=== PATIENT | female | born 1945 | race Hispanic/Latino ===

== ENCOUNTER 2016-06-29 06:09 | Day surgery (SDC) | payer MEDICARE ==
[2016-06-14 13:34] VITALS: BMI 29.6
[2016-06-29 06:38] LABS: ADD MANUAL DIFF? NO
[2016-06-29] MEDS ORDERED: Phenylephrine 10 mg/ml Inj ONE (06:38)
[2016-06-29] MEDS ORDERED: Iodixanol 320 MG/ML 100 ML BOTTLE IV ONE (06:38)
[2016-06-29] MEDS ORDERED: Lidocaine 2% Inj (20ml) ONE (06:38)
[2016-06-29] MEDS ORDERED: Iohexol 350mgl/ml 50 ML ONE (06:38)
[2016-06-29] MEDS ORDERED: Nitroglycerin 50mg in D5W 0 ML IV ONE (06:39)
[2016-06-29] MEDS ORDERED: Iodixanol 320 MG/ML 200 ML BOTTLE IV ONE (06:39)
[2016-06-29 06:48] LABS: BASO # 0.03 K/mm3 (0.0-2.0); BASO % 0.5 % (0.0-3.0); EOS # 0.1 (0.0-0.7); EOS % 1.7 % (1.5-5.0); GRAN # 4.02 (1.4-6.5); GRAN % 67.2 % (50.0-68.0); HEMATOCRIT 42.9 % (36.0-48.0); LYMPH # 1.4 (1.2-3.4); LYMPH % 24.1 % (22.0-35.0); MEAN CELL VOLUME 90.5 fL (80.0-105.0); MEAN CORPUSCULAR HEMOGLOBIN 30.8 pg (25.0-35.0); MEAN PLATELET VOLUME 9.1 fl (7.0-11.0); MONO # 0.4 (0.1-0.6); MONO % 6.5 % (1.0-6.0); PLATELET COUNT 237 10^3/uL (120.0-450.0); RED CELL DISTRIBUTION WIDTH 14.6 % (11.5-14.5)
[2016-06-29 06:52] LABS: BLOOD UREA NITROGEN 4 mg/dL (7-21); CALCIUM 9.3 mg/dL (8.4-10.5); CARBON DIOXIDE 28 mmol/L (21-33); CHLORIDE 100 mmol/L (98-107); CHOLESTEROL 166 mg/dL (130-200); GFR AFRICAN-AMERICAN > 60; GLUCOSE,RANDOM 94 mg/dL (70-110); SODIUM 136 mmol/L (132-148)
[2016-06-29 06:58] LABS: INR 1.07 (0.93-1.08); PARTIAL THROMBOPLASTIN TIME 29.2 Seconds (23.7-30.8)
[2016-06-29] MEDS ORDERED: Midazolam 2 MG/2 ML VIAL ONE (07:27)
--- NOTE | 2016-06-29 07:31 | HP ---
REASON FOR ADMISSION: Left heart catheterization, possible angioplasty because of abnormal stress te st. BRIEF CLINICAL HISTORY: A 70-year-old female with past medical history significant for chronic atria l fibrillation on Coumadin, complaining of chest pain off and on, underwent a stress test that shows abnormal, so patient is scheduled for cardiac catheterization after holding Coumadin for 5 days. PAST MEDICAL HISTORY: Significant for hypertension, chronic atrial fibrillation, COPD. Recent cardiac workup as follows: The patient underwent a stress test dated 06/14/2016 that showed ab normal SPECT myocardial perfusion study, partially reversible apical defect suspicious of residual is chemia, ejection fraction 37%. When comparison was made from earlier stress test 04/26/2015, previousl y noted apical defect appears smaller in the current study. The patient underwent echocardiography o n 06/01/2016 that shows no prolapse, no IHSS, ejection fraction 35%, mild to moderate aortic stenosis, aortic valve area 1.2 cm2, mild mitral regurgitation, mild tricuspid regurgitation. ALLERGIES: AZITHROMYCIN. CURRENT MEDICATIONS: Famotidine, Pepcid, albuterol, alprazolam, Xanax 0.5 mg, potassium chloride 10 mEq, metoprolol tartrate 25 mg b.i.d., lisinopril 2.5 mg daily, Lasix 40 mg daily, Cardizem 120 mg da adam, warfarin 5 mg daily, Pravachol 40 mg daily, albuterol inhaler one dose, Pulmicort Flexhaler. REVIEW OF SYSTEMS: As per HPI. PHYSICAL EXAMINATION: VITAL SIGNS: Temperature afebrile, heart rate 60, blood pressure 130/80, height of the patient 5 fee t 2 inches. Weight of the patient 162 pounds, body mass index 29.6 kg/m2. HEENT: PERRLA. Extraocular muscles intact. NECK: Supple. No carotid bruits. No thyromegaly. CHEST: Clear to auscultation. HEART: S1, S2 regular. ABDOMEN: Soft. EXTREMITIES: Clubbing and cyanosis negative. BLOOD WORKUP: Pending. IMPRESSION: Abnormal stress test, ejection fraction 37%. Echo shows ejection fraction 35%, mild to moderate aortic stenosis, cardiomyopathy not clear, possibly ischemic, chronic atrial fibrillat ion, mitral regurgitation, tricuspid regurgitation, aortic stenosis, hypertension, hyperlipidemia. RECOMMENDATION: We will give 300 mg of Plavix, 325 of aspirin, will discuss with the patient. If patient agrees, we will proceed for cardiac catheterization. Further recommendation after the ca rdiac catheterization. We will follow with you. Will discuss the benefits and alternatives. If patient agrees, will proceed for cardiac catheterizat ion. We will follow with you. Thank you, Dr. Casas, for providing us the opportunity in taking care of the patient. Mak Mendez MD cc: [id number] TT: 06/28/2016 20:19:48 filipe
[2016-06-29 07:36] VITALS: RESP 18
[2016-06-29] MEDS ORDERED: Sodium Chloride 0.9% 1,000 ML IV SCH (09:00)
[2016-06-29 09:16] VITALS: TEMP 97.4
[2016-06-29 14:03] VITALS: BP 121/91; PULSE 92; O2SAT 96
[2016-06-29] MEDS ORDERED: Albuterol-Ipratrop 3 mg / 0.5 (3 ml) UD IH STA (15:03)
[2016-06-29] MEDS ORDERED: Albuterol-Ipratrop 3 mg / 0.5 (3 ml) UD ONE (15:07)
--- NOTE | 2016-06-29 19:00 | CARD ---
APPROVED REPORT Procedure(s) performed: Left Heart Catheterization HISTORY The patient is a 70 year-old female with a history of : previous CHF, hypertension , dyslipidemia , A Fib , CMP, andabnormal stress test and Mild to moderate by Echo.. INDICATION The indication(s) include : atrial fibrillation, dyspnea. CASE TECHNIQUE The patient was brought electively to the Cardiac Catheterization Laboratory in a fasting state and was prepped and draped in a sterile manner. The left femoral groin was infiltrated with 2% Lidocaine subcutaneous anesthesia. A 6 Fr x 11 cm Cuca sheath was inserted into the left femoral artery without difficulty. Coronary angiography was performed using coronary diagnostic catheters. The left coronary system was accessed and visualized with a Diagnostic ,JL3.5,5Fr catheter. The right coronary system was accessed and visualized with a Diagnostic ,Jr 3.5,5Fr catheter. The left ventricle was accessed and visualized with a Pigtail catheter. Left ventricular/Aortic Valve gradient assessed on pullback. Left ventriculogram was performed in GEORGE projection. Closure device was deployed with a 6 Fr / 7 Fr MynxGrip without any complications. The patient tolerated the procedure well and there were no complications associated with the procedure. Vessel Analysis The patient's coronary anatomy is right dominant. The left main coronary artery is a medium size vessel without significant stenosis. The left main bifurcates to the left anterior descending and circumflex. The left anterior descending artery is a medium size vessel with diffuse calcification noted throughout this vessel and with significant stenosis. Distally diffuse disease There is a 60% stenosis in the distal segment. No focal stenosis, non flow limiting The first diagonal branch is a medium size vessel with diffuse calcification noted throughout this vessel and without significant stenosis. The second diagonal branch is a medium size vessel with diffuse calcification noted throughout this vessel and without significant stenosis. The circumflex artery is a medium size vessel with diffuse calcification noted throughout this vessel and without significant stenosis. The first obtuse marginal branch is a medium size vessel with diffuse calcification noted throughout this vessel and without significant stenosis. The right coronary artery is a medium size vessel with diffuse calcification noted throughout this vessel and without significant stenosis. The right posterior descending artery is a medium size vessel with diffuse calcification noted throughout this vessel and without significant stenosis. Left Ventricle The left ventricle is Borderline enlarged in size with moderately decreased contractility. Non-Ischemic cardiomyopathy. The left ventricular ejection fraction is estimated to be 35-40%. The left ventricular end diastolic pressure is 20 mmHg. There was no gradient across the aortic valve upon pullback. Conclusion Non obstructive CAD, Limited to very distal LAD, diffusely diseased like a thred, but no focal flow limiting stenosis noted. Moderately decreased LV Fx. EF-35-40%, EDp-20 mmof Hg Non ischemic CMP Chronic A Fib Recommendations Aggressive Medical Therapy Dig diuretic, LADARIUS, Coreg and coumadin F/U EF% in 3-6 months, if remains <35%. may consider AICD. F/u PT/INR on sunday with you. Cc; Dr. Casas
== END 2016-06-29 16:00 | disposition home or self-care (01) ==
LOC: CATH 06:09
PROVIDERS: ATTEND Internal Medicine Cardiovascular Disease
DX: I25.10 Atherosclerotic heart disease of native coronary artery without angina pectoris (principal); I42.9 Cardiomyopathy, unspecified; I48.2 Chronic atrial fibrillation; I11.0 Hypertensive heart disease with heart failure; I50.9 Heart failure, unspecified; J44.9 Chronic obstructive pulmonary disease, unspecified; I08.3 Combined rheumatic disorders of mitral, aortic and tricuspid valves; E78.5 Hyperlipidemia, unspecified; Z79.01 Long term (current) use of anticoagulants
CPT/HCPCS: 36415; 80048; 80061; 85025; 85610; 85730; 86850; 86900; 93458; 94640; 99152; C1760; C1769 ×2; C2629; J1644; J1940; J2250; J3010; J7040

== ENCOUNTER 2016-07-11 05:33 | Inpatient (IN) | payer MEDICARE, OTHER ==
[2016-07-11 05:38] VITALS: BMI 30.9
[2016-07-11] MEDS ORDERED: Albuterol-Ipratrop 3 mg / 0.5 (3 ml) UD IH STA (05:41)
--- NOTE | 2016-07-11 05:46 | ED PDOC ---
Arrival/HPI - General Time Seen by Provider: 07/11/16 05:41 Historian: Patient - History of Present Illness Narrative History of Present Illness (Text): 07/11/16 05:43 Alecia Arciniega is a 70 year old female, with a history of COPD, presents to the emergency department complaining of shortness of breath and chest pressure which began few hours prior. Patient states she used nebs at home for minimal relief. Reports symptoms are similar to previous COPD exacerbation episodes. Denies fever, chills, headache, dizziness, nausea,vomiting, diarrhea, or any other complaints at this time. Time/Duration: 1-3 hours Symptom Onset: Sudden Symptom Course: Unchanged Severity Level: Mild Activities at Onset: Light Context: Home Past Medical History - Provider Review Nursing Documentation Reviewed: Yes - Infectious Disease Hx of Infectious Diseases: None - Cardiac Hx Pacemaker: No - Pulmonary Hx Chronic Obstructive Pulmonary Disease (COPD): Yes - Neurological Hx Paralysis: No - Hematological/Oncological Hx Blood Transfusions: No - Musculoskeletal/Rheumatological Hx Musculoskeletal Disorders: No - Gastrointestinal Hx Gastrointestinal Disorders: Yes Hx Gastroesophageal Reflux: Yes - Psychiatric Hx Emotional Abuse: No Hx Physical Abuse: No Hx Substance Use: No - Surgical History Hx Angiogram: Yes Hx Cardiac Catheterization: Yes - Anesthesia Hx Anesthesia Reactions: No Hx Malignant Hyperthermia: No - Suicidal Assessment Feels Threatened In Home Enviroment: No Family/Social History - Physician Review Nursing Documentation Reviewed: Yes Family/Social History: No Known Family HX Smoking Status: Current Some Days Smoker Hx Alcohol Use: No Hx Substance Use: No Allergies/Home Meds Allergies/Adverse Reactions: Allergies azithromycin [From Zithromax] Adverse Reaction (Intermediate, Verified 06/27/16 11:22) RASH "JUST DOES NOT WORK" Home Medications: Home Meds Medication Instructions Recorded Confirmed Pravastatin Sodium [Pravachol] 40 mg PO DAILY 04/22/15 07/11/16 ALPRAZolam [Xanax] 0.5 mg PO TID PRN 04/28/15 07/11/16 Famotidine [Pepcid] 20 mg PO BID 04/28/15 07/11/16 Furosemide [Lasix] 40 mg PO DAILY PRN 04/28/15 07/11/16 Lisinopril [Zestril] 2.5 mg PO DAILY 04/28/15 07/11/16 Metoprolol Tartrate [Lopressor] 25 mg PO BID 04/28/15 07/11/16 Potassium Chloride [Klor-Con 10] 10 meq PO DAILY PRN 04/28/15 07/11/16 [id number] CD [Cardizem CD] 120 mg PO DAILY 04/28/15 07/11/16 Albuterol HFA [Ventolin HFA 90 1 puff IH Q6 PRN 06/23/15 07/11/16 mcg/actuation (8 g)] Warfarin Sodium [Jantoven] 5 mg PO Q6XW 05/14/16 07/11/16 Albuterol/Ipratropium [Duoneb 3 1 dose NEB TID 06/27/16 07/11/16 mg/0.5 mg (3 ml) UD] Budesonide [Pulmicort Flexhaler] 90 mcg IH TID 06/27/16 07/11/16 Review of Systems - Physician Review All systems were reviewed & negative as marked: Yes - Review of Systems Constitutional: Normal. absent: Fatigue, Fevers Respiratory: SOB. absent: Cough, Sputum Cardiovascular: Chest Pain (chest pressure ) Gastrointestinal: Normal. absent: Abdominal Pain, Diarrhea, Nausea, Vomiting Musculoskeletal: Normal Neurological: Normal. absent: Headache, Dizziness Psychiatric: Normal Physical Exam Vital Signs Reviewed: Yes Vital Signs Temp Pulse Resp BP Pulse Ox 07/11/16 15:00 91 H 18 127/64 95 07/11/16 13:13 97.6 F 106 H 18 119/42 L 07/11/16 13:00 116 H 18 128/70 94 L 07/11/16 12:26 117 H 148/84 07/11/16 10:48 106 H 18 119/42 L 97 07/11/16 09:34 128/83 07/11/16 07:37 97.6 F 98 H 18 123/80 94 L 07/11/16 07:15 98 H 18 130/87 93 L 07/11/16 06:15 18 07/11/16 05:50 97.5 F L 103 H 18 122/84 98 Temperature: Afebrile Blood Pressure: Normal Pulse: Regular Respiratory Rate: Normal Appearance: Positive for: Well-Appearing, Non-Toxic, Comfortable Pain Distress: None Mental Status: Positive for: Alert and Oriented X 3 - Systems Exam Head: Present: Atraumatic, Normocephalic Pupils: Present: PERRL Conjunctiva: Present: Normal Respiratory/Chest: Present: Clear to Auscultation, Good Air Exchange. No: Respiratory Distress, Accessory Muscle Use Cardiovascular: Present: Regular Rate and Rhythm, Normal S1, S2. No: Murmurs Abdomen: Present: Normal Bowel Sounds. No: Tenderness, Distention, Peritoneal Signs Upper Extremity: Present: Normal Inspection. No: Cyanosis, Edema Lower Extremity: Present: Normal Inspection. No: Edema Neurological: Present: GCS=15, CN II-XII Intact, Speech Normal, Motor Func Grossly Intact, Normal Sensory Function Skin: Present: Warm, Dry, Normal Color. No: Rashes Psychiatric: Present: Alert, Oriented x 3, Normal Insight, Normal Concentration Medical Decision Making ED Course and Treatment: 07/11/16 05:48 Impression: A 70 year old female who presents to the emergency department complaining of shortness of breath. Plan: -- EKG -- Labs, cardiac enzymes -- CXR -- Duoneb -- Solumedrol Progress Notes: 07/11/16 05:49 A-fib @ 91 bpm. case dw/ dr geiger accepts case for tel eobs 07/13/16 23:20 - Lab Interpretations Lab Results: 07/12/16 07:00 07/12/16 07:00 Lab Results 07/12/16 07:00: WBC 10.4 D, RBC 4.60, Hgb 13.8, Hct 40.7, MCV 88.5, MCH 30.0, MCHC 33.9, RDW 14.3, Plt Count 297, MPV 9.2, Gran % 86.7 H, Lymph % (Auto) 9.1 L , [place] % (Auto) 4.2, Eos % (Auto) 0.0 L, Baso % (Auto) 0.0, Gran # 9.00 H, Lymph # 0.9 L, [place] # 0.4, Eos # 0.0, Baso # 0.00, PT 19.3 H, INR 1.79 H, Sodium 135, Potassium 3.8, Chloride 96, Carbon Dioxide 30, Anion Gap 13, BUN 12 , Creatinine 0.6, Est GFR ( Amer) > 60, Est GFR (Non-Af Amer) > 60, Random Glucose 114 H, Hemoglobin A1c 6.0, Calcium 9.5, Phosphorus 4.3, Magnesium 1.6 L, Total Bilirubin 0.4, AST 31, ALT 39, Alkaline Phosphatase 58, Total Protein 6.7, Albumin 4.1, Globulin 2.6, Albumin/Globulin Ratio 1.6, Triglycerides 60, Cholesterol 168, LDL Cholesterol Direct 66, HDL Cholesterol 91 H, TSH 3rd Generation 1.5, Digoxin < 0.4 L 07/11/16 22:00: Urine Color Yellow, Urine Appearance Clear, Urine pH 6.0, Ur Specific [place] 1.010, Urine Protein Negative, Urine Glucose (UA) Negative, Urine Ketones Negative, Urine Blood Negative, Urine Nitrate Negative, Urine Bilirubin Negative, Urine Urobilinogen 1.0 H, Ur Leukocyte Esterase Negative 07/11/16 14:00: Lactate Dehydrogenase 573, Total Creatine Kinase 100, Troponin I < 0.01 07/11/16 07:00: pO2 43, VBG pH 7.34, VBG pCO2 55.0, VBG HCO3 29.7 H, VBG Total CO2 31.4 H, VBG O2 Sat (Calc) 83.8 H, VBG Base Excess 2.6 H, VBG Potassium 4.0, Glucose 108 H, Lactate 1.0, FiO2 21.0, Sodium 134.0, Chloride 102.0, Venous Blood Potassium 4.0 07/11/16 06:00: PT 15.2 H, INR 1.41 H 07/11/16 05:30: WBC 6.2, RBC 4.49, Hgb 13.9, Hct 40.7, MCV 90.6, MCH 31.0, MCHC 34.2, RDW 14.6 H, Plt Count 281, MPV 9.0, Gran % 62.3, Lymph % (Auto) 28.2, [place] % (Auto) 6.3 H, Eos % (Auto) 2.6, Baso % (Auto) 0.6, Gran # 3.87, Lymph # 1.8, [place] # 0.4, Eos # 0.2, Baso # 0.04, Sodium 136, Potassium 4.0, Chloride 98 , Carbon Dioxide 31, Anion Gap 11, BUN 9, Creatinine 0.6, Est GFR ( Amer ) > 60, Est GFR (Non-Af Amer) > 60, Random Glucose 95, Calcium 9.1, Total Bilirubin 0.7, AST 40 H, ALT 46, Alkaline Phosphatase 53, Lactate Dehydrogenase 634, Total Creatine Kinase 141, Troponin I < 0.01, NT-Pro-B Natriuret Pep 1710 H , Total Protein 6.5, Albumin 3.8, Globulin 2.7, Albumin/Globulin Ratio 1.4 - RAD Interpretation Radiology Orders: 07/11/16 05:43 CHEST PORTABLE [RAD] Stat - Medication Orders Current Medication Orders: Discontinued Medications Albuterol/Ipratropium (Duoneb 3 Mg/0.5 Mg (3 Ml) Ud) 3 ml IH STAT STA Stop: 07/11/16 05:42 Last Admin: 07/11/16 06:07 Dose: 3 ML Albuterol/Ipratropium (Duoneb 3 Mg/0.5 Mg (3 Ml) Ud) 3 ml IH [id number] PRN PRN Reason: Shortness of Breath Stop: 07/11/16 19:31 Last Admin: 07/11/16 11:30 Dose: 3 ML Alprazolam (Xanax) 0.5 mg PO STAT STA PRN Reason: Protocol Stop: 07/11/16 11:35 Last Admin: 07/11/16 11:38 Dose: 0.5 MG Behavioural Document 07/11/16 11:38 SRE (Rec: 07/11/16 11:38 SRE [facility] [id number] Maintenance Maintenance Dose No Nonmedicinal Nonmedicinal Interventions See nurse's notes Behavior Behavior for Medication: Anxiety Alprazolam (Xanax) 0.5 mg PO TID PRN; Protocol PRN Reason: Anxiety Stop: 07/18/16 12:02 Last Admin: 07/13/16 11:49 Dose: 0.5 MG Behavioural Document 07/13/16 11:49 RS (Rec: 07/13/16 11:50 RS [facility] [id number]) Maintenance Maintenance Dose Yes Atorvastatin Calcium (Lipitor) 20 mg PO DAILY [facility] Last Admin: 07/13/16 09:57 Dose: 20 MG Digoxin (Lanoxin) 0.25 mg IVP STAT STA Stop: 07/11/16 12:09 Last Admin: 07/11/16 12:24 Dose: 0.25 MG MAR Apical Pulse Rate Document 07/11/16 12:24 JOL (Rec: 07/11/16 12:25 JOL [id number]) Apical Pulse Rate Apical Pulse Rate (60-90 beats/min) 117 IVP Administration Document 07/11/16 12:24 JOL (Rec: 07/11/16 12:25 [id number] [id number]) Charges for Administration # of IVP Administrations 1 Digoxin (Lanoxin) 0.25 mg PO 1400 [facility] Last Admin: 07/12/16 14:32 Dose: 0.25 MG MAR Apical Pulse Rate Document 07/12/16 14:32 HD (Rec: 07/12/16 14:32 HD [facility] [id number]) Apical Pulse Rate Apical Pulse Rate (60-90 beats/min) 98 Diltiazem HCl (Cardizem Cd) 120 mg PO DAILY [facility] Last Admin: 07/13/16 09:57 Dose: 120 MG MAR Pulse and Blood Pressure Document 07/13/16 09:57 RS (Rec: 07/13/16 09:57 RS [facility] [id number]) Blood Pressure Blood Pressure (100/60-150/90) 149/100 Doxycycline Hyclate (Doryx) 100 mg PO Q12 [facility] PRN Reason: Protocol Last Admin: 07/13/16 09:57 Dose: 100 MG Enoxaparin Sodium (Lovenox) 70 mg SC Q12H [facility] PRN Reason: Protocol Stop: 07/12/16 02:00 Last Admin: 07/12/16 00:00 Dose: 70 MG Subcutaneous Administrations Document 07/12/16 00:00 LGA (Rec: 07/12/16 00:00 LGA [id number]) Injection Site MAR Injection Site Left Abdomen Charges for Administration # of Subcutaneous Administrations 1 Famotidine (Pepcid) 20 mg PO BID [facility] Last Admin: 07/13/16 09:57 Dose: 20 MG Furosemide (Lasix) 40 mg IVP Q12 [facility] Last Admin: 07/12/16 10:51 Dose: 40 MG MAR Blood Pressure Document 07/12/16 10:51 HD (Rec: 07/12/16 10:51 HD [facility] [id number]) Blood Pressure Blood Pressure (100/60-150/90) 143/5 IVP Administration Document 07/12/16 10:51 HD (Rec: 07/12/16 10:51 HD [facility] [id number]) Charges for Administration # of IVP Administrations 1 Furosemide (Lasix) 40 mg IVP 0600,1800 [facility] Last Admin: 07/13/16 06:17 Dose: 40 MG MAR Blood Pressure Document 07/13/16 06:17 KTB (Rec: 07/13/16 06:17 KTB [id number]) Blood Pressure Blood Pressure (100/60-150/90) 149/100 IVP Administration Document 07/13/16 06:17 KTB (Rec: 07/13/16 06:17 KTB [id number]) Charges for Administration # of IVP Administrations 1 Furosemide (Lasix) 40 mg PO DAILY [facility] Levalbuterol HCl (Xopenex) 0.63 mg IH [id number] PRN PRN Reason: Shortness of Breath Last Admin: 07/13/16 13:37 Dose: 0.63 MG Lisinopril (Zestril) 2.5 mg PO DAILY [facility] Last Admin: 07/13/16 09:57 Dose: 2.5 MG MAR Pulse and Blood Pressure Document 07/13/16 09:57 RS (Rec: 07/13/16 09:57 RS [facility] [id number]) Pulse Pulse Rate (60-90) 86 Blood Pressure Blood Pressure (100/60-150/90) 149/100 Magnesium Citrate (Citrate Of Mag) 300 ml PO ONCE ONE Stop: 07/12/16 09:04 Last Admin: 07/12/16 10:51 Dose: 300 ML Magnesium Oxide (Mag-Ox) 400 mg PO ONCE ONE Stop: 07/12/16 13:22 Last Admin: 07/12/16 14:31 Dose: 400 MG Magnesium Oxide (Mag-Ox) 400 mg PO ONCE ONE Stop: 07/13/16 10:41 Last Admin: 07/13/16 11:15 Dose: 400 MG Methylprednisolone (Solu-Medrol) 125 mg IVP STAT STA Stop: 07/11/16 05:42 Last Admin: 07/11/16 06:07 Dose: 125 MG IVP Administration Document 07/11/16 06:07 ANNIE (Rec: 07/11/16 06:07 ANNIE [facility] [id number]) Charges for Administration # of IVP Administrations 1 Methylprednisolone (Solu-Medrol) 40 mg IVP Q12 [facility] Last Admin: 07/13/16 09:58 Dose: 40 MG IVP Administration Document 07/13/16 09:58 RS (Rec: 07/13/16 09:58 RS [id number]) Charges for Administration # of IVP Administrations 1 Metoprolol Tartrate (Lopressor) 25 mg PO BID [facility] Last Admin: 07/13/16 09:56 Dose: 25 MG MAR Pulse and Blood Pressure Document 07/13/16 09:56 RS (Rec: 07/13/16 09:57 RS [id number]) Pulse Pulse Rate (60-90) 86 Blood Pressure Blood Pressure (100/60-150/90) 149/100 Pneumococcal Polyvalent Vaccine (Pneumovax 23 Vaccine) 0.5 ml IM .ONCE ONE Stop: 07/11/16 13:23 Last Admin: 07/12/16 07:43 Dose: Warfarin Sodium (Coumadin) 4 mg PO 1800 NORA PRN Reason: Protocol Warfarin Sodium (Coumadin) 5 mg PO 1800 NORA PRN Reason: Protocol Last Admin: 07/12/16 17:21 Dose: 5 MG - [place] Statement The provider has reviewed the documentation as recorded by the Niraj Goodwin Provider Attestation: All medical record entries made by the Niraj were at my direction and personally dictated by me. I have reviewed the chart and agree that the record accurately reflects my personal performance of the history, physical exam, medical decision making, and the department course for this patient. I have also personally directed, reviewed, and agree with the discharge instructions and disposition. Disposition/Present on Arrival - Present on Arrival Any Indicators Present on Arrival: No History of DVT/PE: No History of Uncontrolled Diabetes: No Urinary Catheter: No History Surgical Site Infection Following: None - Disposition Have Diagnosis and Disposition been Completed?: Yes Diagnosis: COPD (chronic obstructive pulmonary disease) Disposition: HOSPITALIZED Disposition Time: 07:30 Patient Problems: Current Active Problems Problem Status Diagnosed Anxiety Acute CHF (congestive heart failure) Chronic COPD (chronic obstructive pulmonary disease) Chronic Condition: GOOD
[2016-07-11 06:14] LABS: ADD MANUAL DIFF? NO
[2016-07-11 06:23] LABS: BASO # 0.04 K/mm3 (0.0-2.0); BASO % 0.6 % (0.0-3.0); EOS # 0.2 (0.0-0.7); EOS % 2.6 % (1.5-5.0); GRAN # 3.87 (1.4-6.5); GRAN % 62.3 % (50.0-68.0); HEMATOCRIT 40.7 % (36.0-48.0); LYMPH # 1.8 (1.2-3.4); LYMPH % 28.2 % (22.0-35.0); MEAN CELL VOLUME 90.6 fL (80.0-105.0); MEAN CORPUSCULAR HGB CONC 34.2 g/dl (31.0-37.0); MONO # 0.4 (0.1-0.6); MONO % 6.3 % (1.0-6.0); PLATELET COUNT 281 10^3/uL (120.0-450.0); RED CELL DISTRIBUTION WIDTH 14.6 % (11.5-14.5); WHITE BLOOD COUNT 6.2 10^3/ul (4.5-11.0)
[2016-07-11 06:28] LABS: ALB/GLOB RATIO 1.4 (1.1-1.8); ALKALINE PHOSPHATASE 53 U/L (38-133); ALT/SGPT 46 U/L (7-56); AST/SGOT 40 U/L (15-39); BILIRUBIN,TOTAL 0.7 mg/dL (0.2-1.3); BLOOD UREA NITROGEN 9 mg/dL (7-21); CALCIUM 9.1 mg/dL (8.4-10.5); CARBON DIOXIDE 31 mmol/L (21-33); CHLORIDE 98 mmol/L (98-107); GFR AFRICAN-AMERICAN > 60; GLUCOSE,RANDOM 95 mg/dL (70-110); SODIUM 136 mmol/L (132-148); TOTAL PROTEIN 6.5 g/dL (5.8-8.3)
[2016-07-11 07:07] LABS: TROPONIN I < 0.01 ng/mL
[2016-07-11 07:25] LABS: VENOUS BLOOD GAS BASE EXCESS 2.6 mmol/L (0.0-2.0); VENOUS BLOOD PH 7.34 (7.32-7.43)
--- NOTE | 2016-07-11 08:19 | CP.PCM.HP ---
<Amado Mayes - Last Filed: 07/11/16 08:42> History of Present Illness - History of Present Illness History of Present Illness: Alecia Arciniega is a 70 year old female, with a history of COPD, CHF, Afib presents to the emergency department complaining of shortness of breath and chest pressure which began few hours prior. It woke her up this morning. Patient states she used nebs and Ventolin at home for minimal relief. Reports symptoms are similar to previous COPD exacerbation episodes. She also reports pedal edema that started a few days ago and took Lasix yesterday. Denies fever, chills, headache, dizziness, nausea,vomiting, diarrhea, syncopy, LOC or any other complaints at this time. She recently had cardiac catherization shows , non occlusive CAD on LAD, EF 35-40%. PMH: Afib, COPD, CHF PSH: L lung resection for nodule SS: Lives at home by herself, Smoker, occasional drinker PMD: Mutterperl Cario: Andrea Pulm: Adriana Present on Admission - Present on Admission Any Indicators Present on Admission: No Review of Systems - Review of Systems Review of Systems: See HPI Past Patient History - Infectious Disease Hx of Infectious Diseases: None - Past Medical History & Family History Past Medical History?: Yes - Past Social History Smoking Status: Current Some Days Smoker - CARDIAC Hx Pacemaker: No - PULMONARY Hx Chronic Obstructive Pulmonary Disease (COPD): Yes - NEUROLOGICAL Hx Paralysis: No - HEMATOLOGICAL/ONCOLOGICAL Hx Blood Transfusions: No - MUSCULOSKELETAL/RHEUMATOLOGICAL Hx Musculoskeletal Disorders: No - GASTROINTESTINAL Hx Gastrointestinal Disorders: Yes Hx Gastroesophageal Reflux: Yes - PSYCHIATRIC Hx Emotional Abuse: No Hx Physical Abuse: No Hx Substance Use: No - SURGICAL HISTORY Hx Angiogram: Yes Hx Cardiac Catheterization: Yes - ANESTHESIA Hx Anesthesia Reactions: No Hx Malignant Hyperthermia: No Meds Allergies/Adverse Reactions: Allergies Allergy/AdvReac Type Severity Reaction Status Date / Time azithromycin [From Zithromax] AdvReac Intermediate RASH Verified 06/27/16 11:22 Physical Exam - Constitutional Appears: No Acute Distress - Head Exam Head Exam: ATRAUMATIC, NORMAL INSPECTION, NORMOCEPHALIC - Eye Exam Eye Exam: EOMI, Normal appearance, PERRL Pupil Exam: NORMAL ACCOMODATION, PERRL - ENT Exam ENT Exam: Mucous Membranes Moist, Normal Exam - Neck Exam Neck exam: Positive for: Normal Inspection - Respiratory Exam Respiratory Exam: Clear to Auscultation Bilateral, NORMAL BREATHING PATTERN - Cardiovascular Exam Cardiovascular Exam: REGULAR RHYTHM - GI/Abdominal Exam GI & Abdominal Exam: Normal Bowel Sounds, Soft. absent: Tenderness - Extremities Exam Extremities exam: Positive for: full ROM, normal capillary refill, pedal edema, pedal pulses present. Negative for: tenderness - Back Exam Back exam: NORMAL INSPECTION - Neurological Exam Neurological exam: Alert, CN II-XII Intact, Normal Gait, Oriented x3, Reflexes Normal - Psychiatric Exam Psychiatric exam: Normal Affect, Normal Mood - Skin Skin Exam: Dry, Intact, Normal Color, Warm Results - Vital Signs Recent Vital Signs: Last Vital Signs Temp 97.6 F 07/11/16 07:37 Pulse 98 H 07/11/16 07:37 Resp 18 07/11/16 07:37 BP 123/80 07/11/16 07:37 Pulse Ox 94 L 07/11/16 07:37 - Labs Result Diagrams: 07/11/16 05:30 07/11/16 05:30 Assessment & Plan - Assessment and Plan (Free Text) Assessment: SOB h/o COPD and CHF CXR: No acute disease EKG: Afib O2sat : 93-98% AB.34/55/43/29.7 -Duoneb PRN -O2 NC -Ventolin -Pulmocort -Hydrocortisone -Lasix -Labs -Cardio c/s: Dr. Mendez -Pulm c/s : Dr. Wright AFib -Coumadin -Cardizem CAD -Statin HTN -Lopressor -Lisinopril Anxiety -Xanax ppx: Pepcid, Coumadin, HHD <Shonda Rodriguez B - Last Filed: 07/12/16 17:49> Results - Vital Signs Recent Vital Signs: Last Vital Signs Temp 97.7 F 07/12/16 12:00 Pulse 102 H 07/12/16 12:00 Resp 21 07/12/16 12:00 BP 143/86 07/12/16 12:00 Pulse Ox 96 07/12/16 06:00 - Labs Result Diagrams: 07/12/16 07:00 07/12/16 07:00 Labs: Laboratory Results - last 24 hr 07/11/16 07/12/16 22:00 07:00 WBC 10.4 D RBC 4.60 Hgb 13.8 Hct 40.7 MCV 88.5 MCH 30.0 MCHC 33.9 RDW 14.3 Plt Count 297 MPV 9.2 Gran % 86.7 H Lymph % (Auto) 9.1 L Al[place] % (Auto) 4.2 Eos % (Auto) 0.0 L Baso % (Auto) 0.0 Gran # 9.00 H Lymph # 0.9 L Alpine # 0.4 Eos # 0.0 Baso # 0.00 PT 19.3 H INR 1.79 H Sodium 135 Potassium 3.8 Chloride 96 Carbon Dioxide 30 Anion Gap 13 BUN 12 Creatinine 0.6 Est GFR ( Amer) > 60 Est GFR (Non-Af Amer) > 60 Random Glucose 114 H Hemoglobin A1c 6.0 Calcium 9.5 Phosphorus 4.3 Magnesium 1.6 L Total Bilirubin 0.4 AST 31 ALT 39 Alkaline Phosphatase 58 Total Protein 6.7 Albumin 4.1 Globulin 2.6 Albumin/Globulin Ratio 1.6 Triglycerides 60 Cholesterol 168 LDL Cholesterol Direct 66 HDL Cholesterol 91 H TSH 3rd Generation 1.5 Urine Color Yellow Urine Appearance Clear Urine pH 6.0 Ur Specific [place] 1.010 Urine Protein Negative Urine Glucose (UA) Negative Urine Ketones Negative Urine Blood Negative Urine Nitrate Negative Urine Bilirubin Negative Urine Urobilinogen 1.0 H Ur Leukocyte Esterase Negative Digoxin < 0.4 L Attending/Attestation - Attestation I have personally seen and examined this patient.: Yes I have fully participated in the care of the patient.: Yes I have reviewed all pertinent clinical information: Yes Notes (Text): I have seen and examined the patient with the resident. This is 70 year old female with history of copd, chf, chronic atrial fibrillation, non obstructive cad who got admitted for shortness of breath and found to have copd exacerbation vs anxiety. Continue xopenex, solumedrol and doxycycline. Her INR is subtherapeutic. Cardiology consult appreciated. Patient will be started on lovenox and coumadin. Continue cardizem, digoxin, lisinopril and lopressor. Upon discharge patient will follow up with Dr Parker and Dr Mendez. Dr Shonda Rodriguez
[2016-07-11] MEDS ORDERED: Albuterol-Ipratrop 3 mg / 0.5 (3 ml) UD IH PRN (08:31)
--- NOTE | 2016-07-11 08:58 | RAD ---
HISTORY: Shortness of breath COMPARISON: No prior. FINDINGS: LUNGS: The lungs are hyperinflated and there is peribronchial thickening with chronic changes in both lungs. There is no focal consolidation. PLEURA: No significant pleural effusion identified, no pneumothorax apparent. CARDIOVASCULAR: Normal. OSSEOUS STRUCTURES: No significant abnormalities. VISUALIZED UPPER ABDOMEN: Normal. OTHER FINDINGS: None. IMPRESSION: No active pulmonary disease. COPD.
--- NOTE | 2016-07-11 12:01 | CARD ---
APPROVED REPORT EKG Measurement Heart [id number] <Conclusion> Atrial fibrillation Abnormal ECG
[2016-07-11] MEDS ORDERED: Digoxin 500 mcg/2ml (0.5 mg/2ml) Inj IVP STA (12:08)
[2016-07-11 12:20] LABS: INR 1.41 (0.93-1.08)
[2016-07-11] MEDS: diltiaZEM 120 mg/24 Hours CD Cap PO SCH (12:26)
[2016-07-11] MEDS: Enoxaparin 80 mg Syringe SC SCH ×2 (12:52→14:42)
--- NOTE | 2016-07-11 12:56 | CON ---
DATE: 07/11/2016 SERVICE: Cardiology. REASON FOR CONSULTATION: Shortness of breath, chest pain. BRIEF CLINICAL HISTORY: A 70-year-old female with past medical history significant for COPD, CHF, ch ronic atrial fibrillation, recently had a cardiac catheterization done, nonobstructive coronary arter y disease, cardiomyopathy. The patient said that this morning she woke up with shortness of breath, used a Ventolin inhaler and nebulizer with minimal relief, got nervous so came to the Emergency Room because since she had a cardiac catheterization done, and was told heart muscle was weak, she is very nervous and thinks she is going to . That is why she came to the Emergency Room. Denies any richard st pain, but she claims that with shortness of breath, she feels some chest discomfort, no definite c hest pain. Complained of mild leg swelling as well. PAST MEDICAL HISTORY: Significant for chronic atrial fibrillation on Coumadin, hypertension, COPD. Recent cardiac workup as follows: The patient had a stress test first dated 06/14/2016 that shows abn ormal SPECT myocardial perfusion study, suspicious for ischemia, ejection fraction 37%. The patient had echocardiography 06/01/2016 that shows no prolapse, no IHSS, ejection fraction 35%, mild to moderat e aortic stenosis, valve area 1.2 cm2, mild mitral regurgitation, mild tricuspid regurgitation. That stress test led to the cardiac catheterization dated 06/29/2016 that showed nonobstructive coronary ar kyung disease, limited only to distal LAD, diffusely diseased like a thread, but no focal flow-limitin g stenosis noted. Moderately decreased LV ejection fraction 35%-40%, EDP, end diastolic pressure 20 m mHg, nonischemic CMP, chronic atrial fibrillation, also left ventriculogram ejection fraction of 35%- 40%, left ventricular end diastolic pressure was 20. There was no gradient across the aortic valve o n pullback noted, though with the echo showing mild to moderate aortic stenosis, but on cardiac joshua terization, no gradient across aortic valve noted. At that time, recommendation was made to put aggr essive medical therapy, digoxin, diuretic, LADARIUS inhibitors, Coreg, and Coumadin for atrial fibrillatio n and follow up echo in 3-6 months recommended. If the echo remains still 35%, may consider AICD. T his was recommendation dated 06/29/2016. ALLERGIES: AZITHROMYCIN. CURRENT MEDICATIONS: Famotidine, Pepcid, albuterol, Xanax 0.25 mg 3 times a day, potassium chloride 10 mEq daily, metoprolol tartrate 25 mg twice a day, lisinopril 2.5 mg daily, Lasix 40 mg daily, Card izem 120 mg daily, Coumadin 5 mg daily, Pravachol 40 mg daily, albuterol inhaler 1 dose and Pulmicort inhaler p.r.n. REVIEW OF SYSTEMS: As per HPI. PHYSICAL EXAMINATION: VITAL SIGNS: Temperature afebrile, heart rate 106, blood pressure 119/42. HEENT: PERRLA. Extraocular muscles intact. NECK: Supple. No carotid bruits. No thyromegaly. CHEST: Clear to auscultation. HEART: S1, S2 irregular. ABDOMEN: Soft. EXTREMITIES: Clubbing, cyanosis negative. EKG shows atrial fibrillation, rate of 91. BLOOD WORKUP: WBC 6.2, hemoglobin 13.9, hematocrit 40.7, platelet count 281. Chemistry shows sodium 136, potassium 4, chloride 98, carbon dioxide 31, anion gap of 11, BUN 9, creatinine 0.6, INR not do ne. IMPRESSION: Atrial fibrillation, chronic, rate well controlled, exacerbation of chronic obstructive pulmonary disease, leg edema, cardiomyopathy, nonischemic, status post cardiac catheterization 06/30/19 17, nonobstructive coronary artery disease only limited to very distal left anterior descending, diff usely diseased, but no focal flow-limiting stenosis noted, mild aortic stenosis by echo, but on cath, no gradient across aortic valve noted, mitral regurgitation, tricuspid regurgitation, cardiomyopathy , ejection fraction 35%, chronic obstructive pulmonary disease, nervous patient on Xanax. RECOMMENDATION: We will do a stat PT/INR to adjust the dose of Coumadin. We will discontinue albute rol inhaler to prevent from going into tachycardia. The patient's heart rate is 120 now. Change to Xopenex. Change Primacor to atorvastatin. Continue Lasix as ordered by resident. Start lisinopril, Cardizem 120 mg, metoprolol, give a dose of digoxin IV and start digoxin 0.25 from this afternoon to control the heart rate. We will get echo to assess LV function again and follow up with you. Aggre ssively treat COPD. Will follow with you. Thank you, Dr. Casas/Dr. Shonda Rodriguez, for providing the opportunity in taking care of this patie nt. We will follow. Mak Mendez MD cc: [id number] TT: 07/11/2016 12:55:44 Confirmation # [id number] Dictation # [id number] rn
[2016-07-11] MEDS ORDERED: Pneumococcal 23-Valent Vaccine IM ONE (13:22)
[2016-07-11] MEDS: Digoxin 250 mcg (0.25 mg) Tab PO SCH (14:21)
[2016-07-11 15:46] LABS: TROPONIN I < 0.01 ng/mL
[2016-07-11] MEDS: Levalbuterol 0.63 MG/3 ML Inhal Soln UD IH PRN (18:00)
[2016-07-11] MEDS: MethylPREDNISolone 40 mg Vial IVP SCH (22:01)
[2016-07-11 22:22] LABS: URINE BILIRUBIN NEGATIVE (NEGATIVE); URINE BLOOD NEGATIVE (NEGATIVE); URINE GLUCOSE (UA) NEGATIVE (NEGATIVE); URINE KETONE NEGATIVE (NEGATIVE); URINE LEUKOCYTE ESTERASE NEGATIVE Leu/uL (NEGATIVE); URINE PROTEIN NEGATIVE mg/dL (<30 mg/dL)
[2016-07-11 22:27] LABS: URINE APPEARANCE CLEAR (CLEAR); URINE COLOR YELLOW (YELLOW)
[2016-07-12] MEDS: Enoxaparin 80 mg Syringe SC SCH
[2016-07-12] MEDS: Levalbuterol 0.63 MG/3 ML Inhal Soln UD IH PRN ×4 (00:02→18:45)
[2016-07-12] MEDS ORDERED: Pantoprazole 40 mg EC Tab PO SCH (06:30)
[2016-07-12 08:19] LABS: ADD MANUAL DIFF? NO
[2016-07-12 08:23] LABS: GRAN % 86.7 % (50.0-68.0); HEMATOCRIT 40.7 % (36.0-48.0); LYMPH # 0.9 (1.2-3.4); LYMPH % 9.1 % (22.0-35.0); MEAN CELL VOLUME 88.5 fL (80.0-105.0); MEAN CORPUSCULAR HGB CONC 33.9 g/dl (31.0-37.0); MEAN PLATELET VOLUME 9.2 fl (7.0-11.0); MONO # 0.4 (0.1-0.6); MONO % 4.2 % (1.0-6.0); PLATELET COUNT 297 10^3/uL (120.0-450.0); RED CELL DISTRIBUTION WIDTH 14.3 % (11.5-14.5); WHITE BLOOD COUNT 10.4 10^3/ul (4.5-11.0)
[2016-07-12 08:32] LABS: INR 1.79 (0.93-1.08)
[2016-07-12 08:42] LABS: ALB/GLOB RATIO 1.6 (1.1-1.8); ALKALINE PHOSPHATASE 58 U/L (38-133); ALT/SGPT 39 U/L (7-56); AST/SGOT 31 U/L (15-39); BILIRUBIN,TOTAL 0.4 mg/dL (0.2-1.3); BLOOD UREA NITROGEN 12 mg/dL (7-21); CALCIUM 9.5 mg/dL (8.4-10.5); CARBON DIOXIDE 30 mmol/L (21-33); CHLORIDE 96 mmol/L (95-110); CHOLESTEROL 168 mg/dL (130-200); GFR AFRICAN-AMERICAN > 60; GLUCOSE,RANDOM 114 mg/dL (70-110); MAGNESIUM 1.6 mg/dL (1.7-2.2); PHOSPHOROUS 4.3 mg/dL (2.5-4.5); POTASSIUM 3.8 mmol/L (3.6-5.0); SODIUM 135 mmol/L (132-148); TOTAL PROTEIN 6.7 g/dL (5.8-8.3)
[2016-07-12] MEDS ORDERED: Magnesium Citrate Oral SOL (300 ml) PO ONE (09:03)
--- NOTE | 2016-07-12 10:38 | PN ---
DATE: 07/12/2016 REASON FOR CONSULTATION AND FOLLOWUP: Shortness of breath, acute exacerbation of COPD, atypical richard st pain. BRIEF CLINICAL HISTORY: This is a 70-year-old female with past medical history significant for COPD, CHF, chronic atrial fibrillation, nonischemic cardiomyopathy, status post recently cardiac catheteri zation, nonobstructive coronary artery disease, admitted with COPD exacerbation. The patient feels b [place]. Also, complained of swelling of the leg. PHYSICAL EXAMINATION: VITAL SIGNS: Temperature afebrile, heart rate 98, blood pressure 143/95. HEENT: PERRLA. Extraocular muscles intact. NECK: Supple. No carotid bruits. No thyromegaly. CHEST: Clear to auscultation. HEART: S1, S2 regular. ABDOMEN: Soft. EXTREMITIES: Clubbing and cyanosis negative. BLOOD WORKUP: WBC 10.4, hemoglobin 13.8, hematocrit 40.7, platelet count 297. Chemistry: Sodium 13 5, potassium 3.____, chloride 96, carbon dioxide 30, anion gap of 13, BUN 12, creatinine 0.6. TSH 1. 5. Troponin negative. IMPRESSION: Atypical chest pain, status post cardiac catheterization recently, nonobstructive gonzalez ry artery disease, nonischemic cardiomyopathy; chronic atrial fibrillation, acute exacerbation of chr onic obstructive pulmonary disease; cardiomyopathy, nonischemic. RECOMMENDATION: Continue digoxin, diuretic, LADARIUS inhibitors. Discontinue telemetry. Continue aggres sive treatment for COPD. Will follow with you. INR 1.79; two doses of Lovenox was given as a bridge and resume back Coumadin. Will follow with you. Thank you, Dr. Shonda Rodriguez, for providing the opportunity in taking care of this patient. Will brown w with you. Mak Mendez MD cc: [id number] TT: 07/12/2016 10:37:33 Confirmation # [id number] Dictation # [id number] johanne
[2016-07-12] MEDS: diltiaZEM 120 mg/24 Hours CD Cap PO SCH (10:50)
[2016-07-12] MEDS: MethylPREDNISolone 40 mg Vial IVP SCH ×2 (10:50→21:18)
[2016-07-12] MEDS ORDERED: Magnesium Oxide 400 mg Tab UD PO ONE (13:21)
[2016-07-12] MEDS: Digoxin 250 mcg (0.25 mg) Tab PO SCH (14:32)
[2016-07-12 14:33] VITALS: PULSE 98
--- NOTE | 2016-07-12 17:43 | CARD ---
APPROVED REPORT EXAM: Two-dimensional and M-mode echocardiogram with Doppler and color Doppler. INDICATION LVFX 2D DIMENSIONS Left Atrium (2D)5.0 (1.6-4.0cm)IVSd1.2 (0.7-1.1cm) LVDd4.9 (3.9-5.9cm)PWd1.1 (0.7-1.1cm) LVDs3.6 (2.5-4.0cm)FS (%) 25.8 % LVEF (%)45.0 (>50%) M-Mode DIMENSIONS Aortic Root2.90 (2.2-3.7cm)Aortic Cusp Exc.1.40 (1.5-2.0cm) Aortic Valve AoV Peak Jacxbnww592.0cm/sAoV VTI31.2cmAO Peak GR.16mmHg LVOT Peak Stsjqshf60.5cm/sLVOT VTI13.80cmAO Mean GR.8mmHg Mitral Valve E/A ratio0.0 TDI E/Lateral E'0.0E/Medial E'0.0 Pulmonary Valve PV Peak Oqxkecrf48.1cm/sPV Peak Grad.1mmHg Tricuspid Valve TR Peak Fiaeybor533np/sRAP [id number] Peak Gr.36mmHg [id number] LEFT VENTRICLE The left ventricle is normal size. There is borderline concentric left ventricular hypertrophy. The systolic function is mildly impaired. No left ventricle thrombus noted on this study. RIGHT VENTRICLE The right ventricle is normal size. There is normal right ventricular wall thickness. The right ventricular systolic function is normal. ATRIA The left atrium is moderately dilated. The right atrium is mildly dilated. AORTIC VALVE The aortic valve is not well visualized. MITRAL VALVE Mitral regurgitation is mild. TRICUSPID VALVE There is mild tricuspid regurgitation. There is mild pulmonary hypertension. GREAT VESSELS The aortic root is normal in size. The IVC is normal in size and collapses >50% with inspiration. PERICARDIAL EFFUSION There is a trace loculated anterior pericardial effusion. <Conclusion> The left ventricle is normal size. There is borderline concentric left ventricular hypertrophy. The systolic function is mildly impaired. Mitral regurgitation is mild. There is mild tricuspid regurgitation. There is mild pulmonary hypertension.
--- NOTE | 2016-07-12 18:53 | CP.PCM.PN ---
<Franci Whittington - Last Filed: 07/12/16 18:42> Subjective - Date & Time of Evaluation Date of Evaluation: 07/12/16 Time of Evaluation: 18:43 - Subjective Subjective: HOSPITALIST PROGRESS NOTE Pt is seen and examined at bedside. Pt is getting a breathing treatment during the exam. She denies having any SOB, CP, abd pain, N/V/D/C. Pt is tolerating diet. Objective - Vital Signs/Intake and Output Vital Signs (last 24 hours): Temp Pulse Resp BP Pulse Ox 97.7 F 102 H 21 143/86 96 07/12/16 12:00 07/12/16 12:00 07/12/16 12:00 07/12/16 12:00 07/12/16 06:00 Intake and Output: 07/12/16 07/12/16 06:59 18:59 Intake Total 660 Output Total 300 Balance 360 - Medications Medications: Current Medications Alprazolam (Xanax) 0.5 mg PO TID PRN; Protocol PRN Reason: Anxiety Stop: 07/18/16 12:02 Last Admin: 07/12/16 18:03 Dose: 0.5 mg Atorvastatin Calcium (Lipitor) 20 mg PO DAILY [facility] Last Admin: 07/12/16 10:50 Dose: 20 mg Digoxin (Lanoxin) 0.25 mg PO 1400 [facility] Last Admin: 07/12/16 14:32 Dose: 0.25 mg Diltiazem HCl (Cardizem Cd) 120 mg PO DAILY [facility] Last Admin: 07/12/16 10:50 Dose: 120 mg Doxycycline Hyclate (Doryx) 100 mg PO Q12 [facility] PRN Reason: Protocol Last Admin: 07/12/16 10:51 Dose: 100 mg Famotidine (Pepcid) 20 mg PO BID [facility] Last Admin: 07/12/16 17:20 Dose: 20 mg Furosemide (Lasix) 40 mg IVP Q12 [facility] Last Admin: 07/12/16 10:51 Dose: 40 mg Levalbuterol HCl (Xopenex) 0.63 mg IH [id number] PRN PRN Reason: Shortness of Breath Last Admin: 07/12/16 11:39 Dose: 0.63 mg Lisinopril (Zestril) 2.5 mg PO DAILY [facility] Last Admin: 07/12/16 10:50 Dose: 2.5 mg Methylprednisolone (Solu-Medrol) 40 mg IVP Q12 [facility] Last Admin: 07/12/16 10:50 Dose: 40 mg Metoprolol Tartrate (Lopressor) 25 mg PO BID [facility] Last Admin: 07/12/16 17:21 Dose: 25 mg Warfarin Sodium (Coumadin) 5 mg PO 1800 [facility] PRN Reason: Protocol Last Admin: 07/12/16 17:21 Dose: 5 mg - Labs Labs: 07/12/16 07:00 07/12/16 07:00 PT 19.3 Seconds (9.9-11.8) H 07/12/16 07:00 INR 1.79 (0.93-1.08) H 07/12/16 07:00 - Constitutional Appears: Non-toxic, No Acute Distress - Head Exam Head Exam: ATRAUMATIC - ENT Exam ENT Exam: Mucous Membranes Moist - Respiratory Exam Respiratory Exam: Wheezes (diffusely ). absent: Accessory Muscle Use, Respiratory Distress - Cardiovascular Exam Cardiovascular Exam: REGULAR RHYTHM, +S1, +S2. absent: Gallop, Rubs, Murmur - GI/Abdominal Exam GI & Abdominal Exam: Soft, Normal Bowel Sounds. absent: Distended, Firm, Guarding, Rigid, Tenderness - Extremities Exam Extremities Exam: absent: Pedal Edema, Tenderness - Neurological Exam Neurological Exam: Alert, Awake, Oriented x3 - Psychiatric Exam Psychiatric exam: Normal Affect, Normal Mood - Skin Skin Exam: Dry, Intact, Normal Color, Warm Assessment and Plan - Assessment and Plan (Free Text) Assessment: 70 y/o F with past medical history of COPD, CHF and afib presents for SOB and chest pressure. Pt recently had cardiac cath on 06/29/16. 1. SOB h/o COPD and CHF CXR on admission showed COPD but no active dz EKG: Afib O2sat : 93-98% ABG on presentation: 7.34/55/43/29.7 Echo showed EF of 45%, LVH and mild MR TR and MO -Xopenex prn -O2 NC -Solumedrol 40 IV q12 -Lasix 40 IV q12 -Cardio c/s: Dr. Mendez -Pulm c/s : Dr. Wright 2. AFib -Coumadin. INR today was 1.79 -Cardizem, Lopressor 3. CAD -Statin 4. HTN -Lopressor -Lisinopril 25 mg PO BID 5. Anxiety -Xanax ppx: Pepcid, Coumadin, HHD Discussed case with attending , Dr. Rodriguez <Shonda Rodriguez - Last Filed: 07/17/16 14:24> Objective - Vital Signs/Intake and Output Vital Signs (last 24 hours): Temp Pulse Resp BP Pulse Ox 97.6 F 86 20 149/100 H 93 L 07/13/16 06:00 07/13/16 09:57 07/13/16 06:00 07/13/16 09:57 07/13/16 06:00 - Labs Labs: PT 21.9 Seconds (9.9-11.8) H 07/13/16 07:00 INR 2.03 (0.93-1.08) H 07/13/16 07:00 Attending/Attestation - Attestation I have personally seen and examined this patient.: Yes I have fully participated in the care of the patient.: Yes I have reviewed all pertinent clinical information, including history, physical exam and plan: Yes Notes (Text): I have seen and examined patient at bedside. This is 70 year old female with a history of COPD, Atrial fibrillation, HTN, anxiety who got admitted with COPD exacerbation. Continue duonebs, oxygen and solumedrol taper. Will continue coumadin, cardizem, digoxin, lisinopril and lopressor. Upon discharge patient will follow up with PMD and cardiology . Dr Shonda Rodriguez
[2016-07-12 19:16] VITALS: RESP 20
[2016-07-13] MEDS: Levalbuterol 0.63 MG/3 ML Inhal Soln UD IH PRN ×3 (04:00→13:37)
[2016-07-13 06:23] VITALS: BP 149/100
[2016-07-13 08:02] LABS: INR 2.03 (0.93-1.08)
[2016-07-13 09:54] VITALS: PULSE 86; TEMP 97.6; O2SAT 93
[2016-07-13] MEDS: diltiaZEM 120 mg/24 Hours CD Cap PO SCH (09:57)
[2016-07-13] MEDS: MethylPREDNISolone 40 mg Vial IVP SCH (09:58)
[2016-07-13] MEDS ORDERED: Magnesium Oxide 400 mg Tab UD PO ONE (10:40)
--- NOTE | 2016-07-13 13:54 | PN ---
DATE: 07/13/2016 REASON FOR CONSULTATION AND FOLLOWUP: Shortness of breath, acute exacerbation of COPD, atypical ches t pain. HISTORY OF PRESENT ILLNESS: The patient is a 70-year-old female with past medical history significan t for COPD, CHF, chronic atrial fibrillation, nonischemic cardiomyopathy, status post recent cardiac catheterization, nonobstructive coronary artery disease. Was admitted with COPD exacerbation. The p atient lying flat in bed now. She says her shortness of breath has improved. Denies chest pain or p alpitation. PHYSICAL EXAMINATION: VITAL SIGNS: Blood pressure 149/100, pulse 86, respiration 20, patient's temperature 97.6. HEAD: Normocephalic. EYES: Pupils normal, conjunctivae normal. NECK: Carotid equal. THORAX: AP diameter normal. LUNGS: Clear. CARDIOVASCULAR: S1, S2. ABDOMEN: Soft, no tenderness, no organomegaly. Bowel sounds normal. EXTREMITIES: No clubbing, no cyanosis. LABORATORY DATA: WBC 10.4, hemoglobin 13.8, hematocrit 40.7, platelet 297. Sodium 135, potassium 3. 8, BUN 12, creatinine 0.6, calcium 9.5, phosphorus 4.3, magnesium 1.6. AST, ALT normal. Total prote in and albumin normal. Troponin negative. The patient had echocardiogram on 07/12/2016, showed left ventricle is normal size. There is borderli ne concentric left ventricular hypertrophy, systolic function of LV is mildly impaired with ejection fraction 45%, mild mitral regurg, mild tricuspid regurg, mild pulmonary hypertension with RVSP 46 mmH g. DIAGNOSES: Atypical chest pain, status post cardiac catheterization, nonobstructive coronary artery disease, nonischemic cardiomyopathy, chronic atrial fibrillation, acute exacerbation of chronic obstr uctive pulmonary disease, mild pulmonary hypertension, mild left ventricular dysfunction with ejectio n fraction of 45%. PLAN: Continue Cardizem-CD 120 daily, warfarin 5 mg p.o. daily, Doryx 100 mg p.o. q.12 hours, digoxi n 0.25 daily, atorvastatin 20 mg daily, metoprolol 25 b.i.d. The patient received mag oxide 400 mg p .o. yesterday and also, she is receiving 400 mg p.o. today. Pepcid 20 mg b.i.d., Solu-Medrol 40 mg I V q.12 hours, lisinopril 2.5 mg p.o. daily. We will discontinue Lasix 40 IV b.i.d. and we will put L asix 40 mg p.o. daily. Today's prothrombin time is 21.9, INR 2.03, which is therapeutic. We will fo llow with you. Mak Blake MD cc: [id number] TT: 07/13/2016 13:53:39 Confirmation # [id number] Dictation # [id number] sn
--- NOTE | 2016-07-13 14:59 | CP.PCM.DIS ---
<Franci Whittington - Last Filed: 07/13/16 14:53> Provider - Provider Date of Admission: 07/12/16 16:03 Attending physician: Ngoc Bruno MD Primary care physician: Andrea Casas MD Consults: Cardio: Dr. Mendez Time Spent in preparation of Discharge (in minutes): 45 Diagnosis - Discharge Diagnosis (1) Atrial fibrillation Status: Chronic (2) COPD exacerbation Status: Chronic (3) COPD (chronic obstructive pulmonary disease) Status: Chronic (4) CHF (congestive heart failure) Status: Chronic (5) Anxiety Status: Acute Hospital Course - Lab Results Lab Results: Most Recent Lab Values WBC 10.4 10^3/ul (4.5-11.0) D 07/12/16 07:00 RBC 4.60 10^6/uL (3.5-6.1) 07/12/16 07:00 Hgb 13.8 gm/dL (12.0-16.0) 07/12/16 07:00 Hct 40.7 % (36.0-48.0) 07/12/16 07:00 MCV 88.5 fL (80.0-105.0) 07/12/16 07:00 MCH 30.0 pg (25.0-35.0) 07/12/16 07:00 MCHC 33.9 g/dl (31.0-37.0) 07/12/16 07:00 RDW 14.3 % (11.5-14.5) 07/12/16 07:00 Plt Count 297 10^3/uL (120.0-450.0) 07/12/16 07:00 MPV 9.2 fl (7.0-11.0) 07/12/16 07:00 Gran % 86.7 % (50.0-68.0) H 07/12/16 07:00 Lymph % (Auto) 9.1 % (22.0-35.0) L 07/12/16 07:00 Arthur % (Auto) 4.2 % (1.0-6.0) 07/12/16 07:00 Eos % (Auto) 0.0 % (1.5-5.0) L 07/12/16 07:00 Baso % (Auto) 0.0 % (0.0-3.0) 07/12/16 07:00 Gran # 9.00 (1.4-6.5) H 07/12/16 07:00 Lymph # 0.9 (1.2-3.4) L 07/12/16 07:00 Arthur # 0.4 (0.1-0.6) 07/12/16 07:00 Eos # 0.0 (0.0-0.7) 07/12/16 07:00 Baso # 0.00 K/mm3 (0.0-2.0) 07/12/16 07:00 PT 21.9 Seconds (9.9-11.8) H 07/13/16 07:00 INR 2.03 (0.93-1.08) H 07/13/16 07:00 pO2 43 mm/Hg (30-55) 07/11/16 07:00 VBG pH 7.34 (7.32-7.43) 07/11/16 07:00 VBG pCO2 55.0 (40-60) 07/11/16 07:00 VBG HCO3 29.7 mmol/l (21-28) H 07/11/16 07:00 VBG Total CO2 31.4 mmol.L (22-28) H 07/11/16 07:00 VBG O2 Sat (Calc) 83.8 % (40-65) H 07/11/16 07:00 VBG Base Excess 2.6 mmol/L (0.0-2.0) H 07/11/16 07:00 VBG Potassium 4.0 mmol/L (3.6-5.2) 07/11/16 07:00 Sodium 134.0 mmol/L (132-148) 07/11/16 07:00 Chloride 102.0 mmol/L (98-107) 07/11/16 07:00 Glucose 108 mg/dl (65-105) H 07/11/16 07:00 Lactate 1.0 mmol/L (0.7-2.1) 07/11/16 07:00 FiO2 21.0 % 07/11/16 07:00 Sodium 135 mmol/L (132-148) 07/12/16 07:00 Potassium 3.8 mmol/L (3.6-5.0) 07/12/16 07:00 Chloride 96 mmol/L (95-110) 07/12/16 07:00 Carbon Dioxide 30 mmol/L (21-33) 07/12/16 07:00 Anion Gap 13 (10-20) 07/12/16 07:00 BUN 12 mg/dL (7-21) 07/12/16 07:00 Creatinine 0.6 mg/dL (0.5-1.4) 07/12/16 07:00 Est GFR ( Amer) > 60 07/12/16 07:00 Est GFR (Non-Af Amer) > 60 07/12/16 07:00 Random Glucose 114 mg/dL (70-110) H 07/12/16 07:00 Hemoglobin A1c 6.0 % (4.2-6.5) 07/12/16 07:00 Calcium 9.5 mg/dL (8.4-10.5) 07/12/16 07:00 Phosphorus 4.3 mg/dL (2.5-4.5) 07/12/16 07:00 Magnesium 1.6 mg/dL (1.7-2.2) L 07/12/16 07:00 Total Bilirubin 0.4 mg/dL (0.2-1.3) 07/12/16 07:00 AST 31 U/L (15-39) 07/12/16 07:00 ALT 39 U/L (7-56) 07/12/16 07:00 Alkaline Phosphatase 58 U/L (38-133) 07/12/16 07:00 Lactate Dehydrogenase 573 U/L (333-699) 07/11/16 14:00 Total Creatine Kinase 100 U/L (35-230) 07/11/16 14:00 Troponin I < 0.01 ng/mL 07/11/16 14:00 NT-Pro-B Natriuret Pep 1710 pg/mL (0-450) H 07/11/16 05:30 Total Protein 6.7 g/dL (5.8-8.3) 07/12/16 07:00 Albumin 4.1 g/dL (3.0-4.8) 07/12/16 07:00 Globulin 2.6 gm/dL 07/12/16 07:00 Albumin/Globulin Ratio 1.6 (1.1-1.8) 07/12/16 07:00 Triglycerides 60 mg/dL (35-160) 07/12/16 07:00 Cholesterol 168 mg/dL (130-200) 07/12/16 07:00 LDL Cholesterol Direct 66 mg/dL (0-129) 07/12/16 07:00 HDL Cholesterol 91 mg/dL (29-60) H 07/12/16 07:00 TSH 3rd Generation 1.5 MIU/ml (0.46-4.68) 07/12/16 07:00 Venous Blood Potassium 4.0 mmol/L (3.6-5.2) 07/11/16 07:00 Urine Color Yellow (YELLOW) 07/11/16 22:00 Urine Appearance Clear (CLEAR) 07/11/16 22:00 Urine pH 6.0 (4.7-8.0) 07/11/16 22:00 Ur Specific [place] 1.010 (1.005-1.035) 07/11/16 22:00 Urine Protein Negative mg/dL (<30 mg/dL) 07/11/16 22:00 Urine Glucose (UA) Negative mg/dL (NEGATIVE) 07/11/16 22:00 Urine Ketones Negative mg/dL (NEGATIVE) 07/11/16 22:00 Urine Blood Negative (NEGATIVE) 07/11/16 22:00 Urine Nitrate Negative (NEGATIVE) 07/11/16 22:00 Urine Bilirubin Negative (NEGATIVE) 07/11/16 22:00 Urine Urobilinogen 1.0 E.U./dL (<1 E.U./dL) H 07/11/16 22:00 Ur Leukocyte Esterase Negative Moo/uL (NEGATIVE) 07/11/16 22:00 Digoxin < 0.4 ng/mL (0.8-2.0) L 07/12/16 07:00 - Hospital Course Hospital Course: Alecia Arciniega is a 70 year old female, with a history of COPD, CHF, Afib presents to the emergency department complaining of shortness of breath and chest pressure which began few hours prior. It woke her up this morning. Patient states she used nebs and Ventolin at home for minimal relief. Reports symptoms are similar to previous COPD exacerbation episodes. She also reports pedal edema that started a few days ago and took Lasix yesterday. Denies fever, chills, headache, dizziness, nausea,vomiting, diarrhea, syncopy, LOC or any other complaints at this time. She recently had cardiac catherization shows , non occlusive CAD on LAD, EF 35-40%. Initial CXR showed no acute disease. EKG on admission showed atrial fibrillation. Troponins x 2 were negative. Lipid panel and TSh were normal. Cardiology, Dr. Mendez was consulted. Patient's cardiac medications and coumadin were adjusted based upon cardiology recommendations. patient also had echocardiogram which showed EF of of 45% and borderline LVH. Patient's COPD exacerbation was managed aggressively with IV steroids and breathing treatments. Patient's symptoms improved and she was not short of breath while walking about her room. Patient is to follow up with PMD, Dr. Casas after discharge. Patient is discharged with the following medications: Medrol dose pack and guaifenesin. Scripts are sent to [facility] in [facility]. She is asked to continue taking all her home medications. Please see MAR for full details. - Date & Time of H&P Date of H&P: 07/13/16 Time of H&P: 14:54 Discharge Exam - Head Exam Head Exam: ATRAUMATIC - Eye Exam Eye Exam: Normal appearance - ENT Exam ENT Exam: Mucous Membranes Moist - Respiratory Exam Respiratory Exam: Clear to PA & Lateral. absent: Rales, Rhonchi, Wheezes - Cardiovascular Exam Cardiovascular Exam: REGULAR RHYTHM, +S1, +S2. absent: Diastolic murmur, Gallop , Rubs, Systolic Murmur - GI/Abdominal Exam GI & Abdominal Exam: Normal Bowel Sounds, Soft. absent: Distended, Firm, Guarding, Rigid, Tenderness - Extremities Exam Additional comments: no edema or tenderness - Neurological Exam Neurological exam: Alert, Oriented x3 - Psychiatric Exam Psychiatric exam: Normal Affect, Normal Mood - Skin Skin Exam: Dry, Intact, Normal Color, Warm Discharge Plan - Discharge Medications Prescriptions: Methylprednisolone [Medrol Dose Pack (21 tabs)] 4 mg PO DAILY #21 mg guaiFENesin [guaifENESIN] 200 mg PO Q6H #1 udc - Follow Up Plan Condition: GOOD Disposition: HOME/ ROUTINE Instructions: COPD (Chronic Obstructive Pulmonary Disease) (DC), Chronic Lung Disease and Infection Prevention (DC) Additional Instructions: Patient is to follow up with PMD, Dr. Casas after discharge. Patient is discharged with the following medications: Medrol dose pack and guaifenesin. Scripts are sent to [facility] in [facility]. She is asked to continue taking all her home medications. Referrals: Andrea Casas MD [Primary Care Provider] - <Ngoc Bruno - Last Filed: 07/13/16 18:34> Provider - Provider Date of Admission: 07/12/16 16:03 Attending physician: Ngoc Bruno MD Primary care physician: Andrea Casas MD Time Spent in preparation of Discharge (in minutes): 35 Hospital Course - Lab Results Lab Results: Most Recent Lab Values WBC 10.4 10^3/ul (4.5-11.0) D 07/12/16 07:00 RBC 4.60 10^6/uL (3.5-6.1) 07/12/16 07:00 Hgb 13.8 gm/dL (12.0-16.0) 07/12/16 07:00 Hct 40.7 % (36.0-48.0) 07/12/16 07:00 MCV 88.5 fL (80.0-105.0) 07/12/16 07:00 MCH 30.0 pg (25.0-35.0) 07/12/16 07:00 MCHC 33.9 g/dl (31.0-37.0) 07/12/16 07:00 RDW 14.3 % (11.5-14.5) 07/12/16 07:00 Plt Count 297 10^3/uL (120.0-450.0) 07/12/16 07:00 MPV 9.2 fl (7.0-11.0) 07/12/16 07:00 Gran % 86.7 % (50.0-68.0) H 07/12/16 07:00 Lymph % (Auto) 9.1 % (22.0-35.0) L 07/12/16 07:00 Arthur % (Auto) 4.2 % (1.0-6.0) 07/12/16 07:00 Eos % (Auto) 0.0 % (1.5-5.0) L 07/12/16 07:00 Baso % (Auto) 0.0 % (0.0-3.0) 07/12/16 07:00 Gran # 9.00 (1.4-6.5) H 07/12/16 07:00 Lymph # 0.9 (1.2-3.4) L 07/12/16 07:00 Arthur # 0.4 (0.1-0.6) 07/12/16 07:00 Eos # 0.0 (0.0-0.7) 07/12/16 07:00 Baso # 0.00 K/mm3 (0.0-2.0) 07/12/16 07:00 PT 21.9 Seconds (9.9-11.8) H 07/13/16 07:00 INR 2.03 (0.93-1.08) H 07/13/16 07:00 pO2 43 mm/Hg (30-55) 07/11/16 07:00 VBG pH 7.34 (7.32-7.43) 07/11/16 07:00 VBG pCO2 55.0 (40-60) 07/11/16 07:00 VBG HCO3 29.7 mmol/l (21-28) H 07/11/16 07:00 VBG Total CO2 31.4 mmol.L (22-28) H 07/11/16 07:00 VBG O2 Sat (Calc) 83.8 % (40-65) H 07/11/16 07:00 VBG Base Excess 2.6 mmol/L (0.0-2.0) H 07/11/16 07:00 VBG Potassium 4.0 mmol/L (3.6-5.2) 07/11/16 07:00 Sodium 134.0 mmol/L (132-148) 07/11/16 07:00 Chloride 102.0 mmol/L (98-107) 07/11/16 07:00 Glucose 108 mg/dl (65-105) H 07/11/16 07:00 Lactate 1.0 mmol/L (0.7-2.1) 07/11/16 07:00 FiO2 21.0 % 07/11/16 07:00 Sodium 135 mmol/L (132-148) 07/12/16 07:00 Potassium 3.8 mmol/L (3.6-5.0) 07/12/16 07:00 Chloride 96 mmol/L (95-110) 07/12/16 07:00 Carbon Dioxide 30 mmol/L (21-33) 07/12/16 07:00 Anion Gap 13 (10-20) 07/12/16 07:00 BUN 12 mg/dL (7-21) 07/12/16 07:00 Creatinine 0.6 mg/dL (0.5-1.4) 07/12/16 07:00 Est GFR ( Amer) > 60 07/12/16 07:00 Est GFR (Non-Af Amer) > 60 07/12/16 07:00 Random Glucose 114 mg/dL (70-110) H 07/12/16 07:00 Hemoglobin A1c 6.0 % (4.2-6.5) 07/12/16 07:00 Calcium 9.5 mg/dL (8.4-10.5) 07/12/16 07:00 Phosphorus 4.3 mg/dL (2.5-4.5) 07/12/16 07:00 Magnesium 1.6 mg/dL (1.7-2.2) L 07/12/16 07:00 Total Bilirubin 0.4 mg/dL (0.2-1.3) 07/12/16 07:00 AST 31 U/L (15-39) 07/12/16 07:00 ALT 39 U/L (7-56) 07/12/16 07:00 Alkaline Phosphatase 58 U/L (38-133) 07/12/16 07:00 Lactate Dehydrogenase 573 U/L (333-699) 07/11/16 14:00 Total Creatine Kinase 100 U/L (35-230) 07/11/16 14:00 Troponin I < 0.01 ng/mL 07/11/16 14:00 NT-Pro-B Natriuret Pep 1710 pg/mL (0-450) H 07/11/16 05:30 Total Protein 6.7 g/dL (5.8-8.3) 07/12/16 07:00 Albumin 4.1 g/dL (3.0-4.8) 07/12/16 07:00 Globulin 2.6 gm/dL 07/12/16 07:00 Albumin/Globulin Ratio 1.6 (1.1-1.8) 07/12/16 07:00 Triglycerides 60 mg/dL (35-160) 07/12/16 07:00 Cholesterol 168 mg/dL (130-200) 07/12/16 07:00 LDL Cholesterol Direct 66 mg/dL (0-129) 07/12/16 07:00 HDL Cholesterol 91 mg/dL (29-60) H 07/12/16 07:00 TSH 3rd Generation 1.5 MIU/ml (0.46-4.68) 07/12/16 07:00 Venous Blood Potassium 4.0 mmol/L (3.6-5.2) 07/11/16 07:00 Urine Color Yellow (YELLOW) 07/11/16 22:00 Urine Appearance Clear (CLEAR) 07/11/16 22:00 Urine pH 6.0 (4.7-8.0) 07/11/16 22:00 Ur Specific [place] 1.010 (1.005-1.035) 07/11/16 22:00 Urine Protein Negative mg/dL (<30 mg/dL) 07/11/16 22:00 Urine Glucose (UA) Negative mg/dL (NEGATIVE) 07/11/16 22:00 Urine Ketones Negative mg/dL (NEGATIVE) 07/11/16 22:00 Urine Blood Negative (NEGATIVE) 07/11/16 22:00 Urine Nitrate Negative (NEGATIVE) 07/11/16 22:00 Urine Bilirubin Negative (NEGATIVE) 07/11/16 22:00 Urine Urobilinogen 1.0 E.U./dL (<1 E.U./dL) H 07/11/16 22:00 Ur Leukocyte Esterase Negative Moo/uL (NEGATIVE) 07/11/16 22:00 Digoxin < 0.4 ng/mL (0.8-2.0) L 07/12/16 07:00 - Hospital Course Hospital Course: attending note; Patient is a 70-year-old female with a history of COPD, A. fib is admitted with COPD exacerbation. Treated with oxygen, DuoNeb, IV Solu-Medrol. Clinically improved significantly. Patient is not on oxygen. Ambulating without any difficulty. Patient will be discharged home today. A. fib; INR is therapeutic. Cardiology consult appreciated. Continue cardizem, digoxin, lisinopril and lopressor. Upon discharge patient will follow up with PMD and cardiology . diagnosis; COPD exacerbation Anxiety A. fib Hypertension
== END 2016-07-13 14:47 | disposition home or self-care (01) | DRG 191 ==
LOC: ED 05:33 → ERH 07:23 → 2RSO 15:20 → OBSVTOIN 07-12 16:03 → 3RNO 07-12 21:51
PROVIDERS: ADMIT Hospitalist; ATTEND Internal Medicine
DX: J44.1 Chronic obstructive pulmonary disease with (acute) exacerbation (principal); I42.9 Cardiomyopathy, unspecified; I11.0 Hypertensive heart disease with heart failure; I50.9 Heart failure, unspecified; I48.2 Chronic atrial fibrillation; I27.2 Other secondary pulmonary hypertension; F41.9 Anxiety disorder, unspecified; I25.10 Atherosclerotic heart disease of native coronary artery without angina pectoris; I35.0 Nonrheumatic aortic (valve) stenosis; Z87.891 Personal history of nicotine dependence; Z79.01 Long term (current) use of anticoagulants

== ENCOUNTER 2016-08-16 09:36 | Emergency (ER) | payer MEDICARE ==
[2016-08-16 09:36] VITALS: PULSE 98
[2016-08-16 09:42] VITALS: BMI 29.2
[2016-08-16 09:53] VITALS: RESP 18
[2016-08-16] MEDS ORDERED: Magnesium Sulfate 2 GM in Sodium Chloride 0.9% 100 ML IVPB ONE (10:08)
[2016-08-16] MEDS ORDERED: Albuterol-Ipratrop 3 mg / 0.5 (3 ml) UD IH STA ×3 (10:08→10:09)
--- NOTE | 2016-08-16 10:12 | ED PDOC ---
Arrival/HPI - General Chief Complaint: Shortness Of Breath Time Seen by Provider: 08/16/16 09:51 Historian: Patient - History of Present Illness Narrative History of Present Illness (Text): 08/16/16 10:09 70 year old female whose past medical history includes COPD, CHF, atrial fibrillation presents to the emergency department with shortness of breath for the past 2-3 days. She states she used her Albuetrol nebulizer at home. She also reports cough with clear phlegm. Patient admits to smoking. Denies chest pain, leg swelling, or other complaints. PMD: Dr. Casas Time/Duration: < week Symptom Onset: Gradual Symptom Course: Unchanged Past Medical History - Provider Review Nursing Documentation Reviewed: Yes - Infectious Disease Hx of Infectious Diseases: None - Cardiac Hx Cardiac Disorders: Yes Hx Atrial Fibrillation: Yes Hx Hypertension: Yes Hx Pacemaker: No - Pulmonary Hx Respiratory Disorders: Yes Hx Asthma: Yes Hx Chronic Obstructive Pulmonary Disease (COPD): Yes - Neurological Hx Paralysis: No - HEENT Hx HEENT Disorder: No - Renal Hx Renal Disorder: No - Hematological/Oncological Hx Blood Transfusions: No - Musculoskeletal/Rheumatological Hx Musculoskeletal Disorders: No - Gastrointestinal Hx Gastrointestinal Disorders: Yes Hx Gastroesophageal Reflux: Yes - Psychiatric Hx Emotional Abuse: No Hx Physical Abuse: No Hx Substance Use: No - Surgical History Hx Angiogram: Yes Hx Cardiac Catheterization: Yes - Anesthesia Hx Anesthesia: Yes Hx Anesthesia Reactions: No Hx Malignant Hyperthermia: No - Suicidal Assessment Feels Threatened In Home Enviroment: No Family/Social History - Physician Review Nursing Documentation Reviewed: Yes Family/Social History: Unknown Family HX Smoking Status: Current Some Days Smoker Hx Alcohol Use: No Hx Substance Use: No Allergies/Home Meds Allergies/Adverse Reactions: Allergies azithromycin [From Zithromax] Adverse Reaction (Intermediate, Verified 08/16/16 09:42) RASH "JUST DOES NOT WORK" Home Medications: Home Meds Medication Instructions Recorded Confirmed Pravastatin Sodium [Pravachol] 40 mg PO DAILY 04/22/15 08/16/16 ALPRAZolam [Xanax] 0.5 mg PO TID PRN 04/28/15 08/16/16 Famotidine [Pepcid] 20 mg PO BID 04/28/15 08/16/16 Furosemide [Lasix] 40 mg PO DAILY PRN 04/28/15 08/16/16 Lisinopril [Zestril] 2.5 mg PO DAILY 04/28/15 08/16/16 Metoprolol Tartrate [Lopressor] 25 mg PO BID 04/28/15 08/16/16 Potassium Chloride [Klor-Con 10] 10 meq PO DAILY PRN 04/28/15 08/16/16 diltiaZEM CD [Cardizem CD] 120 mg PO DAILY 04/28/15 08/16/16 Albuterol HFA [Ventolin HFA 90 1 puff IH Q6 PRN 06/23/15 08/16/16 mcg/actuation (8 g)] Warfarin Sodium [Jantoven] 5 mg PO Q6XW 05/14/16 08/16/16 Albuterol/Ipratropium [Duoneb 3 1 dose NEB TID 06/27/16 08/16/16 mg/0.5 mg (3 ml) UD] Budesonide [Pulmicort Flexhaler] 90 mcg IH TID 06/27/16 08/16/16 Review of Systems - Physician Review All systems were reviewed & negative as marked: Yes - Review of Systems Respiratory: SOB, Cough, Sputum Cardiovascular: absent: Chest Pain Gastrointestinal: absent: Vomiting Neurological: absent: Headache, Dizziness Physical Exam Vital Signs Reviewed: Yes Vital Signs Temp Pulse Resp BP Pulse Ox 08/16/16 14:26 106 H 18 116/71 95 08/16/16 13:48 116 H 18 118/75 95 08/16/16 12:34 109 H 18 121/79 95 08/16/16 11:27 105 H 18 123/89 95 08/16/16 09:48 18 96 08/16/16 09:36 98.6 F 98 H 19 125/96 H 95 Temperature: Afebrile Blood Pressure: Normal Pulse: Regular Respiratory Rate: Normal Appearance: Positive for: Well-Appearing, Non-Toxic, Comfortable Pain Distress: None Mental Status: Positive for: Alert and Oriented X 3 - Systems Exam Head: Present: Atraumatic, Normocephalic Pupils: Present: PERRL Extroacular Muscles: Present: EOMI Conjunctiva: Present: Normal Mouth: Present: Moist Mucous Membranes Neck: Present: Normal Range of Motion Respiratory/Chest: Present: Good Air Exchange, Wheezes (Bilateral expiratory wheeze in all air kim). No: Respiratory Distress, Accessory Muscle Use Cardiovascular: Present: Normal S1, S2, Irregular Rhythm (Irregularly irregular) . No: Murmurs Abdomen: Present: Normal Bowel Sounds. No: Tenderness, Distention, Peritoneal Signs Back: Present: Normal Inspection Upper Extremity: Present: Normal Inspection. No: Cyanosis, Edema Lower Extremity: Present: Normal Inspection. No: Edema Neurological: Present: GCS=15, CN II-XII Intact, Speech Normal Skin: Present: Warm, Dry, Normal Color. No: Rashes Psychiatric: Present: Alert, Oriented x 3, Normal Insight, Normal Concentration Medical Decision Making ED Course and Treatment: Impression: 70 year old female whose past medical history includes COPD, CHF, atrial fibrillation presents to the emergency department with shortness of breath for the past 2-3 days. Differential Diagnosis include but are not limited to: COPD exacerbation Plan: -- Duoneb, Mag Sulfate, Solumedrol -- Labs -- Reassess and disposition Prior Visits: Notes and results from previous visits were reviewed. Patient last seen in ED on 07/11/16 for shortness of breath and admitted for COPD. Progress Notes: 08/16/16 13:30 Patient feeling better. labs reviewed. Lungs clear. patient to be discharged with Rx and followup instructions. - Critical Care Critical Care Minutes: 30 minutes - Lab Interpretations Lab Results: 08/16/16 10:21 08/16/16 10:21 Lab Results 08/16/16 10:21: Sodium 135, Potassium 4.4, Chloride 101, Carbon Dioxide 30, Anion Gap 8 L, BUN 6 L, Creatinine 0.6, Est GFR ( Amer) > 60, Est GFR ( Non-Af Amer) > 60, Random Glucose 103, Calcium 9.3, Total Bilirubin 0.5, AST 37 , ALT 42, Alkaline Phosphatase 54, Lactate Dehydrogenase 590, Total Creatine Kinase 98, Troponin I < 0.01, NT-Pro-B Natriuret Pep 1180 H, Total Protein 6.7, Albumin 4.2, Globulin 2.5, Albumin/Globulin Ratio 1.7 08/16/16 10:21: WBC 6.9 D, RBC 4.57, Hgb 14.0, Hct 41.4, MCV 90.6, MCH 30.6, MCHC 33.8, RDW 14.3, Plt Count 248, MPV 9.2, Gran % 76.0 H, Lymph % (Auto) 17.8 L, [place] % (Auto) 4.6, Eos % (Auto) 1.2 L, Baso % (Auto) 0.4, Gran # 5.25, Lymph # 1.2, [place] # 0.3, Eos # 0.1, Baso # 0.03 - RAD Interpretation Radiology Orders: 08/16/16 09:53 CHEST PORTABLE [RAD] Stat - EKG Interpretation EKG Interpretation (Text): EKG shows atrial fibrillation at 109 BPM, otherwise normal, interpreted by me. Interpreted by ED Physician: Yes Type: 12 lead EKG - Medication Orders Current Medication Orders: Discontinued Medications Albuterol Sulfate (Albuterol 0.083% Inhal Dede (2.5 Mg/3 Ml) Ud) 2.5 mg IH STAT STA Stop: 08/16/16 12:25 Last Admin: 08/16/16 13:05 Dose: 2.5 mg Albuterol/Ipratropium (Duoneb 3 Mg/0.5 Mg (3 Ml) Ud) 3 ml IH STAT STA Stop: 08/16/16 10:09 Last Admin: 08/16/16 10:23 Dose: 3 ml Albuterol/Ipratropium (Duoneb 3 Mg/0.5 Mg (3 Ml) Ud) 3 ml IH STAT STA Stop: 08/16/16 10:10 Last Admin: 08/16/16 10:43 Dose: 3 ml Albuterol/Ipratropium (Duoneb 3 Mg/0.5 Mg (3 Ml) Ud) 3 ml IH STAT STA Stop: 08/16/16 10:10 Last Admin: 08/16/16 10:59 Dose: 3 ml Magnesium Sulfate 2 gm/ Sodium (Chloride) 104 mls @ 102 mls/hr IVPB ONCE ONE Stop: 08/16/16 11:09 Last Admin: 08/16/16 10:43 Dose: 102 mls/hr Methylprednisolone (Solu-Medrol) 125 mg IVP STAT STA Stop: 08/16/16 10:09 Last Admin: 08/16/16 10:23 Dose: 125 mg - Scribe Statement The provider has reviewed the documentation as recorded by the Niraj Aj Provider Scribe Attestation: All medical record entries made by the Niraj were at my direction and personally dictated by me. I have reviewed the chart and agree that the record accurately reflects my personal performance of the history, physical exam, medical decision making, and the department course for this patient. I have also personally directed, reviewed, and agree with the discharge instructions and disposition. Disposition/Present on Arrival - Present on Arrival Any Indicators Present on Arrival: No History of DVT/PE: No History of Uncontrolled Diabetes: No Urinary Catheter: No History of Decub. Ulcer: No History Surgical Site Infection Following: None - Disposition Have Diagnosis and Disposition been Completed?: Yes Diagnosis: Bronchitis, Asthma exacerbation Disposition: HOME/ ROUTINE Disposition Time: 13:30 Condition: IMPROVED Discharge Instructions (ExitCare): Asthma (ED), How to Stop Smoking (ED), Acute Bronchitis (ED) Additional Instructions: Thank you for letting us take care of you today. Your provider was Dr. Hanley. You were treated for asthma/bronchitis. The emergency medical care you received today was directed at your acute symptoms. If you were prescribed any medication, please fill it and take as directed. It may take several days for your symptoms to resolve. Return to the Emergency Department if your symptoms worsen, do not improve, or if you have any other problems. Please contact your doctor or call one of the physicians/clinics you have been referred to that are listed on the Patient Visit Information form that is included in your discharge packet. Bring any paperwork you were given at discharge with you along with any medications you are taking to your follow up visit. Our treatment cannot replace ongoing medical care by a primary care provider (PCP) outside of the emergency department. Thank you for allowing the [facility] team to be part of your care today. Follow up with your doctor in 2-3 days for re-evaluation. Prescriptions: Azithromycin [Zithromax] 250 mg PO DAILY #6 tab predniSONE [Prednisone] 40 mg PO DAILY #10 tab Referrals: Andrea Casas MD [Primary Care Provider] - Follow up with primary
[2016-08-16 10:22] LABS: ADD MANUAL DIFF? NO
[2016-08-16 10:25] LABS: BASO # 0.03 K/mm3 (0.0-2.0); BASO % 0.4 % (0.0-3.0); EOS # 0.1 (0.0-0.7); EOS % 1.2 % (1.5-5.0); GRAN # 5.25 (1.4-6.5); HEMATOCRIT 41.4 % (36.0-48.0); LYMPH # 1.2 (1.2-3.4); LYMPH % 17.8 % (22.0-35.0); MEAN CELL VOLUME 90.6 fL (80.0-105.0); MEAN CORPUSCULAR HEMOGLOBIN 30.6 pg (25.0-35.0); MEAN CORPUSCULAR HGB CONC 33.8 g/dl (31.0-37.0); MEAN PLATELET VOLUME 9.2 fl (7.0-11.0); MONO # 0.3 (0.1-0.6); MONO % 4.6 % (1.0-6.0); PLATELET COUNT 248 10^3/uL (120.0-450.0); RED CELL DISTRIBUTION WIDTH 14.3 % (11.5-14.5); WHITE BLOOD COUNT 6.9 10^3/ul (4.5-11.0)
--- NOTE | 2016-08-16 10:25 | RAD ---
HISTORY: SOB COMPARISON: 07/11/2016 FINDINGS: LUNGS: No active pulmonary disease. PLEURA: No significant pleural effusion identified, no pneumothorax apparent. CARDIOVASCULAR: Normal. OSSEOUS STRUCTURES: No significant abnormalities. VISUALIZED UPPER ABDOMEN: Normal. OTHER FINDINGS: None. IMPRESSION: No active disease.
[2016-08-16 10:37] LABS: ALB/GLOB RATIO 1.7 (1.1-1.8); ALKALINE PHOSPHATASE 54 U/L (38-133); ALT/SGPT 42 U/L (7-56); AST/SGOT 37 U/L (15-39); BILIRUBIN,TOTAL 0.5 mg/dL (0.2-1.3); BLOOD UREA NITROGEN 6 mg/dL (7-21); CALCIUM 9.3 mg/dL (8.4-10.5); CARBON DIOXIDE 30 mmol/L (21-33); CHLORIDE 101 mmol/L (98-107); GFR AFRICAN-AMERICAN > 60; GLUCOSE,RANDOM 103 mg/dL (70-110); POTASSIUM 4.4 mmol/L (3.6-5.0); SODIUM 135 mmol/L (132-148); TOTAL PROTEIN 6.7 g/dL (5.8-8.3)
[2016-08-16 10:40] VITALS: TEMP 98.6
[2016-08-16 10:52] LABS: TROPONIN I < 0.01 ng/mL
[2016-08-16 11:28] VITALS: O2SAT 95
[2016-08-16] MEDS ORDERED: Albuterol 0.083% Inhal Sol (2.5 mg/3 mL) UD IH STA (12:24)
[2016-08-16 14:26] VITALS: BP 116/71; PULSE 106
--- NOTE | 2016-08-16 18:38 | CARD ---
APPROVED REPORT EKG Measurement Heart [id number] <Conclusion> Atrial fibrillation with rapid ventricular response Abnormal ECG
== END 2016-08-16 15:26 | disposition home or self-care (01) ==
LOC: ED 09:36
DX: J45.901 Unspecified asthma with (acute) exacerbation (principal); I48.91 Unspecified atrial fibrillation; I10 Essential (primary) hypertension; Z72.0 Tobacco use
CPT/HCPCS: 71010; 80053; 82550; 83615; 83880; 84484; 85025; 93005; 96374; 99285; J2930; J3475

== ENCOUNTER 2016-08-20 10:40 | Inpatient (IN) | payer MEDICARE, OTHER ==
[2016-08-20 10:41] VITALS: BMI 29.2
[2016-08-20] MEDS: Albuterol-Ipratrop 3 mg / 0.5 (3 ml) UD IH SCH ×3 (11:00→11:35)
--- NOTE | 2016-08-20 11:09 | ED PDOC ---
Arrival/HPI - General Chief Complaint: Shortness Of Breath Time Seen by Provider: 08/20/16 10:42 Historian: Patient - History of Present Illness Narrative History of Present Illness (Text): 08/20/16 10:45 Alecia Arciniega is a 70 year old female whose past medical history includes A-fib , COPD, Asthma, and Anxiety, who presents to the emergency department complaining of chest pain that radiates down the left arm, shortness of breath, and bilateral leg swelling. Symptoms are accompanied with nasal congestion and a dry cough. Patient states she feels as though she is wheezing and nebulizer pump and machine does not help alleviate symptoms. Patient last took a Lasix pill yesterday when the initial swelling of her LE began. Patient was recently admitted and was on a course of Zithromycin and Steroids. Patient otherwise denies any fever, chills, nausea, vomiting, diarrhea, urinary symptoms, back pain, neck pain, headache, dizziness, or any other complaints. PMD: Andrea Casas MD Time/Duration: < week (4 days) Symptom Onset: Gradual Symptom Course: Unchanged Activities at Onset: Light Context: Home Past Medical History - Provider Review Nursing Documentation Reviewed: Yes - Infectious Disease Hx of Infectious Diseases: None - Reproductive Menopause: Yes - Cardiac Hx Cardiac Disorders: Yes Hx Atrial Fibrillation: Yes Hx Hypertension: Yes Hx Pacemaker: No - Pulmonary Hx Respiratory Disorders: Yes Hx Asthma: Yes Hx Chronic Obstructive Pulmonary Disease (COPD): Yes - Neurological Hx Paralysis: No - HEENT Hx HEENT Disorder: No - Renal Hx Renal Disorder: No - Hematological/Oncological Hx Blood Transfusions: No - Musculoskeletal/Rheumatological Hx Musculoskeletal Disorders: No - Gastrointestinal Hx Gastrointestinal Disorders: Yes Hx Gastroesophageal Reflux: Yes - Psychiatric Hx Emotional Abuse: No Hx Physical Abuse: No Hx Substance Use: No - Surgical History Hx Angiogram: Yes Hx Cardiac Catheterization: Yes - Anesthesia Hx Anesthesia: Yes Hx Anesthesia Reactions: No Hx Malignant Hyperthermia: No - Suicidal Assessment Feels Threatened In Home Enviroment: No Family/Social History - Physician Review Nursing Documentation Reviewed: Yes Family/Social History: No Known Family HX Smoking Status: Current Some Days Smoker Hx Alcohol Use: No Hx Substance Use: No Allergies/Home Meds Allergies/Adverse Reactions: Allergies azithromycin [From Zithromax] Adverse Reaction (Intermediate, Verified 08/16/16 09:42) RASH "JUST DOES NOT WORK" Home Medications: Home Meds Medication Instructions Recorded Confirmed Pravastatin Sodium [Pravachol] 40 mg PO DAILY 04/22/15 08/20/16 ALPRAZolam [Xanax] 0.5 mg PO TID PRN 04/28/15 08/20/16 Famotidine [Pepcid] 20 mg PO BID 04/28/15 08/20/16 Furosemide [Lasix] 40 mg PO DAILY PRN 04/28/15 08/20/16 Lisinopril [Zestril] 2.5 mg PO DAILY 04/28/15 08/20/16 Metoprolol Tartrate [Lopressor] 25 mg PO BID 04/28/15 08/20/16 Potassium Chloride [Klor-Con 10] 10 meq PO DAILY PRN 04/28/15 08/20/16 [id number] CD [Cardizem CD] 120 mg PO DAILY 04/28/15 08/20/16 Albuterol HFA [Ventolin HFA 90 1 puff IH Q6 PRN 06/23/15 08/20/16 mcg/actuation (8 g)] Warfarin Sodium [Jantoven] 5 mg PO Q6XW 05/14/16 08/20/16 Albuterol/Ipratropium [Duoneb 3 1 dose NEB TID 06/27/16 08/20/16 mg/0.5 mg (3 ml) UD] Budesonide [Pulmicort Flexhaler] 90 mcg IH TID 06/27/16 08/20/16 Review of Systems - Physician Review All systems were reviewed & negative as marked: Yes - Review of Systems Constitutional: Normal. absent: Fevers Eyes: Normal ENT: Sinus Congestion Respiratory: SOB, Cough Cardiovascular: Chest Pain Gastrointestinal: Normal. absent: Abdominal Pain, Diarrhea, Nausea, Vomiting Genitourinary Female: Normal. absent: Dysuria, Frequency, Hematuria, Urine Output Changes Musculoskeletal: Normal. absent: Back Pain, Neck Pain Skin: Normal Neurological: Normal. absent: Headache, Dizziness Endocrine: Normal Hemo/Lymphatic: Normal Psychiatric: Anxiety Physical Exam Vital Signs Temp Pulse Resp BP Pulse Ox 08/20/16 13:20 122 H 22 142/96 H 96 08/20/16 11:35 161/96 H 08/20/16 10:42 116 H 96 08/20/16 10:41 97.4 F L 127 H 24 141/96 H 96 Temperature: Afebrile Blood Pressure: Hypertensive Pulse: Tachycardic Respiratory Rate: Normal Appearance: Positive for: Well-Appearing, Non-Toxic, Comfortable Pain Distress: None Mental Status: Positive for: Alert and Oriented X 3 - Systems Exam Head: Present: Atraumatic, Normocephalic Pupils: Present: PERRL Extroacular Muscles: Present: EOMI Conjunctiva: Present: Normal Mouth: Present: Moist Mucous Membranes Neck: Present: Normal Range of Motion Respiratory/Chest: Present: Good Air Exchange, Wheezes (Expiratory Wheezing ), Tachypneic. No: Respiratory Distress, Accessory Muscle Use Cardiovascular: Present: Regular Rate and Rhythm, Normal S1, S2. No: Murmurs Abdomen: Present: Normal Bowel Sounds. No: Tenderness, Distention, Peritoneal Signs Back: Present: Normal Inspection Upper Extremity: Present: Normal Inspection. No: Cyanosis, Edema Lower Extremity: Present: Edema (Trace B/L LE Edema) Neurological: Present: GCS=15, CN II-XII Intact, Speech Normal Skin: Present: Warm, Dry, Normal Color. No: Rashes Psychiatric: Present: Alert, Oriented x 3, Normal Insight, Normal Concentration Medical Decision Making ED Course and Treatment: 08/20/16 10:45 Impression: 70 year old female with intermittent shortness of breath, radiating chest pain, and bilateral LE swelling. Differential Diagnosis include but are not limited to: COPD Exacerbation vs. CHF Exacerbation r/o PNA Plan: -- Chest X-ray -- EKG -- VBG -- Blood Culture -- Labs, cardiac enzymes -- Duoneb -- Lasix -- Solumedrol -- Reassess and disposition Prior Visits: Notes and results from previous visits were reviewed. Patient was last seen in the emergency department on 08/16/16 for shortness of breath. Progress Notes: 08/20/16 11:05 EKG: Ordered, reviewed, and independently interpreted the EKG. Rate : 119 BPM Rhythm : Atrial Fibrillation Interpretation : PVCs 08/20/16 11:30 Procedure: Chest X-Ray Dictator: Hayes Qureshi MD Impression: No active disease. 08/20/16 13:43 Patient desaturates to 93% on room air and becomes tachypneic when walking in the ED. She also states she feels anxious. Case discussed with Dr. Rachell Rodriguez for observation, Remote telemetry. Will give Xanax for anxiety. - Lab Interpretations Lab Results: 08/20/16 11:25 08/20/16 11:25 Lab Results 08/20/16 11:25: Sodium 132, Chloride 96 L, Potassium 4.3, Carbon Dioxide 30, Anion Gap 10, BUN 11, Creatinine 0.6, Est GFR ( Amer) > 60, Est GFR (Non- Af Amer) > 60, Random Glucose 92, Calcium 9.6, Magnesium 1.6 L, Lactate Dehydrogenase 518, Total Creatine Kinase 70, Troponin I < 0.01, NT-Pro-B Natriuret Pep 1630 H 08/20/16 11:25: pO2 43, VBG pH 7.38, VBG pCO2 54.0, VBG HCO3 31.9 H, VBG Total CO2 33.6 H, VBG O2 Sat (Calc) 83.5 H, VBG Base Excess 5.3 H, VBG Potassium 4.5, Sodium 133.0, Chloride 99.0, Glucose 88, Lactate 1.5, FiO2 21.0, Venous Blood Potassium 4.5 08/20/16 11:25: PT 23.9 H, INR 2.21 H, APTT 35.7 H 08/20/16 11:25: WBC 9.7 D, RBC 4.62, Hgb 14.1, Hct 41.1, MCV 89.0, MCH 30.5, MCHC 34.3, RDW 14.3, Plt Count 252, MPV 9.1, Gran % 83.7 H, Lymph % (Auto) 12.5 L, [place] % (Auto) 3.6, Eos % (Auto) 0.1 L, Baso % (Auto) 0.1, Gran # 8.09 H, Lymph # 1.2, [place] # 0.4, Eos # 0.0, Baso # 0.01 I have reviewed the lab results: Yes - RAD Interpretation Narrative RAD Interpretations (Text): 08/20/16 11:30 Procedure: Chest X-Ray Dictator: Hayes Qureshi MD FINDINGS: LUNGS: No active pulmonary disease. PLEURA: No significant pleural effusion identified, no pneumothorax apparent. CARDIOVASCULAR: Normal. OSSEOUS STRUCTURES: No significant abnormalities. VISUALIZED UPPER ABDOMEN: Normal. OTHER FINDINGS: None. Impression: No active disease. Radiology Orders: 08/20/16 10:54 CHEST PORTABLE [RAD] Stat Group Work Program Director: Radiologist - EKG Interpretation Interpreted by ED Physician: Yes Type: 12 lead EKG - Medication Orders Current Medication Orders: Discontinued Medications Albuterol/Ipratropium (Duoneb 3 Mg/0.5 Mg (3 Ml) Ud) 3 ml IH Q15M NORA Stop: 08/20/16 11:31 Last Admin: 08/20/16 11:35 Dose: 3 ml Furosemide (Lasix) 40 mg IVP STAT STA Stop: 08/20/16 10:54 Last Admin: 08/20/16 11:35 Dose: 40 mg Methylprednisolone (Solu-Medrol) 125 mg IVP STAT STA Stop: 08/20/16 10:54 Last Admin: 08/20/16 11:35 Dose: 125 mg - Niraj Statement The provider has reviewed the documentation as recorded by the Niraj Chaudhary Provider Attestation: All medical record entries made by the Niraj were at my direction and personally dictated by me. I have reviewed the chart and agree that the record accurately reflects my personal performance of the history, physical exam, medical decision making, and the department course for this patient. I have also personally directed, reviewed, and agree with the discharge instructions and disposition. Disposition/Present on Arrival - Present on Arrival Any Indicators Present on Arrival: No History of DVT/PE: No History of Uncontrolled Diabetes: No Urinary Catheter: No History of Decub. Ulcer: No History Surgical Site Infection Following: None - Disposition Have Diagnosis and Disposition been Completed?: Yes Diagnosis: Atrial fibrillation, CHF (congestive heart failure), COPD (chronic obstructive pulmonary disease), Anxiety Disposition: HOSPITALIZED Disposition Time: 13:45 Patient Plan: Observation Condition: FAIR Discharge Instructions (ExitCare): Heart Failure (ED)
--- NOTE | 2016-08-20 11:31 | RAD ---
HISTORY: cough r/o pna; r/o chf COMPARISON: 08/16/2016 FINDINGS: LUNGS: No active pulmonary disease. PLEURA: No significant pleural effusion identified, no pneumothorax apparent. CARDIOVASCULAR: Normal. OSSEOUS STRUCTURES: No significant abnormalities. VISUALIZED UPPER ABDOMEN: Normal. OTHER FINDINGS: None. IMPRESSION: No active disease.
[2016-08-20 11:41] LABS: ADD MANUAL DIFF? NO
[2016-08-20 11:46] LABS: BASO # 0.01 K/mm3 (0.0-2.0); BASO % 0.1 % (0.0-3.0); EOS % 0.1 % (1.5-5.0); GRAN # 8.09 (1.4-6.5); GRAN % 83.7 % (50.0-68.0); HEMATOCRIT 41.1 % (36.0-48.0); LYMPH # 1.2 (1.2-3.4); LYMPH % 12.5 % (22.0-35.0); MEAN CORPUSCULAR HEMOGLOBIN 30.5 pg (25.0-35.0); MEAN CORPUSCULAR HGB CONC 34.3 g/dl (31.0-37.0); MEAN PLATELET VOLUME 9.1 fl (7.0-11.0); MONO # 0.4 (0.1-0.6); MONO % 3.6 % (1.0-6.0); PLATELET COUNT 252 10^3/uL (120.0-450.0); RED CELL DISTRIBUTION WIDTH 14.3 % (11.5-14.5); WHITE BLOOD COUNT 9.7 10^3/ul (4.5-11.0)
[2016-08-20 11:48] LABS: VENOUS BLOOD GAS BASE EXCESS 5.3 mmol/L (0.0-2.0); VENOUS BLOOD PH 7.38 (7.32-7.43)
[2016-08-20 11:55] LABS: BLOOD UREA NITROGEN 11 mg/dL (7-21); CALCIUM 9.6 mg/dL (8.4-10.5); CARBON DIOXIDE 30 mmol/L (21-33); CHLORIDE 96 mmol/L (98-107); GFR AFRICAN-AMERICAN > 60; GLUCOSE,RANDOM 92 mg/dL (70-110); MAGNESIUM 1.6 mg/dL (1.7-2.2); POTASSIUM 4.3 mmol/L (3.6-5.0); SODIUM 132 mmol/L (132-148)
[2016-08-20 12:03] LABS: INR 2.21 (0.93-1.08); PARTIAL THROMBOPLASTIN TIME 35.7 Seconds (23.7-30.8)
--- NOTE | 2016-08-20 12:04 | CARD ---
APPROVED REPORT EKG Measurement Heart [id number] <Conclusion> Atrial fibrillation with rapid ventricular response with premature ventricular or aberrantly conducted complexes Abnormal ECG
[2016-08-20 12:08] LABS: TROPONIN I < 0.01 ng/mL
[2016-08-20] MEDS ORDERED: Levalbuterol 0.63 MG/3 ML Inhal Soln UD IH PRN ×3 (14:55→14:59)
--- NOTE | 2016-08-20 15:10 | CP.PCM.HP ---
<Cindi Mayes - Last Filed: 08/20/16 15:38> History of Present Illness - History of Present Illness History of Present Illness: Medicine Note for Dr. Shonda Rodriguez: HPI: 70 yo F w/PMHx of a.fibrillation on coumadin, COPD, asthma, CAD, anxiety, presents with one day exacerbation of SOB w/ one day of L chest pain. Said pain radiated down L arm. Pt tried home inhalers without alleviation of SOB. Also c/o cough with clear sputum and b/l leg swelling. Pt denies fever, abdominal pain, vomiting, urinary changes, stool changes, headache. Pt admits to non-compliance to home lasix due to avoiding heavy urination from said medication. PMHx: a.fibrillation on coumadin, COPD, asthma, CAD, anxiety Psxhx: L lung mass resection in 2016 allergies: azithromycin rash medications: Pravachol 40, xanax 0.5 BID prn, pepcid 20mg PO BID, Lasix 40 PO QD, linispril 2.5, metoprolol tartrate 25 mg PO BID, potassium chloride 10 meq PO qd prn, diltiazem 120 mg PO QD, albuterol hfa q6 prn, warfarin 5 mg po q6xw, duoneb 3mg/0.5 (3ml) UD, budesonide 90 mcg IH TID. Social: denies ETOH and illicit drugs, 50+ PPD history, stopped smoking past week family: brother has unknown abdominal CA, and mother had cervical CA Present on Admission - Present on Admission Any Indicators Present on Admission: No Review of Systems - Review of Systems All systems: reviewed and no additional remarkable complaints except - Constitutional Constitutional: absent: Fever, Headache - Cardiovascular Cardiovascular: Chest Pain, Dyspnea - Respiratory Respiratory: Cough, Dyspnea - Gastrointestinal Gastrointestinal: absent: Abdominal Pain, Diarrhea - Genitourinary Genitourinary: absent: Hematuria, Pyuria Past Patient History - Infectious Disease Hx of Infectious Diseases: None - Past Medical History & Family History Past Medical History?: Yes - Past Social History Smoking Status: Current Some Days Smoker - CARDIAC Hx Cardiac Disorders: Yes Hx Atrial Fibrillation: Yes Hx Hypertension: Yes Hx Pacemaker: No - PULMONARY Hx Respiratory Disorders: Yes Hx Asthma: Yes Hx Chronic Obstructive Pulmonary Disease (COPD): Yes - NEUROLOGICAL Hx Paralysis: No - HEENT Hx HEENT Problems: No - RENAL Hx Chronic Kidney Disease: No - HEMATOLOGICAL/ONCOLOGICAL Hx Blood Transfusions: No - MUSCULOSKELETAL/RHEUMATOLOGICAL Hx Musculoskeletal Disorders: No - GASTROINTESTINAL Hx Gastrointestinal Disorders: Yes Hx Gastroesophageal Reflux: Yes - PSYCHIATRIC Hx Emotional Abuse: No Hx Physical Abuse: No Hx Substance Use: No - SURGICAL HISTORY Hx Angiogram: Yes Hx Cardiac Catheterization: Yes - ANESTHESIA Hx Anesthesia: Yes Hx Anesthesia Reactions: No Hx Malignant Hyperthermia: No Meds Allergies/Adverse Reactions: Allergies Allergy/AdvReac Type Severity Reaction Status Date / Time azithromycin [From Zithromax] AdvReac Intermediate RASH Verified 08/16/16 09:42 Physical Exam - Constitutional Appears: Non-toxic, Agitated - Head Exam Head Exam: ATRAUMATIC, NORMOCEPHALIC - Eye Exam Eye Exam: EOMI, Normal appearance - Respiratory Exam Respiratory Exam: Wheezes, NORMAL BREATHING PATTERN Additional comments: mild diffuse wheezing - Cardiovascular Exam Cardiovascular Exam: Tachycardia, +S1, +S2 - GI/Abdominal Exam GI & Abdominal Exam: Soft. absent: Tenderness - Exam External exam: absent: Ecchymosis, Erythema - Extremities Exam Extremities exam: Positive for: normal capillary refill, pedal edema Additional comments: L worse then R - Back Exam Back exam: absent: CVA tenderness (L), CVA tenderness (R) - Neurological Exam Neurological exam: Alert, Oriented x3 - Skin Skin Exam: Intact, Warm Results - Vital Signs Recent Vital Signs: Last Vital Signs Temp 97.4 F L 08/20/16 10:41 Pulse 115 H 08/20/16 15:00 Resp 20 08/20/16 15:00 BP 116/92 H 08/20/16 15:00 Pulse Ox 97 08/20/16 15:00 - Labs Result Diagrams: 08/20/16 11:25 08/20/16 11:25 Assessment & Plan - Assessment and Plan (Free Text) Plan: 70 yo F w/PMHx of a.fibrillation on coumadin, COPD, CAD, anxiety, presents with one day exacerbation of SOB w/ one day of L chest pain. Also c/o cough with clear sputum and b/l leg swelling. Under observation in telemetry for COPD exacerbation: COPD exacerbation: BNP 1630, CXR: no acute disease, wheezing on physical exam doxycycline ordered Xopenex wli and prn ordered solumedrol 30 q12 IV procal and Bcx pending A. fibrillation: continue home coumadin INR at 2.21 upon admission CAD: continued home medications of metoprolol, lisinopril and diltiazem anxiety: continued home xanax PO PPx measures: home medications of famotidine, coumadin <Shonda Rodriguez - Last Filed: 08/20/16 16:47> Results - Vital Signs Recent Vital Signs: Last Vital Signs Temp 97.8 F 08/20/16 16:19 Pulse 123 H 08/20/16 16:19 Resp 20 08/20/16 16:19 BP 145/93 H 08/20/16 16:19 Pulse Ox 96 08/20/16 16:19 - Labs Result Diagrams: 08/20/16 11:25 08/20/16 11:25 Attending/Attestation - Attestation I have personally seen and examined this patient.: Yes I have fully participated in the care of the patient.: Yes I have reviewed all pertinent clinical information: Yes Notes (Text): I have seen and examined the patient with the resident. This is 70 year old female with history of copd, chf due to systolic dysfunction (ef~35-40%), chronic atrial fibrillation, non obstructive cad who got admitted for shortness of breath and found to have copd exacerbation vs anxiety. Start xopenex, solumedrol, tessalon perles and doxycycline. Her INR is therapeutic. Continue cardizem, digoxin, lisinopril and lopressor. Upon discharge patient will follow up with Dr Parker and Dr Mendez. Dr Shonda Rodriguez
[2016-08-20] MEDS ORDERED: Levalbuterol 0.63 MG/3 ML Inhal Soln UD IH SCH (15:30)
[2016-08-20] MEDS: diltiaZEM 120 mg/24 Hours CD Cap PO SCH (16:17)
[2016-08-20] MEDS: Levalbuterol 0.63 MG/3 ML Inhal Soln UD IH SCH ×2 (16:30→22:10)
[2016-08-20] MEDS: MethylPREDNISolone 40 mg Vial IVP SCH (21:42)
[2016-08-21] MEDS: Levalbuterol 0.63 MG/3 ML Inhal Soln UD IH SCH ×5 (01:55→20:08)
[2016-08-21 08:15] LABS: ADD MANUAL DIFF? NO
[2016-08-21] MEDS: diltiaZEM 120 mg/24 Hours CD Cap PO SCH ×2 (08:19→10:07)
[2016-08-21 08:24] LABS: GRAN # 8.03 (1.4-6.5); LYMPH # 0.9 (1.2-3.4); LYMPH % 9.6 % (22.0-35.0); MEAN CELL VOLUME 88.8 fL (80.0-105.0); MEAN CORPUSCULAR HEMOGLOBIN 30.2 pg (25.0-35.0); MEAN PLATELET VOLUME 9.4 fl (7.0-11.0); MONO # 0.6 (0.1-0.6); MONO % 6.4 % (1.0-6.0); PLATELET COUNT 272 10^3/uL (120.0-450.0); RED CELL DISTRIBUTION WIDTH 14.1 % (11.5-14.5); WHITE BLOOD COUNT 9.6 10^3/ul (4.5-11.0)
[2016-08-21] MEDS ORDERED: Magnesium Oxide 400 mg Tab UD PO ONE (08:30)
[2016-08-21 08:39] LABS: ALB/GLOB RATIO 1.6 (1.1-1.8); ALKALINE PHOSPHATASE 47 U/L (38-133); ALT/SGPT 58 U/L (7-56); AST/SGOT 30 U/L (15-39); BILIRUBIN,TOTAL 0.4 mg/dL (0.2-1.3); BLOOD UREA NITROGEN 18 mg/dL (7-21); CALCIUM 9.5 mg/dL (8.4-10.5); CARBON DIOXIDE 30 mmol/L (21-33); CHLORIDE 99 mmol/L (98-107); GFR AFRICAN-AMERICAN > 60; GLUCOSE,RANDOM 113 mg/dL (70-110); POTASSIUM 4.2 mmol/L (3.6-5.0); SODIUM 134 mmol/L (132-148); TOTAL PROTEIN 6.2 g/dL (5.8-8.3)
[2016-08-21] MEDS: Pantoprazole 40 mg EC Tab PO SCH (10:17)
[2016-08-21] MEDS: MethylPREDNISolone 40 mg Vial IVP SCH ×2 (10:20→21:34)
--- NOTE | 2016-08-21 11:15 | CP.PCM.PN ---
<Franci Whittington - Last Filed: 08/21/16 11:11> Subjective - Date & Time of Evaluation Date of Evaluation: 08/21/16 Time of Evaluation: 11:12 - Subjective Subjective: HOSPITALISTS PROGRESS NOTE Pt is seen and examined at bedside. No acute events overnight. Pt is complaining of shortness of breath. She is currently getting breathing treatment. Pt states that overnight she had one episode of CP pain in center of chest while laying in bed. CP is non-reproducible. Pain did not radiate anywhere else and eventually went away on its own. Patient denies having any CP right now, no N/V/D/C, f/c. Patient does complain of feeling depressed. Denies having any SI or HI. Objective - Vital Signs/Intake and Output Vital Signs (last 24 hours): Temp Pulse Resp BP Pulse Ox 97.6 F 89 18 172/103 H 99 08/21/16 06:00 08/21/16 06:13 08/21/16 06:00 08/21/16 08:26 08/21/16 06:00 Intake and Output: 08/21/16 08/21/16 06:59 18:59 Intake Total 200 Balance 200 - Medications Medications: Current Medications Alprazolam (Xanax) 0.5 mg PO TID PRN; Protocol PRN Reason: Anxiety Stop: 08/27/16 15:02 Last Admin: 08/21/16 10:17 Dose: 0.5 mg Atorvastatin Calcium (Lipitor) 10 mg PO DIN [facility] Last Admin: 08/20/16 16:13 Dose: 10 mg Benzonatate (Tessalon Perles) 100 mg PO TID PRN PRN Reason: Cough Diltiazem HCl (Cardizem Cd) 120 mg PO DAILY [facility] Last Admin: 08/21/16 10:07 Dose: Not Given Doxycycline Hyclate (Doryx) 100 mg PO Q12 [facility] PRN Reason: Protocol Last Admin: 08/21/16 10:17 Dose: 100 mg Furosemide (Lasix) 40 mg IVP DAILY [facility] Last Admin: 08/21/16 10:07 Dose: Not Given Levalbuterol HCl (Xopenex) 0.63 mg IH [id number] [facility] Last Admin: 08/21/16 11:07 Dose: 0.63 mg Levalbuterol HCl (Xopenex) 0.63 mg IH Q2H PRN PRN Reason: Shortness of Breath Lisinopril (Zestril) 2.5 mg PO DAILY [facility] Last Admin: 08/21/16 10:08 Dose: Not Given Methylprednisolone (Solu-Medrol) 30 mg IVP Q12 [facility] Last Admin: 08/21/16 10:20 Dose: 30 mg Metoprolol Tartrate (Lopressor) 25 mg PO BID [facility] Last Admin: 08/21/16 10:07 Dose: Not Given Ondansetron HCl (Zofran Inj) 4 mg IVP Q6H PRN PRN Reason: Nausea/Vomiting Pantoprazole Sodium (Protonix Ec Tab) 40 mg PO ACB [facility] Last Admin: 08/21/16 10:17 Dose: 40 mg Pantoprazole Sodium (Protonix Ec Tab) 40 mg PO ONCE ONE Stop: 08/22/16 08:33 Warfarin Sodium (Coumadin) 5 mg PO MWF@1800 [facility] PRN Reason: Protocol Warfarin Sodium (Coumadin) 5 mg PO SUN@1800 [facility] PRN Reason: Protocol Last Admin: 08/20/16 17:36 Dose: 5 mg Warfarin Sodium (Coumadin) 5 mg PO TUE@1800 [facility] PRN Reason: Protocol Warfarin Sodium (Coumadin) 5 mg PO SAT@1800 [facility] PRN Reason: Protocol - Labs Labs: 08/21/16 06:00 08/21/16 06:00 PT 23.9 Seconds (9.9-11.8) H 08/20/16 11:25 INR 2.21 (0.93-1.08) H 08/20/16 11:25 APTT 35.7 Seconds (23.7-30.8) H 08/20/16 11:25 - Constitutional Appears: Non-toxic, No Acute Distress - Head Exam Head Exam: ATRAUMATIC - Eye Exam Eye Exam: EOMI - ENT Exam ENT Exam: Mucous Membranes Moist - Respiratory Exam Respiratory Exam: Wheezes (diffusely ). absent: Rales, Rhonchi, NORMAL BREATHING PATTERN - Cardiovascular Exam Cardiovascular Exam: REGULAR RHYTHM, +S1, +S2. absent: Gallop, Rubs, Murmur - GI/Abdominal Exam GI & Abdominal Exam: Soft, Normal Bowel Sounds. absent: Distended, Firm, Guarding, Rigid, Tenderness - Extremities Exam Extremities Exam: absent: Pedal Edema, Tenderness - Neurological Exam Neurological Exam: Alert, Awake, Oriented x3 - Psychiatric Exam Psychiatric exam: Normal Affect, Normal Mood - Skin Skin Exam: Dry, Intact, Normal Color, Warm Assessment and Plan - Assessment and Plan (Free Text) Assessment: 70 yo F w/PMHx of a.fibrillation on coumadin, COPD, CAD, anxiety, presents with one day exacerbation of SOB w/ one day of L chest pain and COPD exacerbation. CXR on admission showed no active disease. Trop on admission was negative. ProBNP was elevated at 1630. COPD exacerbation: doxycycline Xopenex wil and prn ordered solumedrol 30 q12 IV tesslan perls procal and Bcx pending Echo from 06/2016 showed Ef of 45% with normal LV size. See full report A. fibrillation: continue home coumadin (per schedule), cardizem 120 mg po qd and lopessor 25 mg po BID INR at 2.21 upon admission CAD: continued home medications of lisinopril and lipitor anxiety: continued home xanax PO PPx measures: Coumadin and protonix Case discussed with attending, Dr. Bruno <Ngoc Bruno - Last Filed: 08/21/16 14:00> Objective - Vital Signs/Intake and Output Vital Signs (last 24 hours): Temp Pulse Resp BP Pulse Ox 97.6 F 89 18 160/88 H 99 08/21/16 06:00 08/21/16 06:13 08/21/16 06:00 08/21/16 10:05 08/21/16 06:00 Intake and Output: 08/21/16 08/21/16 06:59 18:59 Intake Total 200 Balance 200 - Medications Medications: Current Medications Alprazolam (Xanax) 0.5 mg PO TID PRN; Protocol PRN Reason: Anxiety Stop: 08/27/16 15:02 Last Admin: 08/21/16 10:17 Dose: 0.5 mg Atorvastatin Calcium (Lipitor) 10 mg PO DIN [facility] Last Admin: 08/20/16 16:13 Dose: 10 mg Benzonatate (Tessalon Perles) 100 mg PO TID PRN PRN Reason: Cough Diltiazem HCl (Cardizem Cd) 120 mg PO DAILY [facility] Last Admin: 08/21/16 10:07 Dose: Not Given Doxycycline Hyclate (Doryx) 100 mg PO Q12 [facility] PRN Reason: Protocol Last Admin: 08/21/16 10:17 Dose: 100 mg Furosemide (Lasix) 40 mg IVP DAILY [facility] Last Admin: 08/21/16 10:07 Dose: Not Given Levalbuterol HCl (Xopenex) 0.63 mg IH [id number] [facility] Last Admin: 08/21/16 11:07 Dose: 0.63 mg Levalbuterol HCl (Xopenex) 0.63 mg IH Q2H PRN PRN Reason: Shortness of Breath Lisinopril (Zestril) 2.5 mg PO DAILY [facility] Last Admin: 08/21/16 10:08 Dose: Not Given Methylprednisolone (Solu-Medrol) 30 mg IVP Q12 [facility] Last Admin: 08/21/16 10:20 Dose: 30 mg Metoprolol Tartrate (Lopressor) 25 mg PO BID [facility] Last Admin: 08/21/16 10:07 Dose: Not Given Ondansetron HCl (Zofran Inj) 4 mg IVP Q6H PRN PRN Reason: Nausea/Vomiting Pantoprazole Sodium (Protonix Ec Tab) 40 mg PO ACB [facility] Last Admin: 08/21/16 10:17 Dose: 40 mg Pantoprazole Sodium (Protonix Ec Tab) 40 mg PO ONCE ONE Stop: 08/22/16 08:33 Warfarin Sodium (Coumadin) 5 mg PO MWF@1800 [facility] PRN Reason: Protocol Warfarin Sodium (Coumadin) 5 mg PO SUN@1800 [facility] PRN Reason: Protocol Last Admin: 08/20/16 17:36 Dose: 5 mg Warfarin Sodium (Coumadin) 5 mg PO TUE@1800 [facility] PRN Reason: Protocol Warfarin Sodium (Coumadin) 5 mg PO SAT@1800 [facility] PRN Reason: Protocol - Labs Labs: 08/21/16 06:00 08/21/16 06:00 PT 23.9 Seconds (9.9-11.8) H 08/20/16 11:25 INR 2.21 (0.93-1.08) H 08/20/16 11:25 APTT 35.7 Seconds (23.7-30.8) H 08/20/16 11:25 Attending/Attestation - Attestation I have personally seen and examined this patient.: Yes I have fully participated in the care of the patient.: Yes I have reviewed all pertinent clinical information, including history, physical exam and plan: Yes Notes (Text): 08/21/16 13:54 Attending note; Patient seen and examined with resident. Patient is a 70 year old female with history of copd, chf due to systolic dysfunction (ef~35-40%), chronic atrial fibrillation, non obstructive cad who got admitted for shortness of breath and found to have copd exacerbation. Continue xopenex, IV solumedrol, tessalon perles and doxycycline. Her INR is therapeutic. Continue cardizem, lisinopril and lopressor. Continues to have tachycardia upon exertion. Continues to have significant wheezing . Continue oxygen .monitor closely . Physical therapy evaluation requested . Patient is complaining of increasing anxiety . Psychiatric evaluation requested . Upon discharge patient will follow up with and cardiology .
[2016-08-22] MEDS: Levalbuterol 0.63 MG/3 ML Inhal Soln UD IH SCH ×5 (04:03→20:13)
[2016-08-22 07:14] LABS: ADD MANUAL DIFF? NO
[2016-08-22 07:26] LABS: GRAN # 13.73 (1.4-6.5); GRAN % 88.5 % (50.0-68.0); HEMATOCRIT 43.2 % (36.0-48.0); LYMPH % 6.4 % (22.0-35.0); MEAN CELL VOLUME 89.1 fL (80.0-105.0); MEAN CORPUSCULAR HEMOGLOBIN 30.5 pg (25.0-35.0); MEAN CORPUSCULAR HGB CONC 34.3 g/dl (31.0-37.0); MEAN PLATELET VOLUME 9.3 fl (7.0-11.0); MONO # 0.8 (0.1-0.6); MONO % 5.1 % (1.0-6.0); PLATELET COUNT 256 10^3/uL (120.0-450.0); RED CELL DISTRIBUTION WIDTH 13.9 % (11.5-14.5); WHITE BLOOD COUNT 15.5 10^3/ul (4.5-11.0)
[2016-08-22 07:30] LABS: ALB/GLOB RATIO 1.7 (1.1-1.8); ALKALINE PHOSPHATASE 47 U/L (38-133); ALT/SGPT 68 U/L (7-56); AST/SGOT 32 U/L (15-39); BILIRUBIN,TOTAL 0.4 mg/dL (0.2-1.3); BLOOD UREA NITROGEN 17 mg/dL (7-21); CALCIUM 9.3 mg/dL (8.4-10.5); CARBON DIOXIDE 33 mmol/L (21-33); CHLORIDE 96 mmol/L (98-107); GFR AFRICAN-AMERICAN > 60; GLUCOSE,RANDOM 114 mg/dL (70-110); POTASSIUM 4.5 mmol/L (3.6-5.0); SODIUM 134 mmol/L (132-148); TOTAL PROTEIN 6.1 g/dL (5.8-8.3)
[2016-08-22] MEDS ORDERED: Pantoprazole 40 mg EC Tab PO SCH (07:30)
[2016-08-22 07:31] LABS: INR 2.58 (0.93-1.08)
[2016-08-22] MEDS ORDERED: Pantoprazole 40 mg EC Tab PO ONE (08:32)
[2016-08-22] MEDS: Pantoprazole 40 mg EC Tab PO SCH (08:34)
[2016-08-22 08:45] VITALS: RESP 20; O2SAT 99
[2016-08-22] MEDS: MethylPREDNISolone 40 mg Vial IVP SCH ×2 (09:52→21:26)
[2016-08-22] MEDS: diltiaZEM 120 mg/24 Hours CD Cap PO SCH (09:53)
--- NOTE | 2016-08-22 12:49 | CP.PCM.PN ---
Addendum entered and electronically signed by Franci Whittington DO 08/22/16 12:55: Addition to Assessment & Plan: chest pain. Checked troponin which was negative. EKG showed A fib but no ST changes. Cardiology, Dr. Mendez is consulted. Original Note: <Franci Whittington - Last Filed: 08/22/16 12:46> Subjective - Date & Time of Evaluation Date of Evaluation: 08/22/16 Time of Evaluation: 12:46 - Subjective Subjective: HOSPITALISTS PROGRESS NOTE Pt is seen and examined at bedside. No acute events overnight. Patient states that she had one episode of CP last night in center of chest while laying in bed. CP went away spontaneously. Patient denies having any abd pain, N/V/D/C, fevers, chills, SOB. Objective - Vital Signs/Intake and Output Vital Signs (last 24 hours): Temp Pulse Resp BP Pulse Ox 97.7 F 98 H 20 143/100 H 99 08/22/16 08:43 08/22/16 09:53 08/22/16 08:43 08/22/16 09:53 08/22/16 08:43 Intake and Output: 08/22/16 08/22/16 06:59 18:59 Intake Total 500 0 Balance 500 0 - Medications Medications: Current Medications Acetaminophen (Tylenol 325mg Tab) 650 mg PO Q6H PRN PRN Reason: Pain, Mild (1-3) Last Admin: 08/21/16 14:17 Dose: 650 mg Alprazolam (Xanax) 0.5 mg PO TID PRN; Protocol PRN Reason: Anxiety Stop: 08/27/16 15:02 Last Admin: 08/22/16 09:53 Dose: 0.5 mg Atorvastatin Calcium (Lipitor) 10 mg PO DIN [facility] Last Admin: 08/21/16 18:09 Dose: 10 mg Benzonatate (Tessalon Perles) 100 mg PO TID PRN PRN Reason: Cough Digoxin (Lanoxin) 0.25 mg PO 1400 WIL Diltiazem HCl (Cardizem Cd) 120 mg PO DAILY [facility] Last Admin: 08/22/16 09:53 Dose: 120 mg Doxycycline Hyclate (Doryx) 100 mg PO Q12 WIL PRN Reason: Protocol Last Admin: 08/22/16 09:53 Dose: 100 mg Furosemide (Lasix) 40 mg PO DAILY [facility] Levalbuterol HCl (Xopenex) 0.63 mg IH [id number] [facility] Last Admin: 08/22/16 11:07 Dose: 0.63 mg Levalbuterol HCl (Xopenex) 0.63 mg IH Q2H PRN PRN Reason: Shortness of Breath Lisinopril (Zestril) 5 mg PO DAILY [facility] Methylprednisolone (Solu-Medrol) 30 mg IVP Q12 [facility] Last Admin: 08/22/16 09:52 Dose: 30 mg Metoprolol Tartrate (Lopressor) 25 mg PO BID [facility] Last Admin: 08/22/16 09:52 Dose: 25 mg Nicotine (Nicoderm Cq) 1 patch TD DAILY [facility] Last Admin: 08/22/16 11:41 Dose: 1 patch Ondansetron HCl (Zofran Inj) 4 mg IVP Q6H PRN PRN Reason: Nausea/Vomiting Pantoprazole Sodium (Protonix Ec Tab) 40 mg PO ACB [facility] Last Admin: 08/22/16 08:34 Dose: 40 mg Warfarin Sodium (Coumadin) 5 mg PO MWF@1800 WIL PRN Reason: Protocol Last Admin: 08/21/16 18:10 Dose: 5 mg Warfarin Sodium (Coumadin) 5 mg PO SUN@1800 [facility] PRN Reason: Protocol Last Admin: 08/20/16 17:36 Dose: 5 mg Warfarin Sodium (Coumadin) 5 mg PO TUE@1800 WIL PRN Reason: Protocol Warfarin Sodium (Coumadin) 5 mg PO SAT@1800 WIL PRN Reason: Protocol - Labs Labs: 08/22/16 06:45 08/22/16 06:45 PT 27.9 Seconds (9.9-11.8) H 08/22/16 06:45 INR 2.58 (0.93-1.08) H 08/22/16 06:45 APTT 35.7 Seconds (23.7-30.8) H 08/20/16 11:25 - Constitutional Appears: Non-toxic, No Acute Distress - Head Exam Head Exam: ATRAUMATIC - Eye Exam Eye Exam: EOMI - ENT Exam ENT Exam: Mucous Membranes Moist - Respiratory Exam Respiratory Exam: Wheezes (diffusely, improved from yesterday ). absent: Accessory Muscle Use, Clear to Ausculation Bilateral, Rales, Rhonchi, Respiratory Distress - Cardiovascular Exam Cardiovascular Exam: Irregular Rhythm, +S1, +S2. absent: Gallop, Rubs, Murmur - GI/Abdominal Exam GI & Abdominal Exam: Soft, Normal Bowel Sounds. absent: Distended, Firm, Guarding, Rigid, Tenderness - Extremities Exam Extremities Exam: absent: Pedal Edema, Tenderness - Neurological Exam Neurological Exam: Alert, Awake, Oriented x3 - Psychiatric Exam Psychiatric exam: Normal Affect, Normal Mood - Skin Skin Exam: Dry, Intact, Normal Color, Warm Assessment and Plan - Assessment and Plan (Free Text) Assessment: 70 yo F w/PMHx of a.fibrillation on coumadin, COPD, CAD, anxiety, presents with one day exacerbation of SOB w/ one day of L chest pain and COPD exacerbation. CXR on admission showed no active disease. Trop on admission was negative. ProBNP was elevated at 1630. COPD exacerbation: Xopenex wil and prn ordered solumedrol 30 q12 IV tesslan perls blood cultures and procal are negative. Will stop Abx Echo from 06/2016 showed Ef of 45% with normal LV size. See full report A. fibrillation: continue home coumadin (per schedule), cardizem 120 mg po qd and lopessor 25 mg po BID INR at 2.58 Will start pt in digoxin 0.25 mg po qd Consulted cardiology, Dr. Mendez for further recs CAD: continued home medications of lisinopril and lipitor anxiety: continued home xanax PO Consulted psych, Dr. Linton. If patient agreeable, pt will go to in patient psych once medically cleared. If not, outpatient follow up with patient's own psychiatrist (she already has an appointment) PPx measures: Coumadin and protonix Case discussed with attending, Dr. Bruno <Ngoc Bruno - Last Filed: 08/22/16 15:05> Objective - Vital Signs/Intake and Output Vital Signs (last 24 hours): Temp Pulse Resp BP Pulse Ox 97.7 F 98 H 20 143/100 H 99 08/22/16 08:43 08/22/16 14:00 08/22/16 08:43 08/22/16 09:53 08/22/16 08:43 Intake and Output: 08/22/16 08/22/16 06:59 18:59 Intake Total 500 0 Balance 500 0 - Medications Medications: Current Medications Acetaminophen (Tylenol 325mg Tab) 650 mg PO Q6H PRN PRN Reason: Pain, Mild (1-3) Last Admin: 08/21/16 14:17 Dose: 650 mg Alprazolam (Xanax) 0.5 mg PO TID PRN; Protocol PRN Reason: Anxiety Stop: 08/27/16 15:02 Last Admin: 08/22/16 09:53 Dose: 0.5 mg Atorvastatin Calcium (Lipitor) 10 mg PO DIN [facility] Last Admin: 08/21/16 18:09 Dose: 10 mg Benzonatate (Tessalon Perles) 100 mg PO TID PRN PRN Reason: Cough Digoxin (Lanoxin) 0.25 mg PO 1400 [facility] Diltiazem HCl (Cardizem Cd) 120 mg PO DAILY [facility] Last Admin: 08/22/16 09:53 Dose: 120 mg Doxycycline Hyclate (Doryx) 100 mg PO Q12 WIL PRN Reason: Protocol Last Admin: 08/22/16 09:53 Dose: 100 mg Furosemide (Lasix) 40 mg PO DAILY [facility] Levalbuterol HCl (Xopenex) 0.63 mg IH [id number] [facility] Last Admin: 08/22/16 11:07 Dose: 0.63 mg Levalbuterol HCl (Xopenex) 0.63 mg IH Q2H PRN PRN Reason: Shortness of Breath Lisinopril (Zestril) 5 mg PO DAILY [facility] Methylprednisolone (Solu-Medrol) 30 mg IVP Q12 [facility] Last Admin: 08/22/16 09:52 Dose: 30 mg Metoprolol Tartrate (Lopressor) 25 mg PO BID [facility] Last Admin: 08/22/16 09:52 Dose: 25 mg Nicotine (Nicoderm Cq) 1 patch TD DAILY [facility] Last Admin: 08/22/16 11:41 Dose: 1 patch Ondansetron HCl (Zofran Inj) 4 mg IVP Q6H PRN PRN Reason: Nausea/Vomiting Pantoprazole Sodium (Protonix Ec Tab) 40 mg PO ACB [facility] Last Admin: 08/22/16 08:34 Dose: 40 mg Warfarin Sodium (Coumadin) 5 mg PO MWF@1800 [facility] PRN Reason: Protocol Last Admin: 08/21/16 18:10 Dose: 5 mg Warfarin Sodium (Coumadin) 5 mg PO SUN@1800 WIL PRN Reason: Protocol Last Admin: 08/20/16 17:36 Dose: 5 mg Warfarin Sodium (Coumadin) 5 mg PO TUE@1800 WIL PRN Reason: Protocol Warfarin Sodium (Coumadin) 5 mg PO SAT@1800 WIL PRN Reason: Protocol - Labs Labs: 08/22/16 06:45 08/22/16 06:45 PT 27.9 Seconds (9.9-11.8) H 08/22/16 06:45 INR 2.58 (0.93-1.08) H 08/22/16 06:45 APTT 35.7 Seconds (23.7-30.8) H 08/20/16 11:25 Attending/Attestation - Attestation I have personally seen and examined this patient.: Yes I have fully participated in the care of the patient.: Yes I have reviewed all pertinent clinical information, including history, physical exam and plan: Yes Notes (Text): 08/22/16 15:03 Attending note; Patient seen and examined with resident. Patient is a 70 year old female with history of copd, chf due to systolic dysfunction (ef~35-40%), chronic atrial fibrillation, non obstructive CAD who got admitted for shortness of breath and found to have copd exacerbation. Continue xopenex, IV solumedrol, tessalon perles and doxycycline. Respiratory status improved. Physical therapy evaluation requested. A. fib; started on by mouth digoxin. Cardiac enzymes negative. EKG showed rapid A. fib. Cardiology evaluation requested. Her INR is therapeutic. Continue cardizem, digoxin, lisinopril and lopressor. Continue oxygen .monitor closely . Physical therapy evaluation requested . Patient is complaining of increasing anxiety . Psychiatric evaluation appreciated. Continue Xanax. Upon discharge patient will follow up with and cardiology .
--- NOTE | 2016-08-22 12:55 | CON ---
DATE: 08/22/2016 SERVICE: Cardiology. CONSULTING PHYSICIAN: Dr. Mak Mendez. REASON FOR CONSULTATION: Atrial fibrillation, cardiac evaluation, COPD, admitted with exacerbation o f COPD. BRIEF CLINICAL HISTORY: This is a 70-year-old female with a past medical history significant for atr ial fibrillation on Coumadin, COPD, asthma, CAD, anxiety disorder, came in with shortness of breath, found secondary to acute exacerbation of COPD. Denies any chest pain, shortness of breath, any palpi tation, fever or chills. The patient says that does not take regularly Lasix because it causes incre ased urinary frequency. PAST MEDICAL HISTORY: Significant for atrial fibrillation on Coumadin, asthma, COPD, CAD, and anxiet y disorder. PAST SURGICAL HISTORY: Significant for lung resection in 2014. ALLERGIES: AZITHROMYCIN, GETS RASH. CURRENT MEDICATIONS: Pravachol 40 mg, Xanax 0.5 mg, Pepcid 20 mg, Lasix 40 mg, lisinopril 2.5, 25 mg b.i.d. metoprolol tartrate, potassium 10 mEq, Cardizem 120 mg daily, albuterol 2 puffs q. 6 hours, w arfarin 5 mg daily, DuoNeb nebulizer treatment. SOCIAL HISTORY: Denies any history of alcohol abuse. Denies history of smoking now, quit,, but hist ory of 50-pack history of smoking. FAMILY HISTORY: Significant for abdominal cancer. Mother has cervical cancer Recent cardiac workup as follows: The patient had a stress test dated 06/14/[address] myocardial perfusion study, suspicious for ischemia, ejection fraction 37%. The patient had echoc ardiography 06/01/2016 that shows no prolapse, ejection fraction 35%, mild to moderate aortic stenosis, valve area of 1.2 cm2, mild mitral regurgitation, mild tricuspid regurgitation. That leads to the c ardiac catheterization dated 06/29/2016 that showed nonobstructive coronary artery disease, limited onl y to distal LAD diffusely diseased ____, but no focal flow-limiting stenosis noted. Moderately decre ased LV function, ejection fraction 35-40%, EDP was in the range of 20, nonischemic cardiomyopathy, h istory of chronic atrial fibrillation. No gradient across aortic valve noted on pullback. The echo showed mild to moderate aortic stenosis. On cardiac catheterization, no gradient across the aortic v alve noted. At that time, recommendation was made to put aggressive medical therapy, start with digo socorro, diuretic, LADARIUS inhibitor, Coreg and Coumadin for atrial fibrillation and followup echo 3-6 months . Recommended if echo remains stable, ejection fraction by echo 35%, consider AICD. Recommendation dated 06/29/2016. REVIEW OF SYSTEMS: A 14-point review of systems negative except HPI. PHYSICAL EXAMINATION: VITAL SIGNS: Temperature afebrile, heart rate 98, blood pressure 143/100. HEENT: PERRLA. Extraocular muscles intact. NECK: Supple. No carotid bruits. No thyromegaly. CHEST: Clear to auscultation. HEART: S1, S2 regular. ABDOMEN: Soft. EXTREMITIES: Clubbing and cyanosis negative. LABORATORY DATA: Blood workup as follows: WBC 15.5, hemoglobin 14.8, hematocrit 43, platelet count 256. Chemistry shows sodium 134, potassium 4.5, chloride 96, carbon dioxide 33, anion gap of 10, BUN 17, creatinine 0.5. Troponin 0.01. IMPRESSION: Chronic atrial fibrillation on anticoagulation, status post cardiac catheterization, non obstructive coronary artery disease, limited only to distal left anterior descending, no focal flow-l imiting stenosis, ejection fraction 35%, end-diastolic pressure was in the range of 20. No gradient across the aortic valve noted. INR 2.58, therapeutic. RECOMMENDATION; Continue Coreg, digoxin, LADARIUS inhibitor. Followup echo in 3-6 months. If EF remain below 30, we will consider AICD. Continue Coumadin, continue digoxin. We will put low dose of LADARIUS i nhibitors, lisinopril. The patient is on Cardizem as well as metoprolol because to control the heart rate, A-fib with rapid rate, not on Coreg. We will put LADARIUS inhibitor 2.5 and increase as blood pres sure is tolerated. We will follow with you. We will increase to 5 mg from tomorrow and give 2.5 ext ra now Thank you, Dr. Bruno, for providing us the opportunity in taking care of the patient. Treat aggr essively for COPD. Mak Mendez MD cc: [id number] TT: 08/22/2016 12:55:06 Confirmation # [id number] Dictation # [id number] tn
[2016-08-22] MEDS ORDERED: Digoxin 125 mcg (0.125 mg) Tab PO SCH (14:00)
[2016-08-22] MEDS ORDERED: Digoxin 250 mcg (0.25 mg) Tab PO ONE (16:45)
--- NOTE | 2016-08-22 18:34 | CON ---
DATE: 08/22/2016 HISTORY OF PRESENT ILLNESS: Shortly, the patient is a 70-year-old female with multiple med ical issues including AFib, COPD, asthma and anxiety. The patient was admitted to the medical floor for evaluation of chest pain and shortness of breath and bilateral leg swelling. Psych consult was charlene hansen for evaluation of depressive symptoms and anxiety symptoms. The patient was seen and examined today. The patient presented to be alert and oriented, pleasant and cooperative. This play writer is fam iliar with the patient, because the patient is a grandmother of one of this play writer's patient who was discharged from the psychiatric inpatient unit more than 1 year ago. The patient was seen and examin ed. The patient presented to have shortness of breath. The patient reported that her granddaughter currently is in rehabilitation and she is doing much better. The patient reported that her p assed away more than a year ago and she is feeling depressed about that. The patient denied thoughts of killing herself or others. The patient reported that she has followup appointment with local psy chiatrist, Dr. Teixeira, and she has appointment on 08/25 and she is willing to participate in outpatien t program. The patient reported that at times she feels depressed and hopeless, but denied thoughts of killing herself or others. The patient reported to feel anxious and reported to have panic attack s. The patient denied hearing voices, denied seeing things. The patient does not present to be psyc hotic. The patient denied history of being admitted to the psychiatric inpatient unit. Denied suici jett attempts in the past, a strong family history of schizophrenia, as well as disorder. VITAL SIGNS: This play writer reviewed vital signs. Vital signs seem to be stable. Pulse is 98, blood p ressure 143/100. MEDICATIONS: Reviewed. The patient is on Tylenol, Xanax 0.5 mg 3 times a day, Lipitor, digoxin, Car dizem, doxycycline, Lasix, Zestril, Solu-Medrol, Lopressor, Nicoderm, as well as Zofran, Protonix, an d Coumadin. LABORATORY DATA: Reviewed. WBC is 15.5 today. Coagulation reviewed. Chemistry reviewed. Chloride is 96. Toxicology: Digoxin less than 0.4. MENTAL STATUS EXAMINATION: The patient presented to be anxious, intermittent eye contact. Speech wa s normal rate, tone, quality, and quantity. The patient was short of breath. Mood described as, "I feel depressed." Affect was constricted, mood congruent. Thought process was coherent and goal dire cted. Thought content: The patient denied visual, auditory, or tactile hallucinations. Denied para noid ideations. The patient denied thoughts of harming herself or others, denied intent or plan. In sight and judgment are fair. Impulses are well controlled. IMPRESSION: Rule out adjustment disorder, rule out mood and anxiety disorder due to general medical condition. The patient has a AFib, as well as COPD exacerbation. PLAN: This play writer offered admission to the psychiatric inpatient unit for further evaluation and sta bilization and medication initiation and titration. The patient declined that offer. The patient de nied thoughts of killing herself or others, denied intent or plan. The patient is willing to have fo llow up with outpatient psychiatrist, Dr. Teixeira, and has appointment at [facility] on 08/25. While t he patient will be admitted to psychiatric inpatient unit, we will follow up on this patient and advi se accordingly. Thank you very much for letting me participate in the care of your patient. We will follow up and advise accordingly. Shaila Mattson MD cc: [id number] TT: 08/22/2016 18:34:08 Confirmation # [id number] Dictation # [id number] johanne
[2016-08-23] MEDS: Levalbuterol 0.63 MG/3 ML Inhal Soln UD IH SCH ×5 (00:10→15:41)
--- NOTE | 2016-08-23 01:39 | CARD ---
APPROVED REPORT EKG Measurement Heart [id number] <Conclusion> Atrial fibrillation with rapid ventricular response with premature ventricular or aberrantly conducted complexes Nonspecific ST and T wave abnormality, probably digitalis effect Abnormal ECG
[2016-08-23 07:09] LABS: HEMATOCRIT 45.6 % (36.0-48.0); MEAN CELL VOLUME 89.2 fL (80.0-105.0); MEAN CORPUSCULAR HEMOGLOBIN 30.7 pg (25.0-35.0); MEAN CORPUSCULAR HGB CONC 34.4 g/dl (31.0-37.0); MEAN PLATELET VOLUME 9.3 fl (7.0-11.0); RED CELL DISTRIBUTION WIDTH 13.9 % (11.5-14.5)
[2016-08-23 07:24] LABS: BLOOD UREA NITROGEN 21 mg/dL (7-21); CALCIUM 9.3 mg/dL (8.4-10.5); CARBON DIOXIDE 32 mmol/L (21-33); CHLORIDE 94 mmol/L (98-107); GFR AFRICAN-AMERICAN > 60; GLUCOSE,RANDOM 116 mg/dL (70-110); POTASSIUM 4.7 mmol/L (3.6-5.0); SODIUM 132 mmol/L (132-148)
[2016-08-23 08:24] VITALS: BP 150/91; TEMP 99
[2016-08-23] MEDS: Pantoprazole 40 mg EC Tab PO SCH (08:42)
--- NOTE | 2016-08-23 09:59 | CP.PCM.DIS ---
<Franci Whittington - Last Filed: 08/23/16 14:38> Provider - Provider Date of Admission: 08/21/16 13:52 Attending physician: Ngoc Bruno MD Consults: Cardio: Dr. Mendez Psych: Dr. Mattson Time Spent in preparation of Discharge (in minutes): 45 Diagnosis - Discharge Diagnosis (1) Anxiety Status: Chronic (2) Atrial fibrillation Status: Chronic (3) CHF (congestive heart failure) Status: Chronic (4) COPD (chronic obstructive pulmonary disease) Status: Chronic Hospital Course - Lab Results Lab Results: Most Recent Lab Values WBC 13.0 10^3/ul (4.5-11.0) H 08/23/16 06:40 RBC 5.11 10^6/uL (3.5-6.1) 08/23/16 06:40 Hgb 15.7 gm/dL (12.0-16.0) 08/23/16 06:40 Hct 45.6 % (36.0-48.0) 08/23/16 06:40 MCV 89.2 fL (80.0-105.0) 08/23/16 06:40 MCH 30.7 pg (25.0-35.0) 08/23/16 06:40 MCHC 34.4 g/dl (31.0-37.0) 08/23/16 06:40 RDW 13.9 % (11.5-14.5) 08/23/16 06:40 Plt Count 255 10^3/uL (120.0-450.0) 08/23/16 06:40 MPV 9.3 fl (7.0-11.0) 08/23/16 06:40 Gran % 88.5 % (50.0-68.0) H 08/22/16 06:45 Lymph % (Auto) 6.4 % (22.0-35.0) L 08/22/16 06:45 Mitchell % (Auto) 5.1 % (1.0-6.0) 08/22/16 06:45 Eos % (Auto) 0.0 % (1.5-5.0) L 08/22/16 06:45 Baso % (Auto) 0.0 % (0.0-3.0) 08/22/16 06:45 Gran # 13.73 (1.4-6.5) H 08/22/16 06:45 Lymph # 1.0 (1.2-3.4) L 08/22/16 06:45 Mitchell # 0.8 (0.1-0.6) H 08/22/16 06:45 Eos # 0.0 (0.0-0.7) 08/22/16 06:45 Baso # 0.00 K/mm3 (0.0-2.0) 08/22/16 06:45 PT 27.9 Seconds (9.9-11.8) H 08/22/16 06:45 INR 2.58 (0.93-1.08) H 08/22/16 06:45 APTT 35.7 Seconds (23.7-30.8) H 08/20/16 11:25 pO2 43 mm/Hg (30-55) 08/20/16 11:25 VBG pH 7.38 (7.32-7.43) 08/20/16 11:25 VBG pCO2 54.0 (40-60) 08/20/16 11:25 VBG HCO3 31.9 mmol/l (21-28) H 08/20/16 11:25 VBG Total CO2 33.6 mmol.L (22-28) H 08/20/16 11:25 VBG O2 Sat (Calc) 83.5 % (40-65) H 08/20/16 11:25 VBG Base Excess 5.3 mmol/L (0.0-2.0) H 08/20/16 11:25 VBG Potassium 4.5 mmol/L (3.6-5.2) 08/20/16 11:25 Sodium 133.0 mmol/L (132-148) 08/20/16 11:25 Chloride 99.0 mmol/L (98-107) 08/20/16 11:25 Glucose 88 mg/dl (65-105) 08/20/16 11:25 Lactate 1.5 mmol/L (0.7-2.1) 08/20/16 11:25 FiO2 21.0 % 08/20/16 11:25 Sodium 132 mmol/L (132-148) 08/23/16 06:40 Potassium 4.7 mmol/L (3.6-5.0) 08/23/16 06:40 Chloride 94 mmol/L (98-107) L 08/23/16 06:40 Carbon Dioxide 32 mmol/L (21-33) 08/23/16 06:40 Anion Gap 11 (10-20) 08/23/16 06:40 BUN 21 mg/dL (7-21) 08/23/16 06:40 Creatinine 0.6 mg/dL (0.5-1.4) 08/23/16 06:40 Est GFR ( Amer) > 60 08/23/16 06:40 Est GFR (Non-Af Amer) > 60 08/23/16 06:40 POC Glucose (mg/dL) 122 mg/dL (65-110) H 08/21/16 02:55 Random Glucose 116 mg/dL (70-110) H 08/23/16 06:40 Calcium 9.3 mg/dL (8.4-10.5) 08/23/16 06:40 Magnesium 1.6 mg/dL (1.7-2.2) L 08/20/16 11:25 Total Bilirubin 0.4 mg/dL (0.2-1.3) 08/22/16 06:45 AST 32 U/L (15-39) 08/22/16 06:45 ALT 68 U/L (7-56) H 08/22/16 06:45 Alkaline Phosphatase 47 U/L (38-133) 08/22/16 06:45 Lactate Dehydrogenase 518 U/L (333-699) 08/20/16 11:25 Total Creatine Kinase 70 U/L (35-230) 08/20/16 11:25 Troponin I < 0.01 ng/mL 08/22/16 07:00 NT-Pro-B Natriuret Pep 1630 pg/mL (0-450) H 08/20/16 11:25 Total Protein 6.1 g/dL (5.8-8.3) 08/22/16 06:45 Albumin 3.8 g/dL (3.0-4.8) 08/22/16 06:45 Globulin 2.3 gm/dL 08/22/16 06:45 Albumin/Globulin Ratio 1.7 (1.1-1.8) 08/22/16 06:45 Procalcitonin < 0.05 NG/ML (0.19-0.49) L 08/21/16 06:00 Venous Blood Potassium 4.5 mmol/L (3.6-5.2) 08/20/16 11:25 Digoxin < 0.4 ng/mL (0.8-2.0) L 08/22/16 07:00 - Hospital Course Hospital Course: 70 year old female with past medical history of a fib on coumadin, COPD, asthma , CAD anxiety is admitted to hospital for COPD exacerbation, CP r/o ACS and B/L LE swelling. ACS was ruled out with negative trops. On EKG, no ST changes were noted. CXR showed no active disease. ProBNP was elevated on admission. Patient received breathing treatments, Lasixs and steroids. Patient continued to have episodes of tachycardia. Cardiology was consulted and patient was started on digoxin. Patient continued to be anxious during hospital stay. Psych was consulted and recommended in patient psych treatment. However, patient refused. Patient has an appointment with her psychiatrist, Dr. Verma on August 25, 2016. Patient is told to follow up with local company tanker driver, Dr. Huang upon discharge. - Date & Time of H&P Date of H&P: 08/23/16 Time of H&P: 14:39 Discharge Exam - Head Exam Head Exam: ATRAUMATIC - Eye Exam Eye Exam: EOMI Pupil Exam: PERRL - ENT Exam ENT Exam: Mucous Membranes Moist - Respiratory Exam Respiratory Exam: Wheezes, NORMAL BREATHING PATTERN. absent: Accessory Muscle Use, Rales, Rhonchi, Respiratory Distress - Cardiovascular Exam Cardiovascular Exam: REGULAR RHYTHM, +S1, +S2. absent: Diastolic murmur, Gallop , Rubs, Systolic Murmur - GI/Abdominal Exam GI & Abdominal Exam: Normal Bowel Sounds, Soft, Unremarkable. absent: Distended , Firm, Guarding, Rigid, Tenderness - Extremities Exam Additional comments: no edema or tenderness - Neurological Exam Neurological exam: Alert, Oriented x3 - Psychiatric Exam Psychiatric exam: Normal Affect, Normal Mood - Skin Skin Exam: Dry, Intact, Normal Color, Warm Discharge Plan - Discharge Medications Prescriptions: Albuterol HFA [Ventolin HFA 90 mcg/actuation (8 g)] 1 puff IH Q6 PRN #1 PRN Reason: Shortness Of Breath ALPRAZolam [Xanax] 0.5 mg PO TID PRN #6 PRN Reason: Anxiety Atorvastatin [Lipitor] 10 mg PO DIN #30 tab Digoxin [Lanoxin] 0.25 mg PO 1400 #30 tab diltiaZEM CD [Cardizem CD] 120 mg PO DAILY #30 Fluticasone/Salmeterol [Advair 250-50 Diskus] 1 each IH BID #1 blst.w.dev Furosemide [Lasix] 40 mg PO DAILY PRN #30 PRN Reason: Swelling Lisinopril [Zestril] 2.5 mg PO DAILY #30 Methylprednisolone [Medrol Dose Pack (21 tabs)] See Taper PO DAILY #21 mg Metoprolol Tartrate [Lopressor] 25 mg PO BID #60 Pantoprazole [Protonix EC Tab] 40 mg PO ACB #30 ect Warfarin Sodium [Jantoven] 5 mg PO Q6XW #30 - Follow Up Plan Condition: FAIR Disposition: HOME/ ROUTINE Instructions: Atrial Fibrillation (DC), How to Stop Smoking (DC), Cigarette Smoking and Your Health (GEN), COPD (Chronic Obstructive Pulmonary Disease) (DC) Additional Instructions: Patient is to follow up with PMD upon discharge. Patient is to follow up with local company tanker driver, Dr. Wright within a week of discharge. Patient is to follow up with psychiatrist, Dr. Verma upon discharge. She has an appointment on 08/[address] Verma in his office. Patient is discharged with the following medications: Ventolin, Advair, Medrol dose pack, xanax 6 tabs, lipitor, digoxin, cardizem, lasixs, zestril, lopressor , warfarin. Some of the medications are e-prescribed to [facility]. The rest of the medication scripts will be given to patient before discharge, Referrals: Seamus Wright MD [Staff Provider] - <Ngoc Bruno - Last Filed: 08/23/16 16:33> Provider - Provider Date of Admission: 08/21/16 13:52 Attending physician: Ngoc Bruno MD Hospital Course - Lab Results Lab Results: Most Recent Lab Values WBC 13.0 10^3/ul (4.5-11.0) H 08/23/16 06:40 RBC 5.11 10^6/uL (3.5-6.1) 08/23/16 06:40 Hgb 15.7 gm/dL (12.0-16.0) 08/23/16 06:40 Hct 45.6 % (36.0-48.0) 08/23/16 06:40 MCV 89.2 fL (80.0-105.0) 08/23/16 06:40 MCH 30.7 pg (25.0-35.0) 08/23/16 06:40 MCHC 34.4 g/dl (31.0-37.0) 08/23/16 06:40 RDW 13.9 % (11.5-14.5) 08/23/16 06:40 Plt Count 255 10^3/uL (120.0-450.0) 08/23/16 06:40 MPV 9.3 fl (7.0-11.0) 08/23/16 06:40 Gran % 88.5 % (50.0-68.0) H 08/22/16 06:45 Lymph % (Auto) 6.4 % (22.0-35.0) L 08/22/16 06:45 Mitchell % (Auto) 5.1 % (1.0-6.0) 08/22/16 06:45 Eos % (Auto) 0.0 % (1.5-5.0) L 08/22/16 06:45 Baso % (Auto) 0.0 % (0.0-3.0) 08/22/16 06:45 Gran # 13.73 (1.4-6.5) H 08/22/16 06:45 Lymph # 1.0 (1.2-3.4) L 08/22/16 06:45 Mitchell # 0.8 (0.1-0.6) H 08/22/16 06:45 Eos # 0.0 (0.0-0.7) 08/22/16 06:45 Baso # 0.00 K/mm3 (0.0-2.0) 08/22/16 06:45 PT 27.9 Seconds (9.9-11.8) H 08/22/16 06:45 INR 2.58 (0.93-1.08) H 08/22/16 06:45 APTT 35.7 Seconds (23.7-30.8) H 08/20/16 11:25 pO2 43 mm/Hg (30-55) 08/20/16 11:25 VBG pH 7.38 (7.32-7.43) 08/20/16 11:25 VBG pCO2 54.0 (40-60) 08/20/16 11:25 VBG HCO3 31.9 mmol/l (21-28) H 08/20/16 11:25 VBG Total CO2 33.6 mmol.L (22-28) H 08/20/16 11:25 VBG O2 Sat (Calc) 83.5 % (40-65) H 08/20/16 11:25 VBG Base Excess 5.3 mmol/L (0.0-2.0) H 08/20/16 11:25 VBG Potassium 4.5 mmol/L (3.6-5.2) 08/20/16 11:25 Sodium 133.0 mmol/L (132-148) 08/20/16 11:25 Chloride 99.0 mmol/L (98-107) 08/20/16 11:25 Glucose 88 mg/dl (65-105) 08/20/16 11:25 Lactate 1.5 mmol/L (0.7-2.1) 08/20/16 11:25 FiO2 21.0 % 08/20/16 11:25 Sodium 132 mmol/L (132-148) 08/23/16 06:40 Potassium 4.7 mmol/L (3.6-5.0) 08/23/16 06:40 Chloride 94 mmol/L (98-107) L 08/23/16 06:40 Carbon Dioxide 32 mmol/L (21-33) 08/23/16 06:40 Anion Gap 11 (10-20) 08/23/16 06:40 BUN 21 mg/dL (7-21) 08/23/16 06:40 Creatinine 0.6 mg/dL (0.5-1.4) 08/23/16 06:40 Est GFR ( Amer) > 60 08/23/16 06:40 Est GFR (Non-Af Amer) > 60 08/23/16 06:40 POC Glucose (mg/dL) 122 mg/dL (65-110) H 08/21/16 02:55 Random Glucose 116 mg/dL (70-110) H 08/23/16 06:40 Calcium 9.3 mg/dL (8.4-10.5) 08/23/16 06:40 Magnesium 1.6 mg/dL (1.7-2.2) L 08/20/16 11:25 Total Bilirubin 0.4 mg/dL (0.2-1.3) 08/22/16 06:45 AST 32 U/L (15-39) 08/22/16 06:45 ALT 68 U/L (7-56) H 08/22/16 06:45 Alkaline Phosphatase 47 U/L (38-133) 08/22/16 06:45 Lactate Dehydrogenase 518 U/L (333-699) 08/20/16 11:25 Total Creatine Kinase 70 U/L (35-230) 08/20/16 11:25 Troponin I < 0.01 ng/mL 08/22/16 07:00 NT-Pro-B Natriuret Pep 1630 pg/mL (0-450) H 08/20/16 11:25 Total Protein 6.1 g/dL (5.8-8.3) 08/22/16 06:45 Albumin 3.8 g/dL (3.0-4.8) 08/22/16 06:45 Globulin 2.3 gm/dL 08/22/16 06:45 Albumin/Globulin Ratio 1.7 (1.1-1.8) 08/22/16 06:45 Procalcitonin < 0.05 NG/ML (0.19-0.49) L 08/21/16 06:00 Venous Blood Potassium 4.5 mmol/L (3.6-5.2) 08/20/16 11:25 Digoxin < 0.4 ng/mL (0.8-2.0) L 08/22/16 07:00 Attending/Attestation - Attestation I have personally seen and examined this patient.: Yes I have fully participated in the care of the patient.: Yes I have reviewed all pertinent clinical information, including history, physical exam and plan: Yes Notes (Text): 08/23/16 16:25 Attending note; Patient seen and examined with resident. Patient is a 70 year old female with history of copd, chf due to systolic dysfunction (ef~35-40%), chronic atrial fibrillation, non obstructive CAD who got admitted for shortness of breath and found to have copd exacerbation. Continue xopenex, IV solumedrol, tessalon perles and doxycycline. Respiratory status improved. Physical therapy evaluation requested. A. fib; started on by mouth digoxin. Cardiac enzymes negative. EKG showed rapid A. fib. Cardiology evaluation requested. Her INR is therapeutic. Continue cardizem, digoxin, lisinopril and lopressor. Continue oxygen .monitor closely. Physical therapy evaluation Appreciated. Patient is complaining of increasing anxiety . Psychiatric evaluation appreciated. Continue Xanax. patient will follow up with on sunday. Patient did not want to go to psychiatric floor for anxiety treatment. Upon discharge patient will follow up with and cardiology . patient will follow-up pulmonary Dr. Wright next week. diagnosis; COPD exacerbation A. fib Anxiety
[2016-08-23] MEDS ORDERED: Digoxin 125 mcg (0.125 mg) Tab PO SCH (10:00)
[2016-08-23] MEDS: diltiaZEM 120 mg/24 Hours CD Cap PO SCH (10:53)
[2016-08-23] MEDS: MethylPREDNISolone 40 mg Vial IVP SCH (11:35)
--- NOTE | 2016-08-23 13:19 | PN ---
DATE: 08/23/2016 The patient is in room 374, bed 1. REASON FOR CONSULTATION: Atrial fibrillation, COPD. HISTORY OF PRESENT ILLNESS: The patient is a 70-year-old female, known to have atrial fibrillation, COPD, asthma, CAD, anxiety disorder, admitted with exacerbation of COPD with shortness of breath. De nies chest pain, palpitation. The patient is feeling better now. Her breathing is improved. The pa tieramiro is poorly compliant with Lasix because of increasing frequency of urination. The patient's det barby cardiac history has been mentioned in our consult of 08/22/2016. PHYSICAL EXAMINATION: VITAL SIGNS: Blood pressure 150/91, respirations 20, pulse 98, temperature 99. HEAD: Normocephalic. EYES: Pupils normal. Conjunctivae are normal. NOSE AND THROAT: Normal. NECK: JVP low. Carotids equal. THORAX: AP diameter normal. LUNGS: No significant rales. CARDIOVASCULAR: S1, S2. Irregular rhythm due to atrial fibrillation. ABDOMEN: Soft, nontender, no organomegaly. EXTREMITIES: No clubbing, no cyanosis. LABORATORY DATA: WBC 13.0, hemoglobin 15.7, hematocrit 45.6, platelets 255. Sodium 132, potassium 4 .7, BUN 21, creatinine 0.6, random glucose 116, calcium 9.3. Troponin less than 0.01. DIAGNOSES: Chronic atrial fibrillation, on anticoagulation, status post cardiac catheterization, non obstructive coronary artery disease, limited only to distal left anterior descending, no focal flow-l imiting stenosis. Ejection fraction 35%, end diastolic pressure was in the range of 20. No gradient across the aortic valve noted. PLAN: The patient's prothrombin time is 27.9, INR 2.58, which is therapeutic. The patient is on war farin 5 mg Sunday, Sunday, Sunday, Cardizem-CD 120 daily, warfarin 5 mg Sunday, Sunday and ay, 5 mg Sunday, 5 mg Sunday, Doryx 100 mg q. 12 hours, digoxin 0.25 p.o. daily, furosemide 40 mg p. o. daily, Lipitor 10 mg p.o. daily, metoprolol 25 b.i.d., Protonix 40 p.o. daily, methylprednisone 30 mg IV q. 12 hours, lisinopril 5 mg daily. The patient's blood pressure is 150/91. We will change L opressor to 50 mg b.i.d. Will follow with you. Mak Blake MD cc: [id number] TT: 08/23/2016 13:19:25 Confirmation # [id number] Dictation # [id number] rn
[2016-08-23] MEDS ORDERED: Digoxin 250 mcg (0.25 mg) Tab PO SCH (14:00)
[2016-08-23 15:16] VITALS: PULSE 86
[2016-08-23 15:29] VITALS: PULSE 104
--- NOTE | 2016-08-23 17:27 | PN ---
DATE: 08/23/2016 This patient was followed up today. The patient was offered admission to the psychiatric inpatient [facility] for further medication management and supportive therapy as well as observation and stabilization . The patient declined that offer. The patient still presents to be anxious and depressed, but jacqui ed thoughts of harming herself or others, denied intent or plan. VITAL SIGNS: Are checked. The patient is still tachycardic, pulse is 104, blood pressure 150/91. MEDICATIONS: Reviewed. The patient is on Xanax 0.5 mg 3 times a day p.r.n. Also, digoxin, Cardizem , doxycycline, Lasix, Xopenex, Solu-Medrol, Coumadin, Protonix, Nicoderm, Lopressor as well as lisino pril. LABORATORY DATA: Reviewed. WBC cells going down, 13.0 today. MENTAL STATUS EXAMINATION: The patient appears to be alert and oriented, appears to be anxious, shor t of breath. Intermittent eye contact. Speech was normal rate, tone, quality, and quantity. Mood d escribed as "I feel anxious." Affect was constricted, but reactive, mood congruent. Thought process was coherent and goal directed. Thought content: The patient denied visual, auditory, or tactile h allucinations, denied paranoid ideations. The patient denied thoughts of harming herself or others, denied intent or plan. Insight and judgment are improving. Impulses are well controlled. IMPRESSION: Rule out major depressive disorder, rule out anxiety and mood disorder due to general me dical condition. PLAN: The patient has followup appointment with Dr. Teixeira, local psychiatrist. The patient has an a ppointment on Sunday. The patient was advised to take medication as it was prescribed. From this w ambika's perspective, the patient might benefit from staying in the hospital, in the psychiatric inpat ient unit, but does not meet the criteria for involuntary commitment. The patient does not present t o be psychotic, suicidal or disorganized. The patient needs to be followed up with psychiatrist as a n outpatient. Thank you very much for letting him participate in the care of your patient. I will sign off. Shaila Mattson MD cc: [id number] TT: 08/23/2016 17:26:42 Confirmation # [id number] Dictation # [id number] dn
== END 2016-08-23 16:38 | disposition home or self-care (01) | DRG 191 ==
LOC: ED 10:40 → ERH 13:42 → 3RSO 15:28 → OBSVTOIN 08-21 13:52 → INTOOBSV 08-22 10:34
PROVIDERS: ADMIT Internal Medicine; ATTEND Internal Medicine
PROC: 3E0F7GC Introduction of Other Therapeutic Substance into Respiratory Tract, Via Natural or Artificial Opening (ICD-10-PCS; principal; 2016-08-20)
DX: J44.1 Chronic obstructive pulmonary disease with (acute) exacerbation (principal); I50.22 Chronic systolic (congestive) heart failure; I42.9 Cardiomyopathy, unspecified; I11.0 Hypertensive heart disease with heart failure; I48.2 Chronic atrial fibrillation; I25.10 Atherosclerotic heart disease of native coronary artery without angina pectoris; F41.0 Panic disorder [episodic paroxysmal anxiety]; Z79.01 Long term (current) use of anticoagulants; Z91.19 Patient's noncompliance with other medical treatment and regimen; Z87.891 Personal history of nicotine dependence; Z80.8 Family history of malignant neoplasm of other organs or systems; Z80.49 Family history of malignant neoplasm of other genital organs

== ENCOUNTER 2016-09-24 10:06 | Emergency (ER) | payer OTHER, MEDICARE ==
[2016-09-24 10:06] VITALS: PULSE 86; BMI 29.2
[2016-09-24 10:21] VITALS: O2SAT 96
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
[2016-09-24 10:49] LABS: BASO # 0.01 K/mm3 (0.0-2.0); BASO % 0.2 % (0.0-3.0); EOS # 0.1 (0.0-0.7); EOS % 0.8 % (1.5-5.0); GRAN # 4.46 (1.4-6.5); GRAN % 68.9 % (50.0-68.0); HEMOGLOBIN 13.8 gm/dL (12.0-16.0); LYMPH # 1.4 (1.2-3.4); LYMPH % 21.4 % (22.0-35.0); MEAN CELL VOLUME 89.7 fL (80.0-105.0); MEAN CORPUSCULAR HEMOGLOBIN 30.8 pg (25.0-35.0); MEAN CORPUSCULAR HGB CONC 34.3 g/dl (31.0-37.0); MEAN PLATELET VOLUME 8.5 fl (7.0-11.0); MONO # 0.6 (0.1-0.6); MONO % 8.7 % (1.0-6.0); PLATELET COUNT 236 10^3/uL (120.0-450.0); RBC 4.48 10^6/uL (3.5-6.1); RED CELL DISTRIBUTION WIDTH 13.9 % (11.5-14.5); WHITE BLOOD COUNT 6.5 10^3/ul (4.5-11.0)
[2016-09-24 11:50] LABS: INR 2.55 (0.93-1.08); PARTIAL THROMBOPLASTIN TIME 40.5 Seconds (23.7-30.8); PROTHROMBIN TIME 27.5 Seconds (9.9-11.8)
[2016-09-24 12:28] VITALS: BP 118/76; PULSE 90; RESP 18; TEMP 98
--- NOTE | 2016-09-24 12:56 | RAD ---
HISTORY: Trauma. Relevant surgical history: Left lung resection. COMPARISON: 08/20/2016. Chest radiograph. 05/21/2015 CT thorax, lung cancer screening. TECHNIQUE: Chest PA and lateral FINDINGS: LUNGS: No active pulmonary disease. PLEURA: No significant pleural effusion identified. No pneumothorax apparent. CARDIOVASCULAR: Normal. OSSEOUS STRUCTURES: No significant abnormalities. VISUALIZED UPPER ABDOMEN: Normal. OTHER FINDINGS: None. IMPRESSION: No active disease. No significant interval change compared to the prior examination(s).
--- NOTE | 2016-09-24 20:18 | CARD ---
APPROVED REPORT EKG Measurement Heart [id number] <Conclusion> Atrial fibrillation ST & T wave abnormality, consider inferolateral ischemia or digitalis effect Abnormal ECG
== END 2016-09-24 12:30 | disposition home or self-care (01) ==
LOC: ED 10:06
DX: S20.219A Contusion of unspecified front wall of thorax, initial encounter (principal); V49.49XA Driver injured in collision with other motor vehicles in traffic accident, initial encounter; Y92.410 Unspecified street and highway as the place of occurrence of the external cause

== ENCOUNTER 2017-04-03 09:50 | Emergency (ER) | payer MEDICARE ==
[2017-04-03 09:50] VITALS: PULSE 86; BMI 29.2
[2017-04-03 10:06] VITALS: RESP 18; TEMP 97.6
--- NOTE | 2017-04-03 10:24 | ED PDOC ---
Arrival/HPI - General Chief Complaint: Shortness Of Breath Time Seen by Provider: 04/03/17 10:01 Historian: Patient - History of Present Illness Narrative History of Present Illness (Text): 04/03/17 10:20 A 71 year old female, whose past medical history includes COPD, CHF, A -Fib, on Warfarin, presents to the emergency department complaining of shortness of breath for approximately 7 days. Patient reports she was here 2 days ago for similar complaint and was prescribed Predisone but has only taken one days worth of it. States she was up all night "gagging up phlegm" and had taken Ventolin but had moderate relief. Patient notes also experiencing neck aches, upper back pain, and cough with phlegm associated with occasional posttussive chest pain. Denies any fever or any other complaints at this time. PMD: Dr. Casas Patient Relations Director: Dr. Mendez Past Medical History - Infectious Disease Hx of Infectious Diseases: None - Cardiac Hx Cardiac Disorders: Yes Hx Atrial Fibrillation: Yes Hx Congestive Heart Failure: Yes Hx Hypertension: Yes - Pulmonary Hx Respiratory Disorders: Yes Hx Chronic Obstructive Pulmonary Disease (COPD): Yes - Neurological Hx Neurological Disorder: Yes Hx Dizziness: Yes (and lightheaded since june 2015) Other/Comment: headaches that radiate to back of neck on and off x 15 yrs, "charley horses" to feet ankles legs and c/o hands "lock up" since june 2015 - HEENT Hx HEENT Disorder: No - Renal Hx Renal Disorder: No - Endocrine/Metabolic Hx Endocrine Disorders: No - Hematological/Oncological Hx Blood Disorders: No - Integumentary Hx Dermatological Disorder: No - Musculoskeletal/Rheumatological Hx Musculoskeletal Disorders: No Hx Falls: No - Gastrointestinal Hx Gastrointestinal Disorders: Yes Hx Gastroesophageal Reflux: Yes - Genitourinary/Gynecological Hx Genitourinary Disorders: No - Psychiatric Hx Psychophysiologic Disorder: Yes Hx Anxiety: Yes Hx Depression: Yes Hx Emotional Abuse: No Hx Physical Abuse: No Hx Substance Use: No - Surgical History Hx Cardiac Catheterization: Yes Other/Comment: robotic left lower wedge resection and lymphaderectomy 06/2015, polypectomy - Anesthesia Hx Anesthesia: Yes Hx Anesthesia Reactions: No Hx Malignant Hyperthermia: No - Suicidal Assessment Feels Threatened In Home Enviroment: No Family/Social History - Physician Review Nursing Documentation Reviewed: Yes Family/Social History: No Known Family HX Smoking Status: Light Smoker < 10 Cigarettes Daily Hx Alcohol Use: No Hx Substance Use: No Allergies/Home Meds Allergies/Adverse Reactions: Allergies azithromycin [From Zithromax] Adverse Reaction (Intermediate, Verified 04/03/17 10:00) RASH "JUST DOES NOT WORK" Home Medications: Home Meds Medication Instructions Recorded Confirmed Sertraline [Zoloft] 50 mg PO DAILY 04/01/17 04/03/17 Review of Systems - Physician Review All systems were reviewed & negative as marked: Yes - Review of Systems Constitutional: absent: Fevers Respiratory: SOB, Cough (with phlegm) Cardiovascular: Chest Pain (occasional chest pain associated with cough) Gastrointestinal: absent: Abdominal Pain Musculoskeletal: Back Pain (upper back pain), Other (neck ache) Physical Exam Vital Signs Reviewed: Yes Vital Signs Temp Pulse Resp BP Pulse Ox 04/03/17 14:44 68 18 132/70 97 04/03/17 13:00 65 18 135/69 98 04/03/17 10:57 138/72 04/03/17 10:56 67 18 138/72 97 04/03/17 10:19 18 98 04/03/17 09:50 97.6 F 77 18 133/74 97 Temperature: Afebrile Blood Pressure: Normal Pulse: Regular Respiratory Rate: Normal Appearance: Positive for: Well-Appearing Pain Distress: None Mental Status: Positive for: Alert and Oriented X 3 - Systems Exam Head: Present: Atraumatic, Normocephalic Pupils: Present: PERRL Extroacular Muscles: Present: EOMI Conjunctiva: Present: Normal Ears: Present: Normal Mouth: Present: Moist Mucous Membranes Pharnyx: Present: Normal. No: ERYTHEMA Nose (Internal): Present: Normal Inspection, Rhinorrhea Neck: Present: Normal Range of Motion. No: Meningeal Signs, MIDLINE TENDERNESS , Paraspinal Tenderness, Bruit Respiratory/Chest: Present: Wheezes (bilaterally), Other (decreased air entry). No: Retracting Cardiovascular: Present: Regular Rate and Rhythm, Normal S1, S2. No: Murmurs Abdomen: Present: Normal Bowel Sounds. No: Tenderness, Distention, Peritoneal Signs Back: Present: Normal Inspection Upper Extremity: Present: Normal Inspection. No: Cyanosis, Edema Lower Extremity: Present: Edema (trace edema) Neurological: Present: GCS=15, CN II-XII Intact, Speech Normal Skin: Present: Warm, Dry, Normal Color. No: Rashes Psychiatric: Present: Alert, Oriented x 3, Normal Insight, Normal Concentration Medical Decision Making ED Course and Treatment: 04/03/17 10:25 Impression: 71 year old with shortness of breath and cough with phlegm. Physical exam shows bilateral wheezing with decreased air entry, no retractions ; trace edema in of lower extremity. Differential Diagnosis included but are not limited to: Viral Syndrome/URI vs COPD Exacerbation vs CHF Exacerbation Plan: -- EKG -- Chest X-ray -- Labs -- Duoneb -- Lasix -- Medrol -- Venous Blood Gas -- Serology -- Urinalysis -- Blood Culture -- Reassess and disposition Prior Visits: Notes and results from previous visits were reviewed. Patient was last seen in the emergency department on 04/01/2017 for shortness of breath. Patient was discharged home. Progress Notes: EKG: Ordered, reviewed, and independently interpreted the EKG. Rate : 73 BPM Rhythm : Atrial Fibrillation Interpretation : No ST-segment elevations or depressions, no T-wave inversions, normal intervals. Comparison : No previous EKG for comparison. 04/03/2017 11:54 Chest X-ray IMPRESSION: No active disease. No acute/significant interval changes. Dictator: Bryan Butler MD 04/03/2017 12:04 On reevaluation, patient no longer has any wheezing. Continues with no retractions. No rales or rhonchi. She states she feels much better. She is able to walk around the ED without any shortness of breathe. CXR reviewed with no pneumonia. She continue to be afebrile. BNP stable from last visit. 04/03/2017 14:40 On reevaluation, patient continues to be improving. Lungs clear. No wheezing, rhonchi or rales. No retractions. She denies any chest pain or sob. She is able to walk without shortness of breathe. Clinically COPD exacerbation. Patient had only one day of steroids since last visits and has remained stable and not worsened. She will take the next dose She would rather go home then be admitted. She states she feels better and is not having any trouble with sob at this time or while walking. She is also noted to have an elevated INR. She is on coumadin and currently prednisone. She denies any active bleeding. She was advised to stop taking her coumadin for 2 days and then have it repeated by her PMD. She was also advised to return to the ED if symptoms worsen or any other concern. She was advised to make sure she follows up with her PMD in 1-2 days. - Lab Interpretations Microbiology Results: Microbiology Results 04/03/17 11:00 Blood-Venous Blood Culture - Preliminary NO GROWTH AFTER 24 HOURS 04/03/17 10:50 Blood-Venous Blood Culture - Preliminary NO GROWTH AFTER 24 HOURS Lab Results: 04/03/17 10:50 04/03/17 10:50 Lab Results 04/03/17 11:00: Influenza Typ A,B (EIA) Negative for flu a/b 04/03/17 10:52: Urine Color Straw, Urine Appearance Clear, Urine pH 6.5, Ur Specific [place] <= 1.005, Urine Protein Negative, Urine Glucose (UA) Negative, Urine Ketones Negative, Urine Blood Trace-intact H, Urine Nitrate Negative, Urine Bilirubin Negative, Urine Urobilinogen 0.2, Ur Leukocyte Esterase Negative , Urine RBC Negative, Urine WBC Negative 04/03/17 10:50: Sodium 133, Chloride 93 L, Potassium 3.8, Carbon Dioxide 30, Anion Gap 14, BUN 6 L, Creatinine 0.5 L, Est GFR ( Amer) > 60, Est GFR ( Non-Af Amer) > 60, Random Glucose 89, Calcium 9.4, Lactate Dehydrogenase 547, Total Creatine Kinase 160, Troponin I < 0.01, NT-Pro-B Natriuret Pep 2720 H 04/03/17 10:50: pO2 88 H, VBG pH 7.41, VBG pCO2 55.0, VBG HCO3 34.9 H, VBG Total CO2 36.6 H, VBG O2 Sat (Calc) 99.0 H, VBG Base Excess 8.4 H, VBG Potassium 3.7, Sodium 132.0, Chloride 96.0 L, Glucose 87, Lactate 1.2, FiO2 21.0 , Venous Blood Potassium 3.7 04/03/17 10:50: PT 70.3 H, INR 5.90 H*, APTT 53.3 H 04/03/17 10:50: WBC 10.7 D, RBC 4.48, Hgb 13.3, Hct 39.2, MCV 87.5, MCH 29.7, MCHC 33.9, RDW 14.3, Plt Count 282, MPV 9.0, Gran % 74.1 H, Lymph % (Auto) 16.2 L, [place] % (Auto) 9.4 H, Eos % (Auto) 0.1 L, Baso % (Auto) 0.2, Gran # 7.95 H, Lymph # 1.7, [place] # 1.0 H, Eos # 0.0, Baso # 0.02 I have reviewed the lab results: Yes - RAD Interpretation Radiology Orders: 04/03/17 10:20 CHEST PORTABLE [RAD] Stat - Medication Orders Current Medication Orders: Discontinued Medications Acetaminophen (Tylenol 325mg Tab) 975 mg PO STAT STA Stop: 04/03/17 12:05 Last Admin: 04/03/17 12:20 Dose: 975 mg MAR Pain/Vitals Document 04/03/17 12:20 EQ (Rec: 04/03/17 12:20 EQ [id number]) Pain Reassessment Is This A Pain ReAssessment? No Sleep Is patient sleeping during reassessment? No Presence of Pain Presence of Pain Yes Pain Scale Used Pain Scale Used Numeric Albuterol/Ipratropium (Duoneb 3 Mg/0.5 Mg (3 Ml) Ud) 3 ml IH Q15M NORA Stop: 04/03/17 11:01 Last Admin: 04/03/17 11:28 Dose: 3 ml Alprazolam (Xanax) 0.5 mg PO STAT STA PRN Reason: Protocol Stop: 04/03/17 12:05 Last Admin: 04/03/17 12:20 Dose: 0.5 mg Furosemide (Lasix) 40 mg IVP STAT STA Stop: 04/03/17 10:20 Last Admin: 04/03/17 10:57 Dose: 40 mg MAR Blood Pressure Document 04/03/17 10:57 EQ (Rec: 04/03/17 10:57 EQ [id number]) Blood Pressure Blood Pressure (100/60-150/90) 138/72 IVP Administration Document 04/03/17 10:57 EQ (Rec: 04/03/17 10:57 EQ [id number]) Charges for Administration # of IVP Administrations 1 Methylprednisolone (Solu-Medrol) 125 mg IVP STAT STA Stop: 04/03/17 10:20 Last Admin: 04/03/17 10:57 Dose: 125 mg IVP Administration Document 04/03/17 10:57 EQ (Rec: 04/03/17 10:57 EQ [id number]) Charges for Administration # of IVP Administrations 1 - Scribe Statement The provider has reviewed the documentation as recorded by the Niraj Baker Provider Scribe Attestation: All medical record entries made by the Scribe were at my direction and personally dictated by me. I have reviewed the chart and agree that the record accurately reflects my personal performance of the history, physical exam, medical decision making, and the department course for this patient. I have also personally directed, reviewed, and agree with the discharge instructions and disposition. Disposition/Present on Arrival - Present on Arrival Any Indicators Present on Arrival: No History of DVT/PE: No History of Uncontrolled Diabetes: No Urinary Catheter: No History of Decub. Ulcer: No History Surgical Site Infection Following: None - Disposition Have Diagnosis and Disposition been Completed?: Yes Diagnosis: COPD (chronic obstructive pulmonary disease) Disposition: HOME/ ROUTINE Disposition Time: 14:30 Patient Plan: Discharge Condition: IMPROVED Discharge Instructions (ExitCare): COPD (Chronic Obstructive Pulmonary Disease ) (ED) Additional Instructions: Mr Arciniega, thank you for letting us take care of you today. Your provider was Dr. Moore. You were treated for COPD Exacerbation. The emergency medical care you received today was directed at your acute symptoms. If you were prescribed any medication, please fill it and take as directed. It may take several days for your symptoms to resolve. Return to the Emergency Department if your symptoms worsen, do not improve, or if you have any other problems. MAKE SURE TO HOLD COUMADIN FOR 2 DAYS AND REPEAT YOUR BLOOD WORK WITH YOUR PRIMARY DOCTOR. Please contact your doctor or call one of the physicians/clinics you have been referred to that are listed on the Patient Visit Information form that is included in your discharge packet. Bring any paperwork you were given at discharge with you along with any medications you are taking to your follow up visit. Our treatment cannot replace ongoing medical care by a primary care provider (PCP) outside of the emergency department. Thank you for allowing the [facility] team to be part of your care today. If you had an X-Ray or CT scan: A Radiologist will review the ED reading if any change in treatment is needed we will contact you. If you had a blood, urine, or wound culture: It will take several days for the results, if any change in treatment is needed we will contact you. If you had an STI test: It will take 48 hours for the results. Please call after 1 week if you have not heard back. Prescriptions: Albuterol HFA [Ventolin HFA 90 mcg/actuation (8 g)] 2 puff IH Q4 #1 puff guaiFENesin/Dextromethorphan [guaiFENesin-DM] 10 ml PO TID #1 udc predniSONE [predniSONE Tab] 40 mg PO DAILY #6 tab Referrals: Andrea Casas MD [Primary Care Provider] - Follow up with primary Forms: [email or web address] ([place])
[2017-04-03] MEDS: Albuterol-Ipratrop 3 mg / 0.5 (3 ml) UD IH SCH ×3 (10:38→11:28)
[2017-04-03 11:03] LABS: BASO # 0.02 K/mm3 (0.0-2.0); BASO % 0.2 % (0.0-3.0); EOS % 0.1 % (1.5-5.0); GRAN # 7.95 (1.4-6.5); GRAN % 74.1 % (50.0-68.0); HEMOGLOBIN 13.3 g/dL (12.0-16.0); LYMPH # 1.7 (1.2-3.4); LYMPH % 16.2 % (22.0-35.0); MEAN CELL VOLUME 87.5 fl (80.0-105.0); MEAN CORPUSCULAR HEMOGLOBIN 29.7 pg (25.0-35.0); MEAN CORPUSCULAR HGB CONC 33.9 g/dl (31.0-37.0); MONO % 9.4 % (1.0-6.0); RBC 4.48 10^6/uL (3.5-6.1); RED CELL DISTRIBUTION WIDTH 14.3 % (11.5-14.5); WHITE BLOOD COUNT 10.7 10^3/ul (4.5-11.0)
[2017-04-03 11:04] LABS: PH,URINE 6.5 (4.7-8.0); URINE BILIRUBIN NEGATIVE (NEGATIVE); URINE BLOOD TRACE-INTACT (NEGATIVE); URINE GLUCOSE (UA) NEGATIVE (NEGATIVE); URINE LEUKOCYTE ESTERASE NEGATIVE Leu/uL (NEGATIVE); URINE NITRATE NEGATIVE (NEGATIVE); URINE PROTEIN NEGATIVE mg/dL (<30 mg/dL); URINE UROBILINOGEN 0.2 E.U./dL (<1 E.U./dL)
[2017-04-03 11:05] LABS: URINE APPEARANCE CLEAR (CLEAR); URINE COLOR STRAW (YELLOW)
[2017-04-03 11:09] LABS: URINE RBC NEGATIVE /hpf (0-2); URINE WBC NEGATIVE /hpf (0-6)
[2017-04-03 11:09] LABS: VENOUS BLOOD GAS BASE EXCESS 8.4 mmol/L (0.0-2.0); VENOUS BLOOD GAS PO2 88 mm/Hg (30-55); VENOUS BLOOD PH 7.41 (7.32-7.43)
[2017-04-03 11:16] LABS: PARTIAL THROMBOPLASTIN TIME 53.3 Seconds (25.1-36.5); PROTHROMBIN TIME 70.3 SECONDS (9.4-12.5)
[2017-04-03 11:26] LABS: INR 5.9 (0.93-1.08)
--- NOTE | 2017-04-03 11:56 | RAD ---
HISTORY: Cough, pneumonia suspected. Portable study 10:28. COMPARISON: 04/01/2017. FINDINGS: LUNGS: No active pulmonary disease. PLEURA: No significant pleural effusion identified, no pneumothorax apparent. CARDIOVASCULAR: Normal. OSSEOUS STRUCTURES: No significant abnormalities. VISUALIZED UPPER ABDOMEN: Normal. OTHER FINDINGS: None. IMPRESSION: No active disease. No active disease. No acute/significant interval changes. Concordant results with the preliminary interpretation rendered by the emergency department physician procedure.
[2017-04-03 13:22] LABS: BLOOD UREA NITROGEN 6 mg/dL (7-21); CALCIUM 9.4 mg/dL (8.4-10.5); GFR AFRICAN-AMERICAN > 60; GFR NON-AFRICAN AMERICAN > 60
[2017-04-03 13:35] LABS: TROPONIN I < 0.01 ng/mL
[2017-04-03 13:43] LABS: B-TYPE NATRIURETIC PEPTIDE 2720 pg/mL (0-450)
[2017-04-03 14:46] VITALS: BP 132/70; PULSE 68; O2SAT 97
--- NOTE | 2017-04-03 22:25 | CARD ---
APPROVED REPORT EKG Measurement Heart [id number] <Conclusion> Atrial fibrillation Nonspecific T wave abnormality Abnormal ECG
== END 2017-04-03 14:45 | disposition home or self-care (01) ==
LOC: ED 09:50
DX: J44.1 Chronic obstructive pulmonary disease with (acute) exacerbation (principal); I48.91 Unspecified atrial fibrillation; I10 Essential (primary) hypertension; I50.9 Heart failure, unspecified; Z79.01 Long term (current) use of anticoagulants; F17.210 Nicotine dependence, cigarettes, uncomplicated
CPT/HCPCS: 71045; 80048; 81001; 82550; 82803; 83615; 83880; 84484; 85025; 85610; 85730; 87040; 87804; 93005; 96374; 96375; 99285; J1940; J2930

== ENCOUNTER 2017-05-30 02:30 | Observation (INO) | payer MEDICARE, OTHER ==
--- NOTE | 2017-05-30 03:16 | ED PDOC ---
Arrival/HPI - General Chief Complaint: Chest Pain Time Seen by Provider: 05/30/17 03:05 Historian: Patient - History of Present Illness Narrative History of Present Illness (Text): 05/30/17 03:11 Alecia Arciniega is a 71 year old female, whose past medical history includes COPD, CHF, and atrial fibrillation, who presents to the Emergency department brought in by EMS complaining of chest pain. Patient states she has been experiencing right-sided chest pain radiating to her right shoulder/back since 22:00 yesterday. Patient reports associated shortness of breath and diffuse body aches. Patient denies any fever, chills, nausea, vomiting, diarrhea, urinary symptoms, back pain, neck pain, headache, dizziness, or any other complaints. Symptom Onset: Gradual Symptom Course: Unchanged Activities at Onset: Light Context: Home Past Medical History - Provider Review Nursing Documentation Reviewed: Yes - Infectious Disease Hx of Infectious Diseases: None - Cardiac Hx Cardiac Disorders: Yes Hx Atrial Fibrillation: Yes Hx Congestive Heart Failure: Yes Hx Hypertension: Yes - Pulmonary Hx Respiratory Disorders: Yes Hx Chronic Obstructive Pulmonary Disease (COPD): Yes - Neurological Hx Neurological Disorder: Yes Hx Dizziness: Yes (and lightheaded since june 2015) Other/Comment: headaches that radiate to back of neck on and off x 15 yrs, "charley horses" to feet ankles legs and c/o hands "lock up" since june 2015 - HEENT Hx HEENT Disorder: No - Renal Hx Renal Disorder: No - Endocrine/Metabolic Hx Endocrine Disorders: No - Hematological/Oncological Hx Blood Disorders: No - Integumentary Hx Dermatological Disorder: No - Musculoskeletal/Rheumatological Hx Musculoskeletal Disorders: No Hx Falls: No - Gastrointestinal Hx Gastrointestinal Disorders: Yes Hx Gastroesophageal Reflux: Yes - Genitourinary/Gynecological Hx Genitourinary Disorders: No - Psychiatric Hx Psychophysiologic Disorder: Yes Hx Anxiety: Yes Hx Depression: Yes Hx Emotional Abuse: No Hx Physical Abuse: No Hx Substance Use: No - Surgical History Hx Cardiac Catheterization: Yes Other/Comment: robotic left lower wedge resection and lymphaderectomy 06/2015, polypectomy - Anesthesia Hx Anesthesia: Yes Hx Anesthesia Reactions: No Hx Malignant Hyperthermia: No - Suicidal Assessment Feels Threatened In Home Enviroment: No Family/Social History - Physician Review Nursing Documentation Reviewed: Yes Family/Social History: Unknown Family HX Smoking Status: Light Smoker < 10 Cigarettes Daily Hx Alcohol Use: No Hx Substance Use: No Allergies/Home Meds Allergies/Adverse Reactions: Allergies azithromycin [From Zithromax] Adverse Reaction (Intermediate, Verified 05/30/17 03:07) RASH "JUST DOES NOT WORK" Home Medications: Home Meds Medication Instructions Recorded Confirmed Sertraline [Zoloft] 50 mg PO DAILY 04/01/17 04/03/17 Review of Systems - Physician Review All systems were reviewed & negative as marked: Yes - Review of Systems Constitutional: Normal. absent: Fevers Eyes: Normal ENT: Normal Respiratory: SOB. absent: Cough Cardiovascular: Chest Pain Gastrointestinal: Normal. absent: Abdominal Pain, Diarrhea, Nausea, Vomiting Genitourinary Female: Normal. absent: Dysuria, Frequency, Hematuria, Urine Output Changes Musculoskeletal: Myalgias. absent: Back Pain, Neck Pain Skin: Normal. absent: Rash Neurological: Normal. absent: Headache, Dizziness Endocrine: Normal Hemo/Lymphatic: Normal Psychiatric: Normal Physical Exam Vital Signs Reviewed: Yes Vital Signs Temp Pulse Resp BP Pulse Ox 05/30/17 02:59 97.6 F 89 34 H 165/92 H 100 Temperature: Afebrile Blood Pressure: Hypertensive Pulse: Regular Respiratory Rate: Normal Appearance: Positive for: Well-Appearing, Non-Toxic, Comfortable Pain Distress: None Mental Status: Positive for: Alert and Oriented X 3 - Systems Exam Head: Present: Atraumatic, Normocephalic Pupils: Present: PERRL Extroacular Muscles: Present: EOMI Conjunctiva: Present: Normal Mouth: Present: Moist Mucous Membranes Neck: Present: Normal Range of Motion Respiratory/Chest: Present: Decreased Breath Sounds (Decreased breath sounds bilaterally). No: Respiratory Distress, Accessory Muscle Use Cardiovascular: Present: Regular Rate and Rhythm, Normal S1, S2. No: Murmurs Abdomen: Present: Normal Bowel Sounds. No: Tenderness, Distention, Peritoneal Signs Back: Present: Normal Inspection Upper Extremity: Present: Normal Inspection. No: Cyanosis, Edema Lower Extremity: Present: Normal Inspection. No: Edema Neurological: Present: GCS=15, CN II-XII Intact, Speech Normal Skin: Present: Warm, Dry, Normal Color. No: Rashes Psychiatric: Present: Alert, Oriented x 3, Normal Insight, Normal Concentration Medical Decision Making ED Course and Treatment: 05/30/17 03:11 Impression: 71 year old female complaining of right-sided chest pain, shortness of breath, and body aches. Plan: -- EKG -- CXR -- Labs, cardiac enzymes, BNP -- Reassess and disposition Prior Visits: Notes and results from previous visits were reviewed. On 04/03/2017, pt was seen in the Emergency department for shortness of breath, back pain, and cough. Pt was d/c home. Progress Notes: Reviewed EKG, a fib at 90 bpm[address] Non-specific ST/T wave changes. 05/30/17 04:11 Chest X-ray reviewed, slightly increased interstitial markings. 05/30/17 04:29 Case discussed with medical driver loans consultant, who is aware and agrees with plan. 05/30/17 04:[address] John, who is aware and agrees with plan. Accepts pt in to hospitalist service. Pt will go to Telemetry for chest pain and COPD. - Lab Interpretations Lab Results: 05/30/17 03:19 05/30/17 03:19 Lab Results 05/30/17 03:19: WBC 17.9 H D, RBC 4.73, Hgb 14.2, Hct 42.4, MCV 89.6, MCH 30.0, MCHC 33.5, RDW 14.7 H, Plt Count 247, MPV 9.5 05/30/17 03:19: Sodium 131 L, Potassium 3.9, Chloride 90 L, Carbon Dioxide 32, Anion Gap 13, BUN 8, Creatinine 0.6 L, Est GFR ( Amer) > 60, Est GFR (Non -Af Amer) > 60, Random Glucose 127 H, Calcium 9.6, Total Bilirubin 0.6, AST 35, ALT 33, Alkaline Phosphatase 60, Lactate Dehydrogenase 537, Total Creatine Kinase 122, Troponin I < 0.01, NT-Pro-B Natriuret Pep 1160 H, Total Protein 6.6 , Albumin 4.1, Globulin 2.6, Albumin/Globulin Ratio 1.6 05/30/17 03:19: PT 23.8 H, INR 2.06 H, APTT 50.0 H I have reviewed the lab results: Yes - RAD Interpretation Radiology Orders: 05/30/17 03:22 CHEST PORTABLE [RAD] Stat Wordpress Developer: ED Physician - EKG Interpretation Interpreted by ED Physician: Yes Type: 12 lead EKG - Medication Orders Current Medication Orders: Levofloxacin/Dextrose (Levaquin 750mg) 750 mg in 150 mls @ 100 mls/hr IV STAT STA PRN Reason: Protocol Stop: 05/30/17 06:06 Discontinued Medications Morphine Sulfate (Morphine) 2 mg IVP STAT STA Stop: 05/30/17 04:19 - Scribe Statement The provider has reviewed the documentation as recorded by the Rickiblukas Lion Provider Scribe Attestation: All medical record entries made by the Scribe were at my direction and personally dictated by me. I have reviewed the chart and agree that the record accurately reflects my personal performance of the history, physical exam, medical decision making, and the department course for this patient. I have also personally directed, reviewed, and agree with the discharge instructions and disposition. Disposition/Present on Arrival - Present on Arrival Any Indicators Present on Arrival: No History of DVT/PE: No History of Uncontrolled Diabetes: No Urinary Catheter: No History of Decub. Ulcer: No History Surgical Site Infection Following: None - Disposition Have Diagnosis and Disposition been Completed?: Yes Diagnosis: Chest pain, COPD exacerbation Disposition: HOSPITALIZED Disposition Time: 04:56 Patient Plan: Observation Condition: STABLE Discharge Instructions (ExitCare): Chest Pain (ED) Forms: [facility] ([place]anian)
[2017-05-30 03:59] LABS: HEMOGLOBIN 14.2 g/dL (12.0-16.0); MEAN CELL VOLUME 89.6 fl (80.0-105.0); MEAN CORPUSCULAR HGB CONC 33.5 g/dl (31.0-37.0); MEAN PLATELET VOLUME 9.5 fl (7.0-11.0); RBC 4.73 10^6/uL (3.5-6.1); RED CELL DISTRIBUTION WIDTH 14.7 % (11.5-14.5); WHITE BLOOD COUNT 17.9 10^3/ul (4.5-11.0)
[2017-05-30 04:15] LABS: INR 2.06 (0.93-1.08); PROTHROMBIN TIME 23.8 SECONDS (9.4-12.5)
[2017-05-30] MEDS ORDERED: Morphine 2 mg/ml ISec IVP STA (04:18)
[2017-05-30 04:28] LABS: ALB/GLOB RATIO 1.6 (1.1-1.8); ALBUMIN 4.1 g/dL (3.0-4.8); CALCIUM 9.6 mg/dL (8.4-10.5); GFR AFRICAN-AMERICAN > 60; GFR NON-AFRICAN AMERICAN > 60
[2017-05-30 04:34] LABS: ALT/SGPT 33 U/L (7-56); AST/SGOT 35 U/L (14-36); BLOOD UREA NITROGEN 8 mg/dL (7-21)
[2017-05-30] MEDS ORDERED: levoFLOXacin 750 mg in D5W 750 MG/150 ML BAG IV STA (04:37)
[2017-05-30 04:39] LABS: B-TYPE NATRIURETIC PEPTIDE 1160 pg/mL (0-450); TROPONIN I < 0.01 ng/mL
[2017-05-30] MEDS ORDERED: Albuterol-Ipratrop 3 mg / 0.5 (3 ml) UD IH STA (04:57)
--- NOTE | 2017-05-30 05:23 | CP.PCM.HP ---
History of Present Illness - History of Present Illness History of Present Illness: Krista Finley, PGY1, H&P for Dr John: CC: right sided rib/shoulder pain 71 year old female, PMHx of a.fibrillation on coumadin, CHF with EF 45% (05/2016 ), COPD, nonocclusive CAD, anxiety, presents to ED for right sided lower rib pain that started tonight. Pt states that she was sleeping in bed, and the pain woke her up. She describes it achy, radiating to right shoulder and left shoulder. She states that she often has this kind of pain with damp/snowy weather. Pt states that she might have "slept wrong." Denies trauma to the area , fever, chills, nausea, vomiting, abdominal pain, diarrhea, constipation, orthopnea, leg swelling, urinary symptoms. Reports chronic productive (yellow sputum) cough secondary to smoking, mildly increased for past few days. In ED, pt afebrile, vitals stable. leukocytosis 17.9, Na 131, trop neg x1. BNP 1160 (prev [id number]), CXR shows increased interstitial markings, EKG, a fib at 90 bpm. Non-specific ST/T wave changes. 12 point ROS obtained and negative, except as per HPI. PMD [place] PMHx: a.fibrillation on coumadin, COPD, asthma, CAD, anxiety Psxhx: L lung mass resection in 2016 allergies: azithromycin rash - does not work family hx: brother has unknown abdominal CA, and mother had cervical CA Social hx: denies ETOH and illicit drugs, 50+ PPD history. Lives with granddaughter/daughter Home Medications: See MAR Present on Admission - Present on Admission Any Indicators Present on Admission: No History of DVT/PE: No History of Uncontrolled Diabetes: No Urinary Catheter: No Decubitus Ulcer Present: No Review of Systems - Review of Systems All systems: reviewed and no additional remarkable complaints except Review of Systems: as per HPI Past Patient History - Infectious Disease Hx of Infectious Diseases: None - Past Medical History & Family History Past Medical History?: Yes - Past Social History Smoking Status: Light Smoker < 10 Cigarettes Daily - CARDIAC Hx Cardiac Disorders: Yes Hx Atrial Fibrillation: Yes Hx Congestive Heart Failure: Yes Hx Hypertension: Yes - PULMONARY Hx Respiratory Disorders: Yes Hx Chronic Obstructive Pulmonary Disease (COPD): Yes - NEUROLOGICAL Hx Neurological Disorder: Yes Hx Dizziness: Yes (and lightheaded since june 2015) Other/Comment: headaches that radiate to back of neck on and off x 15 yrs, "charley horses" to feet ankles legs and c/o hands "lock up" since june 2015 - HEENT Hx HEENT Problems: No - RENAL Hx Chronic Kidney Disease: No - ENDOCRINE/METABOLIC Hx Endocrine Disorders: No - HEMATOLOGICAL/ONCOLOGICAL Hx Blood Disorders: No - INTEGUMENTARY Hx Dermatological Problems: No - MUSCULOSKELETAL/RHEUMATOLOGICAL Hx Musculoskeletal Disorders: No Hx Falls: No - GASTROINTESTINAL Hx Gastrointestinal Disorders: Yes Hx Gastroesophageal Reflux: Yes - GENITOURINARY/GYNECOLOGICAL Hx Genitourinary Disorders: No - PSYCHIATRIC Hx Psychophysiologic Disorder: Yes Hx Anxiety: Yes Hx Depression: Yes Hx Emotional Abuse: No Hx Physical Abuse: No Hx Substance Use: No - SURGICAL HISTORY Hx Cardiac Catheterization: Yes Other/Comment: robotic left lower wedge resection and lymphaderectomy 06/2015, polypectomy - ANESTHESIA Hx Anesthesia: Yes Hx Anesthesia Reactions: No Hx Malignant Hyperthermia: No Meds Allergies/Adverse Reactions: Allergies Allergy/AdvReac Type Severity Reaction Status Date / Time azithromycin [From Zithromax] AdvReac Intermediate RASH Verified 05/30/17 03:07 Physical Exam - Constitutional Appears: Non-toxic, No Acute Distress, Older Than Stated Age - Head Exam Head Exam: ATRAUMATIC, NORMOCEPHALIC - Eye Exam Eye Exam: EOMI, PERRL. absent: Conjunctival injection, Nystagmus, Scleral icterus Pupil Exam: NORMAL ACCOMODATION, PERRL. absent: Fixed, Irregular, Unequal - ENT Exam ENT Exam: Mucous Membranes Moist - Neck Exam Neck exam: Positive for: Full Rom - Respiratory Exam Respiratory Exam: Wheezes (mild expiratory wheezing in upper lobes), NORMAL BREATHING PATTERN. absent: Accessory Muscle Use, Chest Wall Tenderness, Decreased Breath Sounds, Rales, Rhonchi, Stridor - Cardiovascular Exam Cardiovascular Exam: RRR, +S1, +S2. absent: Systolic Murmur - GI/Abdominal Exam GI & Abdominal Exam: Normal Bowel Sounds, Soft. absent: Distended, Firm, Guarding, Mass, Rebound, Rigid, Tenderness - Extremities Exam Extremities exam: Positive for: normal inspection. Negative for: calf tenderness, pedal edema - Back Exam Back exam: NORMAL INSPECTION - Neurological Exam Neurological exam: Alert, Oriented x3 - Psychiatric Exam Psychiatric exam: Anxious - Skin Skin Exam: Dry, Normal Color, Warm Results - Vital Signs Recent Vital Signs: Last Vital Signs Temp 97.6 F 05/30/17 02:59 Pulse 89 05/30/17 02:59 Resp 34 H 05/30/17 02:59 BP 165/92 H 05/30/17 02:59 Pulse Ox 100 05/30/17 02:59 - Labs Result Diagrams: 05/30/17 03:19 05/30/17 03:19 Assessment & Plan - Assessment and Plan (Free Text) Assessment: 70 yo F w/ PMHx of a.fibrillation on coumadin, CHF with EF 45% (05/2016), COPD, nonocclusive CAD, anxiety, presents with right sided rib/shoulder pain with radiation to left side, mild COPD exacerbation: Chest pain/shoulder pain: r/o ACS - Trop neg x1, EKG, a fib at 90 bpm. Non-specific ST/T wave changes. - serial trops with EKG in AM - Cardio consult. F/u recs - lipid panel, Hgb A1c - Naproxen. C/w home Tramadol COPD exacerbation: - BNP 1160. CXR: mildly increased interstitial markings. Mild expiratory wheezing on physical exam - sOLUMEDROL 20 mg IV BID, duoneb wil - C/w home advair - procal and Bcx pending - C/w home Lasix. Given Lasix 20 mg IVx1 Hx of A. fibrillation: - continue home coumadin, metoprolol, digoxin - INR at 2.06 upon admission - Maintain therapeutic levels. Hx of CAD/CHF: - Echo 06/2016 shows EF 45%. LVH. - continued home medications of metoprolol, digoxin, lasix, lisinopril and diltiazem Hx of anxiety: - continued home xanax PO PPx measures: famotidine, coumadin Discussed with Dr John. - Date & Time Date: 05/30/17 Time: 06:06
[2017-05-30] MEDS ORDERED: Albuterol 0.083% Inhal Sol (2.5 mg/3 mL) UD IH PRN (05:46)
[2017-05-30 06:19] LABS: URINE BILIRUBIN NEGATIVE (NEGATIVE); URINE BLOOD NEGATIVE (NEGATIVE); URINE GLUCOSE (UA) NEGATIVE (NEGATIVE); URINE LEUKOCYTE ESTERASE SMALL Leu/uL (NEGATIVE); URINE PROTEIN NEGATIVE mg/dL (<30 mg/dL)
[2017-05-30 06:23] LABS: URINE APPEARANCE CLEAR (CLEAR); URINE COLOR YELLOW (YELLOW)
[2017-05-30 06:37] LABS: URINE BACTERIA SMALL (NEG); URINE RBC 0 - 2 /hpf (0-2)
--- NOTE | 2017-05-30 07:42 | CT ---
EXAM: CT Head Without Intravenous Contrast CLINICAL HISTORY: 71 years old, female; Injury or trauma; Fall; Additional info: Fall, on coumadin TECHNIQUE: Axial computed tomography images of the head/brain without intravenous contrast. All CT scans at this facility use one or more dose reduction techniques, viz.: automated exposure control; ma/kV adjustment per patient size (including targeted exams where dose is matched to indication; i.e. head); or iterative reconstruction technique. Coronal and sagittal reformatted images were created and reviewed. COMPARISON: No relevant prior studies available. FINDINGS: Brain: There is mild ill-defined patchy hypodensity within the bilateral cerebral periventricular white matter, consistent with chronic microvascular ischemic changes. There is mild diffuse cerebral atrophy present, consistent with this patient's age. The cortical humphries / white matter interfaces are preserved throughout the brain. Examination of the posterior fossa demonstrates no significant abnormality. No hemorrhage. Ventricles: The ventricular system demonstrates mild diffuse compensatory enlargement. Bones/joints: Unremarkable. No acute fracture. Soft tissues: Unremarkable. Vasculature: There is no hyperdense MCA sign. Sinuses: Left maxillary sinusitis with air-fluid level. Mastoid air cells: Unremarkable as visualized. No mastoid effusion. IMPRESSION: No acute infarction, masses or hemorrhage is seen. No acute intracranial abnormality is identified. Diffuse age-related cerebral atrophy and mild chronic microvascular white matter ischemic changes, without evidence of an acute intracranial abnormality.
[2017-05-30] MEDS ORDERED: Albuterol-Ipratrop 3 mg / 0.5 (3 ml) UD IH SCH (08:00)
[2017-05-30 08:32] LABS: BASO # 0.01 K/mm3 (0.0-2.0); BASO % 0.1 % (0.0-3.0); GRAN # 18.23 (1.4-6.5); GRAN % 93.2 % (50.0-68.0); HEMOGLOBIN 14.9 g/dL (12.0-16.0); LYMPH # 0.6 (1.2-3.4); LYMPH % 3.2 % (22.0-35.0); MEAN CELL VOLUME 89.5 fl (80.0-105.0); MEAN CORPUSCULAR HGB CONC 33.5 g/dl (31.0-37.0); MEAN PLATELET VOLUME 9.1 fl (7.0-11.0); MONO # 0.7 (0.1-0.6); MONO % 3.5 % (1.0-6.0); PLATELET COUNT 197 10^3/uL (120.0-450.0); RBC 4.97 10^6/uL (3.5-6.1); RED CELL DISTRIBUTION WIDTH 14.7 % (11.5-14.5); WHITE BLOOD COUNT 19.6 10^3/ul (4.5-11.0)
[2017-05-30 08:47] LABS: ALB/GLOB RATIO 1.7 (1.1-1.8); ALBUMIN 4.2 g/dL (3.0-4.8); ALT/SGPT 36 U/L (7-56); AST/SGOT 31 U/L (14-36); BLOOD UREA NITROGEN 8 mg/dL (7-21); CALCIUM 9.9 mg/dL (8.4-10.5); GFR AFRICAN-AMERICAN > 60; GFR NON-AFRICAN AMERICAN > 60; HDL CHOLESTEROL 91 mg/dL (29-60)
--- NOTE | 2017-05-30 08:53 | RAD ---
HISTORY: SOB COMPARISON: 04/03/2017 FINDINGS: LUNGS: No active pulmonary disease. PLEURA: No significant pleural effusion identified, no pneumothorax apparent. CARDIOVASCULAR: No radiographic findings to suggest acute or significant cardiovascular disease. OSSEOUS STRUCTURES: No significant abnormalities. VISUALIZED UPPER ABDOMEN: Normal. OTHER FINDINGS: None. IMPRESSION: No active disease. No significant interval change compared to the prior examination(s).
[2017-05-30 08:58] LABS: LDL CHOLESTEROL 40 mg/dL (0-129)
--- NOTE | 2017-05-30 09:07 | RAD ---
PROCEDURE: Pelvis bilateral hips HISTORY: fall COMPARISON: None TECHNIQUE: Standard protocol for this study/examination. FINDINGS: There are no osseous abnormalities to suggest fracture. The pelvic ring is intact. Preserved femoral-acetabular relationship. Negative study for protrusio, subluxation or dislocation. Degenerative changes: Moderate and symmetrical. IMPRESSION: No acute findings related to/accounting for the clinical presentation.
[2017-05-30 09:28] LABS: BAND 2 % (0-2); LYMPHOCYTE 5 % (22.0-35.0); MONOCYTE 3 % (1.0-6.0); NEUTROPHIL 90 % (50.0-70.0)
[2017-05-30] MEDS ORDERED: Fluticasone-Salmeterol 250-50mcg Diskus IH SCH (10:00)
[2017-05-30] MEDS: Budesonide 0.5 mg/2 ml Inhal Susp UD IH SCH ×2 (10:17→20:58)
[2017-05-30] MEDS: Arformoterol 15 mcg/2 ml Inh Sol IH SCH ×2 (10:17→20:58)
[2017-05-30] MEDS: MethylPREDNISolone 40 mg Vial IVP SCH ×2 (10:35→22:07)
[2017-05-30] MEDS: guaiFENesin DM 200 mg-20 mg/10 ml UD PO SCH ×3 (10:36→18:06)
[2017-05-30] MEDS: diltiaZEM 120 mg/24 Hours CD Cap PO SCH (10:36)
[2017-05-30] MEDS: Pantoprazole 40 mg EC Tab PO SCH (10:37)
[2017-05-30] MEDS: Naproxen 550 mg Tab PO SCH ×2 (10:37→18:06)
[2017-05-30 10:38] LABS: ARTERIAL BLOOD GAS HCO3 29.2 mmol/L (21-28); ARTERIAL BLOOD GAS O2 SAT 94.4 % (95-98); ARTERIAL BLOOD GAS PCO2 41 mm/Hg (35-45); ARTERIAL BLOOD GAS PH 7.46 (7.35-7.45); ARTERIAL BLOOD GAS TCO2 30.5 mmol.L (22-28)
[2017-05-30] MEDS: Albuterol-Ipratrop 3 mg / 0.5 (3 ml) UD IH SCH ×3 (10:43→20:58)
[2017-05-30] MEDS ORDERED: Magnesium Sulfate 2 GM in Sodium Chloride 0.9% 100 ML IVPB ONE (11:08)
--- NOTE | 2017-05-30 12:06 | RAD ---
PROCEDURE: Bilateral Knee Radiographs. HISTORY: fall COMPARISON: None. FINDINGS: BONES: Right Knee: Normal. No fracture. Left Knee: Normal. No fracture. JOINTS: Right Knee: Normal. No osteoarthritis. Left knee: Normal. No osteoarthritis. SOFT TISSUES: Right Knee: Normal. Left Knee: Normal. JOINT EFFUSION: Right Knee: None. Left Knee: None. OTHER FINDINGS: None. IMPRESSION: Normal radiographs of the knees.
[2017-05-30 13:52] VITALS: BMI 27.4
[2017-05-30] MEDS: Digoxin 250 mcg (0.25 mg) Tab PO SCH (15:23)
--- NOTE | 2017-05-30 17:09 | CARD ---
APPROVED REPORT EKG Measurement Heart [id number] <Conclusion> Atrial fibrillation with rapid ventricular response with premature ventricular or aberrantly conducted complexes ST & T wave abnormality, consider inferior ischemia or digitalis effect ST & T wave abnormality, consider anterolateral ischemia or digitalis effect Abnormal ECG
--- NOTE | 2017-05-30 17:13 | CARD ---
APPROVED REPORT EKG Measurement Heart [id number] <Conclusion> Atrial fibrillation with rapid ventricular response ST & T wave abnormality, consider inferior ischemia or digitalis effect ST & T wave abnormality, consider anterior ischemia or digitalis effect Abnormal ECG
--- NOTE | 2017-05-30 17:13 | CARD ---
APPROVED REPORT EKG Measurement Heart [id number] <Conclusion> Atrial fibrillation Nonspecific ST and T wave abnormality, probably digitalis effect Abnormal ECG
--- NOTE | 2017-05-30 17:29 | CARD ---
APPROVED REPORT EXAM: Two-dimensional and M-mode echocardiogram with Doppler and color Doppler. INDICATION Atrial Fibrillation Chest Pain 2D DIMENSIONS Left Atrium (2D)3.9 (1.6-4.0cm)IVSd1.4 (0.7-1.1cm) LVDd3.5 (3.9-5.9cm)PWd1.5 (0.7-1.1cm) LVDs2.4 (2.5-4.0cm)FS (%) 30.7 % LVEF (%)59.3 (>50%) M-Mode DIMENSIONS Aortic Root2.70 (2.2-3.7cm)Aortic Cusp Exc.1.40 (1.5-2.0cm) Aortic Valve AoV Peak Jzmyoyhu117.0cm/Nikolas Peak GR.17mmHg Mitral Valve E/A ratio0.0 TDI E/Lateral E'0.0E/Medial E'0.0 Tricuspid Valve TR Peak [id number] [id number] Peak Gr.27mmHg [id number] LEFT VENTRICLE The left ventricle is normal size. There is mild to moderate concentric left ventricular hypertrophy. The left ventricular function is normal.EF-55-60% There is normal LV segmental wall motion. AFib No left ventricle thrombus noted on this study. There is no ventricular septal defect visualized. There is no left ventricular aneurysm. There is no mass noted in the left ventricle. RIGHT VENTRICLE The right ventricle is mildly dilated. There is normal right ventricular wall thickness. The right ventricular systolic function is normal. ATRIA The left atrium is mildly dilated. The right atrium is mildly dilated. The interatrial septum is intact with no evidence for an atrial septal defect. AORTIC VALVE The aortic valve is calcified and displays decreased opening. No aortic regurgitation is present. There is mild to moderate valvular aortic stenosis. There is no aortic valvular vegetation. MITRAL VALVE The mitral valve is thickened but opens well. Mitral annular calcification is mild to moderate. Mitral regurgitation is trace to mild. There is no mitral valve stenosis. There is no evidence of mitral valve prolapse. TRICUSPID VALVE The tricuspid valve leaflets are thickened , but open well. There is mild to moderate tricuspid regurgitation.RVSP-37 mmof Hg There is no tricuspid valve stenosis. There is no tricuspid valve prolapse or vegetation. PULMONIC VALVE The pulmonary valve is normal in structure. There is no pulmonic valvular regurgitation. There is no pulmonic valvular stenosis. GREAT VESSELS The aortic root is normal in size. The ascending aorta is normal in size. The pulmonary artery is normal. The IVC is normal in size and collapses >50% with inspiration. PERICARDIAL EFFUSION There is no pleural effusion. There is no pericardial effusion. <Conclusion> The left ventricle is normal size. There is mild to moderate concentric left ventricular hypertrophy. The left ventricular function is normal.EF-55-60% There is mild to moderate valvular aortic stenosis. Mitral regurgitation is trace to mild. There is mild to moderate tricuspid regurgitation.RVSP-37 mmof Hg The IVC is normal in size and collapses >50% with inspiration. There is no pericardial effusion. No vegetation or thrombus noted.
--- NOTE | 2017-05-30 19:20 | CON ---
DATE: SERVICE: Cardiology. REASON FOR CONSULTATION: Cardiac evaluation; atrial fibrillation; COPD, admitted with exacerbation of COPD; feels very sick; back pain and chest pain. BRIEF CLINICAL HISTORY: This is a 71-year-old female with past medical history significant for atrial fibrillation, on Coumadin; history of nonobstructive coronary artery disease; came in with complaint of feels very sick; on further interrogation, patient has right-sided chest pain and back pain and shortness of breath; history of smoking, active, but states that he quit 50 years of smoking. PAST HISTORY: Significant for atrial fibrillation, on Coumadin; asthma; COPD; CAD; and anxiety disorder. PAST SURGICAL HISTORY: Significant for lung resection in 2014. ALLERGIES: ALLERGY TO AZITHROMYCIN, GETS RASH. CURRENT MEDICATIONS: Unobtainable now, but in the previous chart, looks patient was taking Pravachol 40 mg daily, Xanax 0.5 mg daily, Pepcid 20 mg daily, Lasix 40 mg daily, lisinopril 2.5 mg daily, metoprolol tartrate 25 mg daily, potassium 10 mEq daily, Cardizem 120 mg daily, albuterol two puff daily, warfarin 5 mg daily, dual nebulizer treatment. PREVIOUS CARDIAC WORKUP: As follows: Patient had a stress test dated 06/14/2016 that shows abnormal myocardial perfusion suspicious for ischemia, ejection fraction of 37%. Patient had an echocardiography on 06/01/2016 that showed no prolapse, ejection fraction of 35%, fhdk-ms-eluecsle aortic stenosis, valve area of 1.2 cm2, mild mitral regurgitation, mild tricuspid regurgitation that leads to the cardiac catheterization dated 06/29/2016 that shows nonobstructive coronary artery disease, limited only to very distal LAD, diffusely diseased, but no focal, flow-limiting stenosis noted. Moderately decreased ejection fraction, LV ejection fraction of 35 to 40%; EDP was a range of 20; nonischemic cardiomyopathy; history of chronic atrial fibrillation. No gradient across aortic valve noted on pullback. Though echo shows [id number]-[id number] aortic stenosis, but on cardiac catheterization, no gradient across aortic valve noted. At that time, recommendation was made to treat it very aggressively including digoxin, diuretics, LADARIUS inhibitors, Coreg, and Coumadin for atrial fibrillation and follow up assessment of LV function in 3 to 6 months. If remains below 35, consider AICD, recommend dated 06/29/2016. REVIEW OF THE SYSTEMS: As per HPI. PHYSICAL EXAMINATION: VITAL SIGNS: As follows: Temperature afebrile, heart rate 89, and blood pressure 132/86. HEENT: PERRLA. Extraocular muscles intact. NECK: Supple. No carotid bruit. No thyromegaly. CHEST: Clear to auscultation. HEART: S1 and S2 regular. ABDOMEN: Soft. EXTREMITIES: Clubbing and cyanosis negative. LABORATORY DATA: WBC 19.6, hemoglobin 14.9, hematocrit 44.5, and platelet count 197. Chemistry shows sodium 131, potassium 3.7, chloride 90, carbon dioxide 31, anion gap of 14, BUN 8, and creatinine 0.6. Troponin 0.01, negative. INR 2.06. IMPRESSION: Chronic atrial fibrillation; hypertension; hyperlipidemia; chronic obstructive pulmonary disease; non-ischemic cardiomyopathy, status post cardiac catheterization dated 06/29/2016, ejection fraction 35 to 40%; end-diastolic pressure was in the range of 20; nonobstructive coronary artery disease, limited only to distal left anterior descending coronary artery by single-photon emission computed tomography study; ejection fraction by stress 37%, by echo 35%, dated 06/01/2016; history of chronic obstructive pulmonary disease; history of atrial fibrillation. RECOMMENDATION: We will start digoxin, diuretic, LADARIUS inhibitor, Coreg; and continue Coumadin. We will follow repeat echo to assess LV function. We will follow with you. Thank you, Dr. Bruno, for providing us the opportunity in taking care of the patient, Alecia Arciniega. We will follow with you. Mak Mendez MD
[2017-05-31] MEDS: Albuterol-Ipratrop 3 mg / 0.5 (3 ml) UD IH SCH ×5 (01:19→15:23)
[2017-05-31 06:26] LABS: BASO # 0.01 K/mm3 (0.0-2.0); GRAN # 24.14 (1.4-6.5); HEMOGLOBIN 13.5 g/dL (12.0-16.0); LYMPH % 3.7 % (22.0-35.0); MEAN CELL VOLUME 88.1 fl (80.0-105.0); MEAN CORPUSCULAR HEMOGLOBIN 29.7 pg (25.0-35.0); MEAN CORPUSCULAR HGB CONC 33.8 g/dl (31.0-37.0); MEAN PLATELET VOLUME 9.2 fl (7.0-11.0); MONO # 0.6 (0.1-0.6); MONO % 2.3 % (1.0-6.0); RBC 4.54 10^6/uL (3.5-6.1); RED CELL DISTRIBUTION WIDTH 14.6 % (11.5-14.5)
[2017-05-31 06:35] LABS: WHITE BLOOD COUNT 25.7 10^3/ul (4.5-11.0)
[2017-05-31 07:06] LABS: ALB/GLOB RATIO 1.4 (1.1-1.8); ALBUMIN 3.4 g/dL (3.0-4.8); ALT/SGPT 22 U/L (7-56); AST/SGOT 23 U/L (14-36); BLOOD UREA NITROGEN 20 mg/dL (7-21); CALCIUM 9.8 mg/dL (8.4-10.5); GFR AFRICAN-AMERICAN > 60; GFR NON-AFRICAN AMERICAN > 60
[2017-05-31 07:07] LABS: HDL CHOLESTEROL 76 mg/dL (29-60); LDL CHOLESTEROL < 30 mg/dL (0-129)
[2017-05-31] MEDS: Arformoterol 15 mcg/2 ml Inh Sol IH SCH (07:21)
[2017-05-31] MEDS: Budesonide 0.5 mg/2 ml Inhal Susp UD IH SCH (07:21)
[2017-05-31 07:29] LABS: PROTHROMBIN TIME 35.3 SECONDS (9.4-12.5)
[2017-05-31] MEDS: MethylPREDNISolone 40 mg Vial IVP SCH (09:49)
[2017-05-31] MEDS: diltiaZEM 120 mg/24 Hours CD Cap PO SCH (09:49)
[2017-05-31] MEDS: Pantoprazole 40 mg EC Tab PO SCH (09:50)
[2017-05-31] MEDS: guaiFENesin DM 200 mg-20 mg/10 ml UD PO SCH ×3 (09:50→18:14)
[2017-05-31] MEDS ORDERED: levoFLOXacin 750 mg in D5W 750 MG/150 ML BAG IVPB SCH (10:00)
[2017-05-31] MEDS: Naproxen 550 mg Tab PO SCH (10:02)
--- NOTE | 2017-05-31 14:09 | PN ---
DATE: 05/31/2017 LOCATION: Patient in room 372, bed 2. REASON FOR CONSULTATION AND FOLLOWUP: Atrial fibrillation, COPD, admitted with exacerbation of COPD, back pain. SUBJECTIVE: Patient denies any chest pain. She said her breathing is better. Denies any palpitations. She still complains of some pain in the lower back and also some pain in the scapular region, both side off and on. Patient on atrial fibrillation, COPD, coronary artery disease, and anxiety disorder. PHYSICAL EXAMINATION: VITAL SIGNS: Blood pressure 135/68, respirations 20, pulse 77, temperature 97.6. HEENT: Head is normocephalic. Eyes: Pupils are normal. Conjunctivae normal. Nose and throat normal. NECK: JVP low. Carotids equal. THORAX: AP diameter normal. LUNGS: No significant rales. CARDIOVASCULAR: S1 and S2. ABDOMEN: Soft, nontender. No organomegaly. Bowel sounds normal. EXTREMITIES: No clubbing. No cyanosis. LABORATORY DATA: WBC 25.7, hemoglobin 13.5, hematocrit 40, and platelets 203. Sodium 130, potassium 4.3. BUN 20, creatinine 0.7. Phosphorus 4.1, magnesium 2.1, total protein 5.9, albumin is 3.4. Triglyceride 37, cholesterol 125, HDL 76, LDL below 30. TSH 0.41, free T4 of 0.97 which is normal. Patient had echo on 05/30/2017, which showed normal size LV, lmgm-yz-zuqordsw concentric left ventricular hypertrophy, left ventricular ejection fraction normal, 55% to 60%, cmws-zw-bkttozsn valvular aortic stenosis, mitral regurgitation trace to mild, risb-rr-nlaxvimn tricuspid regurgitation, RVSP 37 mmHg. Previous cardiac workup, patient had a stress test on 06/14/2016, that showed abnormal perfusion defect suspicious for ischemia with ejection fraction of 37%. Patient had an echocardiography on 06/01/2016, that showed ejection fraction 35%, qvqk-hq-fbztdegs aortic stenosis, valve area 1.2 cm2, mild mitral regurgitation, mild tricuspid regurgitation. So cardiac catheterization was done on 06/29/2016, that showed nonobstructive coronary artery disease limited only to very distal LAD which was diffusely diseased, but no focal flow-limiting stenosis as noted. Moderately decreased LV ejection fraction of 35% to 40%. EDP was in the range of 20. On cardiac catheterization, no gradient across the aortic valve was noted. Patient was advised medical treatment at that time including digoxin, diuretics, LADARIUS inhibitors, Coreg, and Coumadin for atrial fibrillation and suggested followup assessment of LV function in 3 to 6 months. If it was going to stay at 35 or below, patient will need AICD insertion. IMPRESSION: Chronic atrial fibrillation, hypertension, hyperlipidemia, chronic obstructive pulmonary disease, nonischemic cardiomyopathy status post cardiac catheterization as mentioned above. His coronary artery disease is limited only to distal left anterior descending coronary artery without any focal significant stenosis. On echo, left ventricular ejection fraction found to be 37%. Patient's repeat echocardiogram as mentioned above. Patient on spironolactone 25 daily, Cardizem CD 120 daily, carvedilol 3.125 b.i.d., morphine 5 mg daily, furosemide 40 p.o. daily, digoxin 0.25 daily, atorvastatin 10 daily, Protonix 40 daily, lisinopril 2.5 daily. We will follow. Mak Blake MD
[2017-05-31 15:25] LABS: CREATININE,RANDOM URINE 25 mg/dL
[2017-05-31] MEDS: Digoxin 250 mcg (0.25 mg) Tab PO SCH (15:34)
[2017-05-31 15:35] VITALS: PULSE 78
[2017-05-31 17:47] VITALS: BP 140/89; PULSE 82; RESP 18; TEMP 97.8; O2SAT 96
--- NOTE | 2017-05-31 19:09 | CP.PCM.DIS ---
<Nteo Allison - Last Filed: 05/31/17 19:06> Provider - Provider Date of Admission: 05/30/17 04:54 Attending physician: Mak Sparrow MD Primary care physician: Andrea Casas MD Consults: Cardio: Andrea Time Spent in preparation of Discharge (in minutes): 41 Hospital Course - Lab Results Lab Results: Micro Results 05/30/17 05:10 Blood Blood Culture - Preliminary NO GROWTH AFTER 24 HOURS Most Recent Lab Values WBC 25.7 10^3/ul (4.5-11.0) H* D 05/31/17 05:30 RBC 4.54 10^6/uL (3.5-6.1) 05/31/17 05:30 Hgb 13.5 g/dL (12.0-16.0) 05/31/17 05:30 Hct 40.0 % (36.0-48.0) 05/31/17 05:30 MCV 88.1 fl (80.0-105.0) 05/31/17 05:30 MCH 29.7 pg (25.0-35.0) 05/31/17 05:30 MCHC 33.8 g/dl (31.0-37.0) 05/31/17 05:30 RDW 14.6 % (11.5-14.5) H 05/31/17 05:30 Plt Count 203 10^3/uL (120.0-450.0) 05/31/17 05:30 MPV 9.2 fl (7.0-11.0) 05/31/17 05:30 Gran % 94.0 % (50.0-68.0) H 05/31/17 05:30 Lymph % (Auto) 3.7 % (22.0-35.0) L 05/31/17 05:30 [place] % (Auto) 2.3 % (1.0-6.0) 05/31/17 05:30 Eos % (Auto) 0.0 % (1.5-5.0) L 05/31/17 05:30 Baso % (Auto) 0.0 % (0.0-3.0) 05/31/17 05:30 Gran # 24.14 (1.4-6.5) H 05/31/17 05:30 Lymph # (Auto) 1.0 (1.2-3.4) L 05/31/17 05:30 [place] # (Auto) 0.6 (0.1-0.6) 05/31/17 05:30 Eos # (Auto) 0.0 (0.0-0.7) 05/31/17 05:30 Baso # (Auto) 0.01 K/mm3 (0.0-2.0) 05/31/17 05:30 Neutrophils % (Manual) 90 % (50.0-70.0) H 05/30/17 08:20 Band Neutrophils % 2 % (0-2) 05/30/17 08:20 Lymphocytes % (Manual) 5 % (22.0-35.0) L 05/30/17 08:20 Monocytes % (Manual) 3 % (1.0-6.0) 05/30/17 08:20 PT 35.3 SECONDS (9.4-12.5) H 05/31/17 06:30 INR 3.00 (0.93-1.08) H 05/31/17 06:30 APTT 50.0 Seconds (25.1-36.5) H 05/30/17 03:19 pCO2 41 mm/Hg (35-45) 05/30/17 10:30 pO2 54.0 mm/Hg (80-100) L 05/30/17 10:30 HCO3 29.2 mmol/L (21-28) H 05/30/17 10:30 ABG pH 7.46 (7.35-7.45) H 05/30/17 10:30 ABG Total CO2 30.5 mmol.L (22-28) H 05/30/17 10:30 ABG O2 Saturation 94.4 % (95-98) L 05/30/17 10:30 ABG Base Excess 4.9 mmol/L (-2.0-3.0) H 05/30/17 10:30 ABG Potassium 3.1 mmol/L (3.6-5.2) L 05/30/17 10:30 Sodium 129.0 mmol/L (132-148) L 05/30/17 10:30 Chloride 95.0 mmol/L (98-107) L 05/30/17 10:30 Glucose 112 mg/dl (65-105) H 05/30/17 10:30 Lactate 1.2 mmol/L (0.7-2.1) 05/30/17 10:30 FiO2 21.0 % 05/30/17 10:30 Sodium 130 mmol/L (132-148) L 05/31/17 05:30 Potassium 4.3 mmol/L (3.6-5.0) 05/31/17 05:30 Chloride 93 mmol/L (98-107) L 05/31/17 05:30 Carbon Dioxide 29 mmol/L (21-33) 05/31/17 05:30 Anion Gap 12 (10-20) 05/31/17 05:30 BUN 20 mg/dL (7-21) 05/31/17 05:30 Creatinine 0.7 mg/dl (0.7-1.2) 05/31/17 05:30 Est GFR ( Amer) > 60 05/31/17 05:30 Est GFR (Non-Af Amer) > 60 05/31/17 05:30 Random Glucose 122 mg/dL (70-110) H 05/31/17 05:30 Hemoglobin A1c 5.6 % (4.2-6.5) 05/31/17 05:30 Calcium 9.8 mg/dL (8.4-10.5) 05/31/17 05:30 Phosphorus 4.1 mg/dL (2.5-4.5) 05/31/17 05:30 Magnesium 2.1 mg/dL (1.7-2.2) 05/31/17 05:30 Total Bilirubin 0.6 mg/dL (0.2-1.3) 05/31/17 05:30 AST 23 U/L (14-36) 05/31/17 05:30 ALT 22 U/L (7-56) 05/31/17 05:30 Alkaline Phosphatase 72 U/L (38-126) 05/31/17 05:30 Lactate Dehydrogenase 537 U/L (333-699) 05/30/17 03:19 Total Creatine Kinase 122 U/L (35-230) 05/30/17 03:19 Troponin I < 0.01 ng/mL 05/30/17 14:25 NT-Pro-B Natriuret Pep 1160 pg/mL (0-450) H 05/30/17 03:19 Total Protein 5.9 g/dL (5.8-8.3) 05/31/17 05:30 Albumin 3.4 g/dL (3.0-4.8) 05/31/17 05:30 Globulin 2.5 gm/dL 05/31/17 05:30 Albumin/Globulin Ratio 1.4 (1.1-1.8) 05/31/17 05:30 Triglycerides 37 mg/dL (35-160) 05/31/17 05:30 Cholesterol 125 mg/dL (130-200) L 05/31/17 05:30 LDL Cholesterol Direct < 30 mg/dL (0-129) 05/31/17 05:30 HDL Cholesterol 76 mg/dL (29-60) H 05/31/17 05:30 Procalcitonin 0.19 NG/ML (0.19-0.49) 05/30/17 08:20 Free T4 0.97 ng/dL (0.78-2.19) 05/31/17 06:30 TSH 3rd Generation 0.41 mIU/mL (0.46-4.68) L 05/31/17 05:30 Arterial Blood Potassium 3.1 mmol/L (3.6-5.2) L 05/30/17 10:30 Urine Color Yellow (YELLOW) 05/30/17 05:59 Urine Appearance Clear (CLEAR) 05/30/17 05:59 Urine pH 6.0 (4.7-8.0) 05/30/17 05:59 Ur Specific [place] 1.020 (1.005-1.035) 05/30/17 05:59 Urine Protein Negative mg/dL (<30 mg/dL) 05/30/17 05:59 Urine Glucose (UA) Negative mg/dL (NEGATIVE) 05/30/17 05:59 Urine Ketones Negative mg/dL (NEGATIVE) 05/30/17 05:59 Urine Blood Negative (NEGATIVE) 05/30/17 05:59 Urine Nitrate Negative (NEGATIVE) 05/30/17 05:59 Urine Bilirubin Negative (NEGATIVE) 05/30/17 05:59 Urine Urobilinogen 1.0 E.U./dL (<1 E.U./dL) H 05/30/17 05:59 Ur Leukocyte Esterase Small Moo/uL (NEGATIVE) H 05/30/17 05:59 Urine RBC 0 - 2 /hpf (0-2) 05/30/17 05:59 Urine WBC 5 - 10 /hpf (0-6) 05/30/17 05:59 Ur Epithelial Cells 3 - 4 /hpf (0-5) 05/30/17 05:59 Urine Bacteria Small (NEG) 05/30/17 05:59 Ur Random Creatinine 25 mg/dL 05/31/17 14:30 Ur Random Sodium < 5 meq/L 05/31/17 14:30 Ur Random Potassium 12.2 meq/L 05/31/17 14:30 Ur Random Uric Acid 20.7 mg/dL 05/31/17 14:30 - Hospital Course Hospital Course: 71 year old female with a past medical history significant for atrial fibrillation on coumadin, CHF with EF 45% (05/2016), COPD, non-occlusive CAD, and anxiety who presented with right sided rib/shoulder pain with radiation to left side and COPD exacerbation. She had three serial troponins that were negative and rate controlled atrial fibrillation on EKG. A lipid panel and A1c were within normal limits. Cardiology was consulted and patient was started on Cardizem, Digoxin, Lasix, Lisinopril, Metoprolol and Coumadin. Daily INR's were taken and were in therapeutic range. An echo showed an EF of 59.3% and normal LV function. She was started on IV Solu-Medrol and weaned off of this to a PO prednisone taper. She was started on IV Levaquin and taken off of this when a procal was negative. Her home advair was started along with duonebs scheduled and PRN. She was transferred to the TCU for further rehabilitation. - Date & Time of H&P Date of H&P: 05/30/17 Time of H&P: 05:15 Discharge Exam - Head Exam Head Exam: ATRAUMATIC, NORMOCEPHALIC - Eye Exam Eye Exam: EOMI, PERRL Pupil Exam: NORMAL ACCOMODATION, PERRL - ENT Exam ENT Exam: Mucous Membranes Moist, Normal Exam - Neck Exam Neck exam: Full Rom - Respiratory Exam Respiratory Exam: Clear to PA & Lateral, NORMAL BREATHING PATTERN, UNREMARKABLE. absent: Rales, Rhonchi, Wheezes - Cardiovascular Exam Cardiovascular Exam: Irregular Rhythm - GI/Abdominal Exam GI & Abdominal Exam: Normal Bowel Sounds, Unremarkable - Extremities Exam Extremities exam: normal capillary refill, pedal pulses present - Back Exam Back exam: NORMAL INSPECTION - Neurological Exam Neurological exam: Alert, Oriented x3 - Psychiatric Exam Psychiatric exam: Normal Affect, Normal Mood - Skin Skin Exam: Dry, Intact, Normal Color, Warm Discharge Plan - Follow Up Plan Condition: STABLE Disposition: TRANSF TO SNF Instructions: COPD Including Emphysema (DC), Chest Pain (DC) Referrals: Andrea Casas MD [Primary Care Provider] - <Mak Sparrow - Last Filed: 06/01/17 11:46> Provider - Provider Date of Admission: 05/30/17 04:54 Attending physician: Mak Sparrow MD Primary care physician: Andrea Casas MD Hospital Course - Lab Results Lab Results: Micro Results 05/30/17 05:10 Blood Blood Culture - Preliminary NO GROWTH AFTER 48 HOURS Most Recent Lab Values WBC 25.7 10^3/ul (4.5-11.0) H* D 05/31/17 05:30 RBC 4.54 10^6/uL (3.5-6.1) 05/31/17 05:30 Hgb 13.5 g/dL (12.0-16.0) 05/31/17 05:30 Hct 40.0 % (36.0-48.0) 05/31/17 05:30 MCV 88.1 fl (80.0-105.0) 05/31/17 05:30 MCH 29.7 pg (25.0-35.0) 05/31/17 05:30 MCHC 33.8 g/dl (31.0-37.0) 05/31/17 05:30 RDW 14.6 % (11.5-14.5) H 05/31/17 05:30 Plt Count 203 10^3/uL (120.0-450.0) 05/31/17 05:30 MPV 9.2 fl (7.0-11.0) 05/31/17 05:30 Gran % 94.0 % (50.0-68.0) H 05/31/17 05:30 Lymph % (Auto) 3.7 % (22.0-35.0) L 05/31/17 05:30 [place] % (Auto) 2.3 % (1.0-6.0) 05/31/17 05:30 Eos % (Auto) 0.0 % (1.5-5.0) L 05/31/17 05:30 Baso % (Auto) 0.0 % (0.0-3.0) 05/31/17 05:30 Gran # 24.14 (1.4-6.5) H 05/31/17 05:30 Lymph # (Auto) 1.0 (1.2-3.4) L 05/31/17 05:30 [place] # (Auto) 0.6 (0.1-0.6) 05/31/17 05:30 Eos # (Auto) 0.0 (0.0-0.7) 05/31/17 05:30 Baso # (Auto) 0.01 K/mm3 (0.0-2.0) 05/31/17 05:30 Neutrophils % (Manual) 90 % (50.0-70.0) H 05/30/17 08:20 Band Neutrophils % 2 % (0-2) 05/30/17 08:20 Lymphocytes % (Manual) 5 % (22.0-35.0) L 05/30/17 08:20 Monocytes % (Manual) 3 % (1.0-6.0) 05/30/17 08:20 PT 35.3 SECONDS (9.4-12.5) H 05/31/17 06:30 INR 3.00 (0.93-1.08) H 05/31/17 06:30 APTT 50.0 Seconds (25.1-36.5) H 05/30/17 03:19 pCO2 41 mm/Hg (35-45) 05/30/17 10:30 pO2 54.0 mm/Hg (80-100) L 05/30/17 10:30 HCO3 29.2 mmol/L (21-28) H 05/30/17 10:30 ABG pH 7.46 (7.35-7.45) H 05/30/17 10:30 ABG Total CO2 30.5 mmol.L (22-28) H 05/30/17 10:30 ABG O2 Saturation 94.4 % (95-98) L 05/30/17 10:30 ABG Base Excess 4.9 mmol/L (-2.0-3.0) H 05/30/17 10:30 ABG Potassium 3.1 mmol/L (3.6-5.2) L 05/30/17 10:30 Sodium 129.0 mmol/L (132-148) L 05/30/17 10:30 Chloride 95.0 mmol/L (98-107) L 05/30/17 10:30 Glucose 112 mg/dl (65-105) H 05/30/17 10:30 Lactate 1.2 mmol/L (0.7-2.1) 05/30/17 10:30 FiO2 21.0 % 05/30/17 10:30 Sodium 130 mmol/L (132-148) L 05/31/17 05:30 Potassium 4.3 mmol/L (3.6-5.0) 05/31/17 05:30 Chloride 93 mmol/L (98-107) L 05/31/17 05:30 Carbon Dioxide 29 mmol/L (21-33) 05/31/17 05:30 Anion Gap 12 (10-20) 05/31/17 05:30 BUN 20 mg/dL (7-21) 05/31/17 05:30 Creatinine 0.7 mg/dl (0.7-1.2) 05/31/17 05:30 Est GFR ( Amer) > 60 05/31/17 05:30 Est GFR (Non-Af Amer) > 60 05/31/17 05:30 Random Glucose 122 mg/dL (70-110) H 05/31/17 05:30 Hemoglobin A1c 5.6 % (4.2-6.5) 05/31/17 05:30 Calcium 9.8 mg/dL (8.4-10.5) 05/31/17 05:30 Phosphorus 4.1 mg/dL (2.5-4.5) 05/31/17 05:30 Magnesium 2.1 mg/dL (1.7-2.2) 05/31/17 05:30 Total Bilirubin 0.6 mg/dL (0.2-1.3) 05/31/17 05:30 AST 23 U/L (14-36) 05/31/17 05:30 ALT 22 U/L (7-56) 05/31/17 05:30 Alkaline Phosphatase 72 U/L (38-126) 05/31/17 05:30 Lactate Dehydrogenase 537 U/L (333-699) 05/30/17 03:19 Total Creatine Kinase 122 U/L (35-230) 05/30/17 03:19 Troponin I < 0.01 ng/mL 05/30/17 14:25 NT-Pro-B Natriuret Pep 1160 pg/mL (0-450) H 05/30/17 03:19 Total Protein 5.9 g/dL (5.8-8.3) 05/31/17 05:30 Albumin 3.4 g/dL (3.0-4.8) 05/31/17 05:30 Globulin 2.5 gm/dL 05/31/17 05:30 Albumin/Globulin Ratio 1.4 (1.1-1.8) 05/31/17 05:30 Triglycerides 37 mg/dL (35-160) 05/31/17 05:30 Cholesterol 125 mg/dL (130-200) L 05/31/17 05:30 LDL Cholesterol Direct < 30 mg/dL (0-129) 05/31/17 05:30 HDL Cholesterol 76 mg/dL (29-60) H 05/31/17 05:30 Procalcitonin 0.19 NG/ML (0.19-0.49) 05/30/17 08:20 Free T4 0.97 ng/dL (0.78-2.19) 05/31/17 06:30 TSH 3rd Generation 0.41 mIU/mL (0.46-4.68) L 05/31/17 05:30 Arterial Blood Potassium 3.1 mmol/L (3.6-5.2) L 05/30/17 10:30 Urine Color Yellow (YELLOW) 05/30/17 05:59 Urine Appearance Clear (CLEAR) 05/30/17 05:59 Urine pH 6.0 (4.7-8.0) 05/30/17 05:59 Ur Specific [place] 1.020 (1.005-1.035) 05/30/17 05:59 Urine Protein Negative mg/dL (<30 mg/dL) 05/30/17 05:59 Urine Glucose (UA) Negative mg/dL (NEGATIVE) 05/30/17 05:59 Urine Ketones Negative mg/dL (NEGATIVE) 05/30/17 05:59 Urine Blood Negative (NEGATIVE) 05/30/17 05:59 Urine Nitrate Negative (NEGATIVE) 05/30/17 05:59 Urine Bilirubin Negative (NEGATIVE) 05/30/17 05:59 Urine Urobilinogen 1.0 E.U./dL (<1 E.U./dL) H 05/30/17 05:59 Ur Leukocyte Esterase Small Moo/uL (NEGATIVE) H 05/30/17 05:59 Urine RBC 0 - 2 /hpf (0-2) 05/30/17 05:59 Urine WBC 5 - 10 /hpf (0-6) 05/30/17 05:59 Ur Epithelial Cells 3 - 4 /hpf (0-5) 05/30/17 05:59 Urine Bacteria Small (NEG) 05/30/17 05:59 Ur Random Creatinine 25 mg/dL 05/31/17 14:30 Ur Random Sodium < 5 meq/L 05/31/17 14:30 Ur Random Potassium 12.2 meq/L 05/31/17 14:30 Ur Random Uric Acid 20.7 mg/dL 05/31/17 14:30 Attending/Attestation - Attestation I have personally seen and examined this patient.: Yes I have fully participated in the care of the patient.: Yes I have reviewed all pertinent clinical information, including history, physical exam and plan: Yes Notes (Text): 06/01/17 11:41 Medical record note made by the resident after discussion with my direction and input after the patient was personally seen and examined by me. I have reviewed the chart and agree that the record accurately reflects by personal performance of the history, physical exam, data review, and medical decision-making, in the course for the patient. I have also personally directed the plan of care. 71 year old female with a past medical history significant for atrial fibrillation on coumadin, CHF with diastolic dysfunction, , COPD, non- occlusive CAD, and anxiety was admitted with cough and dyspnea found to have COPD exacerbation.Patient was treated with NEB/IV steroid and antibiotics.She has responded well.Her Hypoxia is improved.She is on room air.Patient Echo on showed EF 55%.She is on oral lasix and is euvolemic. She was evaluated by Physical therapy and TCU has been recommended.She will be discharged to TCU for rehabilitation. 06/01/17 11:45
== END 2017-05-31 19:15 ==
LOC: ED 02:30 → ERH 04:54 → 3RSO 08:35
PROVIDERS: ADMIT Internal Medicine; ATTEND Internal Medicine
DX: J44.1 Chronic obstructive pulmonary disease with (acute) exacerbation (principal); I11.0 Hypertensive heart disease with heart failure; I50.9 Heart failure, unspecified; I48.2 Chronic atrial fibrillation; I42.9 Cardiomyopathy, unspecified; I25.10 Atherosclerotic heart disease of native coronary artery without angina pectoris; I08.3 Combined rheumatic disorders of mitral, aortic and tricuspid valves; F41.9 Anxiety disorder, unspecified; K21.9 Gastro-esophageal reflux disease without esophagitis; M25.511 Pain in right shoulder; E78.5 Hyperlipidemia, unspecified; Z79.01 Long term (current) use of anticoagulants; Z87.891 Personal history of nicotine dependence; Z88.1 Allergy status to other antibiotic agents
CPT/HCPCS: 36415; 70450; 71045; 73523; 73560; 80053; 80061; 81001; 82550; 82570; 82803; 83036; 83615; 83735; 83880; 84100; 84133; 84145; 84300; 84439; 84443; 84484; 84560; 85025; 85027; 85610; 85730; 87040; 87086; 93005; 93306; 94640; 96365; 96375; 96376; 97116; 97162; 99285; G0378; G8978; G8979; J1940; J2270; J2920; J3475

== ENCOUNTER 2017-05-31 19:15 | Inpatient (IN) | payer MEDICARE, OTHER ==
[2017-05-31] MEDS ORDERED: Albuterol 0.083% Inhal Sol (2.5 mg/3 mL) UD INH PRN (20:27)
[2017-05-31] MEDS: Albuterol-Ipratrop 3 mg / 0.5 (3 ml) UD IH SCH ×2 (20:58→23:30)
[2017-06-01 00:47] VITALS: BMI 23.9
[2017-06-01] MEDS: Albuterol-Ipratrop 3 mg / 0.5 (3 ml) UD IH SCH ×6 (03:30→20:14)
[2017-06-01] MEDS: Pantoprazole 40 mg EC Tab PO SCH (05:37)
[2017-06-01 06:19] LABS: BASO # 0.01 K/mm3 (0.0-2.0); BASO % 0.1 % (0.0-3.0); EOS % 0.1 % (1.5-5.0); GRAN # 16.1 (1.4-6.5); GRAN % 87.5 % (50.0-68.0); HEMOGLOBIN 12.9 g/dL (12.0-16.0); LYMPH # 1.4 (1.2-3.4); LYMPH % 7.5 % (22.0-35.0); MEAN CELL VOLUME 87.4 fl (80.0-105.0); MEAN CORPUSCULAR HEMOGLOBIN 29.6 pg (25.0-35.0); MEAN CORPUSCULAR HGB CONC 33.9 g/dl (31.0-37.0); MEAN PLATELET VOLUME 9.3 fl (7.0-11.0); MONO # 0.9 (0.1-0.6); MONO % 4.8 % (1.0-6.0); RBC 4.36 10^6/uL (3.5-6.1); RED CELL DISTRIBUTION WIDTH 14.5 % (11.5-14.5); WHITE BLOOD COUNT 18.4 10^3/ul (4.5-11.0)
[2017-06-01 06:29] LABS: INR 3.23 (0.93-1.08)
[2017-06-01 06:45] LABS: ALB/GLOB RATIO 1.3 (1.1-1.8); ALBUMIN 3.3 g/dL (3.0-4.8); ALT/SGPT 34 U/L (7-56); AST/SGOT 32 U/L (14-36); BLOOD UREA NITROGEN 15 mg/dL (7-21); CALCIUM 9.5 mg/dL (8.4-10.5); GFR AFRICAN-AMERICAN > 60; GFR NON-AFRICAN AMERICAN > 60
[2017-06-01] MEDS: Arformoterol 15 mcg/2 ml Inh Sol IH SCH ×3 (07:31→20:17)
[2017-06-01] MEDS: Budesonide 0.5 mg/2 ml Inhal Susp UD IH SCH ×3 (07:31→20:17)
[2017-06-01] MEDS ORDERED: Arformoterol 15 mcg/2 ml Inh Sol IH SCH (08:00)
[2017-06-01] MEDS: guaiFENesin DM 200 mg-20 mg/10 ml UD PO SCH ×3 (10:07→17:59)
[2017-06-01] MEDS: diltiaZEM 120 mg/24 Hours CD Cap PO SCH (10:08)
[2017-06-01] MEDS: Digoxin 250 mcg (0.25 mg) Tab PO SCH (14:10)
--- NOTE | 2017-06-01 17:34 | CP.PCM.HP ---
<Neto Allison - Last Filed: 06/01/17 17:03> History of Present Illness - History of Present Illness History of Present Illness: Ms. Arciniega is a 71 year old female with a past medical history significant for Atrial Fibrillation on Coumadin, COPD, CHF, asthma, CAD, and anxiety who initially presented for right sided angina and SOB who was then discharged to the TCU for further rehabilitation. Patient reports that did not sleep well initially as she is worried about her granddaughter who is having social issues at home. She endorses that she still feels "under the weather" and has refused physical therapy for this reason. She endorses that her presenting chest pain has resolved and her SOB has improved. She denies any other complaints at this time including fever, chills, headache, chest pain, palpitations, SOB, cough, wheezing, abdominal pain, N/V/D/C, urinary symptoms, skin changes or any numbness/tingling/weakness of any extremity. PMH: Atrial Fibrillation on Coumadin, COPD, CHF, asthma, CAD, and anxiety PSH: Lung Harmatoma Removal Family History: Mother-Cervical Cancer; Brother-Abdominal Cancer (Unknown primary) Social History: 50+ pack year smoking history with current vaporizer use; Denies alcohol or illicit drug use; Lives with daughter and granddaughter Allergies: Zithromax Home Medications: As per MAR Present on Admission - Present on Admission Any Indicators Present on Admission: No Review of Systems - Review of Systems Review of Systems: As per HPI, otherwise negative Past Patient History - Infectious Disease Hx of Infectious Diseases: None - Past Medical History & Family History Past Medical History?: Yes - Past Social History Smoking Status: Current Some Days Smoker - CARDIAC Hx Cardiac Disorders: Yes Hx Congestive Heart Failure: Yes Hx Hypertension: Yes - PULMONARY Hx Chronic Obstructive Pulmonary Disease (COPD): Yes - NEUROLOGICAL Hx Neurological Disorder: Yes Hx Dizziness: Yes (and lightheaded since june 2015) Other/Comment: headaches that radiate to back of neck on and off x 15 yrs, "charley horses" to feet ankles legs and c/o hands "lock up" since june 2015 - HEENT Hx HEENT Problems: No - RENAL Hx Chronic Kidney Disease: No - ENDOCRINE/METABOLIC Hx Endocrine Disorders: No - HEMATOLOGICAL/ONCOLOGICAL Hx Blood Disorders: No - INTEGUMENTARY Hx Dermatological Problems: No - MUSCULOSKELETAL/RHEUMATOLOGICAL Hx Falls: Yes - GASTROINTESTINAL Hx Gastrointestinal Disorders: No - GENITOURINARY/GYNECOLOGICAL Hx Reproductive Disorders: No - PSYCHIATRIC Hx Psychophysiologic Disorder: Yes Hx Anxiety: Yes Hx Bipolar Disorder: No Hx Depression: Yes Hx Emotional Abuse: No Hx Hallucinations: No Hx Panic Symptoms: No Hx Paranoia: No Hx Post Traumatic Stress Disorder: No Hx Psychosis: No Hx Physical Abuse: No Hx Schizophrenia: No Hx Sexual Abuse: No Hx Substance Use: No - SURGICAL HISTORY Hx Surgeries: Yes Hx Cardiac Catheterization: Yes (X1) Other/Comment: robotic left lower wedge resection and lymphaderectomy 06/2015, polypectomy - ANESTHESIA Hx Anesthesia: Yes Hx Anesthesia Reactions: No Hx Malignant Hyperthermia: No Meds Allergies/Adverse Reactions: Allergies Allergy/AdvReac Type Severity Reaction Status Date / Time azithromycin [From Zithromax] AdvReac Intermediate RASH Verified 06/01/17 03:55 Physical Exam - Constitutional Appears: Non-toxic, No Acute Distress - Head Exam Head Exam: ATRAUMATIC, NORMOCEPHALIC - Eye Exam Eye Exam: EOMI, PERRL Pupil Exam: NORMAL ACCOMODATION, PERRL - ENT Exam ENT Exam: Mucous Membranes Moist, Normal Exam - Neck Exam Neck exam: Positive for: Full Rom, Normal Inspection. Negative for: Lymphadenopathy - Respiratory Exam Respiratory Exam: Clear to Auscultation Bilateral, NORMAL BREATHING PATTERN. absent: Rales, Rhonchi, Wheezes, Respiratory Distress - Cardiovascular Exam Cardiovascular Exam: Irregular Rhythm, +S1, +S2. absent: Bradycardia, Tachycardia, REGULAR RHYTHM, RRR - GI/Abdominal Exam GI & Abdominal Exam: Normal Bowel Sounds, Soft. absent: Tenderness - Extremities Exam Extremities exam: Positive for: full ROM, normal capillary refill, normal inspection, pedal pulses present. Negative for: calf tenderness, joint swelling , pedal edema, tenderness - Back Exam Back exam: NORMAL INSPECTION - Neurological Exam Neurological exam: Alert, CN II-XII Intact, Oriented x3 - Psychiatric Exam Psychiatric exam: Normal Affect, Normal Mood - Skin Skin Exam: Dry, Intact, Normal Color, Warm Results - Vital Signs Recent Vital Signs: Last Vital Signs Temp 97.9 F 06/01/17 16:35 Pulse 83 06/01/17 16:35 Resp 18 06/01/17 16:35 BP 126/84 06/01/17 16:35 Pulse Ox 97 06/01/17 16:35 - Labs Result Diagrams: 06/01/17 06:10 06/01/17 06:10 Labs: Laboratory Results - last 24 hr 06/01/17 06/01/17 06/01/17 06:10 06:10 06:10 WBC 18.4 H D RBC 4.36 Hgb 12.9 Hct 38.1 MCV 87.4 MCH 29.6 MCHC 33.9 RDW 14.5 Plt Count 218 MPV 9.3 Gran % 87.5 H Lymph % (Auto) 7.5 L [place] % (Auto) 4.8 Eos % (Auto) 0.1 L Baso % (Auto) 0.1 Gran # 16.10 H Lymph # (Auto) 1.4 [place] # (Auto) 0.9 H Eos # (Auto) 0.0 Baso # (Auto) 0.01 PT 38.0 H INR 3.23 H Sodium 130 L Potassium 3.9 Chloride 93 L Carbon Dioxide 31 Anion Gap 10 BUN 15 Creatinine 0.5 L Est GFR ( Amer) > 60 Est GFR (Non-Af Amer) > 60 Random Glucose 101 Calcium 9.5 Total Bilirubin 0.3 AST 32 ALT 34 Alkaline Phosphatase 61 Total Protein 5.8 Albumin 3.3 Globulin 2.5 Albumin/Globulin Ratio 1.3 Assessment & Plan - Assessment and Plan (Free Text) Assessment: 71 year old female with a past medical history significant for Atrial Fibrillation on Coumadin, COPD, CHF, asthma, CAD, and anxiety who initially presented for right sided angina and SOB who was then discharged to the TCU for further rehabilitation. Plan: 1. Chest Pain -Initial EKG showed atrial fibrillation at 90 beats/min with non-specific ST wave changes -Three negative serial troponins -Cardiology consulted, all recommendations appreciated 2. COPD Exacerbation -Chest X-Ray showed increased interstitial markings -Continue Duonebs Q4 scheduled and nebulized Albuterol Q6 PRN -Continue Brovana and Pulmicort -Continue Prednisone 40mg PO for 4 days -Continue supplemental oxygen via NC PRN -Continue Robitussin PRN for cough and Tylenol PRN for fever 3. CHF -Echo showed LVEF of 59.3% and normal LV function -Continue Lasix 40mg PO daily -Continue Spironolactone and Lisinopril -Continue PT/OT 4. Atrial Fibrillation -Continue Digoxin and Cardizem -Holding Coumadin as INR supratherapeutic at 3.23 -Continue monitoring with daily INR 5. History of HLD -Lipid panel within normal limits -Continue Lipitor 6. History of Anxiety -Continue Zoloft and Xanax GI Prophylaxis: Protonix DVT Prophylaxis: Coumadin and SCD's Patient seen and case discussed with attending, Dr. Sparrow. - Date & Time Date: 06/01/17 Time: 17:36 <Mak Sparrow - Last Filed: 06/02/17 14:37> Results - Vital Signs Recent Vital Signs: Last Vital Signs Temp 98.5 F 06/02/17 06:00 Pulse 84 06/02/17 07:46 Resp 16 06/02/17 06:00 BP 171/92 H 06/02/17 08:03 Pulse Ox 96 06/02/17 06:00 - Labs Result Diagrams: 06/02/17 07:00 06/02/17 07:00 Labs: Laboratory Results - last 24 hr 06/02/17 06/02/17 06/02/17 07:00 07:00 07:00 WBC 9.1 D RBC 4.79 Hgb 14.1 Hct 42.4 MCV 88.5 MCH 29.4 MCHC 33.3 RDW 14.8 H Plt Count 252 MPV 9.2 Gran % 75.8 H Lymph % (Auto) 15.9 L [place] % (Auto) 7.4 H Eos % (Auto) 0.7 L Baso % (Auto) 0.2 Gran # 6.91 H Lymph # (Auto) 1.5 [place] # (Auto) 0.7 H Eos # (Auto) 0.1 Baso # (Auto) 0.02 PT 24.9 H INR 2.13 H Sodium 132 Potassium 4.1 Chloride 96 L Carbon Dioxide 31 Anion Gap 9 L BUN 15 Creatinine 0.6 L Est GFR ( Amer) > 60 Est GFR (Non-Af Amer) > 60 Random Glucose 88 Calcium 9.6 Total Bilirubin 0.4 AST 44 H D ALT 53 Alkaline Phosphatase 58 Total Protein 6.1 Albumin 3.5 Globulin 2.6 Albumin/Globulin Ratio 1.4 Attending/Attestation - Attestation I have personally seen and examined this patient.: Yes I have fully participated in the care of the patient.: Yes I have reviewed all pertinent clinical information: Yes Notes (Text): 06/02/17 14:36 Medical record note made by the resident after discussion with my direction and input after the patient was personally seen and examined by me. I have reviewed the chart and agree that the record accurately reflects by personal performance of the history, physical exam, data review, and medical decision-making, in the course for the patient. I have also personally directed the plan of care. 71 year old female with a past medical history significant for atrial fibrillation on coumadin, CHF with diastolic dysfunction, , COPD, non- occlusive CAD, and anxiety was admitted with cough and dyspnea found to have COPD exacerbation.Patient was treated with NEB/IV steroid and antibiotics.She has responded well.Her Hypoxia is improved.She is on room air.Patient Echo on showed EF 55%.She is on oral lasix and is euvolemic. She was evaluated by Physical therapy and TCU has been recommended.She is admitted to TCU for rehabilitation.
--- NOTE | 2017-06-01 19:23 | CON ---
DATE: SERVICE: Cardiology. REASON FOR CONSULTATION: Atrial fibrillation, cardiomyopathy, nonobstructive coronary artery disease, atypical chest pain, COPD, continuity of care in Transitional Care Unit. BRIEF CLINICAL HISTORY: A 71-year-old female with a past medical history significant for atrial fibrillation, on Coumadin; history of nonobstructive coronary artery disease, who initially came to the floor with complaining of feeling very sick and complaining of right-sided atypical chest pain. No evidence of [place]. PAST HISTORY: Significant for atrial fibrillation, on Coumadin; asthma; COPD; CAD; and anxiety disorder. PAST SURGICAL HISTORY: Significant for lung resection in 2014. ALLERGIES: ALLERGIC TO ZITHROMAX AND GETS RASH. PREVIOUS CARDIAC WORKUP: As follows: Patient had a stress test dated 06/14/2016 that showed an abnormal myocardial perfusion suspicious for ischemia, ejection 37%. Following that patient had a cardiac catheterization done on 06/29/2016 that shows nonobstructive coronary artery disease, limited only to very distal LAD, diffusely diseased, but no focal flow-limiting stenosis noted, moderately decreased LV function, ejection fraction of 35% to 40%; EDP was in the range of 20. No gradient across aortic valve noted on pullback. The echo shows keku-iy-yezownci aortic stenosis, but in cardiac catheterization, no gradient across the aortic valve noted. At that time, recommendation was made to treat it very aggressively including digoxin, diuretics, LADARIUS inhibitors, Coreg, and Coumadin for atrial fibrillation and follow up LV function in 3 to 6 months and if remains below 35, consider AICD, cath dated 06/29/2016. Patient also had an echocardiography on 06/01/2016, that shows no prolapse, ejection fraction of 35%, kgva-eu-rainrwdz aortic stenosis as mentioned above, aortic valve area of 1.2 cm2, mitral valve mild regurgitation, mild tricuspid regurgitation. Patient's repeat echo done during this admission in acute floor dated 05/30/2016, that shows an ejection fraction significant for 55% to 60%, bsau-vy-rwmcdztg valvular aortic stenosis as before, biutj-hi-nxuq mitral regurgitation, and crmj-os-fhdezbqu tricuspid regurgitation, RV systolic pressure of 37. CURRENT MEDICATIONS: Patient is taking albuterol, spironolactone, diltiazem, Coumadin, digoxin, furosemide, atorvastatin, Xanax, lisinopril, and Lasix. REVIEW OF SYSTEMS: As per HPI. PHYSICAL EXAMINATION: VITAL SIGNS: Temperature afebrile, heart rate 87, and blood pressure 130/87. HEENT: PERRLA. Extraocular muscles intact. NECK: Supple. No carotid bruit or thyromegaly. CHEST: Clear to auscultation. HEART: S1 and S2, regular. ABDOMEN: Soft. EXTREMITIES: Clubbing and cyanosis negative. LABORATORY DATA: Blood workup as follows: WBC 18.5, hemoglobin 12.9, hematocrit 38.1, platelet count 218. Chemistry shows sodium 130, potassium 3.9, chloride 96, carbon dioxide 31, anion gap of 10. BUN 15, creatinine 0.5. IMPRESSION: Chronic obstructive pulmonary disease exacerbation; history of chronic atrial fibrillation, on anticoagulation, last INR is 3.23 today; hypertension; hyperlipidemia; cardiomyopathy, significantly improved; ex-tobacco abuse. A recent echo this admission; significantly improved left ventricular function, mild mitral regurgitation, mild tricuspid regurgitation, right ventricular systolic pressure of 37, qibx-pb-hlhqkysg aortic stenosis by echo, but last catheterization recently a year ago, no significant gradient across aortic valve noted, right ventricular systolic pressure of 37, hseu-hj-cigwmlrb tricuspid regurgitation. RECOMMENDATION: Hold Coumadin because the INR is more than 3.27, supratherapeutic INR. Continue Cardizem. Continue LADARIUS inhibitors. Continue spironolactone. Continue diuretics. Continue digoxin. Continue atorvastatin. Repeat the lab in the morning and hold Coumadin today. Thank you, Dr. Rodriguez, for providing us the opportunity in taking care of the patient, Alecia Arciniega. We will follow with you. Mak Mendez MD
[2017-06-02] MEDS: Albuterol-Ipratrop 3 mg / 0.5 (3 ml) UD IH SCH ×6 (00:05→19:45)
[2017-06-02] MEDS: Pantoprazole 40 mg EC Tab PO SCH (05:14)
[2017-06-02] MEDS: Budesonide 0.5 mg/2 ml Inhal Susp UD IH SCH ×2 (07:25→19:45)
[2017-06-02] MEDS: Arformoterol 15 mcg/2 ml Inh Sol IH SCH ×2 (07:25→19:45)
[2017-06-02 07:30] LABS: BASO # 0.02 K/mm3 (0.0-2.0); BASO % 0.2 % (0.0-3.0); EOS # 0.1 (0.0-0.7); EOS % 0.7 % (1.5-5.0); GRAN # 6.91 (1.4-6.5); GRAN % 75.8 % (50.0-68.0); HEMOGLOBIN 14.1 g/dL (12.0-16.0); LYMPH # 1.5 (1.2-3.4); LYMPH % 15.9 % (22.0-35.0); MEAN CELL VOLUME 88.5 fl (80.0-105.0); MEAN CORPUSCULAR HEMOGLOBIN 29.4 pg (25.0-35.0); MEAN CORPUSCULAR HGB CONC 33.3 g/dl (31.0-37.0); MEAN PLATELET VOLUME 9.2 fl (7.0-11.0); MONO # 0.7 (0.1-0.6); MONO % 7.4 % (1.0-6.0); RBC 4.79 10^6/uL (3.5-6.1); RED CELL DISTRIBUTION WIDTH 14.8 % (11.5-14.5); WHITE BLOOD COUNT 9.1 10^3/ul (4.5-11.0)
[2017-06-02 07:37] LABS: INR 2.13 (0.93-1.08); PROTHROMBIN TIME 24.9 SECONDS (9.4-12.5)
[2017-06-02] MEDS: diltiaZEM 120 mg/24 Hours CD Cap PO SCH ×2 (07:46→10:45)
[2017-06-02 08:03] LABS: ALB/GLOB RATIO 1.4 (1.1-1.8); ALBUMIN 3.5 g/dL (3.0-4.8); ALT/SGPT 53 U/L (7-56); AST/SGOT 44 U/L (14-36); BLOOD UREA NITROGEN 15 mg/dL (7-21); CALCIUM 9.6 mg/dL (8.4-10.5); GFR AFRICAN-AMERICAN > 60; GFR NON-AFRICAN AMERICAN > 60
[2017-06-02] MEDS: guaiFENesin DM 200 mg-20 mg/10 ml UD PO SCH ×3 (10:45→17:03)
--- NOTE | 2017-06-02 11:08 | CP.PCM.PN ---
Subjective - Date & Time of Evaluation Date of Evaluation: 06/02/17 Time of Evaluation: 09:00 - Subjective Subjective: Seen and examined by me and Dr. Blake Reason for consultation and follow up:Atrial fibrillation, cardiomyopathy,non obstructive coronary artery disease,atypical chestpain, COPD continuity of care in TCU Denies chest pain, slight shortness of breath on nasal cannula Objective - Vital Signs/Intake and Output Vital Signs (last 24 hours): Temp Pulse Resp BP Pulse Ox 98.5 F 84 16 171/92 H 96 06/02/17 06:00 06/02/17 07:46 06/02/17 06:00 06/02/17 08:03 06/02/17 06:00 - Medications Medications: Current Medications Acetaminophen (Tylenol 325mg Tab) 650 mg PO Q6H PRN PRN Reason: Pain, Mild (1-3) Last Admin: 06/02/17 07:50 Dose: 650 mg Albuterol Sulfate (Albuterol 0.083% Inhal Dede (2.5 Mg/3 Ml) Ud) 2.5 mg INH [id number] PRN PRN Reason: Shortness of Breath Albuterol/Ipratropium (Duoneb 3 Mg/0.5 Mg (3 Ml) Ud) [id number] [facility] Last Admin: 06/02/17 07:25 Dose: 3 ml Alprazolam (Xanax) 0.5 mg PO TID PRN; Protocol PRN Reason: Anxiety Last Admin: 06/01/17 01:04 Dose: 0.5 mg Arformoterol Tartrate (Brovana) [id number] [facility] Last Admin: 06/02/17 07:25 Dose: 15 mcg Atorvastatin Calcium (Lipitor) [address] [facility] Last Admin: 06/01/17 17:59 Dose: 10 mg Budesonide (Pulmicort Respules) 0.[id number] [facility] Last Admin: 06/02/17 07:25 Dose: 0.5 mg Digoxin (Lanoxin) 0.[address] [facility] Last Admin: 06/01/17 14:10 Dose: 0.25 mg Diltiazem HCl (Cardizem Cd) [address] [facility] Last Admin: 06/02/17 10:45 Dose: Not Given Furosemide (Lasix) [address] [facility] Last Admin: 06/02/17 10:45 Dose: Not Given Guaifenesin/Dextromethorphan (Robitussin Dm) [address] [facility] Last Admin: 06/02/17 10:45 Dose: 10 ml Lisinopril (Zestril) 2.[address] [facility] Last Admin: 06/02/17 10:45 Dose: Not Given Pantoprazole Sodium (Protonix Ec Tab) [address] [facility] Last Admin: 06/02/17 05:14 Dose: 40 mg Prednisone (Prednisone Tab) [address] [facility] PRN Reason: Protocol Stop: 06/06/17 08:01 Last Admin: 06/02/17 08:03 Dose: 40 mg Sertraline HCl (Zoloft) [address] [facility] Last Admin: 06/02/17 10:44 Dose: 50 mg Spironolactone (Aldactone) [address] [facility] Last Admin: 06/02/17 10:45 Dose: 25 mg Warfarin Sodium (Coumadin) [address] [facility] PRN Reason: Protocol - Labs Labs: 06/02/17 07:00 06/02/17 07:00 PT 24.9 SECONDS (9.4-12.5) H 06/02/17 07:00 INR 2.13 (0.93-1.08) H 06/02/17 07:00 - Constitutional Appears: No Acute Distress - Head Exam Head Exam: NORMAL INSPECTION - Eye Exam Eye Exam: Normal appearance Pupil Exam: NORMAL ACCOMODATION - Respiratory Exam Additional comments: Slight shortness of breath on nasal cannula - Extremities Exam Extremities Exam: Normal Capillary Refill, Normal Inspection - Neurological Exam Neurological Exam: Alert, Awake - Psychiatric Exam Psychiatric exam: Normal Affect, Normal Mood - Skin Skin Exam: Dry, Intact, Normal Color, Warm Assessment and Plan - Assessment and Plan (Free Text) Assessment: Impression: Chronic obstructive pulmonary disease exacerbation, chronic atrial fibrillation, on coumadin, hypertension, hyperlipidemia, cardiomyopathy, ex tobacco abuse. Plan: Continue Cardizem, digoxin, Lisinopril,Aldactone and Lasix as ordered Potassium level 4.1 today Coumadin was held yesterday due to elevated INR INR today 2.1 Give Coumadin 5 mg today and repeat INR in am Stable, Will follow up Plan and treatment reviewed with Dr. Blake
[2017-06-02] MEDS: Digoxin 250 mcg (0.25 mg) Tab PO SCH (13:20)
[2017-06-03] MEDS: Albuterol-Ipratrop 3 mg / 0.5 (3 ml) UD IH SCH ×7 (00:20→23:50)
[2017-06-03] MEDS: Pantoprazole 40 mg EC Tab PO SCH (05:42)
[2017-06-03] MEDS: Budesonide 0.5 mg/2 ml Inhal Susp UD IH SCH ×2 (07:02→20:29)
[2017-06-03] MEDS: Arformoterol 15 mcg/2 ml Inh Sol IH SCH ×2 (07:02→20:29)
[2017-06-03 07:58] LABS: BASO # 0.01 K/mm3 (0.0-2.0); BASO % 0.1 % (0.0-3.0); EOS % 0.3 % (1.5-5.0); GRAN # 6.55 (1.4-6.5); GRAN % 66.2 % (50.0-68.0); HEMOGLOBIN 14.6 g/dL (12.0-16.0); LYMPH # 2.6 (1.2-3.4); LYMPH % 26.2 % (22.0-35.0); MEAN CELL VOLUME 88.4 fl (80.0-105.0); MEAN CORPUSCULAR HEMOGLOBIN 29.3 pg (25.0-35.0); MEAN CORPUSCULAR HGB CONC 33.2 g/dl (31.0-37.0); MONO # 0.7 (0.1-0.6); MONO % 7.2 % (1.0-6.0); RBC 4.98 10^6/uL (3.5-6.1); RED CELL DISTRIBUTION WIDTH 14.7 % (11.5-14.5); WHITE BLOOD COUNT 9.9 10^3/ul (4.5-11.0)
[2017-06-03 08:11] LABS: INR 2.06 (0.93-1.08)
[2017-06-03 08:24] LABS: ALB/GLOB RATIO 1.5 (1.1-1.8); ALBUMIN 3.8 g/dL (3.0-4.8); ALT/SGPT 67 U/L (7-56); AST/SGOT 46 U/L (14-36); BLOOD UREA NITROGEN 13 mg/dL (7-21); CALCIUM 9.9 mg/dL (8.4-10.5); GFR AFRICAN-AMERICAN > 60; GFR NON-AFRICAN AMERICAN > 60
--- NOTE | 2017-06-03 08:56 | CP.PCM.PN ---
Subjective - Date & Time of Evaluation Date of Evaluation: 06/03/17 Time of Evaluation: 08:00 - Subjective Subjective: Seen and examined by me and Dr. Blake Reason for consultation and follow up:Atrial fibrillation, cardiomyopathy,non obstructive coronary artery disease,atypical chestpain, COPD continuity of care in TCU verbalized Feeling okay, denies chest pain, denies shortness of breath Objective - Vital Signs/Intake and Output Vital Signs (last 24 hours): Temp Pulse Resp BP Pulse Ox 97.7 F 80 14 165/95 H 100 06/02/17 17:36 06/03/17 08:35 06/02/17 17:36 06/03/17 08:35 06/02/17 17:36 - Medications Medications: Current Medications Acetaminophen (Tylenol 325mg Tab) 650 mg PO Q6H PRN PRN Reason: Pain, Mild (1-3) Last Admin: 06/02/17 07:50 Dose: 650 mg Albuterol Sulfate (Albuterol 0.083% Inhal Dede (2.5 Mg/3 Ml) Ud) 2.5 mg INH [id number] PRN PRN Reason: Shortness of Breath Albuterol/Ipratropium (Duoneb 3 Mg/0.5 Mg (3 Ml) Ud) 3 ml IH [id number] [facility] Last Admin: 06/03/17 07:09 Dose: 3 ml Alprazolam (Xanax) 0.5 mg PO TID PRN; Protocol PRN Reason: Anxiety Last Admin: 06/02/17 21:13 Dose: 0.5 mg Arformoterol Tartrate (Brovana) 15 mcg IH [id number] [facility] Last Admin: 06/03/17 07:02 Dose: 15 mcg Atorvastatin Calcium (Lipitor) 10 mg PO DIN [facility] Last Admin: 06/02/17 17:03 Dose: 10 mg Budesonide (Pulmicort Respules) 0.5 mg IH [id number] [facility] Last Admin: 06/03/17 07:02 Dose: 0.5 mg Digoxin (Lanoxin) 0.25 mg PO 1400 [facility] Last Admin: 06/02/17 13:20 Dose: 0.25 mg Diltiazem HCl (Cardizem Cd) 120 mg PO DAILY [facility] Last Admin: 06/02/17 10:45 Dose: Not Given Furosemide (Lasix) 40 mg PO DAILY [facility] Last Admin: 06/02/17 10:45 Dose: Not Given Guaifenesin/Dextromethorphan (Robitussin Dm) 10 ml PO TID [facility] Last Admin: 06/02/17 17:03 Dose: 10 ml Hydralazine HCl (Apresoline) 10 mg PO Q6 PRN PRN Reason: hypertension Stop: 06/10/17 08:48 Lisinopril (Zestril) 10 mg PO DAILY [facility] Pantoprazole Sodium (Protonix Ec Tab) 40 mg PO 0600 [facility] Last Admin: 06/03/17 05:42 Dose: 40 mg Prednisone (Prednisone Tab) 40 mg PO 0800 [facility] PRN Reason: Protocol Stop: 06/06/17 08:01 Last Admin: 06/03/17 08:28 Dose: 40 mg Sertraline HCl (Zoloft) 50 mg PO DAILY [facility] Last Admin: 06/02/17 10:44 Dose: 50 mg Spironolactone (Aldactone) 25 mg PO DAILY [facility] Last Admin: 06/02/17 10:45 Dose: 25 mg Warfarin Sodium (Coumadin) 5 mg PO 1800 [facility] PRN Reason: Protocol Last Admin: 06/02/17 17:03 Dose: 5 mg - Labs Labs: 06/03/17 07:30 06/03/17 07:30 PT 24.0 SECONDS (9.4-12.5) H 06/03/17 07:30 INR 2.06 (0.93-1.08) H 06/03/17 07:30 - Constitutional Appears: Well, No Acute Distress - Head Exam Head Exam: NORMAL INSPECTION - Eye Exam Eye Exam: Normal appearance Pupil Exam: NORMAL ACCOMODATION - ENT Exam ENT Exam: Mucous Membranes Moist - Neck Exam Neck Exam: Normal Inspection - Respiratory Exam Respiratory Exam: Clear to Ausculation Bilateral, NORMAL BREATHING PATTERN - Cardiovascular Exam Cardiovascular Exam: REGULAR RHYTHM, +S1, +S2 - GI/Abdominal Exam GI & Abdominal Exam: Soft, Normal Bowel Sounds - Extremities Exam Extremities Exam: Full ROM, Normal Capillary Refill - Neurological Exam Neurological Exam: Alert, Awake, Oriented x3 - Psychiatric Exam Psychiatric exam: Normal Affect, Normal Mood - Skin Skin Exam: Dry, Intact, Normal Color, Warm Assessment and Plan - Assessment and Plan (Free Text) Assessment: Impression :Atrial fibrillation, cardiomyopathy,non obstructive coronary artery disease,atypical chestpain, COPD continuity of care in TCU Plan: Elevated blood pressure today She is on Lisinopril 2.5 mg daily. Increased to 10 mg daily Continue Digoxin and Diltiazem Potassium 3.9 within normal limits INR 2.06 on coumadin Will follow up Stable Treatment and plan reviewed with Dr. Blake
[2017-06-03] MEDS: diltiaZEM 120 mg/24 Hours CD Cap PO SCH (10:13)
[2017-06-03] MEDS: guaiFENesin DM 200 mg-20 mg/10 ml UD PO SCH ×3 (10:14→17:18)
--- NOTE | 2017-06-03 10:54 | CP.PCM.PN ---
<Neto Allison - Last Filed: 06/03/17 10:51> Subjective - Date & Time of Evaluation Date of Evaluation: 06/03/17 Time of Evaluation: 10:51 - Subjective Subjective: Medicine Progress Note: Patient seen and assessed at bedside in TCU. She endorses that she is "feeling better" and is wondering when she will be able to go home. She denies any complaints at this time including fever, chills, headache, chest pain, palpitations, SOB, wheezing, abdominal pain, N/V/D/C, urinary symptoms, skin changes or any numbness/tingling/weakness of any extremity. Objective - Vital Signs/Intake and Output Vital Signs (last 24 hours): Temp Pulse Resp BP Pulse Ox 97.7 F 80 14 145/70 100 06/02/17 17:36 06/03/17 08:35 06/02/17 17:36 06/03/17 10:14 06/02/17 17:36 - Medications Medications: Current Medications Acetaminophen (Tylenol 325mg Tab) 650 mg PO Q6H PRN PRN Reason: Pain, Mild (1-3) Last Admin: 06/02/17 07:50 Dose: 650 mg Albuterol Sulfate (Albuterol 0.083% Inhal Dede (2.5 Mg/3 Ml) Ud) 2.5 mg INH [id number] PRN PRN Reason: Shortness of Breath Albuterol/Ipratropium (Duoneb 3 Mg/0.5 Mg (3 Ml) Ud) 3 ml IH [id number] [facility] Last Admin: 06/03/17 07:09 Dose: 3 ml Alprazolam (Xanax) 0.5 mg PO TID PRN; Protocol PRN Reason: Anxiety Last Admin: 06/02/17 21:13 Dose: 0.5 mg Arformoterol Tartrate (Brovana) 15 mcg IH [id number] [facility] Last Admin: 06/03/17 07:02 Dose: 15 mcg Atorvastatin Calcium (Lipitor) 10 mg PO DIN [facility] Last Admin: 06/02/17 17:03 Dose: 10 mg Budesonide (Pulmicort Respules) 0.5 mg IH [id number] [facility] Last Admin: 06/03/17 07:02 Dose: 0.5 mg Digoxin (Lanoxin) 0.25 mg PO 1400 [facility] Last Admin: 03/10/18 13:20 Dose: 0.25 mg Diltiazem HCl (Cardizem Cd) 120 mg PO DAILY [facility] Last Admin: 06/03/17 10:13 Dose: 120 mg Furosemide (Lasix) 40 mg PO DAILY [facility] Last Admin: 06/03/17 10:14 Dose: 40 mg Guaifenesin/Dextromethorphan (Robitussin Dm) 10 ml PO TID [facility] Last Admin: 06/03/17 10:14 Dose: 10 ml Hydralazine HCl (Apresoline) 10 mg PO Q6 PRN PRN Reason: hypertension Stop: 06/10/17 08:48 Lisinopril (Zestril) 10 mg PO DAILY [facility] PRN Reason: Protocol Pantoprazole Sodium (Protonix Ec Tab) 40 mg PO 0600 [facility] Last Admin: 06/03/17 05:42 Dose: 40 mg Prednisone (Prednisone Tab) 40 mg PO 0800 [facility] PRN Reason: Protocol Stop: 06/06/17 08:01 Last Admin: 06/03/17 08:28 Dose: 40 mg Sertraline HCl (Zoloft) 50 mg PO DAILY [facility] Last Admin: 06/03/17 10:14 Dose: 50 mg Spironolactone (Aldactone) 25 mg PO DAILY [facility] Last Admin: 06/03/17 10:13 Dose: 25 mg Warfarin Sodium (Coumadin) 5 mg PO 1800 [facility] PRN Reason: Protocol Last Admin: 06/02/17 17:03 Dose: 5 mg - Labs Labs: 06/03/17 07:30 06/03/17 07:30 PT 24.0 SECONDS (9.4-12.5) H 06/03/17 07:30 INR 2.06 (0.93-1.08) H 06/03/17 07:30 - Constitutional Appears: Non-toxic, No Acute Distress - Head Exam Head Exam: ATRAUMATIC, NORMOCEPHALIC - Eye Exam Eye Exam: EOMI, Normal appearance Pupil Exam: NORMAL ACCOMODATION, PERRL - ENT Exam ENT Exam: Mucous Membranes Moist, Normal Exam - Neck Exam Neck Exam: Full ROM, Normal Inspection. absent: Lymphadenopathy, Tenderness - Respiratory Exam Respiratory Exam: Clear to Ausculation Bilateral, NORMAL BREATHING PATTERN. absent: Accessory Muscle Use, Chest Wall Tenderness, Decreased Breath Sounds, Prolonged Expiratory Phase, Rales, Rhonchi, Wheezes, Respiratory Distress, Stridor - Cardiovascular Exam Cardiovascular Exam: Irregular Rhythm, +S1, +S2. absent: Bradycardia, Tachycardia, Clicks, Diastolic murmur, Gallop, REGULAR RHYTHM, JVD, RRR, Rubs, + S4, Murmur - GI/Abdominal Exam GI & Abdominal Exam: Soft, Normal Bowel Sounds. absent: Distended, Firm, Guarding, Tenderness, Rebound - Extremities Exam Extremities Exam: Normal Capillary Refill, Normal Inspection. absent: Calf Tenderness, Joint Swelling, Pedal Edema, Tenderness - Back Exam Back Exam: NORMAL INSPECTION - Neurological Exam Neurological Exam: Alert, Awake, CN II-XII Intact, Oriented x3 - Psychiatric Exam Psychiatric exam: Normal Affect, Normal Mood - Skin Skin Exam: Dry, Intact, Normal Color, Warm Assessment and Plan - Assessment and Plan (Free Text) Assessment: 71 year old female with a past medical history significant for Atrial Fibrillation on Coumadin, COPD, CHF, asthma, CAD, and anxiety who initially presented for right sided angina and SOB who was then discharged to the TCU for further rehabilitation. Plan: 1. Chest Pain -Initial EKG showed atrial fibrillation at 90 beats/min with non-specific ST wave changes -Three negative serial troponins -Cardiology consulted, all recommendations appreciated 2. COPD Exacerbation -Chest X-Ray showed increased interstitial markings -Continue Duonebs Q4 scheduled and nebulized Albuterol Q6 PRN -Continue Brovana and Pulmicort -Continue Prednisone 40mg PO for 4 days -Continue supplemental oxygen via NC PRN -Continue Robitussin PRN for cough and Tylenol PRN for fever 3. CHF -Echo showed LVEF of 59.3% and normal LV function -Continue Lasix 40mg PO daily -Continue Spironolactone -Increased Lisinopril from 2.5mg to 10mg -Continue PT/OT 4. Atrial Fibrillation -Continue Digoxin and Cardizem -Continue Coumadin as INR therapeitic at 2.06 -Continue monitoring with daily INR 5. History of HLD -Lipid panel within normal limits -Lipitor held today as LFT's elevated -Will monitor with daily CMP's 6. History of Anxiety -Continue Zoloft and Xanax GI Prophylaxis: Protonix DVT Prophylaxis: Coumadin and SCD's Patient seen and case discussed with attending, Dr. Shonda Rodriguez. <Shonda Rodriguez - Last Filed: 06/03/17 14:43> Objective - Vital Signs/Intake and Output Vital Signs (last 24 hours): Temp Pulse Resp BP Pulse Ox 97.7 F 80 14 145/70 100 06/02/17 17:36 06/03/17 08:35 06/02/17 17:36 06/03/17 10:14 06/02/17 17:36 - Medications Medications: Current Medications Acetaminophen (Tylenol 325mg Tab) 650 mg PO Q6H PRN PRN Reason: Pain, Mild (1-3) Last Admin: 06/02/17 07:50 Dose: 650 mg Albuterol Sulfate (Albuterol 0.083% Inhal Dede (2.5 Mg/3 Ml) Ud) 2.5 mg INH [id number] PRN PRN Reason: Shortness of Breath Albuterol/Ipratropium (Duoneb 3 Mg/0.5 Mg (3 Ml) Ud) 3 ml IH [id number] [facility] Last Admin: 06/03/17 11:29 Dose: 3 ml Alprazolam (Xanax) 0.5 mg PO TID PRN; Protocol PRN Reason: Anxiety Last Admin: 06/02/17 21:13 Dose: 0.5 mg Arformoterol Tartrate (Brovana) 15 mcg IH [id number] [facility] Last Admin: 06/03/17 07:02 Dose: 15 mcg Atorvastatin Calcium (Lipitor) 10 mg PO DIN [facility] Last Admin: 06/02/17 17:03 Dose: 10 mg Budesonide (Pulmicort Respules) 0.5 mg IH [id number] [facility] Last Admin: 06/03/17 07:02 Dose: 0.5 mg Digoxin (Lanoxin) 0.25 mg PO 1400 [facility] Last Admin: 06/03/17 14:12 Dose: 0.25 mg Diltiazem HCl (Cardizem Cd) 120 mg PO DAILY [facility] Last Admin: 06/03/17 10:13 Dose: 120 mg Furosemide (Lasix) 40 mg PO DAILY [facility] Last Admin: 06/03/17 10:14 Dose: 40 mg Guaifenesin/Dextromethorphan (Robitussin Dm) 10 ml PO TID [facility] Last Admin: 06/03/17 14:12 Dose: 10 ml Hydralazine HCl (Apresoline) 10 mg PO Q6 PRN PRN Reason: hypertension Stop: 06/10/17 08:48 Lisinopril (Zestril) 10 mg PO DAILY [facility] PRN Reason: Protocol Pantoprazole Sodium (Protonix Ec Tab) 40 mg PO 0600 [facility] Last Admin: 06/03/17 05:42 Dose: 40 mg Prednisone (Prednisone Tab) 40 mg PO 0800 [facility] PRN Reason: Protocol Stop: 06/06/17 08:01 Last Admin: 06/03/17 08:28 Dose: 40 mg Sertraline HCl (Zoloft) 50 mg PO DAILY [facility] Last Admin: 06/03/17 10:14 Dose: 50 mg Spironolactone (Aldactone) 25 mg PO DAILY [facility] Last Admin: 06/03/17 10:13 Dose: 25 mg Warfarin Sodium (Coumadin) 5 mg PO 1800 [facility] PRN Reason: Protocol Last Admin: 06/02/17 17:03 Dose: 5 mg - Labs Labs: 06/03/17 07:30 06/03/17 07:30 PT 24.0 SECONDS (9.4-12.5) H 06/03/17 07:30 INR 2.06 (0.93-1.08) H 06/03/17 07:30 Attending/Attestation - Attestation I have personally seen and examined this patient.: Yes I have fully participated in the care of the patient.: Yes I have reviewed all pertinent clinical information, including history, physical exam and plan: Yes Notes (Text): I have seen and examined the patient at bedside. Agree with the above note with the following additions/ exceptions: Briefly this is 71 year old female with history of atrial fibrillation on coumadin, CHF with diastolic dysfunction, COPD , non-occlusive CAD, and anxiety who was admitted with cough and dyspnea. She was found to have COPD exacerbation. Patient was treated with NEB/IV steroid and antibiotics. She has responded well. Her Hypoxia is improved. She is sating fine on room air. Patient Echo on 05/30/17 showed EF 55%. Continue oral lasix. Continue coumadin. Her INR is therapeutic. She has been participating in physical therapy. Upon discharge patient will follow up with Dr Parker. Dr Shonda Rodriguez
[2017-06-03] MEDS: Digoxin 250 mcg (0.25 mg) Tab PO SCH (14:12)
[2017-06-03] MEDS ORDERED: POLYETHYLENE GLYCOL 3350 17 GM/Dose PACKET PO PRN (15:16)
[2017-06-04] MEDS: Albuterol-Ipratrop 3 mg / 0.5 (3 ml) UD IH SCH ×5 (05:00→20:25)
[2017-06-04] MEDS: Pantoprazole 40 mg EC Tab PO SCH (05:50)
[2017-06-04 05:52] LABS: BASO # 0.01 K/mm3 (0.0-2.0); BASO % 0.1 % (0.0-3.0); EOS # 0.1 (0.0-0.7); EOS % 0.8 % (1.5-5.0); GRAN # 6.01 (1.4-6.5); GRAN % 63.5 % (50.0-68.0); HEMOGLOBIN 14.2 g/dL (12.0-16.0); LYMPH # 2.6 (1.2-3.4); LYMPH % 27.9 % (22.0-35.0); MEAN CORPUSCULAR HEMOGLOBIN 29.3 pg (25.0-35.0); MEAN CORPUSCULAR HGB CONC 33.3 g/dl (31.0-37.0); MEAN PLATELET VOLUME 8.9 fl (7.0-11.0); MONO # 0.7 (0.1-0.6); MONO % 7.7 % (1.0-6.0); RBC 4.85 10^6/uL (3.5-6.1); RED CELL DISTRIBUTION WIDTH 14.7 % (11.5-14.5); WHITE BLOOD COUNT 9.5 10^3/ul (4.5-11.0)
[2017-06-04 06:37] LABS: ALB/GLOB RATIO 1.3 (1.1-1.8); ALBUMIN 3.4 g/dL (3.0-4.8); ALT/SGPT 66 U/L (7-56); AST/SGOT 43 U/L (14-36); BLOOD UREA NITROGEN 13 mg/dL (7-21); CALCIUM 9.6 mg/dL (8.4-10.5); GFR AFRICAN-AMERICAN > 60; GFR NON-AFRICAN AMERICAN > 60
[2017-06-04] MEDS: Arformoterol 15 mcg/2 ml Inh Sol IH SCH ×2 (07:25→20:25)
[2017-06-04] MEDS: Budesonide 0.5 mg/2 ml Inhal Susp UD IH SCH ×2 (07:25→20:25)
--- NOTE | 2017-06-04 07:55 | CP.PCM.PN ---
Subjective - Date & Time of Evaluation Date of Evaluation: 06/04/17 Time of Evaluation: 06:45 - Subjective Subjective: Seen and examined by me and Dr. Mendez Reason for consultation and follow up:Atrial fibrillation, cardiomyopathy,non obstructive coronary artery disease,atypical chestpain, COPD Denies chest pain, denies shortness of breath, feeling okay Objective - Vital Signs/Intake and Output Vital Signs (last 24 hours): Temp Pulse Resp BP Pulse Ox 98.2 F 65 14 143/82 100 06/03/17 17:34 06/03/17 17:34 06/03/17 17:34 06/03/17 17:34 06/03/17 17:34 - Medications Medications: Current Medications Acetaminophen (Tylenol 325mg Tab) 650 mg PO Q6H PRN PRN Reason: Pain, Mild (1-3) Last Admin: 06/03/17 21:03 Dose: 650 mg Albuterol Sulfate (Albuterol 0.083% Inhal Dede (2.5 Mg/3 Ml) Ud) 2.5 mg INH [id number] PRN PRN Reason: Shortness of Breath Albuterol/Ipratropium (Duoneb 3 Mg/0.5 Mg (3 Ml) Ud) 3 ml IH [id number] [facility] Last Admin: 06/04/17 07:25 Dose: 3 ml Alprazolam (Xanax) 0.5 mg PO TID PRN; Protocol PRN Reason: Anxiety Last Admin: 06/03/17 21:04 Dose: 0.5 mg Arformoterol Tartrate (Brovana) 15 mcg IH [id number] [facility] Last Admin: 06/04/17 07:25 Dose: 15 mcg Atorvastatin Calcium (Lipitor) 10 mg PO DIN [facility] Last Admin: 06/02/17 17:03 Dose: 10 mg Budesonide (Pulmicort Respules) 0.5 mg IH [id number] [facility] Last Admin: 06/04/17 07:25 Dose: 0.5 mg Digoxin (Lanoxin) 0.25 mg PO 1400 [facility] Last Admin: 06/03/17 14:12 Dose: 0.25 mg Diltiazem HCl (Cardizem Cd) 120 mg PO DAILY [facility] Last Admin: 06/03/17 10:13 Dose: 120 mg Furosemide (Lasix) 40 mg PO DAILY [facility] Last Admin: 06/03/17 10:14 Dose: 40 mg Guaifenesin/Dextromethorphan (Robitussin Dm) 10 ml PO TID [facility] Last Admin: 06/03/17 17:18 Dose: 10 ml Hydralazine HCl (Apresoline) 10 mg PO Q6 PRN PRN Reason: hypertension Stop: 06/10/17 08:48 Lisinopril (Zestril) 10 mg PO DAILY [facility] PRN Reason: Protocol Pantoprazole Sodium (Protonix Ec Tab) 40 mg PO 0600 [facility] Last Admin: 06/04/17 05:50 Dose: 40 mg Polyethylene Glycol (Miralax) 17 gm PO BID PRN PRN Reason: Constipation Last Admin: 06/03/17 17:19 Dose: 17 gm Prednisone (Prednisone Tab) 40 mg PO 0800 [facility] PRN Reason: Protocol Stop: 06/06/17 08:01 Last Admin: 06/03/17 08:28 Dose: 40 mg Sertraline HCl (Zoloft) 50 mg PO DAILY [facility] Last Admin: 06/03/17 10:14 Dose: 50 mg Spironolactone (Aldactone) 25 mg PO DAILY [facility] Last Admin: 06/03/17 10:13 Dose: 25 mg Warfarin Sodium (Coumadin) 5 mg PO 1800 [facility] PRN Reason: Protocol Last Admin: 06/03/17 17:17 Dose: 5 mg - Labs Labs: 06/04/17 05:20 06/04/17 05:20 PT 24.0 SECONDS (9.4-12.5) H 06/03/17 07:30 INR 2.06 (0.93-1.08) H 06/03/17 07:30 - Constitutional Appears: Well, No Acute Distress - Head Exam Head Exam: NORMAL INSPECTION, NORMOCEPHALIC - Eye Exam Eye Exam: Normal appearance Pupil Exam: NORMAL ACCOMODATION - ENT Exam ENT Exam: Mucous Membranes Moist, Normal Exam - Neck Exam Neck Exam: Normal Inspection - Respiratory Exam Respiratory Exam: Clear to Ausculation Bilateral - Cardiovascular Exam Cardiovascular Exam: REGULAR RHYTHM, +S1, +S2 - GI/Abdominal Exam GI & Abdominal Exam: Soft, Normal Bowel Sounds - Extremities Exam Extremities Exam: Full ROM, Normal Capillary Refill - Neurological Exam Neurological Exam: Alert, Awake, Oriented x3 - Psychiatric Exam Psychiatric exam: Normal Affect, Normal Mood - Skin Skin Exam: Dry, Normal Color, Warm Assessment and Plan - Assessment and Plan (Free Text) Assessment: Impression: Chronic obstructive pulmonary disease exacerbation, chronic atrial fibrillation, on coumadin, hypertension, hyperlipidemia, cardiomyopathy, ex tobacco abuse. Plan: Plan: Elevated Blood Pressure yesterday, Increased Lisinopril 10 mg daily Today BP improved SBP 140's Continue Cardizem, digoxin, Aldactone and Lasix as ordered K+ 4.2 Continue current plan of care Stable, Will follow up Plan and treatment reviewed with Dr. Mendez
[2017-06-04] MEDS: diltiaZEM 120 mg/24 Hours CD Cap PO SCH ×2 (10:10→20:48)
[2017-06-04] MEDS: guaiFENesin DM 200 mg-20 mg/10 ml UD PO SCH ×3 (10:12→18:00)
[2017-06-04] MEDS: Digoxin 250 mcg (0.25 mg) Tab PO SCH (13:22)
[2017-06-05] MEDS: Albuterol-Ipratrop 3 mg / 0.5 (3 ml) UD IH SCH ×6 (04:30→21:15)
[2017-06-05] MEDS: Pantoprazole 40 mg EC Tab PO SCH (05:18)
--- NOTE | 2017-06-05 07:08 | CP.PCM.PN ---
Subjective - Date & Time of Evaluation Date of Evaluation: 06/05/17 Time of Evaluation: 06:40 - Subjective Subjective: Seen and examined by me and Dr. Blake Reason for consultation and follow up:Atrial fibrillation, cardiomyopathy,non obstructive coronary artery disease,atypical chestpain, COPD Lying in bed, sleeping but easily awaken,Denies chest pain, denies shortness of breath, feeling okay Objective - Vital Signs/Intake and Output Vital Signs (last 24 hours): Temp Pulse Resp BP Pulse Ox 98.7 F 75 18 148/81 94 L 06/04/17 17:37 06/04/17 20:48 06/04/17 17:37 06/04/17 20:48 06/04/17 17:37 - Medications Medications: Current Medications Acetaminophen (Tylenol 325mg Tab) 650 mg PO Q6H PRN PRN Reason: Pain, Mild (1-3) Last Admin: 06/04/17 19:38 Dose: 650 mg Albuterol Sulfate (Albuterol 0.083% Inhal Dede (2.5 Mg/3 Ml) Ud) 2.5 mg INH [id number] PRN PRN Reason: Shortness of Breath Albuterol/Ipratropium (Duoneb 3 Mg/0.5 Mg (3 Ml) Ud) 3 ml IH [id number] [facility] Last Admin: 06/05/17 04:30 Dose: Not Given Alprazolam (Xanax) 0.5 mg PO TID PRN; Protocol PRN Reason: Anxiety Last Admin: 06/04/17 21:49 Dose: 0.5 mg Arformoterol Tartrate (Brovana) 15 mcg IH [id number] [facility] Last Admin: 06/04/17 20:25 Dose: 15 mcg Atorvastatin Calcium (Lipitor) 10 mg PO DIN [facility] Last Admin: 06/02/17 17:03 Dose: 10 mg Budesonide (Pulmicort Respules) 0.5 mg IH [id number] [facility] Last Admin: 06/04/17 20:25 Dose: 0.5 mg Digoxin (Lanoxin) 0.25 mg PO 1400 [facility] Last Admin: 06/04/17 13:22 Dose: 0.25 mg Diltiazem HCl (Cardizem Cd) 120 mg PO 2000 [facility] Last Admin: 06/04/17 20:48 Dose: 120 mg Furosemide (Lasix) 40 mg PO DAILY [facility] Last Admin: 06/04/17 10:11 Dose: 40 mg Guaifenesin/Dextromethorphan (Robitussin Dm) 10 ml PO TID [facility] Last Admin: 06/04/17 18:00 Dose: 10 ml Hydralazine HCl (Apresoline) 10 mg PO Q6 PRN PRN Reason: hypertension Stop: 06/10/17 08:48 Last Admin: 06/04/17 07:55 Dose: 10 mg Lisinopril (Zestril) 10 mg PO DAILY [facility] PRN Reason: Protocol Last Admin: 06/04/17 10:11 Dose: 10 mg Pantoprazole Sodium (Protonix Ec Tab) 40 mg PO 0600 [facility] Last Admin: 06/05/17 05:18 Dose: 40 mg Polyethylene Glycol (Miralax) 17 gm PO BID PRN PRN Reason: Constipation Last Admin: 06/03/17 17:19 Dose: 17 gm Prednisone (Prednisone Tab) 40 mg PO 0800 [facility] PRN Reason: Protocol Stop: 06/06/17 08:01 Last Admin: 06/04/17 07:54 Dose: 40 mg Sertraline HCl (Zoloft) 50 mg PO DAILY [facility] Last Admin: 06/04/17 10:11 Dose: 50 mg Spironolactone (Aldactone) 25 mg PO DAILY [facility] Last Admin: 06/04/17 10:10 Dose: 25 mg Warfarin Sodium (Coumadin) 5 mg PO 1800 [facility] PRN Reason: Protocol Last Admin: 06/04/17 17:59 Dose: 5 mg - Labs Labs: 06/04/17 05:20 06/04/17 05:20 PT 24.0 SECONDS (9.4-12.5) H 06/03/17 07:30 INR 2.06 (0.93-1.08) H 06/03/17 07:30 - Constitutional Appears: No Acute Distress - Head Exam Head Exam: NORMAL INSPECTION - Eye Exam Eye Exam: Normal appearance Pupil Exam: NORMAL ACCOMODATION - ENT Exam ENT Exam: Mucous Membranes Moist - Neck Exam Neck Exam: Normal Inspection - Respiratory Exam Respiratory Exam: Decreased Breath Sounds, Clear to Ausculation Bilateral, NORMAL BREATHING PATTERN - Cardiovascular Exam Cardiovascular Exam: REGULAR RHYTHM, +S1, +S2 - GI/Abdominal Exam GI & Abdominal Exam: Soft, Normal Bowel Sounds - Extremities Exam Extremities Exam: Normal Capillary Refill, Normal Inspection - Neurological Exam Neurological Exam: Alert, Awake, Oriented x3 - Psychiatric Exam Psychiatric exam: Normal Affect, Normal Mood - Skin Skin Exam: Dry, Intact, Normal Color, Warm Assessment and Plan - Assessment and Plan (Free Text) Assessment: Impression: Hypertension, Atrial fibrillation on coumadin cardiomyopathy,non obstructive coronary artery disease,atypical chestpain, COPD Plan: Stable cardiac standpoint INR therapeutic, continue Coumadin 5mg OD Continue current medications-Cardizem CD 120 mg OD,Lisinopril 10 mg OD,Lasix 40 mg OD, Digoxin 0.25 mg OD Potassium level Within normal limits continue present plan of care Will follow up Plan and treatment reviewed with Dr. Blake
[2017-06-05 07:26] LABS: BASO # 0.01 K/mm3 (0.0-2.0); BASO % 0.1 % (0.0-3.0); EOS # 0.1 (0.0-0.7); EOS % 0.8 % (1.5-5.0); GRAN # 6.75 (1.4-6.5); GRAN % 62.5 % (50.0-68.0); HEMOGLOBIN 14.3 g/dL (12.0-16.0); LYMPH # 2.9 (1.2-3.4); LYMPH % 27.1 % (22.0-35.0); MEAN CORPUSCULAR HEMOGLOBIN 29.1 pg (25.0-35.0); MEAN CORPUSCULAR HGB CONC 33.1 g/dl (31.0-37.0); MONO % 9.5 % (1.0-6.0); RBC 4.91 10^6/uL (3.5-6.1); RED CELL DISTRIBUTION WIDTH 14.6 % (11.5-14.5); WHITE BLOOD COUNT 10.8 10^3/ul (4.5-11.0)
[2017-06-05] MEDS: Arformoterol 15 mcg/2 ml Inh Sol IH SCH ×2 (07:27→21:15)
[2017-06-05] MEDS: Budesonide 0.5 mg/2 ml Inhal Susp UD IH SCH ×2 (07:27→21:15)
[2017-06-05 08:00] LABS: ALB/GLOB RATIO 1.5 (1.1-1.8); ALBUMIN 3.5 g/dL (3.0-4.8); ALT/SGPT 60 U/L (7-56); AST/SGOT 34 U/L (14-36); BLOOD UREA NITROGEN 15 mg/dL (7-21); CALCIUM 9.6 mg/dL (8.4-10.5); GFR AFRICAN-AMERICAN > 60; GFR NON-AFRICAN AMERICAN > 60
[2017-06-05] MEDS: guaiFENesin DM 200 mg-20 mg/10 ml UD PO SCH ×3 (11:26→17:43)
[2017-06-05] MEDS: Digoxin 250 mcg (0.25 mg) Tab PO SCH (14:16)
[2017-06-05 14:23] VITALS: PULSE 84
--- NOTE | 2017-06-05 15:07 | CP.PCM.PN ---
Subjective - Date & Time of Evaluation Date of Evaluation: 06/05/17 Time of Evaluation: 10:00 - Subjective Subjective: Elizabeth Giang DO PGY1 - IM Progress Note Patient seen and examined at bedside. No acute events overnight. Patient reports shakiness and anxiety, and some weakness, which is improving with the physical therapy. Requesting her usual Xanax for her anxiety. She denies any chest pain, shortness of breath, fever, chills, nausea, vomiting, diarrhea, constipation, abdominal pain, headache, dizziness. Patient is worried about going home, as she cares for her grand daughter, and is worried about still being too weak. Objective - Vital Signs/Intake and Output Vital Signs (last 24 hours): Temp Pulse Resp BP Pulse Ox 98 F 83 16 138/76 95 06/05/17 10:14 06/05/17 13:41 06/05/17 10:14 06/05/17 11:27 06/05/17 10:14 - Medications Medications: Current Medications Acetaminophen (Tylenol 325mg Tab) 650 mg PO Q6H PRN PRN Reason: Pain, Mild (1-3) Last Admin: 06/05/17 11:33 Dose: 650 mg Albuterol Sulfate (Albuterol 0.083% Inhal Dede (2.5 Mg/3 Ml) Ud) 2.5 mg INH [id number] PRN PRN Reason: Shortness of Breath Albuterol/Ipratropium (Duoneb 3 Mg/0.5 Mg (3 Ml) Ud) 3 ml IH [id number] [facility] Last Admin: 06/05/17 11:36 Dose: 3 ml Alprazolam (Xanax) 0.5 mg PO TID PRN; Protocol PRN Reason: Anxiety Last Admin: 06/05/17 14:20 Dose: 0.5 mg Arformoterol Tartrate (Brovana) 15 mcg IH [id number] [facility] Last Admin: 06/05/17 07:27 Dose: 15 mcg Atorvastatin Calcium (Lipitor) 10 mg PO DIN [facility] Last Admin: 06/02/17 17:03 Dose: 10 mg Budesonide (Pulmicort Respules) 0.5 mg IH [id number] [facility] Last Admin: 06/05/17 07:27 Dose: 0.5 mg Digoxin (Lanoxin) 0.25 mg PO 1400 [facility] Last Admin: 06/05/17 14:16 Dose: 0.25 mg Diltiazem HCl (Cardizem Cd) 120 mg PO 2000 [facility] Last Admin: 06/04/17 20:48 Dose: 120 mg Furosemide (Lasix) 40 mg PO DAILY [facility] Last Admin: 06/05/17 11:24 Dose: 40 mg Guaifenesin/Dextromethorphan (Robitussin Dm) 10 ml PO TID [facility] Last Admin: 06/05/17 14:18 Dose: 10 ml Hydralazine HCl (Apresoline) 10 mg PO Q6 PRN PRN Reason: hypertension Stop: 06/10/17 08:48 Last Admin: 06/04/17 07:55 Dose: 10 mg Lisinopril (Zestril) 10 mg PO DAILY [facility] PRN Reason: Protocol Last Admin: 06/05/17 11:27 Dose: 10 mg Pantoprazole Sodium (Protonix Ec Tab) 40 mg PO 0600 [facility] Last Admin: 06/05/17 05:18 Dose: 40 mg Polyethylene Glycol (Miralax) 17 gm PO BID PRN PRN Reason: Constipation Last Admin: 06/03/17 17:19 Dose: 17 gm Prednisone (Prednisone Tab) 40 mg PO 0800 [facility] PRN Reason: Protocol Stop: 06/06/17 08:01 Last Admin: 06/05/17 11:25 Dose: 40 mg Sertraline HCl (Zoloft) 50 mg PO DAILY [facility] Last Admin: 06/05/17 11:28 Dose: 50 mg Spironolactone (Aldactone) 25 mg PO DAILY [facility] Last Admin: 06/05/17 11:23 Dose: 25 mg Warfarin Sodium (Coumadin) 5 mg PO 1800 [facility] PRN Reason: Protocol Last Admin: 06/04/17 17:59 Dose: 5 mg - Labs Labs: 06/05/17 06:45 06/05/17 06:45 PT 24.0 SECONDS (9.4-12.5) H 06/03/17 07:30 INR 2.06 (0.93-1.08) H 06/03/17 07:30 - Additional Findings Additional findings: - Constitutional Appears: Non-toxic, No Acute Distress - Head Exam Head Exam: ATRAUMATIC, NORMOCEPHALIC - Eye Exam Eye Exam: EOMI, Normal appearance Pupil Exam: NORMAL ACCOMODATION, PERRL - ENT Exam ENT Exam: Mucous Membranes Moist, Normal Exam - Neck Exam Neck Exam: Full ROM, Normal Inspection. absent: Lymphadenopathy, Tenderness - Respiratory Exam Respiratory Exam: Clear to Ausculation Bilateral, NORMAL BREATHING PATTERN. - Cardiovascular Exam Cardiovascular Exam: Irregular Rhythm, +S1, +S2. - GI/Abdominal Exam GI & Abdominal Exam: Soft, Normal Bowel Sounds. absent: Distended, Firm, Guarding, Tenderness, Rebound - Extremities Exam Extremities Exam: Normal Capillary Refill, Normal Inspection. absent: Calf Tenderness, Joint Swelling, Pedal Edema, Tenderness - Back Exam Back Exam: NORMAL INSPECTION - Neurological Exam Neurological Exam: Alert, Awake, CN II-XII Intact, Oriented x3 - Psychiatric Exam Psychiatric exam: Anxious, normal affect - Skin Skin Exam: Dry, Intact, Normal Color, Warm Assessment and Plan - Assessment and Plan (Free Text) Assessment: 71 year old female with a past medical history significant for Atrial Fibrillation on Coumadin, COPD, CHF, asthma, CAD, and anxiety who initially presented for right sided angina, now admitted to the TCU for further rehabilitation. Plan: 1. Chest Pain -Resolved, no longer experiencing chest pain; ACS ruled out -Cardiology consulted, all recommendations appreciated 2. COPD Exacerbation -Chest X-Ray showed increased interstitial markings -Continue Duonebs Q4 scheduled and nebulized Albuterol Q6 PRN -Continue Brovana and Pulmicort -Continue Prednisone 40mg PO for 4 days -Continue supplemental oxygen via [place] PRN -Continue Robitussin PRN for cough and Tylenol PRN for fever 3. CHF -Echo showed LVEF of 59.3% and normal LV function -Continue Lasix 40mg PO daily -Continue Spironolactone -Continue Lisinopril 10mg -BP has been elevated in the mornings, before medication adminstration; switched Cardizem to be administered in the evening -Continue PT/OT 4. Atrial Fibrillation -Continue Digoxin and Cardizem -Continue Coumadin 5. History of HLD -Lipid panel within normal limits -Lipitor held today as LFT's elevated -Will monitor with daily CMP's 6. History of Anxiety -Continue Zoloft and Xanax GI Prophylaxis: Protonix DVT Prophylaxis: Coumadin and SCD's Patient seen and case discussed with attending, Dr. Warner
[2017-06-05] MEDS: diltiaZEM 120 mg/24 Hours CD Cap PO SCH (20:48)
[2017-06-06] MEDS: Albuterol-Ipratrop 3 mg / 0.5 (3 ml) UD IH SCH ×4 (01:00→11:30)
[2017-06-06] MEDS: Pantoprazole 40 mg EC Tab PO SCH (05:39)
[2017-06-06 06:44] VITALS: BP 139/80; PULSE 82; RESP 18; TEMP 98.3; O2SAT 98
[2017-06-06 06:49] LABS: BASO # 0.01 K/mm3 (0.0-2.0); BASO % 0.1 % (0.0-3.0); EOS % 0.2 % (1.5-5.0); GRAN # 9.58 (1.4-6.5); GRAN % 71.8 % (50.0-68.0); HEMOGLOBIN 14.3 g/dL (12.0-16.0); LYMPH # 2.5 (1.2-3.4); LYMPH % 18.7 % (22.0-35.0); MEAN CELL VOLUME 87.7 fl (80.0-105.0); MEAN CORPUSCULAR HEMOGLOBIN 29.7 pg (25.0-35.0); MEAN CORPUSCULAR HGB CONC 33.9 g/dl (31.0-37.0); MEAN PLATELET VOLUME 8.7 fl (7.0-11.0); MONO # 1.2 (0.1-0.6); MONO % 9.2 % (1.0-6.0); RBC 4.81 10^6/uL (3.5-6.1); RED CELL DISTRIBUTION WIDTH 14.5 % (11.5-14.5); WHITE BLOOD COUNT 13.3 10^3/ul (4.5-11.0)
[2017-06-06 06:58] LABS: ALB/GLOB RATIO 1.4 (1.1-1.8); ALBUMIN 3.5 g/dL (3.0-4.8); ALT/SGPT 66 U/L (7-56); AST/SGOT 35 U/L (14-36); BLOOD UREA NITROGEN 16 mg/dL (7-21); CALCIUM 9.8 mg/dL (8.4-10.5); GFR AFRICAN-AMERICAN > 60; GFR NON-AFRICAN AMERICAN > 60
[2017-06-06] MEDS: Budesonide 0.5 mg/2 ml Inhal Susp UD IH SCH (07:11)
[2017-06-06] MEDS: Arformoterol 15 mcg/2 ml Inh Sol IH SCH (07:11)
--- NOTE | 2017-06-06 10:05 | CP.PCM.DIS ---
<Elizabeth Giang - Last Filed: 06/06/17 17:51> Provider - Provider Date of Admission: 05/31/17 19:15 Attending physician: Fabio Walters MD Primary care physician: Andrea Casas MD Time Spent in preparation of Discharge (in minutes): 45 Diagnosis - Discharge Diagnosis (1) Chest pain Status: Acute (2) Anxiety Status: Chronic (3) COPD (chronic obstructive pulmonary disease) Status: Chronic Hospital Course - Lab Results Lab Results: Most Recent Lab Values WBC 13.3 10^3/ul (4.5-11.0) H D 06/06/17 06:30 RBC 4.81 10^6/uL (3.5-6.1) 06/06/17 06:30 Hgb 14.3 g/dL (12.0-16.0) 06/06/17 06:30 Hct 42.2 % (36.0-48.0) 06/06/17 06:30 MCV 87.7 fl (80.0-105.0) 06/06/17 06:30 MCH 29.7 pg (25.0-35.0) 06/06/17 06:30 MCHC 33.9 g/dl (31.0-37.0) 06/06/17 06:30 RDW 14.5 % (11.5-14.5) 06/06/17 06:30 Plt Count 298 10^3/uL (120.0-450.0) 06/06/17 06:30 MPV 8.7 fl (7.0-11.0) 06/06/17 06:30 Gran % 71.8 % (50.0-68.0) H 06/06/17 06:30 Lymph % (Auto) 18.7 % (22.0-35.0) L 06/06/17 06:30 Rhea % (Auto) 9.2 % (1.0-6.0) H 06/06/17 06:30 Eos % (Auto) 0.2 % (1.5-5.0) L 06/06/17 06:30 Baso % (Auto) 0.1 % (0.0-3.0) 06/06/17 06:30 Gran # 9.58 (1.4-6.5) H 06/06/17 06:30 Lymph # (Auto) 2.5 (1.2-3.4) 06/06/17 06:30 Rhea # (Auto) 1.2 (0.1-0.6) H 06/06/17 06:30 Eos # (Auto) 0.0 (0.0-0.7) 06/06/17 06:30 Baso # (Auto) 0.01 K/mm3 (0.0-2.0) 06/06/17 06:30 PT 24.0 SECONDS (9.4-12.5) H 06/03/17 07:30 INR 2.06 (0.93-1.08) H 06/03/17 07:30 Sodium 132 mmol/L (132-148) 06/06/17 06:30 Potassium 4.3 mmol/L (3.6-5.0) 06/06/17 06:30 Chloride 93 mmol/L (98-107) L 06/06/17 06:30 Carbon Dioxide 32 mmol/L (21-33) 06/06/17 06:30 Anion Gap 12 (10-20) 06/06/17 06:30 BUN 16 mg/dL (7-21) 06/06/17 06:30 Creatinine 0.6 mg/dl (0.7-1.2) L 06/06/17 06:30 Est GFR ( Amer) > 60 06/06/17 06:30 Est GFR (Non-Af Amer) > 60 06/06/17 06:30 Random Glucose 83 mg/dL (70-110) 06/06/17 06:30 Calcium 9.8 mg/dL (8.4-10.5) 06/06/17 06:30 Total Bilirubin 0.3 mg/dL (0.2-1.3) 06/06/17 06:30 AST 35 U/L (14-36) 06/06/17 06:30 ALT 66 U/L (7-56) H 06/06/17 06:30 Alkaline Phosphatase 50 U/L (38-126) 06/06/17 06:30 Total Protein 5.9 g/dL (5.8-8.3) 06/06/17 06:30 Albumin 3.5 g/dL (3.0-4.8) 06/06/17 06:30 Globulin 2.5 gm/dL 06/06/17 06:30 Albumin/Globulin Ratio 1.4 (1.1-1.8) 06/06/17 06:30 - Hospital Course Hospital Course: 71 year old female with a past medical history significant for atrial fibrillation on Coumadin, COPD, CHF, asthma, CAD, and anxiety who initially presented for right sided chest pain, concerning for angina. Patient was found to have COPD exacerbation and was treated with breathing treatments, IV steroids , and cough suppressants. She was also treated for her baseline CHF, atrial fibrillation, HTN, and anxiety. Patient was eventually switched to PO steroids, which she completed in the TCU. Patient was transferred to the TCU for further physical rehabilitation. Today, patient feels well overall, and requesting to go home. She denies any chest pain, shortness of breath, cough, fever, chills, nausea, vomiting, diarrhea, constipation, abdominal pain. Patient was instructed to continue all her previous medications as prescribed. She was also given instructions for follow up. All questions were answered to her satisfaction, and she was discharged to home. Discharge Exam - Head Exam Head Exam: NORMAL INSPECTION - Eye Exam Eye Exam: EOMI, Normal appearance, PERRL - ENT Exam ENT Exam: Mucous Membranes Moist - Respiratory Exam Respiratory Exam: Clear to PA & Lateral, NORMAL BREATHING PATTERN - Cardiovascular Exam Cardiovascular Exam: REGULAR RHYTHM, RRR, +S1, +S2 - GI/Abdominal Exam GI & Abdominal Exam: Normal Bowel Sounds, Soft. absent: Tenderness - Extremities Exam Extremities exam: full ROM, normal inspection - Neurological Exam Neurological exam: Alert, CN II-XII Intact, Oriented x3 - Psychiatric Exam Psychiatric exam: Normal Affect, Normal Mood - Skin Skin Exam: Dry, Intact, Normal Color Discharge Plan - Discharge Medications Prescriptions: Albuterol HFA [Ventolin HFA 90 mcg/actuation (8 g)] 2 puff IH [id number] PRN #1 inhaler PRN Reason: Shortness Of Breath Arformoterol [Brovana] 15 mcg IH [id number] #1 inhaler Atorvastatin [Lipitor] 10 mg PO DIN #30 tab Digoxin [Lanoxin] 0.25 mg PO 1400 #30 tab [id number] CD [Cardizem CD] 120 mg PO 2000 #30 cap Furosemide [Lasix] 40 mg PO DAILY #30 tab Lisinopril [Zestril] 10 mg PO DAILY #30 tab Sertraline [Zoloft] 50 mg PO DAILY #30 tab Spironolactone [Aldactone] 25 mg PO DAILY #30 tab Warfarin [Coumadin] 5 mg PO 1800 #7 tab - Follow Up Plan Condition: GOOD Disposition: HOME/ ROUTINE Instructions: Preventing Falls in the Older Adult, Anxiety, Adult (DC), Chest Pain (DC), Exacerbation of COPD (DC) Additional Instructions: Follow up with primary care provider, Dr. Casas, within 3-5 days Continue to take Cardizem at night, instead of in the mornings Continue all other medications as previously prescribed For any new or worsening concerns, contact your PCP immediately or return to the ER Referrals: Andrea Casas MD [Primary Care Provider] - <Fabio Walters - Last Filed: 06/07/17 08:35> Provider - Provider Date of Admission: 05/31/17 19:15 Attending physician: Fabio Walters MD Primary care physician: Andrea Casas MD Hospital Course - Lab Results Lab Results: Most Recent Lab Values WBC 13.3 10^3/ul (4.5-11.0) H D 06/06/17 06:30 RBC 4.81 10^6/uL (3.5-6.1) 06/06/17 06:30 Hgb 14.3 g/dL (12.0-16.0) 06/06/17 06:30 Hct 42.2 % (36.0-48.0) 06/06/17 06:30 MCV 87.7 fl (80.0-105.0) 06/06/17 06:30 MCH 29.7 pg (25.0-35.0) 06/06/17 06:30 MCHC 33.9 g/dl (31.0-37.0) 06/06/17 06:30 RDW 14.5 % (11.5-14.5) 06/06/17 06:30 Plt Count 298 10^3/uL (120.0-450.0) 06/06/17 06:30 MPV 8.7 fl (7.0-11.0) 06/06/17 06:30 Gran % 71.8 % (50.0-68.0) H 06/06/17 06:30 Lymph % (Auto) 18.7 % (22.0-35.0) L 06/06/17 06:30 Rhea % (Auto) 9.2 % (1.0-6.0) H 06/06/17 06:30 Eos % (Auto) 0.2 % (1.5-5.0) L 06/06/17 06:30 Baso % (Auto) 0.1 % (0.0-3.0) 06/06/17 06:30 Gran # 9.58 (1.4-6.5) H 06/06/17 06:30 Lymph # (Auto) 2.5 (1.2-3.4) 06/06/17 06:30 Rhea # (Auto) 1.2 (0.1-0.6) H 06/06/17 06:30 Eos # (Auto) 0.0 (0.0-0.7) 06/06/17 06:30 Baso # (Auto) 0.01 K/mm3 (0.0-2.0) 06/06/17 06:30 PT 24.0 SECONDS (9.4-12.5) H 06/03/17 07:30 INR 2.06 (0.93-1.08) H 06/03/17 07:30 Sodium 132 mmol/L (132-148) 06/06/17 06:30 Potassium 4.3 mmol/L (3.6-5.0) 06/06/17 06:30 Chloride 93 mmol/L (98-107) L 06/06/17 06:30 Carbon Dioxide 32 mmol/L (21-33) 06/06/17 06:30 Anion Gap 12 (10-20) 06/06/17 06:30 BUN 16 mg/dL (7-21) 06/06/17 06:30 Creatinine 0.6 mg/dl (0.7-1.2) L 06/06/17 06:30 Est GFR ( Amer) > 60 06/06/17 06:30 Est GFR (Non-Af Amer) > 60 06/06/17 06:30 Random Glucose 83 mg/dL (70-110) 06/06/17 06:30 Calcium 9.8 mg/dL (8.4-10.5) 06/06/17 06:30 Total Bilirubin 0.3 mg/dL (0.2-1.3) 06/06/17 06:30 AST 35 U/L (14-36) 06/06/17 06:30 ALT 66 U/L (7-56) H 06/06/17 06:30 Alkaline Phosphatase 50 U/L (38-126) 06/06/17 06:30 Total Protein 5.9 g/dL (5.8-8.3) 06/06/17 06:30 Albumin 3.5 g/dL (3.0-4.8) 06/06/17 06:30 Globulin 2.5 gm/dL 06/06/17 06:30 Albumin/Globulin Ratio 1.4 (1.1-1.8) 06/06/17 06:30 Attending/Attestation - Attestation I have personally seen and examined this patient.: Yes I have fully participated in the care of the patient.: Yes I have reviewed all pertinent clinical information, including history, physical exam and plan: Yes Notes (Text): 06/06/17 71 year old female with past medical history of afib on coumadin, COPD, and CAD who presented with COPD exacerbation. Symptoms improved with steroids which were tapered. Slight leukocytosis noted today likely secondary to recent steroids. Patient was in TCU for rehab therapy. Overall patient's symptoms have improved. Patient is discharged home to follow up with his pmd. Fabio Walters MD Hospitalist.
[2017-06-06] MEDS: guaiFENesin DM 200 mg-20 mg/10 ml UD PO SCH (10:07)
--- NOTE | 2017-06-06 17:45 | PN ---
DATE: 06/06/2017 LOCATION: The patient in room 321, bed 1. REASON FOR CONSULTATION AND FOLLOWUP: Atrial fibrillation, cardiomyopathy, nonobstructive coronary artery disease, atypical chest pain, COPD, deconditioning. SUBJECTIVE: The patient is lying flat in bed without any chest pain, shortness of breath or palpitation. PHYSICAL EXAMINATION: VITAL SIGNS: Blood pressure 139/80, respirations 18, pulse 82, temperature 98.3. HEENT: Head is normocephalic. Eyes: Pupils normal. Conjunctivae normal. Nose and throat are normal. NECK: JVP low. Carotids equal. THORAX: AP diameter normal. LUNGS: No rales. CARDIOVASCULAR: S1 and S2. Systolic murmur. No rub. ABDOMEN: Soft. No tenderness. No organomegaly. EXTREMITIES: No clubbing, no cyanosis. LABORATORY DATA: WBC is 13.3, hemoglobin 14.3, hematocrit 42.2. Sodium 133, potassium 4.3, BUN 16, creatinine 0.6, calcium 9.8, bilirubin 0.3. AST 35, ALT 66, total protein 5.9, albumin 3.5. The patient's previous cardiac workup has been mentioned in our consult of 06/01/2017. DIAGNOSES: Hypertension, atrial fibrillation, cardiomyopathy, nonobstructive coronary artery disease, atypical chest pain, chronic obstructive pulmonary disease. PLAN: The patient's blood pressure is stable now with medication and prothrombin time was 24 and INR 2.06 on 06/03/2017. The patient is on spironolactone 25 daily, diltiazem CD 120 p.o. daily, warfarin 5 mg daily, digoxin 0.25 p.o. daily, Verapamil 40 p.o. daily, atorvastatin 10 mg daily, Protonix 40 daily, lisinopril 10 daily, Zoloft 50 daily, Xanax 0.5 mg p.o. t.i.d. p.r.n. If the patient's blood pressure is stable, we will continue physical therapy. We will follow with you. Mak Blake MD
== END 2017-06-06 13:39 | disposition home health service (06) | DRG 191 ==
LOC: TRCU 19:15
PROVIDERS: ADMIT Internal Medicine; ATTEND Internal Medicine
PROC: F07Z9ZZ Gait Training/Functional Ambulation Treatment (ICD-10-PCS; principal; 2017-06-02)
PROC: F07L6YZ Therapeutic Exercise Treatment of Musculoskeletal System - Lower Back / Lower Extremity using Other Equipment (ICD-10-PCS; 2017-06-02)
PROC: F08Z2ZZ Grooming/Personal Hygiene Treatment (ICD-10-PCS; 2017-06-03)
PROC: F08Z0FZ Bathing/Showering Techniques Treatment using Assistive, Adaptive, Supportive or Protective Equipment (ICD-10-PCS; 2017-06-04)
DX: J44.1 Chronic obstructive pulmonary disease with (acute) exacerbation (principal); I50.30 Unspecified diastolic (congestive) heart failure; I42.9 Cardiomyopathy, unspecified; I48.2 Chronic atrial fibrillation; I08.3 Combined rheumatic disorders of mitral, aortic and tricuspid valves; I11.0 Hypertensive heart disease with heart failure; I25.119 Atherosclerotic heart disease of native coronary artery with unspecified angina pectoris; F17.200 Nicotine dependence, unspecified, uncomplicated; E78.5 Hyperlipidemia, unspecified; F41.9 Anxiety disorder, unspecified; Z79.01 Long term (current) use of anticoagulants

== ENCOUNTER 2017-08-07 15:50 | Emergency (ER) | payer MEDICARE, OTHER ==
[2017-08-07 15:50] VITALS: PULSE 84
[2017-08-07 16:41] VITALS: BMI 26.3
[2017-08-07 16:45] VITALS: RESP 16
[2017-08-07 17:53] LABS: HEMOGLOBIN 15.3 g/dL (12.0-16.0); MEAN CELL VOLUME 84.6 fl (80.0-105.0); MEAN CORPUSCULAR HEMOGLOBIN 30.5 pg (25.0-35.0); MEAN CORPUSCULAR HGB CONC 36.1 g/dl (31.0-37.0); MEAN PLATELET VOLUME 8.3 fl (7.0-11.0); RBC 5.01 10^6/uL (3.5-6.1); RED CELL DISTRIBUTION WIDTH 13.7 % (11.5-14.5); WHITE BLOOD COUNT 8.9 10^3/ul (4.5-11.0)
[2017-08-07] MEDS ORDERED: Albuterol-Ipratrop 3 mg / 0.5 (3 ml) UD IH STA (17:56)
[2017-08-07 18:04] LABS: ALB/GLOB RATIO 1.7 (1.1-1.8); ALBUMIN 4.2 g/dL (3.0-4.8); ALT/SGPT 33 U/L (7-56); AST/SGOT 34 U/L (14-36); BLOOD UREA NITROGEN 7 mg/dL (7-21); CALCIUM 9.7 mg/dL (8.4-10.5); GFR NON-AFRICAN AMERICAN > 60
--- NOTE | 2017-08-07 18:06 | ED PDOC ---
Arrival/HPI - General Chief Complaint: GI Problem Time Seen by Provider: 08/07/17 16:41 Historian: Patient - History of Present Illness Narrative History of Present Illness (Text): 08/07/17 18:03 Pt is a 71 year old female, whose past medical history includes COPD, CHF, and atrial fibrillation, who presents to the Emergency department brought in by EMS complaining of a cough and vomiting for the past 3 days. Patient states she has felt nauseous and vomited last night. she sates that she doesn't feel well and wants to know why. Patient reports associated cough and diffuse body aches. Patient denies any fever, chills, nausea, vomiting, diarrhea, urinary symptoms, back pain, neck pain, headache, dizziness, or any other complaints. Time/Duration: 24 hours Symptom Onset: Gradual Symptom Course: Improving (cough), Resolved (nausea and vomiting) Quality: Unable to Describe Severity Level: 1 Activities at Onset: Rest Context: Home Past Medical History - Provider Review Nursing Documentation Reviewed: Yes - Travel History Have you recently traveled outside [place] w/in the past 3 mons?: No - Infectious Disease Hx of Infectious Diseases: None - Cardiac Hx Cardiac Disorders: Yes Hx Atrial Fibrillation: Yes Hx Congestive Heart Failure: Yes Hx Hypertension: Yes - Pulmonary Hx Chronic Obstructive Pulmonary Disease (COPD): Yes - Neurological Hx Neurological Disorder: Yes Hx Dizziness: Yes (and lightheaded since june 2015) Other/Comment: headaches that radiate to back of neck on and off x 15 yrs, "charley horses" to feet ankles legs and c/o hands "lock up" since june 2015 - HEENT Hx HEENT Disorder: No - Renal Hx Renal Disorder: No - Endocrine/Metabolic Hx Endocrine Disorders: No - Hematological/Oncological Hx Blood Disorders: No - Integumentary Hx Dermatological Disorder: No - Musculoskeletal/Rheumatological Hx Falls: Yes - Gastrointestinal Hx Gastrointestinal Disorders: Yes - Genitourinary/Gynecological Hx Genitourinary Disorders: No - Psychiatric Hx Psychophysiologic Disorder: Yes Hx Anxiety: Yes Hx Bipolar Disorder: No Hx Depression: Yes Hx Emotional Abuse: No Hx Hallucinations: No Hx Panic Disorder: No Hx Post Traumatic Stress Disorder: No Hx Psychosis: No Hx Physical Abuse: No Hx Schizophrenia: No Hx Sexual Abuse: No Hx Substance Use: No - Surgical History Hx Cardiac Catheterization: Yes (X1) Other/Comment: robotic left lower wedge resection and lymphaderectomy 06/2015, polypectomy - Anesthesia Hx Anesthesia: Yes Hx Anesthesia Reactions: No Hx Malignant Hyperthermia: No - Suicidal Assessment Feels Threatened In Home Enviroment: No Family/Social History - Physician Review Nursing Documentation Reviewed: Yes Family/Social History: Unknown Family HX Smoking Status: Current Some Days Smoker Hx Alcohol Use: No Hx Substance Use: No Allergies/Home Meds Allergies/Adverse Reactions: Allergies azithromycin [From Zithromax] Adverse Reaction (Intermediate, Verified 06/03/17 05:05) RASH "JUST DOES NOT WORK" Review of Systems - Review of Systems Constitutional: Normal Eyes: Normal ENT: Normal Respiratory: Normal Cardiovascular: Normal Gastrointestinal: Normal Genitourinary Female: Normal Musculoskeletal: Normal Skin: Normal Neurological: Normal Endocrine: Normal Hemo/Lymphatic: Normal Psychiatric: Normal Physical Exam Vital Signs Reviewed: Yes Vital Signs Temp Pulse Resp BP Pulse Ox 08/07/17 20:05 97 F L 82 16 112/72 99 08/07/17 18:58 84 16 118/62 99 08/07/17 16:41 97.8 F 89 16 95 08/07/17 16:33 97.8 F 80 24 121/64 95 Temperature: Afebrile Blood Pressure: Normal Pulse: Regular Respiratory Rate: Normal Appearance: Positive for: Well-Appearing, Non-Toxic, Comfortable Pain Distress: None Mental Status: Positive for: Alert and Oriented X 3 - Systems Exam Head: Present: Atraumatic, Normocephalic Pupils: Present: PERRL Extroacular Muscles: Present: EOMI Conjunctiva: Present: Normal Mouth: Present: Moist Mucous Membranes Pharnyx: Present: Normal Neck: Present: Normal Range of Motion Respiratory/Chest: Present: Clear to Auscultation, Good Air Exchange, Rales. No : Respiratory Distress, Accessory Muscle Use Cardiovascular: Present: Regular Rate and Rhythm, Normal S1, S2. No: Murmurs Abdomen: Present: Normal Bowel Sounds. No: Tenderness, Distention, Peritoneal Signs Back: Present: Normal Inspection Upper Extremity: Present: Normal Inspection. No: Cyanosis, Edema Lower Extremity: Present: Normal Inspection, NORMAL PULSES, Normal ROM, Tenderness (anterior tib b/l with pittting edema 1+), Neurovascularly Intact. No: Edema, Christina's Sign, Swelling, Erythema, Temperature Abnormalties Neurological: Present: GCS=15, CN II-XII Intact, Speech Normal Skin: Present: Warm, Dry, Normal Color. No: Rashes Psychiatric: Present: Alert, Oriented x 3, Normal Insight, Normal Concentration Medical Decision Making ED Course and Treatment: 08/07/17 18:04 Impression Pt is a 71 year old female, whose past medical history includes COPD, CHF, and atrial fibrillation, who presents to the Emergency department brought in by EMS complaining of a cough and vomiting for the past 3 days. Says she had water and oatmeal 2 x today and is keeping it down. Pt has hypersensitivity b/l LE on palpation which she states is baseline, otherwise the rest of the exam benign Plan Labs, Chest X-ray DuoNeb Tx assess and dispo 08/07/17 20:08 Pt ventilating well after tx Chest X-ray unremarkable discussed following up with PMD in next few days VSS and d/c home - Lab Interpretations Lab Results: 08/07/17 17:43 08/07/17 17:43 Lab Results 08/07/17 18:54: Urine Color Yellow, Urine Appearance Clear, Urine pH 6.0, Ur Specific [place] 1.015, Urine Protein Trace H, Urine Glucose (UA) Negative, Urine Ketones Negative, Urine Blood Trace-intact H, Urine Nitrate Negative, Urine Bilirubin Negative, Urine Urobilinogen 1.0 H, Ur Leukocyte Esterase Large H, Urine RBC 2 - 5, Urine WBC 25 - 30, Ur Epithelial Cells 6 - 8, Amorphous Sediment Few, Urine Bacteria Many, Coarse Granular Casts Trace H, Urine Other Uyeast 08/07/17 17:43: Sodium 130 L, Potassium 4.0, Chloride 92 L, Carbon Dioxide 28, Anion Gap 14, BUN 7, Creatinine 0.5 L, Est GFR ( Amer) > 60, Est GFR (Non -Af Amer) > 60, Random Glucose 115 H, Calcium 9.7, Total Bilirubin 0.6, AST 34, ALT 33, Alkaline Phosphatase 57, Total Protein 6.7, Albumin 4.2, Globulin 2.5, Albumin/Globulin Ratio 1.7 08/07/17 17:43: WBC 8.9 D, RBC 5.01, Hgb 15.3, Hct 42.4, MCV 84.6 D, MCH 30.5 , MCHC 36.1, RDW 13.7, Plt Count 325, MPV 8.3 - RAD Interpretation Radiology Orders: 08/07/17 17:29 CXR [CHEST TWO VIEWS (PA/LAT)] [RAD] Stat - EKG Interpretation Interpreted by ED Physician: Yes (Atrial fibrillation; Rate 76; this is not a new finding ) - Medication Orders Current Medication Orders: Discontinued Medications Albuterol/Ipratropium (Duoneb 3 Mg/0.5 Mg (3 Ml) Ud) 3 ml IH STAT STA Stop: 08/07/17 17:57 Last Admin: 08/07/17 18:47 Dose: 3 ml Disposition/Present on Arrival - Present on Arrival Any Indicators Present on Arrival: Yes History of DVT/PE: No History of Uncontrolled Diabetes: No Urinary Catheter: No History of Decub. Ulcer: No History Surgical Site Infection Following: None - Disposition Have Diagnosis and Disposition been Completed?: Yes Diagnosis: Seasonal allergic reaction Disposition: HOME/ ROUTINE Disposition Time: 20:01 Patient Plan: Discharge Condition: GOOD Discharge Instructions (ExitCare): Seasonal Allergies in Adults Additional Instructions: Alecia, thank you for letting us take care of you today. Your provider was ANGELA Zulugaa. You were treated for seasonal allergies and cough. The emergency medical care you received today was directed at your acute symptoms. If you were prescribed any medication, please fill it and take as directed. It may take several days for your symptoms to resolve. Return to the Emergency Department if your symptoms worsen, do not improve, or if you have any other problems. Please contact your doctor or call one of the physicians/clinics you have been referred to that are listed on the Patient Visit Information form that is included in your discharge packet. Bring any paperwork you were given at discharge with you along with any medications you are taking to your follow up visit. Our treatment cannot replace ongoing medical care by a primary care provider (PCP) outside of the emergency department. Thank you for allowing the [facility] team to be part of your care today. If you had an X-Ray or CT scan: A Radiologist will review the ED reading if any change in treatment is needed we will contact you. If you had a blood, urine, or wound culture: It will take several days for the results, if any change in treatment is needed we will contact you. Referrals: Andrea Casas MD [Primary Care Provider] - Follow up with primary Forms: [employer] (Chinese)
[2017-08-07 19:32] LABS: URINE BILIRUBIN NEGATIVE (NEGATIVE); URINE BLOOD TRACE-INTACT (NEGATIVE); URINE GLUCOSE (UA) NEGATIVE (NEGATIVE); URINE LEUKOCYTE ESTERASE LARGE Leu/uL (NEGATIVE); URINE PROTEIN TRACE mg/dL (<30 mg/dL)
[2017-08-07 20:07] LABS: URINE APPEARANCE CLEAR (CLEAR); URINE COLOR YELLOW (YELLOW)
[2017-08-07 20:11] LABS: URINE BACTERIA MANY (NEG); URINE WBC 25 - 30 /hpf (0-6)
[2017-08-07 20:12] LABS: URINE AMORPHOUS SEDIMENT FEW; URINE COARSE GRANULAR CAST TRACE /hpf (0-2)
[2017-08-07 20:59] VITALS: O2SAT 99
[2017-08-07 21:00] VITALS: BP 112/72; PULSE 82; TEMP 97
--- NOTE | 2017-08-08 08:18 | RAD ---
HISTORY: wheezing COMPARISON: Comparison chest 05/30/2017 TECHNIQUE: Chest PA and lateral FINDINGS: LUNGS: No active pulmonary disease. PLEURA: No significant pleural effusion identified. No pneumothorax apparent. CARDIOVASCULAR: Normal. OSSEOUS STRUCTURES: Mild multilevel degenerative spondylosis . Minor dextroscoliosis mid thoracic spine region. VISUALIZED UPPER ABDOMEN: Normal. OTHER FINDINGS: None. IMPRESSION: No active disease.
--- NOTE | 2017-08-08 22:01 | CARD ---
APPROVED REPORT EKG Measurement Heart [id number] <Conclusion> Atrial fibrillation Low voltage QRS ST & T wave abnormality, consider lateral ischemia or digitalis effect Abnormal ECG
== END 2017-08-07 20:05 | disposition home or self-care (01) ==
LOC: ED 15:50
DX: J30.2 Other seasonal allergic rhinitis (principal); I48.91 Unspecified atrial fibrillation; I50.9 Heart failure, unspecified; F17.200 Nicotine dependence, unspecified, uncomplicated; I10 Essential (primary) hypertension

== ENCOUNTER 2017-09-15 18:54 | Inpatient (IN) | payer MEDICARE, OTHER ==
[2017-09-15] MEDS ORDERED: Albuterol-Ipratrop 3 mg / 0.5 (3 ml) UD IH STA ×2 (19:58→20:34)
[2017-09-15 20:04] LABS: BASO # 0.02 K/mm3 (0.0-2.0); BASO % 0.2 % (0.0-3.0); EOS # 0.1 (0.0-0.7); EOS % 0.9 % (1.5-5.0); GRAN # 7.34 (1.4-6.5); GRAN % 79.6 % (50.0-68.0); LYMPH % 10.5 % (22.0-35.0); MEAN CELL VOLUME 85.8 fl (80.0-105.0); MEAN CORPUSCULAR HEMOGLOBIN 30.2 pg (25.0-35.0); MEAN CORPUSCULAR HGB CONC 35.2 g/dl (31.0-37.0); MEAN PLATELET VOLUME 8.8 fl (7.0-11.0); MONO # 0.8 (0.1-0.6); MONO % 8.8 % (1.0-6.0); RBC 4.64 10^6/uL (3.5-6.1); RED CELL DISTRIBUTION WIDTH 14.4 % (11.5-14.5); WHITE BLOOD COUNT 9.2 10^3/ul (4.5-11.0)
[2017-09-15 20:15] LABS: ALB/GLOB RATIO 1.6 (1.1-1.8); ALBUMIN 4.3 g/dL (3.0-4.8); ALT/SGPT 31 U/L (7-56); AST/SGOT 27 U/L (14-36); BLOOD UREA NITROGEN 9 mg/dL (7-21); CALCIUM 9.5 mg/dL (8.4-10.5); GFR NON-AFRICAN AMERICAN > 60
[2017-09-15 20:26] LABS: B-TYPE NATRIURETIC PEPTIDE 1380 pg/mL (0-450); TROPONIN I < 0.01 ng/mL
--- NOTE | 2017-09-15 20:56 | CP.PCM.HP ---
<Yeimy Nova - Last Filed: 09/16/17 03:48> History of Present Illness - History of Present Illness History of Present Illness: History and Physical - Hospitalist Service CC: "I feel short of breath" HPI: Patient is a 72 year old female with past medical history of atrial fibrillation on coumadin, COPD, diastolic CHF, anxiety, HTN presents to [facility] for worsening shortness of breath. Patient states that for the past week her breathing has been getting worse. She decided to come to the hospital today because she couldn't take it anymore. She was using her breathing nebulizer at home, but reports that it is not working. Denies any recent changes to her medications. Patient also admits to having a cough that is occasionally productive. Sputum is yellowish/green. She denies dizziness, changes in vision, nausea/vomiting, fevers/chills, chest pain, palpitations, abdominal pain, changes in bowel habits, urinary symptoms. Per ED documentation, patient was complaining of left sided chest pain that radiated to the shoulder. During interview, patient denied having any chest pain. ED Course: Duonebs, Lasix 20mg x 1, Solumedrol 125mg x 1 PMD: Dr Casas Pharmacy: [facility] Allergies: Azithromycin Medical History: Atrial fibrillation on coumadin, COPD, Diastolic Congestive Heart Failure, Anxiety, HTN Medications: Diltiazem 120mg, Coumadin 5mg, Aldactone 25mg, Zoloft 50mg, Lisinopril 10mg, Lasix 40mg,, Digoxin 0.25mg, Lipitor 10mg, Brovana 15mcg Q12H Surgical History: Robotic assisted Left VATS with wedge resection and lymph node biopsy 06/2015, polypectomy Social History: Smokes 3-4 cigs a day, denies alcohol or drug use; recieved her flu shot this year Family History: Non-contributory Present on Admission - Present on Admission Any Indicators Present on Admission: No Past Patient History - Infectious Disease Hx of Infectious Diseases: None - Past Medical History & Family History Past Medical History?: Yes - Past Social History Smoking Status: Current Some Days Smoker - CARDIAC Hx Cardiac Disorders: Yes Hx Atrial Fibrillation: Yes Hx Congestive Heart Failure: Yes Hx Hypertension: Yes - PULMONARY Hx Chronic Obstructive Pulmonary Disease (COPD): Yes - NEUROLOGICAL Hx Neurological Disorder: Yes Hx Dizziness: Yes (and lightheaded since june 2015) Other/Comment: headaches that radiate to back of neck on and off x 15 yrs, "charley horses" to feet ankles legs and c/o hands "lock up" since june 2015 - HEENT Hx HEENT Problems: No - RENAL Hx Chronic Kidney Disease: No - ENDOCRINE/METABOLIC Hx Endocrine Disorders: No - HEMATOLOGICAL/ONCOLOGICAL Hx Blood Disorders: No - INTEGUMENTARY Hx Dermatological Problems: No - MUSCULOSKELETAL/RHEUMATOLOGICAL Hx Falls: Yes - GASTROINTESTINAL Hx Gastrointestinal Disorders: Yes - GENITOURINARY/GYNECOLOGICAL Hx Genitourinary Disorders: No - PSYCHIATRIC Hx Psychophysiologic Disorder: Yes Hx Anxiety: Yes Hx Bipolar Disorder: No Hx Depression: Yes Hx Emotional Abuse: No Hx Hallucinations: No Hx Panic Symptoms: No Hx Post Traumatic Stress Disorder: No Hx Psychosis: No Hx Physical Abuse: No Hx Schizophrenia: No Hx Sexual Abuse: No Hx Substance Use: No - SURGICAL HISTORY Hx Cardiac Catheterization: Yes (X1) Other/Comment: robotic left lower wedge resection and lymphaderectomy 06/2015, polypectomy - ANESTHESIA Hx Anesthesia: Yes Hx Anesthesia Reactions: No Hx Malignant Hyperthermia: No Meds Allergies/Adverse Reactions: Allergies Allergy/AdvReac Type Severity Reaction Status Date / Time azithromycin [From Zithromax] AdvReac Intermediate RASH Verified 09/15/17 19:03 Physical Exam - Constitutional Appears: Non-toxic, No Acute Distress, Chronically Ill Additional comments: Patient is speaking in complete sentences - Head Exam Head Exam: ATRAUMATIC, NORMAL INSPECTION, NORMOCEPHALIC - Eye Exam Eye Exam: EOMI, Normal appearance Pupil Exam: NORMAL ACCOMODATION - ENT Exam ENT Exam: Mucous Membranes Moist - Neck Exam Neck exam: Positive for: Full Rom - Respiratory Exam Respiratory Exam: Decreased Breath Sounds, Rales, Wheezes (Expiratory wheezing) , NORMAL BREATHING PATTERN. absent: Rhonchi - Cardiovascular Exam Cardiovascular Exam: Irregular Rhythm, +S1, +S2 - GI/Abdominal Exam GI & Abdominal Exam: Normal Bowel Sounds, Soft. absent: Guarding, Rebound, Rigid, Tenderness - Rectal Exam Rectal Exam: Deferred - Extremities Exam Extremities exam: Positive for: normal capillary refill, pedal pulses present. Negative for: calf tenderness Additional comments: +1 pitting edema bilaterally - Back Exam Back exam: NORMAL INSPECTION - Neurological Exam Neurological exam: Alert, Oriented x3 - Psychiatric Exam Psychiatric exam: Normal Affect, Normal Mood - Skin Skin Exam: Dry, Normal Color, Warm Results - Vital Signs Recent Vital Signs: Last Vital Signs Temp 98.2 F 09/15/17 18:55 Pulse 102 H 09/15/17 18:55 Resp 18 09/15/17 19:23 BP 154/86 H 09/15/17 20:43 Pulse Ox 97 09/15/17 18:55 - Labs Result Diagrams: 09/15/17 19:50 09/15/17 19:50 Labs: Laboratory Results - last 24 hr 09/15/17 09/15/17 19:50 19:50 WBC 9.2 RBC 4.64 Hgb 14.0 Hct 39.8 MCV 85.8 MCH 30.2 MCHC 35.2 RDW 14.4 Plt Count 247 MPV 8.8 Gran % 79.6 H Lymph % (Auto) 10.5 L [place] % (Auto) 8.8 H Eos % (Auto) 0.9 L Baso % (Auto) 0.2 Gran # 7.34 H Lymph # (Auto) 1.0 L [place] # (Auto) 0.8 H Eos # (Auto) 0.1 Baso # (Auto) 0.02 Sodium 133 Potassium 4.0 Chloride 94 L Carbon Dioxide 27 Anion Gap 16 BUN 9 Creatinine 0.6 L Est GFR ( Amer) > 60 Est GFR (Non-Af Amer) > 60 Random Glucose 120 H Calcium 9.5 Magnesium 1.4 L Total Bilirubin 0.6 AST 27 ALT 31 Alkaline Phosphatase 58 Lactate Dehydrogenase 487 Total Creatine Kinase 152 Troponin I < 0.01 NT-Pro-B Natriuret Pep 1380 H Total Protein 7.1 Albumin 4.3 Globulin 2.7 Albumin/Globulin Ratio 1.6 Assessment & Plan - Assessment and Plan (Free Text) Assessment: A/P: Patient is a 72 year old female with past medical history of COPD, diastolic CHF, Chronic Afib on coumadin, HTN, Anxiety who presented to [facility] for worsening shortness of breath. Shortness of breath 2/2 Acute COPD exacerbation and Congestive Heart Failure -Stable, afebrile -Will monitor on telemetry -CXR : appears to have hilar congestion, awaiting official read -BNP 1380 on admission -Xopenex Q6H NORA, Xopenex Q2H prn shortness of breath -Solumedrol 40mg Q8H IVP -Continue Brovana Q12H -Continue Lasix 20mg IVP daily -Robitussin 4ml Q4H prn cough -Antibiotics: Levaquin 500mg daily -Last Echo 05/2017 showed mild to moderate concentric ventricular hypertrophy, LVEF 55-60%, mild to moderate (see full report) -Supplemental O2 as needed -Strict I/Os, daily weights Chest pain r/o acute coronary syndrome -Initial troponin negative -Trend troponin q8H x 2 -EKG showed afib HR 95, possible anterior infarct, age undeterminant, no ST-T changes appreciated -Normal stress test in 2017 -Cardiology on consult, help appreciated Supratherapeutic INR -INR on admission was 8.0 -Will hold coumadin at this time -Per uptodate, if INR is between 5 and 9 and patient does not have clinically significant bleeding, warfarin is held temporarily with or without administration of a small dose of oral vitamin K (1 to 2.5mg) -Vitamin K 2.5mg PO x 1 dose ordered -Monitor Daily INR level Chronic Atrial Fibrillation -Currently rate controlled -Patient on digoxin and coumadin at home -Monitor Daily INR level -Continue Digoxin 0.25mg PO daily, Cardizem 120mg PO daily -Cardiology on consult, help appreciated Hypomagnesemia -Magnesium 1.4 on admission -Repleted with Mag sulfate 2gm x 1 dose -Continue to monitor History of Hypertension -Continue Lisinopril 10mg PO daily History of Hyperlipidemia -Continue Lipitor 10mg PO daily History of Anxiety/Depression -Continue Zoloft 50mg PO daily GI/DVT ppx: -Protonix 40mg IVP daily -SCDs Plan discussed with Dr Raimundo Nova DO PGY-1 <Abigail Eubanks - Last Filed: 09/16/17 06:49> Results - Vital Signs Recent Vital Signs: Last Vital Signs Temp 97.8 F 09/16/17 00:01 Pulse 100 H 09/16/17 02:00 Resp 18 09/16/17 00:01 BP 118/78 09/16/17 00:01 Pulse Ox 96 09/16/17 00:01 - Labs Result Diagrams: 09/15/17 19:50 09/15/17 19:50 Labs: Laboratory Results - last 24 hr 09/15/17 09/15/17 22:10 22:10 PT 95.9 H INR 8.00 H* APTT 79.1 H Digoxin 0.7 L Attending/Attestation - Attestation I have personally seen and examined this patient.: Yes I have fully participated in the care of the patient.: Yes I have reviewed all pertinent clinical information: Yes Notes (Text): 09/16/17 06:39 Patient seen,discussed with the Resident. IMP:CHF COPD PLAN:as ordered.
[2017-09-15] MEDS ORDERED: Magnesium Sulfate 2 gm/50 ml 2 GM/50 ML BAG IVPB ONE (21:20)
[2017-09-15] MEDS ORDERED: Ipratropium 0.02% Inhal Soln (0.5 mg/2.5 ml) UD IH PRN (21:57)
[2017-09-15] MEDS ORDERED: Ipratropium 0.02% Inhal Soln (0.5 mg/2.5 ml) UD IH SCH (22:00)
[2017-09-15] MEDS: MethylPREDNISolone 40 mg Vial IVP SCH (22:05)
--- NOTE | 2017-09-15 22:10 | ED PDOC ---
Arrival/HPI - General Chief Complaint: Shortness Of Breath Time Seen by Provider: 09/15/17 19:28 Historian: Patient - History of Present Illness Narrative History of Present Illness (Text): 09/15/17 22:07 72 year old female, whose past medical history includes COPD, CHF, and Atrial Fibrillation, presents to the emergency department complaining of shortness of breath and left chest pain radiating to the shoulder since this morning. Patient denies any fevers, chills, abdominal pain, nausea, vomiting, diarrhea, back pain, neck pain, headache, dizziness, or any other complaint. Time/Duration: Other (this morning) Symptom Onset: Gradual Symptom Course: Unchanged Activities at Onset: Light Context: Home Past Medical History - Provider Review Nursing Documentation Reviewed: Yes - Infectious Disease Hx of Infectious Diseases: None - Reproductive Menopause: Yes - Cardiac Hx Cardiac Disorders: Yes Hx Atrial Fibrillation: Yes Hx Congestive Heart Failure: Yes Hx Hypertension: Yes - Pulmonary Hx Chronic Obstructive Pulmonary Disease (COPD): Yes - Neurological Hx Neurological Disorder: Yes Hx Dizziness: Yes (and lightheaded since june 2015) Other/Comment: headaches that radiate to back of neck on and off x 15 yrs, "charley horses" to feet ankles legs and c/o hands "lock up" since june 2015 - HEENT Hx HEENT Disorder: No - Renal Hx Renal Disorder: No - Endocrine/Metabolic Hx Endocrine Disorders: No - Hematological/Oncological Hx Blood Disorders: No - Integumentary Hx Dermatological Disorder: No - Musculoskeletal/Rheumatological Hx Falls: Yes - Gastrointestinal Hx Gastrointestinal Disorders: Yes - Genitourinary/Gynecological Hx Genitourinary Disorders: No - Psychiatric Hx Psychophysiologic Disorder: Yes Hx Anxiety: Yes Hx Bipolar Disorder: No Hx Depression: Yes Hx Emotional Abuse: No Hx Hallucinations: No Hx Panic Disorder: No Hx Post Traumatic Stress Disorder: No Hx Psychosis: No Hx Physical Abuse: No Hx Schizophrenia: No Hx Sexual Abuse: No Hx Substance Use: No - Surgical History Hx Cardiac Catheterization: Yes (X1) Other/Comment: robotic left lower wedge resection and lymphaderectomy 06/2015, polypectomy - Anesthesia Hx Anesthesia: Yes Hx Anesthesia Reactions: No Hx Malignant Hyperthermia: No - Suicidal Assessment Feels Threatened In Home Enviroment: No Family/Social History - Physician Review Nursing Documentation Reviewed: Yes Family/Social History: Unknown Family HX Smoking Status: Current Some Days Smoker Hx Alcohol Use: No Hx Substance Use: No Allergies/Home Meds Allergies/Adverse Reactions: Allergies azithromycin [From Zithromax] Adverse Reaction (Intermediate, Verified 09/15/17 19:03) RASH "JUST DOES NOT WORK" Review of Systems - Physician Review All systems were reviewed & negative as marked: Yes - Review of Systems Constitutional: Normal Eyes: Normal ENT: Normal Respiratory: SOB. absent: Cough Cardiovascular: Chest Pain (left chest pain radiating to the shoulder) Gastrointestinal: Normal. absent: Abdominal Pain, Diarrhea, Nausea, Vomiting Genitourinary Female: Normal. absent: Dysuria, Frequency Musculoskeletal: Normal Skin: Normal. absent: Rash Neurological: Normal. absent: Headache, Dizziness Endocrine: Normal Hemo/Lymphatic: Normal Psychiatric: Normal Physical Exam Vital Signs Reviewed: Yes Vital Signs Temp Pulse Resp BP Pulse Ox 09/15/17 22:37 91 H 18 142/64 100 09/15/17 20:55 86 18 146/74 99 09/15/17 20:43 154/86 H 09/15/17 19:23 18 09/15/17 18:55 98.2 F 102 H 22 153/60 H 97 Temperature: Afebrile Blood Pressure: Normal Pulse: Tachycardic Respiratory Rate: Normal Appearance: Positive for: Well-Appearing, Non-Toxic, Comfortable Pain Distress: None Mental Status: Positive for: Alert and Oriented X 3 - Systems Exam Head: Present: Atraumatic, Normocephalic Pupils: Present: PERRL Extroacular Muscles: Present: EOMI Conjunctiva: Present: Normal Mouth: Present: Moist Mucous Membranes Neck: Present: Normal Range of Motion. No: Meningeal Signs, MIDLINE TENDERNESS , Paraspinal Tenderness Respiratory/Chest: Present: Rales (rales at the bases). No: Respiratory Distress, Accessory Muscle Use Cardiovascular: Present: Normal S1, S2, Irregular Rhythm, Other (Chronic A-fib) . No: Murmurs Abdomen: No: Tenderness, Distention, Peritoneal Signs Back: Present: Normal Inspection. No: CVA Tenderness, Midline Tenderness, Paraspinal Tenderness Upper Extremity: Present: Normal Inspection. No: Cyanosis, Edema Lower Extremity: Present: Normal Inspection. No: Edema, CALF TENDERNESS Neurological: Present: GCS=15, CN II-XII Intact, Speech Normal Skin: Present: Warm, Dry, Normal Color. No: Rashes Psychiatric: Present: Alert, Oriented x 3, Normal Insight, Normal Concentration Medical Decision Making ED Course and Treatment: 09/15/17 22:12 Impression: 72 year old female presents to the emergency department complaining of sob and chest pain radiating to the shoulder. 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 - Lab Interpretations Microbiology Results: Microbiology Results 09/15/17 19:50 Blood-Venous Blood Culture - Preliminary NO GROWTH AFTER 4 DAYS 09/15/17 19:36 Blood-Venous Blood Culture - Preliminary NO GROWTH AFTER 4 DAYS Lab Results: 09/17/17 06:44 09/17/17 06:44 Lab Results 09/17/17 09:30: NT-Pro-B Natriuret Pep 1230 H 09/17/17 07:16: POC Glucose (mg/dL) 104 09/17/17 06:44: TSH 3rd Generation 0.49 09/17/17 06:44: Hemoglobin A1c 5.7 09/17/17 06:44: PT 15.5 H, INR 1.34 H, APTT 34.7 09/17/17 06:44: Sodium 129 L, Potassium 4.8, Chloride 90 L, Carbon Dioxide 30, Anion Gap 13, BUN 12, Creatinine 0.5 L, Est GFR ( Amer) > 60, Est GFR ( Non-Af Amer) > 60, Random Glucose 113 H, Calcium 9.5, Phosphorus 3.9, Magnesium 1.8, Total Bilirubin 0.5, AST 29, ALT 31, Alkaline Phosphatase 57, Total Protein 6.5, Albumin 4.0, Globulin 2.5, Albumin/Globulin Ratio 1.6, Triglycerides 57, Cholesterol 139, LDL Cholesterol Direct 35, HDL Cholesterol 85 H 09/17/17 06:44: WBC 11.2 H D, RBC 4.59, Hgb 13.4, Hct 39.6, MCV 86.3, MCH 29.2, MCHC 33.8, RDW 14.4, Plt Count 286, MPV 9.0, Gran % 85.8 H, Lymph % (Auto) 8.8 L , Dod[place]idge % (Auto) 5.4, Eos % (Auto) 0.0 L, Baso % (Auto) 0.0, Gran # 9.62 H, Lymph # (Auto) 1.0 L, [place]idge # (Auto) 0.6, Eos # (Auto) 0.0, Baso # (Auto) 0.00 09/16/17 12:21: Troponin I < 0.01 09/16/17 06:30: Hemoglobin A1c 5.7 09/16/17 06:30: PT 84.1 H, INR 7.03 H*, APTT 79.4 H 09/16/17 06:30: Sodium 134, Potassium 4.4, Chloride 95 L, Carbon Dioxide 28, Anion Gap 15, BUN 11, Creatinine 0.5 L, Est GFR ( Amer) > 60, Est GFR ( Non-Af Amer) > 60, Random Glucose 143 H, Calcium 9.8, Phosphorus 3.3, Magnesium 2.0, Total Bilirubin 0.4, AST 28, ALT 29, Alkaline Phosphatase 74, Troponin I < 0.01, Total Protein 7.1, Albumin 4.3, Globulin 2.9, Albumin/Globulin Ratio 1.5 09/16/17 06:30: WBC 8.4, RBC 4.59, Hgb 13.6, Hct 39.5, MCV 86.1, MCH 29.6, MCHC 34.4, RDW 14.7 H, Plt Count 264, MPV 9.0, Gran % 93.8 H, Lymph % (Auto) 5.4 L, Dod[place]idge % (Auto) 0.8 L, Eos % (Auto) 0.0 L, Baso % (Auto) 0.0, Gran # 7.85 H, Lymph # (Auto) 0.5 L, [place] # (Auto) 0.1, Eos # (Auto) 0.0, Baso # (Auto) 0.00, Neutrophils % (Manual) 88 H, Band Neutrophils % 6 H, Lymphocytes % (Manual) 4 L , Monocytes % (Manual) 1, Eosinophils % (Manual) 1, Platelet Evaluation Normal 09/15/17 22:10: Digoxin 0.7 L 09/15/17 22:10: PT 95.9 H, INR 8.00 H*, APTT 79.1 H 09/15/17 19:50: Sodium 133, Potassium 4.0, Chloride 94 L, Carbon Dioxide 27, Anion Gap 16, BUN 9, Creatinine 0.6 L, Est GFR ( Amer) > 60, Est GFR (Non -Af Amer) > 60, Random Glucose 120 H, Calcium 9.5, Magnesium 1.4 L, Total Bilirubin 0.6, AST 27, ALT 31, Alkaline Phosphatase 58, Lactate Dehydrogenase 487, Total Creatine Kinase 152, Troponin I < 0.01, NT-Pro-B Natriuret Pep 1380 H , Total Protein 7.1, Albumin 4.3, Globulin 2.7, Albumin/Globulin Ratio 1.6 09/15/17 19:50: WBC 9.2, RBC 4.64, Hgb 14.0, Hct 39.8, MCV 85.8, MCH 30.2, MCHC 35.2, RDW 14.4, Plt Count 247, MPV 8.8, Gran % 79.6 H, Lymph % (Auto) 10.5 L, Dod[place]idge % (Auto) 8.8 H, Eos % (Auto) 0.9 L, Baso % (Auto) 0.2, Gran # 7.34 H, Lymph # (Auto) 1.0 L, Dod[place]idge # (Auto) 0.8 H, Eos # (Auto) 0.1, Baso # (Auto) 0.02 - RAD Interpretation Radiology Orders: 09/15/17 19:28 CHEST PORTABLE [RAD] Stat - EKG Interpretation EKG Interpretation (Text): 09/16/17 04:37 a fib rate [address] s changes - Medication Orders Current Medication Orders: Discontinued Medications Acetaminophen (Tylenol 325mg Tab) 650 mg PO Q6H PRN PRN Reason: Headache Last Admin: 09/18/17 20:55 Dose: 650 mg MAR Pain/Vitals Document 09/18/17 20:55 ROCIO (Rec: 09/18/17 20:54 ROCIO [id number]) Pain Reassessment Is This A Pain ReAssessment? No Sleep Is patient sleeping during reassessment? 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 Albuterol/Ipratropium (Duoneb 3 Mg/0.5 Mg (3 Ml) Ud) 3 ml IH STAT STA Stop: 09/15/17 19:59 Last Admin: 09/15/17 20:15 Dose: 3 ml Albuterol/Ipratropium (Duoneb 3 Mg/0.5 Mg (3 Ml) Ud) 3 ml IH STAT STA Stop: 09/15/17 20:35 Last Admin: 09/15/17 20:41 Dose: 3 ml Alprazolam (Xanax) 0.5 mg PO TID PRN; Protocol PRN Reason: Anxiety Last Admin: 09/19/17 14:45 Dose: 0.5 mg Behavioural Document 09/19/17 14:45 Y (Rec: 09/19/17 14:46 [id number] Maintenance Maintenance Dose Yes Re-Assess: Reassess Psych Meds Document 09/19/17 15:45 Y (Rec: 09/19/17 16:14 [id number] Reassess Psych Med Effective Atorvastatin Calcium (Lipitor) 10 mg PO DIN [facility] Last Admin: 09/18/17 17:17 Dose: 10 mg Benzocaine/Menthol (Cepacol Sore Throat) 1 david MT Q2H PRN PRN Reason: Sore Throat Last Admin: 09/17/17 21:20 Dose: 1 david Cyclobenzaprine HCl (Flexeril) 5 mg PO STAT STA Stop: 09/17/17 00:43 Last Admin: 09/17/17 00:52 Dose: 5 mg Digoxin (Lanoxin) 0.25 mg PO 1400 [facility] Last Admin: 09/19/17 14:46 Dose: 0.25 mg MAR Apical Pulse Rate Document 09/19/17 14:46 Y (Rec: 09/19/17 14:[id number]) Apical Pulse Rate Apical Pulse Rate (60-90 beats/min) 72 Diltiazem HCl (Cardizem Cd) 120 mg PO 2000 [facility] Last Admin: 09/18/17 20:55 Dose: 120 mg MAR Pulse and Blood Pressure Document 09/18/17 20:55 ROCIO (Rec: 09/18/17 20:55 ZARAL [id number]) Pulse Pulse Rate (60-90) 82 Blood Pressure Blood Pressure (100/60-150/90) 128/82 Furosemide (Lasix) 20 mg IVP ONCE ONE Stop: 09/15/17 20:35 Last Admin: 09/15/17 20:43 Dose: 20 mg MAR Blood Pressure Document 09/15/17 20:43 ANNIE (Rec: 09/15/17 20:43 ANNIE [id number]) Blood Pressure Blood Pressure (100/60-150/90) 154/86 IVP Administration Document 09/15/17 20:43 ANNIE (Rec: 09/15/17 20:43 ANNIE [id number]) Charges for Administration # of IVP Administrations 1 Furosemide (Lasix) 20 mg IVP DAILY [facility] Last Admin: 09/16/17 09:35 Dose: 20 mg MAR Blood Pressure Document 09/16/17 09:35 CD (Rec: 09/16/17 09:35 CD [id number]) Blood Pressure Blood Pressure (100/60-150/90) 136/92 IVP Administration Document 09/16/17 09:35 CD (Rec: 09/16/17 09:35 CD [id number]) Charges for Administration # of IVP Administrations 1 Furosemide (Lasix) 40 mg IV ONCE ONE Stop: 09/16/17 15:33 Last Admin: 09/16/17 16:11 Dose: 40 mg eMAR Start Stop Document 09/16/17 16:11 KL (Rec: 09/16/17 16:11 KL [id number]) Intravenous Solution Start Date 09/16/17 Start Time 16:11 MAR Blood Pressure Document 09/16/17 16:11 KL (Rec: 09/16/17 16:11 KL [id number]) Blood Pressure Blood Pressure (100/60-150/90) 135/82 Furosemide (Lasix) 40 mg IV DAILY [facility] Last Admin: 09/19/17 10:01 Dose: 40 mg eMAR Start Stop Document 09/19/17 10:01 Y (Rec: 09/19/17 10:01 [id number] Intravenous Solution Start Date 09/19/17 Start Time 10:01 MAR Blood Pressure Document 09/19/17 10:01 Y (Rec: 09/19/17 10:01 [id number]) Blood Pressure Blood Pressure (100/60-150/90) 162/97 Guaifenesin/Dextromethorphan (Robitussin Dm) 5 ml PO Q4H PRN PRN Reason: Cough Last Admin: 09/19/17 14:45 Dose: 5 ml Magnesium Sulfate (Magnesium Sulfate 2 Gm/50 Ml Water) 2 gm in 50 mls @ 50 mls/ hr IVPB ONCE ONE Stop: 09/15/17 22:19 Last Admin: 09/15/17 22:11 Dose: 50 mls/hr eMAR Start Stop Document 09/15/17 22:11 ANNIE (Rec: 09/15/17 22:11 ANNIE [id number]) Intravenous Solution Start Date 09/15/17 Start Time 22:11 End Date 09/15/17 End time 23:11 Total Infusion Time 60 Levofloxacin/Dextrose (Levaquin 500mg) 500 mg in 100 mls @ 100 mls/hr IVPB DAILY NORA PRN Reason: Protocol Last Admin: 09/16/17 09:33 Dose: 100 mls/hr eMAR Start Stop Document 09/16/17 09:33 CD (Rec: 09/16/17 09:33 CD [id number]) Intravenous Solution Start Date 09/16/17 Start Time 09:33 Levalbuterol HCl (Xopenex) 0.63 mg IH [id number] [facility] Last Admin: 09/17/17 07:30 Dose: 0.63 mg Levalbuterol HCl (Xopenex) 0.63 mg IH Q2H PRN PRN Reason: Shortness of Breath Last Admin: 09/19/17 06:14 Dose: 0.63 mg Levalbuterol HCl (Xopenex) 0.63 mg IH [id number] [facility] Last Admin: 09/19/17 15:18 Dose: 0.63 mg Lidocaine HCl (Xylocaine 2% (Uro-Jet)) 1 ea TOP DAILY [facility] Last Admin: 09/17/17 11:03 Dose: Not Given Non-Admin Reason: Patient Refused Lisinopril (Zestril) 10 mg PO DAILY [facility] Last Admin: 09/19/17 10:02 Dose: 10 mg MAR Pulse and Blood Pressure Document 09/19/17 10:02 YJ (Rec: 09/19/17 10:02 YJ [id number]) Pulse Pulse Rate (60-90) 85 Blood Pressure Blood Pressure (100/60-150/90) 162/97 Lorazepam (Ativan) 1 mg IVP Q6H PRN; Protocol PRN Reason: Anxiety Stop: 09/21/17 23:59 Methylprednisolone (Solu-Medrol) 125 mg IVP ONCE ONE Stop: 09/15/17 20:35 Last Admin: 09/15/17 20:41 Dose: 125 mg IVP Administration Document 09/15/17 20:41 ANNIE (Rec: 09/15/17 20:41 ANNIE [id number]) Charges for Administration # of IVP Administrations 1 Methylprednisolone (Solu-Medrol) 40 mg IVP Q8 [facility] Last Admin: 09/16/17 06:21 Dose: 40 mg IVP Administration Document 09/16/17 06:21 FG (Rec: 09/16/17 06:21 FG [id number]) Charges for Administration # of IVP Administrations 1 Methylprednisolone (Solu-Medrol) 30 mg IVP Q8 [facility] Last Admin: 09/16/17 13:59 Dose: 30 mg IVP Administration Document 09/16/17 13:59 KL (Rec: 09/16/17 13:59 KL [id number] [id number]) Charges for Administration # of IVP Administrations 1 Methylprednisolone (Solu-Medrol) 20 mg IVP Q8 [facility] Last Admin: 09/17/17 06:03 Dose: 20 mg IVP Administration Document 09/17/17 06:03 GC (Rec: 09/17/17 06:03 GC [id number]) Charges for Administration # of IVP Administrations 1 Nicotine (Nicoderm Cq) 1 patch TD STAT STA Stop: 09/16/17 19:41 Last Admin: 09/16/17 20:11 Dose: 1 patch MAR Transdermal Patch Site Document 09/16/17 20:11 GC (Rec: 09/16/17 20:11 GC [id number]) Transdermal Patch Site Transdermal Patch Site Right Shoulder Re-Assess: MAR Transdermal Patch Removal Document 09/17/17 08:11 CD (Rec: 09/17/17 11:03 CD [id number]) Transdermal Patch Removal Removal of Transdermal Patch done? Yes Pantoprazole Sodium (Protonix Inj) 40 mg IVP DAILY [facility] Last Admin: 09/16/17 09:33 Dose: 40 mg IVP Administration Document 09/16/17 09:33 CD (Rec: 09/16/17 09:33 CD [id number]) Charges for Administration # of IVP Administrations 1 Pantoprazole Sodium (Protonix Ec Tab) 40 mg PO 0600 [facility] Last Admin: 09/19/17 06:04 Dose: 40 mg Phytonadione (Vitamin K Tab) 2.5 mg PO ONCE ONE Stop: 09/16/17 23:52 Phytonadione (Vitamin K Tab) 2.5 mg PO ONCE ONE Stop: 09/16/17 05:50 Last Admin: 09/16/17 06:19 Dose: 2.5 mg Phytonadione (Vitamin K Tab) 5 mg PO STAT STA Stop: 09/16/17 15:30 Last Admin: 09/16/17 16:11 Dose: 5 mg Polyethylene Glycol (Miralax) 17 gm PO DAILY [facility] Last Admin: 09/19/17 10:01 Dose: 17 gm Prednisone (Prednisone Tab) 40 mg PO Q12H [facility] Last Admin: 09/17/17 23:38 Dose: 40 mg Prednisone (Prednisone Tab) 40 mg PO DAILY [facility] Last Admin: 09/19/17 10:02 Dose: 40 mg Sertraline HCl (Zoloft) 50 mg PO DAILY [facility] Last Admin: 09/19/17 10:02 Dose: 50 mg Warfarin Sodium (Coumadin) 5 mg PO 1800 NORA PRN Reason: Protocol Stop: 09/17/17 23:59 Last Admin: 09/17/17 17:15 Dose: 5 mg MAR INR Result Document 09/17/17 17:15 MCV (Rec: 09/17/17 17:15 MCV [id number]) INR INR 1.3 Warfarin Sodium (Coumadin) 3 mg PO 1800 NORA PRN Reason: Protocol Warfarin Sodium (Coumadin) 3 mg PO 1800 NORA PRN Reason: Protocol Warfarin Sodium (Coumadin) 5 mg PO 1800 NORA PRN Reason: Protocol Stop: 09/19/17 23:59 Last Admin: 09/18/17 17:18 Dose: 5 mg - Rickiblukas Statement The provider has reviewed the documentation as recorded by the Niraj Antonio All medical record entries made by the Niraj were at my direction and personally dictated by me. I have reviewed the chart and agree that the record accurately reflects my personal performance of the history, physical exam, medical decision making, and the department course for this patient. I have also personally directed, reviewed, and agree with the discharge instructions and disposition. Disposition/Present on Arrival - Present on Arrival Any Indicators Present on Arrival: No History of DVT/PE: No History of Uncontrolled Diabetes: No Urinary Catheter: No History of Decub. Ulcer: No History Surgical Site Infection Following: None - Disposition Have Diagnosis and Disposition been Completed?: Yes Diagnosis: Atrial fibrillation, COPD exacerbation Disposition: HOSPITALIZED Disposition Time: 22:00 Condition: GOOD
[2017-09-15 22:59] LABS: PARTIAL THROMBOPLASTIN TIME 79.1 Seconds (25.1-36.5); PROTHROMBIN TIME 95.9 SECONDS (9.4-12.5)
[2017-09-16 00:27] VITALS: BMI 25.4
[2017-09-16] MEDS: Levalbuterol 0.63 MG/3 ML Inhal Soln UD IH SCH ×4 (02:00→19:35)
[2017-09-16] MEDS: guaiFENesin DM 100 mg-10 mg/5 ml UD PO PRN ×4 (06:19→21:06)
[2017-09-16] MEDS: MethylPREDNISolone 40 mg Vial IVP SCH ×3 (06:21→21:07)
[2017-09-16 07:25] LABS: GRAN # 7.85 (1.4-6.5); GRAN % 93.8 % (50.0-68.0); HEMOGLOBIN 13.6 g/dL (12.0-16.0); LYMPH # 0.5 (1.2-3.4); LYMPH % 5.4 % (22.0-35.0); MEAN CELL VOLUME 86.1 fl (80.0-105.0); MEAN CORPUSCULAR HEMOGLOBIN 29.6 pg (25.0-35.0); MEAN CORPUSCULAR HGB CONC 34.4 g/dl (31.0-37.0); MONO # 0.1 (0.1-0.6); MONO % 0.8 % (1.0-6.0); PLATELET COUNT 264 10^3/uL (120.0-450.0); RBC 4.59 10^6/uL (3.5-6.1); RED CELL DISTRIBUTION WIDTH 14.7 % (11.5-14.5); WHITE BLOOD COUNT 8.4 10^3/ul (4.5-11.0)
[2017-09-16 07:43] LABS: ALB/GLOB RATIO 1.5 (1.1-1.8); ALBUMIN 4.3 g/dL (3.0-4.8); ALT/SGPT 29 U/L (7-56); AST/SGOT 28 U/L (14-36); BLOOD UREA NITROGEN 11 mg/dL (7-21); CALCIUM 9.8 mg/dL (8.4-10.5); GFR NON-AFRICAN AMERICAN > 60
[2017-09-16 07:49] LABS: TROPONIN I < 0.01 ng/mL
[2017-09-16 07:53] LABS: PROTHROMBIN TIME 84.1 SECONDS (9.4-12.5)
[2017-09-16 07:57] LABS: INR 7.03 (0.93-1.08); PARTIAL THROMBOPLASTIN TIME 79.4 Seconds (25.1-36.5)
[2017-09-16] MEDS ORDERED: Arformoterol 15 mcg/2 ml Inh Sol IH SCH (08:00)
--- NOTE | 2017-09-16 08:13 | CP.PCM.PN ---
<Pema Colvin - Last Filed: 09/16/17 13:45> Subjective - Date & Time of Evaluation Date of Evaluation: 09/16/17 Time of Evaluation: 08:15 - Subjective Subjective: Hospitalist progress note for Dr Navarro. Patient with no acute events overnight. States the shortness of breath has improved and the chest pain has resolved. Patient had a good night. No fever or chills. No nausea, vomiting or diarrhea. ate all her breakfast. Patient is c/o constipation. Cough has also improved. Objective - Vital Signs/Intake and Output Vital Signs (last 24 hours): Temp Pulse Resp BP Pulse Ox 98.2 F 88 18 111/80 96 09/16/17 06:00 09/16/17 06:00 09/16/17 06:00 09/16/17 06:00 09/16/17 06:00 Intake and Output: 09/16/17 09/16/17 06:59 18:59 Intake Total 480 Output Total 2 Balance 478 - Medications Medications: Current Medications Atorvastatin Calcium (Lipitor) 10 mg PO DIN [facility] Digoxin (Lanoxin) 0.25 mg PO 1400 [facility] Diltiazem HCl (Cardizem Cd) 120 mg PO 2000 [facility] Furosemide (Lasix) 20 mg IVP DAILY [facility] Guaifenesin/Dextromethorphan (Robitussin Dm) 5 ml PO Q4H PRN PRN Reason: Cough Last Admin: 09/16/17 06:19 Dose: 5 ml Levofloxacin/Dextrose (Levaquin 500mg) 500 mg in 100 mls @ 100 mls/hr IVPB DAILY [facility] PRN Reason: Protocol Levalbuterol HCl (Xopenex) 0.63 mg IH [id number] [facility] Last Admin: 09/16/17 07:05 Dose: 0.63 mg Levalbuterol HCl (Xopenex) 0.63 mg IH Q2H PRN PRN Reason: Shortness of Breath Lisinopril (Zestril) 10 mg PO DAILY [facility] Methylprednisolone (Solu-Medrol) 40 mg IVP Q8 [facility] Last Admin: 09/16/17 06:21 Dose: 40 mg Pantoprazole Sodium (Protonix Inj) 40 mg IVP DAILY [facility] Sertraline HCl (Zoloft) 50 mg PO DAILY [facility] - Labs Labs: 09/16/17 06:30 09/16/17 06:30 PT 84.1 SECONDS (9.4-12.5) H 09/16/17 06:30 INR 7.03 (0.93-1.08) H* 09/16/17 06:30 APTT 79.4 Seconds (25.1-36.5) H 09/16/17 06:30 - Constitutional Appears: No Acute Distress, Cachectic, Chronically Ill - Head Exam Head Exam: ATRAUMATIC, NORMAL INSPECTION, NORMOCEPHALIC - Eye Exam Eye Exam: EOMI, Normal appearance, PERRL. absent: Scleral icterus Pupil Exam: NORMAL ACCOMODATION - ENT Exam ENT Exam: Mucous Membranes Dry - Neck Exam Neck Exam: Normal Inspection - Respiratory Exam Respiratory Exam: Rales (bi-basilar), NORMAL BREATHING PATTERN. absent: Rhonchi , Wheezes, Respiratory Distress, Stridor - Cardiovascular Exam Cardiovascular Exam: Irregular Rhythm, +S1, +S2, Murmur. absent: Bradycardia, Tachycardia, Diastolic murmur, Gallop, JVD, RRR, Rubs - GI/Abdominal Exam GI & Abdominal Exam: Soft, Normal Bowel Sounds. absent: Distended, Firm, Guarding, Rigid, Tenderness, Hernia, Hyperactive Bowel Sounds - Extremities Exam Extremities Exam: Normal Inspection. absent: Pedal Edema - Back Exam Back Exam: NORMAL INSPECTION - Neurological Exam Neurological Exam: Alert, Awake, Oriented x3 - Psychiatric Exam Psychiatric exam: Normal Affect, Normal Mood - Skin Skin Exam: Dry, Intact, Normal Color, Warm Assessment and Plan - Assessment and Plan (Free Text) Assessment: Patient is a 72 y/o with pmhx of Afib on coumadin, COPD, diastolic CHF, anxiety , HTN who initially presented with shortness of breath and chest pain radiating to the left arm was found to have supratherapeutic INR. Patient was also noted to have possibly with copd exacerbation. Plan: 1) Shortness of breath likely due to copd exacerbation - respiratory status improved this am - will taper solumedrol to 30 q8 - continue with Levaquin - continue with robittusin for cough, xoponex standing and prn dose - pro bnp was elevated, however less likely chf exacerbation due to normal echo 05/2017, with mild to moderate . - will check o2 sat off of o2 sat. - will continue with Lasix 40 mg daily. 2) atypical chest pain - troponin x3 neg - afib with normal hr on ekg, no st/t wave changes - No events on tele, other than afib. 3) Hypomagnesemia- resolved 4) Hyperglycemia- no h/o dm, will add hgba1c 5) Supratherapeutic INR- will continue to hold Coumadin - INR 7.03 this morning, no active signs of bleeding, thus will monitor for now. 6) h/o afib - will continue with dig ( dig level this admission 0.7) - Continue with Cardizem, Coumadin on hold 7) h/o htn- continue with lisinopril, 8) h/o hld- continue with Lipitor 9) h/o constipation- continue with miralax 10) h/p anxiety /depression- continue with zoloft and Xanax. 11) Gi prophylaxis: protonix 12) Dispo- pending PT eval Patient seen, examined and case discussed with Dr Navarro. <Marj Navarro - Last Filed: 09/16/17 15:03> Objective - Vital Signs/Intake and Output Vital Signs (last 24 hours): Temp Pulse Resp BP Pulse Ox 98.6 F 92 H 20 127/70 96 09/16/17 12:00 09/16/17 12:00 09/16/17 12:00 09/16/17 12:00 09/16/17 06:00 Intake and Output: 09/16/17 09/16/17 06:59 18:59 Intake Total 480 352 Output Total 2 Balance 478 352 - Medications Medications: Current Medications Acetaminophen (Tylenol 325mg Tab) 650 mg PO Q6H PRN PRN Reason: Headache Alprazolam (Xanax) 0.5 mg PO TID PRN; Protocol PRN Reason: Anxiety Last Admin: 09/16/17 10:32 Dose: 0.5 mg Atorvastatin Calcium (Lipitor) 10 mg PO DIN [facility] Digoxin (Lanoxin) 0.25 mg PO 1400 [facility] Last Admin: 09/16/17 13:59 Dose: 0.25 mg Diltiazem HCl (Cardizem Cd) 120 mg PO 2000 [facility] Furosemide (Lasix) 20 mg IVP DAILY [facility] Last Admin: 09/16/17 09:35 Dose: 20 mg Guaifenesin/Dextromethorphan (Robitussin Dm) 5 ml PO Q4H PRN PRN Reason: Cough Last Admin: 09/16/17 10:32 Dose: 5 ml Levalbuterol HCl (Xopenex) 0.63 mg IH [id number] [facility] Last Admin: 09/16/17 13:26 Dose: 0.63 mg Levalbuterol HCl (Xopenex) 0.63 mg IH Q2H PRN PRN Reason: Shortness of Breath Last Admin: 09/16/17 11:26 Dose: 0.63 mg Lidocaine HCl (Xylocaine 2% (Uro-Jet)) 1 ea TOP DAILY [facility] Last Admin: 09/16/17 10:31 Dose: 1 applic Lisinopril (Zestril) 10 mg PO DAILY [facility] Last Admin: 09/16/17 09:34 Dose: 10 mg Methylprednisolone (Solu-Medrol) 20 mg IVP Q8 [facility] Pantoprazole Sodium (Protonix Ec Tab) 40 mg PO 0600 [facility] Polyethylene Glycol (Miralax) 17 gm PO DAILY [facility] Last Admin: 09/16/17 10:32 Dose: 17 gm Sertraline HCl (Zoloft) 50 mg PO DAILY [facility] Last Admin: 09/16/17 09:33 Dose: 50 mg - Labs Labs: 09/16/17 06:30 09/16/17 06:30 PT 84.1 SECONDS (9.4-12.5) H 09/16/17 06:30 INR 7.03 (0.93-1.08) H* 09/16/17 06:30 APTT 79.4 Seconds (25.1-36.5) H 09/16/17 06:30 Attending/Attestation - Attestation I have personally seen and examined this patient.: Yes I have fully participated in the care of the patient.: Yes I have reviewed all pertinent clinical information, including history, physical exam and plan: Yes Notes (Text): 09/16/17 15:02 Patient seen and examined independently at bedside. Labs, vitals and admission notes reviewed. INR supratherapeutic and warfarin held. Cardiology input appreciated. Agree with the plan as discussed and outlined by the resident.
[2017-09-16] MEDS ORDERED: levoFLOXacin 500 mg in D5W 500 MG/100 ML BAG IVPB SCH (10:00)
[2017-09-16] MEDS: Lidocaine 2% Jelly (Uro-Jet) TOP SCH (10:31)
[2017-09-16] MEDS: POLYETHYLENE GLYCOL 3350 17 GM/Dose PACKET PO SCH (10:32)
[2017-09-16 10:46] LABS: BAND 6 % (0-2); EOSINOPHIL 1 % (0.0-3.0); LYMPHOCYTE 4 % (22.0-35.0); MONOCYTE 1 % (1.0-6.0); NEUTROPHIL 88 % (50.0-70.0); PLATELET ESTIMATE NORMAL (NORMAL)
[2017-09-16] MEDS: Levalbuterol 0.63 MG/3 ML Inhal Soln UD IH PRN (11:26)
[2017-09-16] MEDS ORDERED: MethylPREDNISolone 40 mg Vial IVP SCH (12:02)
--- NOTE | 2017-09-16 13:46 | CARD ---
APPROVED REPORT EKG Measurement Heart [id number] <Conclusion> Atrial fibrillation Possible Anterior infarct, age undetermined Abnormal ECG
[2017-09-16] MEDS: Digoxin 250 mcg (0.25 mg) Tab PO SCH (13:59)
--- NOTE | 2017-09-16 16:09 | RAD ---
HISTORY: sob COMPARISON: Comparison chest 08/07/2017 theNo prior. FINDINGS: LUNGS: Coarsened increased interstitial markings ; rule out sequela of reactive/inflammatory airway disease or viral illness. Possibility of underlying interstitial fibrosis should be excluded as well. Note that both medial lung apices are partially obscured by overlying mandible and facial soft tissue artifact PLEURA: No significant pleural effusion identified, no pneumothorax apparent. CARDIOVASCULAR: Normal. OSSEOUS STRUCTURES: No significant abnormalities. VISUALIZED UPPER ABDOMEN: Normal. OTHER FINDINGS: None. IMPRESSION: Coarsened increased interstitial markings ; rule out sequela of reactive/inflammatory airway disease or viral illness. Possibility of underlying interstitial fibrosis should be excluded as well. Note that both medial lung apices are partially obscured by overlying mandible and facial soft tissue artifact
[2017-09-16] MEDS: Benzocaine/Menthol (Cepacol) Lozenge MT PRN ×2 (17:18→21:06)
[2017-09-16] MEDS: diltiaZEM 120 mg/24 Hours CD Cap PO SCH (20:10)
[2017-09-17] MEDS: Levalbuterol 0.63 MG/3 ML Inhal Soln UD IH PRN (00:20)
[2017-09-17] MEDS: Levalbuterol 0.63 MG/3 ML Inhal Soln UD IH SCH ×4 (02:20→21:27)
[2017-09-17] MEDS: guaiFENesin DM 100 mg-10 mg/5 ml UD PO PRN ×3 (03:59→21:20)
[2017-09-17] MEDS: Benzocaine/Menthol (Cepacol) Lozenge MT PRN ×3 (04:00→21:20)
[2017-09-17] MEDS: Pantoprazole 40 mg EC Tab PO SCH (06:02)
[2017-09-17] MEDS: MethylPREDNISolone 40 mg Vial IVP SCH (06:03)
[2017-09-17 07:14] LABS: LDL CHOLESTEROL 35 mg/dL (0-129)
[2017-09-17 07:19] LABS: ALB/GLOB RATIO 1.6 (1.1-1.8); ALT/SGPT 31 U/L (7-56); AST/SGOT 29 U/L (14-36); BLOOD UREA NITROGEN 12 mg/dL (7-21); CALCIUM 9.5 mg/dL (8.4-10.5); GFR NON-AFRICAN AMERICAN > 60; HDL CHOLESTEROL 85 mg/dL (29-60)
[2017-09-17 07:24] LABS: INR 1.34 (0.93-1.08); PARTIAL THROMBOPLASTIN TIME 34.7 Seconds (25.1-36.5); PROTHROMBIN TIME 15.5 SECONDS (9.4-12.5)
[2017-09-17 07:29] LABS: GRAN # 9.62 (1.4-6.5); GRAN % 85.8 % (50.0-68.0); HEMOGLOBIN 13.4 g/dL (12.0-16.0); LYMPH % 8.8 % (22.0-35.0); MEAN CELL VOLUME 86.3 fl (80.0-105.0); MEAN CORPUSCULAR HEMOGLOBIN 29.2 pg (25.0-35.0); MEAN CORPUSCULAR HGB CONC 33.8 g/dl (31.0-37.0); MONO # 0.6 (0.1-0.6); MONO % 5.4 % (1.0-6.0); RBC 4.59 10^6/uL (3.5-6.1); RED CELL DISTRIBUTION WIDTH 14.4 % (11.5-14.5); WHITE BLOOD COUNT 11.2 10^3/ul (4.5-11.0)
--- NOTE | 2017-09-17 07:43 | CON ---
DATE: 09/16/2017 REASON FOR CONSULTATION: Shortness of breath, history of atrial fibrillation, non-obstructive coronary artery disease, cardiac evaluation. BRIEF CLINICAL HISTORY: This is a 72-year-old female with past medical history significant for atrial fibrillation, history of non-obstructive coronary artery disease, came in with complaint of shortness of breath. Daughter is in the emergency room. Complaining of neck pain, complaining of shoulder pain, complaining of back pain. PAST MEDICAL HISTORY: Significant for atrial fibrillation, on Coumadin, asthma, COPD, coronary artery disease, anxiety disorder. PAST SURGICAL HISTORY: Significant for lung resection in 2014. ALLERGIES: TO ZITHROMAX AND GETS RASH. PREVIOUS CARDIAC WORKUP: As follows: The patient had a stress test dated 06/12/2016 that showed abnormal myocardial perfusion suspicious for ischemia, ejection fraction of 37%. Following that, the patient had cardiac catheterization done on 06/29/2016 that shows non-obstructive coronary artery disease, limited only to very distal LAD, diffusely diseased, but no focal flow-limiting stenosis noted. Moderately decreased LV function. Ejection fraction 35% to 40%, EDP was in the range of 20. No gradient across the aortic valve noted on pullback. The echo showed at that time [id number] aortic stenosis, but in cardiac catheterization, no gradient across aortic valve noted. At that time, recommendation was made to treat it very aggressively including digoxin, diuretics, LADARIUS inhibitor, Coreg and Coumadin for atrial fibrillation and follow up of LV function in 3 to 6 months, and if it remains below 35, consider AICD. Cath dated 06/29/2016. The patient had an echo on 06/01/2016 that shows no prolapse, ejection fraction of 35%, dyyc-jg-kzwbbcxp aortic stenosis as mentioned, but no gradient across the aortic valve noted. The patient's repeat echo during this admission dated 05/30/2017 shows ejection fraction 55% to 60%, wtjz-jh-[id number] valvular aortic stenosis, mild regurgitation, xjer-du-pgipcocr tricuspid regurgitation, RV systolic pressure 37. CURRENT MEDICATIONS: Patient is taking at home Cardizem 120, Coumadin 5, spironolactone 25, Zoloft 10 mg, Lasix 40 mg, digoxin 0.25, Lipitor 10, Brovana, albuterol. REVIEW OF SYSTEMS: As per HPI. PHYSICAL EXAMINATION: VITAL SIGNS: As follows: Height of the patient 5 feet 8 inches, weight of the patient is 139 pounds, body mass index 25 kg/m2. Heart rate 92, blood pressure 127/70. HEENT: PERRLA. Extraocular muscles intact. NECK: Supple. No carotid bruit or thyromegaly. CHEST: Clear to auscultation. HEART: S1 and S2 regular. ABDOMEN: Soft. EXTREMITIES: Clubbing and cyanosis negative. LABORATORY DATA: Blood workup as follows: WBC hematocrit 39.5, platelet count 264. Chemistry shows sodium 134, potassium chloride 95, carbon dioxide 28, anion gap of 15. BUN 11, creatinine 0.5. Troponin 0.01, negative. EKG showed AFib rate of 95. Chest x-ray with mild pulmonary congestion, minimal. BNP 1380. IMPRESSION: A 72-year-old female with past medical history significant for chronic atrial fibrillation, anticoagulation, supratherapeutic INR of 7.03, hypertension, chronic obstructive pulmonary disease, nonobstructive coronary artery disease, distally limited left anterior descending disease, ejection 35% to 40%. Most recent echo dated 05/30/2017 showed ejection fraction 55% to 60%, slkd-jl-qjkeczpi mitral regurgitation, vynu-pv-yxolsbmu aortic stenosis, sidb-rd-gibpijzc tricuspid regurgitation, right ventricular systolic pressure of 37, but no gradient across the aortic valve noted on cath. RECOMMENDATION: We will continue Lasix, continue digoxin. Continue 1 dose of vitamin K, repeat INR tomorrow. We will follow with you. We will get the MUGA scan. Thank you Dr. Walters for providing us the opportunity in taking care of the patient, Alecia Arciniega. We will follow with you. Mak Mendez MD
[2017-09-17] MEDS: POLYETHYLENE GLYCOL 3350 17 GM/Dose PACKET PO SCH (09:28)
[2017-09-17] MEDS: Lidocaine 2% Jelly (Uro-Jet) TOP SCH (11:03)
--- NOTE | 2017-09-17 13:07 | PN ---
DATE: 09/17/2017 REASON FOR THE CONSULTATION AND FOLLOWUP: Shortness of breath, atrial fibrillation, nonobstructive coronary artery disease, cardiac evaluation. SUBJECTIVE: The patient denies any chest pain, SOB or any palpitations, still feels cough. OBJECTIVE: GENERAL: Not in apparent distress, lying flat, mild wheezing. VITAL SIGNS: Temperature afebrile, heart rate 61, blood pressure 134/76. HEENT: PERRLA. Extraocular muscles intact. NECK: Supple. No carotid bruit or thyromegaly. CHEST: Clear to auscultation. HEART: S1, S2 regular. ABDOMEN: Soft. EXTREMITIES: Clubbing and cyanosis negative. LABORATORY DATA: Blood workup as follows: WBC 11.2, hemoglobin 13.4, hematocrit 39.6, platelet count 286. Chemistry shows sodium 129, potassium 4.8, chloride 90, carbon dioxide 30, anion gap of 13, BUN 12, creatinine 0.5, troponin remains 0.01 and negative. IMPRESSION: Mild congestive heart failure; cardiomyopathy; nonobstructive coronary artery disease; atrial fibrillation, chronic; supratherapeutic INR, Coumadin was on hold, started on vitamin K 1 dose yesterday. RECOMMENDATIONS: Continue IV Lasix, start Cardizem, continue baseline medication, rate is well controlled. We will resume back Coumadin. We will give 5 mg of Coumadin today and 3 from tomorrow. Further recommendations depending on hospital course. We will discontinue Telemetry. Thank you, Dr. Bruno, for providing us the opportunity in taking care of the patient, Alecia Arciniega. Mak Mendez MD MTDPancho
[2017-09-17] MEDS: Digoxin 250 mcg (0.25 mg) Tab PO SCH (13:42)
--- NOTE | 2017-09-17 13:56 | CP.PCM.PN ---
<Valentino Singh - Last Filed: 09/17/17 13:52> Subjective - Date & Time of Evaluation Date of Evaluation: 09/17/17 Time of Evaluation: 13:52 - Subjective Subjective: Patient seen and examined this AM. Overnight patient complains of cough and difficulty sleeping. Patient denies chest pain, fever, nausea, vomiting, diarrhea. Objective - Vital Signs/Intake and Output Vital Signs (last 24 hours): Temp Pulse Resp BP Pulse Ox 98.1 F 97 H 19 129/77 97 09/17/17 11:57 09/17/17 11:57 09/17/17 11:57 09/17/17 11:57 09/17/17 05:39 Intake and Output: 09/17/17 09/17/17 06:59 18:59 Intake Total 240 144 Balance 240 144 - Medications Medications: Current Medications Acetaminophen (Tylenol 325mg Tab) 650 mg PO Q6H PRN PRN Reason: Headache Last Admin: 09/17/17 12:09 Dose: 650 mg Alprazolam (Xanax) 0.5 mg PO TID PRN; Protocol PRN Reason: Anxiety Last Admin: 09/17/17 12:10 Dose: 0.5 mg Atorvastatin Calcium (Lipitor) 10 mg PO DIN [facility] Last Admin: 09/16/17 17:18 Dose: 10 mg Benzocaine/Menthol (Cepacol Sore Throat) 1 david MT Q2H PRN PRN Reason: Sore Throat Last Admin: 09/17/17 12:10 Dose: 1 david Digoxin (Lanoxin) 0.25 mg PO 1400 [facility] Last Admin: 09/17/17 13:42 Dose: 0.25 mg Diltiazem HCl (Cardizem Cd) 120 mg PO 2000 [facility] Last Admin: 09/16/17 20:10 Dose: 120 mg Furosemide (Lasix) 40 mg IV DAILY [facility] Last Admin: 09/17/17 09:29 Dose: 40 mg Guaifenesin/Dextromethorphan (Robitussin Dm) 5 ml PO Q4H PRN PRN Reason: Cough Last Admin: 09/17/17 12:10 Dose: 5 ml Levalbuterol HCl (Xopenex) 0.63 mg IH Q2H PRN PRN Reason: Shortness of Breath Last Admin: 09/17/17 00:20 Dose: 0.63 mg Levalbuterol HCl (Xopenex) 0.63 mg IH [id number] [facility] Last Admin: 09/17/17 13:34 Dose: 0.63 mg Lidocaine HCl (Xylocaine 2% (Uro-Jet)) 1 ea TOP DAILY [facility] Last Admin: 09/17/17 11:03 Dose: Not Given Lisinopril (Zestril) 10 mg PO DAILY [facility] Last Admin: 09/17/17 09:28 Dose: 10 mg Lorazepam (Ativan) 1 mg IVP Q6H PRN; Protocol PRN Reason: Anxiety Stop: 09/21/17 23:59 Pantoprazole Sodium (Protonix Ec Tab) 40 mg PO 0600 [facility] Last Admin: 09/17/17 06:02 Dose: 40 mg Polyethylene Glycol (Miralax) 17 gm PO DAILY [facility] Last Admin: 09/17/17 09:28 Dose: 17 gm Prednisone (Prednisone Tab) 40 mg PO Q12H [facility] Last Admin: 09/17/17 13:06 Dose: Not Given Sertraline HCl (Zoloft) 50 mg PO DAILY [facility] Last Admin: 09/17/17 09:28 Dose: 50 mg Warfarin Sodium (Coumadin) 5 mg PO 1800 [facility] PRN Reason: Protocol Stop: 09/17/17 23:59 Warfarin Sodium (Coumadin) 3 mg PO 1800 [facility] PRN Reason: Protocol - Labs Labs: 09/17/17 06:44 09/17/17 06:44 PT 15.5 SECONDS (9.4-12.5) H 09/17/17 06:44 INR 1.34 (0.93-1.08) H 09/17/17 06:44 APTT 34.7 Seconds (25.1-36.5) 09/17/17 06:44 - Constitutional Appears: No Acute Distress - Head Exam Head Exam: ATRAUMATIC, NORMAL INSPECTION, NORMOCEPHALIC - Eye Exam Eye Exam: EOMI, PERRL - ENT Exam ENT Exam: Mucous Membranes Moist - Neck Exam Neck Exam: Full ROM - Respiratory Exam Respiratory Exam: Decreased Breath Sounds, Wheezes - Cardiovascular Exam Cardiovascular Exam: REGULAR RHYTHM, +S1, +S2 - GI/Abdominal Exam GI & Abdominal Exam: Soft, Normal Bowel Sounds. absent: Rigid, Tenderness - Extremities Exam Extremities Exam: Full ROM, Normal Capillary Refill. absent: Pedal Edema, Tenderness - Neurological Exam Neurological Exam: Alert, Awake, Oriented x3 Neuro motor strength exam: Left Upper Extremity: 5, Right Upper Extremity: 5, Left Lower Extremity: 5, Right Lower Extremity: 5 - Psychiatric Exam Psychiatric exam: Normal Affect, Normal Mood - Skin Skin Exam: Dry, Warm Assessment and Plan - Assessment and Plan (Free Text) Assessment: 72 y/o with pmhx of Afib on coumadin, COPD, diastolic CHF, anxiety, HTN who initially presented with shortness of breath and chest pain radiating to the left arm was found to have supratherapeutic INR. Patient being treated for copd exacerbation. Plan: 1. COPD exacerbation - Solumedrol 30 Q8H switch to PO prednisone 40mg - Levaquin - Xopenex, robittusin - Normal echo 05/2017 - Lasix 40mg IV 2. Atrial Fibrillation with supratherapeutic INR - Was treated with coumadin, supratheraputic on admission - s/p vitamin K and holding coumadin - Will restart coumadin regular dose 8mg tonight - Cardiology consulted, f/u recs - continue IV lasix, cardizem - resume ccoumadin, 5mg today and 3 tomorrow - discontinue telemetry - Treated with cardizem and digoxin 3. HTN - Cardizem, Lisinopril - BP stable, continue to monitor 4. HLD - Continue HLD 5. Anxiety and depression - Continue with Zoloft, Xanax GI/DVT ppx - Protonix - SCD Dispo: Pending PT eval Case and plan discussed with attending <Mak Sparrow - Last Filed: 09/21/17 14:50> Objective - Vital Signs/Intake and Output Vital Signs (last 24 hours): Temp Pulse Resp BP Pulse Ox 97.6 F 85 20 162/97 H 95 09/19/17 06:00 09/19/17 10:02 09/19/17 06:00 09/19/17 10:02 09/19/17 06:00 - Labs Labs: 09/18/17 17:14 09/18/17 17:14 PT 12.2 SECONDS (9.4-12.5) 09/19/17 06:30 INR 1.06 (0.93-1.08) 09/19/17 06:30 APTT 29.6 Seconds (25.1-36.5) 09/18/17 06:47 Attending/Attestation - Attestation I have personally seen and examined this patient.: Yes I have fully participated in the care of the patient.: Yes I have reviewed all pertinent clinical information, including history, physical exam and plan: Yes Notes (Text): 09/21/17 14:49 Medical record note made by the resident after discussion with my direction and input after the patient was personally seen and examined by me. I have reviewed the chart and agree that the record accurately reflects by personal performance of the history, physical exam, data review, and medical decision-making, in the course for the patient. I have also personally directed the plan of care. Patient cough and wheezing is improved.We will switch to oral Prednisone 40 mg po daily. Lasix is changed to oral, We will get Physical therapy evaluation.
[2017-09-17] MEDS: diltiaZEM 120 mg/24 Hours CD Cap PO SCH (20:08)
--- NOTE | 2017-09-17 21:20 | CARD ---
APPROVED REPORT INDICATION Congestive Heart Failure Evaluate LV and RV Ejection Fraction PROCEDURE The above named patient recieved 24.6 millicuries of Tc99m tagged red blood cells intravenously. After achieving equilibrium, gated imaging of 16/frame/cycle was performed utillizing Gamma camera interfaced with a digital computer and gated device. Gated imaging was then performed in the left anterior oblique, anterior, and the left lateral projections. Findings Left Ventricle: The quality of the study is good. The left ventricle is within normal limits in size. The right ventricle is normal in size. Wall motion study shows good contractility of the left ventricle. RV wall motion is normal. The right atrium is dilated and akinetic. The remainder of the study is unremarkable. Impressions Normal gated wall motion of left ventricle wall. LVEF = 56%. Normal RV wall motion. Akinetic, dilated, right atrium is suggesive of atrial fibrillation.
[2017-09-17 22:48] VITALS: RESP 20
[2017-09-18] MEDS: Levalbuterol 0.63 MG/3 ML Inhal Soln UD IH SCH ×7 (00:29→23:42)
[2017-09-18] MEDS: Pantoprazole 40 mg EC Tab PO SCH (05:58)
[2017-09-18 07:00] LABS: GRAN # 9.33 (1.4-6.5); GRAN % 88.6 % (50.0-68.0); HEMOGLOBIN 14.1 g/dL (12.0-16.0); LYMPH # 0.9 (1.2-3.4); LYMPH % 8.4 % (22.0-35.0); MEAN CELL VOLUME 85.3 fl (80.0-105.0); MEAN CORPUSCULAR HEMOGLOBIN 29.6 pg (25.0-35.0); MEAN CORPUSCULAR HGB CONC 34.6 g/dl (31.0-37.0); MEAN PLATELET VOLUME 8.5 fl (7.0-11.0); MONO # 0.3 (0.1-0.6); RBC 4.77 10^6/uL (3.5-6.1); RED CELL DISTRIBUTION WIDTH 14.2 % (11.5-14.5); WHITE BLOOD COUNT 10.5 10^3/ul (4.5-11.0)
[2017-09-18 07:06] LABS: ALB/GLOB RATIO 1.6 (1.1-1.8); ALT/SGPT 37 U/L (7-56); AST/SGOT 29 U/L (14-36); BLOOD UREA NITROGEN 13 mg/dL (7-21); CALCIUM 9.5 mg/dL (8.4-10.5); GFR NON-AFRICAN AMERICAN > 60
[2017-09-18 07:15] LABS: INR 0.98 (0.93-1.08); PROTHROMBIN TIME 11.3 SECONDS (9.4-12.5)
[2017-09-18 07:16] LABS: PARTIAL THROMBOPLASTIN TIME 29.6 Seconds (25.1-36.5)
--- NOTE | 2017-09-18 07:21 | CP.PCM.PN ---
Subjective - Date & Time of Evaluation Date of Evaluation: 09/18/17 Time of Evaluation: 06:35 - Subjective Subjective: Lying in bed, easily awaken, denies shortness of breath Reason for consultation and follow up: Cardiac evaluation for shortness of breath,history of atrial fibrillation on coumadin, COPD, diastolic CHF, anxiety, hypertension Seen and examined by me and Dr. Mendez Objective - Vital Signs/Intake and Output Vital Signs (last 24 hours): Temp Pulse Resp BP Pulse Ox 97.7 F 84 20 139/95 H 99 09/17/17 22:48 09/17/17 22:48 09/17/17 22:48 09/17/17 22:48 09/17/17 22:48 Intake and Output: 09/18/17 09/18/17 06:59 18:59 Intake Total 720 Balance 720 - Medications Medications: Current Medications Acetaminophen (Tylenol 325mg Tab) 650 mg PO Q6H PRN PRN Reason: Headache Last Admin: 09/17/17 20:09 Dose: 650 mg Alprazolam (Xanax) 0.5 mg PO TID PRN; Protocol PRN Reason: Anxiety Last Admin: 09/17/17 20:09 Dose: 0.5 mg Atorvastatin Calcium (Lipitor) 10 mg PO DIN [facility] Last Admin: 09/17/17 17:15 Dose: 10 mg Benzocaine/Menthol (Cepacol Sore Throat) 1 david MT Q2H PRN PRN Reason: Sore Throat Last Admin: 09/17/17 21:20 Dose: 1 david Digoxin (Lanoxin) 0.25 mg PO 1400 [facility] Last Admin: 09/17/17 13:42 Dose: 0.25 mg Diltiazem HCl (Cardizem Cd) 120 mg PO 2000 [facility] Last Admin: 09/17/17 20:08 Dose: 120 mg Furosemide (Lasix) 40 mg IV DAILY [facility] Last Admin: 09/17/17 09:29 Dose: 40 mg Guaifenesin/Dextromethorphan (Robitussin Dm) 5 ml PO Q4H PRN PRN Reason: Cough Last Admin: 09/17/17 21:20 Dose: 5 ml Levalbuterol HCl (Xopenex) 0.63 mg IH Q2H PRN PRN Reason: Shortness of Breath Last Admin: 09/17/17 00:20 Dose: 0.63 mg Levalbuterol HCl (Xopenex) 0.63 mg IH [id number] [facility] Last Admin: 09/18/17 07:14 Dose: 0.63 mg Lidocaine HCl (Xylocaine 2% (Uro-Jet)) 1 ea TOP DAILY [facility] Last Admin: 09/17/17 11:03 Dose: Not Given Lisinopril (Zestril) 10 mg PO DAILY [facility] Last Admin: 09/17/17 09:28 Dose: 10 mg Lorazepam (Ativan) 1 mg IVP Q6H PRN; Protocol PRN Reason: Anxiety Stop: 09/21/17 23:59 Pantoprazole Sodium (Protonix Ec Tab) 40 mg PO 0600 [facility] Last Admin: 09/18/17 05:58 Dose: 40 mg Polyethylene Glycol (Miralax) 17 gm PO DAILY [facility] Last Admin: 09/17/17 09:28 Dose: 17 gm Prednisone (Prednisone Tab) 40 mg PO Q12H [facility] Last Admin: 09/17/17 23:38 Dose: 40 mg Sertraline HCl (Zoloft) 50 mg PO DAILY [facility] Last Admin: 09/17/17 09:28 Dose: 50 mg Warfarin Sodium (Coumadin) 3 mg PO 1800 [facility] PRN Reason: Protocol - Labs Labs: 09/18/17 06:47 09/18/17 06:47 PT 11.3 SECONDS (9.4-12.5) 09/18/17 06:47 INR 0.98 (0.93-1.08) 09/18/17 06:47 APTT 29.6 Seconds (25.1-36.5) 09/18/17 06:47 - Constitutional Appears: No Acute Distress - Eye Exam Eye Exam: Normal appearance - ENT Exam ENT Exam: Mucous Membranes Moist - Respiratory Exam Respiratory Exam: Decreased Breath Sounds, NORMAL BREATHING PATTERN - Cardiovascular Exam Cardiovascular Exam: +S1, +S2 - GI/Abdominal Exam GI & Abdominal Exam: Soft, Normal Bowel Sounds - Extremities Exam Extremities Exam: Normal Capillary Refill - Neurological Exam Neurological Exam: Alert, Awake, Oriented x3 - Psychiatric Exam Psychiatric exam: Normal Affect, Normal Mood - Skin Skin Exam: Normal Color, Warm Assessment and Plan - Assessment and Plan (Free Text) Assessment: A 72 year old female who came in to the ER due to shortness of breath.History of atrial fibrillation on coumadin, COPD, diastolic CHF, anxiety, hypertension, Robotic assisted Left VATS with wedge resection and lymph node biopsy 06/2015, polypectomy,Smokes 3-4 cigs a day. Mild exacerbation of congestive heart failure for this admission,severe anxiety, subtherapeutic INR. Plan: MUGA scan done yesterday-LVEF 50%,Normal RV,Akinetic dilated right atrium suggestive of atrial fibrillation Complaints of cough and unable to sleep last night Seen by house physician and nebulizer treatment and PRN cough medicine given with relief Continue Lasix to diurese Continue Coumadin, Digoxin and Cardizem for Afib Resolving CHF Denies shortness of breath now Continue current treatment Continue cuttent medications Will follow up Plan and treatment discussed with Dr. Mendez
[2017-09-18] MEDS: guaiFENesin DM 100 mg-10 mg/5 ml UD PO PRN (10:10)
[2017-09-18] MEDS: POLYETHYLENE GLYCOL 3350 17 GM/Dose PACKET PO SCH (10:10)
--- NOTE | 2017-09-18 12:39 | CP.PCM.PN ---
<Valentino Singh - Last Filed: 09/18/17 15:43> Subjective - Date & Time of Evaluation Date of Evaluation: 09/18/17 Time of Evaluation: 12:35 - Subjective Subjective: Patient seen and evaluated this AM. Patient with some improvement in breathing but overall still poor. Patient continues to receive duonebs and steroids. Patient indicates she does not want to got to TCU and would rather go home. Denies chest pain, nausea, vomiting, focal deficits, urinary complaints Objective - Vital Signs/Intake and Output Vital Signs (last 24 hours): Temp Pulse Resp BP Pulse Ox 98 F 84 20 148/76 98 09/18/17 06:00 09/17/17 22:48 09/18/17 06:00 09/18/17 10:08 09/18/17 06:00 Intake and Output: 09/18/17 09/18/17 06:59 18:59 Intake Total 720 Balance 720 - Medications Medications: Current Medications Acetaminophen (Tylenol 325mg Tab) 650 mg PO Q6H PRN PRN Reason: Headache Last Admin: 09/17/17 20:09 Dose: 650 mg Alprazolam (Xanax) 0.5 mg PO TID PRN; Protocol PRN Reason: Anxiety Last Admin: 09/18/17 12:13 Dose: 0.5 mg Atorvastatin Calcium (Lipitor) 10 mg PO DIN [facility] Last Admin: 09/17/17 17:15 Dose: 10 mg Benzocaine/Menthol (Cepacol Sore Throat) 1 david MT Q2H PRN PRN Reason: Sore Throat Last Admin: 09/17/17 21:20 Dose: 1 david Digoxin (Lanoxin) 0.25 mg PO 1400 [facility] Last Admin: 09/17/17 13:42 Dose: 0.25 mg Diltiazem HCl (Cardizem Cd) 120 mg PO 2000 [facility] Last Admin: 09/17/17 20:08 Dose: 120 mg Furosemide (Lasix) 40 mg IV DAILY [facility] Last Admin: 09/18/17 10:08 Dose: 40 mg Guaifenesin/Dextromethorphan (Robitussin Dm) 5 ml PO Q4H PRN PRN Reason: Cough Last Admin: 09/18/17 10:10 Dose: 5 ml Levalbuterol HCl (Xopenex) 0.63 mg IH Q2H PRN PRN Reason: Shortness of Breath Last Admin: 09/17/17 00:20 Dose: 0.63 mg Levalbuterol HCl (Xopenex) 0.63 mg IH [id number] [facility] Last Admin: 09/18/17 11:02 Dose: 0.63 mg Lidocaine HCl (Xylocaine 2% (Uro-Jet)) 1 ea TOP DAILY [facility] Last Admin: 09/17/17 11:03 Dose: Not Given Lisinopril (Zestril) 10 mg PO DAILY [facility] Last Admin: 09/18/17 10:09 Dose: 10 mg Lorazepam (Ativan) 1 mg IVP Q6H PRN; Protocol PRN Reason: Anxiety Stop: 09/21/17 23:59 Pantoprazole Sodium (Protonix Ec Tab) 40 mg PO 0600 [facility] Last Admin: 09/18/17 05:58 Dose: 40 mg Polyethylene Glycol (Miralax) 17 gm PO DAILY [facility] Last Admin: 09/18/17 10:10 Dose: 17 gm Prednisone (Prednisone Tab) 40 mg PO DAILY [facility] Last Admin: 09/18/17 10:08 Dose: 40 mg Sertraline HCl (Zoloft) 50 mg PO DAILY [facility] Last Admin: 09/18/17 10:10 Dose: 50 mg Warfarin Sodium (Coumadin) 3 mg PO 1800 [facility] PRN Reason: Protocol Warfarin Sodium (Coumadin) 5 mg PO 1800 [facility] PRN Reason: Protocol Stop: 09/19/17 23:59 - Labs Labs: 09/18/17 06:47 09/18/17 06:47 PT 11.3 SECONDS (9.4-12.5) 09/18/17 06:47 INR 0.98 (0.93-1.08) 09/18/17 06:47 APTT 29.6 Seconds (25.1-36.5) 09/18/17 06:47 - Constitutional Appears: No Acute Distress - Head Exam Head Exam: ATRAUMATIC, NORMAL INSPECTION, NORMOCEPHALIC - Eye Exam Eye Exam: EOMI, PERRL - Neck Exam Neck Exam: Full ROM - Respiratory Exam Respiratory Exam: Rhonchi, Wheezes (mild expiratory ), NORMAL BREATHING PATTERN - Cardiovascular Exam Cardiovascular Exam: REGULAR RHYTHM, +S1, +S2 - GI/Abdominal Exam GI & Abdominal Exam: Soft, Normal Bowel Sounds - Extremities Exam Extremities Exam: Normal Capillary Refill. absent: Calf Tenderness, Tenderness - Neurological Exam Neurological Exam: Alert, Awake, Oriented x3 - Psychiatric Exam Psychiatric exam: Normal Mood - Skin Skin Exam: Dry, Intact Assessment and Plan - Assessment and Plan (Free Text) Assessment: 72 y/o with pmhx of Afib on coumadin, COPD, diastolic CHF, anxiety, HTN who initially presented with shortness of breath and chest pain radiating to the left arm was found to have supratherapeutic INR. Patient being treated for copd exacerbation. Plan: 1. COPD exacerbation - Solumedrol 30 Q8H switch to PO prednisone 40mg - Levaquin - Xopenex, robittusin - Normal echo 05/2017 - Lasix 40mg IV 2. Atrial Fibrillation with supratherapeutic INR - Was treated with coumadin, supratheraputic on admission - s/p vitamin K and holding coumadin - Will restart coumadin regular dose 8mg tonight - Cardiology consulted, f/u recs - continue IV lasix, cardizem - resume ccoumadin - discontinue telemetry - Treated with cardizem and digoxin 3. HTN - Cardizem, Lisinopril - BP stable, continue to monitor 4. HLD - Continue HLD 5. Anxiety and depression - Continue with Zoloft, Xanax GI/DVT ppx - Protonix - SCD Dispo: Pending PT eval Case and plan discussed with attending <Mak Sparrow - Last Filed: 09/22/17 13:54> Objective - Vital Signs/Intake and Output Vital Signs (last 24 hours): Temp Pulse Resp BP Pulse Ox 97.6 F 85 20 162/97 H 95 09/19/17 06:00 09/19/17 10:02 09/19/17 06:00 09/19/17 10:02 09/19/17 06:00 - Labs Labs: 09/18/17 17:14 09/18/17 17:14 PT 12.2 SECONDS (9.4-12.5) 09/19/17 06:30 INR 1.06 (0.93-1.08) 09/19/17 06:30 APTT 29.6 Seconds (25.1-36.5) 09/18/17 06:47 Attending/Attestation - Attestation I have personally seen and examined this patient.: Yes I have fully participated in the care of the patient.: Yes I have reviewed all pertinent clinical information, including history, physical exam and plan: Yes Notes (Text): 09/22/17 13:49 Medical record note made by the resident after discussion with my direction and input after the patient was personally seen and examined by me. I have reviewed the chart and agree that the record accurately reflects by personal performance of the history, physical exam, data review, and medical decision-making, in the course for the patient. I have also personally directed the plan of care. 72 yrs old female was admitted with mCOPD/ CHF exacerbation and supra therapeutic INR. COPD is improving, still has mild wheezing, on prednisone will ambulate patient. Diastolic CHF, lasix has been changed to oral, . EF is 50% on Muga Scan..Patient is euvolemic. AF, rate is controlled, warfarin is restarted., will monitor INR. Management plan was discussed in detail with patient. Education was provided.
[2017-09-18] MEDS: Digoxin 250 mcg (0.25 mg) Tab PO SCH (17:17)
[2017-09-18 17:29] LABS: GRAN # 9.16 (1.4-6.5); GRAN % 88.3 % (50.0-68.0); HEMOGLOBIN 14.6 g/dL (12.0-16.0); LYMPH # 0.9 (1.2-3.4); LYMPH % 8.2 % (22.0-35.0); MEAN CELL VOLUME 85.5 fl (80.0-105.0); MEAN CORPUSCULAR HEMOGLOBIN 29.9 pg (25.0-35.0); MEAN PLATELET VOLUME 8.8 fl (7.0-11.0); MONO # 0.4 (0.1-0.6); MONO % 3.5 % (1.0-6.0); RBC 4.88 10^6/uL (3.5-6.1); RED CELL DISTRIBUTION WIDTH 14.1 % (11.5-14.5); WHITE BLOOD COUNT 10.4 10^3/ul (4.5-11.0)
[2017-09-18 17:39] LABS: ALB/GLOB RATIO 1.5 (1.1-1.8); ALBUMIN 4.2 g/dL (3.0-4.8); ALT/SGPT 38 U/L (7-56); AST/SGOT 30 U/L (14-36); BLOOD UREA NITROGEN 16 mg/dL (7-21); CALCIUM 9.7 mg/dL (8.4-10.5); GFR NON-AFRICAN AMERICAN > 60
[2017-09-18] MEDS: diltiaZEM 120 mg/24 Hours CD Cap PO SCH (20:55)
[2017-09-19] MEDS: guaiFENesin DM 100 mg-10 mg/5 ml UD PO PRN ×3 (00:43→14:45)
[2017-09-19] MEDS: Levalbuterol 0.63 MG/3 ML Inhal Soln UD IH SCH ×4 (05:05→15:18)
[2017-09-19] MEDS: Pantoprazole 40 mg EC Tab PO SCH (06:04)
[2017-09-19] MEDS: Levalbuterol 0.63 MG/3 ML Inhal Soln UD IH PRN (06:14)
[2017-09-19 07:15] LABS: INR 1.06 (0.93-1.08); PROTHROMBIN TIME 12.2 SECONDS (9.4-12.5)
--- NOTE | 2017-09-19 07:24 | CP.PCM.PN ---
Subjective - Date & Time of Evaluation Date of Evaluation: 09/19/17 Time of Evaluation: 06:10 - Subjective Subjective: Awake,lying in bed, complaints of mild shortness of breath upon waking up Reason for consultation and follow up: Cardiac evaluation for shortness of breath,history of atrial fibrillation on coumadin, COPD, diastolic CHF, anxiety, hypertension Seen and examined by me and Dr. Mendez Objective - Vital Signs/Intake and Output Vital Signs (last 24 hours): Temp Pulse Resp BP Pulse Ox 98 F 82 20 128/82 97 09/18/17 14:00 09/18/17 20:55 09/18/17 14:00 09/18/17 20:55 09/18/17 14:00 Intake and Output: 09/19/17 09/19/17 06:59 18:59 Intake Total 960 Balance 960 - Medications Medications: Current Medications Acetaminophen (Tylenol 325mg Tab) 650 mg PO Q6H PRN PRN Reason: Headache Last Admin: 09/18/17 20:55 Dose: 650 mg Alprazolam (Xanax) 0.5 mg PO TID PRN; Protocol PRN Reason: Anxiety Last Admin: 09/18/17 12:13 Dose: 0.5 mg Atorvastatin Calcium (Lipitor) 10 mg PO DIN [facility] Last Admin: 09/18/17 17:17 Dose: 10 mg Benzocaine/Menthol (Cepacol Sore Throat) 1 david MT Q2H PRN PRN Reason: Sore Throat Last Admin: 09/17/17 21:20 Dose: 1 david Digoxin (Lanoxin) 0.25 mg PO 1400 [facility] Last Admin: 09/18/17 17:17 Dose: 0.25 mg Diltiazem HCl (Cardizem Cd) 120 mg PO 2000 [facility] Last Admin: 09/18/17 20:55 Dose: 120 mg Furosemide (Lasix) 40 mg IV DAILY [facility] Last Admin: 09/18/17 10:08 Dose: 40 mg Guaifenesin/Dextromethorphan (Robitussin Dm) 5 ml PO Q4H PRN PRN Reason: Cough Last Admin: 09/19/17 06:03 Dose: 5 ml Levalbuterol HCl (Xopenex) 0.63 mg IH Q2H PRN PRN Reason: Shortness of Breath Last Admin: 09/19/17 06:14 Dose: 0.63 mg Levalbuterol HCl (Xopenex) 0.63 mg IH [id number] [facility] Last Admin: 09/19/17 07:12 Dose: 0.63 mg Lidocaine HCl (Xylocaine 2% (Uro-Jet)) 1 ea TOP DAILY [facility] Last Admin: 09/17/17 11:03 Dose: Not Given Lisinopril (Zestril) 10 mg PO DAILY [facility] Last Admin: 09/18/17 10:09 Dose: 10 mg Lorazepam (Ativan) 1 mg IVP Q6H PRN; Protocol PRN Reason: Anxiety Stop: 09/21/17 23:59 Pantoprazole Sodium (Protonix Ec Tab) 40 mg PO 0600 [facility] Last Admin: 09/19/17 06:04 Dose: 40 mg Polyethylene Glycol (Miralax) 17 gm PO DAILY [facility] Last Admin: 09/18/17 10:10 Dose: 17 gm Prednisone (Prednisone Tab) 40 mg PO DAILY [facility] Last Admin: 09/18/17 10:08 Dose: 40 mg Sertraline HCl (Zoloft) 50 mg PO DAILY [facility] Last Admin: 09/18/17 10:10 Dose: 50 mg Warfarin Sodium (Coumadin) 3 mg PO 1800 [facility] PRN Reason: Protocol Warfarin Sodium (Coumadin) 5 mg PO 1800 [facility] PRN Reason: Protocol Stop: 09/19/17 23:59 Last Admin: 09/18/17 17:18 Dose: 5 mg - Labs Labs: 09/18/17 17:14 09/18/17 17:14 PT 12.2 SECONDS (9.4-12.5) 09/19/17 06:30 INR 1.06 (0.93-1.08) 09/19/17 06:30 APTT 29.6 Seconds (25.1-36.5) 09/18/17 06:47 - Constitutional Appears: No Acute Distress - Eye Exam Eye Exam: Normal appearance - ENT Exam ENT Exam: Mucous Membranes Moist - Respiratory Exam Respiratory Exam: Decreased Breath Sounds, Wheezes, NORMAL BREATHING PATTERN - Cardiovascular Exam Cardiovascular Exam: +S1, +S2 - GI/Abdominal Exam GI & Abdominal Exam: Soft, Normal Bowel Sounds - Extremities Exam Extremities Exam: Normal Capillary Refill - Neurological Exam Neurological Exam: Alert, Awake, Oriented x3 - Psychiatric Exam Psychiatric exam: Anxious - Skin Skin Exam: Normal Color, Warm Assessment and Plan - Assessment and Plan (Free Text) Assessment: A 72 year old female who came in to the ER due to shortness of breath.History of atrial fibrillation on coumadin, COPD, diastolic CHF, anxiety, hypertension, Robotic assisted Left VATS with wedge resection and lymph node biopsy 06/2015, polypectomy,Smokes 3-4 cigs a day. Mild exacerbation of congestive heart failure for this admission,severe anxiety, subtherapeutic INR. MUGA scan done yesterday-LVEF 50%,Normal RV,Akinetic dilated right atrium suggestive of atrial fibrillation Plan: Mild anxiety today, PRN Xanax Mild shortness of breath with wheezing-nebulizer treatment given Continue Coumadin, Digoxin and Cardizem for Afib Cardiac status stable Controlled heart rate and blood pressure Continue current treatment Continue current medications Will follow up Plan and treatment discussed with Dr. Mendez
[2017-09-19 08:27] VITALS: BP 162/97; PULSE 85; TEMP 97.6; O2SAT 95
[2017-09-19] MEDS: POLYETHYLENE GLYCOL 3350 17 GM/Dose PACKET PO SCH (10:01)
--- NOTE | 2017-09-19 14:36 | CP.PCM.DIS ---
Addendum entered and electronically signed by Valentino Singh DO 09/19/17 15:58: Instructed patient to take Coumadin 3mg by mouth at night upon discharge. Patient instructed to follow up with her PMD Dr. Andrea Casas on Sunday. Patient to call and make appointment. Patient understood instructions and was able to recite them back to physician. Original Note: <Valentino Sinhg - Last Filed: 09/19/17 14:33> Provider - Provider Date of Admission: 09/17/17 12:40 Attending physician: Mak Sparrow MD Primary care physician: Andrea Casas MD Consults: Cardiology: Dr. Mendez Time Spent in preparation of Discharge (in minutes): 45 Diagnosis - Discharge Diagnosis (1) Chest pain Status: Resolved (2) Anxiety Status: Chronic (3) Atrial fibrillation Status: Chronic (4) CHF (congestive heart failure) Status: Chronic (5) COPD (chronic obstructive pulmonary disease) Status: Chronic (6) COPD exacerbation Status: Chronic Hospital Course - Lab Results Lab Results: Most Recent Lab Values WBC 10.4 10^3/ul (4.5-11.0) 09/18/17 17:14 RBC 4.88 10^6/uL (3.5-6.1) 09/18/17 17:14 Hgb 14.6 g/dL (12.0-16.0) 09/18/17 17:14 Hct 41.7 % (36.0-48.0) 09/18/17 17:14 MCV 85.5 fl (80.0-105.0) 09/18/17 17:14 MCH 29.9 pg (25.0-35.0) 09/18/17 17:14 MCHC 35.0 g/dl (31.0-37.0) 09/18/17 17:14 RDW 14.1 % (11.5-14.5) 09/18/17 17:14 Plt Count 308 10^3/uL (120.0-450.0) 09/18/17 17:14 MPV 8.8 fl (7.0-11.0) 09/18/17 17:14 Gran % 88.3 % (50.0-68.0) H 09/18/17 17:14 Lymph % (Auto) 8.2 % (22.0-35.0) L 09/18/17 17:14 [place] % (Auto) 3.5 % (1.0-6.0) 09/18/17 17:14 Eos % (Auto) 0.0 % (1.5-5.0) L 09/18/17 17:14 Baso % (Auto) 0.0 % (0.0-3.0) 09/18/17 17:14 Gran # 9.16 (1.4-6.5) H 09/18/17 17:14 Lymph # (Auto) 0.9 (1.2-3.4) L 09/18/17 17:14 [place] # (Auto) 0.4 (0.1-0.6) 09/18/17 17:14 Eos # (Auto) 0.0 (0.0-0.7) 09/18/17 17:14 Baso # (Auto) 0.00 K/mm3 (0.0-2.0) 09/18/17 17:14 Neutrophils % (Manual) 88 % (50.0-70.0) H 09/16/17 06:30 Band Neutrophils % 6 % (0-2) H 09/16/17 06:30 Lymphocytes % (Manual) 4 % (22.0-35.0) L 09/16/17 06:30 Monocytes % (Manual) 1 % (1.0-6.0) 09/16/17 06:30 Eosinophils % (Manual) 1 % (0.0-3.0) 09/16/17 06:30 Platelet Evaluation Normal (NORMAL) 09/16/17 06:30 PT 12.2 SECONDS (9.4-12.5) 09/19/17 06:30 INR 1.06 (0.93-1.08) 09/19/17 06:30 APTT 29.6 Seconds (25.1-36.5) 09/18/17 06:47 Sodium 131 mmol/L (132-148) L 09/18/17 17:14 Potassium 5.0 mmol/L (3.6-5.0) 09/18/17 17:14 Chloride 88 mmol/L (98-107) L 09/18/17 17:14 Carbon Dioxide 31 mmol/L (21-33) 09/18/17 17:14 Anion Gap 16 (10-20) 09/18/17 17:14 BUN 16 mg/dL (7-21) 09/18/17 17:14 Creatinine 0.5 mg/dl (0.7-1.2) L 09/18/17 17:14 Est GFR ( Amer) > 60 09/18/17 17:14 Est GFR (Non-Af Amer) > 60 09/18/17 17:14 POC Glucose (mg/dL) 104 mg/dL (65-110) 09/17/17 07:16 Random Glucose 127 mg/dL (70-110) H 09/18/17 17:14 Hemoglobin A1c 5.7 % (4.2-6.5) 09/17/17 06:44 Calcium 9.7 mg/dL (8.4-10.5) 09/18/17 17:14 Phosphorus 3.3 mg/dL (2.5-4.5) 09/19/17 06:30 Magnesium 1.8 mg/dL (1.7-2.2) 09/18/17 17:14 Total Bilirubin 0.5 mg/dL (0.2-1.3) 09/18/17 17:14 AST 30 U/L (14-36) 09/18/17 17:14 ALT 38 U/L (7-56) 09/18/17 17:14 Alkaline Phosphatase 56 U/L (38-126) 09/18/17 17:14 Lactate Dehydrogenase 487 U/L (333-699) 09/15/17 19:50 Total Creatine Kinase 152 U/L (35-230) 09/15/17 19:50 Troponin I < 0.01 ng/mL 09/16/17 12:21 NT-Pro-B Natriuret Pep 1230 pg/mL (0-450) H 09/17/17 09:30 Total Protein 6.9 g/dL (5.8-8.3) 09/18/17 17:14 Albumin 4.2 g/dL (3.0-4.8) 09/18/17 17:14 Globulin 2.7 gm/dL 09/18/17 17:14 Albumin/Globulin Ratio 1.5 (1.1-1.8) 09/18/17 17:14 Triglycerides 57 mg/dL (35-160) 09/17/17 06:44 Cholesterol 139 mg/dL (130-200) 09/17/17 06:44 LDL Cholesterol Direct 35 mg/dL (0-129) 09/17/17 06:44 HDL Cholesterol 85 mg/dL (29-60) H 09/17/17 06:44 TSH 3rd Generation 0.49 mIU/mL (0.46-4.68) 09/17/17 06:44 Digoxin 0.7 ng/mL (0.8-2.0) L 09/15/17 22:10 - Hospital Course Hospital Course: 72 year old female with past medical history of atrial fibrillation on coumadin , COPD, diastolic CHF, anxiety, HTN presented to [facility] for worsening shortness of breath and chest pain. Patient was evaluated in ED and found to have chest xray showing coarsened increased interstitial marking with possible underlying interstitial fibrosis, both medial lung apices are partially obscured by overlying mandible and facial soft tissue artifact. Patient also had EKG done showing atrial fibrillation, possible anterior infarct. Patient was also found to be supratheraputic INR on admission. Patient Coumadin was held and daily INR' s. Cardiology was consulted and evaluated the patient with recommendations to continue lasix, digoxin, 1 dose of vitamin K and MUGA scan. MUGA scan showing LVEF 56%, normal RV wall motion, akinetic dilated right atrium is suggestive of atrial fibrillation. Patient INR was monitored which became sub-therapeutic during stay. Patient was restarted on Coumadin 3mg by Dr. Mendez with cardiology with plan to follo w up with PMD for recheck in INR. Patient was given scheduled breathing treatments and IV steroids with improvement in her breathing status. Patient was seen and evaluated by physical therapy with recommendations for TCU upon discharge. Patient requested to be discharged home without physical therapy. Discharge planning including medication reconciliation , outpatient follow up and smoking cessation were discussed. Patent was in understanding and in agreement. - Date & Time of H&P Date of H&P: 09/15/17 Time of H&P: 20:53 Discharge Exam - Head Exam Head Exam: ATRAUMATIC, NORMAL INSPECTION, NORMOCEPHALIC - Eye Exam Eye Exam: EOMI, PERRL - Neck Exam Neck exam: Full Rom - Respiratory Exam Respiratory Exam: Decreased Breath Sounds, Wheezes, NORMAL BREATHING PATTERN - Cardiovascular Exam Cardiovascular Exam: REGULAR RHYTHM, +S1, +S2 - GI/Abdominal Exam GI & Abdominal Exam: Normal Bowel Sounds, Soft. absent: Tenderness - Extremities Exam Extremities exam: normal capillary refill, pedal edema (trace bilateral ) - Neurological Exam Neurological exam: Alert, CN II-XII Intact, Normal Gait, Oriented x3, Reflexes Normal - Psychiatric Exam Psychiatric exam: Anxious - Skin Skin Exam: Dry, Intact Discharge Plan - Discharge Medications Prescriptions: Levalbuterol HCl [Levalbuterol] 1.25 mg IH Q6H 5 Days #20 ml predniSONE [predniSONE Tab] See Taper PO DAILY #9 tab Warfarin [Coumadin] 3 mg PO 1800 30 Days #30 tab - Follow Up Plan Condition: GOOD Disposition: HOME/ ROUTINE Instructions: COPD Including Emphysema (DC), Heart Failure, Adult (DC) Additional Instructions: Follow up with PMD Dr. Casas on Sunday for INR check and hospital discharge follow up Follow up with Dr. Lee upon discharge for medication refill Take medications as prescribed to you - Coumadin 3mg PO Daily Return to ED if you experience shortness of breath, chest pain, persistent fever , nausea, vomiting Smoking cessation advised and counseling offered Referrals: Andrea Casas MD [Primary Care Provider] - <Fabio Walters - Last Filed: 09/19/17 16:09> Provider - Provider Date of Admission: 09/17/17 12:40 Attending physician: Mak Sparrow MD Primary care physician: Andrea Casas MD Hospital Course - Lab Results Lab Results: Most Recent Lab Values WBC 10.4 10^3/ul (4.5-11.0) 09/18/17 17:14 RBC 4.88 10^6/uL (3.5-6.1) 09/18/17 17:14 Hgb 14.6 g/dL (12.0-16.0) 09/18/17 17:14 Hct 41.7 % (36.0-48.0) 09/18/17 17:14 MCV 85.5 fl (80.0-105.0) 09/18/17 17:14 MCH 29.9 pg (25.0-35.0) 09/18/17 17:14 MCHC 35.0 g/dl (31.0-37.0) 09/18/17 17:14 RDW 14.1 % (11.5-14.5) 09/18/17 17:14 Plt Count 308 10^3/uL (120.0-450.0) 09/18/17 17:14 MPV 8.8 fl (7.0-11.0) 09/18/17 17:14 Gran % 88.3 % (50.0-68.0) H 09/18/17 17:14 Lymph % (Auto) 8.2 % (22.0-35.0) L 09/18/17 17:14 [place] % (Auto) 3.5 % (1.0-6.0) 09/18/17 17:14 Eos % (Auto) 0.0 % (1.5-5.0) L 09/18/17 17:14 Baso % (Auto) 0.0 % (0.0-3.0) 09/18/17 17:14 Gran # 9.16 (1.4-6.5) H 09/18/17 17:14 Lymph # (Auto) 0.9 (1.2-3.4) L 09/18/17 17:14 [place] # (Auto) 0.4 (0.1-0.6) 09/18/17 17:14 Eos # (Auto) 0.0 (0.0-0.7) 09/18/17 17:14 Baso # (Auto) 0.00 K/mm3 (0.0-2.0) 09/18/17 17:14 Neutrophils % (Manual) 88 % (50.0-70.0) H 09/16/17 06:30 Band Neutrophils % 6 % (0-2) H 09/16/17 06:30 Lymphocytes % (Manual) 4 % (22.0-35.0) L 09/16/17 06:30 Monocytes % (Manual) 1 % (1.0-6.0) 09/16/17 06:30 Eosinophils % (Manual) 1 % (0.0-3.0) 09/16/17 06:30 Platelet Evaluation Normal (NORMAL) 09/16/17 06:30 PT 12.2 SECONDS (9.4-12.5) 09/19/17 06:30 INR 1.06 (0.93-1.08) 09/19/17 06:30 APTT 29.6 Seconds (25.1-36.5) 09/18/17 06:47 Sodium 131 mmol/L (132-148) L 09/18/17 17:14 Potassium 5.0 mmol/L (3.6-5.0) 09/18/17 17:14 Chloride 88 mmol/L (98-107) L 09/18/17 17:14 Carbon Dioxide 31 mmol/L (21-33) 09/18/17 17:14 Anion Gap 16 (10-20) 09/18/17 17:14 BUN 16 mg/dL (7-21) 09/18/17 17:14 Creatinine 0.5 mg/dl (0.7-1.2) L 09/18/17 17:14 Est GFR ( Amer) > 60 09/18/17 17:14 Est GFR (Non-Af Amer) > 60 09/18/17 17:14 POC Glucose (mg/dL) 104 mg/dL (65-110) 09/17/17 07:16 Random Glucose 127 mg/dL (70-110) H 09/18/17 17:14 Hemoglobin A1c 5.7 % (4.2-6.5) 09/17/17 06:44 Calcium 9.7 mg/dL (8.4-10.5) 09/18/17 17:14 Phosphorus 3.3 mg/dL (2.5-4.5) 09/19/17 06:30 Magnesium 1.8 mg/dL (1.7-2.2) 09/18/17 17:14 Total Bilirubin 0.5 mg/dL (0.2-1.3) 09/18/17 17:14 AST 30 U/L (14-36) 09/18/17 17:14 ALT 38 U/L (7-56) 09/18/17 17:14 Alkaline Phosphatase 56 U/L (38-126) 09/18/17 17:14 Lactate Dehydrogenase 487 U/L (333-699) 09/15/17 19:50 Total Creatine Kinase 152 U/L (35-230) 09/15/17 19:50 Troponin I < 0.01 ng/mL 09/16/17 12:21 NT-Pro-B Natriuret Pep 1230 pg/mL (0-450) H 09/17/17 09:30 Total Protein 6.9 g/dL (5.8-8.3) 09/18/17 17:14 Albumin 4.2 g/dL (3.0-4.8) 09/18/17 17:14 Globulin 2.7 gm/dL 09/18/17 17:14 Albumin/Globulin Ratio 1.5 (1.1-1.8) 09/18/17 17:14 Triglycerides 57 mg/dL (35-160) 09/17/17 06:44 Cholesterol 139 mg/dL (130-200) 09/17/17 06:44 LDL Cholesterol Direct 35 mg/dL (0-129) 09/17/17 06:44 HDL Cholesterol 85 mg/dL (29-60) H 09/17/17 06:44 TSH 3rd Generation 0.49 mIU/mL (0.46-4.68) 09/17/17 06:44 Digoxin 0.7 ng/mL (0.8-2.0) L 09/15/17 22:10 Attending/Attestation - Attestation I have personally seen and examined this patient.: Yes I have fully participated in the care of the patient.: Yes I have reviewed all pertinent clinical information, including history, physical exam and plan: Yes Notes (Text): 09/19/17 16:05 72 year old female with past medical history of afib on coumadin, COPD, diastolic CHF and hypertension who presented with complaint of shortness of breath. She was started on steroids for COPD exacerbation and lasix for CHF. Her symptoms improved and her steroids were tapered. Her INR was initially supratherapeutic and her coumadin was initially held and resumed yesterday. Patient was seen by PT and ambulating. Patient is discharged home to follow up with her pmd and cardiology. Monitor INR closely with pmd/cardiology to adjust coumadin accordingly. Fabio Walters MD Hospitalist.
[2017-09-19] MEDS: Digoxin 250 mcg (0.25 mg) Tab PO SCH (14:46)
[2017-09-19 14:51] VITALS: PULSE 72
== END 2017-09-19 16:00 | disposition home health service (06) | DRG 191 ==
LOC: ED 18:54 → ERH 21:05 → 2RNO 23:36 → OBSVTOIN 09-17 12:40 → 5RNO 09-17 15:59
PROVIDERS: ADMIT Internal Medicine; ATTEND Internal Medicine
DX: J44.1 Chronic obstructive pulmonary disease with (acute) exacerbation (principal); I50.32 Chronic diastolic (congestive) heart failure; I42.9 Cardiomyopathy, unspecified; I11.0 Hypertensive heart disease with heart failure; I48.2 Chronic atrial fibrillation; I25.10 Atherosclerotic heart disease of native coronary artery without angina pectoris; I08.3 Combined rheumatic disorders of mitral, aortic and tricuspid valves; F17.200 Nicotine dependence, unspecified, uncomplicated; R07.9 Chest pain, unspecified; E83.42 Hypomagnesemia; E78.5 Hyperlipidemia, unspecified; F41.9 Anxiety disorder, unspecified; K59.00 Constipation, unspecified; R79.1 Abnormal coagulation profile; Z79.01 Long term (current) use of anticoagulants; Z79.899 Other long term (current) drug therapy

== ENCOUNTER 2017-10-22 10:15 | Emergency (ER) | payer MEDICARE, OTHER ==
[2017-10-22 10:16] VITALS: PULSE 72
[2017-10-22 10:23] VITALS: RESP 18; BMI 25.0
[2017-10-22] MEDS ORDERED: Levalbuterol 1.25 MG/3 ML Inhal Soln UD IH STA ×3 (10:23→11:04)
--- NOTE | 2017-10-22 10:40 | ED PDOC ---
Arrival/HPI - General Time Seen by Provider: 10/22/17 10:16 Historian: Patient - History of Present Illness Narrative History of Present Illness (Text): 10/22/17 10:31 72yo female with pmhx of CHF, COPD, Afib, who present with complaint of SOB, nonproductive cough, wheezing x weeks. States she called her PMD today for antibiotics and was referred to ED for chest xray. She denies chest pain, LE edema, calf pain, dizziness, nausea, sick contact, travel, fever, chills, any other complaint. She report history of hospital admissions secondary to COPD. Never intubated. Past Medical History - Provider Review Nursing Documentation Reviewed: Yes - Infectious Disease Hx of Infectious Diseases: None - Cardiac Hx Cardiac Disorders: Yes Hx Atrial Fibrillation: Yes Hx Congestive Heart Failure: Yes Hx Hypertension: Yes - Pulmonary Hx Respiratory Disorders: Yes Hx Chronic Obstructive Pulmonary Disease (COPD): Yes - Neurological Hx Dizziness: Yes - HEENT Hx HEENT Disorder: No - Renal Hx Renal Disorder: No - Endocrine/Metabolic Hx Endocrine Disorders: No - Hematological/Oncological Hx Blood Disorders: No - Integumentary Hx Dermatological Disorder: No - Musculoskeletal/Rheumatological Hx Falls: Yes - Gastrointestinal Hx Gastrointestinal Disorders: Yes - Genitourinary/Gynecological Hx Genitourinary Disorders: No - Psychiatric Hx Psychophysiologic Disorder: Yes Hx Anxiety: Yes Hx Depression: Yes Hx Substance Use: No - Surgical History Hx Cardiac Catheterization: Yes (X1) Other/Comment: robotic left lower wedge resection and lymphaderectomy 06/2015, polypectomy - Anesthesia Hx Anesthesia: Yes Hx Anesthesia Reactions: No Hx Malignant Hyperthermia: No - Suicidal Assessment Feels Threatened In Home Enviroment: No Family/Social History - Physician Review Nursing Documentation Reviewed: Yes Family/Social History: Unknown Family HX Smoking Status: Current Some Days Smoker Hx Alcohol Use: No Hx Substance Use: No Allergies/Home Meds Allergies/Adverse Reactions: Allergies azithromycin [From Zithromax] Adverse Reaction (Intermediate, Verified 10/22/17 10:22) RASH "JUST DOES NOT WORK" Review of Systems - Physician Review All systems were reviewed & negative as marked: Yes - Review of Systems Constitutional: Normal Eyes: Normal ENT: Normal Respiratory: SOB, Cough, Wheezing. absent: Sputum Cardiovascular: Normal Gastrointestinal: Normal Genitourinary Female: Normal Musculoskeletal: Normal Skin: Normal Neurological: Normal Endocrine: Normal Hemo/Lymphatic: Normal Psychiatric: Normal Physical Exam Vital Signs Reviewed: Yes Vital Signs Temp Pulse Resp BP Pulse Ox 10/22/17 13:11 98.1 F 92 H 18 128/56 L 96 10/22/17 13:10 98.1 F 92 H 18 128/56 L 96 10/22/17 12:21 123/49 L 10/22/17 12:19 92 H 18 123/51 L 95 10/22/17 10:25 18 98 10/22/17 10:22 98.3 F 93 H 18 156/75 H 98 10/22/17 10:18 98.3 F 97 H 20 129/89 97 Temperature: Afebrile Blood Pressure: Normal Pulse: Regular Respiratory Rate: Normal Appearance: Positive for: Well-Appearing, Non-Toxic, Comfortable Pain Distress: None Mental Status: Positive for: Alert and Oriented X 3 - Systems Exam Head: Present: Atraumatic, Normocephalic Pupils: Present: PERRL Extroacular Muscles: Present: EOMI Conjunctiva: Present: Normal Mouth: Present: Moist Mucous Membranes Neck: Present: Normal Range of Motion Respiratory/Chest: Present: Good Air Exchange, Wheezes (Diffuse expiratory wheeze), Decreased Breath Sounds (Diffusely). No: Respiratory Distress, Accessory Muscle Use, Rales, Retracting, Rhonchi, Tachypneic Cardiovascular: Present: Regular Rate and Rhythm, Normal S1, S2. No: Murmurs Abdomen: No: Tenderness, Distention, Peritoneal Signs Back: Present: Normal Inspection Upper Extremity: Present: Normal Inspection. No: Cyanosis, Edema Lower Extremity: Present: Normal Inspection. No: Edema Neurological: Present: GCS=15, CN II-XII Intact, Speech Normal Skin: Present: Warm, Dry, Normal Color. No: Rashes Psychiatric: Present: Alert, Oriented x 3, Normal Insight, Normal Concentration Medical Decision Making ED Course and Treatment: 10/22/17 20:31 PT presented for stated history. She was in mild respiratory distress on arrival. She was treated with Xopenex and Solu medrol. On re evaluation she still had mild wheezing, but states she have wheeze chronically. She ambulated and spoke in full sentence without distress. she was DC home with Prednisone. she have inhaler at home. CXR NAD EKG Afib @90bpm. - Lab Interpretations Lab Results: 10/22/17 10:30 10/22/17 10:30 Lab Results 10/22/17 12:20: pCO2 41, pO2 57.0 L, HCO3 27.2, ABG pH 7.43, ABG Total CO2 28.5 H, ABG O2 Saturation 94.1 L, ABG O2 Content 16.8, ABG Base Excess 2.6, ABG Hemoglobin 13.3, ABG Carboxyhemoglobin 3.4 H, POC ABG HHb (Measured) 5.6 H, ABG Methemoglobin 1.1, ABG O2 Capacity 17.9, Hgb O2 Saturation 90.0 L, FiO2 21.0 10/22/17 10:30: Sodium 136, Chloride 92 L, Potassium 4.4, Carbon Dioxide 32, Anion Gap 16, BUN 7, Creatinine 0.5 L, Est GFR ( Amer) > 60, Est GFR (Non -Af Amer) > 60, Random Glucose 90, Calcium 9.7, Magnesium 1.4 L, Total Bilirubin 0.7, AST 34, ALT 33, Alkaline Phosphatase 64, Lactate Dehydrogenase 576, Total Creatine Kinase 151, Troponin I < 0.01, NT-Pro-B Natriuret Pep 1700 H , Total Protein 7.8, Albumin 4.8, Globulin 3.0, Albumin/Globulin Ratio 1.6 10/22/17 10:30: pO2 27 L, VBG pH 7.29 L, VBG pCO2 71.0 H*, VBG HCO3 34.1 H, VBG Total CO2 36.3 H, VBG O2 Sat (Calc) 53.4, VBG Base Excess 5.1 H, VBG Potassium 4.2, Sodium 133.0, Chloride 95.0 L, Glucose 88, Lactate 1.6, FiO2 21.0, Venous Blood Potassium 4.2 10/22/17 10:30: PT 38.0, INR 3.23 H, APTT 53.3 10/22/17 10:30: WBC 7.9 D, RBC 4.61, Hgb 14.0, Hct 40.8, MCV 88.5 D, MCH 30.4 , MCHC 34.3, RDW 14.5, Plt Count 306, MPV 8.6, Gran % 76.2 H, Lymph % (Auto) 15.5 L, [place] % (Auto) 6.8 H, Eos % (Auto) 1.0 L, Baso % (Auto) 0.5, Gran # 6.04 , Lymph # (Auto) 1.2, [place] # (Auto) 0.5, Eos # (Auto) 0.1, Baso # (Auto) 0.04 - RAD Interpretation Radiology Orders: 10/22/17 10:24 CHEST PORTABLE [RAD] Stat - Medication Orders Current Medication Orders: Discontinued Medications Furosemide (Lasix) 20 mg IVP STAT STA Stop: 10/22/17 11:57 Last Admin: 10/22/17 12:21 Dose: 20 mg MAR Blood Pressure Document 10/22/17 12:21 [facility] (Rec: 10/22/17 12:22 [facility] [id number]) Blood Pressure Blood Pressure (100/60-150/90) 123/49 IVP Administration Document 10/22/17 12:21 [facility] (Rec: 10/22/17 12:22 [facility] [id number]) Charges for Administration # of IVP Administrations 1 Levalbuterol HCl (Xopenex) 1.25 mg IH STAT STA Stop: 10/22/17 10:24 Last Admin: 10/22/17 10:51 Dose: 1.25 mg Levalbuterol HCl (Xopenex) 1.25 mg IH STAT STA Stop: 10/22/17 11:04 Last Admin: 10/22/17 11:11 Dose: 1.25 mg Levalbuterol HCl (Xopenex) 1.25 mg IH STAT STA Stop: 10/22/17 11:05 Last Admin: 10/22/17 11:27 Dose: 1.25 mg Methylprednisolone (Solu-Medrol) 125 mg IVP STAT STA Stop: 10/22/17 10:24 Last Admin: 10/22/17 10:51 Dose: 125 mg IVP Administration Document 10/22/17 10:51 [facility] (Rec: 10/22/17 10:51 [facility] [id number]) Charges for Administration # of IVP Administrations 1 Disposition/Present on Arrival - Present on Arrival Any Indicators Present on Arrival: No History of DVT/PE: No History of Uncontrolled Diabetes: No Urinary Catheter: No History of Decub. Ulcer: No History Surgical Site Infection Following: None - Disposition Have Diagnosis and Disposition been Completed?: Yes Diagnosis: COPD (chronic obstructive pulmonary disease) Disposition: HOME/ ROUTINE Disposition Time: 13:00 Patient Plan: Discharge Condition: STABLE Discharge Instructions (ExitCare): Chronic Obstructive Pulmonary Disease (COPD) , Including Emphysema Additional Instructions: Continue with your inhaler Follow up with your doctor Return to ED for any new or worsening symptoms Prescriptions: Prednisone 50 mg PO DAILY #6 tab Referrals: Andrea Casas MD [Primary Care Provider] - Follow up with primary
--- NOTE | 2017-10-22 10:44 | RAD ---
Date of service: 10/22/2017 HISTORY: SOB COMPARISON: 09/15/2017 FINDINGS: LUNGS: No active pulmonary disease. PLEURA: No significant pleural effusion identified, no pneumothorax apparent. CARDIOVASCULAR: Normal. OSSEOUS STRUCTURES: No significant abnormalities. VISUALIZED UPPER ABDOMEN: Normal. OTHER FINDINGS: None. IMPRESSION: No active disease.
[2017-10-22 11:20] LABS: VENOUS BLOOD GAS BASE EXCESS 5.1 mmol/L (0.0-2.0); VENOUS BLOOD GAS PO2 27 mm/Hg (30-55); VENOUS BLOOD PH 7.29 (7.32-7.43)
[2017-10-22 11:22] LABS: BASO # 0.04 K/mm3 (0.0-2.0); BASO % 0.5 % (0.0-3.0); EOS # 0.1 (0.0-0.7); GRAN # 6.04 (1.4-6.5); GRAN % 76.2 % (50.0-68.0); LYMPH # 1.2 (1.2-3.4); LYMPH % 15.5 % (22.0-35.0); MEAN CELL VOLUME 88.5 fl (80.0-105.0); MEAN CORPUSCULAR HEMOGLOBIN 30.4 pg (25.0-35.0); MEAN CORPUSCULAR HGB CONC 34.3 g/dl (31.0-37.0); MEAN PLATELET VOLUME 8.6 fl (7.0-11.0); MONO # 0.5 (0.1-0.6); MONO % 6.8 % (1.0-6.0); RBC 4.61 10^6/uL (3.5-6.1); RED CELL DISTRIBUTION WIDTH 14.5 % (11.5-14.5); WHITE BLOOD COUNT 7.9 10^3/ul (4.5-11.0)
[2017-10-22 11:27] LABS: INR 3.23 (0.93-1.08)
[2017-10-22 11:37] LABS: ALB/GLOB RATIO 1.6 (1.1-1.8); ALBUMIN 4.8 g/dL (3.0-4.8); ALT/SGPT 33 U/L (7-56); AST/SGOT 34 U/L (14-36); BLOOD UREA NITROGEN 7 mg/dL (7-21); CALCIUM 9.7 mg/dL (8.4-10.5); GFR AFRICAN-AMERICAN > 60; GFR NON-AFRICAN AMERICAN > 60
[2017-10-22 11:45] LABS: B-TYPE NATRIURETIC PEPTIDE 1700 pg/mL (0-450); TROPONIN I < 0.01 ng/mL
[2017-10-22 12:21] VITALS: PULSE 92
[2017-10-22 12:29] LABS: ARTERIAL BLOOD GAS HCO3 27.2 mmol/L (21-28); ARTERIAL BLOOD GAS HEMOGLOBIN 13.3 g/dL (11.7-17.4); ARTERIAL BLOOD GAS O2 CAPACITY 17.9 mL/dl (16-24); ARTERIAL BLOOD GAS O2 CONTENT 16.8 ML/dl (15-23); ARTERIAL BLOOD GAS O2 SAT 94.1 % (95-98); ARTERIAL BLOOD GAS PCO2 41 mm/Hg (35-45); ARTERIAL BLOOD GAS PH 7.43 (7.35-7.45); ARTERIAL BLOOD GAS TCO2 28.5 mmol.L (22-28)
[2017-10-22 13:10] VITALS: BP 128/56; TEMP 98.1; O2SAT 96
--- NOTE | 2017-10-22 14:44 | CARD ---
APPROVED REPORT Date of service: 10/22/2017 EKG Measurement Heart [id number] <Conclusion> Atrial fibrillation Abnormal ECG
[2017-10-24 13:29] LABS: PARTIAL THROMBOPLASTIN TIME 53.3 Seconds (25.1-36.5)
== END 2017-10-22 13:11 | disposition home or self-care (01) ==
LOC: ED 10:15
DX: J44.9 Chronic obstructive pulmonary disease, unspecified (principal); I11.0 Hypertensive heart disease with heart failure; I50.9 Heart failure, unspecified; I48.91 Unspecified atrial fibrillation; F17.210 Nicotine dependence, cigarettes, uncomplicated
CPT/HCPCS: 71045; 80053; 82550; 82803; 83615; 83735; 83880; 84484; 85025; 85610; 85730; 87040; 93005; 94640; 96374; 96375; 99283; J1940; J2930

== ENCOUNTER 2017-10-24 05:16 | Inpatient (IN) | payer MEDICARE, OTHER ==
[2017-10-24] MEDS: Albuterol-Ipratrop 3 mg / 0.5 (3 ml) UD IH SCH ×3 (05:30→05:57)
[2017-10-24] MEDS ORDERED: MethylPREDNISolone 40 mg Vial IVP STA (05:30)
[2017-10-24] MEDS ORDERED: levoFLOXacin 750 mg in D5W 150 ML BAG IVPB STA (05:31)
--- NOTE | 2017-10-24 05:33 | ED PDOC ---
Arrival/HPI - General Chief Complaint: Shortness Of Breath Time Seen by Provider: 10/24/17 05:29 Historian: Patient, EMS - History of Present Illness Narrative History of Present Illness (Text): 10/24/17 05:31 A 72 year old female, whose past medical history includes, CHF, COPD, A-Fib, is brought into the emergency department via EMS for complaint of 2-3 day duration , worsening shortness of breath and productive cough. As per EMS, patient reported productive sputum. EMS gave patient 1 Albuterol and 1 Atrovent treatment in route to emergency department. Patient denies fevers, chills, headache, dizziness, chest pain, abdominal pain, nausea, vomiting, diarrhea, back pain, neck pain, urinary/bowel changes, or any other complaint. PMD: Dr. Casas Time/Duration: Other (2-3 days) Symptom Onset: Gradual Symptom Course: Worsening Activities at Onset: Rest, Light Context: Home Past Medical History - Provider Review Nursing Documentation Reviewed: Yes - Infectious Disease Hx of Infectious Diseases: None - Cardiac Hx Cardiac Disorders: Yes Hx Atrial Fibrillation: Yes Hx Congestive Heart Failure: Yes Hx Hypertension: Yes - Pulmonary Hx Respiratory Disorders: Yes Hx Chronic Obstructive Pulmonary Disease (COPD): Yes - Neurological Hx Dizziness: Yes - HEENT Hx HEENT Disorder: No - Renal Hx Renal Disorder: No - Endocrine/Metabolic Hx Endocrine Disorders: No - Hematological/Oncological Hx Blood Disorders: No - Integumentary Hx Dermatological Disorder: No - Musculoskeletal/Rheumatological Hx Falls: Yes - Gastrointestinal Hx Gastrointestinal Disorders: Yes - Genitourinary/Gynecological Hx Genitourinary Disorders: No - Psychiatric Hx Psychophysiologic Disorder: Yes Hx Anxiety: Yes Hx Depression: Yes Hx Substance Use: No - Surgical History Hx Cardiac Catheterization: Yes (X1) Other/Comment: robotic left lower wedge resection and lymphaderectomy 06/2015, polypectomy - Anesthesia Hx Anesthesia: Yes Hx Anesthesia Reactions: No Hx Malignant Hyperthermia: No - Suicidal Assessment Feels Threatened In Home Enviroment: No Family/Social History - Physician Review Nursing Documentation Reviewed: Yes Family/Social History: No Known Family HX Smoking Status: Current Some Days Smoker Hx Alcohol Use: No Hx Substance Use: No Allergies/Home Meds Allergies/Adverse Reactions: Allergies azithromycin [From Zithromax] Adverse Reaction (Intermediate, Verified 10/22/17 10:22) RASH "JUST DOES NOT WORK" Review of Systems - Physician Review All systems were reviewed & negative as marked: Yes - Review of Systems Constitutional: absent: Fevers Respiratory: SOB, Cough, Sputum Cardiovascular: absent: Chest Pain Gastrointestinal: absent: Abdominal Pain, Stool Changes, Diarrhea, Nausea, Vomiting Genitourinary Female: absent: Urine Output Changes Musculoskeletal: absent: Back Pain, Neck Pain Neurological: absent: Headache, Dizziness Physical Exam - Physical Exam Narrative Physical Exam (Text): 10/24/17 05:33 Gen: VS reviewed, alert, well developed, well nourished, non-toxic, mild distress. ENT: Normal pharynx. Eye: EOMI, PERRL. Neck: No JVD, supple, no adenopathy. CV: Rapid rate. Irregularly irregular rhythm. Pulm: Tachypnic. Accessory muscle use. Bilateral expiratory wheezing with coarse breath sounds. Fair air exchange. Abd: Soft, non-tender, no guarding, no rebound, no rigidity, normal bowel sounds. Ext: No edema. Skin: Good color, no rash, no cyanosis. Psych: Responds appropriately to questions, normal affect. Neuro: Oriented x 3, CN2-12 intact grossly, motor intact, sensation intact. Vital Signs Reviewed: Yes Vital Signs Temp Pulse Resp BP Pulse Ox 10/24/17 06:17 100 H 26 H 144/75 100 10/24/17 05:18 98.0 F 98 H 24 152/74 H 98 Temperature: Afebrile Blood Pressure: Hypertensive Pulse: Tachycardic Respiratory Rate: Normal Appearance: Positive for: Well-Appearing, Non-Toxic, Comfortable Pain Distress: None Mental Status: Positive for: Alert and Oriented X 3 Medical Decision Making ED Course and Treatment: 10/24/17 05:35 Impression: A 72 year old female presents to the emergency department with a complaint of worsening shortness of breath today. Plan: -- EKG -- Chest X-ray -- Labs -- Blood Culture -- SOLU- Medrol, Levaquin,and Duoneb -- Reassess and disposition Prior Visits: Notes and results from previous visits were reviewed. Patient was last seen in the emergency department on 10/22/17 for a complaint of shortness of breath. Patient was discharged home. Progress Notes: 10/24/17 07:14 patient feel better at this time, respiratory status has improved, repeat lung exam there is mild bilateral exp wheeze with good air exchange bilaterally. patient is able to talk in full sentences and appears less tachypneic. 10/24/17 07:17 patient was seen for progressively worsening sob with cough, clinically consistent with copd exacerbation, patient to be admitted for neb tx and iv abx 10/24/17 07:21 admit accepted by hospitalist, agrees to empirically diurese. - Lab Interpretations Lab Results: 10/24/17 05:20 10/24/17 05:20 Lab Results 10/24/17 05:20: Sodium 125 L, Potassium 4.2, Chloride 84 L, Carbon Dioxide 29, Anion Gap 16, BUN 14, Creatinine 0.7, Est GFR ( Amer) > 60, Est GFR (Non- Af Amer) > 60, Random Glucose 109, Calcium 8.9, Total Bilirubin 0.5, AST 49 H D , ALT 45, Alkaline Phosphatase 52, Troponin I < 0.01, NT-Pro-B Natriuret Pep 3310 H, Total Protein 7.0, Albumin 4.3, Globulin 2.7, Albumin/Globulin Ratio 1.6 10/24/17 05:20: PT 34.2 H, INR 2.91, APTT 46.0 H 10/24/17 05:20: WBC 11.1 H D, RBC 4.37, Hgb 13.1, Hct 37.9, MCV 86.7, MCH 30.0, MCHC 34.6, RDW 14.3, Plt Count 380, MPV 8.4, Gran % 73.7 H, Lymph % (Auto) 17.2 L, Whiteside % (Auto) 8.8 H, Eos % (Auto) 0.2 L, Baso % (Auto) 0.1, Gran # 8.17 H, Lymph # (Auto) 1.9, Whiteside # (Auto) 1.0 H, Eos # (Auto) 0.0, Baso # (Auto) 0.01 I have reviewed the lab results: Yes - RAD Interpretation Radiology Orders: 10/24/17 05:30 CHEST PORTABLE [RAD] Stat - EKG Interpretation EKG Interpretation (Text): 10/24/17 07:01 0518: atrial fib at 100 bpm, nml qrs, nml axis, nonspecific t wave abn Interpreted by ED Physician: Yes Type: 12 lead EKG - Medication Orders Current Medication Orders: Discontinued Medications Albuterol/Ipratropium (Duoneb 3 Mg/0.5 Mg (3 Ml) Ud) 3 ml IH Q15M NORA Stop: 10/24/17 06:01 Last Admin: 10/24/17 05:57 Dose: 3 ml Levofloxacin/Dextrose (Levaquin 750mg) 750 mg IVPB STAT STA PRN Reason: Protocol Stop: 10/24/17 05:32 Last Admin: 10/24/17 05:45 Dose: 750 mg eMAR Start Stop Document 10/24/17 05:45 CNR (Rec: 10/24/17 05:45 CNR [id number]) Intravenous Solution Start Date 10/24/17 Start Time 05:45 Methylprednisolone (Solu-Medrol) 60 mg IVP STAT STA Stop: 10/24/17 05:31 Last Admin: 10/24/17 05:43 Dose: 60 mg IVP Administration Document 10/24/17 05:43 CNR (Rec: 10/24/17 05:45 CNR [id number]) Charges for Administration # of IVP Administrations 1 - Scribe Statement The provider has reviewed the documentation as recorded by the Scribe Anne Velasquez Provider Scribe Attestation: All medical record entries made by the Scribe were at my direction and personally dictated by me. I have reviewed the chart and agree that the record accurately reflects my personal performance of the history, physical exam, medical decision making, and the department course for this patient. I have also personally directed, reviewed, and agree with the discharge instructions and disposition. Disposition/Present on Arrival - Present on Arrival Any Indicators Present on Arrival: No History of DVT/PE: No History of Uncontrolled Diabetes: No Urinary Catheter: No History of Decub. Ulcer: No History Surgical Site Infection Following: None - Disposition Have Diagnosis and Disposition been Completed?: Yes Diagnosis: COPD exacerbation, CHF (congestive heart failure) Disposition: HOSPITALIZED Disposition Time: 07:22 Patient Plan: Admission Condition: FAIR Discharge Instructions (ExitCare): Heart Failure (ED) Referrals: Andrea Casas MD [Primary Care Provider] - Follow up with primary Forms: [employer] (Pashto)
[2017-10-24 05:47] LABS: BASO # 0.01 K/mm3 (0.0-2.0); BASO % 0.1 % (0.0-3.0); EOS % 0.2 % (1.5-5.0); GRAN # 8.17 (1.4-6.5); GRAN % 73.7 % (50.0-68.0); HEMOGLOBIN 13.1 g/dL (12.0-16.0); LYMPH # 1.9 (1.2-3.4); LYMPH % 17.2 % (22.0-35.0); MEAN CELL VOLUME 86.7 fl (80.0-105.0); MEAN CORPUSCULAR HGB CONC 34.6 g/dl (31.0-37.0); MEAN PLATELET VOLUME 8.4 fl (7.0-11.0); MONO % 8.8 % (1.0-6.0); RBC 4.37 10^6/uL (3.5-6.1); RED CELL DISTRIBUTION WIDTH 14.3 % (11.5-14.5); WHITE BLOOD COUNT 11.1 10^3/ul (4.5-11.0)
[2017-10-24 05:55] LABS: INR 2.91; PROTHROMBIN TIME 34.2 SECONDS (9.4-12.5)
[2017-10-24 06:10] LABS: B-TYPE NATRIURETIC PEPTIDE 3310 pg/mL (0-450); TROPONIN I < 0.01 ng/mL
[2017-10-24 06:30] LABS: ALB/GLOB RATIO 1.6 (1.1-1.8); ALBUMIN 4.3 g/dL (3.0-4.8); ALT/SGPT 45 U/L (7-56); AST/SGOT 49 U/L (14-36); BLOOD UREA NITROGEN 14 mg/dL (7-21); CALCIUM 8.9 mg/dL (8.4-10.5); GFR AFRICAN-AMERICAN > 60; GFR NON-AFRICAN AMERICAN > 60
--- NOTE | 2017-10-24 08:34 | CP.PCM.HP ---
<Valentino Singh - Last Filed: 10/24/17 17:06> History of Present Illness - History of Present Illness History of Present Illness: Sean Jarvisjeaneth PGY2 - H&P for Hospitalist service CC: Shortness of breath HPI: 72 year old female with past medical history of Atrial fibrillation on coumadin, COPD, Diastolic Congestive Heart Failure, Anxiety and HTN who presents complaining of progressive shortness of breath and productive cough. Patient was previously hospitalized at [facility] for a supratheraputic INR and COPD one month prior to presentation. Patient was discharged and instructed to follow up with PMD and C Architect. Since her discharge patient slowly began to experience worsening of her shortness of breath and some production of a yellow to brown sputum over the past 2-3 weeks prior to presentation. Patient indicates she has been compliant with her medication and has had one sick contact in her grandchild who was diagnosed with an upper respiratory infection within the past month. Patient denies fever, chills, night sweats, chest pain, abdominal discomfort, diarrhea, constipation. She indicates the distance for which she is able to walk without shortness of breath has diminished over past few weeks. She indicates now that if she gets up to go to the bathroom she become short of breath. 12 point ROS benign other than mentioned in HPI PMH: Atrial fibrillation on coumadin, COPD, Diastolic Congestive Heart Failure, Anxiety, HTN PSH: Robotic assisted Left VATS with wedge resection and lymph node biopsy 2015, polypectomy Social History: Smokes 3-4 cigs a day, denies alcohol or drug use; received her flu shot this year - Lives with granddaughter and daughter FMH: Non-contributory ALL: Azithromycin Meds:Coumadin 3mg, Diltiazem 120mg, Coumadin 5mg, Aldactone 25mg, Zoloft 50mg, Lisinopril 10mg, Lasix 40mg,, Digoxin 0.25mg, Lipitor 10mg, Brovana 15mcg Q12H PMD: Dr. Casas Cardiology: Dr. Mendez Present on Admission - Present on Admission Any Indicators Present on Admission: No Review of Systems - Review of Systems All systems: reviewed and no additional remarkable complaints except (as mentioned in HPI) Past Patient History - Infectious Disease Hx of Infectious Diseases: None - Past Medical History & Family History Past Medical History?: Yes - Past Social History Smoking Status: Current Some Days Smoker - CARDIAC Hx Cardiac Disorders: Yes Hx Atrial Fibrillation: Yes Hx Congestive Heart Failure: Yes Hx Hypertension: Yes - PULMONARY Hx Respiratory Disorders: Yes Hx Chronic Obstructive Pulmonary Disease (COPD): Yes - NEUROLOGICAL Hx Dizziness: Yes - HEENT Hx HEENT Problems: No - RENAL Hx Chronic Kidney Disease: No - ENDOCRINE/METABOLIC Hx Endocrine Disorders: No - HEMATOLOGICAL/ONCOLOGICAL Hx Blood Disorders: No - INTEGUMENTARY Hx Dermatological Problems: No - MUSCULOSKELETAL/RHEUMATOLOGICAL Hx Falls: Yes - GASTROINTESTINAL Hx Gastrointestinal Disorders: Yes - GENITOURINARY/GYNECOLOGICAL Hx Genitourinary Disorders: No - PSYCHIATRIC Hx Psychophysiologic Disorder: Yes Hx Anxiety: Yes Hx Depression: Yes Hx Substance Use: No - SURGICAL HISTORY Hx Cardiac Catheterization: Yes (X1) Other/Comment: robotic left lower wedge resection and lymphaderectomy 06/2015, polypectomy - ANESTHESIA Hx Anesthesia: Yes Hx Anesthesia Reactions: No Hx Malignant Hyperthermia: No Meds Allergies/Adverse Reactions: Allergies Allergy/AdvReac Type Severity Reaction Status Date / Time azithromycin [From Zithromax] AdvReac Intermediate RASH Verified 10/22/17 10:22 Physical Exam - Constitutional Appears: Non-toxic Additional comments: conversational dyspnea - Head Exam Head Exam: ATRAUMATIC, NORMAL INSPECTION, NORMOCEPHALIC - Eye Exam Eye Exam: EOMI, PERRL - ENT Exam ENT Exam: Mucous Membranes Dry - Neck Exam Neck exam: Positive for: Full Rom - Respiratory Exam Respiratory Exam: Decreased Breath Sounds, Rhonchi, Wheezes (expiratory in all lung kim ) - Cardiovascular Exam Cardiovascular Exam: Tachycardia, Irregular Rhythm - GI/Abdominal Exam GI & Abdominal Exam: Normal Bowel Sounds, Soft. absent: Tenderness - Extremities Exam Extremities exam: Positive for: full ROM, normal capillary refill, pedal edema ( +1 bilaterally ) Additional comments: bruising noted on right forearm - Neurological Exam Neurological exam: Alert, CN II-XII Intact, Oriented x3, Reflexes Normal Additional comments: Motor and sensory grossly intact able to move all four extremities past midline No dysmetria appreciated coordination intact - Psychiatric Exam Psychiatric exam: Normal Affect - Skin Skin Exam: Abrasion (right foreram ), Dry, Intact, Warm Results - Vital Signs Recent Vital Signs: Last Vital Signs Temp 98.1 F 10/24/17 08:21 Pulse 101 H 10/24/17 08:21 Resp 18 10/24/17 08:21 BP 129/73 10/24/17 08:21 Pulse Ox 95 10/24/17 08:21 - Labs Result Diagrams: 10/24/17 05:20 10/24/17 05:20 Assessment & Plan - Assessment and Plan (Free Text) Assessment: 72 year old female with past medical history of Atrial fibrillation on coumadin , COPD, Diastolic Congestive Heart Failure, Anxiety and HTN who presented complaining of progressive shortness of breath and productive cough. Patient receiving breathing treatments, IV steroids, and antibiotics for suspected acute exacerbation of COPD. Plan: Acute exacerbation of COPD - Etiology: bacterial vs.viral vs. allergens vs. smoking exposure - Chronic COPD, unknown PFT, CXR showing hyperinflation and suspected pulmonary congestion - Levaquin Daily - Xopenex Q6H wil, Q2H PRN - IV solumedrol 40mg 8H Acute exacerbation of CHF - Diastolic CHF with last known EF of 55-60% (05/2017) - Continue Lasix, Lisinopril, holding aldactone until cardio secondary to last known EF >35% - Cardiology Consulted, f/u recs Atrial Fibrillation - Chronic, rate controlled on coumadin for anticoagulation - Continue coumadin, digoxin for rate controlled - INR theraputic at this time continue to monitor - Replete lytes as necessary - Cardiology consulted Hx of HLD - Continue with statin Hx of Anxiety - Continue with zoloft Tobacco abuse - smoking cessation conducted GI/DVT ppx - Protonix - Coumadin INR theraputic Dispo: upon discharge patient will be scheduled to follow up with her PMD Dr. Victoria Case and plan discussed with attending, Dr. Bogdan Singh PGY2 - Date & Time Date: 10/24/17 Time: 09:00 <Alia Mcfadden R - Last Filed: 10/25/17 16:45> Results - Vital Signs Recent Vital Signs: Last Vital Signs Temp 97.8 F 10/25/17 12:00 Pulse 59 L 10/25/17 12:00 Resp 18 10/25/17 12:00 BP 118/59 L 10/25/17 14:55 Pulse Ox 97 10/25/17 06:00 - Labs Result Diagrams: 10/25/17 05:45 10/25/17 05:45 Labs: Laboratory Results - last 24 hr 0810/25/17 10/25/17 08:30 05:45 05:45 WBC 9.6 RBC 4.36 Hgb 12.9 Hct 37.7 MCV 86.5 MCH 29.6 MCHC 34.2 RDW 14.3 Plt Count 355 MPV 8.4 Gran % 84.9 H Lymph % (Auto) 8.2 L Izard % (Auto) 6.9 H Eos % (Auto) 0.0 L Baso % (Auto) 0.0 Gran # 8.17 H Lymph # (Auto) 0.8 L [place]ard # (Auto) 0.7 H Eos # (Auto) 0.0 Baso # (Auto) 0.00 PT INR Sodium 130 L Potassium 4.3 Chloride 90 L Carbon Dioxide 33 Anion Gap 11 BUN 13 Creatinine 0.5 L Est GFR ( Amer) > 60 Est GFR (Non-Af Amer) > 60 Random Glucose 121 H Hemoglobin A1c Calcium 9.1 Phosphorus 3.5 Magnesium 1.9 Total Bilirubin 0.3 AST 33 ALT 44 Alkaline Phosphatase 51 NT-Pro-B Natriuret Pep Total Protein 6.3 Albumin 3.9 Globulin 2.5 Albumin/Globulin Ratio 1.6 Triglycerides 53 Cholesterol 150 LDL Cholesterol Direct 40 HDL Cholesterol 88 H Procalcitonin < 0.05 L TSH 3rd Generation 10/25/17 10/25/17 10/25/17 05:45 05:45 05:45 WBC RBC Hgb Hct MCV MCH MCHC RDW Plt Count MPV Gran % Lymph % (Auto) Izard % (Auto) Eos % (Auto) Baso % (Auto) Gran # Lymph # (Auto) Izard # (Auto) Eos # (Auto) Baso # (Auto) PT 40.9 H INR 3.47 Sodium Potassium Chloride Carbon Dioxide Anion Gap BUN Creatinine Est GFR ( Amer) Est GFR (Non-Af Amer) Random Glucose Hemoglobin A1c 5.9 Calcium Phosphorus Magnesium Total Bilirubin AST ALT Alkaline Phosphatase NT-Pro-B Natriuret Pep 1890 H Total Protein Albumin Globulin Albumin/Globulin Ratio Triglycerides Cholesterol LDL Cholesterol Direct HDL Cholesterol Procalcitonin TSH 3rd Generation 10/25/17 05:45 WBC RBC Hgb Hct MCV MCH MCHC RDW Plt Count MPV Gran % Lymph % (Auto) Izard % (Auto) Eos % (Auto) Baso % (Auto) Gran # Lymph # (Auto) Izard # (Auto) Eos # (Auto) Baso # (Auto) PT INR Sodium Potassium Chloride Carbon Dioxide Anion Gap BUN Creatinine Est GFR ( Amer) Est GFR (Non-Af Amer) Random Glucose Hemoglobin A1c Calcium Phosphorus Magnesium Total Bilirubin AST ALT Alkaline Phosphatase NT-Pro-B Natriuret Pep Total Protein Albumin Globulin Albumin/Globulin Ratio Triglycerides Cholesterol LDL Cholesterol Direct HDL Cholesterol Procalcitonin TSH 3rd Generation 0.70 Attending/Attestation - Attestation I have personally seen and examined this patient.: Yes I have fully participated in the care of the patient.: Yes I have reviewed all pertinent clinical information: Yes Notes (Text): Patient seen and examined by me at 09:15AM with resident 10/24/17. Case including HPI, physical exam, and assessment and plan discussed with resident. Agree with above with following additions/corrections. Patient is a 72-year-old female with past medical history significant for nonobstructive coronary artery disease, cardiomyopathy, atrial fibrillation maintained on Coumadin, COPD, diastolic congestive heart failure, hypertension, and anxiety that presented to the emergency room with progressive shortness of breath and productive cough. Patient states that she always feels short of breath secondary to her COPD. However over the past 2-3 weeks, she has noticed worsening of her shortness of breath. She states that she also has a cough which she has had for a very long time. However she states that she has noticed recently that her phlegm is "brown and yellow." She states that her grandchild was recently sick. Patient states that her COPD is worsened when it is humid outside. She does not use home oxygen. She states that she tried nebulizer treatments at home without much relief. She does still currently smoke. Patient states that she does see the hospitality host Dr. Mendez. She states that she also takes her medications daily. She denies any chest pain or palpitations. No fevers or chills. No nausea, vomiting, or abdominal pain. No dysuria. No diarrhea or constipation. Patient denies any headaches. Patient does bleed and bruise easily secondary to being on Coumadin. 12 point review systems reviewed by me. Please see HPI. All other systems are negative. Family history: Mom and had a history of cervical cancer. Patient states she did not know her father or his history. Physical exam: Gen: Awake and alert sitting up in bed in no acute distress HEENT: Normocephalic atraumatic. Extraocular muscles intact, pupils equal reactive. Oropharynx is pink and moist, no pharyngeal erythema or exudate appreciated. Neck is supple. Hearing grossly intact. Ears and nose externally unremarkable Cardiovascular: Irregularly irregular rhythm. Tachycardic S1, S2. No murmurs, rubs, or gallops appreciated Pulmonary: Mildly tachypnea when talking. Speaking in full sentences. Positive for wheezing and coarse breath sounds throughout. No rales appreciated. Gastrointestinal: Soft, nontender, nondistended, positive bowel sounds all 4 quadrants, no guarding. Musculoskeletal: Normal range of motion all extremities, no calf tenderness, no edema appreciated Central nervous system: AAO x 3. 5/5 muscle strength all extremities. CN 2-12 grossly intact Dermatologic: Skin warm and dry, ecchymosis right forearm, left lower extremity Assessment and plan:Patient is a 72-year-old female with past medical history significant for nonobstructive coronary artery disease, cardiomyopathy, atrial fibrillation maintained on Coumadin, COPD, diastolic congestive heart failure, hypertension, and anxiety that presented to the emergency room with progressive shortness of breath and productive cough. 1. Acute COPD exacerbation. Placed on nebulizer treatments in budesonide. Solu- Medrol 40 mg IV every 8 hours. Ordered on Levaquin. O2 via nasal cannula as needed. Patient counseled on smoking cessation. 2. Acute on chronic diastolic CHF exacerbation. BNP elevated from baseline. MUGA scan 09/17/2017 showed a preserved EF of 56%. Cardiology consulted, follow- up recommendations. Placed on Lasix 20 mg IV every 12 hours. Continue home lisinopril. Home spironolactone held as patient has a preserved EF, will follow- up with cardiology prior to restarting. 3. Atrial fibrillation. Continue home digoxin and Cardizem. Continue home Coumadin. INR is therapeutic. Monitor INR and adjust Coumadin dose as needed. 4. Nonobstructive coronary artery disease. Cardiomyopathy. No acute issues. Continue home lisinopril, Coumadin, and Lipitor. 5. Hypertension. Continue home Cardizem and lisinopril. Continue Lasix 6. Anxiety. Continue home Zoloft. 7. GI/DVT prophylaxis. Protonix and Coumadin. 8. Patient is a full code Case was discussed in detail with the patient regarding current diagnosis and treatment plan.
--- NOTE | 2017-10-24 09:03 | RAD ---
Date of service: 10/24/2017 HISTORY: chest pain COMPARISON: 10/22/2017 FINDINGS: LUNGS: No active pulmonary disease. PLEURA: No significant pleural effusion identified, no pneumothorax apparent. CARDIOVASCULAR: Normal. OSSEOUS STRUCTURES: No significant abnormalities. VISUALIZED UPPER ABDOMEN: Normal. OTHER FINDINGS: None. IMPRESSION: No active disease.
--- NOTE | 2017-10-24 09:34 | CARD ---
APPROVED REPORT Date of service: 10/24/2017 EKG Measurement Heart [id number] <Conclusion> Atrial fibrillation Possible Anterior infarct, age undetermined Abnormal ECG
[2017-10-24] MEDS: MethylPREDNISolone 40 mg Vial IVP SCH ×2 (14:27→21:22)
[2017-10-24] MEDS: Digoxin 250 mcg (0.25 mg) Tab PO SCH (14:27)
[2017-10-24] MEDS: Levalbuterol 1.25 MG/3 ML Inhal Soln UD IH SCH ×2 (14:36→20:20)
[2017-10-24] MEDS ORDERED: Magnesium 2 gm/50 ml NS 2 GM/50 ML BAG IVPB ONE (17:15)
[2017-10-24] MEDS: Levalbuterol 1.25 MG/3 ML Inhal Soln UD IH PRN (18:40)
[2017-10-24] MEDS: Budesonide 0.25 mg/2 ml Inhal Susp UD IH SCH (20:20)
[2017-10-24] MEDS: diltiaZEM 120 mg/24 Hours CD Cap PO SCH (21:21)
[2017-10-24 23:18] VITALS: BMI 25.4
[2017-10-24] MEDS ORDERED: Pneumococcal 23-Valent Vaccine IM ONE (23:18)
[2017-10-25] MEDS: Levalbuterol 1.25 MG/3 ML Inhal Soln UD IH PRN (00:25)
[2017-10-25] MEDS: Levalbuterol 1.25 MG/3 ML Inhal Soln UD IH SCH ×4 (02:25→19:26)
[2017-10-25] MEDS: MethylPREDNISolone 40 mg Vial IVP SCH ×3 (05:56→23:07)
[2017-10-25 06:56] LABS: GRAN # 8.17 (1.4-6.5); GRAN % 84.9 % (50.0-68.0); HEMOGLOBIN 12.9 g/dL (12.0-16.0); LYMPH # 0.8 (1.2-3.4); LYMPH % 8.2 % (22.0-35.0); MEAN CELL VOLUME 86.5 fl (80.0-105.0); MEAN CORPUSCULAR HEMOGLOBIN 29.6 pg (25.0-35.0); MEAN CORPUSCULAR HGB CONC 34.2 g/dl (31.0-37.0); MEAN PLATELET VOLUME 8.4 fl (7.0-11.0); MONO # 0.7 (0.1-0.6); MONO % 6.9 % (1.0-6.0); RBC 4.36 10^6/uL (3.5-6.1); RED CELL DISTRIBUTION WIDTH 14.3 % (11.5-14.5); WHITE BLOOD COUNT 9.6 10^3/ul (4.5-11.0)
[2017-10-25 07:06] LABS: INR 3.47; PROTHROMBIN TIME 40.9 SECONDS (9.4-12.5)
[2017-10-25 07:14] LABS: LDL CHOLESTEROL 40 mg/dL (0-129)
[2017-10-25 07:27] LABS: ALB/GLOB RATIO 1.6 (1.1-1.8); ALBUMIN 3.9 g/dL (3.0-4.8); ALT/SGPT 44 U/L (7-56); AST/SGOT 33 U/L (14-36); BLOOD UREA NITROGEN 13 mg/dL (7-21); CALCIUM 9.1 mg/dL (8.4-10.5); GFR AFRICAN-AMERICAN > 60; GFR NON-AFRICAN AMERICAN > 60; HDL CHOLESTEROL 88 mg/dL (29-60)
[2017-10-25] MEDS ORDERED: Pantoprazole 40 mg EC Tab PO SCH (07:30)
[2017-10-25] MEDS: Budesonide 0.25 mg/2 ml Inhal Susp UD IH SCH ×2 (07:45→19:26)
--- NOTE | 2017-10-25 07:45 | CP.PCM.PN ---
<Malcolm Ramirez - Last Filed: 10/25/17 14:12> Subjective - Date & Time of Evaluation Date of Evaluation: 10/25/17 Time of Evaluation: 06:45 - Subjective Subjective: Malcolm Ramirez PGY1 Progress Note for Dr. Mcfadden 72F seen and evaluated at bedside this morning. Patient resting comfortably in bed. Per nurse, no acute events overnight. She received 2 breathing treatments that improved her symptoms. She still complaints of shortness of breath with a wet cough productive of clear sputum, no hemoptysis or green phlegm. Denies any fever, chills, chest pain, palpitations, nausea, vomiting, headache, or dizziness. Objective - Vital Signs/Intake and Output Vital Signs (last 24 hours): Temp Pulse Resp BP Pulse Ox 98.2 F 94 H 19 137/72 97 10/25/17 06:00 10/25/17 06:00 10/25/17 06:00 10/25/17 06:00 10/25/17 06:00 Intake and Output: 10/25/17 10/25/17 06:59 18:59 Intake Total 1080 Balance 1080 - Medications Medications: Current Medications Acetaminophen (Tylenol 325mg Tab) 650 mg PO Q6H PRN PRN Reason: Fever >100.4 F Last Admin: 10/25/17 05:56 Dose: 650 mg Atorvastatin Calcium (Lipitor) 10 mg PO DIN [facility] Last Admin: 10/24/17 17:04 Dose: 10 mg Budesonide (Pulmicort Respules) 0.25 mg IH [id number] [facility] Last Admin: 10/24/17 20:20 Dose: 0.25 mg Digoxin (Lanoxin) 0.25 mg PO 1400 [facility] Last Admin: 10/24/17 14:27 Dose: 0.25 mg Diltiazem HCl (Cardizem Cd) 120 mg PO 2000 [facility] Last Admin: 10/24/17 21:21 Dose: 120 mg Furosemide (Lasix) 40 mg IVP 0800,1400 [facility] Levofloxacin/Dextrose (Levaquin 750mg) 750 mg in 150 mls @ 100 mls/hr IVPB DAILY [facility] PRN Reason: Protocol Stop: 10/29/17 10:01 Levalbuterol HCl (Xopenex) 1.25 mg IH [id number] [facility] Last Admin: 10/25/17 02:25 Dose: 1.25 mg Levalbuterol HCl (Xopenex) 1.25 mg IH Q2H PRN PRN Reason: Shortness of Breath Last Admin: 10/25/17 00:25 Dose: 1.25 mg Lisinopril (Zestril) 10 mg PO DAILY [facility] Last Admin: 10/24/17 10:44 Dose: 10 mg Methylprednisolone (Solu-Medrol) 40 mg IVP Q8H [facility] Last Admin: 10/25/17 05:56 Dose: 40 mg Pantoprazole Sodium (Protonix Ec Tab) 40 mg PO ACB [facility] Sertraline HCl (Zoloft) 50 mg PO DAILY [facility] Last Admin: 10/24/17 12:07 Dose: 50 mg Spironolactone (Aldactone) 25 mg PO DAILY [facility] Last Admin: 10/24/17 10:44 Dose: 25 mg Warfarin Sodium (Coumadin) 3 mg PO 1800 [facility] PRN Reason: Protocol Last Admin: 10/24/17 17:04 Dose: 3 mg - Labs Labs: 10/25/17 05:45 10/25/17 05:45 PT 40.9 SECONDS (9.4-12.5) H 10/25/17 05:45 INR 3.47 10/25/17 05:45 APTT 46.0 Seconds (25.1-36.5) H 10/24/17 05:20 - Constitutional Appears: Well, Non-toxic, No Acute Distress - Head Exam Head Exam: ATRAUMATIC, NORMAL INSPECTION, NORMOCEPHALIC - Eye Exam Eye Exam: EOMI, Normal appearance - Respiratory Exam Respiratory Exam: Wheezes. absent: Decreased Breath Sounds, Respiratory Distress Additional comments: expiratory - Cardiovascular Exam Cardiovascular Exam: +S1, +S2. absent: Murmur - GI/Abdominal Exam GI & Abdominal Exam: Soft, Normal Bowel Sounds. absent: Tenderness - Rectal Exam Rectal Exam: Deferred - Neurological Exam Neurological Exam: Alert, Awake, Oriented x3 - Psychiatric Exam Psychiatric exam: Normal Affect, Normal Mood Assessment and Plan - Assessment and Plan (Free Text) Assessment: 72 y/o F, PMH of Afib on coumadin, COPD, Diastolic CHF, Anxiety, HTN, w/ SOB and productive cough admitted for suspected acute COPD exacerbation Plan: 1. Acute COPD Exacerbation - Leukocytosis improved from 11.1 to 9.6 today - CXR: No active disease process - Solumedrol 40mg IV Q8, Xopenex 1.25mg Q2 PRN and Q6 [facility], Pulmicort 0.25 Q12 [facility] - Levaquin 750mg - Mucinex 600mg BID for cough - Blood cultures negative at 24 hours - Pending sputum cultures, RSV 2. Acute Exacerbation of CHF - Diastolic CHF w/ last known EF of 55-60% (05/2017) - Lasix, Lisinopril - Spironolactone currently on hold - BNP 1889 today - Will replete electrolytes as needed - Cardiology consulted - Dr. Mendez 3. Atrial Fibrillation Chronic - Coumadin on hold - Digoxin and Diltiazem for rate control - Monitoring INR at therapeutic level - Cardiology consulted - Dr. Mendez 4. Hyperlipidemia - Statin medication 5. Anxiety - Continue home Ativan 1mg - Zoloft 6. Tobacco Abuse - Advised cessation DVT PPX: Sequential Compression Devices GI PPX: Protonix Diet: Heart Healthy Dispo: upon discharge patient will be scheduled to follow up with her PMD Dr. Victoria Case and plan discussed with attending, Dr. Bogdan Ramirez PGY1 <Alia Mcfadden R - Last Filed: 10/27/17 07:27> Objective - Vital Signs/Intake and Output Vital Signs (last 24 hours): Temp Pulse Resp BP Pulse Ox 98.7 F 52 L 20 139/84 98 10/26/17 22:56 10/26/17 22:56 10/26/17 22:56 10/26/17 22:56 10/26/17 22:56 Intake and Output: 10/27/17 10/27/17 06:59 18:59 Intake Total 120 Balance 120 - Medications Medications: Current Medications Acetaminophen (Tylenol 325mg Tab) 650 mg PO Q6H PRN PRN Reason: Headache Last Admin: 10/26/17 21:20 Dose: 650 mg Alprazolam (Xanax) 1 mg PO TID PRN; Protocol PRN Reason: Anxiety Last Admin: 10/26/17 20:08 Dose: 1 mg Atorvastatin Calcium (Lipitor) 10 mg PO DIN [facility] Last Admin: 10/26/17 17:05 Dose: 10 mg Budesonide (Pulmicort Respules) 0.25 mg IH [id number] Last Admin: 10/26/17 19:42 Dose: 0.25 mg Digoxin (Lanoxin) 0.25 mg PO 1400 [facility] Last Admin: 10/26/17 14:36 Dose: 0.25 mg Diltiazem HCl (Cardizem Cd) 120 mg PO 2000 [facility] Last Admin: 10/26/17 20:09 Dose: 120 mg Furosemide (Lasix) 40 mg IVP 0800,1400 [facility] Last Admin: 10/26/17 14:37 Dose: 40 mg Guaifenesin (Mucinex La) 600 mg PO BID [facility] Last Admin: 10/26/17 17:05 Dose: 600 mg Levofloxacin/Dextrose (Levaquin 750mg) 750 mg in 150 mls @ 100 mls/hr IVPB DAILY [facility] PRN Reason: Protocol Stop: 10/29/17 10:01 Last Admin: 10/26/17 10:04 Dose: 100 mls/hr Levalbuterol HCl (Xopenex) 1.25 mg IH [id number] [facility] Last Admin: 10/27/17 02:53 Dose: 1.25 mg Levalbuterol HCl (Xopenex) 1.25 mg IH Q2H PRN PRN Reason: Shortness of Breath Last Admin: 10/26/17 11:54 Dose: 1.25 mg Lisinopril (Zestril) 10 mg PO DAILY [facility] Last Admin: 10/26/17 10:05 Dose: 10 mg Methylprednisolone (Solu-Medrol) 40 mg IVP Q8H [facility] Last Admin: 10/27/17 05:56 Dose: 40 mg Pantoprazole Sodium (Protonix Ec Tab) 40 mg PO 0600 [facility] Last Admin: 10/27/17 05:56 Dose: 40 mg Sertraline HCl (Zoloft) 50 mg PO DAILY [facility] Last Admin: 10/26/17 10:04 Dose: 50 mg Spironolactone (Aldactone) 25 mg PO DAILY [facility] Last Admin: 10/26/17 14:38 Dose: 25 mg Warfarin Sodium (Coumadin) 2 mg PO 1800 [facility] PRN Reason: Protocol Last Admin: 10/26/17 17:05 Dose: 2 mg - Labs Labs: 10/26/17 07:15 10/26/17 07:15 PT 27.9 SECONDS (9.4-12.5) H 10/26/17 07:15 INR 2.38 10/26/17 07:15 APTT 46.0 Seconds (25.1-36.5) H 10/24/17 05:20 Attending/Attestation - Attestation I have personally seen and examined this patient.: Yes I have fully participated in the care of the patient.: Yes I have reviewed all pertinent clinical information, including history, physical exam and plan: Yes Notes (Text): Patient seen and examined by me at 11:50AM with resident 10/25/17. Case including HPI, physical exam, and assessment and plan discussed with resident. Agree with above with following additions/corrections. Patient states she is feeling ok. States she is still feeling short of breath but has improved a little since yesterday. Also still coughing. Complains of body aches. No chest pain or palpitations. No nausea, vomiting, or abdominal pain. No headaches or dizziness. No fevers or chills. No dysuria. Physical exam: Gen: Awake and alert sitting up in bed in no acute distress HEENT: Normocephalic atraumatic. Extraocular muscles intact, pupils equal reactive. Oropharynx is pink and moist, no pharyngeal erythema or exudate appreciated. Neck is supple. Cardiovascular: Irregularly irregular rhythm. S1, S2. No murmurs, rubs, or gallops appreciated Pulmonary: Normal respiratory effort. Speaking in full sentences. Positive for wheezing throughout. No rales or rhonchi appreciated. Gastrointestinal: Soft, nontender, nondistended, positive bowel sounds all 4 quadrants, no guarding. Musculoskeletal: Normal range of motion all extremities, no calf tenderness, no edema appreciated Central nervous system: AAO x 3. 5/5 muscle strength all extremities. CN 2-12 grossly intact Dermatologic: Skin warm and dry, ecchymosis right forearm, left lower extremity Assessment and plan:Patient is a 72-year-old female with past medical history significant for nonobstructive coronary artery disease, cardiomyopathy, atrial fibrillation maintained on Coumadin, COPD, diastolic congestive heart failure, hypertension, and anxiety that presented to the emergency room with progressive shortness of breath and productive cough. 1. Acute COPD exacerbation. Continue nebulizer treatments. Continue budesonide. Continue Solu-Medrol 40 mg IV every 8 hours. Continue Levaquin. Continue with O2 via nasal cannula as needed. Patient again counseled on smoking cessation. Will start Mucinex 2. Acute on chronic diastolic CHF exacerbation. BNP elevated from baseline. MUGA scan 09/17/2017 showed a preserved EF of 56%. Cardiology following, recommendations appreciated. Continue with Lasix 20 mg IV every 12 hours. Continue lisinopril. Continue Spironolactone. 3. Atrial fibrillation. Continue digoxin and Cardizem. Coumadin held as INR supratherapeutic. Monitor INR and adjust Coumadin dose as needed. 4. Nonobstructive coronary artery disease. Cardiomyopathy. No acute issues. Continue home lisinopril, Coumadin, and Lipitor. 5. Hypertension. Continue home Cardizem and lisinopril. Continue Lasix 6. Hyponatremia. Improved. Continue to monitor. 7. Anxiety. Continue home Zoloft. Started on patient's home Xanax 8. Tobacco abuse. Patient counseled at length on cessation. 9. GI/DVT prophylaxis. Protonix and Coumadin. 10. Patient is a full code Case was discussed in detail with the patient regarding current diagnosis and treatment plan
--- NOTE | 2017-10-25 08:51 | RAD ---
Date of service: 10/25/2017 HISTORY: chf COMPARISON: 10/24/2017 FINDINGS: LUNGS: No active pulmonary disease. PLEURA: No significant pleural effusion identified, no pneumothorax apparent. CARDIOVASCULAR: Normal. OSSEOUS STRUCTURES: No significant abnormalities. VISUALIZED UPPER ABDOMEN: Normal. OTHER FINDINGS: None. IMPRESSION: No active disease.
--- NOTE | 2017-10-25 09:29 | CP.PCM.PN ---
Subjective - Date & Time of Evaluation Date of Evaluation: 10/25/17 Time of Evaluation: 06:20 - Subjective Subjective: Awake, denies chest pain, unable to sleep, tired Reason for consultation and follow up:Cardiac evaluation for shortness of breath , history of diastolic Congestive Heart Failure, hypertension, atrial fibrillation on coumadin Seen and examined by me and Dr. Mendez Objective - Vital Signs/Intake and Output Vital Signs (last 24 hours): Temp Pulse Resp BP Pulse Ox 98.2 F 94 H 19 120/68 97 10/25/17 06:00 10/25/17 06:00 10/25/17 06:00 10/25/17 08:41 10/25/17 06:00 Intake and Output: 10/25/17 10/25/17 06:59 18:59 Intake Total 1080 Balance 1080 - Medications Medications: Current Medications Acetaminophen (Tylenol 325mg Tab) 650 mg PO Q6H PRN PRN Reason: Fever >100.4 F Last Admin: 10/25/17 05:56 Dose: 650 mg Atorvastatin Calcium (Lipitor) 10 mg PO DIN [facility] Last Admin: 10/24/17 17:04 Dose: 10 mg Budesonide (Pulmicort Respules) 0.25 mg IH [id number] [facility] Last Admin: 10/24/17 20:20 Dose: 0.25 mg Digoxin (Lanoxin) 0.25 mg PO 1400 [facility] Last Admin: 10/24/17 14:27 Dose: 0.25 mg Diltiazem HCl (Cardizem Cd) 120 mg PO 2000 [facility] Last Admin: 10/24/17 21:21 Dose: 120 mg Furosemide (Lasix) 40 mg IVP 0800,1400 [facility] Last Admin: 10/25/17 08:41 Dose: 40 mg Levofloxacin/Dextrose (Levaquin 750mg) 750 mg in 150 mls @ 100 mls/hr IVPB DAILY [facility] PRN Reason: Protocol Stop: 10/29/17 10:01 Levalbuterol HCl (Xopenex) 1.25 mg IH [id number] [facility] Last Admin: 10/25/17 02:25 Dose: 1.25 mg Levalbuterol HCl (Xopenex) 1.25 mg IH Q2H PRN PRN Reason: Shortness of Breath Last Admin: 10/25/17 00:25 Dose: 1.25 mg Lisinopril (Zestril) 10 mg PO DAILY [facility] Last Admin: 10/24/17 10:44 Dose: 10 mg Methylprednisolone (Solu-Medrol) 40 mg IVP Q8H [facility] Last Admin: 10/25/17 05:56 Dose: 40 mg Pantoprazole Sodium (Protonix Ec Tab) 40 mg PO ACB [facility] Last Admin: 10/25/17 08:41 Dose: 40 mg Sertraline HCl (Zoloft) 50 mg PO DAILY [facility] Last Admin: 10/24/17 12:07 Dose: 50 mg Spironolactone (Aldactone) 25 mg PO DAILY [facility] Last Admin: 10/24/17 10:44 Dose: 25 mg Warfarin Sodium (Coumadin) 3 mg PO 1800 [facility] PRN Reason: Protocol Last Admin: 10/24/17 17:04 Dose: 3 mg - Labs Labs: 10/25/17 05:45 10/25/17 05:45 PT 40.9 SECONDS (9.4-12.5) H 10/25/17 05:45 INR 3.47 10/25/17 05:45 APTT 46.0 Seconds (25.1-36.5) H 10/24/17 05:20 - Constitutional Appears: No Acute Distress - Eye Exam Eye Exam: Normal appearance - ENT Exam ENT Exam: Mucous Membranes Moist - Respiratory Exam Respiratory Exam: Decreased Breath Sounds, Rhonchi, Wheezes, NORMAL BREATHING PATTERN - Cardiovascular Exam Cardiovascular Exam: Irregular Rhythm, +S1, +S2 Additional comments: Atrial fibrillation-90's - GI/Abdominal Exam GI & Abdominal Exam: Soft, Normal Bowel Sounds - Extremities Exam Additional comments: 1-2+ edema - Neurological Exam Neurological Exam: Alert, Awake, Oriented x3 - Psychiatric Exam Psychiatric exam: Normal Affect - Skin Skin Exam: Dry, Intact, Warm Assessment and Plan - Assessment and Plan (Free Text) Assessment: A 72 year old female who came in to the ER due to shortness of breath and productive cough. She was just recently discharged 09/20/17 from [facility] with similar symptoms.History of diastolic Congestive Heart Failure, hypertension, atrial fibrillation on coumadin.robotic assisted Left VATS with wedge resection and lymph node biopsy 06/2015, polypectomy,Smokes 3-4 cigs a day, Recent echo 05/30 LVEF 55%, moderate valvular aortic stenosis,moderate TR,mild MR. Acute on chronic exacerbation of COPD.acute on chronic exacerbation of congestive heart failure. Plan: Mild wheezing now,nebulizer treatment Continue nebulizer treatments On nasal cannula Diuresing with Lasix Troponin normal Heart rate and blood pressure controlled On Lipitor 10 mg daily,Digoxin 0.25 mg daily, Cardizem CD 120 mg daily Lisinopril 10 mg daily,Solu medrol 40 mg every 8 hours,Lasix 40 mg BID coumadin 3 mg daily Aldactone 25 mg daily Continue current treatment Continue current medications Will follow up Plan and treatment discussed with Dr. Mendez
--- NOTE | 2017-10-25 09:43 | CON ---
Copied To: Mak Mendez MD Attending MD: Mak Mendez MD DATE: 10/24/2017 REASON FOR THE CONSULTATION AND FOLLOWUP: Cardiac evaluation, chronic atrial fibrillation, admitted with shortness of breath, congestive heart failure, nonobstructive coronary artery disease. BRIEF CLINICAL HISTORY: This is a 72-year-old female with past medical history significant for chronic atrial fibrillation on Coumadin, history of CHF, hypertension, history of cardiomyopathy improved, admitted with shortness of breath and productive cough couple of days. to the point that patient get very short of breath and also feel palpitation. Came to the emergency room. Denies any chest pain. PAST MEDICAL HISTORY: Significant for atrial fibrillation, on Coumadin; asthma; COPD; coronary artery disease and anxiety disorder. PAST SURGICAL HISTORY: Significant for lung resection in 2014. ALLERGIES: ALLERGIC TO ZITHROMAX AND GETS RASH. PREVIOUS CARDIAC WORKUP: As follows, patient had a stress test dated 06/12/2016 that showed abnormal myocardial perfusion study, ischemia, ejection fraction 37%. Following that patient had a cardiac catheterization on 06/29/2016 that shows nonobstructive coronary artery disease, limited only to very distal diffusely LAD diseased, no focal flow-limiting stenosis, moderate decreased LV function, ejection fraction of 35% to 40%; EDP was in the range of 20. No gradient across aortic valve noted on pullback. The echo at that time shows [id number] aortic stenosis, but in cardiac catheterization, no gradient across the aortic valve noted. At that time, recommendation was made to treat aggressively including digoxin, diuretics, LADARIUS inhibitors, Coreg, and Coumadin for atrial fibrillation and follow up LV function in 3 to 6 months and if remains 30 below, at that time consider AICD, cath dated 06/29/2016. Patient has echo repeat on 06/02/2015, that shows no prolapse, ejection fraction of 35%, [id number] aortic stenosis as mentioned above, but no gradient across the aortic valve on cath. The patient had repeat echo during this admission, that is 05/30/2017, that shows an ejection fraction of 55% to 60%, myio-wi-jjenlxfo aortic stenosis, mild mitral regurgitation, [id number] tricuspid regurgitation, RV systolic pressure of 37. Patient had a MUGA scan on 09/17/2017 because of discrepancy to stress test, cath and echo finding. MUGA shows the ejection fraction of 56%, normal RV, dated, 09/17/2017. CURRENT MEDICATIONS: Patient is taking prednisone, Cardizem CD 120 mg daily, Coumadin 3 mg daily, spironolactone 25 mg daily, Zoloft, prednisone, lisinopril, levalbuterol, furosemide, digoxin, atorvastatin. REVIEW OF SYSTEMS: As per HPI. PHYSICAL EXAMINATION: VITAL SIGNS: As follows, height of the patient is 5 feet, 1 inch, weight of the patient 135 pounds, body mass index 5.5 kg/m2. Rest of the vitals, temperature afebrile, heart rate 92 and blood pressure 130/80. HEENT: PERRLA. Extraocular muscles intact. NECK: Supple. No carotid bruit or thyromegaly. CHEST: Clear to auscultation. HEART: S1 and S2, regular. ABDOMEN: Soft. EXTREMITIES: Clubbing and cyanosis negative. LABORATORY DATA: WBC 11.1, hemoglobin , hematocrit 37.9, platelet count 380. Chemistry shows sodium 125, potassium 4, chloride 84, carbon dioxide is , anion gap of 16, BUN 14, creatinine 0.7. BNP 3010. Troponin 0.01 negative. Phosphorous 5.2, magnesium 1.5. DIAGNOSTIC DATA: EKG shows atrial fibrillation. Chest x-ray reviewed, questionable mild congestion, cannot rule out right lower lobe pneumonia. IMPRESSION: A 72-year-old female with past medical history significant for nonobstructive coronary artery disease, status post cardiac catheterization a year ago, history of chronic atrial fibrillation, history of chronic obstructive pulmonary disease, history of cardiomyopathy on cardiac catheterization, dated 06/29/2016, no gradient across aortic valve noted, but repeat MUGA scan on the last admission shows a preserved left ventricular function, ejection fraction 55%, normal right ventricular function. RECOMMENDATION: We will give gentle diuretics. Monitor electrolytes closely. Continue anticoagulation INR between 2 to 2.5. We will follow with you. I will hold the Coumadin today because INR is elevated. We will follow with the lipid profile, TSH, hemoglobin A1c. We will continue spironolactone. Continue Cardizem. Continue Coumadin. Continue digoxin. Continue lisinopril. Repeat the PT/INR tomorrow. Thank you, Dr. Mcfadden for providing us the opportunity in taking care of Alecia Arciniega. Mak Mendez MD
[2017-10-25] MEDS: levoFLOXacin 750 mg in D5W 750 MG/150 ML BAG IVPB SCH (09:56)
--- NOTE | 2017-10-25 10:17 | CP.PCM.CON ---
<Pema Colvin - Last Filed: 10/25/17 14:31> History of Present Illness - History of Present Illness History of Present Illness: Palliative care consult note for Arlene Ricks Reason for consult: advance directives Mrs cazares is a 72 y/o Female with PMHx of afib on Coumadin, diastolic chf, COPD , CAD, anxiety, left lung mass s/p resection in 2016 (pulmonary hamartoma), 50 pack year history who presented with worsening shortness of breath and is being treated for CHF/COPD exacerbation. The shortness of breath is been going on for months, patient was last admitted for similar condition back in August. Patient also states she has been falling, fell multiple times in the past few months, denied LOC. Palliative care is being consulted for advance directives. Patient states she's familiar with living will and advance directives, had discussions with multiple medical personnel in the past, however states she's not interested in establishing one. States she would like her or her family to decide toward the end, and would like to be intubated and resuscitated. Patient states she still smokes, but has been trying to quit. Patient complaining of shortness of breath, denies cp, denies n/v/d, no fevers or chills. Chest x-ray with normal findings. No growth on the blood cultures. PMHx: afib on Coumadin, diastolic chf, COPD, CAD, anxiety, pulmonary hamartoma. PSHx: VATS with wedge resection and lymph node biopsy in 2016- hamartoma on path , Cardiac cath in 2017 FMHx: Mother from cervical cancer, brother with abdominal cancer. Social history: lives with daughter and grand daughter, smokes 3-4 cigarettes per day, 50 pack year history, denies alcohol and illicit drug use. Allergy: Zithromax Home meds: please see medical records for full list. Review of Systems - Constitutional Constitutional: absent: Chills, Fever, Headache, Weight Loss - EENT Eyes: absent: Change in Vision - Cardiovascular Cardiovascular: Dyspnea. absent: Chest Pain, Chest Pain at Rest, Claudication, Edema - Respiratory Respiratory: Dyspnea, Wheezing. absent: Cough, Hemoptysis, Chest Congestion - Gastrointestinal Gastrointestinal: absent: Abdominal Pain, Bloating, Nausea, Vomiting - Genitourinary Genitourinary: absent: Dysuria - Neurological Neurological: absent: Dizziness, Headaches - Psychiatric Psychiatric: Anxiety Past Patient History - Infectious Disease Hx of Infectious Diseases: None - Past Medical History & Family History Past Medical History?: Yes - Past Social History Smoking Status: Light Smoker < 10 Cigarettes Daily Alcohol: None Drugs: Denies Home Situation {Lives}: With Family - CARDIAC Hx Cardiac Disorders: Yes (cp) Hx Angina: Yes Hx Cardia Arrhythmia: Yes Hx Congestive Heart Failure: Yes Hx Hypercholesterolemia: Yes Hx Hypertension: Yes Hx Peripheral Edema: Yes (ble +2 pitting edema) - PULMONARY Hx Respiratory Disorders: Yes Hx Asthma: Yes Hx Bronchitis: Yes Hx Chronic Obstructive Pulmonary Disease (COPD): Yes - NEUROLOGICAL Hx Neurological Disorder: Yes (headaches) Hx Dizziness: Yes - HEENT Hx HEENT Problems: No - RENAL Hx Chronic Kidney Disease: No - ENDOCRINE/METABOLIC Hx Endocrine Disorders: No - HEMATOLOGICAL/ONCOLOGICAL Hx Blood Disorders: No - INTEGUMENTARY Hx Dermatological Problems: No - MUSCULOSKELETAL/RHEUMATOLOGICAL Hx Musculoskeletal Disorders: Yes Hx Arthritis: Yes Hx Falls: Yes (fell couple days ago) Hx Unsteady Gait: Yes Other/Comment: hands "lock up", chronic pain to feet and lower legs 9/10 wakes pt up cramping pain, cramping to hands feet ankles legs - GASTROINTESTINAL Hx Gastrointestinal Disorders: Yes Hx Gastroesophageal Reflux: Yes - GENITOURINARY/GYNECOLOGICAL Hx Genitourinary Disorders: No - PSYCHIATRIC Hx Psychophysiologic Disorder: Yes Hx Anxiety: Yes Hx Depression: Yes Hx Substance Use: No - SURGICAL HISTORY Hx Surgeries: Yes (cardiac cath x1) Hx Cardiac Catheterization: Yes (X1) Hx Coronary Stent: Yes (unknown) Other/Comment: robotic left lower wedge resection and lymphaderectomy 06/2015, polypectomy, left lung nodule removed 2 yrs ago at [facility] benign - ANESTHESIA Hx Anesthesia: Yes Hx Anesthesia Reactions: No Hx Malignant Hyperthermia: No Meds Allergies/Adverse Reactions: Allergies Allergy/AdvReac Type Severity Reaction Status Date / Time azithromycin [From Zithromax] AdvReac Intermediate RASH Verified 10/22/17 10:22 - Medications Medications: Current Medications Acetaminophen (Tylenol 325mg Tab) 650 mg PO Q6H PRN PRN Reason: Fever >100.4 F Last Admin: 10/25/17 05:56 Dose: 650 mg Atorvastatin Calcium (Lipitor) 10 mg PO DIN NORA Last Admin: 10/24/17 17:04 Dose: 10 mg Budesonide (Pulmicort Respules) 0.25 mg IH [id number] [facility] Last Admin: 10/25/17 07:45 Dose: 0.25 mg Digoxin (Lanoxin) 0.25 mg PO 1400 [facility] Last Admin: 10/24/17 14:27 Dose: 0.25 mg Diltiazem HCl (Cardizem Cd) 120 mg PO 2000 [facility] Last Admin: 10/24/17 21:21 Dose: 120 mg Furosemide (Lasix) 40 mg IVP 0800,1400 [facility] Last Admin: 10/25/17 08:41 Dose: 40 mg Levofloxacin/Dextrose (Levaquin 750mg) 750 mg in 150 mls @ 100 mls/hr IVPB DAILY [facility] PRN Reason: Protocol Stop: 10/29/17 10:01 Last Admin: 10/25/17 09:56 Dose: 100 mls/hr Levalbuterol HCl (Xopenex) 1.25 mg IH [id number] [facility] Last Admin: 10/25/17 07:45 Dose: 1.25 mg Levalbuterol HCl (Xopenex) 1.25 mg IH Q2H PRN PRN Reason: Shortness of Breath Last Admin: 10/25/17 00:25 Dose: 1.25 mg Lisinopril (Zestril) 10 mg PO DAILY [facility] Last Admin: 10/25/17 09:53 Dose: 10 mg Methylprednisolone (Solu-Medrol) 40 mg IVP Q8H [facility] Last Admin: 10/25/17 05:56 Dose: 40 mg Pantoprazole Sodium (Protonix Ec Tab) 40 mg PO 0600 [facility] Sertraline HCl (Zoloft) 50 mg PO DAILY [facility] Last Admin: 10/25/17 09:54 Dose: 50 mg Spironolactone (Aldactone) 25 mg PO DAILY [facility] Last Admin: 10/24/17 10:44 Dose: 25 mg Warfarin Sodium (Coumadin) 3 mg PO 1800 [facility] PRN Reason: Protocol Last Admin: 10/24/17 17:04 Dose: 3 mg Physical Exam - Constitutional Appears: No Acute Distress, Chronically Ill - Head Exam Head Exam: ATRAUMATIC, NORMAL INSPECTION, NORMOCEPHALIC - Eye Exam Eye Exam: Normal appearance - ENT Exam ENT Exam: Mucous Membranes Dry - Neck Exam Neck exam: Positive for: Normal Inspection - Respiratory Exam Respiratory Exam: Prolonged Expiratory Phase. absent: Rales, Rhonchi, Wheezes, Respiratory Distress, Stridor - Cardiovascular Exam Cardiovascular Exam: Irregular Rhythm, +S1, +S2 - GI/Abdominal Exam GI & Abdominal Exam: Normal Bowel Sounds, Soft. absent: Distended, Tenderness - Extremities Exam Extremities exam: Positive for: pedal edema - Neurological Exam Neurological exam: Alert, Oriented x3 - Psychiatric Exam Psychiatric exam: Normal Affect, Normal Mood - Skin Skin Exam: Abrasion Additional comments: Multiple bruising and ecchymosis in the lower extremities. Results - Vital Signs Recent Vital Signs: Last Vital Signs Temp 98.2 F 10/25/17 06:00 Pulse 111 H 10/25/17 09:53 Resp 19 10/25/17 06:00 BP 136/81 10/25/17 09:53 Pulse Ox 97 10/25/17 06:00 - Labs Result Diagrams: 10/25/17 05:45 10/25/17 05:45 Labs: Laboratory Results - last 24 hr 10/24/17 10/24/17 10/25/17 08:30 08:30 05:45 WBC 9.6 RBC 4.36 Hgb 12.9 Hct 37.7 MCV 86.5 MCH 29.6 MCHC 34.2 RDW 14.3 Plt Count 355 MPV 8.4 Gran % 84.9 H Lymph % (Auto) 8.2 L [place] % (Auto) 6.9 H Eos % (Auto) 0.0 L Baso % (Auto) 0.0 Gran # 8.17 H Lymph # (Auto) 0.8 L [place] # (Auto) 0.7 H Eos # (Auto) 0.0 Baso # (Auto) 0.00 PT INR Sodium Potassium Chloride Carbon Dioxide Anion Gap BUN Creatinine Est GFR ( Amer) Est GFR (Non-Af Amer) Random Glucose Calcium Phosphorus Magnesium Total Bilirubin AST ALT Alkaline Phosphatase NT-Pro-B Natriuret Pep Total Protein Albumin Globulin Albumin/Globulin Ratio Triglycerides Cholesterol LDL Cholesterol Direct HDL Cholesterol Procalcitonin < 0.05 L TSH 3rd Generation Digoxin 0.8 10/25/17 10/25/17 10/25/17 05:45 05:45 05:45 WBC RBC Hgb Hct MCV MCH MCHC RDW Plt Count MPV Gran % Lymph % (Auto) [place] % (Auto) Eos % (Auto) Baso % (Auto) Gran # Lymph # (Auto) [place] # (Auto) Eos # (Auto) Baso # (Auto) PT 40.9 H INR 3.47 Sodium 130 L Potassium 4.3 Chloride 90 L Carbon Dioxide 33 Anion Gap 11 BUN 13 Creatinine 0.5 L Est GFR ( Amer) > 60 Est GFR (Non-Af Amer) > 60 Random Glucose 121 H Calcium 9.1 Phosphorus 3.5 Magnesium 1.9 Total Bilirubin 0.3 AST 33 ALT 44 Alkaline Phosphatase 51 NT-Pro-B Natriuret Pep 1890 H Total Protein 6.3 Albumin 3.9 Globulin 2.5 Albumin/Globulin Ratio 1.6 Triglycerides 53 Cholesterol 150 LDL Cholesterol Direct 40 HDL Cholesterol 88 H Procalcitonin TSH 3rd Generation Digoxin 10/25/17 05:45 WBC RBC Hgb Hct MCV MCH MCHC RDW Plt Count MPV Gran % Lymph % (Auto) [place] % (Auto) Eos % (Auto) Baso % (Auto) Gran # Lymph # (Auto) [place] # (Auto) Eos # (Auto) Baso # (Auto) PT INR Sodium Potassium Chloride Carbon Dioxide Anion Gap BUN Creatinine Est GFR ( Amer) Est GFR (Non-Af Amer) Random Glucose Calcium Phosphorus Magnesium Total Bilirubin AST ALT Alkaline Phosphatase NT-Pro-B Natriuret Pep Total Protein Albumin Globulin Albumin/Globulin Ratio Triglycerides Cholesterol LDL Cholesterol Direct HDL Cholesterol Procalcitonin TSH 3rd Generation 0.70 Digoxin Assessment & Plan - Assessment and Plan (Free Text) Assessment: 1- Advance directive and goal of care planning 2- COPD/chf exacerbation 3- h/o afib on Coumadin 4- h/o anxiety 5- Tobacco abuse Plan: Had discussions with the patient, with grand daughter at the bedside. Patient doesn't want to appoint a health care proxy, wants her daughters and grand daughter to make decisions when the time comes. Patient wants all the necessary medical treatments, wants to be intubated and resuscitated, doesn't want to have an advance directive/doesn't want to be DNI/ DNR. Continue medical management as per primary on pulmocort, xoponex, levaquin and solumedrol for copd exacerbation on xanax for anxiety on Lipitor for hld on digoxin and cardizem for afib, coumadin on hold due to supra-therapeutic INR on lasix for chf exacerbation on lisinopril for htn Protonix for gi prophylaxis. PT/OT Patient seen, examined and case discussed with Arlene Ricks. - Date & Time Date: 10/25/17 Time: 10:45 <Arlene Ricks F - Last Filed: 10/30/17 09:15> History of Present Illness - History of Present Illness History of Present Illness: I have reviewed consult note, reports, lab studies and imaging. I am in agreement with this plan Meds - Medications Medications: Current Medications Acetaminophen (Tylenol 325mg Tab) 650 mg PO Q6H PRN PRN Reason: Headache Last Admin: 10/25/17 19:49 Dose: 650 mg Alprazolam (Xanax) 1 mg PO TID PRN; Protocol PRN Reason: Anxiety Last Admin: 10/25/17 21:12 Dose: 1 mg Atorvastatin Calcium (Lipitor) 10 mg PO DIN [facility] Last Admin: 10/25/17 17:15 Dose: 10 mg Budesonide (Pulmicort Respules) 0.25 mg IH [id number] [facility] Last Admin: 10/26/17 07:27 Dose: 0.25 mg Digoxin (Lanoxin) 0.25 mg PO 1400 [facility] Last Admin: 10/25/17 14:56 Dose: 0.25 mg Diltiazem HCl (Cardizem Cd) 120 mg PO 2000 [facility] Last Admin: 10/25/17 21:11 Dose: 120 mg Furosemide (Lasix) 40 mg IVP 0800,1400 [facility] Last Admin: 10/26/17 08:19 Dose: 40 mg Guaifenesin (Mucinex La) 600 mg PO BID [facility] Last Admin: 10/26/17 10:05 Dose: 600 mg Levofloxacin/Dextrose (Levaquin 750mg) 750 mg in 150 mls @ 100 mls/hr IVPB DAILY [facility] PRN Reason: Protocol Stop: 10/29/17 10:01 Last Admin: 10/26/17 10:04 Dose: 100 mls/hr Levalbuterol HCl (Xopenex) 1.25 mg IH [id number] [facility] Last Admin: 10/26/17 07:27 Dose: 1.25 mg Levalbuterol HCl (Xopenex) 1.25 mg IH Q2H PRN PRN Reason: Shortness of Breath Last Admin: 10/25/17 00:25 Dose: 1.25 mg Lisinopril (Zestril) 10 mg PO DAILY [facility] Last Admin: 10/26/17 10:05 Dose: 10 mg Methylprednisolone (Solu-Medrol) 40 mg IVP Q8H [facility] Last Admin: 10/26/17 05:50 Dose: 40 mg Pantoprazole Sodium (Protonix Ec Tab) 40 mg PO 0600 [facility] Last Admin: 10/26/17 05:32 Dose: 40 mg Sertraline HCl (Zoloft) 50 mg PO DAILY [facility] Last Admin: 10/26/17 10:04 Dose: 50 mg Spironolactone (Aldactone) 25 mg PO DAILY [facility] Last Admin: 10/24/17 10:44 Dose: 25 mg Warfarin Sodium (Coumadin) 2 mg PO 1800 [facility] PRN Reason: Protocol Results - Vital Signs Recent Vital Signs: Last Vital Signs Temp 98 F 10/26/17 06:00 Pulse 100 H 10/26/17 06:00 Resp 20 10/26/17 06:00 BP 150/80 10/26/17 08:19 Pulse Ox 97 10/26/17 06:00 - Labs Result Diagrams: 10/30/17 08:03 10/30/17 08:03 Labs: Laboratory Results - last 24 hr 10/25/17 10/26/17 10/26/17 05:45 07:15 07:15 WBC 12.5 H D RBC 4.73 Hgb 13.9 Hct 41.3 MCV 87.3 MCH 29.4 MCHC 33.7 RDW 14.2 Plt Count 375 MPV 8.3 Gran % 89.4 H Lymph % (Auto) 7.3 L [place] % (Auto) 3.3 Eos % (Auto) 0.0 L Baso % (Auto) 0.0 Gran # 11.20 H Lymph # (Auto) 0.9 L [place] # (Auto) 0.4 Eos # (Auto) 0.0 Baso # (Auto) 0.00 PT INR Sodium 130 L Potassium 4.5 Chloride 87 L Carbon Dioxide 34 H Anion Gap 13 BUN 18 Creatinine 0.6 L Est GFR ( Amer) > 60 Est GFR (Non-Af Amer) > 60 Random Glucose 116 H Hemoglobin A1c 5.9 Calcium 9.4 Phosphorus 3.7 Magnesium 1.9 Total Bilirubin 0.4 AST 27 ALT 40 Alkaline Phosphatase 50 Total Protein 6.6 Albumin 4.1 Globulin 2.5 Albumin/Globulin Ratio 1.6 10/26/17 07:15 WBC RBC Hgb Hct MCV MCH MCHC RDW Plt Count MPV Gran % Lymph % (Auto) [place] % (Auto) Eos % (Auto) Baso % (Auto) Gran # Lymph # (Auto) [place] # (Auto) Eos # (Auto) Baso # (Auto) PT 27.9 H INR 2.38 Sodium Potassium Chloride Carbon Dioxide Anion Gap BUN Creatinine Est GFR ( Amer) Est GFR (Non-Af Amer) Random Glucose Hemoglobin A1c Calcium Phosphorus Magnesium Total Bilirubin AST ALT Alkaline Phosphatase Total Protein Albumin Globulin Albumin/Globulin Ratio
[2017-10-25] MEDS: Digoxin 250 mcg (0.25 mg) Tab PO SCH (14:56)
[2017-10-25] MEDS: guaiFENesin 600 mg ER Tab PO SCH (17:15)
[2017-10-25] MEDS ORDERED: guaiFENesin-DM 600-30 mg ER Tab PO SCH (18:00)
[2017-10-25] MEDS: diltiaZEM 120 mg/24 Hours CD Cap PO SCH (21:11)
[2017-10-25] MEDS ORDERED: guaiFENesin-DM 600-30 mg ER Tab PO ONE (23:45)
[2017-10-26] MEDS: Levalbuterol 1.25 MG/3 ML Inhal Soln UD IH SCH ×4 (02:57→19:39)
[2017-10-26] MEDS: Pantoprazole 40 mg EC Tab PO SCH (05:32)
[2017-10-26] MEDS: MethylPREDNISolone 40 mg Vial IVP SCH ×3 (05:50→21:16)
--- NOTE | 2017-10-26 07:06 | CP.PCM.PN ---
<Malcolm Ramirez - Last Filed: 10/26/17 13:34> Subjective - Date & Time of Evaluation Date of Evaluation: 10/26/17 Time of Evaluation: 07:06 - Subjective Subjective: Malcolm Ramirez PGY1 Progress Note for Dr. Alia Mcfadden 72F seen and evaluated at bedside this morning. No acute events overnight. Patient was resting comfortably in bed. She states improvement of shortness of breath however the wet cough productive of clear sputum persists and is bothersome. She received breathing treatments that helped relieve her symptoms. Patient also complains of pain in her lower extremities bilaterally when palpated. Admits to back and shoulder pain and headache. Denies fever, chills, palpitations, chest pain, dizziness, nausea, vomiting, diarrhea, or urinary symptoms. Objective - Vital Signs/Intake and Output Vital Signs (last 24 hours): Temp Pulse Resp BP Pulse Ox 97.8 F 87 20 137/80 97 10/25/17 22:54 10/25/17 22:54 10/25/17 22:54 10/25/17 22:54 10/25/17 22:54 Intake and Output: 10/26/17 10/26/17 06:59 18:59 Intake Total 720 Balance 720 - Medications Medications: Current Medications Acetaminophen (Tylenol 325mg Tab) 650 mg PO Q6H PRN PRN Reason: Headache Last Admin: 10/25/17 19:49 Dose: 650 mg Alprazolam (Xanax) 1 mg PO TID PRN; Protocol PRN Reason: Anxiety Last Admin: 10/25/17 21:12 Dose: 1 mg Atorvastatin Calcium (Lipitor) 10 mg PO DIN [facility] Last Admin: 10/25/17 17:15 Dose: 10 mg Budesonide (Pulmicort Respules) 0.25 mg IH [id number] [facility] Last Admin: 10/25/17 19:26 Dose: 0.25 mg Digoxin (Lanoxin) 0.25 mg PO 1400 [facility] Last Admin: 10/25/17 14:56 Dose: 0.25 mg Diltiazem HCl (Cardizem Cd) 120 mg PO 2000 [facility] Last Admin: 10/25/17 21:11 Dose: 120 mg Furosemide (Lasix) 40 mg IVP 0800,1400 [facility] Last Admin: 10/25/17 14:55 Dose: 40 mg Guaifenesin (Mucinex La) 600 mg PO BID [facility] Last Admin: 10/25/17 17:15 Dose: 600 mg Levofloxacin/Dextrose (Levaquin 750mg) 750 mg in 150 mls @ 100 mls/hr IVPB DAILY [facility] PRN Reason: Protocol Stop: 10/29/17 10:01 Last Admin: 10/25/17 09:56 Dose: 100 mls/hr Levalbuterol HCl (Xopenex) 1.25 mg IH [id number] [facility] Last Admin: 10/26/17 02:57 Dose: Not Given Levalbuterol HCl (Xopenex) 1.25 mg IH Q2H PRN PRN Reason: Shortness of Breath Last Admin: 10/25/17 00:25 Dose: 1.25 mg Lisinopril (Zestril) 10 mg PO DAILY [facility] Last Admin: 10/25/17 09:53 Dose: 10 mg Methylprednisolone (Solu-Medrol) 40 mg IVP Q8H [facility] Last Admin: 10/26/17 05:50 Dose: 40 mg Pantoprazole Sodium (Protonix Ec Tab) 40 mg PO 0600 [facility] Last Admin: 10/26/17 05:32 Dose: 40 mg Sertraline HCl (Zoloft) 50 mg PO DAILY [facility] Last Admin: 10/25/17 09:54 Dose: 50 mg Spironolactone (Aldactone) 25 mg PO DAILY [facility] Last Admin: 10/24/17 10:44 Dose: 25 mg Warfarin Sodium (Coumadin) 3 mg PO 1800 [facility] PRN Reason: Protocol Last Admin: 10/24/17 17:04 Dose: 3 mg - Labs Labs: 10/25/17 05:45 10/25/17 05:45 PT 40.9 SECONDS (9.4-12.5) H 10/25/17 05:45 INR 3.47 10/25/17 05:45 APTT 46.0 Seconds (25.1-36.5) H 10/24/17 05:20 - Constitutional Appears: Well, Non-toxic, No Acute Distress - Head Exam Head Exam: ATRAUMATIC, NORMAL INSPECTION, NORMOCEPHALIC - Eye Exam Eye Exam: EOMI, Normal appearance, PERRL - ENT Exam ENT Exam: Mucous Membranes Moist - Respiratory Exam Respiratory Exam: Wheezes. absent: Accessory Muscle Use, Respiratory Distress - Cardiovascular Exam Cardiovascular Exam: REGULAR RHYTHM, +S1, +S2. absent: Murmur - GI/Abdominal Exam GI & Abdominal Exam: Soft, Normal Bowel Sounds. absent: Tenderness - Rectal Exam Rectal Exam: Deferred - Extremities Exam Extremities Exam: Tenderness. absent: Pedal Edema - Neurological Exam Neurological Exam: Alert, Awake, Oriented x3 - Psychiatric Exam Psychiatric exam: Normal Affect, Normal Mood Assessment and Plan - Assessment and Plan (Free Text) Assessment: 72 y/o F, PMH of Afib on coumadin, COPD, Diastolic CHF, Anxiety, HTN, w/ SOB and productive cough admitted for acute COPD exacerbation Plan: 1. Acute COPD Exacerbation - Leukocytosis from 9.6 to 12.5 today likely secondary to steroid administration - CXR: No active disease process - Solumedrol 40mg IV Q8, Xopenex 1.25mg Q2 PRN and Q6 NORA, Pulmicort 0.25 Q12 NORA - Levaquin 750mg - Mucinex 600mg BID for cough - Blood cultures negative at 48 hours - Pending sputum cultures, RSV 2. Acute Exacerbation of CHF - Diastolic CHF w/ last known EF of 55-60% (05/2017) - Lasix, Lisinopril, Spironolactone - Will replete electrolytes as needed - Cardiology consulted - Dr. Mendez 3. Atrial Fibrillation Chronic - INR 2.38 today and can give Coumadin - Digoxin and Diltiazem for rate control - Monitoring INR at therapeutic level of 2-2.5 per cardio - Cardiology consulted - Dr. Mendez 4. Lower Extremity Tenderness - Pending duplex ultrasound of the lower extremities to rule out a DVT 4. Hyperlipidemia - Statin 5. Anxiety - Continue home Xanax 1mg - Zoloft 6. Tobacco Abuse - Advised cessation DVT PPX: Sequential Compression Devices GI PPX: Protonix Diet: Heart Healthy Physical Therapy recommends Subacute Rehab, however patient prefers Transitional Care Unit. Patient will follow up with her daughter and make a decision soon. Dispo: upon discharge patient will be scheduled to follow up with her PMD Dr. Victoria Case and plan discussed with attending, Dr. Bogdan Ramirez PGY1 <Alia Mcfadden - Last Filed: 10/27/17 08:08> Objective - Vital Signs/Intake and Output Vital Signs (last 24 hours): Temp Pulse Resp BP Pulse Ox 98.7 F 52 L 20 139/84 98 10/26/17 22:56 10/26/17 22:56 10/26/17 22:56 10/26/17 22:56 10/26/17 22:56 Intake and Output: 10/27/17 10/27/17 06:59 18:59 Intake Total 120 Balance 120 - Medications Medications: Current Medications Acetaminophen (Tylenol 325mg Tab) 650 mg PO Q6H PRN PRN Reason: Headache Last Admin: 10/26/17 21:20 Dose: 650 mg Alprazolam (Xanax) 1 mg PO TID PRN; Protocol PRN Reason: Anxiety Last Admin: 10/26/17 20:08 Dose: 1 mg Atorvastatin Calcium (Lipitor) 10 mg PO DIN [facility] Last Admin: 10/26/17 17:05 Dose: 10 mg Budesonide (Pulmicort Respules) 0.25 mg IH [id number] [facility] Last Admin: 10/26/17 19:42 Dose: 0.25 mg Digoxin (Lanoxin) 0.25 mg PO 1400 [facility] Last Admin: 10/26/17 14:36 Dose: 0.25 mg Diltiazem HCl (Cardizem Cd) 120 mg PO 2000 [facility] Last Admin: 10/26/17 20:09 Dose: 120 mg Furosemide (Lasix) 40 mg IVP 0800,1400 [facility] Last Admin: 10/26/17 14:37 Dose: 40 mg Guaifenesin (Mucinex La) 600 mg PO BID [facility] Last Admin: 10/26/17 17:05 Dose: 600 mg Levofloxacin/Dextrose (Levaquin 750mg) 750 mg in 150 mls @ 100 mls/hr IVPB DAILY [facility] PRN Reason: Protocol Stop: 10/29/17 10:01 Last Admin: 10/26/17 10:04 Dose: 100 mls/hr Levalbuterol HCl (Xopenex) 1.25 mg IH [id number] [facility] Last Admin: 10/27/17 02:53 Dose: 1.25 mg Levalbuterol HCl (Xopenex) 1.25 mg IH Q2H PRN PRN Reason: Shortness of Breath Last Admin: 10/26/17 11:54 Dose: 1.25 mg Lisinopril (Zestril) 10 mg PO DAILY [facility] Last Admin: 10/26/17 10:05 Dose: 10 mg Methylprednisolone (Solu-Medrol) 40 mg IVP Q8H [facility] Last Admin: 10/27/17 05:56 Dose: 40 mg Pantoprazole Sodium (Protonix Ec Tab) 40 mg PO 0600 [facility] Last Admin: 10/27/17 05:56 Dose: 40 mg Sertraline HCl (Zoloft) 50 mg PO DAILY [facility] Last Admin: 10/26/17 10:04 Dose: 50 mg Spironolactone (Aldactone) 25 mg PO DAILY [facility] Last Admin: 10/26/17 14:38 Dose: 25 mg Warfarin Sodium (Coumadin) 2 mg PO 1800 [facility] PRN Reason: Protocol Last Admin: 10/26/17 17:05 Dose: 2 mg - Labs Labs: 10/26/17 07:15 10/26/17 07:15 PT 27.9 SECONDS (9.4-12.5) H 10/26/17 07:15 INR 2.38 10/26/17 07:15 APTT 46.0 Seconds (25.1-36.5) H 10/24/17 05:20 Attending/Attestation - Attestation I have personally seen and examined this patient.: Yes I have fully participated in the care of the patient.: Yes I have reviewed all pertinent clinical information, including history, physical exam and plan: Yes Notes (Text): Patient seen and examined by me at 11:35AM with resident 10/26/17. Case including HPI, physical exam, and assessment and plan discussed with resident. Agree with above with following additions/corrections. Patient states she is not feeling well. Complains of a headache. No dizziness or change in vision. States she takes Tylenol at home for headaches which usually helps. States her body is hurting. Complains of bilateral leg pain. Cough has improved. Shortness of breath has improved. No chest pain or palpitations. No nausea, vomiting, or abdominal pain. No fevers or chills. No dysuria. Physical exam: Gen: Awake and alert sitting up in bed in no acute distress HEENT: Normocephalic atraumatic. Extraocular muscles intact, pupils equal reactive. Oropharynx is pink and moist, no pharyngeal erythema or exudate appreciated. Neck is supple. Cardiovascular: Irregularly irregular S1, S2. No murmurs, rubs, or gallops appreciated Pulmonary: Normal respiratory effort. Speaking in full sentences. Decreased breath sounds. Improved wheezing throughout. No rales or rhonchi appreciated. Gastrointestinal: Soft, nontender, nondistended, positive bowel sounds all 4 quadrants, no guarding. Musculoskeletal: Normal range of motion all extremities, mild lower extremity edema. Positive bilateral lower extremity tenderness Central nervous system: AAO x 3. 5/5 muscle strength all extremities. CN 2-12 grossly intact Dermatologic: Skin warm and dry, ecchymosis right forearm, left lower extremity Assessment and plan:Patient is a 72-year-old female with past medical history significant for nonobstructive coronary artery disease, cardiomyopathy, atrial fibrillation maintained on Coumadin, COPD, diastolic congestive heart failure, hypertension, and anxiety that presented to the emergency room with progressive shortness of breath and productive cough. 1. Acute COPD exacerbation. Improving. Continue nebulizer treatments and budesonide. Continue Solu-Medrol 40 mg IV every 8 hours, will need to taper. Continue Levaquin. Continue with O2 via nasal cannula as needed. Continue Mucinex 2. Acute on chronic diastolic CHF exacerbation. BNP elevated from baseline. MUGA scan 09/17/2017 showed a preserved EF of 56%. Cardiology following, recommendations appreciated. Continue with Lasix 20 mg IV every 12 hours. Continue lisinopril. Continue Spironolactone. 3. Atrial fibrillation. Continue digoxin and Cardizem. Continue Coumadin Monitor INR and adjust Coumadin dose as needed. INR goal of 2-2.5 per cardiology. 4. Nonobstructive coronary artery disease. Cardiomyopathy. No acute issues. Continue home lisinopril, Coumadin, and Lipitor. 5. Hypertension. Continue home Cardizem and lisinopril. Continue Lasix 6. Hyponatremia. Stable. Continue to monitor. 7. Anxiety. Continue home Zoloft. Started on patient's home Xanax 8. Tobacco abuse. Patient counseled at length on cessation. 9. Bilateral leg pain. NEW PROBLEM. Will get dopplers to rule out DVT. 10. GI/DVT prophylaxis. Protonix and Coumadin. 11. Patient is a full code Case was discussed in detail with the patient regarding current diagnosis and treatment plan
--- NOTE | 2017-10-26 07:10 | CP.PCM.PN ---
Subjective - Date & Time of Evaluation Date of Evaluation: 10/26/17 Time of Evaluation: 06:15 - Subjective Subjective: Awake, denies chest pain, feels tired Reason for consultation and follow up:Cardiac evaluation for shortness of breath , history of diastolic Congestive Heart Failure, hypertension, atrial fibrillation on coumadin Seen and examined by me and Dr. Mendez Objective - Vital Signs/Intake and Output Vital Signs (last 24 hours): Temp Pulse Resp BP Pulse Ox 97.8 F 87 20 137/80 97 10/25/17 22:54 10/25/17 22:54 10/25/17 22:54 10/25/17 22:54 10/25/17 22:54 Intake and Output: 10/26/17 10/26/17 06:59 18:59 Intake Total 720 Balance 720 - Medications Medications: Current Medications Acetaminophen (Tylenol 325mg Tab) 650 mg PO Q6H PRN PRN Reason: Headache Last Admin: 10/25/17 19:49 Dose: 650 mg Alprazolam (Xanax) 1 mg PO TID PRN; Protocol PRN Reason: Anxiety Last Admin: 10/25/17 21:12 Dose: 1 mg Atorvastatin Calcium (Lipitor) 10 mg PO DIN [facility] Last Admin: 10/25/17 17:15 Dose: 10 mg Budesonide (Pulmicort Respules) 0.25 mg IH [id number] [facility] Last Admin: 10/25/17 19:26 Dose: 0.25 mg Digoxin (Lanoxin) 0.25 mg PO 1400 [facility] Last Admin: 10/25/17 14:56 Dose: 0.25 mg Diltiazem HCl (Cardizem Cd) 120 mg PO 2000 [facility] Last Admin: 10/25/17 21:11 Dose: 120 mg Furosemide (Lasix) 40 mg IVP 0800,1400 [facility] Last Admin: 10/25/17 14:55 Dose: 40 mg Guaifenesin (Mucinex La) 600 mg PO BID [facility] Last Admin: 10/25/17 17:15 Dose: 600 mg Levofloxacin/Dextrose (Levaquin 750mg) 750 mg in 150 mls @ 100 mls/hr IVPB DAILY [facility] PRN Reason: Protocol Stop: 10/29/17 10:01 Last Admin: 10/25/17 09:56 Dose: 100 mls/hr Levalbuterol HCl (Xopenex) 1.25 mg IH [id number] [facility] Last Admin: 10/26/17 02:57 Dose: Not Given Levalbuterol HCl (Xopenex) 1.25 mg IH Q2H PRN PRN Reason: Shortness of Breath Last Admin: 10/25/17 00:25 Dose: 1.25 mg Lisinopril (Zestril) 10 mg PO DAILY [facility] Last Admin: 10/25/17 09:53 Dose: 10 mg Methylprednisolone (Solu-Medrol) 40 mg IVP Q8H [facility] Last Admin: 10/26/17 05:50 Dose: 40 mg Pantoprazole Sodium (Protonix Ec Tab) 40 mg PO 0600 [facility] Last Admin: 10/26/17 05:32 Dose: 40 mg Sertraline HCl (Zoloft) 50 mg PO DAILY [facility] Last Admin: 10/25/17 09:54 Dose: 50 mg Spironolactone (Aldactone) 25 mg PO DAILY [facility] Last Admin: 10/24/17 10:44 Dose: 25 mg Warfarin Sodium (Coumadin) 3 mg PO 1800 [facility] PRN Reason: Protocol Last Admin: 10/24/17 17:04 Dose: 3 mg - Labs Labs: 10/25/17 05:45 10/25/17 05:45 PT 40.9 SECONDS (9.4-12.5) H 10/25/17 05:45 INR 3.47 10/25/17 05:45 APTT 46.0 Seconds (25.1-36.5) H 10/24/17 05:20 - Constitutional Appears: No Acute Distress - Eye Exam Eye Exam: Normal appearance - ENT Exam ENT Exam: Mucous Membranes Moist - Respiratory Exam Respiratory Exam: Decreased Breath Sounds, NORMAL BREATHING PATTERN - Cardiovascular Exam Cardiovascular Exam: +S1, +S2 - GI/Abdominal Exam GI & Abdominal Exam: Soft, Normal Bowel Sounds - Extremities Exam Extremities Exam: Normal Capillary Refill - Neurological Exam Neurological Exam: Alert, Awake, Oriented x3 - Psychiatric Exam Psychiatric exam: Normal Affect - Skin Skin Exam: Dry, Warm Assessment and Plan - Assessment and Plan (Free Text) Assessment: A 72 year old female who came in to the ER due to shortness of breath and productive cough. She was just recently discharged 09/20/17 from [facility] with similar symptoms.History of diastolic Congestive Heart Failure, hypertension, atrial fibrillation on coumadin.robotic assisted Left VATS with wedge resection and lymph node biopsy 06/2015, polypectomy,Smokes 3-4 cigs a day, Recent echo 05/30 LVEF 55%, moderate valvular aortic stenosis,moderate TR,mild MR. Acute on chronic exacerbation of COPD.acute on chronic exacerbation of congestive heart failure. Plan: Feels better, breathing better Continue nebulizer treatments Stable cardiac status Heart rate and blood pressure controlled On Lipitor 10 mg daily,Digoxin 0.25 mg daily, Cardizem CD 120 mg daily Lisinopril 10 mg daily,Solu medrol 40 mg every 8 hours,Lasix 40 mg BID Hold Coumadin,INR elevated Continue current treatment Continue current medications Discharge planning Will follow up Plan and treatment discussed with Dr. Mendez
[2017-10-26] MEDS: Budesonide 0.25 mg/2 ml Inhal Susp UD IH SCH ×2 (07:27→19:42)
[2017-10-26 07:58] LABS: GRAN # 11.2 (1.4-6.5); GRAN % 89.4 % (50.0-68.0); HEMOGLOBIN 13.9 g/dL (12.0-16.0); LYMPH # 0.9 (1.2-3.4); LYMPH % 7.3 % (22.0-35.0); MEAN CELL VOLUME 87.3 fl (80.0-105.0); MEAN CORPUSCULAR HEMOGLOBIN 29.4 pg (25.0-35.0); MEAN CORPUSCULAR HGB CONC 33.7 g/dl (31.0-37.0); MEAN PLATELET VOLUME 8.3 fl (7.0-11.0); MONO # 0.4 (0.1-0.6); MONO % 3.3 % (1.0-6.0); RBC 4.73 10^6/uL (3.5-6.1); RED CELL DISTRIBUTION WIDTH 14.2 % (11.5-14.5); WHITE BLOOD COUNT 12.5 10^3/ul (4.5-11.0)
[2017-10-26 08:01] LABS: INR 2.38; PROTHROMBIN TIME 27.9 SECONDS (9.4-12.5)
[2017-10-26 08:12] LABS: ALB/GLOB RATIO 1.6 (1.1-1.8); ALBUMIN 4.1 g/dL (3.0-4.8); ALT/SGPT 40 U/L (7-56); AST/SGOT 27 U/L (14-36); BLOOD UREA NITROGEN 18 mg/dL (7-21); CALCIUM 9.4 mg/dL (8.4-10.5); GFR AFRICAN-AMERICAN > 60; GFR NON-AFRICAN AMERICAN > 60
[2017-10-26] MEDS: levoFLOXacin 750 mg in D5W 750 MG/150 ML BAG IVPB SCH (10:04)
[2017-10-26] MEDS: guaiFENesin 600 mg ER Tab PO SCH ×2 (10:05→17:05)
[2017-10-26] MEDS: Levalbuterol 1.25 MG/3 ML Inhal Soln UD IH PRN (11:54)
[2017-10-26] MEDS: Digoxin 250 mcg (0.25 mg) Tab PO SCH (14:36)
--- NOTE | 2017-10-26 19:26 | US ---
HISTORY: Leg pain and swelling. Evaluate for DVT PHYSICIAN(S): Enrique Soto MD. TECHNIQUE: Duplex sonography and color-flow Doppler with graded compression were used to evaluate the deep venous systems of both lower extremities. FINDINGS: The visualized deep venous systems of both lower extremities are sonographically normal and compressible. Normal wave forms and augmentation are seen. There is no sonographic evidence for deep venous thrombosis in the visualized segments of both lower extremities. IMPRESSION: No sonographic evidence for deep venous thrombosis in the visualized segments of both lower extremities.
[2017-10-26] MEDS: diltiaZEM 120 mg/24 Hours CD Cap PO SCH (20:09)
[2017-10-27] MEDS: Levalbuterol 1.25 MG/3 ML Inhal Soln UD IH SCH ×4 (02:53→19:55)
[2017-10-27] MEDS: MethylPREDNISolone 40 mg Vial IVP SCH ×3 (05:56→22:56)
[2017-10-27] MEDS: Pantoprazole 40 mg EC Tab PO SCH (05:56)
[2017-10-27] MEDS: Budesonide 0.25 mg/2 ml Inhal Susp UD IH SCH ×2 (07:45→19:55)
[2017-10-27 07:52] LABS: GRAN # 10.66 (1.4-6.5); GRAN % 86.9 % (50.0-68.0); LYMPH # 0.8 (1.2-3.4); LYMPH % 6.6 % (22.0-35.0); MEAN CELL VOLUME 86.3 fl (80.0-105.0); MEAN CORPUSCULAR HEMOGLOBIN 29.6 pg (25.0-35.0); MEAN CORPUSCULAR HGB CONC 34.3 g/dl (31.0-37.0); MEAN PLATELET VOLUME 8.4 fl (7.0-11.0); MONO # 0.8 (0.1-0.6); MONO % 6.5 % (1.0-6.0); RBC 4.73 10^6/uL (3.5-6.1); RED CELL DISTRIBUTION WIDTH 13.9 % (11.5-14.5); WHITE BLOOD COUNT 12.3 10^3/ul (4.5-11.0)
[2017-10-27 07:55] LABS: INR 1.89
[2017-10-27 08:15] LABS: ALB/GLOB RATIO 1.6 (1.1-1.8); ALBUMIN 3.9 g/dL (3.0-4.8); ALT/SGPT 37 U/L (7-56); AST/SGOT 22 U/L (14-36); BLOOD UREA NITROGEN 28 mg/dL (7-21); CALCIUM 9.3 mg/dL (8.4-10.5); GFR AFRICAN-AMERICAN > 60; GFR NON-AFRICAN AMERICAN > 60
[2017-10-27] MEDS: levoFLOXacin 750 mg in D5W 750 MG/150 ML BAG IVPB SCH (10:09)
[2017-10-27] MEDS: guaiFENesin 600 mg ER Tab PO SCH ×2 (10:11→17:37)
--- NOTE | 2017-10-27 12:46 | CP.PCM.PN ---
<Froylan Lucero - Last Filed: 10/27/17 13:19> Subjective - Date & Time of Evaluation Date of Evaluation: 10/27/17 Time of Evaluation: 12:44 - Subjective Subjective: Froylan Lucero PGY1 Progress Note for Dr. Alia Mcfadden Ms. Arciniega was examined at bedside this morning. She complained of shortness of breath overnight. She also complained of nausea and anal pain which she described as burning. She has been using over the counter topical hydrocortisone to the area. She denies any chest pain, dizziness, abdominal pain , vomiting. Patient expressed that she does not want to go to rehab facility upon discharge and prefers to go home. Objective - Vital Signs/Intake and Output Vital Signs (last 24 hours): Temp Pulse Resp BP Pulse Ox 97.9 F 91 H 20 140/82 98 10/27/17 07:49 10/27/17 10:10 10/27/17 07:49 10/27/17 10:10 10/27/17 07:49 Intake and Output: 10/27/17 10/27/17 06:59 18:59 Intake Total 120 Balance 120 - Medications Medications: Current Medications Acetaminophen (Tylenol 325mg Tab) 650 mg PO Q6H PRN PRN Reason: Headache Last Admin: 10/26/17 21:20 Dose: 650 mg Alprazolam (Xanax) 1 mg PO TID PRN; Protocol PRN Reason: Anxiety Last Admin: 10/27/17 10:11 Dose: 1 mg Atorvastatin Calcium (Lipitor) 10 mg PO DIN [facility] Last Admin: 10/26/17 17:05 Dose: 10 mg Budesonide (Pulmicort Respules) 0.25 mg IH [id number] [facility] Last Admin: 10/27/17 07:45 Dose: 0.25 mg Digoxin (Lanoxin) 0.25 mg PO 1400 [facility] Last Admin: 10/26/17 14:36 Dose: 0.25 mg Diltiazem HCl (Cardizem Cd) 120 mg PO 2000 [facility] Last Admin: 10/26/17 20:09 Dose: 120 mg Furosemide (Lasix) 40 mg IVP 0800,1400 [facility] Last Admin: 10/27/17 10:10 Dose: 40 mg Guaifenesin (Mucinex La) 600 mg PO BID [facility] Last Admin: 10/27/17 10:11 Dose: 600 mg Levofloxacin/Dextrose (Levaquin 750mg) 750 mg in 150 mls @ 100 mls/hr IVPB DAILY [facility] PRN Reason: Protocol Stop: 10/29/17 10:01 Last Admin: 10/27/17 10:09 Dose: 100 mls/hr Levalbuterol HCl (Xopenex) 1.25 mg IH [id number] [facility] Last Admin: 10/27/17 07:45 Dose: 1.25 mg Levalbuterol HCl (Xopenex) 1.25 mg IH Q2H PRN PRN Reason: Shortness of Breath Last Admin: 10/26/17 11:54 Dose: 1.25 mg Lisinopril (Zestril) 10 mg PO DAILY [facility] Last Admin: 10/27/17 10:10 Dose: 10 mg Methylprednisolone (Solu-Medrol) 40 mg IVP Q8H [facility] Last Admin: 10/27/17 05:56 Dose: 40 mg Pantoprazole Sodium (Protonix Ec Tab) 40 mg PO 0600 [facility] Last Admin: 10/27/17 05:56 Dose: 40 mg Sertraline HCl (Zoloft) 50 mg PO DAILY [facility] Last Admin: 10/27/17 10:11 Dose: 50 mg Warfarin Sodium (Coumadin) 2 mg PO 1800 [facility] PRN Reason: Protocol Last Admin: 10/26/17 17:05 Dose: 2 mg - Labs Labs: 10/27/17 07:00 10/27/17 07:00 PT 22.0 SECONDS (9.4-12.5) H 10/27/17 07:00 INR 1.89 10/27/17 07:00 APTT 46.0 Seconds (25.1-36.5) H 10/24/17 05:20 - Constitutional Appears: Well, No Acute Distress - Head Exam Head Exam: ATRAUMATIC, NORMOCEPHALIC - Eye Exam Eye Exam: EOMI, Normal appearance - ENT Exam ENT Exam: Mucous Membranes Moist - Respiratory Exam Respiratory Exam: Clear to Ausculation Bilateral, NORMAL BREATHING PATTERN. absent: Decreased Breath Sounds, Rales, Rhonchi, Wheezes - Cardiovascular Exam Cardiovascular Exam: REGULAR RHYTHM, +S1, +S2. absent: Gallop, Rubs, Murmur - GI/Abdominal Exam GI & Abdominal Exam: Soft, Normal Bowel Sounds. absent: Distended, Guarding, Tenderness - Rectal Exam Rectal Exam: NORMAL INSPECTION. absent: Hemorrhoids Additional comments: minimal erythema surrounding anus. no hemorrhoids or fissures appreciated. no obvious blood. no masses felt. - Extremities Exam Extremities Exam: Pedal Edema. absent: Tenderness - Back Exam Back Exam: NORMAL INSPECTION - Neurological Exam Neurological Exam: Alert, Awake, Oriented x3 - Skin Skin Exam: Normal Color Assessment and Plan - Assessment and Plan (Free Text) Assessment: 72 y/o F, PMH of Afib on coumadin, COPD, Diastolic CHF, Anxiety, HTN, w/ SOB and productive cough admitted for acute COPD exacerbation Plan: Acute COPD Exacerbation - patient complained of shortness of breath last night - Leukocytosis from 9.6 to 12.3 today likely secondary to steroid administration - CXR: No active disease process - continue Solumedrol 40mg IV Q8, Xopenex 1.25mg Q2 PRN and Q6 [facility], Pulmicort 0.25 Q12 [facility] - Levaquin 750mg - Mucinex 600mg BID for cough - Blood cultures negative at 48 hours - Pending sputum cultures, RSV Acute Exacerbation of CHF - Diastolic CHF w/ last known EF of 55-60% (05/2017) - continue Lasix, Lisinopril - d/c Spironolactone, as per Dr. Mendez. Na+ 137 today. - Will replete electrolytes as needed - Cardiology consulted - Dr. Mendez, recs appreciated Atrial Fibrillation, Chronic - INR 1.89 today - Continue Coumadin 2mg - Continue digoxin and Diltiazem for rate control - Monitoring INR at therapeutic level of 2-2.5 per cardio - Cardiology consulted - gian Alva appreciated Lower Extremity Tenderness - LE duplex ultrasound: unremarkable - etiology: chronic edematous changes due to CHF, DVT less likely Hyperlipidemia - continue statin Anxiety - Continue home Xanax 1mg - Zoloft Tobacco Abuse - Advised cessation DVT PPX: Sequential Compression Devices GI PPX: Protonix Diet: Heart Healthy Physical Therapy recommends Subacute Rehab, however patient prefers home. Patient will follow up with her daughter and make a decision soon. Dispo: upon discharge patient will be scheduled to follow up with her PMD Dr. Victoria Patient discussed with Dr. Mcfadden <Alia Mcfadden R - Last Filed: 10/28/17 15:50> Objective - Vital Signs/Intake and Output Vital Signs (last 24 hours): Temp Pulse Resp BP Pulse Ox 98 F 92 H 18 147/90 93 L 10/28/17 15:08 10/28/17 15:08 10/28/17 15:08 10/28/17 15:08 10/28/17 15:08 Intake and Output: 10/28/17 10/28/17 06:59 18:59 Intake Total 1020 Balance 1020 - Medications Medications: Current Medications Acetaminophen (Tylenol 325mg Tab) 650 mg PO Q6H PRN PRN Reason: Headache Last Admin: 10/28/17 13:11 Dose: 650 mg Alprazolam (Xanax) 1 mg PO TID PRN; Protocol PRN Reason: Anxiety Last Admin: 10/28/17 14:51 Dose: 1 mg Atorvastatin Calcium (Lipitor) 10 mg PO DIN [facility] Last Admin: 10/27/17 17:37 Dose: 10 mg Budesonide (Pulmicort Respules) 0.25 mg IH [id number] [facility] Last Admin: 10/28/17 07:33 Dose: 0.25 mg Digoxin (Lanoxin) 0.25 mg PO 1400 [facility] Last Admin: 10/28/17 14:51 Dose: 0.25 mg Diltiazem HCl (Cardizem Cd) 120 mg PO 2000 [facility] Last Admin: 10/27/17 20:47 Dose: 120 mg Furosemide (Lasix) 20 mg PO DAILY [facility] Guaifenesin (Mucinex La) 600 mg PO BID [facility] Last Admin: 10/28/17 10:23 Dose: 600 mg Levalbuterol HCl (Xopenex) 1.25 mg IH [id number] [facility] Last Admin: 10/28/17 14:12 Dose: 1.25 mg Levalbuterol HCl (Xopenex) 1.25 mg IH Q2H PRN PRN Reason: Shortness of Breath Last Admin: 10/26/17 11:54 Dose: 1.25 mg Lisinopril (Zestril) 10 mg PO DAILY [facility] Last Admin: 10/28/17 10:23 Dose: 10 mg Methylprednisolone (Solu-Medrol) 40 mg IVP Q12 [facility] Last Admin: 10/28/17 10:27 Dose: 40 mg Pantoprazole Sodium (Protonix Ec Tab) 40 mg PO 0600 [facility] Last Admin: 10/28/17 06:53 Dose: 40 mg Sertraline HCl (Zoloft) 50 mg PO DAILY [facility] Last Admin: 10/28/17 10:23 Dose: 50 mg Warfarin Sodium (Coumadin) 2 mg PO 1800 [facility] PRN Reason: Protocol Last Admin: 10/27/17 17:38 Dose: 2 mg - Labs Labs: 10/28/17 06:40 10/28/17 06:40 PT 23.9 SECONDS (9.4-12.5) H 10/28/17 10:00 INR 2.05 10/28/17 10:00 APTT 33.9 Seconds (25.1-36.5) 10/28/17 10:00 Attending/Attestation - Attestation I have personally seen and examined this patient.: Yes I have fully participated in the care of the patient.: Yes I have reviewed all pertinent clinical information, including history, physical exam and plan: Yes Notes (Text): Patient seen and examined by me at 8:40AM with resident 10/27/17. Case including HPI, physical exam, and assessment and plan discussed with resident. Agree with above with following additions/corrections. Patient states she is still not feeling good. Complains of rectal "burning and pain." States that this happens at home and she uses over the counter cortisone cream with relief. She denies any blood in the stool or on toilet paper. She denies any history of hemorrhoids. Headache improved today Still with shortness of breath and cough. No dizziness or change in vision. No chest pain or palpitations. No nausea, vomiting, or abdominal pain. No fevers or chills. No dysuria. Physical exam: Gen: Awake and alert sitting up in bed in no acute distress HEENT: Normocephalic atraumatic. Extraocular muscles intact, pupils equal reactive. Oropharynx is pink and moist, no pharyngeal erythema or exudate appreciated. Neck is supple. Cardiovascular: Irregularly irregular S1, S2. No murmurs, rubs, or gallops appreciated Pulmonary: Normal respiratory effort. Speaking in full sentences. Decreased breath sounds. Coarse breath sounds with coughing. No rales appreciated. Gastrointestinal: Soft, nontender, nondistended, positive bowel sounds all 4 quadrants, no guarding. Musculoskeletal: Normal range of motion all extremities, mild lower extremity edema. Positive bilateral lower extremity tenderness Central nervous system: AAO x 3. 5/5 muscle strength all extremities. CN 2-12 grossly intact Dermatologic: Skin warm and dry, ecchymosis right forearm, left lower extremity Assessment and plan:Patient is a 72-year-old female with past medical history significant for nonobstructive coronary artery disease, cardiomyopathy, atrial fibrillation maintained on Coumadin, COPD, diastolic congestive heart failure, hypertension, and anxiety that presented to the emergency room with progressive shortness of breath and productive cough. 1. Acute COPD exacerbation. Improving. Continue with O2 via nasal cannula as needed. Continue nebulizer treatments. Continue budesonide. Continue Solu- Medrol 40 mg IV every 8 hours, will need to taper. Continue Levaquin. Continue Mucinex 2. Acute on chronic diastolic CHF exacerbation. BNP elevated from baseline. MUGA scan 09/17/2017 showed a preserved EF of 56%. Cardiology following, recommendations appreciated. Continue with Lasix 20 mg IV every 12 hours. Continue lisinopril. Will hold spironolactone for now as discussed with cardiology. 3. Atrial fibrillation. Continue digoxin and Cardizem. Continue Coumadin Monitor INR and adjust Coumadin dose as needed. INR goal of 2-2.5 per cardiology. 4. Nonobstructive coronary artery disease. Cardiomyopathy. No acute issues. Continue home lisinopril, Coumadin, and Lipitor. 5. Hypertension. Continue home Cardizem and lisinopril. Continue Lasix 6. Hyponatremia. Stable. Maybe secondary to diuretics. Spironolactone held for now. Continue to monitor. 7. Anxiety. Continue home Zoloft and Xanax 8. Tobacco abuse. Patient counseled at length on cessation. 9. Bilateral leg pain. Bilateral lower extremity venous Dopplers negative for DVT 10. Rectal burning. Rectal exam did not show any signs of infection or hemorrhoids, no irritation seen. Continue to monitor for now. 11. GI/DVT prophylaxis. Protonix and Coumadin. 12. Patient is a full code Case was discussed in detail with the patient regarding current diagnosis and treatment plan
[2017-10-27] MEDS: Digoxin 250 mcg (0.25 mg) Tab PO SCH (14:35)
[2017-10-27] MEDS: diltiaZEM 120 mg/24 Hours CD Cap PO SCH (20:47)
[2017-10-28] MEDS: Levalbuterol 1.25 MG/3 ML Inhal Soln UD IH SCH ×4 (01:28→21:50)
[2017-10-28] MEDS: Pantoprazole 40 mg EC Tab PO SCH (06:53)
[2017-10-28] MEDS: MethylPREDNISolone 40 mg Vial IVP SCH ×3 (06:53→23:12)
[2017-10-28 07:13] LABS: GRAN # 11.11 (1.4-6.5); GRAN % 87.2 % (50.0-68.0); HEMOGLOBIN 14.5 g/dL (12.0-16.0); LYMPH # 0.8 (1.2-3.4); LYMPH % 6.6 % (22.0-35.0); MEAN CELL VOLUME 85.9 fl (80.0-105.0); MEAN CORPUSCULAR HEMOGLOBIN 29.2 pg (25.0-35.0); MEAN PLATELET VOLUME 8.2 fl (7.0-11.0); MONO # 0.8 (0.1-0.6); MONO % 6.2 % (1.0-6.0); RBC 4.96 10^6/uL (3.5-6.1); RED CELL DISTRIBUTION WIDTH 13.9 % (11.5-14.5); WHITE BLOOD COUNT 12.7 10^3/ul (4.5-11.0)
[2017-10-28 07:25] LABS: ALB/GLOB RATIO 1.6 (1.1-1.8); ALBUMIN 3.8 g/dL (3.0-4.8); ALT/SGPT 42 U/L (7-56); AST/SGOT 22 U/L (14-36); BLOOD UREA NITROGEN 29 mg/dL (7-21); CALCIUM 9.1 mg/dL (8.4-10.5); GFR AFRICAN-AMERICAN > 60; GFR NON-AFRICAN AMERICAN > 60
[2017-10-28] MEDS: Budesonide 0.25 mg/2 ml Inhal Susp UD IH SCH ×2 (07:33→21:50)
[2017-10-28] MEDS: levoFLOXacin 750 mg in D5W 750 MG/150 ML BAG IVPB SCH (10:22)
[2017-10-28] MEDS: guaiFENesin 600 mg ER Tab PO SCH ×2 (10:23→17:52)
[2017-10-28 11:03] LABS: INR 2.05; PROTHROMBIN TIME 23.9 SECONDS (9.4-12.5)
[2017-10-28 11:05] LABS: PARTIAL THROMBOPLASTIN TIME 33.9 Seconds (25.1-36.5)
[2017-10-28] MEDS: Digoxin 250 mcg (0.25 mg) Tab PO SCH (14:51)
--- NOTE | 2017-10-28 16:01 | CP.PCM.PN ---
<Froylan Lucero - Last Filed: 10/28/17 16:10> Subjective - Date & Time of Evaluation Date of Evaluation: 10/28/17 Time of Evaluation: 15:58 - Subjective Subjective: Froylan Lucero PGY1 Progress Note for Dr. Alia Mcfdaden Ms. Arciniega was examined at bedside this morning. She complains of continuation of shortness of breath overnight and this morning. She denies any dizziness, chest pain, nausea, vomiting, dysuria. She was agreeable to TCU for placement. Objective - Vital Signs/Intake and Output Vital Signs (last 24 hours): Temp Pulse Resp BP Pulse Ox 98 F 92 H 18 147/90 93 L 10/28/17 15:08 10/28/17 15:08 10/28/17 15:08 10/28/17 15:08 10/28/17 15:08 Intake and Output: 10/28/17 10/28/17 06:59 18:59 Intake Total 1020 Balance 1020 - Medications Medications: Current Medications Acetaminophen (Tylenol 325mg Tab) 650 mg PO Q6H PRN PRN Reason: Headache Last Admin: 10/28/17 13:11 Dose: 650 mg Alprazolam (Xanax) 1 mg PO TID PRN; Protocol PRN Reason: Anxiety Last Admin: 10/28/17 14:51 Dose: 1 mg Atorvastatin Calcium (Lipitor) 10 mg PO DIN [facility] Last Admin: 10/27/17 17:37 Dose: 10 mg Budesonide (Pulmicort Respules) 0.25 mg IH [id number] [facility] Last Admin: 10/28/17 07:33 Dose: 0.25 mg Digoxin (Lanoxin) 0.25 mg PO 1400 [facility] Last Admin: 10/28/17 14:51 Dose: 0.25 mg Diltiazem HCl (Cardizem Cd) 120 mg PO 2000 [facility] Last Admin: 10/27/17 20:47 Dose: 120 mg Furosemide (Lasix) 20 mg PO DAILY [facility] Guaifenesin (Mucinex La) 600 mg PO BID [facility] Last Admin: 10/28/17 10:23 Dose: 600 mg Levalbuterol HCl (Xopenex) 1.25 mg IH [id number] [facility] Last Admin: 10/28/17 14:12 Dose: 1.25 mg Levalbuterol HCl (Xopenex) 1.25 mg IH Q2H PRN PRN Reason: Shortness of Breath Last Admin: 10/26/17 11:54 Dose: 1.25 mg Lisinopril (Zestril) 10 mg PO DAILY [facility] Last Admin: 10/28/17 10:23 Dose: 10 mg Methylprednisolone (Solu-Medrol) 40 mg IVP Q12 [facility] Last Admin: 10/28/17 10:27 Dose: 40 mg Pantoprazole Sodium (Protonix Ec Tab) 40 mg PO 0600 [facility] Last Admin: 10/28/17 06:53 Dose: 40 mg Sertraline HCl (Zoloft) 50 mg PO DAILY [facility] Last Admin: 10/28/17 10:23 Dose: 50 mg Warfarin Sodium (Coumadin) 2 mg PO 1800 [facility] PRN Reason: Protocol Last Admin: 10/27/17 17:38 Dose: 2 mg - Labs Labs: 10/28/17 06:40 10/28/17 06:40 PT 23.9 SECONDS (9.4-12.5) H 10/28/17 10:00 INR 2.05 10/28/17 10:00 APTT 33.9 Seconds (25.1-36.5) 10/28/17 10:00 - Constitutional Appears: Well, No Acute Distress - Head Exam Head Exam: ATRAUMATIC, NORMOCEPHALIC - Eye Exam Eye Exam: Normal appearance, PERRL Pupil Exam: NORMAL ACCOMODATION - ENT Exam ENT Exam: Mucous Membranes Moist - Respiratory Exam Additional comments: decreased breath sounds, coarse breath sounds appreciated. - Cardiovascular Exam Cardiovascular Exam: REGULAR RHYTHM, +S1, +S2 - GI/Abdominal Exam GI & Abdominal Exam: Soft, Normal Bowel Sounds. absent: Distended, Guarding, Tenderness - Extremities Exam Extremities Exam: Pedal Edema - Neurological Exam Neurological Exam: Alert, Awake, Oriented x3 - Skin Skin Exam: Normal Color Assessment and Plan - Assessment and Plan (Free Text) Assessment: 72 y/o F, PMH of Afib on coumadin, COPD, Diastolic CHF, Anxiety, HTN, w/ SOB and productive cough admitted for acute COPD exacerbation Plan: Acute COPD Exacerbation - patient continued to complain of shortness of breath last night - Leukocytosis from 9.6 to 12.3 today likely secondary to steroid administration - CXR: No active disease process - decrease Solumedrol 40mg IV Q12 - continue Xopenex 1.25mg Q2 PRN and Q6 [facility], Pulmicort 0.25 Q12 [facility] - Levaquin 750mg Day 4 - continue Mucinex 600mg BID for cough - Blood cultures negative x 4 - Pending sputum cultures, RSV - dispo: transfer to TCU - follow up with her PMD Dr. Victoria upon d/c Acute Exacerbation of CHF - Diastolic CHF w/ last known EF of 55-60% (05/2017) - continue Lisinopril - decrease lasix to 20mg PO daily as per Dr. Mendez - Will replete electrolytes as needed - Cardiology consulted - Dr. Mendez, gian appreciated Atrial Fibrillation, Chronic - INR 2.05 today - Continue Coumadin 2mg - Continue digoxin and Diltiazem for rate control - Monitoring INR at therapeutic level of 2-2.5 per cardio - Cardiology consulted - gian Alva appreciated Lower Extremity Tenderness - LE duplex ultrasound: unremarkable - etiology: chronic edematous changes due to CHF, DVT less likely Hyperlipidemia - continue statin Anxiety - Continue home Xanax 1mg - Zoloft Tobacco Abuse - Advised cessation DVT PPX: Sequential Compression Devices GI PPX: Protonix Diet: Heart Healthy Physical Therapy recommends Subacute Rehab. Patient prefers home, but will agree to transfer to TCU. Patient discussed with Dr. Mcfadden <Alia Mcfadden - Last Filed: 10/28/17 21:22> Objective - Vital Signs/Intake and Output Vital Signs (last 24 hours): Temp Pulse Resp BP Pulse Ox 98 F 101 H 18 112/82 93 L 10/28/17 15:08 10/28/17 20:51 10/28/17 15:08 10/28/17 20:51 10/28/17 15:08 - Medications Medications: Current Medications Acetaminophen (Tylenol 325mg Tab) 650 mg PO Q6H PRN PRN Reason: Headache Last Admin: 10/28/17 20:50 Dose: 650 mg Alprazolam (Xanax) 1 mg PO TID PRN; Protocol PRN Reason: Anxiety Last Admin: 10/28/17 20:49 Dose: 1 mg Atorvastatin Calcium (Lipitor) 10 mg PO DIN [facility] Last Admin: 10/28/17 17:52 Dose: 10 mg Budesonide (Pulmicort Respules) 0.25 mg IH [id number] [facility] Last Admin: 10/28/17 07:33 Dose: 0.25 mg Digoxin (Lanoxin) 0.25 mg PO 1400 [facility] Last Admin: 10/28/17 14:51 Dose: 0.25 mg Diltiazem HCl (Cardizem Cd) 120 mg PO 2000 [facility] Last Admin: 10/28/17 20:51 Dose: 120 mg Furosemide (Lasix) 20 mg PO DAILY [facility] Guaifenesin (Mucinex La) 600 mg PO BID [facility] Last Admin: 10/28/17 17:52 Dose: 600 mg Levalbuterol HCl (Xopenex) 1.25 mg IH [id number] [facility] Last Admin: 10/28/17 14:12 Dose: 1.25 mg Levalbuterol HCl (Xopenex) 1.25 mg IH Q2H PRN PRN Reason: Shortness of Breath Last Admin: 10/26/17 11:54 Dose: 1.25 mg Lisinopril (Zestril) 10 mg PO DAILY [facility] Last Admin: 10/28/17 10:23 Dose: 10 mg Methylprednisolone (Solu-Medrol) 40 mg IVP Q12 [facility] Last Admin: 10/28/17 10:27 Dose: 40 mg Pantoprazole Sodium (Protonix Ec Tab) 40 mg PO 0600 [facility] Last Admin: 10/28/17 06:53 Dose: 40 mg Sertraline HCl (Zoloft) 50 mg PO DAILY [facility] Last Admin: 10/28/17 10:23 Dose: 50 mg Warfarin Sodium (Coumadin) 2 mg PO 1800 [facility] PRN Reason: Protocol Last Admin: 10/28/17 17:52 Dose: 2 mg - Labs Labs: 10/28/17 06:40 10/28/17 06:40 PT 23.9 SECONDS (9.4-12.5) H 10/28/17 10:00 INR 2.05 10/28/17 10:00 APTT 33.9 Seconds (25.1-36.5) 10/28/17 10:00 Attending/Attestation - Attestation I have personally seen and examined this patient.: Yes I have fully participated in the care of the patient.: Yes I have reviewed all pertinent clinical information, including history, physical exam and plan: Yes Notes (Text): Patient seen and examined by me at 8:30AM with resident. Case including HPI, physical exam, and assessment and plan discussed with resident. Agree with above with following additions/corrections. Patient states she is still not feeling well. States that she is feeling short of breath and very exhausted when walking from bathroom to bed. Patient is reconsidering going to rehab. Rectal burning has improved. Headache resolved. No dizziness or change in vision. No chest pain or palpitations. No nausea, vomiting, or abdominal pain. No fevers or chills. No dysuria. Physical exam: Gen: Awake and alert sitting up in bed in no acute distress HEENT: Normocephalic atraumatic. Extraocular muscles intact, pupils equal reactive. Oropharynx is pink and moist, no pharyngeal erythema or exudate appreciated. Neck is supple. Cardiovascular: Irregularly irregular S1, S2. No murmurs, rubs, or gallops appreciated Pulmonary: Normal respiratory effort. Speaking in full sentences. Decreased breath sounds. Coarse breath sounds with coughing. No rales appreciated. Gastrointestinal: Soft, nontender, nondistended, positive bowel sounds all 4 quadrants, no guarding. Musculoskeletal: Normal range of motion all extremities, mild lower extremity edema. Positive bilateral lower extremity tenderness Central nervous system: AAO x 3. 5/5 muscle strength all extremities. CN 2-12 grossly intact Dermatologic: Skin warm and dry, ecchymosis right forearm, left lower extremity Assessment and plan:Patient is a 72-year-old female with past medical history significant for nonobstructive coronary artery disease, cardiomyopathy, atrial fibrillation maintained on Coumadin, COPD, diastolic congestive heart failure, hypertension, and anxiety that presented to the emergency room with progressive shortness of breath and productive cough. 1. Acute COPD exacerbation. Improving. Continue with O2 via nasal cannula as needed. Continue nebulizer treatments. Continue budesonide. Solu-Medrol decreased 40 mg IV every 12 hours, continue to taper. Continue Levaquin. Continue Mucinex 2. Acute on chronic diastolic CHF exacerbation. MUGA scan 09/17/2017 showed a preserved EF of 56%. Cardiology following, recommendations appreciated. Will change lasix to 20mg PO daily secondary to hyponatremia/hypochloremia/elevated BUN. Continue lisinopril. Continue to hold spironolactone for now as discussed with cardiology. 3. Atrial fibrillation. Continue digoxin and Cardizem. Continue Coumadin Monitor INR and adjust Coumadin dose as needed. INR goal of 2-2.5 per cardiology. 4. Nonobstructive coronary artery disease. Cardiomyopathy. No acute issues. Continue home lisinopril, Coumadin, and Lipitor. 5. Hypertension. Continue home Cardizem and lisinopril. Continue Lasix 6. Hyponatremia. Stable. Maybe secondary to diuretics. Spironolactone held for now. Change lasix to 20mg PO daily. Continue to monitor. 7. Anxiety. Continue home Zoloft and Xanax 8. Tobacco abuse. Patient counseled at length on cessation. 9. Bilateral leg pain. Bilateral lower extremity venous Dopplers negative for DVT 10. Rectal burning. Improved. Rectal exam did not show any signs of infection or hemorrhoids, no irritation seen. Continue to monitor for now. 11. GI/DVT prophylaxis. Protonix and Coumadin. 12. Patient is a full code Case was discussed in detail with the patient regarding current diagnosis and treatment erlin
[2017-10-28] MEDS: diltiaZEM 120 mg/24 Hours CD Cap PO SCH (20:51)
[2017-10-29] MEDS: Levalbuterol 1.25 MG/3 ML Inhal Soln UD IH SCH ×4 (04:37→18:59)
[2017-10-29] MEDS: Pantoprazole 40 mg EC Tab PO SCH (06:28)
--- NOTE | 2017-10-29 07:32 | CP.PCM.PN ---
Subjective - Date & Time of Evaluation Date of Evaluation: 10/29/17 Time of Evaluation: 07:31 - Subjective Subjective: Malcolm Ramirez PGY1 Internal Medicine Progress Note for Dr. Damion PollockF seen and evaluated this morning at bedside. Patient states her productive cough has improved, however the shortness of breath still persists. Breathing treatments are helpful for a short period of time. She continues to feel weak and complains of back pain. She is able to ambulate with a walker. Denies fever , chills, headache, dizziness, nausea, vomiting, diarrhea, chest pain, palpitations, abdominal pain, or urinary symptoms. Objective - Vital Signs/Intake and Output Vital Signs (last 24 hours): Temp Pulse Resp BP Pulse Ox 98 F 101 H 18 112/82 93 L 10/28/17 15:08 10/28/17 20:51 10/28/17 15:08 10/28/17 20:51 10/28/17 15:08 Intake and Output: 10/29/17 10/29/17 06:59 18:59 Intake Total 540 Balance 540 - Medications Medications: Current Medications Acetaminophen (Tylenol 325mg Tab) 650 mg PO Q6H PRN PRN Reason: Headache Last Admin: 10/29/17 06:40 Dose: 650 mg Alprazolam (Xanax) 1 mg PO TID PRN; Protocol PRN Reason: Anxiety Last Admin: 10/28/17 20:49 Dose: 1 mg Atorvastatin Calcium (Lipitor) 10 mg PO DIN [facility] Last Admin: 10/28/17 17:52 Dose: 10 mg Budesonide (Pulmicort Respules) 0.25 mg IH [id number] [facility] Last Admin: 10/28/17 21:50 Dose: 0.25 mg Digoxin (Lanoxin) 0.25 mg PO 1400 [facility] Last Admin: 10/28/17 14:51 Dose: 0.25 mg Diltiazem HCl (Cardizem Cd) 120 mg PO 2000 [facility] Last Admin: 10/28/17 20:51 Dose: 120 mg Furosemide (Lasix) 20 mg PO DAILY [facility] Guaifenesin (Mucinex La) 600 mg PO BID [facility] Last Admin: 10/28/17 17:52 Dose: 600 mg Levalbuterol HCl (Xopenex) 1.25 mg IH [id number] [facility] Last Admin: 10/29/17 04:37 Dose: Not Given Levalbuterol HCl (Xopenex) 1.25 mg IH Q2H PRN PRN Reason: Shortness of Breath Last Admin: 10/26/17 11:54 Dose: 1.25 mg Lisinopril (Zestril) 10 mg PO DAILY [facility] Last Admin: 10/28/17 10:23 Dose: 10 mg Methylprednisolone (Solu-Medrol) 40 mg IVP Q12 [facility] Last Admin: 10/28/17 23:12 Dose: 40 mg Pantoprazole Sodium (Protonix Ec Tab) 40 mg PO 0600 [facility] Last Admin: 10/29/17 06:28 Dose: 40 mg Sertraline HCl (Zoloft) 50 mg PO DAILY [facility] Last Admin: 10/28/17 10:23 Dose: 50 mg Warfarin Sodium (Coumadin) 2 mg PO 1800 [facility] PRN Reason: Protocol Last Admin: 10/28/17 17:52 Dose: 2 mg - Labs Labs: 10/28/17 06:40 10/28/17 06:40 PT 23.9 SECONDS (9.4-12.5) H 10/28/17 10:00 INR 2.05 10/28/17 10:00 APTT 33.9 Seconds (25.1-36.5) 10/28/17 10:00 - Constitutional Appears: Well, Non-toxic, No Acute Distress - Head Exam Head Exam: ATRAUMATIC, NORMAL INSPECTION, NORMOCEPHALIC - Eye Exam Eye Exam: EOMI - Respiratory Exam Respiratory Exam: Wheezes. absent: Accessory Muscle Use, Chest Wall Tenderness , Respiratory Distress - Cardiovascular Exam Cardiovascular Exam: +S1, +S2. absent: Murmur - GI/Abdominal Exam GI & Abdominal Exam: Soft, Normal Bowel Sounds. absent: Tenderness - Rectal Exam Rectal Exam: Deferred - Neurological Exam Neurological Exam: Alert, Awake, Oriented x3 - Psychiatric Exam Psychiatric exam: Normal Affect, Normal Mood Assessment and Plan - Assessment and Plan (Free Text) Assessment: 72 y/o F, PMH of Afib on coumadin, COPD, Diastolic CHF, Anxiety, HTN, w/ SOB and productive cough admitted for acute COPD exacerbation Plan: Acute COPD Exacerbation - patient continued to complain of shortness of breath last night - Leukocytosis from 12.7 to 13.7 today likely secondary to steroid administration - CXR: No active disease process - decrease Solumedrol 40mg IV Q12 - continue Xopenex 1.25mg Q2 PRN and Q6 NORA, Pulmicort 0.25 Q12 [facility] - Levaquin 750mg Day 5 - continue Mucinex 600mg BID for cough - Blood cultures negative x 4 - Pending sputum cultures, RSV - dispo: transfer to TCU vs HWS pending PT evaluation - follow up with her PMD Dr. Victoria upon d/c Acute Exacerbation of CHF - Diastolic CHF w/ last known EF of 55-60% (05/2017) - continue Lisinopril - decrease lasix to 20mg PO daily as per Dr. Mendez - Will replete electrolytes as needed - Cardiology consulted - Dr. Mendez, recs appreciated Atrial Fibrillation, Chronic - INR 2.05 yesterday - Continue Coumadin 2mg - Continue digoxin and Diltiazem for rate control - Monitoring INR at therapeutic level of 2-2.5 per cardio - Cardiology consulted - Dr. Mendez, gian appreciated Lower Extremity Tenderness - LE duplex ultrasound: unremarkable - etiology: chronic edematous changes due to CHF, DVT less likely Hyperlipidemia - continue statin Anxiety - Continue home Xanax 1mg - Zoloft Tobacco Abuse - Advised cessation DVT PPX: Sequential Compression Devices GI PPX: Protonix Diet: Heart Healthy Physical Therapy to re-evaluate for TCU vs HWS. Patient discussed with Dr. Bogdan Ramirez PGY1
[2017-10-29] MEDS: Budesonide 0.25 mg/2 ml Inhal Susp UD IH SCH ×2 (07:41→18:59)
[2017-10-29 07:45] LABS: GRAN # 12.17 (1.4-6.5); GRAN % 88.7 % (50.0-68.0); HEMOGLOBIN 15.4 g/dL (12.0-16.0); LYMPH # 0.8 (1.2-3.4); LYMPH % 6.1 % (22.0-35.0); MEAN CELL VOLUME 85.7 fl (80.0-105.0); MEAN CORPUSCULAR HEMOGLOBIN 30.3 pg (25.0-35.0); MEAN CORPUSCULAR HGB CONC 35.3 g/dl (31.0-37.0); MEAN PLATELET VOLUME 8.2 fl (7.0-11.0); MONO # 0.7 (0.1-0.6); MONO % 5.2 % (1.0-6.0); RBC 5.09 10^6/uL (3.5-6.1); RED CELL DISTRIBUTION WIDTH 13.8 % (11.5-14.5); WHITE BLOOD COUNT 13.7 10^3/ul (4.5-11.0)
--- NOTE | 2017-10-29 07:54 | CP.PCM.PN ---
Subjective - Date & Time of Evaluation Date of Evaluation: 10/29/17 Time of Evaluation: 06:20 - Subjective Subjective: Awake, denies chest pain, feels tired Reason for consultation and follow up:Cardiac evaluation for shortness of breath , history of diastolic Congestive Heart Failure, hypertension, atrial fibrillation on coumadin Seen and examined by me and Dr. Mendez Objective - Vital Signs/Intake and Output Vital Signs (last 24 hours): Temp Pulse Resp BP Pulse Ox 98 F 101 H 18 112/82 93 L 10/28/17 15:08 10/28/17 20:51 10/28/17 15:08 10/28/17 20:51 10/28/17 15:08 Intake and Output: 10/29/17 10/29/17 06:59 18:59 Intake Total 540 Balance 540 - Medications Medications: Current Medications Acetaminophen (Tylenol 325mg Tab) 650 mg PO Q6H PRN PRN Reason: Headache Last Admin: 10/29/17 06:40 Dose: 650 mg Alprazolam (Xanax) 1 mg PO TID PRN; Protocol PRN Reason: Anxiety Last Admin: 10/28/17 20:49 Dose: 1 mg Atorvastatin Calcium (Lipitor) 10 mg PO DIN [facility] Last Admin: 10/28/17 17:52 Dose: 10 mg Budesonide (Pulmicort Respules) 0.25 mg IH [id number] [facility] Last Admin: 10/29/17 07:41 Dose: 0.25 mg Digoxin (Lanoxin) 0.25 mg PO 1400 [facility] Last Admin: 10/28/17 14:51 Dose: 0.25 mg Diltiazem HCl (Cardizem Cd) 120 mg PO 2000 [facility] Last Admin: 10/28/17 20:51 Dose: 120 mg Furosemide (Lasix) 20 mg PO DAILY [facility] Guaifenesin (Mucinex La) 600 mg PO BID [facility] Last Admin: 10/28/17 17:52 Dose: 600 mg Levalbuterol HCl (Xopenex) 1.25 mg IH [id number] [facility] Last Admin: 10/29/17 07:41 Dose: 1.25 mg Levalbuterol HCl (Xopenex) 1.25 mg IH Q2H PRN PRN Reason: Shortness of Breath Last Admin: 10/26/17 11:54 Dose: 1.25 mg Lisinopril (Zestril) 10 mg PO DAILY [facility] Last Admin: 10/28/17 10:23 Dose: 10 mg Methylprednisolone (Solu-Medrol) 40 mg IVP Q12 [facility] Last Admin: 10/28/17 23:12 Dose: 40 mg Pantoprazole Sodium (Protonix Ec Tab) 40 mg PO 0600 [facility] Last Admin: 10/29/17 06:28 Dose: 40 mg Sertraline HCl (Zoloft) 50 mg PO DAILY [facility] Last Admin: 10/28/17 10:23 Dose: 50 mg Warfarin Sodium (Coumadin) 2 mg PO 1800 [facility] PRN Reason: Protocol Last Admin: 10/28/17 17:52 Dose: 2 mg - Labs Labs: 10/29/17 06:45 10/28/17 06:40 PT 23.9 SECONDS (9.4-12.5) H 10/28/17 10:00 INR 2.05 10/28/17 10:00 APTT 33.9 Seconds (25.1-36.5) 10/28/17 10:00 - Constitutional Appears: No Acute Distress - Eye Exam Eye Exam: Normal appearance - ENT Exam ENT Exam: Mucous Membranes Moist - Respiratory Exam Respiratory Exam: Decreased Breath Sounds, Clear to Ausculation Bilateral, NORMAL BREATHING PATTERN - Cardiovascular Exam Cardiovascular Exam: +S1, +S2 - GI/Abdominal Exam GI & Abdominal Exam: Soft, Normal Bowel Sounds - Extremities Exam Extremities Exam: Normal Capillary Refill - Neurological Exam Neurological Exam: Alert, Awake, Oriented x3 - Psychiatric Exam Psychiatric exam: Normal Affect - Skin Skin Exam: Dry, Warm Assessment and Plan - Assessment and Plan (Free Text) Assessment: A 72 year old female who came in to the ER due to shortness of breath and productive cough. She was just recently discharged 09/20/17 from [facility] with similar symptoms.History of diastolic Congestive Heart Failure, hypertension, atrial fibrillation on coumadin.robotic assisted Left VATS with wedge resection and lymph node biopsy 06/2015, polypectomy,Smokes 3-4 cigs a day, Recent echo 05/30 LVEF 55%, moderate valvular aortic stenosis,moderate TR,mild MR. Acute on chronic exacerbation of COPD.acute on chronic exacerbation of congestive heart failure. Plan: Negative for DVT Breathing better though episodes of shortness of breath at night Continue nebulizer treatments Stable cardiac status On Lipitor 10 mg daily,Digoxin 0.25 mg daily, Cardizem CD 120 mg daily Lisinopril 10 mg daily,Solu medrol 40 mg every 8 hours,Lasix 40 mg BID Coumadin at 2 mg daily, INR therapeutic Continue current treatment Continue current medications Discharge planning Will follow up Plan and treatment discussed with Dr. Mendez
[2017-10-29 08:02] LABS: ALB/GLOB RATIO 1.7 (1.1-1.8); ALBUMIN 3.8 g/dL (3.0-4.8); ALT/SGPT 33 U/L (7-56); AST/SGOT 23 U/L (14-36); BLOOD UREA NITROGEN 37 mg/dL (7-21); CALCIUM 9.1 mg/dL (8.4-10.5); GFR AFRICAN-AMERICAN > 60; GFR NON-AFRICAN AMERICAN > 60
--- NOTE | 2017-10-29 08:24 | CP.PCM.CON ---
History of Present Illness - History of Present Illness History of Present Illness: Luis E Mcfadden- Internal Medicine Resident- Nephrology Consult Note on Behalf of Dr. Miller Subjective: CC: Shortness of Breath HPI: Patient is a 72 year old female with a past medical history of atrial fibrillation on coumadin, COPD, diastolic congestive heart failure, anxiety and HTN who was admitted for evaluation and treatment of acute exacerbation of her chronic COPD. States her shortness of breath has improved relative to baseline however still experiences significant shortness of breath on exertion. Nephrology is being consulted for management of her hyponatermia. Patient states that her sodium intake at home is limited as advised by her pocket setter in regards to her congestive heart failure. Also admits to drinking approximately 3 8fl oz glasses of water in additional to a 32fl oz bottle of water daily. Admits to urinary frequency after taking home diuretics. Denies urinary urgency, dysuria, blood in urine, and froth build up in urine. Further denies fever, chills, chest pain, SOB at rest, abdominal pain, nausea, vomiting , diarrhea, and constipation. 12 Point ROS negative except as indicated in HPI Past Medical History: Atrial fibrillation on coumadin, COPD, Diastolic Congestive Heart Failure, Anxiety, HTN Past Surgical History: Robotic assisted Left VATS with wedge resection and lymph node biopsy 06/2015, polypectomy Social History: Smokes 3-4 cigs a day, denies alcohol or drug use Family History: Mother-Cervical Cancer; Brother-Abdominal Cancer (Unknown primary) Allergies: Azithromycin Medications: please see MAR PMD: Dr. Casas Cardiology: Dr. Mendez Physical Examination: - Constitutional Appears: Non-toxic - Head Exam Head Exam: ATRAUMATIC, NORMAL INSPECTION, NORMOCEPHALIC - Eye Exam Eye Exam: EOMI - ENT Exam ENT Exam: Mucous Membranes Moist - Neck Exam Neck exam: Positive for: Full Rom - Respiratory Exam Respiratory Exam: Decreased Breath Sounds bilateral lower lobes - Cardiovascular Exam Cardiovascular Exam: normal s1, normal s2 - GI/Abdominal Exam GI & Abdominal Exam: Normal Bowel Sounds, Soft. absent: Tenderness - Extremities Exam Extremities exam: Positive for: full ROM, normal capillary refill, pedal edema ( +1 bilaterally), bruising noted on right forearm - Neurological Exam Neurological exam: Awake, alert, responds to verbal stimuli, follows commands, and moves extremities midline - Psychiatric Exam Psychiatric exam: Normal Affect - Skin Skin Exam: Ecchymosis (right foreram and bilateral lower extremities), Dry, Intact, Warm Assessment and Plan: Patient is a 72 year old female with a past medical history of atrial fibrillation on coumadin, COPD, diastolic congestive heart failure, anxiety and HTN who the nephrology team was being consulted for in order to manage of her hyponatermia. Hyponatremia - serum sodium levels reviewed, trended, and appreciated- sodium levels in the mid to high 120s sustained (baseline is ~130 meq/L) - no clinical signs/symptoms of hyponatremia noted- no confusion, lethargy, nausea/vomiting, headache, and/or significant weakness compared to baseline - potential etiologies: low solue intake/increased free water intake vs loop diuretic use vs ACEi induced syndrome of inappropriate secretion of antidiuretic hormone - serum osmolaity, urine osmolality, and urine sodium ordered and pending- will be difficult to attain accurate value as patient is receiving lasix - the acuteness of hyponatremia guides the speed the of correction--acute (< 48hours) requires rapid correction, in our patient this is a chronic issue (>48 hours) - goal correction of sodium is 0.25meq/hr-0.5meq/hr to avoid drastic osmotic changes to prevent development of osmotic demyelination syndrome - cannot start patient on IVF at this time due to elevated BNP in setting of acute exacerbation on chronic diastolic congestive heart failure (LVEF 59.3% on 05/30/2017) - recommend free water restriction to 1500cc over 24 hour period - further recs upon receiving ordered lab work Thank you for the opportunity in participating in the care of this patient. We will continue to follow with you. Patient seen, case discussed with, and plan approved by attending physician, Dr. Miller. Past Patient History - Infectious Disease Hx of Infectious Diseases: None - Past Medical History & Family History Past Medical History?: Yes - Past Social History Smoking Status: Light Smoker < 10 Cigarettes Daily Alcohol: None Drugs: Denies Home Situation {Lives}: With Family - CARDIAC Hx Cardiac Disorders: Yes Hx Congestive Heart Failure: Yes Hx Hypertension: Yes - PULMONARY Hx Chronic Obstructive Pulmonary Disease (COPD): Yes - NEUROLOGICAL Hx Neurological Disorder: Yes (headaches) Hx Dizziness: Yes - HEENT Hx HEENT Problems: No - RENAL Hx Chronic Kidney Disease: No - ENDOCRINE/METABOLIC Hx Endocrine Disorders: No - HEMATOLOGICAL/ONCOLOGICAL Hx Blood Disorders: No - INTEGUMENTARY Hx Dermatological Problems: No - MUSCULOSKELETAL/RHEUMATOLOGICAL Hx Musculoskeletal Disorders: Yes Hx Arthritis: Yes Hx Falls: Yes (fell couple days ago) Hx Unsteady Gait: Yes Other/Comment: hands "lock up", chronic pain to feet and lower legs 9/10 wakes pt up cramping pain, cramping to hands feet ankles legs - GASTROINTESTINAL Hx Gastrointestinal Disorders: Yes Hx Gastroesophageal Reflux: Yes - GENITOURINARY/GYNECOLOGICAL Hx Genitourinary Disorders: No - PSYCHIATRIC Hx Psychophysiologic Disorder: Yes Hx Anxiety: Yes Hx Depression: Yes Hx Substance Use: No - SURGICAL HISTORY Hx Surgeries: Yes (cardiac cath x1) Hx Cardiac Catheterization: Yes (X1) Hx Coronary Stent: Yes (unknown) Other/Comment: robotic left lower wedge resection and lymphaderectomy 06/2015, polypectomy, left lung nodule removed 2 yrs ago at [facility] benign - ANESTHESIA Hx Anesthesia: Yes Hx Anesthesia Reactions: No Hx Malignant Hyperthermia: No Meds Allergies/Adverse Reactions: Allergies Allergy/AdvReac Type Severity Reaction Status Date / Time azithromycin [From Zithromax] AdvReac Intermediate RASH Verified 10/22/17 10:22 - Medications Medications: Current Medications Acetaminophen (Tylenol 325mg Tab) 650 mg PO Q6H PRN PRN Reason: Headache Last Admin: 10/29/17 06:40 Dose: 650 mg Alprazolam (Xanax) 1 mg PO TID PRN; Protocol PRN Reason: Anxiety Last Admin: 10/28/17 20:49 Dose: 1 mg Atorvastatin Calcium (Lipitor) 10 mg PO DIN [facility] Last Admin: 10/28/17 17:52 Dose: 10 mg Budesonide (Pulmicort Respules) 0.25 mg IH [id number] [facility] Last Admin: 10/29/17 07:41 Dose: 0.25 mg Digoxin (Lanoxin) 0.25 mg PO 1400 [facility] Last Admin: 10/28/17 14:51 Dose: 0.25 mg Diltiazem HCl (Cardizem Cd) 120 mg PO 2000 [facility] Last Admin: 10/28/17 20:51 Dose: 120 mg Furosemide (Lasix) 20 mg PO DAILY [facility] Guaifenesin (Mucinex La) 600 mg PO BID [facility] Last Admin: 10/28/17 17:52 Dose: 600 mg Levalbuterol HCl (Xopenex) 1.25 mg IH [id number] [facility] Last Admin: 10/29/17 07:41 Dose: 1.25 mg Levalbuterol HCl (Xopenex) 1.25 mg IH Q2H PRN PRN Reason: Shortness of Breath Last Admin: 10/26/17 11:54 Dose: 1.25 mg Lisinopril (Zestril) 10 mg PO DAILY [facility] Last Admin: 10/28/17 10:23 Dose: 10 mg Methylprednisolone (Solu-Medrol) 40 mg IVP Q12 [facility] Last Admin: 10/28/17 23:12 Dose: 40 mg Pantoprazole Sodium (Protonix Ec Tab) 40 mg PO 0600 [facility] Last Admin: 10/29/17 06:28 Dose: 40 mg Sertraline HCl (Zoloft) 50 mg PO DAILY [facility] Last Admin: 10/28/17 10:23 Dose: 50 mg Warfarin Sodium (Coumadin) 2 mg PO 1800 [facility] PRN Reason: Protocol Last Admin: 10/28/17 17:52 Dose: 2 mg Results - Vital Signs Recent Vital Signs: Last Vital Signs Temp 98 F 10/28/17 15:08 Pulse 101 H 10/28/17 20:51 Resp 18 10/28/17 15:08 BP 112/82 10/28/17 20:51 Pulse Ox 93 L 10/28/17 15:08 - Labs Result Diagrams: 10/29/17 06:45 10/29/17 06:45 Labs: Laboratory Results - last 24 hr 10/28/17 10:00 PT 23.9 H INR 2.05 APTT 33.9
[2017-10-29] MEDS: guaiFENesin 600 mg ER Tab PO SCH ×2 (10:39→18:12)
[2017-10-29] MEDS: MethylPREDNISolone 40 mg Vial IVP SCH ×2 (10:40→22:00)
[2017-10-29 15:01] LABS: ARTERIAL BLOOD GAS HCO3 33.5 mmol/L (21-28); ARTERIAL BLOOD GAS HEMOGLOBIN 15.2 g/dL (11.7-17.4); ARTERIAL BLOOD GAS O2 CAPACITY 20.6 mL/dl (16-24); ARTERIAL BLOOD GAS O2 CONTENT 19.7 ML/dl (15-23); ARTERIAL BLOOD GAS O2 SAT 95.4 % (95-98); ARTERIAL BLOOD GAS PCO2 46 mm/Hg (35-45); ARTERIAL BLOOD GAS PH 7.47 (7.35-7.45); ARTERIAL BLOOD GAS TCO2 34.9 mmol.L (22-28)
--- NOTE | 2017-10-29 15:52 | CP.PCM.DIS ---
Addendum entered and electronically signed by Malcolm Ramirez DO 10/30/17 09:13: Patient not discharged to TCU due to authorization. Will follow up today. No acute events. Attending aware. Original Note: <Malcolm Ramirez - Last Filed: 10/29/17 16:06> Provider - Provider Date of Admission: 10/24/17 07:23 Attending physician: Ngoc Bruno MD Primary care physician: Andrea Casas MD Consults: Dr. Ricks - Palliative Dr. Mendez - Cardiology Dr. Miller - Nephrology Dr. Reynaga - Pulmonology Time Spent in preparation of Discharge (in minutes): 70 Hospital Course - Lab Results Lab Results: Most Recent Lab Values WBC 13.7 10^3/ul (4.5-11.0) H 10/29/17 06:45 RBC 5.09 10^6/uL (3.5-6.1) 10/29/17 06:45 Hgb 15.4 g/dL (12.0-16.0) 10/29/17 06:45 Hct 43.6 % (36.0-48.0) 10/29/17 06:45 MCV 85.7 fl (80.0-105.0) 10/29/17 06:45 MCH 30.3 pg (25.0-35.0) 10/29/17 06:45 MCHC 35.3 g/dl (31.0-37.0) 10/29/17 06:45 RDW 13.8 % (11.5-14.5) 10/29/17 06:45 Plt Count 406 10^3/uL (120.0-450.0) 10/29/17 06:45 MPV 8.2 fl (7.0-11.0) 10/29/17 06:45 Gran % 88.7 % (50.0-68.0) H 10/29/17 06:45 Lymph % (Auto) 6.1 % (22.0-35.0) L 10/29/17 06:45 [place] % (Auto) 5.2 % (1.0-6.0) 10/29/17 06:45 Eos % (Auto) 0.0 % (1.5-5.0) L 10/29/17 06:45 Baso % (Auto) 0.0 % (0.0-3.0) 10/29/17 06:45 Gran # 12.17 (1.4-6.5) H 10/29/17 06:45 Lymph # (Auto) 0.8 (1.2-3.4) L 10/29/17 06:45 [place] # (Auto) 0.7 (0.1-0.6) H 10/29/17 06:45 Eos # (Auto) 0.0 (0.0-0.7) 10/29/17 06:45 Baso # (Auto) 0.00 K/mm3 (0.0-2.0) 10/29/17 06:45 PT 23.9 SECONDS (9.4-12.5) H 10/28/17 10:00 INR 2.05 10/28/17 10:00 APTT 33.9 Seconds (25.1-36.5) 10/28/17 10:00 pCO2 46 mm/Hg (35-45) H 10/29/17 14:50 pO2 61.0 mm/Hg (80-100) L 10/29/17 14:50 HCO3 33.5 mmol/L (21-28) H 10/29/17 14:50 ABG pH 7.47 (7.35-7.45) H 10/29/17 14:50 ABG Total CO2 34.9 mmol.L (22-28) H 10/29/17 14:50 ABG O2 Saturation 95.4 % (95-98) 10/29/17 14:50 ABG O2 Content 19.7 ML/dl (15-23) 10/29/17 14:50 ABG Base Excess 8.5 mmol/L (-2.0-3.0) H 10/29/17 14:50 ABG Hemoglobin 15.2 g/dL (11.7-17.4) 10/29/17 14:50 ABG Carboxyhemoglobin 2.1 % (0.5-1.5) H 10/29/17 14:50 POC ABG HHb (Measured) 4.5 % (0-5) 10/29/17 14:50 ABG Methemoglobin 1.1 % (0.0-3.0) 10/29/17 14:50 ABG O2 Capacity 20.6 mL/dl (16-24) 10/29/17 14:50 Hgb O2 Saturation 92.3 % (95.0-98.0) L 10/29/17 14:50 FiO2 21.0 % 10/29/17 14:50 Sodium 128 mmol/L (132-148) L 10/29/17 06:45 Potassium 4.6 mmol/L (3.6-5.0) 10/29/17 06:45 Chloride 84 mmol/L (98-107) L 10/29/17 06:45 Carbon Dioxide 34 mmol/L (21-33) H 10/29/17 06:45 Anion Gap 14 (10-20) 10/29/17 06:45 BUN 37 mg/dL (7-21) H 10/29/17 06:45 Creatinine 0.7 mg/dl (0.7-1.2) 10/29/17 06:45 Est GFR ( Amer) > 60 10/29/17 06:45 Est GFR (Non-Af Amer) > 60 10/29/17 06:45 Random Glucose 122 mg/dL (70-110) H 10/29/17 06:45 Hemoglobin A1c 5.9 % (4.2-6.5) 10/25/17 05:45 Serum Osmolality 279 mosm/kg (272-300) 10/29/17 09:16 Calcium 9.1 mg/dL (8.4-10.5) 10/29/17 06:45 Phosphorus 3.7 mg/dL (2.5-4.5) 10/26/17 07:15 Magnesium 1.9 mg/dL (1.7-2.2) 10/26/17 07:15 Total Bilirubin 0.5 mg/dL (0.2-1.3) 10/29/17 06:45 AST 23 U/L (14-36) 10/29/17 06:45 ALT 33 U/L (7-56) 10/29/17 06:45 Alkaline Phosphatase 43 U/L (38-126) 10/29/17 06:45 Troponin I < 0.01 ng/mL 10/24/17 05:20 NT-Pro-B Natriuret Pep 1890 pg/mL (0-450) H 10/25/17 05:45 Total Protein 6.1 g/dL (5.8-8.3) 10/29/17 06:45 Albumin 3.8 g/dL (3.0-4.8) 10/29/17 06:45 Globulin 2.3 gm/dL 10/29/17 06:45 Albumin/Globulin Ratio 1.7 (1.1-1.8) 10/29/17 06:45 Triglycerides 53 mg/dL (35-160) 10/25/17 05:45 Cholesterol 150 mg/dL (130-200) 10/25/17 05:45 LDL Cholesterol Direct 40 mg/dL (0-129) 10/25/17 05:45 HDL Cholesterol 88 mg/dL (29-60) H 10/25/17 05:45 Procalcitonin < 0.05 NG/ML (0.19-0.49) L 10/24/17 08:30 TSH 3rd Generation 0.70 mIU/mL (0.46-4.68) 10/25/17 05:45 Digoxin 0.8 ng/mL (0.8-2.0) 10/24/17 08:30 - Hospital Course Hospital Course: 72 year old female, with a past medical history of atrial fibrillation on coumadin, COPD, diastolic congestive heart failure, pulmonary hamartoma, anxiety , and hypertension, who presented to [facility] [place] Emergency Department on 10/24/17 with progressive shortness of breath and wet cough productive of clear sputum for the past 2-3 weeks. She was admitted for suspected COPD exacerbation. In the Emergency Department, she was given breathing treatments, IV steroids, and Antibiotics, which were continued on the floors. Chest radiograph showed hyperinflation with suspected pulmonary congestion. Cardiology was consulted regarding her congestive heart failure and atrial fibrillation. Their recommendations included digoxin 0.25mg daily and cardizem CD 120mg daily for rate control as well as Coumadin 2mg daily with therapeutic INR 2-2.5. The palliative team saw and evaluated her on 10/25/17 and determined she is full code. On 10/26/17, patient complained of lower extremity tenderness especially to palpation. A doppler study of the lower extremities was performed and ruled out any deep venous thrombosis. During her hospital course, patient consistently had hyponatremia. Her lasix was decreased to 20mg BID and Aldactone was held. Nephrology was consulted and recommended free water restriction to 1500cc over a 24 hour period. On 10/28/17, she complained of rectal burning. Rectal exam did not show any signs of infection or hemorrhage and was monitored during her hospital course. We continued her home medications for hyperlipidemia, hypertension, and anxiety. Patient counseled on smoking cessation. She received GI and DVT prophylaxis. Physical Therapy evaluated her and she will be sent to TCU. Patient is to follow up with her primary medical doctor Dr. Victoria upon discharge. The above is a brief summary. Please refer to medical records for detailed encounter. Discharge Exam - Head Exam Head Exam: ATRAUMATIC, NORMAL INSPECTION, NORMOCEPHALIC - Eye Exam Eye Exam: EOMI Pupil Exam: PERRL - Respiratory Exam Respiratory Exam: Wheezes. absent: Accessory Muscle Use, Respiratory Distress - Cardiovascular Exam Cardiovascular Exam: +S1, +S2. absent: Systolic Murmur - GI/Abdominal Exam GI & Abdominal Exam: Normal Bowel Sounds, Soft. absent: Tenderness - Rectal Exam Rectal Exam: Deferred - Neurological Exam Neurological exam: Alert, Oriented x3 - Psychiatric Exam Psychiatric exam: Normal Affect, Normal Mood Discharge Plan - Follow Up Plan Condition: GOOD Disposition: TRANSF TO SNF Instructions: Chronic Obstructive Pulmonary Disease (COPD), Including Emphysema , Heart Failure, Adult, Heart Healthy Diet, Why Vaccines Are Important for Everyone Additional Instructions: Please follow up with Dr. Victoria upon discharge within 3-5 days. Please follow up with Pulmonology upon discharge within 3-5 days. Take medications as prescribed. Smoking cessation advised and encouraged. For worsening or concerning symptoms please return to the ED. Referrals: Andrea Casas MD [Primary Care Provider] - <Ngoc Bruno - Last Filed: 10/31/17 07:31> Provider - Provider Date of Admission: 10/24/17 07:23 Attending physician: Ngoc Bruno MD Primary care physician: Andrea Casas MD Hospital Course - Lab Results Lab Results: Micro Results 10/30/17 09:37 Sputum Gram Stain - Preliminary Most Recent Lab Values WBC 14.1 10^3/ul (4.5-11.0) H 10/30/17 08:03 RBC 5.20 10^6/uL (3.5-6.1) 10/30/17 08:03 Hgb 15.8 g/dL (12.0-16.0) 10/30/17 08:03 Hct 44.9 % (36.0-48.0) 10/30/17 08:03 MCV 86.3 fl (80.0-105.0) 10/30/17 08:03 MCH 30.4 pg (25.0-35.0) 10/30/17 08:03 MCHC 35.2 g/dl (31.0-37.0) 10/30/17 08:03 RDW 13.9 % (11.5-14.5) 10/30/17 08:03 Plt Count 403 10^3/uL (120.0-450.0) 10/30/17 08:03 MPV 8.5 fl (7.0-11.0) 10/30/17 08:03 Gran % 85.8 % (50.0-68.0) H 10/30/17 08:03 Lymph % (Auto) 7.5 % (22.0-35.0) L 10/30/17 08:03 [place] % (Auto) 6.7 % (1.0-6.0) H 10/30/17 08:03 Eos % (Auto) 0.0 % (1.5-5.0) L 10/30/17 08:03 Baso % (Auto) 0.0 % (0.0-3.0) 10/30/17 08:03 Gran # 12.10 (1.4-6.5) H 10/30/17 08:03 Lymph # (Auto) 1.1 (1.2-3.4) L 10/30/17 08:03 [place] # (Auto) 0.9 (0.1-0.6) H 10/30/17 08:03 Eos # (Auto) 0.0 (0.0-0.7) 10/30/17 08:03 Baso # (Auto) 0.00 K/mm3 (0.0-2.0) 10/30/17 08:03 PT 25.0 SECONDS (9.4-12.5) H 10/30/17 06:45 INR 2.14 10/30/17 06:45 APTT 34.0 Seconds (25.1-36.5) 10/30/17 06:45 pCO2 46 mm/Hg (35-45) H 10/29/17 14:50 pO2 61.0 mm/Hg (80-100) L 10/29/17 14:50 HCO3 33.5 mmol/L (21-28) H 10/29/17 14:50 ABG pH 7.47 (7.35-7.45) H 10/29/17 14:50 ABG Total CO2 34.9 mmol.L (22-28) H 10/29/17 14:50 ABG O2 Saturation 95.4 % (95-98) 10/29/17 14:50 ABG O2 Content 19.7 ML/dl (15-23) 10/29/17 14:50 ABG Base Excess 8.5 mmol/L (-2.0-3.0) H 10/29/17 14:50 ABG Hemoglobin 15.2 g/dL (11.7-17.4) 10/29/17 14:50 ABG Carboxyhemoglobin 2.1 % (0.5-1.5) H 10/29/17 14:50 POC ABG HHb (Measured) 4.5 % (0-5) 10/29/17 14:50 ABG Methemoglobin 1.1 % (0.0-3.0) 10/29/17 14:50 ABG O2 Capacity 20.6 mL/dl (16-24) 10/29/17 14:50 Hgb O2 Saturation 92.3 % (95.0-98.0) L 10/29/17 14:50 FiO2 21.0 % 10/29/17 14:50 Sodium 129 mmol/L (132-148) L 10/30/17 08:03 Potassium 4.7 mmol/L (3.6-5.0) 10/30/17 08:03 Chloride 85 mmol/L (98-107) L 10/30/17 08:03 Carbon Dioxide 34 mmol/L (21-33) H 10/30/17 08:03 Anion Gap 15 (10-20) 10/30/17 08:03 BUN 35 mg/dL (7-21) H 10/30/17 08:03 Creatinine 0.7 mg/dl (0.7-1.2) 10/30/17 08:03 Est GFR ( Amer) > 60 10/30/17 08:03 Est GFR (Non-Af Amer) > 60 10/30/17 08:03 Random Glucose 115 mg/dL (70-110) H 10/30/17 08:03 Hemoglobin A1c 5.9 % (4.2-6.5) 10/25/17 05:45 Serum Osmolality 279 mosm/kg (272-300) 10/29/17 09:16 Calcium 9.2 mg/dL (8.4-10.5) 10/30/17 08:03 Phosphorus 4.5 mg/dL (2.5-4.5) 10/30/17 08:03 Magnesium 2.3 mg/dL (1.7-2.2) H 10/30/17 08:03 Total Bilirubin 0.6 mg/dL (0.2-1.3) 10/30/17 08:03 AST 41 U/L (14-36) H D 10/30/17 08:03 ALT 45 U/L (7-56) 10/30/17 08:03 Alkaline Phosphatase 43 U/L (38-126) 10/30/17 08:03 Troponin I < 0.01 ng/mL 10/24/17 05:20 NT-Pro-B Natriuret Pep 1890 pg/mL (0-450) H 10/25/17 05:45 Total Protein 6.2 g/dL (5.8-8.3) 10/30/17 08:03 Albumin 3.9 g/dL (3.0-4.8) 10/30/17 08:03 Globulin 2.3 gm/dL 10/30/17 08:03 Albumin/Globulin Ratio 1.7 (1.1-1.8) 10/30/17 08:03 Triglycerides 53 mg/dL (35-160) 10/25/17 05:45 Cholesterol 150 mg/dL (130-200) 10/25/17 05:45 LDL Cholesterol Direct 40 mg/dL (0-129) 10/25/17 05:45 HDL Cholesterol 88 mg/dL (29-60) H 10/25/17 05:45 Procalcitonin < 0.05 NG/ML (0.19-0.49) L 10/24/17 08:30 TSH 3rd Generation 0.70 mIU/mL (0.46-4.68) 10/25/17 05:45 Urine Osmolality 668 mosm/kg (300-1000) 10/29/17 19:10 Ur Random Sodium 23 meq/L 10/29/17 19:10 Digoxin 0.8 ng/mL (0.8-2.0) 10/24/17 08:30 Attending/Attestation - Attestation I have personally seen and examined this patient.: Yes I have fully participated in the care of the patient.: Yes I have reviewed all pertinent clinical information, including history, physical exam and plan: Yes Notes (Text): 10/30/17 16:56 Attending note; Patient seen and examined with resident. Patient is a 72-year-old female with past medical history significant for nonobstructive coronary artery disease, cardiomyopathy, atrial fibrillation maintained on Coumadin, COPD, diastolic congestive heart failure, hypertension, and anxiety that presented to the emergency room with progressive shortness of breath and productive cough. 1. Acute COPD exacerbation. Improving. Currently off oxygen . Shortness of breath is improving . Continue nebulizer treatments. Continue budesonide. Taper IV Solu-Medrol. Continue Levaquin. 2. Acute on chronic diastolic CHF exacerbation. MUGA scan 09/17/2017 showed a preserved EF of 56%. Cardiology evaluation appreciated. Continue lisinopril. 3. Atrial fibrillation. Continue digoxin and Cardizem. Continue Coumadin. INR is therapeutic. 4. Nonobstructive coronary artery disease. Cardiomyopathy. No acute issues. Continue home lisinopril, Coumadin, and Lipitor. 5. Hypertension. Continue home Cardizem and lisinopril. Continue Lasix 6. Hyponatremia. Stable. Maybe secondary to diuretics. Spironolactone held for now. Change lasix to 20mg PO daily. Continue to monitor. 7. Anxiety. Continue home Zoloft and Xanax. Patient has multiple generalized complaints. Might need psychiatric evaluation. 8. Tobacco abuse. Patient counseled at length on cessation. 9. Bilateral leg pain. Bilateral lower extremity venous Dopplers negative for DVT. Physical therapy evaluation appreciated. Possible transfer to TCU once insurance approval is obtained. DVT GI prophylaxis. Upon discharge the patient will follow-up with PMD .
[2017-10-29] MEDS: Digoxin 250 mcg (0.25 mg) Tab PO SCH (16:03)
--- NOTE | 2017-10-29 18:02 | RAD ---
Date of service: 10/29/2017 HISTORY: F/U pneumonia VS CHF and compare COMPARISON: Comparison chest 10/25/2017 TECHNIQUE: Chest PA and lateral FINDINGS: LUNGS: No active pulmonary disease. PLEURA: No significant pleural effusion identified. No pneumothorax apparent. CARDIOVASCULAR: Normal. OSSEOUS STRUCTURES: Mild multilevel degenerative spondylosis of the thoracic spine. VISUALIZED UPPER ABDOMEN: Normal. OTHER FINDINGS: None. IMPRESSION: No active disease.
[2017-10-29 19:54] LABS: OSMOLALITY,URINE 668 mosm/kg (300-1000)
[2017-10-29] MEDS: diltiaZEM 120 mg/24 Hours CD Cap PO SCH (21:15)
[2017-10-29 22:11] VITALS: RESP 20
[2017-10-30] MEDS: Levalbuterol 1.25 MG/3 ML Inhal Soln UD IH SCH ×3 (02:45→14:34)
[2017-10-30] MEDS: Pantoprazole 40 mg EC Tab PO SCH (06:56)
--- NOTE | 2017-10-30 07:09 | CP.PCM.PN ---
Subjective - Date & Time of Evaluation Date of Evaluation: 10/30/17 Time of Evaluation: 06:20 - Subjective Subjective: Sleeping but easily awaken,no distress Reason for consultation and follow up:Cardiac evaluation for shortness of breath , history of diastolic Congestive Heart Failure, hypertension, atrial fibrillation on coumadin Seen and examined by me and Dr. Mendez Objective - Vital Signs/Intake and Output Vital Signs (last 24 hours): Temp Pulse Resp BP Pulse Ox 98.7 F 89 20 134/92 H 99 10/29/17 22:11 10/29/17 22:11 10/29/17 22:11 10/29/17 22:11 10/29/17 22:11 - Medications Medications: Current Medications Acetaminophen (Tylenol 325mg Tab) 650 mg PO Q6H PRN PRN Reason: Headache Last Admin: 10/30/17 00:19 Dose: 650 mg Alprazolam (Xanax) 1 mg PO TID PRN; Protocol PRN Reason: Anxiety Last Admin: 10/29/17 19:41 Dose: 1 mg Atorvastatin Calcium (Lipitor) 10 mg PO DIN [facility] Last Admin: 10/29/17 18:11 Dose: 10 mg Budesonide (Pulmicort Respules) 0.25 mg IH [id number] [facility] Last Admin: 10/29/17 18:59 Dose: 0.25 mg Digoxin (Lanoxin) 0.25 mg PO 1400 [facility] Last Admin: 10/29/17 16:03 Dose: 0.25 mg Diltiazem HCl (Cardizem Cd) 120 mg PO 2000 [facility] Last Admin: 10/29/17 21:15 Dose: 120 mg Fluticasone Propionate (Flonase) 1 actuation NS DAILY [facility] Furosemide (Lasix) 20 mg PO DAILY [facility] Last Admin: 10/29/17 10:41 Dose: 20 mg Guaifenesin (Mucinex La) 600 mg PO BID [facility] Last Admin: 10/29/17 18:12 Dose: 600 mg Levalbuterol HCl (Xopenex) 1.25 mg IH [id number] [facility] Last Admin: 10/30/17 02:45 Dose: Not Given Levalbuterol HCl (Xopenex) 1.25 mg IH Q2H PRN PRN Reason: Shortness of Breath Last Admin: 10/26/17 11:54 Dose: 1.25 mg Lisinopril (Zestril) 10 mg PO DAILY [facility] Last Admin: 10/29/17 10:40 Dose: 10 mg Methylprednisolone (Solu-Medrol) 40 mg IVP DAILY [facility] Pantoprazole Sodium (Protonix Ec Tab) 40 mg PO 0600 [facility] Last Admin: 10/30/17 06:56 Dose: 40 mg Sertraline HCl (Zoloft) 50 mg PO DAILY [facility] Last Admin: 10/29/17 10:40 Dose: 50 mg Sodium Chloride ([place] Nasal [place]) 1 ml NS BID PRN PRN Reason: Sinus symptoms Warfarin Sodium (Coumadin) 2 mg PO 1800 [facility] PRN Reason: Protocol Last Admin: 10/29/17 18:13 Dose: 2 mg - Labs Labs: 10/29/17 06:45 10/29/17 06:45 PT 23.9 SECONDS (9.4-12.5) H 10/28/17 10:00 INR 2.05 10/28/17 10:00 APTT 33.9 Seconds (25.1-36.5) 10/28/17 10:00 - Constitutional Appears: No Acute Distress - Eye Exam Eye Exam: Normal appearance - ENT Exam ENT Exam: Mucous Membranes Moist - Respiratory Exam Respiratory Exam: Decreased Breath Sounds, NORMAL BREATHING PATTERN - Cardiovascular Exam Cardiovascular Exam: +S1, +S2 - GI/Abdominal Exam GI & Abdominal Exam: Soft, Normal Bowel Sounds - Neurological Exam Neurological Exam: Alert, Awake, Oriented x3 - Psychiatric Exam Psychiatric exam: Normal Affect - Skin Skin Exam: Dry, Warm Assessment and Plan - Assessment and Plan (Free Text) Assessment: A 72 year old female who came in to the ER due to shortness of breath and productive cough. She was just recently discharged 09/20/17 from [facility] [place] with similar symptoms.History of diastolic Congestive Heart Failure, hypertension, atrial fibrillation on coumadin.robotic assisted Left VATS with wedge resection and lymph node biopsy 06/2015, polypectomy,Smokes 3-4 cigs a day, Recent echo 05/30 LVEF 55%, moderate valvular aortic stenosis,moderate TR,mild MR. Acute on chronic exacerbation of COPD.acute on chronic exacerbation of congestive heart failure. Negative for DVT Plan: Episode of shortness of breath yesterday Chest X ray normal Continue nebulizer treatments Stable cardiac status On Lipitor 10 mg daily,Digoxin 0.25 mg daily, Cardizem CD 120 mg daily Lisinopril 10 mg daily,Solu medrol 40 mg every 8 hours,Lasix 40 mg BID Coumadin at 2 mg daily, INR therapeutic Continue current treatment Continue current medications Discharge planning Will follow up Plan and treatment discussed with Dr. Mendez
[2017-10-30 07:39] LABS: INR 2.14
[2017-10-30 08:20] LABS: GRAN # 12.1 (1.4-6.5); GRAN % 85.8 % (50.0-68.0); HEMOGLOBIN 15.8 g/dL (12.0-16.0); LYMPH # 1.1 (1.2-3.4); LYMPH % 7.5 % (22.0-35.0); MEAN CELL VOLUME 86.3 fl (80.0-105.0); MEAN CORPUSCULAR HEMOGLOBIN 30.4 pg (25.0-35.0); MEAN CORPUSCULAR HGB CONC 35.2 g/dl (31.0-37.0); MEAN PLATELET VOLUME 8.5 fl (7.0-11.0); MONO # 0.9 (0.1-0.6); MONO % 6.7 % (1.0-6.0); RBC 5.2 10^6/uL (3.5-6.1); RED CELL DISTRIBUTION WIDTH 13.9 % (11.5-14.5); WHITE BLOOD COUNT 14.1 10^3/ul (4.5-11.0)
[2017-10-30] MEDS: Budesonide 0.25 mg/2 ml Inhal Susp UD IH SCH (08:44)
[2017-10-30 09:01] LABS: ALB/GLOB RATIO 1.7 (1.1-1.8); ALBUMIN 3.9 g/dL (3.0-4.8); ALT/SGPT 45 U/L (7-56); AST/SGOT 41 U/L (14-36); BLOOD UREA NITROGEN 35 mg/dL (7-21); CALCIUM 9.2 mg/dL (8.4-10.5); GFR AFRICAN-AMERICAN > 60; GFR NON-AFRICAN AMERICAN > 60
[2017-10-30] MEDS: guaiFENesin 600 mg ER Tab PO SCH (09:19)
[2017-10-30 09:20] VITALS: BP 145/84; PULSE 88; TEMP 97.9; O2SAT 96
[2017-10-30] MEDS ORDERED: Fluticasone Nasal 50 mcg/Spray NS SCH (10:00)
[2017-10-30] MEDS ORDERED: MethylPREDNISolone 40 mg Vial IVP SCH (10:00)
--- NOTE | 2017-10-30 10:24 | CP.PCM.CON ---
History of Present Illness - History of Present Illness History of Present Illness: PULMONARY CONSULT NOTE HPI Patient is 72yo female with PMHx of Afib on Coumadin, COPD, on home o2 (non compliant), CHF, Anxiety, HTN, presented to the hospital on 10/24, for progressively worse SOB and productive cough which has improved. Pt was started on IV steroids, Abx, and Lasix, and reports some improvement in SOB. Pt is an active smoker smokes 1.5pks per day, for 58years. Denies fever, chills, chest pain, N/V/D, abd pain, palpitations, weight loss. No other constitutional symptoms. Pt has history of poor compliance, non compliant with home O2, does not follow up with pulmonary, cardiology. Pt reports she is on Advair at home, and Nebulizer q6hr. Labs, imaging, chart reviewed. PMH: Atrial fibrillation on coumadin, COPD, Diastolic Congestive Heart Failure, Anxiety, HTN PSH: Left VATS with wedge resection and lymph node biopsy 06/2015, polypectomy Social History: Smokes 1.5pk per day, denies etoh, drug use - Lives with granddaughter and daughter FMH: Non-contributory ALL: Azithromycin Meds:Coumadin 3mg, Diltiazem 120mg, Coumadin 5mg, Aldactone 25mg, Zoloft 50mg, Lisinopril 10mg, Lasix 40mg,, Digoxin 0.25mg, Lipitor 10mg, Brovana 15mcg Q12H Review of Systems - Review of Systems Review of Systems: as per HPI Past Patient History - Infectious Disease Hx of Infectious Diseases: None - Past Medical History & Family History Past Medical History?: Yes - Past Social History Smoking Status: Light Smoker < 10 Cigarettes Daily Alcohol: None Drugs: Denies Home Situation {Lives}: With Family - CARDIAC Hx Cardiac Disorders: Yes Hx Congestive Heart Failure: Yes Hx Hypertension: Yes - PULMONARY Hx Chronic Obstructive Pulmonary Disease (COPD): Yes - NEUROLOGICAL Hx Neurological Disorder: Yes (headaches) Hx Dizziness: Yes - HEENT Hx HEENT Problems: No - RENAL Hx Chronic Kidney Disease: No - ENDOCRINE/METABOLIC Hx Endocrine Disorders: No - HEMATOLOGICAL/ONCOLOGICAL Hx Blood Disorders: No - INTEGUMENTARY Hx Dermatological Problems: No - MUSCULOSKELETAL/RHEUMATOLOGICAL Hx Musculoskeletal Disorders: Yes Hx Arthritis: Yes Hx Falls: Yes (fell couple days ago) Hx Unsteady Gait: Yes Other/Comment: hands "lock up", chronic pain to feet and lower legs 9/10 wakes pt up cramping pain, cramping to hands feet ankles legs - GASTROINTESTINAL Hx Gastrointestinal Disorders: Yes Hx Gastroesophageal Reflux: Yes - GENITOURINARY/GYNECOLOGICAL Hx Genitourinary Disorders: No - PSYCHIATRIC Hx Psychophysiologic Disorder: Yes Hx Anxiety: Yes Hx Depression: Yes Hx Substance Use: No - SURGICAL HISTORY Hx Surgeries: Yes (cardiac cath x1) Hx Cardiac Catheterization: Yes (X1) Hx Coronary Stent: Yes (unknown) Other/Comment: robotic left lower wedge resection and lymphaderectomy 06/2015, polypectomy, left lung nodule removed 2 yrs ago at [facility] ([facility]3] benign - ANESTHESIA Hx Anesthesia: Yes Hx Anesthesia Reactions: No Hx Malignant Hyperthermia: No Meds Allergies/Adverse Reactions: Allergies Allergy/AdvReac Type Severity Reaction Status Date / Time azithromycin [From Zithromax] AdvReac Intermediate RASH Verified 10/22/17 10:22 - Medications Medications: Current Medications Acetaminophen (Tylenol 325mg Tab) 650 mg PO Q6H PRN PRN Reason: Headache Last Admin: 10/30/17 00:19 Dose: 650 mg Alprazolam (Xanax) 1 mg PO TID PRN; Protocol PRN Reason: Anxiety Last Admin: 10/30/17 09:34 Dose: 1 mg Atorvastatin Calcium (Lipitor) 10 mg PO DIN [facility] Last Admin: 10/29/17 18:11 Dose: 10 mg Budesonide (Pulmicort Respules) 0.25 mg IH [id number] [facility] Last Admin: 10/30/17 08:44 Dose: 0.25 mg Digoxin (Lanoxin) 0.25 mg PO 1400 [facility] Last Admin: 10/29/17 16:03 Dose: 0.25 mg Diltiazem HCl (Cardizem Cd) 120 mg PO 2000 [facility] Last Admin: 10/29/17 21:15 Dose: 120 mg Fluticasone Propionate (Flonase) 1 actuation NS DAILY [facility] Last Admin: 10/30/17 09:18 Dose: 1 spr Furosemide (Lasix) 20 mg PO DAILY [facility] Last Admin: 10/30/17 09:18 Dose: Not Given Guaifenesin (Mucinex La) 600 mg PO BID [facility] Last Admin: 10/30/17 09:19 Dose: 600 mg Levalbuterol HCl (Xopenex) 1.25 mg IH [id number] [facility] Last Admin: 10/30/17 08:44 Dose: 1.25 mg Levalbuterol HCl (Xopenex) 1.25 mg IH Q2H PRN PRN Reason: Shortness of Breath Last Admin: 10/26/17 11:54 Dose: 1.25 mg Lisinopril (Zestril) 10 mg PO DAILY [facility] Last Admin: 10/30/17 09:17 Dose: 10 mg Methylprednisolone (Solu-Medrol) 40 mg IVP DAILY [facility] Last Admin: 10/30/17 09:17 Dose: 40 mg Pantoprazole Sodium (Protonix Ec Tab) 40 mg PO 0600 [facility] Last Admin: 10/30/17 06:56 Dose: 40 mg Sertraline HCl (Zoloft) 50 mg PO DAILY [facility] Last Admin: 10/30/17 09:17 Dose: 50 mg Sodium Chloride ([place]al [place]) 1 ml NS BID PRN PRN Reason: Sinus symptoms Warfarin Sodium (Coumadin) 2 mg PO 1800 [facility]A PRN Reason: Protocol Last Admin: 10/29/17 18:13 Dose: 2 mg Physical Exam - Constitutional Appears: Non-toxic, No Acute Distress, Chronically Ill - Head Exam Head Exam: NORMAL INSPECTION - Eye Exam Eye Exam: Normal appearance - ENT Exam ENT Exam: Mucous Membranes Moist - Respiratory Exam Respiratory Exam: Clear to Auscultation Bilateral, NORMAL BREATHING PATTERN - Cardiovascular Exam Cardiovascular Exam: REGULAR RHYTHM, +S1, +S2 - GI/Abdominal Exam GI & Abdominal Exam: Normal Bowel Sounds, Soft - Extremities Exam Extremities exam: Positive for: normal inspection - Neurological Exam Neurological exam: Alert, Oriented x3 Results - Vital Signs Recent Vital Signs: Last Vital Signs Temp 97.9 F 10/30/17 06:00 Pulse 88 10/30/17 09:17 Resp 20 10/30/17 06:00 BP 145/84 10/30/17 09:17 Pulse Ox 96 10/30/17 06:00 - Labs Result Diagrams: 10/30/17 08:03 10/30/17 08:03 Labs: Laboratory Results - last 24 hr 10/29/17 10/29/17 10/30/17 14:50 19:10 06:45 WBC RBC Hgb Hct MCV MCH MCHC RDW Plt Count MPV Gran % Lymph % (Auto) [place] % (Auto) Eos % (Auto) Baso % (Auto) Gran # Lymph # (Auto) [place] # (Auto) Eos # (Auto) Baso # (Auto) PT 25.0 H INR 2.14 APTT 34.0 pCO2 46 H pO2 61.0 L HCO3 33.5 H ABG pH 7.47 H ABG Total CO2 34.9 H ABG O2 Saturation 95.4 ABG O2 Content 19.7 ABG Base Excess 8.5 H ABG Hemoglobin 15.2 ABG Carboxyhemoglobin 2.1 H POC ABG HHb (Measured) 4.5 ABG Methemoglobin 1.1 ABG O2 Capacity 20.6 Hgb O2 Saturation 92.3 L FiO2 21.0 Sodium Potassium Chloride Carbon Dioxide Anion Gap BUN Creatinine Est GFR ( Amer) Est GFR (Non-Af Amer) Random Glucose Calcium Phosphorus Magnesium Total Bilirubin AST ALT Alkaline Phosphatase Total Protein Albumin Globulin Albumin/Globulin Ratio Urine Osmolality 668 Ur Random Sodium 23 10/30/17 10/30/17 08:03 08:03 WBC 14.1 H RBC 5.20 Hgb 15.8 Hct 44.9 MCV 86.3 MCH 30.4 MCHC 35.2 RDW 13.9 Plt Count 403 MPV 8.5 Gran % 85.8 H Lymph % (Auto) 7.5 L [place] % (Auto) 6.7 H Eos % (Auto) 0.0 L Baso % (Auto) 0.0 Gran # 12.10 H Lymph # (Auto) 1.1 L [place] # (Auto) 0.9 H Eos # (Auto) 0.0 Baso # (Auto) 0.00 PT INR APTT pCO2 pO2 HCO3 ABG pH ABG Total CO2 ABG O2 Saturation ABG O2 Content ABG Base Excess ABG Hemoglobin ABG Carboxyhemoglobin POC ABG HHb (Measured) ABG Methemoglobin ABG O2 Capacity Hgb O2 Saturation FiO2 Sodium 129 L Potassium 4.7 Chloride 85 L Carbon Dioxide 34 H Anion Gap 15 BUN 35 H Creatinine 0.7 Est GFR ( Amer) > 60 Est GFR (Non-Af Amer) > 60 Random Glucose 115 H Calcium 9.2 Phosphorus 4.5 Magnesium 2.3 H Total Bilirubin 0.6 AST 41 H D ALT 45 Alkaline Phosphatase 43 Total Protein 6.2 Albumin 3.9 Globulin 2.3 Albumin/Globulin Ratio 1.7 Urine Osmolality Ur Random Sodium - Imaging and Cardiology Chest x-ray Status: Image reviewed by me, Report reviewed by me Assessment & Plan - Assessment and Plan (Free Text) Assessment: 72yo female a/w SOB, COPD exacerbation SOB COPD exacerbation - currently afebrile, HD stable, comfortable on room air, in NAD, was sleeping prior to exam - CXR clear, lungs CTABL on exam, no wheezing, or rales - reports SOB is somewhat improved - patient is non compliant with meds and follow up, actively smoking, although plans to quit - would switch Solumedrol to prednisone 40mg daily x 5 days - Needs LABA/ICS, would start Advair 500/50 BID, add Spiriva daily, and continue Nebulizers Q6hr at home - counseled on smoking cessation - Needs pulmonary follow up upon discharge - CT chest reviewed from 2017
--- NOTE | 2017-10-30 13:03 | CP.PCM.DIS ---
<Malcolm Ramirez - Last Filed: 10/30/17 13:48> Provider - Provider Date of Admission: 10/24/17 07:23 Attending physician: Ngoc Bruno MD Primary care physician: Andrea Casas MD Consults: Palliative - Dr. Ricks Pulmonology - Dr. Reynaga Cardiology - Dr. Mendez Nephrology - Dr. Miller Time Spent in preparation of Discharge (in minutes): 100 Hospital Course - Lab Results Lab Results: Most Recent Lab Values WBC 14.1 10^3/ul (4.5-11.0) H 10/30/17 08:03 RBC 5.20 10^6/uL (3.5-6.1) 10/30/17 08:03 Hgb 15.8 g/dL (12.0-16.0) 10/30/17 08:03 Hct 44.9 % (36.0-48.0) 10/30/17 08:03 MCV 86.3 fl (80.0-105.0) 10/30/17 08:03 MCH 30.4 pg (25.0-35.0) 10/30/17 08:03 MCHC 35.2 g/dl (31.0-37.0) 10/30/17 08:03 RDW 13.9 % (11.5-14.5) 10/30/17 08:03 Plt Count 403 10^3/uL (120.0-450.0) 10/30/17 08:03 MPV 8.5 fl (7.0-11.0) 10/30/17 08:03 Gran % 85.8 % (50.0-68.0) H 10/30/17 08:03 Lymph % (Auto) 7.5 % (22.0-35.0) L 10/30/17 08:03 [place] % (Auto) 6.7 % (1.0-6.0) H 10/30/17 08:03 Eos % (Auto) 0.0 % (1.5-5.0) L 10/30/17 08:03 Baso % (Auto) 0.0 % (0.0-3.0) 10/30/17 08:03 Gran # 12.10 (1.4-6.5) H 10/30/17 08:03 Lymph # (Auto) 1.1 (1.2-3.4) L 10/30/17 08:03 [place] # (Auto) 0.9 (0.1-0.6) H 10/30/17 08:03 Eos # (Auto) 0.0 (0.0-0.7) 10/30/17 08:03 Baso # (Auto) 0.00 K/mm3 (0.0-2.0) 10/30/17 08:03 PT 25.0 SECONDS (9.4-12.5) H 10/30/17 06:45 INR 2.14 10/30/17 06:45 APTT 34.0 Seconds (25.1-36.5) 10/30/17 06:45 pCO2 46 mm/Hg (35-45) H 10/29/17 14:50 pO2 61.0 mm/Hg (80-100) L 10/29/17 14:50 HCO3 33.5 mmol/L (21-28) H 10/29/17 14:50 ABG pH 7.47 (7.35-7.45) H 10/29/17 14:50 ABG Total CO2 34.9 mmol.L (22-28) H 10/29/17 14:50 ABG O2 Saturation 95.4 % (95-98) 10/29/17 14:50 ABG O2 Content 19.7 ML/dl (15-23) 10/29/17 14:50 ABG Base Excess 8.5 mmol/L (-2.0-3.0) H 10/29/17 14:50 ABG Hemoglobin 15.2 g/dL (11.7-17.4) 10/29/17 14:50 ABG Carboxyhemoglobin 2.1 % (0.5-1.5) H 10/29/17 14:50 POC ABG HHb (Measured) 4.5 % (0-5) 10/29/17 14:50 ABG Methemoglobin 1.1 % (0.0-3.0) 10/29/17 14:50 ABG O2 Capacity 20.6 mL/dl (16-24) 10/29/17 14:50 Hgb O2 Saturation 92.3 % (95.0-98.0) L 10/29/17 14:50 FiO2 21.0 % 10/29/17 14:50 Sodium 129 mmol/L (132-148) L 10/30/17 08:03 Potassium 4.7 mmol/L (3.6-5.0) 10/30/17 08:03 Chloride 85 mmol/L (98-107) L 10/30/17 08:03 Carbon Dioxide 34 mmol/L (21-33) H 10/30/17 08:03 Anion Gap 15 (10-20) 10/30/17 08:03 BUN 35 mg/dL (7-21) H 10/30/17 08:03 Creatinine 0.7 mg/dl (0.7-1.2) 10/30/17 08:03 Est GFR ( Amer) > 60 10/30/17 08:03 Est GFR (Non-Af Amer) > 60 10/30/17 08:03 Random Glucose 115 mg/dL (70-110) H 10/30/17 08:03 Hemoglobin A1c 5.9 % (4.2-6.5) 10/25/17 05:45 Serum Osmolality 279 mosm/kg (272-300) 10/29/17 09:16 Calcium 9.2 mg/dL (8.4-10.5) 10/30/17 08:03 Phosphorus 4.5 mg/dL (2.5-4.5) 10/30/17 08:03 Magnesium 2.3 mg/dL (1.7-2.2) H 10/30/17 08:03 Total Bilirubin 0.6 mg/dL (0.2-1.3) 10/30/17 08:03 AST 41 U/L (14-36) H D 10/30/17 08:03 ALT 45 U/L (7-56) 10/30/17 08:03 Alkaline Phosphatase 43 U/L (38-126) 10/30/17 08:03 Troponin I < 0.01 ng/mL 10/24/17 05:20 NT-Pro-B Natriuret Pep 1890 pg/mL (0-450) H 10/25/17 05:45 Total Protein 6.2 g/dL (5.8-8.3) 10/30/17 08:03 Albumin 3.9 g/dL (3.0-4.8) 10/30/17 08:03 Globulin 2.3 gm/dL 10/30/17 08:03 Albumin/Globulin Ratio 1.7 (1.1-1.8) 10/30/17 08:03 Triglycerides 53 mg/dL (35-160) 10/25/17 05:45 Cholesterol 150 mg/dL (130-200) 10/25/17 05:45 LDL Cholesterol Direct 40 mg/dL (0-129) 10/25/17 05:45 HDL Cholesterol 88 mg/dL (29-60) H 10/25/17 05:45 Procalcitonin < 0.05 NG/ML (0.19-0.49) L 10/24/17 08:30 TSH 3rd Generation 0.70 mIU/mL (0.46-4.68) 10/25/17 05:45 Urine Osmolality 668 mosm/kg (300-1000) 10/29/17 19:10 Ur Random Sodium 23 meq/L 10/29/17 19:10 Digoxin 0.8 ng/mL (0.8-2.0) 10/24/17 08:30 - Hospital Course Hospital Course: 72 year old female, with a past medical history of atrial fibrillation on coumadin, COPD, diastolic congestive heart failure, pulmonary hamartoma, anxiety , and hypertension, who presented to [facility] Emergency Department on 10/24/17 with progressive shortness of breath and wet cough productive of clear sputum for the past 2-3 weeks. She was admitted for suspected COPD exacerbation. In the Emergency Department, she was given breathing treatments, IV steroids, and Antibiotics, which were continued on the floors. Chest radiograph showed hyperinflation with suspected pulmonary congestion. Cardiology was consulted regarding her congestive heart failure and atrial fibrillation. Their recommendations included digoxin 0.25mg daily and cardizem CD 120mg daily for rate control as well as Coumadin 2mg daily with therapeutic INR 2-2.5. The palliative team saw and evaluated her on 10/25/17 and determined she is full code. On 10/26/17, patient complained of lower extremity tenderness especially to palpation. A doppler study of the lower extremities was performed and ruled out any deep venous thrombosis. During her hospital course, patient consistently had hyponatremia. Her lasix was decreased to 20mg BID and Aldactone was held. Nephrology was consulted and recommended free water restriction to 1500cc over a 24 hour period. On 10/28/17, she complained of rectal burning. Rectal exam did not show any signs of infection or hemorrhage and was monitored during her hospital course. Pulmonlogy was consulted for uncontrolled COPD. Their recommendations included the addition of Prednisone, Advair, Spiriva, as well as follow up upon discharge. We continued her home medications for hyperlipidemia, hypertension, and anxiety. Patient counseled on smoking cessation. She received GI and DVT prophylaxis. Physical Therapy evaluated her and she will be sent to TCU. Patient is to follow up with Pulmonology upon discharge. Patient is to follow up with her primary medical doctor Dr. Victoria upon discharge. The above is a brief summary. Please refer to medical records for detailed encounter. - Date & Time of H&P Date of H&P: 10/24/17 Time of H&P: 08:30 Discharge Exam - Head Exam Head Exam: NORMAL INSPECTION - Eye Exam Eye Exam: EOMI, Normal appearance, PERRL - ENT Exam ENT Exam: Mucous Membranes Moist - Respiratory Exam Respiratory Exam: Clear to PA & Lateral, NORMAL BREATHING PATTERN, UNREMARKABLE. absent: Wheezes - Cardiovascular Exam Cardiovascular Exam: +S1, +S2. absent: Systolic Murmur - GI/Abdominal Exam GI & Abdominal Exam: Normal Bowel Sounds, Soft. absent: Tenderness - Rectal Exam Rectal Exam: Deferred - Extremities Exam Extremities exam: normal inspection, tenderness - Neurological Exam Neurological exam: Alert, Oriented x3 - Psychiatric Exam Psychiatric exam: Normal Affect, Normal Mood Discharge Plan - Follow Up Plan Condition: GOOD Disposition: TRANSF TO SNF Instructions: Chronic Obstructive Pulmonary Disease (COPD), Including Emphysema , Heart Failure, Adult, Heart Healthy Diet, Why Vaccines Are Important for Everyone Additional Instructions: Please follow up with Dr. Victoria upon discharge within 3-5 days. Please follow up with Pulmonology upon discharge within 3-5 days. Take medications as prescribed. Smoking cessation advised and encouraged. For worsening or concerning symptoms please return to the ED. Referrals: Andrea Casas MD [Primary Care Provider] - <Ngoc Bruno - Last Filed: 10/31/17 07:36> Provider - Provider Date of Admission: 10/24/17 07:23 Attending physician: Ngoc Bruno MD Primary care physician: Andrea Casas MD Hospital Course - Lab Results Lab Results: Micro Results 10/30/17 09:37 Sputum Gram Stain - Preliminary Most Recent Lab Values WBC 14.1 10^3/ul (4.5-11.0) H 10/30/17 08:03 RBC 5.20 10^6/uL (3.5-6.1) 10/30/17 08:03 Hgb 15.8 g/dL (12.0-16.0) 10/30/17 08:03 Hct 44.9 % (36.0-48.0) 10/30/17 08:03 MCV 86.3 fl (80.0-105.0) 10/30/17 08:03 MCH 30.4 pg (25.0-35.0) 10/30/17 08:03 MCHC 35.2 g/dl (31.0-37.0) 10/30/17 08:03 RDW 13.9 % (11.5-14.5) 10/30/17 08:03 Plt Count 403 10^3/uL (120.0-450.0) 10/30/17 08:03 MPV 8.5 fl (7.0-11.0) 10/30/17 08:03 Gran % 85.8 % (50.0-68.0) H 10/30/17 08:03 Lymph % (Auto) 7.5 % (22.0-35.0) L 10/30/17 08:03 [place] % (Auto) 6.7 % (1.0-6.0) H 10/30/17 08:03 Eos % (Auto) 0.0 % (1.5-5.0) L 10/30/17 08:03 Baso % (Auto) 0.0 % (0.0-3.0) 10/30/17 08:03 Gran # 12.10 (1.4-6.5) H 10/30/17 08:03 Lymph # (Auto) 1.1 (1.2-3.4) L 10/30/17 08:03 [place] # (Auto) 0.9 (0.1-0.6) H 10/30/17 08:03 Eos # (Auto) 0.0 (0.0-0.7) 10/30/17 08:03 Baso # (Auto) 0.00 K/mm3 (0.0-2.0) 10/30/17 08:03 PT 25.0 SECONDS (9.4-12.5) H 10/30/17 06:45 INR 2.14 10/30/17 06:45 APTT 34.0 Seconds (25.1-36.5) 10/30/17 06:45 pCO2 46 mm/Hg (35-45) H 10/29/17 14:50 pO2 61.0 mm/Hg (80-100) L 10/29/17 14:50 HCO3 33.5 mmol/L (21-28) H 10/29/17 14:50 ABG pH 7.47 (7.35-7.45) H 10/29/17 14:50 ABG Total CO2 34.9 mmol.L (22-28) H 10/29/17 14:50 ABG O2 Saturation 95.4 % (95-98) 10/29/17 14:50 ABG O2 Content 19.7 ML/dl (15-23) 10/29/17 14:50 ABG Base Excess 8.5 mmol/L (-2.0-3.0) H 10/29/17 14:50 ABG Hemoglobin 15.2 g/dL (11.7-17.4) 10/29/17 14:50 ABG Carboxyhemoglobin 2.1 % (0.5-1.5) H 10/29/17 14:50 POC ABG HHb (Measured) 4.5 % (0-5) 10/29/17 14:50 ABG Methemoglobin 1.1 % (0.0-3.0) 10/29/17 14:50 ABG O2 Capacity 20.6 mL/dl (16-24) 10/29/17 14:50 Hgb O2 Saturation 92.3 % (95.0-98.0) L 10/29/17 14:50 FiO2 21.0 % 10/29/17 14:50 Sodium 129 mmol/L (132-148) L 10/30/17 08:03 Potassium 4.7 mmol/L (3.6-5.0) 10/30/17 08:03 Chloride 85 mmol/L (98-107) L 10/30/17 08:03 Carbon Dioxide 34 mmol/L (21-33) H 10/30/17 08:03 Anion Gap 15 (10-20) 10/30/17 08:03 BUN 35 mg/dL (7-21) H 10/30/17 08:03 Creatinine 0.7 mg/dl (0.7-1.2) 10/30/17 08:03 Est GFR ( Amer) > 60 10/30/17 08:03 Est GFR (Non-Af Amer) > 60 10/30/17 08:03 Random Glucose 115 mg/dL (70-110) H 10/30/17 08:03 Hemoglobin A1c 5.9 % (4.2-6.5) 10/25/17 05:45 Serum Osmolality 279 mosm/kg (272-300) 10/29/17 09:16 Calcium 9.2 mg/dL (8.4-10.5) 10/30/17 08:03 Phosphorus 4.5 mg/dL (2.5-4.5) 10/30/17 08:03 Magnesium 2.3 mg/dL (1.7-2.2) H 10/30/17 08:03 Total Bilirubin 0.6 mg/dL (0.2-1.3) 10/30/17 08:03 AST 41 U/L (14-36) H D 10/30/17 08:03 ALT 45 U/L (7-56) 10/30/17 08:03 Alkaline Phosphatase 43 U/L (38-126) 10/30/17 08:03 Troponin I < 0.01 ng/mL 10/24/17 05:20 NT-Pro-B Natriuret Pep 1890 pg/mL (0-450) H 10/25/17 05:45 Total Protein 6.2 g/dL (5.8-8.3) 10/30/17 08:03 Albumin 3.9 g/dL (3.0-4.8) 10/30/17 08:03 Globulin 2.3 gm/dL 10/30/17 08:03 Albumin/Globulin Ratio 1.7 (1.1-1.8) 10/30/17 08:03 Triglycerides 53 mg/dL (35-160) 10/25/17 05:45 Cholesterol 150 mg/dL (130-200) 10/25/17 05:45 LDL Cholesterol Direct 40 mg/dL (0-129) 10/25/17 05:45 HDL Cholesterol 88 mg/dL (29-60) H 10/25/17 05:45 Procalcitonin < 0.05 NG/ML (0.19-0.49) L 10/24/17 08:30 TSH 3rd Generation 0.70 mIU/mL (0.46-4.68) 10/25/17 05:45 Urine Osmolality 668 mosm/kg (300-1000) 10/29/17 19:10 Ur Random Sodium 23 meq/L 10/29/17 19:10 Digoxin 0.8 ng/mL (0.8-2.0) 10/24/17 08:30 Attending/Attestation - Attestation I have personally seen and examined this patient.: Yes I have fully participated in the care of the patient.: Yes I have reviewed all pertinent clinical information, including history, physical exam and plan: Yes Notes (Text): 10/31/17 07:33 Attending note; Patient seen and examined with resident. Patient denies any chest pain, shortness of breath. Off oxygen. Patient is a 72-year-old female with past medical history significant for nonobstructive coronary artery disease, cardiomyopathy, atrial fibrillation maintained on Coumadin, COPD, diastolic congestive heart failure, hypertension, and anxiety that presented to the emergency room with progressive shortness of breath and productive cough. 1. Acute COPD exacerbation. Improving. Currently off oxygen . Shortness of breath is improving . Continue nebulizer treatments. Pulmonary evaluation appreciated. Taper IV Solu-Medrol. Continue Levaquin. Can change to by mouth prednisone, Advair and Spiriva . Needs outpatient pulmonary follow-up. 2. Acute on chronic diastolic CHF exacerbation. MUGA scan 09/17/2017 showed a preserved EF of 56%. Cardiology evaluation appreciated. Continue lisinopril. 3. Atrial fibrillation. Continue digoxin and Cardizem. Continue Coumadin. INR is therapeutic. 4. Nonobstructive coronary artery disease. Cardiomyopathy. No acute issues. Continue home lisinopril, Coumadin, and Lipitor. 5. Hypertension. Continue home Cardizem and lisinopril. Continue Lasix 6. Hyponatremia. Stable. Maybe secondary to diuretics. Spironolactone held for now. Change lasix to 20mg PO daily. Continue to monitor. 7. Anxiety. Continue home Zoloft and Xanax. Patient has multiple generalized complaints. We will get psychiatric evaluation. Patient has poor motivation. 8. Tobacco abuse. Patient counseled at length on cessation. 9. Bilateral leg pain. Bilateral lower extremity venous Dopplers negative for DVT. Palliative care evaluation appreciated. Patient is full code. Physical therapy evaluation appreciated. TCU recommended. Transfer to TCU. Upon discharge the patient will follow-up with PMD .
[2017-10-30] MEDS: Digoxin 250 mcg (0.25 mg) Tab PO SCH (13:53)
[2017-10-30 13:54] VITALS: PULSE 76
[2017-10-30] MEDS ORDERED: Fluticasone-Salmeterol 500-50mcg Diskus INH SCH (22:00)
[2017-10-31] MEDS ORDERED: Tiotropium 18 mcg Cap For Inhalation IH SCH (10:00)
== END 2017-10-30 16:22 | DRG 190 ==
LOC: ED 05:16 → ERH 07:23 → 2RNO 11:32 → 2RSO 21:57 → 5RSO 10-25 18:05
PROVIDERS: ADMIT Hospitalist; ATTEND Internal Medicine
DX: J44.1 Chronic obstructive pulmonary disease with (acute) exacerbation (principal); I50.33 Acute on chronic diastolic (congestive) heart failure; E87.1 Hypo-osmolality and hyponatremia; I42.9 Cardiomyopathy, unspecified; I11.0 Hypertensive heart disease with heart failure; I48.2 Chronic atrial fibrillation; I25.10 Atherosclerotic heart disease of native coronary artery without angina pectoris; I08.3 Combined rheumatic disorders of mitral, aortic and tricuspid valves; F17.210 Nicotine dependence, cigarettes, uncomplicated; E78.5 Hyperlipidemia, unspecified; F41.9 Anxiety disorder, unspecified; M79.604 Pain in right leg; M79.605 Pain in left leg; E78.00 Pure hypercholesterolemia, unspecified; K21.9 Gastro-esophageal reflux disease without esophagitis; D72.829 Elevated white blood cell count, unspecified; T38.0X5A Adverse effect of glucocorticoids and synthetic analogues, initial encounter; Z99.81 Dependence on supplemental oxygen; Z91.14 Patient's other noncompliance with medication regimen; Z91.19 Patient's noncompliance with other medical treatment and regimen; Z79.01 Long term (current) use of anticoagulants; Z80.49 Family history of malignant neoplasm of other genital organs; Z80.8 Family history of malignant neoplasm of other organs or systems

== ENCOUNTER 2017-10-30 16:30 | Inpatient (IN) | payer MEDICARE, OTHER ==
[2017-10-30 13:54] VITALS: PULSE 76
[2017-10-30 16:45] VITALS: BMI 24.7
[2017-10-30] MEDS ORDERED: Levalbuterol 1.25 MG/3 ML Inhal Soln UD INH PRN (16:45)
[2017-10-30] MEDS ORDERED: Levalbuterol 1.25 MG/3 ML Inhal Soln UD IH PRN (17:02)
[2017-10-30] MEDS: guaiFENesin 600 mg ER Tab PO SCH (17:56)
[2017-10-30] MEDS ORDERED: diltiaZEM 120 mg/24 Hours CD Cap PO SCH (20:00)
[2017-10-30] MEDS ORDERED: Pneumococcal 23-Valent Vaccine IM ONE (21:49)
[2017-10-31 05:53] VITALS: BP 133/80
[2017-10-31] MEDS ORDERED: Pantoprazole 40 mg EC Tab PO SCH (06:30)
[2017-10-31] MEDS ORDERED: Fluticasone Nasal 50 mcg/Spray NS SCH (10:00)
[2017-10-31] MEDS ORDERED: Tiotropium 18 mcg Cap For Inhalation IH SCH (10:00)
[2017-10-31] MEDS: guaiFENesin 600 mg ER Tab PO SCH (10:22)
[2017-10-31 10:26] VITALS: PULSE 60
[2017-10-31 14:00] VITALS: RESP 16; TEMP 97.4; O2SAT 98
[2017-10-31] MEDS ORDERED: Digoxin 250 mcg (0.25 mg) Tab PO SCH (14:00)
--- NOTE | 2017-10-31 14:15 | CP.PCM.HP ---
<Malcolm Ramirez - Last Filed: 10/31/17 15:48> History of Present Illness - History of Present Illness History of Present Illness: 72 year old female, with a past medical history of atrial fibrillation on coumadin, COPD, diastolic congestive heart failure, anxiety, and hypertension, who presented to [facility]'s Emergency Department on 10/24/17 with progressive shortness of breath and wet cough productive of clear sputum for the past 2-3 weeks. She was admitted for suspected COPD exacerbation. In the Emergency Department, she was given breathing treatments, IV steroids, and Antibiotics, which were continued on the floors. Chest radiograph showed hyperinflation with suspected pulmonary congestion. Cardiology was consulted regarding her congestive heart failure and atrial fibrillation. Their recommendations included digoxin 0.25mg daily and cardizem CD 120mg daily for rate control as well as Coumadin 2mg daily with therapeutic INR 2-2.5. The palliative team saw and evaluated her on 10/25/17 and determined she is full code. On 10/26/17, patient complained of lower extremity tenderness especially to palpation. A doppler study of the lower extremities was performed and ruled out any deep venous thrombosis. During her hospital course, patient consistently had hyponatremia. Her lasix was decreased to 20mg BID and Aldactone was held. Nephrology was consulted and recommended free water restriction to 1500cc over a 24 hour period. On 10/28/17, she complained of rectal burning. Rectal exam did not show any signs of infection or hemorrhage and was monitored during her hospital course. Pulmonology was consulted for uncontrolled COPD. Their recommendations included the addition of Prednisone, Advair, Spiriva to her outpatient treatment as well as follow up upon discharge. We continued her home medications for hyperlipidemia, hypertension, and anxiety. Patient counseled extensively on smoking cessation. She received GI and DVT prophylaxis. Physical Therapy evaluated her and she was to be admitted to TCU for physical rehabilitation secondary to her deconditioning. Patient was seen and evaluated at bedside this morning in the TCU. No acute events overnight. She was working with physical therapy earlier in the day and reports she feels her shortness of breath has improved. Her productive cough persists but it is not as frequent. She is able to sleep through the night. She has not received breathing treatments while in the TCU. Her concern is the length of time it is taking for her body to recuperate and she attributes this to the lack of probiotic usage in the past few months because she was unable to afford it. She requested probiotics this afternoon to help with her recovery. She expressed her desire to go home as soon as possible. She denies any fever, chills, SOB, CP, palpitations, nausea, vomiting, diarrhea, constipation, or urinary symptoms. PMH: Atrial fibrillation on coumadin, COPD, Diastolic Congestive Heart Failure, Anxiety, HTN PSH: Robotic assisted Left VATS with wedge resection and lymph node biopsy 2015, polypectomy Social History: Smokes 3-4 cigs a day, denies alcohol or drug use; received her flu shot this year - Lives with granddaughter and daughter FMH: Non-contributory ALL: Azithromycin Meds:Coumadin 3mg, Diltiazem 120mg, Coumadin 5mg, Aldactone 25mg, Zoloft 50mg, Lisinopril 10mg, Lasix 40mg,, Digoxin 0.25mg, Lipitor 10mg, Brovana 15mcg Q12H PMD: Dr. Casas Cardiology: Dr. Mendez Present on Admission - Present on Admission Any Indicators Present on Admission: No Review of Systems - Constitutional Constitutional: Weakness. absent: Chills, Fever - EENT Eyes: absent: Blurred Vision, Change in Vision Ears: absent: Ear Discharge, Ear Pain, Dizziness Nose/Mouth/Throat: absent: Nasal Congestion, Nasal Discharge - Cardiovascular Cardiovascular: absent: Chest Pain, Dyspnea - Respiratory Respiratory: Cough. absent: Dyspnea - Gastrointestinal Gastrointestinal: absent: Abdominal Pain, Diarrhea, Nausea, Vomiting - Genitourinary Genitourinary: absent: Difficulty Urinating, Dysuria - Musculoskeletal Musculoskeletal: Back Pain. absent: Neck Pain - Integumentary Integumentary: absent: Bleeding Lesions, Changing Lesions - Neurological Neurological: absent: Confusion, Dizziness - Psychiatric Psychiatric: absent: Anxiety, Change in Appetite Past Patient History - Infectious Disease Hx of Infectious Diseases: None - Past Medical History & Family History Past Medical History?: Yes - Past Social History Smoking Status: Light Smoker < 10 Cigarettes Daily - CARDIAC Hx Cardiac Disorders: Yes (A Fib on coumadin) Hx Congestive Heart Failure: Yes Hx Hypertension: Yes - PULMONARY Hx Chronic Obstructive Pulmonary Disease (COPD): Yes - NEUROLOGICAL Hx Neurological Disorder: Yes (headaches) Hx Dizziness: Yes - HEENT Hx HEENT Problems: No - RENAL Hx Chronic Kidney Disease: No - ENDOCRINE/METABOLIC Hx Endocrine Disorders: No - HEMATOLOGICAL/ONCOLOGICAL Hx Blood Disorders: No - INTEGUMENTARY Hx Dermatological Problems: No - MUSCULOSKELETAL/RHEUMATOLOGICAL Hx Falls: Yes (recently) - GASTROINTESTINAL Hx Gastrointestinal Disorders: Yes (reflux) - GENITOURINARY/GYNECOLOGICAL Hx Genitourinary Disorders: No Hx Reproductive Disorders: No - PSYCHIATRIC Hx Psychophysiologic Disorder: Yes Hx Anxiety: Yes Hx Depression: Yes Hx Substance Use: No - SURGICAL HISTORY Hx Surgeries: Yes (cardiac cath x1) Hx Cardiac Catheterization: Yes (X1) Hx Coronary Stent: Yes (unknown) Other/Comment: robotic left lower wedge resection and lymphaderectomy 06/2015, polypectomy, left lung nodule removed 2 yrs ago at [facility] benign - ANESTHESIA Hx Anesthesia: Yes Hx Anesthesia Reactions: No Hx Malignant Hyperthermia: No Meds Home Medications: Home Medication List Medication Instructions Recorded Confirmed Type Fluticasone Nasal [Flonase] 1 actuation NS DAILY #1 spr 10/31/17 Rx Lactobacillus Acidophilus [Bacid 1 cap PO BID 15 Days #30 cap 10/31/17 Rx Acidophilus] Tiotropium [Spiriva] 18 mcg IH DAILY #1 cap 10/31/17 Rx predniSONE [predniSONE Tab] 40 mg PO 0800 4 Days #4 tab 10/31/17 Rx Allergies/Adverse Reactions: Allergies Allergy/AdvReac Type Severity Reaction Status Date / Time azithromycin [From Zithromax] AdvReac Intermediate RASH Verified 10/22/17 10:22 Physical Exam - Constitutional Appears: Well, Non-toxic, No Acute Distress - Head Exam Head Exam: ATRAUMATIC, NORMAL INSPECTION, NORMOCEPHALIC - Eye Exam Eye Exam: EOMI, Normal appearance - ENT Exam ENT Exam: Mucous Membranes Moist, Normal Exam - Neck Exam Neck exam: Negative for: Tenderness, Thyromegaly - Respiratory Exam Respiratory Exam: Wheezes, NORMAL BREATHING PATTERN. absent: Chest Wall Tenderness - Cardiovascular Exam Cardiovascular Exam: +S1, +S2. absent: Systolic Murmur - GI/Abdominal Exam GI & Abdominal Exam: Normal Bowel Sounds, Soft. absent: Tenderness - Rectal Exam Rectal Exam: Deferred - Extremities Exam Extremities exam: Positive for: calf tenderness. Negative for: joint swelling, pedal edema - Neurological Exam Neurological exam: Alert, CN II-XII Intact, Oriented x3 - Psychiatric Exam Psychiatric exam: Normal Affect, Normal Mood - Skin Skin Exam: Dry, Intact, Normal Color, Warm Results - Vital Signs Recent Vital Signs: Last Vital Signs Temp 97.4 F L 10/31/17 10:00 Pulse 60 10/31/17 10:23 Resp 16 10/31/17 10:00 BP 133/80 10/31/17 10:23 Pulse Ox 98 10/31/17 10:00 Assessment & Plan - Assessment and Plan (Free Text) Assessment: 72 y/o F, PMH of Afib on coumadin, COPD, Diastolic CHF, Anxiety, HTN, w/ SOB and productive cough admitted to TCU for weakness and deconditioning. Plan: COPD Exacerbation - CXR: No active disease process - decrease prednisone 40mg PO - continue Spiriva, Xopenex 1.25mg Q2 PRN and Q6 NORA, Flonase - continue Mucinex 600mg BID for cough - follow up with her PMD Dr. Victoria upon discharge Exacerbation of CHF - Diastolic CHF w/ last known EF of 55-60% (05/2017) - continue Lisinopril - decrease lasix to 20mg PO daily as per Dr. Mendez - Cardiology - Dr. Mendez Atrial Fibrillation, Chronic - Continue Coumadin 2mg - Continue digoxin and Diltiazem for rate control - Monitoring INR at therapeutic level of 2-2.5 per cardio - Cardiology - Dr. Mendez Deconditioning - Transferred to TCU - Physical therapy daily - Continue to monitor for improvement Hyperlipidemia - continue statin Anxiety - Continue home Xanax 1mg - Zoloft - Psychiatry consulted Tobacco Abuse - Advised cessation - Nicotine patch offered DVT PPX: Sequential Compression Devices GI PPX: Protonix/Probiotics Diet: Heart Healthy Patient discussed with Dr. Bogdan Ramirez PGY1 <Ngoc Bruno - Last Filed: 11/01/17 14:17> Results - Vital Signs Recent Vital Signs: Last Vital Signs Temp 97.4 F L 10/31/17 10:00 Pulse 60 10/31/17 10:23 Resp 16 10/31/17 10:00 BP 133/80 10/31/17 10:23 Pulse Ox 98 10/31/17 10:00 Attending/Attestation - Attestation I have personally seen and examined this patient.: Yes I have fully participated in the care of the patient.: Yes I have reviewed all pertinent clinical information: Yes Notes (Text): Attending note; Patient seen and examined with resident in TCU. Patient denies any chest pain, shortness of breath. Off oxygen. Patient is a 72-year-old female with past medical history significant for non obstructive coronary artery disease, cardiomyopathy, atrial fibrillation maintained on Coumadin, COPD, diastolic congestive heart failure, hypertension, and anxiety that presented to the emergency room with progressive shortness of breath and productive cough. 1. Acute COPD exacerbation. Improved. Currently off oxygen . Shortness of breath is improving . Continue nebulizer treatments. Pulmonary evaluation appreciated. Treated with IV Solu-Medrol. Continue Levaquin ans prednisone, Advair and Spiriva . Needs outpatient pulmonary follow-up. 2. Acute on chronic diastolic CHF exacerbation. MUGA scan 09/17/2017 showed a preserved EF of 56%. Cardiology evaluation appreciated. Continue lisinopril. 3. Atrial fibrillation. Continue digoxin and Cardizem. Continue Coumadin. INR is therapeutic. 4. Nonobstructive coronary artery disease. Cardiomyopathy. No acute issues. Continue home lisinopril, Coumadin, and Lipitor. 5. Hypertension. Continue home Cardizem and lisinopril. Continue Lasix 6. Anxiety. Continue home Zoloft and Xanax. Patient has multiple generalized complaints. Case discussed with psychiatrist in detail. Patient is clinically stable. 7. Tobacco abuse. Smoking cessation is strongly recommended. 8. Bilateral leg pain. Bilateral lower extremity venous Dopplers negative for DVT. Palliative care evaluation appreciated. Patient is full code. Upon discharge the patient will follow-up with PMD . 11/01/17 14:15
[2017-10-31] MEDS ORDERED: Lactobacillus Acidophilus 500 MU Cap PO SCH (18:00)
--- NOTE | 2017-11-01 04:01 | CON ---
DATE: 10/31/2017 HISTORY OF PRESENT ILLNESS: The patient is 72-year-old female with multiple medical issues. The patient was admitted on the medical site for evaluation of CHF, COPD. The patient is active smoker. Psych consult was called for evaluation of depressive symptoms and low energy. The patient was seen and examined today. The patient presented to be alert and oriented, pleasant. The patient said that after her 2 years ago, she was feeling lost. Patient reported that first year, it was okay; second year, it got bad. The patient reports that even though that she knows that she cannot smoke, she continues smoking. Patient reported that at times she feels depressed, but adamantly denied thoughts of harming herself or others. The patient reports that she is not hearing voices, denies seeing things. The patient denies feeling anxious, but obviously presenting that way. The patient denied previous history of mental illness. The patient denied history of being admitted to the psychiatric inpatient unit. The patient denied suicidal attempts in the past. Strong family history of mental illness, patient's granddaughter suffers from bipolar disorder. VITAL SIGNS: Reviewed, seems to be stable. Temperature 97.4, pulse is 60, blood pressure 133/80, respirations 16, oxygen saturation is 98%. MEDICATIONS: Reviewed. Tylenol 325 mg daily, Xanax 1 mg three times a day p.r.n., Lipitor, Lanoxin, Cardizem, Flonase, Lasix, Mucinex, lisinopril, Protonix, prednisone, Zoloft 50 mg daily prescribed by medical team, nasal spray, Spiriva and Coumadin. LABORATORY DATA: Reviewed. WBC of 14.1 from yesterday. Coagulation reviewed. Blood gas reviewed. Chemistry reviewed. MENTAL STATUS EXAMINATION: The patient presented with good personal hygiene. Good eye contact. Speech was normal rate, tone, quality and quantity. At times, the patient presented with short of breath because of COPD. Mood described as "I have low energy." Affect was constricted. Thought process was coherent and goal directed. Thought content, the patient denied visual, auditory or tactile hallucinations. Denied paranoid ideation. The patient denied thoughts of harming herself or others. The patient does not present to be psychotic, but depressed. The patient has good impulse control. IMPRESSION: Rule out anxiety due to general medical condition, rule out mood disorder due to general medical condition. PLAN: This quality analyst/technical writer offered Wellbutrin in order help to with depression as well as smoking cessation, the patient is willing to start that medication. Later on, Dr. Bruno contacted this quality analyst/technical writer. The patient did not want to stay in the hospital and complete the treatment. As per medical staff, the patient would be discharged against medical advice. The patient never verbalized any thoughts of killing herself or others. The patient might benefit from staying in the hospital, but this is patient's choice. As per Dr. Bruno, the patient has capacity to sign against medical advice because this quality analyst/technical writer did not evaluate capacity to leave against medical advice. The patient knows contact information for [facility] and this quality analyst/technical writer educated the patient about neighborhood clinic here in [place]. This quality analyst/technical writer will sign off. Should you have any questions, give me a call back. Shaila Mattson MD ERMA
--- NOTE | 2017-11-01 05:55 | CP.PCM.DIS ---
Provider - Provider Date of Admission: 10/30/17 16:30 Attending physician: Ngoc Bruno MD Primary care physician: Andrea Casas MD Consults: Psychiatry - Dr. Wharton Time Spent in preparation of Discharge (in minutes): 100 Hospital Course - Hospital Course Hospital Course: 72 year old female, with a past medical history of atrial fibrillation on coumadin, COPD, diastolic congestive heart failure, anxiety, and hypertension, was admitted to the transitional care unit secondary to deconditioning and weakness. She worked with physical therapy to improve her gait, balance, and physical activity endurance. She felt the lack of probiotics in her daily regimen was part of the reason she was not improving, so we provided her with probiotics. Later that day, patient left against medical advice. She was explained that the risk of leaving include and permanent disability. Patient verbalized understanding and risks involved with leaving against medical advice. This is a brief summary of her stay. For a detailed encounter please refer to medical records. - Date & Time of H&P Date of H&P: 10/31/17 Time of H&P: 14:05 Discharge Exam - Head Exam Head Exam: ATRAUMATIC, NORMAL INSPECTION, NORMOCEPHALIC - Eye Exam Eye Exam: EOMI, Normal appearance - Respiratory Exam Respiratory Exam: Clear to PA & Lateral, Wheezes, NORMAL BREATHING PATTERN. absent: Respiratory Distress - Cardiovascular Exam Cardiovascular Exam: +S1, +S2 - GI/Abdominal Exam GI & Abdominal Exam: Normal Bowel Sounds, Soft. absent: Tenderness - Neurological Exam Neurological exam: Alert, Oriented x3 - Psychiatric Exam Psychiatric exam: Normal Affect, Normal Mood Discharge Plan - Discharge Medications Prescriptions: Fluticasone Nasal [Flonase] 1 actuation NS DAILY #1 spr Lactobacillus Acidophilus [Bacid Acidophilus] 1 cap PO BID 15 Days #30 cap predniSONE [predniSONE Tab] 40 mg PO 0800 4 Days #4 tab Tiotropium [Spiriva] 18 mcg IH DAILY #1 cap - Follow Up Plan Condition: GOOD Disposition: AGAINST MEDICAL ADVICE Instructions: Anxiety, Adult (DC), Exacerbation of COPD, Preventing Falls Additional Instructions: Please follow up with your primary care doctor within 3-5 days. Take medications as prescribed and resume your home medications as directed. For any concerning or worsening symptoms please return to the ED. Referrals: Andrea Casas MD [Primary Care Provider] -
== END 2017-10-31 17:00 | disposition left against medical advice (07) | DRG 945 ==
LOC: TRCU 16:30
PROVIDERS: ADMIT Internal Medicine; ATTEND Internal Medicine
PROC: F07Z9ZZ Gait Training/Functional Ambulation Treatment (ICD-10-PCS; principal; 2017-10-31)
PROC: F08Z4ZZ Home Management Treatment (ICD-10-PCS; 2017-10-31)
DX: R53.1 Weakness (principal); I50.30 Unspecified diastolic (congestive) heart failure; I11.0 Hypertensive heart disease with heart failure; J44.9 Chronic obstructive pulmonary disease, unspecified; I48.91 Unspecified atrial fibrillation; K21.9 Gastro-esophageal reflux disease without esophagitis; F41.9 Anxiety disorder, unspecified; E78.5 Hyperlipidemia, unspecified; F17.200 Nicotine dependence, unspecified, uncomplicated; Z79.01 Long term (current) use of anticoagulants

== ENCOUNTER 2017-12-24 13:45 | Emergency (ER) | payer MEDICARE, OTHER ==
[2017-12-24 13:45] VITALS: PULSE 76
[2017-12-24 13:58] VITALS: O2SAT 95; BMI 23.8
--- NOTE | 2017-12-24 14:19 | ED PDOC ---
Arrival/HPI - General Historian: Patient - History of Present Illness Narrative History of Present Illness (Text): 12/24/17 14:20 72 yo F with PMHx of atrial fibrillation on coumadin, COPD, diastolic congestive heart failure, anxiety, and hypertension, presenting to ED for worsening SOB, productive cough since this AM. Patient took advair and nebulizer treatment at home prior to arrival which helped alleviate symptoms, has not been on ventolin for ~ 1 week. Of note, patient states she fell down stairs at her home this past Sunday, denies LOC or head trauma but endorses some R calf tenderness. Patient denies fevers, chills, headache, dizziness, chest pain, abd ominal pain, nausea, vomiting, diarrhea, back pain, neck pain, urinary/bowel changes, or any other complaint. PMHx: Atrial fibrillation on coumadin, COPD, Diastolic Congestive Heart Failure, Anxiety, HTN PSHx: Robotic assisted Left VATS with wedge resection and lymph node biopsy 06/2015, polypectomy Allergies: Azithromycin Home Medications: as per chart FMHx: unknown Social Hx: Smokes 3-4 cigs a day, denies alcohol or drug use; Lives with granddaughter and daughter PMD: Dr. Casas Cardiology: Dr. Mendez <Jose Marshall - Last Filed: 12/24/17 16:13> <Paulino Purdy - Last Filed: 12/24/17 18:22> - General Time Seen by Provider: 12/24/17 13:48 Past Medical History - Provider Review Nursing Documentation Reviewed: Yes - Infectious Disease Hx of Infectious Diseases: None - Cardiac Hx Cardiac Disorders: Yes (A Fib on coumadin) Hx Congestive Heart Failure: Yes Hx Hypertension: Yes - Pulmonary Hx Chronic Obstructive Pulmonary Disease (COPD): Yes - Neurological Hx Neurological Disorder: Yes (headaches) Hx Dizziness: Yes - HEENT Hx HEENT Disorder: No - Renal Hx Renal Disorder: No - Endocrine/Metabolic Hx Endocrine Disorders: No - Hematological/Oncological Hx Blood Disorders: No - Integumentary Hx Dermatological Disorder: No - Musculoskeletal/Rheumatological Hx Falls: Yes (recently) - Gastrointestinal Hx Gastrointestinal Disorders: Yes (reflux) - Genitourinary/Gynecological Hx Genitourinary Disorders: No Hx Reproductive Disorders: No - Psychiatric Hx Psychophysiologic Disorder: Yes Hx Anxiety: Yes Hx Depression: Yes Hx Substance Use: No - Surgical History Hx Cardiac Catheterization: Yes (X1) Hx Coronary Stent: Yes (unknown) Other/Comment: robotic left lower wedge resection and lymphaderectomy 06/2015, polypectomy, left lung nodule removed 2 yrs ago at [facility] benign - Anesthesia Hx Anesthesia: Yes Hx Anesthesia Reactions: No Hx Malignant Hyperthermia: No - Suicidal Assessment Feels Threatened In Home Enviroment: No <Jose Marshall - Last Filed: 12/24/17 16:13> Family/Social History - Physician Review Nursing Documentation Reviewed: Yes Family/Social History: Unknown Family HX Smoking Status: Light Smoker < 10 Cigarettes Daily Hx Alcohol Use: No Hx Substance Use: No <Jose Marshall - Last Filed: 12/24/17 16:13> Allergies/Home Meds <Jose Marshall - Last Filed: 12/24/17 16:13> <Paulino Purdy - Last Filed: 12/24/17 18:22> Allergies/Adverse Reactions: Allergies azithromycin [From Zithromax] Adverse Reaction (Intermediate, Verified 10/22/17 10:22) RASH "JUST DOES NOT WORK" Home Medications: Home Meds Medication Instructions Recorded Confirmed RX: ALPRAZolam [Xanax] 1 mg PO TID 10/24/17 10/30/17 RX: Fluticasone/Salmeterol [Advair 1 puff IH Q12 10/24/17 10/30/17 250-50 Diskus] RX: Gabapentin [Neurontin] 400 mg PO BID 10/24/17 10/30/17 RX: Levalbuterol HCl [Xopenex] 0 inh INH Q6H PRN 10/24/17 10/30/17 RX: Lisinopril [Zestril] 2.5 mg PO DAILY 10/24/17 10/30/17 RX: Metoprolol Tartrate [Lopressor] 25 mg PO BID 10/24/17 10/30/17 RX: Pantoprazole Sodium [Protonix] 40 mg PO ACB 10/24/17 10/30/17 RX: Sertraline [Zoloft] 100 mg PO BID 10/24/17 10/30/17 Review of Systems - Review of Systems Constitutional: Normal Eyes: Normal ENT: Normal Respiratory: SOB, Cough Cardiovascular: Edema, Calf Pain. absent: Chest Pain, Palpitations Gastrointestinal: Normal. absent: Abdominal Pain, Constipation, Diarrhea, Nausea, Vomiting Genitourinary Female: Normal Musculoskeletal: Neck Pain (chronic). absent: Joint Swelling Skin: Skin Lesions Neurological: Normal Endocrine: Normal Hemo/Lymphatic: Easy Bruising Psychiatric: Normal <Jose Marshall - Last Filed: 12/24/17 16:13> Physical Exam Vital Signs Reviewed: Yes Vital Signs Temp Pulse Resp BP Pulse Ox 12/24/17 13:55 98.6 F 106 H 18 120/55 L 95 Temperature: Afebrile Blood Pressure: Hypotensive Pulse: Tachycardic Respiratory Rate: Normal Appearance: Positive for: Non-Toxic Pain Distress: Mild Mental Status: Positive for: Alert and Oriented X 3 - Systems Exam Head: Present: Atraumatic, Normocephalic Pupils: Present: PERRL Extroacular Muscles: Present: EOMI Conjunctiva: Present: Normal Ears: Present: Normal Mouth: Present: Moist Mucous Membranes Pharnyx: Present: Normal Neck: Present: Normal Range of Motion Respiratory/Chest: Present: Wheezes. No: Good Air Exchange, Respiratory Distress, Accessory Muscle Use Cardiovascular: Present: Normal S1, S2, Tachycardic Abdomen: Present: Normal Bowel Sounds. No: Tenderness, Distention, Rebound, Guarding, Mass/Organomegaly Upper Extremity: Present: Normal Inspection, Normal ROM, NORMAL PULSES, Capillary Refill < 2s Lower Extremity: Present: NORMAL PULSES, Normal ROM, Tenderness (mild TTP R calf ), Swelling, Capillary Refill < 2 s. No: Normal Inspection (ecchymosis b/l LE) Neurological: Present: CN II-XII Intact, Speech Normal Skin: Present: Warm, Dry, Normal Color Psychiatric: Present: Alert, Oriented x 3, Normal Insight, Normal Concentration <Jose Marshall - Last Filed: 12/24/17 16:13> Vital Signs Temp Pulse Resp BP Pulse Ox 12/24/17 16:16 98 F 86 20 145/78 95 12/24/17 15:38 89 18 118/59 L 95 12/24/17 13:55 98.6 F 106 H 18 120/55 L 95 <Paulino Purdy - Last Filed: 12/24/17 18:22> Medical Decision Making ED Course and Treatment: 12/24/17 14:37 Impression: 72 yo F with PMHx of COPD, a fib on coumadin, diastolic congestive heart failure, anxiety, and hypertension, presenting to ED for worsening SOB since this AM. Plan: --CBC, CMP --BNP --Digoxin level --cardiac ISO --PT/PTT --VBG shock panel --duoneb x1 --methylprednisolone 124 mg IVP x1 --CXR --EKG --UA --monitor and disposition - RAD Interpretation Radiology Orders: 12/24/17 14:11 CHEST PORTABLE [RAD] Stat - EKG Interpretation EKG Interpretation (Text): 12/24/17 14:36 A fib with RVR with premature ventricular or aberrantly conducted complexes HR [address] and T wave abnormality, consider inferior ischemia or digitalis effect Interpreted by ED Physician: Yes Type: 12 lead EKG - Medication Orders Current Medication Orders: Albuterol/Ipratropium (Duoneb 3 Mg/0.5 Mg (3 Ml) Ud) 3 ml IH Q15M NORA Stop: 12/24/17 14:46 Methylprednisolone (Solu-Medrol) 125 mg IVP STAT STA Stop: 12/24/17 14:12 <Jose Marshall - Last Filed: 12/24/17 16:13> ED Course and Treatment: 12/24/17 18:21 pt seen with karla. codp chf exaceratbiotn. after nebs steriods and lasix, pt persistenly wheezing. pt was admitted but shortly after signed out AMA. explained HIGH risk of at extensive time bedside. long standing h/o of non complaince and AMA. understands risks. - Lab Interpretations Lab Results: 12/24/17 14:45 12/24/17 14:45 Lab Results 12/24/17 14:45: Digoxin 1.3 12/24/17 14:45: Sodium 133, Chloride 92 L, Potassium 3.9, Carbon Dioxide 31, Anion Gap 14, BUN 8, Creatinine 0.6 L, Est GFR ( Amer) > 60, Est GFR (Non-Af Amer) > 60, Random Glucose 125 H, Calcium 9.6, Magnesium 1.4 L, Total Bilirubin 0.5, AST 29, ALT 27, Alkaline Phosphatase 59, Lactate Dehydrogenase 533, Total Creatine Kinase 100, Troponin I < 0.01, NT-Pro-B Natriuret Pep 2580 H , Total Protein 7.0, Albumin 4.4, Globulin 2.5, Albumin/Globulin Ratio 1.8 12/24/17 14:45: Urine Color Yellow, Urine Appearance Clear, Urine pH 6.0, Ur Specific [place] 1.010, Urine Protein Negative, Urine Glucose (UA) Negative, Urine Ketones Negative, Urine Blood Negative, Urine Nitrate Negative, Urine Bilirubin Negative, Urine Urobilinogen 0.2, Ur Leukocyte Esterase Trace H, Urine RBC 0 - 2, Urine WBC 2 - 5, Ur Epithelial Cells 3 - 4, Urine Bacteria Few 12/24/17 14:45: PT 29.9 H, INR 2.57, APTT 47.6 H 12/24/17 14:45: WBC 10.5 D, RBC 4.56, Hgb 13.6 D, Hct 40.3, MCV 88.4, MCH 29.8, MCHC 33.7, RDW 13.7, Plt Count 261, MPV 8.4, Gran % 87.0 H, Lymph % (Auto) 6.7 L, [place] % (Auto) 5.6, Eos % (Auto) 0.4 L, Baso % (Auto) 0.3, Gran # 9.10 H, Lymph # (Auto) 0.7 L, [place] # (Auto) 0.6, Eos # (Auto) 0.0, Baso # (Auto) 0.03 12/24/17 14:45: pO2 50, VBG pH 7.40, VBG pCO2 55.0, VBG HCO3 34.1 H, VBG Total CO2 35.8 H, VBG O2 Sat (Calc) 88.2 H, VBG Base Excess 7.5 H, VBG Potassium 3.8, Sodium 131.0 L, Chloride 94.0 L, Glucose 129 H, Lactate 1.1, FiO2 21.0, Venous Blood Potassium 3.8 - RAD Interpretation Radiology Orders: 12/24/17 14:11 CHEST PORTABLE [RAD] Stat - Medication Orders Current Medication Orders: Discontinued Medications Albuterol/Ipratropium (Duoneb 3 Mg/0.5 Mg (3 Ml) Ud) 3 ml IH Q15M NORA Stop: 12/24/17 14:46 Last Admin: 12/24/17 14:56 Dose: 3 ml Furosemide (Lasix) 40 mg IVP STAT STA Stop: 12/24/17 15:31 Methylprednisolone (Solu-Medrol) 125 mg IVP STAT STA Stop: 12/24/17 14:12 Last Admin: 12/24/17 14:51 Dose: 125 mg IVP Administration Document 12/24/17 14:51 [facility] (Rec: 12/24/17 14:51 [facility]-[id number]) Charges for Administration # of IVP Administrations 1 <Paulino Purdy - Last Filed: 12/24/17 18:22> Disposition/Present on Arrival - Present on Arrival Any Indicators Present on Arrival: No History of DVT/PE: No History of Uncontrolled Diabetes: No Urinary Catheter: No History Surgical Site Infection Following: None - Disposition Have Diagnosis and Disposition been Completed?: Yes Disposition Time: 16:13 <Jose Marshall - Last Filed: 12/24/17 16:13> <Paulino Purdy - Last Filed: 12/24/17 18:22> - Disposition Diagnosis: COPD exacerbation, CHF (congestive heart failure), Left against medical advice Disposition: AGAINST MEDICAL ADVICE Condition: UNKNOWN Discharge Instructions (ExitCare): Chronic Obstructive Pulmonary Disease (COPD), Including Emphysema, Leaving Against Medical Advice, Heart Failure (ED) Additional Instructions: return to er with worsneing symptoms or concerns. you are leaving against medical advice Prescriptions: Albuterol 0.083% [Albuterol 0.083% Inhal Dede (2.5 mg/3 ml) UD] 2.5 mg IH Q4 PRN #20 neb PRN Reason: Wheezing RX: Prednisone 50 mg PO DAILY #5 tablet Referrals: Andrea Casas MD [Primary Care Provider] - Follow up with primary Forms: [employer] ([place])
--- NOTE | 2017-12-24 14:43 | RAD ---
Date of service: 12/24/2017 HISTORY: sob COMPARISON: 10/29/2017 FINDINGS: LUNGS: No active pulmonary disease. PLEURA: No significant pleural effusion identified, no pneumothorax apparent. CARDIOVASCULAR: Normal. OSSEOUS STRUCTURES: No significant abnormalities. VISUALIZED UPPER ABDOMEN: Normal. OTHER FINDINGS: None. IMPRESSION: No active disease.
[2017-12-24] MEDS: Albuterol-Ipratrop 3 mg / 0.5 (3 ml) UD IH SCH ×3 (14:51→14:56)
[2017-12-24 14:54] LABS: BASO # 0.03 K/mm3 (0.0-2.0); BASO % 0.3 % (0.0-3.0); EOS % 0.4 % (1.5-5.0); GRAN # 9.1 (1.4-6.5); HEMOGLOBIN 13.6 g/dL (12.0-16.0); LYMPH # 0.7 (1.2-3.4); LYMPH % 6.7 % (22.0-35.0); MEAN CELL VOLUME 88.4 fl (80.0-105.0); MEAN CORPUSCULAR HEMOGLOBIN 29.8 pg (25.0-35.0); MEAN CORPUSCULAR HGB CONC 33.7 g/dl (31.0-37.0); MEAN PLATELET VOLUME 8.4 fl (7.0-11.0); MONO # 0.6 (0.1-0.6); MONO % 5.6 % (1.0-6.0); RBC 4.56 10^6/uL (3.5-6.1); RED CELL DISTRIBUTION WIDTH 13.7 % (11.5-14.5); URINE BILIRUBIN NEGATIVE (NEGATIVE); URINE BLOOD NEGATIVE (NEGATIVE); URINE GLUCOSE (UA) NEGATIVE (NEGATIVE); URINE LEUKOCYTE ESTERASE TRACE Leu/uL (NEGATIVE); URINE PROTEIN NEGATIVE mg/dL (<30 mg/dL); URINE UROBILINOGEN 0.2 E.U./dL (<1 E.U./dL); VENOUS BLOOD GAS BASE EXCESS 7.5 mmol/L (0.0-2.0); VENOUS BLOOD GAS PO2 50 mm/Hg (30-55); WHITE BLOOD COUNT 10.5 10^3/ul (4.5-11.0)
[2017-12-24 14:56] LABS: URINE APPEARANCE CLEAR (CLEAR); URINE COLOR YELLOW (YELLOW)
[2017-12-24 14:58] LABS: URINE BACTERIA FEW (NEG); URINE RBC 0 - 2 /hpf (0-2)
[2017-12-24 15:04] LABS: ALB/GLOB RATIO 1.8 (1.1-1.8); ALBUMIN 4.4 g/dL (3.0-4.8); ALT/SGPT 27 U/L (7-56); AST/SGOT 29 U/L (14-36); BLOOD UREA NITROGEN 8 mg/dL (7-21); CALCIUM 9.6 mg/dL (8.4-10.5); GFR NON-AFRICAN AMERICAN > 60
[2017-12-24 15:06] LABS: INR 2.57; PARTIAL THROMBOPLASTIN TIME 47.6 Seconds (25.1-36.5); PROTHROMBIN TIME 29.9 SECONDS (9.4-12.5)
[2017-12-24 15:15] LABS: B-TYPE NATRIURETIC PEPTIDE 2580 pg/mL (0-450); TROPONIN I < 0.01 ng/mL
[2017-12-24 16:18] VITALS: BP 145/78; PULSE 86; RESP 20; TEMP 98
--- NOTE | 2017-12-24 20:43 | CARD ---
APPROVED REPORT Date of service: 12/24/2017 EKG Measurement Heart [id number] <Conclusion> Atrial fibrillation with rapid ventricular response ST & T wave abnormality, consider inferior ischemia or digitalis effect Abnormal ECG
== END 2017-12-24 16:17 | disposition left against medical advice (07) ==
LOC: ED 13:45
DX: J44.1 Chronic obstructive pulmonary disease with (acute) exacerbation (principal); I11.0 Hypertensive heart disease with heart failure; I50.9 Heart failure, unspecified; I48.91 Unspecified atrial fibrillation; Z79.01 Long term (current) use of anticoagulants; F17.210 Nicotine dependence, cigarettes, uncomplicated
CPT/HCPCS: 71045; 80053; 80162; 81001; 82550; 82803; 83615; 83735; 83880; 84484; 85025; 85610; 85730; 87086; 93005; 96374; 99281; J2930

== ENCOUNTER 2017-12-25 10:24 | Inpatient (IN) | payer MEDICARE, OTHER ==
[2017-12-25 10:31] VITALS: BMI 27.6
[2017-12-25] MEDS ORDERED: Albuterol-Ipratrop 3 mg / 0.5 (3 ml) UD IH STA (10:36)
--- NOTE | 2017-12-25 10:47 | ED PDOC ---
Arrival/HPI - General Chief Complaint: Shortness Of Breath Time Seen by Provider: 12/25/17 10:26 Historian: Patient - History of Present Illness Narrative History of Present Illness (Text): 12/25/17 10:30 72 year old female, whose past medical history includes atrial fibrillation on coumadin, COPD, diastolic congestive heart failure, anxiety, and hypertension, who presents to the emergency department complaining of shortness of breath, cough, and congestion. Patient was here yesterday and signed out AMA. Patient states she did fill her Prednisone prescription, but notes symptoms are getting worse again. Patient still smokes, not a drinker. Patient denies any other complaints. Time/Duration: Other (patient presents for worsening SOB, cough and congestion) Symptom Onset: Sudden Symptom Course: Unchanged Activities at Onset: Light Associated Symptoms (Text): 12/25/17 10:53 Signed out AMA yesterday after admission for an exacerbation of COPD. Patient reports she did take her prednisone overnight. Her coughing and shortness of breath became worse overnight so she came back to the emergency department. She continues to smoke. Past Medical History - Provider Review Nursing Documentation Reviewed: Yes - Infectious Disease Hx of Infectious Diseases: None - Reproductive Menopause: Yes - Cardiac Hx Cardiac Disorders: Yes (A Fib on coumadin) Hx Congestive Heart Failure: Yes Hx Hypertension: Yes - Pulmonary Hx Chronic Obstructive Pulmonary Disease (COPD): Yes - Neurological Hx Neurological Disorder: Yes (headaches) Hx Dizziness: Yes - HEENT Hx HEENT Disorder: No - Renal Hx Renal Disorder: No - Endocrine/Metabolic Hx Endocrine Disorders: No - Hematological/Oncological Hx Blood Disorders: No - Integumentary Hx Dermatological Disorder: No - Musculoskeletal/Rheumatological Hx Falls: Yes (recently) - Gastrointestinal Hx Gastrointestinal Disorders: Yes (reflux) - Genitourinary/Gynecological Hx Genitourinary Disorders: No Hx Reproductive Disorders: No - Psychiatric Hx Psychophysiologic Disorder: Yes Hx Anxiety: Yes Hx Depression: Yes Hx Substance Use: No - Surgical History Hx Cardiac Catheterization: Yes (X1) Hx Coronary Stent: Yes (unknown) Other/Comment: robotic left lower wedge resection and lymphaderectomy 06/2015, polypectomy, left lung nodule removed 2 yrs ago at [facility] benign - Anesthesia Hx Anesthesia: Yes Hx Anesthesia Reactions: No Hx Malignant Hyperthermia: No - Suicidal Assessment Feels Threatened In Home Enviroment: No Family/Social History - Physician Review Nursing Documentation Reviewed: Yes Family/Social History: Unknown Family HX Smoking Status: Light Smoker < 10 Cigarettes Daily Hx Alcohol Use: No Hx Substance Use: No Allergies/Home Meds Allergies/Adverse Reactions: Allergies azithromycin [From Zithromax] Adverse Reaction (Intermediate, Verified 10/22/17 10:22) RASH "JUST DOES NOT WORK" Home Medications: Home Meds Medication Instructions Recorded Confirmed ALPRAZolam [Xanax] 1 mg PO TID 10/24/17 10/30/17 Fluticasone/Salmeterol [Advair 1 puff IH Q12 10/24/17 10/30/17 250-50 Diskus] Gabapentin [Neurontin] 400 mg PO BID 10/24/17 10/30/17 Levalbuterol HCl [Xopenex] 0 inh INH Q6H PRN 10/24/17 10/30/17 Lisinopril [Zestril] 2.5 mg PO DAILY 10/24/17 10/30/17 Metoprolol Tartrate [Lopressor] 25 mg PO BID 10/24/17 10/30/17 Pantoprazole Sodium [Protonix] 40 mg PO ACB 10/24/17 10/30/17 Sertraline [Zoloft] 100 mg PO BID 10/24/17 10/30/17 Review of Systems - Physician Review All systems were reviewed & negative as marked: Yes - Review of Systems Constitutional: Fatigue Eyes: Normal ENT: absent: Normal Respiratory: SOB (patient notes worsening SOB), Cough (patient notes unproductive cough), Wheezing. absent: Normal Cardiovascular: absent: Chest Pain, Orthopnea, Syncope Gastrointestinal: absent: Abdominal Pain, Nausea, Vomiting Musculoskeletal: Normal Skin: Normal Neurological: Normal Physical Exam Vital Signs Reviewed: Yes Vital Signs Temp Pulse BP Pulse Ox 12/25/17 10:37 97.7 F 84 142/78 97 Temperature: Afebrile Blood Pressure: Normal Pulse: Regular Respiratory Rate: Tachypneic Appearance: Positive for: Well-Appearing, Non-Toxic Mental Status: Positive for: Alert and Oriented X 3 - Systems Exam Head: Present: Atraumatic, Normocephalic Pupils: Present: PERRL Extroacular Muscles: Present: EOMI Conjunctiva: Present: Normal Ears: Present: NORMAL TM, Normal Canal. No: Erythema Mouth: Present: Moist Mucous Membranes Pharnyx: No: ERYTHEMA, EXUDATE, TONSILS ENLARGED Neck: Present: Normal Range of Motion Respiratory/Chest: Present: Respiratory Distress (Moderate respiratory distress), Accessory Muscle Use, Wheezes (wheezing throughout bilaterally), Decreased Breath Sounds, Retracting, Rhonchi, Tachypneic. No: Rales Cardiovascular: Present: Normal S1, S2, Irregular Rhythm (Normal rate). No: Murmurs Abdomen: No: Tenderness, Distention, Peritoneal Signs Back: Present: Normal Inspection Upper Extremity: Present: Normal Inspection. No: Cyanosis, Edema Lower Extremity: Present: Normal Inspection. No: Edema Neurological: Present: GCS=15, CN II-XII Intact, Speech Normal, Motor Func Grossly Intact Skin: Present: Warm, Dry, Normal Color. No: Rashes Psychiatric: Present: Alert, Oriented x 3, Normal Insight, Normal Concentration Medical Decision Making ED Course and Treatment: 12/25/17 10:30 Impression: 72 year old female presents to the emergency department for worsening SOB, cough and congestion. Differential Diagnosis included but are not limited to: Plan: -- EKG -- Labs -- X-Ray of chest -- Duoneb 3mg/0.5 mg (3 ml) -- SOLU-Medrol -- Blood culture -- Reassess and disposition Prior Visits: Notes and results from previous visits were reviewed. Patient was last seen in the emergency department yesterday on 12/24/17 for worsening SOB and productive cough since that morning. Patient signed out AMA and was directed to return to the emergency department if symptoms worsen/any concerns. Progress Notes: 12/25/17 10:55 EKG shows atrial fibrillation rate approximately [address] and T- wave changes - RAD Interpretation Radiology Orders: 12/25/17 10:36 CHEST PORTABLE [RAD] Stat Chest one view shows no infiltrate effusion or cardiomegaly. Associate Professor Of Psychology: ED Physician - EKG Interpretation Interpreted by ED Physician: Yes Type: 12 lead EKG - Medication Orders Current Medication Orders: Discontinued Medications Albuterol/Ipratropium (Duoneb 3 Mg/0.5 Mg (3 Ml) Ud) 3 ml IH STAT STA Stop: 12/25/17 10:37 Methylprednisolone (Solu-Medrol) 125 mg IVP STAT STA Stop: 12/25/17 10:37 - Scribe Statement The provider has reviewed the documentation as recorded by the Scribe Lizett Vu All medical record entries made by the Scribe were at my direction and personally dictated by me. I have reviewed the chart and agree that the record accurately reflects my personal performance of the history, physical exam, medical decision making, and the department course for this patient. I have also personally directed, reviewed, and agree with the discharge instructions and disposition. Disposition/Present on Arrival - Present on Arrival Any Indicators Present on Arrival: No History of DVT/PE: No History of Uncontrolled Diabetes: No Urinary Catheter: No History of Decub. Ulcer: No History Surgical Site Infection Following: None - Disposition Have Diagnosis and Disposition been Completed?: Yes Diagnosis: Hyponatremia, COPD exacerbation, Atrial fibrillation, Dyspnea, Asthmatic bronchitis Disposition: HOSPITALIZED Disposition Time: 11:50 Patient Plan: Observation Patient Problems: Current Active Problems Problem Status Onset COPD exacerbation Acute Hyponatremia Acute Atrial fibrillation Chronic Condition: FAIR Forms: [employer] ([place])
--- NOTE | 2017-12-25 11:20 | CARD ---
APPROVED REPORT Date of service: 12/25/2017 EKG Measurement Heart [id number] <Conclusion> Atrial fibrillation ST & T wave abnormality, consider lateral ischemia or digitalis effect Abnormal ECG
[2017-12-25 11:24] LABS: GRAN # 9.64 (1.4-6.5); GRAN % 92.4 % (50.0-68.0); LYMPH # 0.5 (1.2-3.4); LYMPH % 4.9 % (22.0-35.0); MEAN CORPUSCULAR HEMOGLOBIN 29.9 pg (25.0-35.0); MEAN CORPUSCULAR HGB CONC 33.9 g/dl (31.0-37.0); MEAN PLATELET VOLUME 8.7 fl (7.0-11.0); MONO # 0.3 (0.1-0.6); MONO % 2.7 % (1.0-6.0); PLATELET COUNT 265 10^3/uL (120.0-450.0); RBC 4.35 10^6/uL (3.5-6.1); RED CELL DISTRIBUTION WIDTH 13.6 % (11.5-14.5); WHITE BLOOD COUNT 10.4 10^3/ul (4.5-11.0)
[2017-12-25 11:40] LABS: ALB/GLOB RATIO 1.7 (1.1-1.8); ALBUMIN 4.3 g/dL (3.0-4.8); ALT/SGPT 20 U/L (7-56); AST/SGOT 29 U/L (14-36); BLOOD UREA NITROGEN 14 mg/dL (7-21); CALCIUM 9.8 mg/dL (8.4-10.5); GFR NON-AFRICAN AMERICAN > 60
--- NOTE | 2017-12-25 11:41 | RAD ---
Date of service: 12/25/2017 HISTORY: Shortness of breath COMPARISON: 12/24/2017. FINDINGS: LUNGS: The lungs are well inflated and clear. No significant pleural effusion identified, no pneumothorax apparent. CARDIOVASCULAR: Normal. OSSEOUS STRUCTURES: No significant abnormalities. VISUALIZED UPPER ABDOMEN: Normal. OTHER FINDINGS: None. IMPRESSION: No active pulmonary disease.
[2017-12-25] MEDS ORDERED: Albuterol 0.083% Inhal Sol (2.5 mg/3 mL) UD INH STA (11:42)
[2017-12-25 11:45] LABS: TROPONIN I < 0.01 ng/mL
[2017-12-25 12:16] LABS: ATYPICAL LYMPHOCYTE 1 % (0.0-0.0); LYMPHOCYTE 2 % (22.0-35.0); MONOCYTE 2 % (1.0-6.0); NEUTROPHIL 95 % (50.0-70.0)
--- NOTE | 2017-12-25 13:08 | CP.PCM.HP ---
History of Present Illness - History of Present Illness History of Present Illness: Subjective: Physical Examination: Assessment and Plan: Past Patient History - Infectious Disease Hx of Infectious Diseases: None - Past Medical History & Family History Past Medical History?: Yes - Past Social History Smoking Status: Light Smoker < 10 Cigarettes Daily - CARDIAC Hx Cardiac Disorders: Yes (A Fib on coumadin) Hx Congestive Heart Failure: Yes Hx Hypertension: Yes - PULMONARY Hx Chronic Obstructive Pulmonary Disease (COPD): Yes - NEUROLOGICAL Hx Neurological Disorder: Yes (headaches) Hx Dizziness: Yes - HEENT Hx HEENT Problems: No - RENAL Hx Chronic Kidney Disease: No - ENDOCRINE/METABOLIC Hx Endocrine Disorders: No - HEMATOLOGICAL/ONCOLOGICAL Hx Blood Disorders: No - INTEGUMENTARY Hx Dermatological Problems: No - MUSCULOSKELETAL/RHEUMATOLOGICAL Hx Falls: Yes (recently) - GASTROINTESTINAL Hx Gastrointestinal Disorders: Yes (reflux) - GENITOURINARY/GYNECOLOGICAL Hx Genitourinary Disorders: No Hx Reproductive Disorders: No - PSYCHIATRIC Hx Psychophysiologic Disorder: Yes Hx Anxiety: Yes Hx Depression: Yes Hx Substance Use: No - SURGICAL HISTORY Hx Cardiac Catheterization: Yes (X1) Hx Coronary Stent: Yes (unknown) Other/Comment: robotic left lower wedge resection and lymphaderectomy 06/2015, polypectomy, left lung nodule removed 2 yrs ago at [facility] benign - ANESTHESIA Hx Anesthesia: Yes Hx Anesthesia Reactions: No Hx Malignant Hyperthermia: No Meds Allergies/Adverse Reactions: Allergies Allergy/AdvReac Type Severity Reaction Status Date / Time azithromycin [From Zithromax] AdvReac Intermediate RASH Verified 10/22/17 10:22 Results - Vital Signs Recent Vital Signs: Last Vital Signs Temp 97.6 F 12/25/17 12:35 Pulse 86 12/25/17 12:35 Resp 20 12/25/17 10:45 BP 124/88 12/25/17 12:35 Pulse Ox 93 L 12/25/17 12:35 - Labs Result Diagrams: 12/25/17 11:20 12/25/17 11:20 Labs: Laboratory Results - last 24 hr 12/25/17 12/25/17 11:20 11:20 WBC 10.4 RBC 4.35 Hgb 13.0 Hct 38.3 MCV 88.0 MCH 29.9 MCHC 33.9 RDW 13.6 Plt Count 265 MPV 8.7 Gran % 92.4 H Lymph % (Auto) 4.9 L [place] % (Auto) 2.7 Eos % (Auto) 0.0 L Baso % (Auto) 0.0 Gran # 9.64 H Lymph # (Auto) 0.5 L [place] # (Auto) 0.3 Eos # (Auto) 0.0 Baso # (Auto) 0.00 Neutrophils % (Manual) 95 H Lymphocytes % (Manual) 2 L Atypical Lymphs % 1 H Monocytes % (Manual) 2 Sodium 130 L Potassium 4.4 Chloride 89 L Carbon Dioxide 30 Anion Gap 15 BUN 14 Creatinine 0.5 L Est GFR ( Amer) > 60 Est GFR (Non-Af Amer) > 60 Random Glucose 141 H Calcium 9.8 Magnesium 1.6 L Total Bilirubin 0.5 AST 29 ALT 20 Alkaline Phosphatase 44 Lactate Dehydrogenase 533 Total Creatine Kinase 75 Troponin I < 0.01 Total Protein 6.8 Albumin 4.3 Globulin 2.5 Albumin/Globulin Ratio 1.7
[2017-12-25] MEDS ORDERED: Magnesium Sulfate 2 gm/50 ml 2 GM/50 ML BAG IVPB ONE (14:11)
[2017-12-25] MEDS ORDERED: cefTRIAXone 1 gm 1 GM/100 ML BAG IVPB SCH (14:30)
--- NOTE | 2017-12-25 15:44 | CP.PCM.HP ---
<Froylan Lucero - Last Filed: 12/25/17 15:52> History of Present Illness - History of Present Illness History of Present Illness: CC: SOB, cough HPI: Patient is a 72yo female with a PMH of Atrial fibrillation on warfarin, COPD, diastolic congestive heart failure, HTN, and Anxiety. Pt presents today with SOB for two days and a feeling of an elephant sitting on my chest. Pt states she has COPD diagnosed in 2016 and since then has had episodes of SOB and a chronic cough, and that this feels similar to those episodes in the past. She has multiple admission to this hosptial in the past year for similar complaints. Now she is usually able to do housework without getting short of breath, but states this morning she was having more trouble. She went to the ED last night for similar complaints but left AMA with a script for 5 tabs of prednisone which she filled and took one of at 2am this morning. She also used her nebulizer with Advair this morning with minimal relief. Pt has a productive cough with clear mucus. Cough comes and goes for the last two years. Pt also has hx of anxiety for which she sees Dr. Morrow in [place] and is taking Xanax and Zoloft. Pt has a hx of recent falls, last fall was ten days ago. She has visible bruising on lower extremities from fall. ROS: + sob, productive cough, anxiety, occasionally feels unsteady. Denies chest pain, palpitations, sweating, headache, n/v, diarrhea/constipation PMH: as per HPI Allergies: azithromycin-rash PSH: lipoma resection SH: Retired. lives with daughter and granddaughter. Has smoked cigarettes 2PPD for 58years. Now smokes <10 cigarettes a day. Denies etoh and illicit drug use. Reports misusing her Xanax, was taking six 1mg tabs every day but is now taking them as prescribed. PCP: Dr. Casas Psychiatrist: Dr. Morrow Home Meds Ventolin 1 puff Q6 Advair 250/50 1 puff BID Albuterol .83, 1 vile in nebulizer q6 PRN Warfarin 1 mg, 3mg, 5mg Digoxin .25 1 tab at 1400h Hydrocortisone cream 1% Lisinopril 2.5mg 1 tab QD Atenolol 50mg QD Xanax 1mg TID PRN Zoloft 200mg 1 tab QD, 50mg 1 tab HS Gabapentin 400mg QD Present on Admission - Present on Admission Any Indicators Present on Admission: No Review of Systems - Review of Systems Review of Systems: as per HPI Past Patient History - Infectious Disease Hx of Infectious Diseases: None - Past Medical History & Family History Past Medical History?: Yes - Past Social History Smoking Status: Light Smoker < 10 Cigarettes Daily - CARDIAC Hx Cardiac Disorders: Yes (A Fib on coumadin) Hx Congestive Heart Failure: Yes Hx Hypertension: Yes - PULMONARY Hx Chronic Obstructive Pulmonary Disease (COPD): Yes - NEUROLOGICAL Hx Neurological Disorder: Yes (headaches) Hx Dizziness: Yes - HEENT Hx HEENT Problems: No - RENAL Hx Chronic Kidney Disease: No - ENDOCRINE/METABOLIC Hx Endocrine Disorders: No - HEMATOLOGICAL/ONCOLOGICAL Hx Blood Disorders: No - INTEGUMENTARY Hx Dermatological Problems: No - MUSCULOSKELETAL/RHEUMATOLOGICAL Hx Falls: Yes (recently) - GASTROINTESTINAL Hx Gastrointestinal Disorders: Yes (reflux) - GENITOURINARY/GYNECOLOGICAL Hx Genitourinary Disorders: No Hx Reproductive Disorders: No - PSYCHIATRIC Hx Psychophysiologic Disorder: Yes Hx Anxiety: Yes Hx Depression: Yes Hx Substance Use: No - SURGICAL HISTORY Hx Cardiac Catheterization: Yes (X1) Hx Coronary Stent: Yes (unknown) Other/Comment: robotic left lower wedge resection and lymphaderectomy 06/2015, polypectomy, left lung nodule removed 2 yrs ago at [facility] benign - ANESTHESIA Hx Anesthesia: Yes Hx Anesthesia Reactions: No Hx Malignant Hyperthermia: No Meds Allergies/Adverse Reactions: Allergies Allergy/AdvReac Type Severity Reaction Status Date / Time azithromycin [From Zithromax] AdvReac Intermediate RASH Verified 10/22/17 10:22 Physical Exam - Constitutional Appears: Well, No Acute Distress - Head Exam Head Exam: ATRAUMATIC, NORMOCEPHALIC - Eye Exam Eye Exam: EOMI, Normal appearance, PERRL Pupil Exam: NORMAL ACCOMODATION - ENT Exam ENT Exam: Mucous Membranes Moist - Respiratory Exam Respiratory Exam: Wheezes. absent: Accessory Muscle Use, Rales, Stridor Additional comments: expiratory wheezes b/l - Cardiovascular Exam Cardiovascular Exam: REGULAR RHYTHM, +S1, +S2. absent: Gallop, Rubs, Systolic Murmur - GI/Abdominal Exam GI & Abdominal Exam: Normal Bowel Sounds, Soft. absent: Tenderness - Extremities Exam Extremities exam: Positive for: normal inspection. Negative for: pedal edema Results - Vital Signs Recent Vital Signs: Last Vital Signs Temp 97.6 F 12/25/17 12:35 Pulse 77 12/25/17 15:14 Resp 30 H 12/25/17 15:14 BP 113/80 12/25/17 15:14 Pulse Ox 97 12/25/17 15:14 - Labs Result Diagrams: 12/25/17 11:20 12/25/17 11:20 Labs: Laboratory Results - last 24 hr 12/25/17 12/25/17 11:20 11:20 WBC 10.4 RBC 4.35 Hgb 13.0 Hct 38.3 MCV 88.0 MCH 29.9 MCHC 33.9 RDW 13.6 Plt Count 265 MPV 8.7 Gran % 92.4 H Lymph % (Auto) 4.9 L [place] % (Auto) 2.7 Eos % (Auto) 0.0 L Baso % (Auto) 0.0 Gran # 9.64 H Lymph # (Auto) 0.5 L [place] # (Auto) 0.3 Eos # (Auto) 0.0 Baso # (Auto) 0.00 Neutrophils % (Manual) 95 H Lymphocytes % (Manual) 2 L Atypical Lymphs % 1 H Monocytes % (Manual) 2 Sodium 130 L Potassium 4.4 Chloride 89 L Carbon Dioxide 30 Anion Gap 15 BUN 14 Creatinine 0.5 L Est GFR ( Amer) > 60 Est GFR (Non-Af Amer) > 60 Random Glucose 141 H Calcium 9.8 Magnesium 1.6 L Total Bilirubin 0.5 AST 29 ALT 20 Alkaline Phosphatase 44 Lactate Dehydrogenase 533 Total Creatine Kinase 75 Troponin I < 0.01 Total Protein 6.8 Albumin 4.3 Globulin 2.5 Albumin/Globulin Ratio 1.7 Assessment & Plan - Assessment and Plan (Free Text) Assessment: Pt is a 72 year old female with PMH of A fib, COPD, CHF, Anxiety, presenting with SOB and productive cough. Pt willl carlos treated for probable COPD exacerbation and maintenance of A fib. Plan: COPD exacerbation - Hx of COPD since 2016, reports 2PPD tobacco x 58 years with current tobacco use. - Diffuse wheezes on exhalation - CXR in ED 12/25 was negative for acute disease. - Start on duonebs 3ml q4 - Start Arformoterol 15mcg IH q12 - Start budesonide 0.5mg IH Q12 - Start on Doxycycline - Supplemental O2 as needed - Monitor breathing - f/u with blood culture Atrial Fibrillation - Hx of A fib. Denies chest pain. - EKG 12/25: shows atrial fibrillation rate approximately [address] and T-wave changes - Labs: f/u digoxin level, if therapeutic range continue pts home digoxin .25 QD. - Continue Atenolol 50mg QD - Continue Warfarin 3mg - Continue monitoring INR at therapeutic level 2-2.5. - Continue to trend EKG CHF - diastolic CHF w last known EF 55-60% (05/2017) - continue home lisinopril - hold Lasix for now, recheck AM electrolytes Hyponatremia - Na 130 on admission, likely due to Lasix use - Will hold home Lasix. - Check electrolyte levels in the morning. Hypomagnesemia - Mg 1.6 on admission 12/25. likely due to Lasix use - Will hold lasix - Replete Mg, 2gm IV now then Magnesium oxalate 400 PO BID. Anxiety - Continue sertraline - Continue Xanax Tobacco Use Disorder - advised cessation Pt seen, plan reviewed and discussed with Dr. Sparrow <Mak Sparrow - Last Filed: 12/25/17 16:14> Results - Vital Signs Recent Vital Signs: Last Vital Signs Temp 97.6 F 12/25/17 12:35 Pulse 77 12/25/17 15:14 Resp 30 H 12/25/17 15:14 BP 113/80 12/25/17 15:14 Pulse Ox 97 12/25/17 15:14 - Labs Result Diagrams: 12/25/17 11:20 12/25/17 11:20 Labs: Laboratory Results - last 24 hr 12/25/17 12/25/17 11:20 11:20 WBC 10.4 RBC 4.35 Hgb 13.0 Hct 38.3 MCV 88.0 MCH 29.9 MCHC 33.9 RDW 13.6 Plt Count 265 MPV 8.7 Gran % 92.4 H Lymph % (Auto) 4.9 L [place] % (Auto) 2.7 Eos % (Auto) 0.0 L Baso % (Auto) 0.0 Gran # 9.64 H Lymph # (Auto) 0.5 L [place] # (Auto) 0.3 Eos # (Auto) 0.0 Baso # (Auto) 0.00 Neutrophils % (Manual) 95 H Lymphocytes % (Manual) 2 L Atypical Lymphs % 1 H Monocytes % (Manual) 2 Sodium 130 L Potassium 4.4 Chloride 89 L Carbon Dioxide 30 Anion Gap 15 BUN 14 Creatinine 0.5 L Est GFR ( Amer) > 60 Est GFR (Non-Af Amer) > 60 Random Glucose 141 H Calcium 9.8 Magnesium 1.6 L Total Bilirubin 0.5 AST 29 ALT 20 Alkaline Phosphatase 44 Lactate Dehydrogenase 533 Total Creatine Kinase 75 Troponin I < 0.01 Total Protein 6.8 Albumin 4.3 Globulin 2.5 Albumin/Globulin Ratio 1.7 Attending/Attestation - Attestation I have personally seen and examined this patient.: Yes I have fully participated in the care of the patient.: Yes I have reviewed all pertinent clinical information: Yes Notes (Text): 12/25/17 16:10 Medical record note made by the resident after discussion with my direction and input after the patient was personally seen and examined by me. I have reviewed the chart and agree that the record accurately reflects by personal performance of the history, physical exam, data review, and medical decision-making, in the course for the patient. I have also personally directed the plan of care. 72 year old female with PMH of COPD, chronic Atrial fib on oral anticoagulation with warfarin, , CH F with diastolic dysfunction , Anxiety, with COPD exacerbation. Agreed with Neb/Steroid and antibiotics. AF , rate is controlled with cardizem and Metoprolol.INR is therapeutic. Mild Hyponatremia likely due to lasix.Patient is euvolemic, we will hold lasix and will monitor.Patient is asymptomatic at this time. Management plan was discussed in detail with patient. Education was provided.
[2017-12-25] MEDS: Albuterol-Ipratrop 3 mg / 0.5 (3 ml) UD IH SCH ×3 (15:59→23:18)
[2017-12-25 19:20] LABS: INR 2.21; PROTHROMBIN TIME 25.6 SECONDS (9.4-12.5)
[2017-12-25] MEDS: Arformoterol 15 mcg/2 ml Inh Sol IH SCH (19:52)
[2017-12-25] MEDS: Budesonide 0.5 mg/2 ml Inhal Susp UD IH SCH (19:52)
[2017-12-25] MEDS ORDERED: Fluticasone-Salmeterol 250-50mcg Diskus IH SCH (22:00)
[2017-12-26] MEDS: Albuterol-Ipratrop 3 mg / 0.5 (3 ml) UD IH PRN ×2 (01:49→06:36)
[2017-12-26] MEDS ORDERED: Pneumococcal 23-Valent Vaccine IM ONE (03:08)
[2017-12-26] MEDS ORDERED: Influenza Vaccine 60 mcg/0.5 mL SYR (4YR UP) IM ONE (03:09)
[2017-12-26] MEDS: Albuterol-Ipratrop 3 mg / 0.5 (3 ml) UD IH SCH ×6 (04:06→23:33)
[2017-12-26] MEDS ORDERED: MethylPREDNISolone 40 mg Vial IVP ONE (04:45)
[2017-12-26] MEDS: Arformoterol 15 mcg/2 ml Inh Sol IH SCH ×2 (07:24→19:10)
[2017-12-26] MEDS: Budesonide 0.5 mg/2 ml Inhal Susp UD IH SCH ×2 (07:25→19:10)
[2017-12-26 07:35] LABS: GRAN # 17.66 (1.4-6.5); GRAN % 93.2 % (50.0-68.0); HEMOGLOBIN 13.6 g/dL (12.0-16.0); LYMPH # 0.6 (1.2-3.4); LYMPH % 3.4 % (22.0-35.0); MEAN CELL VOLUME 89.7 fl (80.0-105.0); MEAN CORPUSCULAR HEMOGLOBIN 29.8 pg (25.0-35.0); MEAN CORPUSCULAR HGB CONC 33.3 g/dl (31.0-37.0); MEAN PLATELET VOLUME 8.6 fl (7.0-11.0); MONO # 0.7 (0.1-0.6); MONO % 3.4 % (1.0-6.0); RBC 4.56 10^6/uL (3.5-6.1)
[2017-12-26 07:39] LABS: INR 2.23; PROTHROMBIN TIME 26.1 SECONDS (9.4-12.5)
[2017-12-26 07:46] LABS: ALB/GLOB RATIO 1.6 (1.1-1.8); ALBUMIN 4.2 g/dL (3.0-4.8); ALT/SGPT 23 U/L (7-56); AST/SGOT 27 U/L (14-36); BLOOD UREA NITROGEN 17 mg/dL (7-21); CALCIUM 9.7 mg/dL (8.4-10.5); GFR NON-AFRICAN AMERICAN > 60
[2017-12-26] MEDS: Magnesium Oxide 400 mg Tab UD PO SCH ×2 (09:48→17:09)
[2017-12-26] MEDS ORDERED: Fluticasone Nasal 50 mcg/Spray NS SCH (10:00)
[2017-12-26] MEDS ORDERED: MethylPREDNISolone 40 mg Vial IVP SCH (10:00)
[2017-12-26] MEDS: MethylPREDNISolone 40 mg Vial IVP SCH ×2 (12:54→21:26)
[2017-12-26] MEDS: Digoxin 250 mcg (0.25 mg) Tab PO SCH (13:01)
--- NOTE | 2017-12-26 14:01 | CP.PCM.PN ---
<Froylan Lucero - Last Filed: 12/26/17 14:29> Subjective - Date & Time of Evaluation Date of Evaluation: 12/26/17 Time of Evaluation: 11:00 - Subjective Subjective: Froylan Lucero PGY1 Progress Note for Dr. Sparrow Pt was examined at bedside this morning. She reports worsening of her shortness of breath. She denies any dizziness, chest pain, nausea, vomiting, diarrhea. Objective - Vital Signs/Intake and Output Vital Signs (last 24 hours): Temp Pulse Resp BP Pulse Ox 97.4 F L 83 22 137/63 98 12/26/17 06:00 12/26/17 09:48 12/26/17 06:00 12/26/17 12:55 12/26/17 06:00 Intake and Output: 12/26/17 12/26/17 06:59 18:59 Intake Total 120 120 Output Total 1 Balance 120 119 - Medications Medications: Current Medications Albuterol/Ipratropium (Duoneb 3 Mg/0.5 Mg (3 Ml) Ud) 3 ml IH [id number] [facility] Last Admin: 12/26/17 11:16 Dose: 3 ml Albuterol/Ipratropium (Duoneb 3 Mg/0.5 Mg (3 Ml) Ud) 3 ml IH Q2H PRN PRN Reason: Shortness of Breath Last Admin: 12/26/17 06:36 Dose: 3 ml Alprazolam (Xanax) 1 mg PO TID [facility]; Protocol Last Admin: 12/26/17 13:01 Dose: 1 mg Arformoterol Tartrate (Brovana) 15 mcg IH [id number] [facility] Last Admin: 12/26/17 07:24 Dose: 15 mcg Atenolol (Tenormin) 50 mg PO DAILY [facility] Last Admin: 12/26/17 09:48 Dose: 50 mg Budesonide (Pulmicort Respules) 0.5 mg IH [id number] [facility] Last Admin: 12/26/17 07:25 Dose: 0.5 mg Digoxin (Lanoxin) 0.25 mg PO 1400 [facility] Last Admin: 12/26/17 13:01 Dose: 0.25 mg Gabapentin (Neurontin) 400 mg PO DAILY [facility]; Protocol Last Admin: 12/26/17 09:47 Dose: 400 mg Doxycycline Hyclate 100 mg/ (Sodium Chloride) 100 mls @ 100 mls/hr IVPB Q12 [facility]; Protocol Last Admin: 12/26/17 10:55 Dose: 100 mls/hr Lisinopril (Zestril) 2.5 mg PO DAILY [facility] Last Admin: 12/26/17 09:48 Dose: 2.5 mg Magnesium Oxide (Mag-Ox) 400 mg PO BID [facility] Last Admin: 12/26/17 09:48 Dose: 400 mg Methylprednisolone (Solu-Medrol) 40 mg IVP DAILY [facility] Last Admin: 12/26/17 04:50 Dose: 40 mg Methylprednisolone (Solu-Medrol) 40 mg IVP Q12 [facility] Last Admin: 12/26/17 12:54 Dose: 40 mg Sertraline HCl (Zoloft) 250 mg PO DAILY [facility] Last Admin: 12/26/17 09:47 Dose: 250 mg Warfarin Sodium (Coumadin) 3 mg PO 1800 [facility]; Protocol Last Admin: 12/25/17 22:14 Dose: 3 mg - Labs Labs: 12/26/17 07:00 12/26/17 07:00 PT 26.1 SECONDS (9.4-12.5) H 12/26/17 07:00 INR 2.23 12/26/17 07:00 - Constitutional Appears: Well, No Acute Distress - Head Exam Head Exam: ATRAUMATIC, NORMOCEPHALIC - Eye Exam Eye Exam: EOMI, Normal appearance, PERRL Pupil Exam: NORMAL ACCOMODATION - ENT Exam ENT Exam: Mucous Membranes Moist, Normal Exam - Respiratory Exam Respiratory Exam: Accessory Muscle Use, Clear to Ausculation Bilateral, Rhonchi, Wheezes. absent: Rales - Cardiovascular Exam Cardiovascular Exam: REGULAR RHYTHM, +S1, +S2. absent: Gallop, Rubs, Murmur - GI/Abdominal Exam GI & Abdominal Exam: Firm, Rigid, Soft, Normal Bowel Sounds. absent: Distended, Tenderness - Extremities Exam Extremities Exam: Normal Inspection. absent: Pedal Edema - Neurological Exam Neurological Exam: Alert, Awake, Oriented x3 - Psychiatric Exam Psychiatric exam: Anxious - Skin Skin Exam: absent: Cyanosis Assessment and Plan - Assessment and Plan (Free Text) Assessment: Pt is a 72 year old female with PMH of A fib, COPD, CHF, Anxiety, presenting with SOB and productive cough. Pt willl carlos treated for probable COPD exacerbation and maintenance of A fib. Plan: COPD exacerbation - Hx of COPD since 2016, reports 2PPD tobacco x 58 years with current tobacco use. - Diffuse wheezes on exhalation - f/u repeat CXR - CXR in ED 12/25 was negative for acute disease. - continue on duonebs 3ml q4 - continue Arformoterol 15mcg IH q12 - continue budesonide 0.5mg IH Q12 - continue on Doxycycline - start solumedrol 40 IV BID - Supplemental O2 as needed - Monitor breathing - f/u with blood culture Atrial Fibrillation - Hx of A fib. Denies chest pain. - EKG 12/25: shows atrial fibrillation rate approximately [address] and T-wave changes - Labs: f/u digoxin level, if therapeutic range continue pts home digoxin .25 QD. - Continue Atenolol 50mg QD - Continue Warfarin 3mg - Continue monitoring INR at therapeutic level 2-2.5. CHF - diastolic CHF w last known EF 55-60% (05/2017) - BNP 2990 - continue home lisinopril - one dose lasix 20 IV - hold Lasix for now, recheck AM electrolytes Hyponatremia - Na 131 today, likely due to Lasix use - f/u CMP tmrw AM Hypomagnesemia - Mg 2.0, resolved - Magnesium oxalate 400 PO BID. Anxiety - Continue sertraline - Continue Xanax Tobacco Use Disorder - advised cessation Pt seen, plan reviewed and discussed with Dr. Sparrow <Mak Sparrow - Last Filed: 12/30/17 17:04> Objective - Vital Signs/Intake and Output Vital Signs (last 24 hours): Temp Pulse Resp BP Pulse Ox 97.9 F 79 22 139/85 96 12/30/17 14:46 12/30/17 14:46 12/30/17 14:46 12/30/17 14:46 12/30/17 14:46 Intake and Output: 12/30/17 12/30/17 06:59 18:59 Intake Total 660 Balance 660 - Medications Medications: Current Medications Albuterol/Ipratropium (Duoneb 3 Mg/0.5 Mg (3 Ml) Ud) 3 ml IH [id number] [facility] Last Admin: 12/30/17 15:36 Dose: 3 ml Albuterol/Ipratropium (Duoneb 3 Mg/0.5 Mg (3 Ml) Ud) 3 ml IH Q2H PRN PRN Reason: Shortness of Breath Last Admin: 12/27/17 17:57 Dose: 3 ml Arformoterol Tartrate (Brovana) 15 mcg IH [id number] [facility] Last Admin: 12/30/17 07:34 Dose: 15 mcg Atenolol (Tenormin) 50 mg PO DAILY [facility] Last Admin: 12/30/17 10:46 Dose: 50 mg Budesonide (Pulmicort Respules) 0.5 mg IH [id number] [facility] Last Admin: 12/30/17 07:34 Dose: 0.5 mg Digoxin (Lanoxin) 0.25 mg PO 1400 [facility] Last Admin: 12/30/17 13:43 Dose: 0.25 mg Diltiazem HCl (Cardizem Cd) 120 mg PO 2000 [facility] Last Admin: 12/29/17 20:44 Dose: 120 mg Furosemide (Lasix) 20 mg IVP BID [facility] Last Admin: 12/30/17 10:43 Dose: 20 mg Gabapentin (Neurontin) 400 mg PO DAILY [facility]; Protocol Last Admin: 12/30/17 10:45 Dose: 400 mg Lisinopril (Zestril) 10 mg PO DAILY [facility] Last Admin: 12/30/17 10:50 Dose: 10 mg Lorazepam (Ativan) 1 mg PO Q4H PRN; Protocol PRN Reason: Anxiety Last Admin: 12/30/17 00:19 Dose: 1 mg Lorazepam (Ativan) 0.5 mg PO TID [facility]; Protocol Last Admin: 12/30/17 14:02 Dose: 0.5 mg Magnesium Oxide (Mag-Ox) 400 mg PO BID [facility] Last Admin: 12/29/17 10:40 Dose: 400 mg Metoprolol Tartrate (Lopressor) 25 mg PO BID [facility] Last Admin: 12/30/17 10:45 Dose: 25 mg Prednisone (Prednisone Tab) 30 mg PO DAILY [facility] Last Admin: 12/30/17 10:46 Dose: 30 mg Quetiapine Fumarate (Seroquel) 12.5 mg PO HS [facility]; Protocol Sertraline HCl (Zoloft) 250 mg PO DAILY [facility] Last Admin: 12/30/17 10:50 Dose: 250 mg Warfarin Sodium (Coumadin) 3 mg PO 1800 [facility]; Protocol Last Admin: 12/29/17 17:41 Dose: 3 mg - Labs Labs: 12/30/17 06:00 12/30/17 06:00 PT 26.1 SECONDS (9.4-12.5) H 12/26/17 07:00 INR 2.23 12/26/17 07:00 Attending/Attestation - Attestation I have personally seen and examined this patient.: Yes I have fully participated in the care of the patient.: Yes I have reviewed all pertinent clinical information, including history, physical exam and plan: Yes Notes (Text): 12/30/17 17:04 Medical record note made by the resident after discussion with my direction and input after the patient was personally seen and examined by me. I have reviewed the chart and agree that the record accurately reflects by personal performance of the history, physical exam, data review, and medical decision-making, in the course for the patient. I have also personally directed the plan of care.
--- NOTE | 2017-12-26 14:54 | RAD ---
Date of service: 12/26/2017 HISTORY: COPD, shortness of breath COMPARISON: 12/25/2017 FINDINGS: LUNGS: No active pulmonary disease. PLEURA: No significant pleural effusion identified, no pneumothorax apparent. CARDIOVASCULAR: Normal. OSSEOUS STRUCTURES: No significant abnormalities. VISUALIZED UPPER ABDOMEN: Normal. OTHER FINDINGS: None. IMPRESSION: No active disease.
[2017-12-27] MEDS: Albuterol-Ipratrop 3 mg / 0.5 (3 ml) UD IH SCH ×6 (03:24→23:41)
[2017-12-27 07:18] LABS: ALB/GLOB RATIO 1.6 (1.1-1.8); ALBUMIN 4.1 g/dL (3.0-4.8); ALT/SGPT 28 U/L (7-56); AST/SGOT 31 U/L (14-36); BLOOD UREA NITROGEN 22 mg/dL (7-21); CALCIUM 9.5 mg/dL (8.4-10.5); GFR NON-AFRICAN AMERICAN > 60
[2017-12-27 07:19] LABS: GRAN # 10.38 (1.4-6.5); GRAN % 89.3 % (50.0-68.0); HEMOGLOBIN 13.8 g/dL (12.0-16.0); LYMPH # 0.7 (1.2-3.4); MEAN CELL VOLUME 90.6 fl (80.0-105.0); MEAN CORPUSCULAR HEMOGLOBIN 29.4 pg (25.0-35.0); MEAN CORPUSCULAR HGB CONC 32.4 g/dl (31.0-37.0); MEAN PLATELET VOLUME 8.8 fl (7.0-11.0); MONO # 0.6 (0.1-0.6); MONO % 4.7 % (1.0-6.0); RBC 4.7 10^6/uL (3.5-6.1); WHITE BLOOD COUNT 11.6 10^3/ul (4.5-11.0)
[2017-12-27] MEDS: Arformoterol 15 mcg/2 ml Inh Sol IH SCH ×2 (08:41→19:58)
[2017-12-27] MEDS: Budesonide 0.5 mg/2 ml Inhal Susp UD IH SCH ×2 (08:41→19:58)
[2017-12-27] MEDS: MethylPREDNISolone 40 mg Vial IVP SCH ×2 (10:12→21:58)
[2017-12-27] MEDS: Magnesium Oxide 400 mg Tab UD PO SCH ×2 (10:14→17:29)
[2017-12-27] MEDS: Digoxin 250 mcg (0.25 mg) Tab PO SCH (13:35)
--- NOTE | 2017-12-27 14:16 | CP.PCM.PN ---
<Froylan Lucero - Last Filed: 12/27/17 14:53> Subjective - Date & Time of Evaluation Date of Evaluation: 12/27/17 Time of Evaluation: 11:00 - Subjective Subjective: Froylan Lucero PGY1 Progress Note for Dr. Sparrow Pt seen this morning resting in bed. She was diaphoretic and actively short of breath and wheezing. She is saying that she does not feel well. She seems slightly disoriented and when asked where she is she responded "I feel like I'm in an apartment building, this feels like an apartment". She understands that she is in the hospital. Per nursing report she was disoriented overnight and getting out of bed but was redirectable. Pt still has cough. Endorses feeling hot, fatigue, generalized weakness. Denies chills, headache, chest pain, nausea, vomiting, diarrhea, constipation. Objective - Vital Signs/Intake and Output Vital Signs (last 24 hours): Temp Pulse Resp BP Pulse Ox 98.5 F 69 22 167/91 H 100 12/27/17 06:00 12/27/17 10:13 12/27/17 06:00 12/27/17 13:35 12/27/17 06:00 - Medications Medications: Current Medications Albuterol/Ipratropium (Duoneb 3 Mg/0.5 Mg (3 Ml) Ud) 3 ml IH [id number] [facility] Last Admin: 12/27/17 11:36 Dose: 3 ml Albuterol/Ipratropium (Duoneb 3 Mg/0.5 Mg (3 Ml) Ud) 3 ml IH Q2H PRN PRN Reason: Shortness of Breath Last Admin: 12/26/17 06:36 Dose: 3 ml Arformoterol Tartrate (Brovana) 15 mcg IH [id number] [facility] Last Admin: 12/27/17 08:41 Dose: 15 mcg Atenolol (Tenormin) 50 mg PO DAILY [facility] Last Admin: 12/27/17 10:13 Dose: 50 mg Budesonide (Pulmicort Respules) 0.5 mg IH [id number] [facility] Last Admin: 12/27/17 08:41 Dose: 0.5 mg Digoxin (Lanoxin) 0.25 mg PO 1400 [facility] Last Admin: 12/27/17 13:35 Dose: 0.25 mg Furosemide (Lasix) 20 mg IVP BID [facility] Last Admin: 12/27/17 10:12 Dose: 20 mg Gabapentin (Neurontin) 400 mg PO DAILY [facility]; Protocol Last Admin: 12/27/17 10:14 Dose: 400 mg Doxycycline Hyclate 100 mg/ (Sodium Chloride) 100 mls @ 100 mls/hr IVPB Q12 [facility]; Protocol Last Admin: 12/27/17 10:14 Dose: 100 mls/hr Lisinopril (Zestril) 2.5 mg PO DAILY [facility] Last Admin: 12/27/17 10:13 Dose: 2.5 mg Lorazepam (Ativan) 1 mg PO Q4H PRN; Protocol PRN Reason: Anxiety Magnesium Oxide (Mag-Ox) 400 mg PO BID [facility] Last Admin: 12/27/17 10:14 Dose: 400 mg Methylprednisolone (Solu-Medrol) 40 mg IVP Q12 [facility] Last Admin: 12/27/17 10:12 Dose: 40 mg Sertraline HCl (Zoloft) 250 mg PO DAILY [facility] Last Admin: 12/27/17 10:12 Dose: 250 mg Warfarin Sodium (Coumadin) 3 mg PO 1800 [facility]; Protocol Last Admin: 12/26/17 17:09 Dose: 3 mg - Labs Labs: 12/27/17 06:15 12/27/17 06:15 PT 26.1 SECONDS (9.4-12.5) H 12/26/17 07:00 INR 2.23 12/26/17 07:00 - Constitutional Appears: No Acute Distress, Confused - Head Exam Head Exam: ATRAUMATIC, NORMOCEPHALIC - Eye Exam Eye Exam: EOMI, Normal appearance, PERRL Pupil Exam: NORMAL ACCOMODATION - ENT Exam ENT Exam: Mucous Membranes Moist, Normal Exam - Neck Exam Neck Exam: Full ROM, Normal Inspection - Respiratory Exam Respiratory Exam: Accessory Muscle Use, Wheezes. absent: Rales, Rhonchi, Stridor Additional comments: b/l expiratory wheezes, improved - Cardiovascular Exam Cardiovascular Exam: REGULAR RHYTHM, +S1, +S2. absent: Gallop, Rubs, Murmur - GI/Abdominal Exam GI & Abdominal Exam: Soft, Normal Bowel Sounds. absent: Distended, Rigid, Tenderness - Extremities Exam Extremities Exam: Tenderness. absent: Pedal Edema Additional comments: purpura on RLE - Neurological Exam Neurological Exam: Awake. absent: Alert Neuro motor strength exam: Left Lower Extremity: 5, Right Lower Extremity: 5 Additional comments: AAO x1 to person, then later AAOx2 to person and place - Skin Skin Exam: Diaphoretic. absent: Cyanosis, Pallor Assessment and Plan - Assessment and Plan (Free Text) Assessment: Pt is a 72 year old female with PMH of A fib, COPD, CHF, Anxiety, presenting with SOB and productive cough. Pt will be treated for probable COPD exacerbation and maintenance of A fib. Plan: COPD exacerbation - Hx of COPD since 2016, reports 2PPD tobacco x 58 years with current tobacco use. - Diffuse wheezes on exhalation, improved from yesterday - CXR in ED 12/25 was negative for acute disease. - CXR on 12/26 was negative for acute disease - continue on duonebs 3ml q4 - continue duonebs q2h PRN - continue Arformoterol 15mcg IH q12 - continue budesonide 0.5mg IH Q12 - continue on Doxycycline - continue solumedrol 40 IV BID - Supplemental O2 as needed - Monitor breathing - blood culture preliminary results show no growth, f/u with final read. Confusion - likely secondary to xanax - pt had confusion last night, was attempting to bathe in the middle of the night. - Today was AAO x3 but confused about location. When asked where she was she responded "In an apartment". - CN2-12 tested and grossly in tact, UE muscle strength 5/5, DTR +2 in upper extremities bilaterally. - f/u CT head: r/o stroke, TIA Atrial Fibrillation - Hx of A fib. Denies chest pain. - EKG 12/25: shows atrial fibrillation rate approximately [address] and T-wave changes - pt currently rate controled, HR is 69 - Labs: digoxin level on 12/24 was 1.3 (theraputic range 0.8-2.0), continue digoxin 0.25 - Continue Atenolol 50mg QD - Continue Warfarin 3mg - Continue monitoring INR at therapeutic level 2-2.5. CHF - diastolic CHF w last known EF 55-60% (05/2017) - BNP 2990 - continue home lisinopril - continue lasix 20mg BID - lasix 20 IV once - recheck AM electrolytes Hyponatremia - Resolved - Na 135 today - f/u CMP tmrw AM Hypomagnesemia - Resolved, - Mg on 12/26 was 2.0 - Continue Magnesium oxalate 400 PO BID. Anxiety - Continue sertraline - d/c Xanax due to confusion. - will start Ativan PRN for anxiety Tobacco Use Disorder - advised cessation Pt seen with and case reviewed with Dr. Sparrow <Mak Sparrow - Last Filed: 12/30/17 17:03> Objective - Vital Signs/Intake and Output Vital Signs (last 24 hours): Temp Pulse Resp BP Pulse Ox 97.9 F 79 22 139/85 96 12/30/17 14:46 12/30/17 14:46 12/30/17 14:46 12/30/17 14:46 12/30/17 14:46 Intake and Output: 12/30/17 12/30/17 06:59 18:59 Intake Total 660 Balance 660 - Medications Medications: Current Medications Albuterol/Ipratropium (Duoneb 3 Mg/0.5 Mg (3 Ml) Ud) 3 ml IH [id number] [facility] Last Admin: 12/30/17 15:36 Dose: 3 ml Albuterol/Ipratropium (Duoneb 3 Mg/0.5 Mg (3 Ml) Ud) 3 ml IH Q2H PRN PRN Reason: Shortness of Breath Last Admin: 12/27/17 17:57 Dose: 3 ml Arformoterol Tartrate (Brovana) 15 mcg IH [id number] [facility] Last Admin: 12/30/17 07:34 Dose: 15 mcg Atenolol (Tenormin) 50 mg PO DAILY [facility] Last Admin: 12/30/17 10:46 Dose: 50 mg Budesonide (Pulmicort Respules) 0.5 mg IH [id number] [facility] Last Admin: 12/30/17 07:34 Dose: 0.5 mg Digoxin (Lanoxin) 0.25 mg PO 1400 [facility] Last Admin: 12/30/17 13:43 Dose: 0.25 mg Diltiazem HCl (Cardizem Cd) 120 mg PO 2000 [facility] Last Admin: 12/29/17 20:44 Dose: 120 mg Furosemide (Lasix) 20 mg IVP BID [facility] Last Admin: 12/30/17 10:43 Dose: 20 mg Gabapentin (Neurontin) 400 mg PO DAILY [facility]; Protocol Last Admin: 12/30/17 10:45 Dose: 400 mg Lisinopril (Zestril) 10 mg PO DAILY [facility] Last Admin: 12/30/17 10:50 Dose: 10 mg Lorazepam (Ativan) 1 mg PO Q4H PRN; Protocol PRN Reason: Anxiety Last Admin: 12/30/17 00:19 Dose: 1 mg Lorazepam (Ativan) 0.5 mg PO TID [facility]; Protocol Last Admin: 12/30/17 14:02 Dose: 0.5 mg Magnesium Oxide (Mag-Ox) 400 mg PO BID [facility] Last Admin: 12/29/17 10:40 Dose: 400 mg Metoprolol Tartrate (Lopressor) 25 mg PO BID [facility] Last Admin: 12/30/17 10:45 Dose: 25 mg Prednisone (Prednisone Tab) 30 mg PO DAILY [facility] Last Admin: 12/30/17 10:46 Dose: 30 mg Quetiapine Fumarate (Seroquel) 12.5 mg PO HS [facility]; Protocol Sertraline HCl (Zoloft) 250 mg PO DAILY [facility] Last Admin: 12/30/17 10:50 Dose: 250 mg Warfarin Sodium (Coumadin) 3 mg PO 1800 [facility]; Protocol Last Admin: 12/29/17 17:41 Dose: 3 mg - Labs Labs: 12/30/17 06:00 12/30/17 06:00 PT 26.1 SECONDS (9.4-12.5) H 12/26/17 07:00 INR 2.23 12/26/17 07:00 Attending/Attestation - Attestation I have personally seen and examined this patient.: Yes I have fully participated in the care of the patient.: Yes I have reviewed all pertinent clinical information, including history, physical exam and plan: Yes Notes (Text): 12/30/17 17:02 Medical record note made by the resident after discussion with my direction and input after the patient was personally seen and examined by me. I have reviewed the chart and agree that the record accurately reflects by personal performance of the history, physical exam, data review, and medical decision-making, in the course for the patient. I have also personally directed the plan of care.
[2017-12-27] MEDS: Albuterol-Ipratrop 3 mg / 0.5 (3 ml) UD IH PRN (17:57)
[2017-12-28] MEDS: Albuterol-Ipratrop 3 mg / 0.5 (3 ml) UD IH SCH ×6 (04:18→21:32)
[2017-12-28 06:23] LABS: GRAN # 10.05 (1.4-6.5); GRAN % 85.9 % (50.0-68.0); HEMOGLOBIN 14.3 g/dL (12.0-16.0); LYMPH # 0.9 (1.2-3.4); LYMPH % 7.4 % (22.0-35.0); MEAN CELL VOLUME 90.4 fl (80.0-105.0); MEAN CORPUSCULAR HEMOGLOBIN 29.7 pg (25.0-35.0); MEAN CORPUSCULAR HGB CONC 32.9 g/dl (31.0-37.0); MEAN PLATELET VOLUME 8.8 fl (7.0-11.0); MONO # 0.8 (0.1-0.6); MONO % 6.7 % (1.0-6.0); RBC 4.81 10^6/uL (3.5-6.1); RED CELL DISTRIBUTION WIDTH 13.7 % (11.5-14.5); WHITE BLOOD COUNT 11.7 10^3/ul (4.5-11.0)
[2017-12-28] MEDS: Arformoterol 15 mcg/2 ml Inh Sol IH SCH ×2 (07:05→21:32)
[2017-12-28] MEDS: Budesonide 0.5 mg/2 ml Inhal Susp UD IH SCH ×2 (07:06→21:32)
[2017-12-28 07:15] LABS: ALB/GLOB RATIO 1.4 (1.1-1.8); ALBUMIN 3.9 g/dL (3.0-4.8); ALT/SGPT 38 U/L (7-56); AST/SGOT 34 U/L (14-36); BLOOD UREA NITROGEN 28 mg/dL (7-21); CALCIUM 9.4 mg/dL (8.4-10.5); GFR NON-AFRICAN AMERICAN > 60
--- NOTE | 2017-12-28 09:09 | CT ---
Date of service: 12/28/2017 PROCEDURE: CT HEAD WITHOUT CONTRAST. HISTORY: pt with confusion COMPARISON: None available. TECHNIQUE: Axial computed tomography images were obtained through the head/brain without intravenous contrast. Radiation dose: Total exam DLP = 953 mGy-cm. This CT exam was performed using one or more of the following dose reduction techniques: Automated exposure control, adjustment of the mA and/or kV according to patient size, and/or use of iterative reconstruction technique. FINDINGS: HEMORRHAGE: No intracranial hemorrhage. BRAIN: No mass effect or edema. Mild atrophy. Mild chronic microvascular changes. No acute findings VENTRICLES: Unremarkable. No hydrocephalus. CALVARIUM: Unremarkable. PARANASAL SINUSES: Unremarkable as visualized. No significant inflammatory changes. MASTOID AIR CELLS: Unremarkable as visualized. No inflammatory changes. OTHER FINDINGS: None. IMPRESSION: No acute findings
[2017-12-28] MEDS: Magnesium Oxide 400 mg Tab UD PO SCH ×2 (10:06→16:50)
[2017-12-28] MEDS: MethylPREDNISolone 40 mg Vial IVP SCH ×2 (10:07→22:00)
[2017-12-28] MEDS: Digoxin 250 mcg (0.25 mg) Tab PO SCH (15:41)
--- NOTE | 2017-12-28 15:57 | CP.PCM.PN ---
<Jefferson Bender - Last Filed: 12/28/17 15:54> Subjective - Date & Time of Evaluation Date of Evaluation: 12/28/17 Time of Evaluation: 10:00 - Subjective Subjective: Jefferson Bender, PGY-1 Progress Note for Hospitalist Service Pt was evaluated today laying in bed complaining of shortness of breath and anxiety. She is oriented x3 today but is very restless and agitated. Says she feels dirty and wants to take a shower and that she still does not feel well. Spoke with night nurse and they reported that pt was out of bed and did not sleep most of the night, was combative with staff and had to be changed rooms becuase she was disturbing other pt. ROS positive for SOB, productive cough, generalized weakness, sweating. Pt denies fever, chills, headache, chest pain, nausea/vomitting, constipation, diarrhea, chest pain and abdominal pain. Objective - Vital Signs/Intake and Output Vital Signs (last 24 hours): Temp Pulse Resp BP Pulse Ox 97.4 F L 78 20 160/109 H 95 12/28/17 14:00 12/28/17 14:00 12/28/17 14:00 12/28/17 14:00 12/28/17 14:00 Intake and Output: 12/28/17 12/28/17 06:59 18:59 Intake Total 680 Balance 680 - Medications Medications: Current Medications Albuterol/Ipratropium (Duoneb 3 Mg/0.5 Mg (3 Ml) Ud) 3 ml IH [id number] [facility] Last Admin: 12/28/17 11:42 Dose: 3 ml Albuterol/Ipratropium (Duoneb 3 Mg/0.5 Mg (3 Ml) Ud) 3 ml IH Q2H PRN PRN Reason: Shortness of Breath Last Admin: 12/27/17 17:57 Dose: 3 ml Arformoterol Tartrate (Brovana) 15 mcg IH [id number] [facility] Last Admin: 12/28/17 07:05 Dose: 15 mcg Atenolol (Tenormin) 50 mg PO DAILY [facility] Last Admin: 12/28/17 10:06 Dose: 50 mg Budesonide (Pulmicort Respules) 0.5 mg IH [id number] [facility] Last Admin: 12/28/17 07:06 Dose: 0.5 mg Digoxin (Lanoxin) 0.25 mg PO 1400 [facility] Last Admin: 12/28/17 15:41 Dose: 0.25 mg Furosemide (Lasix) 20 mg IVP BID [facility] Last Admin: 12/28/17 10:07 Dose: 20 mg Gabapentin (Neurontin) 400 mg PO DAILY [facility]; Protocol Last Admin: 12/28/17 10:05 Dose: 400 mg Doxycycline Hyclate 100 mg/ (Sodium Chloride) 100 mls @ 100 mls/hr IVPB Q12 [facility]; Protocol Last Admin: 12/28/17 10:05 Dose: 100 mls/hr Lisinopril (Zestril) 2.5 mg PO DAILY [facility] Last Admin: 12/28/17 10:05 Dose: 2.5 mg Lorazepam (Ativan) 1 mg PO Q4H PRN; Protocol PRN Reason: Anxiety Last Admin: 12/28/17 08:11 Dose: 1 mg Magnesium Oxide (Mag-Ox) 400 mg PO BID [facility] Last Admin: 12/28/17 10:06 Dose: 400 mg Methylprednisolone (Solu-Medrol) 20 mg IVP Q12 [facility] Sertraline HCl (Zoloft) 250 mg PO DAILY [facility] Last Admin: 12/28/17 10:06 Dose: 250 mg Warfarin Sodium (Coumadin) 3 mg PO 1800 [facility]; Protocol Last Admin: 12/27/17 17:29 Dose: 3 mg - Labs Labs: 12/28/17 06:00 12/28/17 06:00 PT 26.1 SECONDS (9.4-12.5) H 12/26/17 07:00 INR 2.23 12/26/17 07:00 - Constitutional Appears: No Acute Distress, Confused - Head Exam Head Exam: ATRAUMATIC, NORMOCEPHALIC - Eye Exam Eye Exam: EOMI, Normal appearance, PERRL Pupil Exam: NORMAL ACCOMODATION - ENT Exam ENT Exam: Mucous Membranes Moist, Normal Exam - Neck Exam Neck Exam: Full ROM, Normal Inspection - Respiratory Exam Respiratory Exam: Accessory Muscle Use, Wheezes. absent: Rales, Rhonchi, Stridor Additional comments: b/l expiratory wheezes, improved - Cardiovascular Exam Cardiovascular Exam: IRREGULAR RHYTHM, +S1, +S2. absent: Gallop, Rubs, Murmur - GI/Abdominal Exam GI & Abdominal Exam: Soft, Normal Bowel Sounds. absent: Distended, Rigid, Tenderness - Extremities Exam Extremities Exam: Tenderness. absent: Pedal Edema Additional comments: purpura on RLE - Neurological Exam Neurological Exam: Awake. absent: Alert Neuro motor strength exam: Left Lower Extremity: 5, Right Lower Extremity: 5 Additional comments: AAO x1 to person, then later AAOx2 to person and place - Skin Skin Exam: Diaphoretic. absent: Cyanosis, Pallor Assessment and Plan - Assessment and Plan (Free Text) Assessment: Assessment: Pt is a 72 year old female with PMH of A fib, COPD, CHF, Anxiety, presenting with SOB and productive cough. Pt will be treated for probable COPD exacerbation and maintenance of A fib. Plan: COPD exacerbation - Hx of COPD since 2016, reports 2PPD tobacco x 58 years with current tobacco use. - Wheezes much improved since yesterday. Wheezing heard in bibasilar posterior lung kim. - CXR in ED 12/25 was negative for acute disease. - CXR on 12/26 was negative for acute disease - decreased solumedrol to 20 mg IV q12 - continue on duonebs 3ml q4 scheduled - continue duonebs q2h PRN - continue Arformoterol 15mcg IH q12 - continue budesonide 0.5mg IH Q12 - continue on Doxycycline - continue lasix 20 IVP BID - Supplemental O2 as needed - Monitor breathing - blood culture preliminary results show no growth, f/u with final read. - f/u with PT eval to see if pt is able to tolerate ambulation without supplemental O2. Try to wean off. Confusion - resolved - was likley due to xanax, d/c the xanax and started Ativan 1mg q4 PRN - CT head 12/27 negative - Pt AAO x3 this morning - CN2-12 tested and grossly in tact, UE muscle strength 5/5, DTR +2 in upper extremities bilaterally. - continue to monitor pts mental status Atrial Fibrillation - Hx of A fib. Denies chest pain. - EKG 12/25: shows atrial fibrillation rate approximately [address] and T-wave changes - pt currently rate controled, HR is 89 - Labs: digoxin level on 12/24 was 1.3 (theraputic range 0.8-2.0), continue digoxin 0.25 - Continue Atenolol 50mg QD - Continue Warfarin 3mg - Continue monitoring INR at therapeutic level 2-2.5. CHF - diastolic CHF w last known EF 55-60% (05/2017) - BNP on 12/26 was 2990 - continue home lisinopril - continue lasix 20 IVP BID - recheck AM electrolytes Hyponatremia - Resolved - Na 134 today - continue to monitor AM CMP Hypomagnesemia - Resolved, - Mg on 12/28 was 2.2 - Continue Magnesium oxalate 400 PO BID. Anxiety - Pt very agitated over night per nursing staff - Continue sertraline - continue start Ativan PRN for anxiety - psychiatry consulted, Dr. Shaila springer appreciated Tobacco Use Disorder - advised cessation Patient seen , case reviewed, and plan discussed with Dr. Sparrow. Jefferson Bender, PGY-1 <Mak Sparrow - Last Filed: 12/30/17 17:02> Objective - Vital Signs/Intake and Output Vital Signs (last 24 hours): Temp Pulse Resp BP Pulse Ox 97.9 F 79 22 139/85 96 12/30/17 14:46 12/30/17 14:46 12/30/17 14:46 12/30/17 14:46 12/30/17 14:46 Intake and Output: 12/30/17 12/30/17 06:59 18:59 Intake Total 660 Balance 660 - Medications Medications: Current Medications Albuterol/Ipratropium (Duoneb 3 Mg/0.5 Mg (3 Ml) Ud) 3 ml IH [id number] [facility] Last Admin: 12/30/17 15:36 Dose: 3 ml Albuterol/Ipratropium (Duoneb 3 Mg/0.5 Mg (3 Ml) Ud) 3 ml IH Q2H PRN PRN Reason: Shortness of Breath Last Admin: 12/27/17 17:57 Dose: 3 ml Arformoterol Tartrate (Brovana) 15 mcg IH [id number] [facility] Last Admin: 12/30/17 07:34 Dose: 15 mcg Atenolol (Tenormin) 50 mg PO DAILY [facility] Last Admin: 12/30/17 10:46 Dose: 50 mg Budesonide (Pulmicort Respules) 0.5 mg IH [id number] [facility] Last Admin: 12/30/17 07:34 Dose: 0.5 mg Digoxin (Lanoxin) 0.25 mg PO 1400 [facility] Last Admin: 12/30/17 13:43 Dose: 0.25 mg Diltiazem HCl (Cardizem Cd) 120 mg PO 2000 [facility] Last Admin: 12/29/17 20:44 Dose: 120 mg Furosemide (Lasix) 20 mg IVP BID [facility] Last Admin: 12/30/17 10:43 Dose: 20 mg Gabapentin (Neurontin) 400 mg PO DAILY [facility]; Protocol Last Admin: 12/30/17 10:45 Dose: 400 mg Lisinopril (Zestril) 10 mg PO DAILY [facility] Last Admin: 12/30/17 10:50 Dose: 10 mg Lorazepam (Ativan) 1 mg PO Q4H PRN; Protocol PRN Reason: Anxiety Last Admin: 12/30/17 00:19 Dose: 1 mg Lorazepam (Ativan) 0.5 mg PO TID [facility]; Protocol Last Admin: 12/30/17 14:02 Dose: 0.5 mg Magnesium Oxide (Mag-Ox) 400 mg PO BID [facility] Last Admin: 12/29/17 10:40 Dose: 400 mg Metoprolol Tartrate (Lopressor) 25 mg PO BID [facility] Last Admin: 12/30/17 10:45 Dose: 25 mg Prednisone (Prednisone Tab) 30 mg PO DAILY [facility] Last Admin: 12/30/17 10:46 Dose: 30 mg Quetiapine Fumarate (Seroquel) 12.5 mg PO HS [facility]; Protocol Sertraline HCl (Zoloft) 250 mg PO DAILY [facility] Last Admin: 12/30/17 10:50 Dose: 250 mg Warfarin Sodium (Coumadin) 3 mg PO 1800 [facility]; Protocol Last Admin: 12/29/17 17:41 Dose: 3 mg - Labs Labs: 12/30/17 06:00 12/30/17 06:00 PT 26.1 SECONDS (9.4-12.5) H 12/26/17 07:00 INR 2.23 12/26/17 07:00 Attending/Attestation - Attestation I have personally seen and examined this patient.: Yes I have fully participated in the care of the patient.: Yes I have reviewed all pertinent clinical information, including history, physical exam and plan: Yes Notes (Text): 12/30/17 17:02 Medical record note made by the resident after discussion with my direction and input after the patient was personally seen and examined by me. I have reviewed the chart and agree that the record accurately reflects by personal performance of the history, physical exam, data review, and medical decision-making, in the course for the patient. I have also personally directed the plan of care.
[2017-12-29] MEDS: Albuterol-Ipratrop 3 mg / 0.5 (3 ml) UD IH SCH ×6 (01:38→20:01)
[2017-12-29 06:27] LABS: EOS % 0.1 % (1.5-5.0); GRAN # 9.3 (1.4-6.5); GRAN % 76.8 % (50.0-68.0); HEMOGLOBIN 14.6 g/dL (12.0-16.0); LYMPH # 1.3 (1.2-3.4); LYMPH % 10.9 % (22.0-35.0); MEAN CELL VOLUME 90.9 fl (80.0-105.0); MEAN CORPUSCULAR HEMOGLOBIN 29.6 pg (25.0-35.0); MEAN CORPUSCULAR HGB CONC 32.6 g/dl (31.0-37.0); MEAN PLATELET VOLUME 8.8 fl (7.0-11.0); MONO # 1.5 (0.1-0.6); MONO % 12.2 % (1.0-6.0); RBC 4.93 10^6/uL (3.5-6.1); RED CELL DISTRIBUTION WIDTH 13.7 % (11.5-14.5); WHITE BLOOD COUNT 12.1 10^3/ul (4.5-11.0)
[2017-12-29 06:43] LABS: ALB/GLOB RATIO 1.4 (1.1-1.8); ALBUMIN 3.9 g/dL (3.0-4.8); ALT/SGPT 39 U/L (7-56); AST/SGOT 34 U/L (14-36); BLOOD UREA NITROGEN 26 mg/dL (7-21); CALCIUM 9.3 mg/dL (8.4-10.5); GFR NON-AFRICAN AMERICAN > 60
[2017-12-29] MEDS: Budesonide 0.5 mg/2 ml Inhal Susp UD IH SCH ×2 (07:51→20:01)
[2017-12-29] MEDS: Arformoterol 15 mcg/2 ml Inh Sol IH SCH ×2 (07:52→20:01)
[2017-12-29] MEDS: Magnesium Oxide 400 mg Tab UD PO SCH (10:40)
[2017-12-29] MEDS: MethylPREDNISolone 40 mg Vial IVP SCH (10:41)
[2017-12-29] MEDS: Digoxin 250 mcg (0.25 mg) Tab PO SCH (13:53)
--- NOTE | 2017-12-29 14:06 | CP.PCM.PN ---
<Josue Hall - Last Filed: 12/29/17 14:02> Subjective - Date & Time of Evaluation Date of Evaluation: 12/29/17 Time of Evaluation: 09:15 - Subjective Subjective: PGY-1 Medicine Progress Note for Dr. Sparrow's service Patient seen and examined at bedside. Patient's oxygen was discontinued to assess oxygen saturation at rest. Patient requires 3L of [place] to maintain 89%. Overnight patient was contacting 911 stating hospital was keeping her against her will. Patient denies chest pain, fevers, chills, n/v, constipation or diarrhea, dysuria. Objective - Vital Signs/Intake and Output Vital Signs (last 24 hours): Temp Pulse Resp BP Pulse Ox 98.6 F 92 H 16 163/116 H 96 12/29/17 08:02 12/29/17 10:42 12/29/17 08:02 12/29/17 13:49 12/29/17 08:02 Intake and Output: 12/29/17 12/29/17 06:59 18:59 Intake Total 120 Balance 120 - Medications Medications: Current Medications Albuterol/Ipratropium (Duoneb 3 Mg/0.5 Mg (3 Ml) Ud) 3 ml IH [id number] [facility] Last Admin: 12/29/17 12:01 Dose: 3 ml Albuterol/Ipratropium (Duoneb 3 Mg/0.5 Mg (3 Ml) Ud) 3 ml IH Q2H PRN PRN Reason: Shortness of Breath Last Admin: 12/27/17 17:57 Dose: 3 ml Arformoterol Tartrate (Brovana) 15 mcg IH [id number] [facility] Last Admin: 12/29/17 07:52 Dose: 15 mcg Atenolol (Tenormin) 50 mg PO DAILY [facility] Last Admin: 12/29/17 10:41 Dose: 50 mg Budesonide (Pulmicort Respules) 0.5 mg IH [id number] [facility] Last Admin: 12/29/17 07:51 Dose: 0.5 mg Digoxin (Lanoxin) 0.25 mg PO 1400 [facility] Last Admin: 12/29/17 13:53 Dose: 0.25 mg Diltiazem HCl (Cardizem Cd) 120 mg PO 2000 [facility] Furosemide (Lasix) 20 mg IVP BID [facility] Last Admin: 12/29/17 13:49 Dose: 20 mg Gabapentin (Neurontin) 400 mg PO DAILY [facility]; Protocol Last Admin: 12/29/17 10:40 Dose: 400 mg Lisinopril (Zestril) 10 mg PO DAILY [facility] Lorazepam (Ativan) 1 mg PO Q4H PRN; Protocol PRN Reason: Anxiety Last Admin: 12/28/17 21:58 Dose: 1 mg Magnesium Oxide (Mag-Ox) 400 mg PO BID [facility] Last Admin: 12/29/17 10:40 Dose: 400 mg Metoprolol Tartrate (Lopressor) 25 mg PO BID [facility] Prednisone (Prednisone Tab) 30 mg PO DAILY [facility] Sertraline HCl (Zoloft) 250 mg PO DAILY [facility] Last Admin: 12/29/17 10:43 Dose: 250 mg Warfarin Sodium (Coumadin) 3 mg PO 1800 [facility]; Protocol Last Admin: 12/28/17 16:52 Dose: 3 mg - Labs Labs: 12/29/17 05:00 12/29/17 05:00 PT 26.1 SECONDS (9.4-12.5) H 12/26/17 07:00 INR 2.23 12/26/17 07:00 - Additional Findings Additional findings: - Constitutional Appears: No Acute Distress, Confused - Head Exam Head Exam: ATRAUMATIC, NORMOCEPHALIC - Eye Exam Eye Exam: EOMI, Normal appearance, PERRL Pupil Exam: NORMAL ACCOMODATION - ENT Exam ENT Exam: Mucous Membranes Moist, Normal Exam - Neck Exam Neck Exam: Full ROM, Normal Inspection - Respiratory Exam Respiratory Exam: Accessory Muscle Use, Wheezes. absent: Rales, Rhonchi, Stridor Additional comments: b/l expiratory wheezes, improved - Cardiovascular Exam Cardiovascular Exam: IRREGULAR RHYTHM, +S1, +S2. absent: Gallop, Rubs, Murmur - GI/Abdominal Exam GI & Abdominal Exam: Soft, Normal Bowel Sounds. absent: Distended, Rigid, Tenderness - Extremities Exam Extremities Exam: Normal Inspection. absent: Pedal Edema - Neurological Exam Neurological Exam: Awake, Alert Neuro motor strength exam: Left Lower Extremity: 5, Right Lower Extremity: 5 Additional comments: AAOx3 - Skin Skin Exam: Warm, Intact Assessment and Plan - Assessment and Plan (Free Text) Assessment: Pt is a 72 year old female with PMH of A fib, COPD, CHF, Anxiety, presenting with SOB and productive cough. Pt will be treated for probable COPD exacerbation and maintenance of A fib. Plan: CHF Diastolic CHF w last known EF 55-60% (05/2017) BNP on 12/26 was 2990 Lisinopril 10mg po daily; Lasix 20 po BID One time dose lasix 40 IV for increased fluid in lungs. COPD exacerbation CXR in ED 12/25 was negative for acute disease. CXR on 12/26 was negative for acute disease procalcitonin <0.05 blood cx show no growth O2 on 3L nasal cannula to maintain O2 sat >88%; May need home O2 s/p ambulatory pulse ox with PT Solumedrol po 30mg daily continue on duonebs 3ml q4 scheduled continue duonebs q2h PRN continue Arformoterol 15mcg IH q12 continue budesonide 0.5mg IH Q12 Confusion likely due to decreased oxygen saturation Psych consulted- Dr Sidhu- recommendations appreciated Patient AAO x [address] [place] [address] head 12/27 negative Atrial Fibrillation Hx of A fib. Denies chest pain. EKG 12/25: shows atrial fibrillation rate approximately [address] and T-wave changes pt currently rate controlled, HR is 92 Labs: digoxin level on 12/24 was 1.3 (therapeutic range 0.8-2.0), continue digoxin 0.25 Continue Atenolol 50mg QD Continue Warfarin 3mg INR therapeutic Hypomagnesemia Resolved Hold magnesium oxide today Mag level in AM Anxiety Psych consulted- recommendations appreciated Sertaline 250mg po daily Ativan 1gm PRN for anxiety Tobacco Use Disorder Educations patient on cessation Medical Management discussed with Dr. Andrews Hall PGY-1 <Mak Sparrow - Last Filed: 12/30/17 17:01> Objective - Vital Signs/Intake and Output Vital Signs (last 24 hours): Temp Pulse Resp BP Pulse Ox 97.9 F 79 22 139/85 96 12/30/17 14:46 12/30/17 14:46 12/30/17 14:46 12/30/17 14:46 12/30/17 14:46 Intake and Output: 12/30/17 12/30/17 06:59 18:59 Intake Total 660 Balance 660 - Medications Medications: Current Medications Albuterol/Ipratropium (Duoneb 3 Mg/0.5 Mg (3 Ml) Ud) 3 ml IH [id number] [facility] Last Admin: 12/30/17 15:36 Dose: 3 ml Albuterol/Ipratropium (Duoneb 3 Mg/0.5 Mg (3 Ml) Ud) 3 ml IH Q2H PRN PRN Reason: Shortness of Breath Last Admin: 12/27/17 17:57 Dose: 3 ml Arformoterol Tartrate (Brovana) 15 mcg IH [id number] [facility] Last Admin: 12/30/17 07:34 Dose: 15 mcg Atenolol (Tenormin) 50 mg PO DAILY [facility] Last Admin: 12/30/17 10:46 Dose: 50 mg Budesonide (Pulmicort Respules) 0.5 mg IH [id number] [facility] Last Admin: 12/30/17 07:34 Dose: 0.5 mg Digoxin (Lanoxin) 0.25 mg PO 1400 [facility] Last Admin: 12/30/17 13:43 Dose: 0.25 mg Diltiazem HCl (Cardizem Cd) 120 mg PO 2000 [facility] Last Admin: 12/29/17 20:44 Dose: 120 mg Furosemide (Lasix) 20 mg IVP BID [facility] Last Admin: 12/30/17 10:43 Dose: 20 mg Gabapentin (Neurontin) 400 mg PO DAILY [facility]; Protocol Last Admin: 12/30/17 10:45 Dose: 400 mg Lisinopril (Zestril) 10 mg PO DAILY [facility] Last Admin: 12/30/17 10:50 Dose: 10 mg Lorazepam (Ativan) 1 mg PO Q4H PRN; Protocol PRN Reason: Anxiety Last Admin: 12/30/17 00:19 Dose: 1 mg Lorazepam (Ativan) 0.5 mg PO TID [facility]; Protocol Last Admin: 12/30/17 14:02 Dose: 0.5 mg Magnesium Oxide (Mag-Ox) 400 mg PO BID [facility] Last Admin: 12/29/17 10:40 Dose: 400 mg Metoprolol Tartrate (Lopressor) 25 mg PO BID [facility] Last Admin: 12/30/17 10:45 Dose: 25 mg Prednisone (Prednisone Tab) 30 mg PO DAILY [facility] Last Admin: 12/30/17 10:46 Dose: 30 mg Quetiapine Fumarate (Seroquel) 12.5 mg PO HS [facility]; Protocol Sertraline HCl (Zoloft) 250 mg PO DAILY [facility] Last Admin: 12/30/17 10:50 Dose: 250 mg Warfarin Sodium (Coumadin) 3 mg PO 1800 [facility]; Protocol Last Admin: 12/29/17 17:41 Dose: 3 mg - Labs Labs: 12/30/17 06:00 12/30/17 06:00 PT 26.1 SECONDS (9.4-12.5) H 12/26/17 07:00 INR 2.23 12/26/17 07:00 Attending/Attestation - Attestation I have personally seen and examined this patient.: Yes I have fully participated in the care of the patient.: Yes I have reviewed all pertinent clinical information, including history, physical exam and plan: Yes Notes (Text): 12/30/17 16:54 Medical record note made by the resident after discussion with my direction and input after the patient was personally seen and examined by me. I have reviewed the chart and agree that the record accurately reflects by personal performance of the history, physical exam, data review, and medical decision-making, in the course for the patient. I have also personally directed the plan of care. 72 year old female with PMH of A fib on anticoagulation with Wrafarin,COPD, diastolic CHF, Anxiety, presenting with SOB and productive cough due to COPD exacerbation, also has mild acute on chronic diastolic CHF.Patient wheezing is improving, we will decrease of Prednisone to 30 mg PO daily.Patient has basal crackle, we will give extra lasix this morning.Patient is hypoxic on room air , requiring 2 -3 L of nasal canula, We will monitor, may need home oxygen prior to discharge. Blood pressure is running high as she was not getting home Metoprolol and Cardizem, has been restarted, Lisinopril dose is increased to 10 mg po daily.We will monitor and adjust medications. AF, Rate is controlled, on anticoagulation with warfarin, INR 12/26/17 was therapeutic, we will check INR in the morning. Hyponatremia is improved. Patient is very anxious, has intermittent confusion, CT head is negative. Psy chiatry is consulted.Steroid could be contributing. Prognosis is guarded.
[2017-12-29] MEDS ORDERED: Bupivacaine 0.5% 50 ML IJ ONE (19:21)
[2017-12-29] MEDS ORDERED: Lidocaine 2% PF (10 ml) Amp ONE (19:21)
[2017-12-29] MEDS: diltiaZEM 120 mg/24 Hours CD Cap PO SCH (20:44)
--- NOTE | 2017-12-29 23:46 | CON ---
DATE: 12/29/2017 HISTORY OF PRESENT ILLNESS: In short, the patient is 72-year-old female, reported history of COPD. The patient is active smoker. The patient was admitted on the medical site for COPD exacerbation. Before this admission, the patient signed herself against medical advice from the emergency room. The patient came back with worsening of her symptoms. This underwriter is very familiar with this patient from the consultation services last admission. The patient signed herself out of the hospital. The patient was seen and examined today. The patient presented to be alert, anxious, difficulty to breathe. Patient reported her mood as not good. Affect was constricted. The patient denied thoughts of harming herself or others. Denied hearing voices, denied seeing things. The patient lost her about couple of years ago. Since that time, the patient was feeling more depressed than usual. Vital signs: Reviewed. Temperature is 98.6, pulse is 92, blood pressure 163/116. Medications reviewed. The patient is on DuoNeb, Brovana, atenolol, Pulmicort, digoxin, Cardizem, Lasix, Neurontin, Zestril, Ativan will be started 0.5 mg three times a day. The patient also is on Zoloft 250 mg daily. This underwriter is not sure who was prescribing that medication to her. The patient also is on prednisone, magnesium oxide, Lopressor and Coumadin. Labs reviewed. WBC cells 12.1. Coagulation reviewed. Chemistry reviewed. MENTAL STATUS EXAM: The patient appears to be alert and anxious. Intermittent eye contact. The patient was not able to complete the sentences. Mood described as depressed and anxious. Affect was constricted. Thought process goal directed. Thought content, the patient denied visual, auditory, tactile hallucinations. Denied paranoid ideation. The patient denied thoughts of harming herself or others. Denied intent or plan. The patient denied psychotic symptoms. Does not present to be psychotic. Insight and judgment seems to be limited. Impulses are well controlled. IMPRESSION: Rule out anxiety disorder due to general medical condition. The patient has chronic obstructive pulmonary disease. Rule out adjustment disorder. Rule out major depressive disorder. Rule out mood disorder due to general medical condition. PLAN: Continue current management. Continue current medications. Ativan will be started at 0.5 mg three times a day, p.r.n. orders also in the computer. Continue Zoloft. We will follow up and advise accordingly. Thank you very much for letting me participate in the care of your patient. Shaila Mattson MD
[2017-12-30] MEDS: Albuterol-Ipratrop 3 mg / 0.5 (3 ml) UD IH SCH ×7 (00:27→20:56)
[2017-12-30 07:20] LABS: BASO # 0.01 K/mm3 (0.0-2.0); BASO % 0.1 % (0.0-3.0); EOS % 0.1 % (1.5-5.0); GRAN # 10.74 (1.4-6.5); GRAN % 76.3 % (50.0-68.0); HEMOGLOBIN 15.5 g/dL (12.0-16.0); LYMPH # 1.7 (1.2-3.4); LYMPH % 11.9 % (22.0-35.0); MEAN CELL VOLUME 89.3 fl (80.0-105.0); MEAN CORPUSCULAR HEMOGLOBIN 29.7 pg (25.0-35.0); MEAN CORPUSCULAR HGB CONC 33.3 g/dl (31.0-37.0); MEAN PLATELET VOLUME 9.1 fl (7.0-11.0); MONO # 1.6 (0.1-0.6); MONO % 11.6 % (1.0-6.0); RBC 5.22 10^6/uL (3.5-6.1); RED CELL DISTRIBUTION WIDTH 13.4 % (11.5-14.5); WHITE BLOOD COUNT 14.1 10^3/ul (4.5-11.0)
[2017-12-30] MEDS: Arformoterol 15 mcg/2 ml Inh Sol IH SCH ×2 (07:34→20:56)
[2017-12-30] MEDS: Budesonide 0.5 mg/2 ml Inhal Susp UD IH SCH ×2 (07:34→20:56)
[2017-12-30 10:55] LABS: BLOOD UREA NITROGEN 33 mg/dL (7-21); GFR NON-AFRICAN AMERICAN > 60
[2017-12-30 10:56] LABS: ALB/GLOB RATIO 1.5 (1.1-1.8); ALBUMIN 4.2 g/dL (3.0-4.8); ALT/SGPT 35 U/L (7-56); AST/SGOT 32 U/L (14-36); CALCIUM 9.7 mg/dL (8.4-10.5)
[2017-12-30] MEDS: Digoxin 250 mcg (0.25 mg) Tab PO SCH (13:43)
[2017-12-30 17:41] LABS: INR 3.35; PARTIAL THROMBOPLASTIN TIME 52.1 Seconds (25.1-36.5); PROTHROMBIN TIME 39.2 SECONDS (9.4-12.5)
--- NOTE | 2017-12-30 19:24 | CP.PCM.PN ---
<Josue Hall - Last Filed: 12/30/17 19:19> Subjective - Date & Time of Evaluation Date of Evaluation: 12/30/17 Time of Evaluation: 11:45 - Subjective Subjective: PGY-1 Medicine Progress Note for Dr. Sparrow's service Patient seen and examined at bedside. Patient AAOx2 at times. Patient has moments of confusion and lucidity. Oxygen saturation at goal of >89%. Patient offers no acute complaints. Patient denies chest pain, sob, n/v, constipation or diarrhea, fevers and chills. Objective - Vital Signs/Intake and Output Vital Signs (last 24 hours): Temp Pulse Resp BP Pulse Ox 97.9 F 79 22 139/85 96 12/30/17 14:46 12/30/17 18:10 12/30/17 14:46 12/30/17 18:10 12/30/17 14:46 Intake and Output: 12/30/17 12/31/17 18:59 06:59 Intake Total 360 Balance 360 - Medications Medications: Current Medications Albuterol/Ipratropium (Duoneb 3 Mg/0.5 Mg (3 Ml) Ud) 3 ml IH [id number] [facility] Last Admin: 12/30/17 15:36 Dose: 3 ml Albuterol/Ipratropium (Duoneb 3 Mg/0.5 Mg (3 Ml) Ud) 3 ml IH Q2H PRN PRN Reason: Shortness of Breath Last Admin: 12/27/17 17:57 Dose: 3 ml Arformoterol Tartrate (Brovana) 15 mcg IH [id number] [facility] Last Admin: 12/30/17 07:34 Dose: 15 mcg Atenolol (Tenormin) 50 mg PO DAILY [facility] Last Admin: 12/30/17 10:46 Dose: 50 mg Budesonide (Pulmicort Respules) 0.5 mg IH [id number] [facility] Last Admin: 12/30/17 07:34 Dose: 0.5 mg Digoxin (Lanoxin) 0.25 mg PO 1400 [facility] Last Admin: 12/30/17 13:43 Dose: 0.25 mg Diltiazem HCl (Cardizem Cd) 120 mg PO 2000 [facility] Last Admin: 12/29/17 20:44 Dose: 120 mg Furosemide (Lasix) 20 mg IVP BID [facility] Last Admin: 12/30/17 18:03 Dose: 20 mg Gabapentin (Neurontin) 400 mg PO DAILY [facility]; Protocol Last Admin: 12/30/17 10:45 Dose: 400 mg Lisinopril (Zestril) 10 mg PO DAILY [facility] Last Admin: 12/30/17 10:50 Dose: 10 mg Lorazepam (Ativan) 1 mg PO Q4H PRN; Protocol PRN Reason: Anxiety Last Admin: 12/30/17 00:19 Dose: 1 mg Lorazepam (Ativan) 0.5 mg PO TID [facility]; Protocol Last Admin: 12/30/17 18:07 Dose: 0.5 mg Magnesium Oxide (Mag-Ox) 400 mg PO BID [facility] Last Admin: 12/29/17 10:40 Dose: 400 mg Metoprolol Tartrate (Lopressor) 25 mg PO BID [facility] Last Admin: 12/30/17 18:10 Dose: 25 mg Prednisone (Prednisone Tab) 30 mg PO DAILY [facility] Last Admin: 12/30/17 10:46 Dose: 30 mg Quetiapine Fumarate (Seroquel) 12.5 mg PO HS [facility]; Protocol Sertraline HCl (Zoloft) 250 mg PO DAILY [facility] Last Admin: 12/30/17 10:50 Dose: 250 mg Warfarin Sodium (Coumadin) 3 mg PO 1800 [facility]; Protocol Last Admin: 12/30/17 18:00 Dose: Not Given - Labs Labs: 12/30/17 06:00 12/30/17 06:00 PT 39.2 SECONDS (9.4-12.5) H 12/30/17 17:23 INR 3.35 12/30/17 17:23 APTT 52.1 Seconds (25.1-36.5) H 12/30/17 17:23 - Additional Findings Additional findings: - Constitutional Appears: No Acute Distress, Confused - Head Exam Head Exam: ATRAUMATIC, NORMOCEPHALIC - Eye Exam Eye Exam: EOMI, Normal appearance, PERRL Pupil Exam: NORMAL ACCOMODATION - ENT Exam ENT Exam: Mucous Membranes Moist, Normal Exam - Neck Exam Neck Exam: Full ROM, Normal Inspection - Respiratory Exam Respiratory Exam: Accessory Muscle Use, Wheezes. absent: Rales, Rhonchi, Stridor Additional comments: b/l expiratory wheezes, improved - Cardiovascular Exam Cardiovascular Exam: IRREGULAR RHYTHM, +S1, +S2. absent: Gallop, Rubs, Murmur - GI/Abdominal Exam GI & Abdominal Exam: Soft, Normal Bowel Sounds. absent: Distended, Rigid, Tenderness - Extremities Exam Extremities Exam: Normal Inspection. absent: Pedal Edema - Neurological Exam Neurological Exam: Awake, Alert Neuro motor strength exam: Left Lower Extremity: 5, Right Lower Extremity: 5 Additional comments: AAOx2 - Skin Skin Exam: Warm, Intact Assessment and Plan - Assessment and Plan (Free Text) Assessment: Pt is a 72 year old female with PMH of A fib, COPD, CHF, Anxiety, presenting with SOB and productive cough. Pt will be treated for probable COPD exacerbation and maintenance of A fib. Patient has moments of confusion. Plan: CHF Diastolic CHF w last known EF 55-60% (05/2017) BNP on 12/26 was 2990 Lisinopril 10mg po daily; Lasix 20 po BID COPD exacerbation CXR in ED 12/25 was negative for acute disease. CXR on 12/26 was negative for acute disease procalcitonin <0.05 blood cx show no growth O2 on 3L nasal cannula to maintain O2 sat >88%; May need home O2 s/p ambulatory pulse ox with PT Solumedrol po 20mg daily duonebs 3ml q4 scheduled duonebs q2h PRN Arformoterol 15mcg IH q12 Budesonide 0.5mg IH Q12 Confusion likely due to decreased oxygen saturation Psych consulted- Dr Sidhu- recommendations appreciated Patient AAO x [address] head 12/27 negative Atrial Fibrillation Hx of A fib. Denies chest pain. EKG 12/25: shows atrial fibrillation rate approximately [address] and T-wave changes Digoxin 0.25 Continue Atenolol 50mg daily; Cardizem 120mg po wil Held warfarin in setting of elevated INR Anxiety Psych consulted- recommendations as below Sertaline 250mg po daily Ativan 1mg po q4h prn Seroquel 12.5mg po HS Tobacco Use Disorder Educations patient on cessation Medical Management discussed with Dr. Andrews Hall PGY-1 <Mak Sparrow - Last Filed: 01/07/18 08:15> Objective - Vital Signs/Intake and Output Vital Signs (last 24 hours): Temp Pulse Resp BP Pulse Ox 98.4 F 81 20 121/86 93 L 01/04/18 14:00 01/04/18 21:39 01/04/18 14:00 01/04/18 21:39 01/04/18 14:00 - Labs Labs: 01/04/18 09:30 01/04/18 09:30 PT 39.2 SECONDS (9.4-12.5) H 01/04/18 09:30 INR 3.33 01/04/18 09:30 APTT 43.6 Seconds (25.1-36.5) H 01/04/18 09:30 Attending/Attestation - Attestation I have personally seen and examined this patient.: Yes I have fully participated in the care of the patient.: Yes I have reviewed all pertinent clinical information, including history, physical exam and plan: Yes Notes (Text): 01/07/18 08:14 Medical record note made by the resident after discussion with my direction and input after the patient was personally seen and examined by me. I have reviewed the chart and agree that the record accurately reflects by personal performance of the history, physical exam, data review, and medical decision-making, in the course for the patient. I have also personally directed the plan of care. 72 year old female with PMH of A fib on anticoagulation with Warfarin,COPD, diastolic CHF, Anxiety, presenting with SOB and productive cough due to COPD exacerbation, also has mild acute on chronic diastolic CHF.Patient is very anxious, has intermittent confusion, CT head is negative. Psychiatry is flowing.COPD is improved, steroid dose is decreased to Prednisone 20 mg daily, could be contributing to confusion. Patientis still hypoxic with ambulation, may need home oxygen prior to discharge.
--- NOTE | 2017-12-30 20:00 | PN ---
DATE: 12/30/2017 SUBJECTIVE: In short, the patient is a 72-year-old female. Psych consult was initiated for anxiety and the patient has history of depression. This keno writer is very familiar with this patient from the previous consultation services. Ativan was started yesterday for anxiety. The patient was seen and examined. As per report, the patient was very confused over nighttime. 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 The patient was absolutely confused but no aggression or agitation. The patient does not remember that she was confused yesterday. The patient reported that her breathing is not better. The patient reported that she feels sick. The patient reports that her Zoloft prescribed by Dr. Mendez in the past. VITAL SIGNS: Reviewed. Blood pressure is very elevated 162/116, pulse is 87, temperature 98.2, oxygen saturation is 97. MEDICATIONS: Reviewed. This keno writer will add on Seroquel 12.5 mg at the nighttime for confusion. LABORATORY DATA: Reviewed. WBC cells 14.1. MENTAL STATUS EXAMINATION: The patient appears to be weak, depressed, flat affect, breathing heavily. The patient does not look good from the physical standpoint. Mood described as depressed. Affect was constricted. Thought process, goal directed. Thought content: As per nursing report, the patient has episodes of confusion. Insight and judgment seem to be limited. Impulses are unpredictable. IMPRESSION: The patient is in delirium stage. The patient has history of major depressive disorder, adjustment disorder. The patient also has anxiety and depression due to general medical condition. PLAN: Ativan was started, scheduled 0.5 mg three times a day, Seroquel 12.5 mg at the nighttime. Zoloft will be continued. This keno writer will follow up on this patient on Sunday. Should you have any questions, give me a call back. Thank you very much for letting me to participate in the care of your patient. Shaila Mattson MD
[2017-12-30] MEDS: diltiaZEM 120 mg/24 Hours CD Cap PO SCH (20:31)
[2017-12-31] MEDS: Albuterol-Ipratrop 3 mg / 0.5 (3 ml) UD IH SCH ×5 (03:05→20:55)
[2017-12-31] MEDS: Arformoterol 15 mcg/2 ml Inh Sol IH SCH ×2 (07:11→20:54)
[2017-12-31] MEDS: Budesonide 0.5 mg/2 ml Inhal Susp UD IH SCH ×2 (07:12→20:55)
[2017-12-31 08:54] LABS: BASO # 0.01 K/mm3 (0.0-2.0); BASO % 0.1 % (0.0-3.0); GRAN # 13.46 (1.4-6.5); GRAN % 79.1 % (50.0-68.0); HEMOGLOBIN 15.2 g/dL (12.0-16.0); LYMPH # 1.6 (1.2-3.4); LYMPH % 9.5 % (22.0-35.0); MEAN CELL VOLUME 90.2 fl (80.0-105.0); MEAN CORPUSCULAR HEMOGLOBIN 29.7 pg (25.0-35.0); MEAN PLATELET VOLUME 9.2 fl (7.0-11.0); MONO # 1.9 (0.1-0.6); MONO % 11.3 % (1.0-6.0); RBC 5.11 10^6/uL (3.5-6.1); RED CELL DISTRIBUTION WIDTH 13.5 % (11.5-14.5)
[2017-12-31 09:02] LABS: INR 2.69; PARTIAL THROMBOPLASTIN TIME 43.5 Seconds (25.1-36.5); PROTHROMBIN TIME 31.6 SECONDS (9.4-12.5)
[2017-12-31 09:15] LABS: ALB/GLOB RATIO 1.6 (1.1-1.8); ALBUMIN 4.2 g/dL (3.0-4.8); ALT/SGPT 43 U/L (7-56); AST/SGOT 34 U/L (14-36); BLOOD UREA NITROGEN 42 mg/dL (7-21); CALCIUM 9.9 mg/dL (8.4-10.5); GFR NON-AFRICAN AMERICAN > 60
[2017-12-31 10:55] LABS: ARTERIAL BLOOD GAS HCO3 35.9 mmol/L (21-28); ARTERIAL BLOOD GAS O2 SAT 94.9 % (95-98); ARTERIAL BLOOD GAS PCO2 46 mm/Hg (35-45); ARTERIAL BLOOD GAS TCO2 37.3 mmol.L (22-28)
[2017-12-31] MEDS: Digoxin 250 mcg (0.25 mg) Tab PO SCH (13:55)
--- NOTE | 2017-12-31 15:08 | CP.PCM.PN ---
Subjective - Date & Time of Evaluation Date of Evaluation: 12/31/17 Time of Evaluation: 11:30 - Subjective Subjective: PGY-1 Medicine Progress Note for Dr. Dow's service Patient seen and examined at bedside. Patient is AAOX3 at times. She does have some confusion, AAO x2 at times. Oxygen saturation goal of 89%. Patient states she is still short of breath and has some cough with no sputum production. She otherwise denies any fever, chills, chest pain, palpitations, n/v/c/d. Objective - Vital Signs/Intake and Output Vital Signs (last 24 hours): Temp Pulse Resp BP Pulse Ox 98.3 F 86 20 133/84 96 12/31/17 08:33 12/31/17 11:35 12/31/17 08:33 12/31/17 11:35 12/31/17 08:33 - Medications Medications: Current Medications Albuterol/Ipratropium (Duoneb 3 Mg/0.5 Mg (3 Ml) Ud) 3 ml IH [id number] [facility] Last Admin: 12/31/17 14:37 Dose: 3 ml Albuterol/Ipratropium (Duoneb 3 Mg/0.5 Mg (3 Ml) Ud) 3 ml IH Q2H PRN PRN Reason: Shortness of Breath Last Admin: 12/27/17 17:57 Dose: 3 ml Arformoterol Tartrate (Brovana) 15 mcg IH [id number] [facility] Last Admin: 12/31/17 07:11 Dose: 15 mcg Atenolol (Tenormin) 50 mg PO DAILY [facility] Last Admin: 12/31/17 11:34 Dose: 50 mg Budesonide (Pulmicort Respules) 0.5 mg IH [id number] [facility] Last Admin: 12/31/17 07:12 Dose: 0.5 mg Digoxin (Lanoxin) 0.25 mg PO 1400 [facility] Last Admin: 12/31/17 13:55 Dose: 0.25 mg Diltiazem HCl (Cardizem Cd) 120 mg PO 2000 [facility] Last Admin: 12/30/17 20:31 Dose: 120 mg Furosemide (Lasix) 20 mg IVP BID [facility] Last Admin: 12/31/17 11:25 Dose: 20 mg Gabapentin (Neurontin) 400 mg PO DAILY [facility]; Protocol Last Admin: 12/31/17 11:37 Dose: 400 mg Haloperidol (Haldol) 2 mg PO ONCE PRN; Protocol PRN Reason: Agitation Lisinopril (Zestril) 10 mg PO DAILY [facility] Last Admin: 12/31/17 11:35 Dose: 10 mg Lorazepam (Ativan) 1 mg PO Q4H PRN; Protocol PRN Reason: Anxiety Last Admin: 12/30/17 21:52 Dose: 1 mg Lorazepam (Ativan) 0.5 mg PO TID [facility]; Protocol Last Admin: 12/31/17 13:55 Dose: 0.5 mg Magnesium Oxide (Mag-Ox) 400 mg PO BID [facility] Last Admin: 12/29/17 10:40 Dose: 400 mg Metoprolol Tartrate (Lopressor) 25 mg PO BID [facility] Last Admin: 12/31/17 11:35 Dose: 25 mg Prednisone (Prednisone Tab) 20 mg PO DAILY [facility] Last Admin: 12/31/17 11:35 Dose: 20 mg Quetiapine Fumarate (Seroquel) 12.5 mg PO HS [facility]; Protocol Last Admin: 12/30/17 21:51 Dose: 12.5 mg Sertraline HCl (Zoloft) 250 mg PO DAILY [facility] Last Admin: 12/31/17 11:34 Dose: 250 mg Warfarin Sodium (Coumadin) 3 mg PO 1800 [facility]; Protocol Last Admin: 12/30/17 18:00 Dose: Not Given - Labs Labs: 12/31/17 08:30 12/31/17 08:30 PT 31.6 SECONDS (9.4-12.5) H 12/31/17 08:30 INR 2.69 12/31/17 08:30 APTT 43.5 Seconds (25.1-36.5) H 12/31/17 08:30 - Additional Findings Additional findings: - Constitutional Appears: No Acute Distress, Confused - Head Exam Head Exam: ATRAUMATIC, NORMOCEPHALIC - Eye Exam Eye Exam: EOMI, Normal appearance, PERRL Pupil Exam: NORMAL ACCOMODATION - ENT Exam ENT Exam: Mucous Membranes Moist, Normal Exam - Neck Exam Neck Exam: Full ROM, Normal Inspection - Respiratory Exam Respiratory Exam: Accessory Muscle Use, Wheezes. absent: Rales, Rhonchi, Stridor Additional comments: b/l expiratory wheezes, improved - Cardiovascular Exam Cardiovascular Exam: IRREGULAR RHYTHM, +S1, +S2. absent: Gallop, Rubs, Murmur - GI/Abdominal Exam GI & Abdominal Exam: Soft, Normal Bowel Sounds. absent: Distended, Rigid, Tenderness - Extremities Exam Extremities Exam: Normal Inspection. absent: Pedal Edema - Neurological Exam Neurological Exam: Awake, Alert Neuro motor strength exam: Left Lower Extremity: 5, Right Lower Extremity: 5 Additional comments: AAOx2 - Skin Skin Exam: Warm, Intact Assessment and Plan - Assessment and Plan (Free Text) Assessment: Pt is a 72 year old female with PMH of A fib, COPD, CHF, Anxiety, presenting with SOB and productive cough. Pt is treated for COPD exacerbation and maintenance of A fib. Patient has moments of confusion. Will likely require home O2 as patient ambulatory pulse ox <89 upon ambulation without nasal cannula. Nasal cannula at 3L makes oxygen saturation goal of >89%. Plan: CHF Diastolic CHF w last known EF 55-60% (05/2017) BNP on 12/26 was 2990 Lisinopril 10mg po daily; Lasix 20 iv bid, atenolol 50 mg qd, digoxin 0.25 qd, metoprolol tart 25 mg bid COPD exacerbation CXR in ED 12/25 was negative for acute disease. CXR on 12/26 was negative for acute disease procalcitonin <0.05 blood cx show no growth after day 5 O2 on 3L nasal cannula to maintain O2 sat >88%; May need home O2 s/p ambulatory pulse ox with PT Solumedrol po 20mg daily duonebs 3ml q4 scheduled duonebs 3 ml q2h PRN Arformoterol 15mcg IH q12 Budesonide 0.5mg IH Q12 Confusion/delirium likely due to decreased oxygen saturation CT head 12/27 negative ABG 12/28- pH:7.50, pCO2: 46, pO2: 63, HCO3: 35.9, O2 sat: 94.9% Psych consulted- Dr Sidhu- recommendations appreciated Patient usually AAO x 2 on NC 3L Atrial Fibrillation Hx of A fib. Denies chest pain or palpitations EKG 12/25: shows atrial fibrillation rate approximately [address] and T-wave changes Digoxin 0.25 Continue Atenolol 50mg daily; Cardizem 120mg po wil INR today of 2.69. Give warfarin 1.5 mg; Repeat INR in AM Anxiety Haldol 2 mg po prn Psych consulted- recommendations as below Sertaline 250mg po daily Ativan 1mg po q4h prn Seroquel 12.5mg po HS Tobacco Use Disorder Educations patient on cessation Medical Management discussed with Dr. Paloma Hall PGY-1
[2017-12-31] MEDS: diltiaZEM 120 mg/24 Hours CD Cap PO SCH (21:21)
[2018-01-01] MEDS: Albuterol-Ipratrop 3 mg / 0.5 (3 ml) UD IH SCH ×6 (00:17→19:56)
[2018-01-01 07:01] LABS: EOS % 0.1 % (1.5-5.0); GRAN # 14.05 (1.4-6.5); GRAN % 79.1 % (50.0-68.0); HEMOGLOBIN 14.7 g/dL (12.0-16.0); LYMPH # 1.6 (1.2-3.4); LYMPH % 8.8 % (22.0-35.0); MEAN CELL VOLUME 90.2 fl (80.0-105.0); MEAN CORPUSCULAR HEMOGLOBIN 29.5 pg (25.0-35.0); MEAN CORPUSCULAR HGB CONC 32.7 g/dl (31.0-37.0); MEAN PLATELET VOLUME 8.9 fl (7.0-11.0); MONO # 2.1 (0.1-0.6); RBC 4.99 10^6/uL (3.5-6.1); RED CELL DISTRIBUTION WIDTH 13.5 % (11.5-14.5); WHITE BLOOD COUNT 17.7 10^3/ul (4.5-11.0)
[2018-01-01 07:09] LABS: INR 2.7; PARTIAL THROMBOPLASTIN TIME 38.5 Seconds (25.1-36.5); PROTHROMBIN TIME 31.7 SECONDS (9.4-12.5)
[2018-01-01] MEDS: Arformoterol 15 mcg/2 ml Inh Sol IH SCH ×2 (07:16→19:56)
[2018-01-01] MEDS: Budesonide 0.5 mg/2 ml Inhal Susp UD IH SCH ×2 (07:16→19:56)
[2018-01-01 07:24] LABS: ALB/GLOB RATIO 1.3 (1.1-1.8); ALBUMIN 3.8 g/dL (3.0-4.8); ALT/SGPT 48 U/L (7-56); AST/SGOT 39 U/L (14-36); BLOOD UREA NITROGEN 43 mg/dL (7-21); CALCIUM 9.4 mg/dL (8.4-10.5); GFR NON-AFRICAN AMERICAN > 60
[2018-01-01] MEDS: Digoxin 250 mcg (0.25 mg) Tab PO SCH (14:34)
--- NOTE | 2018-01-01 17:00 | CP.PCM.PN ---
Subjective - Date & Time of Evaluation Date of Evaluation: 01/01/18 Time of Evaluation: 11:50 - Subjective Subjective: PGY-1 Medicine Progress note for Dr. Dow's service Patient seen and examined at bedside. Patient AAO x3. Patient in the AM was very lethargic without oxygen. Patient denies fevers, sob, n/v, constipation or diarrhea, chest pain, dysuria. Objective - Vital Signs/Intake and Output Vital Signs (last 24 hours): Temp Pulse Resp BP Pulse Ox 97.6 F 70 20 128/71 96 01/01/18 14:00 01/01/18 14:00 01/01/18 14:00 01/01/18 14:00 01/01/18 14:00 Intake and Output: 01/01/18 01/01/18 06:59 18:59 Intake Total 480 360 Balance 480 360 - Medications Medications: Current Medications Albuterol/Ipratropium (Duoneb 3 Mg/0.5 Mg (3 Ml) Ud) 3 ml IH [id number] [facility] Last Admin: 01/01/18 16:02 Dose: 3 ml Albuterol/Ipratropium (Duoneb 3 Mg/0.5 Mg (3 Ml) Ud) 3 ml IH Q2H PRN PRN Reason: Shortness of Breath Last Admin: 12/27/17 17:57 Dose: 3 ml Arformoterol Tartrate (Brovana) 15 mcg IH [id number] [facility] Last Admin: 01/01/18 07:16 Dose: 15 mcg Atenolol (Tenormin) 50 mg PO DAILY [facility] Last Admin: 01/01/18 11:36 Dose: 50 mg Budesonide (Pulmicort Respules) 0.5 mg IH [id number] [facility] Last Admin: 01/01/18 07:16 Dose: 0.5 mg Digoxin (Lanoxin) 0.25 mg PO 1400 [facility] Last Admin: 01/01/18 14:34 Dose: 0.25 mg Diltiazem HCl (Cardizem Cd) 120 mg PO 2000 [facility] Last Admin: 12/31/17 21:21 Dose: 120 mg Furosemide (Lasix) 20 mg IVP BID [facility] Last Admin: 12/31/17 18:46 Dose: 20 mg Gabapentin (Neurontin) 400 mg PO DAILY [facility]; Protocol Last Admin: 01/01/18 11:37 Dose: 400 mg Lisinopril (Zestril) 10 mg PO DAILY [facility] Last Admin: 01/01/18 11:37 Dose: 10 mg Lorazepam (Ativan) 1 mg PO Q4H PRN; Protocol PRN Reason: Anxiety Last Admin: 12/31/17 21:20 Dose: 1 mg Lorazepam (Ativan) 0.5 mg PO TID [facility]; Protocol Last Admin: 01/01/18 14:34 Dose: 0.5 mg Magnesium Oxide (Mag-Ox) 400 mg PO BID [facility] Last Admin: 12/29/17 10:40 Dose: 400 mg Metoprolol Tartrate (Lopressor) 25 mg PO BID [facility] Last Admin: 01/01/18 11:38 Dose: 25 mg Prednisone (Prednisone Tab) 20 mg PO DAILY [facility] Last Admin: 01/01/18 11:36 Dose: 20 mg Quetiapine Fumarate (Seroquel) 12.5 mg PO HS [facility]; Protocol Last Admin: 12/31/17 21:20 Dose: 12.5 mg Sertraline HCl (Zoloft) 250 mg PO DAILY [facility] Last Admin: 01/01/18 11:36 Dose: 250 mg Warfarin Sodium (Coumadin) 3 mg PO 1800 [facility]; Protocol Last Admin: 12/31/17 17:52 Dose: Not Given - Labs Labs: 01/01/18 06:15 01/01/18 06:15 PT 31.7 SECONDS (9.4-12.5) H 01/01/18 06:15 INR 2.70 01/01/18 06:15 APTT 38.5 Seconds (25.1-36.5) H 01/01/18 06:15 - Additional Findings Additional findings: - Constitutional Appears: No Acute Distress, Confused - Head Exam Head Exam: ATRAUMATIC, NORMOCEPHALIC - Eye Exam Eye Exam: EOMI, Normal appearance, PERRL Pupil Exam: NORMAL ACCOMODATION - ENT Exam ENT Exam: Mucous Membranes Moist, Normal Exam - Neck Exam Neck Exam: Full ROM, Normal Inspection - Respiratory Exam Respiratory Exam: Accessory Muscle Use, Wheezes. absent: Rales, Rhonchi, Stridor Additional comments: b/l expiratory wheezes, improved - Cardiovascular Exam Cardiovascular Exam: IRREGULAR RHYTHM, +S1, +S2. absent: Gallop, Rubs, Murmur - GI/Abdominal Exam GI & Abdominal Exam: Soft, Normal Bowel Sounds. absent: Distended, Rigid, Tenderness - Extremities Exam Extremities Exam: Normal Inspection. absent: Pedal Edema - Neurological Exam Neurological Exam: Awake, Alert Neuro motor strength exam: Left Lower Extremity: 5, Right Lower Extremity: 5 Additional comments: AAOx3 - Skin Skin Exam: Warm, Intact Assessment and Plan - Assessment and Plan (Free Text) Assessment: Pt is a 72 year old female with PMH of A fib, COPD, CHF, Anxiety, presenting with SOB and productive cough. Pt is treated for COPD exacerbation and maintenance of A fib. Patient has moments of confusion. Will likely require home O2 as patient ambulatory pulse ox <89 upon ambulation without nasal cannula. Nasal cannula at 3L makes oxygen saturation goal of >89%. Pending home oxygen for discharge Plan: CHF Diastolic CHF w last known EF 55-60% (05/2017) BNP on 12/26 was 2990 Lisinopril 10mg po daily; atenolol 50 mg qd, digoxin 0.25 qd, metoprolol tart 25 mg bid Lasix 20mg IVP bid to switch to po tomorrow in AM COPD exacerbation CXR in ED 12/25 was negative for acute disease. CXR on 12/26 was negative for acute disease procalcitonin <0.05 blood cx show no growth after day 5 O2 on 3L nasal cannula to maintain O2 sat >88%; May need home O2 s/p ambulatory pulse ox with PT Solumedrol po 20mg daily duonebs 3ml q4 scheduled duonebs 3 ml q2h PRN Arformoterol 15mcg IH q12 Budesonide 0.5mg IH Q12 Confusion/delirium likely due to decreased oxygen saturation CT head 12/27 negative ABG 12/28- pH:7.50, pCO2: 46, pO2: 63, HCO3: 35.9, O2 sat: 94.9% Psych consulted- Dr Sidhu- recommendations appreciated Patient usually AAO x 2 on NC 3L Atrial Fibrillation Hx of A fib. Denies chest pain or palpitations EKG 12/25: shows atrial fibrillation rate approximately [address] and T-wave changes Digoxin 0.25 Continue Atenolol 50mg daily; Cardizem 120mg po wil INR today of 2.69. Give warfarin 1.5 mg; Repeat INR in AM Anxiety Haldol 2 mg po prn Psych consulted- recommendations as below Sertaline 250mg po daily Ativan 1mg po q4h prn Seroquel 12.5mg po HS Tobacco Use Disorder Educations patient on cessation Medical Management discussed with Dr. Paloma Hall PGY-1
--- NOTE | 2018-01-01 21:14 | PN ---
DATE: 01/01/2018 SUBJECTIVE: The patient is still in delirium stage. The patient has episodes of confusion and disorientation majority of the time this evening time and . Her vital signs are stable. Temperature 97.6, pulse is 70, blood pressure 128/71, respiration 20 and oxygen saturation is 96. Medications reviewed. DuoNeb, Brovana, atenolol, Pulmicort, digoxin, Cardizem, Lasix, Neurontin, Ativan, magnesium oxide, Protonix, Seroquel was increased to 25 mg at the nighttime. The patient is on Zoloft 250 [address] was prescribed [address] Mendez. WBC is still elevated at 17.7. Microbiology reviewed. Reports reviewed. MENTAL STATUS EXAM: The patient appears to be weak, breathing heavily. The patient was not able to hold conversation. Mood described as confused. Affect was flat. Thought process concrete. Thought content, the patient has episodes of confusion, but it is related to delirium stage. Insight and judgment seems to be limited, but improving. Impulses are better controlled. IMPRESSION: The patient is in delirium stage. The patient has history of depression, anxiety, rule out mood disorder due to general medical condition and anxiety disorder due to general medical condition. PLAN: Seroquel was increased. The patient still appears to be confused, majority of the time this evening time. Zoloft was continued. We will follow up and advise accordingly. Thank you very much for letting me participate in the care of your patient. Shaila Mattson MD
[2018-01-01] MEDS: diltiaZEM 120 mg/24 Hours CD Cap PO SCH (21:35)
[2018-01-02] MEDS: Albuterol-Ipratrop 3 mg / 0.5 (3 ml) UD IH SCH ×5 (01:00→19:45)
[2018-01-02] MEDS: Budesonide 0.5 mg/2 ml Inhal Susp UD IH SCH ×2 (07:03→19:45)
[2018-01-02] MEDS: Arformoterol 15 mcg/2 ml Inh Sol IH SCH ×2 (07:03→19:45)
[2018-01-02 07:24] LABS: INR 2.63; PARTIAL THROMBOPLASTIN TIME 38.4 Seconds (25.1-36.5); PROTHROMBIN TIME 30.8 SECONDS (9.4-12.5)
--- NOTE | 2018-01-02 13:27 | CP.PCM.PN ---
<Rafael,Madanna - Last Filed: 01/02/18 13:19> Subjective - Date & Time of Evaluation Date of Evaluation: 01/02/18 Time of Evaluation: 10:55 - Subjective Subjective: PGY-1 Medicine Progress note for Dr. Dow's service Patient seen and examined at bedside. Patient AAO x3. Patient was in the chair. Patient's daughter arranging for payment to receive oxygen at home. As per daughter she will not have money until tomorrow for payment. Patient denies fevers, sob, n/v, constipation or diarrhea, chest pain, dysuria. Objective - Vital Signs/Intake and Output Vital Signs (last 24 hours): Temp Pulse Resp BP Pulse Ox 98.3 F 67 18 139/72 95 01/02/18 06:00 01/02/18 10:29 01/02/18 06:00 01/02/18 10:29 01/02/18 06:00 Intake and Output: 01/02/18 01/02/18 06:59 18:59 Intake Total 100 Balance 100 - Medications Medications: Current Medications Albuterol/Ipratropium (Duoneb 3 Mg/0.5 Mg (3 Ml) Ud) 3 ml IH [id number] [facility] Last Admin: 01/02/18 11:51 Dose: 3 ml Albuterol/Ipratropium (Duoneb 3 Mg/0.5 Mg (3 Ml) Ud) 3 ml IH Q2H PRN PRN Reason: Shortness of Breath Last Admin: 12/27/17 17:57 Dose: 3 ml Arformoterol Tartrate (Brovana) 15 mcg IH [id number] [facility] Last Admin: 01/02/18 07:03 Dose: 15 mcg Atenolol (Tenormin) 50 mg PO DAILY [facility] Last Admin: 01/02/18 10:29 Dose: 50 mg Budesonide (Pulmicort Respules) 0.5 mg IH [id number] [facility] Last Admin: 01/02/18 07:03 Dose: 0.5 mg Digoxin (Lanoxin) 0.25 mg PO 1400 [facility] Last Admin: 01/01/18 14:34 Dose: 0.25 mg Diltiazem HCl (Cardizem Cd) 120 mg PO 2000 [facility] Last Admin: 01/01/18 21:35 Dose: 120 mg Furosemide (Lasix) 20 mg PO BID [facility] Last Admin: 01/02/18 10:28 Dose: 20 mg Gabapentin (Neurontin) 400 mg PO DAILY [facility]; Protocol Last Admin: 01/02/18 10:29 Dose: 400 mg Lisinopril (Zestril) 10 mg PO DAILY [facility] Last Admin: 01/02/18 10:26 Dose: 10 mg Lorazepam (Ativan) 1 mg PO Q4H PRN; Protocol PRN Reason: Anxiety Last Admin: 01/02/18 05:15 Dose: 1 mg Lorazepam (Ativan) 0.5 mg PO TID [facility]; Protocol Last Admin: 01/02/18 10:26 Dose: 0.5 mg Magnesium Oxide (Mag-Ox) 400 mg PO BID [facility] Last Admin: 12/29/17 10:40 Dose: 400 mg Metoprolol Tartrate (Lopressor) 25 mg PO BID [facility] Last Admin: 01/02/18 10:29 Dose: 25 mg Prednisone (Prednisone Tab) 20 mg PO DAILY [facility] Last Admin: 01/02/18 10:29 Dose: 20 mg Quetiapine Fumarate (Seroquel) 25 mg PO HS [facility]; Protocol Last Admin: 01/01/18 21:34 Dose: 25 mg Sertraline HCl (Zoloft) 250 mg PO DAILY [facility] Last Admin: 01/02/18 10:27 Dose: 250 mg Warfarin Sodium (Coumadin) 3 mg PO 1800 [facility]; Protocol Last Admin: 12/31/17 17:52 Dose: Not Given - Labs Labs: 01/01/18 06:15 01/01/18 06:15 PT 30.8 SECONDS (9.4-12.5) H 01/02/18 06:40 INR 2.63 01/02/18 06:40 APTT 38.4 Seconds (25.1-36.5) H 01/02/18 06:40 - Constitutional Appears: Non-toxic, No Acute Distress - Head Exam Head Exam: NORMAL INSPECTION, NORMOCEPHALIC - Eye Exam Eye Exam: EOMI, Normal appearance. absent: Nystagmus, Scleral icterus - Respiratory Exam Respiratory Exam: Wheezes, NORMAL BREATHING PATTERN. absent: Accessory Muscle Use, Rales, Rhonchi - Cardiovascular Exam Cardiovascular Exam: REGULAR RHYTHM, +S1, +S2. absent: Tachycardia - GI/Abdominal Exam GI & Abdominal Exam: Soft, Normal Bowel Sounds. absent: Firm, Guarding, Rigid, Tenderness - Extremities Exam Extremities Exam: Normal Inspection. absent: Calf Tenderness, Pedal Edema - Neurological Exam Neurological Exam: Alert, Awake, Oriented x3 - Psychiatric Exam Psychiatric exam: Normal Affect, Normal Mood - Skin Skin Exam: Intact, Normal Color Assessment and Plan - Assessment and Plan (Free Text) Assessment: Pt is a 72 year old female with PMH of A fib, COPD, CHF, Anxiety, presenting with SOB and productive cough. Pt is treated for COPD exacerbation and maintenance of A fib. Patient has moments of confusion. Will likely require home O2 as patient ambulatory pulse ox <89 upon ambulation without nasal cannula. Nasal cannula at 3L makes oxygen saturation goal of >89%. Pending home oxygen for discharge. Plan: CHF Diastolic CHF w last known EF 55-60% (05/2017) BNP on 12/26 was 2990 Lisinopril 10mg po daily; atenolol 50 mg qd, digoxin 0.25 qd, metoprolol tart 25 mg bid Lasix 20mg IVP bid to switch to po tomorrow in AM COPD exacerbation CXR in ED 12/25 was negative for acute disease. CXR on 12/26 was negative for acute disease procalcitonin <0.05 blood cx show no growth after day 5 O2 on 3L nasal cannula to maintain O2 sat >88%; May need home O2 s/p ambulatory pulse ox with PT prednisone po 20mg daily duonebs 3ml q4 scheduled duonebs 3 ml q2h PRN Arformoterol 15mcg IH q12 Budesonide 0.5mg IH Q12 Confusion/delirium likely due to decreased oxygen saturation CT head 12/27 negative ABG 12/28- pH:7.50, pCO2: 46, pO2: 63, HCO3: 35.9, O2 sat: 94.9% Psych consulted- Dr Sidhu- recommendations appreciated Patient usually AAO x 2 on NC 3L Atrial Fibrillation Hx of A fib. Denies chest pain or palpitations EKG 12/25: shows atrial fibrillation rate approximately [address] and T-wave changes Digoxin 0.25 Continue Cardizem 120mg po wil; metoprolol 50mg po bid Coumadin 2.5mg po daily, will repeat INRs Anxiety Haldol 2 mg po prn Psych consulted- recommendations as below Sertaline 250mg po daily Ativan 1mg po q4h prn Seroquel 12.5mg po HS Tobacco Use Disorder Educations patient on cessation Medical Management discussed with Dr. Paloma Hall PGY-1 <Fabio Walters - Last Filed: 01/02/18 17:13> Objective - Vital Signs/Intake and Output Vital Signs (last 24 hours): Temp Pulse Resp BP Pulse Ox 97 F L 67 20 124/71 93 L 01/02/18 14:00 01/02/18 14:00 01/02/18 14:00 01/02/18 14:00 01/02/18 14:00 Intake and Output: 01/02/18 01/02/18 06:59 18:59 Intake Total 100 Balance 100 - Medications Medications: Current Medications Albuterol/Ipratropium (Duoneb 3 Mg/0.5 Mg (3 Ml) Ud) 3 ml IH [id number] [facility] Last Admin: 01/02/18 11:51 Dose: 3 ml Albuterol/Ipratropium (Duoneb 3 Mg/0.5 Mg (3 Ml) Ud) 3 ml IH Q2H PRN PRN Reason: Shortness of Breath Last Admin: 12/27/17 17:57 Dose: 3 ml Arformoterol Tartrate (Brovana) 15 mcg IH [id number] [facility] Last Admin: 01/02/18 07:03 Dose: 15 mcg Budesonide (Pulmicort Respules) 0.5 mg IH [id number] [facility] Last Admin: 01/02/18 07:03 Dose: 0.5 mg Digoxin (Lanoxin) 0.25 mg PO 1400 [facility] Last Admin: 01/02/18 13:47 Dose: 0.25 mg Diltiazem HCl (Cardizem Cd) 120 mg PO 2000 [facility] Last Admin: 01/01/18 21:35 Dose: 120 mg Furosemide (Lasix) 20 mg PO BID [facility] Last Admin: 01/02/18 10:28 Dose: 20 mg Gabapentin (Neurontin) 400 mg PO DAILY [facility]; Protocol Last Admin: 01/02/18 10:29 Dose: 400 mg Lisinopril (Zestril) 10 mg PO DAILY [facility] Last Admin: 01/02/18 10:26 Dose: 10 mg Lorazepam (Ativan) 1 mg PO Q4H PRN; Protocol PRN Reason: Anxiety Last Admin: 01/02/18 05:15 Dose: 1 mg Lorazepam (Ativan) 0.5 mg PO TID [facility]; Protocol Last Admin: 01/02/18 13:46 Dose: 0.5 mg Magnesium Oxide (Mag-Ox) 400 mg PO BID [facility] Last Admin: 12/29/17 10:40 Dose: 400 mg Metoprolol Tartrate (Lopressor) 50 mg PO BID [facility] Prednisone (Prednisone Tab) 20 mg PO DAILY [facility] Last Admin: 01/02/18 10:29 Dose: 20 mg Quetiapine Fumarate (Seroquel) 25 mg PO HS [facility]; Protocol Last Admin: 01/01/18 21:34 Dose: 25 mg Sertraline HCl (Zoloft) 250 mg PO DAILY [facility] Last Admin: 01/02/18 10:27 Dose: 250 mg Warfarin Sodium (Coumadin) 2.5 mg PO DAILY [facility]; Protocol - Labs Labs: 01/01/18 06:15 01/01/18 06:15 PT 30.8 SECONDS (9.4-12.5) H 01/02/18 06:40 INR 2.63 01/02/18 06:40 APTT 38.4 Seconds (25.1-36.5) H 01/02/18 06:40 Attending/Attestation - Attestation I have personally seen and examined this patient.: Yes I have fully participated in the care of the patient.: Yes I have reviewed all pertinent clinical information, including history, physical exam and plan: Yes Notes (Text): 01/02/18 17:06 72 year old female with past medical history of afib, COPD, CHF and anxiety who presented with shortness of breath. She was started on steroids for COPD exacerbation which improved. She was also found to be hypoxic and started on oxygen. Her mental status has improved today. Psychiatry is following. Family currently working on arrangements for home oxygen for d/c planning. Patient was counselled on smoking abstinence. Fabio Walters MD Hospitalist.
[2018-01-02] MEDS: Digoxin 250 mcg (0.25 mg) Tab PO SCH (13:47)
--- NOTE | 2018-01-02 20:45 | PN ---
DATE: 01/02/2018 SUBJECTIVE: The patient was followed up today. The patient presented to be weak. The patient was not able to complete her sentences, oxygen saturation is 93 on nasal cannula. This advertising writer reviewed medications. The patient is on Seroquel 25 mg at the nighttime, Zoloft 250 mg daily. This advertising writer will decrease the dose of Zoloft to maximum recommended doses which is 200. As per staff, the patient is less confused, able to eat, but has poor appetite. No aggression, no agitation observed or reported. Vital signs are stable. Temperature 97, pulse is 67, blood pressure 124/71, respiration 20, oxygen saturation is 93. Medications reviewed. From the psychiatric standpoint, the patient is on Seroquel and Zoloft. The patient's labs reviewed. The patient still has leukocytosis 17.7, probably related to prednisone which she is taking. MENTAL STATUS EXAMINATION: The patient presented to be alert, appears to be weak, was not able to complete her sentences. Mood described as so-so. Affect was flat. Thought process concrete. Thought content, the patient appears to be less confused. Denied feeling of hopelessness or helplessness. Denied thoughts of harming herself or others. Insight and judgment seems to be improving. Impulses are well controlled. IMPRESSION: As per history, patient has depression and anxiety, rule out mood disorder and anxiety disorder due to general medical condition. The patient also was on delirium stage which seems to be improving. PLAN: Continue current management. Continue current medications. This advertising writer will follow up on this patient every other day because there is no acute issues. Should you have any questions, give me a call back. Thank you very much for letting me participate in the care of your patient. Shaila Mattson MD
[2018-01-02] MEDS: diltiaZEM 120 mg/24 Hours CD Cap PO SCH (22:10)
[2018-01-03] MEDS: Albuterol-Ipratrop 3 mg / 0.5 (3 ml) UD IH SCH ×7 (00:30→23:27)
[2018-01-03 07:04] LABS: INR 2.88; PARTIAL THROMBOPLASTIN TIME 38.1 Seconds (25.1-36.5); PROTHROMBIN TIME 33.9 SECONDS (9.4-12.5)
[2018-01-03] MEDS: Arformoterol 15 mcg/2 ml Inh Sol IH SCH ×2 (08:39→19:14)
[2018-01-03] MEDS: Budesonide 0.5 mg/2 ml Inhal Susp UD IH SCH ×2 (08:40→19:15)
[2018-01-03 12:58] LABS: ARTERIAL BLOOD GAS HCO3 37.8 mmol/L (21-28); ARTERIAL BLOOD GAS HEMOGLOBIN 14.6 g/dL (11.7-17.4); ARTERIAL BLOOD GAS O2 CONTENT 19.2 ML/dl (15-23); ARTERIAL BLOOD GAS O2 SAT 96.2 % (95-98); ARTERIAL BLOOD GAS PCO2 52 mm/Hg (35-45); ARTERIAL BLOOD GAS PH 7.47 (7.35-7.45); ARTERIAL BLOOD GAS TCO2 39.4 mmol.L (22-28)
--- NOTE | 2018-01-03 13:00 | RAD ---
Date of service: 01/03/2018 HISTORY: sob COMPARISON: 12/26/2017 FINDINGS: LUNGS: No active pulmonary disease. PLEURA: No significant pleural effusion identified, no pneumothorax apparent. CARDIOVASCULAR: Normal. OSSEOUS STRUCTURES: No significant abnormalities. VISUALIZED UPPER ABDOMEN: Normal. OTHER FINDINGS: None. IMPRESSION: No active disease.
[2018-01-03] MEDS: Digoxin 250 mcg (0.25 mg) Tab PO SCH (14:07)
[2018-01-03 15:06] VITALS: RESP 20
--- NOTE | 2018-01-03 17:52 | CP.PCM.PN ---
<Josue Hall - Last Filed: 01/03/18 17:49> Subjective - Date & Time of Evaluation Date of Evaluation: 01/03/18 Time of Evaluation: 17:49 - Subjective Subjective: PGY-1 Medicine Progress Note for Dr. Walters's Service Patient seen and examined at bedside. Patient very confused on prognosis and situation of her medical problems. Patient asking for a pack of cigarettes after it was explained that she requires home oxygen but cannot smoke with oxygen. Patient family was spoken with multiple times who have asked for nursing services and rehab at different times during the conversation. Patient family will be at bedside tomorrow for full discussion for further goals. Objective - Vital Signs/Intake and Output Vital Signs (last 24 hours): Temp Pulse Resp BP Pulse Ox 98 F 64 20 126/73 92 L 01/03/18 14:00 01/03/18 17:17 01/03/18 14:00 01/03/18 17:18 01/03/18 14:00 Intake and Output: 01/03/18 01/03/18 06:59 18:59 Intake Total 360 240 Balance 360 240 - Medications Medications: Current Medications Albuterol/Ipratropium (Duoneb 3 Mg/0.5 Mg (3 Ml) Ud) 3 ml IH [id number] [facility] Last Admin: 01/03/18 16:33 Dose: 3 ml Albuterol/Ipratropium (Duoneb 3 Mg/0.5 Mg (3 Ml) Ud) 3 ml IH Q2H PRN PRN Reason: Shortness of Breath Last Admin: 12/27/17 17:57 Dose: 3 ml Arformoterol Tartrate (Brovana) 15 mcg IH [id number] [facility] Last Admin: 01/03/18 08:39 Dose: 15 mcg Budesonide (Pulmicort Respules) 0.5 mg IH [id number] [facility] Last Admin: 01/03/18 08:40 Dose: 0.5 mg Digoxin (Lanoxin) 0.25 mg PO 1400 [facility] Last Admin: 01/03/18 14:07 Dose: 0.25 mg Diltiazem HCl (Cardizem Cd) 120 mg PO 2000 [facility] Last Admin: 01/02/18 22:10 Dose: 120 mg Furosemide (Lasix) 20 mg PO BID [facility] Last Admin: 01/03/18 17:18 Dose: 20 mg Gabapentin (Neurontin) 400 mg PO DAILY [facility]; Protocol Last Admin: 01/03/18 10:52 Dose: 400 mg Lisinopril (Zestril) 10 mg PO DAILY [facility] Last Admin: 01/03/18 10:51 Dose: 10 mg Lorazepam (Ativan) 1 mg PO Q4H PRN; Protocol PRN Reason: Anxiety Last Admin: 01/03/18 06:42 Dose: 1 mg Lorazepam (Ativan) 0.5 mg PO TID [facility]; Protocol Last Admin: 01/03/18 17:19 Dose: 0.5 mg Magnesium Oxide (Mag-Ox) 400 mg PO BID [facility] Last Admin: 12/29/17 10:40 Dose: 400 mg Metoprolol Tartrate (Lopressor) 50 mg PO BID [facility] Last Admin: 01/03/18 17:17 Dose: 50 mg Polyethylene Glycol (Miralax) 17 gm PO DAILY [facility] Prednisone (Prednisone Tab) 20 mg PO DAILY [facility] Last Admin: 01/03/18 10:50 Dose: 20 mg Quetiapine Fumarate (Seroquel) 25 mg PO QPM PRN; Protocol PRN Reason: Agitation Sertraline HCl (Zoloft) 200 mg PO DAILY [facility] Last Admin: 01/03/18 10:51 Dose: 200 mg Warfarin Sodium (Coumadin) 2.5 mg PO DAILY [facility]; Protocol Last Admin: 01/03/18 10:50 Dose: 2.5 mg - Labs Labs: 01/01/18 06:15 01/01/18 06:15 PT 33.9 SECONDS (9.4-12.5) H 01/03/18 06:20 INR 2.88 01/03/18 06:20 APTT 38.1 Seconds (25.1-36.5) H 01/03/18 06:20 - Constitutional Appears: Non-toxic, No Acute Distress - Head Exam Head Exam: NORMAL INSPECTION, NORMOCEPHALIC - Eye Exam Eye Exam: EOMI, Normal appearance. absent: Nystagmus, Scleral icterus - ENT Exam ENT Exam: Mucous Membranes Moist - Respiratory Exam Respiratory Exam: Clear to Ausculation Bilateral, Wheezes, NORMAL BREATHING PATTERN. absent: Rales, Rhonchi, Respiratory Distress - Cardiovascular Exam Cardiovascular Exam: REGULAR RHYTHM, +S1, +S2. absent: Tachycardia - GI/Abdominal Exam GI & Abdominal Exam: Soft, Normal Bowel Sounds. absent: Tenderness - Extremities Exam Extremities Exam: Full ROM, Normal Inspection. absent: Calf Tenderness, Pedal Edema - Neurological Exam Neurological Exam: Awake. absent: Alert - Psychiatric Exam Psychiatric exam: Anxious - Skin Skin Exam: Intact, Normal Color Assessment and Plan - Assessment and Plan (Free Text) Assessment: Pt is a 72 year old female with PMH of A fib, COPD, CHF, Anxiety, presenting with SOB and productive cough. Pt is treated for COPD exacerbation and maintenance of A fib. Patient has moments of confusion. Will likely require home O2 as patient ambulatory pulse ox <89 upon ambulation without nasal cannula. Nasal cannula at 3L makes oxygen saturation goal of >89%. Patient has been appr yris for home oxygen. Full detailed conversation will be held with family for further goals as family at times requests nursing services vs rehab. Plan: CHF Diastolic CHF w last known EF 55-60% (05/2017) BNP on 12/26 was 2990 Lisinopril 10mg po daily; atenolol 50 mg qd, digoxin 0.25 qd, metoprolol tart 25 mg bid Lasix 20mg IVP bid to switch to po tomorrow in AM COPD exacerbation CXR in ED 12/25 was negative for acute disease. CXR on 12/26 was negative for acute disease procalcitonin <0.05 blood cx show no growth after day 5 O2 on 3L nasal cannula to maintain O2 sat >88%; May need home O2 s/p ambulatory pulse ox with PT prednisone po 20mg daily duonebs 3ml q4 scheduled duonebs 3 ml q2h PRN Arformoterol 15mcg IH q12 Budesonide 0.5mg IH Q12 Confusion/delirium likely due to decreased oxygen saturation CT head 12/27 negative ABG 12/28- pH:7.50, pCO2: 46, pO2: 63, HCO3: 35.9, O2 sat: 94.9% Psych consulted- Dr Sidhu- recommendations appreciated Patient usually AAO x 2 on NC 3L Atrial Fibrillation Hx of A fib. Denies chest pain or palpitations EKG 12/25: shows atrial fibrillation rate approximately [address] and T-wave changes Digoxin 0.25 Continue Cardizem 120mg po wil; metoprolol 50mg po bid Coumadin 2.5mg po daily, will repeat INRs Anxiety Haldol 2 mg po prn Psych consulted- recommendations as below Sertaline 250mg po daily Ativan 1mg po q4h prn Seroquel 12.5mg po HS Tobacco Use Disorder Educations patient on cessation Nicotine patch 21 Dispostion: Rehab vs home with family (conversation will be had tomorrow with family) Medical Management discussed with Dr. Romeo Hall PGY-1 <Fabio Walters - Last Filed: 01/03/18 18:33> Objective - Vital Signs/Intake and Output Vital Signs (last 24 hours): Temp Pulse Resp BP Pulse Ox 98 F 64 20 126/73 92 L 01/03/18 14:00 01/03/18 17:17 01/03/18 14:00 01/03/18 17:18 01/03/18 14:00 Intake and Output: 01/03/18 01/03/18 06:59 18:59 Intake Total 360 240 Balance 360 240 - Medications Medications: Current Medications Albuterol/Ipratropium (Duoneb 3 Mg/0.5 Mg (3 Ml) Ud) 3 ml IH [id number] [facility] Last Admin: 01/03/18 16:33 Dose: 3 ml Albuterol/Ipratropium (Duoneb 3 Mg/0.5 Mg (3 Ml) Ud) 3 ml IH Q2H PRN PRN Reason: Shortness of Breath Last Admin: 12/27/17 17:57 Dose: 3 ml Arformoterol Tartrate (Brovana) 15 mcg IH [id number] [facility] Last Admin: 01/03/18 08:39 Dose: 15 mcg Budesonide (Pulmicort Respules) 0.5 mg IH [id number] [facility] Last Admin: 01/03/18 08:40 Dose: 0.5 mg Digoxin (Lanoxin) 0.25 mg PO 1400 [facility] Last Admin: 01/03/18 14:07 Dose: 0.25 mg Diltiazem HCl (Cardizem Cd) 120 mg PO 2000 [facility] Last Admin: 01/02/18 22:10 Dose: 120 mg Furosemide (Lasix) 20 mg PO BID [facility] Last Admin: 01/03/18 17:18 Dose: 20 mg Gabapentin (Neurontin) 400 mg PO DAILY [facility]; Protocol Last Admin: 01/03/18 10:52 Dose: 400 mg Lisinopril (Zestril) 10 mg PO DAILY [facility] Last Admin: 01/03/18 10:51 Dose: 10 mg Lorazepam (Ativan) 1 mg PO Q4H PRN; Protocol PRN Reason: Anxiety Last Admin: 01/03/18 06:42 Dose: 1 mg Lorazepam (Ativan) 0.5 mg PO TID [facility]; Protocol Last Admin: 01/03/18 17:19 Dose: 0.5 mg Magnesium Oxide (Mag-Ox) 400 mg PO BID [facility] Last Admin: 12/29/17 10:40 Dose: 400 mg Metoprolol Tartrate (Lopressor) 50 mg PO BID [facility] Last Admin: 01/03/18 17:17 Dose: 50 mg Nicotine (Nicoderm Cq) 1 patch TD DAILY [facility] Last Admin: 01/03/18 17:59 Dose: 1 patch Polyethylene Glycol (Miralax) 17 gm PO DAILY [facility] Prednisone (Prednisone Tab) 20 mg PO DAILY [facility] Last Admin: 01/03/18 10:50 Dose: 20 mg Quetiapine Fumarate (Seroquel) 25 mg PO QPM PRN; Protocol PRN Reason: Agitation Sertraline HCl (Zoloft) 200 mg PO DAILY [facility] Last Admin: 01/03/18 10:51 Dose: 200 mg Warfarin Sodium (Coumadin) 2.5 mg PO DAILY [facility]; Protocol Last Admin: 01/03/18 10:50 Dose: 2.5 mg - Labs Labs: 01/01/18 06:15 01/01/18 06:15 PT 33.9 SECONDS (9.4-12.5) H 01/03/18 06:20 INR 2.88 01/03/18 06:20 APTT 38.1 Seconds (25.1-36.5) H 01/03/18 06:20 Attending/Attestation - Attestation I have personally seen and examined this patient.: Yes I have fully participated in the care of the patient.: Yes I have reviewed all pertinent clinical information, including history, physical exam and plan: Yes Notes (Text): 01/03/18 18:31 72 year old female with past medical history of afib, COPD, CHF and anxiety who presented with shortness of breath. She was started on steroids for COPD exacerbation which improved. She was also found to be hypoxic and started on oxygen. Her mental status continues to fluctuate. Psychiatry is following and switched seroquel to prn. Will need to discuss with family tomorrow reguarding d/c planning home with services vs rehab. Smoking abstinence was emphasized again today to both patient and family. Fabio Walters MD Hospitalist.
[2018-01-03] MEDS: diltiaZEM 120 mg/24 Hours CD Cap PO SCH (20:46)
[2018-01-04] MEDS: Albuterol-Ipratrop 3 mg / 0.5 (3 ml) UD IH SCH ×5 (04:00→20:36)
[2018-01-04] MEDS: Budesonide 0.5 mg/2 ml Inhal Susp UD IH SCH ×2 (07:13→20:36)
[2018-01-04] MEDS: Arformoterol 15 mcg/2 ml Inh Sol IH SCH ×2 (07:13→20:36)
[2018-01-04 09:47] LABS: BASO # 0.01 K/mm3 (0.0-2.0); BASO % 0.1 % (0.0-3.0); EOS % 0.1 % (1.5-5.0); GRAN # 15.99 (1.4-6.5); GRAN % 83.7 % (50.0-68.0); HEMOGLOBIN 14.9 g/dL (12.0-16.0); LYMPH # 1.7 (1.2-3.4); LYMPH % 8.8 % (22.0-35.0); MEAN CELL VOLUME 88.5 fl (80.0-105.0); MEAN CORPUSCULAR HEMOGLOBIN 29.6 pg (25.0-35.0); MEAN CORPUSCULAR HGB CONC 33.5 g/dl (31.0-37.0); MEAN PLATELET VOLUME 9.1 fl (7.0-11.0); MONO # 1.4 (0.1-0.6); MONO % 7.3 % (1.0-6.0); RBC 5.03 10^6/uL (3.5-6.1); RED CELL DISTRIBUTION WIDTH 13.3 % (11.5-14.5); WHITE BLOOD COUNT 19.1 10^3/ul (4.5-11.0)
[2018-01-04 09:52] LABS: INR 3.33; PARTIAL THROMBOPLASTIN TIME 43.6 Seconds (25.1-36.5); PROTHROMBIN TIME 39.2 SECONDS (9.4-12.5)
[2018-01-04 09:58] LABS: ALB/GLOB RATIO 1.2 (1.1-1.8); ALBUMIN 3.7 g/dL (3.0-4.8); ALT/SGPT 73 U/L (7-56); AST/SGOT 46 U/L (14-36); BLOOD UREA NITROGEN 29 mg/dL (7-21); CALCIUM 9.3 mg/dL (8.4-10.5); GFR NON-AFRICAN AMERICAN > 60
[2018-01-04] MEDS ORDERED: POLYETHYLENE GLYCOL 3350 17 GM/Dose PACKET PO SCH (10:00)
--- NOTE | 2018-01-04 11:30 | PN ---
DATE: 01/04/2018 FOLLOWUP NOTE SUBJECTIVE: The patient is a 72-year-old female, reported history of COPD, chronic smoker. The patient was admitted on the medical site for COPD exacerbation. The patient also has atrial fibrillation, on Coumadin; congestive heart failure. This brief writer was involved into the patient's care because the patient had episodes of confusion. On top of that, the patient has history of depression and anxiety. Over the course of this hospitalization, the patient has episodes of confusion and delirium, which is related to a COPD exacerbation and medical condition. This brief writer decreased the dose of Zoloft to 200 mg from 250 because maximum recommended dose is 200 mg. The patient was started on Seroquel at the nighttime for confusion and delirium stage. Medical team raised concern about the patient's lethargy and they thought that it might be due to Seroquel, but this brief writer do not share that impression. The patient's delirium and lethargy are related to the medical condition. Vital signs reviewed. Temperature is 98, pulse 64, blood pressure 114/63, oxygen saturation is 92. Medications reviewed. The patient is on DuoNeb, Brovana, digoxin, Cardizem, Lasix, Neurontin, Zestril, Ativan 1 mg p.o. every 4 hours p.r.n., usually the patient takes that medication twice a day and Ativan 0.5 mg three times day scheduled. The patient is on magnesium oxide, Lopressor, Nicoderm, also MiraLax, prednisone, Seroquel 25 mg at the nighttime, Zoloft 200 mg and Coumadin. Labs reviewed. WBC cells 19.1. Coagulation reviewed. Blood gas reviewed. Chemistry reviewed. MENTAL STATUS EXAMINATION: The patient appears to be confused. The patient thought that she is in [employer]. The patient had difficulty to concentrate and stay focused. Mood described not good. Affect was flat. Thought process concrete. Thought content, the patient has episodes of confusion, delirium. Insight and judgment seems to be impaired. Impulses are well controlled. IMPRESSION: The patient has history of anxiety and depression due to general medical condition, rule out major depressive disorder. The patient at present moment is in delirium stage due to chronic obstructive pulmonary disease and poor oxygenation. Continue Seroquel at the nighttime. Continue Zoloft. Continue Ativan. This brief writer suggest psychiatric followup every other day because there are no acute issues going on. I wish the patient to start feeling better soon in regards of safety discharge. The patient is still smoking. The patient is on oxygen and primary team scheduling meeting with the patient's family. Thank you very much for letting me participate in the care of your patient. Should you have any questions, give me a call back. Shaila Mattson MD
[2018-01-04] MEDS: Digoxin 250 mcg (0.25 mg) Tab PO SCH (14:02)
[2018-01-04 14:05] VITALS: PULSE 90
[2018-01-04 14:53] VITALS: TEMP 98.4; O2SAT 93
--- NOTE | 2018-01-04 16:46 | CP.PCM.DIS ---
<Josue Hall - Last Filed: 01/04/18 16:43> Provider - Provider Date of Admission: 12/26/17 13:41 Attending physician: Fabio Walters MD Consults: Dr. Sidhu Time Spent in preparation of Discharge (in minutes): 45 Hospital Course - Lab Results Lab Results: Micro Results 12/25/17 11:45 Blood-Venous Blood Culture - Final NO GROWTH AFTER 5 DAYS 12/25/17 11:45 Blood-Venous Gram Stain - Final TEST NOT PERFORMED 12/25/17 11:45 Blood-Venous Blood Culture - Final NO GROWTH AFTER 5 DAYS 12/25/17 11:45 Blood-Venous Gram Stain - Final TEST NOT PERFORMED Most Recent Lab Values WBC 19.1 10^3/ul (4.5-11.0) H 01/04/18 09:30 RBC 5.03 10^6/uL (3.5-6.1) 01/04/18 09:30 Hgb 14.9 g/dL (12.0-16.0) 01/04/18 09:30 Hct 44.5 % (36.0-48.0) 01/04/18 09:30 MCV 88.5 fl (80.0-105.0) 01/04/18 09:30 MCH 29.6 pg (25.0-35.0) 01/04/18 09:30 MCHC 33.5 g/dl (31.0-37.0) 01/04/18 09:30 RDW 13.3 % (11.5-14.5) 01/04/18 09:30 Plt Count 418 10^3/uL (120.0-450.0) 01/04/18 09:30 MPV 9.1 fl (7.0-11.0) 01/04/18 09:30 Gran % 83.7 % (50.0-68.0) H 01/04/18 09:30 Lymph % (Auto) 8.8 % (22.0-35.0) L 01/04/18 09:30 Kleberg % (Auto) 7.3 % (1.0-6.0) H 01/04/18 09:30 Eos % (Auto) 0.1 % (1.5-5.0) L 01/04/18 09:30 Baso % (Auto) 0.1 % (0.0-3.0) 01/04/18 09:30 Gran # 15.99 (1.4-6.5) H 01/04/18 09:30 Lymph # (Auto) 1.7 (1.2-3.4) 01/04/18 09:30 Kleberg # (Auto) 1.4 (0.1-0.6) H 01/04/18 09:30 Eos # (Auto) 0.0 (0.0-0.7) 01/04/18 09:30 Baso # (Auto) 0.01 K/mm3 (0.0-2.0) 01/04/18 09:30 Neutrophils % (Manual) 95 % (50.0-70.0) H 12/25/17 11:20 Lymphocytes % (Manual) 2 % (22.0-35.0) L 12/25/17 11:20 Atypical Lymphs % 1 % (0.0-0.0) H 12/25/17 11:20 Monocytes % (Manual) 2 % (1.0-6.0) 12/25/17 11:20 PT 39.2 SECONDS (9.4-12.5) H 01/04/18 09:30 INR 3.33 01/04/18 09:30 APTT 43.6 Seconds (25.1-36.5) H 01/04/18 09:30 pCO2 52 mm/Hg (35-45) H 01/03/18 12:54 pO2 69.0 mm/Hg (80-100) L 01/03/18 12:54 HCO3 37.8 mmol/L (21-28) H 01/03/18 12:54 ABG pH 7.47 (7.35-7.45) H 01/03/18 12:54 ABG Total CO2 39.4 mmol.L (22-28) H 01/03/18 12:54 ABG O2 Saturation 96.2 % (95-98) 01/03/18 12:54 ABG O2 Content 19.2 ML/dl (15-23) 01/03/18 12:54 ABG Base Excess 11.9 mmol/L (-2.0-3.0) H 01/03/18 12:54 ABG Hemoglobin 14.6 g/dL (11.7-17.4) 01/03/18 12:54 ABG Carboxyhemoglobin 1.8 % (0.5-1.5) H 01/03/18 12:54 POC ABG HHb (Measured) 3.7 % (0-5) 01/03/18 12:54 ABG Methemoglobin 1.0 % (0.0-3.0) 01/03/18 12:54 ABG O2 Capacity 20.0 mL/dl (16-24) 01/03/18 12:54 ABG Potassium 3.9 mmol/L (3.6-5.2) 12/31/17 10:50 Hgb O2 Saturation 93.5 % (95.0-98.0) L 01/03/18 12:54 Sodium 140.0 mmol/L (132-148) 12/31/17 10:50 Chloride 105.0 mmol/L (98-107) 12/31/17 10:50 Glucose 95 mg/dl (65-105) 12/31/17 10:50 Lactate 1.1 mmol/L (0.7-2.1) 12/31/17 10:50 FiO2 32.0 % 01/03/18 12:54 Sodium 133 mmol/L (132-148) 01/04/18 09:30 Potassium 3.9 mmol/L (3.6-5.0) 01/04/18 09:30 Chloride 88 mmol/L (98-107) L 01/04/18 09:30 Carbon Dioxide 37 mmol/L (21-33) H 01/04/18 09:30 Anion Gap 12 (10-20) 01/04/18 09:30 BUN 29 mg/dL (7-21) H 01/04/18 09:30 Creatinine 0.7 mg/dl (0.7-1.2) 01/04/18 09:30 Est GFR ( Amer) > 60 01/04/18 09:30 Est GFR (Non-Af Amer) > 60 01/04/18 09:30 Random Glucose 121 mg/dL (70-110) H 01/04/18 09:30 Calcium 9.3 mg/dL (8.4-10.5) 01/04/18 09:30 Phosphorus 4.1 mg/dL (2.5-4.5) 12/26/17 07:00 Magnesium 2.1 mg/dL (1.7-2.2) 01/04/18 09:30 Total Bilirubin 0.7 mg/dL (0.2-1.3) 01/04/18 09:30 AST 46 U/L (14-36) H 01/04/18 09:30 ALT 73 U/L (7-56) H 01/04/18 09:30 Alkaline Phosphatase 64 U/L (38-126) 01/04/18 09:30 Lactate Dehydrogenase 533 U/L (333-699) 12/25/17 11:20 Total Creatine Kinase 75 U/L (35-230) 12/25/17 11:20 Troponin I < 0.01 ng/mL 12/25/17 11:20 NT-Pro-B Natriuret Pep 2990 pg/mL (0-450) H 12/26/17 08:30 Total Protein 6.8 g/dL (5.8-8.3) 01/04/18 09:30 Albumin 3.7 g/dL (3.0-4.8) 01/04/18 09:30 Globulin 3.1 gm/dL 01/04/18 09:30 Albumin/Globulin Ratio 1.2 (1.1-1.8) 01/04/18 09:30 Arterial Blood Potassium 3.9 mmol/L (3.6-5.2) 12/31/17 10:50 - Hospital Course Hospital Course: Upon admission Patient is a 72yo female with a PMH of Atrial fibrillation on warfarin, COPD, diastolic congestive heart failure, HTN, and Anxiety. Patient presents today with SOB for two days and a feeling of an elephant sitting on my chest. Patient states she has COPD diagnosed in 2016 and since then has had episodes of SOB and a chronic cough, and that this feels similar to those episodes in the past. She has multiple admission to this hosptial in the past year for similar complaints. Now she is usually able to do housework without getting short of breath, but states this morning she was having more trouble. She went to the ED last night for similar complaints but left AMA with a script for 5 tabs of prednisone which she filled and took one of at 2am this morning. She also used her nebulizer with Advair this morning with minimal relief. Patient has a productive cough with clear mucus. Cough comes and goes for the last two years. Patient also has hx of anxiety for which she sees Dr. Odom in [place] and is taking Xanax and Zoloft. Patient has a hx of recent falls, last fall was ten days ago. She has visible bruising on lower extremities from fall. Hospital Course Patient is a 72yo female with a PMH of Atrial fibrillation on warfarin, COPD, diastolic congestive heart failure (EF 55-60 in 06/10), HTN, and Anxiety. She was admitted for worsening SOB due to COPD exacerbation and continued management of her CHF and Atrial fibrillation. Patientt initially had diffuse audible expiatory wheezing bilaterally with labored breathing. CXR x 2 showed no acute findings. Pt's acute COPD exacerbation was managed with duonebs, Brovana, Pulmicort, and Solumedrol. Upon D/C pt has minimal wheezing. Patient was also placed on supplemental O2 at 3L via nasal cannula. Her O2 saturation was is >88% on 3L upon discharge. Counseled patient on smoking cessation and informed patientt of risks with continued smoking. Patient has diastolic CHF with an EF of 55-60%. BNP 2990. Upon admission diuretics were initially held due to hyponatremia and hypomagnesemia. Magnesium was repleted and electrolytes monitored throughout stay. CHF was managed with lisinopril, lasix, atenolol, and metoprolol and a five day course of Doxycycline. Upon D/C, patients electrolytes were stabilized, patient is afebrile and vitals are stable. Atrial Fibrillation: EKG done on admission showed atrial fibrillation with a rate of approximately [address] and T-wave changes. Patient denied chest pain, palpitations, or discomfort. Patient was maintained on digoxin, atenolol, warfarin, and cardizem. INR and therapeutic digoxin levels were monitored and subsequent drug management throughout admission. Anxiety: Patient has severe anxiety and was initially kept on her home meds- xanax and sertaline. On day two of hospital course pt became confused and agitated over night. Per nursing report, patient would take off her supplemental O2 and become increasingly disoriented. Psych was consulted. Patient was switched to Ativan .5 TID and Seroquel at night to help with sleeping and maintain sufficient oxygenation throughout the night. Head CT showed no acute findings. Upon D/C pt is AAO x 3, however without oxygen it can be at its worst AAO x1. Patient is amenable to going to [facility] as recommended by physical therapy. She will be provided with continued supplemental O2, 3L via NC. Discharge plan Patient is stable for d/c to [facility] as per Dr. Cabral. Patient is to f/u with PMD, Dr. Casas within 3-5 days of d/c from [facility]. Patient is to resume all medications as described in medication reconciliation and to take as prescribed and instructed. Medications below were discussed and understood by patient. Medications listed under discharge plan. Patient should return to the hospital if sxs worsen or recur. Pt understands plan as above and agrees. Conversation was had with family and social media editor that patient requires extensive physical therapy and monitoring as patient wants to smoke when she requires home oxygen. Family agrees that patient should go to [facility] before she comes home. Patient was amenable to this plan as family was at bedside and reinforced the [facility] suggestion. Coumadin will need further adjustment as per INR levels. Disclaimer:Written above is a synopsis of pt's current hospital stay. For full report refer to EMR. Discharge Exam - Head Exam Head Exam: NORMAL INSPECTION, NORMOCEPHALIC - Eye Exam Eye Exam: EOMI, Normal appearance. absent: Nystagmus, Scleral icterus - ENT Exam ENT Exam: Mucous Membranes Moist - Respiratory Exam Respiratory Exam: Clear to PA & Lateral, NORMAL BREATHING PATTERN. absent: Rales, Rhonchi, Wheezes - Cardiovascular Exam Cardiovascular Exam: REGULAR RHYTHM, +S1, +S2 - GI/Abdominal Exam GI & Abdominal Exam: Normal Bowel Sounds, Soft. absent: Distended, Firm, Guarding, Hernia, Tenderness - Neurological Exam Additional comments: baseline confusion intermittently because patient does not use oxygen - Psychiatric Exam Psychiatric exam: Normal Affect, Normal Mood - Skin Skin Exam: Intact, Normal Color Discharge Plan - Discharge Medications Prescriptions: Lisinopril [Zestril] 10 mg PO DAILY #30 tab - Follow Up Plan Condition: FAIR Disposition: REHAB FACILITY/REHAB UNIT Additional Instructions: 1. Patient is stable for discharge to home as per Dr. Walters. Patient is eligible for home oxygen as patient is still smoking at home. Patient has oxygen arran ged for home. 2. Patient is to followup with primary medical doctor, Dr. Casas, within 3- 7 days of discharge from hospital for repeat INR. Patient's warfarin was adjusted and will need continuous adjustment as per INR readings. Will hold today dose of coumadin pending repeat INR tomorrow. Will need [facility] to adjust coumadin dose for treament of patient's Afib. Patient should followup with psych iatrist at [facility] facility at [facility]. 3. Patient will continue all of the following medications: Duonebs 3ml IH q2h prn, Duoneb 3ml IH q12h resp, Brovana, Pulmicort, Lasix, Gabapentin, Ativan wil, Ativan PRN, Lopressor, Nicotine patch, Prednisone for 3-5 days only, Seroquel, Zoloft, Warfarin (adjusted as per INR by [facility] physicians) 4. Patient will return to hospital if symptoms worsen or recur. Patient is educated to stop smoking as this may lead exacerbation to her condition. 5. Patient understands the plan as above and agrees. Referrals: Butch Odom MD [Medical Doctor] - Andrea Casas MD [Family Provider] - <Fabio Walters - Last Filed: 01/04/18 17:10> Provider - Provider Date of Admission: 12/26/17 13:41 Attending physician: Fabio Walters MD Hospital Course - Lab Results Lab Results: Micro Results 12/25/17 11:45 Blood-Venous Blood Culture - Final NO GROWTH AFTER 5 DAYS 12/25/17 11:45 Blood-Venous Gram Stain - Final TEST NOT PERFORMED 12/25/17 11:45 Blood-Venous Blood Culture - Final NO GROWTH AFTER 5 DAYS 12/25/17 11:45 Blood-Venous Gram Stain - Final TEST NOT PERFORMED Most Recent Lab Values WBC 19.1 10^3/ul (4.5-11.0) H 01/04/18 09:30 RBC 5.03 10^6/uL (3.5-6.1) 01/04/18 09:30 Hgb 14.9 g/dL (12.0-16.0) 01/04/18 09:30 Hct 44.5 % (36.0-48.0) 01/04/18 09:30 MCV 88.5 fl (80.0-105.0) 01/04/18 09:30 MCH 29.6 pg (25.0-35.0) 01/04/18 09:30 MCHC 33.5 g/dl (31.0-37.0) 01/04/18 09:30 RDW 13.3 % (11.5-14.5) 01/04/18 09:30 Plt Count 418 10^3/uL (120.0-450.0) 01/04/18 09:30 MPV 9.1 fl (7.0-11.0) 01/04/18 09:30 Gran % 83.7 % (50.0-68.0) H 01/04/18 09:30 Lymph % (Auto) 8.8 % (22.0-35.0) L 01/04/18 09:30 Kleberg % (Auto) 7.3 % (1.0-6.0) H 01/04/18 09:30 Eos % (Auto) 0.1 % (1.5-5.0) L 01/04/18 09:30 Baso % (Auto) 0.1 % (0.0-3.0) 01/04/18 09:30 Gran # 15.99 (1.4-6.5) H 01/04/18 09:30 Lymph # (Auto) 1.7 (1.2-3.4) 01/04/18 09:30 Kleberg # (Auto) 1.4 (0.1-0.6) H 01/04/18 09:30 Eos # (Auto) 0.0 (0.0-0.7) 01/04/18 09:30 Baso # (Auto) 0.01 K/mm3 (0.0-2.0) 01/04/18 09:30 Neutrophils % (Manual) 95 % (50.0-70.0) H 12/25/17 11:20 Lymphocytes % (Manual) 2 % (22.0-35.0) L 12/25/17 11:20 Atypical Lymphs % 1 % (0.0-0.0) H 12/25/17 11:20 Monocytes % (Manual) 2 % (1.0-6.0) 12/25/17 11:20 PT 39.2 SECONDS (9.4-12.5) H 01/04/18 09:30 INR 3.33 01/04/18 09:30 APTT 43.6 Seconds (25.1-36.5) H 01/04/18 09:30 pCO2 52 mm/Hg (35-45) H 01/03/18 12:54 pO2 69.0 mm/Hg (80-100) L 01/03/18 12:54 HCO3 37.8 mmol/L (21-28) H 01/03/18 12:54 ABG pH 7.47 (7.35-7.45) H 01/03/18 12:54 ABG Total CO2 39.4 mmol.L (22-28) H 01/03/18 12:54 ABG O2 Saturation 96.2 % (95-98) 01/03/18 12:54 ABG O2 Content 19.2 ML/dl (15-23) 01/03/18 12:54 ABG Base Excess 11.9 mmol/L (-2.0-3.0) H 01/03/18 12:54 ABG Hemoglobin 14.6 g/dL (11.7-17.4) 01/03/18 12:54 ABG Carboxyhemoglobin 1.8 % (0.5-1.5) H 01/03/18 12:54 POC ABG HHb (Measured) 3.7 % (0-5) 01/03/18 12:54 ABG Methemoglobin 1.0 % (0.0-3.0) 01/03/18 12:54 ABG O2 Capacity 20.0 mL/dl (16-24) 01/03/18 12:54 ABG Potassium 3.9 mmol/L (3.6-5.2) 12/31/17 10:50 Hgb O2 Saturation 93.5 % (95.0-98.0) L 01/03/18 12:54 Sodium 140.0 mmol/L (132-148) 12/31/17 10:50 Chloride 105.0 mmol/L (98-107) 12/31/17 10:50 Glucose 95 mg/dl (65-105) 12/31/17 10:50 Lactate 1.1 mmol/L (0.7-2.1) 12/31/17 10:50 FiO2 32.0 % 01/03/18 12:54 Sodium 133 mmol/L (132-148) 01/04/18 09:30 Potassium 3.9 mmol/L (3.6-5.0) 01/04/18 09:30 Chloride 88 mmol/L (98-107) L 01/04/18 09:30 Carbon Dioxide 37 mmol/L (21-33) H 01/04/18 09:30 Anion Gap 12 (10-20) 01/04/18 09:30 BUN 29 mg/dL (7-21) H 01/04/18 09:30 Creatinine 0.7 mg/dl (0.7-1.2) 01/04/18 09:30 Est GFR ( Amer) > 60 01/04/18 09:30 Est GFR (Non-Af Amer) > 60 01/04/18 09:30 Random Glucose 121 mg/dL (70-110) H 01/04/18 09:30 Calcium 9.3 mg/dL (8.4-10.5) 01/04/18 09:30 Phosphorus 4.1 mg/dL (2.5-4.5) 12/26/17 07:00 Magnesium 2.1 mg/dL (1.7-2.2) 01/04/18 09:30 Total Bilirubin 0.7 mg/dL (0.2-1.3) 01/04/18 09:30 AST 46 U/L (14-36) H 01/04/18 09:30 ALT 73 U/L (7-56) H 01/04/18 09:30 Alkaline Phosphatase 64 U/L (38-126) 01/04/18 09:30 Lactate Dehydrogenase 533 U/L (333-699) 12/25/17 11:20 Total Creatine Kinase 75 U/L (35-230) 12/25/17 11:20 Troponin I < 0.01 ng/mL 12/25/17 11:20 NT-Pro-B Natriuret Pep 2990 pg/mL (0-450) H 12/26/17 08:30 Total Protein 6.8 g/dL (5.8-8.3) 01/04/18 09:30 Albumin 3.7 g/dL (3.0-4.8) 01/04/18 09:30 Globulin 3.1 gm/dL 01/04/18 09:30 Albumin/Globulin Ratio 1.2 (1.1-1.8) 01/04/18 09:30 Arterial Blood Potassium 3.9 mmol/L (3.6-5.2) 12/31/17 10:50 Attending/Attestation - Attestation I have personally seen and examined this patient.: Yes I have fully participated in the care of the patient.: Yes I have reviewed all pertinent clinical information, including history, physical exam and plan: Yes Notes (Text): 01/04/18 17:05 72 year old female with past medical history of afib, COPD, CHF and anxiety who presented with shortness of breath. She was started on steroids for COPD exacerbation which improved. Recommended 2-4 days of additional steroids. She was also found to be hypoxic and started on oxygen. Smoking abstinence was emphasized to patient and family. She had delirium with fluctuation of mental status while in hospital which improved. Psychiatry was following and switched seroquel to prn. Patient is discharged to [facility]. Continue with oxygen. Continue with steroids 2-4 days. Hold coumadin tonight and repeat INR in am; adjust dose accordingly. Follow up with pmd upon discharge. Emphasized to both patient and family in length regarding smoking abstinence. Fabio Walters MD Hospitalist.
[2018-01-04] MEDS: diltiaZEM 120 mg/24 Hours CD Cap PO SCH (21:39)
[2018-01-04 21:40] VITALS: BP 121/86; PULSE 81
--- NOTE | 2018-01-05 14:29 | CP.PCM.PCO ---
Physician Communication Note - Physician Communication Note Physician Communication Note: pt was d/c
== END 2018-01-04 22:30 | disposition home or self-care (01) | DRG 190 ==
LOC: ED 10:24 → ERH 11:52 → 5RSO 17:28 → 5RNO 12-26 05:30 → OBSVTOIN 12-26 13:41 → 5RNO 12-27 21:50 → UNDODISIN 01-04 21:59
PROVIDERS: ADMIT Internal Medicine; ATTEND Internal Medicine
DX: J44.1 Chronic obstructive pulmonary disease with (acute) exacerbation (principal); I50.33 Acute on chronic diastolic (congestive) heart failure; E87.1 Hypo-osmolality and hyponatremia; F05 Delirium due to known physiological condition; I11.0 Hypertensive heart disease with heart failure; E83.42 Hypomagnesemia; I48.2 Chronic atrial fibrillation; F06.4 Anxiety disorder due to known physiological condition; F06.31 Mood disorder due to known physiological condition with depressive features; R09.02 Hypoxemia; D72.829 Elevated white blood cell count, unspecified; T38.0X5A Adverse effect of glucocorticoids and synthetic analogues, initial encounter; K21.9 Gastro-esophageal reflux disease without esophagitis; F17.210 Nicotine dependence, cigarettes, uncomplicated; Z99.81 Dependence on supplemental oxygen; Z79.01 Long term (current) use of anticoagulants

== ENCOUNTER 2018-01-24 13:45 | Inpatient (IN) | payer MEDICARE, OTHER ==
[2018-01-24 13:45] VITALS: PULSE 90
[2018-01-24 13:52] VITALS: BMI 24.9
--- NOTE | 2018-01-24 14:16 | ED PDOC ---
Arrival/HPI - General Chief Complaint: Respiratory Distress Time Seen by Provider: 01/24/18 14:11 Historian: Patient - History of Present Illness Narrative History of Present Illness (Text): 01/24/18 14:11 72 year old female whose past medical history includes CHF, and atrial fibrillation, who presents to the Emergency department complaining of intermittent shortness of breath for the past few weeks. Patient reports that she has tried Advair and and nebulizer treatment with minimal relief. Per patient she has presented to several hospitals for her symptoms with no resolution of symptoms. She is also experiencing intermittent coughs. Patient takes Lasix but notes having bilateral lower extremity edema. Of note patient takes Xanax. She has normal bowel movements, and denies any paroxysmal nocturnal dyspnea or orthopnea. Patient denies fevers, chills, chest pain, abdominal pain, nausea, vomiting, diarrhea, back pain, neck pain, headache, dizziness, or any other complaint. PMD: Sizer Hand: Time/Duration: > week Symptom Onset: Sudden Symptom Course: Intermittent Context: Home Past Medical History - Provider Review Nursing Documentation Reviewed: Yes - Infectious Disease Hx of Infectious Diseases: None - Cardiac Hx Cardiac Disorders: Yes (A Fib on coumadin) Hx Congestive Heart Failure: Yes Hx Hypertension: Yes - Pulmonary Hx Chronic Obstructive Pulmonary Disease (COPD): Yes - Neurological Hx Neurological Disorder: Yes (headaches) Hx Dizziness: Yes - HEENT Hx HEENT Disorder: No - Renal Hx Renal Disorder: No - Endocrine/Metabolic Hx Endocrine Disorders: No - Hematological/Oncological Hx Blood Disorders: No - Integumentary Hx Dermatological Disorder: No - Musculoskeletal/Rheumatological Hx Falls: Yes - Gastrointestinal Hx Gastrointestinal Disorders: Yes (reflux) - Genitourinary/Gynecological Hx Genitourinary Disorders: No - Psychiatric Hx Psychophysiologic Disorder: Yes Hx Anxiety: Yes Hx Depression: Yes Hx Substance Use: No - Surgical History Hx Cardiac Catheterization: Yes (X1) Hx Coronary Stent: Yes (unknown) Other/Comment: robotic left lower wedge resection and lymphaderectomy 06/2015, polypectomy, left lung nodule removed 2 yrs ago at [facility] benign - Anesthesia Hx Anesthesia: Yes Hx Anesthesia Reactions: No Hx Malignant Hyperthermia: No - Suicidal Assessment Feels Threatened In Home Enviroment: No Family/Social History - Physician Review Nursing Documentation Reviewed: Yes Family/Social History: No Known Family HX Smoking Status: Light Smoker < 10 Cigarettes Daily Hx Alcohol Use: No Hx Substance Use: No Allergies/Home Meds Allergies/Adverse Reactions: Allergies azithromycin [From Zithromax] Adverse Reaction (Intermediate, Verified 01/24/18 19:19) RASH "JUST DOES NOT WORK" Home Medications: Home Meds Medication Instructions Recorded Confirmed Pantoprazole Sodium [Protonix] 40 mg PO ACB 10/24/17 01/24/18 Review of Systems - Physician Review All systems were reviewed & negative as marked: Yes - Review of Systems Constitutional: absent: Fevers Respiratory: SOB, Cough Cardiovascular: absent: Chest Pain, Orthopnea Gastrointestinal: absent: Abdominal Pain, Constipation, Diarrhea, Nausea, Vomiting Genitourinary Female: absent: Dysuria Musculoskeletal: absent: Back Pain, Neck Pain Neurological: absent: Headache, Dizziness Physical Exam Vital Signs Reviewed: Yes Vital Signs Temp Pulse Resp BP Pulse Ox 01/24/18 14:02 98.3 F 70 18 158/57 H 95 Temperature: Afebrile Blood Pressure: Hypertensive Pulse: Regular Respiratory Rate: Normal Appearance: Positive for: Uncomfortable Mental Status: Positive for: Alert and Oriented X 3 - Systems Exam Head: Present: Atraumatic, Normocephalic Pupils: Present: PERRL Extroacular Muscles: Present: EOMI Conjunctiva: Present: Normal Mouth: Present: Moist Mucous Membranes Neck: Present: Normal Range of Motion Respiratory/Chest: Present: Clear to Auscultation, Good Air Exchange, Decreased Breath Sounds (diminished breath sounds bilaterally), Tachypneic. No: Respiratory Distress, Accessory Muscle Use Cardiovascular: Present: Regular Rate and Rhythm, Normal S1, S2. No: Murmurs Abdomen: No: Tenderness, Distention, Peritoneal Signs Back: Present: Normal Inspection Upper Extremity: Present: Normal Inspection. No: Cyanosis, Edema Lower Extremity: Present: Normal Inspection, Edema (+2 bilateral pitting edema) Neurological: Present: GCS=15, CN II-XII Intact, Speech Normal Skin: Present: Warm, Dry, Normal Color. No: Rashes Psychiatric: Present: Alert, Oriented x 3, Normal Insight, Normal Concentration Medical Decision Making ED Course and Treatment: Impression: 72 year old female complaining of intermittent shortness of breath for the past few weeks. Differential Diagnosis included but are not limited to: COPD exacerbation CHF exacerbation Pneumonia Sepsis Plan: -- VBG -- EKG -- Duonebs -- Solu-Medrol -- Urinalysis -- Bipap -- Chest X-ray -- Labs -- Reassess and disposition Prior Visits: Notes and results from previous visits were reviewed. Progress Notes: 01/24/2018 Patient tolerating BiPap well. CXR reviewed with no acute pulmonary infiltrates visualized. Case endorsed to Dr. Sparrow(hospitalist) who agrees patient does not seem to be fluid overloaded. - Lab Interpretations I have reviewed the lab results: Yes - RAD Interpretation Narrative RAD Interpretations (Text): 01/24/18 Chest X-ray: Dictator : Hayes Qureshi MD IMPRESSION: No active disease. Radiology Orders: 01/24/18 14:13 CHEST PORTABLE [RAD] Stat Business Banking Manager: Radiologist - EKG Interpretation EKG Interpretation (Text): 01/24/18 13:57 EKG shows irregularly irregular rate consistent with atrial fibrillation at 82 BPM. Digitalis effect seen diffusely. Interpreted by me. Interpreted by ED Physician: Yes Type: 12 lead EKG - Scribe Statement The provider has reviewed the documentation as recorded by the Scribe Pranav Vilchis Provider Scribe Attestation: All medical record entries made by the Scribe were at my direction and personally dictated by me. I have reviewed the chart and agree that the record accurately reflects my personal performance of the history, physical exam, medical decision making, and the department course for this patient. I have also personally directed, reviewed, and agree with the discharge instructions and disposition. Disposition/Present on Arrival - Present on Arrival Any Indicators Present on Arrival: No History of DVT/PE: No History of Uncontrolled Diabetes: No Urinary Catheter: No History Surgical Site Infection Following: None - Disposition Have Diagnosis and Disposition been Completed?: Yes Diagnosis: COPD exacerbation Disposition: HOSPITALIZED Disposition Time: 13:45 Patient Plan: Admission Patient Problems: Current Active Problems Problem Status Onset COPD exacerbation Acute Condition: STABLE
[2018-01-24] MEDS ORDERED: Albuterol-Ipratrop 3 mg / 0.5 (3 ml) UD IH STA (15:04)
[2018-01-24 15:11] LABS: BASO # 0.01 K/mm3 (0.0-2.0); BASO % 0.1 % (0.0-3.0); EOS % 0.1 % (1.5-5.0); GRAN # 8.96 (1.4-6.5); GRAN % 86.1 % (50.0-68.0); LYMPH # 0.9 (1.2-3.4); LYMPH % 8.3 % (22.0-35.0); MEAN CELL VOLUME 89.5 fl (80.0-105.0); MEAN CORPUSCULAR HEMOGLOBIN 29.4 pg (25.0-35.0); MEAN CORPUSCULAR HGB CONC 32.9 g/dl (31.0-37.0); MEAN PLATELET VOLUME 8.9 fl (7.0-11.0); MONO # 0.6 (0.1-0.6); MONO % 5.4 % (1.0-6.0); RBC 4.08 10^6/uL (3.5-6.1); RED CELL DISTRIBUTION WIDTH 14.8 % (11.5-14.5); WHITE BLOOD COUNT 10.4 10^3/uL (4.5-11.0)
--- NOTE | 2018-01-24 15:14 | RAD ---
Date of service: 01/24/2018 HISTORY: sob COMPARISON: 01/03/2018 FINDINGS: LUNGS: No active pulmonary disease. PLEURA: No significant pleural effusion identified, no pneumothorax apparent. CARDIOVASCULAR: Aortic calcifications Normal cardiac size. No pulmonary vascular congestion. OSSEOUS STRUCTURES: No significant abnormalities. VISUALIZED UPPER ABDOMEN: Normal. OTHER FINDINGS: None. IMPRESSION: No active disease.
[2018-01-24 15:24] LABS: PARTIAL THROMBOPLASTIN TIME 51.6 Seconds (25.1-36.5)
[2018-01-24 15:27] LABS: ALB/GLOB RATIO 1.5 (1.1-1.8); ALBUMIN 3.9 g/dL (3.0-4.8); ALT/SGPT 43 U/L (7-56); AST/SGOT 27 U/L (14-36); BLOOD UREA NITROGEN 7 mg/dL (7-21); CALCIUM 9.6 mg/dL (8.4-10.5); GFR NON-AFRICAN AMERICAN > 60
[2018-01-24 15:30] LABS: B-TYPE NATRIURETIC PEPTIDE 7410 pg/mL (0-450)
[2018-01-24 15:35] LABS: VENOUS BLOOD GAS BASE EXCESS 2.2 mmol/L (0.0-2.0); VENOUS BLOOD GAS PO2 152 mm/Hg (30-55); VENOUS BLOOD PH 7.37 (7.32-7.43)
[2018-01-24 15:40] LABS: PROTHROMBIN TIME 44.7 SECONDS (9.4-12.5)
[2018-01-24 15:42] LABS: INR 3.82
[2018-01-24] MEDS ORDERED: Magnesium Sulfate 1 gm in D5W 1 GM/100 ML BAG IVPB ONE (17:25)
[2018-01-24 17:54] LABS: PH,URINE 6.5 (4.7-8.0); URINE BILIRUBIN NEGATIVE (NEGATIVE); URINE BLOOD NEGATIVE (NEGATIVE); URINE GLUCOSE (UA) NEGATIVE (NEGATIVE); URINE LEUKOCYTE ESTERASE TRACE Leu/uL (NEGATIVE); URINE PROTEIN NEGATIVE mg/dL (<30 mg/dL); URINE UROBILINOGEN 0.2 E.U./dL (<1 E.U./dL)
[2018-01-24 17:57] LABS: URINE APPEARANCE CLEAR (CLEAR)
--- NOTE | 2018-01-24 18:20 | CARD ---
APPROVED REPORT Date of service: 01/24/2018 EKG Measurement Heart [id number] <Conclusion> Atrial fibrillation ST & T wave abnormality, consider inferior ischemia or digitalis effect Abnormal ECG
[2018-01-24] MEDS ORDERED: Albuterol-Ipratrop 3 mg / 0.5 (3 ml) UD IH PRN (19:21)
[2018-01-24] MEDS: Budesonide 0.5 mg/2 ml Inhal Susp UD IH SCH (19:59)
[2018-01-24] MEDS: Arformoterol 15 mcg/2 ml Inh Sol IH SCH (19:59)
[2018-01-24] MEDS: Albuterol-Ipratrop 3 mg / 0.5 (3 ml) UD IH SCH ×2 (19:59→23:57)
[2018-01-24] MEDS ORDERED: Arformoterol 15 mcg/2 ml Inh Sol IH SCH (20:00)
--- NOTE | 2018-01-24 20:17 | CP.PCM.HP ---
<JohniMchael - Last Filed: 01/24/18 20:07> History of Present Illness - History of Present Illness History of Present Illness: Medicine H&P: John, PGY - 2 Chief Complaint: Shortness of breath HPI: 72 F with pertinent history of COPD, diastolic CHF, and A-Fib on Coumadin presents with "several years" duration of shortness of breath. Patient is very poor historian with anxiety. Patient did say that the shortness of breath has gotten worse in the past couple of days and that her nebulizer treatments have not helped. She further states that the last couple of days she has had more bilateral pedal edema than usual, despite taking her Rx'd lasix. Patient also reports taking a "low dose" of Coumadin after being advised to do so by Dr. Casas's nurse. When asked why she does not follow with a data analyst etl developer, she states that "Dr. Casas is a great doctor." Patient denies chest pain, dizziness, palpitations. She is requesting food and Xanax. Review of Systems: 12 point ROS obtained and negative except as per HPI Surgical Hx: Lipoma resection Medical Hx: COPD, Diastolic CHF (ECHO in May shows EF 55-60; RSVP 39), A- Fib on Coumadin, Anxiety, HTN Allergies: Azithromycin-rash Soc Hx: +Tobacco; Denies etoh and illicit drug use. Home Meds: Reviewed, as per MAR; will hold Coumadin Fam Hx: Non-contributory PCP: Dr. Casas Psychiatrist: Dr. Morrow Present on Admission - Present on Admission Any Indicators Present on Admission: No Past Patient History - Infectious Disease Hx of Infectious Diseases: None - Past Medical History & Family History Past Medical History?: Yes - Past Social History Smoking Status: Light Smoker < 10 Cigarettes Daily - CARDIAC Hx Cardiac Disorders: Yes (A Fib on coumadin) Hx Congestive Heart Failure: Yes Hx Hypertension: Yes - PULMONARY Hx Chronic Obstructive Pulmonary Disease (COPD): Yes - NEUROLOGICAL Hx Neurological Disorder: Yes (headaches) Hx Dizziness: Yes - HEENT Hx HEENT Problems: No - RENAL Hx Chronic Kidney Disease: No - ENDOCRINE/METABOLIC Hx Endocrine Disorders: No - HEMATOLOGICAL/ONCOLOGICAL Hx Blood Disorders: No - INTEGUMENTARY Hx Dermatological Problems: No - MUSCULOSKELETAL/RHEUMATOLOGICAL Hx Falls: Yes - GASTROINTESTINAL Hx Gastrointestinal Disorders: Yes (reflux) - GENITOURINARY/GYNECOLOGICAL Hx Genitourinary Disorders: No - PSYCHIATRIC Hx Psychophysiologic Disorder: Yes Hx Anxiety: Yes Hx Depression: Yes Hx Substance Use: No - SURGICAL HISTORY Hx Cardiac Catheterization: Yes (X1) Hx Coronary Stent: Yes (unknown) Other/Comment: robotic left lower wedge resection and lymphaderectomy 06/2015, polypectomy, left lung nodule removed 2 yrs ago at [facility] benign - ANESTHESIA Hx Anesthesia: Yes Hx Anesthesia Reactions: No Hx Malignant Hyperthermia: No Meds Allergies/Adverse Reactions: Allergies Allergy/AdvReac Type Severity Reaction Status Date / Time azithromycin [From Zithromax] AdvReac Intermediate RASH Verified 01/24/18 19:19 Physical Exam - Constitutional Appears: Non-toxic, Agitated - Head Exam Head Exam: ATRAUMATIC, NORMAL INSPECTION, NORMOCEPHALIC - Eye Exam Eye Exam: EOMI, Normal appearance, PERRL Pupil Exam: NORMAL ACCOMODATION, PERRL - ENT Exam ENT Exam: Mucous Membranes Moist, Normal Exam - Neck Exam Neck exam: Positive for: Normal Inspection - Respiratory Exam Respiratory Exam: Clear to Auscultation Bilateral, NORMAL BREATHING PATTERN - Cardiovascular Exam Cardiovascular Exam: Irregular Rhythm - GI/Abdominal Exam GI & Abdominal Exam: Normal Bowel Sounds, Soft. absent: Tenderness - Extremities Exam Extremities exam: Positive for: normal inspection, pedal edema (Mild 1+) - Back Exam Back exam: NORMAL INSPECTION - Neurological Exam Neurological exam: Alert, CN II-XII Intact, Normal Gait, Oriented x3, Reflexes Normal - Psychiatric Exam Psychiatric exam: Anxious, Normal Affect, Normal Mood - Skin Skin Exam: Dry, Intact, Normal Color, Warm Results - Vital Signs Recent Vital Signs: Last Vital Signs Temp 98.3 F 01/24/18 14:02 Pulse 77 01/24/18 20:05 Resp 17 01/24/18 15:17 BP 149/75 01/24/18 15:17 Pulse Ox 98 01/24/18 15:17 - Labs Result Diagrams: 01/24/18 15:00 01/24/18 15:00 Labs: Laboratory Results - last 24 hr 01/24/18 01/24/18 01/24/18 15:00 15:00 15:00 WBC 10.4 RBC 4.08 Hgb 12.0 D Hct 36.5 MCV 89.5 MCH 29.4 MCHC 32.9 RDW 14.8 H Plt Count 286 MPV 8.9 Gran % 86.1 H Lymph % (Auto) 8.3 L [place] % (Auto) 5.4 Eos % (Auto) 0.1 L Baso % (Auto) 0.1 Gran # 8.96 H Lymph # (Auto) 0.9 L [place] # (Auto) 0.6 Eos # (Auto) 0.0 Baso # (Auto) 0.01 PT 44.7 H INR 3.82 H* APTT 51.6 H pO2 152 H VBG pH 7.37 VBG pCO2 49.0 VBG HCO3 28.3 H VBG Total CO2 29.8 H VBG O2 Sat (Calc) 99.3 H VBG Base Excess 2.2 H VBG Potassium 4.1 Sodium 132.0 Chloride 98.0 Glucose 115 H Lactate 2.1 FiO2 21.0 Potassium Carbon Dioxide Anion Gap BUN Creatinine Est GFR ( Amer) Est GFR (Non-Af Amer) Random Glucose Calcium Magnesium Total Bilirubin AST ALT Alkaline Phosphatase NT-Pro-B Natriuret Pep Total Protein Albumin Globulin Albumin/Globulin Ratio Venous Blood Potassium 4.1 Urine Color Urine Appearance Urine pH Ur Specific [place] Urine Protein Urine Glucose (UA) Urine Ketones Urine Blood Urine Nitrate Urine Bilirubin Urine Urobilinogen Ur Leukocyte Esterase Urine RBC Urine WBC Ur Epithelial Cells 01/24/18 01/24/18 15:00 17:20 WBC RBC Hgb Hct MCV MCH MCHC RDW Plt Count MPV Gran % Lymph % (Auto) [place] % (Auto) Eos % (Auto) Baso % (Auto) Gran # Lymph # (Auto) [place] # (Auto) Eos # (Auto) Baso # (Auto) PT INR APTT pO2 VBG pH VBG pCO2 VBG HCO3 VBG Total CO2 VBG O2 Sat (Calc) VBG Base Excess VBG Potassium Sodium 134 Chloride 97 L Glucose Lactate FiO2 Potassium 3.9 Carbon Dioxide 28 Anion Gap 13 BUN 7 Creatinine 0.6 L Est GFR ( Amer) > 60 Est GFR (Non-Af Amer) > 60 Random Glucose 115 H Calcium 9.6 Magnesium 1.7 Total Bilirubin 0.3 AST 27 ALT 43 Alkaline Phosphatase 70 NT-Pro-B Natriuret Pep 7410 H Total Protein 6.5 Albumin 3.9 Globulin 2.6 Albumin/Globulin Ratio 1.5 Venous Blood Potassium Urine Color yellow Urine Appearance Clear Urine pH 6.5 Ur Specific [place] 1.010 Urine Protein Negative Urine Glucose (UA) Negative Urine Ketones Negative Urine Blood Negative Urine Nitrate Negative Urine Bilirubin Negative Urine Urobilinogen 0.2 Ur Leukocyte Esterase Trace H Urine RBC TEST NOT PERFORMED Urine WBC 1 - 3 Ur Epithelial Cells 3 - 4 Assessment & Plan - Assessment and Plan (Free Text) Assessment: 72 F with pertinent medical history of CHF, COPD, and A Fib on coumadin presenting with shortness of breath; labs also reveal supratherapeutic coumadin. Patient's BNP is elevated more than 2X previous visits, and CXR reveals bilateral pulmonary congestion. Furthermore, VBG reveals unremarkable CO2 levels. Utilizing this information, patient's sob seem to be 2/2 CHF. However, patient is satting well on RA, chest exam is CTAB, and pedal edema is insignificant. At this time, given this information, it appears that patient is having a mild CHF exacerbation complicated by her anxiety. Plan Shortness of Breath, likely 2/2 combination of CHF Exacerbation and Underlying COPD - Admit to tele; O2 NC PRN; get patient oob prn; vitals q6h - Duonebs PRN and NORA; Lasix 20 BID for now; continue home brovana, pulmicort, prednisone po - EKG Stat, tropes X 3, TSH, ECHO; CXR in AM - No IV steroids needed at this time. Keep Mg > 2.0, K+ > 4.0 Supratherapeutic INR - Hold home coumadin - INR Daily Pulmonary HTN, likely 2/2 COPD - ECHO Hx Atrial Fibrillation - Obtain dig level, if ok, continue with dig tomorrow; Continue cardizem; Hold Warfarin until INR 2.5-3 - Obtain daily INR Hx CHF - As above Hx COPD - As above Hx HTN - Continue lopressor, zestril Hx Anxiety - Continue sertraline, ativan, seroquel Hx Tobacco Abuse - Advised cessation - Continue nicotine patch GI/DVT PPX - Protonix/SCD (Hold chemical DVT PPX in light of supratherapeutic INR) <Mak Sparrow - Last Filed: 01/25/18 07:52> Results - Vital Signs Recent Vital Signs: Last Vital Signs Temp 97.4 F L 01/25/18 06:00 Pulse 82 01/25/18 06:00 Resp 20 01/25/18 06:00 BP 162/77 H 01/25/18 06:00 Pulse Ox 97 01/25/18 06:00 - Labs Result Diagrams: 01/25/18 05:15 01/25/18 05:15 Labs: Laboratory Results - last 24 hr 01/24/18 01/24/18 01/24/18 15:00 15:00 15:00 WBC 10.4 RBC 4.08 Hgb 12.0 D Hct 36.5 MCV 89.5 MCH 29.4 MCHC 32.9 RDW 14.8 H Plt Count 286 MPV 8.9 Gran % 86.1 H Lymph % (Auto) 8.3 L [place] % (Auto) 5.4 Eos % (Auto) 0.1 L Baso % (Auto) 0.1 Gran # 8.96 H Lymph # (Auto) 0.9 L [place] # (Auto) 0.6 Eos # (Auto) 0.0 Baso # (Auto) 0.01 PT 44.7 H INR 3.82 H* APTT 51.6 H pO2 152 H VBG pH 7.37 VBG pCO2 49.0 VBG HCO3 28.3 H VBG Total CO2 29.8 H VBG O2 Sat (Calc) 99.3 H VBG Base Excess 2.2 H VBG Potassium 4.1 Sodium 132.0 Chloride 98.0 Glucose 115 H Lactate 2.1 FiO2 21.0 Potassium Carbon Dioxide Anion Gap BUN Creatinine Est GFR ( Amer) Est GFR (Non-Af Amer) Random Glucose Calcium Phosphorus Magnesium Total Bilirubin AST ALT Alkaline Phosphatase Troponin I NT-Pro-B Natriuret Pep Total Protein Albumin Globulin Albumin/Globulin Ratio Venous Blood Potassium 4.1 Urine Color Urine Appearance Urine pH Ur Specific [place] Urine Protein Urine Glucose (UA) Urine Ketones Urine Blood Urine Nitrate Urine Bilirubin Urine Urobilinogen Ur Leukocyte Esterase Urine RBC Urine WBC Ur Epithelial Cells Digoxin 01/24/18 01/24/18 01/24/18 15:00 17:20 19:55 WBC RBC Hgb Hct MCV MCH MCHC RDW Plt Count MPV Gran % Lymph % (Auto) [place] % (Auto) Eos % (Auto) Baso % (Auto) Gran # Lymph # (Auto) [place] # (Auto) Eos # (Auto) Baso # (Auto) PT INR APTT pO2 VBG pH VBG pCO2 VBG HCO3 VBG Total CO2 VBG O2 Sat (Calc) VBG Base Excess VBG Potassium Sodium 134 Chloride 97 L Glucose Lactate FiO2 Potassium 3.9 Carbon Dioxide 28 Anion Gap 13 BUN 7 Creatinine 0.6 L Est GFR ( Amer) > 60 Est GFR (Non-Af Amer) > 60 Random Glucose 115 H Calcium 9.6 Phosphorus Magnesium 1.7 Total Bilirubin 0.3 AST 27 ALT 43 Alkaline Phosphatase 70 Troponin I < 0.01 NT-Pro-B Natriuret Pep 7410 H Total Protein 6.5 Albumin 3.9 Globulin 2.6 Albumin/Globulin Ratio 1.5 Venous Blood Potassium Urine Color yellow Urine Appearance Clear Urine pH 6.5 Ur Specific [place] 1.010 Urine Protein Negative Urine Glucose (UA) Negative Urine Ketones Negative Urine Blood Negative Urine Nitrate Negative Urine Bilirubin Negative Urine Urobilinogen 0.2 Ur Leukocyte Esterase Trace H Urine RBC TEST NOT PERFORMED Urine WBC 1 - 3 Ur Epithelial Cells 3 - 4 Digoxin 01/24/18 01/24/18 01/24/18 19:55 19:55 23:35 WBC RBC Hgb Hct MCV MCH MCHC RDW Plt Count MPV Gran % Lymph % (Auto) [place] % (Auto) Eos % (Auto) Baso % (Auto) Gran # Lymph # (Auto) [place] # (Auto) Eos # (Auto) Baso # (Auto) PT 41.6 H INR 3.56 H* APTT pO2 162 H VBG pH 7.32 VBG pCO2 53.0 VBG HCO3 27.3 VBG Total CO2 28.9 H VBG O2 Sat (Calc) 99.5 H VBG Base Excess 0.3 VBG Potassium 4.7 Sodium 132.0 Chloride 97.0 L Glucose 153 H Lactate 2.5 H FiO2 21.0 Potassium Carbon Dioxide Anion Gap BUN Creatinine Est GFR ( Amer) Est GFR (Non-Af Amer) Random Glucose Calcium Phosphorus Magnesium Total Bilirubin AST ALT Alkaline Phosphatase Troponin I < 0.01 NT-Pro-B Natriuret Pep Total Protein Albumin Globulin Albumin/Globulin Ratio Venous Blood Potassium 4.7 Urine Color Urine Appearance Urine pH Ur Specific [place] Urine Protein Urine Glucose (UA) Urine Ketones Urine Blood Urine Nitrate Urine Bilirubin Urine Urobilinogen Ur Leukocyte Esterase Urine RBC Urine WBC Ur Epithelial Cells Digoxin 01/24/18 01/25/18 01/25/18 23:35 05:15 05:15 WBC 8.2 D RBC 3.96 Hgb 11.4 L Hct 35.5 L MCV 89.6 MCH 28.8 MCHC 32.1 RDW 15.0 H Plt Count 269 MPV 8.8 Gran % 79.6 H Lymph % (Auto) 11.3 L [place] % (Auto) 9.1 H Eos % (Auto) 0.0 L Baso % (Auto) 0.0 Gran # 6.55 H Lymph # (Auto) 0.9 L [place] # (Auto) 0.8 H Eos # (Auto) 0.0 Baso # (Auto) 0.00 PT INR APTT pO2 60 H VBG pH 7.35 VBG pCO2 57.0 VBG HCO3 31.5 H VBG Total CO2 33.2 H VBG O2 Sat (Calc) 92.3 H VBG Base Excess 4.3 H VBG Potassium 4.3 Sodium 133.0 134 Chloride 97.0 L 97 L Glucose 183 H Lactate 2.0 FiO2 21.0 Potassium 4.3 Carbon Dioxide 31 Anion Gap 10 BUN 12 Creatinine 0.6 L Est GFR ( Amer) > 60 Est GFR (Non-Af Amer) > 60 Random Glucose 111 H Calcium 9.3 Phosphorus 4.4 Magnesium 1.9 Total Bilirubin 0.2 AST 25 ALT 41 Alkaline Phosphatase 61 Troponin I < 0.01 NT-Pro-B Natriuret Pep Total Protein 6.3 Albumin 3.6 Globulin 2.7 Albumin/Globulin Ratio 1.4 Venous Blood Potassium 4.3 Urine Color Urine Appearance Urine pH Ur Specific [place] Urine Protein Urine Glucose (UA) Urine Ketones Urine Blood Urine Nitrate Urine Bilirubin Urine Urobilinogen Ur Leukocyte Esterase Urine RBC Urine WBC Ur Epithelial Cells Digoxin 01/25/18 05:15 WBC RBC Hgb Hct MCV MCH MCHC RDW Plt Count MPV Gran % Lymph % (Auto) [place] % (Auto) Eos % (Auto) Baso % (Auto) Gran # Lymph # (Auto) [place] # (Auto) Eos # (Auto) Baso # (Auto) PT INR APTT pO2 VBG pH VBG pCO2 VBG HCO3 VBG Total CO2 VBG O2 Sat (Calc) VBG Base Excess VBG Potassium Sodium Chloride Glucose Lactate FiO2 Potassium Carbon Dioxide Anion Gap BUN Creatinine Est GFR ( Amer) Est GFR (Non-Af Amer) Random Glucose Calcium Phosphorus Magnesium Total Bilirubin AST ALT Alkaline Phosphatase Troponin I NT-Pro-B Natriuret Pep Total Protein Albumin Globulin Albumin/Globulin Ratio Venous Blood Potassium Urine Color Urine Appearance Urine pH Ur Specific [place] Urine Protein Urine Glucose (UA) Urine Ketones Urine Blood Urine Nitrate Urine Bilirubin Urine Urobilinogen Ur Leukocyte Esterase Urine RBC Urine WBC Ur Epithelial Cells Digoxin 2.8 H* Attending/Attestation - Attestation I have personally seen and examined this patient.: Yes I have fully participated in the care of the patient.: Yes I have reviewed all pertinent clinical information: Yes Notes (Text): 01/25/18 07:48 Patient was seen and examined with medical practice manager. 72 year old female with PMH of A fib on anticoagulation with Warfarin,COPD, diastolic CHF, Anxiety, presenting with SOB and productive cough due to COPD exacerbation, also has mild acute on chronic diastolic CHF.Patient is very anxious, She was transiently on BIPAP in ER , but wheezing and dyspnea has improved , BIPAP is discontinued. COPD Exacerbation, improving, continue Neb/steroid Acute on chronic diastolic CHF, on IV lasix, will monitor BUN and creatinin, ELevated INR, will hold warfarin and will repeat INR. Severe anxiety, continue home zoloft ativan , we will get Psychiatry evaluation. 01/25/18 07:52
[2018-01-24 20:18] LABS: VENOUS BLOOD GAS BASE EXCESS 0.3 mmol/L (0.0-2.0); VENOUS BLOOD GAS PO2 162 mm/Hg (30-55); VENOUS BLOOD PH 7.32 (7.32-7.43)
[2018-01-24 21:02] LABS: PROTHROMBIN TIME 41.6 SECONDS (9.4-12.5)
[2018-01-24 21:03] LABS: INR 3.56
[2018-01-24] MEDS: diltiaZEM 120 mg/24 Hours CD Cap PO SCH (21:21)
[2018-01-24] MEDS ORDERED: Pneumococcal 23-Valent Vaccine IM ONE (23:20)
[2018-01-24] MEDS ORDERED: Influenza Vaccine 60 mcg/0.5 mL SYR (4YR UP) IM ONE (23:20)
[2018-01-25 00:10] LABS: VENOUS BLOOD GAS BASE EXCESS 4.3 mmol/L (0.0-2.0); VENOUS BLOOD GAS PO2 60 mm/Hg (30-55); VENOUS BLOOD PH 7.35 (7.32-7.43)
[2018-01-25 06:33] LABS: GRAN # 6.55 (1.4-6.5); GRAN % 79.6 % (50.0-68.0); HEMOGLOBIN 11.4 g/dL (12.0-16.0); LYMPH # 0.9 (1.2-3.4); LYMPH % 11.3 % (22.0-35.0); MEAN CELL VOLUME 89.6 fl (80.0-105.0); MEAN CORPUSCULAR HEMOGLOBIN 28.8 pg (25.0-35.0); MEAN CORPUSCULAR HGB CONC 32.1 g/dl (31.0-37.0); MEAN PLATELET VOLUME 8.8 fl (7.0-11.0); MONO # 0.8 (0.1-0.6); MONO % 9.1 % (1.0-6.0); RBC 3.96 10^6/uL (3.5-6.1); WHITE BLOOD COUNT 8.2 10^3/uL (4.5-11.0)
[2018-01-25] MEDS: Pantoprazole 40 mg EC Tab PO SCH (07:08)
[2018-01-25 07:34] LABS: TROPONIN I < 0.01 ng/mL
[2018-01-25] MEDS: Budesonide 0.5 mg/2 ml Inhal Susp UD IH SCH ×2 (07:35→20:57)
[2018-01-25] MEDS: Albuterol-Ipratrop 3 mg / 0.5 (3 ml) UD IH SCH ×4 (07:35→20:53)
[2018-01-25] MEDS: Arformoterol 15 mcg/2 ml Inh Sol IH SCH (07:35)
[2018-01-25 07:39] LABS: ALB/GLOB RATIO 1.4 (1.1-1.8); ALBUMIN 3.6 g/dL (3.0-4.8); ALT/SGPT 41 U/L (7-56); AST/SGOT 25 U/L (14-36); BLOOD UREA NITROGEN 12 mg/dL (7-21); CALCIUM 9.3 mg/dL (8.4-10.5); GFR NON-AFRICAN AMERICAN > 60
--- NOTE | 2018-01-25 09:16 | RAD ---
Date of service: 01/25/2018 HISTORY: ? CHF exacerbation progression COMPARISON: 01/24/2018 FINDINGS: LUNGS: No active pulmonary disease. PLEURA: No significant pleural effusion identified, no pneumothorax apparent. CARDIOVASCULAR: Aortic calcification Normal cardiac size. No pulmonary vascular congestion. OSSEOUS STRUCTURES: No significant abnormalities. VISUALIZED UPPER ABDOMEN: Normal. OTHER FINDINGS: None. IMPRESSION: No active disease.
[2018-01-25] MEDS ORDERED: MethylPREDNISolone 40 mg Vial IVP SCH (11:00)
[2018-01-25 11:01] LABS: ARTERIAL BLOOD GAS HCO3 29.8 mmol/L (21-28); ARTERIAL BLOOD GAS O2 SAT 98.8 % (95-98); ARTERIAL BLOOD GAS PCO2 68 mm/Hg (35-45); ARTERIAL BLOOD GAS PH 7.25 (7.35-7.45); ARTERIAL BLOOD GAS TCO2 31.9 mmol.L (22-28)
[2018-01-25 11:25] LABS: ALB/GLOB RATIO 1.5 (1.1-1.8); ALBUMIN 4.3 g/dL (3.0-4.8); ALT/SGPT 44 U/L (7-56); AST/SGOT 29 U/L (14-36); BLOOD UREA NITROGEN 12 mg/dL (7-21); CALCIUM 9.7 mg/dL (8.4-10.5); GFR NON-AFRICAN AMERICAN > 60
--- NOTE | 2018-01-25 11:29 | PCM.RRT ---
<Nathanael Travis - Last Filed: 01/25/18 12:12> TEST KITCHEN HOME ECONOMIST Nurse Assessment - Situation Date: 01/25/18 Time TEST K[employer] ECONOMIST was called: 10:48 TEST K[employer] ECONOMIST Responder Arrival Time: 10:49 TEST [employer] ECONOMIST Location:: [address] [place] [address] Room Number: 267 bed2 [employer] ECONOMIST Reason for Call: Respiratory Distress TEST K[employer] HOME ECONOMIST Called By: RN - IV IV Inserted during TEST KITCHEN HOME ECONOMIST?: No - Respiratory Received Nebulizer Treatments:: Yes (in progress) Was the Patient Ventilated with Bag/Mask 100% O2?: No Secretions Suctioned?: No Was the Patient Intubated?: No (BIPAP initiated) Was the Patient Placed on a Ventilator?: No - Medication Medications Administered During [employer] ECONOMIST: Lasix 40mg IVP. BIPAP Implemented - Diagnostic Test Ordered EKG: Yes Chest X-Ray: Yes CT Scan: No - Stat Labs Ordered [employer] K[employer] ECONOMIST Stat Labs Ordered: CBC, BMP, TROPONIN, ABG CPR started during TEST KITCHEN HOME ECONOMIST?: No - Vital Signs Vital Sign: Rapid Response Vital Sign Blood Pressure 172/114 Pulse Rate 115 Respiratory Rate 35 Temperature 97.8 F Oxygen Saturation 99 - Finger Stick Blood Glucose Finger Stick Blood Glucose: 110 - Time TEST K[employer]EN HOME ECONOMIST Ended Time TEST K[employer]EN HOME ECONOMIST Ended: 11:07 - Vital Signs at end of TEST K[employer] HOME ECONOMIST Vital Signs at end of TEST K[employer] HOME ECONOMIST: Rapid Response End Vital Sign Blood Pressure 170/96 Pulse Rate 87 Respiratory Rate 33 Temperature 97.8 F O2 Sat by Pulse Oximetry 99 - Recommendations Notifications: Attending Physician, Consultations I.Reason for TEST KITCHEN HOME ECONOMIST - A) Acute Change in Patient: (Select all that apply): Staff member or family is worried about patient, Acute change in SpO2 less - Neurological Status (Select all that apply): Verbal, Follows Commands - Respiratory Oxygen Delivery Method: Non Rebreather @% - Constitutional Appears: In Acute Distress, Unkempt - Head Head Exam: ATRAUMATIC, NORMOCEPHALIC - Respiratory Exam Respiratory Exam: Accessory Muscle Use, Rhonchi (worsening coarse breath sounds b/l), Wheezes (worsening b/l end expiratory wheezes), Respiratory Distress - Cardiovascular Exam Cardiovascular Exam: Tachycardia. absent: Gallop, Rubs Plan - Assessment of Findings&Treatment Plan Rapid response called. Stat CBC, CMP, ABG shock panel, CXR, EKG, troponins obtained ICU consulted ABG c/w worsening hypercapnic respiratory failure Will admit to ICU and place on bipap with close monitoring Case discussed with Dr. Lombardo who agrees to ICU admission <[email or web address] - Last Filed: 01/26/18 14:23> TEST K[employer] ECONOMIST Nurse Assessment - Vital Signs Vital Sign: Rapid Response Vital Sign Blood Pressure 172/114 Pulse Rate 115 Respiratory Rate 35 Temperature 97.8 F Oxygen Saturation 99 - Vital Signs at end of TEST K[employer] ECONOMIST Vital Signs at end of TEST K[employer] ECONOMIST: Rapid Response End Vital Sign Blood Pressure 170/96 Pulse Rate 87 Respiratory Rate 33 Temperature 97.8 F O2 Sat by Pulse Oximetry 99 Attending/Attestation - Attestation I have personally seen and examined this patient.: Yes I have fully participated in the care of the patient.: Yes I have reviewed all pertinent clinical information, including history, physical exam and plan: Yes Notes (Text): 01/26/18 14:23 Please see progress note 01/25/18
[2018-01-25 11:36] LABS: TROPONIN I 0.02 ng/mL
[2018-01-25 12:10] LABS: GRAN # 9.29 (1.4-6.5); GRAN % 83.5 % (50.0-68.0); HEMOGLOBIN 12.2 g/dL (12.0-16.0); LYMPH # 0.8 (1.2-3.4); LYMPH % 6.8 % (22.0-35.0); MEAN CELL VOLUME 90.8 fl (80.0-105.0); MEAN CORPUSCULAR HEMOGLOBIN 29.5 pg (25.0-35.0); MEAN CORPUSCULAR HGB CONC 32.4 g/dl (31.0-37.0); MEAN PLATELET VOLUME 8.5 fl (7.0-11.0); MONO # 1.1 (0.1-0.6); MONO % 9.7 % (1.0-6.0); RBC 4.14 10^6/uL (3.5-6.1); RED CELL DISTRIBUTION WIDTH 15.1 % (11.5-14.5); WHITE BLOOD COUNT 11.1 10^3/uL (4.5-11.0)
[2018-01-25 12:12] LABS: INR 2.98; PROTHROMBIN TIME 35.1 SECONDS (9.4-12.5)
--- NOTE | 2018-01-25 12:21 | RAD ---
Date of service: 01/25/2018 HISTORY: rapid response COMPARISON: 01/25/2018 FINDINGS: LUNGS: No active pulmonary disease. PLEURA: No significant pleural effusion identified, no pneumothorax apparent. CARDIOVASCULAR: Aortic calcification Normal cardiac size. No pulmonary vascular congestion. OSSEOUS STRUCTURES: No significant abnormalities. VISUALIZED UPPER ABDOMEN: Normal. OTHER FINDINGS: None. IMPRESSION: No active disease.
[2018-01-25 13:09] LABS: ARTERIAL BLOOD GAS HCO3 32.1 mmol/L (21-28); ARTERIAL BLOOD GAS O2 SAT 99.4 % (95-98); ARTERIAL BLOOD GAS PCO2 53 mm/Hg (35-45); ARTERIAL BLOOD GAS PH 7.39 (7.35-7.45); ARTERIAL BLOOD GAS TCO2 33.7 mmol.L (22-28)
--- NOTE | 2018-01-25 13:09 | CARD ---
APPROVED REPORT Date of service: 01/25/2018 EKG Measurement Heart [id number] <Conclusion> Atrial fibrillation ST & T wave abnormality, consider inferolateral ischemia or digitalis effect Abnormal ECG
[2018-01-25] MEDS ORDERED: Digoxin 250 mcg (0.25 mg) Tab PO SCH (14:00)
[2018-01-25] MEDS: MethylPREDNISolone 40 mg Vial IVP SCH (14:49)
--- NOTE | 2018-01-25 14:51 | CP.PCM.PN ---
<Jr Silvestre - Last Filed: 01/25/18 15:36> Subjective - Date & Time of Evaluation Date of Evaluation: 01/25/18 Time of Evaluation: 07:00 - Subjective Subjective: Pt seen and examined this morning. Pt found to be in respiratory distress, and a rapid response was called. ABG showed that the pt was in respiratory acidosis. Pt was placed on BiPAP and transferred to the ICU Objective - Vital Signs/Intake and Output Vital Signs (last 24 hours): Temp Pulse Resp BP Pulse Ox 97.4 F L 77 48 H 145/89 86 L 01/25/18 06:00 01/25/18 13:47 01/25/18 12:30 01/25/18 12:00 01/25/18 12:30 Intake and Output: 01/25/18 01/25/18 06:59 18:59 Intake Total 240 Balance 240 - Medications Medications: Current Medications Albuterol/Ipratropium (Duoneb 3 Mg/0.5 Mg (3 Ml) Ud) 3 ml IH Q2H PRN PRN Reason: Shortness of Breath Albuterol/Ipratropium (Duoneb 3 Mg/0.5 Mg (3 Ml) Ud) 3 ml IH [id number] [facility] Last Admin: 01/25/18 11:11 Dose: 3 ml Budesonide (Pulmicort Respules) 0.5 mg IH [id number] [facility] Last Admin: 01/25/18 07:35 Dose: 0.5 mg Digoxin (Lanoxin) 0.25 mg PO 1400 [facility]A Diltiazem HCl (Cardizem Cd) 120 mg PO 2000 [facility] Last Admin: 01/24/18 21:21 Dose: 120 mg Furosemide (Lasix) 40 mg IVP Q12 [facility] Gabapentin (Neurontin) 400 mg PO DAILY [facility]; Protocol Last Admin: 01/25/18 10:00 Dose: Not Given Ceftriaxone Sodium (Rocephin 1 Gram Ivpb) 1 gm in 100 mls @ 100 mls/hr IVPB DAILY [facility]; Protocol Doxycycline Hyclate 100 mg/ (Sodium Chloride) 100 mls @ 100 mls/hr IVPB Q12 [facility]; Protocol Lisinopril (Zestril) 10 mg PO DAILY [facility] Last Admin: 01/25/18 09:28 Dose: 10 mg Lorazepam (Ativan) 0.5 mg PO TID [facility]; Protocol Last Admin: 01/25/18 10:00 Dose: Not Given Lorazepam (Ativan) 1 mg PO Q4H PRN; Protocol PRN Reason: Anxiety Last Admin: 01/24/18 21:26 Dose: 1 mg Methylprednisolone (Solu-Medrol) 40 mg IVP Q12H [facility] Metoprolol Tartrate (Lopressor) 25 mg PO BID [facility] Last Admin: 01/25/18 09:30 Dose: 25 mg Nicotine (Nicoderm Cq) 1 patch TD DAILY [facility] Last Admin: 01/25/18 09:52 Dose: 1 patch Pantoprazole Sodium (Protonix Ec Tab) 40 mg PO 0600 [facility] Last Admin: 01/25/18 07:08 Dose: 40 mg Quetiapine Fumarate (Seroquel) 25 mg PO QPM PRN; Protocol PRN Reason: Agitation Last Admin: 01/24/18 21:24 Dose: 25 mg Sertraline HCl (Zoloft) 100 mg PO BID [facility] Last Admin: 01/25/18 14:14 Dose: Not Given - Labs Labs: 01/25/18 12:00 01/25/18 11:12 PT 35.1 SECONDS (9.4-12.5) H 01/25/18 12:00 INR 2.98 01/25/18 12:00 APTT 51.6 Seconds (25.1-36.5) H 01/24/18 15:00 - Constitutional Appears: Non-toxic - Head Exam Head Exam: ATRAUMATIC, NORMAL INSPECTION, NORMOCEPHALIC - Eye Exam Eye Exam: EOMI - ENT Exam ENT Exam: Mucous Membranes Moist - Neck Exam Neck Exam: Full ROM - Respiratory Exam Respiratory Exam: Accessory Muscle Use, Respiratory Distress, NORMAL BREATHING PATTERN. absent: Wheezes - Cardiovascular Exam Cardiovascular Exam: JVD, RRR, +S1, +S2. absent: Diastolic murmur, Murmur - GI/Abdominal Exam GI & Abdominal Exam: Soft, Normal Bowel Sounds - Extremities Exam Extremities Exam: Full ROM. absent: Pedal Edema - Neurological Exam Neurological Exam: Alert, Awake, Oriented x3 - Psychiatric Exam Psychiatric exam: Normal Affect, Normal Mood - Skin Skin Exam: Dry, Intact, Normal Color, Warm Assessment and Plan - Assessment and Plan (Free Text) Assessment: 72 F with pertinent medical history of CHF, COPD, and A Fib on coumadin presenting with shortness of breath; labs also reveal supratherapeutic coumadin. Patient's BNP is elevated more than 2X previous visits, and CXR reveals bilateral pulmonary congestion. Furthermore, VBG reveals unremarkable CO2 levels. Utilizing this information, patient's sob seem to be 2/2 CHF. However, patient is satting well on RA, chest exam is CTAB, and pedal edema is insignificant. At this time, given this information, it appears that patient is having a mild CHF exacerbation complicated by her anxiety. Plan: Neuro - AOx3, continue to monitor Cardio Hx Atrial Fibrillation - Obtain dig level, if ok, continue with dig tomorrow; Continue cardizem; Hold Warfarin until INR 2.5-3 - Obtain daily INR Hx CHF - As above Hx HTN - Continue lopressor, zestril Digoxin Toxicity - Dig 3.56 - hold digoxin - repeat level tomorrow Respiratory Shortness of Breath, likely 2/2 combination of CHF Exacerbation and Underlying COPD - Admit to tele; O2 NC PRN; get patient oob prn; vitals q6h - Duonebs PRN and NORA; Lasix 20 BID for now; continue home brovana, pulmicort, prednisone po - EKG Stat, tropes X 3, TSH, ECHO; CXR in AM - No IV steroids needed at this time. Keep Mg > 2.0, K+ > 4.0 Pulmonary HTN, likely 2/2 COPD - ECHO Respiratory Acidosis - BiPAP Hx COPD - As above Hx Tobacco Abuse - Advised cessation - Continue nicotine patch GI - HHD Nephrology/ - strict I/Os - monitor electrolytes ID - WBC 11.1 - afebrile Heme/ Onc Supratherapeutic INR - Hold home coumadin - INR Daily Endocrine - maintain euglycemia Psyc Hx Anxiety - Continue sertraline, ativan, seroquel Ppx - Protonix - SCD Pt seen, examined, assessment and plan discussed with Dr Andrews Silvestre PGY1 Internal Medicine Resident <Mak Sparrow - Last Filed: 01/26/18 14:23> Objective - Vital Signs/Intake and Output Vital Signs (last 24 hours): Temp Pulse Resp BP Pulse Ox 98.6 F 84 32 H 150/74 99 01/26/18 04:00 01/26/18 11:41 01/26/18 11:40 01/26/18 11:41 01/26/18 11:40 Intake and Output: 01/26/18 01/26/18 06:59 18:59 Intake Total 200 Output Total 1050 Balance -850 - Medications Medications: Current Medications Acetaminophen (Tylenol 325mg Tab) 650 mg PO Q6H PRN PRN Reason: Headache Albuterol/Ipratropium (Duoneb 3 Mg/0.5 Mg (3 Ml) Ud) 3 ml IH Q2H PRN PRN Reason: Shortness of Breath Last Admin: 01/26/18 10:17 Dose: 3 ml Albuterol/Ipratropium (Duoneb 3 Mg/0.5 Mg (3 Ml) Ud) 3 ml IH [id number] [facility] Last Admin: 01/26/18 13:50 Dose: 3 ml Alprazolam (Xanax) 0.25 mg PO TID [facility]; Protocol Stop: 02/01/18 18:01 Last Admin: 01/26/18 11:00 Dose: 0.25 mg Budesonide (Pulmicort Respules) 0.5 mg IH [id number] [facility] Last Admin: 01/26/18 07:48 Dose: 0.5 mg Digoxin (Lanoxin) 0.25 mg PO 1400 [facility] Last Admin: 01/25/18 18:46 Dose: Not Given Diltiazem HCl (Cardizem Cd) 120 mg PO 2000 [facility] Last Admin: 01/25/18 20:41 Dose: 120 mg Furosemide (Lasix) 40 mg PO DAILY [facility] Last Admin: 01/26/18 11:00 Dose: 40 mg Gabapentin (Neurontin) 400 mg PO DAILY [facility]; Protocol Last Admin: 01/26/18 11:42 Dose: 400 mg Ceftriaxone Sodium (Rocephin 1 Gram Ivpb) 1 gm in 100 mls @ 100 mls/hr IVPB DAILY [facility]; Protocol Last Admin: 01/26/18 11:19 Dose: 100 mls/hr Doxycycline Hyclate 100 mg/ (Sodium Chloride) 100 mls @ 100 mls/hr IVPB Q12 [facility]; Protocol Last Admin: 01/26/18 11:09 Dose: 100 mls/hr Lidocaine HCl (Xylocaine 2%) 0 ea TOP BID [facility] Lisinopril (Zestril) 10 mg PO DAILY [facility] Last Admin: 01/26/18 11:00 Dose: 10 mg Lorazepam (Ativan) 1 mg PO Q4H PRN; Protocol PRN Reason: Anxiety Last Admin: 01/24/18 21:26 Dose: 1 mg Methylprednisolone (Solu-Medrol) 40 mg IVP Q12H [facility] Last Admin: 01/26/18 07:06 Dose: 40 mg Metoprolol Tartrate (Lopressor) 25 mg PO BID [facility] Last Admin: 01/26/18 11:41 Dose: 25 mg Nicotine (Nicoderm Cq) 1 patch TD DAILY [facility] Last Admin: 01/26/18 11:42 Dose: 1 patch Nystatin (Nystop Topical Powder) 0 gm TOP BID [facility] Pantoprazole Sodium (Protonix Ec Tab) 40 mg PO 0600 [facility] Last Admin: 01/26/18 07:07 Dose: 40 mg Quetiapine Fumarate (Seroquel) 25 mg PO QPM PRN; Protocol PRN Reason: Agitation Last Admin: 01/25/18 20:41 Dose: 25 mg Sertraline HCl (Zoloft) 100 mg PO BID [facility] Last Admin: 01/26/18 11:00 Dose: 100 mg Warfarin Sodium (Coumadin) 2.5 mg PO 1800 [facility]; Protocol - Labs Labs: 01/26/18 05:00 01/26/18 05:00 PT 35.1 SECONDS (9.4-12.5) H 01/25/18 12:00 INR 2.98 01/25/18 12:00 APTT 51.6 Seconds (25.1-36.5) H 01/24/18 15:00 Attending/Attestation - Attestation I have personally seen and examined this patient.: Yes I have fully participated in the care of the patient.: Yes I have reviewed all pertinent clinical information, including history, physical exam and plan: Yes Notes (Text): 01/26/18 14:19 Medical record note made by the resident after discussion with my direction and input after the patient was personally seen and examined by me. I have reviewed the chart and agree that the record accurately reflects by personal performance of the history, physical exam, data review, and medical decision-making, in the course for the patient. I have also personally directed the plan of care. 72 year old female with PMH of A fib on anticoagulation with Warfarin,COPD, diastolic CHF, Anxiety, presenting with SOB and productive cough due to COPD exacerbation, and acute on chronic diastolic CHF. Patient had rapid response today as she was found to be in Resp Distress.ABG showed hypercapnic Resp Acidosis. Patient was found to have elevated JVD, basal crackle and leg edema. Patient IV lasix dose is increased to 40 mg IV BID, Patient has been started on BIPAP and is transferred to ICU. Digoxin is on hold due to elevated digoxin level.
[2018-01-25] MEDS: cefTRIAXone 1 gm 1 GM/100 ML BAG IVPB SCH (14:53)
--- NOTE | 2018-01-25 17:10 | CARD ---
APPROVED REPORT Date of service: 01/25/2018 EXAM: Two-dimensional and M-mode echocardiogram with Doppler and color Doppler. INDICATION COPD 2D DIMENSIONS IVSd0.8 (0.7-1.1cm)LVDd3.9 (3.9-5.9cm) PWd0.9 (0.7-1.1cm)LVDs2.8 (2.5-4.0cm) FS (%) 27.6 %LVEF (%)54.2 (>50%) M-Mode DIMENSIONS Aortic Root3.20 (2.2-3.7cm)Aortic Cusp Exc.1.00 (1.5-2.0cm) Mitral Valve E/A ratio0.0 TDI E/Lateral E'0.0E/Medial E'0.0 LEFT VENTRICLE The left ventricle is normal size. There is normal left ventricular wall thickness. The left ventricular ejection fraction is within the normal range. RIGHT VENTRICLE The right ventricle is mildly dilated. There is normal right ventricular wall thickness. RV Systolic function is mildly reduced. ATRIA The left atrium size is normal. The right atrium size is normal. AORTIC VALVE The aortic valve is not well visualized. MITRAL VALVE Mitral regurgitation is mild. TRICUSPID VALVE There is mild to moderate tricuspid regurgitation. <Conclusion> A limited study The left ventricle is normal size. There is normal left ventricular wall thickness. The left ventricular ejection fraction is within the normal range. RV Systolic function is mildly reduced. There is mild to moderate tricuspid regurgitation. Mitral regurgitation is mild. The aortic valve is not well visualized and no doppler measures taken
[2018-01-25 20:02] LABS: ARTERIAL BLOOD GAS HCO3 32.8 mmol/L (21-28); ARTERIAL BLOOD GAS O2 SAT 100.3 % (95-98); ARTERIAL BLOOD GAS PCO2 53 mm/Hg (35-45); ARTERIAL BLOOD GAS TCO2 34.4 mmol.L (22-28)
[2018-01-25] MEDS: diltiaZEM 120 mg/24 Hours CD Cap PO SCH (20:41)
--- NOTE | 2018-01-25 20:45 | CP.PCM.CON ---
History of Present Illness - History of Present Illness History of Present Illness: CRITICAL CARE CONSULT NOTE FOR DR. LUIS F Amos PGY-1 72 y/o F with PMhx of COPD, diastolic HF, Afib on coumadin, history of extensive SOB, anxiety, admitted to floors for COPD exacerbation, acute on chronic chf exacerbation. Rapid response was called on the floor as patient was having severe dyspnea, wheezing and shortness of breath. Pt was using accessory muscles for respirations, and was in significant respiratory distress. She was admitted to the ICU for acute respiratory failure. She reported shortness of breath, and difficulty breathing, and was unable to answer questions during the episode. Denied other ROS besides as per HPI PMHx: COPD, HFpEF w/ mildly reduced RVEF, afib on coumadin, htn, anxiety All: azithromycin- rash PSH: lipoma resection SH: longtime smoker, denies alcohol/drug use Meds: per MAR Review of Systems - Review of Systems Review of Systems: per HPI Past Patient History - Infectious Disease Hx of Infectious Diseases: None - Past Medical History & Family History Past Medical History?: Yes - Past Social History Smoking Status: Current Some Days Smoker - CARDIAC Hx Cardiac Disorders: Yes (A Fib on coumadin) Hx Congestive Heart Failure: Yes Hx Hypertension: Yes - PULMONARY Hx Respiratory Disorders: Yes Hx Chronic Obstructive Pulmonary Disease (COPD): Yes - NEUROLOGICAL Hx Neurological Disorder: Yes (headaches) Hx Dizziness: Yes - HEENT Hx HEENT Problems: No - RENAL Hx Chronic Kidney Disease: No - ENDOCRINE/METABOLIC Hx Endocrine Disorders: No - HEMATOLOGICAL/ONCOLOGICAL Hx Blood Disorders: No - INTEGUMENTARY Hx Dermatological Problems: No - MUSCULOSKELETAL/RHEUMATOLOGICAL Hx Musculoskeletal Disorders: Yes Hx Falls: Yes - GASTROINTESTINAL Hx Gastrointestinal Disorders: Yes (reflux) - GENITOURINARY/GYNECOLOGICAL Hx Genitourinary Disorders: No - PSYCHIATRIC Hx Psychophysiologic Disorder: Yes Hx Anxiety: Yes Hx Depression: Yes Hx Substance Use: No - SURGICAL HISTORY Hx Surgeries: Yes Hx Cardiac Catheterization: Yes (X1) Hx Coronary Stent: Yes (unknown) Other/Comment: robotic left lower wedge resection and lymphaderectomy 06/2015, polypectomy, left lung nodule removed 2 yrs ago at [facility] benign - ANESTHESIA Hx Anesthesia: Yes Hx Anesthesia Reactions: No Hx Malignant Hyperthermia: No Meds Allergies/Adverse Reactions: Allergies Allergy/AdvReac Type Severity Reaction Status Date / Time azithromycin [From Zithromax] AdvReac Intermediate RASH Verified 01/24/18 19:19 - Medications Medications: Current Medications Acetaminophen (Tylenol 325mg Tab) 650 mg PO Q6H PRN PRN Reason: Headache Albuterol/Ipratropium (Duoneb 3 Mg/0.5 Mg (3 Ml) Ud) 3 ml IH Q2H PRN PRN Reason: Shortness of Breath Albuterol/Ipratropium (Duoneb 3 Mg/0.5 Mg (3 Ml) Ud) 3 ml IH [id number] [facility] Last Admin: 01/25/18 15:35 Dose: 3 ml Alprazolam (Xanax) 0.25 mg PO TID NORA; Protocol Stop: 02/01/18 18:01 Last Admin: 01/25/18 17:50 Dose: 0.25 mg Budesonide (Pulmicort Respules) 0.5 mg IH [id number] NORA Last Admin: 01/25/18 07:35 Dose: 0.5 mg Digoxin (Lanoxin) 0.25 mg PO 1400 [facility] Last Admin: 01/25/18 18:46 Dose: Not Given Diltiazem HCl (Cardizem Cd) 120 mg PO 2000 [facility] Last Admin: 01/24/18 21:21 Dose: 120 mg Furosemide (Lasix) 40 mg IVP Q12 NORA Gabapentin (Neurontin) 400 mg PO DAILY [facility]; Protocol Last Admin: 01/25/18 10:00 Dose: Not Given Ceftriaxone Sodium (Rocephin 1 Gram Ivpb) 1 gm in 100 mls @ 100 mls/hr IVPB DAILY [facility]; Protocol Last Admin: 01/25/18 14:53 Dose: 100 mls/hr Doxycycline Hyclate 100 mg/ (Sodium Chloride) 100 mls @ 100 mls/hr IVPB Q12 [facility]; Protocol Last Admin: 01/25/18 14:47 Dose: 100 mls/hr Lisinopril (Zestril) 10 mg PO DAILY [facility] Last Admin: 01/25/18 09:28 Dose: 10 mg Lorazepam (Ativan) 1 mg PO Q4H PRN; Protocol PRN Reason: Anxiety Last Admin: 01/24/18 21:26 Dose: 1 mg Methylprednisolone (Solu-Medrol) 40 mg IVP Q12H NORA Last Admin: 01/25/18 14:49 Dose: 40 mg Metoprolol Tartrate (Lopressor) 25 mg PO BID [facility] Last Admin: 01/25/18 17:50 Dose: 25 mg Nicotine (Nicoderm Cq) 1 patch TD DAILY [facility] Last Admin: 01/25/18 09:52 Dose: 1 patch Pantoprazole Sodium (Protonix Ec Tab) 40 mg PO 0600 [facility] Last Admin: 01/25/18 07:08 Dose: 40 mg Quetiapine Fumarate (Seroquel) 25 mg PO QPM PRN; Protocol PRN Reason: Agitation Last Admin: 01/24/18 21:24 Dose: 25 mg Sertraline HCl (Zoloft) 100 mg PO BID [facility] Last Admin: 01/25/18 17:50 Dose: 100 mg Physical Exam - Constitutional Appears: Well, Non-toxic, In Acute Distress - Head Exam Head Exam: NORMAL INSPECTION, NORMOCEPHALIC - Eye Exam Eye Exam: EOMI, Normal appearance - ENT Exam ENT Exam: Mucous Membranes Moist, Normal Exam - Neck Exam Neck exam: Positive for: Normal Inspection - Respiratory Exam Respiratory Exam: Wheezes - Cardiovascular Exam Cardiovascular Exam: REGULAR RHYTHM, +S1, +S2 - GI/Abdominal Exam GI & Abdominal Exam: Normal Bowel Sounds, Soft - Extremities Exam Extremities exam: Positive for: normal inspection. Negative for: calf tenderness - Back Exam Back exam: NORMAL INSPECTION - Neurological Exam Neurological exam: Alert, Oriented x3 - Psychiatric Exam Psychiatric exam: Anxious, Normal Affect - Skin Skin Exam: Dry, Intact, Warm Results - Vital Signs Recent Vital Signs: Last Vital Signs Temp 97.4 F L 01/25/18 16:00 Pulse 63 01/25/18 19:50 Resp 29 H 01/25/18 19:50 BP 159/93 H 01/25/18 19:20 Pulse Ox 100 01/25/18 19:50 - Labs Result Diagrams: 01/25/18 12:00 01/25/18 11:12 Labs: Laboratory Results - last 24 hr 01/24/18 01/24/18 01/24/18 19:55 23:35 23:35 WBC RBC Hgb Hct MCV MCH MCHC RDW Plt Count MPV Gran % Lymph % (Auto) [place] % (Auto) Eos % (Auto) Baso % (Auto) Gran # Lymph # (Auto) [place] # (Auto) Eos # (Auto) Baso # (Auto) PT 41.6 H INR 3.56 H* pCO2 pO2 60 H HCO3 ABG pH ABG Total CO2 ABG O2 Saturation ABG Base Excess ABG Potassium VBG pH 7.35 VBG pCO2 57.0 VBG HCO3 31.5 H VBG Total CO2 33.2 H VBG O2 Sat (Calc) 92.3 H VBG Base Excess 4.3 H VBG Potassium 4.3 Sodium 133.0 Chloride 97.0 L Glucose 183 H Lactate 2.0 FiO2 21.0 Inspiratory BiPAP Potassium Carbon Dioxide Anion Gap BUN Creatinine Est GFR ( Amer) Est GFR (Non-Af Amer) Random Glucose Calcium Phosphorus Magnesium Total Bilirubin AST ALT Alkaline Phosphatase Troponin I < 0.01 Total Protein Albumin Globulin Albumin/Globulin Ratio TSH 3rd Generation Arterial Blood Potassium Venous Blood Potassium 4.3 Digoxin 01/25/18 01/25/18 01/25/18 05:15 05:15 05:15 WBC 8.2 D RBC 3.96 Hgb 11.4 L Hct 35.5 L MCV 89.6 MCH 28.8 MCHC 32.1 RDW 15.0 H Plt Count 269 MPV 8.8 Gran % 79.6 H Lymph % (Auto) 11.3 L [place] % (Auto) 9.1 H Eos % (Auto) 0.0 L Baso % (Auto) 0.0 Gran # 6.55 H Lymph # (Auto) 0.9 L [place] # (Auto) 0.8 H Eos # (Auto) 0.0 Baso # (Auto) 0.00 PT INR pCO2 pO2 HCO3 ABG pH ABG Total CO2 ABG O2 Saturation ABG Base Excess ABG Potassium VBG pH VBG pCO2 VBG HCO3 VBG Total CO2 VBG O2 Sat (Calc) VBG Base Excess VBG Potassium Sodium 134 Chloride 97 L Glucose Lactate FiO2 Inspiratory BiPAP Potassium 4.3 Carbon Dioxide 31 Anion Gap 10 BUN 12 Creatinine 0.6 L Est GFR ( Amer) > 60 Est GFR (Non-Af Amer) > 60 Random Glucose 111 H Calcium 9.3 Phosphorus 4.4 Magnesium 1.9 Total Bilirubin 0.2 AST 25 ALT 41 Alkaline Phosphatase 61 Troponin I < 0.01 Total Protein 6.3 Albumin 3.6 Globulin 2.7 Albumin/Globulin Ratio 1.4 TSH 3rd Generation 0.50 Arterial Blood Potassium Venous Blood Potassium Digoxin 01/25/18 01/25/18 01/25/18 05:15 10:50 11:12 WBC RBC Hgb Hct MCV MCH MCHC RDW Plt Count MPV Gran % Lymph % (Auto) [place] % (Auto) Eos % (Auto) Baso % (Auto) Gran # Lymph # (Auto) [place] # (Auto) Eos # (Auto) Baso # (Auto) PT INR pCO2 68 H pO2 110.0 H HCO3 29.8 H ABG pH 7.25 L ABG Total CO2 31.9 H ABG O2 Saturation 98.8 H ABG Base Excess 0.8 ABG Potassium 4.2 VBG pH VBG pCO2 VBG HCO3 VBG Total CO2 VBG O2 Sat (Calc) VBG Base Excess VBG Potassium Sodium 136.0 136 Chloride 100.0 96 L Glucose 135 H Lactate 2.0 FiO2 32.0 Inspiratory BiPAP Potassium 4.5 Carbon Dioxide 31 Anion Gap 13 BUN 12 Creatinine 0.6 L Est GFR ( Amer) > 60 Est GFR (Non-Af Amer) > 60 Random Glucose 127 H Calcium 9.7 Phosphorus Magnesium Total Bilirubin 0.3 AST 29 ALT 44 Alkaline Phosphatase 70 Troponin I 0.02 D Total Protein 7.2 Albumin 4.3 Globulin 2.9 Albumin/Globulin Ratio 1.5 TSH 3rd Generation Arterial Blood Potassium 4.2 Venous Blood Potassium Digoxin 2.8 H* 01/25/18 01/25/18 01/25/18 12:00 12:00 13:00 WBC 11.1 H D RBC 4.14 Hgb 12.2 Hct 37.6 MCV 90.8 MCH 29.5 MCHC 32.4 RDW 15.1 H Plt Count 272 MPV 8.5 Gran % 83.5 H Lymph % (Auto) 6.8 L [place] % (Auto) 9.7 H Eos % (Auto) 0.0 L Baso % (Auto) 0.0 Gran # 9.29 H Lymph # (Auto) 0.8 L [place] # (Auto) 1.1 H Eos # (Auto) 0.0 Baso # (Auto) 0.00 PT 35.1 H INR 2.98 pCO2 53 H pO2 213.0 H HCO3 32.1 H ABG pH 7.39 ABG Total CO2 33.7 H ABG O2 Saturation 99.4 H ABG Base Excess 5.7 H ABG Potassium 3.3 L VBG pH VBG pCO2 VBG HCO3 VBG Total CO2 VBG O2 Sat (Calc) VBG Base Excess VBG Potassium Sodium 137.0 Chloride 101.0 Glucose 106 H Lactate 1.0 FiO2 50.0 Inspiratory BiPAP 14 Potassium Carbon Dioxide Anion Gap BUN Creatinine Est GFR ( Amer) Est GFR (Non-Af Amer) Random Glucose Calcium Phosphorus Magnesium Total Bilirubin AST ALT Alkaline Phosphatase Troponin I Total Protein Albumin Globulin Albumin/Globulin Ratio TSH 3rd Generation Arterial Blood Potassium 3.3 L Venous Blood Potassium Digoxin 01/25/18 19:55 WBC RBC Hgb Hct MCV MCH MCHC RDW Plt Count MPV Gran % Lymph % (Auto) [place] % (Auto) Eos % (Auto) Baso % (Auto) Gran # Lymph # (Auto) [place] # (Auto) Eos # (Auto) Baso # (Auto) PT INR pCO2 53 H pO2 160.0 H HCO3 32.8 H ABG pH 7.40 ABG Total CO2 34.4 H ABG O2 Saturation 100.3 H ABG Base Excess 6.5 H ABG Potassium 3.9 VBG pH VBG pCO2 VBG HCO3 VBG Total CO2 VBG O2 Sat (Calc) VBG Base Excess VBG Potassium Sodium 134.0 Chloride 98.0 Glucose 136 H Lactate 1.0 FiO2 35.0 Inspiratory BiPAP Potassium Carbon Dioxide Anion Gap BUN Creatinine Est GFR ( Amer) Est GFR (Non-Af Amer) Random Glucose Calcium Phosphorus Magnesium Total Bilirubin AST ALT Alkaline Phosphatase Troponin I Total Protein Albumin Globulin Albumin/Globulin Ratio TSH 3rd Generation Arterial Blood Potassium 3.9 Venous Blood Potassium Digoxin Assessment & Plan - Assessment and Plan (Free Text) Assessment: 72 y/o F admitted to ICU for hypercapnic respiratory failure. Pt intiated on BiPAP, with improvement in CO2 retention and pH Plan: Neuro/Psych: AxO x 3 No FND Reorient as necessary Optimize circadian rhythm Anxiety, likely contributing to SOB seroquel ativan xanax sertraline Cardiovascular: Normotensive Tachycardiac Maintain MAP >65 Maintain euvolemia Hypertension lisinopril metoprolol Atrial fibrillation diltiazem CHF exacerbation Lasix Cxray daily INR w/in normal limits Pulm Hypercapnic respiratory failure 2/2 anxiety vs COPD exacerbation On BiPAP rocephin/doxycycline Solumedrol [id number] Duoneb budesonide Repeat ABG after BiPAP trial GI: Soft/tender protonix for GI ppx /Renal Replete electrolytes prn I/Os ID Empiric coverage Rocephin Doxycycline GI/DVT: protonix/SCD Case seen, examined and discussed with attending physician, Dr. Lombardo.
--- NOTE | 2018-01-25 22:57 | CON ---
DATE: 01/25/2018 HISTORY OF PRESENT ILLNESS: Shortly, the patient is a 72-year-old female with reported history of CHF and atrial fibrillation. The patient was admitted on the medical site for evaluation of shortness of breath. Psych consult was called because the patient was on anxiolytics back home. This proposal writer attempted to evaluate the patient, but unfortunately the patient was in acute distress and rapid response was called. This proposal writer was not able to evaluate the patient, subsequently the patient was admitted to ICU unit. PHYSICAL EXAMINATION: VITAL SIGNS: Reviewed, respiration is 48, oxygen saturation is 86%. MEDICATIONS: Reviewed. The patient is on DuoNeb, Pulmicort, Rocephin, digoxin, Cardizem, Lasix, Neurontin, Zestril, Ativan, Solu-Medrol, Lopressor, Protonix, Seroquel as well as Zoloft. LABORATORY DATA: Reviewed. Leukocytosis 11.1. Coagulation reviewed. Blood gas reviewed. Chemistry reviewed. Urinalysis reviewed. Digoxin 2.8. ASSESSMENT AND PLAN: Considering the fact that this proposal writer was not able to evaluate the patient due to her condition, this proposal writer would recommend re-consult whenever the patient is doing better from the medical standpoint. Benzodiazepines should be very small dose in regard of other psychotropic medications such as Zoloft, it could be continued as of now. If it has no contraindication from the medical standpoint, agree with Seroquel 25 mg at nighttime as needed for agitation. In case of acute urgency or change in mental status or suicidality, call psychiatrist on-call. Meanwhile, if the patient will be improving, re-consult this proposal writer. Should you have any questions, give me a call back. Thank you very much for letting me participate in care of your patient. Shaila Mattson MD
[2018-01-26] MEDS: Albuterol-Ipratrop 3 mg / 0.5 (3 ml) UD IH SCH ×6 (00:22→21:30)
--- NOTE | 2018-01-26 00:41 | CON ---
DATE: 01/25/2018 HISTORY OF PRESENT ILLNESS: This is a 72-year-old lady with history of AFib, CHF, and COPD who initially presented to [facility] yesterday with some shortness of breath, which was getting progressively worse over the past couple of days and culminated with her respiratory distress and significant enough to seek medical attention. The patient was given nebulizer treatment; however, it did not help her. She denies chest pain. She denies nausea, vomiting, diarrhea, fever, or chills. She did, however, noticed that her bilateral pedal edema was more prominent than usual over the last couple of days. PAST MEDICAL HISTORY: COPD, diastolic CHF, and atrial fibrillation (the patient is on Coumadin). PAST SURGICAL HISTORY: The patient has lipoma resection. ALLERGIES: AZITHROMYCIN. SOCIAL HISTORY: No alcohol or illicit drug abuse. The patient is active smoker. FAMILY HISTORY: Noncontributory. HOME MEDICATIONS: Prednisone, Cardizem, warfarin, Zoloft, Seroquel, Protonix, metoprolol, lisinopril, digoxin, Lasix, Neurontin, Ativan, Pulmicort, and Brovana. CURRENT MEDICATIONS: Brovana, Pulmicort, digoxin, Cardizem, furosemide, Neurontin, lisinopril, Solu-Medrol 40 mg IV daily, nicotine patch, Protonix, and sertraline. REVIEW OF SYSTEMS: Review of 12-organ system other than mentioned in history of present illness is negative. PHYSICAL EXAMINATION: VITAL SIGNS: Heart rate 70, blood pressure 160/109, oxygen saturation 100% on FIO2 of . The patient is on BiPAP 14/6. She is pulling 400 tidal volume and her respiratory rate varies between 20 and 30. EARS, NOSE, AND THROAT: Head and neck atraumatic. LUNGS: Clear to auscultation bilaterally. No wheezes. No rales. No rhonchi. HEART: Regular rate and rhythm. S1 and S2 distant. ABDOMEN: Soft, nontender, and nondistended. MUSCULOSKELETAL: Trace bilateral pedal and ankle edema. NEUROLOGIC: The patient moves all extremities spontaneously. SKIN: moist. PSYCHIATRIC: The patient is alert, awake and oriented x3. LABORATORY DATA: ABG prior to BiPAP initiation pH of 7.25/68/110, lactic acid 2. WBC 11.1, hemoglobin 12.2, platelet count 272, and eosinophils 0. Chemistry: Sodium 136, potassium 4.5, chloride 96, carbon dioxide 31, BUN 12, creatinine 0.6, and glucose 127. AST 29, ALT 44, and total bilirubin 0.3. Troponin x3 negative with a left 0.02. Chest x-ray, no active pulmonary disease; however, some areas of emphysema and increased interstitial markings are seen. ASSESSMENT AND PLAN: This is a 72-year-old lady with history of chronic obstructive pulmonary disease, who was admitted to Intensive Care Unit with respiratory distress, most likely secondary to chronic obstructive pulmonary disease exacerbation with acute respiratory acidosis. The patient was put on bilevel positive airway pressure. We will continue with bronchodilators every 4 hours, steroid taper and antibiotics. We will repeat blood gas with an hour or two to ascertain improvement/resolution of acute respiratory acidosis. We have low threshold to intubation if her acute respiratory acidosis progresses. Blood culture, urine culture, and procalcitonin will be sent. Conservative fluid and oxygen management will be utilized. We will continue with GI prophylaxis. Her INR is within therapeutic limits. She is hemodynamically stable. Toñito Lombardo MD
--- NOTE | 2018-01-26 03:49 | CON ---
DATE: 01/25/2018 Patient in ICU 128, bed 1. REASON FOR CONSULTATION: Shortness of breath, atrial fibrillation, history of CHF, cardiomyopathy which had shown improvement, coronary artery disease. HISTORY OF PRESENT ILLNESS: A 72-year-old female who is a known case of chronic atrial fibrillation and COPD, history of CHF, cardiopathy which has improved, hypertension, admitted with the history that she is having shortness of breath for long time, but last one week shortness of breath has got worse. She also has some cough and expectoration. Denies chest pain or palpitations. The patient was admitted to our telemetry, and today she had rapid response because of respiratory distress with a hypercapnic respiratory distress, so she is transferred now in ICU and she is on BiPAP now. PAST MEDICAL HISTORY: Positive for atrial fibrillation on Coumadin, asthma, COPD, coronary artery disease, anxiety disorder, hypertension, was treated for CHF due to cardiomyopathy which has improved. PAST SURGICAL HISTORY: Significant for lung resection in 2014, polypectomy, she had left lung nodule resection. PERSONAL HISTORY: Denies drinking, but smokes less than 10 cigarettes a day. ALLERGIES: THE PATIENT IS ALLERGIC TO AZITHROMYCIN. MEDICATIONS AT HOME: The patient was on gabapentin 400 b.i.d., metoprolol tartrate 25 b.i.d., Protonix 40 daily, Zoloft 100 mg b.i.d. PREVIOUS CARDIAC WORKUP: The patient had stress test on 06/12/2016 that showed ischemia with ejection fraction of 37%. Following that, the patient had cardiac catheterization on 06/29/2016 that showed nonobstructive coronary artery disease, limited only to very distal diffuse LAD disease, no focal flow limiting stenosis, moderate degree of LV dysfunction, ejection fracture 35-40%, EDP was in the range of 20, no gradient across aortic valve was noted on pull back. Echo at that time had shown mild to moderate aortic stenosis, but on cardiac catheterization there was no gradient across the aortic valve. That time, the patient was recommended to treat medically including digoxin, diuretics, LADARIUS inhibitors, Coreg, Coumadin and follow up with a MUGA scan for ejection fraction. The patient had repeat echo on 06/02/2015 that showed ejection fraction 35%, mild to moderate aortic stenosis, and no gradient on the cath across the aortic valve. The repeat echo on 05/30/2017 showed ejection fraction of 55-60%, mild to moderate aortic stenosis, mild mitral regurgitation, mild to moderate tricuspid regurgitation, RV systolic pressure of 37. The patient had MUGA scan on 09/17/2017, MUGA showed ejection fraction of 56%. Normal RV. The patient had repeat echocardiogram today which showed normal LV function with ejection fraction of 55%. RV systolic function slightly reduced, mild mitral regurgitation, mild to moderate tricuspid regurgitation. REVIEW OF SYSTEMS: All the systems reviewed, positives mentioned in the history, others were negative. PHYSICAL EXAMINATION: VITAL SIGNS: Blood pressure 145/89, respirations 20, the patient is on BiPAP, patient is afebrile. HEENT: Head is normocephalic. Eyes: Pupils normal. Conjunctivae normal. Nose and throat normal. NECK: JVP is low. Carotids equal. THORAX: AP diameter increased consistent with COPD. LUNGS: Few expiratory wheezing sounds. Otherwise, no rales. CARDIOVASCULAR: S1 and S2. No rub. Irregular rhythm due to atrial fibrillation. ABDOMEN: Soft, no tenderness, no organomegaly. EXTREMITIES: No clubbing, no cyanosis. LABORATORY DATA: WBC 11.1, hemoglobin 12.2, hematocrit 37.6, platelets 272. Sodium 136, potassium 4.5, BUN 12, creatinine 0.6. AST and ALT normal. Troponin x2 negative. Total protein and albumin normal. on admission was 3.82, but today is 2.98 INR. Chest x-ray is clear, clear lungs. EKG showed atrial fibrillation, moderate rate, ST-T changes. DIAGNOSES: Include respiratory distress, exacerbation of chronic obstructive pulmonary disease, chronic atrial fibrillation, hypertension, coronary artery disease, nonobstructive type, limited only to left anterior descending distally. Echo today showed normal ejection fraction with LV, slightly reduced RV function, mild to moderate tricuspid regurgitation, hypertension, respiratory tract infection. No gradient across aortic valve is mentioned in the cardiac catheterization in the history, anxiety disorder. PLAN: The patient is on BiPAP, diltiazem CD 120 p.o. daily, doxycycline 100 mg IV every 12 hours, DuoNeb hand nebulizer therapy, furosemide 40 IV every 12 hour, metoprolol 25 b.i.d., gabapentin 400 mg daily, nicotine patch, Protonix 40 daily, Rocephin 1 g IV daily, Seroquel 25 mg p.o. p.r.n. p.m., methylprednisolone 40 mg IV every 12 hours, lisinopril 10 mg daily, Zoloft 100 b.i.d. We will follow with you closely. Mak Blake MD [facility] # [id number]
[2018-01-26 05:41] LABS: GRAN # 5.39 (1.4-6.5); GRAN % 74.8 % (50.0-68.0); HEMOGLOBIN 12.5 g/dL (12.0-16.0); LYMPH % 14.2 % (22.0-35.0); MEAN CELL VOLUME 90.1 fl (80.0-105.0); MEAN CORPUSCULAR HEMOGLOBIN 28.9 pg (25.0-35.0); MEAN CORPUSCULAR HGB CONC 32.1 g/dl (31.0-37.0); MONO # 0.8 (0.1-0.6); RBC 4.33 10^6/uL (3.5-6.1); WHITE BLOOD COUNT 7.2 10^3/uL (4.5-11.0)
[2018-01-26 05:49] LABS: ALB/GLOB RATIO 1.3 (1.1-1.8); ALBUMIN 3.6 g/dL (3.0-4.8); ALT/SGPT 46 U/L (7-56); AST/SGOT 25 U/L (14-36); BLOOD UREA NITROGEN 16 mg/dL (7-21); CALCIUM 9.3 mg/dL (8.4-10.5); GFR NON-AFRICAN AMERICAN > 60
[2018-01-26 06:43] LABS: ARTERIAL BLOOD GAS HCO3 34.2 mmol/L (21-28); ARTERIAL BLOOD GAS HEMOGLOBIN 10.7 g/dL (11.7-17.4); ARTERIAL BLOOD GAS O2 CAPACITY 14.9 mL/dl (16-24); ARTERIAL BLOOD GAS O2 CONTENT 14.6 ML/dl (15-23); ARTERIAL BLOOD GAS O2 SAT 98.3 % (95-98); ARTERIAL BLOOD GAS PCO2 54 mm/Hg (35-45); ARTERIAL BLOOD GAS PH 7.41 (7.35-7.45); ARTERIAL BLOOD GAS TCO2 35.9 mmol.L (22-28)
[2018-01-26] MEDS: MethylPREDNISolone 40 mg Vial IVP SCH ×2 (07:06→15:36)
[2018-01-26] MEDS: Pantoprazole 40 mg EC Tab PO SCH (07:07)
[2018-01-26] MEDS: Budesonide 0.5 mg/2 ml Inhal Susp UD IH SCH ×2 (07:48→21:30)
--- NOTE | 2018-01-26 08:35 | RAD ---
Date of service: 01/26/2018 HISTORY: ? CHF exacerbation progression COMPARISON: 01/25/2018 FINDINGS: LUNGS: No active pulmonary disease. PLEURA: No significant pleural effusion identified, no pneumothorax apparent. CARDIOVASCULAR: Minimal aortic calcification Normal cardiac size. No pulmonary vascular congestion. OSSEOUS STRUCTURES: No significant abnormalities. VISUALIZED UPPER ABDOMEN: Normal. OTHER FINDINGS: None. IMPRESSION: No active disease.
--- NOTE | 2018-01-26 09:04 | CP.PCM.PN ---
Subjective - Date & Time of Evaluation Date of Evaluation: 01/26/18 Time of Evaluation: 07:40 - Subjective Subjective: Patient seen and examined at bedside, resting comfortably OFF BIPAP, on 2LNC, no major complaints, having breakfast. Objective - Vital Signs/Intake and Output Vital Signs (last 24 hours): Temp Pulse Resp BP Pulse Ox 98.6 F 72 21 142/61 100 01/26/18 04:00 01/26/18 08:10 01/26/18 08:10 01/26/18 07:50 01/26/18 08:10 Intake and Output: 01/26/18 01/26/18 06:59 18:59 Intake Total 200 Output Total 1050 Balance -850 - Medications Medications: Current Medications Acetaminophen (Tylenol 325mg Tab) 650 mg PO Q6H PRN PRN Reason: Headache Albuterol/Ipratropium (Duoneb 3 Mg/0.5 Mg (3 Ml) Ud) 3 ml IH Q2H PRN PRN Reason: Shortness of Breath Albuterol/Ipratropium (Duoneb 3 Mg/0.5 Mg (3 Ml) Ud) 3 ml IH [id number] [facility] Last Admin: 01/26/18 07:48 Dose: 3 ml Alprazolam (Xanax) 0.25 mg PO TID [facility]; Protocol Stop: 02/01/18 18:01 Last Admin: 01/25/18 17:50 Dose: 0.25 mg Budesonide (Pulmicort Respules) 0.5 mg IH [id number] [facility] Last Admin: 01/26/18 07:48 Dose: 0.5 mg Digoxin (Lanoxin) 0.25 mg PO 1400 [facility] Last Admin: 01/25/18 18:46 Dose: Not Given Diltiazem HCl (Cardizem Cd) 120 mg PO 2000 [facility] Last Admin: 01/25/18 20:41 Dose: 120 mg Furosemide (Lasix) 40 mg PO DAILY [facility] Gabapentin (Neurontin) 400 mg PO DAILY [facility]; Protocol Last Admin: 01/25/18 10:00 Dose: Not Given Ceftriaxone Sodium (Rocephin 1 Gram Ivpb) 1 gm in 100 mls @ 100 mls/hr IVPB LEN LY [facility]; Protocol Last Admin: 01/25/18 14:53 Dose: 100 mls/hr Doxycycline Hyclate 100 mg/ (Sodium Chloride) 100 mls @ 100 mls/hr IVPB Q12 [facility]; Protocol Last Admin: 01/25/18 22:04 Dose: 100 mls/hr Lisinopril (Zestril) 10 mg PO DAILY [facility] Last Admin: 01/25/18 09:28 Dose: 10 mg Lorazepam (Ativan) 1 mg PO Q4H PRN; Protocol PRN Reason: Anxiety Last Admin: 01/24/18 21:26 Dose: 1 mg Methylprednisolone (Solu-Medrol) 40 mg IVP Q12H [facility] Last Admin: 01/26/18 07:06 Dose: 40 mg Metoprolol Tartrate (Lopressor) 25 mg PO BID [facility] Last Admin: 01/25/18 17:50 Dose: 25 mg Nicotine (Nicoderm Cq) 1 patch TD DAILY [facility] Last Admin: 01/25/18 09:52 Dose: 1 patch Pantoprazole Sodium (Protonix Ec Tab) 40 mg PO 0600 [facility] Last Admin: 01/26/18 07:07 Dose: 40 mg Quetiapine Fumarate (Seroquel) 25 mg PO QPM PRN; Protocol PRN Reason: Agitation Last Admin: 01/25/18 20:41 Dose: 25 mg Sertraline HCl (Zoloft) 100 mg PO BID [facility] Last Admin: 01/25/18 17:50 Dose: 100 mg Warfarin Sodium (Coumadin) 2.5 mg PO 1800 [facility]; Protocol - Labs Labs: 01/26/18 05:00 01/26/18 05:00 PT 35.1 SECONDS (9.4-12.5) H 01/25/18 12:00 INR 2.98 01/25/18 12:00 APTT 51.6 Seconds (25.1-36.5) H 01/24/18 15:00 - Constitutional Appears: Non-toxic, No Acute Distress - Head Exam Head Exam: NORMAL INSPECTION - Eye Exam Eye Exam: Normal appearance - ENT Exam ENT Exam: Mucous Membranes Moist - Respiratory Exam Respiratory Exam: Clear to Ausculation Bilateral, NORMAL BREATHING PATTERN - Cardiovascular Exam Cardiovascular Exam: REGULAR RHYTHM, +S1, +S2 - GI/Abdominal Exam GI & Abdominal Exam: Soft, Normal Bowel Sounds - Extremities Exam Extremities Exam: Normal Inspection - Neurological Exam Neurological Exam: Alert, Awake, Oriented x3 - Psychiatric Exam Psychiatric exam: Normal Affect - Skin Skin Exam: Normal Color, Warm Assessment and Plan - Assessment and Plan (Free Text) Assessment: Patient is 72yo female with PMHx COPD, diastolic HF, Afib on coumadin, smoking, anxiety, admitted for SOB and COPD exacerbation Currently afebrile BP stable, comfortable in NAD, AAOx3, doing well, OFF BIPAP, on 2LNC sat 95%, resting comfortably, having breakfast. Labs, imaging, chart reviewed CXR clear ABG with chronic resp acidosis, metabolic alkalosis COPD exacerbation Afib on Coumadin Hx smoking Diastolic CHF Recommend: - supp o2 as needed, BIPAP QHS, goal sat 90%, Duonebs PRN, IS - Solumedrol 40mg IV BID - Doxy, Rocephin - Switch Lasix to 40mg PO daily - OOB to chair - dose coumadin, goal INR 2-3 - Nicotine patch - Cardizem PO - GI ppx - DVT ppx, coumadin - Transfer to telemetry
--- NOTE | 2018-01-26 10:06 | CP.PCM.PN ---
<Jose Marshall - Last Filed: 01/26/18 16:14> Subjective - Date & Time of Evaluation Date of Evaluation: 01/26/18 Time of Evaluation: 10:06 - Subjective Subjective: PGY-1 Medicine Progress Note for Dr. Sparrow Patient seen and examined at bedside this AM on BIPAP. No acute overnight events reported. No acute complaints at this time. Objective - Vital Signs/Intake and Output Vital Signs (last 24 hours): Temp Pulse Resp BP Pulse Ox 98.6 F 72 21 142/61 100 01/26/18 04:00 01/26/18 08:10 01/26/18 08:10 01/26/18 07:50 01/26/18 08:10 Intake and Output: 01/26/18 01/26/18 06:59 18:59 Intake Total 200 Output Total 1050 Balance -850 - Medications Medications: Current Medications Acetaminophen (Tylenol 325mg Tab) 650 mg PO Q6H PRN PRN Reason: Headache Albuterol/Ipratropium (Duoneb 3 Mg/0.5 Mg (3 Ml) Ud) 3 ml IH Q2H PRN PRN Reason: Shortness of Breath Albuterol/Ipratropium (Duoneb 3 Mg/0.5 Mg (3 Ml) Ud) 3 ml IH [id number] [facility] Last Admin: 01/26/18 07:48 Dose: 3 ml Alprazolam (Xanax) 0.25 mg PO TID [facility]; Protocol Stop: 02/01/18 18:01 Last Admin: 01/25/18 17:50 Dose: 0.25 mg Budesonide (Pulmicort Respules) 0.5 mg IH [id number] [facility] Last Admin: 01/26/18 07:48 Dose: 0.5 mg Digoxin (Lanoxin) 0.25 mg PO 1400 [facility] Last Admin: 01/25/18 18:46 Dose: Not Given Diltiazem HCl (Cardizem Cd) 120 mg PO 2000 [facility] Last Admin: 01/25/18 20:41 Dose: 120 mg Furosemide (Lasix) 40 mg PO DAILY [facility] Gabapentin (Neurontin) 400 mg PO DAILY [facility]; Protocol Last Admin: 01/25/18 10:00 Dose: Not Given Ceftriaxone Sodium (Rocephin 1 Gram Ivpb) 1 gm in 100 mls @ 100 mls/hr IVPB DAILY [facility]; Protocol Last Admin: 01/25/18 14:53 Dose: 100 mls/hr Doxycycline Hyclate 100 mg/ (Sodium Chloride) 100 mls @ 100 mls/hr IVPB Q12 [facility]; Protocol Last Admin: 01/25/18 22:04 Dose: 100 mls/hr Lisinopril (Zestril) 10 mg PO DAILY [facility] Last Admin: 01/25/18 09:28 Dose: 10 mg Lorazepam (Ativan) 1 mg PO Q4H PRN; Protocol PRN Reason: Anxiety Last Admin: 01/24/18 21:26 Dose: 1 mg Methylprednisolone (Solu-Medrol) 40 mg IVP Q12H [facility] Last Admin: 01/26/18 07:06 Dose: 40 mg Metoprolol Tartrate (Lopressor) 25 mg PO BID [facility] Last Admin: 01/25/18 17:50 Dose: 25 mg Nicotine (Nicoderm Cq) 1 patch TD DAILY [facility] Last Admin: 01/25/18 09:52 Dose: 1 patch Pantoprazole Sodium (Protonix Ec Tab) 40 mg PO 0600 [facility] Last Admin: 01/26/18 07:07 Dose: 40 mg Quetiapine Fumarate (Seroquel) 25 mg PO QPM PRN; Protocol PRN Reason: Agitation Last Admin: 01/25/18 20:41 Dose: 25 mg Sertraline HCl (Zoloft) 100 mg PO BID [facility] Last Admin: 01/25/18 17:50 Dose: 100 mg Warfarin Sodium (Coumadin) 2.5 mg PO 1800 [facility]; Protocol - Labs Labs: 01/26/18 05:00 01/26/18 05:00 PT 35.1 SECONDS (9.4-12.5) H 01/25/18 12:00 INR 2.98 01/25/18 12:00 APTT 51.6 Seconds (25.1-36.5) H 01/24/18 15:00 - Constitutional Appears: Non-toxic, No Acute Distress - Head Exam Head Exam: ATRAUMATIC, NORMAL INSPECTION, NORMOCEPHALIC - Eye Exam Eye Exam: EOMI, Normal appearance - ENT Exam ENT Exam: Normal Exam - Neck Exam Neck Exam: Full ROM, Normal Inspection - Respiratory Exam Respiratory Exam: Clear to Ausculation Bilateral, NORMAL BREATHING PATTERN. absent: Accessory Muscle Use, Respiratory Distress - Cardiovascular Exam Cardiovascular Exam: REGULAR RHYTHM, +S1, +S2 - GI/Abdominal Exam GI & Abdominal Exam: Soft, Normal Bowel Sounds. absent: Distended, Firm, Guarding, Rigid, Tenderness, Organomegaly, Rebound - Extremities Exam Extremities Exam: Normal Capillary Refill, Normal Inspection. absent: Calf Tenderness, Joint Swelling - Back Exam Back Exam: NORMAL INSPECTION - Neurological Exam Neurological Exam: Alert, Awake, Oriented x3 - Psychiatric Exam Psychiatric exam: Normal Affect, Normal Mood - Skin Skin Exam: Dry, Intact, Normal Color, Warm Assessment and Plan - Assessment and Plan (Free Text) Assessment: 72 yo female with PMHx COPD, diastolic HF, Afib on coumadin, smoking, anxiety, admitted for SOB and COPD exacerbation. Plan: Neuro - AOx3, continue to monitor Cardio Hx Atrial Fibrillation --f/u Digoxin level, can continue today if wnl --c/w cardizem --hold warfarin until INR 2.5-3 Hx CHF -- As above Hx HTN -- Lopressor 25 mg PO BID -- Zestril 10 mg PO Daily Digoxin Toxicity -- Dig 1.7 (01/26) Respiratory Shortness of Breath, likely 2/2 combination of CHF Exacerbation and Underlying COPD - Admit to tele; O2 NC PRN; get patient oob prn; vitals q6h - Duonebs PRN and NORA; Lasix 20 BID for now; continue home brovana, pulmicort, prednisone po - EKG Stat, tropes X 3, TSH, ECHO; CXR in AM - No IV steroids needed at this time. Keep Mg > 2.0, K+ > 4.0 Pulmonary HTN, likely 2/2 COPD - ECHO Respiratory Acidosis - BiPAP Hx COPD - As above Hx Tobacco Abuse - Advised cessation - Continue nicotine patch --Pulm recs (Dr. Titus) appreciated - supp o2 as needed, BIPAP QHS, goal sat 90%, Duonebs PRN, IS - Solumedrol 40mg IV BID - Doxy, Rocephin - Switch Lasix to 40mg PO daily - OOB to chair - dose coumadin, goal INR 2-3 - Nicotine patch - Cardizem PO - GI ppx - DVT ppx, coumadin - Transfer to telemetry GI - [facility] Nephrology/ - strict I/Os - monitor electrolytes ID - WBC 7.2 (01/26) - afebrile Heme/ Onc Supratherapeutic INR - Hold home coumadin - INR 2.93 Endocrine - maintain euglycemia Psyc Hx Anxiety - Continue sertraline, ativan, seroquel Ppx - Protonix - SCD Case discussed with Dr. Andrews Marshall DO, PGY-1 <Mak Sparrow - Last Filed: 01/27/18 14:06> Objective - Vital Signs/Intake and Output Vital Signs (last 24 hours): Temp Pulse Resp BP Pulse Ox 97.3 F L 63 20 155/85 H 98 01/27/18 08:25 01/27/18 10:45 01/27/18 08:25 01/27/18 10:45 01/27/18 08:25 Intake and Output: 01/27/18 01/27/18 06:59 18:59 Intake Total Output Total Balance - Medications Medications: Current Medications Acetaminophen (Tylenol 325mg Tab) 650 mg PO Q6H PRN PRN Reason: Headache Albuterol/Ipratropium (Duoneb 3 Mg/0.5 Mg (3 Ml) Ud) 3 ml IH Q2H PRN PRN Reason: Shortness of Breath Last Admin: 01/26/18 10:17 Dose: 3 ml Albuterol/Ipratropium (Duoneb 3 Mg/0.5 Mg (3 Ml) Ud) 3 ml IH [id number] [facility] Last Admin: 01/27/18 11:10 Dose: 3 ml Alprazolam (Xanax) 0.25 mg PO TID [facility]; Protocol Stop: 02/01/18 18:01 Last Admin: 01/27/18 10:43 Dose: 0.25 mg Budesonide (Pulmicort Respules) 0.5 mg IH [id number] [facility] Last Admin: 01/27/18 08:02 Dose: 0.5 mg Digoxin (Lanoxin) 0.25 mg PO 1400 [facility] Last Admin: 01/25/18 18:46 Dose: Not Given Diltiazem HCl (Cardizem Cd) 120 mg PO 2000 [facility] Last Admin: 01/25/18 20:41 Dose: 120 mg Furosemide (Lasix) 40 mg PO DAILY [facility] Last Admin: 01/27/18 10:45 Dose: 40 mg Gabapentin (Neurontin) 400 mg PO DAILY [facility]; Protocol Last Admin: 01/27/18 10:45 Dose: 400 mg Ceftriaxone Sodium (Rocephin 1 Gram Ivpb) 1 gm in 100 mls @ 100 mls/hr IVPB DAILY [facility]; Protocol Last Admin: 01/27/18 10:43 Dose: 100 mls/hr Doxycycline Hyclate 100 mg/ (Sodium Chloride) 100 mls @ 100 mls/hr IVPB Q12 [facility]; Protocol Last Admin: 01/27/18 11:00 Dose: 100 mls/hr Lidocaine HCl (Xylocaine 2%) 0 ea TOP BID [facility] Last Admin: 01/26/18 17:32 Dose: 1 applic Lisinopril (Zestril) 10 mg PO DAILY [facility] Last Admin: 01/27/18 10:44 Dose: 10 mg Lorazepam (Ativan) 1 mg PO Q4H PRN; Protocol PRN Reason: Anxiety Last Admin: 01/24/18 21:26 Dose: 1 mg Methylprednisolone (Solu-Medrol) 20 mg IVP Q12H [facility] Metoprolol Tartrate (Lopressor) 25 mg PO BID [facility] Last Admin: 01/27/18 10:45 Dose: 25 mg Nicotine (Nicoderm Cq) 1 patch TD DAILY [facility] Last Admin: 01/27/18 10:45 Dose: 1 patch Nystatin (Nystop Topical Powder) 0 gm TOP BID [facility] Last Admin: 01/26/18 17:33 Dose: 1 applic Pantoprazole Sodium (Protonix Ec Tab) 40 mg PO 0600 [facility] Last Admin: 01/27/18 06:17 Dose: 40 mg Quetiapine Fumarate (Seroquel) 25 mg PO QPM PRN; Protocol PRN Reason: Agitation Last Admin: 01/26/18 21:47 Dose: 25 mg Sertraline HCl (Zoloft) 100 mg PO BID [facility] Last Admin: 01/27/18 10:44 Dose: 100 mg Warfarin Sodium (Coumadin) 3 mg PO 1800 [facility]; Protocol - Labs Labs: 01/27/18 07:24 01/27/18 07:24 PT 20.3 SECONDS (9.4-12.5) H 01/27/18 07:24 INR 1.75 01/27/18 07:24 APTT 38.4 Seconds (25.1-36.5) H 01/26/18 20:06 Attending/Attestation - Attestation I have personally seen and examined this patient.: Yes I have fully participated in the care of the patient.: Yes I have reviewed all pertinent clinical information, including history, physical exam and plan: Yes Notes (Text): 01/27/18 14:05 Medical record note made by the resident after discussion with my direction and input after the patient was personally seen and examined by me. I have reviewed the chart and agree that the record accurately reflects by personal performance of the history, physical exam, data review, and medical decision-making, in the course for the patient. I have also personally directed the plan of care. 72 year old female with PMH of A fib on anticoagulation with Warfarin,COPD, diastolic CHF, Anxiety, presenting with SOB and productive cough due to COPD exacerbation, and acute on chronic diastolic CHF.Patient had rapid response Sunday as she was found to be in Resp Distress.ABG showed hypercapnic Resp Acidosis. Patient was found to have elevated JVD, basal crackle and leg edema.Patient was started on BIPAP and was transferred to ICU.She has responded well, off BIPAP, CHF and COPD is improving. 01/27/18 14:06
[2018-01-26] MEDS: cefTRIAXone 1 gm 1 GM/100 ML BAG IVPB SCH (11:19)
[2018-01-26] MEDS: Lidocaine 2% Jelly (30 ml) TOP SCH (17:32)
[2018-01-26] MEDS: Nystatin 100,000 Units/gm Topical Pow(15 gm) TOP SCH (17:33)
[2018-01-26 18:14] LABS: INR 1.89; PROTHROMBIN TIME 21.8 SECONDS (9.4-12.5)
[2018-01-27] MEDS: Albuterol-Ipratrop 3 mg / 0.5 (3 ml) UD IH SCH ×7 (01:26→23:06)
[2018-01-27] MEDS ORDERED: MethylPREDNISolone 40 mg Vial IVP SCH (06:00)
[2018-01-27] MEDS: Pantoprazole 40 mg EC Tab PO SCH (06:17)
--- NOTE | 2018-01-27 07:21 | CP.PCM.PN ---
<Jose Marshall - Last Filed: 01/27/18 15:50> Subjective - Date & Time of Evaluation Date of Evaluation: 01/27/18 Time of Evaluation: 07:21 - Subjective Subjective: PGY-1 Medicine Progress Note for Dr. Sparrow Patient seen and examined at bedside this AM off BIPAP. No acute overnight events reported. Patient's shortness of breath continuing to improve. No fevers/chills, headaches, dizziness, chest pain, palpitations, cough, abdominal pain, n/v/d/c. Objective - Vital Signs/Intake and Output Vital Signs (last 24 hours): Temp Pulse Resp BP Pulse Ox 98.1 F 64 18 120/75 95 01/26/18 21:26 01/27/18 03:59 01/26/18 21:26 01/26/18 21:26 01/26/18 21:26 Intake and Output: 01/27/18 01/27/18 06:59 18:59 Intake Total Output Total Balance - Medications Medications: Current Medications Acetaminophen (Tylenol 325mg Tab) 650 mg PO Q6H PRN PRN Reason: Headache Albuterol/Ipratropium (Duoneb 3 Mg/0.5 Mg (3 Ml) Ud) 3 ml IH Q2H PRN PRN Reason: Shortness of Breath Last Admin: 01/26/18 10:17 Dose: 3 ml Albuterol/Ipratropium (Duoneb 3 Mg/0.5 Mg (3 Ml) Ud) 3 ml IH [id number] [facility] Last Admin: 01/27/18 03:58 Dose: 3 ml Alprazolam (Xanax) 0.25 mg PO TID [facility]; Protocol Stop: 02/01/18 18:01 Last Admin: 01/26/18 17:32 Dose: 0.25 mg Budesonide (Pulmicort Respules) 0.5 mg IH [id number] [facility] Last Admin: 01/26/18 21:30 Dose: 0.5 mg Digoxin (Lanoxin) 0.25 mg PO 1400 [facility] Last Admin: 01/25/18 18:46 Dose: Not Given Diltiazem HCl (Cardizem Cd) 120 mg PO 2000 [facility] Last Admin: 01/25/18 20:41 Dose: 120 mg Furosemide (Lasix) 40 mg PO DAILY [facility] Last Admin: 01/26/18 11:00 Dose: 40 mg Gabapentin (Neurontin) 400 mg PO DAILY [facility]; Protocol Last Admin: 01/26/18 11:42 Dose: 400 mg Ceftriaxone Sodium (Rocephin 1 Gram Ivpb) 1 gm in 100 mls @ 100 mls/hr IVPB DAILY [facility]; Protocol Last Admin: 01/26/18 11:19 Dose: 100 mls/hr Doxycycline Hyclate 100 mg/ (Sodium Chloride) 100 mls @ 100 mls/hr IVPB Q12 [facility]; Protocol Last Admin: 01/26/18 21:49 Dose: 100 mls/hr Lidocaine HCl (Xylocaine 2%) 0 ea TOP BID [facility] Last Admin: 01/26/18 17:32 Dose: 1 applic Lisinopril (Zestril) 10 mg PO DAILY [facility] Last Admin: 01/26/18 11:00 Dose: 10 mg Lorazepam (Ativan) 1 mg PO Q4H PRN; Protocol PRN Reason: Anxiety Last Admin: 01/24/18 21:26 Dose: 1 mg Methylprednisolone (Solu-Medrol) 40 mg IVP Q12H [facility] Last Admin: 01/27/18 06:16 Dose: 40 mg Metoprolol Tartrate (Lopressor) 25 mg PO BID [facility] Last Admin: 01/26/18 17:34 Dose: 25 mg Nicotine (Nicoderm Cq) 1 patch TD DAILY [facility] Last Admin: 01/26/18 11:42 Dose: 1 patch Nystatin (Nystop Topical Powder) 0 gm TOP BID [facility] Last Admin: 01/26/18 17:33 Dose: 1 applic Pantoprazole Sodium (Protonix Ec Tab) 40 mg PO 0600 [facility] Last Admin: 01/27/18 06:17 Dose: 40 mg Quetiapine Fumarate (Seroquel) 25 mg PO QPM PRN; Protocol PRN Reason: Agitation Last Admin: 01/26/18 21:47 Dose: 25 mg Sertraline HCl (Zoloft) 100 mg PO BID [facility] Last Admin: 01/26/18 17:31 Dose: 100 mg Warfarin Sodium (Coumadin) 2.5 mg PO 1800 [facility]; Protocol - Labs Labs: 01/26/18 05:00 01/26/18 05:00 PT 21.8 SECONDS (9.4-12.5) H 01/26/18 18:03 INR 1.89 01/26/18 18:03 APTT 38.4 Seconds (25.1-36.5) H 01/26/18 20:06 - Constitutional Appears: Non-toxic, No Acute Distress - Head Exam Head Exam: ATRAUMATIC, NORMAL INSPECTION, NORMOCEPHALIC - Eye Exam Eye Exam: EOMI, Normal appearance Pupil Exam: NORMAL ACCOMODATION - ENT Exam ENT Exam: Mucous Membranes Moist, Normal Exam - Neck Exam Neck Exam: Full ROM, Normal Inspection - Respiratory Exam Respiratory Exam: Clear to Ausculation Bilateral, NORMAL BREATHING PATTERN. absent: Accessory Muscle Use, Respiratory Distress - Cardiovascular Exam Cardiovascular Exam: REGULAR RHYTHM, +S1, +S2 - GI/Abdominal Exam GI & Abdominal Exam: Soft, Normal Bowel Sounds. absent: Distended, Firm, Guarding, Rigid, Tenderness, Organomegaly - Extremities Exam Extremities Exam: Normal Capillary Refill, Normal Inspection. absent: Calf Tenderness, Pedal Edema - Back Exam Back Exam: NORMAL INSPECTION - Neurological Exam Neurological Exam: Alert, Awake, Oriented x3 - Psychiatric Exam Psychiatric exam: Normal Affect, Normal Mood - Skin Skin Exam: Dry, Intact, Normal Color, Warm Assessment and Plan - Assessment and Plan (Free Text) Assessment: 72 yo female with PMHx COPD, diastolic HF, Afib on coumadin, smoking, anxiety, admitted for SOB and COPD exacerbation. Plan: Neuro - AOx3, continue to monitor Cardio Hx Atrial Fibrillation --Digoxin 1.7 --c/w cardizem --restarted warfarin 3 mg PO Hx CHF -- As above Hx HTN -- Lopressor 25 mg PO BID -- Zestril 10 mg PO Daily Digoxin Toxicity -- Dig 1.7 (01/26) Respiratory Shortness of Breath, likely 2/2 combination of CHF Exacerbation and Underlying COPD - Admit to tele; O2 NC PRN; get patient oob prn; vitals q6h - Duonebs PRN and NORA; Lasix 20 BID for now; continue home brovana, pulmicort, prednisone po - EKG Stat, tropes X 3, TSH, ECHO; CXR in AM - No IV steroids needed at this time. Keep Mg > 2.0, K+ > 4.0 Pulmonary HTN, likely 2/2 COPD - ECHO Respiratory Acidosis - BiPAP Hx COPD - As above Hx Tobacco Abuse - Advised cessation - Continue nicotine patch --Pulm recs (Dr. Titus) appreciated - supp o2 as needed, BIPAP QHS, goal sat 90%, Duonebs PRN, IS - solumedrol - Doxy, Rocephin - Switch Lasix to 40mg PO daily - OOB to chair - dose coumadin, goal INR 2-3 - Nicotine patch - Cardizem PO - GI ppx - DVT ppx, coumadin - Transfer to telemetry GI - [facility] Nephrology/ - strict I/Os - monitor electrolytes ID - WBC 8.2 (01/27) - afebrile Heme/ Onc Supratherapeutic INR - coumadin restarted - INR 1.7 Endocrine - maintain euglycemia Psyc Hx Anxiety - Continue sertraline, ativan, seroquel Ppx - Protonix - SCD Case discussed with Dr. Andrews Marshall DO, PGY-1 <Mak Sparrow - Last Filed: 01/27/18 17:56> Objective - Vital Signs/Intake and Output Vital Signs (last 24 hours): Temp Pulse Resp BP Pulse Ox 98.5 F 55 L 19 140/81 96 01/27/18 17:18 01/27/18 17:18 01/27/18 17:18 01/27/18 17:18 01/27/18 17:18 Intake and Output: 01/27/18 01/27/18 06:59 18:59 Intake Total Output Total Balance - Medications Medications: Current Medications Acetaminophen (Tylenol 325mg Tab) 650 mg PO Q6H PRN PRN Reason: Headache Albuterol/Ipratropium (Duoneb 3 Mg/0.5 Mg (3 Ml) Ud) 3 ml IH Q2H PRN PRN Reason: Shortness of Breath Last Admin: 01/26/18 10:17 Dose: 3 ml Albuterol/Ipratropium (Duoneb 3 Mg/0.5 Mg (3 Ml) Ud) 3 ml IH [id number] [facility] Last Admin: 01/27/18 15:22 Dose: 3 ml Alprazolam (Xanax) 0.25 mg PO TID [facility]; Protocol Stop: 02/01/18 18:01 Last Admin: 01/27/18 14:55 Dose: 0.25 mg Budesonide (Pulmicort Respules) 0.5 mg IH [id number] [facility] Last Admin: 01/27/18 08:02 Dose: 0.5 mg Digoxin (Lanoxin) 0.25 mg PO 1400 [facility] Last Admin: 01/25/18 18:46 Dose: Not Given Diltiazem HCl (Cardizem Cd) 120 mg PO 2000 [facility] Last Admin: 01/25/18 20:41 Dose: 120 mg Furosemide (Lasix) 40 mg PO DAILY [facility] Last Admin: 01/27/18 10:45 Dose: 40 mg Gabapentin (Neurontin) 400 mg PO DAILY [facility]; Protocol Last Admin: 01/27/18 10:45 Dose: 400 mg Ceftriaxone Sodium (Rocephin 1 Gram Ivpb) 1 gm in 100 mls @ 100 mls/hr IVPB DAILY [facility]; Protocol Last Admin: 01/27/18 10:43 Dose: 100 mls/hr Doxycycline Hyclate 100 mg/ (Sodium Chloride) 100 mls @ 100 mls/hr IVPB Q12 [facility]; Protocol Last Admin: 01/27/18 11:00 Dose: 100 mls/hr Lidocaine HCl (Xylocaine 2%) 0 ea TOP BID [facility] Last Admin: 01/26/18 17:32 Dose: 1 applic Lisinopril (Zestril) 10 mg PO DAILY [facility] Last Admin: 01/27/18 10:44 Dose: 10 mg Lorazepam (Ativan) 1 mg PO Q4H PRN; Protocol PRN Reason: Anxiety Last Admin: 01/24/18 21:26 Dose: 1 mg Methylprednisolone (Solu-Medrol) 20 mg IVP Q12H [facility] Metoprolol Tartrate (Lopressor) 25 mg PO BID [facility] Last Admin: 01/27/18 10:45 Dose: 25 mg Nicotine (Nicoderm Cq) 1 patch TD DAILY [facility] Last Admin: 01/27/18 10:45 Dose: 1 patch Nystatin (Nystop Topical Powder) 0 gm TOP BID [facility] Last Admin: 01/26/18 17:33 Dose: 1 applic Pantoprazole Sodium (Protonix Ec Tab) 40 mg PO 0600 [facility] Last Admin: 01/27/18 06:17 Dose: 40 mg Quetiapine Fumarate (Seroquel) 25 mg PO QPM PRN; Protocol PRN Reason: Agitation Last Admin: 01/26/18 21:47 Dose: 25 mg Sertraline HCl (Zoloft) 100 mg PO BID [facility] Last Admin: 01/27/18 10:44 Dose: 100 mg Warfarin Sodium (Coumadin) 3 mg PO 1800 [facility]; Protocol - Labs Labs: 01/27/18 07:24 01/27/18 07:24 PT 20.3 SECONDS (9.4-12.5) H 01/27/18 07:24 INR 1.75 01/27/18 07:24 APTT 38.4 Seconds (25.1-36.5) H 01/26/18 20:06 Attending/Attestation - Attestation I have personally seen and examined this patient.: Yes I have fully participated in the care of the patient.: Yes I have reviewed all pertinent clinical information, including history, physical exam and plan: Yes Notes (Text): 01/27/18 17:55 Medical record note made by the resident after discussion with my direction and input after the patient was personally seen and examined by me. I have reviewed the chart and agree that the record accurately reflects by personal performance of the history, physical exam, data review, and medical decision-making, in the course for the patient. I have also personally directed the plan of care. 72 year old female with PMH of A fib on anticoagulation with Warfarin,COPD, diastolic CHF, Anxiety, presenting with SOB and productive cough due to COPD exacerbation, and acute on chronic diastolic CHF.Patient had rapid response Sunday as she was found to be in Resp Distress.ABG showed hypercapnic Resp Acidosis. Patient was found to have elevated JVD, basal crackle and leg edema.Patient was started on BIPAP and is transferred to ICU.She has responded well to IV lasix, Neb,and steroid off BIPAP, CHF and COPD is improving. PT evaluation is requested,
[2018-01-27 07:33] LABS: GRAN # 5.72 (1.4-6.5); GRAN % 69.6 % (50.0-68.0); HEMOGLOBIN 11.4 g/dL (12.0-16.0); LYMPH # 1.6 (1.2-3.4); LYMPH % 19.1 % (22.0-35.0); MEAN CELL VOLUME 89.5 fl (80.0-105.0); MEAN CORPUSCULAR HEMOGLOBIN 28.5 pg (25.0-35.0); MEAN CORPUSCULAR HGB CONC 31.8 g/dl (31.0-37.0); MONO # 0.9 (0.1-0.6); MONO % 11.3 % (1.0-6.0); RED CELL DISTRIBUTION WIDTH 14.9 % (11.5-14.5); WHITE BLOOD COUNT 8.2 10^3/uL (4.5-11.0)
[2018-01-27 07:37] LABS: INR 1.75; PROTHROMBIN TIME 20.3 SECONDS (9.4-12.5)
[2018-01-27 07:55] LABS: ALB/GLOB RATIO 1.3 (1.1-1.8); ALBUMIN 3.3 g/dL (3.0-4.8); ALT/SGPT 44 U/L (7-56); AST/SGOT 30 U/L (14-36); BLOOD UREA NITROGEN 22 mg/dL (7-21); CALCIUM 9.2 mg/dL (8.4-10.5); GFR NON-AFRICAN AMERICAN > 60
[2018-01-27] MEDS: Budesonide 0.5 mg/2 ml Inhal Susp UD IH SCH ×2 (08:02→19:24)
--- NOTE | 2018-01-27 09:21 | RAD ---
Date of service: 01/27/2018 HISTORY: ? CHF exacerbation progression COMPARISON: 01/26/2018 FINDINGS: LUNGS: No active pulmonary disease. PLEURA: No significant pleural effusion identified, no pneumothorax apparent. CARDIOVASCULAR: No aortic atherosclerotic calcification present. Normal cardiac size. No pulmonary vascular congestion. OSSEOUS STRUCTURES: No significant abnormalities. VISUALIZED UPPER ABDOMEN: Normal. OTHER FINDINGS: None. IMPRESSION: No active disease.
[2018-01-27] MEDS ORDERED: Potassium Chloride 20 mEq ER Tab PO ONE (10:12)
[2018-01-27] MEDS: cefTRIAXone 1 gm 1 GM/100 ML BAG IVPB SCH (10:43)
--- NOTE | 2018-01-27 12:59 | PN ---
DATE: 01/27/2018 REASON FOR THE CONSULTATION AND FOLLOWUP: Shortness of breath, atrial fibrillation, history of CHF, and cardiomyopathy, improved. SUBJECTIVE: The patient denies any chest pain, shortness of breath, or any palpitation. PHYSICAL EXAMINATION: GENERAL: Not in any apparent distress. VITAL SIGNS: Temperature afebrile, heart rate 63, blood pressure 120/75. HEENT: PERRLA. Extraocular muscles intact. NECK: Supple. No carotid bruit. No thyromegaly. CHEST: Clear to auscultation. HEART: S1 and S2 regular. ABDOMEN: Soft. EXTREMITIES: Clubbing and cyanosis negative. LABORATORY DATA: Blood workup as follows: WBC 8.8, hemoglobin 11. , hematocrit 35.8, platelet count 290. Chemistry shows sodium 130, potassium 3. , chloride 94, carbon dioxide 38, anion gap of 8, BUN 15, creatinine 0.7. IMPRESSION: Acute exacerbation of chronic obstructive pulmonary disease. This is a 72-year-old female with past medical history significant for chronic nonobstructive coronary artery disease, status post cardiac catheterization, history of cardiomyopathy. Subsequent echocardiogram and MUGA scan show improved left ventricular function. History of chronic atrial fibrillation, on anticoagulation. Admitted with advanced chronic obstructive pulmonary disease, active tobacco abuse. RECOMMENDATION: Continue antibiotic. Continue Cardizem CD 120 mg daily. Continue Coumadin. Continue digoxin. Continue metoprolol. Heart rate is well controlled on digoxin. Monitor INR. INR today is 1.78. Started on 2.5 mg Coumadin. Initially, it was elevated. The patient was taking Coumadin 2.5 at home. Came in with elevated. We will follow the PT/INR tomorrow. We will follow up. CVS status is stable. We will supplement potassium. Thank you, Dr. Sparrow, for providing us the opportunity in taking care of the patient, Alecia Arciniega. Mak Mendez MD
[2018-01-27] MEDS: diltiaZEM 120 mg/24 Hours CD Cap PO SCH (21:52)
[2018-01-27] MEDS: MethylPREDNISolone 40 mg Vial IVP SCH (23:22)
[2018-01-28] MEDS: Albuterol-Ipratrop 3 mg / 0.5 (3 ml) UD IH SCH ×6 (04:24→23:48)
[2018-01-28 06:42] LABS: ALB/GLOB RATIO 1.4 (1.1-1.8); ALBUMIN 3.3 g/dL (3.0-4.8); ALT/SGPT 69 U/L (7-56); AST/SGOT 47 U/L (14-36); BLOOD UREA NITROGEN 22 mg/dL (7-21); CALCIUM 9.1 mg/dL (8.4-10.5); GFR NON-AFRICAN AMERICAN > 60
[2018-01-28 06:59] LABS: GRAN # 6.7 (1.4-6.5); GRAN % 80.8 % (50.0-68.0); HEMOGLOBIN 11.7 g/dL (12.0-16.0); LYMPH # 1.1 (1.2-3.4); LYMPH % 12.9 % (22.0-35.0); MEAN CELL VOLUME 89.6 fl (80.0-105.0); MEAN CORPUSCULAR HGB CONC 32.3 g/dl (31.0-37.0); MEAN PLATELET VOLUME 9.1 fl (7.0-11.0); MONO # 0.5 (0.1-0.6); MONO % 6.3 % (1.0-6.0); RBC 4.04 10^6/uL (3.5-6.1); RED CELL DISTRIBUTION WIDTH 14.9 % (11.5-14.5); WHITE BLOOD COUNT 8.3 10^3/uL (4.5-11.0)
[2018-01-28] MEDS: Budesonide 0.5 mg/2 ml Inhal Susp UD IH SCH ×2 (08:03→19:57)
--- NOTE | 2018-01-28 08:45 | PN ---
DATE: 01/26/2018 REASON FOR CONSULTATION AND FOLLOWUP: Shortness of breath, chronic atrial fibrillation, history of non-ischemic cardiomyopathy improving, history of non-ischemic coronary artery disease. SUBJECTIVE: The patient denies any chest pain, shortness of breath, or any palpitation. The patient . PHYSICAL EXAMINATION: As follows: VITAL SIGNS: Temperature afebrile, heart rate 32, blood pressure 142/61. HEENT: PERRLA. Extraocular muscles intact. NECK: Supple. No carotid bruits. No thyromegaly. CHEST: Clear to auscultation. HEART: S1 and S2, regular. ABDOMEN: Soft. EXTREMITIES: Clubbing, cyanosis negative. LABORATORY DATA: Blood workup as follows: WBC 7.8, hemoglobin 12.5, hematocrit 39, platelet count 283. Chemistry shows sodium 130, potassium 4, chloride , bicarbonate 38, anion gap 9.6, 0.5. Troponin remains negative. IMPRESSION: A 72-year-old female with past medical history significant for anxiety disorder, non-ischemic cardiomyopathy, status post cardiac catheterization. Repeat MUGA scan dated 09/17/2017 shows improvement in left ventricular function, ejection fraction 55%. Normal right ventricle. Yesterday, the patient had echocardiography done with ejection fraction 55%. Right ventricular systolic function mildly reduced. Mild mitral regurgitation, mild to moderate tricuspid regurgitation. History of cardiac catheterization showed nonobstructive coronary artery disease, dated 06/29/2016. Diffuse left anterior descending disease, no focal stenosis, and ejection fraction was 35% to 40%, dated 06/12/2016. Later on, it improved. The patient yesterday admitted with acute exacerbation of chronic obstructive pulmonary disorder the patient got more respiratory distress and moved to intensive care unit. Currently, the patient is stable and very anxious, moderate Xanax dose. RECOMMENDATIONS: Continue ventilator. Continue Cardizem. Continue metoprolol. Heart rate and blood pressure is stable. Will continue Coumadin, INR 2.98, we will hold it. Repeat INR tomorrow. Otherwise, below 2.5, we will hold Coumadin now and repeat INR tomorrow. If INR is less than 2.5, we will restart. Continue gentle diuretics. Continue Xanax. Continue lisinopril. We will follow with you. Thank you for providing us the opportunity in taking care of the patient, Demian Alston. Mak Mendez MD
--- NOTE | 2018-01-28 08:57 | CON ---
DATE: 01/27/2018 HISTORY OF PRESENT ILLNESS: The patient is a 72-year-old female with a history of depression and anxiety with multiple medical problems, who has been seen by psychiatrist for consultations on prior occasions, last month by Dr. Mattson. The patient presents with shortness of breath, likely COPD exacerbation. Psychiatrist was called because of the patient's anxiety . I reviewed prior records and current records, which indicate that the patient continues to be on Zoloft and Seroquel as well as on benzodiazepine for anxiety issues. I met with the patient at bedside, and the patient appears to be depressed, she was not aware, the psychiatrist called again for her. She reports that she has been taking the medications as prescribed and denies any current psychiatric issues. She is aware of the current month, year, location, circumstances. She really defers on any psychiatric management indicating that she is still stable on current psychiatric medications. Denies any current acute depression, suicidality, homicidal thoughts, or hallucinations. She feels the current medications are keeping her stable regarding her depression and anxiety. Fairly coherent and consistent with questioning, has been anxious on medical floor, but her nursing notes indicate that she has been alert and oriented x3. No repetitive Veronica Wharton MD
[2018-01-28] MEDS: Nystatin 100,000 Units/gm Topical Pow(15 gm) TOP SCH ×2 (09:48→17:15)
[2018-01-28] MEDS: Pantoprazole 40 mg EC Tab PO SCH (09:49)
[2018-01-28] MEDS: cefTRIAXone 1 gm 1 GM/100 ML BAG IVPB SCH (09:49)
[2018-01-28] MEDS: Lidocaine 2% Jelly (30 ml) TOP SCH ×2 (09:55→17:17)
[2018-01-28] MEDS: MethylPREDNISolone 40 mg Vial IVP SCH ×2 (10:03→22:43)
[2018-01-28 14:21] LABS: INR 1.74; PROTHROMBIN TIME 20.2 SECONDS (9.4-12.5)
--- NOTE | 2018-01-28 15:13 | IP.NPCORE ---
COPD Progress Note - COPD Progress Note FEV1/FVC<70: Yes (Fio2 35%) Plan to assess at outpatient follow up: Yes Symptoms:: Increase in Dyspnea, Cough Initial CXR:: no active disease Date:: 01/24/18 Oxygen Saturation/Pulse Oximetry:: 100 ABG Not Indicated (Symptoms Improved): Yes Nebulizers Q2-4 hrs:: Duonebs/Albuterol Therapy Antibiotics (Name/Dose/Frequency):: Doxy 100 mg iv q12 Antibiotics Not Indicated: No Systemic Steroids w/ methylprednisolone Name/Dose/Frequency:: Solumedrol 20 mg IV q12 Oxygen Delivery Method: Nasal Cannula Oxygen Flow Rate: 3 Smoking cessation counseling all stages copd exacerbation: Yes
--- NOTE | 2018-01-28 16:54 | CP.PCM.PN ---
<Vega Yi - Last Filed: 01/28/18 16:51> Subjective - Date & Time of Evaluation Date of Evaluation: 01/28/18 Time of Evaluation: 07:00 - Subjective Subjective: Vega Yi PGY1 Medicine Progress Note for Dr. Walters Patient was seen and examined at bedside this morning. No acute overnight events. Vital signs stable, no fevers overnight. Patient explained that she still continues to smoke occasionally. Even though she is on home oxygen, she does not want to use it. Otherwise, she denies cp, sob, abdominal pain, lightheadedness, dizziness, lower ext edema/pain. Patient has been using BiPAP at night and oxygen via nasal cannula during the day. A full 12 point ROS was conducted and unremarkable except as stated above. Objective - Vital Signs/Intake and Output Vital Signs (last 24 hours): Temp Pulse Resp BP Pulse Ox 99.6 F 67 21 148/81 97 01/28/18 16:10 01/28/18 16:10 01/28/18 16:10 01/28/18 16:10 01/28/18 16:10 Intake and Output: 01/28/18 01/28/18 06:59 18:59 Intake Total 60 Balance 60 - Medications Medications: Current Medications Acetaminophen (Tylenol 325mg Tab) 650 mg PO Q6H PRN PRN Reason: Headache Albuterol/Ipratropium (Duoneb 3 Mg/0.5 Mg (3 Ml) Ud) 3 ml IH Q2H PRN PRN Reason: Shortness of Breath Last Admin: 01/26/18 10:17 Dose: 3 ml Albuterol/Ipratropium (Duoneb 3 Mg/0.5 Mg (3 Ml) Ud) 3 ml IH [id number] [facility] Last Admin: 01/28/18 16:18 Dose: 3 ml Alprazolam (Xanax) 0.25 mg PO TID [facility]; Protocol Stop: 02/01/18 18:01 Last Admin: 01/28/18 14:39 Dose: 0.25 mg Budesonide (Pulmicort Respules) 0.5 mg IH [id number] [facility] Last Admin: 01/28/18 08:03 Dose: 0.5 mg Digoxin (Lanoxin) 0.25 mg PO 1400 [facility] Last Admin: 01/25/18 18:46 Dose: Not Given Diltiazem HCl (Cardizem Cd) 120 mg PO 2000 [facility] Last Admin: 01/27/18 21:52 Dose: 120 mg Doxycycline Hyclate (Doryx) 100 mg PO Q12 [facility] Furosemide (Lasix) 40 mg PO DAILY [facility] Last Admin: 01/28/18 09:46 Dose: 40 mg Gabapentin (Neurontin) 400 mg PO DAILY [facility]; Protocol Last Admin: 01/28/18 09:46 Dose: 400 mg Hydralazine HCl (Apresoline) 10 mg PO QID PRN PRN Reason: for sbp>160 Ceftriaxone Sodium (Rocephin 1 Gram Ivpb) 1 gm in 100 mls @ 100 mls/hr IVPB DAILY [facility]; Protocol Last Admin: 01/28/18 09:49 Dose: 100 mls/hr Lidocaine HCl (Xylocaine 2%) 0 ea TOP BID [facility] Last Admin: 01/28/18 09:55 Dose: 1 applic Lisinopril (Zestril) 10 mg PO DAILY [facility] Last Admin: 01/28/18 09:55 Dose: 10 mg Lorazepam (Ativan) 1 mg PO Q4H PRN; Protocol PRN Reason: Anxiety Last Admin: 01/27/18 21:57 Dose: 1 mg Methylprednisolone (Solu-Medrol) 20 mg IVP Q12H [facility] Last Admin: 01/28/18 10:03 Dose: 20 mg Metoprolol Tartrate (Lopressor) 25 mg PO BID [facility] Last Admin: 01/28/18 09:46 Dose: 25 mg Nicotine (Nicoderm Cq) 1 patch TD DAILY [facility] Last Admin: 01/28/18 09:47 Dose: 1 patch Nystatin (Nystop Topical Powder) 0 gm TOP BID [facility] Last Admin: 01/28/18 09:48 Dose: 1 applic Pantoprazole Sodium (Protonix Ec Tab) 40 mg PO 0600 [facility] Last Admin: 01/28/18 09:49 Dose: 40 mg Quetiapine Fumarate (Seroquel) 25 mg PO QPM PRN; Protocol PRN Reason: Agitation Last Admin: 01/27/18 21:55 Dose: 25 mg Sertraline HCl (Zoloft) 100 mg PO BID [facility] Last Admin: 01/28/18 09:55 Dose: 100 mg Warfarin Sodium (Coumadin) 3 mg PO 1800 [facility]; Protocol Last Admin: 01/27/18 18:20 Dose: 3 mg - Labs Labs: 01/28/18 05:30 01/28/18 05:30 PT 20.2 SECONDS (9.4-12.5) H 01/28/18 14:00 INR 1.74 01/28/18 14:00 APTT 38.4 Seconds (25.1-36.5) H 01/26/18 20:06 - Constitutional Appears: No Acute Distress - Head Exam Head Exam: ATRAUMATIC, NORMAL INSPECTION, NORMOCEPHALIC - Eye Exam Eye Exam: EOMI, Normal appearance, PERRL Pupil Exam: NORMAL ACCOMODATION, PERRL - ENT Exam ENT Exam: Mucous Membranes Moist, Normal Exam - Neck Exam Neck Exam: Full ROM, Normal Inspection. absent: Lymphadenopathy - Respiratory Exam Respiratory Exam: Clear to Ausculation Bilateral, NORMAL BREATHING PATTERN. absent: Rales, Rhonchi, Wheezes, Respiratory Distress, Stridor - Cardiovascular Exam Cardiovascular Exam: REGULAR RHYTHM, +S1, +S2. absent: Gallop, JVD, Murmur - GI/Abdominal Exam GI & Abdominal Exam: Soft, Normal Bowel Sounds. absent: Tenderness - Extremities Exam Extremities Exam: Full ROM, Normal Capillary Refill, Normal Inspection. absent: Joint Swelling, Pedal Edema - Neurological Exam Neurological Exam: Alert, Awake, CN II-XII Intact, Oriented x3 Neuro motor strength exam: Left Upper Extremity: 5, Right Upper Extremity: 5, Left Lower Extremity: 5, Right Lower Extremity: 5 - Skin Skin Exam: Dry, Intact, Normal Color, Warm Assessment and Plan - Assessment and Plan (Free Text) Assessment: Patient is a 72 y/o female with PMHx COPD, diastolic CHF, Afib on coumadin, smoking, anxiety, admitted for SOB 2/2 CHF vs COPD exacerbation. During admission, [facility] was called for respiratory distress, patient was transferred to ICU and stabilized. Patient has improved on the floor. Plan: SOB 2/2 CHF vs COPD exacerbation - Patient does not want to take her home oxygen - c/w duonebs prn - c/w doxy and rocephin - c/w solumedrol 20 mg q12H, taper as needed - c/w lasix PO 40 mg PO daily - c/w NC during the day; BiPAP at night - Pulmonology consulted, recs appreciated - CXR (01/27): no active disease - Echo (01/25): EF 54%. Mild-mod TR. Mild MR. Limited study. Hx Tobacco Abuse - patient continues to smoke - Advised cessation with counseling - Continue nicotine patch Hx Atrial Fibrillation - c/w cardizem - c/w warfarin 3 mg PO - therapeutic INR - Cardio consulted, recs appreciated. Hx HTN - c/w Lopressor 25 mg PO BID - c/w Zestril 10 mg PO Daily Hx Severe Anxiety - c/w sertraline, xanax, seroquel, and ativan - Psych consulted, recs appreciated - GI ppx: Protonix - DVT ppx: SCD Dispo: Patient is pending PT eval. Case was discussed and reviewed with Attending Physician, Dr. Walters. <Fabio Walters - Last Filed: 01/28/18 17:50> Objective - Vital Signs/Intake and Output Vital Signs (last 24 hours): Temp Pulse Resp BP Pulse Ox 99.6 F 67 21 148/81 97 01/28/18 16:10 01/28/18 17:14 01/28/18 16:10 01/28/18 17:14 01/28/18 16:10 Intake and Output: 01/28/18 01/28/18 06:59 18:59 Intake Total 60 Balance 60 - Medications Medications: Current Medications Acetaminophen (Tylenol 325mg Tab) 650 mg PO Q6H PRN PRN Reason: Headache Albuterol/Ipratropium (Duoneb 3 Mg/0.5 Mg (3 Ml) Ud) 3 ml IH Q2H PRN PRN Reason: Shortness of Breath Last Admin: 01/26/18 10:17 Dose: 3 ml Albuterol/Ipratropium (Duoneb 3 Mg/0.5 Mg (3 Ml) Ud) 3 ml IH [id number] [facility] Last Admin: 01/28/18 16:18 Dose: 3 ml Alprazolam (Xanax) 0.25 mg PO TID [facility]; Protocol Stop: 02/01/18 18:01 Last Admin: 01/28/18 14:39 Dose: 0.25 mg Budesonide (Pulmicort Respules) 0.5 mg IH [id number] [facility] Last Admin: 01/28/18 08:03 Dose: 0.5 mg Digoxin (Lanoxin) 0.25 mg PO 1400 [facility] Last Admin: 01/25/18 18:46 Dose: Not Given Diltiazem HCl (Cardizem Cd) 120 mg PO 2000 [facility] Last Admin: 01/27/18 21:52 Dose: 120 mg Doxycycline Hyclate (Doryx) 100 mg PO Q12 [facility] Furosemide (Lasix) 40 mg PO DAILY [facility] Last Admin: 01/28/18 09:46 Dose: 40 mg Gabapentin (Neurontin) 400 mg PO DAILY [facility]; Protocol Last Admin: 01/28/18 09:46 Dose: 400 mg Hydralazine HCl (Apresoline) 10 mg PO QID PRN PRN Reason: for sbp>160 Ceftriaxone Sodium (Rocephin 1 Gram Ivpb) 1 gm in 100 mls @ 100 mls/hr IVPB DAILY [facility]; Protocol Last Admin: 01/28/18 09:49 Dose: 100 mls/hr Lidocaine HCl (Xylocaine 2%) 0 ea TOP BID [facility] Last Admin: 01/28/18 17:17 Dose: 1 applic Lisinopril (Zestril) 10 mg PO DAILY [facility] Last Admin: 01/28/18 09:55 Dose: 10 mg Lorazepam (Ativan) 1 mg PO Q4H PRN; Protocol PRN Reason: Anxiety Last Admin: 01/27/18 21:57 Dose: 1 mg Methylprednisolone (Solu-Medrol) 20 mg IVP Q12H [facility] Last Admin: 01/28/18 10:03 Dose: 20 mg Metoprolol Tartrate (Lopressor) 25 mg PO BID [facility] Last Admin: 01/28/18 17:14 Dose: 25 mg Nicotine (Nicoderm Cq) 1 patch TD DAILY [facility] Last Admin: 01/28/18 09:47 Dose: 1 patch Nystatin (Nystop Topical Powder) 0 gm TOP BID [facility] Last Admin: 01/28/18 17:15 Dose: 1 applic Pantoprazole Sodium (Protonix Ec Tab) 40 mg PO 0600 [facility] Last Admin: 01/28/18 09:49 Dose: 40 mg Quetiapine Fumarate (Seroquel) 25 mg PO QPM PRN; Protocol PRN Reason: Agitation Last Admin: 01/27/18 21:55 Dose: 25 mg Sertraline HCl (Zoloft) 100 mg PO BID [facility] Last Admin: 01/28/18 17:17 Dose: 100 mg Warfarin Sodium (Coumadin) 3 mg PO 1800 [facility]; Protocol Last Admin: 01/28/18 17:14 Dose: 3 mg - Labs Labs: 01/28/18 05:30 01/28/18 05:30 PT 20.2 SECONDS (9.4-12.5) H 01/28/18 14:00 INR 1.74 01/28/18 14:00 APTT 38.4 Seconds (25.1-36.5) H 01/26/18 20:06 Attending/Attestation - Attestation I have personally seen and examined this patient.: Yes I have fully participated in the care of the patient.: Yes I have reviewed all pertinent clinical information, including history, physical exam and plan: Yes Notes (Text): 01/28/18 17:45 72 year old female with past medical history of COPD, afib, diastolic CHF and active tobacco use who presented with complaint of shortness of breath secondary to COPD exacerbation and acute on chronic diastolic CHF exacerbation. Hospital course was complicated few days prior with acute hypercapneic respiratory marguerite lure require bipap. She has responded well since with iv steroids and iv lasix. She is currently on nasal cannula. She is on iv steroids and duonebs. Pulmonary and cardiology are following. Patient was counselled on smoking cessation. PT evaluation is requested for d/c planning. Fabio Walters MD Hospitalist.
--- NOTE | 2018-01-28 20:35 | PN ---
DATE: 01/28/2018 REASON FOR CONSULTATION AND FOLLOWUP: Shortness of breath, atrial fibrillation, history of CHF, and cardiomyopathy, improved. SUBJECTIVE: The patient denies any chest pain, shortness of breath, or any palpitation. PHYSICAL EXAMINATION OBJECTIVE: Not in apparent distress. VITAL SIGNS: Temperature afebrile, heart rate 60, blood pressure 136/76. HEENT: PERRLA. Extraocular muscles intact. NECK: Supple. No carotid bruit. No thyromegaly. CHEST: Clear to auscultation. HEART: S1 and S2 regular. ABDOMEN: Soft. EXTREMITIES: Clubbing and cyanosis negative. LABORATORY DATA: Blood workup as follows: WBC 8.3, hemoglobin 11.3, hematocrit 36.2, and platelet count 307. Chemistry shows sodium 134, potassium 4.5, chloride 96, carbon dioxide 35, anion gap of 9, BUN 22, and creatinine 0.6. IMPRESSION: A 72-year-old female with past medical history significant for nonobstructive coronary artery disease, status post cardiac catheterization, history of nonischemic cardiomyopathy, significantly improved, most recent MUGA preserved left ventricular function, history of chronic atrial fibrillation, on anticoagulation, admitted with exacerbation of chronic obstructive pulmonary disease, active tobacco abuse. Repeat echo on this admission dated 01/25/2018 showed ejection fraction within normal limit, calculated ejection fraction 55%, mild to moderate tricuspid regurgitation, mild mitral regurgitation. RECOMMENDATION: Continue anticoagulation 3 mg of Coumadin, INR is 1.74. Continue digoxin. Continue Lasix. Continue metoprolol. Continue Cardizem. Continue antibiotic. Continue lisinopril. Discharge planning: We will increase hydralazine p.r.n. for pressure probably, the patient sometimes the readings are 136. We will give p.r.n. hydralazine rather than standing dose of medication. If remaining stable, we will sign off tomorrow. Further recommendation depending on hospital course. We will follow with you. Thank you, Dr. Sparrow, for providing us the opportunity in taking care of the patient, Alecia Arciniega. Mak Mendez MD
[2018-01-28] MEDS: diltiaZEM 120 mg/24 Hours CD Cap PO SCH ×2 (22:41→22:42)
[2018-01-29] MEDS: Albuterol-Ipratrop 3 mg / 0.5 (3 ml) UD IH SCH ×3 (04:53→11:10)
[2018-01-29] MEDS: Pantoprazole 40 mg EC Tab PO SCH (05:12)
[2018-01-29 06:34] LABS: ALB/GLOB RATIO 1.4 (1.1-1.8); ALBUMIN 3.4 g/dL (3.0-4.8); ALT/SGPT 75 U/L (7-56); AST/SGOT 37 U/L (14-36); BLOOD UREA NITROGEN 20 mg/dL (7-21); CALCIUM 9.1 mg/dL (8.4-10.5); GFR NON-AFRICAN AMERICAN > 60; GRAN # 6.57 (1.4-6.5); GRAN % 78.1 % (50.0-68.0); HEMOGLOBIN 11.7 g/dL (12.0-16.0); LYMPH # 1.3 (1.2-3.4); LYMPH % 15.4 % (22.0-35.0); MEAN CELL VOLUME 89.5 fl (80.0-105.0); MEAN CORPUSCULAR HEMOGLOBIN 28.7 pg (25.0-35.0); MEAN CORPUSCULAR HGB CONC 32.1 g/dl (31.0-37.0); MEAN PLATELET VOLUME 8.6 fl (7.0-11.0); MONO # 0.6 (0.1-0.6); MONO % 6.5 % (1.0-6.0); RBC 4.08 10^6/uL (3.5-6.1); RED CELL DISTRIBUTION WIDTH 14.8 % (11.5-14.5); WHITE BLOOD COUNT 8.4 10^3/uL (4.5-11.0)
[2018-01-29] MEDS: Budesonide 0.5 mg/2 ml Inhal Susp UD IH SCH (07:36)
[2018-01-29 08:39] VITALS: BP 145/88; PULSE 57; RESP 19; TEMP 97.5; O2SAT 100
[2018-01-29 09:48] LABS: INR 1.86; PROTHROMBIN TIME 21.7 SECONDS (9.4-12.5)
[2018-01-29] MEDS ORDERED: Cefpodoxime (Vantin) 200 mg Tab PO SCH (10:00)
--- NOTE | 2018-01-29 13:32 | PN ---
DATE: 01/29/2018 SUBJECTIVE: In short, the patient is 72-year-old female, reported history of COPD, history of depression. The patient is under the care of Dr. Mendez. The patient was admitted for COPD exacerbation. The patient required ICU admission for inability to breathe properly. The patient was downgraded on the medical side. The patient was seen by Dr. Wharton over the weekend, recommended followup by this designer writer. The patient was seen and examined. The patient presented much better to compare with last week where a rapid response was called during this designer writer's visit. The patient reported that she feels much better. The patient denied feeling anxious. Denied feeling depressed. The patient reported that right now she learned her lesson that she needs to quit smoking. The patient is chronic smoker, continued to smoke before coming to the hospital. The patient currently is on nicotine patch. Denied that she has any urge to smoke again. The patient reported that she overall feels much better. PHYSICAL EXAMINATION: VITAL SIGNS: Seems to be stable. Temperature 97.5, pulse is 57, blood pressure 145/88, respirations 19, oxygen saturation is 100. MEDICATIONS: Reviewed. The patient is on Tylenol, DuoNeb, Xanax 0.25 mg 3 times a day, Pulmicort, digoxin, Cardizem, doxycycline, Lasix, Neurontin, lidocaine, lisinopril, Ativan as needed, last dose was on 01/27/2018. The patient is on Solu-Medrol, Lopressor, Nicoderm, nystatin, Protonix, Seroquel 25 mg p.o. at the nighttime as needed for agitation, the patient got dose yesterday. The patient is on Zoloft 100 mg twice a day and warfarin. LABORATORY DATA: Labs reviewed. Most recent was from today. The patient does not have any leukocytosis. Chemistry reviewed. Urinalysis reviewed. Toxicology reviewed. MENTAL STATUS EXAMINATION: The patient presented to be alert and oriented, pleasant, cooperative, looks much younger than her chronological age. Mood described, "I feel much better." Affect was reactive mood congruent. Thought process coherent and goal directed. Thought content, the patient denied visual, auditory, tactile hallucinations. Denied paranoid ideation. The patient denied thoughts of harming herself or others. Denied intent or plan. Insight and judgment seemed to be improving. Impulses are well controlled. IMPRESSION: Most likely, the patient was in delirium stage, rule out mood disorder and anxiety disorder due to general medical condition, rule out major depressive disorder. PLAN: Continue current management. Continue current medications. The patient has followup appointment with Dr. Mendez. The patient poses no imminent danger to self or others. This designer writer will sign off. Should you have any questions, give me a call back. Thank you very much for letting me participate in care of your patient Shaila Mattson MD [facility]
--- NOTE | 2018-01-29 22:58 | CP.PCM.DIS ---
<Pal,Vega - Last Filed: 01/29/18 23:00> Provider - Provider Date of Admission: 01/24/18 17:11 Attending physician: Fabio Walters MD Time Spent in preparation of Discharge (in minutes): 35 Hospital Course - Lab Results Lab Results: Micro Results 01/25/18 11:30 Naris MRSA Culture (Admit) - Final MRSA NOT DETECTED 01/24/18 17:20 Urine Urine Culture - Final Gram Negative Percy Most Recent Lab Values WBC 8.4 10^3/uL (4.5-11.0) 01/29/18 06:00 RBC 4.08 10^6/uL (3.5-6.1) 01/29/18 06:00 Hgb 11.7 g/dL (12.0-16.0) L 01/29/18 06:00 Hct 36.5 % (36.0-48.0) 01/29/18 06:00 MCV 89.5 fl (80.0-105.0) 01/29/18 06:00 MCH 28.7 pg (25.0-35.0) 01/29/18 06:00 MCHC 32.1 g/dl (31.0-37.0) 01/29/18 06:00 RDW 14.8 % (11.5-14.5) H 01/29/18 06:00 Plt Count 304 10^3/uL (120.0-450.0) 01/29/18 06:00 MPV 8.6 fl (7.0-11.0) 01/29/18 06:00 Gran % 78.1 % (50.0-68.0) H 01/29/18 06:00 Lymph % (Auto) 15.4 % (22.0-35.0) L 01/29/18 06:00 [place] % (Auto) 6.5 % (1.0-6.0) H 01/29/18 06:00 Eos % (Auto) 0.0 % (1.5-5.0) L 01/29/18 06:00 Baso % (Auto) 0.0 % (0.0-3.0) 01/29/18 06:00 Gran # 6.57 (1.4-6.5) H 01/29/18 06:00 Lymph # (Auto) 1.3 (1.2-3.4) 01/29/18 06:00 [place] # (Auto) 0.6 (0.1-0.6) 01/29/18 06:00 Eos # (Auto) 0.0 (0.0-0.7) 01/29/18 06:00 Baso # (Auto) 0.00 K/mm3 (0.0-2.0) 01/29/18 06:00 PT 21.7 SECONDS (9.4-12.5) H 01/29/18 09:15 INR 1.86 01/29/18 09:15 APTT 38.4 Seconds (25.1-36.5) H 01/26/18 20:06 pCO2 54 mm/Hg (35-45) H 01/26/18 06:30 pO2 87.0 mm/Hg (80-100) 01/26/18 06:30 HCO3 34.2 mmol/L (21-28) H 01/26/18 06:30 ABG pH 7.41 (7.35-7.45) 01/26/18 06:30 ABG Total CO2 35.9 mmol.L (22-28) H 01/26/18 06:30 ABG O2 Saturation 98.3 % (95-98) H 01/26/18 06:30 ABG O2 Content 14.6 ML/dl (15-23) L 01/26/18 06:30 ABG Base Excess 8.2 mmol/L (-2.0-3.0) H 01/26/18 06:30 ABG Hemoglobin 10.7 g/dL (11.7-17.4) L 01/26/18 06:30 ABG Carboxyhemoglobin 1.5 % (0.5-1.5) 01/26/18 06:30 POC ABG HHb (Measured) 1.7 % (0-5) 01/26/18 06:30 ABG Methemoglobin 0.8 % (0.0-3.0) 01/26/18 06:30 ABG O2 Capacity 14.9 mL/dl (16-24) L 01/26/18 06:30 ABG Potassium 3.9 mmol/L (3.6-5.2) 01/25/18 19:55 VBG pH 7.35 (7.32-7.43) 01/24/18 23:35 VBG pCO2 57.0 (40-60) 01/24/18 23:35 VBG HCO3 31.5 mmol/l (21-28) H 01/24/18 23:35 VBG Total CO2 33.2 mmol.L (22-28) H 01/24/18 23:35 VBG O2 Sat (Calc) 92.3 % (40-65) H 01/24/18 23:35 VBG Base Excess 4.3 mmol/L (0.0-2.0) H 01/24/18 23:35 VBG Potassium 4.3 mmol/L (3.6-5.2) 01/24/18 23:35 Hgb O2 Saturation 96.0 % (95.0-98.0) 01/26/18 06:30 Sodium 134.0 mmol/L (132-148) 01/25/18 19:55 Chloride 98.0 mmol/L (98-107) 01/25/18 19:55 Glucose 136 mg/dl (65-105) H 01/25/18 19:55 Lactate 1.0 mmol/L (0.7-2.1) 01/25/18 19:55 FiO2 35.0 % 01/26/18 06:30 Inspiratory BiPAP 14 01/25/18 13:00 Sodium 135 mmol/L (132-148) 01/29/18 06:00 Potassium 4.5 mmol/L (3.6-5.0) 01/29/18 06:00 Chloride 94 mmol/L (98-107) L 01/29/18 06:00 Carbon Dioxide 35 mmol/L (21-33) H 01/29/18 06:00 Anion Gap 11 (10-20) 01/29/18 06:00 BUN 20 mg/dL (7-21) 01/29/18 06:00 Creatinine 0.6 mg/dl (0.7-1.2) L 01/29/18 06:00 Est GFR ( Amer) > 60 01/29/18 06:00 Est GFR (Non-Af Amer) > 60 01/29/18 06:00 Random Glucose 107 mg/dL (70-110) 01/29/18 06:00 Calcium 9.1 mg/dL (8.4-10.5) 01/29/18 06:00 Phosphorus 4.2 mg/dL (2.5-4.5) 01/29/18 06:00 Magnesium 1.7 mg/dL (1.7-2.2) 01/29/18 06:00 Total Bilirubin 0.3 mg/dL (0.2-1.3) 01/29/18 06:00 AST 37 U/L (14-36) H D 01/29/18 06:00 ALT 75 U/L (7-56) H 01/29/18 06:00 Alkaline Phosphatase 50 U/L (38-126) 01/29/18 06:00 Troponin I 0.02 ng/mL D 01/25/18 11:12 NT-Pro-B Natriuret Pep 7410 pg/mL (0-450) H 01/24/18 15:00 Total Protein 5.8 g/dL (5.8-8.3) 01/29/18 06:00 Albumin 3.4 g/dL (3.0-4.8) 01/29/18 06:00 Globulin 2.4 gm/dL 01/29/18 06:00 Albumin/Globulin Ratio 1.4 (1.1-1.8) 01/29/18 06:00 TSH 3rd Generation 0.50 mIU/mL (0.46-4.68) 01/25/18 05:15 Arterial Blood Potassium 3.9 mmol/L (3.6-5.2) 01/25/18 19:55 Venous Blood Potassium 4.3 mmol/L (3.6-5.2) 01/24/18 23:35 Urine Color yellow (YELLOW) 01/24/18 17:20 Urine Appearance Clear (CLEAR) 01/24/18 17:20 Urine pH 6.5 (4.7-8.0) 01/24/18 17:20 Ur Specific [place] 1.010 (1.005-1.035) 01/24/18 17:20 Urine Protein Negative mg/dL (<30 mg/dL) 01/24/18 17:20 Urine Glucose (UA) Negative mg/dL (NEGATIVE) 01/24/18 17:20 Urine Ketones Negative mg/dL (NEGATIVE) 01/24/18 17:20 Urine Blood Negative (NEGATIVE) 01/24/18 17:20 Urine Nitrate Negative (NEGATIVE) 01/24/18 17:20 Urine Bilirubin Negative (NEGATIVE) 01/24/18 17:20 Urine Urobilinogen 0.2 E.U./dL (<1 E.U./dL) 01/24/18 17:20 Ur Leukocyte Esterase Trace Moo/uL (NEGATIVE) H 01/24/18 17:20 Urine RBC TEST NOT PERFORMED 01/24/18 17:20 Urine WBC 1 - 3 /hpf (0-6) 01/24/18 17:20 Ur Epithelial Cells 3 - 4 /hpf (0-5) 01/24/18 17:20 Digoxin 1.7 ng/mL (0.8-2.0) 01/26/18 11:30 - Hospital Course Hospital Course: Vega Yi, PGY1 Discharge Summary for Dr. Walters 72 F with pertinent history of COPD, diastolic CHF, and A-Fib on Coumadin presents with "several years" duration of shortness of breath. Patient is very poor historian with anxiety. Patient did say that the shortness of breath has gotten worse in the past couple of days and that her nebulizer treatments have not helped. She further states that the last couple of days she has had more bilateral pedal edema than usual, despite taking her Rx'd lasix. Patient also reports taking a "low dose" of Coumadin after being advised to do so by Dr. Casas's nurse. Patient denies chest pain, dizziness, palpitations. Patient was admitted for SOB / CHF vs COPD exacerbation. On 01/25, [facility]MER was called for respiratory distress. ABG showed hypercapnic respiratory acidosiss. Patient placed on BiPAP and transferred to ICU. She was stabilized in ICU. Responded well to IV lasix, nebs, and steroids. Transferred to tele. Patient has been on [place] for oxygen supp during day and biPAP at night. Patient INR also has been therapeutic and she has been restarted on her warfarin for her a-fib. On the floor, patient has clinically improved in regards to her shortness of breath. Patient has been evaluated by PT. She has mild unsteady gait but has been able to ambulate. Patient is recommended home with services. Patient was also consulted on the importance of smoking cessation and to continue to use her home oxygen. She verbalized understanding. Patient will be discharged home and resume her home meds with tapering of steroids. Discharge Exam - Head Exam Head Exam: ATRAUMATIC, NORMAL INSPECTION, NORMOCEPHALIC - Eye Exam Eye Exam: EOMI, Normal appearance, PERRL Pupil Exam: NORMAL ACCOMODATION, PERRL - ENT Exam ENT Exam: Mucous Membranes Moist, Normal Exam - Respiratory Exam Respiratory Exam: NORMAL BREATHING PATTERN. absent: Rales, Rhonchi, Wheezes - Cardiovascular Exam Cardiovascular Exam: RRR, +S1, +S2 - GI/Abdominal Exam GI & Abdominal Exam: Normal Bowel Sounds - Extremities Exam Extremities exam: normal capillary refill, pedal pulses present - Neurological Exam Neurological exam: Alert, CN II-XII Intact, Normal Gait, Oriented x3, Reflexes Normal - Psychiatric Exam Psychiatric exam: Normal Affect, Normal Mood - Skin Skin Exam: Dry, Intact, Normal Color, Warm Discharge Plan - Discharge Medications Prescriptions: Methylprednisolone [Medrol Dose Pack (21 tabs)] 4 mg PO DAILY #21 mg Warfarin [Coumadin] 3 mg PO DAILY #14 tab - Follow Up Plan Condition: STABLE Disposition: HOME/ ROUTINE Instructions: Exacerbation of COPD (DC), Breathing Exercises Additional Instructions: Please continue your home medications as prescribed. Your warfarin dose has changed to 3 mg daily. You are also given a Medrol dose pack. Please take as prescribed. Please followup with a Primary Care Physician within 3-4 days of discharge. Please return to the Emergency Department if symptoms reoccur. <Fabio Walters - Last Filed: 01/30/18 08:53> Provider - Provider Date of Admission: 01/24/18 17:11 Attending physician: Fabio Walters MD Hospital Course - Lab Results Lab Results: Micro Results 01/25/18 11:30 Naris MRSA Culture (Admit) - Final MRSA NOT DETECTED 01/24/18 17:20 Urine Urine Culture - Final Gram Negative Percy Most Recent Lab Values WBC 8.4 10^3/uL (4.5-11.0) 01/29/18 06:00 RBC 4.08 10^6/uL (3.5-6.1) 01/29/18 06:00 Hgb 11.7 g/dL (12.0-16.0) L 01/29/18 06:00 Hct 36.5 % (36.0-48.0) 01/29/18 06:00 MCV 89.5 fl (80.0-105.0) 01/29/18 06:00 MCH 28.7 pg (25.0-35.0) 01/29/18 06:00 MCHC 32.1 g/dl (31.0-37.0) 01/29/18 06:00 RDW 14.8 % (11.5-14.5) H 01/29/18 06:00 Plt Count 304 10^3/uL (120.0-450.0) 01/29/18 06:00 MPV 8.6 fl (7.0-11.0) 01/29/18 06:00 Gran % 78.1 % (50.0-68.0) H 01/29/18 06:00 Lymph % (Auto) 15.4 % (22.0-35.0) L 01/29/18 06:00 [place] % (Auto) 6.5 % (1.0-6.0) H 01/29/18 06:00 Eos % (Auto) 0.0 % (1.5-5.0) L 01/29/18 06:00 Baso % (Auto) 0.0 % (0.0-3.0) 01/29/18 06:00 Gran # 6.57 (1.4-6.5) H 01/29/18 06:00 Lymph # (Auto) 1.3 (1.2-3.4) 01/29/18 06:00 [place] # (Auto) 0.6 (0.1-0.6) 01/29/18 06:00 Eos # (Auto) 0.0 (0.0-0.7) 01/29/18 06:00 Baso # (Auto) 0.00 K/mm3 (0.0-2.0) 01/29/18 06:00 PT 21.7 SECONDS (9.4-12.5) H 01/29/18 09:15 INR 1.86 01/29/18 09:15 APTT 38.4 Seconds (25.1-36.5) H 01/26/18 20:06 pCO2 54 mm/Hg (35-45) H 01/26/18 06:30 pO2 87.0 mm/Hg (80-100) 01/26/18 06:30 HCO3 34.2 mmol/L (21-28) H 01/26/18 06:30 ABG pH 7.41 (7.35-7.45) 01/26/18 06:30 ABG Total CO2 35.9 mmol.L (22-28) H 01/26/18 06:30 ABG O2 Saturation 98.3 % (95-98) H 01/26/18 06:30 ABG O2 Content 14.6 ML/dl (15-23) L 01/26/18 06:30 ABG Base Excess 8.2 mmol/L (-2.0-3.0) H 01/26/18 06:30 ABG Hemoglobin 10.7 g/dL (11.7-17.4) L 01/26/18 06:30 ABG Carboxyhemoglobin 1.5 % (0.5-1.5) 01/26/18 06:30 POC ABG HHb (Measured) 1.7 % (0-5) 01/26/18 06:30 ABG Methemoglobin 0.8 % (0.0-3.0) 01/26/18 06:30 ABG O2 Capacity 14.9 mL/dl (16-24) L 01/26/18 06:30 ABG Potassium 3.9 mmol/L (3.6-5.2) 01/25/18 19:55 VBG pH 7.35 (7.32-7.43) 01/24/18 23:35 VBG pCO2 57.0 (40-60) 01/24/18 23:35 VBG HCO3 31.5 mmol/l (21-28) H 01/24/18 23:35 VBG Total CO2 33.2 mmol.L (22-28) H 01/24/18 23:35 VBG O2 Sat (Calc) 92.3 % (40-65) H 01/24/18 23:35 VBG Base Excess 4.3 mmol/L (0.0-2.0) H 01/24/18 23:35 VBG Potassium 4.3 mmol/L (3.6-5.2) 01/24/18 23:35 Hgb O2 Saturation 96.0 % (95.0-98.0) 01/26/18 06:30 Sodium 134.0 mmol/L (132-148) 01/25/18 19:55 Chloride 98.0 mmol/L (98-107) 01/25/18 19:55 Glucose 136 mg/dl (65-105) H 01/25/18 19:55 Lactate 1.0 mmol/L (0.7-2.1) 01/25/18 19:55 FiO2 35.0 % 01/26/18 06:30 Inspiratory BiPAP 14 01/25/18 13:00 Sodium 135 mmol/L (132-148) 01/29/18 06:00 Potassium 4.5 mmol/L (3.6-5.0) 01/29/18 06:00 Chloride 94 mmol/L (98-107) L 01/29/18 06:00 Carbon Dioxide 35 mmol/L (21-33) H 01/29/18 06:00 Anion Gap 11 (10-20) 01/29/18 06:00 BUN 20 mg/dL (7-21) 01/29/18 06:00 Creatinine 0.6 mg/dl (0.7-1.2) L 01/29/18 06:00 Est GFR ( Amer) > 60 01/29/18 06:00 Est GFR (Non-Af Amer) > 60 01/29/18 06:00 Random Glucose 107 mg/dL (70-110) 01/29/18 06:00 Calcium 9.1 mg/dL (8.4-10.5) 01/29/18 06:00 Phosphorus 4.2 mg/dL (2.5-4.5) 01/29/18 06:00 Magnesium 1.7 mg/dL (1.7-2.2) 01/29/18 06:00 Total Bilirubin 0.3 mg/dL (0.2-1.3) 01/29/18 06:00 AST 37 U/L (14-36) H D 01/29/18 06:00 ALT 75 U/L (7-56) H 01/29/18 06:00 Alkaline Phosphatase 50 U/L (38-126) 01/29/18 06:00 Troponin I 0.02 ng/mL D 01/25/18 11:12 NT-Pro-B Natriuret Pep 7410 pg/mL (0-450) H 01/24/18 15:00 Total Protein 5.8 g/dL (5.8-8.3) 01/29/18 06:00 Albumin 3.4 g/dL (3.0-4.8) 01/29/18 06:00 Globulin 2.4 gm/dL 01/29/18 06:00 Albumin/Globulin Ratio 1.4 (1.1-1.8) 01/29/18 06:00 TSH 3rd Generation 0.50 mIU/mL (0.46-4.68) 01/25/18 05:15 Arterial Blood Potassium 3.9 mmol/L (3.6-5.2) 01/25/18 19:55 Venous Blood Potassium 4.3 mmol/L (3.6-5.2) 01/24/18 23:35 Urine Color yellow (YELLOW) 01/24/18 17:20 Urine Appearance Clear (CLEAR) 01/24/18 17:20 Urine pH 6.5 (4.7-8.0) 01/24/18 17:20 Ur Specific [place] 1.010 (1.005-1.035) 01/24/18 17:20 Urine Protein Negative mg/dL (<30 mg/dL) 01/24/18 17:20 Urine Glucose (UA) Negative mg/dL (NEGATIVE) 01/24/18 17:20 Urine Ketones Negative mg/dL (NEGATIVE) 01/24/18 17:20 Urine Blood Negative (NEGATIVE) 01/24/18 17:20 Urine Nitrate Negative (NEGATIVE) 01/24/18 17:20 Urine Bilirubin Negative (NEGATIVE) 01/24/18 17:20 Urine Urobilinogen 0.2 E.U./dL (<1 E.U./dL) 01/24/18 17:20 Ur Leukocyte Esterase Trace Moo/uL (NEGATIVE) H 01/24/18 17:20 Urine RBC TEST NOT PERFORMED 01/24/18 17:20 Urine WBC 1 - 3 /hpf (0-6) 01/24/18 17:20 Ur Epithelial Cells 3 - 4 /hpf (0-5) 01/24/18 17:20 Digoxin 1.7 ng/mL (0.8-2.0) 01/26/18 11:30 Attending/Attestation - Attestation I have personally seen and examined this patient.: Yes I have fully participated in the care of the patient.: Yes I have reviewed all pertinent clinical information, including history, physical exam and plan: Yes Notes (Text): 01/29/18 72 year old female with past medical history of COPD, afib, diastolic CHF and active tobacco use who presented with complaint of shortness of breath secondary to COPD exacerbation and acute on chronic diastolic CHF exacerbation. She was started on duonebs, iv steroids and lasix. Pulmonary and cardiology were following the patient. Hospital course was complicated few days prior with acute hypercapneic respiratory failure require bipap. She has responded well since with iv steroids and iv lasix. She was on home oxygen prior but states she stopped using it because she didn't need it. She has now been off oxygen nasal cannula today. She ambulating with physical therapy which she tolerated well. Patient is discharged home today with home services. Follow up with pmd. Counselled on smoking cessation. Fabio Walters MD Hospitalist.
== END 2018-01-29 14:40 | disposition home or self-care (01) | DRG 291 ==
LOC: ED 13:45 → ERH 17:11 → 2RNO 19:06 → ICU 01-25 11:21 → CCU 01-25 12:42 → 3RSO 01-26 19:59
PROVIDERS: ADMIT Internal Medicine; ATTEND Internal Medicine
PROC: 5A09357 Assistance with Respiratory Ventilation, Less than 24 Consecutive Hours, Continuous Positive Airway Pressure (ICD-10-PCS; principal; 2018-01-24)
DX: I11.0 Hypertensive heart disease with heart failure (principal); J96.02 Acute respiratory failure with hypercapnia; J44.1 Chronic obstructive pulmonary disease with (acute) exacerbation; I50.33 Acute on chronic diastolic (congestive) heart failure; I27.23 Pulmonary hypertension due to lung diseases and hypoxia; I42.9 Cardiomyopathy, unspecified; I48.2 Chronic atrial fibrillation; I08.3 Combined rheumatic disorders of mitral, aortic and tricuspid valves; I25.10 Atherosclerotic heart disease of native coronary artery without angina pectoris; F17.210 Nicotine dependence, cigarettes, uncomplicated; F32.9 Major depressive disorder, single episode, unspecified; F41.9 Anxiety disorder, unspecified; K21.9 Gastro-esophageal reflux disease without esophagitis; Z79.01 Long term (current) use of anticoagulants; Z99.81 Dependence on supplemental oxygen

== ENCOUNTER 2018-02-17 14:17 | Emergency (ER) | payer MEDICARE, OTHER ==
[2018-02-17 14:17] VITALS: PULSE 90; BMI 24.9
[2018-02-17] MEDS ORDERED: Sodium Chloride 0.9% 1,000 ML IV STA (14:47)
--- NOTE | 2018-02-17 14:48 | ED PDOC ---
Arrival/HPI - General Chief Complaint: Trauma Time Seen by Provider: 02/17/18 14:18 Historian: Patient - History of Present Illness Narrative History of Present Illness (Text): 02/17/18 14:50 A 72 year old female, whose past medical history includes hypertension, COPD, CHF and atrial fibrillation, brought in by EMS to the emergency department complaining of generalized weakness and multiple falls. Patient reports she fell 3 times. Notes when she fell, she was on the floor for approximately 20 minutes, and had no head trauma and no LOC. Prior to falling, patient states she experiences dizziness and has to hold onto things in her home to ambulate. Patient denies any fever, shortness of breath, or any other complaints at this time. Also, patient mentions she takes Xanax. PMD: Dr. Sifuentes Past Medical History - Provider Review Nursing Documentation Reviewed: Yes - Infectious Disease Hx of Infectious Diseases: None - Reproductive Menopause: Yes - Cardiac Hx Cardiac Disorders: Yes (A fib, cardiac cath x 1 with cardiac stent.) Hx Congestive Heart Failure: Yes (diastolic) Hx Hypertension: Yes - Pulmonary Hx Chronic Obstructive Pulmonary Disease (COPD): Yes - Neurological Hx Neurological Disorder: Yes (headaches) Hx Dizziness: Yes - HEENT Hx HEENT Disorder: No - Renal Hx Renal Disorder: No - Endocrine/Metabolic Hx Endocrine Disorders: No - Hematological/Oncological Hx Blood Disorders: No - Integumentary Hx Dermatological Disorder: No - Musculoskeletal/Rheumatological Hx Falls: Yes - Gastrointestinal Hx Gastrointestinal Disorders: Yes (reflux) - Genitourinary/Gynecological Hx Genitourinary Disorders: No - Psychiatric Hx Psychophysiologic Disorder: Yes Hx Anxiety: Yes Hx Depression: Yes Hx Substance Use: No - Surgical History Hx Cardiac Catheterization: Yes (X1) Hx Coronary Stent: Yes (unknown) Other/Comment: robotic left lower wedge resection and lymphaderectomy 06/2015, polypectomy, left lung nodule removed 2 yrs ago at [facility] benign - Anesthesia Hx Anesthesia: Yes Hx Anesthesia Reactions: No Hx Malignant Hyperthermia: No - Suicidal Assessment Feels Threatened In Home Enviroment: No Family/Social History - Physician Review Nursing Documentation Reviewed: Yes Family/Social History: No Known Family HX Smoking Status: Light Smoker < 10 Cigarettes Daily Hx Alcohol Use: No Hx Substance Use: No Allergies/Home Meds Allergies/Adverse Reactions: Allergies azithromycin [From Zithromax] Adverse Reaction (Intermediate, Verified 01/24/18 19:19) RASH "JUST DOES NOT WORK" Home Medications: Home Meds Medication Instructions Recorded Confirmed RX: Pantoprazole Sodium [Protonix] 40 mg PO ACB 10/24/17 01/24/18 Review of Systems - Physician Review All systems were reviewed & negative as marked: Yes - Review of Systems Constitutional: absent: Fevers Respiratory: absent: SOB Physical Exam - Physical Exam Narrative Physical Exam (Text): Constitutional: No acute distress. Appears drowsy, is speaking in full sentences, responds appropriately. Head: Normocephalic. Atraumatic. Eyes: PERRL. ENT: Moist mucous membranes. Neck: Supple. Cardiovascular: Regular rate. Chest: No tenderness. Respiratory: Clear to auscultation bilaterally. GI: Soft. Nontender. Nondistended. Back: No CVA tenderness. Musculoskeletal: No bony tenderness. Bilateral edema to lower extremities. Skin: No rash. Neurologic: Alert, no focal deficit. Vital Signs Reviewed: Yes Vital Signs Temp Pulse Resp BP Pulse Ox 02/17/18 14:36 98.2 F 62 18 101/59 L 95 Temperature: Afebrile Blood Pressure: Normal Pulse: Regular Respiratory Rate: Normal Appearance: Positive for: Well-Appearing, Non-Toxic, Comfortable Pain Distress: None Mental Status: Positive for: Alert and Oriented X 3, other (drowsy, speaking in full sentences, responds appropriately) Medical Decision Making ED Course and Treatment: 02/17/18 14:53 Impression: 72 year old female with generalized weakness and falls x 3. Plan: -- EKG -- Chest X-ray -- Labs -- Arterial Blood Gas -- Urine Culture -- Urinalysis -- IV Fluids -- Reassess and disposition Prior Visits: Notes and results from previous visits were reviewed. Patient was last seen in the emergency department on 01/24/2018 for intermittent shortness of breath. Patient was admitted for COPD exacerbation. Progress Notes: EKG: Ordered, reviewed, and independently interpreted the EKG. Rate : 60 BPM Rhythm : Atrial Fibrillation Interpretation : No ST-segment elevations or depressions, no T-wave inversions, normal intervals. Comparison : No previous EKG for comparison. Patient refuses to be admitted, wishes to go home. Informed of risk of or permanent disability. Patient understood and has capacity. - Scribe Statement The provider has reviewed the documentation as recorded by the Niraj Baker Provider Scribe Attestation: All medical record entries made by the Scribe were at my direction and personally dictated by me. I have reviewed the chart and agree that the record accurately reflects my personal performance of the history, physical exam, medical decision making, and the department course for this patient. I have also personally directed, reviewed, and agree with the discharge instructions and disposition. Disposition/Present on Arrival - Present on Arrival Any Indicators Present on Arrival: No History of DVT/PE: No History of Uncontrolled Diabetes: No Urinary Catheter: No History of Decub. Ulcer: No History Surgical Site Infection Following: None - Disposition Have Diagnosis and Disposition been Completed?: Yes Diagnosis: General weakness Disposition: AGAINST MEDICAL ADVICE Disposition Time: 15:48 Condition: UNKNOWN Discharge Instructions (ExitCare): Generalized Weakness (DC), Leaving Against Medical Advice Forms: [facility] (Jamaican)
[2018-02-17 14:57] VITALS: BP 101/59; PULSE 62; RESP 18; TEMP 98.2; O2SAT 95
[2018-02-17 15:13] LABS: URINE BILIRUBIN NEGATIVE (NEGATIVE); URINE BLOOD NEGATIVE (NEGATIVE); URINE GLUCOSE (UA) NEGATIVE (NEGATIVE); URINE LEUKOCYTE ESTERASE SMALL Leu/uL (NEGATIVE); URINE PROTEIN NEGATIVE mg/dL (<30 mg/dL); URINE UROBILINOGEN 0.2 E.U./dL (<1 E.U./dL)
[2018-02-17 15:15] LABS: BASO # 0.01 K/mm3 (0.0-2.0); BASO % 0.1 % (0.0-3.0); EOS % 0.2 % (1.5-5.0); GRAN # 11.4 (1.4-6.5); GRAN % 88.5 % (50.0-68.0); HEMOGLOBIN 11.4 g/dL (12.0-16.0); LYMPH # 0.8 (1.2-3.4); LYMPH % 6.1 % (22.0-35.0); MEAN CELL VOLUME 88.3 fl (80.0-105.0); MEAN CORPUSCULAR HEMOGLOBIN 29.1 pg (25.0-35.0); MEAN CORPUSCULAR HGB CONC 32.9 g/dl (31.0-37.0); MEAN PLATELET VOLUME 8.7 fl (7.0-11.0); MONO # 0.7 (0.1-0.6); MONO % 5.1 % (1.0-6.0); RBC 3.92 10^6/uL (3.5-6.1); RED CELL DISTRIBUTION WIDTH 15.8 % (11.5-14.5); WHITE BLOOD COUNT 12.9 10^3/uL (4.5-11.0)
[2018-02-17 15:29] LABS: ALB/GLOB RATIO 1.5 (1.1-1.8); ALBUMIN 3.7 g/dL (3.0-4.8); ALT/SGPT 44 U/L (7-56); AST/SGOT 33 U/L (14-36); BLOOD UREA NITROGEN 9 mg/dL (7-21); CALCIUM 9.2 mg/dL (8.4-10.5); GFR NON-AFRICAN AMERICAN > 60
[2018-02-17 15:33] LABS: URINE APPEARANCE CLEAR (CLEAR); URINE COLOR YELLOW (YELLOW)
[2018-02-17 15:35] LABS: TROPONIN I < 0.01 ng/mL
[2018-02-17 15:36] LABS: ARTERIAL BLOOD GAS HCO3 27.3 mmol/L (21-28); ARTERIAL BLOOD GAS HEMOGLOBIN 10.7 g/dL (11.7-17.4); ARTERIAL BLOOD GAS O2 CAPACITY 14.5 mL/dl (16-24); ARTERIAL BLOOD GAS O2 SAT 96.6 % (95-98); ARTERIAL BLOOD GAS PCO2 43 mm/Hg (35-45); ARTERIAL BLOOD GAS PH 7.41 (7.35-7.45); ARTERIAL BLOOD GAS TCO2 28.6 mmol.L (22-28)
[2018-02-17 15:40] LABS: URINE EPITHELIAL CELLS 0 - 2 /hpf (0-5); URINE RBC NEGATIVE /hpf (0-2); URINE WBC 0 - 2 /hpf (0-6)
[2018-02-17 15:55] LABS: INR 2.95; PROTHROMBIN TIME 34.4 SECONDS (9.4-12.5)
--- NOTE | 2018-02-17 16:29 | RAD ---
HISTORY: gen weakness COMPARISON: Chest x-ray performed 01/27/18 TECHNIQUE: Chest, one view. FINDINGS: LUNGS: No focal consolidation. Please note that chest x-ray has limited sensitivity for the detection of pulmonary masses. PLEURA: No significant pleural effusion identified. No definite pneumothorax . CARDIOVASCULAR: Heart size appears within normal limits. Atherosclerotic calcification present. OSSEOUS STRUCTURES: Degenerative changes. VISUALIZED UPPER ABDOMEN: Unremarkable. OTHER FINDINGS: None. IMPRESSION: No focal consolidation.
--- NOTE | 2018-02-18 09:27 | CARD ---
APPROVED REPORT Date of service: 02/17/2018 EKG Measurement Heart [id number] <Conclusion> Atrial fibrillation NSSTW changes No change
== END 2018-02-17 15:50 | disposition left against medical advice (07) ==
LOC: ED 14:17
DX: R53.1 Weakness (principal); I11.0 Hypertensive heart disease with heart failure; I50.30 Unspecified diastolic (congestive) heart failure; I48.91 Unspecified atrial fibrillation; J44.1 Chronic obstructive pulmonary disease with (acute) exacerbation; R29.6 Repeated falls; Z95.5 Presence of coronary angioplasty implant and graft; F17.210 Nicotine dependence, cigarettes, uncomplicated

== ENCOUNTER 2018-03-10 21:52 | Inpatient (IN) | payer MEDICARE, OTHER ==
--- NOTE | 2018-03-10 22:45 | ED PDOC ---
Arrival/HPI - General Chief Complaint: Chest Pain Time Seen by Provider: 03/10/18 22:03 Historian: Patient - History of Present Illness Narrative History of Present Illness (Text): 03/10/18 22:43 Alecia Arciniega is a 72 year old female, whose past medical history includes atrial fibrillation on Coumadin, COPD, diastolic CHF, hypertension, and anxiety, who presents to the Emergency department complaining of chest pain. Patient states she has been experiencing intermittent sharp chest pain radiating down her arm to her wrist throughout today. Patient also notes some nausea and an ulcer to her right mayes. Patient denies any fever, chills, shortness of breath, nausea, vomiting, diarrhea, urinary symptoms, back pain, neck pain, headache, dizziness, or any other complaints. PMD: Dr. Casas Ap Processor: Dr. Mendez Symptom Onset: Gradual Symptom Course: Unchanged Activities at Onset: Light Context: Home Past Medical History - Provider Review Nursing Documentation Reviewed: Yes - Infectious Disease Hx of Infectious Diseases: None - Reproductive Menopause: Yes - Cardiac Hx Cardiac Disorders: Yes (A fib, cardiac cath x 1 with cardiac stent.) Hx Congestive Heart Failure: Yes (diastolic) Hx Hypertension: Yes - Pulmonary Hx Chronic Obstructive Pulmonary Disease (COPD): Yes - Neurological Hx Neurological Disorder: Yes (headaches) Hx Dizziness: Yes - HEENT Hx HEENT Disorder: No - Renal Hx Renal Disorder: No - Endocrine/Metabolic Hx Endocrine Disorders: No - Hematological/Oncological Hx Blood Disorders: No - Integumentary Hx Dermatological Disorder: No - Musculoskeletal/Rheumatological Hx Falls: Yes - Gastrointestinal Hx Gastrointestinal Disorders: Yes (reflux) - Genitourinary/Gynecological Hx Genitourinary Disorders: No - Psychiatric Hx Psychophysiologic Disorder: Yes Hx Anxiety: Yes Hx Depression: Yes Hx Substance Use: No - Surgical History Hx Cardiac Catheterization: Yes (X1) Hx Coronary Stent: Yes (unknown) Other/Comment: robotic left lower wedge resection and lymphaderectomy 06/2015, polypectomy, left lung nodule removed 2 yrs ago at [facility] benign - Anesthesia Hx Anesthesia: Yes Hx Anesthesia Reactions: No Hx Malignant Hyperthermia: No - Suicidal Assessment Feels Threatened In Home Enviroment: No Family/Social History - Physician Review Nursing Documentation Reviewed: Yes Family/Social History: Unknown Family HX Smoking Status: Light Smoker < 10 Cigarettes Daily Hx Alcohol Use: No Hx Substance Use: No Allergies/Home Meds Allergies/Adverse Reactions: Allergies azithromycin [From Zithromax] Adverse Reaction (Intermediate, Verified 01/24/18 19:19) RASH "JUST DOES NOT WORK" Home Medications: Home Meds Medication Instructions Recorded Confirmed Pantoprazole Sodium [Protonix] 40 mg PO ACB 10/24/17 01/24/18 Review of Systems - Physician Review All systems were reviewed & negative as marked: Yes - Review of Systems Constitutional: Normal. absent: Fevers Eyes: Normal ENT: Normal Respiratory: Normal. absent: SOB, Cough Cardiovascular: Chest Pain Gastrointestinal: Normal. absent: Abdominal Pain, Diarrhea, Vomiting Genitourinary Female: Normal. absent: Dysuria, Frequency, Hematuria, Urine Output Changes Musculoskeletal: Normal. absent: Back Pain, Neck Pain Skin: Normal. absent: Rash Neurological: Normal. absent: Headache, Dizziness Endocrine: Normal Hemo/Lymphatic: Normal Psychiatric: Normal Physical Exam Vital Signs Reviewed: Yes Temperature: Afebrile Blood Pressure: Normal Pulse: Regular Respiratory Rate: Normal Appearance: Positive for: Well-Appearing, Non-Toxic, Comfortable Pain Distress: None Mental Status: Positive for: Alert and Oriented X 3 - Systems Exam Head: Present: Atraumatic, Normocephalic Pupils: Present: PERRL Extroacular Muscles: Present: EOMI Conjunctiva: Present: Normal Mouth: Present: Moist Mucous Membranes Neck: Present: Normal Range of Motion Respiratory/Chest: Present: Clear to Auscultation, Good Air Exchange. No: Respiratory Distress, Accessory Muscle Use Cardiovascular: Present: Regular Rate and Rhythm, Normal S1, S2. No: Murmurs Abdomen: No: Tenderness, Distention, Peritoneal Signs Back: Present: Normal Inspection Upper Extremity: Present: Normal Inspection. No: Cyanosis, Edema Lower Extremity: Present: Other (Cavitated 2.5cm ulcer with some purulent discharge at the base and surrounding erythema). No: Edema, Tenderness, Erythema Neurological: Present: GCS=15, CN II-XII Intact, Speech Normal Skin: Present: Warm, Dry, Normal Color. No: Rashes Psychiatric: Present: Alert, Oriented x 3, Normal Insight, Normal Concentration Medical Decision Making ED Course and Treatment: 03/10/18 22:43 Impression: 72 year old female complaining of chest pain. Plan: -- EKG -- Chest X-ray -- Labs, cardiac enzymes, blood cultures -- Wound cultures -- Reassess and disposition Prior Visits: Notes and results from previous visits were reviewed. Progress Notes: Reviewed EKG, a fib at 59 bpm. Non-specific ST/T wave changes. 03/11/18 00:53 Chest X-ray reviewed, shows no acute processes. 03/11/18 00:[address] Aaron, who is aware and agrees with plan. Accepts pt in to hospitalist service. Pt will go to Telemetry observation for chest pain and infected leg ulcer. 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 - Lab Interpretations I have reviewed the lab results: Yes - RAD Interpretation Criminal Investigative Agent: ED Physician - EKG Interpretation Interpreted by ED Physician: Yes Type: 12 lead EKG - Scribe Statement The provider has reviewed the documentation as recorded by the Scribe Silvia Lion Provider Scribe Attestation: All medical record entries made by the Scribe were at my direction and personally dictated by me. I have reviewed the chart and agree that the record accurately reflects my personal performance of the history, physical exam, medical decision making, and the department course for this patient. I have also personally directed, reviewed, and agree with the discharge instructions and disposition. Disposition/Present on Arrival - Present on Arrival Any Indicators Present on Arrival: No History of DVT/PE: No History of Uncontrolled Diabetes: No Urinary Catheter: No History of Decub. Ulcer: No History Surgical Site Infection Following: None - Disposition Have Diagnosis and Disposition been Completed?: Yes Diagnosis: Chest pain, Infected ulcer of skin Disposition: HOSPITALIZED Disposition Time: 01:01 Condition: STABLE Discharge Instructions (ExitCare): Chest Pain (ED) Referrals: Mak Mendez MD [Primary Care Provider] - Follow up with primary Forms: Tomveyi Bidamon (Albanian)
[2018-03-10 23:35] LABS: HEMOGLOBIN 11.4 g/dL (12.0-16.0); MEAN CELL VOLUME 85.6 fl (80.0-105.0); MEAN CORPUSCULAR HEMOGLOBIN 28.7 pg (25.0-35.0); MEAN CORPUSCULAR HGB CONC 33.5 g/dl (31.0-37.0); MEAN PLATELET VOLUME 8.5 fl (7.0-11.0); RBC 3.97 10^6/uL (3.5-6.1); RED CELL DISTRIBUTION WIDTH 15.2 % (11.5-14.5); WHITE BLOOD COUNT 6.8 10^3/uL (4.5-11.0)
[2018-03-10 23:44] LABS: INR 2.6; PARTIAL THROMBOPLASTIN TIME 46.2 Seconds (25.1-36.5); PROTHROMBIN TIME 30.2 SECONDS (9.4-12.5)
[2018-03-10 23:56] LABS: TROPONIN I < 0.01 ng/mL
[2018-03-11 00:40] LABS: ALB/GLOB RATIO 1.6 (1.1-1.8); ALBUMIN 3.8 g/dL (3.0-4.8); ALT/SGPT 29 U/L (7-56); AST/SGOT 27 U/L (14-36); BLOOD UREA NITROGEN 6 mg/dL (7-21); CALCIUM 9.4 mg/dL (8.4-10.5); GFR NON-AFRICAN AMERICAN > 60
[2018-03-11] MEDS ORDERED: Potassium Chloride 20 mEq ER Tab PO STA ×2 (00:51→04:13)
[2018-03-11] MEDS ORDERED: Vancomycin 1gm in NS 250ml 1 GM/250 ML BAG IVPB STA (00:55)
[2018-03-11] MEDS ORDERED: cefTRIAXone 1 gm 1 GM/100 ML BAG IV STA (00:57)
--- NOTE | 2018-03-11 02:34 | CP.PCM.HP ---
<MelyTed - Last Filed: 03/11/18 21:24> History of Present Illness - History of Present Illness History of Present Illness: Ted Boone DO PGY1. HPI for hospitalist service C.C: chest pain 72 y/o female with PMH of Afib on warfarin, COPD, diastolic CHF, HTN, and Anxiety presents to the ED for left sided chest pain. Patient is unable to give more info about the quality or severity of the pain. She states that it occurred twice and lasted for 5 seconds while sitting. It was not associated with SOB, palpitations, diaphoresis, nausea, vomiting. She also complaints of left shoulde r and wrist pain/numbness, that is not related to the chest pain mention earlier. It is associated with neck pain and headache. She denied any trauma or heavy lifting. Limb pain is sporadic and lasts for few minutes. She did not try OTC drugs. She was concerned about KS and wanted to come to ED given her cardiac history of CHF. Patient also has right lower leg ulcer, 2x2 cm, clean, with no blood of discharge. She uses topical steroid daily. She admits to LE edema of the same leg. Can ambulate with no difficulty. Patient denies IRWIN, orthopnea, exercise intolerance, dizziness, change in bowel movement. 12 point ROS obtained and negative except as per HPI Of note, Patient got admitted twice in December and January 2018 for COPD/CHF exacerbation but today she does not present with similar symptoms. ECHO (01/2018) : EF 54% PMH: Afib, COPD, diastolic CHF, HTN, and Anxiety PSH: lipoma resection Meds: as per MAY ALL: azithromycin (rash) SH: smoked 2PPD. Now smokes <10 cigarettes a day. Denies alcohol and illicit drug use. FH: Non contributory PCP: Dr. Casas Psychiatrist: Dr. Morrow Present on Admission - Present on Admission Any Indicators Present on Admission: No Past Patient History - Infectious Disease Hx of Infectious Diseases: None - Past Medical History & Family History Past Medical History?: Yes - Past Social History Smoking Status: Light Smoker < 10 Cigarettes Daily - CARDIAC Hx Cardiac Disorders: Yes (A fib, cardiac cath x 1 with cardiac stent.) Hx Congestive Heart Failure: Yes (diastolic) Hx Hypertension: Yes - PULMONARY Hx Chronic Obstructive Pulmonary Disease (COPD): Yes - NEUROLOGICAL Hx Neurological Disorder: Yes (headaches) Hx Dizziness: Yes - HEENT Hx HEENT Problems: No - RENAL Hx Chronic Kidney Disease: No - ENDOCRINE/METABOLIC Hx Endocrine Disorders: No - HEMATOLOGICAL/ONCOLOGICAL Hx Blood Disorders: No - INTEGUMENTARY Hx Dermatological Problems: No - MUSCULOSKELETAL/RHEUMATOLOGICAL Hx Falls: Yes - GASTROINTESTINAL Hx Gastrointestinal Disorders: Yes (reflux) - GENITOURINARY/GYNECOLOGICAL Hx Genitourinary Disorders: No - PSYCHIATRIC Hx Psychophysiologic Disorder: Yes Hx Anxiety: Yes Hx Depression: Yes Hx Substance Use: No - SURGICAL HISTORY Hx Cardiac Catheterization: Yes (X1) Hx Coronary Stent: Yes (unknown) Other/Comment: robotic left lower wedge resection and lymphaderectomy 06/2015, polypectomy, left lung nodule removed 2 yrs ago at [facility] benign - ANESTHESIA Hx Anesthesia: Yes Hx Anesthesia Reactions: No Hx Malignant Hyperthermia: No Meds Allergies/Adverse Reactions: Allergies Allergy/AdvReac Type Severity Reaction Status Date / Time azithromycin [From Zithromax] AdvReac Intermediate RASH Verified 01/24/18 19:19 Physical Exam - Constitutional Appears: Well, No Acute Distress - Head Exam Head Exam: ATRAUMATIC, NORMAL INSPECTION, NORMOCEPHALIC - Eye Exam Eye Exam: EOMI, Normal appearance, PERRL Pupil Exam: NORMAL ACCOMODATION, PERRL - Respiratory Exam Respiratory Exam: Decreased Breath Sounds, Wheezes (expiratory wheezes b/l lung bases). absent: Accessory Muscle Use, Rales - Cardiovascular Exam Cardiovascular Exam: Irregular Rhythm, +S1, +S2. absent: Gallop, JVD, Rubs - GI/Abdominal Exam GI & Abdominal Exam: Normal Bowel Sounds, Soft. absent: Tenderness - Extremities Exam Extremities exam: Positive for: full ROM, normal capillary refill Additional comments: mild right LE edema - Back Exam Back exam: NORMAL INSPECTION. absent: CVA tenderness (L), CVA tenderness (R) - Neurological Exam Neurological exam: Alert, CN II-XII Intact, Normal Gait, Oriented x3, Reflexes Normal - Psychiatric Exam Psychiatric exam: Normal Affect, Normal Mood - Skin Additional comments: right lower leg ulcer. 2x2 cm, necrotic base, no blood or discharge, no erythema, no signs of infection Results - Labs Result Diagrams: 03/10/18 23:13 03/11/18 05:20 Labs: Laboratory Results - last 24 hr 03/10/18 03/10/18 03/10/18 23:13 23:13 23:13 WBC 6.8 D RBC 3.97 Hgb 11.4 L Hct 34.0 L MCV 85.6 MCH 28.7 MCHC 33.5 RDW 15.2 H Plt Count 302 MPV 8.5 PT 30.2 H INR 2.60 APTT 46.2 H Sodium 126 L Potassium 3.3 L Chloride 90 L Carbon Dioxide 30 Anion Gap 10 BUN 6 L Creatinine 0.5 L Est GFR ( Amer) > 60 Est GFR (Non-Af Amer) > 60 Random Glucose 86 Calcium 9.4 Total Bilirubin 0.4 AST 27 ALT 29 Alkaline Phosphatase 83 Lactate Dehydrogenase 458 Total Creatine Kinase 61 Troponin I < 0.01 Total Protein 6.2 Albumin 3.8 Globulin 2.4 Albumin/Globulin Ratio 1.6 Assessment & Plan - Assessment and Plan (Free Text) Assessment: 72 year old female with PMH of A fib, COPD, CHF, Anxiety, presents with chest pain. Found to have right lower leg ulcer, hponatremia hypokalemia. Admitted to telemetry for observation Plan: Chest pain: -EKG: Afib @59 bpm with slow ventricular response, Non-specific ST/T wave changes. repeat EKG in AM -trop 0.01x1 serial trop q6h x2 CHF: -diastolic CHF. Echo (01/2018) EF 54% -continue home lisinopril, lopressor -MUGA scan 08/2017: preserved EF of 56% Atrial Fibrillation: -continue home digoxin and Cardizem -continue home coumadin. INR is therapeutic. Right lower leg ulcer: -necrotic base, clean margin, no discharge, no bleeding, no signs of infection -no leukocytosis -vancomycin given in ED -blood, wound culture ordered -ID consulted Hyponatremia/hypokalemia: -Na 126/ K 3.3 on admission, likely due to lasix use -hold home lasix -potassium repleted H/O COPD: -bibasilar expiratory wheezes. in NAD -CXR: no acute finding -continue home meds Arformoterol, budesonide -supp O2 prn -duoneb q4 wil, prn Anxiety -continue home zoloft, ativan Prophylaxis: -DVT ppx: SCD -GI ppx: protonix Case reviewed and plan discussed with attending Dr Aaron <Leonor Aaron - Last Filed: 03/15/18 02:01> Results - Vital Signs Recent Vital Signs: Last Vital Signs Temp 98 F 03/13/18 12:00 Pulse 62 03/13/18 12:00 Resp 19 03/13/18 12:00 BP 141/74 03/13/18 12:00 Pulse Ox 99 03/11/18 12:49 - Labs Result Diagrams: 03/13/18 06:30 03/13/18 06:30 Attending/Attestation - Attestation I have personally seen and examined this patient.: Yes I have fully participated in the care of the patient.: Yes I have reviewed all pertinent clinical information: Yes
[2018-03-11] MEDS ORDERED: Albuterol-Ipratrop 3 mg / 0.5 (3 ml) UD IH PRN (03:56)
[2018-03-11 06:02] LABS: INR 1.97
[2018-03-11 06:08] LABS: ALB/GLOB RATIO 1.6 (1.1-1.8); ALT/SGPT 26 U/L (7-56); AST/SGOT 29 U/L (14-36); BLOOD UREA NITROGEN 5 mg/dL (7-21); CALCIUM 9.3 mg/dL (8.4-10.5); GFR NON-AFRICAN AMERICAN > 60
[2018-03-11 06:19] LABS: TROPONIN I < 0.01 ng/mL
[2018-03-11] MEDS: Pantoprazole 40 mg EC Tab PO SCH (06:48)
[2018-03-11] MEDS ORDERED: Magnesium Sulfate 2 GM in Sodium Chloride 0.9% 100 ML IVPB ONE (07:42)
[2018-03-11] MEDS ORDERED: Magnesium Sulfate 2 gm/50 ml 2 GM/50 ML BAG IVPB ONE (07:47)
[2018-03-11] MEDS ORDERED: Arformoterol 15 mcg/2 ml Inh Sol IH SCH (08:00)
[2018-03-11] MEDS: Arformoterol 15 mcg/2 ml Inh Sol IH SCH ×2 (08:35→19:44)
[2018-03-11] MEDS: Budesonide 0.5 mg/2 ml Inhal Susp UD IH SCH ×2 (08:35→19:44)
[2018-03-11] MEDS: Albuterol-Ipratrop 3 mg / 0.5 (3 ml) UD IH SCH ×3 (08:35→19:44)
--- NOTE | 2018-03-11 08:43 | CP.PCM.CON ---
<Nicolasa Shafer - Last Filed: 03/11/18 11:12> History of Present Illness - History of Present Illness History of Present Illness: ID consult: LE skin ulcer Ms Demian, 72F, with PMH of Afib on warfarin, COPD, diastolic CHF, HTN, and Anxiety c/o left sided chest pain at rest. She has chronic left shoulder and wrist pain/numbness. trops negative x 2. EKG has no significant changes. Pt was recently admitted in Dec and Jan for COPD/CHF exacerbation. Pt has a right lower leg ulcer from chronic edema started 2 months ago when her LE was swollen b/l. The ulcer has become bigger, just numb/tingly, no exudate. She uses topical steroid daily. She can ambulate with no difficulty. No recent travels. She has 2 cats at home, no animal scratches. She has no leukocytosis. No F/C. No travel. She was given vancomycin x 1 in ED ROS - denies IRWIN, orthopnea, exercise intolerance, dizziness, change in bowel movement. 12 point ROS obtained and negative except as per HPI PMH: Afib, COPD, diastolic CHF (EF 54, jan 2018), HTN, and Anxiety PSH: lipoma resection FH: Non contributory ALL: azithromycin (rash) SH: smoked 2PPD. Now smokes <10 cigarettes a day. Denies alcohol and illicit drug use. Live with daughter and granddaughter Meds: as per MAR PCP: Dr. Casas Psychiatrist: Dr. Morrow Past Patient History - Infectious Disease Hx of Infectious Diseases: None - Past Medical History & Family History Past Medical History?: Yes - Past Social History Smoking Status: Light Smoker < 10 Cigarettes Daily - CARDIAC Hx Cardiac Disorders: Yes (A fib, cardiac cath x 1 with cardiac stent.) Hx Congestive Heart Failure: Yes (diastolic) Hx Hypertension: Yes - PULMONARY Hx Chronic Obstructive Pulmonary Disease (COPD): Yes - NEUROLOGICAL Hx Neurological Disorder: Yes (headaches) Hx Dizziness: Yes - HEENT Hx HEENT Problems: No - RENAL Hx Chronic Kidney Disease: No - ENDOCRINE/METABOLIC Hx Endocrine Disorders: No - HEMATOLOGICAL/ONCOLOGICAL Hx Blood Disorders: No - INTEGUMENTARY Hx Dermatological Problems: No - MUSCULOSKELETAL/RHEUMATOLOGICAL Hx Falls: Yes - GASTROINTESTINAL Hx Gastrointestinal Disorders: Yes (reflux) - GENITOURINARY/GYNECOLOGICAL Hx Genitourinary Disorders: No - PSYCHIATRIC Hx Psychophysiologic Disorder: Yes Hx Anxiety: Yes Hx Depression: Yes Hx Substance Use: No - SURGICAL HISTORY Hx Cardiac Catheterization: Yes (X1) Hx Coronary Stent: Yes (unknown) Other/Comment: robotic left lower wedge resection and lymphaderectomy 06/2015, polypectomy, left lung nodule removed 2 yrs ago at [facility] benign - ANESTHESIA Hx Anesthesia: Yes Hx Anesthesia Reactions: No Hx Malignant Hyperthermia: No Meds Allergies/Adverse Reactions: Allergies Allergy/AdvReac Type Severity Reaction Status Date / Time azithromycin [From Zithromax] AdvReac Intermediate RASH Verified 01/24/18 19:19 - Medications Medications: Current Medications Albuterol/Ipratropium (Duoneb 3 Mg/0.5 Mg (3 Ml) Ud) 3 ml IH [id number] [facility] Last Admin: 03/11/18 08:35 Dose: 3 ml Albuterol/Ipratropium (Duoneb 3 Mg/0.5 Mg (3 Ml) Ud) 3 ml IH Q2H PRN PRN Reason: Shortness of Breath Arformoterol Tartrate (Brovana) 15 mcg IH [id number] [facility] Last Admin: 03/11/18 08:35 Dose: 15 mcg Budesonide (Pulmicort Respules) 0.5 mg IH [id number] [facility] Last Admin: 03/11/18 08:35 Dose: 0.5 mg Digoxin (Lanoxin Elixir Soln) 0.25 mg PO 1400 [facility] Diltiazem HCl (Cardizem) 120 mg PO DAILY [facility] Gabapentin (Neurontin) 400 mg PO DAILY [facility]; Protocol Lactobacillus Acidophilus (Bacid Acidophilus) 1 cap PO BID [facility] Lisinopril (Zestril) 10 mg PO DAILY [facility] Metoprolol Tartrate (Lopressor) 50 mg PO BID [facility] Last Admin: 03/11/18 06:49 Dose: Not Given Pantoprazole Sodium (Protonix Ec Tab) 40 mg PO 0600 [facility] Last Admin: 03/11/18 06:48 Dose: 40 mg Sertraline HCl (Zoloft) 200 mg PO DAILY [facility] Warfarin Sodium (Coumadin) 3 mg PO 1800 [facility]; Protocol Physical Exam - Constitutional Appears: No Acute Distress - Head Exam Head Exam: ATRAUMATIC, NORMAL INSPECTION - Eye Exam Eye Exam: EOMI, Normal appearance, PERRL Pupil Exam: NORMAL ACCOMODATION - ENT Exam ENT Exam: Mucous Membranes Moist - Neck Exam Neck exam: Positive for: Full Rom - Respiratory Exam Respiratory Exam: Clear to Auscultation Bilateral, NORMAL BREATHING PATTERN. absent: Rales, Rhonchi, Wheezes - Cardiovascular Exam Cardiovascular Exam: Irregular Rhythm, +S1, +S2. absent: Bradycardia, Tachycardia - GI/Abdominal Exam GI & Abdominal Exam: Normal Bowel Sounds, Soft. absent: Distended, Firm, Guarding, Rigid, Tenderness - Extremities Exam Extremities exam: Positive for: pedal pulses present. Negative for: calf tenderness, pedal edema Additional comments: 2inch x 2inch round leg ulcer, with dry necrotic tissue. slight erythema around, no exudate - Back Exam Back exam: absent: CVA tenderness (L), CVA tenderness (R) - Neurological Exam Neurological exam: Alert, CN II-XII Intact, Oriented x3, Reflexes Normal - Psychiatric Exam Psychiatric exam: Normal Affect, Normal Mood - Skin Skin Exam: Dry, Warm Results - Vital Signs Recent Vital Signs: Last Vital Signs Temp Pulse 54 L 03/11/18 08:02 Resp 18 03/11/18 08:02 BP 135/86 03/11/18 08:02 Pulse Ox 100 03/11/18 08:02 - Labs Result Diagrams: 03/10/18 23:13 03/11/18 05:20 Labs: Laboratory Results - last 24 hr 03/10/18 03/10/18 03/10/18 23:13 23:13 23:13 WBC 6.8 D RBC 3.97 Hgb 11.4 L Hct 34.0 L MCV 85.6 MCH 28.7 MCHC 33.5 RDW 15.2 H Plt Count 302 MPV 8.5 PT 30.2 H INR 2.60 APTT 46.2 H Sodium 126 L Potassium 3.3 L Chloride 90 L Carbon Dioxide 30 Anion Gap 10 BUN 6 L Creatinine 0.5 L Est GFR ( Amer) > 60 Est GFR (Non-Af Amer) > 60 Random Glucose 86 Calcium 9.4 Phosphorus Magnesium Total Bilirubin 0.4 AST 27 ALT 29 Alkaline Phosphatase 83 Lactate Dehydrogenase 458 Total Creatine Kinase 61 Troponin I < 0.01 Total Protein 6.2 Albumin 3.8 Globulin 2.4 Albumin/Globulin Ratio 1.6 Digoxin 03/11/18 03/11/18 03/11/18 05:20 05:20 05:20 WBC RBC Hgb Hct MCV MCH MCHC RDW Plt Count MPV PT 23.0 H INR 1.97 APTT Sodium 128 L Potassium 3.8 Chloride 91 L Carbon Dioxide 29 Anion Gap 12 BUN 5 L Creatinine 0.5 L Est GFR ( Amer) > 60 Est GFR (Non-Af Amer) > 60 Random Glucose 84 Calcium 9.3 Phosphorus 3.6 Magnesium 1.5 L Total Bilirubin 0.5 AST 29 ALT 26 Alkaline Phosphatase 86 Lactate Dehydrogenase Total Creatine Kinase Troponin I < 0.01 Total Protein 6.6 Albumin 4.0 Globulin 2.6 Albumin/Globulin Ratio 1.6 Digoxin 1.9 Assessment & Plan - Assessment and Plan (Free Text) Plan: Ms Arciniega, 72F, with PMH of Afib on warfarin, COPD, diastolic CHF, HTN, and Anxiety c/o left sided chest pain at rest. trops negative x 2. EKG has no significant changes. Pt was recently admitted in Dec and Jan for COPD/CHF exacerbation. Pt has a right lower leg ulcer from chronic edema started 2 months ago when her LE was swollen b/l. She uses topical steroid daily. Open skin ulcer on RLE with slight erythema and necrotic base Local infection vs local inflammatory reaction to healing Allergy to azithromycin Cat exposure at home - Per podiatrym hydrocolloid dressing to soften the necrotic base - then debridement to obtain wound culture in 1-2 days - follow on blood culture - observe off antibiotics for now. trend cbc, monitor clinical course <Kishore Berg - Last Filed: 03/11/18 14:15> Meds - Medications Medications: Current Medications Acetaminophen (Tylenol 325mg Tab) 650 mg PO Q6H PRN PRN Reason: Fever >100.4 F Last Admin: 03/11/18 12:27 Dose: 650 mg Albuterol/Ipratropium (Duoneb 3 Mg/0.5 Mg (3 Ml) Ud) 3 ml IH [id number] [facility] Last Admin: 03/11/18 13:46 Dose: 3 ml Albuterol/Ipratropium (Duoneb 3 Mg/0.5 Mg (3 Ml) Ud) 3 ml IH Q2H PRN PRN Reason: Shortness of Breath Arformoterol Tartrate (Brovana) 15 mcg IH [id number] [facility] Last Admin: 03/11/18 08:35 Dose: 15 mcg Budesonide (Pulmicort Respules) 0.5 mg IH [id number] [facility] Last Admin: 03/11/18 08:35 Dose: 0.5 mg Digoxin (Lanoxin) 0.25 mg PO 1400 [facility] Diltiazem HCl (Cardizem) 120 mg PO DAILY [facility] Last Admin: 03/11/18 09:18 Dose: 120 mg Gabapentin (Neurontin) 400 mg PO DAILY [facility]; Protocol Last Admin: 03/11/18 09:18 Dose: 400 mg Lactobacillus Acidophilus (Bacid Acidophilus) 1 cap PO BID [facility] Last Admin: 03/11/18 09:18 Dose: 1 cap Lisinopril (Zestril) 10 mg PO DAILY [facility] Last Admin: 03/11/18 09:17 Dose: 10 mg Metoprolol Tartrate (Lopressor) 50 mg PO BID [facility] Last Admin: 03/11/18 09:17 Dose: 50 mg Pantoprazole Sodium (Protonix Ec Tab) 40 mg PO 0600 [facility] Last Admin: 03/11/18 06:48 Dose: 40 mg Sertraline HCl (Zoloft) 200 mg PO DAILY [facility] Last Admin: 03/11/18 09:17 Dose: 200 mg Warfarin Sodium (Coumadin) 3 mg PO 1800 [facility]; Protocol Results - Vital Signs Recent Vital Signs: Last Vital Signs Temp Pulse 47 L 03/11/18 13:24 Resp 18 03/11/18 13:24 BP 104/60 03/11/18 12:49 Pulse Ox 99 03/11/18 12:49 - Labs Result Diagrams: 03/10/18 23:13 03/11/18 05:20 Labs: Laboratory Results - last 24 hr 03/10/18 03/10/18 03/10/18 23:13 23:13 23:13 WBC 6.8 D RBC 3.97 Hgb 11.4 L Hct 34.0 L MCV 85.6 MCH 28.7 MCHC 33.5 RDW 15.2 H Plt Count 302 MPV 8.5 PT 30.2 H INR 2.60 APTT 46.2 H Sodium 126 L Potassium 3.3 L Chloride 90 L Carbon Dioxide 30 Anion Gap 10 BUN 6 L Creatinine 0.5 L Est GFR ( Amer) > 60 Est GFR (Non-Af Amer) > 60 Random Glucose 86 Calcium 9.4 Phosphorus Magnesium Total Bilirubin 0.4 AST 27 ALT 29 Alkaline Phosphatase 83 Lactate Dehydrogenase 458 Total Creatine Kinase 61 Troponin I < 0.01 Total Protein 6.2 Albumin 3.8 Globulin 2.4 Albumin/Globulin Ratio 1.6 Digoxin 03/11/18 03/11/18 03/11/18 05:20 05:20 05:20 WBC RBC Hgb Hct MCV MCH MCHC RDW Plt Count MPV PT 23.0 H INR 1.97 APTT Sodium 128 L Potassium 3.8 Chloride 91 L Carbon Dioxide 29 Anion Gap 12 BUN 5 L Creatinine 0.5 L Est GFR ( Amer) > 60 Est GFR (Non-Af Amer) > 60 Random Glucose 84 Calcium 9.3 Phosphorus 3.6 Magnesium 1.5 L Total Bilirubin 0.5 AST 29 ALT 26 Alkaline Phosphatase 86 Lactate Dehydrogenase Total Creatine Kinase Troponin I < 0.01 Total Protein 6.6 Albumin 4.0 Globulin 2.6 Albumin/Globulin Ratio 1.6 Digoxin 1.9 03/11/18 11:30 WBC RBC Hgb Hct MCV MCH MCHC RDW Plt Count MPV PT INR APTT Sodium Potassium Chloride Carbon Dioxide Anion Gap BUN Creatinine Est GFR ( Amer) Est GFR (Non-Af Amer) Random Glucose Calcium Phosphorus Magnesium Total Bilirubin AST ALT Alkaline Phosphatase Lactate Dehydrogenase Total Creatine Kinase Troponin I < 0.01 Total Protein Albumin Globulin Albumin/Globulin Ratio Digoxin Assessment & Plan - Assessment and Plan (Free Text) Plan: Infectious diseases Attending Physician Attestation Patient seen and examined, discussed with medical accounts receivable specialist. I have reviewed the patient's history of present illness, past medical, social, personal and family histories, pertinent physical exam findings, course so far in this hospital admission, pertinent laboratory and imaging results. I agree with the above findings, assessment and plan. In addition, will monitor off antibiotics, patient has no SIRS, no signs of sepsis. Patient with right leg ulcer with eschar - Podiatry to unroof eschar then get tissue cultures underneath, prior to starting antibiotics.
--- NOTE | 2018-03-11 09:05 | RAD ---
Date of service: 03/10/2018 HISTORY: chest pain COMPARISON: Portable chest 02/17/2018. FINDINGS: LUNGS: No active pulmonary disease. PLEURA: No significant pleural effusion identified, no pneumothorax apparent. CARDIOVASCULAR: Calcific atherosclerotic changes are seen related to the thoracic aorta. Normal cardiac size. No pulmonary vascular congestion. OSSEOUS STRUCTURES: No significant abnormalities. VISUALIZED UPPER ABDOMEN: Normal. OTHER FINDINGS: None. IMPRESSION: No interval acute cardiopulmonary disease appreciated.
[2018-03-11] MEDS: Lactobacillus Acidophilus 500 MU Cap PO SCH ×2 (09:18→17:17)
[2018-03-11 13:04] VITALS: O2SAT 99
--- NOTE | 2018-03-11 13:06 | CARD ---
APPROVED REPORT Date of service: 03/10/2018 EKG Measurement Heart [id number] <Conclusion> Atrial fibrillation with slow ventricular response Nonspecific ST and T wave abnormality, probably digitalis effect Abnormal ECG
[2018-03-11 13:44] VITALS: BMI 22.3
[2018-03-11] MEDS ORDERED: Influenza Vaccine 60 mcg/0.5 mL SYR (4YR UP) IM ONE (13:47)
[2018-03-11] MEDS ORDERED: Pneumococcal 23-Valent Vaccine IM ONE (13:47)
[2018-03-11] MEDS ORDERED: Digoxin 250 mcg (0.25 mg) Tab PO SCH (14:00)
[2018-03-11] MEDS ORDERED: Digoxin 0.05 mg/mL Elixir 5mL PO SCH (14:00)
[2018-03-11 14:34] VITALS: PULSE 38
[2018-03-11] MEDS ORDERED: Magnesium Oxide 400 mg Tab UD PO STA (16:03)
[2018-03-11] MEDS ORDERED: DOPamine 400mg/250ml D5W 400 MG/250 ML BAG IV PRN (17:19)
--- NOTE | 2018-03-11 21:38 | CON ---
DATE: 03/11/2018 REASON FOR CONSULTATION: Followup funny sensation of the chest, questionable history of chest pain, and cardiac evaluation. BRIEF CLINICAL HISTORY: A 72-year-old female with past medical history significant for nonobstructive coronary artery disease, status post cardiac catheterization, history of paroxysmal atrial fibrillation, history of COPD, history of nonischemic cardiomyopathy, came to the emergency room with complaint of pain all over the body, nonhealing ulcer on the right mayes of the tibia and very briefly funny sensation in the chest, questionable history of chest pain, so came to the emergency room. Denies any chest pain. Denies any shortness of breath. Denies any palpitations. The patient is in ER, bed 21, lying comfortably. PAST MEDICAL HISTORY: Significant for atrial fibrillation, on Coumadin; asthma; COPD; nonobstructive coronary artery disease; anxiety disorder; hypertension; CHF; and nonischemic cardiomyopathy is improved. PAST SURGICAL HISTORY: Significant for lung resection in 2014, polypectomy, and she had pulmonary nodules resected. PERSONAL HISTORY: Denies any smoking, but smoked still less than 10 cigarettes a day. PREVIOUS CARDIAC WORKUP: As follows; the patient had stress test on 06/12/2016 that showed ischemia with ejection fraction of 37%. Following that, the patient had a cardiac catheterization dated 06/29/2016 that shows nonobstructive coronary artery disease, very distal LAD, and no focal flow limiting stenosis noted. Ejection fraction 35%-40%, EDP was in the range of 20. No gradient across the aortic valve noted on pullback. Echo at that time revealed [id number] aortic stenosis, but no gradient across the aortic valve on cardiac catheterization noted. Medical treatment was recommended including digoxin, diuretics, LADARIUS inhibitors, Coreg, and Coumadin. Follow up MUGA scan was suggested. The patient had repeat echo on 06/02/2015 that showed ejection fraction 35%, [id number] aortic stenosis, and no gradient again on the cath. The patient had repeat echo on 05/30/2017 that showed ejection fraction 55% to 60%, [id number] aortic stenosis noted. The patient had MUGA scan 09/17/2017 that showed ejection fraction 56%. Normal RV. REVIEW OF SYSTEMS: As per HPI. CURRENT MEDICATIONS: The patient is taking Cardizem 120 mg daily, warfarin 3 mg daily, Zoloft, Seroquel, lisinopril, digoxin, and atenolol. PHYSICAL EXAMINATION: VITAL SIGNS: Height of the patient 5 feet 2 inches, weight of the patient 122 pounds, and body mass index 23 kg/m2. Rest of the vitals; temperature afebrile, heart rate 60, and blood pressure 123/64. HEENT: PERRLA. Extraocular muscles intact. NECK: Supple. No carotid bruit or thyromegaly. CHEST: Clear to auscultation. HEART: S1 and S2, regular. ABDOMEN: Soft. EXTREMITIES: Clubbing and cyanosis negative. LABORATORY DATA: Blood workup as follows. WBC 6.8, hemoglobin 11.5, hematocrit 34, and platelet count 302. Chemistry shows sodium 128, potassium 3.8, chloride 91, carbon dioxide 29, anion gap of 12, BUN 5, and creatinine 0.5. Troponin 0.01 x3 negative. EKG shows atrial fibrillation with flow rate, heart rate of 59. IMPRESSION: A 72-year-old female with past medical history significant for atrial fibrillation, on Coumadin and anticoagulation; history of chronic obstructive pulmonary disease, active tobacco abuse; history of cardiac catheterization; nonobstructive coronary artery disease, mitral and tricuspid regurgitation, [id number] aortic stenosis by echocardiogram, but no significant gradient across the aortic valve noted on catheterization, and history of nonhealing ulcer. So far, no evidence of acute mycoardial infarction. RECOMMENDATIONS: Continue anticoagulation. Continue digoxin. Continue atenolol. Continue lisinopril and Cardizem. No evidence of acute VA. Also, consider Podiatry consult for right mayes ulcer. We will get lipid profile, TSH, hemoglobin A1c in the morning, and supplement mag also. We will put mag ox was given. We will repeat level tomorrow mag phosphate, thyroid, lipid profile, and hemoglobin A1c and EKG. Also, get PT/INR. We will follow with you. Thank you Dr. Sparrow for providing us the opportunity in taking care of the patient, Alecia Arciniega. Mak Mendez MD
[2018-03-12] MEDS: Pantoprazole 40 mg EC Tab PO SCH (06:03)
[2018-03-12 06:29] LABS: BASO # 0.02 K/mm3 (0.0-2.0); BASO % 0.3 % (0.0-3.0); EOS # 0.1 (0.0-0.7); EOS % 1.6 % (1.5-5.0); GRAN # 5.34 (1.4-6.5); GRAN % 75.9 % (50.0-68.0); HEMOGLOBIN 11.6 g/dL (12.0-16.0); LYMPH # 1.1 (1.2-3.4); LYMPH % 14.9 % (22.0-35.0); MEAN CELL VOLUME 86.6 fl (80.0-105.0); MEAN CORPUSCULAR HEMOGLOBIN 28.9 pg (25.0-35.0); MEAN CORPUSCULAR HGB CONC 33.3 g/dl (31.0-37.0); MEAN PLATELET VOLUME 8.6 fl (7.0-11.0); MONO # 0.5 (0.1-0.6); MONO % 7.3 % (1.0-6.0); RBC 4.02 10^6/uL (3.5-6.1); RED CELL DISTRIBUTION WIDTH 15.7 % (11.5-14.5)
[2018-03-12 06:31] LABS: INR 1.58; PROTHROMBIN TIME 18.3 SECONDS (9.4-12.5)
[2018-03-12 06:48] LABS: ALB/GLOB RATIO 1.4 (1.1-1.8); ALBUMIN 3.5 g/dL (3.0-4.8); ALT/SGPT 30 U/L (7-56); AST/SGOT 23 U/L (14-36); BLOOD UREA NITROGEN 6 mg/dL (7-21); CALCIUM 9.1 mg/dL (8.4-10.5); GFR NON-AFRICAN AMERICAN > 60; HDL CHOLESTEROL 84 mg/dL (29-60)
[2018-03-12 06:49] LABS: LDL CHOLESTEROL 49 mg/dL (0-129)
--- NOTE | 2018-03-12 07:04 | CP.PCM.PN ---
<Nicolasa Shafer - Last Filed: 03/12/18 12:59> Subjective - Date & Time of Evaluation Date of Evaluation: 03/12/18 Time of Evaluation: 07:03 - Subjective Subjective: ID progress note PGY-[address] Berg No foot pain. denies fever/chill/sweat. Objective - Vital Signs/Intake and Output Vital Signs (last 24 hours): Temp Pulse Resp BP Pulse Ox 98 F 61 18 121/72 99 03/12/18 00:01 03/12/18 02:00 03/12/18 00:01 03/12/18 00:01 03/11/18 12:49 Intake and Output: 03/12/18 03/12/18 06:59 18:59 Intake Total 240 Balance 240 - Medications Medications: Current Medications Acetaminophen (Tylenol 325mg Tab) 650 mg PO Q6H PRN PRN Reason: Fever >100.4 F Last Admin: 03/12/18 01:11 Dose: 650 mg Albuterol/Ipratropium (Duoneb 3 Mg/0.5 Mg (3 Ml) Ud) 3 ml IH [id number] [facility] Last Admin: 03/11/18 19:44 Dose: 3 ml Albuterol/Ipratropium (Duoneb 3 Mg/0.5 Mg (3 Ml) Ud) 3 ml IH Q2H PRN PRN Reason: Shortness of Breath Arformoterol Tartrate (Brovana) 15 mcg IH [id number] [facility] Last Admin: 03/11/18 19:44 Dose: 15 mcg Budesonide (Pulmicort Respules) 0.5 mg IH [id number] [facility] Last Admin: 03/11/18 19:44 Dose: 0.5 mg Digoxin (Lanoxin) 0.25 mg PO 1400 [facility] Last Admin: 03/11/18 14:20 Dose: Not Given Diltiazem HCl (Cardizem) 120 mg PO DAILY [facility] Last Admin: 03/11/18 09:18 Dose: 120 mg Gabapentin (Neurontin) 400 mg PO DAILY [facility]; Protocol Last Admin: 03/11/18 09:18 Dose: 400 mg Dopamine HCl/Dextrose (Dopamine 400mg/250ml D5w) 400 mg in 250 mls @ 5.188 mls/hr IV .Q24H PRN PRN Reason: for heart rate 50 Last Admin: 03/11/18 17:56 Dose: 5.188 mls/hr Lactobacillus Acidophilus (Bacid Acidophilus) 1 cap PO BID [facility] Last Admin: 03/11/18 17:17 Dose: 1 cap Lisinopril (Zestril) 10 mg PO DAILY [facility] Last Admin: 03/11/18 09:17 Dose: 10 mg Metoprolol Tartrate (Lopressor) 50 mg PO BID [facility] Last Admin: 03/11/18 17:17 Dose: Not Given Pantoprazole Sodium (Protonix Ec Tab) 40 mg PO 0600 [facility] Last Admin: 03/12/18 06:03 Dose: 40 mg Sertraline HCl (Zoloft) 200 mg PO DAILY [facility] Last Admin: 03/11/18 09:17 Dose: 200 mg Warfarin Sodium (Coumadin) 3 mg PO 1800 [facility]; Protocol Last Admin: 03/11/18 17:16 Dose: 3 mg - Labs Labs: 03/12/18 05:20 03/12/18 05:20 PT 18.3 SECONDS (9.4-12.5) H 03/12/18 05:20 INR 1.58 03/12/18 05:20 APTT 46.2 Seconds (25.1-36.5) H 03/10/18 23:13 - Constitutional Appears: No Acute Distress - Head Exam Head Exam: ATRAUMATIC, NORMAL INSPECTION, NORMOCEPHALIC - Eye Exam Eye Exam: EOMI, Normal appearance, PERRL. absent: Scleral icterus Pupil Exam: NORMAL ACCOMODATION - ENT Exam ENT Exam: Mucous Membranes Moist - Neck Exam Additional comments: supple - Respiratory Exam Respiratory Exam: Clear to Ausculation Bilateral, NORMAL BREATHING PATTERN. absent: Rales, Rhonchi, Wheezes - Cardiovascular Exam Cardiovascular Exam: REGULAR RHYTHM, +S1, +S2. absent: Murmur - GI/Abdominal Exam GI & Abdominal Exam: Soft, Normal Bowel Sounds. absent: Guarding, Rigid, Tenderness, Rebound - Extremities Exam Extremities Exam: absent: Calf Tenderness, Pedal Edema Additional comments: ulcer RLE, no drainage, dressing intact - Back Exam Back Exam: absent: CVA tenderness (L), CVA tenderness (R) - Neurological Exam Neurological Exam: Alert, Awake, Oriented x3 - Psychiatric Exam Psychiatric exam: Normal Affect, Normal Mood - Skin Skin Exam: Dry, Warm Assessment and Plan - Assessment and Plan (Free Text) Plan: Ms Arciniega, 72F, with PMH of Afib on warfarin, COPD, diastolic CHF, HTN, and Anxiety c/o left sided chest pain at rest. trops negative x 2. EKG has no significant changes. Pt was recently admitted in Dec and Nov for COPD/CHF exacerbation. Pt has a right lower leg ulcer from chronic edema started 2 months ago when her LE was swollen b/l. She uses topical steroid daily. RLE skin ulcer with eschar no SIRS, no signs of sepsis Local infection vs local inflammatory reaction to healing Allergy to azithromycin Cat exposure at home Ischemic cardiomyopathy with HR 30s and dopamine gtt - avoid steroid topical - Per podiatrym hydrocolloid dressing (day 2) - per podiatry, will start bactroban topical today. No plan to debridement - blood culture neg x 1d - observe off antibiotics for now. trend cbc, monitor clinical course s/r/d/w Dr Berg <Kishore Berg S - Last Filed: 03/12/18 16:14> Objective - Vital Signs/Intake and Output Vital Signs (last 24 hours): Temp Pulse Resp BP Pulse Ox 98.6 F 55 L 19 131/71 99 03/12/18 12:00 03/12/18 12:31 03/12/18 12:00 03/12/18 12:11 03/11/18 12:49 Intake and Output: 03/12/18 03/12/18 06:59 18:59 Intake Total 240 Balance 240 - Medications Medications: Current Medications Acetaminophen (Tylenol 325mg Tab) 650 mg PO Q6H PRN PRN Reason: Fever >100.4 F Last Admin: 03/12/18 14:33 Dose: 650 mg Albuterol/Ipratropium (Duoneb 3 Mg/0.5 Mg (3 Ml) Ud) 3 ml IH [id number] [facility] Last Admin: 03/12/18 13:40 Dose: 3 ml Albuterol/Ipratropium (Duoneb 3 Mg/0.5 Mg (3 Ml) Ud) 3 ml IH Q2H PRN PRN Reason: Shortness of Breath Alprazolam (Xanax) 0.25 mg PO TID PRN; Protocol PRN Reason: Anxiety Stop: 03/19/18 14:01 Last Admin: 03/12/18 14:33 Dose: 0.25 mg Arformoterol Tartrate (Brovana) 15 mcg IH [id number] [facility] Last Admin: 03/12/18 07:42 Dose: 15 mcg Budesonide (Pulmicort Respules) 0.5 mg IH [id number] [facility] Last Admin: 03/12/18 07:42 Dose: 0.5 mg Digoxin (Lanoxin) 0.25 mg PO 1400 [facility] Last Admin: 03/11/18 14:20 Dose: Not Given Diltiazem HCl (Cardizem) 120 mg PO DAILY [facility] Last Admin: 03/12/18 10:02 Dose: 120 mg Furosemide (Lasix) 40 mg PO DAILY [facility] Last Admin: 03/12/18 12:11 Dose: 40 mg Gabapentin (Neurontin) 400 mg PO DAILY [facility]; Protocol Last Admin: 03/12/18 10:02 Dose: 400 mg Lactobacillus Acidophilus (Bacid Acidophilus) 1 cap PO BID [facility] Last Admin: 03/12/18 10:02 Dose: 1 cap Lisinopril (Zestril) 10 mg PO DAILY [facility] Last Admin: 03/12/18 09:56 Dose: Not Given Metoprolol Tartrate (Lopressor) 25 mg PO BID [facility] Last Admin: 03/12/18 12:31 Dose: Not Given Mupirocin (Bactroban Ointment) 0 gm TOP BID [facility] Pantoprazole Sodium (Protonix Ec Tab) 40 mg PO 0600 [facility] Last Admin: 03/12/18 06:03 Dose: 40 mg Sertraline HCl (Zoloft) 200 mg PO DAILY [facility] Last Admin: 03/12/18 10:03 Dose: 200 mg Warfarin Sodium (Coumadin) 4 mg PO 1800 [facility]; Protocol - Labs Labs: 03/12/18 05:20 03/12/18 05:20 PT 18.3 SECONDS (9.4-12.5) H 03/12/18 05:20 INR 1.58 03/12/18 05:20 APTT 46.2 Seconds (25.1-36.5) H 03/10/18 23:13 Assessment and Plan - Assessment and Plan (Free Text) Plan: Infectious diseases Attending Physician Attestation Patient seen and examined, discussed with medical records analyst. I have reviewed the patient's history of present illness, past medical, social, personal and family histories, pertinent physical exam findings, course so far in this hospital admission, pertinent laboratory and imaging results. I agree with the above findings, assessment and plan. In addition, awaiting plan for debridement of ulcer prior to starting antibiotics. Patient has no SIRS, no fevers.
[2018-03-12] MEDS: Arformoterol 15 mcg/2 ml Inh Sol IH SCH ×2 (07:42→20:14)
[2018-03-12] MEDS: Budesonide 0.5 mg/2 ml Inhal Susp UD IH SCH ×2 (07:42→20:15)
[2018-03-12] MEDS: Albuterol-Ipratrop 3 mg / 0.5 (3 ml) UD IH SCH ×3 (07:42→20:14)
[2018-03-12] MEDS: Lactobacillus Acidophilus 500 MU Cap PO SCH ×2 (10:02→19:21)
--- NOTE | 2018-03-12 12:58 | CP.PCM.PCO ---
Physician Communication Note - Physician Communication Note Physician Communication Note: medications are being adjusted, will continue to monitor
--- NOTE | 2018-03-12 13:06 | CP.PCM.CON ---
<TonyaEusebia - Last Filed: 03/12/18 13:28> History of Present Illness - History of Present Illness History of Present Illness: Podiatry Consult Note: Dr. Templeton 72F patient, with PMHx of Afib, COPD, HTN, CHF, seen and evaluated for R anterior leg ulceration. Patient states that she developed the ulceration a few months ago and attributes it to her lower extremity being swollen during that time. She notes that she was admitted a little over a month ago for COPD exacerbation. She states that she puts a steroid cream on her ulceration daily however it is not resolving. Patient denies N/V/F/CP. PMHx: Afib, COPD, HTN, CHF PSHx: Lipoma removal Social: Current tobacco use ALL: Azithromycin Review of Systems - Review of Systems Review of Systems: As per HPI Past Patient History - Infectious Disease Hx of Infectious Diseases: None - Past Medical History & Family History Past Medical History?: Yes - Past Social History Smoking Status: Light Smoker < 10 Cigarettes Daily - CARDIAC Hx Cardiac Disorders: Yes (A fib, cardiac cath x 1 with cardiac stent.) Hx Congestive Heart Failure: Yes (diastolic) Hx Hypertension: Yes - PULMONARY Hx Chronic Obstructive Pulmonary Disease (COPD): Yes - NEUROLOGICAL Hx Neurological Disorder: Yes (headaches) Hx Dizziness: Yes - HEENT Hx HEENT Problems: No - RENAL Hx Chronic Kidney Disease: No - ENDOCRINE/METABOLIC Hx Endocrine Disorders: No - HEMATOLOGICAL/ONCOLOGICAL Hx Blood Disorders: No - INTEGUMENTARY Hx Dermatological Problems: No - MUSCULOSKELETAL/RHEUMATOLOGICAL Hx Falls: Yes - GASTROINTESTINAL Hx Gastrointestinal Disorders: Yes (reflux) - GENITOURINARY/GYNECOLOGICAL Hx Genitourinary Disorders: No - PSYCHIATRIC Hx Psychophysiologic Disorder: Yes Hx Anxiety: Yes Hx Depression: Yes Hx Substance Use: No - SURGICAL HISTORY Hx Cardiac Catheterization: Yes (X1) Hx Coronary Stent: Yes (unknown) Other/Comment: robotic left lower wedge resection and lymphaderectomy 06/2015, polypectomy, left lung nodule removed 2 yrs ago at [facility] benign - ANESTHESIA Hx Anesthesia: Yes Hx Anesthesia Reactions: No Hx Malignant Hyperthermia: No Meds Allergies/Adverse Reactions: Allergies Allergy/AdvReac Type Severity Reaction Status Date / Time azithromycin [From Zithromax] AdvReac Intermediate RASH Verified 01/24/18 19:19 - Medications Medications: Current Medications Acetaminophen (Tylenol 325mg Tab) 650 mg PO Q6H PRN PRN Reason: Fever >100.4 F Last Admin: 03/12/18 01:11 Dose: 650 mg Albuterol/Ipratropium (Duoneb 3 Mg/0.5 Mg (3 Ml) Ud) 3 ml IH [id number] [facility] Last Admin: 03/12/18 07:42 Dose: 3 ml Albuterol/Ipratropium (Duoneb 3 Mg/0.5 Mg (3 Ml) Ud) 3 ml IH Q2H PRN PRN Reason: Shortness of Breath Alprazolam (Xanax) 0.25 mg PO TID PRN; Protocol PRN Reason: Anxiety Stop: 03/19/18 14:01 Arformoterol Tartrate (Brovana) 15 mcg IH [id number] [facility] Last Admin: 03/12/18 07:42 Dose: 15 mcg Budesonide (Pulmicort Respules) 0.5 mg IH [id number] [facility] Last Admin: 03/12/18 07:42 Dose: 0.5 mg Digoxin (Lanoxin) 0.25 mg PO 1400 [facility] Last Admin: 03/11/18 14:20 Dose: Not Given Diltiazem HCl (Cardizem) 120 mg PO DAILY [facility] Last Admin: 03/12/18 10:02 Dose: 120 mg Furosemide (Lasix) 40 mg PO DAILY [facility] Last Admin: 03/12/18 12:11 Dose: 40 mg Gabapentin (Neurontin) 400 mg PO DAILY [facility]; Protocol Last Admin: 03/12/18 10:02 Dose: 400 mg Lactobacillus Acidophilus (Bacid Acidophilus) 1 cap PO BID [facility] Last Admin: 03/12/18 10:02 Dose: 1 cap Lisinopril (Zestril) 10 mg PO DAILY [facility] Last Admin: 03/12/18 09:56 Dose: Not Given Metoprolol Tartrate (Lopressor) 25 mg PO BID [facility] Last Admin: 03/12/18 12:31 Dose: Not Given Pantoprazole Sodium (Protonix Ec Tab) 40 mg PO 0600 [facility] Last Admin: 03/12/18 06:03 Dose: 40 mg Sertraline HCl (Zoloft) 200 mg PO DAILY [facility] Last Admin: 03/12/18 10:03 Dose: 200 mg Warfarin Sodium (Coumadin) 4 mg PO 1800 [facility]; Protocol Physical Exam - Constitutional Appears: Non-toxic, No Acute Distress - Head Exam Head Exam: ATRAUMATIC, NORMOCEPHALIC - Extremities Exam Additional comments: RLE focused exam: Vascular: DP/PT faintly palpable, CFT < 3 seconds to all digits, TG warm to warm, mild edema appreciated ventura-ulceration Ortho: Pain upon palpation of R anterior leg ulceration, MMT 5/5 in all compartments Neuro: Gross and protective sensation intact Derm: Ulceration noted to anterior aspect of leg, measuring approximately 2x1.5x.2, with mixed fibrous/necrotic base, mild serous drainage appreciated, no purulence, mild erythema ventura-wound, no tunneling, no tracking, no undermining appreciated - Neurological Exam Neurological exam: Alert, Oriented x3 - Psychiatric Exam Psychiatric exam: Normal Affect, Normal Mood Results - Vital Signs Recent Vital Signs: Last Vital Signs Temp 98.6 F 03/12/18 12:00 Pulse 55 L 03/12/18 12:31 Resp 19 03/12/18 12:00 BP 131/71 03/12/18 12:11 Pulse Ox 99 03/11/18 12:49 - Labs Result Diagrams: 03/12/18 05:20 03/12/18 05:20 Labs: Laboratory Results - last 24 hr 03/11/18 03/12/18 03/12/18 21:10 05:20 05:20 WBC 7.0 RBC 4.02 Hgb 11.6 L Hct 34.8 L MCV 86.6 MCH 28.9 MCHC 33.3 RDW 15.7 H Plt Count 302 MPV 8.6 Gran % 75.9 H Lymph % (Auto) 14.9 L [place] % (Auto) 7.3 H Eos % (Auto) 1.6 Baso % (Auto) 0.3 Gran # 5.34 Lymph # (Auto) 1.1 L [place] # (Auto) 0.5 Eos # (Auto) 0.1 Baso # (Auto) 0.02 PT INR Sodium 132 Potassium 4.5 Chloride 96 L Carbon Dioxide 32 Anion Gap 8 L BUN 6 L Creatinine 0.5 L Est GFR ( Amer) > 60 Est GFR (Non-Af Amer) > 60 Random Glucose 91 Hemoglobin A1c Calcium 9.1 Phosphorus 4.0 Magnesium 1.9 Total Bilirubin 0.5 AST 23 ALT 30 Alkaline Phosphatase 77 Total Protein 6.1 Albumin 3.5 Globulin 2.5 Albumin/Globulin Ratio 1.4 Triglycerides 47 Cholesterol 141 LDL Cholesterol Direct 49 HDL Cholesterol 84 H TSH 3rd Generation Digoxin 1.9 03/12/18 03/12/18 03/12/18 05:20 05:20 05:20 WBC RBC Hgb Hct MCV MCH MCHC RDW Plt Count MPV Gran % Lymph % (Auto) [place] % (Auto) Eos % (Auto) Baso % (Auto) Gran # Lymph # (Auto) [place] # (Auto) Eos # (Auto) Baso # (Auto) PT 18.3 H INR 1.58 Sodium Potassium Chloride Carbon Dioxide Anion Gap BUN Creatinine Est GFR ( Amer) Est GFR (Non-Af Amer) Random Glucose Hemoglobin A1c 5.5 Calcium Phosphorus Magnesium Total Bilirubin AST ALT Alkaline Phosphatase Total Protein Albumin Globulin Albumin/Globulin Ratio Triglycerides Cholesterol LDL Cholesterol Direct HDL Cholesterol TSH 3rd Generation 0.47 Digoxin Assessment & Plan - Assessment and Plan (Free Text) Assessment: 72F patient, with PMHx of Afib, COPD, HTN, CHF, seen and evaluated for R anterior leg ulceration. Plan: Patient seen and evaluated with all questions and concerns addressed Afebrile, WBC 7.0 R leg wound culture taken, pending Blood culture taken; no growth after 24 hrs ID consulted; reccs appreciated Local wound care to R ulceration: Xeroform, DSD Bactroban ordered, to be applied to R leg ulceration with daily dressing changes Non-invasive vascular studies ordered; pending Thank you for the consult - Date & Time Date: 03/12/18 Time: 13:05 <Isaak Templeton - Last Filed: 03/12/18 15:11> Meds - Medications Medications: Current Medications Acetaminophen (Tylenol 325mg Tab) 650 mg PO Q6H PRN PRN Reason: Fever >100.4 F Last Admin: 03/12/18 14:33 Dose: 650 mg Albuterol/Ipratropium (Duoneb 3 Mg/0.5 Mg (3 Ml) Ud) 3 ml IH [id number] [facility] Last Admin: 03/12/18 13:40 Dose: 3 ml Albuterol/Ipratropium (Duoneb 3 Mg/0.5 Mg (3 Ml) Ud) 3 ml IH Q2H PRN PRN Reason: Shortness of Breath Alprazolam (Xanax) 0.25 mg PO TID PRN; Protocol PRN Reason: Anxiety Stop: 03/19/18 14:01 Last Admin: 03/12/18 14:33 Dose: 0.25 mg Arformoterol Tartrate (Brovana) 15 mcg IH [id number] [facility] Last Admin: 03/12/18 07:42 Dose: 15 mcg Budesonide (Pulmicort Respules) 0.5 mg IH [id number] [facility] Last Admin: 03/12/18 07:42 Dose: 0.5 mg Digoxin (Lanoxin) 0.25 mg PO 1400 [facility] Last Admin: 03/11/18 14:20 Dose: Not Given Diltiazem HCl (Cardizem) 120 mg PO DAILY [facility] Last Admin: 03/12/18 10:02 Dose: 120 mg Furosemide (Lasix) 40 mg PO DAILY [facility] Last Admin: 03/12/18 12:11 Dose: 40 mg Gabapentin (Neurontin) 400 mg PO DAILY [facility]; Protocol Last Admin: 03/12/18 10:02 Dose: 400 mg Lactobacillus Acidophilus (Bacid Acidophilus) 1 cap PO BID [facility] Last Admin: 03/12/18 10:02 Dose: 1 cap Lisinopril (Zestril) 10 mg PO DAILY [facility] Last Admin: 03/12/18 09:56 Dose: Not Given Metoprolol Tartrate (Lopressor) 25 mg PO BID [facility] Last Admin: 03/12/18 12:31 Dose: Not Given Mupirocin (Bactroban Ointment) 0 gm TOP BID [facility] Pantoprazole Sodium (Protonix Ec Tab) 40 mg PO 0600 [facility] Last Admin: 03/12/18 06:03 Dose: 40 mg Sertraline HCl (Zoloft) 200 mg PO DAILY [facility] Last Admin: 03/12/18 10:03 Dose: 200 mg Warfarin Sodium (Coumadin) 4 mg PO 1800 [facility]; Protocol Results - Vital Signs Recent Vital Signs: Last Vital Signs Temp 98.6 F 03/12/18 12:00 Pulse 55 L 03/12/18 12:31 Resp 19 03/12/18 12:00 BP 131/71 03/12/18 12:11 Pulse Ox 99 03/11/18 12:49 - Labs Result Diagrams: 03/12/18 05:20 03/12/18 05:20 Labs: Laboratory Results - last 24 hr 03/11/18 03/12/1818 21:10 05:20 05:20 WBC 7.0 RBC 4.02 Hgb 11.6 L Hct 34.8 L MCV 86.6 MCH 28.9 MCHC 33.3 RDW 15.7 H Plt Count 302 MPV 8.6 Gran % 75.9 H Lymph % (Auto) 14.9 L [place] % (Auto) 7.3 H Eos % (Auto) 1.6 Baso % (Auto) 0.3 Gran # 5.34 Lymph # (Auto) 1.1 L [place] # (Auto) 0.5 Eos # (Auto) 0.1 Baso # (Auto) 0.02 PT INR Sodium 132 Potassium 4.5 Chloride 96 L Carbon Dioxide 32 Anion Gap 8 L BUN 6 L Creatinine 0.5 L Est GFR ( Amer) > 60 Est GFR (Non-Af Amer) > 60 Random Glucose 91 Hemoglobin A1c Calcium 9.1 Phosphorus 4.0 Magnesium 1.9 Total Bilirubin 0.5 AST 23 ALT 30 Alkaline Phosphatase 77 Total Protein 6.1 Albumin 3.5 Globulin 2.5 Albumin/Globulin Ratio 1.4 Triglycerides 47 Cholesterol 141 LDL Cholesterol Direct 49 HDL Cholesterol 84 H TSH 3rd Generation Digoxin 1.9 03/12/18 03/12/18 03/12/18 05:20 05:20 05:20 WBC RBC Hgb Hct MCV MCH MCHC RDW Plt Count MPV Gran % Lymph % (Auto) [place] % (Auto) Eos % (Auto) Baso % (Auto) Gran # Lymph # (Auto) [place] # (Auto) Eos # (Auto) Baso # (Auto) PT 18.3 H INR 1.58 Sodium Potassium Chloride Carbon Dioxide Anion Gap BUN Creatinine Est GFR ( Amer) Est GFR (Non-Af Amer) Random Glucose Hemoglobin A1c 5.5 Calcium Phosphorus Magnesium Total Bilirubin AST ALT Alkaline Phosphatase Total Protein Albumin Globulin Albumin/Globulin Ratio Triglycerides Cholesterol LDL Cholesterol Direct HDL Cholesterol TSH 3rd Generation 0.47 Digoxin Attending/Attestation - Attestation I have personally seen and examined this patient.: Yes I have fully participated in the care of the patient.: Yes I have reviewed all pertinent clinical information: Yes
--- NOTE | 2018-03-12 14:19 | CP.PCM.PN ---
Subjective - Date & Time of Evaluation Date of Evaluation: 03/12/18 Time of Evaluation: 11:00 - Subjective Subjective: Kyra Boswell, PGY1 Hospital Progress Note Patient seen and examined at bedside this morning. Patient was bradycardic previous evening, started on dopamine drip with improvement. Patient offers no complaints or pain today and denies CP, SOB, fevers, numbness, tingling and urinary complaints. No debridement planned from podiatry, will monitor off antibiotics for now. Objective - Vital Signs/Intake and Output Vital Signs (last 24 hours): Temp Pulse Resp BP Pulse Ox 98.6 F 55 L 19 131/71 99 03/12/18 12:00 03/12/18 12:31 03/12/18 12:00 03/12/18 12:11 03/11/18 12:49 Intake and Output: 03/12/18 03/12/18 06:59 18:59 Intake Total 240 Balance 240 - Medications Medications: Current Medications Acetaminophen (Tylenol 325mg Tab) 650 mg PO Q6H PRN PRN Reason: Fever >100.4 F Last Admin: 03/12/18 01:11 Dose: 650 mg Albuterol/Ipratropium (Duoneb 3 Mg/0.5 Mg (3 Ml) Ud) 3 ml IH [id number] [facility] Last Admin: 03/12/18 13:40 Dose: 3 ml Albuterol/Ipratropium (Duoneb 3 Mg/0.5 Mg (3 Ml) Ud) 3 ml IH Q2H PRN PRN Reason: Shortness of Breath Alprazolam (Xanax) 0.25 mg PO TID PRN; Protocol PRN Reason: Anxiety Stop: 03/19/18 14:01 Arformoterol Tartrate (Brovana) 15 mcg IH [id number] [facility] Last Admin: 03/12/18 07:42 Dose: 15 mcg Budesonide (Pulmicort Respules) 0.5 mg IH [id number] [facility] Last Admin: 03/12/18 07:42 Dose: 0.5 mg Digoxin (Lanoxin) 0.25 mg PO 1400 [facility] Last Admin: 03/11/18 14:20 Dose: Not Given Diltiazem HCl (Cardizem) 120 mg PO DAILY [facility] Last Admin: 03/12/18 10:02 Dose: 120 mg Furosemide (Lasix) 40 mg PO DAILY [facility] Last Admin: 03/12/18 12:11 Dose: 40 mg Gabapentin (Neurontin) 400 mg PO DAILY [facility]; Protocol Last Admin: 03/12/18 10:02 Dose: 400 mg Lactobacillus Acidophilus (Bacid Acidophilus) 1 cap PO BID [facility] Last Admin: 03/12/18 10:02 Dose: 1 cap Lisinopril (Zestril) 10 mg PO DAILY [facility] Last Admin: 03/12/18 09:56 Dose: Not Given Metoprolol Tartrate (Lopressor) 25 mg PO BID [facility] Last Admin: 03/12/18 12:31 Dose: Not Given Mupirocin (Bactroban Ointment) 0 gm TOP BID [facility] Pantoprazole Sodium (Protonix Ec Tab) 40 mg PO 0600 [facility] Last Admin: 03/12/18 06:03 Dose: 40 mg Sertraline HCl (Zoloft) 200 mg PO DAILY [facility] Last Admin: 03/12/18 10:03 Dose: 200 mg Warfarin Sodium (Coumadin) 4 mg PO 1800 [facility]; Protocol - Labs Labs: 03/12/18 05:20 03/12/18 05:20 PT 18.3 SECONDS (9.4-12.5) H 03/12/18 05:20 INR 1.58 03/12/18 05:20 APTT 46.2 Seconds (25.1-36.5) H 03/10/18 23:13 - Additional Findings Additional findings: - Constitutional Appears: Well, No Acute Distress - Head Exam Head Exam: ATRAUMATIC, NORMAL INSPECTION, NORMOCEPHALIC - Eye Exam Eye Exam: EOMI, Normal appearance, PERRL Pupil Exam: NORMAL ACCOMODATION, PERRL - Respiratory Exam Respiratory Exam: present: CTA B/L absent: Accessory Muscle Use, Rales, respiratory disress - Cardiovascular Exam Cardiovascular Exam: Irregular Rhythm, +S1, +S2. absent: Gallop, JVD, Rubs - GI/Abdominal Exam GI & Abdominal Exam: Normal Bowel Sounds, Soft. absent: Tenderness - Extremities Exam Extremities exam: Positive for: full ROM, normal capillary refill Additional comments: right LE edema + 1 - Back Exam Back exam: NORMAL INSPECTION. absent: CVA tenderness (L), CVA tenderness (R) - Neurological Exam Neurological exam: Alert, CN II-XII Intact, Normal Gait, Oriented x3, Reflexes Normal - Psychiatric Exam Psychiatric exam: Normal Affect, Normal Mood - Skin Additional comments: right lower leg ulcer measuring approx 2x3 cm, necrotic base with no overt bleeding or discharge or pus noted. Assessment and Plan - Assessment and Plan (Free Text) Assessment: 72 year old female with PMH of A fib, COPD, CHF, and anxiety presents for chest pain and found to have right lower leg ulcer, hyponatremia and hypokalemia. Plan: Bradycardia -bradycardic in the 30s on 03/11/18 -initially on dopamine drip, stopped today with resultant HR in the 50-60s. BP is stable -digoxin on hold, lopressor 25 BID -possible dig toxicity with level of 1.9. Target of 0.8 to 1.2 RLE ulcer -per podiatry, no debridement -right leg wound culture taken, blood culture negative 24 hours -bactroban and daily wound dressings -per ID, will observe off of antibiotics for now -afebrile, no WBC Atrial Fibrillation: -INR today is 1.58 from 1.97 yesterday -Warfarin increased to 4mg today -rate controlled, on diltiazem and lopressor 25mb BID Chest pain: -trops x 3 are negative -cardiology on consult -unlikely NE Diastolic CHF -Echo on 01/2018 showed EF 54% -continue lisinopril, lopressor -started lasix 03/12 Hyponatremia -resolved, monitor -resumed lasix Hypokalemia -resolved, monitor Hx COPD: -CXR: no acute finding -continue home meds Arformoterol, budesonide -supp O2 prn -duoneb q4 wil, prn Anxiety -continue home zoloft, ativan PPX/Diet -protonic, SCD -HHD Patient seen and case discussed with attending, Dr. Sparrow
--- NOTE | 2018-03-12 16:42 | PN ---
DATE: 03/12/2018 SEX OF THE PATIENT: Female. AGE OF THE PATIENT: 72. REASON FOR CONSULTATION: Follow up atypical chest pain, bradycardia, elevated digoxin level, history of atrial fibrillation. SUBJECTIVE: The patient feels better. No history of any shortness of breath or any palpitation. OBJECTIVE: GENERAL: Not in apparent distress. VITAL SIGNS: Temperature afebrile, heart rate 74, blood pressure 113/54. HEENT: PERRLA. Extraocular muscles intact. NECK: Supple. No carotid bruit. No thyromegaly. CHEST: Clear to auscultation. HEART: S1 and S2 regular. ABDOMEN: Soft. EXTREMITIES: Clubbing and cyanosis negative. LABORATORY DATA: Blood workup as follows: WBC 7, hemoglobin 11.7, hematocrit 34.8, and platelet count 302. Chemistry shows sodium 132, potassium 4.5, chloride 97, carbon dioxide 32, anion gap of 8, BUN 6, and creatinine 0.5. TSH 0.47. Troponin remains 0.01 negative. IMPRESSION: A 72-year-old female with a past medical history significant for nonischemic cardiomyopathy, nonobstructive coronary artery disease, atrial fibrillation, admitted with atypical chest pain, generalized weakness. During the course of hospitalization, found to be in A-Fib with slow ventricular rate. A stat digoxin leve was sent around 5 o'clock and found to be 1.9. The patient was started on low dose of dopamine. The patient was on Cardizem 120 mg daily as well as digoxin as well as metoprolol 50 mg. Digoxin level came back 1.7, so low dose of dopamine was started and metoprolol was started and heart rate back to 78 this morning and dopamine was discontinued and digoxin is still on hold. We will repeat the digoxin level tomorrow and metoprolol decreased to 25 mg daily. The patient is stable with no evidence of acute myocardial infraction. RECOMMENDATION: Possible discharge home tomorrow, adjust the medication. We will repeat the digoxin level tomorrow. Thank you, Dr. Sparrow, for providing us the opportunity in taking care of patient Alecia Arciniega. Mak Mendez MD Psychiatric # [id number]
[2018-03-12] MEDS: Mupirocin 2% Ointment 15 GM TUBE TOP SCH (19:21)
[2018-03-13 02:14] VITALS: RESP 19
[2018-03-13] MEDS: Albuterol-Ipratrop 3 mg / 0.5 (3 ml) UD IH SCH ×4 (02:27→19:57)
[2018-03-13] MEDS: Pantoprazole 40 mg EC Tab PO SCH (06:39)
--- NOTE | 2018-03-13 06:40 | CP.PCM.PN ---
<Nicolasa Shafer - Last Filed: 03/13/18 12:41> Subjective - Date & Time of Evaluation Date of Evaluation: 03/13/18 Time of Evaluation: 06:35 - Subjective Subjective: ID progress note PGy-[address] Berg Dopamine gtt stopped yesterday. No more bradycardia. Denies f/c, cp, sob, dysuria, leg pain Objective - Vital Signs/Intake and Output Vital Signs (last 24 hours): Temp Pulse Resp BP Pulse Ox 98.8 F 61 19 118/72 99 03/13/18 00:01 03/13/18 02:00 03/13/18 00:01 03/13/18 00:01 03/11/18 12:49 Intake and Output: 03/12/18 03/13/18 18:59 06:59 Intake Total 1380 240 Balance 1380 240 - Medications Medications: Current Medications Acetaminophen (Tylenol 325mg Tab) 650 mg PO Q6H PRN PRN Reason: Fever >100.4 F Last Admin: 03/12/18 14:33 Dose: 650 mg Albuterol/Ipratropium (Duoneb 3 Mg/0.5 Mg (3 Ml) Ud) 3 ml IH [id number] [facility] Last Admin: 03/13/18 02:27 Dose: 3 ml Albuterol/Ipratropium (Duoneb 3 Mg/0.5 Mg (3 Ml) Ud) 3 ml IH Q2H PRN PRN Reason: Shortness of Breath Alprazolam (Xanax) 0.25 mg PO TID PRN; Protocol PRN Reason: Anxiety Stop: 03/19/18 14:01 Last Admin: 03/12/18 22:30 Dose: 0.25 mg Arformoterol Tartrate (Brovana) 15 mcg IH [id number] [facility] Last Admin: 03/12/18 20:14 Dose: 15 mcg Budesonide (Pulmicort Respules) 0.5 mg IH [id number] [facility] Last Admin: 03/12/18 20:15 Dose: 0.5 mg Digoxin (Lanoxin) 0.25 mg PO 1400 [facility] Last Admin: 03/11/18 14:20 Dose: Not Given Diltiazem HCl (Cardizem) 120 mg PO DAILY [facility] Last Admin: 03/12/18 10:02 Dose: 120 mg Furosemide (Lasix) 40 mg PO DAILY [facility] Last Admin: 03/12/18 12:11 Dose: 40 mg Gabapentin (Neurontin) 400 mg PO DAILY [facility]; Protocol Last Admin: 03/12/18 10:02 Dose: 400 mg Lactobacillus Acidophilus (Bacid Acidophilus) 1 cap PO BID [facility] Last Admin: 03/12/18 19:21 Dose: 1 cap Lisinopril (Zestril) 10 mg PO DAILY [facility] Last Admin: 03/12/18 09:56 Dose: Not Given Metoprolol Tartrate (Lopressor) 25 mg PO BID [facility] Last Admin: 03/12/18 18:50 Dose: Not Given Mupirocin (Bactroban Ointment) 0 gm TOP BID [facility] Last Admin: 03/12/18 19:21 Dose: Not Given Pantoprazole Sodium (Protonix Ec Tab) 40 mg PO 0600 [facility] Last Admin: 03/12/18 06:03 Dose: 40 mg Sertraline HCl (Zoloft) 200 mg PO DAILY [facility] Last Admin: 03/12/18 10:03 Dose: 200 mg Warfarin Sodium (Coumadin) 4 mg PO 1800 [facility]; Protocol Last Admin: 03/12/18 19:21 Dose: 4 mg - Labs Labs: 03/12/18 05:20 03/12/18 05:20 PT 18.3 SECONDS (9.4-12.5) H 03/12/18 05:20 INR 1.58 03/12/18 05:20 APTT 46.2 Seconds (25.1-36.5) H 03/10/18 23:13 - Constitutional Appears: No Acute Distress - Head Exam Head Exam: ATRAUMATIC, NORMAL INSPECTION, NORMOCEPHALIC - Eye Exam Eye Exam: EOMI, Normal appearance, PERRL. absent: Scleral icterus - ENT Exam ENT Exam: Mucous Membranes Moist - Neck Exam Additional comments: supple - Respiratory Exam Respiratory Exam: Clear to Ausculation Bilateral, NORMAL BREATHING PATTERN. absent: Rales, Rhonchi, Wheezes - Cardiovascular Exam Cardiovascular Exam: REGULAR RHYTHM, +S1, +S2. absent: Murmur - GI/Abdominal Exam GI & Abdominal Exam: Soft, Normal Bowel Sounds. absent: Guarding, Rigid, Tenderness, Organomegaly, Rebound - Extremities Exam Extremities Exam: absent: Calf Tenderness, Pedal Edema Additional comments: slight tenderness R LE aound the ulcer. no drainage. dressing d/c/i - Back Exam Back Exam: absent: CVA tenderness (L), CVA tenderness (R) - Neurological Exam Neurological Exam: Alert, Awake, Normal Gait, Oriented x3 - Psychiatric Exam Psychiatric exam: Normal Affect, Normal Mood - Skin Skin Exam: Dry, Warm Assessment and Plan - Assessment and Plan (Free Text) Plan: Ms Arciniega, 72F, with PMH of Afib on warfarin, COPD, CAD with ischemic cardiomyopathy, diastolic CHF, HTN, and Anxiety c/o left sided chest pain at rest. trops negative x 2. EKG has no significant changes. Pt was recently admitted in Dec and Jan for COPD/CHF exacerbation. Pt has a right lower leg ulcer from chronic edema started 2 months ago when her LE was swollen b/l. She uses topical steroid daily. Local infection at RLE skin ulcer with eschar likely due to poor circulation from chronic LEs edema no SIRS, no signs of sepsis, no fever Allergy to azithromycin Cat exposure at home Ischemic cardiomyopathy s/p dopamine gtt. Bradycardia resolved - avoid steroid topical - Podiatry procured R leg wound culture yesterday. Follow up. - Agreed with bactroban topical per podiatry. No plan to debridement - Local wound care with xeroform and dry sterile dressing - observe off PO antibiotics for now pending wound culture, no sign of systemic infection - trend cbc, monitor clinical course - blood culture neg x 2d - Pt should follow up with wound center outpatient for wound culture, arterial doppler result, and continual wound care s/r/d/w Dr. Berg <Kishore Berg S - Last Filed: 03/13/18 16:35> Objective - Vital Signs/Intake and Output Vital Signs (last 24 hours): Temp Pulse Resp BP Pulse Ox 98 F 62 19 141/74 99 03/13/18 12:00 03/13/18 12:00 03/13/18 12:00 03/13/18 12:00 03/11/18 12:49 Intake and Output: 03/13/18 03/13/18 06:59 18:59 Intake Total 240 Balance 240 - Medications Medications: Current Medications Acetaminophen (Tylenol 325mg Tab) 650 mg PO Q6H PRN PRN Reason: Fever >100.4 F Last Admin: 03/12/18 14:33 Dose: 650 mg Acetaminophen (Tylenol 325mg Tab) 650 mg PO Q6H PRN PRN Reason: Pain, moderate (4-7) Albuterol/Ipratropium (Duoneb 3 Mg/0.5 Mg (3 Ml) Ud) 3 ml IH [id number] [facility] Last Admin: 03/13/18 13:13 Dose: 3 ml Albuterol/Ipratropium (Duoneb 3 Mg/0.5 Mg (3 Ml) Ud) 3 ml IH Q2H PRN PRN Reason: Shortness of Breath Alprazolam (Xanax) 0.25 mg PO TID PRN; Protocol PRN Reason: Anxiety Stop: 03/19/18 14:01 Last Admin: 03/13/18 14:02 Dose: 0.25 mg Amoxicillin/Clavulanate Potassium (Augmentin 875 Mg-125 Mg Tab) 1 tab PO Q12 [facility]; Protocol Last Admin: 03/13/18 14:02 Dose: 1 tab Arformoterol Tartrate (Brovana) 15 mcg IH [id number] [facility] Last Admin: 03/13/18 07:42 Dose: 15 mcg Budesonide (Pulmicort Respules) 0.5 mg IH [id number] [facility] Last Admin: 03/13/18 07:42 Dose: 0.5 mg Digoxin (Lanoxin) 0.25 mg PO 1400 [facility] Last Admin: 03/11/18 14:20 Dose: Not Given Digoxin (Digoxin) 0.125 mg PO 1400 [facility] Diltiazem HCl (Cardizem) 120 mg PO DAILY [facility] Last Admin: 03/13/18 10:57 Dose: 120 mg Doxycycline Hyclate (Doryx) 100 mg PO Q12 [facility]; Protocol Last Admin: 03/13/18 14:03 Dose: 100 mg Furosemide (Lasix) 40 mg PO DAILY [facility] Last Admin: 03/13/18 10:56 Dose: 40 mg Gabapentin (Neurontin) 400 mg PO DAILY [facility]; Protocol Last Admin: 03/13/18 10:57 Dose: 400 mg Lactobacillus Acidophilus (Bacid Acidophilus) 1 cap PO BID [facility] Last Admin: 03/13/18 10:56 Dose: 1 cap Lisinopril (Zestril) 10 mg PO DAILY [facility] Last Admin: 03/13/18 10:58 Dose: 10 mg Metoprolol Tartrate (Lopressor) 25 mg PO BID [facility] Last Admin: 03/13/18 10:57 Dose: 25 mg Mupirocin (Bactroban Ointment) 0 gm TOP BID [facility] Last Admin: 03/13/18 10:58 Dose: Not Given Pantoprazole Sodium (Protonix Ec Tab) 40 mg PO 0600 [facility] Last Admin: 03/13/18 06:39 Dose: 40 mg Sertraline HCl (Zoloft) 200 mg PO DAILY [facility] Last Admin: 03/13/18 10:57 Dose: 200 mg Warfarin Sodium (Coumadin) 4 mg PO 1800 [facility]; Protocol Last Admin: 03/12/18 19:21 Dose: 4 mg - Labs Labs: 03/13/18 06:30 03/13/18 06:30 PT 18.7 SECONDS (9.4-12.5) H 03/13/18 08:40 INR 1.61 03/13/18 08:40 APTT 46.2 Seconds (25.1-36.5) H 03/10/18 23:13 Assessment and Plan - Assessment and Plan (Free Text) Plan: Infectious diseases Attending Physician Attestation Patient seen and examined, discussed with medical equipment technician. I have reviewed the patient's history of present illness, past medical, social, personal and family histories, pertinent physical exam findings, course so far in this hospital admission, pertinent laboratory and imaging results. I agree with the above findings, assessment and plan.
[2018-03-13 06:58] LABS: BASO # 0.02 K/mm3 (0.0-2.0); BASO % 0.3 % (0.0-3.0); EOS # 0.1 (0.0-0.7); EOS % 1.6 % (1.5-5.0); GRAN # 4.74 (1.4-6.5); GRAN % 70.5 % (50.0-68.0); HEMOGLOBIN 10.5 g/dL (12.0-16.0); LYMPH # 1.3 (1.2-3.4); LYMPH % 19.9 % (22.0-35.0); MEAN CELL VOLUME 87.8 fl (80.0-105.0); MEAN CORPUSCULAR HEMOGLOBIN 28.5 pg (25.0-35.0); MEAN CORPUSCULAR HGB CONC 32.5 g/dl (31.0-37.0); MEAN PLATELET VOLUME 8.7 fl (7.0-11.0); MONO # 0.5 (0.1-0.6); MONO % 7.7 % (1.0-6.0); RBC 3.68 10^6/uL (3.5-6.1); WHITE BLOOD COUNT 6.7 10^3/uL (4.5-11.0)
[2018-03-13 07:38] LABS: ALB/GLOB RATIO 1.3 (1.1-1.8); ALBUMIN 3.1 g/dL (3.0-4.8); ALT/SGPT 27 U/L (7-56); AST/SGOT 25 U/L (14-36); BLOOD UREA NITROGEN 10 mg/dL (7-21); CALCIUM 8.7 mg/dL (8.4-10.5); GFR NON-AFRICAN AMERICAN > 60
[2018-03-13] MEDS: Arformoterol 15 mcg/2 ml Inh Sol IH SCH ×2 (07:42→19:57)
[2018-03-13] MEDS: Budesonide 0.5 mg/2 ml Inhal Susp UD IH SCH ×2 (07:42→19:57)
[2018-03-13 09:14] LABS: INR 1.61; PROTHROMBIN TIME 18.7 SECONDS (9.4-12.5)
[2018-03-13] MEDS: Lactobacillus Acidophilus 500 MU Cap PO SCH ×2 (10:56→19:09)
[2018-03-13] MEDS: Mupirocin 2% Ointment 15 GM TUBE TOP SCH ×2 (10:58→19:10)
--- NOTE | 2018-03-13 12:41 | CP.PCM.PN ---
Subjective - Date & Time of Evaluation Date of Evaluation: 03/13/18 Time of Evaluation: 12:38 - Subjective Subjective: Podiatry Consult Note: Dr. Templeton 72F patient seen and evaluated for R anterior leg ulceration. Patient resting comfortably and in NAD. No acute events overnight. Patient states that her R leg ulcer is painful to the touch. She denies any other pedal complaints at this time. She denies N/V/F/CP. Objective - Vital Signs/Intake and Output Vital Signs (last 24 hours): Temp Pulse Resp BP Pulse Ox 98.8 F 69 19 145/77 99 03/13/18 06:00 03/13/18 10:58 03/13/18 06:00 03/13/18 10:58 03/11/18 12:49 Intake and Output: 03/13/18 03/13/18 06:59 18:59 Intake Total 240 Balance 240 - Medications Medications: Current Medications Acetaminophen (Tylenol 325mg Tab) 650 mg PO Q6H PRN PRN Reason: Fever >100.4 F Last Admin: 03/12/18 14:33 Dose: 650 mg Albuterol/Ipratropium (Duoneb 3 Mg/0.5 Mg (3 Ml) Ud) 3 ml IH [id number] [facility] Last Admin: 03/13/18 07:42 Dose: 3 ml Albuterol/Ipratropium (Duoneb 3 Mg/0.5 Mg (3 Ml) Ud) 3 ml IH Q2H PRN PRN Reason: Shortness of Breath Alprazolam (Xanax) 0.25 mg PO TID PRN; Protocol PRN Reason: Anxiety Stop: 03/19/18 14:01 Last Admin: 03/12/18 22:30 Dose: 0.25 mg Arformoterol Tartrate (Brovana) 15 mcg IH [id number] [facility] Last Admin: 03/13/18 07:42 Dose: 15 mcg Budesonide (Pulmicort Respules) 0.5 mg IH [id number] [facility] Last Admin: 03/13/18 07:42 Dose: 0.5 mg Digoxin (Lanoxin) 0.25 mg PO 1400 [facility] Last Admin: 03/11/18 14:20 Dose: Not Given Digoxin (Digoxin) 0.125 mg PO 1400 [facility] Diltiazem HCl (Cardizem) 120 mg PO DAILY [facility] Last Admin: 03/13/18 10:57 Dose: 120 mg Furosemide (Lasix) 40 mg PO DAILY [facility] Last Admin: 03/13/18 10:56 Dose: 40 mg Gabapentin (Neurontin) 400 mg PO DAILY [facility]; Protocol Last Admin: 03/13/18 10:57 Dose: 400 mg Lactobacillus Acidophilus (Bacid Acidophilus) 1 cap PO BID [facility] Last Admin: 03/13/18 10:56 Dose: 1 cap Lisinopril (Zestril) 10 mg PO DAILY [facility] Last Admin: 03/13/18 10:58 Dose: 10 mg Metoprolol Tartrate (Lopressor) 25 mg PO BID [facility] Last Admin: 03/13/18 10:57 Dose: 25 mg Mupirocin (Bactroban Ointment) 0 gm TOP BID [facility] Last Admin: 03/13/18 10:58 Dose: Not Given Pantoprazole Sodium (Protonix Ec Tab) 40 mg PO 0600 [facility] Last Admin: 03/13/18 06:39 Dose: 40 mg Sertraline HCl (Zoloft) 200 mg PO DAILY [facility] Last Admin: 03/13/18 10:57 Dose: 200 mg Warfarin Sodium (Coumadin) 4 mg PO 1800 [facility]; Protocol Last Admin: 03/12/18 19:21 Dose: 4 mg - Labs Labs: 03/13/18 06:30 03/13/18 06:30 PT 18.7 SECONDS (9.4-12.5) H 03/13/18 08:40 INR 1.61 03/13/18 08:40 APTT 46.2 Seconds (25.1-36.5) H 03/10/18 23:13 - Constitutional Appears: Well, Non-toxic, No Acute Distress - Head Exam Head Exam: ATRAUMATIC, NORMOCEPHALIC - Extremities Exam Additional comments: RLE focused exam: Vascular: DP/PT faintly palpable, CFT < 3 seconds to all digits, TG warm to warm, mild edema appreciated ventura-ulceration Ortho: Pain upon palpation of R anterior leg ulceration, MMT 5/5 in all compartments Neuro: Gross and protective sensation intact Derm: Ulceration noted to anterior aspect of leg, measuring approximately 2x1.5x.2, with mixed fibrous/necrotic base, mild serous drainage appreciated, no purulence, mild erythema ventura-wound, no tunneling, no tracking, no undermining appreciated - Neurological Exam Neurological Exam: Alert, Awake, Oriented x3 - Psychiatric Exam Psychiatric exam: Normal Affect, Normal Mood - Skin Skin Exam: Warm Assessment and Plan - Assessment and Plan (Free Text) Assessment: 72F patient seen and evaluated for R anterior leg ulceration. Plan: Patient seen and evaluated Afebrile, WBC 6.7 R leg wound culture taken; gram - Percy, gram + cocci Blood culture taken; no growth after 24 hrs ID consulted; reccs appreciated Local wound care to R ulceration: Bactroban, Maxorb, Optifoam Non-invasive vascular studies ordered; pending Patient to follow up with Dr. Li upon d/c
[2018-03-13 12:43] VITALS: BP 141/74; PULSE 62; TEMP 98
[2018-03-13] MEDS ORDERED: Amoxicillin-Clav 875-125 mg Tab PO SCH (13:45)
--- NOTE | 2018-03-13 15:06 | PN ---
DATE: 03/13/2018 REASON FOR CONSULTATION: Followup, atypical chest pain, bradycardia, elevated digoxin level, history of atrial fibrillation, on anticoagulation. SUBJECTIVE: The patient feels better. Denies any chest pain or shortness of breath. PHYSICAL EXAMINATION: GENERAL: Not in apparent distress. VITAL SIGNS: Temperature afebrile, heart rate 76, blood pressure 141/60. HEENT: PERRLA. Extraocular muscles intact. NECK: Supple. No carotid bruit or thyromegaly. CHEST: Clear to auscultation. HEART: S1 and S2 regular. ABDOMEN: Soft. EXTREMITIES: Clubbing and cyanosis negative. LABORATORY DATA: Blood workup as follows: Digoxin level 1.2 today, yesterday was 1.9. WBC 6.7, hemoglobin 10.6, hematocrit 32.3, platelet count 255. Chemistry showed sodium 130, potassium 4.4, chloride 94, carbon dioxide 32, anion gap 5, BUN 10, creatinine 0.6. Troponin remains negative. INR 1.61. IMPRESSION: A 72-year-old female with past medical history significant for paroxysmal atrial fibrillation, nonischemic cardiomyopathy, nonobstructive coronary artery disease, atrial fibrillation, admitted with atypical chest pain, generalized weakness, found to be in atrial fibrillation with slow rate. Digoxin level is 1.9. Digoxin was held as well as metoprolol was to 25 p.o. b.i.d. Repeat digoxin level today is 1.2. RECOMMENDATION: Continue Cardizem CD 120 mg daily, continue Coumadin 2 to 2.5. We will repeat the digoxin, start from tomorrow to decrease the dose of 0.125. metoprolol 25 p.o. b.i.d. We will follow with you. Again we will decrease the digoxin dose to 0.125 as well as decrease the dose of metoprolol 25 p.o. b.i.d. Possible discharge . Thank you Dr. Burno for providing us the opportunity in taking care of the patient, Demian Alston. We will follow you. We will discontinue telemetry. Mak Mendez MD [facility] # [id number]
--- NOTE | 2018-03-13 16:02 | CP.PCM.DIS ---
Provider - Provider Date of Admission: 03/11/18 09:49 Attending physician: Mak Sparrow MD Primary care physician: Mak Mendez MD Consults: 03/11/18 04:15 Physician Consult Routine Comment: Consulting Provider: Reynaldo Hernandez Consulting Physician: Reynaldo Hernandez Reason for Consult: LE skin ulcer 03/11/18 09:26 Cardiology Consult Routine Comment: Consulting Provider: Mak Mendez Consulting Physician: Mak Mendez Reason for Consult: chest pain 03/11/18 09:58 Podiatry Consult Routine Comment: Consulting Provider: Rosalia Li Consulting Physician: Rosalia Li Reason for Consult: Open R leg ulcer 03/11/18 12:46 Nursing Referral for Wound Care Routine Comment: Physician Instructions: Reason For Exam: ulcer to right lower mayes 03/11/18 13:15 Social Work Referral Routine Comment: chest pain Physician Instructions: Reason For Exam: eval 03/11/18 13:47 Case Management Referral Routine Comment: Physician Instructions: Reason For Exam: Reason for Referral: Discharge Planning Inpatient COST COORDINATOR Core Measures Referral Routine Comment: chest pain Physician Instructions: Reason For Exam: eval Respiratory Therapy Referral Routine Comment: smokes 1 cig a day Physician Instructions: Reason For Exam: eval Transition In Care/Readmission Reduction Routine Comment: siva pain Physician Instructions: Reason For Exam: eval Time Spent in preparation of Discharge (in minutes): 35 Hospital Course - Lab Results Lab Results: Micro Results 03/12/18 12:10 Leg - Right Wound Culture - Preliminary Gram Negative Percy Gram Positive Cocci 03/10/18 23:15 Blood Blood Culture - Preliminary NO GROWTH AFTER 48 HOURS 03/10/18 22:30 Blood Blood Culture - Preliminary NO GROWTH AFTER 48 HOURS Most Recent Lab Values WBC 6.7 10^3/uL (4.5-11.0) 03/13/18 06:30 RBC 3.68 10^6/uL (3.5-6.1) 03/13/18 06:30 Hgb 10.5 g/dL (12.0-16.0) L 03/13/18 06:30 Hct 32.3 % (36.0-48.0) L 03/13/18 06:30 MCV 87.8 fl (80.0-105.0) 03/13/18 06:30 MCH 28.5 pg (25.0-35.0) 03/13/18 06:30 MCHC 32.5 g/dl (31.0-37.0) 03/13/18 06:30 RDW 16.0 % (11.5-14.5) H 03/13/18 06:30 Plt Count 255 10^3/uL (120.0-450.0) 03/13/18 06:30 MPV 8.7 fl (7.0-11.0) 03/13/18 06:30 Gran % 70.5 % (50.0-68.0) H 03/13/18 06:30 Lymph % (Auto) 19.9 % (22.0-35.0) L 03/13/18 06:30 Parker % (Auto) 7.7 % (1.0-6.0) H 03/13/18 06:30 Eos % (Auto) 1.6 % (1.5-5.0) 03/13/18 06:30 Baso % (Auto) 0.3 % (0.0-3.0) 03/13/18 06:30 Gran # 4.74 (1.4-6.5) 03/13/18 06:30 Lymph # (Auto) 1.3 (1.2-3.4) 03/13/18 06:30 Parker # (Auto) 0.5 (0.1-0.6) 03/13/18 06:30 Eos # (Auto) 0.1 (0.0-0.7) 03/13/18 06:30 Baso # (Auto) 0.02 K/mm3 (0.0-2.0) 03/13/18 06:30 PT 18.7 SECONDS (9.4-12.5) H 03/13/18 08:40 INR 1.61 03/13/18 08:40 APTT 46.2 Seconds (25.1-36.5) H 03/10/18 23:13 Sodium 130 mmol/L (132-148) L 03/13/18 06:30 Potassium 4.4 mmol/L (3.6-5.0) 03/13/18 06:30 Chloride 94 mmol/L (98-107) L 03/13/18 06:30 Carbon Dioxide 32 mmol/L (21-33) 03/13/18 06:30 Anion Gap 8 (10-20) L 03/13/18 06:30 BUN 10 mg/dL (7-21) 03/13/18 06:30 Creatinine 0.6 mg/dl (0.7-1.2) L 03/13/18 06:30 Est GFR ( Amer) > 60 03/13/18 06:30 Est GFR (Non-Af Amer) > 60 03/13/18 06:30 Random Glucose 87 mg/dL (70-110) 03/13/18 06:30 Hemoglobin A1c 5.5 % (4.2-6.5) 03/12/18 05:20 Calcium 8.7 mg/dL (8.4-10.5) 03/13/18 06:30 Phosphorus 3.8 mg/dL (2.5-4.5) 03/13/18 06:30 Magnesium 1.7 mg/dL (1.7-2.2) 03/13/18 06:30 Total Bilirubin 0.5 mg/dL (0.2-1.3) 03/13/18 06:30 AST 25 U/L (14-36) 03/13/18 06:30 ALT 27 U/L (7-56) 03/13/18 06:30 Alkaline Phosphatase 71 U/L (38-126) 03/13/18 06:30 Lactate Dehydrogenase 458 U/L (333-699) 03/10/18 23:13 Total Creatine Kinase 61 U/L (35-230) 03/10/18 23:13 Troponin I < 0.01 ng/mL 03/11/18 11:30 Total Protein 5.4 g/dL (5.8-8.3) L 03/13/18 06:30 Albumin 3.1 g/dL (3.0-4.8) 03/13/18 06:30 Globulin 2.3 gm/dL 03/13/18 06:30 Albumin/Globulin Ratio 1.3 (1.1-1.8) 03/13/18 06:30 Triglycerides 47 mg/dL (35-160) 03/12/18 05:20 Cholesterol 141 mg/dL (130-200) 03/12/18 05:20 LDL Cholesterol Direct 49 mg/dL (0-129) 03/12/18 05:20 HDL Cholesterol 84 mg/dL (29-60) H 03/12/18 05:20 TSH 3rd Generation 0.47 mIU/mL (0.46-4.68) 03/12/18 05:20 Digoxin 1.2 ng/mL (0.8-2.0) 03/13/18 06:30 - Hospital Course Hospital Course: Upon admission, 72 y/o female with PMH of Afib on warfarin, COPD, diastolic CHF, HTN, and Anxiety presents to the ED for left sided chest pain. Patient is unable to give more info about the quality or severity of the pain. She states that it occurred twice and lasted for 5 seconds while sitting. It was not associated with SOB, palpitations, diaphoresis, nausea, vomiting. She also complaints of left shoulder and wrist pain/numbness, that is not related to the chest pain mention earlier. It is associated with neck pain and headache. She denied any trauma or heavy lifting. Limb pain is sporadic and lasts for few minutes. She did not try OTC drugs. She was concerned about MT and wanted to come to ED given her cardiac history of CHF. Patient also has right lower leg ulcer, 2x2 cm, clean, with no blood of discharge. She uses topical steroid daily. She admits to LE edema of the same leg. Can ambulate with no difficulty. During hospital course, patient's troponins were negativr x3 and EKG did not show any remarkabl ST changes. Previous echo on 01/2018 showed EF of 54% and patient continued on lisinopril and lopressor. She was initially hyponatremic and hypokalemic upon admission which resolved on the following day. CXR was negative for any acute disease. Her INR dropped to 1.58 and warfarin increased to 4mg. Afib rate controlled with diltiazem and lopressor. Patient noted to have bradycardia on 03/11 with HR in the 30's and started on dopamine drip. Digoxin level was 1.9 and digoxin was held for one day with repeat digoxin level of 1.2. Patient was also seen for RLE ulcer that wound culture grew positive gram positive cocci and gram negative percy. Patient started on empiric antibiotics and will follow up with podiatry/wound care outpatient with tentative appointment this Sunday. Discharge Exam - Additional Findings Additional findings: - Constitutional Appears: Well, No Acute Distress - Head Exam Head Exam: ATRAUMATIC, NORMAL INSPECTION, NORMOCEPHALIC - Eye Exam Eye Exam: EOMI, Normal appearance, PERRL Pupil Exam: NORMAL ACCOMODATION, PERRL - Respiratory Exam Respiratory Exam: present: CTA B/L absent: Accessory Muscle Use, Rales, re spiratory disress - Cardiovascular Exam Cardiovascular Exam: Irregular Rhythm, +S1, +S2. absent: Gallop, JVD, Rubs - GI/Abdominal Exam GI & Abdominal Exam: Normal Bowel Sounds, Soft. absent: Tenderness - Extremities Exam Extremities exam: Positive for: full ROM, normal capillary refill Additional comments: right LE edema + 1 - Back Exam Back exam: NORMAL INSPECTION. absent: CVA tenderness (L), CVA tenderness (R) - Neurological Exam Neurological exam: Alert, CN II-XII Intact, Normal Gait, Oriented x3, Reflexes Normal - Psychiatric Exam Psychiatric exam: Normal Affect, Normal Mood - Skin Additional comments: right lower leg ulcer measuring approx 2x3 cm, necrotic base with no overt bleeding or discharge or pus noted Discharge Plan - Discharge Medications Prescriptions: Amoxicillin/Clavulanate [Augmentin 875 MG-125 MG] 1 tab PO Q12 6 Days #12 tab Digoxin 0.125 mg PO DAILY #30 tab diltiaZEM [Cardizem] 120 mg PO DAILY #30 tab Doxycycline Hyclate 100 mg PO Q12 6 Days #12 capsule Metoprolol Tartrate [Lopressor] 25 mg PO BID 30 Days #60 tab - Follow Up Plan Condition: STABLE Disposition: HOME/ ROUTINE Instructions: Heart Healthy Diet, Preventing Falls in the Older Adult, Chest Pain (DC), What You Should Know About Antibiotics Additional Instructions: Please follow up with your primary care doctor within 5-7 days of discharge. Please call to make appointment to see wound care center and Dr. Li, your floor renovator, on 03/18/18 for evaluation of your leg ulcer and for antibiotics adjustment of your wound culture. Please call [phone] ext [phone]. Please follow up with your hr generalist, Dr. Mendez in 3-5 days of discharge. Please take doxycycline and augmentin (antibiotics) twice a day for 6 days. Please start taking digoxin at reduced dose of 0.125mg daily from tomorrow. You will start taking lopressor 25mg twice a day. Otherwise, please continue taking your home medications as previously prescribed. As per our discussion, you do not refills for your other home medications. Please return to the ED for any new or worsening symptoms. Referrals: Mak Mendez MD [Primary Care Provider] - Rosalia Li DPM [Staff Provider] -
--- NOTE | 2018-03-13 16:11 | US ---
PROCEDURE: Lower extremity SHYAM exam HISTORY: Peripheral vascular disease with pain and ulceration. Smoker. PHYSICIAN(S): Enrique Soto MD. FINDINGS: The resting SHYAM's are normal: right, 1.06and left, 1.05. The brachial systolic pressures are symmetric. The high thigh pressures and waveforms are relatively normal. The calf PVR waveforms augment normally. No significant gradients are noted across the thighs. The ankle and metatarsal waveforms are pulsatile and mildly blunted. This may represent mild bilateral tibial disease IMPRESSION: 1. Relatively normal SHYAM and PVR examination at rest.
[2018-03-14] MEDS ORDERED: Digoxin 125 mcg (0.125 mg) Tab PO SCH (14:00)
== END 2018-03-13 20:00 | disposition home or self-care (01) | DRG 313 ==
LOC: ED 21:52 → ERH 03-11 00:58 → OBSVTOIN 03-11 09:49 → ERH 03-11 15:36 → 2RNO 03-11 16:15
PROVIDERS: ADMIT Internal Medicine; ATTEND Internal Medicine
PROC: 3E02340 Introduction of Influenza Vaccine into Muscle, Percutaneous Approach (ICD-10-PCS; principal; 2018-03-11)
PROC: 3E0234Z Introduction of Serum, Toxoid and Vaccine into Muscle, Percutaneous Approach (ICD-10-PCS; 2018-03-11)
DX: R07.89 Other chest pain (principal); E87.1 Hypo-osmolality and hyponatremia; L97.819 Non-pressure chronic ulcer of other part of right lower leg with unspecified severity; I42.9 Cardiomyopathy, unspecified; I50.32 Chronic diastolic (congestive) heart failure; I11.0 Hypertensive heart disease with heart failure; E87.6 Hypokalemia; F17.210 Nicotine dependence, cigarettes, uncomplicated; I08.3 Combined rheumatic disorders of mitral, aortic and tricuspid valves; J44.9 Chronic obstructive pulmonary disease, unspecified; I25.10 Atherosclerotic heart disease of native coronary artery without angina pectoris; I48.0 Paroxysmal atrial fibrillation; K21.9 Gastro-esophageal reflux disease without esophagitis; F41.9 Anxiety disorder, unspecified; Z79.01 Long term (current) use of anticoagulants; Z95.5 Presence of coronary angioplasty implant and graft; Z23 Encounter for immunization

== ENCOUNTER 2018-08-03 11:27 | Inpatient (IN) | payer MEDICARE ==
[2018-08-03] MEDS ORDERED: Sodium Chloride 0.9% 500 ML IV ONE (11:53)
[2018-08-03] MEDS ORDERED: Albuterol-Ipratrop 3 mg / 0.5 (3 ml) UD IH STA (11:53)
--- NOTE | 2018-08-03 12:01 | ED PDOC ---
Arrival/HPI - General Chief Complaint: Shortness Of Breath Time Seen by Provider: 08/03/18 11:44 Historian: Patient - Critical Care Critical Care Minutes: 30 minutes - History of Present Illness Time/Duration: > week Symptom Onset: Gradual Symptom Course: Worsening Severity Level: Severe Activities at Onset: Rest Associated Symptoms (Text): 08/03/18 11:58 Patient complains of severe generalized weakness and fatigue with increasing falls over the last week or so. She has increasing shortness of breath. There is been some chest pain. She struck her left periorbital area and right occipital area in several falls over the week. No fever or chills. She katelin nues to smoke. History of COPD and CHF. Her EKG shows rapid atrial fibrillation. Past Medical History - Infectious Disease Hx of Infectious Diseases: None - Cardiac Hx Cardiac Disorders: Yes (A fib, cardiac cath x 1 with cardiac stent.) Hx Congestive Heart Failure: Yes (diastolic) Hx Hypertension: Yes - Pulmonary Hx Chronic Obstructive Pulmonary Disease (COPD): Yes - Neurological Hx Neurological Disorder: Yes (headaches) Hx Dizziness: Yes - HEENT Hx HEENT Disorder: No - Renal Hx Renal Disorder: No - Endocrine/Metabolic Hx Endocrine Disorders: No - Hematological/Oncological Hx Blood Disorders: No - Integumentary Hx Dermatological Disorder: No - Musculoskeletal/Rheumatological Hx Falls: Yes - Gastrointestinal Hx Gastrointestinal Disorders: Yes (reflux) - Genitourinary/Gynecological Hx Genitourinary Disorders: No - Psychiatric Hx Psychophysiologic Disorder: Yes Hx Anxiety: Yes Hx Depression: Yes Hx Substance Use: No - Surgical History Hx Cardiac Catheterization: Yes (X1) Hx Coronary Stent: Yes (unknown) Other/Comment: robotic left lower wedge resection and lymphaderectomy 06/2015, polypectomy, left lung nodule removed 2 yrs ago at [facility] [place] benign - Anesthesia Hx Anesthesia: Yes Hx Anesthesia Reactions: No Hx Malignant Hyperthermia: No - Suicidal Assessment Feels Threatened In Home Enviroment: No Family/Social History - Physician Review Nursing Documentation Reviewed: Yes Family/Social History: Unknown Family HX Smoking Status: Heavy Smoker > 10 Cigarettes Daily Hx Alcohol Use: No Hx Substance Use: No Allergies/Home Meds Allergies/Adverse Reactions: Allergies azithromycin [From Zithromax] Adverse Reaction (Intermediate, Verified 08/03/18 11:53) RASH "JUST DOES NOT WORK" Home Medications: Home Meds Medication Instructions Recorded Confirmed Pantoprazole Sodium [Protonix] 40 mg PO ACB 10/24/17 03/13/18 ALPRAZolam [Xanax] 1 mg PO TID 03/11/18 03/13/18 Albuterol Sulfate [Ventolin Hfa] 1 puff IH Q6 PRN 03/11/18 03/11/18 Albuterol/Ipratropium [Duoneb 3 3 ml IH Q6 PRN 03/11/18 03/13/18 mg/0.5 mg (3 ml) UD] Atorvastatin [Lipitor] 10 mg PO HS 03/11/18 03/11/18 Fluticasone/Salmeterol 250/50 1 puff IH Q12 03/11/18 03/11/18 [Advair Diskus] Furosemide [Lasix] 40 mg PO DAILY 03/11/18 03/13/18 Gabapentin [Neurontin] 400 mg PO QID 03/11/18 03/13/18 Lisinopril [Zestril] 2.5 mg PO DAILY 03/11/18 03/13/18 QUEtiapine [Seroquel] 25 mg PO BID 03/11/18 03/11/18 Sertraline [Zoloft] 100 mg PO BID 03/11/18 03/13/18 Review of Systems - Review of Systems Constitutional: Fatigue. absent: Fevers Respiratory: SOB, Cough, Wheezing. absent: Sputum Cardiovascular: Chest Pain, Palpitations, Syncope Gastrointestinal: Anorexia. absent: Abdominal Pain, Nausea, Vomiting Neurological: Headache, Dizziness, Gait Changes. absent: Focal Weakness Physical Exam Vital Signs Temp Pulse Resp BP Pulse Ox 08/03/18 11:27 98.1 F 98 H 18 129/88 96 Temperature: Afebrile Blood Pressure: Normal Pulse: Tachycardic Respiratory Rate: Normal Appearance: Positive for: Well-Appearing, Non-Toxic, Comfortable Pain Distress: None Mental Status: Positive for: Alert and Oriented X 3 - Systems Exam Head: Present: Atraumatic, Normocephalic Pupils: Present: PERRL Extroacular Muscles: Present: EOMI Conjunctiva: Present: Normal Mouth: Present: Moist Mucous Membranes Pharnyx: No: ERYTHEMA, EXUDATE, TONSILS ENLARGED Neck: Present: Normal Range of Motion Respiratory/Chest: Present: Respiratory Distress, Accessory Muscle Use, Wheezes, Decreased Breath Sounds, Retracting, Rhonchi, Tachypneic. No: Rales Cardiovascular: Present: Irregular Rhythm, Tachycardic Abdomen: No: Tenderness, Distention, Peritoneal Signs, Rebound, Guarding Upper Extremity: Present: Normal Inspection. No: Cyanosis, Edema Lower Extremity: Present: Other (Bilateral lower extremity pedal edema). No: Edema, CALF TENDERNESS, Tenderness, Swelling Neurological: Present: GCS=15, CN II-XII Intact, Speech Normal, Motor Func Grossly Intact, Normal Sensory Function, Normal Cerebellar Funct Skin: Present: Warm, Dry, Pale. No: Rashes Psychiatric: Present: Alert, Oriented x 3, Normal Insight, Normal Concentration Medical Decision Making ED Course and Treatment: 08/03/18 12:01 EKG shows rapid atrial fibrillation rate approximately [address] and T wave changes. Chest X-ray Dictator : Roma Cantu MD Report Date : 08/03/2018 12:32:47 IMPRESSION: No active pulmonary disease. COPD. - Lab Interpretations I have reviewed the lab results: Yes - RAD Interpretation Radiology Orders: 08/03/18 11:51 CHEST PORTABLE [RAD] Stat 08/03/18 11:52 HEAD W/O CONTRAST [CT] Stat Chest one view shows increased markings with no infiltrate or cardiomegaly. CT scan of the head is read by the radiologist shows atrophy only. No acute findings. Mobile Application Developer: ED Physician, Radiologist - Medication Orders Current Medication Orders: Albuterol/Ipratropium (Duoneb 3 Mg/0.5 Mg (3 Ml) Ud) 3 ml IH ONCE STA Stop: 08/03/18 11:54 Diltiazem HCl (Cardizem) 20 mg IVP ONCE ONE Stop: 08/03/18 11:53 diltiaZEM IVPB 100mg in NS (Cardizem 100mg In Ns) 100 mls @ 5 mls/hr IV .Q20H PRN PRN Reason: PER MD Sodium Chloride (Sodium Chloride 0.9%) 500 mls @ 500 mls/hr IV ONCE ONE Stop: 08/03/18 12:52 Disposition/Present on Arrival - Present on Arrival Any Indicators Present on Arrival: No History of DVT/PE: No History of Uncontrolled Diabetes: No Urinary Catheter: No History of Decub. Ulcer: No History Surgical Site Infection Following: None - Disposition Have Diagnosis and Disposition been Completed?: Yes Diagnosis: Atrial fibrillation, COPD exacerbation, Dyspnea, CHF (congestive heart failure) Disposition: HOSPITALIZED Disposition Time: 13:55 Patient Plan: Admission, Telemetry Patient Problems: Current Active Problems Problem Status Onset COPD exacerbation Acute Dyspnea Acute Atrial fibrillation Chronic CHF (congestive heart failure) Chronic Condition: SERIOUS
[2018-08-03 12:07] LABS: VENOUS BLOOD GAS BASE EXCESS -2.4 mmol/L (0.0-2.0); VENOUS BLOOD GAS PO2 46 mm/Hg (30-55); VENOUS BLOOD PH 7.41 (7.32-7.43)
--- NOTE | 2018-08-03 12:36 | RAD ---
Date of service: 08/03/2018 HISTORY: sob COMPARISON: 03/10/2018 FINDINGS: LUNGS: The lungs are hyperinflated and there is peribronchial thickening with chronic changes in both lungs. No focal consolidation. PLEURA: No pleural effusions or pneumothorax. CARDIOVASCULAR: The heart is normal in size. No aortic atherosclerotic calcifications present. OSSEOUS STRUCTURES: Within normal limits for the patient's age. VISUALIZED UPPER ABDOMEN: Normal. OTHER FINDINGS: None. IMPRESSION: No active pulmonary disease. COPD.
[2018-08-03] MEDS: diltiaZEM IVPB 100mg in NS 100 ML IV PRN (12:45)
[2018-08-03 13:03] LABS: BASO # 0.03 K/mm3 (0.0-2.0); BASO % 0.2 % (0.0-3.0); EOS # 0.1 (0.0-0.7); EOS % 0.9 % (1.5-5.0); HEMOGLOBIN 12.5 g/dL (12.0-16.0); LYMPH # 0.8 (1.2-3.4); LYMPH % 6.6 % (22.0-35.0); MEAN CELL VOLUME 88.5 fl (80.0-105.0); MEAN CORPUSCULAR HEMOGLOBIN 28.7 pg (25.0-35.0); MEAN CORPUSCULAR HGB CONC 32.4 g/dl (31.0-37.0); MONO # 0.8 (0.1-0.6); MONO % 6.3 % (1.0-6.0); RBC 4.36 10^6/uL (3.5-6.1); RED CELL DISTRIBUTION WIDTH 14.5 % (11.5-14.5); WHITE BLOOD COUNT 12.1 10^3/uL (4.5-11.0)
[2018-08-03 13:08] LABS: ALB/GLOB RATIO 1.5 (1.1-1.8); ALBUMIN 3.9 g/dL (3.0-4.8); ALT/SGPT 28 U/L (7-56); AST/SGOT 31 U/L (14-36); BLOOD UREA NITROGEN 9 mg/dL (7-21); CALCIUM 9.2 mg/dL (8.4-10.5); GFR NON-AFRICAN AMERICAN > 60
[2018-08-03 13:11] LABS: INR 1.35; PARTIAL THROMBOPLASTIN TIME 45.2 Seconds (26.9-38.3); PROTHROMBIN TIME 15.3 SECONDS (9.4-12.5)
[2018-08-03 13:15] LABS: URINE BILIRUBIN NEGATIVE (NEGATIVE); URINE BLOOD NEGATIVE (NEGATIVE); URINE GLUCOSE (UA) NEGATIVE (NEGATIVE); URINE LEUKOCYTE ESTERASE TRACE Leu/uL (NEGATIVE); URINE PROTEIN NEGATIVE mg/dL (<30 mg/dL); URINE UROBILINOGEN 0.2 E.U./dL (<1 E.U./dL)
[2018-08-03 13:19] LABS: URINE APPEARANCE CLEAR (CLEAR); URINE COLOR YELLOW (YELLOW)
[2018-08-03 13:20] LABS: B-TYPE NATRIURETIC PEPTIDE 2260 pg/mL (0-450); TROPONIN I < 0.01 ng/mL
[2018-08-03 13:39] LABS: URINE BACTERIA TRACE /hpf; URINE EPITHELIAL CELLS 0 - 2 /hpf (0-5); URINE RBC 0 - 2 /hpf (0-2); URINE WBC 0 - 2 /hpf (0-6)
--- NOTE | 2018-08-03 14:28 | CT ---
Date of service: 08/03/2018 PROCEDURE: CT HEAD WITHOUT CONTRAST. HISTORY: trauma COMPARISON: 12/28/2017. TECHNIQUE: Axial computed tomography images were obtained through the head/brain without intravenous contrast. Radiation dose: Total exam DLP = 711.31 mGy-cm. This CT exam was performed using one or more of the following dose reduction techniques: Automated exposure control, adjustment of the mA and/or kV according to patient size, and/or use of iterative reconstruction technique. FINDINGS: HEMORRHAGE: No intracranial hemorrhage. BRAIN: There are mild chronic microangiopathic changes. There is no mass, mass effect or abnormal extra-axial fluid collection. There is no territorial infarction. The midline sagittal structures are normal. VENTRICLES: There is mild age-related global parenchymal volume loss and proportionate enlargement of the ventricles and cortical sulci. CALVARIUM: There is no calvarial fracture or extracranial soft tissue swelling. PARANASAL SINUSES: Predominantly clear. MASTOID AIR CELLS: Predominantly clear. OTHER FINDINGS: None. IMPRESSION: No acute intracranial abnormality. Mild chronic microangiopathic changes and mild age-related global parenchymal volume loss.
[2018-08-03] MEDS ORDERED: Magnesium Sulfate 2 gm/50 ml 2 GM/50 ML BAG IVPB ONE (14:52)
[2018-08-03] MEDS ORDERED: Albuterol-Ipratrop 3 mg / 0.5 (3 ml) UD IH PRN (15:13)
--- NOTE | 2018-08-03 15:40 | CP.PCM.HP ---
<William Humphrey - Last Filed: 08/03/18 17:30> History of Present Illness - History of Present Illness History of Present Illness: History and Physical for Hospitalist Dr. Romeo Humphrey PGY2 Chief Complaint: Shortness of breath, weakness and fatigue x 3 weeks HPI: Patient is a 72 F with past medical history of paroxysmal atrial fibrillation on coumadin, non ischemic cardiomyopathy, coronary artery disease, and COPD who presents with complaints of shortness of breath as well as weakness and fatigue which has been accompanied by several falls in the past couple of weeks. Patient states normally her shortness of breath was controlled with advair and ventolin however when she woke up this morning and tried to alleviate her symptoms with ventolin and advair to no avail she decided it was time to come to the emergency department. Denies nausea, vomiting, diarrhea, headache, body aches, cough, fever, chills. PMD: Dr. Casas Hair Designer: Dr. Mendez Pharmacy: [facility] in [place], [place] Social history: admits to tobacco use, denies alcohol and drug abuse PMH: Afib, COPD, diastolic CHF, HTN, and Anxiety PSH: lipoma resection Allergies: azithromycin (rash) FH: Non contributory Present on Admission - Present on Admission Any Indicators Present on Admission: No Review of Systems - Constitutional Constitutional: absent: Chills, Fever - EENT Eyes: absent: Change in Vision Nose/Mouth/Throat: absent: Nasal Congestion - Cardiovascular Cardiovascular: Dyspnea. absent: Chest Pain - Respiratory Respiratory: Dyspnea. absent: Cough - Gastrointestinal Gastrointestinal: Excessive Flatus. absent: Abdominal Pain, Bloating, Constipation, Nausea - Genitourinary Genitourinary: absent: Dysuria - Musculoskeletal Musculoskeletal: absent: Back Pain - Neurological Neurological: absent: Dizziness, Numbness Past Patient History - Infectious Disease Hx of Infectious Diseases: None - Past Medical History & Family History Past Medical History?: Yes - Past Social History Smoking Status: Heavy Smoker > 10 Cigarettes Daily - CARDIAC Hx Cardiac Disorders: Yes (A fib, cardiac cath x 1 with cardiac stent.) Hx Congestive Heart Failure: Yes (diastolic) Hx Hypertension: Yes - PULMONARY Hx Chronic Obstructive Pulmonary Disease (COPD): Yes - NEUROLOGICAL Hx Neurological Disorder: Yes (headaches) Hx Dizziness: Yes - HEENT Hx HEENT Problems: No - RENAL Hx Chronic Kidney Disease: No - ENDOCRINE/METABOLIC Hx Endocrine Disorders: No - HEMATOLOGICAL/ONCOLOGICAL Hx Blood Disorders: No - INTEGUMENTARY Hx Dermatological Problems: No - MUSCULOSKELETAL/RHEUMATOLOGICAL Hx Falls: Yes - GASTROINTESTINAL Hx Gastrointestinal Disorders: Yes (reflux) - GENITOURINARY/GYNECOLOGICAL Hx Genitourinary Disorders: No - PSYCHIATRIC Hx Psychophysiologic Disorder: Yes Hx Anxiety: Yes Hx Depression: Yes Hx Substance Use: No - SURGICAL HISTORY Hx Cardiac Catheterization: Yes (X1) Hx Coronary Stent: Yes (unknown) Other/Comment: robotic left lower wedge resection and lymphaderectomy 06/2015, polypectomy, left lung nodule removed 2 yrs ago at [facility] benign - ANESTHESIA Hx Anesthesia: Yes Hx Anesthesia Reactions: No Hx Malignant Hyperthermia: No Meds Allergies/Adverse Reactions: Allergies Allergy/AdvReac Type Severity Reaction Status Date / Time azithromycin [From Zithromax] AdvReac Intermediate RASH Verified 08/03/18 16:14 Physical Exam - Constitutional Appears: Non-toxic - Head Exam Head Exam: NORMOCEPHALIC. absent: ATRAUMATIC, NORMAL INSPECTION Additional comments: abrasion of left forehead and occipital region - Eye Exam Eye Exam: EOMI, Normal appearance - ENT Exam ENT Exam: Mucous Membranes Moist, Normal Exam - Respiratory Exam Respiratory Exam: Rhonchi, Wheezes (insipiratory and expiratory wheezes bilaterally in lober lobes). absent: Clear to Auscultation Bilateral, NORMAL BREATHING PATTERN - Cardiovascular Exam Cardiovascular Exam: REGULAR RHYTHM, +S1, +S2 - GI/Abdominal Exam GI & Abdominal Exam: Normal Bowel Sounds, Soft. absent: Distended Results - Vital Signs Recent Vital Signs: Last Vital Signs Temp 98.1 F 08/03/18 11:27 Pulse 100 H 08/03/18 13:24 Resp 19 08/03/18 13:24 BP 131/80 08/03/18 14:06 Pulse Ox 99 08/03/18 13:24 - Labs Result Diagrams: 08/03/18 12:41 08/03/18 12:41 Labs: Laboratory Results - last 24 hr 08/03/18 08/03/18 08/03/18 00:12 12:40 12:41 WBC 12.1 H D RBC 4.36 Hgb 12.5 D Hct 38.6 MCV 88.5 MCH 28.7 MCHC 32.4 RDW 14.5 Plt Count 305 MPV 9.0 Neut % (Auto) 86.0 H Lymph % (Auto) 6.6 L [place] % (Auto) 6.3 H Eos % (Auto) 0.9 L Baso % (Auto) 0.2 Lymph # (Auto) 0.8 L [place] # (Auto) 0.8 H Eos # (Auto) 0.1 Baso # (Auto) 0.03 Absolute Neuts (auto) 10.42 H PT INR APTT pO2 46 VBG pH 7.41 VBG pCO2 34.0 L VBG HCO3 21.6 VBG Total CO2 22.6 VBG O2 Sat (Calc) 86.1 H VBG Base Excess -2.4 L VBG Potassium 3.0 L Sodium 135.0 Chloride 108.0 H Glucose 112 H Lactate 1.4 FiO2 21.0 Potassium Carbon Dioxide Anion Gap BUN Creatinine Est GFR ( Amer) Est GFR (Non-Af Amer) Random Glucose Calcium Magnesium Total Bilirubin AST ALT Alkaline Phosphatase Lactate Dehydrogenase Total Creatine Kinase Troponin I NT-Pro-B Natriuret Pep Total Protein Albumin Globulin Albumin/Globulin Ratio Venous Blood Potassium 3.0 L Urine Color Yellow Urine Appearance Clear Urine pH 6.0 Ur Specific [place] <= 1.005 Urine Protein Negative Urine Glucose (UA) Negative Urine Ketones Negative Urine Blood Negative Urine Nitrate Negative Urine Bilirubin Negative Urine Urobilinogen 0.2 Ur Leukocyte Esterase Trace H Urine RBC 0 - 2 Urine WBC 0 - 2 Ur Epithelial Cells 0 - 2 Urine Bacteria Trace Digoxin Alcohol, Quantitative 08/03/18 08/03/18 08/03/18 12:41 12:41 12:41 WBC RBC Hgb Hct MCV MCH MCHC RDW Plt Count MPV Neut % (Auto) Lymph % (Auto) [place] % (Auto) Eos % (Auto) Baso % (Auto) Lymph # (Auto) [place] # (Auto) Eos # (Auto) Baso # (Auto) Absolute Neuts (auto) PT 15.3 H INR 1.35 APTT 45.2 H pO2 VBG pH VBG pCO2 VBG HCO3 VBG Total CO2 VBG O2 Sat (Calc) VBG Base Excess VBG Potassium Sodium 132 Chloride 96 L Glucose Lactate FiO2 Potassium 4.1 Carbon Dioxide 26 Anion Gap 14 BUN 9 Creatinine 0.5 L Est GFR ( Amer) > 60 Est GFR (Non-Af Amer) > 60 Random Glucose 140 H Calcium 9.2 Magnesium 1.5 L Total Bilirubin 0.7 AST 31 ALT 28 Alkaline Phosphatase 62 Lactate Dehydrogenase 472 Total Creatine Kinase 72 Troponin I < 0.01 NT-Pro-B Natriuret Pep 2260 H Total Protein 6.6 Albumin 3.9 Globulin 2.7 Albumin/Globulin Ratio 1.5 Venous Blood Potassium Urine Color Urine Appearance Urine pH Ur Specific [place] Urine Protein Urine Glucose (UA) Urine Ketones Urine Blood Urine Nitrate Urine Bilirubin Urine Urobilinogen Ur Leukocyte Esterase Urine RBC Urine WBC Ur Epithelial Cells Urine Bacteria Digoxin Alcohol, Quantitative < 10 08/03/18 12:41 WBC RBC Hgb Hct MCV MCH MCHC RDW Plt Count MPV Neut % (Auto) Lymph % (Auto) [place] % (Auto) Eos % (Auto) Baso % (Auto) Lymph # (Auto) [place] # (Auto) Eos # (Auto) Baso # (Auto) Absolute Neuts (auto) PT INR APTT pO2 VBG pH VBG pCO2 VBG HCO3 VBG Total CO2 VBG O2 Sat (Calc) VBG Base Excess VBG Potassium Sodium Chloride Glucose Lactate FiO2 Potassium Carbon Dioxide Anion Gap BUN Creatinine Est GFR ( Amer) Est GFR (Non-Af Amer) Random Glucose Calcium Magnesium Total Bilirubin AST ALT Alkaline Phosphatase Lactate Dehydrogenase Total Creatine Kinase Troponin I NT-Pro-B Natriuret Pep Total Protein Albumin Globulin Albumin/Globulin Ratio Venous Blood Potassium Urine Color Urine Appearance Urine pH Ur Specific [place] Urine Protein Urine Glucose (UA) Urine Ketones Urine Blood Urine Nitrate Urine Bilirubin Urine Urobilinogen Ur Leukocyte Esterase Urine RBC Urine WBC Ur Epithelial Cells Urine Bacteria Digoxin 0.6 L Alcohol, Quantitative Assessment & Plan - Assessment and Plan (Free Text) Assessment: Patient is a 72 F with past medical history of paroxysmal atrial fibrillation on coumadin, non ischemic cardiomyopathy, coronary artery disease, and COPD who presents with complaints of shortness of breath as well as weakness and fatigue found to be in COPD exacerbation with rapid atrial fibrillation Plan: COPD exacerbation -Xopenex Donna and PRN; consider switching to duonebs tomorrow based on status of atrial fib -Solumedrol 40 mg BID -Pulmicort and Brovana -Azithromycin and Rocephin day #1 Atrial Fibrillation -Cardizem drip started -Warfarin 5 mg; patient originally on 3 mg however subtherapeutic. Physical therapy to determine if patient is at risk for falls to see if she can continue to be on warfarin upon discharge considering history of falls; CT head negative for acute bleed -Repeat INR -Cardiology consulted Diastolic CHF -Lasix 40 mg daily -Metoprolol on hold Non ischemic cardiomyopathy -Digoxin level -Continue digoxin -Metoprolol on hold for now -Lisinopril Non-obstructive CAD -Continue atorvastatin Hypomagnesemia -Replete with Magnesium sulfate Diet: Heart healthy diet Case discussed and reviewed with Dr. Walters <Fabio Walters - Last Filed: 08/03/18 18:46> Results - Vital Signs Recent Vital Signs: Last Vital Signs Temp 97.6 F 08/03/18 17:35 Pulse 101 H 08/03/18 17:54 Resp 20 08/03/18 17:35 BP 130/85 08/03/18 17:35 Pulse Ox 100 08/03/18 17:35 - Labs Result Diagrams: 08/03/18 12:41 08/03/18 12:41 Labs: Laboratory Results - last 24 hr 08/03/18 08/03/18 08/03/18 00:12 12:40 12:41 WBC 12.1 H D RBC 4.36 Hgb 12.5 D Hct 38.6 MCV 88.5 MCH 28.7 MCHC 32.4 RDW 14.5 Plt Count 305 MPV 9.0 Neut % (Auto) 86.0 H Lymph % (Auto) 6.6 L [place] % (Auto) 6.3 H Eos % (Auto) 0.9 L Baso % (Auto) 0.2 Lymph # (Auto) 0.8 L [place] # (Auto) 0.8 H Eos # (Auto) 0.1 Baso # (Auto) 0.03 Absolute Neuts (auto) 10.42 H PT INR APTT pO2 46 VBG pH 7.41 VBG pCO2 34.0 L VBG HCO3 21.6 VBG Total CO2 22.6 VBG O2 Sat (Calc) 86.1 H VBG Base Excess -2.4 L VBG Potassium 3.0 L Sodium 135.0 Chloride 108.0 H Glucose 112 H Lactate 1.4 FiO2 21.0 Potassium Carbon Dioxide Anion Gap BUN Creatinine Est GFR ( Amer) Est GFR (Non-Af Amer) Random Glucose Calcium Magnesium Total Bilirubin AST ALT Alkaline Phosphatase Lactate Dehydrogenase Total Creatine Kinase Troponin I NT-Pro-B Natriuret Pep Total Protein Albumin Globulin Albumin/Globulin Ratio Venous Blood Potassium 3.0 L Urine Color Yellow Urine Appearance Clear Urine pH 6.0 Ur Specific [place] <= 1.005 Urine Protein Negative Urine Glucose (UA) Negative Urine Ketones Negative Urine Blood Negative Urine Nitrate Negative Urine Bilirubin Negative Urine Urobilinogen 0.2 Ur Leukocyte Esterase Trace H Urine RBC 0 - 2 Urine WBC 0 - 2 Ur Epithelial Cells 0 - 2 Urine Bacteria Trace Digoxin Alcohol, Quantitative 08/03/18 08/03/18 08/03/18 12:41 12:41 12:41 WBC RBC Hgb Hct MCV MCH MCHC RDW Plt Count MPV Neut % (Auto) Lymph % (Auto) [place] % (Auto) Eos % (Auto) Baso % (Auto) Lymph # (Auto) [place] # (Auto) Eos # (Auto) Baso # (Auto) Absolute Neuts (auto) PT 15.3 H INR 1.35 APTT 45.2 H pO2 VBG pH VBG pCO2 VBG HCO3 VBG Total CO2 VBG O2 Sat (Calc) VBG Base Excess VBG Potassium Sodium 132 Chloride 96 L Glucose Lactate FiO2 Potassium 4.1 Carbon Dioxide 26 Anion Gap 14 BUN 9 Creatinine 0.5 L Est GFR ( Amer) > 60 Est GFR (Non-Af Amer) > 60 Random Glucose 140 H Calcium 9.2 Magnesium 1.5 L Total Bilirubin 0.7 AST 31 ALT 28 Alkaline Phosphatase 62 Lactate Dehydrogenase 472 Total Creatine Kinase 72 Troponin I < 0.01 NT-Pro-B Natriuret Pep 2260 H Total Protein 6.6 Albumin 3.9 Globulin 2.7 Albumin/Globulin Ratio 1.5 Venous Blood Potassium Urine Color Urine Appearance Urine pH Ur Specific [place] Urine Protein Urine Glucose (UA) Urine Ketones Urine Blood Urine Nitrate Urine Bilirubin Urine Urobilinogen Ur Leukocyte Esterase Urine RBC Urine WBC Ur Epithelial Cells Urine Bacteria Digoxin Alcohol, Quantitative < 10 08/03/18 12:41 WBC RBC Hgb Hct MCV MCH MCHC RDW Plt Count MPV Neut % (Auto) Lymph % (Auto) [place] % (Auto) Eos % (Auto) Baso % (Auto) Lymph # (Auto) [place] # (Auto) Eos # (Auto) Baso # (Auto) Absolute Neuts (auto) PT INR APTT pO2 VBG pH VBG pCO2 VBG HCO3 VBG Total CO2 VBG O2 Sat (Calc) VBG Base Excess VBG Potassium Sodium Chloride Glucose Lactate FiO2 Potassium Carbon Dioxide Anion Gap BUN Creatinine Est GFR ( Amer) Est GFR (Non-Af Amer) Random Glucose Calcium Magnesium Total Bilirubin AST ALT Alkaline Phosphatase Lactate Dehydrogenase Total Creatine Kinase Troponin I NT-Pro-B Natriuret Pep Total Protein Albumin Globulin Albumin/Globulin Ratio Venous Blood Potassium Urine Color Urine Appearance Urine pH Ur Specific [place] Urine Protein Urine Glucose (UA) Urine Ketones Urine Blood Urine Nitrate Urine Bilirubin Urine Urobilinogen Ur Leukocyte Esterase Urine RBC Urine WBC Ur Epithelial Cells Urine Bacteria Digoxin 0.6 L Alcohol, Quantitative Attending/Attestation - Attestation I have personally seen and examined this patient.: Yes I have fully participated in the care of the patient.: Yes I have reviewed all pertinent clinical information: Yes Notes (Text): 08/03/18 18:40 72 year old female with past medical history of paroxysmal afib on coumadin, diastolic CHF, CAD, and COPD who presents with complaint of weakness, fatigue, shortness of breath and falls at home. Admitted for COPD exacerbation and Afib with RVR. CT head was negative for acute findings or bleed. Continue with iv steroids, xopenex, pulmicort, brovana, rocephin and azithromycin. Counselled on smoking cessation. Started on cardizem drip. Continue with lisinopril, digoxin and lasix. Cardiology evaluation. Continue with coumadin. PT evaluation is requested. Fall precautions. Risks and benefits of anticoagulation were discussed with the patient. Will follow up with cardiology recommendations. Will replete and repeat lytes. Fabio Walters MD Hospitalist.
[2018-08-03] MEDS: cefTRIAXone 1 gm 1 GM/100 ML BAG IVPB SCH (17:19)
[2018-08-03] MEDS: Azithromycin 500MG/NS 250ml 500 MG/250 ML BAG IVPB SCH ×2 (18:27→18:53)
[2018-08-03] MEDS: Budesonide 0.5 mg/2 ml Inhal Susp UD IH SCH (19:21)
[2018-08-03] MEDS: Arformoterol 15 mcg/2 ml Inh Sol IH SCH (19:21)
[2018-08-03] MEDS: Levalbuterol 1.25 MG/3 ML Inhal Soln UD IH SCH (19:21)
[2018-08-03] MEDS ORDERED: Albuterol-Ipratrop 3 mg / 0.5 (3 ml) UD IH SCH (20:00)
[2018-08-03] MEDS: MethylPREDNISolone 40 mg Vial IVP SCH (21:25)
[2018-08-03] MEDS ORDERED: Pneumococcal 23-Valent Vaccine IM ONE (21:53)
[2018-08-03 21:54] VITALS: BMI 24.0
[2018-08-03] MEDS ORDERED: Fluticasone-Salmeterol 250-50mcg Diskus IH SCH (22:00)
[2018-08-04] MEDS: diltiaZEM IVPB 100mg in NS 100 ML IV PRN (02:40)
--- NOTE | 2018-08-04 05:38 | CARD ---
APPROVED REPORT Date of service: 08/03/2018 EKG Measurement Heart [id number] <Conclusion> Atrial fibrillation with rapid ventricular response PVCs vs. Roxanne beats Nonspecific T wave abnormality Abnormal ECG
[2018-08-04 07:47] LABS: HEMOGLOBIN 12.2 g/dL (12.0-16.0); LYMPH # 0.6 (1.2-3.4); LYMPH % 9.6 % (22.0-35.0); MEAN CELL VOLUME 87.9 fl (80.0-105.0); MEAN CORPUSCULAR HEMOGLOBIN 28.4 pg (25.0-35.0); MEAN CORPUSCULAR HGB CONC 32.3 g/dl (31.0-37.0); MEAN PLATELET VOLUME 8.7 fl (7.0-11.0); MONO # 0.2 (0.1-0.6); MONO % 3.6 % (1.0-6.0); RBC 4.3 10^6/uL (3.5-6.1); RED CELL DISTRIBUTION WIDTH 14.7 % (11.5-14.5); WHITE BLOOD COUNT 6.7 10^3/uL (4.5-11.0)
[2018-08-04 07:56] LABS: INR 1.58; PROTHROMBIN TIME 17.9 SECONDS (9.4-12.5)
[2018-08-04 08:08] LABS: BLOOD UREA NITROGEN 14 mg/dL (7-21); CALCIUM 9.1 mg/dL (8.4-10.5); GFR NON-AFRICAN AMERICAN > 60
[2018-08-04] MEDS: Budesonide 0.5 mg/2 ml Inhal Susp UD IH SCH ×2 (08:43→21:01)
[2018-08-04] MEDS: Levalbuterol 1.25 MG/3 ML Inhal Soln UD IH SCH ×2 (08:43→21:01)
[2018-08-04] MEDS: Arformoterol 15 mcg/2 ml Inh Sol IH SCH ×2 (08:43→21:01)
[2018-08-04] MEDS: cefTRIAXone 1 gm 1 GM/100 ML BAG IVPB SCH (08:59)
[2018-08-04] MEDS: MethylPREDNISolone 40 mg Vial IVP SCH ×2 (09:00→21:31)
[2018-08-04] MEDS ORDERED: Enoxaparin 60 mg Syringe SC SCH (14:00)
[2018-08-04] MEDS ORDERED: Digoxin 125 mcg (0.125 mg) Tab PO SCH (14:00)
--- NOTE | 2018-08-04 15:42 | CP.PCM.PN ---
<Michael Lopez Anabelle - Last Filed: 08/04/18 15:33> Subjective - Date & Time of Evaluation Date of Evaluation: 08/04/18 Time of Evaluation: 15:33 - Subjective Subjective: Medicine progress note - John PGY - 2 Patient seen and examined at bedside with no acute complaints or new overnight events. Patient states her shortness of breath has improved. Objective - Vital Signs/Intake and Output Vital Signs (last 24 hours): Temp Pulse Resp BP Pulse Ox 97.5 F L 110 H 20 128/80 99 08/04/18 12:00 08/04/18 12:00 08/04/18 12:00 08/04/18 12:00 08/04/18 05:59 Intake and Output: 08/04/18 08/04/18 06:59 18:59 Intake Total 335 Balance 335 - Medications Medications: Current Medications Acetaminophen (Tylenol 325mg Tab) 650 mg PO Q6H PRN PRN Reason: Headache Last Admin: 08/03/18 19:33 Dose: 650 mg Alprazolam (Xanax) 1 mg PO TID [facility]; Protocol Last Admin: 08/04/18 15:17 Dose: 1 mg Arformoterol Tartrate (Brovana) 15 mcg IH [id number] [facility] Last Admin: 08/04/18 08:43 Dose: 15 mcg Atorvastatin Calcium (Lipitor) 10 mg PO HS [facility] Last Admin: 08/03/18 21:25 Dose: 10 mg Budesonide (Pulmicort Respules) 0.5 mg IH [id number] [facility] Last Admin: 08/04/18 08:43 Dose: 0.5 mg Digoxin (Digoxin) 0.125 mg PO 1400 [facility] Last Admin: 08/04/18 15:18 Dose: 0.125 mg Enoxaparin Sodium (Lovenox) 60 mg SC Q12H [facility]; Protocol Last Admin: 08/04/18 15:17 Dose: 60 mg Furosemide (Lasix) 40 mg PO DAILY [facility] Last Admin: 08/04/18 09:00 Dose: 40 mg diltiaZEM IVPB 100mg in NS (Cardizem 100mg In Ns) 100 mls @ 5 mls/hr IV .Q20H PRN PRN Reason: PER MD Last Admin: 08/04/18 02:40 Dose: 5 mls/hr Ceftriaxone Sodium (Rocephin 1 Gram Ivpb) 1 gm in 100 mls @ 100 mls/hr IVPB DAILY [facility]; Protocol Last Admin: 08/04/18 08:59 Dose: 100 mls/hr Doxycycline Hyclate 100 mg/ (Sodium Chloride) 100 mls @ 100 mls/hr IVPB Q12 [facility]; Protocol Last Admin: 08/04/18 08:59 Dose: 100 mls/hr Levalbuterol HCl (Xopenex) 1.25 mg IH Q4 PRN PRN Reason: Shortness of Breath Levalbuterol HCl (Xopenex) 1.25 mg IH [id number] [facility] Last Admin: 08/04/18 08:43 Dose: 1.25 mg Lisinopril (Zestril) 2.5 mg PO DAILY [facility] Last Admin: 08/04/18 09:00 Dose: 2.5 mg Methylprednisolone (Solu-Medrol) 40 mg IVP Q12 [facility] Last Admin: 08/04/18 09:00 Dose: 40 mg Metoprolol Tartrate (Lopressor) 25 mg PO BID [facility] Pantoprazole Sodium (Protonix Ec Tab) 40 mg PO 0600 [facility] Quetiapine Fumarate (Seroquel) 25 mg PO BID [facility]; Protocol Last Admin: 08/04/18 09:01 Dose: 25 mg Sertraline HCl (Zoloft) 100 mg PO Q12 [facility] Last Admin: 08/04/18 09:00 Dose: 100 mg Warfarin Sodium (Coumadin) 5 mg PO 1800 [facility]; Protocol Last Admin: 08/03/18 18:27 Dose: 5 mg - Labs Labs: 08/04/18 07:00 08/04/18 07:00 PT 17.9 SECONDS (9.4-12.5) H 08/04/18 07:00 INR 1.58 08/04/18 07:00 APTT 45.2 Seconds (26.9-38.3) H 08/03/18 12:41 - Constitutional Appears: Well - Head Exam Head Exam: ATRAUMATIC, NORMAL INSPECTION, NORMOCEPHALIC - Eye Exam Eye Exam: EOMI, Normal appearance, PERRL Pupil Exam: NORMAL ACCOMODATION, PERRL - ENT Exam ENT Exam: Mucous Membranes Moist, Normal Exam - Neck Exam Neck Exam: Full ROM, Normal Inspection. absent: Lymphadenopathy - Respiratory Exam Respiratory Exam: Clear to Ausculation Bilateral, NORMAL BREATHING PATTERN - Cardiovascular Exam Cardiovascular Exam: REGULAR RHYTHM, +S1, +S2. absent: Murmur - GI/Abdominal Exam GI & Abdominal Exam: Soft, Normal Bowel Sounds. absent: Tenderness - Extremities Exam Extremities Exam: Full ROM, Normal Capillary Refill, Normal Inspection. absent: Joint Swelling, Pedal Edema - Back Exam Back Exam: NORMAL INSPECTION - Neurological Exam Neurological Exam: Alert, Awake, CN II-XII Intact, Normal Gait, Oriented x3 - Psychiatric Exam Psychiatric exam: Normal Affect, Normal Mood - Skin Skin Exam: Dry, Intact, Normal Color, Warm Assessment and Plan - Assessment and Plan (Free Text) Assessment: Patient is a 72 F with past medical history of paroxysmal atrial fibrillation on coumadin, non ischemic cardiomyopathy, coronary artery disease, and COPD who presents with complaints of shortness of breath as well as weakness and fatigue found to be in COPD exacerbation with rapid atrial fibrillation Plan: COPD exacerbation -Xopenex Donna and PRN -Solumedrol 40 mg q12 -Pulmicort and Brovana -Azithromycin and Rocephin day #2 Atrial Fibrillation -Cardizem drip started -Warfarin 5 mg; patient is fall risk, will reassess on discharge; -Repeat INR; is increasing appropriately -Cardiology consulted Diastolic CHF -Lasix 40 mg daily -Metoprolol on hold (consider changing Lopressor to Toprol XL) Non ischemic cardiomyopathy -Digoxin level -Continue digoxin -Metoprolol on hold for now -Lisinopril Non-obstructive CAD -Continue atorvastatin Hypomagnesemia -Replete with Magnesium sulfate Diet: Heart healthy diet <Fabio Walters - Last Filed: 08/04/18 16:01> Objective - Vital Signs/Intake and Output Vital Signs (last 24 hours): Temp Pulse Resp BP Pulse Ox 97.5 F L 110 H 20 128/80 99 08/04/18 12:00 08/04/18 12:00 08/04/18 12:00 08/04/18 12:00 08/04/18 05:59 Intake and Output: 08/04/18 08/04/18 06:59 18:59 Intake Total 335 Balance 335 - Medications Medications: Current Medications Acetaminophen (Tylenol 325mg Tab) 650 mg PO Q6H PRN PRN Reason: Headache Last Admin: 08/03/18 19:33 Dose: 650 mg Alprazolam (Xanax) 1 mg PO TID [facility]; Protocol Last Admin: 08/04/18 15:17 Dose: 1 mg Arformoterol Tartrate (Brovana) 15 mcg IH [id number] [facility] Last Admin: 08/04/18 08:43 Dose: 15 mcg Atorvastatin Calcium (Lipitor) 10 mg PO HS [facility] Last Admin: 08/03/18 21:25 Dose: 10 mg Budesonide (Pulmicort Respules) 0.5 mg IH [id number] [facility] Last Admin: 08/04/18 08:43 Dose: 0.5 mg Digoxin (Digoxin) 0.125 mg PO 1400 [facility] Last Admin: 08/04/18 15:18 Dose: 0.125 mg Enoxaparin Sodium (Lovenox) 60 mg SC Q12H [facility]; Protocol Last Admin: 08/04/18 15:17 Dose: 60 mg Furosemide (Lasix) 40 mg PO DAILY [facility] Last Admin: 08/04/18 09:00 Dose: 40 mg diltiaZEM IVPB 100mg in NS (Cardizem 100mg In Ns) 100 mls @ 5 mls/hr IV .Q20H PRN PRN Reason: PER MD Last Admin: 08/04/18 02:40 Dose: 5 mls/hr Ceftriaxone Sodium (Rocephin 1 Gram Ivpb) 1 gm in 100 mls @ 100 mls/hr IVPB DAILY [facility]; Protocol Last Admin: 08/04/18 08:59 Dose: 100 mls/hr Doxycycline Hyclate 100 mg/ (Sodium Chloride) 100 mls @ 100 mls/hr IVPB Q12 [facility]; Protocol Last Admin: 08/04/18 08:59 Dose: 100 mls/hr Levalbuterol HCl (Xopenex) 1.25 mg IH Q4 PRN PRN Reason: Shortness of Breath Levalbuterol HCl (Xopenex) 1.25 mg IH [id number] [facility] Last Admin: 08/04/18 08:43 Dose: 1.25 mg Lisinopril (Zestril) 2.5 mg PO DAILY [facility] Last Admin: 08/04/18 09:00 Dose: 2.5 mg Methylprednisolone (Solu-Medrol) 40 mg IVP Q12 [facility] Last Admin: 08/04/18 09:00 Dose: 40 mg Metoprolol Tartrate (Lopressor) 25 mg PO BID [facility] Pantoprazole Sodium (Protonix Ec Tab) 40 mg PO 0600 [facility] Quetiapine Fumarate (Seroquel) 25 mg PO BID [facility]; Protocol Last Admin: 08/04/18 09:01 Dose: 25 mg Sertraline HCl (Zoloft) 100 mg PO Q12 [facility] Last Admin: 08/04/18 09:00 Dose: 100 mg Warfarin Sodium (Coumadin) 5 mg PO 1800 [facility]; Protocol Last Admin: 08/03/18 18:27 Dose: 5 mg - Labs Labs: 08/04/18 07:00 08/04/18 07:00 PT 17.9 SECONDS (9.4-12.5) H 08/04/18 07:00 INR 1.58 08/04/18 07:00 APTT 45.2 Seconds (26.9-38.3) H 08/03/18 12:41 Attending/Attestation - Attestation I have personally seen and examined this patient.: Yes I have fully participated in the care of the patient.: Yes I have reviewed all pertinent clinical information, including history, physical exam and plan: Yes Notes (Text): 08/04/18 15:58 72 year old female with past medical history of paroxysmal afib on coumadin, diastolic CHF, CAD, and COPD who presents with complaint of weakness, fatigue, shortness of breath and falls at home. Admitted for COPD exacerbation and Afib with RVR. CT head was negative for acute findings or bleed. Continue with iv steroids, xopenex, pulmicort, brovana, rocephin and doxycycline (patient reports allergy to azithromycin). Continue with cardizem drip, lisinopril, digoxin, metoprolol and lasix. Continue with coumadin and started on lovenox for subtherapeutic INR. Risks and benefits of anticoagulation were discussed with the patient. Pending PT evaluation. Fall precautions. Counselled on smoking cessation. Fabio Walters MD Hospitalist.
[2018-08-04] MEDS: Levalbuterol 1.25 MG/3 ML Inhal Soln UD IH PRN (16:53)
[2018-08-05] MEDS ORDERED: diltiaZEM IVPB 100mg in NS 100 ML IV PRN ×2 (00:01→00:05)
--- NOTE | 2018-08-05 00:10 | CON ---
DATE: 08/04/2018 CARDIOLOGY CONSULTATION REASON FOR CONSULTATION: Rapid atrial fibrillation. This consult is being done covering for Dr. Mendez. HISTORY OF PRESENT ILLNESS: The patient is a 72-year-old female who has a history of paroxysmal atrial fibrillation, on Coumadin therapy; history of cardiomyopathy; and chronic obstructive lung disease, presented because of weakness, easy fatigability and shortness of breath as well as recent multiple falls. The patient denies having major O2 at home and she still smokes. The patient denies any retrosternal chest pain. Her most recent MUGA scan done in August of last year revealed normal ejection fraction with akinetic dilated right atrium suggestive of atrial fibrillation. The patient denies any history of coronary artery disease. Her most recent cardiac cath was in June of 2016, revealed nonobstructive coronary artery disease limited to the very distal LAD, ejection fraction at that time was measured at 35% to 40%. The patient was diagnosed with non-ischemic cardiomyopathy at that time. SOCIAL HISTORY: The patient is a smoker. MEDICATIONS: Brovana 15 mcg inhalation every 12 hours, Cardizem infusion at 5 mg per hour, Coumadin 5 mg daily, dioxin 0.125 mg daily, doxycycline 100 mg intravenously every 12 hours, Lasix 40 mg p.o. once a day, Lipitor 10 mg once a day, Lopressor 25 mg twice a day, Protonix 40 mg once a day, Seroquel 25 mg twice a day, IV Rocephin 1 g daily, Solu-Medrol 40 mg intravenously every 12 hours, Xopenex inhaler, and Zestril 2.5 mg daily. PAST MEDICAL HISTORY: Chronic obstructive lung disease, right-sided heart failure, and atrial fibrillation. PHYSICAL EXAMINATION GENERAL: The patient is an elderly female, who is mildly tachypneic. VITAL SIGNS: Blood pressure 128/80, heart rate of 110, temperature 97.5., and respirations 20. HEENT: Normocephalic. CHEST: Diffuse bilateral rhonchi. HEART: S1 and S2, regular. ABDOMEN: Soft. EXTREMITIES: No pedal edema. LABORATORY DATA: EKG revealed atrial fibrillation at the rate of 149, PVCs versus aberrancy, nonspecific Q-wave abnormality. Cardiac catheterization in June [address] Mendez revealed nonobstructive coronary artery disease limited to the various LVP, diffusely decreased right circulation. No local flow limiting stenosis. Moderately decreased left ventricular function with ejection fraction measured in the range of 35% to 40%. Echocardiograph study performed in January of last year revealed normal left ventricular wall size, thickness and normal left ventricular ejection fraction. The right ventricular systolic function is mildly reduced. Mild mitral insufficiency. Today's SMA-7 is within normal limits, except for glucose 127 and creatinine 0.5. ProBNP is 2260. Today's hemoglobin and hematocrit, white count and platelet count are within normal limits. Yesterday's white count is 12.1. Today's INR is 1.58. Head CT scan without contrast; no acute intracranial abnormalities, mild chronic microangiopathic changes and mild age-related global parenchymal volume loss. Lower extremity ultrasound performed in February of last year revealed the relatively normal MARLEY and PVR examination at rest. Chest x-ray revealed borderline cardiomegaly and prominent bronchovascular markings. ASSESSMENT: 1. Assess the patient for chronic obstructive lung disease. 2. Right-sided heart failure. 3. Recurrent falls. 4. Chronic atrial fibrillation. RECOMMENDATIONS: Continue current Cardizem infusion at 5 mg per hour, Coumadin 5 mg daily, digoxin 0.125 mg daily, IV doxycycline and IV Rocephin, continue Solu-Medrol 40 mg intravenously every 12 hours, continue Zestril 2.5 mg daily, start therapeutic subcutaneous Lovenox until a therapeutic INR is achieved. Luan Gleason MD
[2018-08-05] MEDS: Levalbuterol 1.25 MG/3 ML Inhal Soln UD IH SCH ×4 (01:58→14:32)
[2018-08-05] MEDS ORDERED: Pantoprazole 40 mg EC Tab PO SCH (06:00)
[2018-08-05 06:20] VITALS: RESP 20
[2018-08-05 06:34] LABS: INR 2.33; PROTHROMBIN TIME 26.3 SECONDS (9.4-12.5)
[2018-08-05 06:39] LABS: HEMOGLOBIN 12.2 g/dL (12.0-16.0); LYMPH # 0.9 (1.2-3.4); LYMPH % 6.4 % (22.0-35.0); MEAN CELL VOLUME 88.3 fl (80.0-105.0); MEAN CORPUSCULAR HEMOGLOBIN 28.5 pg (25.0-35.0); MEAN CORPUSCULAR HGB CONC 32.3 g/dl (31.0-37.0); MEAN PLATELET VOLUME 8.8 fl (7.0-11.0); MONO # 0.5 (0.1-0.6); MONO % 3.3 % (1.0-6.0); PLATELET COUNT 300 10^3/uL (120.0-450.0); RBC 4.28 10^6/uL (3.5-6.1); RED CELL DISTRIBUTION WIDTH 14.6 % (11.5-14.5); WHITE BLOOD COUNT 14.1 10^3/uL (4.5-11.0)
[2018-08-05 06:50] LABS: BLOOD UREA NITROGEN 28 mg/dL (7-21); GFR NON-AFRICAN AMERICAN > 60
[2018-08-05 06:51] LABS: CALCIUM 9.5 mg/dL (8.4-10.5)
[2018-08-05] MEDS: Budesonide 0.5 mg/2 ml Inhal Susp UD IH SCH (09:04)
[2018-08-05] MEDS: Arformoterol 15 mcg/2 ml Inh Sol IH SCH (09:04)
[2018-08-05] MEDS: cefTRIAXone 1 gm 1 GM/100 ML BAG IVPB SCH (09:09)
[2018-08-05] MEDS: MethylPREDNISolone 40 mg Vial IVP SCH (09:11)
[2018-08-05 09:15] LABS: LYMPHOCYTE 5 % (22.0-35.0); MONOCYTE 3 % (1.0-6.0); NEUTROPHIL 92 % (50.0-70.0); PLATELET ESTIMATE NORMAL (NORMAL)
[2018-08-05] MEDS: Levalbuterol 1.25 MG/3 ML Inhal Soln UD IH PRN ×2 (11:43→14:32)
[2018-08-05] MEDS ORDERED: Digoxin 500 mcg/2ml (0.5 mg/2ml) Inj IVP ONE ×2 (12:30→17:00)
--- NOTE | 2018-08-05 12:50 | CP.PCM.APN ---
Subjective - Date & Time of Evaluation Date of Evaluation: 08/05/18 Time of Evaluation: 12:20 - Subjective Subjective: pt seen and examined a KHARI matos reports pt was smoking in the bed overnight - noncomplaince Review of Systems - Constitutional Constitutional: As Per HPI Objective - Vital Signs/Intake and Output Vital Signs (last 24 hours): Temp Pulse Resp BP Pulse Ox 98.2 F 116 H 20 146/84 100 08/05/18 11:54 08/05/18 11:54 08/05/18 11:54 08/05/18 11:54 08/05/18 06:00 Intake and Output: 08/05/18 08/05/18 06:59 18:59 Intake Total 1602 Output Total 100 Balance 1502 - Medications Medications: Current Medications Acetaminophen (Tylenol 325mg Tab) 650 mg PO Q6H PRN PRN Reason: Headache Last Admin: 08/04/18 18:41 Dose: 650 mg Alprazolam (Xanax) 1 mg PO TID [facility]; Protocol Last Admin: 08/05/18 09:09 Dose: 1 mg Arformoterol Tartrate (Brovana) 15 mcg IH [id number] [facility] Last Admin: 08/05/18 09:04 Dose: 15 mcg Atorvastatin Calcium (Lipitor) 10 mg PO HS [facility] Last Admin: 08/04/18 21:30 Dose: 10 mg Budesonide (Pulmicort Respules) 0.5 mg IH [id number] [facility] Last Admin: 08/05/18 09:04 Dose: 0.5 mg Digoxin (Digoxin) 0.125 mg PO 1400 NORA Digoxin (Lanoxin) 0.25 mg IVP ONCE ONE Stop: 08/05/18 17:01 Diltiazem HCl (Cardizem) 30 mg PO TID [facility] Furosemide (Lasix) 40 mg PO DAILY [facility] Last Admin: 08/05/18 09:10 Dose: 40 mg Ceftriaxone Sodium (Rocephin 1 Gram Ivpb) 1 gm in 100 mls @ 100 mls/hr IVPB DAILY [facility]; Protocol Last Admin: 08/05/18 09:09 Dose: 100 mls/hr Doxycycline Hyclate 100 mg/ (Sodium Chloride) 100 mls @ 100 mls/hr IVPB Q12 [facility]; Protocol Last Admin: 08/05/18 10:31 Dose: 100 mls/hr diltiaZEM IVPB 100mg in NS (Cardizem 100mg In Ns) 100 mls @ 5 mls/hr IV .Q20H PRN PRN Reason: PER MD Stop: 08/05/18 13:30 Last Admin: 08/05/18 02:42 Dose: 5 mls/hr Ipratropium [place] (Atrovent) 0.5 mg IH [id number] [facility] Levalbuterol HCl (Xopenex) 1.25 mg IH Q4 PRN PRN Reason: Shortness of Breath Last Admin: 08/05/18 11:43 Dose: 1.25 mg Levalbuterol HCl (Xopenex) 1.25 mg IH [id number] [facility] Last Admin: 08/05/18 09:04 Dose: 1.25 mg Lisinopril (Zestril) 2.5 mg PO DAILY [facility] Last Admin: 08/05/18 09:10 Dose: 2.5 mg Methylprednisolone (Solu-Medrol) 40 mg IVP DAILY [facility] Metoprolol Tartrate (Lopressor) 25 mg PO BID [facility] Last Admin: 08/05/18 10:34 Dose: 25 mg Nicotine (Nicoderm Cq) 1 patch TD DAILY [facility] Last Admin: 08/05/18 09:11 Dose: 1 patch Pantoprazole Sodium (Protonix Ec Tab) 40 mg PO 0600 [facility] Last Admin: 08/05/18 05:10 Dose: 40 mg Quetiapine Fumarate (Seroquel) 25 mg PO BID [facility]; Protocol Last Admin: 08/05/18 09:10 Dose: 25 mg Sertraline HCl (Zoloft) 100 mg PO Q12 [facility] Last Admin: 08/05/18 09:11 Dose: 100 mg Warfarin Sodium (Coumadin) 5 mg PO 1800 [facility]; Protocol Last Admin: 08/04/18 17:54 Dose: 5 mg - Labs Labs: 08/05/18 06:00 08/05/18 06:00 PT 26.3 SECONDS (9.4-12.5) H 08/05/18 06:00 INR 2.33 08/05/18 06:00 APTT 45.2 Seconds (26.9-38.3) H 08/03/18 12:41 - Constitutional Appears: Non-toxic, No Acute Distress - Head Exam Head Exam: ATRAUMATIC - Eye Exam Eye Exam: Normal appearance - ENT Exam ENT Exam: Mucous Membranes Moist - Respiratory Exam Respiratory Exam: Decreased Breath Sounds - Cardiovascular Exam Cardiovascular Exam: Irregular Rhythm, +S1, +S2 Additional comments: atrial fibrillation - Extremities Exam Extremities Exam: Normal Inspection - Neurological Exam Additional comments: LEE - Skin Skin Exam: Dry, Intact Assessment and Plan - Assessment and Plan (Free Text) Plan: ITS Impressions Chest X-Ray 08/03/18 11:51 IMPRESSION: No active pulmonary disease. COPD. Head CT 08/03/18 11:52 IMPRESSION: No acute intracranial abnormality. Mild chronic microangiopathic changes and mild age-related global parenchymal volume loss. A/P 72 yr old female with pmh sig for Afib ( chronic), smoker, copd, right sided chf who presented to the ED with c/o SOB, weakenss and recent falls. Pt was found in rapid afib, Pt with cardio consultation. Pt maintained on IV cardizem. pt cxr showing copd, pt on dual antibiotic regimen, pt ekg with afib with RVR , pt remains in AFib on monitor. Will continue to follow , smoking cessation encouraged. pt already with nicotine patch will follow clinical course BPCI/TIC - BPCIA/TIC Educated pt/family on BPCIA/CIR/Med to Bed Programs: N/A Flyers given, including [facility] Beneficiary letter: N/A Pt/family verbalized understanding & agreed to program: N/A
[2018-08-05 13:17] VITALS: PULSE 116
[2018-08-05] MEDS ORDERED: Ipratropium 0.02% Inhal Soln (0.5 mg/2.5 ml) UD IH SCH (14:00)
--- NOTE | 2018-08-05 14:18 | CP.PCM.PN ---
<Robert Miller - Last Filed: 08/05/18 14:14> Subjective - Date & Time of Evaluation Date of Evaluation: 08/05/18 Time of Evaluation: 14:14 - Subjective Subjective: Robert Miller, PGY-1, Internal Medicine Progress Note for Dr. Sparrow Patient seen and evaluated at bedside. Patient smoked cigarettes in her room overnight. Patient this morning complains of no symptoms including fever, chills, headache, chest pain, shortness of breath, nausea, vomiting, constipation, diarrhea, dysuria, hematuria. 12-point ROS was unremarkable except for what was mentioned above. Objective - Vital Signs/Intake and Output Vital Signs (last 24 hours): Temp Pulse Resp BP Pulse Ox 98.2 F 113 H 20 146/84 100 08/05/18 11:54 08/05/18 13:15 08/05/18 11:54 08/05/18 13:15 08/05/18 06:00 Intake and Output: 08/05/18 08/05/18 06:59 18:59 Intake Total 1602 Output Total 100 Balance 1502 - Medications Medications: Current Medications Acetaminophen (Tylenol 325mg Tab) 650 mg PO Q6H PRN PRN Reason: Headache Last Admin: 08/04/18 18:41 Dose: 650 mg Alprazolam (Xanax) 1 mg PO TID [facility]; Protocol Last Admin: 08/05/18 13:15 Dose: 1 mg Arformoterol Tartrate (Brovana) 15 mcg IH [id number] [facility] Last Admin: 08/05/18 09:04 Dose: 15 mcg Atorvastatin Calcium (Lipitor) 10 mg PO HS [facility] Last Admin: 08/04/18 21:30 Dose: 10 mg Budesonide (Pulmicort Respules) 0.5 mg IH [id number] [facility] Last Admin: 08/05/18 09:04 Dose: 0.5 mg Digoxin (Digoxin) 0.125 mg PO 1400 NORA Digoxin (Lanoxin) 0.25 mg IVP ONCE ONE Stop: 08/05/18 17:01 Diltiazem HCl (Cardizem) 30 mg PO TID [facility] Furosemide (Lasix) 40 mg PO DAILY [facility] Last Admin: 08/05/18 09:10 Dose: 40 mg Ceftriaxone Sodium (Rocephin 1 Gram Ivpb) 1 gm in 100 mls @ 100 mls/hr IVPB DAILY [facility]; Protocol Last Admin: 08/05/18 09:09 Dose: 100 mls/hr Doxycycline Hyclate 100 mg/ (Sodium Chloride) 100 mls @ 100 mls/hr IVPB Q12 [facility]; Protocol Last Admin: 08/05/18 10:31 Dose: 100 mls/hr Ipratropium [place] (Atrovent) 0.5 mg IH [id number] [facility] Levalbuterol HCl (Xopenex) 1.25 mg IH Q4 PRN PRN Reason: Shortness of Breath Last Admin: 08/05/18 11:43 Dose: 1.25 mg Levalbuterol HCl (Xopenex) 1.25 mg IH [id number] [facility] Last Admin: 08/05/18 09:04 Dose: 1.25 mg Lisinopril (Zestril) 2.5 mg PO DAILY [facility] Last Admin: 08/05/18 09:10 Dose: 2.5 mg Methylprednisolone (Solu-Medrol) 40 mg IVP DAILY [facility] Metoprolol Tartrate (Lopressor) 25 mg PO BID [facility] Last Admin: 08/05/18 10:34 Dose: 25 mg Nicotine (Nicoderm Cq) 1 patch TD DAILY [facility] Last Admin: 08/05/18 09:11 Dose: 1 patch Pantoprazole Sodium (Protonix Ec Tab) 40 mg PO 0600 [facility] Last Admin: 08/05/18 05:10 Dose: 40 mg Quetiapine Fumarate (Seroquel) 25 mg PO BID [facility]; Protocol Last Admin: 08/05/18 09:10 Dose: 25 mg Sertraline HCl (Zoloft) 100 mg PO Q12 [facility] Last Admin: 08/05/18 09:11 Dose: 100 mg Warfarin Sodium (Coumadin) 5 mg PO 1800 [facility]; Protocol Last Admin: 08/04/18 17:54 Dose: 5 mg - Labs Labs: 08/05/18 06:00 08/05/18 06:00 PT 26.3 SECONDS (9.4-12.5) H 08/05/18 06:00 INR 2.33 08/05/18 06:00 APTT 45.2 Seconds (26.9-38.3) H 08/03/18 12:41 - Constitutional Appears: Well, Non-toxic, No Acute Distress - Head Exam Head Exam: ATRAUMATIC, NORMAL INSPECTION, NORMOCEPHALIC - Eye Exam Eye Exam: EOMI, Normal appearance, PERRL - ENT Exam ENT Exam: Mucous Membranes Moist - Respiratory Exam Respiratory Exam: Wheezes, NORMAL BREATHING PATTERN - Cardiovascular Exam Cardiovascular Exam: Irregular Rhythm, +S1, +S2. absent: Clicks, Gallop, Rubs - GI/Abdominal Exam GI & Abdominal Exam: Soft, Normal Bowel Sounds. absent: Distended, Firm, Guarding, Tenderness - Extremities Exam Extremities Exam: Full ROM, Normal Capillary Refill, Normal Inspection - Neurological Exam Neurological Exam: Alert, Awake, CN II-XII Intact - Psychiatric Exam Psychiatric exam: Normal Affect, Normal Mood - Skin Skin Exam: Dry, Intact, Normal Color Assessment and Plan - Assessment and Plan (Free Text) Assessment: 72 year old female with past medical history of paroxysmal atrial fibrillation on coumadin, non-ischemic cardiomyopathy, coronary artery disease, COPD presented with shortness of breath, fatigue, weakness. He was found to be in atrial fibrillation and had COPD exacerbation. Plan: COPD exacerbation -Reduced solumedrol to 40 mg daily -Continue with xopenex Q6 and Q4PRN for shortness of breath -Started atrovent -Continue with pulmicort and brovana -Continue with doxycycline and rocephin day 3 Atrial fibrillation -Switched to cardizem 30 mg TID -Continue with warfarin 5 mg -INR is therapeutic today. Continue to trend INR Diastolic CHF -Continue with lopressor -Continue with lasix 40 mg dialy Nonischemic cardiomyopathy -Continue with lopressor, lisinopril and digoxin Nonobstructive CAD -Continue with atorvastatin Depression -Continue with zoloft and seroquel Anxiety -Continue with xanax 1 mg TID Tobacco abuse -Continue with nicotine patch -Smoking cessation advised GI prophylaxis: protonix DVT prophylaxis: coumadin Patient plan discussed with Dr. Sparrow. <Mak Sparrow - Last Filed: 08/06/18 16:37> Objective - Vital Signs/Intake and Output Vital Signs (last 24 hours): Temp Pulse Resp BP Pulse Ox 98.3 F 109 H 20 129/89 97 08/05/18 17:30 08/05/18 17:30 08/05/18 17:30 08/05/18 17:30 08/05/18 16:36 - Labs Labs: 08/05/18 06:00 08/05/18 06:00 PT 26.3 SECONDS (9.4-12.5) H 08/05/18 06:00 INR 2.33 08/05/18 06:00 APTT 45.2 Seconds (26.9-38.3) H 08/03/18 12:41 Attending/Attestation - Attestation I have personally seen and examined this patient.: Yes I have fully participated in the care of the patient.: Yes I have reviewed all pertinent clinical information, including history, physical exam and plan: Yes Notes (Text): 08/06/18 16:37 Medical record note made by the resident after discussion with my direction and input after the patient was personally seen and examined by me. I have reviewed the chart and agree that the record accurately reflects by personal performance of the history, physical exam, data review, and medical decision-making, in the course for the patient. I have also personally directed the plan of care.
[2018-08-05 16:39] VITALS: BP 129/89; PULSE 109; TEMP 98.3; O2SAT 97
--- NOTE | 2018-08-05 17:47 | PN ---
DATE: 08/05/2018 REASON FOR THE CONSULTATION AND FOLLOWUP: AFib with rapid ventricular rate, cardiomyopathy, nonobstructive coronary artery disease and COPD exacerbation. SUBJECTIVE: The patient denies any chest pain, shortness of breath,or any palpitations. Still feel dizzy. OBJECTIVE: GENERAL: Not in apparent distress. VITAL SIGNS: Temperature afebrile. Heart rate 116 and blood pressure 146/84. HEENT: PERRLA. Extraocular muscles intact. NECK: Supple. No carotid bruits. No thyromegaly. CHEST: Clear to auscultation. HEART: S1 and S2, regular. ABDOMEN: Soft. EXTREMITIES: Clubbing and cyanosis negative. LABORATORY DATA: Blood workup; WBC 14.1, hemoglobin 12, hematocrit 37.8 and platelet count 300. Chemistry shows sodium 130, potassium 4, chloride 95, carbon dioxide 29, anion gap of 12, BUN 20, creatinine 0.7 and TSH 0.61. IMPRESSION: A 72-year-old female with past medical history significant for atrial fibrillation, cardiomyopathy, chronic obstructive pulmonary disease, presented with a weakness easy fatigability and shortness of breath and atrial fibrillation with rapid ventricular rate. The patient was using home O2 oxygen, most recent MUGA scan, the patient had done in last year revealed ejection fraction. The patient had MUGA 09/17/2017 that shows ejection fraction 58% prior to that the patient had cardiac catheterization done dated on 06/29/2016 that shows nonobstructive coronary artery disease distal left anterior descending, diffusely there is no focal flow limiting stenosis, ejection fraction 35%-40%. EDP was in the range of 20. No gradient across the aortic valve noted. Prior to the patient had a stress test 06/12/2016 that shows ejection fraction 37% abnormal that stress test. The patient had a cardiac catheterization. Recent echo on 01/25/2018 done, read by Dr. Gleason that shows left ventricular function is within normal limits, right ventricular function is mildly reduced, mild to moderate tricuspid regurgitation, mild mitral regurgitation, aortic valve is not well visualized. Admitted with acute exacerbation of chronic obstructive pulmonary disease, shortness of breath and atrial fibrillation with rapid ventricular rate. The patient was at home digoxin and Coumadin for atrial fibrillation as well as metoprolol and lisinopril. RECOMMENDATION: We will continue Coumadin. Continue digoxin and we will give the metoprolol and we will discontinue kristen-inhibitors or lower the dose and start Cardizem to control the heart rate. We will follow with you. Thank you Dr. Mcfadden for providing us the opportunity in taking care of the patient, Demian Alston. We will also get digoxin level, we are going to get n extra dose of digoxin. We will follow with you. We will start Cardizem p.o. 30 mg three times a day first dose now and we will discontinue Cardizem one hour after the first dose. Mak Mendez MD
--- NOTE | 2018-08-05 20:38 | CP.PCM.PN ---
<Nathanael Travis - Last Filed: 08/05/18 20:35> Subjective - Date & Time of Evaluation Date of Evaluation: 08/05/18 Time of Evaluation: 18:00 - Subjective Subjective: Nathanael Travis DO, PGY-1 Hospitalist Progress Note for Dr. Sparrow Patient was seen at request of nursing staff, stating patient desires to sign out against medical advice. Objective - Vital Signs/Intake and Output Vital Signs (last 24 hours): Temp Pulse Resp BP Pulse Ox 98.3 F 109 H 20 129/89 97 08/05/18 17:30 08/05/18 17:30 08/05/18 17:30 08/05/18 17:30 08/05/18 16:36 - Labs Labs: 08/05/18 06:00 08/05/18 06:00 PT 26.3 SECONDS (9.4-12.5) H 08/05/18 06:00 INR 2.33 08/05/18 06:00 APTT 45.2 Seconds (26.9-38.3) H 08/03/18 12:41 - Head Exam Additional comments: in no acute respiratory distress, on room air, patient expressing wishes to leave AMA Assessment and Plan - Assessment and Plan (Free Text) Assessment: Patient was informed of the risks of signing out AMA including: worsening of known or unknown conditions increased morbidity/mortality permanent disability worsening respiratory failure Patient continued to request signing out AMA after these risks were explained Patient signed appropriate paperwork and patient's attending physician was informed <Mak Sparrow - Last Filed: 08/06/18 16:35> Objective - Vital Signs/Intake and Output Vital Signs (last 24 hours): Temp Pulse Resp BP Pulse Ox 98.3 F 109 H 20 129/89 97 08/05/18 17:30 08/05/18 17:30 08/05/18 17:30 08/05/18 17:30 08/05/18 16:36 - Labs Labs: 08/05/18 06:00 08/05/18 06:00 PT 26.3 SECONDS (9.4-12.5) H 08/05/18 06:00 INR 2.33 08/05/18 06:00 APTT 45.2 Seconds (26.9-38.3) H 08/03/18 12:41 Attending/Attestation - Attestation I have personally seen and examined this patient.: Yes I have fully participated in the care of the patient.: Yes I have reviewed all pertinent clinical information, including history, physical exam and plan: Yes
--- NOTE | 2018-08-05 21:53 | CP.PCM.DIS ---
<Robert Miller - Last Filed: 08/05/18 21:42> Provider - Provider Date of Admission: 08/03/18 13:53 Attending physician: Mak Sparrow MD Consults: 08/03/18 15:34 Cardiology Consult Routine Comment: Consulting Provider: Mak Mendez Consulting Physician: Mak Mendez Reason for Consult: atrial fibrillation with RVR 08/03/18 21:53 Case Management Referral Routine Comment: NEEDS ASSISTANCE AT HOME Physician Instructions: Reason For Exam: EVALUATION Reason for Referral: Long Term Acute Care Registered Nurse Eval Inpatient PULL OUT OPERATOR Core Measures Referral Routine Comment: CHF,COPD EXACERBATION Physician Instructions: Reason For Exam: EVALUATION Nursing Referral for Wound Care Routine Comment: MULTIPLE BRUISING FROM FALLS Physician Instructions: Reason For Exam: EVALUATION Transition In Care/Readmission Reduction Routine Comment: Physician Instructions: Reason For Exam: EVALUATION 08/03/18 21:57 Social Work Referral Routine Comment: NEEDS ASSISTANCE AT HOME Physician Instructions: Reason For Exam: EVALUATION Time Spent in preparation of Discharge (in minutes): 60 Hospital Course - Lab Results Lab Results: Micro Results 08/03/18 14:00 Urine,Clean Catch Urine Culture - Final No Growth (<1,000 CFU/ML) Most Recent Lab Values WBC 14.1 10^3/uL (4.5-11.0) H D 08/05/18 06:00 RBC 4.28 10^6/uL (3.5-6.1) 08/05/18 06:00 Hgb 12.2 g/dL (12.0-16.0) 08/05/18 06:00 Hct 37.8 % (36.0-48.0) 08/05/18 06:00 MCV 88.3 fl (80.0-105.0) 08/05/18 06:00 MCH 28.5 pg (25.0-35.0) 08/05/18 06:00 MCHC 32.3 g/dl (31.0-37.0) 08/05/18 06:00 RDW 14.6 % (11.5-14.5) H 08/05/18 06:00 Plt Count 300 10^3/uL (120.0-450.0) 08/05/18 06:00 MPV 8.8 fl (7.0-11.0) 08/05/18 06:00 Neut % (Auto) 90.3 % (50.0-68.0) H 08/05/18 06:00 Lymph % (Auto) 6.4 % (22.0-35.0) L 08/05/18 06:00 [place] % (Auto) 3.3 % (1.0-6.0) 08/05/18 06:00 Eos % (Auto) 0.0 % (1.5-5.0) L 08/05/18 06:00 Baso % (Auto) 0.0 % (0.0-3.0) 08/05/18 06:00 Lymph # (Auto) 0.9 (1.2-3.4) L 08/05/18 06:00 [place] # (Auto) 0.5 (0.1-0.6) 08/05/18 06:00 Eos # (Auto) 0.0 (0.0-0.7) 08/05/18 06:00 Baso # (Auto) 0.00 K/mm3 (0.0-2.0) 08/05/18 06:00 Absolute Neuts (auto) 12.71 (1.4-6.5) H 08/05/18 06:00 Neutrophils % (Manual) 92 % (50.0-70.0) H 08/05/18 06:00 Lymphocytes % (Manual) 5 % (22.0-35.0) L 08/05/18 06:00 Monocytes % (Manual) 3 % (1.0-6.0) 08/05/18 06:00 Platelet Evaluation Normal (NORMAL) 08/05/18 06:00 PT 26.3 SECONDS (9.4-12.5) H 08/05/18 06:00 INR 2.33 08/05/18 06:00 APTT 45.2 Seconds (26.9-38.3) H 08/03/18 12:41 pO2 46 mm/Hg (30-55) 08/03/18 00:12 VBG pH 7.41 (7.32-7.43) 08/03/18 00:12 VBG pCO2 34.0 (40-60) L 08/03/18 00:12 VBG HCO3 21.6 mmol/l (21-28) 08/03/18 00:12 VBG Total CO2 22.6 mmol.L (22-28) 08/03/18 00:12 VBG O2 Sat (Calc) 86.1 % (40-65) H 08/03/18 00:12 VBG Base Excess -2.4 mmol/L (0.0-2.0) L 08/03/18 00:12 VBG Potassium 3.0 mmol/L (3.6-5.2) L 08/03/18 00:12 Sodium 135.0 mmol/L (132-148) 08/03/18 00:12 Chloride 108.0 mmol/L (98-107) H 08/03/18 00:12 Glucose 112 mg/dl (65-105) H 08/03/18 00:12 Lactate 1.4 mmol/L (0.7-2.1) 08/03/18 00:12 FiO2 21.0 % 08/03/18 00:12 Sodium 132 mmol/L (132-148) 08/05/18 06:00 Potassium 4.8 mmol/L (3.6-5.0) 08/05/18 06:00 Chloride 95 mmol/L (98-107) L 08/05/18 06:00 Carbon Dioxide 29 mmol/L (21-33) 08/05/18 06:00 Anion Gap 12 (10-20) 08/05/18 06:00 BUN 28 mg/dL (7-21) H 08/05/18 06:00 Creatinine 0.7 mg/dl (0.7-1.2) 08/05/18 06:00 Est GFR ( Amer) > 60 08/05/18 06:00 Est GFR (Non-Af Amer) > 60 08/05/18 06:00 Random Glucose 139 mg/dL (70-110) H 08/05/18 06:00 Calcium 9.5 mg/dL (8.4-10.5) 08/05/18 06:00 Phosphorus 4.6 mg/dL (2.5-4.5) H 08/05/18 06:00 Magnesium 1.8 mg/dL (1.7-2.2) 08/05/18 06:00 Total Bilirubin 0.7 mg/dL (0.2-1.3) 08/03/18 12:41 AST 31 U/L (14-36) 08/03/18 12:41 ALT 28 U/L (7-56) 08/03/18 12:41 Alkaline Phosphatase 62 U/L (38-126) 08/03/18 12:41 Lactate Dehydrogenase 472 U/L (333-699) 08/03/18 12:41 Total Creatine Kinase 72 U/L (35-230) 08/03/18 12:41 Troponin I < 0.01 ng/mL 08/03/18 12:41 NT-Pro-B Natriuret Pep 2260 pg/mL (0-450) H 08/03/18 12:41 Total Protein 6.6 g/dL (5.8-8.3) 08/03/18 12:41 Albumin 3.9 g/dL (3.0-4.8) 08/03/18 12:41 Globulin 2.7 gm/dL 08/03/18 12:41 Albumin/Globulin Ratio 1.5 (1.1-1.8) 08/03/18 12:41 TSH 3rd Generation 0.61 mIU/mL (0.46-4.68) 08/05/18 06:00 Venous Blood Potassium 3.0 mmol/L (3.6-5.2) L 08/03/18 00:12 Urine Color Yellow (YELLOW) 08/03/18 12:40 Urine Appearance Clear (CLEAR) 08/03/18 12:40 Urine pH 6.0 (4.7-8.0) 08/03/18 12:40 Ur Specific [place] <= 1.005 (1.005-1.035) 08/03/18 12:40 Urine Protein Negative mg/dL (<30 mg/dL) 08/03/18 12:40 Urine Glucose (UA) Negative mg/dL (NEGATIVE) 08/03/18 12:40 Urine Ketones Negative mg/dL (NEGATIVE) 08/03/18 12:40 Urine Blood Negative (NEGATIVE) 08/03/18 12:40 Urine Nitrate Negative (NEGATIVE) 08/03/18 12:40 Urine Bilirubin Negative (NEGATIVE) 08/03/18 12:40 Urine Urobilinogen 0.2 E.U./dL (<1 E.U./dL) 08/03/18 12:40 Ur Leukocyte Esterase Trace Moo/uL (NEGATIVE) H 08/03/18 12:40 Urine RBC 0 - 2 /hpf (0-2) 08/03/18 12:40 Urine WBC 0 - 2 /hpf (0-6) 08/03/18 12:40 Ur Epithelial Cells 0 - 2 /hpf (0-5) 08/03/18 12:40 Urine Bacteria Trace /hpf (NONE) 08/03/18 12:40 Digoxin 0.6 ng/mL (0.8-2.0) L 08/03/18 12:41 Alcohol, Quantitative < 10 mg/dL (0-10) 08/03/18 12:41 - Hospital Course Hospital Course: Robert Miller, PGY-1, Internal Medicine Discharge Summary for Dr. Sparrow 72 year old female with past medical history of paroxysmal atrial fibrillation on coumain non ischemic cardiomyopathy, coronary artery disease, and COPD not on home O2 presented with shortness of breath, weakness and fatigue. In addition, she was status post multiple falls a few weeks ago. Her shortness of breath was usually controlled with ventolin and advair, but her inhalers were not relieving her symptoms and decided to come to the emergency department. Upon examination on admission, wheezes were noted and patient was thought to have COPD exacerbation. Chest X ray showed no acute findings. Head CT showed no acute intracranial findings and showed chronic microangiopathic changes. Patient was started on xopenex scheduled and PRN, solumedrol 40 BID, pulmicort, brovana, azithromycin, and rocephin. Patient was also found to be in atrial fibrillation with RVR on admission. Patient was initially started on cardizem drip and warfarin was increased to 5 mg as INR was subtherapeutic. The rest of her home medications were restarted. Subsequently, patient's heart rate improved the next day to the 100s from 150s. Cardizem drip was stopped today and started on PO cardizem. Patient's INR was found to be therapeutic today, as well. Patient's respiratory symptoms improved but had not resolved. Atrovent was added to patient's regimen for COPD today. Solumedrol was reduced to 40 mg daily today. Plan was for patient to go to subacute rehabilitation after this admission. Patient asked to leave AMA today. She was told of the risks and benefits of leaving as per resident recreational therapy technician this evening. Patient was told to return to the emergency department if she had any new or concerning symptoms. This is a brief summary of the events that transpired during this hospital admission. For more information, please refer to hospital documentation. Discharge Diagnoses COPD exacerbation Atrial Fibrillation with RVR - Date & Time of H&P Date of H&P: 08/03/18 Time of H&P: 15:39 Discharge Exam - Head Exam Head Exam: ATRAUMATIC, NORMAL INSPECTION, NORMOCEPHALIC - Eye Exam Eye Exam: EOMI, PERRL - ENT Exam ENT Exam: Mucous Membranes Moist - Respiratory Exam Respiratory Exam: Wheezes, NORMAL BREATHING PATTERN - Cardiovascular Exam Cardiovascular Exam: Irregular Rhythm, +S1, +S2. absent: Clicks, Gallop, Rubs - GI/Abdominal Exam GI & Abdominal Exam: Normal Bowel Sounds, Soft. absent: Distended, Firm, Guarding, Tenderness - Extremities Exam Extremities exam: full ROM - Neurological Exam Neurological exam: Alert, CN II-XII Intact, Oriented x3 - Psychiatric Exam Psychiatric exam: Normal Affect, Normal Mood - Skin Skin Exam: Dry, Intact Discharge Plan - Follow Up Plan Condition: SERIOUS Disposition: AGAINST MEDICAL ADVICE <Mak Sparrow - Last Filed: 08/06/18 16:34> Provider - Provider Date of Admission: 08/03/18 13:53 Attending physician: Mak Sparrow MD Consults: 08/03/18 15:34 Cardiology Consult Routine Comment: Consulting Provider: Mak Mendez Consulting Physician: Mak Mendez Reason for Consult: atrial fibrillation with RVR 08/03/18 21:53 Case Management Referral Routine Comment: NEEDS ASSISTANCE AT HOME Physician Instructions: Reason For Exam: EVALUATION Reason for Referral: Long Term Acute Care Registered Nurse Eval Inpatient PULL OUT OPERATOR Core Measures Referral Routine Comment: CHF,COPD EXACERBATION Physician Instructions: Reason For Exam: EVALUATION Nursing Referral for Wound Care Routine Comment: MULTIPLE BRUISING FROM FALLS Physician Instructions: Reason For Exam: EVALUATION Transition In Care/Readmission Reduction Routine Comment: Physician Instructions: Reason For Exam: EVALUATION 08/03/18 21:57 Social Work Referral Routine Comment: NEEDS ASSISTANCE AT HOME Physician Instructions: Reason For Exam: EVALUATION Hospital Course - Lab Results Lab Results: Micro Results 08/03/18 14:00 Urine,Clean Catch Urine Culture - Final No Growth (<1,000 CFU/ML) Most Recent Lab Values WBC 14.1 10^3/uL (4.5-11.0) H D 08/05/18 06:00 RBC 4.28 10^6/uL (3.5-6.1) 08/05/18 06:00 Hgb 12.2 g/dL (12.0-16.0) 08/05/18 06:00 Hct 37.8 % (36.0-48.0) 08/05/18 06:00 MCV 88.3 fl (80.0-105.0) 08/05/18 06:00 MCH 28.5 pg (25.0-35.0) 08/05/18 06:00 MCHC 32.3 g/dl (31.0-37.0) 08/05/18 06:00 RDW 14.6 % (11.5-14.5) H 08/05/18 06:00 Plt Count 300 10^3/uL (120.0-450.0) 08/05/18 06:00 MPV 8.8 fl (7.0-11.0) 08/05/18 06:00 Neut % (Auto) 90.3 % (50.0-68.0) H 08/05/18 06:00 Lymph % (Auto) 6.4 % (22.0-35.0) L 08/05/18 06:00 [place] % (Auto) 3.3 % (1.0-6.0) 08/05/18 06:00 Eos % (Auto) 0.0 % (1.5-5.0) L 08/05/18 06:00 Baso % (Auto) 0.0 % (0.0-3.0) 08/05/18 06:00 Lymph # (Auto) 0.9 (1.2-3.4) L 08/05/18 06:00 [place] # (Auto) 0.5 (0.1-0.6) 08/05/18 06:00 Eos # (Auto) 0.0 (0.0-0.7) 08/05/18 06:00 Baso # (Auto) 0.00 K/mm3 (0.0-2.0) 08/05/18 06:00 Absolute Neuts (auto) 12.71 (1.4-6.5) H 08/05/18 06:00 Neutrophils % (Manual) 92 % (50.0-70.0) H 08/05/18 06:00 Lymphocytes % (Manual) 5 % (22.0-35.0) L 08/05/18 06:00 Monocytes % (Manual) 3 % (1.0-6.0) 08/05/18 06:00 Platelet Evaluation Normal (NORMAL) 08/05/18 06:00 PT 26.3 SECONDS (9.4-12.5) H 08/05/18 06:00 INR 2.33 08/05/18 06:00 APTT 45.2 Seconds (26.9-38.3) H 08/03/18 12:41 pO2 46 mm/Hg (30-55) 08/03/18 00:12 VBG pH 7.41 (7.32-7.43) 08/03/18 00:12 VBG pCO2 34.0 (40-60) L 08/03/18 00:12 VBG HCO3 21.6 mmol/l (21-28) 08/03/18 00:12 VBG Total CO2 22.6 mmol.L (22-28) 08/03/18 00:12 VBG O2 Sat (Calc) 86.1 % (40-65) H 08/03/18 00:12 VBG Base Excess -2.4 mmol/L (0.0-2.0) L 08/03/18 00:12 VBG Potassium 3.0 mmol/L (3.6-5.2) L 08/03/18 00:12 Sodium 135.0 mmol/L (132-148) 08/03/18 00:12 Chloride 108.0 mmol/L (98-107) H 08/03/18 00:12 Glucose 112 mg/dl (65-105) H 08/03/18 00:12 Lactate 1.4 mmol/L (0.7-2.1) 08/03/18 00:12 FiO2 21.0 % 08/03/18 00:12 Sodium 132 mmol/L (132-148) 08/05/18 06:00 Potassium 4.8 mmol/L (3.6-5.0) 08/05/18 06:00 Chloride 95 mmol/L (98-107) L 08/05/18 06:00 Carbon Dioxide 29 mmol/L (21-33) 08/05/18 06:00 Anion Gap 12 (10-20) 08/05/18 06:00 BUN 28 mg/dL (7-21) H 08/05/18 06:00 Creatinine 0.7 mg/dl (0.7-1.2) 08/05/18 06:00 Est GFR ( Amer) > 60 08/05/18 06:00 Est GFR (Non-Af Amer) > 60 08/05/18 06:00 Random Glucose 139 mg/dL (70-110) H 08/05/18 06:00 Calcium 9.5 mg/dL (8.4-10.5) 08/05/18 06:00 Phosphorus 4.6 mg/dL (2.5-4.5) H 08/05/18 06:00 Magnesium 1.8 mg/dL (1.7-2.2) 08/05/18 06:00 Total Bilirubin 0.7 mg/dL (0.2-1.3) 08/03/18 12:41 AST 31 U/L (14-36) 08/03/18 12:41 ALT 28 U/L (7-56) 08/03/18 12:41 Alkaline Phosphatase 62 U/L (38-126) 08/03/18 12:41 Lactate Dehydrogenase 472 U/L (333-699) 08/03/18 12:41 Total Creatine Kinase 72 U/L (35-230) 08/03/18 12:41 Troponin I < 0.01 ng/mL 08/03/18 12:41 NT-Pro-B Natriuret Pep 2260 pg/mL (0-450) H 08/03/18 12:41 Total Protein 6.6 g/dL (5.8-8.3) 08/03/18 12:41 Albumin 3.9 g/dL (3.0-4.8) 08/03/18 12:41 Globulin 2.7 gm/dL 08/03/18 12:41 Albumin/Globulin Ratio 1.5 (1.1-1.8) 08/03/18 12:41 TSH 3rd Generation 0.61 mIU/mL (0.46-4.68) 08/05/18 06:00 Venous Blood Potassium 3.0 mmol/L (3.6-5.2) L 08/03/18 00:12 Urine Color Yellow (YELLOW) 08/03/18 12:40 Urine Appearance Clear (CLEAR) 08/03/18 12:40 Urine pH 6.0 (4.7-8.0) 08/03/18 12:40 Ur Specific [place] <= 1.005 (1.005-1.035) 08/03/18 12:40 Urine Protein Negative mg/dL (<30 mg/dL) 08/03/18 12:40 Urine Glucose (UA) Negative mg/dL (NEGATIVE) 08/03/18 12:40 Urine Ketones Negative mg/dL (NEGATIVE) 08/03/18 12:40 Urine Blood Negative (NEGATIVE) 08/03/18 12:40 Urine Nitrate Negative (NEGATIVE) 08/03/18 12:40 Urine Bilirubin Negative (NEGATIVE) 08/03/18 12:40 Urine Urobilinogen 0.2 E.U./dL (<1 E.U./dL) 08/03/18 12:40 Ur Leukocyte Esterase Trace Moo/uL (NEGATIVE) H 08/03/18 12:40 Urine RBC 0 - 2 /hpf (0-2) 08/03/18 12:40 Urine WBC 0 - 2 /hpf (0-6) 08/03/18 12:40 Ur Epithelial Cells 0 - 2 /hpf (0-5) 08/03/18 12:40 Urine Bacteria Trace /hpf (NONE) 08/03/18 12:40 Digoxin 0.6 ng/mL (0.8-2.0) L 08/03/18 12:41 Alcohol, Quantitative < 10 mg/dL (0-10) 08/03/18 12:41 Attending/Attestation - Attestation I have personally seen and examined this patient.: Yes I have fully participated in the care of the patient.: Yes I have reviewed all pertinent clinical information, including history, physical exam and plan: Yes Notes (Text): 08/06/18 16:30 72 year old female with PMH of paroxysmal afib on coumadin, diastolic CHF, CAD, and COPD who presented with complaint of weakness, fatigue, shortness of breath and falls at home. She was found to have for COPD exacerbation and Afib with RVR. CT head was negative for acute findings or bleed. She was treated with iv steroids, Nebs and antibiotics. Patient was wheezing earlier, Heart rate was better controlled and INR was therapeutic. She was found to be smoking on the floor on Sunday night. Yesterday evening she decided to leave hospital against medical advice.The issue was discussed with her in detail by medical insurance biller but she decided not to stay and signed against medical advice. Prognosis is guarded due to ongoing smoking and non compliance.
[2018-08-06] MEDS ORDERED: MethylPREDNISolone 40 mg Vial IVP SCH (10:00)
[2018-08-06] MEDS ORDERED: Digoxin 125 mcg (0.125 mg) Tab PO SCH (14:00)
== END 2018-08-05 19:33 | disposition left against medical advice (07) | DRG 191 ==
LOC: ED 11:27 → ERH 13:53 → 2RSO 16:10
PROVIDERS: ADMIT Internal Medicine; ATTEND Internal Medicine
DX: J44.1 Chronic obstructive pulmonary disease with (acute) exacerbation (principal); I50.32 Chronic diastolic (congestive) heart failure; I42.9 Cardiomyopathy, unspecified; I50.810 Right heart failure, unspecified; I11.0 Hypertensive heart disease with heart failure; I48.0 Paroxysmal atrial fibrillation; I48.2 Chronic atrial fibrillation; I25.10 Atherosclerotic heart disease of native coronary artery without angina pectoris; I08.1 Rheumatic disorders of both mitral and tricuspid valves; F17.200 Nicotine dependence, unspecified, uncomplicated; K21.9 Gastro-esophageal reflux disease without esophagitis; F32.9 Major depressive disorder, single episode, unspecified; F41.9 Anxiety disorder, unspecified; R29.6 Repeated falls; Z91.81 History of falling; Z79.01 Long term (current) use of anticoagulants; Z95.5 Presence of coronary angioplasty implant and graft; Z88.1 Allergy status to other antibiotic agents

== ENCOUNTER 2018-08-14 06:30 | Inpatient (IN) | payer MEDICARE, OTHER ==
[2018-08-14 06:31] VITALS: BMI 24.8
[2018-08-14] MEDS ORDERED: Albuterol-Ipratrop 3 mg / 0.5 (3 ml) UD IH STA (06:52)
--- NOTE | 2018-08-14 07:08 | ED PDOC ---
Arrival/HPI - General Chief Complaint: Shortness Of Breath Time Seen by Provider: 08/14/18 06:35 Historian: Patient - History of Present Illness Narrative History of Present Illness (Text): 08/14/18 07:06 Alecia Arciniega is a 72 year old female, whose past medical history includes paroxysmal atrial fibrillation on coumadin, non-ischemic cardiomyopathy, coronary artery disease, and COPD, who presents to the ED complaining of shor tness of breath for the past several days. Patient states symptoms have been getting progressively worse. Patient reports associated palpitations. Patient denies any chest pain, fever, nausea, vomiting, or any other complaints. Symptom Onset: Gradual Symptom Course: Unchanged Activities at Onset: Light Context: Home Past Medical History - Provider Review Nursing Documentation Reviewed: Yes - Travel History Have you recently traveled outside [place] w/in the past 3 mons?: No - Infectious Disease Hx of Infectious Diseases: None - Cardiac Hx Cardiac Disorders: Yes (A fib, cardiac cath x 1 with cardiac stent.) Hx Congestive Heart Failure: Yes (diastolic) Hx Hypertension: Yes - Pulmonary Hx Respiratory Disorders: Yes - Neurological Hx Neurological Disorder: Yes (headaches) Hx Dizziness: Yes - HEENT Hx HEENT Disorder: No - Renal Hx Renal Disorder: No - Endocrine/Metabolic Hx Endocrine Disorders: No - Hematological/Oncological Hx Blood Disorders: No - Integumentary Hx Dermatological Disorder: Yes (MULTIPLE BRUISING FROM FALLS) - Musculoskeletal/Rheumatological Hx Musculoskeletal Disorders: Yes Hx Falls: Yes Hx Unsteady Gait: Yes - Gastrointestinal Hx Gastrointestinal Disorders: Yes (reflux) - Genitourinary/Gynecological Hx Genitourinary Disorders: No - Psychiatric Hx Psychophysiologic Disorder: Yes Hx Anxiety: Yes Hx Depression: Yes Hx Substance Use: No - Surgical History Hx Cardiac Catheterization: Yes (X1) Hx Coronary Stent: Yes (unknown) Other/Comment: robotic left lower wedge resection and lymphaderectomy 06/2015, polypectomy, left lung nodule removed 2 yrs ago at [facility] benign - Anesthesia Hx Anesthesia: Yes Hx Anesthesia Reactions: No Hx Malignant Hyperthermia: No - Suicidal Assessment Feels Threatened In Home Enviroment: No Family/Social History - Physician Review Nursing Documentation Reviewed: Yes Family/Social History: No Known Family HX Smoking Status: Current Some Days Smoker Hx Alcohol Use: No Hx Substance Use: No Allergies/Home Meds Allergies/Adverse Reactions: Allergies azithromycin [From Zithromax] Adverse Reaction (Intermediate, Verified 08/03/18 16:14) RASH "JUST DOES NOT WORK" Home Medications: Home Meds Medication Instructions Recorded Confirmed Pantoprazole Sodium [Protonix] 40 mg PO ACB 10/24/17 08/14/18 ALPRAZolam [Xanax] 1 mg PO TID 03/11/18 08/14/18 Albuterol Sulfate [Ventolin Hfa] 1 puff IH Q6 PRN 03/11/18 08/14/18 Albuterol/Ipratropium [Duoneb 3 3 ml IH Q6 PRN 03/11/18 08/14/18 mg/0.5 mg (3 ml) UD] Atorvastatin [Lipitor] 10 mg PO HS 03/11/18 08/14/18 Fluticasone/Salmeterol 250/50 1 puff IH Q12 03/11/18 08/14/18 [Advair Diskus] Furosemide [Lasix] 40 mg PO DAILY 03/11/18 08/14/18 Gabapentin [Neurontin] 400 mg PO QID 03/11/18 08/14/18 Lisinopril [Zestril] 2.5 mg PO DAILY 03/11/18 08/14/18 QUEtiapine [Seroquel] 25 mg PO BID 03/11/18 08/14/18 Sertraline [Zoloft] 100 mg PO BID 03/11/18 08/14/18 Review of Systems - Review of Systems Constitutional: Normal Eyes: Normal ENT: Normal Respiratory: SOB Cardiovascular: Palpitations. absent: Chest Pain Gastrointestinal: Normal Genitourinary Female: Normal Musculoskeletal: Normal Skin: Normal Neurological: Normal Endocrine: Normal Hemo/Lymphatic: Normal Psychiatric: Normal Physical Exam Vital Signs Reviewed: Yes Vital Signs Temp Pulse Resp BP Pulse Ox 08/14/18 06:57 148 H 132/82 08/14/18 06:33 97.4 F L 144 H 22 133/82 97 Temperature: Afebrile Blood Pressure: Normal Pulse: Tachycardic Respiratory Rate: Tachypneic Appearance: Positive for: Well-Appearing, Non-Toxic, Comfortable Pain Distress: None Mental Status: Positive for: Alert and Oriented X 3 - Systems Exam Head: Present: Atraumatic, Normocephalic Pupils: Present: PERRL Extroacular Muscles: Present: EOMI Conjunctiva: Present: Normal Mouth: Present: Moist Mucous Membranes Neck: Present: Normal Range of Motion Respiratory/Chest: Present: Good Air Exchange, Wheezes, Rales. No: Respiratory Distress, Accessory Muscle Use Cardiovascular: Present: Regular Rate and Rhythm, Normal S1, S2. No: Murmurs Abdomen: No: Tenderness, Distention, Peritoneal Signs Back: Present: Normal Inspection Upper Extremity: Present: Normal Inspection. No: Cyanosis, Edema Lower Extremity: Present: Normal Inspection. No: Edema Neurological: Present: GCS=15, CN II-XII Intact, Speech Normal Skin: Present: Warm, Dry, Normal Color. No: Rashes Psychiatric: Present: Alert, Oriented x 3, Normal Insight, Normal Concentration Medical Decision Making ED Course and Treatment: Impression: 72 year old female complaining of progressively worsening shortness of breath and palpitations. Plan: -- EKG -- Chest X-ray -- Labs, cardiac enzymes, BNP, blood cultures -- Cardizem -- Duoneb -- Reassess and disposition Prior Visits: Notes and results from previous visits were reviewed. Progress Notes: 08/14/2018 07:[address] Varela, pending lab results, reevaluation and disposition. - RAD Interpretation Radiology Orders: 08/14/18 06:51 CHEST PORTABLE [RAD] Stat - Medication Orders Current Medication Orders: Discontinued Medications Albuterol/Ipratropium (Duoneb 3 Mg/0.5 Mg (3 Ml) Ud) 3 ml IH STAT STA Stop: 08/14/18 06:53 Last Admin: 08/14/18 06:57 Dose: 3 ml Diltiazem HCl (Cardizem) 20 mg IVP STAT STA Stop: 08/14/18 06:53 Last Admin: 08/14/18 06:57 Dose: 20 mg IVP Administration Document 08/14/18 06:57 KV (Rec: 08/14/18 06:57 KV [id number]) Charges for Administration # of IVP Administrations 1 MAR Pulse and Blood Pressure Document 08/14/18 06:57 KV (Rec: 08/14/18 06:57 KV [id number]) Pulse Pulse Rate (60-90) 148 Blood Pressure Blood Pressure (100/60-150/90) 132/82 - Scribe Statement The provider has reviewed the documentation as recorded by the Niraj Lion Provider Scribe Attestation: All medical record entries made by the Rickiblukas were at my direction and personally dictated by me. I have reviewed the chart and agree that the record accurately reflects my personal performance of the history, physical exam, medical decision making, and the department course for this patient. I have also personally directed, reviewed, and agree with the discharge instructions and disposition. Disposition/Present on Arrival - Present on Arrival Any Indicators Present on Arrival: No History of DVT/PE: No History of Uncontrolled Diabetes: No Urinary Catheter: No History of Decub. Ulcer: No History Surgical Site Infection Following: None - Disposition Have Diagnosis and Disposition been Completed?: Yes Diagnosis: Atrial fibrillation, COPD (chronic obstructive pulmonary disease) Disposition: HOSPITALIZED Disposition Time: 07:00 Patient Problems: Current Active Problems Problem Status Onset Atrial fibrillation Chronic COPD (chronic obstructive pulmonary disease) Chronic Condition: GUARDED
--- NOTE | 2018-08-14 07:11 | ED PDOC ---
Physical Exam Vital Signs Temp Pulse Resp BP Pulse Ox 08/14/18 06:57 148 H 132/82 08/14/18 06:35 22 96 08/14/18 06:33 97.4 F L 144 H 22 133/82 97 Medical Decision Making ED Course and Treatment: 08/14/18 07:[address] Segundo with patient pending lab results, reevaluation and possible admission. She has a history of multiple admissions for similar complaints. 08/14/18 09:[address] Walters(hospialist) who accepts patient for admission. HR noted to be 120s and irregularly irregular, consistent with atrial fibrillation. Patient will be started on Cardizem drip and admitted to telemetry floor. - Lab Interpretations Lab Results: 08/14/18 06:55 08/14/18 06:55 Lab Results 08/14/18 06:55: PT 15.5 H, INR 1.37, APTT 43.0 H 08/14/18 06:55: Sodium 132, Potassium 4.3, Chloride 94 L, Carbon Dioxide 27, Anion Gap 15, BUN 10, Creatinine 0.6 L, Est GFR ( Amer) > 60, Est GFR (Non-Af Amer) > 60, Random Glucose 109, Calcium 9.4, Magnesium 1.5 L, Total Bilirubin 0.6, AST 45 H D, ALT 63 H, Alkaline Phosphatase 77, Lactate Dehydrogenase 542, Total Creatine Kinase 47, Troponin I < 0.01, NT-Pro-B Natriuret Pep 1930 H, Total Protein 7.5, Albumin 4.5, Globulin 2.9, Albumin/Globulin Ratio 1.6 08/14/18 06:55: WBC 9.6 D, RBC 4.85, Hgb 13.8, Hct 42.6, MCV 87.8, MCH 28.5, MCHC 32.4, RDW 14.4, Plt Count 294, MPV 9.1, Neut % (Auto) 84.2 H, Lymph % (Auto) 7.7 L, Edmunds % (Auto) 6.5 H, Eos % (Auto) 1.3 L, Baso % (Auto) 0.3, Lymph # (Auto) 0.7 L, Edmunds # (Auto) 0.6, Eos # (Auto) 0.1, Baso # (Auto) 0.03, Absolute Neuts (auto) 8.04 H I have reviewed the lab results: Yes - RAD Interpretation Radiology Orders: 08/14/18 06:51 CHEST PORTABLE [RAD] Stat - Medication Orders Current Medication Orders: Discontinued Medications Albuterol/Ipratropium (Duoneb 3 Mg/0.5 Mg (3 Ml) Ud) 3 ml IH STAT STA Stop: 08/14/18 06:53 Last Admin: 08/14/18 06:57 Dose: 3 ml Diltiazem HCl (Cardizem) 20 mg IVP STAT STA Stop: 08/14/18 06:53 Last Admin: 08/14/18 06:57 Dose: 20 mg IVP Administration Document 08/14/18 06:57 KV (Rec: 08/14/18 06:57 KV [id number]) Charges for Administration # of IVP Administrations 1 MAR Pulse and Blood Pressure Document 08/14/18 06:57 KV (Rec: 08/14/18 06:57 KV [id number]) Pulse Pulse Rate (60-90) 148 Blood Pressure Blood Pressure (100/60-150/90) 132/82 Disposition/Present on Arrival - Present on Arrival Any Indicators Present on Arrival: No History of DVT/PE: No History of Uncontrolled Diabetes: No Urinary Catheter: No History of Decub. Ulcer: No History Surgical Site Infection Following: None - Disposition Have Diagnosis and Disposition been Completed?: Yes Diagnosis: Atrial fibrillation, COPD (chronic obstructive pulmonary disease) Disposition: HOSPITALIZED Disposition Time: 09:00 Patient Plan: Admission Condition: GUARDED Forms: [employer] (Japanese)
[2018-08-14 07:14] LABS: BASO # 0.03 K/mm3 (0.0-2.0); BASO % 0.3 % (0.0-3.0); EOS # 0.1 (0.0-0.7); EOS % 1.3 % (1.5-5.0); HEMOGLOBIN 13.8 g/dL (12.0-16.0); LYMPH # 0.7 (1.2-3.4); LYMPH % 7.7 % (22.0-35.0); MEAN CELL VOLUME 87.8 fl (80.0-105.0); MEAN CORPUSCULAR HEMOGLOBIN 28.5 pg (25.0-35.0); MEAN CORPUSCULAR HGB CONC 32.4 g/dl (31.0-37.0); MEAN PLATELET VOLUME 9.1 fl (7.0-11.0); MONO # 0.6 (0.1-0.6); MONO % 6.5 % (1.0-6.0); RBC 4.85 10^6/uL (3.5-6.1); RED CELL DISTRIBUTION WIDTH 14.4 % (11.5-14.5); WHITE BLOOD COUNT 9.6 10^3/uL (4.5-11.0)
[2018-08-14 07:23] LABS: INR 1.37; PROTHROMBIN TIME 15.5 SECONDS (9.4-12.5)
[2018-08-14 07:34] LABS: ALB/GLOB RATIO 1.6 (1.1-1.8); ALBUMIN 4.5 g/dL (3.0-4.8); ALT/SGPT 63 U/L (7-56); AST/SGOT 45 U/L (14-36); BLOOD UREA NITROGEN 10 mg/dL (7-21); CALCIUM 9.4 mg/dL (8.4-10.5); GFR NON-AFRICAN AMERICAN > 60
[2018-08-14 07:42] LABS: B-TYPE NATRIURETIC PEPTIDE 1930 pg/mL (0-450); TROPONIN I < 0.01 ng/mL
--- NOTE | 2018-08-14 08:35 | RAD ---
Date of service: 08/14/2018 HISTORY: sob COMPARISON: 08/03/2018 TECHNIQUE: 1 view obtained. FINDINGS: LUNGS: No active pulmonary disease. PLEURA: No significant pleural effusion identified, no pneumothorax apparent. CARDIOVASCULAR: Aortic calcification Normal cardiac size. No pulmonary vascular congestion. OSSEOUS STRUCTURES: No significant abnormalities. VISUALIZED UPPER ABDOMEN: Normal. OTHER FINDINGS: None. IMPRESSION: No active disease.
--- NOTE | 2018-08-14 09:08 | CARD ---
APPROVED REPORT Date of service: 08/14/2018 EKG Measurement Heart [id number] <Conclusion> Atrial fibrillation with rapid ventricular response Cannot rule out Anterior infarct, age undetermined Abnormal ECG
[2018-08-14] MEDS ORDERED: Magnesium Sulfate 2 gm/50 ml 2 GM/50 ML BAG IVPB ONE (09:11)
[2018-08-14] MEDS: Albuterol-Ipratrop 3 mg / 0.5 (3 ml) UD IH SCH ×3 (09:27→10:01)
[2018-08-14] MEDS ORDERED: diltiaZEM IVPB 100mg in NS 100 ML IV SCH (09:30)
[2018-08-14] MEDS: Enoxaparin 60 mg Syringe SC SCH ×2 (10:04→22:03)
[2018-08-14] MEDS ORDERED: Magnesium Sulfate 1 gm in D5W 1 GM/100 ML BAG IVPB ONE (10:15)
[2018-08-14] MEDS: Levalbuterol 1.25 MG/3 ML Inhal Soln UD IH PRN ×2 (11:40→18:30)
[2018-08-14] MEDS: MethylPREDNISolone 40 mg Vial IVP SCH ×2 (12:48→20:00)
[2018-08-14] MEDS: Levalbuterol 0.63 MG/3 ML Inhal Soln UD IH PRN (13:20)
[2018-08-14] MEDS ORDERED: Morphine 2 mg/ml ISec IVP STA (13:45)
[2018-08-14] MEDS: diltiaZEM IVPB 100mg in NS 100 ML IV SCH ×2 (13:58→17:50)
[2018-08-14 14:02] LABS: ARTERIAL BLOOD GAS HCO3 21.6 mmol/L (21-28); ARTERIAL BLOOD GAS HEMOGLOBIN < 3.0 g/dL (11.7-17.4); ARTERIAL BLOOD GAS PCO2 44 mm/Hg (35-45)
[2018-08-14] MEDS ORDERED: Digoxin 500 mcg/2ml (0.5 mg/2ml) Inj IVP STA (15:36)
[2018-08-14] MEDS ORDERED: Digoxin 500 mcg/2ml (0.5 mg/2ml) Inj IVP ONE ×3 (15:37→22:30)
--- NOTE | 2018-08-14 15:41 | RAD ---
Date of service: 08/14/2018 HISTORY: respiratory distress COMPARISON: 08/14/2018 TECHNIQUE: 1 view obtained. FINDINGS: LUNGS: Increasing vascular and interstitial congestion PLEURA: No significant pleural effusion identified, no pneumothorax apparent. CARDIOVASCULAR: No aortic atherosclerotic calcification present. Normal cardiac size. No pulmonary vascular congestion. OSSEOUS STRUCTURES: No significant abnormalities. VISUALIZED UPPER ABDOMEN: Normal. OTHER FINDINGS: None. IMPRESSION: Increasing vascular and interstitial congestion
--- NOTE | 2018-08-14 16:54 | CP.PCM.HP ---
<Valentino Singh - Last Filed: 08/14/18 17:32> History of Present Illness - History of Present Illness History of Present Illness: History and Physical for Hospitalist Service - Baljeet Singh PGY2 Chief complaint: SHOB HPI: 72 year old female with past medical history of paroxysmal atrial fibrillation, non-ischemic cardiomyopathy, CAD, poorly controlled non home O2 COPD secondary to medication compliance and secondary to tobacco abuse who presented to [facility] ED complaining of worsening shortness of breath for the past few days. Patient indicates she has continued to smoke since discharge and has had poor compliance with her medications. HPI is limited secondary to patient respiratory effort. Questioning indicates she has been compliant with her medications. She denies productive sputum, fever, chills, nausea, vomiting, diarrhea, constipation, sick contacts, recent travel. Patient reports palpitations. IN ED patient given IV steroids, continues nebulizer treatments and IV abx. Patient previous hosptial course was reviewed. Patient presented with similar findings and later signed out against medical advice. PMH: paroxysmal atrial fibrillation, non-ischemic cardiomyopathy, CAD, COPD, anxiety PSH: robotic left lower wedge resection and lymphaderectomy 06/2015, polypectomy, left lung nodule removed 2 yrs ago at [facility] benign ALL: Azithromycin SOCHx: Tobacco: current everyday smoker, ETOH: Social, ID: [id number] MEDS: Diltiazem, warfarin, sertraline, seroquel, protonix, lopressor, gabapentin, lasix, advair 250/50, lipitor, duoneb,ventolin hfa, xanax PMD: Dr. Casas Chiller Technician: Dr. Mendez Pharmacy: [facility] in [place], [place] Present on Admission - Present on Admission Any Indicators Present on Admission: No Review of Systems - Review of Systems All systems: reviewed and no additional remarkable complaints except (as mentioned in HPI) Past Patient History - Infectious Disease Hx of Infectious Diseases: None - Past Medical History & Family History Past Medical History?: Yes - Past Social History Smoking Status: Current Some Days Smoker - CARDIAC Hx Cardiac Disorders: Yes (A fib, cardiac cath x 1 with cardiac stent.) Hx Congestive Heart Failure: Yes (diastolic) Hx Hypertension: Yes - PULMONARY Hx Respiratory Disorders: Yes - NEUROLOGICAL Hx Neurological Disorder: Yes (headaches) Hx Dizziness: Yes - HEENT Hx HEENT Problems: No - RENAL Hx Chronic Kidney Disease: No - ENDOCRINE/METABOLIC Hx Endocrine Disorders: No - HEMATOLOGICAL/ONCOLOGICAL Hx Blood Disorders: No - INTEGUMENTARY Hx Dermatological Problems: Yes (MULTIPLE BRUISING FROM FALLS) - MUSCULOSKELETAL/RHEUMATOLOGICAL Hx Musculoskeletal Disorders: Yes Hx Falls: Yes Hx Unsteady Gait: Yes - GASTROINTESTINAL Hx Gastrointestinal Disorders: Yes (reflux) - GENITOURINARY/GYNECOLOGICAL Hx Genitourinary Disorders: No - PSYCHIATRIC Hx Psychophysiologic Disorder: Yes Hx Anxiety: Yes Hx Depression: Yes Hx Substance Use: No - SURGICAL HISTORY Hx Cardiac Catheterization: Yes (X1) Hx Coronary Stent: Yes (unknown) Other/Comment: robotic left lower wedge resection and lymphaderectomy 06/2015, polypectomy, left lung nodule removed 2 yrs ago at [facility] benign - ANESTHESIA Hx Anesthesia: Yes Hx Anesthesia Reactions: No Hx Malignant Hyperthermia: No Meds Allergies/Adverse Reactions: Allergies Allergy/AdvReac Type Severity Reaction Status Date / Time azithromycin [From Zithromax] AdvReac Intermediate RASH Verified 08/03/18 16:14 Physical Exam - Constitutional Appears: In Acute Distress, Older Than Stated Age - Head Exam Head Exam: ATRAUMATIC, NORMOCEPHALIC - Eye Exam Eye Exam: EOMI, PERRL - ENT Exam ENT Exam: Mucous Membranes Dry - Neck Exam Neck exam: Positive for: Full Rom - Respiratory Exam Respiratory Exam: Accessory Muscle Use, Decreased Breath Sounds, Rhonchi, Wheezes - Cardiovascular Exam Cardiovascular Exam: Tachycardia, Irregular Rhythm - GI/Abdominal Exam GI & Abdominal Exam: Normal Bowel Sounds, Soft. absent: Distended, Firm, Guarding, Tenderness - Extremities Exam Extremities exam: Positive for: normal inspection. Negative for: calf tenderness, tenderness - Neurological Exam Neurological exam: Alert, Oriented x3 Additional comments: motor and sensory grossly intact, patient exam limited secondary to respiratory effort - Psychiatric Exam Psychiatric exam: Anxious - Skin Skin Exam: Dry, Intact, Pallor Results - Vital Signs Recent Vital Signs: Last Vital Signs Temp 97.7 F 08/14/18 12:20 Pulse 112 H 08/14/18 14:30 Resp 21 08/14/18 12:20 BP 150/100 H 08/14/18 13:55 Pulse Ox 95 08/14/18 09:34 - Labs Result Diagrams: 08/14/18 06:55 08/14/18 06:55 Labs: Laboratory Results - last 24 hr 08/14/18 08/14/18 08/14/18 03:50 06:55 06:55 WBC 9.6 D RBC 4.85 Hgb 13.8 Hct 42.6 MCV 87.8 MCH 28.5 MCHC 32.4 RDW 14.4 Plt Count 294 MPV 9.1 Neut % (Auto) 84.2 H Lymph % (Auto) 7.7 L Dunn % (Auto) 6.5 H Eos % (Auto) 1.3 L Baso % (Auto) 0.3 Lymph # (Auto) 0.7 L Dunn # (Auto) 0.6 Eos # (Auto) 0.1 Baso # (Auto) 0.03 Absolute Neuts (auto) 8.04 H PT INR APTT pCO2 44 pO2 225.0 H HCO3 21.6 ABG pH 7.30 L ABG Total CO2 23.0 ABG O2 Saturation TNP ABG Base Excess -4.8 L ABG Hemoglobin < 3.0 L ABG Carboxyhemoglobin TNP POC ABG HHb (Measured) TNP ABG Methemoglobin TNP Hgb O2 Saturation TNP FiO2 50.0 Crit Value Called To [place] dent Crit Value Called By Ss Blood Gas Notified Time 1402 Sodium 132 Potassium 4.3 Chloride 94 L Carbon Dioxide 27 Anion Gap 15 BUN 10 Creatinine 0.6 L Est GFR ( Amer) > 60 Est GFR (Non-Af Amer) > 60 Random Glucose 109 Calcium 9.4 Magnesium 1.5 L Total Bilirubin 0.6 AST 45 H D ALT 63 H Alkaline Phosphatase 77 Lactate Dehydrogenase 542 Total Creatine Kinase 47 Troponin I < 0.01 NT-Pro-B Natriuret Pep 1930 H Total Protein 7.5 Albumin 4.5 Globulin 2.9 Albumin/Globulin Ratio 1.6 Digoxin Alcohol, Quantitative 08/14/18 08/14/18 08/14/18 06:55 06:55 06:55 WBC RBC Hgb Hct MCV MCH MCHC RDW Plt Count MPV Neut % (Auto) Lymph % (Auto) Dunn % (Auto) Eos % (Auto) Baso % (Auto) Lymph # (Auto) Dunn # (Auto) Eos # (Auto) Baso # (Auto) Absolute Neuts (auto) PT 15.5 H INR 1.37 APTT 43.0 H pCO2 pO2 HCO3 ABG pH ABG Total CO2 ABG O2 Saturation ABG Base Excess ABG Hemoglobin ABG Carboxyhemoglobin POC ABG HHb (Measured) ABG Methemoglobin Hgb O2 Saturation FiO2 Crit Value Called To Crit Value Called By Blood Gas Notified Time Sodium Potassium Chloride Carbon Dioxide Anion Gap BUN Creatinine Est GFR ( Amer) Est GFR (Non-Af Amer) Random Glucose Calcium Magnesium Total Bilirubin AST ALT Alkaline Phosphatase Lactate Dehydrogenase Total Creatine Kinase Troponin I NT-Pro-B Natriuret Pep Total Protein Albumin Globulin Albumin/Globulin Ratio Digoxin < 0.4 L Alcohol, Quantitative < 10 Assessment & Plan - Assessment and Plan (Free Text) Assessment: 72 year old female with past medical history of paroxysmal atrial fibrillation, non-ischemic cardiomyopathy, CAD, poorly controlled non home O2 COPD secondary to medication compliance and secondary to tobacco abuse who presented to [facility] ED complaining of worsening shortness of breath. Patient admitted for COPD exacerbation and poorly controlled atrial fibrillation. Plan: COPD exacerbation - Etiology: Likely secondary to tobacco abuse in conjunction with poor medication compliance - IV solumedrol 40mg Q8H - Xopenex 2Q2H prn, Q6H Donna secondary to tachycardia - Doxycycline, Rocephin - Maintan SaO2 90%, supplemental O2 as needed - Fall precautions - BIPAP as needed Atrial Fibrillation with RVR - Patient noted to have elevated pulse in ED 120s-140s - Cardizem gtt at 10mg started, continue - Verapamil 2.5 mg IVP PRn - Continued digoxin - Lovenox 60mg BID for non-therapuetic INR - Cardiology consulted, f/u recs Diastolic CHF - Continue with lasix - Monitor clinically Non ischemic cardiomyopathy - Continue digoxin - Holding metoprolol HTN - Continue lisinopril Anxiety - Ativan 1mg Q8H PRN - Monitor Hypomagnesium - Replete with IV mag 2grams - Monitor, recheck in AM GI/ DVT ppx - Protonix - LOvenox Patient case and plan discussed with attending, Dr. Walters <Fabio Walters - Last Filed: 08/14/18 17:52> Results - Vital Signs Recent Vital Signs: Last Vital Signs Temp 97.7 F 08/14/18 12:20 Pulse 112 H 08/14/18 14:30 Resp 21 08/14/18 12:20 BP 150/100 H 08/14/18 13:55 Pulse Ox 95 08/14/18 09:34 - Labs Result Diagrams: 08/14/18 06:55 08/14/18 06:55 Labs: Laboratory Results - last 24 hr 08/14/18 08/14/18 08/14/18 03:50 06:55 06:55 WBC 9.6 D RBC 4.85 Hgb 13.8 Hct 42.6 MCV 87.8 MCH 28.5 MCHC 32.4 RDW 14.4 Plt Count 294 MPV 9.1 Neut % (Auto) 84.2 H Lymph % (Auto) 7.7 L Dunn % (Auto) 6.5 H Eos % (Auto) 1.3 L Baso % (Auto) 0.3 Lymph # (Auto) 0.7 L Dunn # (Auto) 0.6 Eos # (Auto) 0.1 Baso # (Auto) 0.03 Absolute Neuts (auto) 8.04 H PT INR APTT pCO2 44 pO2 225.0 H HCO3 21.6 ABG pH 7.30 L ABG Total CO2 23.0 ABG O2 Saturation TNP ABG Base Excess -4.8 L ABG Hemoglobin < 3.0 L ABG Carboxyhemoglobin TNP POC ABG HHb (Measured) TNP ABG Methemoglobin TNP Hgb O2 Saturation TNP FiO2 50.0 Crit Value Called To [place] dent Crit Value Called By Ss Blood Gas Notified Time 1402 Sodium 132 Potassium 4.3 Chloride 94 L Carbon Dioxide 27 Anion Gap 15 BUN 10 Creatinine 0.6 L Est GFR ( Amer) > 60 Est GFR (Non-Af Amer) > 60 Random Glucose 109 Calcium 9.4 Magnesium 1.5 L Total Bilirubin 0.6 AST 45 H D ALT 63 H Alkaline Phosphatase 77 Lactate Dehydrogenase 542 Total Creatine Kinase 47 Troponin I < 0.01 NT-Pro-B Natriuret Pep 1930 H Total Protein 7.5 Albumin 4.5 Globulin 2.9 Albumin/Globulin Ratio 1.6 Digoxin Alcohol, Quantitative 08/14/18 08/14/18 08/14/18 06:55 06:55 06:55 WBC RBC Hgb Hct MCV MCH MCHC RDW Plt Count MPV Neut % (Auto) Lymph % (Auto) Dunn % (Auto) Eos % (Auto) Baso % (Auto) Lymph # (Auto) Dunn # (Auto) Eos # (Auto) Baso # (Auto) Absolute Neuts (auto) PT 15.5 H INR 1.37 APTT 43.0 H pCO2 pO2 HCO3 ABG pH ABG Total CO2 ABG O2 Saturation ABG Base Excess ABG Hemoglobin ABG Carboxyhemoglobin POC ABG HHb (Measured) ABG Methemoglobin Hgb O2 Saturation FiO2 Crit Value Called To Crit Value Called By Blood Gas Notified Time Sodium Potassium Chloride Carbon Dioxide Anion Gap BUN Creatinine Est GFR ( Amer) Est GFR (Non-Af Amer) Random Glucose Calcium Magnesium Total Bilirubin AST ALT Alkaline Phosphatase Lactate Dehydrogenase Total Creatine Kinase Troponin I NT-Pro-B Natriuret Pep Total Protein Albumin Globulin Albumin/Globulin Ratio Digoxin < 0.4 L Alcohol, Quantitative < 10 Attending/Attestation - Attestation I have personally seen and examined this patient.: Yes I have fully participated in the care of the patient.: Yes I have reviewed all pertinent clinical information: Yes Notes (Text): 08/14/18 17:43 72 year old female with past medical history of atrial fibrillation on coumadin, cardiomyopathy, CAD, COPD and active tobacco use who presents with complaint of shortness of breath. She is admitted for COPD exacerbation and AFib with RVR. Started on iv steroids and cardizem drip. Continue with xopenex and antibiotics. Counselled on smoking cessation. Cardiology evaluation is requested. Continue with coumadin and lovenox for now as INR is subtherapeutic. Continue with lasix. Replete and repeat lytes (magnesium). Fabio Walters MD Hospitalist.
[2018-08-15] MEDS: Levalbuterol 1.25 MG/3 ML Inhal Soln UD IH PRN (00:02)
[2018-08-15] MEDS: diltiaZEM IVPB 100mg in NS 100 ML IV SCH (01:52)
[2018-08-15] MEDS: MethylPREDNISolone 40 mg Vial IVP SCH ×2 (04:13→11:27)
[2018-08-15] MEDS ORDERED: Flumazenil 0.1 mg/ml Inj (5ml) IVP STA (06:25)
[2018-08-15] MEDS ORDERED: Flumazenil 0.1 mg/ml Inj (5ml) IVP ONE (06:27)
[2018-08-15] MEDS: Levalbuterol 0.63 MG/3 ML Inhal Soln UD IH PRN (06:29)
[2018-08-15 06:37] LABS: MEAN CELL VOLUME 90.5 fl (80.0-105.0); MEAN CORPUSCULAR HEMOGLOBIN 29.2 pg (25.0-35.0); MEAN CORPUSCULAR HGB CONC 32.3 g/dl (31.0-37.0); MEAN PLATELET VOLUME 9.2 fl (7.0-11.0); RBC 5.14 10^6/uL (3.5-6.1); RED CELL DISTRIBUTION WIDTH 14.5 % (11.5-14.5); WHITE BLOOD COUNT 12.8 10^3/uL (4.5-11.0)
[2018-08-15 06:39] LABS: INR 1.34; PROTHROMBIN TIME 15.1 SECONDS (9.4-12.5)
[2018-08-15 06:43] LABS: ARTERIAL BLOOD GAS HCO3 24.6 mmol/L (21-28); ARTERIAL BLOOD GAS O2 SAT 99.6 % (95-98); ARTERIAL BLOOD GAS PCO2 69 mm/Hg (35-45); ARTERIAL BLOOD GAS PH 7.16 (7.35-7.45); ARTERIAL BLOOD GAS TCO2 26.7 mmol.L (22-28)
--- NOTE | 2018-08-15 06:51 | PCM.RRT ---
<Vega Yi - Last Filed: 08/15/18 06:45> BREAKFAST MANAGER Nurse Assessment - Situation Date: 08/15/18 Time BREAKFAST MANAGER was called: 06:20 BREAKFAST MANAGER Responder Arrival Time: 06:23 BREAKFAST MANAGER Location:: [address] [place] [address] BREAKFAST MANAGER Reason for Call: Respiratory Distress, O2 Saturation below 90% BREAKFAST MANAGER Called By: RN - IV IV Inserted during BREAKFAST MANAGER?: No - Respiratory Oxygen Delivery Method: BiPAP @% Received Nebulizer Treatments:: Yes Was the Patient Ventilated with Bag/Mask 100% O2?: No Secretions Suctioned?: No Was the Patient Intubated?: No Was the Patient Placed on a Ventilator?: No - Medication Medications Administered During BREAKFAST MANAGER: Flumazenil 0.1 mg IVP - Diagnostic Test Ordered EKG: No Chest X-Ray: No CT Scan: No CPR started during BREAKFAST MANAGER?: No - Vital Signs Vital Sign: Rapid Response Vital Sign Blood Pressure 134/87 Pulse Rate 98 Respiratory Rate 32 Oxygen Saturation 78 - Finger Stick Blood Glucose Finger Stick Blood Glucose: 156 - Time BREAKFAST MANAGER Ended Time BREAKFAST MANAGER Ended: 06:30 - Vital Signs at end of BREAKFAST MANAGER Vital Signs at end of BREAKFAST MANAGER: Rapid Response End Vital Sign Blood Pressure 135/48 Pulse Rate 94 Respiratory Rate 24 O2 Sat by Pulse Oximetry 99 - Respiratory Oxygen Delivery Method: BiPAP @% - Constitutional Appears: Other (Mild distress with labored breathing; on BiPAP). absent: Confused - Head Head Exam: ATRAUMATIC, NORMAL INSPECTION, NORMOCEPHALIC - Eyes Eye Exam: EOMI, Normal appearance - Respiratory Exam Respiratory Exam: Clear to Ausculation Bilateral. absent: Rales, Rhonchi, Wheezes - Cardiovascular Exam Cardiovascular Exam: RRR, +S1, +S2 - GI/Abdominal Exam GI & Abdominal Exam: Soft, Normal Bowel Sounds. absent: Guarding, Tenderness, Organomegaly, Pulsatile Mass, Rebound - Neurological Exam Neurological Exam: Alert, CN II-XII Intact, Oriented x3 - Extremities Exam Extremities Exam: Normal Capillary Refill, Normal Inspection Plan - Assessment of Findings&Treatment Plan PGY1 BREAKFAST MANAGER Note BREAKFAST MANAGER was called for patient desaturating on the floor while on BiPAP. Patient was given 0.5mg IVP ativan for her anxiety overnight. However, she had labored breathing throughout the night. As per nursing staff, patient desaturated to 70's. However, once medical team arrived her saturation improved to 90s. Otherwise, remaining vital signs were stable. BP normotensive. HR also wnl. P atient is not altered and responds to questions appropriately. She was administered Flumazenil 0.1mg IVP once to reverse the ativan administration. Patient is stable at this time. Endorsed to day team that patient may be sensitive to ativan and should be given a lower dose if necessary. <Leonor Aaron - Last Filed: 08/16/18 06:41> BREAKFAST MANAGER Nurse Assessment - Vital Signs Vital Sign: Rapid Response Vital Sign Blood Pressure 135/48 Pulse Rate 86 Respiratory Rate 30 Oxygen Saturation 99 - Vital Signs at end of BREAKFAST MANAGER Vital Signs at end of BREAKFAST MANAGER: Rapid Response End Vital Sign Blood Pressure 136/83 Pulse Rate 94 Respiratory Rate 24 O2 Sat by Pulse Oximetry 95 Attending/Attestation - Attestation I have personally seen and examined this patient.: Yes I have fully participated in the care of the patient.: Yes I have reviewed all pertinent clinical information, including history, physical exam and plan: Yes Notes (Text): 08/16/18 06:40 CCT: 30 minutes. Patient was intubated with size 7.5 ETT .Position was confirmed by CO2 detector, auscultation, cxr.
[2018-08-15] MEDS ORDERED: Midazolam 2 MG/2 ML VIAL ONE (07:10)
[2018-08-15] MEDS ORDERED: Midazolam 2 MG/2 ML VIAL IV ONE (07:15)
[2018-08-15] MEDS ORDERED: Magnesium Sulfate 2 gm/50 ml 2 GM/50 ML BAG IVPB ONE (07:17)
--- NOTE | 2018-08-15 08:39 | CON ---
DATE: 08/14/2018 CONSULT SERVICE: Cardiology. REASON FOR CONSULTATION: Followup of atrial fibrillation with rapid ventricular rate. BRIEF CLINICAL HISTORY: This is a 72-year-old female with past medical history significant for COPD, paroxysmal atrial fibrillation, nonischemic cardiomyopathy status post cardiac catheterization, noncompliant with medications, and active tobacco abuse, who came in with acute exacerbation of COPD and AFib with a rapid ventricular rate. Cardiac consult was called for AFib with a rapid ventricular rate. The patient denies any chest pain, but complained of shortness of breath and very anxious. PAST MEDICAL HISTORY: Significant for paroxysmal atrial fibrillation, nonischemic cardiomyopathy status post cardiac catheterization, COPD, and anxiety disorder. PAST SURGICAL HISTORY: Significant for robotic left lower lobe wedge resection and lymphadenectomy on 06/26/2015. Polypectomy and left lung nodule removed two years ago at [facility]. ALLERGIES: TO AZITHROMYCIN. SOCIAL HISTORY: Active tobacco abuse. Denies any history of alcohol abuse. CURRENT MEDICATIONS: The patient is taking Cardizem, warfarin, sertraline, Seroquel, Protonix, Lopressor, gabapentin, Lasix, Advair Diskus nebulizer, Ventolin HFA, and Xanax. RECENT CARDIAC WORKUP: As follows; the patient had a stress test on 06/12/2016 that shows ischemia at 37% following which the patient had a cardiac catheterization dated 06/29/2016 that shows nonobstructive coronary artery disease, very distant LAD disease, no significant flow-limiting stenosis, ejection fraction was 35% to 40%, EDP in the range of 20, no gradient across the aortic valve noted on pullback. Echo at that time revealed [id number] aortic stenosis, but no gradient across the aortic valve on cardiac catheterization. Medical treatment recommended including digoxin, diuretic, and LADARIUS inhibitors; Coreg and Coumadin. The patient had a repeat echo on 05/30/2015; ejection fraction 35%. A repeat echo on 05/30/2017 showed ejection fraction of 55% to 60% and [id number] aortic stenosis. The patient had a MUGA scan done on 09/17/2017 that showed 56%, normal RV. Multiple EKGs show atrial fibrillation. REVIEW OF SYSTEMS: As per HPI. PHYSICAL EXAMINATION: GENERAL: Height of the patient is 5 feet 2 inches, weight of the patient is 136 pounds, body mass index 25 kg/M2. VITAL SIGNS: Temperature afebrile, heart rate 140, blood pressure 142/114. HEENT: PERRLA, EOM's intact. NECK: Supple. No carotid bruits or thyromegaly. CHEST: Scattered rhonchi, using accessory muscles. ABDOMEN: Soft. EXTREMITIES: Clubbing and cyanosis negative. LABORATORY DATA: WBC 9.6, hemoglobin 13.8, hematocrit 42.6, platelet count 294. Chemistry showed sodium 130, potassium 4, chloride 94, CO2 of 27, anion gap of 15, BUN 10, creatinine 0.6. Troponin is 0.01, negative. BNP of 1930. EKG shows atrial fibrillation with a rapid ventricular rate. Chest x-ray showed increasing vascular interstitial congestion, mild cardiomegaly. IMPRESSION: A 72-year-old female with past medical history significant for atrial fibrillation, tobacco abuse, nonischemic coronary artery disease by cardiac catheterization, comprehensive metabolic panel now which is significantly improved from last echocardiography and MUGA scan, admitted with acute exacerbation of chronic obstructive pulmonary disease and atrial fibrillation with rapid ventricular rate. RECOMMENDATIONS: Continue anticoagulation. INR is 1.37 suggestive of subtherapeutic INR. We will give dose of Lovenox until the INR gets therapeutic. We will give digoxin IV and give another digoxin and continue Cardizem with verapamil 2.5 mg b.i.d. We will give Lasix one dose stat. Further recommendations will depend upon the hospital course. Give another dose of digoxin at 10 p.m. Digoxin level is 0.4, it looks like the patient is apparently very noncompliant, does not take digoxin. We will load him with digoxin for a total of 1 mg and then follow p.o. We will follow with you. Thank you Dr. Walters for providing us the opportunity in taking care of the patient, Alecia Arciniega. Mak Mendez MD
--- NOTE | 2018-08-15 08:58 | RAD ---
Date of service: 08/15/2018 HISTORY: ET tube position COMPARISON: 08/14/2018 TECHNIQUE: 1 view obtained. FINDINGS: LUNGS: Mild vascular congestion. Patchy infiltrates at the right lung base. Endotracheal tube in satisfactory position PLEURA: No significant pleural effusion identified, no pneumothorax apparent. CARDIOVASCULAR: No aortic atherosclerotic calcification present. Normal cardiac size. No pulmonary vascular congestion. OSSEOUS STRUCTURES: No significant abnormalities. VISUALIZED UPPER ABDOMEN: Normal. OTHER FINDINGS: None. IMPRESSION: Mild vascular congestion. Patchy infiltrates at the right lung base. Endotracheal tube in satisfactory position
[2018-08-15] MEDS ORDERED: diltiaZEM IVPB 100mg in NS 100 ML IV PRN (09:04)
[2018-08-15 09:10] LABS: ARTERIAL BLOOD GAS HCO3 25.4 mmol/L (21-28); ARTERIAL BLOOD GAS HEMOGLOBIN 13.6 g/dL (11.7-17.4); ARTERIAL BLOOD GAS O2 CAPACITY 19.8 mL/dl (16-24); ARTERIAL BLOOD GAS O2 CONTENT 19.7 ML/dl (15-23); ARTERIAL BLOOD GAS O2 SAT 99.7 % (95-98); ARTERIAL BLOOD GAS PCO2 58 mm/Hg (35-45); ARTERIAL BLOOD GAS PH 7.25 (7.35-7.45); ARTERIAL BLOOD GAS TCO2 27.2 mmol.L (22-28)
[2018-08-15] MEDS: cefTRIAXone 1 gm 1 GM/100 ML BAG IVPB SCH (09:10)
[2018-08-15] MEDS: Enoxaparin 60 mg Syringe SC SCH ×2 (09:13→22:03)
[2018-08-15 09:20] LABS: TROPONIN I 0.15 ng/mL
[2018-08-15 09:23] LABS: ALB/GLOB RATIO 1.5 (1.1-1.8); ALBUMIN 4.4 g/dL (3.0-4.8); ALT/SGPT 94 U/L (7-56); AST/SGOT 97 U/L (14-36); BLOOD UREA NITROGEN 24 mg/dL (7-21); CALCIUM 9.3 mg/dL (8.4-10.5); GFR NON-AFRICAN AMERICAN 55
[2018-08-15] MEDS ORDERED: Sodium Bicarbonate (8.4%) 50 Meq Syringe IVP ONE (09:54)
[2018-08-15] MEDS ORDERED: Dextrose 50% SYRINGE Inj (50 ml) IV PRN (09:54)
[2018-08-15] MEDS ORDERED: Insulin Regular 1 UNITS/0.01 ML ML SC ONE (09:55)
[2018-08-15] MEDS ORDERED: Digoxin 125 mcg (0.125 mg) Tab PO SCH (10:00)
[2018-08-15 10:43] LABS: BARBITURATES, UR NEGATIVE (NEGATIVE); BENZODIAZEPINES, UR POSITIVE (NEGATIVE); OPIATES, UR NEGATIVE (NEGATIVE); PHENCYCLIDINE, UR NEGATIVE (NEGATIVE)
--- NOTE | 2018-08-15 10:45 | CP.PCM.PN ---
Subjective - Date & Time of Evaluation Date of Evaluation: 08/15/18 Time of Evaluation: 06:40 - Subjective Subjective: In respiratory distress, Bipap/Cpap in use, low oxygen saturation Reason for consultation and follow up: Cardiac evaluation of rapid atrial fibrillation. Seen and examined by me and Dr. Mendez Objective - Vital Signs/Intake and Output Vital Signs (last 24 hours): Temp Pulse Resp BP Pulse Ox 98.0 F 105 H 26 H 119/74 97 08/15/18 06:00 08/15/18 07:45 08/15/18 06:00 08/15/18 09:12 08/15/18 00:01 Intake and Output: 08/15/18 08/15/18 06:59 18:59 Output Total 1200 Balance -1200 - Medications Medications: Current Medications Atorvastatin Calcium (Lipitor) 10 mg PO HS [facility] Last Admin: 08/14/18 22:03 Dose: 10 mg Dextrose (Dextrose 50% Inj) 0 ml IV STAT PRN; Protocol PRN Reason: Hypoglycemia Protocol Digoxin (Digoxin) 0.125 mg PO DAILY [facility] Digoxin (Lanoxin) 0.125 mg IVP 1400 [facility] Enoxaparin Sodium (Lovenox) 60 mg 1 mg/kg (60 mg) SC Q12H [facility]; Protocol Last Admin: 08/15/18 09:13 Dose: 60 mg Famotidine (Pepcid) 20 mg PO DAILY [facility] Last Admin: 08/15/18 09:56 Dose: 20 mg Furosemide (Lasix) 40 mg PO DAILY [facility] Furosemide (Lasix) 40 mg IVP DAILY [facility] Last Admin: 08/15/18 09:12 Dose: 40 mg Gabapentin (Neurontin) 400 mg PO QID [facility]; Protocol Last Admin: 08/15/18 09:13 Dose: Not Given Doxycycline Hyclate 100 mg/ (Sodium Chloride) 100 mls @ 100 mls/hr IVPB Q12 [facility]; Protocol Last Admin: 08/15/18 09:11 Dose: 100 mls/hr Ceftriaxone Sodium (Rocephin 1 Gram Ivpb) 1 gm in 100 mls @ 100 mls/hr IVPB DAILY [facility]; Protocol Last Admin: 08/15/18 09:10 Dose: 100 mls/hr diltiaZEM IVPB 100mg in NS (Cardizem 100mg In Ns) 100 mls @ 5 mls/hr IV .Q20H P RN; Protocol PRN Reason: TITRATE PER MD ORDER Last Admin: 08/15/18 09:54 Dose: 5 mg/hr, 5 mls/hr Dextrose (Dextrose 5% In Water 1000 Ml) 1,000 mls @ 0 mls/hr IV .Q0M PRN; Protocol PRN Reason: Hypoglycemia Protocol Levalbuterol HCl (Xopenex) 1.25 mg IH [id number] PRN PRN Reason: Shortness of Breath Last Admin: 08/15/18 00:02 Dose: 1.25 mg Levalbuterol HCl (Xopenex) 0.63 mg IH [id number] PRN PRN Reason: Shortness of Breath Last Admin: 08/15/18 06:29 Dose: 0.63 mg Methylprednisolone (Solu-Medrol) 40 mg IVP Q8H [facility] Last Admin: 08/15/18 04:13 Dose: 40 mg Verapamil HCl (Verapamil Inj) 2.5 mg IVP Q6H PRN PRN Reason: Heart rate Last Admin: 08/14/18 18:52 Dose: 2.5 mg - Labs Labs: 08/15/18 06:10 08/15/18 08:10 PT 15.1 SECONDS (9.4-12.5) H 08/15/18 06:10 INR 1.34 08/15/18 06:10 APTT 43.0 Seconds (26.9-38.3) H 08/14/18 06:55 - Constitutional Appears: In Acute Distress - Head Exam Head Exam: NORMAL INSPECTION - ENT Exam ENT Exam: Mucous Membranes Dry - Respiratory Exam Respiratory Exam: Decreased Breath Sounds Additional comments: respiratory distress inspite on Bipap/cpap use - Cardiovascular Exam Cardiovascular Exam: Irregular Rhythm, +S1, +S2 Additional comments: Telemetry atrial fibrillation 90-100's - GI/Abdominal Exam GI & Abdominal Exam: Soft, Normal Bowel Sounds - Extremities Exam Extremities Exam: Full ROM, Normal Capillary Refill - Neurological Exam Additional comments: lethargic but arousable - Psychiatric Exam Psychiatric exam: Anxious - Skin Skin Exam: Dry, Normal Color, Warm Assessment and Plan - Assessment and Plan (Free Text) Assessment: A 72 year old female who came to the ER due to complaints of worsening shortness of breath for the past few days. History of atrial fibrillation on Coumadin, CO PD, on home oxygen,non ischemic cardiomyopathy, coronary artery disease, diastolic CHF, anxiety, hypertension,Robotic assisted Left VATS with wedge resection and lymph node biopsy 06/2015, polypectomy, Current smoker. Non compliant with medications. Stress test was abnormal/positive on 06/14/16 with LVEF of 37% thus cardiac catheterization was done on 06/29/16 and showed non-obstructive coronary artery disease limited to very distal LAD diffusely diseased like thread but no focal limiting flow noted, LVEF 35-40%, non ischemic cardiomyopathy, chronic atrial fibrillation..MUGA scan done on 09/17/17 showed LVEF of 56% which improved compared to previous studies, Echo done on 01/25/18 and showed LVEF 54%, mild to moderate TR/MR. Consult was called for rapid atrial fibrillation. Admitted for exacerbation of chronic COPD and rapid atrial fibrillation. Digitalized yesterday with total of 1 mg Digoxin given. Digoxin level was less than 0.4. Continue Cardizem and Verapamil. Worsening shortness of breath/respiratory distress staff mechanical engineer with low oxygen saturation with BiPap/Cpap in use. Post COMPUTER TECHNICIAN for respiratory distress. ABG done and showed respiratory acidosis requiring intubation. Intubated and transferred to ICU for further management. Plan: Severe respiratory distress, on Bipap/Cpap Nebulizer treatment given Heart rate controlled, atrial fibrillation 90-100's Stable blood pressure ABG done and showed respiratory acidosis COMPUTER TECHNICIAN was called Intubated Transferred to ICU for further management Will follow up Plan and treatment discussed with Dr. Mendez
[2018-08-15] MEDS: Albuterol-Ipratrop 3 mg / 0.5 (3 ml) UD IH SCH ×3 (11:17→20:23)
--- NOTE | 2018-08-15 12:31 | RAD ---
Date of service: 08/15/2018 HISTORY: ogt placement COMPARISON: No prior. TECHNIQUE: 1 view obtained. FINDINGS: LUNGS: No active pulmonary disease. PLEURA: No significant pleural effusion identified, no pneumothorax apparent. CARDIOVASCULAR: No aortic atherosclerotic calcification present. Normal cardiac size. No pulmonary vascular congestion. OSSEOUS STRUCTURES: No significant abnormalities. VISUALIZED UPPER ABDOMEN: Normal. OTHER FINDINGS: None. IMPRESSION: 0 GT in satisfactory position
[2018-08-15 12:45] LABS: BLOOD UREA NITROGEN 27 mg/dL (7-21); CALCIUM 9.2 mg/dL (8.4-10.5); GFR NON-AFRICAN AMERICAN > 60
--- NOTE | 2018-08-15 13:54 | CP.PCM.PCO ---
Physician Communication Note - Physician Communication Note Physician Communication Note: pt with GEOGRAPHY INSTRUCTOR this am and tx to unit for mgmt, will follow
[2018-08-15] MEDS ORDERED: Digoxin 500 mcg/2ml (0.5 mg/2ml) Inj IVP SCH ×2 (14:00)
--- NOTE | 2018-08-15 15:28 | CP.PCM.CON ---
<Sánchez Nguyen - Last Filed: 08/15/18 15:55> History of Present Illness - History of Present Illness History of Present Illness: PGY-[address] Rodriguez Mrs Arciniega is a 72 year old female with a PMHx of paroxysmal atrial fibrillation on coumadin, non-ischemic cardiomyopathy, CAD, poorly controlled non home O2 COPD secondary to medication compliance and secondary to tobacco abuse who presented to the ED for shortness of breath for the past few days. This morning patient began to desaturate into 70s. She received ativan 0.5mg ivp overnight and was given flumazenil 0.1mg ivp to reverse the ativan. She was also not wearing the bipap mask overnight as advised - thus likely CO2 narcosis element involved. ABG performed during INFORMATICS SPEC showed severe respiratory acidosis and given altered mental status, decision was made to intubate. She is now in ICU intubated without sedation. PMHx: paroxysmal atrial fibrillation, non-ischemic cardiomyopathy, CAD, COPD, anxiety PSHx: robotic left lower wedge resection and lymphaderectomy 06/2015, polypectomy, left lung nodule removed 2 yrs ago at [facility] ALL: Azithromycin SOCHx: Tobacco: current everyday smoker, ETOH: Social, ID: Denies MEDS: Diltiazem, warfarin, sertraline, seroquel, protonix, lopressor, gabapentin, lasix, advair 250/50, lipitor, duoneb,ventolin hfa, xanax PMD: Dr. Casas Review of Systems - Review of Systems Systems not reviewed;Unavailable: Intubated Past Patient History - Infectious Disease Hx of Infectious Diseases: None - Past Medical History & Family History Past Medical History?: Yes - Past Social History Smoking Status: Current Some Days Smoker - CARDIAC Hx Cardiac Disorders: Yes (A fib, cardiac cath x 1 with cardiac stent.) Hx Congestive Heart Failure: Yes (diastolic) Hx Hypertension: Yes - PULMONARY Hx Respiratory Disorders: Yes - NEUROLOGICAL Hx Neurological Disorder: Yes (headaches) Hx Dizziness: Yes - HEENT Hx HEENT Problems: No - RENAL Hx Chronic Kidney Disease: No - ENDOCRINE/METABOLIC Hx Endocrine Disorders: No - HEMATOLOGICAL/ONCOLOGICAL Hx Blood Disorders: No - INTEGUMENTARY Hx Dermatological Problems: Yes (MULTIPLE BRUISING FROM FALLS) - MUSCULOSKELETAL/RHEUMATOLOGICAL Hx Musculoskeletal Disorders: Yes Hx Falls: Yes Hx Unsteady Gait: Yes - GASTROINTESTINAL Hx Gastrointestinal Disorders: Yes (reflux) - GENITOURINARY/GYNECOLOGICAL Hx Genitourinary Disorders: No - PSYCHIATRIC Hx Psychophysiologic Disorder: Yes Hx Anxiety: Yes Hx Depression: Yes Hx Substance Use: No - SURGICAL HISTORY Hx Cardiac Catheterization: Yes (X1) Hx Coronary Stent: Yes (unknown) Other/Comment: robotic left lower wedge resection and lymphaderectomy 06/2015, polypectomy, left lung nodule removed 2 yrs ago at [facility] - ANESTHESIA Hx Anesthesia: Yes Hx Anesthesia Reactions: No Hx Malignant Hyperthermia: No Meds Allergies/Adverse Reactions: Allergies Allergy/AdvReac Type Severity Reaction Status Date / Time azithromycin [From Zithromax] AdvReac Intermediate RASH Verified 08/03/18 16:14 lorazepam AdvReac Verified 08/15/18 07:56 - Medications Medications: Current Medications Albuterol/Ipratropium (Duoneb 3 Mg/0.5 Mg (3 Ml) Ud) 3 ml IH [id number] [facility] Last Admin: 08/15/18 13:05 Dose: 3 ml Aspirin (Aspirin Chewable) 81 mg PO DAILY [facility] Last Admin: 08/15/18 11:27 Dose: 81 mg Atorvastatin Calcium (Lipitor) 10 mg PO HS [facility] Last Admin: 08/14/18 22:03 Dose: 10 mg Dextrose (Dextrose 50% Inj) 0 ml IV STAT PRN; Protocol PRN Reason: Hypoglycemia Protocol Digoxin (Digoxin) 0.125 mg PO DAILY [facility] Digoxin (Lanoxin) 0.125 mg IVP 1400 [facility] Last Admin: 08/15/18 13:48 Dose: 0.125 mg Enoxaparin Sodium (Lovenox) 60 mg 1 mg/kg (60 mg) SC Q12H [facility]; Protocol Last Admin: 08/15/18 09:13 Dose: 60 mg Famotidine (Pepcid) 20 mg PO DAILY [facility] Last Admin: 08/15/18 09:56 Dose: 20 mg Furosemide (Lasix) 40 mg PO DAILY [facility] Furosemide (Lasix) 40 mg IVP DAILY [facility] Last Admin: 08/15/18 09:12 Dose: 40 mg Gabapentin (Neurontin) 400 mg PO QID [facility]; Protocol Last Admin: 08/15/18 13:47 Dose: 400 mg Doxycycline Hyclate 100 mg/ (Sodium Chloride) 100 mls @ 100 mls/hr IVPB Q12 [facility]; Protocol Last Admin: 08/15/18 09:11 Dose: 100 mls/hr Ceftriaxone Sodium (Rocephin 1 Gram Ivpb) 1 gm in 100 mls @ 100 mls/hr IVPB DAILY [facility]; Protocol Last Admin: 08/15/18 09:10 Dose: 100 mls/hr diltiaZEM IVPB 100mg in NS (Cardizem 100mg In Ns) 100 mls @ 5 mls/hr IV .Q20H PRN; Protocol PRN Reason: TITRATE PER MD ORDER Last Titration: 08/15/18 11:32 Dose: 0 mg/hr, 0 mls/hr Dextrose (Dextrose 5% In Water 1000 Ml) 1,000 mls @ 0 mls/hr IV .Q0M PRN; Protocol PRN Reason: Hypoglycemia Protocol Levalbuterol HCl (Xopenex) 1.25 mg IH [id number] PRN PRN Reason: Shortness of Breath Last Admin: 08/15/18 00:02 Dose: 1.25 mg Levalbuterol HCl (Xopenex) 0.63 mg IH [id number] PRN PRN Reason: Shortness of Breath Last Admin: 08/15/18 06:29 Dose: 0.63 mg Methylprednisolone (Solu-Medrol) 40 mg IVP Q8H [facility] Last Admin: 08/15/18 11:27 Dose: 40 mg Verapamil HCl (Verapamil Inj) 2.5 mg IVP Q6H PRN PRN Reason: Heart rate Last Admin: 08/14/18 18:52 Dose: 2.5 mg Physical Exam - Constitutional Appears: Other (intubated) - Head Exam Head Exam: ATRAUMATIC, NORMAL INSPECTION - Eye Exam Eye Exam: EOMI, Normal appearance, PERRL. absent: Scleral icterus - ENT Exam ENT Exam: Mucous Membranes Moist - Respiratory Exam Respiratory Exam: Wheezes - Cardiovascular Exam Cardiovascular Exam: Tachycardia, Irregular Rhythm, +S1, +S2. absent: JVD, Systolic Murmur - GI/Abdominal Exam GI & Abdominal Exam: Normal Bowel Sounds, Soft. absent: Distended, Firm, Tenderness - Extremities Exam Extremities exam: Positive for: normal inspection - Neurological Exam Neurological exam: Altered - Skin Skin Exam: Dry, Intact, Normal Color, Warm Results - Vital Signs Recent Vital Signs: Last Vital Signs Temp 99.3 F 08/15/18 12:00 Pulse 102 H 08/15/18 14:00 Resp 26 H 08/15/18 06:00 BP 133/78 08/15/18 14:00 Pulse Ox 96 08/15/18 14:00 - Labs Result Diagrams: 08/15/18 06:10 08/15/18 12:00 Labs: Laboratory Results - last 24 hr 08/14/18 08/15/18 08/15/18 09:41 06:10 06:10 WBC 12.8 H D RBC 5.14 Hgb 15.0 Hct 46.5 MCV 90.5 MCH 29.2 MCHC 32.3 RDW 14.5 Plt Count 437 MPV 9.2 PT 15.1 H INR 1.34 pCO2 pO2 HCO3 ABG pH ABG Total CO2 ABG O2 Saturation ABG O2 Content ABG Base Excess ABG Hemoglobin ABG Carboxyhemoglobin POC ABG HHb (Measured) ABG Methemoglobin ABG O2 Capacity ABG Potassium Hgb O2 Saturation Sodium Chloride Glucose Lactate FiO2 Crit Value Called To Crit Value Called By Blood Gas Notified Time Potassium Carbon Dioxide Anion Gap BUN Creatinine Est GFR ( Amer) Est GFR (Non-Af Amer) Random Glucose Calcium Magnesium Total Bilirubin AST ALT Alkaline Phosphatase Troponin I Total Protein Albumin Globulin Albumin/Globulin Ratio Arterial Blood Potassium Urine Opiates Screen Negative Urine Methadone Screen Negative Ur Barbiturates Screen Negative Ur Phencyclidine Scrn Negative Ur Amphetamines Screen Negative U Benzodiazepines Scrn Positive H U Oth Cocaine Metabols Negative U Cannabinoids Screen Negative 08/15/18 08/15/18 08/15/18 06:35 08:10 09:00 WBC RBC Hgb Hct MCV MCH MCHC RDW Plt Count MPV PT INR pCO2 69 H 58 H pO2 162.0 H 408.0 H HCO3 24.6 25.4 ABG pH 7.16 L* 7.25 L ABG Total CO2 26.7 27.2 ABG O2 Saturation 99.6 H 99.7 H ABG O2 Content 19.7 ABG Base Excess -5.4 L -2.8 L ABG Hemoglobin 13.6 ABG Carboxyhemoglobin 1.2 POC ABG HHb (Measured) 0.3 ABG Methemoglobin 1.0 ABG O2 Capacity 19.8 ABG Potassium 5.0 Hgb O2 Saturation 97.5 Sodium 131.0 L 134 Chloride 100.0 95 L Glucose 146 H Lactate 1.5 FiO2 40.0 80.0 Crit Value Called To Omer rn Crit Value Called By [facility] Blood Gas Notified Time 643 Potassium 5.8 H* D Carbon Dioxide 26 Anion Gap 19 BUN 24 H Creatinine 1.0 Est GFR ( Amer) > 60 Est GFR (Non-Af Amer) 55 Random Glucose 138 H Calcium 9.3 Magnesium 2.0 Total Bilirubin 0.6 AST 97 H D ALT 94 H Alkaline Phosphatase 69 Troponin I 0.15 H* D Total Protein 7.3 Albumin 4.4 Globulin 2.9 Albumin/Globulin Ratio 1.5 Arterial Blood Potassium 5.0 Urine Opiates Screen Urine Methadone Screen Ur Barbiturates Screen Ur Phencyclidine Scrn Ur Amphetamines Screen U Benzodiazepines Scrn U Oth Cocaine Metabols U Cannabinoids Screen 08/15/18 12:00 WBC RBC Hgb Hct MCV MCH MCHC RDW Plt Count MPV PT INR pCO2 pO2 HCO3 ABG pH ABG Total CO2 ABG O2 Saturation ABG O2 Content ABG Base Excess ABG Hemoglobin ABG Carboxyhemoglobin POC ABG HHb (Measured) ABG Methemoglobin ABG O2 Capacity ABG Potassium Hgb O2 Saturation Sodium 134 Chloride 94 L Glucose Lactate FiO2 Crit Value Called To Crit Value Called By Blood Gas Notified Time Potassium 4.5 Carbon Dioxide 28 Anion Gap 16 BUN 27 H Creatinine 0.9 Est GFR ( Amer) > 60 Est GFR (Non-Af Amer) > 60 Random Glucose 122 H Calcium 9.2 Magnesium Total Bilirubin AST ALT Alkaline Phosphatase Troponin I Total Protein Albumin Globulin Albumin/Globulin Ratio Arterial Blood Potassium Urine Opiates Screen Urine Methadone Screen Ur Barbiturates Screen Ur Phencyclidine Scrn Ur Amphetamines Screen U Benzodiazepines Scrn U Oth Cocaine Metabols U Cannabinoids Screen Assessment & Plan - Assessment and Plan (Free Text) Plan: Mrs Arciniega is a 72 year old female with a PMHx of paroxysmal atrial fibrill ation, non-ischemic cardiomyopathy, CAD, poorly controlled non home O2 COPD secondary to medication compliance and secondary to tobacco abuse who presented to the ED for shortness of breath for the past few days: Cardiovascular: #NSTEMI, #Paroxysmal Atrial Fibrillation, #Diastolic CHF, #CAD, Non-Ischemic Cardiomyopathy -cardiology consulted, Dr Mendez -troponin <0.01 -> 0.15 -probnp 193 -echo 01/2018 showed EF 54%, limited study, mild TR, mild MR -cardizem drip prn to control heart rate -digoxin 0.125mg ivp qd, loaded with digoxin 1g on day of admission as digoxin level was < 0.4 likely non-compliance with med at home -anticoagulation with lovenox 60mg sc q12h -aspirin 81mg po qd, lipitor 10mg po hs -verapamil 2.5mg ivp q6h prn for HR > 130 -lasix 40mg ivp qd Pulmonary: #COPD Exacerbation -intubated on vent 35/5/15/450 - repeat ABG shows improvement -plan is to hopefully extubate her tomorrow -duoneb scheduled q6h -solumedrol 40mg ivp q8h ID: #Leukocytosis - tx empirically for COPD exacerbation - doxycycline 100mg ivp q12h (started 08/14) and rocephin 1g ivp qd (started 08/15) - f/u blood cx Renal: #Hyperkalemia, resolved -received 1 dose of patiromer Neuro: - currently not sedated GI: - w/ OGT PPx: pepcid 20mg po qd <Derian Rodriguez - Last Filed: 08/15/18 16:02> Meds - Medications Medications: Current Medications Albuterol/Ipratropium (Duoneb 3 Mg/0.5 Mg (3 Ml) Ud) 3 ml IH [id number] [facility] Last Admin: 08/15/18 13:05 Dose: 3 ml Aspirin (Aspirin Chewable) 81 mg PO DAILY [facility] Last Admin: 08/15/18 11:27 Dose: 81 mg Atorvastatin Calcium (Lipitor) 10 mg PO HS [facility] Last Admin: 08/14/18 22:03 Dose: 10 mg Dextrose (Dextrose 50% Inj) 0 ml IV STAT PRN; Protocol PRN Reason: Hypoglycemia Protocol Digoxin (Digoxin) 0.125 mg PO DAILY [facility] Digoxin (Lanoxin) 0.125 mg IVP 1400 [facility] Last Admin: 08/15/18 13:48 Dose: 0.125 mg Enoxaparin Sodium (Lovenox) 60 mg 1 mg/kg (60 mg) SC Q12H [facility]; Protocol Last Admin: 08/15/18 09:13 Dose: 60 mg Famotidine (Pepcid) 20 mg PO DAILY [facility] Last Admin: 08/15/18 09:56 Dose: 20 mg Furosemide (Lasix) 40 mg PO DAILY [facility] Furosemide (Lasix) 40 mg IVP DAILY [facility] Last Admin: 08/15/18 09:12 Dose: 40 mg Gabapentin (Neurontin) 400 mg PO QID [facility]; Protocol Last Admin: 08/15/18 13:47 Dose: 400 mg Doxycycline Hyclate 100 mg/ (Sodium Chloride) 100 mls @ 100 mls/hr IVPB Q12 [facility]; Protocol Last Admin: 08/15/18 09:11 Dose: 100 mls/hr Ceftriaxone Sodium (Rocephin 1 Gram Ivpb) 1 gm in 100 mls @ 100 mls/hr IVPB DAILY [facility]; Protocol Last Admin: 08/15/18 09:10 Dose: 100 mls/hr diltiaZEM IVPB 100mg in NS (Cardizem 100mg In Ns) 100 mls @ 5 mls/hr IV .Q20H PRN; Protocol PRN Reason: TITRATE PER MD ORDER Last Titration: 08/15/18 11:32 Dose: 0 mg/hr, 0 mls/hr Dextrose (Dextrose 5% In Water 1000 Ml) 1,000 mls @ 0 mls/hr IV .Q0M PRN; Protocol PRN Reason: Hypoglycemia Protocol Levalbuterol HCl (Xopenex) 1.25 mg IH [id number] PRN PRN Reason: Shortness of Breath Last Admin: 08/15/18 00:02 Dose: 1.25 mg Levalbuterol HCl (Xopenex) 0.63 mg IH [id number] PRN PRN Reason: Shortness of Breath Last Admin: 08/15/18 06:29 Dose: 0.63 mg Methylprednisolone (Solu-Medrol) 40 mg IVP Q8H [facility] Last Admin: 08/15/18 11:27 Dose: 40 mg Verapamil HCl (Verapamil Inj) 2.5 mg IVP Q6H PRN PRN Reason: Heart rate Last Admin: 08/14/18 18:52 Dose: 2.5 mg Results - Vital Signs Recent Vital Signs: Last Vital Signs Temp 99.3 F 08/15/18 12:00 Pulse 102 H 08/15/18 14:00 Resp 26 H 08/15/18 06:00 BP 133/78 08/15/18 14:00 Pulse Ox 96 08/15/18 14:00 - Labs Result Diagrams: 08/15/18 06:10 08/15/18 12:00 Labs: Laboratory Results - last 24 hr 08/14/18 08/15/18 08/15/18 09:41 06:10 06:10 WBC 12.8 H D RBC 5.14 Hgb 15.0 Hct 46.5 MCV 90.5 MCH 29.2 MCHC 32.3 RDW 14.5 Plt Count 437 MPV 9.2 PT 15.1 H INR 1.34 pCO2 pO2 HCO3 ABG pH ABG Total CO2 ABG O2 Saturation ABG O2 Content ABG Base Excess ABG Hemoglobin ABG Carboxyhemoglobin POC ABG HHb (Measured) ABG Methemoglobin ABG O2 Capacity ABG Potassium Hgb O2 Saturation Sodium Chloride Glucose Lactate FiO2 Crit Value Called To Crit Value Called By Blood Gas Notified Time Potassium Carbon Dioxide Anion Gap BUN Creatinine Est GFR ( Amer) Est GFR (Non-Af Amer) Random Glucose Calcium Magnesium Total Bilirubin AST ALT Alkaline Phosphatase Troponin I Total Protein Albumin Globulin Albumin/Globulin Ratio Arterial Blood Potassium Urine Opiates Screen Negative Urine Methadone Screen Negative Ur Barbiturates Screen Negative Ur Phencyclidine Scrn Negative Ur Amphetamines Screen Negative U Benzodiazepines Scrn Positive H U Oth Cocaine Metabols Negative U Cannabinoids Screen Negative 08/15/18 08/15/18 08/15/18 06:35 08:10 09:00 WBC RBC Hgb Hct MCV MCH MCHC RDW Plt Count MPV PT INR pCO2 69 H 58 H pO2 162.0 H 408.0 H HCO3 24.6 25.4 ABG pH 7.16 L* 7.25 L ABG Total CO2 26.7 27.2 ABG O2 Saturation 99.6 H 99.7 H ABG O2 Content 19.7 ABG Base Excess -5.4 L -2.8 L ABG Hemoglobin 13.6 ABG Carboxyhemoglobin 1.2 POC ABG HHb (Measured) 0.3 ABG Methemoglobin 1.0 ABG O2 Capacity 19.8 ABG Potassium 5.0 Hgb O2 Saturation 97.5 Sodium 131.0 L 134 Chloride 100.0 95 L Glucose 146 H Lactate 1.5 FiO2 40.0 80.0 Crit Value Called To Omer rn Crit Value Called By [facility] Blood Gas Notified Time 643 Potassium 5.8 H* D Carbon Dioxide 26 Anion Gap 19 BUN 24 H Creatinine 1.0 Est GFR ( Amer) > 60 Est GFR (Non-Af Amer) 55 Random Glucose 138 H Calcium 9.3 Magnesium 2.0 Total Bilirubin 0.6 AST 97 H D ALT 94 H Alkaline Phosphatase 69 Troponin I 0.15 H* D Total Protein 7.3 Albumin 4.4 Globulin 2.9 Albumin/Globulin Ratio 1.5 Arterial Blood Potassium 5.0 Urine Opiates Screen Urine Methadone Screen Ur Barbiturates Screen Ur Phencyclidine Scrn Ur Amphetamines Screen U Benzodiazepines Scrn U Oth Cocaine Metabols U Cannabinoids Screen 08/15/18 12:00 WBC RBC Hgb Hct MCV MCH MCHC RDW Plt Count MPV PT INR pCO2 pO2 HCO3 ABG pH ABG Total CO2 ABG O2 Saturation ABG O2 Content ABG Base Excess ABG Hemoglobin ABG Carboxyhemoglobin POC ABG HHb (Measured) ABG Methemoglobin ABG O2 Capacity ABG Potassium Hgb O2 Saturation Sodium 134 Chloride 94 L Glucose Lactate FiO2 Crit Value Called To Crit Value Called By Blood Gas Notified Time Potassium 4.5 Carbon Dioxide 28 Anion Gap 16 BUN 27 H Creatinine 0.9 Est GFR ( Amer) > 60 Est GFR (Non-Af Amer) > 60 Random Glucose 122 H Calcium 9.2 Magnesium Total Bilirubin AST ALT Alkaline Phosphatase Troponin I Total Protein Albumin Globulin Albumin/Globulin Ratio Arterial Blood Potassium Urine Opiates Screen Urine Methadone Screen Ur Barbiturates Screen Ur Phencyclidine Scrn Ur Amphetamines Screen U Benzodiazepines Scrn U Oth Cocaine Metabols U Cannabinoids Screen Addendum Addendum: 08/15/18 16:00 ICU Attending Addendum Patient seen and examined. Case reviewed on round with housestaff. Agree with resident note above with the following additions/exceptions 72 year old female with a PMHx of paroxysmal atrial fibrillation, non-ischemic cardiomyopathy, CAD, poorly controlled non home O2 COPD secondary to medication compliance and secondary to tobacco abuse who presented to the ED for shortness of breath for the past few days: likely induced by receiving benzo keep off sedation for now cnot low vt ventilation f/u ABG broad spectrum abx hyperK - f/u repeat BMP tx as CODP exasc woith steroids abx and duonebs q 6hrs standing cont cardizem drip for afib rvr f/u cardio recs Rest of care as above in housestaff note Derian Rodriguez MD Pulmonary Critical Care Attending
[2018-08-15] MEDS ORDERED: diltiaZEM 120 mg/24 Hours CD Cap PO SCH (16:45)
[2018-08-15] MEDS: Dexmedetomidine 400mcg/100mL 400 MCG/100 ML BOTTLE IV PRN (17:58)
--- NOTE | 2018-08-15 18:45 | CARD ---
APPROVED REPORT Date of service: 08/15/2018 EKG Measurement Heart [id number] <Conclusion> Atrial fibrillation Septal infarct, age undetermined ST & Marked T wave abnormality, consider anterolateral ischemia Abnormal ECG
--- NOTE | 2018-08-15 20:26 | CP.PCM.PN ---
<Jagjit Singhophe - Last Filed: 08/15/18 20:19> Subjective - Date & Time of Evaluation Date of Evaluation: 08/15/18 Time of Evaluation: 07:15 - Subjective Subjective: Progress Note for Hospitalist Service - Baljeet Singh PGY2 Patient seen and examined this AM. Patient had a rapid response called on her early this AM for respiratory distress. Patient was evaluated and noted to be somnolent but able to open eyes to verbal stimuli, follow simple instructions and maintain BiPAP. She was noted to have recieved ativan 0.5mg prior to rapid response. Patient was stabilized and closely monitored on telemetry floor. Patient shortly after appeared to be more somnolent and less cooperative with exam. Patient had been continued on BiPAP but showed further concerns for protecting her airway. Patient was evaluated and intubated by house doctor. Patient was transferred to ICU on ventilator for closer monitoring. Objective - Vital Signs/Intake and Output Vital Signs (last 24 hours): Temp Pulse Resp BP Pulse Ox 99 F 111 H 26 H 128/92 H 96 08/15/18 16:00 08/15/18 18:00 08/15/18 06:00 08/15/18 18:00 08/15/18 18:00 Intake and Output: 08/15/18 08/16/18 18:59 06:59 Intake Total 822 Output Total 1650 Balance -828 - Medications Medications: Current Medications Albuterol/Ipratropium (Duoneb 3 Mg/0.5 Mg (3 Ml) Ud) 3 ml IH [id number] ON LICENSE OF [facility] Last Admin: 08/15/18 13:05 Dose: 3 ml Aspirin (Aspirin Chewable) 81 mg PO DAILY ON LICENSE OF [facility] Last Admin: 08/15/18 11:27 Dose: 81 mg Atorvastatin Calcium (Lipitor) 10 mg PO HS ON LICENSE OF [facility] Last Admin: 08/14/18 22:03 Dose: 10 mg Dextrose (Dextrose 50% Inj) 0 ml IV STAT PRN; Protocol PRN Reason: Hypoglycemia Protocol Digoxin (Digoxin) 0.125 mg PO DAILY ON LICENSE OF [facility] Digoxin (Lanoxin) 0.125 mg IVP 1400 ON LICENSE OF [facility] Last Admin: 08/15/18 13:48 Dose: 0.125 mg Diltiazem HCl (Cardizem) 30 mg PO Q6H ON LICENSE OF [facility] Last Admin: 08/15/18 17:04 Dose: 30 mg Enoxaparin Sodium (Lovenox) 60 mg 1 mg/kg (60 mg) SC Q12H DONNA; Protocol Last Admin: 08/15/18 09:13 Dose: 60 mg Famotidine (Pepcid) 20 mg PO DAILY DONNA Last Admin: 08/15/18 09:56 Dose: 20 mg Furosemide (Lasix) 40 mg PO DAILY DONNA Furosemide (Lasix) 40 mg IVP DAILY DONNA Last Admin: 08/15/18 09:12 Dose: 40 mg Gabapentin (Neurontin) 400 mg PO QID DONNA; Protocol Last Admin: 08/15/18 17:05 Dose: 400 mg Doxycycline Hyclate 100 mg/ (Sodium Chloride) 100 mls @ 100 mls/hr IVPB Q12 DONNA; Protocol Last Admin: 08/15/18 09:11 Dose: 100 mls/hr Ceftriaxone Sodium (Rocephin 1 Gram Ivpb) 1 gm in 100 mls @ 100 mls/hr IVPB DAILY DONNA; Protocol Last Admin: 08/15/18 09:10 Dose: 100 mls/hr diltiaZEM IVPB 100mg in NS (Cardizem 100mg In Ns) 100 mls @ 5 mls/hr IV .Q20H PRN; Protocol PRN Reason: TITRATE PER MD ORDER Last Titration: 08/15/18 11:32 Dose: 0 mg/hr, 0 mls/hr Dextrose (Dextrose 5% In Water 1000 Ml) 1,000 mls @ 0 mls/hr IV .Q0M PRN; Protocol PRN Reason: Hypoglycemia Protocol Dexmedetomidine HCl (Precedex 400mcg/100ml) 400 mcg in 100 mls @ 3.084 mls/hr IV .Q24H PRN; Protocol PRN Reason: Agitation Last Titration: 08/15/18 18:30 Dose: 0.4 mcg/kg/hr, 6.169 mls/hr Levalbuterol HCl (Xopenex) 1.25 mg IH [id number] PRN PRN Reason: Shortness of Breath Last Admin: 08/15/18 00:02 Dose: 1.25 mg Levalbuterol HCl (Xopenex) 0.63 mg IH [id number] PRN PRN Reason: Shortness of Breath Last Admin: 08/15/18 06:29 Dose: 0.63 mg Methylprednisolone (Solu-Medrol) 40 mg IVP Q8H ON LICENSE OF [facility] Last Admin: 08/15/18 11:27 Dose: 40 mg Metoprolol Tartrate (Lopressor) 25 mg PO BID ON LICENSE OF [facility] Last Admin: 08/15/18 17:04 Dose: 25 mg Verapamil HCl (Verapamil Inj) 2.5 mg IVP Q6H PRN PRN Reason: Heart rate Last Admin: 08/14/18 18:52 Dose: 2.5 mg Warfarin Sodium (Coumadin) 3 mg PO DAILY ON LICENSE OF [facility]; Protocol - Labs Labs: 08/15/18 06:10 08/15/18 12:00 PT 15.1 SECONDS (9.4-12.5) H 08/15/18 06:10 INR 1.34 08/15/18 06:10 APTT 43.0 Seconds (26.9-38.3) H 08/14/18 06:55 - Constitutional Appears: Non-toxic, Older Than Stated Age - Head Exam Head Exam: ATRAUMATIC, NORMOCEPHALIC - Eye Exam Pupil Exam: Mydriatic Additional comments: sluggish, equal - Respiratory Exam Respiratory Exam: Decreased Breath Sounds, Rales (mild), Wheezes (minimal, improved from admission ) - Cardiovascular Exam Cardiovascular Exam: Irregular Rhythm, +S1, +S2 - GI/Abdominal Exam GI & Abdominal Exam: Soft, Normal Bowel Sounds. absent: Guarding, Rigid, Tenderness - Extremities Exam Extremities Exam: Normal Capillary Refill. absent: Calf Tenderness, Pedal Edema - Neurological Exam Additional comments: Patient intubated with somnolence, noted to be biting ET tube, patient neuro exam limited likely secondary to previous sedation, patient responds to pain, pupils mydriatic, sluggish but responsive to pen light - Psychiatric Exam Additional comments: somnolent - Skin Skin Exam: Dry, Intact Assessment and Plan - Assessment and Plan (Free Text) Assessment: 72 year old female with past medical history of atrial fibrillation on coumadin, cardiomyopathy, CAD, COPD and active tobacco use who presents with complaint of shortness of breath. She is admitted for COPD exacerbation and AFib with RVR Plan: Hypercapneic Respiratory Failure - Patient intubated and sedated - Ventilator 16/450/5/35 - CXR in AM, ABG in AM - Patient monitored in ICU - Maintain SaO2 >90%, likely titrate sedation and weaning trials in AM COPD exacerbation - Etiology: Likely secondary to tobacco abuse in conjunction with poor medication compliance - IV solumedrol 40mg Q12H - Xopenex 2Q2H prn, Q6H Donna secondary to tachycardia - Doxycycline, Rocephin day 2 - Intubated and sedated - f/u Am ABG and Atrial Fibrillation with RVR - Patient noted to have elevated pulse in ED 120s-140s - Cardizem gtt at 10mg started, continue digoxin 0.125mg - Verapamil 2.5 mg IVP PRN - Lovenox 60mg BID for non-therapuetic INR - Start Coumadin 3mg for bridge - Cardiology consulted, f/u recs Diastolic CHF - Continue with lasix - Monitor clinically Non ischemic cardiomyopathy - Continue digoxin - Metoprolol 25mg BID HTN - Continue lisinopril - Continue Metoproll 25mg BID Anxiety - Precedex gtt currently - Monitor Hyperkalemia - Patiromer - Recheck showed correction - Continue to monitor Hypomagnesium - Replete with IV mag 2grams - Monitor, recheck in AM GI/ DVT ppx - Pepcid - Lovenox Patient case and plan discussed with attending, Dr. Walters <Fabio Walters - Last Filed: 08/16/18 07:34> Objective - Vital Signs/Intake and Output Vital Signs (last 24 hours): Temp Pulse Resp BP Pulse Ox 97.7 F 86 26 H 106/59 L 98 08/15/18 20:00 08/15/18 22:59 08/15/18 06:00 08/15/18 23:00 08/15/18 22:59 Intake and Output: 08/16/18 08/16/18 06:59 18:59 Intake Total 198 Balance 198 - Medications Medications: Current Medications Albuterol/Ipratropium (Duoneb 3 Mg/0.5 Mg (3 Ml) Ud) 3 ml IH [id number] ON LICENSE OF [facility] Last Admin: 08/16/18 07:28 Dose: 3 ml Aspirin (Aspirin Chewable) 81 mg PO DAILY ON LICENSE OF [facility] Last Admin: 08/15/18 11:27 Dose: 81 mg Atorvastatin Calcium (Lipitor) 10 mg PO HS ON LICENSE OF [facility] Last Admin: 08/15/18 22:03 Dose: 10 mg Dextrose (Dextrose 50% Inj) 0 ml IV STAT PRN; Protocol PRN Reason: Hypoglycemia Protocol Digoxin (Digoxin) 0.125 mg PO DAILY ON LICENSE OF [facility] Digoxin (Lanoxin) 0.125 mg IVP 1400 DONNA Last Admin: 08/15/18 13:48 Dose: 0.125 mg Diltiazem HCl (Cardizem) 30 mg PO Q6H ON LICENSE OF [facility] Last Admin: 08/15/18 22:03 Dose: 30 mg Enoxaparin Sodium (Lovenox) 60 mg 1 mg/kg (60 mg) SC Q12H DONNA; Protocol Last Admin: 08/15/18 22:03 Dose: 60 mg Famotidine (Pepcid) 20 mg PO DAILY ON LICENSE OF [facility] Last Admin: 08/15/18 09:56 Dose: 20 mg Furosemide (Lasix) 40 mg PO DAILY ON LICENSE OF [facility] Furosemide (Lasix) 40 mg IVP DAILY ON LICENSE OF [facility] Last Admin: 08/15/18 09:12 Dose: 40 mg Gabapentin (Neurontin) 400 mg PO QID ON LICENSE OF [facility]; Protocol Last Admin: 08/15/18 22:06 Dose: 400 mg Doxycycline Hyclate 100 mg/ (Sodium Chloride) 100 mls @ 100 mls/hr IVPB Q12 DONNA; Protocol Last Admin: 08/15/18 22:00 Dose: 100 mls/hr Ceftriaxone Sodium (Rocephin 1 Gram Ivpb) 1 gm in 100 mls @ 100 mls/hr IVPB DAILY ON LICENSE OF [facility]; Protocol Last Admin: 08/15/18 09:10 Dose: 100 mls/hr diltiaZEM IVPB 100mg in NS (Cardizem 100mg In Ns) 100 mls @ 5 mls/hr IV .Q20H PRN; Protocol PRN Reason: TITRATE PER MD ORDER Last Titration: 08/15/18 11:32 Dose: 0 mg/hr, 0 mls/hr Dextrose (Dextrose 5% In Water 1000 Ml) 1,000 mls @ 0 mls/hr IV .Q0M PRN; Protocol PRN Reason: Hypoglycemia Protocol Dexmedetomidine HCl (Precedex 400mcg/100ml) 400 mcg in 100 mls @ 3.084 mls/hr IV .Q24H PRN; Protocol PRN Reason: Agitation Last Admin: 08/16/18 05:48 Dose: 0.5 mcg/kg/hr, 7.711 mls/hr Levalbuterol HCl (Xopenex) 1.25 mg IH [id number] PRN PRN Reason: Shortness of Breath Last Admin: 08/15/18 00:02 Dose: 1.25 mg Levalbuterol HCl (Xopenex) 0.63 mg IH [id number] PRN PRN Reason: Shortness of Breath Last Admin: 08/15/18 06:29 Dose: 0.63 mg Methylprednisolone (Solu-Medrol) 40 mg IVP Q12H ON LICENSE OF [facility] Metoprolol Tartrate (Lopressor) 25 mg PO BID DONNA Last Admin: 08/15/18 17:04 Dose: 25 mg Verapamil HCl (Verapamil Inj) 2.5 mg IVP Q6H PRN PRN Reason: Heart rate Last Admin: 08/14/18 18:52 Dose: 2.5 mg Warfarin Sodium (Coumadin) 3 mg PO DAILY ON LICENSE OF [facility]; Protocol - Labs Labs: 08/16/18 06:15 08/16/18 06:15 PT 16.0 SECONDS (9.4-12.5) H 08/16/18 06:15 INR 1.42 08/16/18 06:15 APTT 43.0 Seconds (26.9-38.3) H 08/14/18 06:55 Attending/Attestation - Attestation I have personally seen and examined this patient.: Yes I have fully participated in the care of the patient.: Yes I have reviewed all pertinent clinical information, including history, physical exam and plan: Yes Notes (Text): 08/15/18 72 year old female with past medical history of atrial fibrillation on coumadin, cardiomyopathy, CAD, COPD and active tobacco use who presented with complaint of shortness of breath. She was admitted for COPD exacerbation and AFib with RVR and started on iv steroids and cardizem drip in addition to xopenex and antibiotics. Counselled on smoking cessation. Cardiology evaluation is foll owing. Continue with coumadin and lovenox for now as INR is subtherapeutic. Continue with lasix. Early this morning patient and acute respiratory distress with acute hypercapneic failure requiring intubation. She was sent to the ICU. Hyperkalemia was treated and came down. Slight elevation of troponin today; discussed with cardiology to continue with anticoagulation and trend cardiac enzymes. Fabio Walters MD Hospitalist.
[2018-08-16] MEDS: Albuterol-Ipratrop 3 mg / 0.5 (3 ml) UD IH SCH ×4 (00:45→19:30)
[2018-08-16] MEDS: Dexmedetomidine 400mcg/100mL 400 MCG/100 ML BOTTLE IV PRN ×6 (01:07→23:43)
[2018-08-16 06:14] LABS: ARTERIAL BLOOD GAS HCO3 29.2 mmol/L (21-28); ARTERIAL BLOOD GAS HEMOGLOBIN 12.4 g/dL (11.7-17.4); ARTERIAL BLOOD GAS O2 CAPACITY 17.2 mL/dl (16-24); ARTERIAL BLOOD GAS O2 CONTENT 17.1 ML/dl (15-23); ARTERIAL BLOOD GAS O2 SAT 99.3 % (95-98); ARTERIAL BLOOD GAS PCO2 45 mm/Hg (35-45); ARTERIAL BLOOD GAS PH 7.42 (7.35-7.45); ARTERIAL BLOOD GAS TCO2 30.6 mmol.L (22-28)
[2018-08-16 06:35] LABS: MEAN CELL VOLUME 87.6 fl (80.0-105.0); MEAN CORPUSCULAR HEMOGLOBIN 28.4 pg (25.0-35.0); MEAN CORPUSCULAR HGB CONC 32.5 g/dl (31.0-37.0); MEAN PLATELET VOLUME 8.9 fl (7.0-11.0); RBC 4.5 10^6/uL (3.5-6.1); RED CELL DISTRIBUTION WIDTH 14.5 % (11.5-14.5); WHITE BLOOD COUNT 11.1 10^3/uL (4.5-11.0)
[2018-08-16 06:37] LABS: HEMOGLOBIN 12.8 g/dL (12.0-16.0)
[2018-08-16 06:46] LABS: INR 1.42
[2018-08-16 07:05] LABS: ALB/GLOB RATIO 1.4 (1.1-1.8); ALBUMIN 3.5 g/dL (3.0-4.8); ALT/SGPT 140 U/L (7-56); AST/SGOT 122 U/L (14-36); BLOOD UREA NITROGEN 37 mg/dL (7-21); GFR NON-AFRICAN AMERICAN > 60
--- NOTE | 2018-08-16 07:06 | CP.CCUPN ---
<Sánchez Nguyen R - Last Filed: 08/16/18 11:07> CCU Subjective - Physician Review Subjective (Free Text): PGY-2 ICU progress note for Dr Michael Patient very anxious and agitated this AM. She is on precedex drip. Failed pressure support only after 15 minutes. Alert and able to follow commands. Den ies cp, abd pain. 08/16/18 11:08 Critical Care Time Spent (in minutes): 40 CCU Objective - Vital Signs / Intake & Output Intake and Output (Last 8hrs): Intake & Output 08/15/18 08/16/18 08/16/18 22:59 06:59 14:59 Intake Total 772 198 Output Total 1600 Balance -828 198 Intake: IV 412 198 IVF 50 antibiotics 300 cardizem 55 precedex 5 Other 360 Output: Urine 1600 Urethral ([place]erguson) 1600 Other 0 Other: # Bowel Movements 0 - Physical Exam Head: Positive for: Atraumatic, Normocephalic Pupils: Positive for: PERRL Extroacular Muscles: Positive for: EOMI Conjunctiva: Positive for: Normal Mouth: Positive for: Moist Mucous Membranes Neck: Positive for: Normal Range of Motion Respiratory/Chest: Positive for: Good Air Exchange, Wheezes, Rales, Other (currently intubated on prvc). Negative for: Respiratory Distress, Accessory Muscle Use Cardiovascular: Positive for: Regular Rate and Rhythm, Normal S1, S2. Negative for: Murmurs Abdomen: Negative for: Tenderness, Distention, Peritoneal Signs Back: Positive for: Normal Inspection Upper Extremity: Positive for: Normal Inspection. Negative for: Cyanosis, Edema Lower Extremity: Positive for: Normal Inspection. Negative for: Edema Neurological: Positive for: GCS=15, CN II-XII Intact, Speech Normal Skin: Positive for: Warm, Dry, Normal Color. Negative for: Rashes Psychiatric: Positive for: Alert - Medications Active Medications: Active Medications Generic Name Dose Route Start Last Admin Trade Name Freq PRN Reason Stop Dose Admin Albuterol/Ipratropium 3 ml 08/15/18 11:00 08/16/18 00:45 Duoneb 3 Mg/0.5 Mg (3 Ml) Ud IH 3 ml [id number] WIL Administration Aspirin 81 mg 08/15/18 11:00 08/15/18 11:27 Aspirin Chewable PO 81 mg DAILY WIL Administration Atorvastatin Calcium 10 mg 08/14/18 22:00 08/15/18 22:03 Lipitor PO 10 mg HS WIL Administration Dextrose 0 ml 08/15/18 09:54 Dextrose 50% Inj IV STAT PRN Hypoglycemia Protocol Protocol Digoxin 0.125 mg 08/15/18 10:00 Digoxin PO DAILY WIL Digoxin 0.125 mg 08/15/18 14:00 08/15/18 13:48 Lanoxin IVP 0.125 mg 1400 WIL Administration Diltiazem HCl 30 mg 08/15/18 17:00 08/15/18 22:03 Cardizem PO 30 mg Q6H WIL Administration Enoxaparin Sodium 60 mg 08/14/18 09:45 08/15/18 22:03 Lovenox 1 mg/kg (60 mg) 60 mg SC Administration Q12H WIL Protocol Famotidine 20 mg 08/15/18 10:00 08/15/18 09:56 Pepcid PO 20 mg DAILY WIL Administration Furosemide 40 mg 08/15/18 10:00 Lasix PO DAILY WIL Furosemide 40 mg 08/15/18 10:00 08/15/18 09:12 Lasix IVP 40 mg DAILY WIL Administration Gabapentin 400 mg 08/14/18 14:00 08/15/18 22:06 Neurontin PO 400 mg QID WIL Administration Protocol Doxycycline Hyclate 100 mg/ 100 mls @ 100 mls/hr 08/14/18 11:45 08/15/18 22:00 Sodium Chloride IVPB 100 mls/hr Q12 WIL Administration Protocol Ceftriaxone Sodium 1 gm in 100 mls @ 100 mls/hr 08/15/18 10:00 08/15/18 09:10 Rocephin 1 Gram Ivpb IVPB 100 mls/hr DAILY WIL Administration Protocol diltiaZEM IVPB 100mg in NS 100 mls @ 5 mls/hr 08/15/18 09:04 08/15/18 11:32 Cardizem 100mg In Ns IV 0 mg/hr .Q20H PRN 0 mls/hr TITRATE PER MD ORDER Titration Protocol 5 MG/HR Dextrose 1,000 mls @ 0 mls/hr 08/15/18 09:54 Dextrose 5% In Water 1000 Ml IV .Q0M PRN Hypoglycemia Protocol Protocol Per Protocol Dexmedetomidine HCl 400 mcg in 100 mls @ 3.084 mls/hr 08/15/18 17:48 08/16/18 05:48 Precedex 400mcg/100ml IV 0.5 mcg/kg/hr .Q24H PRN 7.711 mls/hr Agitation Administration Protocol 0.2 MCG/KG/HR Levalbuterol HCl 1.25 mg 08/14/18 11:28 08/15/18 00:02 Xopenex IH 1.25 mg [id number] PRN Administration Shortness of Breath Levalbuterol HCl 0.63 mg 08/14/18 11:28 08/15/18 06:29 Xopenex IH 0.63 mg [id number] PRN Administration Shortness of Breath Lorazepam 0.5 mg 08/16/18 00:42 Ativan IVP Q6H PRN Agitation Protocol Methylprednisolone 40 mg 08/16/18 08:00 Solu-Medrol IVP Q12H WIL Metoprolol Tartrate 25 mg 08/15/18 18:00 08/15/18 17:04 Lopressor PO 25 mg BID WIL Administration Verapamil HCl 2.5 mg 08/14/18 15:39 08/14/18 18:52 Verapamil Inj IVP 2.5 mg Q6H PRN Administration Heart rate Warfarin Sodium 3 mg 08/16/18 10:00 Coumadin PO DAILY [facility] Protocol - Patient Studies Lab Studies: Microbiology Studies 08/14/18 07:00 Blood Culture - Preliminary Blood-Venous NO GROWTH AFTER 24 HOURS 08/14/18 06:40 Blood Culture - Preliminary Blood-Venous NO GROWTH AFTER 24 HOURS Lab Studies 08/16/18 08/16/18 08/16/18 Range/Units 06:15 06:15 06:00 WBC 11.1 H (4.5-11.0) 10^3/uL RBC 4.50 (3.5-6.1) 10^6/uL Hgb 12.8 D (12.0-16.0) g/dL Hct 39.4 (36.0-48.0) % MCV 87.6 (80.0-105.0) fl MCH 28.4 (25.0-35.0) pg MCHC 32.5 (31.0-37.0) g/dl RDW 14.5 (11.5-14.5) % Plt Count 230 (120.0-450.0) 10^3/uL MPV 8.9 (7.0-11.0) fl PT 16.0 H (9.4-12.5) SECONDS INR 1.42 pCO2 45 (35-45) mm/Hg pO2 126.0 H (80-100) mm/Hg HCO3 29.2 H (21-28) mmol/L ABG pH 7.42 (7.35-7.45) ABG Total CO2 30.6 H (22-28) mmol.L ABG O2 Saturation 99.3 H (95-98) % ABG O2 Content 17.1 (15-23) ML/dl ABG Base Excess 4.1 H (-2.0-3.0) mmol/L ABG Hemoglobin 12.4 (11.7-17.4) g/dL ABG Carboxyhemoglobin 1.4 (0.5-1.5) % POC ABG HHb (Measured) 0.7 (0-5) % ABG Methemoglobin 1.0 (0.0-3.0) % ABG O2 Capacity 17.2 (16-24) mL/dl Hgb O2 Saturation 96.9 (95.0-98.0) % FiO2 35.0 % Sodium (132-148) mmol/L Potassium (3.6-5.0) mmol/L Chloride (98-107) mmol/L Carbon Dioxide (21-33) mmol/L Anion Gap (10-20) BUN (7-21) mg/dL Creatinine (0.7-1.2) mg/dl Est GFR ( Amer) Est GFR (Non-Af Amer) POC Glucose (mg/dL) (65-110) mg/dL Random Glucose (70-110) mg/dL Calcium (8.4-10.5) mg/dL Magnesium (1.7-2.2) mg/dL Total Bilirubin (0.2-1.3) mg/dL AST (14-36) U/L ALT (7-56) U/L Alkaline Phosphatase (38-126) U/L Troponin I ng/mL Total Protein (5.8-8.3) g/dL Albumin (3.0-4.8) g/dL Globulin gm/dL Albumin/Globulin Ratio (1.1-1.8) Urine Opiates Screen (NEGATIVE) Urine Methadone Screen (NEGATIVE) Ur Barbiturates Screen (NEGATIVE) Ur Phencyclidine Scrn (NEGATIVE) Ur Amphetamines Screen (NEGATIVE) U Benzodiazepines Scrn (NEGATIVE) U Oth Cocaine Metabols (NEGATIVE) U Cannabinoids Screen (NEGATIVE) 08/15/18 08/15/18 08/15/18 Range/Units 21:44 21:40 16:17 WBC (4.5-11.0) 10^3/uL RBC (3.5-6.1) 10^6/uL Hgb (12.0-16.0) g/dL Hct (36.0-48.0) % MCV (80.0-105.0) fl MCH (25.0-35.0) pg MCHC (31.0-37.0) g/dl RDW (11.5-14.5) % Plt Count (120.0-450.0) 10^3/uL MPV (7.0-11.0) fl PT (9.4-12.5) SECONDS INR pCO2 (35-45) mm/Hg pO2 (80-100) mm/Hg HCO3 (21-28) mmol/L ABG pH (7.35-7.45) ABG Total CO2 (22-28) mmol.L ABG O2 Saturation (95-98) % ABG O2 Content (15-23) ML/dl ABG Base Excess (-2.0-3.0) mmol/L ABG Hemoglobin (11.7-17.4) g/dL ABG Carboxyhemoglobin (0.5-1.5) % POC ABG HHb (Measured) (0-5) % ABG Methemoglobin (0.0-3.0) % ABG O2 Capacity (16-24) mL/dl Hgb O2 Saturation (95.0-98.0) % FiO2 % Sodium (132-148) mmol/L Potassium (3.6-5.0) mmol/L Chloride (98-107) mmol/L Carbon Dioxide (21-33) mmol/L Anion Gap (10-20) BUN (7-21) mg/dL Creatinine (0.7-1.2) mg/dl Est GFR ( Amer) Est GFR (Non-Af Amer) POC Glucose (mg/dL) 130 H (65-110) mg/dL Random Glucose (70-110) mg/dL Calcium (8.4-10.5) mg/dL Magnesium (1.7-2.2) mg/dL Total Bilirubin (0.2-1.3) mg/dL AST (14-36) U/L ALT (7-56) U/L Alkaline Phosphatase (38-126) U/L Troponin I 0.14 H* 0.12 ng/mL Total Protein (5.8-8.3) g/dL Albumin (3.0-4.8) g/dL Globulin gm/dL Albumin/Globulin Ratio (1.1-1.8) Urine Opiates Screen (NEGATIVE) Urine Methadone Screen (NEGATIVE) Ur Barbiturates Screen (NEGATIVE) Ur Phencyclidine Scrn (NEGATIVE) Ur Amphetamines Screen (NEGATIVE) U Benzodiazepines Scrn (NEGATIVE) U Oth Cocaine Metabols (NEGATIVE) U Cannabinoids Screen (NEGATIVE) 08/15/18 08/15/18 08/15/18 Range/Units 12:00 09:00 08:10 WBC (4.5-11.0) 10^3/uL RBC (3.5-6.1) 10^6/uL Hgb (12.0-16.0) g/dL Hct (36.0-48.0) % MCV (80.0-105.0) fl MCH (25.0-35.0) pg MCHC (31.0-37.0) g/dl RDW (11.5-14.5) % Plt Count (120.0-450.0) 10^3/uL MPV (7.0-11.0) fl PT (9.4-12.5) SECONDS INR pCO2 58 H (35-45) mm/Hg pO2 408.0 H (80-100) mm/Hg HCO3 25.4 (21-28) mmol/L ABG pH 7.25 L (7.35-7.45) ABG Total CO2 27.2 (22-28) mmol.L ABG O2 Saturation 99.7 H (95-98) % ABG O2 Content 19.7 (15-23) ML/dl ABG Base Excess -2.8 L (-2.0-3.0) mmol/L ABG Hemoglobin 13.6 (11.7-17.4) g/dL ABG Carboxyhemoglobin 1.2 (0.5-1.5) % POC ABG HHb (Measured) 0.3 (0-5) % ABG Methemoglobin 1.0 (0.0-3.0) % ABG O2 Capacity 19.8 (16-24) mL/dl Hgb O2 Saturation 97.5 (95.0-98.0) % FiO2 80.0 % Sodium 134 134 (132-148) mmol/L Potassium 4.5 5.8 H* D (3.6-5.0) mmol/L Chloride 94 L 95 L (98-107) mmol/L Carbon Dioxide 28 26 (21-33) mmol/L Anion Gap 16 19 (10-20) BUN 27 H 24 H (7-21) mg/dL Creatinine 0.9 1.0 (0.7-1.2) mg/dl Est GFR ( Amer) > 60 > 60 Est GFR (Non-Af Amer) > 60 55 POC Glucose (mg/dL) (65-110) mg/dL Random Glucose 122 H 138 H (70-110) mg/dL Calcium 9.2 9.3 (8.4-10.5) mg/dL Magnesium 2.0 (1.7-2.2) mg/dL Total Bilirubin 0.6 (0.2-1.3) mg/dL AST 97 H D (14-36) U/L ALT 94 H (7-56) U/L Alkaline Phosphatase 69 (38-126) U/L Troponin I 0.15 H* D ng/mL Total Protein 7.3 (5.8-8.3) g/dL Albumin 4.4 (3.0-4.8) g/dL Globulin 2.9 gm/dL Albumin/Globulin Ratio 1.5 (1.1-1.8) Urine Opiates Screen (NEGATIVE) Urine Methadone Screen (NEGATIVE) Ur Barbiturates Screen (NEGATIVE) Ur Phencyclidine Scrn (NEGATIVE) Ur Amphetamines Screen (NEGATIVE) U Benzodiazepines Scrn (NEGATIVE) U Oth Cocaine Metabols (NEGATIVE) U Cannabinoids Screen (NEGATIVE) 08/15/18 08/14/18 Range/Units 06:21 09:41 WBC (4.5-11.0) 10^3/uL RBC (3.5-6.1) 10^6/uL Hgb (12.0-16.0) g/dL Hct (36.0-48.0) % MCV (80.0-105.0) fl MCH (25.0-35.0) pg MCHC (31.0-37.0) g/dl RDW (11.5-14.5) % Plt Count (120.0-450.0) 10^3/uL MPV (7.0-11.0) fl PT (9.4-12.5) SECONDS INR pCO2 (35-45) mm/Hg pO2 (80-100) mm/Hg HCO3 (21-28) mmol/L ABG pH (7.35-7.45) ABG Total CO2 (22-28) mmol.L ABG O2 Saturation (95-98) % ABG O2 Content (15-23) ML/dl ABG Base Excess (-2.0-3.0) mmol/L ABG Hemoglobin (11.7-17.4) g/dL ABG Carboxyhemoglobin (0.5-1.5) % POC ABG HHb (Measured) (0-5) % ABG Methemoglobin (0.0-3.0) % ABG O2 Capacity (16-24) mL/dl Hgb O2 Saturation (95.0-98.0) % FiO2 % Sodium (132-148) mmol/L Potassium (3.6-5.0) mmol/L Chloride (98-107) mmol/L Carbon Dioxide (21-33) mmol/L Anion Gap (10-20) BUN (7-21) mg/dL Creatinine (0.7-1.2) mg/dl Est GFR ( Amer) Est GFR (Non-Af Amer) POC Glucose (mg/dL) 156 H (65-110) mg/dL Random Glucose (70-110) mg/dL Calcium (8.4-10.5) mg/dL Magnesium (1.7-2.2) mg/dL Total Bilirubin (0.2-1.3) mg/dL AST (14-36) U/L ALT (7-56) U/L Alkaline Phosphatase (38-126) U/L Troponin I ng/mL Total Protein (5.8-8.3) g/dL Albumin (3.0-4.8) g/dL Globulin gm/dL Albumin/Globulin Ratio (1.1-1.8) Urine Opiates Screen Negative (NEGATIVE) Urine Methadone Screen Negative (NEGATIVE) Ur Barbiturates Screen Negative (NEGATIVE) Ur Phencyclidine Scrn Negative (NEGATIVE) Ur Amphetamines Screen Negative (NEGATIVE) U Benzodiazepines Scrn Positive H (NEGATIVE) U Oth Cocaine Metabols Negative (NEGATIVE) U Cannabinoids Screen Negative (NEGATIVE) Laboratory Results - last 24 hr 08/14/18 08/15/18 08/15/18 09:41 06:21 08:10 WBC RBC Hgb Hct MCV MCH MCHC RDW Plt Count MPV PT INR pCO2 pO2 HCO3 ABG pH ABG Total CO2 ABG O2 Saturation ABG O2 Content ABG Base Excess ABG Hemoglobin ABG Carboxyhemoglobin POC ABG HHb (Measured) ABG Methemoglobin ABG O2 Capacity Hgb O2 Saturation FiO2 Sodium 134 Potassium 5.8 H* D Chloride 95 L Carbon Dioxide 26 Anion Gap 19 BUN 24 H Creatinine 1.0 Est GFR ( Amer) > 60 Est GFR (Non-Af Amer) 55 POC Glucose (mg/dL) 156 H Random Glucose 138 H Calcium 9.3 Magnesium 2.0 Total Bilirubin 0.6 AST 97 H D ALT 94 H Alkaline Phosphatase 69 Troponin I 0.15 H* D Total Protein 7.3 Albumin 4.4 Globulin 2.9 Albumin/Globulin Ratio 1.5 Urine Opiates Screen Negative Urine Methadone Screen Negative Ur Barbiturates Screen Negative Ur Phencyclidine Scrn Negative Ur Amphetamines Screen Negative U Benzodiazepines Scrn Positive H U Oth Cocaine Metabols Negative U Cannabinoids Screen Negative 08/15/18 08/15/18 08/15/18 09:00 12:00 16:17 WBC RBC Hgb Hct MCV MCH MCHC RDW Plt Count MPV PT INR pCO2 58 H pO2 408.0 H HCO3 25.4 ABG pH 7.25 L ABG Total CO2 27.2 ABG O2 Saturation 99.7 H ABG O2 Content 19.7 ABG Base Excess -2.8 L ABG Hemoglobin 13.6 ABG Carboxyhemoglobin 1.2 POC ABG HHb (Measured) 0.3 ABG Methemoglobin 1.0 ABG O2 Capacity 19.8 Hgb O2 Saturation 97.5 FiO2 80.0 Sodium 134 Potassium 4.5 Chloride 94 L Carbon Dioxide 28 Anion Gap 16 BUN 27 H Creatinine 0.9 Est GFR ( Amer) > 60 Est GFR (Non-Af Amer) > 60 POC Glucose (mg/dL) Random Glucose 122 H Calcium 9.2 Magnesium Total Bilirubin AST ALT Alkaline Phosphatase Troponin I 0.12 Total Protein Albumin Globulin Albumin/Globulin Ratio Urine Opiates Screen Urine Methadone Screen Ur Barbiturates Screen Ur Phencyclidine Scrn Ur Amphetamines Screen U Benzodiazepines Scrn U Oth Cocaine Metabols U Cannabinoids Screen 08/15/18 08/15/18 08/16/18 21:40 21:44 06:00 WBC RBC Hgb Hct MCV MCH MCHC RDW Plt Count MPV PT INR pCO2 45 pO2 126.0 H HCO3 29.2 H ABG pH 7.42 ABG Total CO2 30.6 H ABG O2 Saturation 99.3 H ABG O2 Content 17.1 ABG Base Excess 4.1 H ABG Hemoglobin 12.4 ABG Carboxyhemoglobin 1.4 POC ABG HHb (Measured) 0.7 ABG Methemoglobin 1.0 ABG O2 Capacity 17.2 Hgb O2 Saturation 96.9 FiO2 35.0 Sodium Potassium Chloride Carbon Dioxide Anion Gap BUN Creatinine Est GFR ( Amer) Est GFR (Non-Af Amer) POC Glucose (mg/dL) 130 H Random Glucose Calcium Magnesium Total Bilirubin AST ALT Alkaline Phosphatase Troponin I 0.14 H* Total Protein Albumin Globulin Albumin/Globulin Ratio Urine Opiates Screen Urine Methadone Screen Ur Barbiturates Screen Ur Phencyclidine Scrn Ur Amphetamines Screen U Benzodiazepines Scrn U Oth Cocaine Metabols U Cannabinoids Screen 08/16/18 08/16/18 06:15 06:15 WBC 11.1 H RBC 4.50 Hgb 12.8 D Hct 39.4 MCV 87.6 MCH 28.4 MCHC 32.5 RDW 14.5 Plt Count 230 MPV 8.9 PT 16.0 H INR 1.42 pCO2 pO2 HCO3 ABG pH ABG Total CO2 ABG O2 Saturation ABG O2 Content ABG Base Excess ABG Hemoglobin ABG Carboxyhemoglobin POC ABG HHb (Measured) ABG Methemoglobin ABG O2 Capacity Hgb O2 Saturation FiO2 Sodium Potassium Chloride Carbon Dioxide Anion Gap BUN Creatinine Est GFR ( Amer) Est GFR (Non-Af Amer) POC Glucose (mg/dL) Random Glucose Calcium Magnesium Total Bilirubin AST ALT Alkaline Phosphatase Troponin I Total Protein Albumin Globulin Albumin/Globulin Ratio Urine Opiates Screen Urine Methadone Screen Ur Barbiturates Screen Ur Phencyclidine Scrn Ur Amphetamines Screen U Benzodiazepines Scrn U Oth Cocaine Metabols U Cannabinoids Screen Radiology Impressions: Radiology Impressions Chest X-Ray 08/15/18 07:25 IMPRESSION: Mild vascular congestion. Patchy infiltrates at the right lung base. Endotracheal tube in satisfactory position Chest X-Ray 08/15/18 08:35 IMPRESSION: 0 GT in satisfactory position EKG/Cardiology Studies: Cardiology / EKG Studies 08/15/18 09:43 ELECTROCARDIOGRAM Stat Comment: Reason For Exam: SOB Review of Systems - Review of Systems All systems: reviewed and no additional remarkable complaints except (as stated in subjective) Critical Care Progress Note - Nutrition Nutrition: Nutrition Category Date Time Status NPO Diet [DIET] Diets 08/15/18 Breakfast Ordered Assessment/Plan - Assessment and Plan (Free Text) Plan: Mrs Arciniega is a 72 year old female with a PMHx of paroxysmal atrial fibrillation, non-ischemic cardiomyopathy, CAD, poorly controlled non home O2 COPD secondary to medication compliance and secondary to tobacco abuse who presented to the ED for shortness of breath for the past few days: Cardiovascular: #NSTEMI, #Paroxysmal Atrial Fibrillation, #Diastolic CHF, #CAD, Non-Ischemic Cardiomyopathy -cardiology consulted, Dr Mendez -troponin <0.01 -> 0.15 -> 0.12 -> 0.14 -probnp 1929 -echo 01/2018 showed EF 54%, limited study, mild TR, mild MR -cardizem drip prn to control heart rate -> currently off -> resumed home med cardizem 30mg po q6h formerly [facility] -resumed home med metoprolol tartrate 25mg po bid wil -resumed home digoxin 0.25mg po qd, loaded with digoxin 1g on day of admission as digoxin level was < 0.4 likely non-compliance with med at home -anticoagulation with lovenox 60mg sc q12h -> bridge to warfarin, resumed home med warfarin 3mg po qd, goal INR 2-3 -aspirin 81mg po qd, lipitor 10mg po hs -verapamil 2.5mg ivp q6h prn for HR > 130 -lasix 40mg ivp qd Pulmonary: #COPD Exacerbation -intubated on vent 35/5/15/450 - repeat ABG shows improvement -failed pressure support only after 15 minutes - appears very anxious/agitated during pressure support -duoneb scheduled q6h -titrate down solumedrol 40mg ivp q12h ID: #Leukocytosis - tx empirically for COPD exacerbation - doxycycline 100mg ivp q12h (started 08/14) and rocephin 1g ivp qd (started 08/15) - f/u blood cx Renal: #Hyperkalemia, resolved -received 1 dose of patiromer Neuro: - AAOx3, no deficits Psychiatry: #Anxiety, #Agitation - precedex drip as needed to control agitation/anxiety as patient pulls on iv lines/ogt - consulted psychiatry Dr Linton, who can hopefully help find a suitable anxiolytic that does not cause respiratory issues GI: - w/ OGT - start tube feeds goal rate 35cc of jevity with 150cc free water flushes q4h PPx: pepcid 20mg po qd, on therapeutic AC Seen and discussed with Dr Rodriguez <Derian Rodriguez - Last Filed: 08/16/18 12:56> CCU Objective - Vital Signs / Intake & Output Vital Signs (Last 4 hours): Vital Signs Pulse BP 08/16/18 10:21 98 H 124/78 08/16/18 10:16 98 H 124/78 08/16/18 10:14 124/78 Intake and Output (Last 8hrs): Intake & Output 08/15/18 08/16/18 08/16/18 22:59 06:59 14:59 Intake Total 772 198 100 Output Total 1600 Balance -828 198 100 Intake: IV 412 198 100 IVF 50 antibiotics 300 cardizem 55 precedex 5 Other 360 Output: Urine 1600 Urethral ([place]) 1600 Other 0 Other: # Bowel Movements 0 - Medications Active Medications: Active Medications Generic Name Dose Route Start Last Admin Trade Name Freq PRN Reason Stop Dose Admin Albuterol/Ipratropium 3 ml 08/15/18 11:00 08/16/18 07:28 Duoneb 3 Mg/0.5 Mg (3 Ml) Ud IH 3 ml [id number] WIL Administration Aspirin 81 mg 08/15/18 11:00 08/16/18 10:15 Aspirin Chewable PO 81 mg DAILY WIL Administration Atorvastatin Calcium 10 mg 08/14/18 22:00 08/15/18 22:03 Lipitor PO 10 mg HS WIL Administration Dextrose 0 ml 08/15/18 09:54 Dextrose 50% Inj IV STAT PRN Hypoglycemia Protocol Protocol Digoxin 0.125 mg 08/15/18 10:00 Digoxin PO DAILY WIL Digoxin 0.25 mg 08/16/18 14:00 Lanoxin PO 1400 WIL Diltiazem HCl 30 mg 08/15/18 17:00 08/16/18 10:21 Cardizem PO 30 mg Q6H WIL Administration Enoxaparin Sodium 60 mg 08/14/18 09:45 08/16/18 10:21 Lovenox 1 mg/kg (60 mg) 60 mg SC Administration Q12H WIL Protocol Famotidine 20 mg 08/15/18 10:00 08/16/18 10:13 Pepcid PO 20 mg DAILY WIL Administration Furosemide 40 mg 08/15/18 10:00 Lasix PO DAILY WIL Furosemide 40 mg 08/15/18 10:00 08/16/18 10:14 Lasix IVP 40 mg DAILY WIL Administration Gabapentin 400 mg 08/14/18 14:00 08/16/18 10:13 Neurontin PO 400 mg QID WIL Administration Protocol Doxycycline Hyclate 100 mg/ 100 mls @ 100 mls/hr 08/14/18 11:45 08/16/18 10:16 Sodium Chloride IVPB 100 mls/hr Q12 WIL Administration Protocol Ceftriaxone Sodium 1 gm in 100 mls @ 100 mls/hr 08/15/18 10:00 08/16/18 10:16 Rocephin 1 Gram Ivpb IVPB 100 mls/hr DAILY WIL Administration Protocol diltiaZEM IVPB 100mg in NS 100 mls @ 5 mls/hr 08/15/18 09:04 08/15/18 11:32 Cardizem 100mg In Ns IV 0 mg/hr .Q20H PRN 0 mls/hr TITRATE PER MD ORDER Titration Protocol 5 MG/HR Dextrose 1,000 mls @ 0 mls/hr 08/15/18 09:54 Dextrose 5% In Water 1000 Ml IV .Q0M PRN Hypoglycemia Protocol Protocol Per Protocol Dexmedetomidine HCl 400 mcg in 100 mls @ 3.084 mls/hr 08/15/18 17:48 08/16/18 10:58 Precedex 400mcg/100ml IV 1 mcg/kg/hr .Q24H PRN 15.422 mls/hr Agitation Administration Protocol 0.2 MCG/KG/HR Levalbuterol HCl 1.25 mg 08/14/18 11:28 08/15/18 00:02 Xopenex IH 1.25 mg [id number] PRN Administration Shortness of Breath Levalbuterol HCl 0.63 mg 08/14/18 11:28 08/15/18 06:29 Xopenex IH 0.63 mg [id number] PRN Administration Shortness of Breath Methylprednisolone 40 mg 08/16/18 08:00 08/16/18 07:42 Solu-Medrol IVP 40 mg Q12H WIL Administration Metoprolol Tartrate 25 mg 08/15/18 18:00 08/16/18 10:16 Lopressor PO 25 mg BID WIL Administration Mupirocin 0 gm 08/16/18 18:00 Bactroban Ointment NS 08/21/18 10:01 BID [facility] Verapamil HCl 2.5 mg 08/14/18 15:39 08/14/18 18:52 Verapamil Inj IVP 2.5 mg Q6H PRN Administration Heart rate Warfarin Sodium 3 mg 08/16/18 18:00 Coumadin PO 1800 [facility] Protocol - Patient Studies Lab Studies: Microbiology Studies 08/15/18 08:00 MRSA Culture (Admit) - Final Naris 08/14/18 07:00 Blood Culture - Preliminary Blood-Venous NO GROWTH AFTER 48 HOURS 08/14/18 06:40 Blood Culture - Preliminary Blood-Venous NO GROWTH AFTER 48 HOURS Lab Studies 08/16/18 08/16/18 08/16/18 Range/Units 11:21 06:15 06:15 WBC (4.5-11.0) 10^3/uL RBC (3.5-6.1) 10^6/uL Hgb (12.0-16.0) g/dL Hct (36.0-48.0) % MCV (80.0-105.0) fl MCH (25.0-35.0) pg MCHC (31.0-37.0) g/dl RDW (11.5-14.5) % Plt Count (120.0-450.0) 10^3/uL MPV (7.0-11.0) fl PT 16.0 H (9.4-12.5) SECONDS INR 1.42 pCO2 (35-45) mm/Hg pO2 (80-100) mm/Hg HCO3 (21-28) mmol/L ABG pH (7.35-7.45) ABG Total CO2 (22-28) mmol.L ABG O2 Saturation (95-98) % ABG O2 Content (15-23) ML/dl ABG Base Excess (-2.0-3.0) mmol/L ABG Hemoglobin (11.7-17.4) g/dL ABG Carboxyhemoglobin (0.5-1.5) % POC ABG HHb (Measured) (0-5) % ABG Methemoglobin (0.0-3.0) % ABG O2 Capacity (16-24) mL/dl Hgb O2 Saturation (95.0-98.0) % FiO2 % Sodium 136 (132-148) mmol/L Potassium 4.2 (3.6-5.0) mmol/L Chloride 100 (98-107) mmol/L Carbon Dioxide 29 (21-33) mmol/L Anion Gap 12 (10-20) BUN 37 H (7-21) mg/dL Creatinine 0.7 (0.7-1.2) mg/dl Est GFR ( Amer) > 60 Est GFR (Non-Af Amer) > 60 POC Glucose (mg/dL) 159 H (65-110) mg/dL Random Glucose 127 H (70-110) mg/dL Calcium 9.0 (8.4-10.5) mg/dL Magnesium 2.1 (1.7-2.2) mg/dL Total Bilirubin 0.4 (0.2-1.3) mg/dL AST 122 H D (14-36) U/L ALT 140 H (7-56) U/L Alkaline Phosphatase 55 (38-126) U/L Troponin I ng/mL Total Protein 6.0 (5.8-8.3) g/dL Albumin 3.5 (3.0-4.8) g/dL Globulin 2.5 gm/dL Albumin/Globulin Ratio 1.4 (1.1-1.8) 08/16/18 08/16/18 08/15/18 Range/Units 06:15 06:00 21:44 WBC 11.1 H (4.5-11.0) 10^3/uL RBC 4.50 (3.5-6.1) 10^6/uL Hgb 12.8 D (12.0-16.0) g/dL Hct 39.4 (36.0-48.0) % MCV 87.6 (80.0-105.0) fl MCH 28.4 (25.0-35.0) pg MCHC 32.5 (31.0-37.0) g/dl RDW 14.5 (11.5-14.5) % Plt Count 230 (120.0-450.0) 10^3/uL MPV 8.9 (7.0-11.0) fl PT (9.4-12.5) SECONDS INR pCO2 45 (35-45) mm/Hg pO2 126.0 H (80-100) mm/Hg HCO3 29.2 H (21-28) mmol/L ABG pH 7.42 (7.35-7.45) ABG Total CO2 30.6 H (22-28) mmol.L ABG O2 Saturation 99.3 H (95-98) % ABG O2 Content 17.1 (15-23) ML/dl ABG Base Excess 4.1 H (-2.0-3.0) mmol/L ABG Hemoglobin 12.4 (11.7-17.4) g/dL ABG Carboxyhemoglobin 1.4 (0.5-1.5) % POC ABG HHb (Measured) 0.7 (0-5) % ABG Methemoglobin 1.0 (0.0-3.0) % ABG O2 Capacity 17.2 (16-24) mL/dl Hgb O2 Saturation 96.9 (95.0-98.0) % FiO2 35.0 % Sodium (132-148) mmol/L Potassium (3.6-5.0) mmol/L Chloride (98-107) mmol/L Carbon Dioxide (21-33) mmol/L Anion Gap (10-20) BUN (7-21) mg/dL Creatinine (0.7-1.2) mg/dl Est GFR ( Amer) Est GFR (Non-Af Amer) POC Glucose (mg/dL) 130 H (65-110) mg/dL Random Glucose (70-110) mg/dL Calcium (8.4-10.5) mg/dL Magnesium (1.7-2.2) mg/dL Total Bilirubin (0.2-1.3) mg/dL AST (14-36) U/L ALT (7-56) U/L Alkaline Phosphatase (38-126) U/L Troponin I ng/mL Total Protein (5.8-8.3) g/dL Albumin (3.0-4.8) g/dL Globulin gm/dL Albumin/Globulin Ratio (1.1-1.8) 08/15/18 08/15/18 08/15/18 Range/Units 21:40 16:17 06:21 WBC (4.5-11.0) 10^3/uL RBC (3.5-6.1) 10^6/uL Hgb (12.0-16.0) g/dL Hct (36.0-48.0) % MCV (80.0-105.0) fl MCH (25.0-35.0) pg MCHC (31.0-37.0) g/dl RDW (11.5-14.5) % Plt Count (120.0-450.0) 10^3/uL MPV (7.0-11.0) fl PT (9.4-12.5) SECONDS INR pCO2 (35-45) mm/Hg pO2 (80-100) mm/Hg HCO3 (21-28) mmol/L ABG pH (7.35-7.45) ABG Total CO2 (22-28) mmol.L ABG O2 Saturation (95-98) % ABG O2 Content (15-23) ML/dl ABG Base Excess (-2.0-3.0) mmol/L ABG Hemoglobin (11.7-17.4) g/dL ABG Carboxyhemoglobin (0.5-1.5) % POC ABG HHb (Measured) (0-5) % ABG Methemoglobin (0.0-3.0) % ABG O2 Capacity (16-24) mL/dl Hgb O2 Saturation (95.0-98.0) % FiO2 % Sodium (132-148) mmol/L Potassium (3.6-5.0) mmol/L Chloride (98-107) mmol/L Carbon Dioxide (21-33) mmol/L Anion Gap (10-20) BUN (7-21) mg/dL Creatinine (0.7-1.2) mg/dl Est GFR ( Amer) Est GFR (Non-Af Amer) POC Glucose (mg/dL) 156 H (65-110) mg/dL Random Glucose (70-110) mg/dL Calcium (8.4-10.5) mg/dL Magnesium (1.7-2.2) mg/dL Total Bilirubin (0.2-1.3) mg/dL AST (14-36) U/L ALT (7-56) U/L Alkaline Phosphatase (38-126) U/L Troponin I 0.14 H* 0.12 ng/mL Total Protein (5.8-8.3) g/dL Albumin (3.0-4.8) g/dL Globulin gm/dL Albumin/Globulin Ratio (1.1-1.8) Laboratory Results - last 24 hr 08/15/18 08/15/18 08/15/18 06:21 16:17 21:40 WBC RBC Hgb Hct MCV MCH MCHC RDW Plt Count MPV PT INR pCO2 pO2 HCO3 ABG pH ABG Total CO2 ABG O2 Saturation ABG O2 Content ABG Base Excess ABG Hemoglobin ABG Carboxyhemoglobin POC ABG HHb (Measured) ABG Methemoglobin ABG O2 Capacity Hgb O2 Saturation FiO2 Sodium Potassium Chloride Carbon Dioxide Anion Gap BUN Creatinine Est GFR ( Amer) Est GFR (Non-Af Amer) POC Glucose (mg/dL) 156 H Random Glucose Calcium Magnesium Total Bilirubin AST ALT Alkaline Phosphatase Troponin I 0.12 0.14 H* Total Protein Albumin Globulin Albumin/Globulin Ratio 08/15/18 08/16/18 08/16/18 21:44 06:00 06:15 WBC 11.1 H RBC 4.50 Hgb 12.8 D Hct 39.4 MCV 87.6 MCH 28.4 MCHC 32.5 RDW 14.5 Plt Count 230 MPV 8.9 PT INR pCO2 45 pO2 126.0 H HCO3 29.2 H ABG pH 7.42 ABG Total CO2 30.6 H ABG O2 Saturation 99.3 H ABG O2 Content 17.1 ABG Base Excess 4.1 H ABG Hemoglobin 12.4 ABG Carboxyhemoglobin 1.4 POC ABG HHb (Measured) 0.7 ABG Methemoglobin 1.0 ABG O2 Capacity 17.2 Hgb O2 Saturation 96.9 FiO2 35.0 Sodium Potassium Chloride Carbon Dioxide Anion Gap BUN Creatinine Est GFR ( Amer) Est GFR (Non-Af Amer) POC Glucose (mg/dL) 130 H Random Glucose Calcium Magnesium Total Bilirubin AST ALT Alkaline Phosphatase Troponin I Total Protein Albumin Globulin Albumin/Globulin Ratio 08/16/18 08/16/18 08/16/18 06:15 06:15 11:21 WBC RBC Hgb Hct MCV MCH MCHC RDW Plt Count MPV PT 16.0 H INR 1.42 pCO2 pO2 HCO3 ABG pH ABG Total CO2 ABG O2 Saturation ABG O2 Content ABG Base Excess ABG Hemoglobin ABG Carboxyhemoglobin POC ABG HHb (Measured) ABG Methemoglobin ABG O2 Capacity Hgb O2 Saturation FiO2 Sodium 136 Potassium 4.2 Chloride 100 Carbon Dioxide 29 Anion Gap 12 BUN 37 H Creatinine 0.7 Est GFR ( Amer) > 60 Est GFR (Non-Af Amer) > 60 POC Glucose (mg/dL) 159 H Random Glucose 127 H Calcium 9.0 Magnesium 2.1 Total Bilirubin 0.4 AST 122 H D ALT 140 H Alkaline Phosphatase 55 Troponin I Total Protein 6.0 Albumin 3.5 Globulin 2.5 Albumin/Globulin Ratio 1.4 Radiology Impressions: Radiology Impressions Chest X-Ray 08/16/18 06:00 IMPRESSION: The endotracheal tube and nasogastric tube are in satisfactory position Critical Care Progress Note - Nutrition Nutrition: Nutrition Category Date Time Status NPO Diet [DIET] Diets 08/15/18 Breakfast Ordered Addendum Addendum: 08/16/18 12:55 ICU Attending Addendum Patient seen and examined. Case reviewed on round with housestaff. Agree with resident note above with the following additions/exceptions 72 year old female with a PMHx of paroxysmal atrial fibrillation, non-ischemic cardiomyopathy, CAD, poorly controlled non home O2 COPD secondary to medication compliance and secondary to tobacco abuse who presented to the ED for shortness of breath for the past few days: likely induced by receiving benzo on precedex since yesterday failed PS trial today, very agitated likely large psych component, consult psych for recs on anxiolytic meds which wi ll not compromise her resp status cnot low vt ventilation for now broad spectrum abx tx as CODP exasc woith steroids abx and duonebs q 6hrs standing cont cardizem drip for afib rvr f/u cardio recs Rest of care as above in housestaff note Derian Rodriguez MD Pulmonary Critical Care Attending CC Time 35 mins
[2018-08-16] MEDS: MethylPREDNISolone 40 mg Vial IVP SCH ×2 (07:42→19:51)
--- NOTE | 2018-08-16 09:33 | RAD ---
Date of service: 08/16/2018 HISTORY: evaluation fluid status, ET tube COMPARISON: No prior. TECHNIQUE: 1 view obtained. FINDINGS: LUNGS: No active pulmonary disease. PLEURA: No significant pleural effusion identified, no pneumothorax apparent. CARDIOVASCULAR: Aortic calcification Normal cardiac size. No pulmonary vascular congestion. OSSEOUS STRUCTURES: No significant abnormalities. VISUALIZED UPPER ABDOMEN: Normal. OTHER FINDINGS: None. IMPRESSION: The endotracheal tube and nasogastric tube are in satisfactory position
[2018-08-16] MEDS: cefTRIAXone 1 gm 1 GM/100 ML BAG IVPB SCH (10:16)
[2018-08-16] MEDS: Enoxaparin 60 mg Syringe SC SCH ×2 (10:21→21:31)
--- NOTE | 2018-08-16 10:37 | CP.PCM.PCO ---
Physician Communication Note - Physician Communication Note Physician Communication Note: pt seen & examined, intubated,Iv cardizem,solumedrol &antibiotics regimen. 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
--- NOTE | 2018-08-16 11:59 | PN ---
DATE: 08/16/2018 REASON FOR THE CONSULTATION AND FOLLOWUP: Atrial fibrillation with rapid rate, status post DRAWING IN HAND, status post intubated, moved to ICU. SUBJECTIVE: The patient is much awake and alert. Heart rate is stable. Blood pressure is stable in the process of weaning of the vent. OBJECTIVE: GENERAL: Not in apparent distress. VITAL SIGNS: Temperature afebrile, heart rate 80, blood pressure 130/80. HEENT: PERRLA. Extraocular muscles intact. NECK: Supple. No carotid bruits. No thyromegaly. CHEST: Clear to auscultation. HEART: S1 and S2, regular. ABDOMEN: Soft. EXTREMITIES: Clubbing and cyanosis, negative. LABORATORY DATA: WBC 11.1, hemoglobin 12.8, hematocrit 39.4, platelet count 230. Chemistry shows sodium of 130, potassium 4.2, chloride 100, carbon dioxide 29, anion gap of 12, BUN 37, creatinine 0.7. Troponin 0.14, 0.15, and 0.12. IMPRESSION: A 72-year-old female with past medical history significant for chronic obstructive pulmonary disease, paroxysmal atrial fibrillation, nonischemic cardiomyopathy, status post cardiac catheterization twice, status post cardiac catheterization noncompliant with medications, active tobacco abuse, admitted with acute exacerbation of chronic obstructive pulmonary disease, atrial fibrillation with rapid ventricular rate. While in the medical floor, the patient DRAWING IN HAND requiring intubation, moved to ICU, now the patient is intubated, now heart rate is stable in the process of weaning of the vent. Recent echo and MUGA scan shows significant improvement of left ventricular function, though the patient's borderline troponin positive most likely secondary to a stress, I doubted it is a ischemia 0.14 to 0.12 indeterminate range. RECOMMENDATIONS: Wean of the vent as tolerated. Continue Cardizem. Once the patient is stabilized, we can discontinue IV Cardizem and then changed to p.o. once the patient is extubated when stable and we will change all the p.o. meds. Continue Coumadin, continue atorvastatin, continue gentle diuretics. We will follow with you. We will resume back also after the patient get extubated. We will follow further recommendation depending upon the hospital course. We will follow with you. Continue anticoagulation with a goal to keep INR between 2. Thank you for providing us the opportunity in taking care of the patient, Demian Alston. Mak Mendez MD
--- NOTE | 2018-08-16 12:32 | CP.PCM.PN ---
<Riley Dumont - Last Filed: 08/16/18 12:28> Subjective - Date & Time of Evaluation Date of Evaluation: 08/16/18 Time of Evaluation: 07:00 - Subjective Subjective: Patient seen and examined at bedside. Patient intubated and sedated. Patient received Ativan overnight for agitation. ROS unobtainable secondary to acute status. Objective - Vital Signs/Intake and Output Vital Signs (last 24 hours): Temp Pulse Resp BP Pulse Ox 97.9 F 98 H 26 H 124/78 98 08/16/18 08:00 08/16/18 10:21 08/15/18 06:00 08/16/18 10:21 08/15/18 22:59 Intake and Output: 08/16/18 08/16/18 06:59 18:59 Intake Total 198 100 Balance 198 100 - Medications Medications: Current Medications Albuterol/Ipratropium (Duoneb 3 Mg/0.5 Mg (3 Ml) Ud) 3 ml IH [id number] [facility] Last Admin: 08/16/18 07:28 Dose: 3 ml Aspirin (Aspirin Chewable) 81 mg PO DAILY [facility] Last Admin: 08/16/18 10:15 Dose: 81 mg Atorvastatin Calcium (Lipitor) 10 mg PO HS [facility] Last Admin: 08/15/18 22:03 Dose: 10 mg Dextrose (Dextrose 50% Inj) 0 ml IV STAT PRN; Protocol PRN Reason: Hypoglycemia Protocol Digoxin (Digoxin) 0.125 mg PO DAILY [facility] Digoxin (Lanoxin) 0.25 mg PO 1400 NORA Diltiazem HCl (Cardizem) 30 mg PO Q6H [facility] Last Admin: 08/16/18 10:21 Dose: 30 mg Enoxaparin Sodium (Lovenox) 60 mg 1 mg/kg (60 mg) SC Q12H [facility]; Protocol Last Admin: 08/16/18 10:21 Dose: 60 mg Famotidine (Pepcid) 20 mg PO DAILY [facility] Last Admin: 08/16/18 10:13 Dose: 20 mg Furosemide (Lasix) 40 mg PO DAILY [facility] Furosemide (Lasix) 40 mg IVP DAILY [facility] Last Admin: 08/16/18 10:14 Dose: 40 mg Gabapentin (Neurontin) 400 mg PO QID [facility]; Protocol Last Admin: 08/16/18 10:13 Dose: 400 mg Doxycycline Hyclate 100 mg/ (Sodium Chloride) 100 mls @ 100 mls/hr IVPB Q12 NORA; Protocol Last Admin: 08/16/18 10:16 Dose: 100 mls/hr Ceftriaxone Sodium (Rocephin 1 Gram Ivpb) 1 gm in 100 mls @ 100 mls/hr IVPB DAILY [facility]; Protocol Last Admin: 08/16/18 10:16 Dose: 100 mls/hr diltiaZEM IVPB 100mg in NS (Cardizem 100mg In Ns) 100 mls @ 5 mls/hr IV .Q20H PRN; Protocol PRN Reason: TITRATE PER MD ORDER Last Titration: 08/15/18 11:32 Dose: 0 mg/hr, 0 mls/hr Dextrose (Dextrose 5% In Water 1000 Ml) 1,000 mls @ 0 mls/hr IV .Q0M PRN; Protocol PRN Reason: Hypoglycemia Protocol Dexmedetomidine HCl (Precedex 400mcg/100ml) 400 mcg in 100 mls @ 3.084 mls/hr IV .Q24H PRN; Protocol PRN Reason: Agitation Last Admin: 08/16/18 10:58 Dose: 1 mcg/kg/hr, 15.422 mls/hr Levalbuterol HCl (Xopenex) 1.25 mg IH [id number] PRN PRN Reason: Shortness of Breath Last Admin: 08/15/18 00:02 Dose: 1.25 mg Levalbuterol HCl (Xopenex) 0.63 mg IH [id number] PRN PRN Reason: Shortness of Breath Last Admin: 08/15/18 06:29 Dose: 0.63 mg Methylprednisolone (Solu-Medrol) 40 mg IVP Q12H NORA Last Admin: 08/16/18 07:42 Dose: 40 mg Metoprolol Tartrate (Lopressor) 25 mg PO BID NORA Last Admin: 08/16/18 10:16 Dose: 25 mg Mupirocin (Bactroban Ointment) 0 gm NS BID [facility] Stop: 08/21/18 10:01 Verapamil HCl (Verapamil Inj) 2.5 mg IVP Q6H PRN PRN Reason: Heart rate Last Admin: 08/14/18 18:52 Dose: 2.5 mg Warfarin Sodium (Coumadin) 3 mg PO 1800 NORA; Protocol - Labs Labs: 08/16/18 06:15 08/16/18 06:15 PT 16.0 SECONDS (9.4-12.5) H 08/16/18 06:15 INR 1.42 08/16/18 06:15 APTT 43.0 Seconds (26.9-38.3) H 08/14/18 06:55 - Constitutional Appears: In Acute Distress, Chronically Ill - Head Exam Head Exam: ATRAUMATIC, NORMAL INSPECTION, NORMOCEPHALIC - ENT Exam ENT Exam: Mucous Membranes Dry, Normal Exam Additional comments: Intubated - Respiratory Exam Respiratory Exam: Decreased Breath Sounds. absent: Rales, Rhonchi, Wheezes - Cardiovascular Exam Cardiovascular Exam: Irregular Rhythm, +S1, +S2. absent: Gallop, Rubs, Murmur - GI/Abdominal Exam GI & Abdominal Exam: Soft, Normal Bowel Sounds. absent: Guarding, Tenderness - Extremities Exam Extremities Exam: Normal Inspection. absent: Calf Tenderness, Pedal Edema - Neurological Exam Additional comments: Sedated - Skin Skin Exam: Dry, Normal Color, Warm Assessment and Plan - Assessment and Plan (Free Text) Plan: 72 year old female with past medical history of atrial fibrillation on coumadin, cardiomyopathy, CAD, COPD and chronic tobacco use presents to the hospital with COPD exacerbation in the setting of A-fib with RVR complicated by hypercapnic respiratory failure requiring intubating and ICU admission. Hypercapneic Respiratory Failure Patient intubated and sedated Precedex drip Daily CXR, today CXR negative for acute processes Duonebs q6h scheduled Daily ABG Daily weaning trial COPD exacerbation solumedrol 40mg Q12H Duonebs q6h scheduled Continue Doxycycline, Rocephin Atrial Fibrillation with RVR, resolved Patient converted from Cardizem drip to oral cardizem Verapamil PRN Continue Lovenox 60mg BID for non-therapuetic INR Continue Coumadin 3mg Recheck INR in AM Elevated troponins Likely secondary to COPD exacerbation/Hypercapneic respiratory failure Stable, no further plan from cardiology Diastolic CHF Continue with lasix Continue Atorvastatin Continue ASA Continue Digoxin HTN Continue lisinopril and Metoprolol Prophylaxis Pepcid Lovenox Julia, PGY-3 <Fabio Wlaters - Last Filed: 08/16/18 15:19> Objective - Vital Signs/Intake and Output Vital Signs (last 24 hours): Temp Pulse Resp BP Pulse Ox 98 F 98 H 26 H 124/78 98 08/16/18 12:00 08/16/18 12:00 08/15/18 06:00 08/16/18 10:21 08/15/18 22:59 Intake and Output: 08/16/18 08/16/18 06:59 18:59 Intake Total 198 100 Balance 198 100 - Medications Medications: Current Medications Albuterol/Ipratropium (Duoneb 3 Mg/0.5 Mg (3 Ml) Ud) 3 ml IH [id number] [facility] Last Admin: 08/16/18 13:26 Dose: 3 ml Aspirin (Aspirin Chewable) 81 mg PO DAILY [facility] Last Admin: 08/16/18 10:15 Dose: 81 mg Atorvastatin Calcium (Lipitor) 10 mg PO HS [facility] Last Admin: 08/15/18 22:03 Dose: 10 mg Dextrose (Dextrose 50% Inj) 0 ml IV STAT PRN; Protocol PRN Reason: Hypoglycemia Protocol Digoxin (Digoxin) 0.125 mg PO DAILY [facility] Digoxin (Lanoxin) 0.25 mg PO 1400 [facility] Last Admin: 08/16/18 13:39 Dose: 0.25 mg Diltiazem HCl (Cardizem) 30 mg PO Q6H NORA Last Admin: 08/16/18 10:21 Dose: 30 mg Enoxaparin Sodium (Lovenox) 60 mg 1 mg/kg (60 mg) SC Q12H NORA; Protocol Last Admin: 08/16/18 10:21 Dose: 60 mg Famotidine (Pepcid) 20 mg PO DAILY [facility] Last Admin: 08/16/18 10:13 Dose: 20 mg Furosemide (Lasix) 40 mg PO DAILY [facility] Furosemide (Lasix) 40 mg IVP DAILY [facility] Last Admin: 08/16/18 10:14 Dose: 40 mg Gabapentin (Neurontin) 400 mg PO QID [facility]; Protocol Last Admin: 08/16/18 13:42 Dose: 400 mg Doxycycline Hyclate 100 mg/ (Sodium Chloride) 100 mls @ 100 mls/hr IVPB Q12 NORA; Protocol Last Admin: 08/16/18 10:16 Dose: 100 mls/hr Ceftriaxone Sodium (Rocephin 1 Gram Ivpb) 1 gm in 100 mls @ 100 mls/hr IVPB DAILY [facility]; Protocol Last Admin: 08/16/18 10:16 Dose: 100 mls/hr diltiaZEM IVPB 100mg in NS (Cardizem 100mg In Ns) 100 mls @ 5 mls/hr IV .Q20H PRN; Protocol PRN Reason: TITRATE PER MD ORDER Last Titration: 08/15/18 11:32 Dose: 0 mg/hr, 0 mls/hr Dextrose (Dextrose 5% In Water 1000 Ml) 1,000 mls @ 0 mls/hr IV .Q0M PRN; Protocol PRN Reason: Hypoglycemia Protocol Dexmedetomidine HCl (Precedex 400mcg/100ml) 400 mcg in 100 mls @ 3.084 mls/hr IV .Q24H PRN; Protocol PRN Reason: Agitation Last Admin: 08/16/18 10:58 Dose: 1 mcg/kg/hr, 15.422 mls/hr Levalbuterol HCl (Xopenex) 1.25 mg IH [id number] PRN PRN Reason: Shortness of Breath Last Admin: 08/15/18 00:02 Dose: 1.25 mg Levalbuterol HCl (Xopenex) 0.63 mg IH [id number] PRN PRN Reason: Shortness of Breath Last Admin: 08/15/18 06:29 Dose: 0.63 mg Methylprednisolone (Solu-Medrol) 40 mg IVP Q12H NORA Last Admin: 08/16/18 07:42 Dose: 40 mg Metoprolol Tartrate (Lopressor) 25 mg PO BID [facility] Last Admin: 08/16/18 10:16 Dose: 25 mg Mupirocin (Bactroban Ointment) 0 gm NS BID NORA Stop: 08/21/18 10:01 Verapamil HCl (Verapamil Inj) 2.5 mg IVP Q6H PRN PRN Reason: Heart rate Last Admin: 08/14/18 18:52 Dose: 2.5 mg Warfarin Sodium (Coumadin) 3 mg PO 1800 NORA; Protocol - Labs Labs: 08/16/18 06:15 08/16/18 06:15 PT 16.0 SECONDS (9.4-12.5) H 08/16/18 06:15 INR 1.42 08/16/18 06:15 APTT 43.0 Seconds (26.9-38.3) H 08/14/18 06:55 Attending/Attestation - Attestation I have personally seen and examined this patient.: Yes I have fully participated in the care of the patient.: Yes I have reviewed all pertinent clinical information, including history, physical exam and plan: Yes Notes (Text): 08/16/18 15:14 72 year old female with past medical history of atrial fibrillation on coumadin, cardiomyopathy, CAD, COPD and active tobacco use who presented with complaint of shortness of breath. She was admitted for COPD exacerbation and AFib with RVR and started on iv steroids and cardizem drip in addition to xopenex and antibiotics. Yesterday morning she had episode of respiratory distress found to have acute hypercapneic respiratory failure requiring intubation. She was transferred to ICU. Continue with serial ABG and daily weaning trials as per beauty culturist. Cardiology is following as well for afib and mildly elevated troponins which have been stable. Continue with coumadin and lovenox for now as INR remains subtherapeutic. Continue with lasix. Continue to monitor LFTs closely. Hepatitis panel ordered. Consider ultrasound if continues to trend up. Fabio Walters MD Hospitalist.
[2018-08-16] MEDS: Digoxin 250 mcg (0.25 mg) Tab PO SCH (13:39)
[2018-08-16] MEDS: Mupirocin 2% Ointment 15 GM TUBE NS SCH (17:46)
[2018-08-16] MEDS: Levalbuterol 0.63 MG/3 ML Inhal Soln UD IH PRN (19:35)
[2018-08-16 21:30] LABS: HEPATITIS B SURFACE AG Negative (NEGATIVE)
[2018-08-16 21:35] LABS: HEPATITIS A IGM NEGATIVE (NEGATIVE); HEPATITIS B CORE AB NEGATIVE (NEGATIVE)
[2018-08-16 21:47] LABS: HEPATITIS C ANTIBODY NEGATIVE (NEGATIVE)
[2018-08-17] MEDS: Albuterol-Ipratrop 3 mg / 0.5 (3 ml) UD IH SCH ×5 (01:52→20:00)
[2018-08-17] MEDS: Dexmedetomidine 400mcg/100mL 400 MCG/100 ML BOTTLE IV PRN ×2 (03:26→07:30)
[2018-08-17 05:08] LABS: ARTERIAL BLOOD GAS HCO3 31.3 mmol/L (21-28); ARTERIAL BLOOD GAS PCO2 42 mm/Hg (35-45); ARTERIAL BLOOD GAS PH 7.48 (7.35-7.45); ARTERIAL BLOOD GAS TCO2 32.6 mmol.L (22-28)
[2018-08-17 06:21] LABS: HEMOGLOBIN 13.3 g/dL (12.0-16.0); MEAN CELL VOLUME 88.3 fl (80.0-105.0); MEAN CORPUSCULAR HEMOGLOBIN 28.7 pg (25.0-35.0); MEAN CORPUSCULAR HGB CONC 32.5 g/dl (31.0-37.0); MEAN PLATELET VOLUME 9.3 fl (7.0-11.0); RBC 4.63 10^6/uL (3.5-6.1); RED CELL DISTRIBUTION WIDTH 14.5 % (11.5-14.5); WHITE BLOOD COUNT 11.5 10^3/uL (4.5-11.0)
[2018-08-17 06:28] LABS: INR 1.42
[2018-08-17 07:27] LABS: ALB/GLOB RATIO 1.4 (1.1-1.8); ALBUMIN 3.7 g/dL (3.0-4.8); ALT/SGPT 186 U/L (7-56); AST/SGOT 135 U/L (14-36); BLOOD UREA NITROGEN 41 mg/dL (7-21); CALCIUM 9.2 mg/dL (8.4-10.5); GFR NON-AFRICAN AMERICAN > 60
[2018-08-17] MEDS: MethylPREDNISolone 40 mg Vial IVP SCH ×3 (07:38→18:35)
[2018-08-17] MEDS: Levalbuterol 1.25 MG/3 ML Inhal Soln UD IH PRN ×3 (08:46→15:19)
[2018-08-17] MEDS: Budesonide 0.5 mg/2 ml Inhal Susp UD IH SCH ×2 (09:06→20:00)
[2018-08-17] MEDS ORDERED: MethylPREDNISolone 40 mg Vial IVP ONE (09:20)
--- NOTE | 2018-08-17 09:23 | CP.CCUPN ---
<WendySánchez R - Last Filed: 08/17/18 09:39> CCU Subjective - Physician Review Subjective (Free Text): PGY-2 ICU progress note for Dr Reynaga Patient extubated this morning. She appears very anxious. Placed on bipap. Still with some wheezing. Complained of feeling cold and stated she was hungry. C/o sob. Denied cp. 08/17/18 09:21 CCU Objective - Vital Signs / Intake & Output Vital Signs (Last 4 hours): Vital Signs Temp Pulse Resp BP Pulse Ox 08/17/18 08:00 98.7 F 78 08/17/18 07:01 78 116/63 94 L 08/17/18 07:00 85 86 L 08/17/18 06:57 32 H 96 08/17/18 06:00 75 110/69 97 Intake and Output (Last 8hrs): Intake & Output 08/16/18 08/17/18 08/17/18 22:59 06:59 14:59 Intake Total 610 1044 100 Output Total 1000 600 Balance -390 444 100 Intake: IV 610 624 100 IVF 60 Left Forearm 100 Right Forearm 324 antibiotics 200 precedex 250 Tube Feeding 420 Output: Urine 1000 600 Urethral (Ferguson) 1000 600 Stool 0 - Physical Exam Head: Positive for: Atraumatic, Normocephalic Pupils: Positive for: PERRL Extroacular Muscles: Positive for: EOMI Conjunctiva: Positive for: Normal Mouth: Positive for: Moist Mucous Membranes Neck: Positive for: Normal Range of Motion Respiratory/Chest: Positive for: Good Air Exchange, Wheezes, Rales, Other (currently on bipap). Negative for: Respiratory Distress, Accessory Muscle Use Cardiovascular: Positive for: Regular Rate and Rhythm, Normal S1, S2. Negative for: Murmurs Abdomen: Negative for: Tenderness, Distention, Peritoneal Signs Back: Positive for: Normal Inspection Upper Extremity: Positive for: Normal Inspection. Negative for: Cyanosis, Edema Lower Extremity: Positive for: Normal Inspection. Negative for: Edema Neurological: Positive for: GCS=15, CN II-XII Intact, Speech Normal Skin: Positive for: Warm, Dry, Normal Color. Negative for: Rashes Psychiatric: Positive for: Alert, Oriented x 3 - Medications Active Medications: Active Medications Generic Name Dose Route Start Last Admin Trade Name Freq PRN Reason Stop Dose Admin Albuterol/Ipratropium 3 ml 08/15/18 11:00 08/17/18 07:02 Duoneb 3 Mg/0.5 Mg (3 Ml) Ud IH 3 ml [id number] WIL Administration Aspirin 81 mg 08/15/18 11:00 08/16/18 10:15 Aspirin Chewable PO 81 mg DAILY WIL Administration Atorvastatin Calcium 10 mg 08/14/18 22:00 08/16/18 21:31 Lipitor PO 10 mg HS WIL Administration Budesonide 0.5 mg 08/17/18 09:00 08/17/18 09:06 Pulmicort Respules IH 0.5 mg [id number] WIL Administration Dextrose 0 ml 08/15/18 09:54 Dextrose 50% Inj IV STAT PRN Hypoglycemia Protocol Protocol Digoxin 0.25 mg 08/16/18 14:00 08/16/18 13:39 Lanoxin PO 0.25 mg 1400 WIL Administration Diltiazem HCl 30 mg 08/15/18 17:00 08/17/18 04:37 Cardizem PO 30 mg Q6H WIL Administration Enoxaparin Sodium 60 mg 08/14/18 09:45 08/16/18 21:31 Lovenox 1 mg/kg (60 mg) 60 mg SC Administration Q12H WIL Protocol Famotidine 20 mg 08/15/18 10:00 08/16/18 10:13 Pepcid PO 20 mg DAILY WIL Administration Furosemide 40 mg 08/15/18 10:00 Lasix PO DAILY WIL Furosemide 40 mg 08/15/18 10:00 08/16/18 10:14 Lasix IVP 40 mg DAILY WIL Administration Gabapentin 400 mg 08/14/18 14:00 08/16/18 21:31 Neurontin PO 400 mg QID WIL Administration Protocol diltiaZEM IVPB 100mg in NS 100 mls @ 5 mls/hr 08/15/18 09:04 08/15/18 11:32 Cardizem 100mg In Ns IV 0 mg/hr .Q20H PRN 0 mls/hr TITRATE PER MD ORDER Titration Protocol 5 MG/HR Dextrose 1,000 mls @ 0 mls/hr 08/15/18 09:54 Dextrose 5% In Water 1000 Ml IV .Q0M PRN Hypoglycemia Protocol Protocol Per Protocol Dexmedetomidine HCl 400 mcg in 100 mls @ 3.084 mls/hr 08/15/18 17:48 08/17/18 07:30 Precedex 400mcg/100ml IV 1.5 mcg/kg/hr .Q24H PRN 23.133 mls/hr Agitation Administration Protocol 0.2 MCG/KG/HR Levalbuterol HCl 1.25 mg 08/14/18 11:28 08/17/18 08:53 Xopenex IH 1.25 mg [id number] PRN Administration Shortness of Breath Levalbuterol HCl 0.63 mg 08/14/18 11:28 08/16/18 19:35 Xopenex IH 0.63 mg [id number] PRN Administration Shortness of Breath Lorazepam 0.5 mg 08/16/18 15:24 08/17/18 00:33 Ativan IVP 0.5 mg TID PRN Administration Anxiety Protocol Methylprednisolone 40 mg 08/17/18 09:00 Solu-Medrol IVP Q8H WIL Metoprolol Tartrate 25 mg 08/15/18 18:00 08/16/18 17:45 Lopressor PO 25 mg BID WIL Administration Mupirocin 0 gm 08/16/18 18:00 08/16/18 17:46 Bactroban Ointment NS 08/21/18 10:01 1 oin BID WIL Administration Nicotine 1 patch 08/17/18 10:00 Nicoderm Cq TD DAILY WIL Verapamil HCl 2.5 mg 08/14/18 15:39 08/14/18 18:52 Verapamil Inj IVP 2.5 mg Q6H PRN Administration Heart rate Warfarin Sodium 3 mg 08/16/18 18:00 08/16/18 17:40 Coumadin PO 3 mg 1800 WIL Administration Protocol - Patient Studies Lab Studies: Microbiology Studies 08/14/18 07:00 Blood Culture - Preliminary Blood-Venous NO GROWTH AFTER 3 DAYS 08/14/18 06:40 Blood Culture - Preliminary Blood-Venous NO GROWTH AFTER 3 DAYS 08/15/18 08:00 MRSA Culture (Admit) - Final [facility] Lab Studies 08/17/18 08/17/18 08/17/18 Range/Units 06:05 06:00 06:00 WBC (4.5-11.0) 10^3/uL RBC (3.5-6.1) 10^6/uL Hgb (12.0-16.0) g/dL Hct (36.0-48.0) % MCV (80.0-105.0) fl MCH (25.0-35.0) pg MCHC (31.0-37.0) g/dl RDW (11.5-14.5) % Plt Count (120.0-450.0) 10^3/uL MPV (7.0-11.0) fl PT 16.0 H (9.4-12.5) SECONDS INR 1.42 pCO2 (35-45) mm/Hg pO2 (80-100) mm/Hg HCO3 (21-28) mmol/L ABG pH (7.35-7.45) ABG Total CO2 (22-28) mmol.L ABG O2 Saturation (95-98) % ABG Base Excess (-2.0-3.0) mmol/L ABG Potassium (3.6-5.2) mmol/L Sodium 140 (132-148) mmol/L Chloride 103 (98-107) mmol/L Glucose (65-105) mg/dl Lactate (0.7-2.1) mmol/L FiO2 % Potassium 4.3 (3.6-5.0) mmol/L Carbon Dioxide 29 (21-33) mmol/L Anion Gap 12 (10-20) BUN 41 H (7-21) mg/dL Creatinine 0.6 L (0.7-1.2) mg/dl Est GFR ( Amer) > 60 Est GFR (Non-Af Amer) > 60 POC Glucose (mg/dL) 202 H (65-110) mg/dL Random Glucose 178 H (70-110) mg/dL Calcium 9.2 (8.4-10.5) mg/dL Magnesium 2.1 (1.7-2.2) mg/dL Total Bilirubin 0.4 (0.2-1.3) mg/dL AST 135 H (14-36) U/L ALT 186 H (7-56) U/L Alkaline Phosphatase 57 (38-126) U/L Total Protein 6.4 (5.8-8.3) g/dL Albumin 3.7 (3.0-4.8) g/dL Globulin 2.7 gm/dL Albumin/Globulin Ratio 1.4 (1.1-1.8) Arterial Blood Potassium (3.6-5.2) mmol/L Hepatitis A IgM Ab (NEGATIVE) Hep Bs Antigen (NEGATIVE) Hep B Core IgM Ab (NEGATIVE) Hepatitis C Antibody (NEGATIVE) 08/17/18 08/17/18 08/17/18 Range/Units 06:00 05:00 03:40 WBC 11.5 H (4.5-11.0) 10^3/uL RBC 4.63 (3.5-6.1) 10^6/uL Hgb 13.3 (12.0-16.0) g/dL Hct 40.9 (36.0-48.0) % MCV 88.3 (80.0-105.0) fl MCH 28.7 (25.0-35.0) pg MCHC 32.5 (31.0-37.0) g/dl RDW 14.5 (11.5-14.5) % Plt Count 241 (120.0-450.0) 10^3/uL MPV 9.3 (7.0-11.0) fl PT (9.4-12.5) SECONDS INR pCO2 42 (35-45) mm/Hg pO2 128.0 H (80-100) mm/Hg HCO3 31.3 H (21-28) mmol/L ABG pH 7.48 H (7.35-7.45) ABG Total CO2 32.6 H (22-28) mmol.L ABG O2 Saturation 99.0 H (95-98) % ABG Base Excess 7.0 H (-2.0-3.0) mmol/L ABG Potassium 3.8 (3.6-5.2) mmol/L Sodium 139.0 (132-148) mmol/L Chloride 107.0 (98-107) mmol/L Glucose 175 H (65-105) mg/dl Lactate 1.3 (0.7-2.1) mmol/L FiO2 35.0 % Potassium (3.6-5.0) mmol/L Carbon Dioxide (21-33) mmol/L Anion Gap (10-20) BUN (7-21) mg/dL Creatinine (0.7-1.2) mg/dl Est GFR ( Amer) Est GFR (Non-Af Amer) POC Glucose (mg/dL) 176 H (65-110) mg/dL Random Glucose (70-110) mg/dL Calcium (8.4-10.5) mg/dL Magnesium (1.7-2.2) mg/dL Total Bilirubin (0.2-1.3) mg/dL AST (14-36) U/L ALT (7-56) U/L Alkaline Phosphatase (38-126) U/L Total Protein (5.8-8.3) g/dL Albumin (3.0-4.8) g/dL Globulin gm/dL Albumin/Globulin Ratio (1.1-1.8) Arterial Blood Potassium 3.8 (3.6-5.2) mmol/L Hepatitis A IgM Ab (NEGATIVE) Hep Bs Antigen (NEGATIVE) Hep B Core IgM Ab (NEGATIVE) Hepatitis C Antibody (NEGATIVE) 08/16/18 08/16/18 08/16/18 Range/Units 17:52 16:00 11:21 WBC (4.5-11.0) 10^3/uL RBC (3.5-6.1) 10^6/uL Hgb (12.0-16.0) g/dL Hct (36.0-48.0) % MCV (80.0-105.0) fl MCH (25.0-35.0) pg MCHC (31.0-37.0) g/dl RDW (11.5-14.5) % Plt Count (120.0-450.0) 10^3/uL MPV (7.0-11.0) fl PT (9.4-12.5) SECONDS INR pCO2 (35-45) mm/Hg pO2 (80-100) mm/Hg HCO3 (21-28) mmol/L ABG pH (7.35-7.45) ABG Total CO2 (22-28) mmol.L ABG O2 Saturation (95-98) % ABG Base Excess (-2.0-3.0) mmol/L ABG Potassium (3.6-5.2) mmol/L Sodium (132-148) mmol/L Chloride (98-107) mmol/L Glucose (65-105) mg/dl Lactate (0.7-2.1) mmol/L FiO2 % Potassium (3.6-5.0) mmol/L Carbon Dioxide (21-33) mmol/L Anion Gap (10-20) BUN (7-21) mg/dL Creatinine (0.7-1.2) mg/dl Est GFR ( Amer) Est GFR (Non-Af Amer) POC Glucose (mg/dL) 164 H 159 H (65-110) mg/dL Random Glucose (70-110) mg/dL Calcium (8.4-10.5) mg/dL Magnesium (1.7-2.2) mg/dL Total Bilirubin (0.2-1.3) mg/dL AST (14-36) U/L ALT (7-56) U/L Alkaline Phosphatase (38-126) U/L Total Protein (5.8-8.3) g/dL Albumin (3.0-4.8) g/dL Globulin gm/dL Albumin/Globulin Ratio (1.1-1.8) Arterial Blood Potassium (3.6-5.2) mmol/L Hepatitis A IgM Ab Negative (NEGATIVE) Hep Bs Antigen Negative (NEGATIVE) Hep B Core IgM Ab Negative (NEGATIVE) Hepatitis C Antibody Negative (NEGATIVE) Laboratory Results - last 24 hr 08/16/18 08/16/18 08/16/18 11:21 16:00 17:52 WBC RBC Hgb Hct MCV MCH MCHC RDW Plt Count MPV PT INR pCO2 pO2 HCO3 ABG pH ABG Total CO2 ABG O2 Saturation ABG Base Excess ABG Potassium Sodium Chloride Glucose Lactate FiO2 Potassium Carbon Dioxide Anion Gap BUN Creatinine Est GFR ( Amer) Est GFR (Non-Af Amer) POC Glucose (mg/dL) 159 H 164 H Random Glucose Calcium Magnesium Total Bilirubin AST ALT Alkaline Phosphatase Total Protein Albumin Globulin Albumin/Globulin Ratio Arterial Blood Potassium Hepatitis A IgM Ab Negative Hep Bs Antigen Negative Hep B Core IgM Ab Negative Hepatitis C Antibody Negative 08/17/18 08/17/18 08/17/18 03:40 05:00 06:00 WBC 11.5 H RBC 4.63 Hgb 13.3 Hct 40.9 MCV 88.3 MCH 28.7 MCHC 32.5 RDW 14.5 Plt Count 241 MPV 9.3 PT INR pCO2 42 pO2 128.0 H HCO3 31.3 H ABG pH 7.48 H ABG Total CO2 32.6 H ABG O2 Saturation 99.0 H ABG Base Excess 7.0 H ABG Potassium 3.8 Sodium 139.0 Chloride 107.0 Glucose 175 H Lactate 1.3 FiO2 35.0 Potassium Carbon Dioxide Anion Gap BUN Creatinine Est GFR ( Amer) Est GFR (Non-Af Amer) POC Glucose (mg/dL) 176 H Random Glucose Calcium Magnesium Total Bilirubin AST ALT Alkaline Phosphatase Total Protein Albumin Globulin Albumin/Globulin Ratio Arterial Blood Potassium 3.8 Hepatitis A IgM Ab Hep Bs Antigen Hep B Core IgM Ab Hepatitis C Antibody 08/17/18 08/17/18 08/17/18 06:00 06:00 06:05 WBC RBC Hgb Hct MCV MCH MCHC RDW Plt Count MPV PT 16.0 H INR 1.42 pCO2 pO2 HCO3 ABG pH ABG Total CO2 ABG O2 Saturation ABG Base Excess ABG Potassium Sodium 140 Chloride 103 Glucose Lactate FiO2 Potassium 4.3 Carbon Dioxide 29 Anion Gap 12 BUN 41 H Creatinine 0.6 L Est GFR ( Amer) > 60 Est GFR (Non-Af Amer) > 60 POC Glucose (mg/dL) 202 H Random Glucose 178 H Calcium 9.2 Magnesium 2.1 Total Bilirubin 0.4 AST 135 H ALT 186 H Alkaline Phosphatase 57 Total Protein 6.4 Albumin 3.7 Globulin 2.7 Albumin/Globulin Ratio 1.4 Arterial Blood Potassium Hepatitis A IgM Ab Hep Bs Antigen Hep B Core IgM Ab Hepatitis C Antibody Radiology Impressions: Radiology Impressions Chest X-Ray 08/16/18 06:00 IMPRESSION: The endotracheal tube and nasogastric tube are in satisfactory position Fingerstick Blood Sugar Results: 202 Review of Systems - Review of Systems All systems: reviewed and no additional remarkable complaints except (as stated in HPI) Critical Care Progress Note - Nutrition Nutrition: Nutrition Category Date Time Status NPO Diet [DIET] Diets 08/15/18 Breakfast Ordered Assessment/Plan - Assessment and Plan (Free Text) Plan: Mrs Arciniega is a 72 year old female with a PMHx of paroxysmal atrial fibrillation, non-ischemic cardiomyopathy, CAD, poorly controlled non home O2 COPD secondary to medication compliance and secondary to tobacco abuse who pre sented to the ED for shortness of breath for the past few days: Cardiovascular: #NSTEMI, #Paroxysmal Atrial Fibrillation, #Diastolic CHF, #CAD, Non-Ischemic Cardiomyopathy -cardiology consulted, Dr Mendez -troponin <0.01 -> 0.15 -> 0.12 -> 0.14 -probnp 1929 -echo 01/2018 showed EF 54%, limited study, mild TR, mild MR -cardizem drip prn to control heart rate -> currently off -> resumed home med cardizem 30mg po q6h wil -resumed home med metoprolol tartrate 25mg po bid wil -resumed home digoxin 0.25mg po qd, loaded with digoxin 1g on day of admission as digoxin level was < 0.4 likely non-compliance with med at home -anticoagulation with lovenox 60mg sc q12h -> bridge to warfarin, resumed home med warfarin 3mg po qd, goal INR 2-3 -aspirin 81mg po qd, lipitor 10mg po hs -verapamil 2.5mg ivp q6h prn for HR > 130 -lasix 40mg ivp qd Pulmonary: #COPD Exacerbation -extubated this AM - now placed on bipap -duoneb scheduled q6h -pulmicort 0.5 ih bid -titrate up solumedrol 40mg ivp q8h as patient still with wheezing ID: #Leukocytosis - tx empirically for COPD exacerbation - doxycycline 100mg ivp q12h (started 08/14) and rocephin 1g ivp qd (started 08/15) * both discontinued 08/17 - could be causing elevated LFTs and already received 4 days of abx - blood cx 08/14 negative up to date Renal: #Hyperkalemia, resolved -received 1 dose of patiromer Neuro: - AAOx3, no deficits Psychiatry: #Anxiety, #Agitation - resumed home psychiatry meds quetiapine 25mg po bid, sertraline 100mg po bid and alprazolam 1mg po tid * will get ekg to check qtc - consulted psychiatry Dr Linton, who can hopefully help find a suitable anxiolytic that does not cause respiratory issues GI: - start heart healthy diet today PPx: pepcid 20mg po qd, on therapeutic AC Seen and discussed with Dr Reynaga <Nile Reynaga - Last Filed: 08/17/18 11:53> CCU Objective - Vital Signs / Intake & Output Vital Signs (Last 4 hours): Vital Signs Temp Pulse BP 08/17/18 11:11 112 H 133/56 L 08/17/18 09:45 159 H 144/100 H 08/17/18 09:30 154 H 08/17/18 09:26 144/111 H 08/17/18 09:19 151 H 144/111 H 08/17/18 08:00 98.7 F 78 Intake and Output (Last 8hrs): Intake & Output 08/16/18 08/17/18 08/17/18 22:59 06:59 14:59 Intake Total 610 1044 100 Output Total 1000 600 Balance -390 444 100 Intake: IV 610 624 100 IVF 60 Left Forearm 100 Right Forearm 324 antibiotics 200 precedex 250 Tube Feeding 420 Output: Urine 1000 600 Urethral (Ferguson) 1000 600 Stool 0 - Medications Active Medications: Active Medications Generic Name Dose Route Start Last Admin Trade Name Freq PRN Reason Stop Dose Admin Albuterol/Ipratropium 3 ml 08/15/18 11:00 08/17/18 07:02 Duoneb 3 Mg/0.5 Mg (3 Ml) Ud IH 3 ml [id number] WIL Administration Alprazolam 1 mg 08/17/18 10:00 08/17/18 11:12 Xanax PO 1 mg TID WIL Administration Protocol Aspirin 81 mg 08/15/18 11:00 08/17/18 09:19 Aspirin Chewable PO 81 mg DAILY WIL Administration Atorvastatin Calcium 10 mg 08/14/18 22:00 08/16/18 21:31 Lipitor PO 10 mg HS WIL Administration Budesonide 0.5 mg 08/17/18 09:00 08/17/18 09:06 Pulmicort Respules IH 0.5 mg [id number] WIL Administration Dextrose 0 ml 08/15/18 09:54 Dextrose 50% Inj IV STAT PRN Hypoglycemia Protocol Protocol Digoxin 0.25 mg 08/16/18 14:00 08/16/18 13:39 Lanoxin PO 0.25 mg 1400 WIL Administration Digoxin 0.25 mg 08/17/18 14:30 Lanoxin IVP 08/17/18 14:31 ONCE ONE Enoxaparin Sodium 60 mg 08/14/18 09:45 08/17/18 09:27 Lovenox 1 mg/kg (60 mg) 60 mg SC Administration Q12H WIL Protocol Famotidine 20 mg 08/15/18 10:00 08/17/18 09:18 Pepcid PO 20 mg DAILY WIL Administration Furosemide 40 mg 08/15/18 10:00 Lasix PO DAILY WIL Furosemide 40 mg 08/15/18 10:00 08/17/18 09:26 Lasix IVP 40 mg DAILY WIL Administration Gabapentin 400 mg 08/14/18 14:00 08/17/18 09:20 Neurontin PO 400 mg QID WIL Administration Protocol diltiaZEM IVPB 100mg in NS 100 mls @ 5 mls/hr 08/15/18 09:04 08/15/18 11:32 Cardizem 100mg In Ns IV 0 mg/hr .Q20H PRN 0 mls/hr TITRATE PER MD ORDER Titration Protocol 5 MG/HR Dextrose 1,000 mls @ 0 mls/hr 08/15/18 09:54 Dextrose 5% In Water 1000 Ml IV .Q0M PRN Hypoglycemia Protocol Protocol Per Protocol Dexmedetomidine HCl 400 mcg in 100 mls @ 3.084 mls/hr 08/15/18 17:48 08/17/18 07:30 Precedex 400mcg/100ml IV 1.5 mcg/kg/hr .Q24H PRN 23.133 mls/hr Agitation Administration Protocol 0.2 MCG/KG/HR Insulin Human Regular 0 units 08/17/18 11:30 Humulin R Low SC ACHS WIL Protocol Levalbuterol HCl 1.25 mg 08/14/18 11:28 08/17/18 08:53 Xopenex IH 1.25 mg [id number] PRN Administration Shortness of Breath Levalbuterol HCl 0.63 mg 08/14/18 11:28 08/16/18 19:35 Xopenex IH 0.63 mg [id number] PRN Administration Shortness of Breath Methylprednisolone 40 mg 08/17/18 09:00 08/17/18 09:26 Solu-Medrol IVP 40 mg Q8H WIL Administration Metoprolol Tartrate 25 mg 08/15/18 18:00 08/17/18 09:19 Lopressor PO 25 mg BID WIL Administration Mupirocin 0 gm 08/16/18 18:00 08/16/18 17:46 Bactroban Ointment NS 08/21/18 10:01 1 oin BID WIL Administration Nicotine 1 patch 08/17/18 10:00 08/17/18 09:34 Nicoderm Cq TD 1 patch DAILY WIL Administration Quetiapine Fumarate 25 mg 08/17/18 10:00 08/17/18 09:42 Seroquel PO 25 mg BID [facility] Administration Protocol Sertraline HCl 100 mg 08/17/18 10:00 08/17/18 09:42 Zoloft PO 100 mg BID [facility] Administration Verapamil HCl 2.5 mg 08/14/18 15:39 08/17/18 09:45 Verapamil Inj IVP 2.5 mg Q6H PRN Administration Heart rate Verapamil HCl 40 mg 08/17/18 14:00 Calan Tab PO TID [facility] Warfarin Sodium 5 mg 08/17/18 10:07 Coumadin PO 1800 [facility] Protocol - Patient Studies Lab Studies: Microbiology Studies 08/14/18 07:00 Blood Culture - Preliminary Blood-Venous NO GROWTH AFTER 3 DAYS 08/14/18 06:40 Blood Culture - Preliminary Blood-Venous NO GROWTH AFTER 3 DAYS 08/15/18 08:00 MRSA Culture (Admit) - Final [facility] Lab Studies 08/17/18 08/17/18 08/17/18 Range/Units 06:05 06:00 06:00 WBC (4.5-11.0) 10^3/uL RBC (3.5-6.1) 10^6/uL Hgb (12.0-16.0) g/dL Hct (36.0-48.0) % MCV (80.0-105.0) fl MCH (25.0-35.0) pg MCHC (31.0-37.0) g/dl RDW (11.5-14.5) % Plt Count (120.0-450.0) 10^3/uL MPV (7.0-11.0) fl PT 16.0 H (9.4-12.5) SECONDS INR 1.42 pCO2 (35-45) mm/Hg pO2 (80-100) mm/Hg HCO3 (21-28) mmol/L ABG pH (7.35-7.45) ABG Total CO2 (22-28) mmol.L ABG O2 Saturation (95-98) % ABG Base Excess (-2.0-3.0) mmol/L ABG Potassium (3.6-5.2) mmol/L Sodium 140 (132-148) mmol/L Chloride 103 (98-107) mmol/L Glucose (65-105) mg/dl Lactate (0.7-2.1) mmol/L FiO2 % Potassium 4.3 (3.6-5.0) mmol/L Carbon Dioxide 29 (21-33) mmol/L Anion Gap 12 (10-20) BUN 41 H (7-21) mg/dL Creatinine 0.6 L (0.7-1.2) mg/dl Est GFR ( Amer) > 60 Est GFR (Non-Af Amer) > 60 POC Glucose (mg/dL) 202 H (65-110) mg/dL Random Glucose 178 H (70-110) mg/dL Calcium 9.2 (8.4-10.5) mg/dL Magnesium 2.1 (1.7-2.2) mg/dL Total Bilirubin 0.4 (0.2-1.3) mg/dL AST 135 H (14-36) U/L ALT 186 H (7-56) U/L Alkaline Phosphatase 57 (38-126) U/L Total Protein 6.4 (5.8-8.3) g/dL Albumin 3.7 (3.0-4.8) g/dL Globulin 2.7 gm/dL Albumin/Globulin Ratio 1.4 (1.1-1.8) Arterial Blood Potassium (3.6-5.2) mmol/L Hepatitis A IgM Ab (NEGATIVE) Hep Bs Antigen (NEGATIVE) Hep B Core IgM Ab (NEGATIVE) Hepatitis C Antibody (NEGATIVE) 08/17/18 08/17/18 08/17/18 Range/Units 06:00 05:00 03:40 WBC 11.5 H (4.5-11.0) 10^3/uL RBC 4.63 (3.5-6.1) 10^6/uL Hgb 13.3 (12.0-16.0) g/dL Hct 40.9 (36.0-48.0) % MCV 88.3 (80.0-105.0) fl MCH 28.7 (25.0-35.0) pg MCHC 32.5 (31.0-37.0) g/dl RDW 14.5 (11.5-14.5) % Plt Count 241 (120.0-450.0) 10^3/uL MPV 9.3 (7.0-11.0) fl PT (9.4-12.5) SECONDS INR pCO2 42 (35-45) mm/Hg pO2 128.0 H (80-100) mm/Hg HCO3 31.3 H (21-28) mmol/L ABG pH 7.48 H (7.35-7.45) ABG Total CO2 32.6 H (22-28) mmol.L ABG O2 Saturation 99.0 H (95-98) % ABG Base Excess 7.0 H (-2.0-3.0) mmol/L ABG Potassium 3.8 (3.6-5.2) mmol/L Sodium 139.0 (132-148) mmol/L Chloride 107.0 (98-107) mmol/L Glucose 175 H (65-105) mg/dl Lactate 1.3 (0.7-2.1) mmol/L FiO2 35.0 % Potassium (3.6-5.0) mmol/L Carbon Dioxide (21-33) mmol/L Anion Gap (10-20) BUN (7-21) mg/dL Creatinine (0.7-1.2) mg/dl Est GFR ( Amer) Est GFR (Non-Af Amer) POC Glucose (mg/dL) 176 H (65-110) mg/dL Random Glucose (70-110) mg/dL Calcium (8.4-10.5) mg/dL Magnesium (1.7-2.2) mg/dL Total Bilirubin (0.2-1.3) mg/dL AST (14-36) U/L ALT (7-56) U/L Alkaline Phosphatase (38-126) U/L Total Protein (5.8-8.3) g/dL Albumin (3.0-4.8) g/dL Globulin gm/dL Albumin/Globulin Ratio (1.1-1.8) Arterial Blood Potassium 3.8 (3.6-5.2) mmol/L Hepatitis A IgM Ab (NEGATIVE) Hep Bs Antigen (NEGATIVE) Hep B Core IgM Ab (NEGATIVE) Hepatitis C Antibody (NEGATIVE) 08/16/18 08/16/18 Range/Units 17:52 16:00 WBC (4.5-11.0) 10^3/uL RBC (3.5-6.1) 10^6/uL Hgb (12.0-16.0) g/dL Hct (36.0-48.0) % MCV (80.0-105.0) fl MCH (25.0-35.0) pg MCHC (31.0-37.0) g/dl RDW (11.5-14.5) % Plt Count (120.0-450.0) 10^3/uL MPV (7.0-11.0) fl PT (9.4-12.5) SECONDS INR pCO2 (35-45) mm/Hg pO2 (80-100) mm/Hg HCO3 (21-28) mmol/L ABG pH (7.35-7.45) ABG Total CO2 (22-28) mmol.L ABG O2 Saturation (95-98) % ABG Base Excess (-2.0-3.0) mmol/L ABG Potassium (3.6-5.2) mmol/L Sodium (132-148) mmol/L Chloride (98-107) mmol/L Glucose (65-105) mg/dl Lactate (0.7-2.1) mmol/L FiO2 % Potassium (3.6-5.0) mmol/L Carbon Dioxide (21-33) mmol/L Anion Gap (10-20) BUN (7-21) mg/dL Creatinine (0.7-1.2) mg/dl Est GFR ( Amer) Est GFR (Non-Af Amer) POC Glucose (mg/dL) 164 H (65-110) mg/dL Random Glucose (70-110) mg/dL Calcium (8.4-10.5) mg/dL Magnesium (1.7-2.2) mg/dL Total Bilirubin (0.2-1.3) mg/dL AST (14-36) U/L ALT (7-56) U/L Alkaline Phosphatase (38-126) U/L Total Protein (5.8-8.3) g/dL Albumin (3.0-4.8) g/dL Globulin gm/dL Albumin/Globulin Ratio (1.1-1.8) Arterial Blood Potassium (3.6-5.2) mmol/L Hepatitis A IgM Ab Negative (NEGATIVE) Hep Bs Antigen Negative (NEGATIVE) Hep B Core IgM Ab Negative (NEGATIVE) Hepatitis C Antibody Negative (NEGATIVE) Laboratory Results - last 24 hr 08/16/18 08/16/18 08/17/18 16:00 17:52 03:40 WBC RBC Hgb Hct MCV MCH MCHC RDW Plt Count MPV PT INR pCO2 pO2 HCO3 ABG pH ABG Total CO2 ABG O2 Saturation ABG Base Excess ABG Potassium Sodium Chloride Glucose Lactate FiO2 Potassium Carbon Dioxide Anion Gap BUN Creatinine Est GFR ( Amer) Est GFR (Non-Af Amer) POC Glucose (mg/dL) 164 H 176 H Random Glucose Calcium Magnesium Total Bilirubin AST ALT Alkaline Phosphatase Total Protein Albumin Globulin Albumin/Globulin Ratio Arterial Blood Potassium Hepatitis A IgM Ab Negative Hep Bs Antigen Negative Hep B Core IgM Ab Negative Hepatitis C Antibody Negative 08/17/18 08/17/18 08/17/18 05:00 06:00 06:00 WBC 11.5 H RBC 4.63 Hgb 13.3 Hct 40.9 MCV 88.3 MCH 28.7 MCHC 32.5 RDW 14.5 Plt Count 241 MPV 9.3 PT 16.0 H INR 1.42 pCO2 42 pO2 128.0 H HCO3 31.3 H ABG pH 7.48 H ABG Total CO2 32.6 H ABG O2 Saturation 99.0 H ABG Base Excess 7.0 H ABG Potassium 3.8 Sodium 139.0 Chloride 107.0 Glucose 175 H Lactate 1.3 FiO2 35.0 Potassium Carbon Dioxide Anion Gap BUN Creatinine Est GFR ( Amer) Est GFR (Non-Af Amer) POC Glucose (mg/dL) Random Glucose Calcium Magnesium Total Bilirubin AST ALT Alkaline Phosphatase Total Protein Albumin Globulin Albumin/Globulin Ratio Arterial Blood Potassium 3.8 Hepatitis A IgM Ab Hep Bs Antigen Hep B Core IgM Ab Hepatitis C Antibody 08/17/18 08/17/18 06:00 06:05 WBC RBC Hgb Hct MCV MCH MCHC RDW Plt Count MPV PT INR pCO2 pO2 HCO3 ABG pH ABG Total CO2 ABG O2 Saturation ABG Base Excess ABG Potassium Sodium 140 Chloride 103 Glucose Lactate FiO2 Potassium 4.3 Carbon Dioxide 29 Anion Gap 12 BUN 41 H Creatinine 0.6 L Est GFR ( Amer) > 60 Est GFR (Non-Af Amer) > 60 POC Glucose (mg/dL) 202 H Random Glucose 178 H Calcium 9.2 Magnesium 2.1 Total Bilirubin 0.4 AST 135 H ALT 186 H Alkaline Phosphatase 57 Total Protein 6.4 Albumin 3.7 Globulin 2.7 Albumin/Globulin Ratio 1.4 Arterial Blood Potassium Hepatitis A IgM Ab Hep Bs Antigen Hep B Core IgM Ab Hepatitis C Antibody Radiology Impressions: Radiology Impressions Abdomen Ultrasound 08/17/18 10:08 IMPRESSION: Prominent common bile duct without intrahepatic ductal dilatation. Otherwise, unremarkable abdominal ultrasound. EKG/Cardiology Studies: Cardiology / EKG Studies 08/17/18 09:34 EKG [ELECTROCARDIOGRAM] Urgent Comment: Reason For Exam: f/u qtc Critical Care Progress Note - Nutrition Nutrition: Nutrition Category Date Time Status Heart Healthy Diet [DIET] Diets 08/17/18 Breakfast Active Assessment/Plan - Assessment and Plan (Free Text) Plan: I saw and examined the patient on rounds with the resident, agree with note with following additions/exceptions: Patient is 72yo female with PMhx severe anxiety, COPD, paroxysmal atrial fibri llation, non-ischemic cardiomyopathy, CAD, poorly controlled, admitted with SOB, resp failure. This morning patient placed on pressure support, did well RSBI 60s, awake, alert subsequently. Pt was doing well post extubation for the first 30-60 minutes, then developed wheezing, given Xopenex, Solumedrol, Pulmicort, placed on BIPAP. Now improved Patient has component of anxiety as well, psychiatry following, on multiple psych meds Will follow closely Resp failure, extubated COPD exacerbation CAD Cardiomyopathy Severe Anxiety Recommend: - cont with BIPAP as tolerated, duonebs PRN, Pulmicort, SOlumedrol 40mg IV TID, - DC Abx - BP control - Rate control, Lopressor, Dixogin as per home meds - Lovenox Coumadin bridge - follow up cardiology - GI ppx - DVT ppx - Monitor in MICU Critical care time 35 minutes '
[2018-08-17] MEDS: Enoxaparin 60 mg Syringe SC SCH ×2 (09:27→20:59)
[2018-08-17] MEDS: Mupirocin 2% Ointment 15 GM TUBE NS SCH ×2 (10:00→18:32)
[2018-08-17] MEDS ORDERED: Azithromycin 500MG/NS 250ml 500 MG/250 ML BAG IVPB SCH (10:00)
--- NOTE | 2018-08-17 10:23 | CP.PCM.PN ---
<Riley Dumont - Last Filed: 08/17/18 10:16> Subjective - Date & Time of Evaluation Date of Evaluation: 08/17/18 Time of Evaluation: 07:00 - Subjective Subjective: Patient seen and examined at bedside. Patient with no overnight events. Patient extubated this morning. Patient states she is still having trouble breathing at times. Denies chest pain, nausea, vomiting, diarrhea, fever, chills. Objective - Vital Signs/Intake and Output Vital Signs (last 24 hours): Temp Pulse Resp BP Pulse Ox 98.7 F 159 H 32 H 144/100 H 94 L 08/17/18 08:00 08/17/18 09:45 08/17/18 06:57 08/17/18 09:45 08/17/18 07:01 Intake and Output: 08/17/18 08/17/18 06:59 18:59 Intake Total 1144 100 Output Total 600 Balance 544 100 - Medications Medications: Current Medications Albuterol/Ipratropium (Duoneb 3 Mg/0.5 Mg (3 Ml) Ud) 3 ml IH [id number] [facility] Last Admin: 08/17/18 07:02 Dose: 3 ml Alprazolam (Xanax) 1 mg PO TID [facility]; Protocol Aspirin (Aspirin Chewable) 81 mg PO DAILY [facility] Last Admin: 08/17/18 09:19 Dose: 81 mg Atorvastatin Calcium (Lipitor) 10 mg PO HS [facility] Last Admin: 08/16/18 21:31 Dose: 10 mg Budesonide (Pulmicort Respules) 0.5 mg IH [id number] [facility] Last Admin: 08/17/18 09:06 Dose: 0.5 mg Dextrose (Dextrose 50% Inj) 0 ml IV STAT PRN; Protocol PRN Reason: Hypoglycemia Protocol Digoxin (Lanoxin) 0.25 mg PO 1400 [facility] Last Admin: 08/16/18 13:39 Dose: 0.25 mg Diltiazem HCl (Cardizem) 30 mg PO Q6H [facility] Last Admin: 08/17/18 04:37 Dose: 30 mg Enoxaparin Sodium (Lovenox) 60 mg 1 mg/kg (60 mg) SC Q12H [facility]; Protocol Last Admin: 08/17/18 09:27 Dose: 60 mg Famotidine (Pepcid) 20 mg PO DAILY [facility] Last Admin: 08/17/18 09:18 Dose: 20 mg Furosemide (Lasix) 40 mg PO DAILY [facility] Furosemide (Lasix) 40 mg IVP DAILY [facility] Last Admin: 08/17/18 09:26 Dose: 40 mg Gabapentin (Neurontin) 400 mg PO QID [facility]; Protocol Last Admin: 08/17/18 09:20 Dose: 400 mg diltiaZEM IVPB 100mg in NS (Cardizem 100mg In Ns) 100 mls @ 5 mls/hr IV .Q20H PRN; Protocol PRN Reason: TITRATE PER MD ORDER Last Titration: 08/15/18 11:32 Dose: 0 mg/hr, 0 mls/hr Dextrose (Dextrose 5% In Water 1000 Ml) 1,000 mls @ 0 mls/hr IV .Q0M PRN; Protocol PRN Reason: Hypoglycemia Protocol Dexmedetomidine HCl (Precedex 400mcg/100ml) 400 mcg in 100 mls @ 3.084 mls/hr IV .Q24H PRN; Protocol PRN Reason: Agitation Last Admin: 08/17/18 07:30 Dose: 1.5 mcg/kg/hr, 23.133 mls/hr Insulin Human Regular (Humulin R Low) 0 units SC ACHS [facility]; Protocol Levalbuterol HCl (Xopenex) 1.25 mg IH [id number] PRN PRN Reason: Shortness of Breath Last Admin: 08/17/18 08:53 Dose: 1.25 mg Levalbuterol HCl (Xopenex) 0.63 mg IH [id number] PRN PRN Reason: Shortness of Breath Last Admin: 08/16/18 19:35 Dose: 0.63 mg Methylprednisolone (Solu-Medrol) 40 mg IVP Q8H [facility] Last Admin: 08/17/18 09:26 Dose: 40 mg Metoprolol Tartrate (Lopressor) 25 mg PO BID [facility] Last Admin: 08/17/18 09:19 Dose: 25 mg Mupirocin (Bactroban Ointment) 0 gm NS BID [facility] Stop: 08/21/18 10:01 Last Admin: 08/16/18 17:46 Dose: 1 oin Nicotine (Nicoderm Cq) 1 patch TD DAILY [facility] Last Admin: 08/17/18 09:34 Dose: 1 patch Quetiapine Fumarate (Seroquel) 25 mg PO BID [facility]; Protocol Last Admin: 08/17/18 09:42 Dose: 25 mg Sertraline HCl (Zoloft) 100 mg PO BID [facility] Last Admin: 08/17/18 09:42 Dose: 100 mg Verapamil HCl (Verapamil Inj) 2.5 mg IVP Q6H PRN PRN Reason: Heart rate Last Admin: 08/17/18 09:45 Dose: 2.5 mg Warfarin Sodium (Coumadin) 5 mg PO 1800 [facility]; Protocol - Labs Labs: 08/17/18 06:00 08/17/18 06:00 PT 16.0 SECONDS (9.4-12.5) H 08/17/18 06:00 INR 1.42 08/17/18 06:00 APTT 43.0 Seconds (26.9-38.3) H 08/14/18 06:55 - Constitutional Appears: Non-toxic, No Acute Distress - Head Exam Head Exam: ATRAUMATIC, NORMAL INSPECTION, NORMOCEPHALIC - Eye Exam Eye Exam: EOMI, Normal appearance - ENT Exam ENT Exam: Mucous Membranes Dry - Respiratory Exam Respiratory Exam: Decreased Breath Sounds, Wheezes (Mild, improving). absent: Accessory Muscle Use, Rales, Rhonchi - Cardiovascular Exam Cardiovascular Exam: RRR, +S1, +S2, Murmur (Systolic ) - GI/Abdominal Exam GI & Abdominal Exam: Soft, Normal Bowel Sounds. absent: Tenderness - Extremities Exam Extremities Exam: Normal Inspection. absent: Calf Tenderness, Pedal Edema - Neurological Exam Neurological Exam: Alert, Awake, Oriented x3 - Psychiatric Exam Psychiatric exam: Normal Affect, Normal Mood - Skin Skin Exam: Intact, Normal Color, Warm Assessment and Plan - Assessment and Plan (Free Text) Plan: 72 year old female with past medical history of atrial fibrillation on coumadin, cardiomyopathy, CAD, COPD and chronic tobacco use presents to the hospital with COPD exacerbation in the setting of A-fib with RVR complicated by hypercapnic respiratory failure extubated this morning. Hypercapneic Respiratory Failure, improved Extubated, no sedation Duonebs q6h scheduled Xopenex PRN COPD exacerbation solumedrol increased to 40mg Q8H Start Budesonide Duonebs q6h scheduled Xopenex PRN Continue Doxycycline, Rocephin Transaminitis Hepatitis panel negative Abdomen US ordered Hold Atorvastatin Chronic Atrial Fibrillation Continue oral cardizem Verapamil PRN Continue Lovenox 60mg BID for subtherapuetic INR Increased Coumadin 5 mg today Recheck INR in AM Diastolic CHF Continue with lasix Continue Atorvastatin Continue ASA Continue Digoxin HTN Continue lisinopril and Metoprolol Tobacco use Nicotine patch Prophylaxis Pepcid Lovenox Julia, PGY-3 <Fabio Walters - Last Filed: 08/17/18 10:45> Objective - Vital Signs/Intake and Output Vital Signs (last 24 hours): Temp Pulse Resp BP Pulse Ox 98.7 F 159 H 32 H 144/100 H 94 L 08/17/18 08:00 08/17/18 09:45 08/17/18 06:57 08/17/18 09:45 08/17/18 07:01 Intake and Output: 08/17/18 08/17/18 06:59 18:59 Intake Total 1144 100 Output Total 600 Balance 544 100 - Medications Medications: Current Medications Albuterol/Ipratropium (Duoneb 3 Mg/0.5 Mg (3 Ml) Ud) 3 ml IH [id number] [facility] Last Admin: 08/17/18 07:02 Dose: 3 ml Alprazolam (Xanax) 1 mg PO TID [facility]; Protocol Aspirin (Aspirin Chewable) 81 mg PO DAILY [facility] Last Admin: 08/17/18 09:19 Dose: 81 mg Atorvastatin Calcium (Lipitor) 10 mg PO HS [facility] Last Admin: 08/16/18 21:31 Dose: 10 mg Budesonide (Pulmicort Respules) 0.5 mg IH [id number] [facility] Last Admin: 08/17/18 09:06 Dose: 0.5 mg Dextrose (Dextrose 50% Inj) 0 ml IV STAT PRN; Protocol PRN Reason: Hypoglycemia Protocol Digoxin (Lanoxin) 0.25 mg PO 1400 [facility] Last Admin: 08/16/18 13:39 Dose: 0.25 mg Digoxin (Lanoxin) 0.25 mg IVP ONCE ONE Stop: 08/17/18 14:31 Enoxaparin Sodium (Lovenox) 60 mg 1 mg/kg (60 mg) SC Q12H [facility]; Protocol Last Admin: 08/17/18 09:27 Dose: 60 mg Famotidine (Pepcid) 20 mg PO DAILY [facility] Last Admin: 08/17/18 09:18 Dose: 20 mg Furosemide (Lasix) 40 mg PO DAILY [facility] Furosemide (Lasix) 40 mg IVP DAILY [facility] Last Admin: 08/17/18 09:26 Dose: 40 mg Gabapentin (Neurontin) 400 mg PO QID [facility]; Protocol Last Admin: 08/17/18 09:20 Dose: 400 mg diltiaZEM IVPB 100mg in NS (Cardizem 100mg In Ns) 100 mls @ 5 mls/hr IV .Q20H PRN; Protocol PRN Reason: TITRATE PER MD ORDER Last Titration: 08/15/18 11:32 Dose: 0 mg/hr, 0 mls/hr Dextrose (Dextrose 5% In Water 1000 Ml) 1,000 mls @ 0 mls/hr IV .Q0M PRN; Protocol PRN Reason: Hypoglycemia Protocol Dexmedetomidine HCl (Precedex 400mcg/100ml) 400 mcg in 100 mls @ 3.084 mls/hr IV .Q24H PRN; Protocol PRN Reason: Agitation Last Admin: 08/17/18 07:30 Dose: 1.5 mcg/kg/hr, 23.133 mls/hr Insulin Human Regular (Humulin R Low) 0 units SC ACHS [facility]; Protocol Levalbuterol HCl (Xopenex) 1.25 mg IH [id number] PRN PRN Reason: Shortness of Breath Last Admin: 08/17/18 08:53 Dose: 1.25 mg Levalbuterol HCl (Xopenex) 0.63 mg IH [id number] PRN PRN Reason: Shortness of Breath Last Admin: 08/16/18 19:35 Dose: 0.63 mg Methylprednisolone (Solu-Medrol) 40 mg IVP Q8H [facility] Last Admin: 08/17/18 09:26 Dose: 40 mg Metoprolol Tartrate (Lopressor) 25 mg PO BID [facility] Last Admin: 08/17/18 09:19 Dose: 25 mg Mupirocin (Bactroban Ointment) 0 gm NS BID [facility] Stop: 08/21/18 10:01 Last Admin: 08/16/18 17:46 Dose: 1 oin Nicotine (Nicoderm Cq) 1 patch TD DAILY [facility] Last Admin: 08/17/18 09:34 Dose: 1 patch Quetiapine Fumarate (Seroquel) 25 mg PO BID [facility]; Protocol Last Admin: 08/17/18 09:42 Dose: 25 mg Sertraline HCl (Zoloft) 100 mg PO BID [facility] Last Admin: 08/17/18 09:42 Dose: 100 mg Verapamil HCl (Verapamil Inj) 2.5 mg IVP Q6H PRN PRN Reason: Heart rate Last Admin: 08/17/18 09:45 Dose: 2.5 mg Verapamil HCl (Calan Tab) 40 mg PO TID [facility] Warfarin Sodium (Coumadin) 5 mg PO 1800 [facility]; Protocol - Labs Labs: 08/17/18 06:00 08/17/18 06:00 PT 16.0 SECONDS (9.4-12.5) H 08/17/18 06:00 INR 1.42 08/17/18 06:00 APTT 43.0 Seconds (26.9-38.3) H 08/14/18 06:55 Attending/Attestation - Attestation I have personally seen and examined this patient.: Yes I have fully participated in the care of the patient.: Yes I have reviewed all pertinent clinical information, including history, physical exam and plan: Yes Notes (Text): 08/17/18 10:40 72 year old female with past medical history of atrial fibrillation on coumadin, cardiomyopathy, CAD, COPD and active tobacco use who presented with complaint of shortness of breath. She was admitted for COPD exacerbation and AFib with RVR and started on iv steroids and cardizem drip in addition to xopenex and antibiotics. Hospital course was complicated with episode of respiratory distress found to have acute hypercapneic respiratory failure requiring intubation. She was transferred to ICU. She is now extubated this morning. Will continue to monitor closely. Cardiology is following as well for afib and mildly elevated troponins which have been stable. Continue with coumadin and lovenox for now as INR remains subtherapeutic. Coumadin dose increased today. Continue with lasix. Continue to monitor LFTs closely. Hepatitis panel was negative. Will obtain abdominal ultrasound and hold statin for now. Fabio Walters MD Hospitalist.
[2018-08-17] MEDS ORDERED: Digoxin 500 mcg/2ml (0.5 mg/2ml) Inj IVP STA (10:24)
[2018-08-17] MEDS: Digoxin 250 mcg (0.25 mg) Tab PO SCH ×2 (11:12→14:00)
--- NOTE | 2018-08-17 11:17 | US ---
Date of service: 08/17/2018 HISTORY: Transaminits COMPARISON: None. TECHNIQUE: Sonographic evaluation of the abdomen. FINDINGS: LIVER: Measures 13 cm. Normal echogenicity of the liver parenchyma. No mass. No intrahepatic bile duct dilatation. Main portal vein and hepatic veins demonstrate normal directional flow. GALLBLADDER: Unremarkable. No gallstones. COMMON BILE DUCT: Measures 10 mm. No stones. No dilatation. PANCREAS: Unremarkable as visualized. No mass. No ductal dilatation. RIGHT KIDNEY: Measures 9.2 x 4.8 x 5.3cm. Normal echogenicity. No calculus, mass, or hydronephrosis. LEFT KIDNEY: Measures 9.7 x 4.8 x 5.0cm. Normal echogenicity. No calculus, mass, or hydronephrosis. SPLEEN: Normal in size and contour. No mass. AORTA: No aneurysmal dilatation. IVC: Unremarkable. OTHER FINDINGS: None. IMPRESSION: Prominent common bile duct without intrahepatic ductal dilatation. Otherwise, unremarkable abdominal ultrasound.
[2018-08-17] MEDS: Insulin Reg-LOW-Coverage SC SCH ×2 (12:00→18:33)
--- NOTE | 2018-08-17 14:20 | PN ---
DATE: 08/17/2018 REASON FOR CONSULTATION AND FOLLOWUP: Atrial fibrillation with rapid response, status post [employer], status post intubated and successfully extubated. The patient is currently awake and alert and status post extubated. PHYSICAL EXAMINATION: VITAL SIGNS: Temperature afebrile. Heart rate 85 and blood pressure 116/68. HEENT: PERRLA. Extraocular muscles intact. NECK: Supple. No carotid bruits. No thyromegaly. CHEST: Clear to auscultation. HEART: S1 and S2, regular. ABDOMEN: Soft. EXTREMITIES: Clubbing and cyanosis, negative. LABORATORY DATA: Blood work up, WBC 11.5, hemoglobin 13, hematocrit 40.9 and platelet count 241. Chemistry shows sodium 140, potassium 4.8, chloride 103, carbon dioxide 29, anion gap of 12, BUN 41 and creatinine 0.6. IMPRESSION: A 72-year-old female with past medical history significant for nonobstructive coronary artery disease, cardiac catheterization twice admitted with acute exacerbation of chronic obstructive pulmonary disease and atrial fibrillation with rapid ventricular rate, had a rapid response, renal replacement therapy requiring intubation, moved to ICU, now the patient successfully extubated. Recent echo and MUGA scan shows significant improvement in ventricular function. The patient's borderline troponin is positive most likely secondary to stress, no complaint of chest pain, now the patient is extubated. RECOMMENDATION: Resume back the patient's med at home. We will give a dose of digoxin to control the heart rate. Continue anticoagulation, today's INR is 1.42. We will continue Coumadin and give Lovenox as a bridge till the INR get 2. Continue gentle diuretics. Continue atorvastatin and continue Lovenox. We will give one dose of digoxin and change to verapamil p.o. Further recommendation depending upon the hospital course. We will follow with you. Put IV verapamil p.r.n. every 6 for heart rate more than 130. We will avoid beta-2 agonist except Xopenex, avoid Proventil, the patient is going into atrial fibrillation with rapid ventricular rate. Mak Mendez MD
[2018-08-17] MEDS ORDERED: Digoxin 500 mcg/2ml (0.5 mg/2ml) Inj IVP ONE (14:30)
[2018-08-17] MEDS ORDERED: Albuterol-Ipratrop 3 mg / 0.5 (3 ml) UD IH PRN (15:49)
[2018-08-17] MEDS ORDERED: MethylPREDNISolone 40 mg Vial ONE (18:39)
[2018-08-18] MEDS: Albuterol-Ipratrop 3 mg / 0.5 (3 ml) UD IH SCH ×7 (00:25→23:50)
[2018-08-18] MEDS: Insulin Reg-LOW-Coverage SC SCH ×3 (00:27→12:00)
[2018-08-18] MEDS: Dexmedetomidine 400mcg/100mL 400 MCG/100 ML BOTTLE IV PRN ×3 (02:50→19:00)
[2018-08-18] MEDS: MethylPREDNISolone 40 mg Vial IVP SCH ×3 (02:54→22:25)
[2018-08-18 06:28] LABS: HEMOGLOBIN 13.6 g/dL (12.0-16.0); MEAN CELL VOLUME 88.8 fl (80.0-105.0); MEAN CORPUSCULAR HEMOGLOBIN 28.2 pg (25.0-35.0); MEAN CORPUSCULAR HGB CONC 31.7 g/dl (31.0-37.0); MEAN PLATELET VOLUME 9.1 fl (7.0-11.0); RBC 4.83 10^6/uL (3.5-6.1); RED CELL DISTRIBUTION WIDTH 14.7 % (11.5-14.5)
[2018-08-18 06:54] LABS: INR 1.64; PROTHROMBIN TIME 18.5 SECONDS (9.4-12.5)
[2018-08-18] MEDS: Budesonide 0.5 mg/2 ml Inhal Susp UD IH SCH ×2 (07:04→20:20)
[2018-08-18 07:44] LABS: ALB/GLOB RATIO 1.4 (1.1-1.8); ALBUMIN 3.7 g/dL (3.0-4.8); ALT/SGPT 153 U/L (7-56); AST/SGOT 82 U/L (14-36); BLOOD UREA NITROGEN 39 mg/dL (7-21); CALCIUM 9.4 mg/dL (8.4-10.5); GFR NON-AFRICAN AMERICAN > 60
--- NOTE | 2018-08-18 07:44 | CP.CCUPN ---
<WendySánchez lang Regis - Last Filed: 08/18/18 09:52> CCU Subjective - Physician Review Subjective (Free Text): PGY-2 ICU progress note for Ronnell Patient overnight was anxious and agitated, she ripped off her bipap, precedex drip was started overnight. This morning again very restless. Denies cp, abd pain, or pain in general. 08/18/18 07:42 CCU Objective - Vital Signs / Intake & Output Vital Signs (Last 4 hours): Vital Signs Temp Pulse Resp BP Pulse Ox 08/18/18 07:22 180 H 08/18/18 05:00 101 H 33 H 162/103 H 96 08/18/18 04:30 118 H 42 H 95 08/18/18 04:00 98.4 F 87 23 163/109 H 97 Intake and Output (Last 8hrs): Intake & Output 08/17/18 08/18/18 08/18/18 22:59 06:59 14:59 Intake Total 300 56.7 Output Total 1400 600 Balance -1100 -543.3 Weight 119 lb 6 oz Intake: IV 150 56.7 Left Forearm 55 precedex 70 Oral 150 Output: Urine 1400 600 Urethral (Ferguson) 1400 600 Stool 0 Other: # Bowel Movements 0 - Physical Exam Head: Positive for: Atraumatic, Normocephalic Pupils: Positive for: PERRL Extroacular Muscles: Positive for: EOMI Conjunctiva: Positive for: Normal Mouth: Positive for: Moist Mucous Membranes Neck: Positive for: Normal Range of Motion Respiratory/Chest: Positive for: Good Air Exchange, Wheezes, Rales, Other (currently on bipap). Negative for: Respiratory Distress, Accessory Muscle Use Cardiovascular: Positive for: Regular Rate and Rhythm, Normal S1, S2. Negative for: Murmurs Abdomen: Negative for: Tenderness, Distention, Peritoneal Signs Back: Positive for: Normal Inspection Upper Extremity: Positive for: Normal Inspection. Negative for: Cyanosis, Edema Lower Extremity: Positive for: Normal Inspection. Negative for: Edema Neurological: Positive for: GCS=15, CN II-XII Intact, Speech Normal Skin: Positive for: Warm, Dry, Normal Color. Negative for: Rashes Psychiatric: Positive for: Alert, Oriented x 3 - Medications Active Medications: Active Medications Generic Name Dose Route Start Last Admin Trade Name Freq PRN Reason Stop Dose Admin Albuterol/Ipratropium 3 ml 08/17/18 15:49 Duoneb 3 Mg/0.5 Mg (3 Ml) Ud IH Q2H PRN Shortness of Breath Albuterol/Ipratropium 3 ml 08/17/18 19:00 08/18/18 07:04 Duoneb 3 Mg/0.5 Mg (3 Ml) Ud IH 3 ml [id number] WIL Administration Alprazolam 1 mg 08/17/18 10:00 08/17/18 18:33 Xanax PO Not Given TID WIL Protocol Aspirin 81 mg 08/15/18 11:00 08/17/18 09:19 Aspirin Chewable PO 81 mg DAILY WIL Administration Atorvastatin Calcium 10 mg 08/14/18 22:00 08/16/18 21:31 Lipitor PO 10 mg HS WIL Administration Budesonide 0.5 mg 08/17/18 09:00 08/18/18 07:04 Pulmicort Respules IH 0.5 mg [id number] WIL Administration Dextrose 0 ml 08/15/18 09:54 Dextrose 50% Inj IV STAT PRN Hypoglycemia Protocol Protocol Digoxin 0.25 mg 08/16/18 14:00 08/17/18 14:00 Lanoxin PO Not Given 1400 WIL Enoxaparin Sodium 60 mg 08/14/18 09:45 08/17/18 20:59 Lovenox 1 mg/kg (60 mg) 60 mg SC Administration Q12H WIL Protocol Famotidine 20 mg 08/15/18 10:00 08/17/18 09:18 Pepcid PO 20 mg DAILY WIL Administration Furosemide 40 mg 08/15/18 10:00 Lasix PO DAILY WIL Furosemide 40 mg 08/15/18 10:00 08/17/18 09:26 Lasix IVP 40 mg DAILY WIL Administration Gabapentin 400 mg 08/14/18 14:00 08/17/18 18:24 Neurontin PO 400 mg QID WIL Administration Protocol diltiaZEM IVPB 100mg in NS 100 mls @ 5 mls/hr 08/15/18 09:04 08/15/18 11:32 Cardizem 100mg In Ns IV 0 mg/hr .Q20H PRN 0 mls/hr TITRATE PER MD ORDER Titration Protocol 5 MG/HR Dextrose 1,000 mls @ 0 mls/hr 08/15/18 09:54 Dextrose 5% In Water 1000 Ml IV .Q0M PRN Hypoglycemia Protocol Protocol Per Protocol Dexmedetomidine HCl 400 mcg in 100 mls @ 3.084 mls/hr 08/15/18 17:48 08/18/18 03:45 Precedex 400mcg/100ml IV 0.7 mcg/kg/hr .Q24H PRN 10.796 mls/hr Agitation Titration Protocol 0.2 MCG/KG/HR Insulin Human Regular 0 units 08/17/18 11:30 08/18/18 00:27 Humulin R Low SC Not Given ACHS WIL Protocol Levalbuterol HCl 1.25 mg 08/14/18 11:28 08/17/18 15:19 Xopenex IH 1.25 mg [id number] PRN Administration Shortness of Breath Methylprednisolone 40 mg 08/17/18 09:00 08/18/18 02:54 Solu-Medrol IVP 40 mg Q8H WIL Administration Metoprolol Tartrate 25 mg 08/15/18 18:00 08/17/18 18:25 Lopressor PO 25 mg BID WIL Administration Mupirocin 0 gm 08/16/18 18:00 08/17/18 18:32 Bactroban Ointment NS 08/21/18 10:01 1 oin BID WIL Administration Nicotine 1 patch 08/17/18 10:00 08/17/18 09:34 Nicoderm Cq TD 1 patch DAILY WIL Administration Quetiapine Fumarate 25 mg 08/17/18 10:00 08/17/18 18:26 Seroquel PO 25 mg BID WIL Administration Protocol Sertraline HCl 100 mg 08/17/18 10:00 08/17/18 18:27 Zoloft PO 100 mg BID WIL Administration Verapamil HCl 2.5 mg 08/14/18 15:39 08/17/18 09:45 Verapamil Inj IVP 2.5 mg Q6H PRN Administration Heart rate Verapamil HCl 40 mg 08/17/18 14:00 08/17/18 18:25 Calan Tab PO 40 mg TID WIL Administration Warfarin Sodium 5 mg 08/17/18 10:07 08/17/18 18:29 Coumadin PO 5 mg 1800 WIL Administration Protocol - Patient Studies Lab Studies: Microbiology Studies 08/14/18 07:00 Blood Culture - Preliminary Blood-Venous NO GROWTH AFTER 4 DAYS 08/14/18 06:40 Blood Culture - Preliminary Blood-Venous NO GROWTH AFTER 4 DAYS Lab Studies 08/18/18 08/18/18 08/18/18 Range/Units 05:45 05:45 05:45 WBC (4.5-11.0) 10^3/uL RBC (3.5-6.1) 10^6/uL Hgb (12.0-16.0) g/dL Hct (36.0-48.0) % MCV (80.0-105.0) fl MCH (25.0-35.0) pg MCHC (31.0-37.0) g/dl RDW (11.5-14.5) % Plt Count (120.0-450.0) 10^3/uL MPV (7.0-11.0) fl PT 18.5 H (9.4-12.5) SECONDS INR 1.64 Potassium (3.6-5.0) mmol/L Anion Gap (10-20) POC Glucose (mg/dL) 177 H (65-110) mg/dL Digoxin 1.1 (0.8-2.0) ng/mL 08/18/18 08/18/18 08/17/18 Range/Units 05:45 00:08 17:40 WBC 9.0 D (4.5-11.0) 10^3/uL RBC 4.83 (3.5-6.1) 10^6/uL Hgb 13.6 (12.0-16.0) g/dL Hct 42.9 (36.0-48.0) % MCV 88.8 (80.0-105.0) fl MCH 28.2 (25.0-35.0) pg MCHC 31.7 (31.0-37.0) g/dl RDW 14.7 H (11.5-14.5) % Plt Count 267 (120.0-450.0) 10^3/uL MPV 9.1 (7.0-11.0) fl PT (9.4-12.5) SECONDS INR Potassium (3.6-5.0) mmol/L Anion Gap (10-20) POC Glucose (mg/dL) 124 H 142 H (65-110) mg/dL Digoxin (0.8-2.0) ng/mL 08/17/18 08/17/18 08/17/18 Range/Units 12:23 06:05 06:00 WBC (4.5-11.0) 10^3/uL RBC (3.5-6.1) 10^6/uL Hgb (12.0-16.0) g/dL Hct (36.0-48.0) % MCV (80.0-105.0) fl MCH (25.0-35.0) pg MCHC (31.0-37.0) g/dl RDW (11.5-14.5) % Plt Count (120.0-450.0) 10^3/uL MPV (7.0-11.0) fl PT (9.4-12.5) SECONDS INR Potassium 4.3 (3.6-5.0) mmol/L Anion Gap 12 (10-20) POC Glucose (mg/dL) 151 H 202 H (65-110) mg/dL Digoxin (0.8-2.0) ng/mL 08/17/18 Range/Units 03:40 WBC (4.5-11.0) 10^3/uL RBC (3.5-6.1) 10^6/uL Hgb (12.0-16.0) g/dL Hct (36.0-48.0) % MCV (80.0-105.0) fl MCH (25.0-35.0) pg MCHC (31.0-37.0) g/dl RDW (11.5-14.5) % Plt Count (120.0-450.0) 10^3/uL MPV (7.0-11.0) fl PT (9.4-12.5) SECONDS INR Potassium (3.6-5.0) mmol/L Anion Gap (10-20) POC Glucose (mg/dL) 176 H (65-110) mg/dL Digoxin (0.8-2.0) ng/mL Laboratory Results - last 24 hr 08/17/18 08/17/18 08/17/18 03:40 06:00 06:05 WBC RBC Hgb Hct MCV MCH MCHC RDW Plt Count MPV PT INR Potassium 4.3 Anion Gap 12 POC Glucose (mg/dL) 176 H 202 H Digoxin 08/17/18 08/17/18 08/18/18 12:23 17:40 00:08 WBC RBC Hgb Hct MCV MCH MCHC RDW Plt Count MPV PT INR Potassium Anion Gap POC Glucose (mg/dL) 151 H 142 H 124 H Digoxin 08/18/18 08/18/18 08/18/18 05:45 05:45 05:45 WBC 9.0 D RBC 4.83 Hgb 13.6 Hct 42.9 MCV 88.8 MCH 28.2 MCHC 31.7 RDW 14.7 H Plt Count 267 MPV 9.1 PT 18.5 H INR 1.64 Potassium Anion Gap POC Glucose (mg/dL) Digoxin 1.1 08/18/18 05:45 WBC RBC Hgb Hct MCV MCH MCHC RDW Plt Count MPV PT INR Potassium Anion Gap POC Glucose (mg/dL) 177 H Digoxin Radiology Impressions: Radiology Impressions Abdomen Ultrasound 08/17/18 10:08 IMPRESSION: Prominent common bile duct without intrahepatic ductal dilatation. Otherwise, unremarkable abdominal ultrasound. EKG/Cardiology Studies: Cardiology / EKG Studies 08/17/18 09:34 EKG [ELECTROCARDIOGRAM] Urgent Comment: Reason For Exam: f/u qtc Fingerstick Blood Sugar Results: 177 Review of Systems - Review of Systems All systems: reviewed and no additional remarkable complaints except (as stated in HPI) Critical Care Progress Note - Nutrition Nutrition: Nutrition Category Date Time Status Heart Healthy Diet [DIET] Diets 08/17/18 Breakfast Active Assessment/Plan - Assessment and Plan (Free Text) Plan: Mrs Arciniega is a 72 year old female with a PMHx of paroxysmal atrial fibrillation, non-ischemic cardiomyopathy, CAD, poorly controlled non home O2 COPD secondary to medication compliance and secondary to tobacco abuse who presented to the ED for shortness of breath for the past few days: Cardiovascular: #NSTEMI, #Paroxysmal Atrial Fibrillation, #Diastolic CHF, #CAD, Non-Ischemic Cardiomyopathy -cardiology consulted, Dr Mendez -troponin <0.01 -> 0.15 -> 0.12 -> 0.14 -probnp 1929 -echo 01/2018 showed EF 54%, limited study, mild TR, mild MR -cardizem drip prn to control heart rate -> currently off -> resumed home med cardizem 30mg po q6h wil -resumed home med metoprolol tartrate 25mg po bid wil -resumed home digoxin 0.25mg po qd, loaded with digoxin 1g on day of admission as digoxin level was < 0.4 likely non-compliance with med at home -aspirin 81mg po qd, lipitor 10mg po hs -verapamil 2.5mg ivp q6h prn for HR > 130 -started verapamil 40mg po tid -lasix 40mg ivp qd -anticoagulation with lovenox 60mg sc q12h -> bridge to warfarin, resumed home med warfarin titrate until goal INR 2-3 Pulmonary: #COPD Exacerbation -extubated this AM - now placed on bipap -duoneb scheduled q6h -pulmicort 0.5 ih bid -titrate up solumedrol 40mg ivp q8h as patient still with wheezing ID: #Leukocytosis, resolved - tx empirically for COPD exacerbation - doxycycline 100mg ivp q12h (started 08/14) and rocephin 1g ivp qd (started 08/15) * both discontinued 08/17 - could be causing elevated LFTs and already received 4 days of abx - blood cx 08/14 negative up to date Renal: #Hyperkalemia, resolved -received 1 dose of patiromer Neuro: - AAOx3, no deficits Psychiatry: #Anxiety, #Agitation - resumed home psychiatry meds quetiapine 25mg po bid, sertraline 100mg po bid and alprazolam 1mg po tid * latest ekg 08/17 with normal qtc - consulted psychiatry Dr Linton, who can hopefully help find a suitable anxiolytic that does not cause respiratory issues GI: - start heart healthy diet today PPx: pepcid 20mg po qd, on therapeutic AC Seen and discussed with Dr Reynaga <Nile Reynaga - Last Filed: 08/18/18 13:01> CCU Objective - Vital Signs / Intake & Output Vital Signs (Last 4 hours): Vital Signs Pulse BP 08/18/18 10:27 115 H 08/18/18 10:22 112 H 165/111 H 08/18/18 09:47 162/97 H 08/18/18 09:20 127 H 162/97 H Intake and Output (Last 8hrs): Intake & Output 08/17/18 08/18/18 08/18/18 22:59 06:59 14:59 Intake Total 300 56.7 99.3 Output Total 1400 600 Balance -1100 -543.3 99.3 Weight 119 lb 6 oz Intake: IV 150 56.7 99.3 Left Forearm 55 precedex 70 Oral 150 Output: Urine 1400 600 Urethral (Ferguson) 1400 600 Stool 0 Other: # Bowel Movements 0 - Medications Active Medications: Active Medications Generic Name Dose Route Start Last Admin Trade Name Freq PRN Reason Stop Dose Admin Albuterol/Ipratropium 3 ml 08/17/18 15:49 Duoneb 3 Mg/0.5 Mg (3 Ml) Ud IH Q2H PRN Shortness of Breath Albuterol/Ipratropium 3 ml 08/17/18 19:00 08/18/18 10:46 Duoneb 3 Mg/0.5 Mg (3 Ml) Ud IH 3 ml [id number] WIL Administration Alprazolam 1 mg 08/17/18 10:00 08/18/18 09:22 Xanax PO 1 mg TID WIL Administration Protocol Aspirin 81 mg 08/15/18 11:00 08/18/18 09:20 Aspirin Chewable PO 81 mg DAILY WIL Administration Atenolol 25 mg 08/18/18 10:00 08/18/18 10:22 Tenormin PO 25 mg BID WIL Administration Atorvastatin Calcium 10 mg 08/14/18 22:00 08/16/18 21:31 Lipitor PO 10 mg HS WIL Administration Budesonide 0.5 mg 08/17/18 09:00 08/18/18 07:04 Pulmicort Respules IH 0.5 mg [id number] WIL Administration Dextrose 0 ml 08/15/18 09:54 Dextrose 50% Inj IV STAT PRN Hypoglycemia Protocol Protocol Digoxin 0.25 mg 08/16/18 14:00 08/17/18 14:00 Lanoxin PO Not Given 1400 WIL Enoxaparin Sodium 60 mg 08/14/18 09:45 08/18/18 09:19 Lovenox 1 mg/kg (60 mg) 60 mg SC Administration Q12H [facility] Protocol Famotidine 20 mg 08/15/18 10:00 08/18/18 09:20 Pepcid PO 20 mg DAILY WIL Administration Furosemide 40 mg 08/15/18 10:00 Lasix PO DAILY WIL Furosemide 40 mg 08/15/18 10:00 08/18/18 09:47 Lasix IVP 40 mg DAILY WIL Administration Gabapentin 400 mg 08/14/18 14:00 08/18/18 09:21 Neurontin PO 400 mg QID WIL Administration Protocol diltiaZEM IVPB 100mg in NS 100 mls @ 5 mls/hr 08/15/18 09:04 08/15/18 11:32 Cardizem 100mg In Ns IV 0 mg/hr .Q20H PRN 0 mls/hr TITRATE PER MD ORDER Titration Protocol 5 MG/HR Dextrose 1,000 mls @ 0 mls/hr 08/15/18 09:54 Dextrose 5% In Water 1000 Ml IV .Q0M PRN Hypoglycemia Protocol Protocol Per Protocol Dexmedetomidine HCl 400 mcg in 100 mls @ 3.084 mls/hr 08/15/18 17:48 08/18/18 09:18 Precedex 400mcg/100ml IV 0.7 mcg/kg/hr .Q24H PRN 10.796 mls/hr Agitation Administration Protocol 0.2 MCG/KG/HR Insulin Human Regular 0 units 08/17/18 11:30 08/18/18 08:13 Humulin R Low SC Not Given ACHS WIL Protocol Levalbuterol HCl 1.25 mg 08/14/18 11:28 08/17/18 15:19 Xopenex IH 1.25 mg [id number] PRN Administration Shortness of Breath Methylprednisolone 40 mg 08/18/18 09:15 08/18/18 09:19 Solu-Medrol IVP 40 mg Q12H WIL Administration Mupirocin 0 gm 08/16/18 18:00 08/18/18 10:11 Bactroban Ointment NS 08/21/18 10:01 1 oin BID WIL Administration Nicotine 1 patch 08/17/18 10:00 08/18/18 09:19 Nicoderm Cq TD 1 patch DAILY WIL Administration Quetiapine Fumarate 25 mg 08/17/18 10:00 08/18/18 09:20 Seroquel PO 25 mg BID WIL Administration Protocol Sertraline HCl 100 mg 08/17/18 10:00 08/18/18 09:21 Zoloft PO 100 mg BID WIL Administration Verapamil HCl 2.5 mg 08/14/18 15:39 08/17/18 09:45 Verapamil Inj IVP 2.5 mg Q6H PRN Administration Heart rate Verapamil HCl 40 mg 08/17/18 14:00 08/18/18 09:20 Calan Tab PO 40 mg TID WIL Administration Warfarin Sodium 5 mg 08/17/18 10:07 08/17/18 18:29 Coumadin PO 5 mg 1800 WIL Administration Protocol - Patient Studies Lab Studies: Microbiology Studies 08/14/18 07:00 Blood Culture - Preliminary Blood-Venous NO GROWTH AFTER 4 DAYS 08/14/18 06:40 Blood Culture - Preliminary Blood-Venous NO GROWTH AFTER 4 DAYS Lab Studies 08/18/18 08/18/18 08/18/18 Range/Units 11:59 07:59 05:45 WBC (4.5-11.0) 10^3/uL RBC (3.5-6.1) 10^6/uL Hgb (12.0-16.0) g/dL Hct (36.0-48.0) % MCV (80.0-105.0) fl MCH (25.0-35.0) pg MCHC (31.0-37.0) g/dl RDW (11.5-14.5) % Plt Count (120.0-450.0) 10^3/uL MPV (7.0-11.0) fl PT (9.4-12.5) SECONDS INR Sodium (132-148) mmol/L Potassium (3.6-5.0) mmol/L Chloride (98-107) mmol/L Carbon Dioxide (21-33) mmol/L Anion Gap (10-20) BUN (7-21) mg/dL Creatinine (0.7-1.2) mg/dl Est GFR ( Amer) Est GFR (Non-Af Amer) POC Glucose (mg/dL) 171 H 148 H 177 H (65-110) mg/dL Random Glucose (70-110) mg/dL Calcium (8.4-10.5) mg/dL Magnesium (1.7-2.2) mg/dL Total Bilirubin (0.2-1.3) mg/dL AST (14-36) U/L ALT (7-56) U/L Alkaline Phosphatase (38-126) U/L Total Protein (5.8-8.3) g/dL Albumin (3.0-4.8) g/dL Globulin gm/dL Albumin/Globulin Ratio (1.1-1.8) Digoxin (0.8-2.0) ng/mL 08/18/18 08/18/18 08/18/18 Range/Units 05:45 05:45 05:45 WBC (4.5-11.0) 10^3/uL RBC (3.5-6.1) 10^6/uL Hgb (12.0-16.0) g/dL Hct (36.0-48.0) % MCV (80.0-105.0) fl MCH (25.0-35.0) pg MCHC (31.0-37.0) g/dl RDW (11.5-14.5) % Plt Count (120.0-450.0) 10^3/uL MPV (7.0-11.0) fl PT 18.5 H (9.4-12.5) SECONDS INR 1.64 Sodium 145 (132-148) mmol/L Potassium 4.0 (3.6-5.0) mmol/L Chloride 104 (98-107) mmol/L Carbon Dioxide 32 (21-33) mmol/L Anion Gap 13 (10-20) BUN 39 H (7-21) mg/dL Creatinine 0.6 L (0.7-1.2) mg/dl Est GFR ( Amer) > 60 Est GFR (Non-Af Amer) > 60 POC Glucose (mg/dL) (65-110) mg/dL Random Glucose 154 H (70-110) mg/dL Calcium 9.4 (8.4-10.5) mg/dL Magnesium 2.2 (1.7-2.2) mg/dL Total Bilirubin 0.7 (0.2-1.3) mg/dL AST 82 H D (14-36) U/L ALT 153 H (7-56) U/L Alkaline Phosphatase 58 (38-126) U/L Total Protein 6.5 (5.8-8.3) g/dL Albumin 3.7 (3.0-4.8) g/dL Globulin 2.7 gm/dL Albumin/Globulin Ratio 1.4 (1.1-1.8) Digoxin 1.1 (0.8-2.0) ng/mL 08/18/18 08/18/1819 Range/Units 05:45 00:08 17:40 WBC 9.0 D (4.5-11.0) 10^3/uL RBC 4.83 (3.5-6.1) 10^6/uL Hgb 13.6 (12.0-16.0) g/dL Hct 42.9 (36.0-48.0) % MCV 88.8 (80.0-105.0) fl MCH 28.2 (25.0-35.0) pg MCHC 31.7 (31.0-37.0) g/dl RDW 14.7 H (11.5-14.5) % Plt Count 267 (120.0-450.0) 10^3/uL MPV 9.1 (7.0-11.0) fl PT (9.4-12.5) SECONDS INR Sodium (132-148) mmol/L Potassium (3.6-5.0) mmol/L Chloride (98-107) mmol/L Carbon Dioxide (21-33) mmol/L Anion Gap (10-20) BUN (7-21) mg/dL Creatinine (0.7-1.2) mg/dl Est GFR ( Amer) Est GFR (Non-Af Amer) POC Glucose (mg/dL) 124 H 142 H (65-110) mg/dL Random Glucose (70-110) mg/dL Calcium (8.4-10.5) mg/dL Magnesium (1.7-2.2) mg/dL Total Bilirubin (0.2-1.3) mg/dL AST (14-36) U/L ALT (7-56) U/L Alkaline Phosphatase (38-126) U/L Total Protein (5.8-8.3) g/dL Albumin (3.0-4.8) g/dL Globulin gm/dL Albumin/Globulin Ratio (1.1-1.8) Digoxin (0.8-2.0) ng/mL 08/17/18 Range/Units 12:23 WBC (4.5-11.0) 10^3/uL RBC (3.5-6.1) 10^6/uL Hgb (12.0-16.0) g/dL Hct (36.0-48.0) % MCV (80.0-105.0) fl MCH (25.0-35.0) pg MCHC (31.0-37.0) g/dl RDW (11.5-14.5) % Plt Count (120.0-450.0) 10^3/uL MPV (7.0-11.0) fl PT (9.4-12.5) SECONDS INR Sodium (132-148) mmol/L Potassium (3.6-5.0) mmol/L Chloride (98-107) mmol/L Carbon Dioxide (21-33) mmol/L Anion Gap (10-20) BUN (7-21) mg/dL Creatinine (0.7-1.2) mg/dl Est GFR ( Amer) Est GFR (Non-Af Amer) POC Glucose (mg/dL) 151 H (65-110) mg/dL Random Glucose (70-110) mg/dL Calcium (8.4-10.5) mg/dL Magnesium (1.7-2.2) mg/dL Total Bilirubin (0.2-1.3) mg/dL AST (14-36) U/L ALT (7-56) U/L Alkaline Phosphatase (38-126) U/L Total Protein (5.8-8.3) g/dL Albumin (3.0-4.8) g/dL Globulin gm/dL Albumin/Globulin Ratio (1.1-1.8) Digoxin (0.8-2.0) ng/mL Laboratory Results - last 24 hr 08/17/18 08/17/18 08/18/18 12:23 17:40 00:08 WBC RBC Hgb Hct MCV MCH MCHC RDW Plt Count MPV PT INR Sodium Potassium Chloride Carbon Dioxide Anion Gap BUN Creatinine Est GFR ( Amer) Est GFR (Non-Af Amer) POC Glucose (mg/dL) 151 H 142 H 124 H Random Glucose Calcium Magnesium Total Bilirubin AST ALT Alkaline Phosphatase Total Protein Albumin Globulin Albumin/Globulin Ratio Digoxin 08/18/18 08/18/18 08/18/18 05:45 05:45 05:45 WBC 9.0 D RBC 4.83 Hgb 13.6 Hct 42.9 MCV 88.8 MCH 28.2 MCHC 31.7 RDW 14.7 H Plt Count 267 MPV 9.1 PT 18.5 H INR 1.64 Sodium 145 Potassium 4.0 Chloride 104 Carbon Dioxide 32 Anion Gap 13 BUN 39 H Creatinine 0.6 L Est GFR ( Amer) > 60 Est GFR (Non-Af Amer) > 60 POC Glucose (mg/dL) Random Glucose 154 H Calcium 9.4 Magnesium 2.2 Total Bilirubin 0.7 AST 82 H D ALT 153 H Alkaline Phosphatase 58 Total Protein 6.5 Albumin 3.7 Globulin 2.7 Albumin/Globulin Ratio 1.4 Digoxin 08/18/18 08/18/18 08/18/18 05:45 05:45 07:59 WBC RBC Hgb Hct MCV MCH MCHC RDW Plt Count MPV PT INR Sodium Potassium Chloride Carbon Dioxide Anion Gap BUN Creatinine Est GFR ( Amer) Est GFR (Non-Af Amer) POC Glucose (mg/dL) 177 H 148 H Random Glucose Calcium Magnesium Total Bilirubin AST ALT Alkaline Phosphatase Total Protein Albumin Globulin Albumin/Globulin Ratio Digoxin 1.1 08/18/18 11:59 WBC RBC Hgb Hct MCV MCH MCHC RDW Plt Count MPV PT INR Sodium Potassium Chloride Carbon Dioxide Anion Gap BUN Creatinine Est GFR ( Amer) Est GFR (Non-Af Amer) POC Glucose (mg/dL) 171 H Random Glucose Calcium Magnesium Total Bilirubin AST ALT Alkaline Phosphatase Total Protein Albumin Globulin Albumin/Globulin Ratio Digoxin Critical Care Progress Note - Nutrition Nutrition: Nutrition Category Date Time Status Heart Healthy Diet [DIET] Diets 08/17/18 Breakfast Active Assessment/Plan - Assessment and Plan (Free Text) Plan: I saw and examined the patient on rounds with the resident, agree with note with following additions/exceptions: Patient is 72yo female with PMhx severe anxiety, COPD, paroxysmal atrial fibrillation, non-ischemic cardiomyopathy, CAD, poorly controlled, admitted with SOB, resp failure. Yesterday extubated.Today significantly improved, less wheezing on exam, Afebrille HD stable, comfortable in NAD, HR 90-100s, Afib Patient has component of anxiety as well, psychiatry following, on multiple psych meds Resp failure, extubated COPD exacerbation CAD Cardiomyopathy Severe Anxiety Recommend: - cont with BIPAP as needed, duonebs PRN, Pulmicort, taper Solumedrol 40mg IV BID, - BP control - Rate control, Lopressor, Dixogin as per home meds - Lovenox Coumadin bridge - follow up cardiology - GI ppx - DVT ppx - Monitor in MICU '
[2018-08-18] MEDS: Enoxaparin 60 mg Syringe SC SCH ×2 (09:19→22:00)
[2018-08-18] MEDS: Mupirocin 2% Ointment 15 GM TUBE NS SCH ×2 (10:11→17:09)
--- NOTE | 2018-08-18 10:50 | CARD ---
APPROVED REPORT Date of service: 08/17/2018 EKG Measurement Heart [id number] <Conclusion> Atrial fibrillation with rapid ventricular response ST & T wave abnormality, consider inferior ischemia or digitalis effect ST & T wave abnormality, consider anterolateral ischemia or digitalis effect Abnormal ECG
--- NOTE | 2018-08-18 11:44 | CP.PCM.PN ---
<Robert Miller - Last Filed: 08/18/18 11:41> Subjective - Date & Time of Evaluation Date of Evaluation: 08/18/18 Time of Evaluation: 11:41 - Subjective Subjective: Robert Miller, PGY-1, Internal Medicine Progress Note for Dr. Walters Patient seen and evaluated at bedside. Patient had period of restlessness overnight and was started on precedex for sedation. Wrist restraints were maintained. Patient was sedated and calm at bedside with precedex 0.5 mg. Patient had no complaints. 12-point ROS was incomplete due to patient's sedated state. Objective - Vital Signs/Intake and Output Vital Signs (last 24 hours): Temp Pulse Resp BP Pulse Ox 99.1 F 115 H 31 H 165/111 H 95 08/18/18 08:00 08/18/18 10:27 08/18/18 08:30 08/18/18 10:22 08/18/18 08:30 Intake and Output: 08/18/18 08/18/18 06:59 18:59 Intake Total 136.7 99.3 Output Total 600 Balance -463.3 99.3 - Medications Medications: Current Medications Albuterol/Ipratropium (Duoneb 3 Mg/0.5 Mg (3 Ml) Ud) 3 ml IH Q2H PRN PRN Reason: Shortness of Breath Albuterol/Ipratropium (Duoneb 3 Mg/0.5 Mg (3 Ml) Ud) 3 ml IH [id number] [facility] Last Admin: 08/18/18 10:46 Dose: 3 ml Alprazolam (Xanax) 1 mg PO TID [facility]; Protocol Last Admin: 08/18/18 09:22 Dose: 1 mg Aspirin (Aspirin Chewable) 81 mg PO DAILY [facility] Last Admin: 08/18/18 09:20 Dose: 81 mg Atenolol (Tenormin) 25 mg PO BID [facility] Last Admin: 08/18/18 10:22 Dose: 25 mg Atorvastatin Calcium (Lipitor) 10 mg PO HS [facility] Last Admin: 08/16/18 21:31 Dose: 10 mg Budesonide (Pulmicort Respules) 0.5 mg IH [id number] [facility] Last Admin: 08/18/18 07:04 Dose: 0.5 mg Dextrose (Dextrose 50% Inj) 0 ml IV STAT PRN; Protocol PRN Reason: Hypoglycemia Protocol Digoxin (Lanoxin) 0.25 mg PO 1400 [facility] Last Admin: 08/17/18 14:00 Dose: Not Given Enoxaparin Sodium (Lovenox) 60 mg 1 mg/kg (60 mg) SC Q12H [facility]; Protocol Last Admin: 08/18/18 09:19 Dose: 60 mg Famotidine (Pepcid) 20 mg PO DAILY [facility] Last Admin: 08/18/18 09:20 Dose: 20 mg Furosemide (Lasix) 40 mg PO DAILY [facility] Furosemide (Lasix) 40 mg IVP DAILY [facility] Last Admin: 08/18/18 09:47 Dose: 40 mg Gabapentin (Neurontin) 400 mg PO QID [facility]; Protocol Last Admin: 08/18/18 09:21 Dose: 400 mg diltiaZEM IVPB 100mg in NS (Cardizem 100mg In Ns) 100 mls @ 5 mls/hr IV .Q20H PRN; Protocol PRN Reason: TITRATE PER MD ORDER Last Titration: 08/15/18 11:32 Dose: 0 mg/hr, 0 mls/hr Dextrose (Dextrose 5% In Water 1000 Ml) 1,000 mls @ 0 mls/hr IV .Q0M PRN; Protocol PRN Reason: Hypoglycemia Protocol Dexmedetomidine HCl (Precedex 400mcg/100ml) 400 mcg in 100 mls @ 3.084 mls/hr IV .Q24H PRN; Protocol PRN Reason: Agitation Last Admin: 08/18/18 09:18 Dose: 0.7 mcg/kg/hr, 10.796 mls/hr Insulin Human Regular (Humulin R Low) 0 units SC ACHS [facility]; Protocol Last Admin: 08/18/18 08:13 Dose: Not Given Levalbuterol HCl (Xopenex) 1.25 mg IH [id number] PRN PRN Reason: Shortness of Breath Last Admin: 08/17/18 15:19 Dose: 1.25 mg Methylprednisolone (Solu-Medrol) 40 mg IVP Q12H [facility] Last Admin: 08/18/18 09:19 Dose: 40 mg Mupirocin (Bactroban Ointment) 0 gm NS BID [facility] Stop: 08/21/18 10:01 Last Admin: 08/18/18 10:11 Dose: 1 oin Nicotine (Nicoderm Cq) 1 patch TD DAILY [facility] Last Admin: 08/18/18 09:19 Dose: 1 patch Quetiapine Fumarate (Seroquel) 25 mg PO BID [facility]; Protocol Last Admin: 08/18/18 09:20 Dose: 25 mg Sertraline HCl (Zoloft) 100 mg PO BID [facility] Last Admin: 08/18/18 09:21 Dose: 100 mg Verapamil HCl (Verapamil Inj) 2.5 mg IVP Q6H PRN PRN Reason: Heart rate Last Admin: 08/17/18 09:45 Dose: 2.5 mg Verapamil HCl (Calan Tab) 40 mg PO TID [facility] Last Admin: 08/18/18 09:20 Dose: 40 mg Warfarin Sodium (Coumadin) 5 mg PO 1800 [facility]; Protocol Last Admin: 08/17/18 18:29 Dose: 5 mg - Labs Labs: 08/18/18 05:45 08/18/18 05:45 PT 18.5 SECONDS (9.4-12.5) H 08/18/18 05:45 INR 1.64 08/18/18 05:45 APTT 43.0 Seconds (26.9-38.3) H 08/14/18 06:55 - Constitutional Appears: Well, Non-toxic, No Acute Distress - Head Exam Head Exam: ATRAUMATIC, NORMAL INSPECTION, NORMOCEPHALIC - Eye Exam Eye Exam: EOMI, PERRL - ENT Exam ENT Exam: Mucous Membranes Moist - Neck Exam Neck Exam: Full ROM, Normal Inspection - Respiratory Exam Respiratory Exam: Clear to Ausculation Bilateral, NORMAL BREATHING PATTERN. absent: Rales, Rhonchi, Wheezes - Cardiovascular Exam Cardiovascular Exam: Irregular Rhythm, +S1, +S2. absent: Clicks, Gallop, Rubs - GI/Abdominal Exam GI & Abdominal Exam: Soft, Normal Bowel Sounds. absent: Distended, Firm, Guar ding, Tenderness - Extremities Exam Extremities Exam: Full ROM, Normal Capillary Refill, Normal Inspection - Neurological Exam Neurological Exam: Awake, CN II-XII Intact (grossly) Additional comments: difficult to evaluate due to sedated state - Skin Skin Exam: Dry, Intact Additional comments: brusing present Assessment and Plan - Assessment and Plan (Free Text) Assessment: 72 year old female with past medical history of paroxysmal atrial fibrillation, non-ischemic cardiomyopathy, CAD, COPD not on home O2 presented with worsening shortness of breath for everal days. Patient was found to be in Atrial fibrillation with RVR and started on cardizem drip, which helped control rate. Cardizem drip has now been discontinued. INR was subtherapeutic so lovenox was added to bridge along with warfarin. Patient was in respiratory distress secondary to ativan vs. COPD and was intubated. Patient is now extubated. Plan: Hypercapneic repsiratory failure likely 2/2 to COPD -Patient has now been extubated -Patient is currently on BiPap -ABG from 08/17 shows CO2 within normal limits -Reduced solumedrol to 40 mg Q12 -Continue with duonebs Q4 and Q2PRN -Continue with xopenex PRN -Continue with pulmicort -Continue nicotine patch Atrial fibrillation -INR: 1.64 -Continue with verapamil 40 mg TID -Continue with PRN verapamil 2.5 mg IV Q6 -Start atenolol 25 mg BID -Continue digoxin 0.25 mg daily -Continue with therapeutic lovenox at 1 mg/kg until patient has therapeutic INR -Continue with warfarin 5 mg CAD -EKG 08/17: atrial fibrillation with HR: 105 -Tropx4: <0.01, 0.15, 0.12, 0.14 -Continue aspirin 81, atenolol 25 mg BID Diastolic CHF -Continue with atenolol 25 BID, digoxin 0.25 daily, lasix 40 mg IV daily Delirium 2/2 to ICU delirium vs. steroid induced vs. anxiety -Continue to taper steroids as tolerated -Continue to taper precedex drip -Continue with ativan 1 mg TID -Continue seroquel 25 mg BID and sertraline 100 BID Diabetes mellitus type II -Continue with sliding scale insulin -Continue with neurontin 400 QID -Accuchecks ACHS Hypertension -Continue with atenolol 25 mg BID Transaminitis -AST, ALT improved -Abdominal ultrasound: prominent CBD without intrahepatic ductal dilation -Hold atorvastatin GI prophylaxis: pepcid 20 mg daily DVT prophylaxis: warfarin Patient plan discussed with Dr. Walters <Fabio Walters - Last Filed: 08/18/18 12:22> Objective - Vital Signs/Intake and Output Vital Signs (last 24 hours): Temp Pulse Resp BP Pulse Ox 99.1 F 115 H 31 H 165/111 H 95 08/18/18 08:00 08/18/18 10:27 08/18/18 08:30 08/18/18 10:22 08/18/18 08:30 Intake and Output: 08/18/18 08/18/18 06:59 18:59 Intake Total 136.7 99.3 Output Total 600 Balance -463.3 99.3 - Medications Medications: Current Medications Albuterol/Ipratropium (Duoneb 3 Mg/0.5 Mg (3 Ml) Ud) 3 ml IH Q2H PRN PRN Reason: Shortness of Breath Albuterol/Ipratropium (Duoneb 3 Mg/0.5 Mg (3 Ml) Ud) 3 ml IH [id number] [facility] Last Admin: 08/18/18 10:46 Dose: 3 ml Alprazolam (Xanax) 1 mg PO TID [facility]; Protocol Last Admin: 08/18/18 09:22 Dose: 1 mg Aspirin (Aspirin Chewable) 81 mg PO DAILY [facility] Last Admin: 08/18/18 09:20 Dose: 81 mg Atenolol (Tenormin) 25 mg PO BID [facility] Last Admin: 08/18/18 10:22 Dose: 25 mg Atorvastatin Calcium (Lipitor) 10 mg PO HS [facility] Last Admin: 08/16/18 21:31 Dose: 10 mg Budesonide (Pulmicort Respules) 0.5 mg IH [id number] [facility] Last Admin: 08/18/18 07:04 Dose: 0.5 mg Dextrose (Dextrose 50% Inj) 0 ml IV STAT PRN; Protocol PRN Reason: Hypoglycemia Protocol Digoxin (Lanoxin) 0.25 mg PO 1400 [facility] Last Admin: 08/17/18 14:00 Dose: Not Given Enoxaparin Sodium (Lovenox) 60 mg 1 mg/kg (60 mg) SC Q12H [facility]; Protocol Last Admin: 08/18/18 09:19 Dose: 60 mg Famotidine (Pepcid) 20 mg PO DAILY [facility] Last Admin: 08/18/18 09:20 Dose: 20 mg Furosemide (Lasix) 40 mg PO DAILY [facility] Furosemide (Lasix) 40 mg IVP DAILY [facility] Last Admin: 08/18/18 09:47 Dose: 40 mg Gabapentin (Neurontin) 400 mg PO QID [facility]; Protocol Last Admin: 08/18/18 09:21 Dose: 400 mg diltiaZEM IVPB 100mg in NS (Cardizem 100mg In Ns) 100 mls @ 5 mls/hr IV .Q20H PRN; Protocol PRN Reason: TITRATE PER MD ORDER Last Titration: 08/15/18 11:32 Dose: 0 mg/hr, 0 mls/hr Dextrose (Dextrose 5% In Water 1000 Ml) 1,000 mls @ 0 mls/hr IV .Q0M PRN; Protocol PRN Reason: Hypoglycemia Protocol Dexmedetomidine HCl (Precedex 400mcg/100ml) 400 mcg in 100 mls @ 3.084 mls/hr IV .Q24H PRN; Protocol PRN Reason: Agitation Last Admin: 08/18/18 09:18 Dose: 0.7 mcg/kg/hr, 10.796 mls/hr Insulin Human Regular (Humulin R Low) 0 units SC ACHS [facility]; Protocol Last Admin: 08/18/18 08:13 Dose: Not Given Levalbuterol HCl (Xopenex) 1.25 mg IH [id number] PRN PRN Reason: Shortness of Breath Last Admin: 08/17/18 15:19 Dose: 1.25 mg Methylprednisolone (Solu-Medrol) 40 mg IVP Q12H [facility] Last Admin: 08/18/18 09:19 Dose: 40 mg Mupirocin (Bactroban Ointment) 0 gm NS BID [facility] Stop: 08/21/18 10:01 Last Admin: 08/18/18 10:11 Dose: 1 oin Nicotine (Nicoderm Cq) 1 patch TD DAILY [facility] Last Admin: 08/18/18 09:19 Dose: 1 patch Quetiapine Fumarate (Seroquel) 25 mg PO BID [facility]; Protocol Last Admin: 08/18/18 09:20 Dose: 25 mg Sertraline HCl (Zoloft) 100 mg PO BID [facility] Last Admin: 08/18/18 09:21 Dose: 100 mg Verapamil HCl (Verapamil Inj) 2.5 mg IVP Q6H PRN PRN Reason: Heart rate Last Admin: 08/17/18 09:45 Dose: 2.5 mg Verapamil HCl (Calan Tab) 40 mg PO TID [facility] Last Admin: 08/18/18 09:20 Dose: 40 mg Warfarin Sodium (Coumadin) 5 mg PO 1800 [facility]; Protocol Last Admin: 08/17/18 18:29 Dose: 5 mg - Labs Labs: 08/18/18 05:45 08/18/18 05:45 PT 18.5 SECONDS (9.4-12.5) H 08/18/18 05:45 INR 1.64 08/18/18 05:45 APTT 43.0 Seconds (26.9-38.3) H 08/14/18 06:55 Attending/Attestation - Attestation I have personally seen and examined this patient.: Yes I have fully participated in the care of the patient.: Yes I have reviewed all pertinent clinical information, including history, physical exam and plan: Yes Notes (Text): 08/18/18 12:19 72 year old female with past medical history of atrial fibrillation on coumadin, cardiomyopathy, CAD, COPD and active tobacco use who presented with complaint of shortness of breath. She was admitted for COPD exacerbation and AFib with RVR and started on iv steroids and cardizem drip in addition to xopenex and antibiotics. Hospital course was complicated with episode of respiratory distress found to have acute hypercapneic respiratory failure requiring intubation. She was transferred to ICU. She is now extubated as of yesterday and started on bipap. Antibiotics were discontinued and steroids will begin to be tapered. Early this she had episode of agitation and restlessness ?ICU delirium. She was restarted on precedex drip. She is on xanax and seroquel. Psychiatry evaluation was requested. Cardiology is following as well for afib and mildly elevated troponins which have been stable. Continue with coumadin and lovenox for now as INR remains subtherapeutic. Coumadin dose increased yesterday. Continue with lasix. She is also on digoxin and started on atenolol. Continue to monitor LFTs closely which is slowly improving. Hepatitis panel was negative. Abdominal ultrasound was reviewed as above. Continue to hold statin for now. Fabio Walters MD Hospitalist.
[2018-08-18] MEDS: Digoxin 250 mcg (0.25 mg) Tab PO SCH (13:12)
--- NOTE | 2018-08-18 15:20 | PN ---
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 Currently awake on noninvasive ventilator and also for sedation. The patient is on dexmedetomidine and Seroquel to calm her down. PHYSICAL EXAMINATION: VITAL SIGNS: Temperature afebrile, heart rate 110, blood pressure 159/99. HEENT: PERRLA. Extraocular muscles intact. NECK: Supple. No carotid bruits. No thyromegaly. CHEST: Clear to auscultation. HEART: S1, S2. Regular. ABDOMEN: Soft. EXTREMITIES: Clubbing, cyanosis, negative. LABORATORY DATA: WBC 9, hemoglobin 13.6, hematocrit 42.9, platelet count 267. Chemistry shows sodium 145, potassium 4, chloride 104, carbon dioxide 30, anion gap of 13, BUN 39 and creatinine 0.9. IMPRESSION: A 72-year-old female with past medical history significant for nonobstructive coronary artery disease, cardiac catheterization twice, admitted with acute exacerbation of chronic obstructive pulmonary disease, atrial fibrillation with rapid ventricular rate. The patient was in telemetry, had rapid response, and because of the fast heart rate moved to ICU, intubated. The patient had recent echo and MUGA scan shows significant improvement in ventricular function. The patient is borderline positive most likely secondary to stress and strain. Intubated, now successfully extubated. The patient is very anxious. RECOMMENDATION: Continue verapamil 40 mg b.i.d., continue anticoagulation, continue dig, continue atorvastatin, continue beta marina. We will change to atenolol 25 p.o. b.i.d. to control the better rate, advised the patient to relax the patient starts anxious and then the heart rate goes up and then starts heavy breathing. We will follow with you. Thank you Dr. Walters for providing us the opportunity in taking care of the patient, Alecia Arciniega. Mak Mendez MD
[2018-08-18] MEDS: Cefepime 1gm in NS 100ml 1 GM/100 ML BAG IVPB SCH ×2 (16:42→22:24)
[2018-08-18] MEDS: Vancomycin 1gm in NS 250ml 1 GM/250 ML BAG IVPB SCH (16:42)
[2018-08-19] MEDS: Dexmedetomidine 400mcg/100mL 400 MCG/100 ML BOTTLE IV PRN ×3 (00:56→09:29)
[2018-08-19] MEDS: Albuterol-Ipratrop 3 mg / 0.5 (3 ml) UD IH SCH ×5 (03:55→19:55)
[2018-08-19] MEDS: Insulin Reg-LOW-Coverage SC SCH ×5 (04:45→22:00)
[2018-08-19 06:07] LABS: HEMOGLOBIN 13.7 g/dL (12.0-16.0); MEAN CELL VOLUME 90.3 fl (80.0-105.0); MEAN CORPUSCULAR HEMOGLOBIN 28.3 pg (25.0-35.0); MEAN CORPUSCULAR HGB CONC 31.4 g/dl (31.0-37.0); MEAN PLATELET VOLUME 9.7 fl (7.0-11.0); RBC 4.84 10^6/uL (3.5-6.1); RED CELL DISTRIBUTION WIDTH 14.6 % (11.5-14.5); WHITE BLOOD COUNT 11.7 10^3/uL (4.5-11.0)
[2018-08-19 06:08] LABS: INR 3.43; PROTHROMBIN TIME 38.8 SECONDS (9.4-12.5)
[2018-08-19 06:41] LABS: ALB/GLOB RATIO 1.3 (1.1-1.8); ALBUMIN 3.5 g/dL (3.0-4.8); ALT/SGPT 188 U/L (7-56); AST/SGOT 99 U/L (14-36); BLOOD UREA NITROGEN 36 mg/dL (7-21); CALCIUM 9.2 mg/dL (8.4-10.5); GFR NON-AFRICAN AMERICAN > 60
[2018-08-19] MEDS: Budesonide 0.5 mg/2 ml Inhal Susp UD IH SCH ×2 (07:28→19:55)
--- NOTE | 2018-08-19 07:52 | CP.CCUPN ---
<Jefferson Bender - Last Filed: 08/19/18 10:42> CCU Subjective - Physician Review Subjective (Free Text): 08/19/18 07:47 Jefferson Bender PGY-1 Critical Care Progress Note Patient seen and evaluated at bedside. Patient was restless and agitated overnight, in which she again ripped off her BiPAP mask. Currently with NIPPV 10/6 at 30% on Precedex drip. Denies chest pain, palpitations, dizziness headaches and abdominal pain. CCU Objective - Vital Signs / Intake & Output Vital Signs (Last 4 hours): Vital Signs Temp Pulse Resp BP Pulse Ox 08/19/18 07:30 64 08/19/18 04:30 73 23 97 08/19/18 04:08 73 08/19/18 04:00 98.6 F 77 31 H 151/96 H 98 08/19/18 03:57 80 Intake and Output (Last 8hrs): Intake & Output 08/18/18 08/19/18 08/19/18 22:59 06:59 14:59 Intake Total 608 900 Output Total 1400 500 Balance -792 400 Intake: IV 608 500 IVF 50 Left Forearm 300 antibiotics 350 precedex 108 Oral 400 Output: Urine 1400 500 Urethral (Ferguson) 1400 500 Stool 0 0 Other 0 - Physical Exam Head: Positive for: Atraumatic, Normocephalic Pupils: Positive for: PERRL Extroacular Muscles: Positive for: EOMI Conjunctiva: Positive for: Normal Mouth: Positive for: Moist Mucous Membranes Neck: Positive for: Normal Range of Motion Respiratory/Chest: Positive for: Good Air Exchange, Wheezes, Rales, Other (currently on bipap). Negative for: Respiratory Distress, Accessory Muscle Use Cardiovascular: Positive for: Regular Rate and Rhythm, Normal S1, S2. Negative for: Murmurs Abdomen: Negative for: Tenderness, Distention, Peritoneal Signs Back: Positive for: Normal Inspection Upper Extremity: Positive for: Normal Inspection. Negative for: Cyanosis, Edema Lower Extremity: Positive for: Normal Inspection. Negative for: Edema Neurological: Positive for: GCS=15, CN II-XII Intact, Speech Normal Skin: Positive for: Warm, Dry, Normal Color. Negative for: Rashes Psychiatric: Positive for: Alert. Negative for: Oriented x 3 (aaox2) - Medications Active Medications: Active Medications Generic Name Dose Route Start Last Admin Trade Name Freq PRN Reason Stop Dose Admin Albuterol/Ipratropium 3 ml 08/17/18 15:49 Duoneb 3 Mg/0.5 Mg (3 Ml) Ud IH Q2H PRN Shortness of Breath Albuterol/Ipratropium 3 ml 08/17/18 19:00 08/19/18 07:28 Duoneb 3 Mg/0.5 Mg (3 Ml) Ud IH 3 ml [id number] NORA Administration Alprazolam 1 mg 08/17/18 10:00 08/18/18 17:06 Xanax PO 1 mg TID NORA Administration Protocol Aspirin 81 mg 08/15/18 11:00 08/18/18 09:20 Aspirin Chewable PO 81 mg DAILY NORA Administration Atenolol 25 mg 08/18/18 10:00 08/18/18 17:06 Tenormin PO 25 mg BID NORA Administration Atorvastatin Calcium 10 mg 08/14/18 22:00 08/16/18 21:31 Lipitor PO 10 mg HS NORA Administration Budesonide 0.5 mg 08/17/18 09:00 08/19/18 07:28 Pulmicort Respules IH 0.5 mg [id number] NORA Administration Dextrose 0 ml 08/15/18 09:54 Dextrose 50% Inj IV STAT PRN Hypoglycemia Protocol Protocol Digoxin 0.25 mg 08/16/18 14:00 08/18/18 13:12 Lanoxin PO 0.25 mg 1400 NORA Administration Enoxaparin Sodium 60 mg 08/14/18 09:45 08/18/18 22:00 Lovenox 1 mg/kg (60 mg) 60 mg SC Administration Q12H NORA Protocol Famotidine 20 mg 08/15/18 10:00 08/18/18 09:20 Pepcid PO 20 mg DAILY NORA Administration Furosemide 40 mg 08/15/18 10:00 Lasix PO DAILY NORA Furosemide 40 mg 08/15/18 10:00 08/18/18 09:47 Lasix IVP 40 mg DAILY NORA Administration Gabapentin 400 mg 08/14/18 14:00 08/18/18 22:24 Neurontin PO 400 mg QID NORA Administration Protocol diltiaZEM IVPB 100mg in NS 100 mls @ 5 mls/hr 08/15/18 09:04 08/15/18 11:32 Cardizem 100mg In Ns IV 0 mg/hr .Q20H PRN 0 mls/hr TITRATE PER MD ORDER Titration Protocol 5 MG/HR Dextrose 1,000 mls @ 0 mls/hr 08/15/18 09:54 Dextrose 5% In Water 1000 Ml IV .Q0M PRN Hypoglycemia Protocol Protocol Per Protocol Dexmedetomidine HCl 400 mcg in 100 mls @ 3.084 mls/hr 08/15/18 17:48 08/19/18 06:17 Precedex 400mcg/100ml IV 1.5 mcg/kg/hr .Q24H PRN 23.133 mls/hr Agitation Titration Protocol 0.2 MCG/KG/HR Cefepime HCl 1 gm in 100 mls @ 100 mls/hr 08/18/18 15:30 08/18/18 22:24 Maxipime 1gm IVPB 100 mls/hr Q12 NORA Administration Protocol Vancomycin HCl 1 gm in 250 mls @ 167 mls/hr 08/18/18 15:30 08/18/18 16:42 Vancomycin 1gm IVPB 167 mls/hr DAILY NORA Administration Protocol Insulin Human Regular 0 units 08/17/18 11:30 08/19/18 04:45 Humulin R Low SC Not Given ACHS NORA Protocol Levalbuterol HCl 1.25 mg 08/14/18 11:28 08/17/18 15:19 Xopenex IH 1.25 mg [id number] PRN Administration Shortness of Breath Methylprednisolone 40 mg 08/18/18 09:15 08/18/18 22:25 Solu-Medrol IVP 40 mg Q12H NORA Administration Mupirocin 0 gm 08/16/18 18:00 08/18/18 17:09 Bactroban Ointment NS 08/21/18 10:01 1 oin BID NORA Administration Nicotine 1 patch 08/17/18 10:00 08/18/18 09:19 Nicoderm Cq TD 1 patch DAILY NORA Administration Quetiapine Fumarate 25 mg 08/17/18 10:00 08/18/18 17:06 Seroquel PO 25 mg BID NORA Administration Protocol Sertraline HCl 100 mg 08/17/18 10:00 08/18/18 17:06 Zoloft PO 100 mg BID NORA Administration Verapamil HCl 2.5 mg 08/14/18 15:39 08/17/18 09:45 Verapamil Inj IVP 2.5 mg Q6H PRN Administration Heart rate Verapamil HCl 40 mg 08/17/18 14:00 08/18/18 17:07 Calan Tab PO 40 mg TID NORA Administration Warfarin Sodium 5 mg 08/17/18 10:07 08/18/18 17:07 Coumadin PO 5 mg 1800 NORA Administration Protocol - Patient Studies Lab Studies: Microbiology Studies 08/14/18 07:00 Blood Culture - Final Blood-Venous NO GROWTH AFTER 5 DAYS Gram Stain - Final TEST NOT PERFORMED 08/14/18 06:40 Blood Culture - Final Blood-Venous NO GROWTH AFTER 5 DAYS Gram Stain - Final TEST NOT PERFORMED Lab Studies 08/19/18 08/19/18 08/19/18 Range/Units 07:19 05:20 05:20 WBC (4.5-11.0) 10^3/uL RBC (3.5-6.1) 10^6/uL Hgb (12.0-16.0) g/dL Hct (36.0-48.0) % MCV (80.0-105.0) fl MCH (25.0-35.0) pg MCHC (31.0-37.0) g/dl RDW (11.5-14.5) % Plt Count (120.0-450.0) 10^3/uL MPV (7.0-11.0) fl PT 38.8 H (9.4-12.5) SECONDS INR 3.43 Sodium 146 (132-148) mmol/L Potassium 3.9 (3.6-5.0) mmol/L Chloride 107 (98-107) mmol/L Carbon Dioxide 33 (21-33) mmol/L Anion Gap 9 L (10-20) BUN 36 H (7-21) mg/dL Creatinine 0.6 L (0.7-1.2) mg/dl Est GFR ( Amer) > 60 Est GFR (Non-Af Amer) > 60 POC Glucose (mg/dL) 128 H (65-110) mg/dL Random Glucose 122 H (70-110) mg/dL Calcium 9.2 (8.4-10.5) mg/dL Magnesium 2.1 (1.7-2.2) mg/dL Total Bilirubin 0.5 (0.2-1.3) mg/dL AST 99 H D (14-36) U/L ALT 188 H (7-56) U/L Alkaline Phosphatase 54 (38-126) U/L Total Protein 6.3 (5.8-8.3) g/dL Albumin 3.5 (3.0-4.8) g/dL Globulin 2.8 gm/dL Albumin/Globulin Ratio 1.3 (1.1-1.8) 08/19/18 08/18/18 08/18/18 Range/Units 05:20 21:57 16:40 WBC 11.7 H D (4.5-11.0) 10^3/uL RBC 4.84 (3.5-6.1) 10^6/uL Hgb 13.7 (12.0-16.0) g/dL Hct 43.7 (36.0-48.0) % MCV 90.3 (80.0-105.0) fl MCH 28.3 (25.0-35.0) pg MCHC 31.4 (31.0-37.0) g/dl RDW 14.6 H (11.5-14.5) % Plt Count 226 (120.0-450.0) 10^3/uL MPV 9.7 (7.0-11.0) fl PT (9.4-12.5) SECONDS INR Sodium (132-148) mmol/L Potassium (3.6-5.0) mmol/L Chloride (98-107) mmol/L Carbon Dioxide (21-33) mmol/L Anion Gap (10-20) BUN (7-21) mg/dL Creatinine (0.7-1.2) mg/dl Est GFR ( Amer) Est GFR (Non-Af Amer) POC Glucose (mg/dL) 115 H 143 H (65-110) mg/dL Random Glucose (70-110) mg/dL Calcium (8.4-10.5) mg/dL Magnesium (1.7-2.2) mg/dL Total Bilirubin (0.2-1.3) mg/dL AST (14-36) U/L ALT (7-56) U/L Alkaline Phosphatase (38-126) U/L Total Protein (5.8-8.3) g/dL Albumin (3.0-4.8) g/dL Globulin gm/dL Albumin/Globulin Ratio (1.1-1.8) 08/18/18 08/18/18 Range/Units 11:59 07:59 WBC (4.5-11.0) 10^3/uL RBC (3.5-6.1) 10^6/uL Hgb (12.0-16.0) g/dL Hct (36.0-48.0) % MCV (80.0-105.0) fl MCH (25.0-35.0) pg MCHC (31.0-37.0) g/dl RDW (11.5-14.5) % Plt Count (120.0-450.0) 10^3/uL MPV (7.0-11.0) fl PT (9.4-12.5) SECONDS INR Sodium (132-148) mmol/L Potassium (3.6-5.0) mmol/L Chloride (98-107) mmol/L Carbon Dioxide (21-33) mmol/L Anion Gap (10-20) BUN (7-21) mg/dL Creatinine (0.7-1.2) mg/dl Est GFR ( Amer) Est GFR (Non-Af Amer) POC Glucose (mg/dL) 171 H 148 H (65-110) mg/dL Random Glucose (70-110) mg/dL Calcium (8.4-10.5) mg/dL Magnesium (1.7-2.2) mg/dL Total Bilirubin (0.2-1.3) mg/dL AST (14-36) U/L ALT (7-56) U/L Alkaline Phosphatase (38-126) U/L Total Protein (5.8-8.3) g/dL Albumin (3.0-4.8) g/dL Globulin gm/dL Albumin/Globulin Ratio (1.1-1.8) Laboratory Results - last 24 hr 08/18/18 08/18/18 08/18/18 07:59 11:59 16:40 WBC RBC Hgb Hct MCV MCH MCHC RDW Plt Count MPV PT INR Sodium Potassium Chloride Carbon Dioxide Anion Gap BUN Creatinine Est GFR ( Amer) Est GFR (Non-Af Amer) POC Glucose (mg/dL) 148 H 171 H 143 H Random Glucose Calcium Magnesium Total Bilirubin AST ALT Alkaline Phosphatase Total Protein Albumin Globulin Albumin/Globulin Ratio 08/18/18 08/19/18 08/19/18 21:57 05:20 05:20 WBC 11.7 H D RBC 4.84 Hgb 13.7 Hct 43.7 MCV 90.3 MCH 28.3 MCHC 31.4 RDW 14.6 H Plt Count 226 MPV 9.7 PT 38.8 H INR 3.43 Sodium Potassium Chloride Carbon Dioxide Anion Gap BUN Creatinine Est GFR ( Amer) Est GFR (Non-Af Amer) POC Glucose (mg/dL) 115 H Random Glucose Calcium Magnesium Total Bilirubin AST ALT Alkaline Phosphatase Total Protein Albumin Globulin Albumin/Globulin Ratio 08/19/18 08/19/18 05:20 07:19 WBC RBC Hgb Hct MCV MCH MCHC RDW Plt Count MPV PT INR Sodium 146 Potassium 3.9 Chloride 107 Carbon Dioxide 33 Anion Gap 9 L BUN 36 H Creatinine 0.6 L Est GFR ( Amer) > 60 Est GFR (Non-Af Amer) > 60 POC Glucose (mg/dL) 128 H Random Glucose 122 H Calcium 9.2 Magnesium 2.1 Total Bilirubin 0.5 AST 99 H D ALT 188 H Alkaline Phosphatase 54 Total Protein 6.3 Albumin 3.5 Globulin 2.8 Albumin/Globulin Ratio 1.3 Fingerstick Blood Sugar Results: 171 Review of Systems - Review of Systems All systems: reviewed and no additional remarkable complaints except (as described in HPI) Critical Care Progress Note - Nutrition Nutrition: Nutrition Category Date Time Status Heart Healthy Diet [DIET] Diets 08/17/18 Breakfast Active Assessment/Plan - Assessment and Plan (Free Text) Assessment: 72 year old female with a PMHx of paroxysmal atrial fibrillation, non-ischemic cardiomyopathy, CAD, poorly controlled non home O2 COPD secondary to medication compliance and secondary to tobacco abuse who presented with shortness of breath for the past few days. Patient hemodynamically stable, in no acute distress. Cardiovascular: #NSTEMI, #Paroxysmal Atrial Fibrillation, #Diastolic CHF, #CAD, Non-Ischemic Cardiomyopathy -cardiology consulted, Dr Mendez -C/w Atenolol 25 mg BID -troponin <0.01 -> 0.15 -> 0.12 -> 0.14 -probnp 1929 -echo 01/2018 showed EF 54%, limited study, mild TR, mild MR -resume home med cardizem 30mg po q6h nora -resumed home metoprolol tartrate 25mg po bid nora -resumed home digoxin 0.25mg po qd, loaded with digoxin 1g on day of admission as digoxin level was < 0.4 likely non-compliance with med at home, f/u Dig level in AM -aspirin 81mg po qd, lipitor 10mg po hs -verapamil 2.5mg ivp q6h prn for HR > 130 -C/w verapamil 40mg po tid -C/w lasix 40mg ivp qd -anticoagulation with lovenox 60mg sc q12h -> bridge to warfarin, resumed home med warfarin titrate until goal INR 2-3. Hold both today as INR supratherapuetic Pulmonary: #COPD Exacerbation -extubated yesterday - currently on bipap -duoneb scheduled q6h -pulmicort 0.5 ih bid -decrease solumedrol to 20mg ivp q12h ID: #Leukocytosis, resolved - tx empirically for COPD exacerbation with Cefepime and Vanc - leukocytosis likely 2/2 steroids - doxycycline 100mg ivp q12h (started 08/14) and rocephin 1g ivp qd (started 08/15) * both discontinued 08/17 - could be causing elevated LFTs and already received 4 days of abx - blood cx 08/14 negative up to date Renal: #Hyperkalemia, resolved -received 1 dose of patiromer Neuro: - AAOx3, no deficits Psychiatry: #Anxiety, #Agitation -Precedex drip discontinued - resumed home psychiatry meds quetiapine 25mg po bid, sertraline 100mg po bid and alprazolam 1mg po tid - ekg 08/17 with normal qtc - consulted psychiatry Dr Linton, awaiting recs regarding a suitable anxiolytic that does not cause respiratory issues GI: - c/w heart healthy diet, tolerating PPx: pepcid 20mg po qd, therapeutic AC on hold, SCDs Patient seen, case reviewed and plan approved by Dr. Reynaga. Jefferson Bender, PGY-1 <Nile Reynaga - Last Filed: 08/19/18 12:01> CCU Objective - Vital Signs / Intake & Output Vital Signs (Last 4 hours): Vital Signs Pulse BP 08/19/18 10:02 68 138/82 08/19/18 10:00 138/82 Intake and Output (Last 8hrs): Intake & Output 08/18/18 08/19/18 08/19/18 22:59 06:59 14:59 Intake Total 608 900 100 Output Total 1400 500 Balance -792 400 100 Intake: IV 608 500 100 IVF 50 Left Forearm 300 antibiotics 350 precedex 108 Oral 400 Output: Urine 1400 500 Urethral (Ferguson) 1400 500 Stool 0 0 Other 0 - Medications Active Medications: Active Medications Generic Name Dose Route Start Last Admin Trade Name Freq PRN Reason Stop Dose Admin Albuterol/Ipratropium 3 ml 08/17/18 15:49 Duoneb 3 Mg/0.5 Mg (3 Ml) Ud IH Q2H PRN Shortness of Breath Albuterol/Ipratropium 3 ml 08/17/18 19:00 08/19/18 10:57 Duoneb 3 Mg/0.5 Mg (3 Ml) Ud IH 3 ml [id number] NORA Administration Alprazolam 1 mg 08/17/18 10:00 08/19/18 10:02 Xanax PO 1 mg TID NORA Administration Protocol Aspirin 81 mg 08/15/18 11:00 08/19/18 10:02 Aspirin Chewable PO 81 mg DAILY NORA Administration Atenolol 25 mg 08/18/18 10:00 08/19/18 10:02 Tenormin PO 25 mg BID NORA Administration Atorvastatin Calcium 10 mg 08/14/18 22:00 08/16/18 21:31 Lipitor PO 10 mg HS NORA Administration Budesonide 0.5 mg 08/17/18 09:00 08/19/18 07:28 Pulmicort Respules IH 0.5 mg [id number] NORA Administration Dextrose 0 ml 08/15/18 09:54 Dextrose 50% Inj IV STAT PRN Hypoglycemia Protocol Protocol Digoxin 0.25 mg 08/16/18 14:00 08/18/18 13:12 Lanoxin PO 0.25 mg 1400 NORA Administration Famotidine 20 mg 08/15/18 10:00 08/19/18 10:03 Pepcid PO 20 mg DAILY NORA Administration Furosemide 40 mg 08/15/18 10:00 Lasix PO DAILY NORA Furosemide 40 mg 08/15/18 10:00 08/19/18 10:00 Lasix IVP 40 mg DAILY NORA Administration Gabapentin 400 mg 08/14/18 14:00 08/19/18 10:03 Neurontin PO 400 mg QID NORA Administration Protocol diltiaZEM IVPB 100mg in NS 100 mls @ 5 mls/hr 08/15/18 09:04 08/15/18 11:32 Cardizem 100mg In Ns IV 0 mg/hr .Q20H PRN 0 mls/hr TITRATE PER MD ORDER Titration Protocol 5 MG/HR Dextrose 1,000 mls @ 0 mls/hr 08/15/18 09:54 Dextrose 5% In Water 1000 Ml IV .Q0M PRN Hypoglycemia Protocol Protocol Per Protocol Cefepime HCl 1 gm in 100 mls @ 100 mls/hr 08/18/18 15:30 08/19/18 10:00 Maxipime 1gm IVPB 100 mls/hr Q12 NORA Administration Protocol Vancomycin HCl 1 gm in 250 mls @ 167 mls/hr 08/18/18 15:30 08/19/18 10:00 Vancomycin 1gm IVPB 167 mls/hr DAILY NORA Administration Protocol Insulin Human Regular 0 units 08/17/18 11:30 08/19/18 08:00 Humulin R Low SC Not Given ACHS NORA Protocol Levalbuterol HCl 1.25 mg 08/14/18 11:28 08/17/18 15:19 Xopenex IH 1.25 mg [id number] PRN Administration Shortness of Breath Methylprednisolone 20 mg 08/19/18 10:04 08/19/18 10:07 Solu-Medrol IVP 20 mg Q12H NORA Administration Mupirocin 0 gm 08/16/18 18:00 08/19/18 10:05 Bactroban Ointment NS 08/21/18 10:01 1 oin BID NORA Administration Nicotine 1 patch 08/17/18 10:00 08/19/18 10:00 Nicoderm Cq TD 1 patch DAILY NORA Administration Quetiapine Fumarate 25 mg 08/17/18 10:00 08/19/18 10:02 Seroquel PO 25 mg BID NORA Administration Protocol Sertraline HCl 100 mg 08/17/18 10:00 08/19/18 10:03 Zoloft PO 100 mg BID NORA Administration Verapamil HCl 2.5 mg 08/14/18 15:39 08/17/18 09:45 Verapamil Inj IVP 2.5 mg Q6H PRN Administration Heart rate Verapamil HCl 40 mg 08/17/18 14:00 08/19/18 10:02 Calan Tab PO 40 mg TID NORA Administration Warfarin Sodium 5 mg 08/17/18 10:07 08/18/18 17:07 Coumadin PO 5 mg 1800 NORA Administration Protocol - Patient Studies Lab Studies: Microbiology Studies 08/14/18 07:00 Blood Culture - Final Blood-Venous NO GROWTH AFTER 5 DAYS Gram Stain - Final TEST NOT PERFORMED 08/14/18 06:40 Blood Culture - Final Blood-Venous NO GROWTH AFTER 5 DAYS Gram Stain - Final TEST NOT PERFORMED Lab Studies 08/19/18 08/19/18 08/19/18 Range/Units 07:19 05:20 05:20 WBC (4.5-11.0) 10^3/uL RBC (3.5-6.1) 10^6/uL Hgb (12.0-16.0) g/dL Hct (36.0-48.0) % MCV (80.0-105.0) fl MCH (25.0-35.0) pg MCHC (31.0-37.0) g/dl RDW (11.5-14.5) % Plt Count (120.0-450.0) 10^3/uL MPV (7.0-11.0) fl PT 38.8 H (9.4-12.5) SECONDS INR 3.43 Sodium 146 (132-148) mmol/L Potassium 3.9 (3.6-5.0) mmol/L Chloride 107 (98-107) mmol/L Carbon Dioxide 33 (21-33) mmol/L Anion Gap 9 L (10-20) BUN 36 H (7-21) mg/dL Creatinine 0.6 L (0.7-1.2) mg/dl Est GFR ( Amer) > 60 Est GFR (Non-Af Amer) > 60 POC Glucose (mg/dL) 128 H (65-110) mg/dL Random Glucose 122 H (70-110) mg/dL Calcium 9.2 (8.4-10.5) mg/dL Magnesium 2.1 (1.7-2.2) mg/dL Total Bilirubin 0.5 (0.2-1.3) mg/dL AST 99 H D (14-36) U/L ALT 188 H (7-56) U/L Alkaline Phosphatase 54 (38-126) U/L Total Protein 6.3 (5.8-8.3) g/dL Albumin 3.5 (3.0-4.8) g/dL Globulin 2.8 gm/dL Albumin/Globulin Ratio 1.3 (1.1-1.8) 08/19/18 08/18/18 08/18/18 Range/Units 05:20 21:57 16:40 WBC 11.7 H D (4.5-11.0) 10^3/uL RBC 4.84 (3.5-6.1) 10^6/uL Hgb 13.7 (12.0-16.0) g/dL Hct 43.7 (36.0-48.0) % MCV 90.3 (80.0-105.0) fl MCH 28.3 (25.0-35.0) pg MCHC 31.4 (31.0-37.0) g/dl RDW 14.6 H (11.5-14.5) % Plt Count 226 (120.0-450.0) 10^3/uL MPV 9.7 (7.0-11.0) fl PT (9.4-12.5) SECONDS INR Sodium (132-148) mmol/L Potassium (3.6-5.0) mmol/L Chloride (98-107) mmol/L Carbon Dioxide (21-33) mmol/L Anion Gap (10-20) BUN (7-21) mg/dL Creatinine (0.7-1.2) mg/dl Est GFR ( Amer) Est GFR (Non-Af Amer) POC Glucose (mg/dL) 115 H 143 H (65-110) mg/dL Random Glucose (70-110) mg/dL Calcium (8.4-10.5) mg/dL Magnesium (1.7-2.2) mg/dL Total Bilirubin (0.2-1.3) mg/dL AST (14-36) U/L ALT (7-56) U/L Alkaline Phosphatase (38-126) U/L Total Protein (5.8-8.3) g/dL Albumin (3.0-4.8) g/dL Globulin gm/dL Albumin/Globulin Ratio (1.1-1.8) 08/18/18 08/18/18 Range/Units 11:59 07:59 WBC (4.5-11.0) 10^3/uL RBC (3.5-6.1) 10^6/uL Hgb (12.0-16.0) g/dL Hct (36.0-48.0) % MCV (80.0-105.0) fl MCH (25.0-35.0) pg MCHC (31.0-37.0) g/dl RDW (11.5-14.5) % Plt Count (120.0-450.0) 10^3/uL MPV (7.0-11.0) fl PT (9.4-12.5) SECONDS INR Sodium (132-148) mmol/L Potassium (3.6-5.0) mmol/L Chloride (98-107) mmol/L Carbon Dioxide (21-33) mmol/L Anion Gap (10-20) BUN (7-21) mg/dL Creatinine (0.7-1.2) mg/dl Est GFR ( Amer) Est GFR (Non-Af Amer) POC Glucose (mg/dL) 171 H 148 H (65-110) mg/dL Random Glucose (70-110) mg/dL Calcium (8.4-10.5) mg/dL Magnesium (1.7-2.2) mg/dL Total Bilirubin (0.2-1.3) mg/dL AST (14-36) U/L ALT (7-56) U/L Alkaline Phosphatase (38-126) U/L Total Protein (5.8-8.3) g/dL Albumin (3.0-4.8) g/dL Globulin gm/dL Albumin/Globulin Ratio (1.1-1.8) Laboratory Results - last 24 hr 08/18/18 08/18/18 08/18/18 07:59 11:59 16:40 WBC RBC Hgb Hct MCV MCH MCHC RDW Plt Count MPV PT INR Sodium Potassium Chloride Carbon Dioxide Anion Gap BUN Creatinine Est GFR ( Amer) Est GFR (Non-Af Amer) POC Glucose (mg/dL) 148 H 171 H 143 H Random Glucose Calcium Magnesium Total Bilirubin AST ALT Alkaline Phosphatase Total Protein Albumin Globulin Albumin/Globulin Ratio 08/18/18 08/19/18 08/19/18 21:57 05:20 05:20 WBC 11.7 H D RBC 4.84 Hgb 13.7 Hct 43.7 MCV 90.3 MCH 28.3 MCHC 31.4 RDW 14.6 H Plt Count 226 MPV 9.7 PT 38.8 H INR 3.43 Sodium Potassium Chloride Carbon Dioxide Anion Gap BUN Creatinine Est GFR ( Amer) Est GFR (Non-Af Amer) POC Glucose (mg/dL) 115 H Random Glucose Calcium Magnesium Total Bilirubin AST ALT Alkaline Phosphatase Total Protein Albumin Globulin Albumin/Globulin Ratio 08/19/18 08/19/18 05:20 07:19 WBC RBC Hgb Hct MCV MCH MCHC RDW Plt Count MPV PT INR Sodium 146 Potassium 3.9 Chloride 107 Carbon Dioxide 33 Anion Gap 9 L BUN 36 H Creatinine 0.6 L Est GFR ( Amer) > 60 Est GFR (Non-Af Amer) > 60 POC Glucose (mg/dL) 128 H Random Glucose 122 H Calcium 9.2 Magnesium 2.1 Total Bilirubin 0.5 AST 99 H D ALT 188 H Alkaline Phosphatase 54 Total Protein 6.3 Albumin 3.5 Globulin 2.8 Albumin/Globulin Ratio 1.3 Critical Care Progress Note - Nutrition Nutrition: Nutrition Category Date Time Status Heart Healthy Diet [DIET] Diets 08/17/18 Breakfast Active Assessment/Plan - Assessment and Plan (Free Text) Assessment: I saw and examined the patient on rounds with the resident, agree with note with following additions/exceptions: Patient is 72yo female with PMhx severe anxiety, COPD, paroxysmal atrial fibrillation, non-ischemic cardiomyopathy, CAD, poorly controlled, admitted with SOB, resp failure, extubated in ICU Currently afebrile, HD stable, comfortable OFF BIPAP, HR 70-90s Patient has component of anxiety as well, psychiatry following, on multiple psych meds Will follow closely Resp failure, extubated COPD exacerbation CAD Cardiomyopathy Severe Anxiety Recommend: - cont with BIPAP as needed. duonebs PRN, Pulmicort, SOlumedrol 20mg IV BID, - follow up cultures, cont with Vanco, Cefepime - BP control - Rate control, Lopressor, Dixogin as per home meds - DC Lovenox, HOLD coumadin, INR>3 - follow up cardiology - GI ppx - DVT ppx - Stable, transfer to tele
--- NOTE | 2018-08-19 08:16 | CP.PCM.PN ---
<Valentino Singh - Last Filed: 08/19/18 14:38> Subjective - Date & Time of Evaluation Date of Evaluation: 08/19/18 Time of Evaluation: 08:15 - Subjective Subjective: Progress Note for Hospitalist Service - Baljeet Singh PGY2 Patient seen and examined this AM. Patient noted to have continued agitation overnight requiring precedex drip. Patient extubated for 24 hours and on BiPAP. Patient is arousable by sternal rub this AM with limited conversation. She is able to follow commands. Denies chest pain, abdominal pain, nausea, fever, chills. Objective - Vital Signs/Intake and Output Vital Signs (last 24 hours): Temp Pulse Resp BP Pulse Ox 98.6 F 64 23 151/96 H 97 08/19/18 04:00 08/19/18 07:30 08/19/18 04:30 08/19/18 04:00 08/19/18 04:30 Intake and Output: 08/19/18 08/19/18 06:59 18:59 Intake Total 900 Output Total 500 Balance 400 - Medications Medications: Current Medications Albuterol/Ipratropium (Duoneb 3 Mg/0.5 Mg (3 Ml) Ud) 3 ml IH Q2H PRN PRN Reason: Shortness of Breath Albuterol/Ipratropium (Duoneb 3 Mg/0.5 Mg (3 Ml) Ud) 3 ml IH [id number] [facility] Last Admin: 08/19/18 07:28 Dose: 3 ml Alprazolam (Xanax) 1 mg PO TID [facility]; Protocol Last Admin: 08/18/18 17:06 Dose: 1 mg Aspirin (Aspirin Chewable) 81 mg PO DAILY [facility] Last Admin: 08/18/18 09:20 Dose: 81 mg Atenolol (Tenormin) 25 mg PO BID [facility] Last Admin: 08/18/18 17:06 Dose: 25 mg Atorvastatin Calcium (Lipitor) 10 mg PO HS [facility] Last Admin: 08/16/18 21:31 Dose: 10 mg Budesonide (Pulmicort Respules) 0.5 mg IH [id number] [facility] Last Admin: 08/19/18 07:28 Dose: 0.5 mg Dextrose (Dextrose 50% Inj) 0 ml IV STAT PRN; Protocol PRN Reason: Hypoglycemia Protocol Digoxin (Lanoxin) 0.25 mg PO 1400 [facility] Last Admin: 08/18/18 13:12 Dose: 0.25 mg Enoxaparin Sodium (Lovenox) 60 mg 1 mg/kg (60 mg) SC Q12H [facility]; Protocol Last Admin: 08/18/18 22:00 Dose: 60 mg Famotidine (Pepcid) 20 mg PO DAILY [facility] Last Admin: 08/18/18 09:20 Dose: 20 mg Furosemide (Lasix) 40 mg PO DAILY [facility] Furosemide (Lasix) 40 mg IVP DAILY [facility] Last Admin: 08/18/18 09:47 Dose: 40 mg Gabapentin (Neurontin) 400 mg PO QID [facility]; Protocol Last Admin: 08/18/18 22:24 Dose: 400 mg diltiaZEM IVPB 100mg in NS (Cardizem 100mg In Ns) 100 mls @ 5 mls/hr IV .Q20H PRN; Protocol PRN Reason: TITRATE PER MD ORDER Last Titration: 08/15/18 11:32 Dose: 0 mg/hr, 0 mls/hr Dextrose (Dextrose 5% In Water 1000 Ml) 1,000 mls @ 0 mls/hr IV .Q0M PRN; Protocol PRN Reason: Hypoglycemia Protocol Dexmedetomidine HCl (Precedex 400mcg/100ml) 400 mcg in 100 mls @ 3.084 mls/hr IV .Q24H PRN; Protocol PRN Reason: Agitation Last Titration: 08/19/18 06:17 Dose: 1.5 mcg/kg/hr, 23.133 mls/hr Cefepime HCl (Maxipime 1gm) 1 gm in 100 mls @ 100 mls/hr IVPB Q12 [facility]; Protocol Last Admin: 08/18/18 22:24 Dose: 100 mls/hr Vancomycin HCl (Vancomycin 1gm) 1 gm in 250 mls @ 167 mls/hr IVPB DAILY [facility]; Protocol Last Admin: 08/18/18 16:42 Dose: 167 mls/hr Insulin Human Regular (Humulin R Low) 0 units SC ACHS [facility]; Protocol Last Admin: 08/19/18 04:45 Dose: Not Given Levalbuterol HCl (Xopenex) 1.25 mg IH [id number] PRN PRN Reason: Shortness of Breath Last Admin: 08/17/18 15:19 Dose: 1.25 mg Methylprednisolone (Solu-Medrol) 40 mg IVP Q12H [facility] Last Admin: 08/18/18 22:25 Dose: 40 mg Mupirocin (Bactroban Ointment) 0 gm NS BID [facility] Stop: 08/21/18 10:01 Last Admin: 08/18/18 17:09 Dose: 1 oin Nicotine (Nicoderm Cq) 1 patch TD DAILY [facility] Last Admin: 08/18/18 09:19 Dose: 1 patch Quetiapine Fumarate (Seroquel) 25 mg PO BID [facility]; Protocol Last Admin: 08/18/18 17:06 Dose: 25 mg Sertraline HCl (Zoloft) 100 mg PO BID [facility] Last Admin: 08/18/18 17:06 Dose: 100 mg Verapamil HCl (Verapamil Inj) 2.5 mg IVP Q6H PRN PRN Reason: Heart rate Last Admin: 08/17/18 09:45 Dose: 2.5 mg Verapamil HCl (Calan Tab) 40 mg PO TID [facility] Last Admin: 08/18/18 17:07 Dose: 40 mg Warfarin Sodium (Coumadin) 5 mg PO 1800 [facility]; Protocol Last Admin: 08/18/18 17:07 Dose: 5 mg - Labs Labs: 08/19/18 05:20 08/19/18 05:20 PT 38.8 SECONDS (9.4-12.5) H 08/19/18 05:20 INR 3.43 08/19/18 05:20 APTT 43.0 Seconds (26.9-38.3) H 08/14/18 06:55 - Constitutional Appears: No Acute Distress - Head Exam Head Exam: ATRAUMATIC, NORMOCEPHALIC - Eye Exam Eye Exam: EOMI, PERRL - ENT Exam Additional comments: BiPAP mask in place, secure fit - Neck Exam Neck Exam: Full ROM - Respiratory Exam Respiratory Exam: Clear to Ausculation Bilateral, NORMAL BREATHING PATTERN. absent: Wheezes - Cardiovascular Exam Cardiovascular Exam: Irregular Rhythm, +S1, +S2. absent: Tachycardia - GI/Abdominal Exam GI & Abdominal Exam: Soft, Normal Bowel Sounds. absent: Firm, Guarding, Rigid, Tenderness - Neurological Exam Neurological Exam: Alert, Awake Additional comments: Patient currently on precedex gtt, neuro exam limited, patient moving all four extremities, motor and sensory grossly intact - Psychiatric Exam Additional comments: precedex gtt currently ongoing, exam limited, no agitation noted - Skin Skin Exam: Dry, Intact Assessment and Plan - Assessment and Plan (Free Text) Assessment: 72 year old female with past medical history of paroxysmal atrial fibrillation, non-ischemic cardiomyopathy, CAD, COPD not on home O2 presented with worsening shortness of breath for everal days. Patient was found to be in Atrial fibrillation with RVR and started on cardizem drip, which helped control rate. Cardizem drip has now been discontinued. INR was subtherapeutic so lovenox was added to bridge along with warfarin. Patient was in respiratory distress secondary to ativan vs. COPD and was intubated. Patient has been extubated for 24 hours and on BiPAP Plan: Hypercapneic repsiratory failure likely 2/2 to COPD - resolved now extubated -BiPAP as tolerated -Continue solumedrol to 40 mg Q12 -Continue with duonebs Q4 and Q2PRN -Continue with xopenex PRN, pulmicort -Continue nicotine patch Atrial fibrillation -INR: 1.64 -Continue with verapamil 40 mg TID -Continue with PRN verapamil 2.5 mg IV Q6 -Continue atenolol 25 mg BID -Continue digoxin 0.25 mg daily -Continue with therapeutic lovenox at 1 mg/kg until patient has therapeutic INR -Continue with warfarin 5 mg, consider increase until patient INR theraputic CAD -EKG 08/17: atrial fibrillation with HR: 105 -Tropx4: <0.01, 0.15, 0.12, 0.14 -Continue aspirin 81, atenolol 25 mg BID -Cardiology Diastolic CHF -Continue with atenolol 25mg BID -Continue with digoxin 0.25 daily -Continue lasix 40 mg IV daily Delirium 2/2 to ICU delirium vs. steroid induced vs. anxiety -Continue to taper steroids as tolerated -Continue with ativan 1 mg TID -Continue seroquel 25 mg BID and sertraline 100 BID Diabetes mellitus type II -Continue with sliding scale insulin -Continue with neurontin 400 QID -Accuchecks ACHS Hypertension -Continue with atenolol 25 mg BID -Continue atenolol 25mg BID Transaminitis -AST, ALT improved -Abdominal ultrasound: prominent CBD without intrahepatic ductal dilation -Hold atorvastatin -Hold hepatotoxic medication, holding tylenol GI/DVT ppx - Pepcid - Warfarin, Lovenox Patient seen, case and plan discussed with Dr. Sparrow <Mak Sparrow - Last Filed: 08/24/18 14:04> Objective - Vital Signs/Intake and Output Vital Signs (last 24 hours): Temp Pulse Resp BP Pulse Ox 98.1 F 89 18 127/73 93 L 08/24/18 07:00 08/24/18 07:00 08/24/18 07:00 08/24/18 09:08 08/24/18 11:50 - Medications Medications: Current Medications Albuterol/Ipratropium (Duoneb 3 Mg/0.5 Mg (3 Ml) Ud) 3 ml IH Q2H PRN PRN Reason: Shortness of Breath Last Admin: 08/22/18 09:26 Dose: 3 ml Albuterol/Ipratropium (Duoneb 3 Mg/0.5 Mg (3 Ml) Ud) 3 ml IH [id number] [facility] Last Admin: 08/24/18 11:21 Dose: 3 ml Alprazolam (Xanax) 1 mg PO TID [facility]; Protocol Last Admin: 08/24/18 09:09 Dose: 1 mg Aspirin (Aspirin Chewable) 81 mg PO DAILY [facility] Last Admin: 08/24/18 09:08 Dose: 81 mg Atenolol (Tenormin) 25 mg PO BID [facility] Last Admin: 08/24/18 09:07 Dose: 25 mg Atorvastatin Calcium (Lipitor) 10 mg PO HS [facility] Last Admin: 08/16/18 21:31 Dose: 10 mg Budesonide (Pulmicort Respules) 0.5 mg IH [id number] [facility] Last Admin: 08/24/18 07:15 Dose: 0.5 mg Dextrose (Dextrose 50% Inj) 0 ml IV STAT PRN; Protocol PRN Reason: Hypoglycemia Protocol Digoxin (Lanoxin) 0.25 mg PO 1400 [facility] Last Admin: 08/23/18 14:23 Dose: 0.25 mg Famotidine (Pepcid) 20 mg PO DAILY [facility] Last Admin: 08/24/18 09:07 Dose: 20 mg Furosemide (Lasix) 40 mg PO DAILY [facility] Last Admin: 08/24/18 09:07 Dose: 40 mg Gabapentin (Neurontin) 400 mg PO QID [facility]; Protocol Last Admin: 08/24/18 09:08 Dose: 400 mg Dextrose (Dextrose 5% In Water 1000 Ml) 1,000 mls @ 0 mls/hr IV .Q0M PRN; Protocol PRN Reason: Hypoglycemia Protocol Insulin Human Regular (Humulin R Low) 0 units SC ACHS [facility]; Protocol Last Admin: 08/24/18 11:22 Dose: Not Given Levalbuterol HCl (Xopenex) 1.25 mg IH [id number] PRN PRN Reason: Shortness of Breath Last Admin: 08/22/18 12:49 Dose: 1.25 mg Nicotine (Nicoderm Cq) 1 patch TD DAILY [facility] Last Admin: 08/24/18 09:10 Dose: 1 patch Prednisone (Prednisone Tab) 15 mg PO DAILY [facility] Last Admin: 08/24/18 11:24 Dose: Not Given Quetiapine Fumarate (Seroquel) 25 mg PO BID [facility]; Protocol Last Admin: 08/24/18 09:09 Dose: 25 mg Sertraline HCl (Zoloft) 100 mg PO DAILY [facility] Last Admin: 08/24/18 09:08 Dose: 100 mg Verapamil HCl (Verapamil Inj) 2.5 mg IVP Q6H PRN PRN Reason: Heart rate Last Admin: 08/17/18 09:45 Dose: 2.5 mg Verapamil HCl (Calan Tab) 40 mg PO TID [facility] Last Admin: 08/24/18 09:08 Dose: 40 mg Warfarin Sodium (Coumadin) 3 mg PO 1800 [facility]; Protocol Last Admin: 08/23/18 17:03 Dose: 3 mg - Labs Labs: 08/24/18 07:00 08/24/18 07:00 PT 23.7 SECONDS (9.4-12.5) H 08/24/18 07:00 INR 2.10 08/24/18 07:00 APTT 43.0 Seconds (26.9-38.3) H 08/14/18 06:55 Attending/Attestation - Attestation I have personally seen and examined this patient.: Yes I have fully participated in the care of the patient.: Yes I have reviewed all pertinent clinical information, including history, physical exam and plan: Yes Notes (Text): 08/24/18 14:04 Medical record note made by the resident after discussion with my direction and input after the patient was personally seen and examined by me. I have reviewed the chart and agree that the record accurately reflects by personal performance of the history, physical exam, data review, and medical decision-making, in the course for the patient. I have also personally directed the plan of care.
[2018-08-19] MEDS: Vancomycin 1gm in NS 250ml 1 GM/250 ML BAG IVPB SCH (10:00)
[2018-08-19] MEDS: Cefepime 1gm in NS 100ml 1 GM/100 ML BAG IVPB SCH ×2 (10:00→21:17)
[2018-08-19] MEDS: Mupirocin 2% Ointment 15 GM TUBE NS SCH ×2 (10:05→18:24)
[2018-08-19] MEDS: MethylPREDNISolone 40 mg Vial IVP SCH ×4 (10:06→21:16)
--- NOTE | 2018-08-19 13:28 | PN ---
DATE: 08/19/2018 REASON FOR CONSULTATION AND FOLLOWUP: Atrial fibrillation with rapid rate, status post [employer], status post intubated, now successfully extubated. Currently awake, on noninvasive ventilator and also for sedation. Apparently now on BiPAP, relatively hemodynamically stable. SUBJECTIVE: The patient denies any chest pain, shortness of breath, or any palpitation. OBJECTIVE: GENERAL: Not in apparent distress. VITAL SIGNS: Temperature afebrile, heart rate 64, blood pressure 130/80. HEENT: PERRLA. Extraocular muscles intact. NECK: Supple. No carotid bruits. No thyromegaly. CHEST: Clear to auscultation. HEART: S1, S2. Regular. ABDOMEN: Soft. EXTREMITIES: Clubbing, cyanosis negative. LABORATORY DATA: WBC 11.7, hemoglobin 13.7, hematocrit 43.7, platelet count 227. Chemistry shows sodium 146, potassium 3.9, chloride 103, carbon dioxide 33, anion gap of 9, BUN 36 and creatinine 0.6. IMPRESSION: A 72-year-old female with past medical history significant for nonobstructive coronary artery disease, cardiac catheterization twice, admitted with acute exacerbation of chronic obstructive pulmonary disease, history of atrial fibrillation, was on the floor, had Rapid Response, intubated, moved to ICU. Recent MUGA scan shows preserved left ventricular function improvement. On admission, borderline troponin, positive secondary to stress and strain. The patient was successfully extubated, when the patient wakes up, gets anxious, heart rate goes up, otherwise the patient remains stable. RECOMMENDATION: Continue verapamil. Continue atenolol twice. INR is 3.43. We will discontinue Lovenox. Hold the Coumadin today because of elevated INR. When INR below 2.5 we will restart Coumadin. Followup PT/INR tomorrow. Discussed with Dr. Nile Reynaga who was the patient assistant teacher primary. We will follow with you. We will repeat PT/INR tomorrow. Continue digoxin. We will repeat digoxin level tomorrow. Mak Mendez MD
[2018-08-19] MEDS: Digoxin 250 mcg (0.25 mg) Tab PO SCH (14:42)
[2018-08-20] MEDS: Albuterol-Ipratrop 3 mg / 0.5 (3 ml) UD IH SCH ×7 (03:45→23:11)
[2018-08-20 06:11] LABS: BASO # 0.01 K/mm3 (0.0-2.0); BASO % 0.1 % (0.0-3.0); EOS % 0.1 % (1.5-5.0); HEMOGLOBIN 13.5 g/dL (12.0-16.0); MEAN CELL VOLUME 89.2 fl (80.0-105.0); MEAN CORPUSCULAR HGB CONC 31.4 g/dl (31.0-37.0); MEAN PLATELET VOLUME 9.5 fl (7.0-11.0); MONO % 7.5 % (1.0-6.0); PROTHROMBIN TIME 39.8 SECONDS (9.4-12.5); RBC 4.82 10^6/uL (3.5-6.1); RED CELL DISTRIBUTION WIDTH 14.1 % (11.5-14.5); WHITE BLOOD COUNT 13.8 10^3/uL (4.5-11.0)
[2018-08-20 06:41] LABS: INR 3.52
[2018-08-20 07:10] LABS: ALB/GLOB RATIO 1.2 (1.1-1.8); ALBUMIN 3.4 g/dL (3.0-4.8); ALT/SGPT 152 U/L (7-56); AST/SGOT 55 U/L (14-36); BLOOD UREA NITROGEN 28 mg/dL (7-21); CALCIUM 8.9 mg/dL (8.4-10.5); GFR NON-AFRICAN AMERICAN > 60
[2018-08-20] MEDS: Budesonide 0.5 mg/2 ml Inhal Susp UD IH SCH ×2 (07:14→20:12)
[2018-08-20] MEDS: Insulin Reg-LOW-Coverage SC SCH ×4 (07:30→22:13)
--- NOTE | 2018-08-20 08:15 | CON ---
DATE: 08/16/2018 CONSULTATION NOTE HISTORY OF PRESENT ILLNESS: The patient is a 72-year-old female with multiple medical problems including AFib, on Coumadin, cardiomyopathy, coronary artery disease, COPD. The patient was admitted into ICU due to difficulty to breathe. Psychiatric consult was called for evaluation of anxiety. This telegraphic typewriter installer is very familiar with this patient from the previous admissions to the medical side as a valuation consultant for consultation services. The patient was seen and examined today. The patient is intubated, was not able to participate in interview in any meaningful way, discussed with medical practice manager. As per previous history, the patient was on Xanax, on Klonopin, Zoloft, those medications and medical team raised a concern about suppression of breathing center. At this point, this telegraphic typewriter installer could suggest Ativan IV push 0.5 mg three times a day as needed and the rest of the medications could be on hold. VITAL SIGNS: Reviewed. Temperature 98, pulse is 98. MEDICATIONS: Medications were reviewed. The patient is on aspirin, DuoNeb, Lipitor, Rocephin, digoxin, Cardizem, doxycycline, Pepcid, Lasix, Neurontin,Solu-Medrol, Lopressor, Bactroban, Verapamil, and Coumadin. LABORATORY DATA: Labs were reviewed. White blood cells 11.1 today. Chemistry reviewed. Troponin 0.14 which is elevated. Toxicology was positive for benzodiazepines. MENTAL STATUS EXAM: Mental status examination was not able to be performed because the patient was intubated and not able to participate in any meaningful way of conversation. IMPRESSION: Rule out anxiety due to general medical condition. PLAN: Ativan could be given 0.5 mg three times a day IV push as needed. Please reconsult as needed. Discussed with the medical practice manager. Should you have any questions, give me a call back. Shaila Mattson MD MTDD
[2018-08-20] MEDS: MethylPREDNISolone 40 mg Vial IVP SCH ×2 (10:00→21:29)
[2018-08-20] MEDS: Cefepime 1gm in NS 100ml 1 GM/100 ML BAG IVPB SCH ×2 (10:00→21:30)
[2018-08-20] MEDS ORDERED: diltiaZEM 120 mg/24 Hours CD Cap PO SCH (10:00)
[2018-08-20] MEDS: Vancomycin 1gm in NS 250ml 1 GM/250 ML BAG IVPB SCH (10:05)
[2018-08-20] MEDS: Mupirocin 2% Ointment 15 GM TUBE NS SCH ×2 (10:38→17:10)
--- NOTE | 2018-08-20 11:53 | CP.PCM.CON ---
<Moreno Mccormick - Last Filed: 08/20/18 11:59> History of Present Illness - History of Present Illness History of Present Illness: PGY6 GI Fellow Consult Note Patient is a 72yo female with PMHx significant for paroxysmal atrial fibrillation on coumadin, CAD, COPD and tobacco abuse who presented to the ED with shortness of breath. Since admission, the patient has been diagnosed with recurrent atrial fibrillation with RVR requiring caredizem gtt. While on the telemetry floor she suffered oxygen desaturations and was moved to the CCU for ongoing care. Our service has been consulted for enlarged CBD which was noted on U/S for elevated LFTs (hepatocellular pattern). She currently denies any abdominal pain and does not endorse any weight loss, change in bowel habits, nausea, vomiting or change in appetite. She has ongoing shortness of breath. 12 system ROS performed and negative except where stated PMHx: See HPI PSHx: Patient denies surgical history FHx: Denies any pertinent family history Social: +tobacco use, denies EtOH or illicit drug use Endo: No prior endoscopic evaluations Past Patient History - Infectious Disease Hx of Infectious Diseases: None - Past Medical History & Family History Past Medical History?: Yes - Past Social History Smoking Status: Current Some Days Smoker - CARDIAC Hx Cardiac Disorders: Yes (A fib, cardiac cath x 1 with cardiac stent.) Hx Congestive Heart Failure: Yes (diastolic) Hx Hypertension: Yes - PULMONARY Hx Respiratory Disorders: Yes - NEUROLOGICAL Hx Neurological Disorder: Yes (headaches) Hx Dizziness: Yes - HEENT Hx HEENT Problems: No - RENAL Hx Chronic Kidney Disease: No - ENDOCRINE/METABOLIC Hx Endocrine Disorders: No - HEMATOLOGICAL/ONCOLOGICAL Hx Blood Disorders: No - INTEGUMENTARY Hx Dermatological Problems: Yes (MULTIPLE BRUISING FROM FALLS) - MUSCULOSKELETAL/RHEUMATOLOGICAL Hx Musculoskeletal Disorders: Yes Hx Falls: Yes Hx Unsteady Gait: Yes - GASTROINTESTINAL Hx Gastrointestinal Disorders: Yes (reflux) - GENITOURINARY/GYNECOLOGICAL Hx Genitourinary Disorders: No - PSYCHIATRIC Hx Psychophysiologic Disorder: Yes Hx Anxiety: Yes Hx Depression: Yes Hx Substance Use: No - SURGICAL HISTORY Hx Cardiac Catheterization: Yes (X1) Hx Coronary Stent: Yes (unknown) Other/Comment: robotic left lower wedge resection and lymphaderectomy 06/2015, polypectomy, left lung nodule removed 2 yrs ago at [facility] [place] benign - ANESTHESIA Hx Anesthesia: Yes Hx Anesthesia Reactions: No Hx Malignant Hyperthermia: No Meds Allergies/Adverse Reactions: Allergies Allergy/AdvReac Type Severity Reaction Status Date / Time azithromycin [From Zithromax] AdvReac Intermediate RASH Verified 08/03/18 16:14 lorazepam AdvReac Verified 08/15/18 07:56 - Medications Medications: Current Medications Albuterol/Ipratropium (Duoneb 3 Mg/0.5 Mg (3 Ml) Ud) 3 ml IH Q2H PRN PRN Reason: Shortness of Breath Albuterol/Ipratropium (Duoneb 3 Mg/0.5 Mg (3 Ml) Ud) 3 ml IH [id number] [facility] Last Admin: 08/20/18 07:14 Dose: 3 ml Alprazolam (Xanax) 1 mg PO TID [facility]; Protocol Last Admin: 08/20/18 10:05 Dose: 1 mg Aspirin (Aspirin Chewable) 81 mg PO DAILY [facility] Last Admin: 08/20/18 10:00 Dose: 81 mg Atenolol (Tenormin) 25 mg PO BID [facility] Last Admin: 08/20/18 10:01 Dose: 25 mg Atorvastatin Calcium (Lipitor) 10 mg PO HS [facility] Last Admin: 08/16/18 21:31 Dose: 10 mg Budesonide (Pulmicort Respules) 0.5 mg IH [id number] [facility] Last Admin: 08/20/18 07:14 Dose: 0.5 mg Dextrose (Dextrose 50% Inj) 0 ml IV STAT PRN; Protocol PRN Reason: Hypoglycemia Protocol Digoxin (Lanoxin) 0.25 mg PO 1400 [facility] Last Admin: 08/19/18 14:42 Dose: 0.25 mg Famotidine (Pepcid) 20 mg PO DAILY [facility] Last Admin: 08/20/18 10:05 Dose: 20 mg Furosemide (Lasix) 40 mg PO DAILY [facility] Furosemide (Lasix) 40 mg IVP DAILY [facility] Last Admin: 08/20/18 09:53 Dose: 40 mg Gabapentin (Neurontin) 400 mg PO QID [facility]; Protocol Last Admin: 08/20/18 10:00 Dose: 400 mg Dextrose (Dextrose 5% In Water 1000 Ml) 1,000 mls @ 0 mls/hr IV .Q0M PRN; Protocol PRN Reason: Hypoglycemia Protocol Cefepime HCl (Maxipime 1gm) 1 gm in 100 mls @ 100 mls/hr IVPB Q12 [facility]; Protocol Last Admin: 08/20/18 10:00 Dose: 100 mls/hr Vancomycin HCl (Vancomycin 1gm) 1 gm in 250 mls @ 167 mls/hr IVPB DAILY [facility]; Protocol Last Admin: 08/20/18 10:05 Dose: 167 mls/hr Insulin Human Regular (Humulin R Low) 0 units SC ACHS [facility]; Protocol Last Admin: 08/20/18 11:30 Dose: Not Given Levalbuterol HCl (Xopenex) 1.25 mg IH [id number] PRN PRN Reason: Shortness of Breath Last Admin: 08/17/18 15:19 Dose: 1.25 mg Methylprednisolone (Solu-Medrol) 20 mg IVP Q12H [facility] Last Admin: 08/20/18 10:00 Dose: 20 mg Mupirocin (Bactroban Ointment) 0 gm NS BID [facility] Stop: 08/21/18 10:01 Last Admin: 08/20/18 10:38 Dose: 1 oin Nicotine (Nicoderm Cq) 1 patch TD DAILY [facility] Last Admin: 08/20/18 09:53 Dose: 1 patch Quetiapine Fumarate (Seroquel) 25 mg PO BID [facility]; Protocol Last Admin: 08/20/18 10:00 Dose: 25 mg Sertraline HCl (Zoloft) 100 mg PO BID [facility] Last Admin: 08/19/18 18:23 Dose: 100 mg Verapamil HCl (Verapamil Inj) 2.5 mg IVP Q6H PRN PRN Reason: Heart rate Last Admin: 08/17/18 09:45 Dose: 2.5 mg Verapamil HCl (Calan Tab) 40 mg PO TID [facility] Last Admin: 08/20/18 10:01 Dose: 40 mg Warfarin Sodium (Coumadin) 5 mg PO 1800 [facility]; Protocol Last Admin: 08/18/18 17:07 Dose: 5 mg Physical Exam - Constitutional Appears: Non-toxic, No Acute Distress - Eye Exam Eye Exam: EOMI, PERRL - ENT Exam ENT Exam: Mucous Membranes Moist - Respiratory Exam Respiratory Exam: Rales. absent: Clear to Auscultation Bilateral, Rhonchi, Wheezes - Cardiovascular Exam Cardiovascular Exam: Irregular Rhythm, +S1, +S2 Additional comments: regular rate - GI/Abdominal Exam GI & Abdominal Exam: Normal Bowel Sounds, Soft. absent: Distended, Firm, Guarding, Organomegaly, Rigid, Tenderness - Extremities Exam Extremities exam: Positive for: normal inspection. Negative for: pedal edema - Neurological Exam Neurological exam: Alert, Oriented x3 - Psychiatric Exam Psychiatric exam: Normal Affect, Normal Mood - Skin Skin Exam: Dry, Warm Results - Vital Signs Recent Vital Signs: Last Vital Signs Temp 97.9 F 08/20/18 11:45 Pulse 89 08/20/18 11:30 Resp 34 H 08/20/18 11:00 BP 144/76 08/20/18 11:00 Pulse Ox 90 L 08/20/18 11:30 - Labs Result Diagrams: 08/20/18 05:20 08/20/18 05:20 Labs: Laboratory Results - last 24 hr 08/20/18 08/20/18 08/20/18 05:20 05:20 05:20 WBC 13.8 H RBC 4.82 Hgb 13.5 Hct 43.0 MCV 89.2 MCH 28.0 MCHC 31.4 RDW 14.1 Plt Count 228 MPV 9.5 Neut % (Auto) 85.3 H Lymph % (Auto) 7.0 L [place] % (Auto) 7.5 H Eos % (Auto) 0.1 L Baso % (Auto) 0.1 Lymph # (Auto) 1.0 L [place] # (Auto) 1.0 H Eos # (Auto) 0.0 Baso # (Auto) 0.01 Absolute Neuts (auto) 11.75 H PT 39.8 H INR 3.52 H* Sodium 140 Potassium 4.1 Chloride 100 Carbon Dioxide 34 H Anion Gap 10 BUN 28 H Creatinine 0.5 L Est GFR ( Amer) > 60 Est GFR (Non-Af Amer) > 60 Random Glucose 109 Calcium 8.9 Phosphorus 3.9 Magnesium 1.9 Total Bilirubin 0.5 AST 55 H D ALT 152 H Alkaline Phosphatase 56 Total Protein 6.2 Albumin 3.4 Globulin 2.8 Albumin/Globulin Ratio 1.2 Digoxin 08/20/18 05:20 WBC RBC Hgb Hct MCV MCH MCHC RDW Plt Count MPV Neut % (Auto) Lymph % (Auto) [place] % (Auto) Eos % (Auto) Baso % (Auto) Lymph # (Auto) [place] # (Auto) Eos # (Auto) Baso # (Auto) Absolute Neuts (auto) PT INR Sodium Potassium Chloride Carbon Dioxide Anion Gap BUN Creatinine Est GFR ( Amer) Est GFR (Non-Af Amer) Random Glucose Calcium Phosphorus Magnesium Total Bilirubin AST ALT Alkaline Phosphatase Total Protein Albumin Globulin Albumin/Globulin Ratio Digoxin 1.5 Assessment & Plan - Assessment and Plan (Free Text) Assessment: Patient is a 72yo female with PMHx significant for paroxysmal atrial fibrillation on coumadin, CAD, COPD and tobacco abuse who presented to the ED with shortness of breath -Atrial fibrillation with RVR -COPD -CBD 10mm on U/S -Elevated LFTs Plan: -Elevated LFTs in hepatocellular pattern -Viral hepatitis serologies negative -Check autoimmune markers - HOSSEIN, AMA, SMA -Transient elevation is noted to have followed episodes of RVR -U/S reviewed, CBD of 10mm warrants further imaging - recommend MRCP once patient is more stable from a cardiopulmonary standpoint - Date & Time Date: 08/20/18 Time: 10:30 <Jose D Doty V - Last Filed: 08/20/18 13:20> Meds - Medications Medications: Current Medications Albuterol/Ipratropium (Duoneb 3 Mg/0.5 Mg (3 Ml) Ud) 3 ml IH Q2H PRN PRN Reason: Shortness of Breath Albuterol/Ipratropium (Duoneb 3 Mg/0.5 Mg (3 Ml) Ud) 3 ml IH [id number] [facility] Last Admin: 08/20/18 11:58 Dose: 3 ml Alprazolam (Xanax) 1 mg PO TID [facility]; Protocol Last Admin: 08/20/18 10:05 Dose: 1 mg Aspirin (Aspirin Chewable) 81 mg PO DAILY [facility] Last Admin: 08/20/18 10:00 Dose: 81 mg Atenolol (Tenormin) 25 mg PO BID [facility] Last Admin: 08/20/18 10:01 Dose: 25 mg Atorvastatin Calcium (Lipitor) 10 mg PO HS [facility] Last Admin: 08/16/18 21:31 Dose: 10 mg Budesonide (Pulmicort Respules) 0.5 mg IH [id number] [facility] Last Admin: 08/20/18 07:14 Dose: 0.5 mg Dextrose (Dextrose 50% Inj) 0 ml IV STAT PRN; Protocol PRN Reason: Hypoglycemia Protocol Digoxin (Lanoxin) 0.25 mg PO 1400 [facility] Last Admin: 08/19/18 14:42 Dose: 0.25 mg Famotidine (Pepcid) 20 mg PO DAILY [facility] Last Admin: 08/20/18 10:05 Dose: 20 mg Furosemide (Lasix) 40 mg PO DAILY [facility] Furosemide (Lasix) 40 mg IVP DAILY [facility] Last Admin: 08/20/18 09:53 Dose: 40 mg Gabapentin (Neurontin) 400 mg PO QID [facility]; Protocol Last Admin: 08/20/18 10:00 Dose: 400 mg Dextrose (Dextrose 5% In Water 1000 Ml) 1,000 mls @ 0 mls/hr IV .Q0M PRN; Protocol PRN Reason: Hypoglycemia Protocol Cefepime HCl (Maxipime 1gm) 1 gm in 100 mls @ 100 mls/hr IVPB Q12 [facility]; Protocol Last Admin: 08/20/18 10:00 Dose: 100 mls/hr Vancomycin HCl (Vancomycin 1gm) 1 gm in 250 mls @ 167 mls/hr IVPB DAILY [facility]; Protocol Last Admin: 08/20/18 10:05 Dose: 167 mls/hr Insulin Human Regular (Humulin R Low) 0 units SC ACHS [facility]; Protocol Last Admin: 08/20/18 11:30 Dose: Not Given Levalbuterol HCl (Xopenex) 1.25 mg IH [id number] PRN PRN Reason: Shortness of Breath Last Admin: 08/17/18 15:19 Dose: 1.25 mg Methylprednisolone (Solu-Medrol) 20 mg IVP Q12H [facility] Last Admin: 08/20/18 10:00 Dose: 20 mg Mupirocin (Bactroban Ointment) 0 gm NS BID [facility] Stop: 08/21/18 10:01 Last Admin: 08/20/18 10:38 Dose: 1 oin Nicotine (Nicoderm Cq) 1 patch TD DAILY [facility] Last Admin: 08/20/18 09:53 Dose: 1 patch Quetiapine Fumarate (Seroquel) 25 mg PO BID [facility]; Protocol Last Admin: 08/20/18 10:00 Dose: 25 mg Sertraline HCl (Zoloft) 100 mg PO BID [facility] Last Admin: 08/19/18 18:23 Dose: 100 mg Verapamil HCl (Verapamil Inj) 2.5 mg IVP Q6H PRN PRN Reason: Heart rate Last Admin: 08/17/18 09:45 Dose: 2.5 mg Verapamil HCl (Calan Tab) 40 mg PO TID [facility] Last Admin: 08/20/18 10:01 Dose: 40 mg Warfarin Sodium (Coumadin) 5 mg PO 1800 [facility]; Protocol Last Admin: 08/18/18 17:07 Dose: 5 mg Results - Vital Signs Recent Vital Signs: Last Vital Signs Temp 97.9 F 08/20/18 11:45 Pulse 89 08/20/18 11:30 Resp 34 H 08/20/18 11:00 BP 144/76 08/20/18 11:00 Pulse Ox 90 L 08/20/18 11:30 - Labs Result Diagrams: 08/20/18 05:20 08/20/18 05:20 Labs: Laboratory Results - last 24 hr 08/19/18 08/20/18 08/20/18 11:14 05:20 05:20 WBC 13.8 H RBC 4.82 Hgb 13.5 Hct 43.0 MCV 89.2 MCH 28.0 MCHC 31.4 RDW 14.1 Plt Count 228 MPV 9.5 Neut % (Auto) 85.3 H Lymph % (Auto) 7.0 L [place] % (Auto) 7.5 H Eos % (Auto) 0.1 L Baso % (Auto) 0.1 Lymph # (Auto) 1.0 L [place] # (Auto) 1.0 H Eos # (Auto) 0.0 Baso # (Auto) 0.01 Absolute Neuts (auto) 11.75 H PT 39.8 H INR 3.52 H* Sodium Potassium Chloride Carbon Dioxide Anion Gap BUN Creatinine Est GFR ( Amer) Est GFR (Non-Af Amer) POC Glucose (mg/dL) 148 H Random Glucose Calcium Phosphorus Magnesium Total Bilirubin AST ALT Alkaline Phosphatase Total Protein Albumin Globulin Albumin/Globulin Ratio Digoxin 08/20/18 08/20/18 08/20/18 05:20 05:20 07:12 WBC RBC Hgb Hct MCV MCH MCHC RDW Plt Count MPV Neut % (Auto) Lymph % (Auto) [place] % (Auto) Eos % (Auto) Baso % (Auto) Lymph # (Auto) [place] # (Auto) Eos # (Auto) Baso # (Auto) Absolute Neuts (auto) PT INR Sodium 140 Potassium 4.1 Chloride 100 Carbon Dioxide 34 H Anion Gap 10 BUN 28 H Creatinine 0.5 L Est GFR ( Amer) > 60 Est GFR (Non-Af Amer) > 60 POC Glucose (mg/dL) 105 Random Glucose 109 Calcium 8.9 Phosphorus 3.9 Magnesium 1.9 Total Bilirubin 0.5 AST 55 H D ALT 152 H Alkaline Phosphatase 56 Total Protein 6.2 Albumin 3.4 Globulin 2.8 Albumin/Globulin Ratio 1.2 Digoxin 1.5 08/20/18 11:10 WBC RBC Hgb Hct MCV MCH MCHC RDW Plt Count MPV Neut % (Auto) Lymph % (Auto) [place] % (Auto) Eos % (Auto) Baso % (Auto) Lymph # (Auto) [place] # (Auto) Eos # (Auto) Baso # (Auto) Absolute Neuts (auto) PT INR Sodium Potassium Chloride Carbon Dioxide Anion Gap BUN Creatinine Est GFR ( Amer) Est GFR (Non-Af Amer) POC Glucose (mg/dL) 139 H Random Glucose Calcium Phosphorus Magnesium Total Bilirubin AST ALT Alkaline Phosphatase Total Protein Albumin Globulin Albumin/Globulin Ratio Digoxin Attending/Attestation - Attestation I have personally seen and examined this patient.: Yes I have fully participated in the care of the patient.: Yes I have reviewed all pertinent clinical information: Yes Notes (Text): This patient was seen and evaluated along with the GI fellow earlier in ICU. Discussed with ICU staff. Sonogram was reviewed. Patient denies any abdominal pain. On exam abdomen soft nontender. Labs reviewed alkaline phosphatase normal. Patient would benefit from MRCP with MRI of the pancreas to further evaluate. However we would wait for the patient's respiratory status to improve. To scheduling for MRCP/MRI of the pancreas. Thank you Dr. Feliz for allowing us to participate in the care of the patient. We will continue to closely follow-up her care and suggest further recommendations based on the clinical course 08/20/18 13:18
--- NOTE | 2018-08-20 12:59 | CP.PCM.PCO ---
Physician Communication Note - Physician Communication Note Physician Communication Note: pt seen&examined, GI consult for 10mmCBD noted, will follow
--- NOTE | 2018-08-20 14:20 | CP.PCM.PN ---
<Robert Miller - Last Filed: 08/20/18 14:17> Subjective - Date & Time of Evaluation Date of Evaluation: 08/20/18 Time of Evaluation: 14:17 - Subjective Subjective: Robert Miller, PGY-1, Internal Medicine Progress Note for Dr. Sparrow Patient seen and evaluated at bedside. Patient had no acute overnight events. Patient was agitated this afternoon asking to sign out AMA, however, patient's competency is unknown as patient recently signed out AMA after a similar course. Patient denies any complaints at this time. Patient has unsteady gait at this time. 12-point ROS was unremarkable except for what was mentioned above. Objective - Vital Signs/Intake and Output Vital Signs (last 24 hours): Temp Pulse Resp BP Pulse Ox 97.9 F 89 34 H 144/76 90 L 08/20/18 11:45 08/20/18 11:30 08/20/18 11:00 08/20/18 11:00 08/20/18 11:30 Intake and Output: 08/20/18 08/20/18 06:59 18:59 Intake Total 660 Output Total 600 Balance 60 - Medications Medications: Current Medications Albuterol/Ipratropium (Duoneb 3 Mg/0.5 Mg (3 Ml) Ud) 3 ml IH Q2H PRN PRN Reason: Shortness of Breath Albuterol/Ipratropium (Duoneb 3 Mg/0.5 Mg (3 Ml) Ud) 3 ml IH [id number] [facility] Last Admin: 08/20/18 11:58 Dose: 3 ml Alprazolam (Xanax) 1 mg PO TID [facility]; Protocol Last Admin: 08/20/18 14:02 Dose: 1 mg Aspirin (Aspirin Chewable) 81 mg PO DAILY [facility] Last Admin: 08/20/18 10:00 Dose: 81 mg Atenolol (Tenormin) 25 mg PO BID [facility] Last Admin: 08/20/18 10:01 Dose: 25 mg Atorvastatin Calcium (Lipitor) 10 mg PO HS [facility] Last Admin: 08/16/18 21:31 Dose: 10 mg Budesonide (Pulmicort Respules) 0.5 mg IH [id number] [facility] Last Admin: 08/20/18 07:14 Dose: 0.5 mg Dextrose (Dextrose 50% Inj) 0 ml IV STAT PRN; Protocol PRN Reason: Hypoglycemia Protocol Digoxin (Lanoxin) 0.25 mg PO 1400 [facility] Last Admin: 08/19/18 14:42 Dose: 0.25 mg Famotidine (Pepcid) 20 mg PO DAILY [facility] Last Admin: 08/20/18 10:05 Dose: 20 mg Furosemide (Lasix) 40 mg PO DAILY [facility] Furosemide (Lasix) 40 mg IVP DAILY [facility] Last Admin: 08/20/18 09:53 Dose: 40 mg Gabapentin (Neurontin) 400 mg PO QID [facility]; Protocol Last Admin: 08/20/18 14:02 Dose: 400 mg Dextrose (Dextrose 5% In Water 1000 Ml) 1,000 mls @ 0 mls/hr IV .Q0M PRN; Protocol PRN Reason: Hypoglycemia Protocol Cefepime HCl (Maxipime 1gm) 1 gm in 100 mls @ 100 mls/hr IVPB Q12 [facility]; Protocol Last Admin: 08/20/18 10:00 Dose: 100 mls/hr Vancomycin HCl (Vancomycin 1gm) 1 gm in 250 mls @ 167 mls/hr IVPB DAILY [facility]; Protocol Last Admin: 08/20/18 10:05 Dose: 167 mls/hr Insulin Human Regular (Humulin R Low) 0 units SC ACHS [facility]; Protocol Last Admin: 08/20/18 11:30 Dose: Not Given Levalbuterol HCl (Xopenex) 1.25 mg IH [id number] PRN PRN Reason: Shortness of Breath Last Admin: 08/17/18 15:19 Dose: 1.25 mg Methylprednisolone (Solu-Medrol) 20 mg IVP Q12H [facility] Last Admin: 08/20/18 10:00 Dose: 20 mg Mupirocin (Bactroban Ointment) 0 gm NS BID [facility] Stop: 08/21/18 10:01 Last Admin: 08/20/18 10:38 Dose: 1 oin Nicotine (Nicoderm Cq) 1 patch TD DAILY [facility] Last Admin: 08/20/18 09:53 Dose: 1 patch Quetiapine Fumarate (Seroquel) 25 mg PO BID [facility]; Protocol Last Admin: 08/20/18 10:00 Dose: 25 mg Sertraline HCl (Zoloft) 100 mg PO BID [facility] Last Admin: 08/19/18 18:23 Dose: 100 mg Verapamil HCl (Verapamil Inj) 2.5 mg IVP Q6H PRN PRN Reason: Heart rate Last Admin: 08/17/18 09:45 Dose: 2.5 mg Verapamil HCl (Calan Tab) 40 mg PO TID [facility] Last Admin: 08/20/18 10:01 Dose: 40 mg Warfarin Sodium (Coumadin) 5 mg PO 1800 [facility]; Protocol Last Admin: 08/18/18 17:07 Dose: 5 mg - Labs Labs: 08/20/18 05:20 08/20/18 05:20 PT 39.8 SECONDS (9.4-12.5) H 08/20/18 05:20 INR 3.52 H* 08/20/18 05:20 APTT 43.0 Seconds (26.9-38.3) H 08/14/18 06:55 - Constitutional Appears: Well, Non-toxic, No Acute Distress - Head Exam Head Exam: ATRAUMATIC, NORMAL INSPECTION, NORMOCEPHALIC - Eye Exam Eye Exam: EOMI, PERRL - ENT Exam ENT Exam: Mucous Membranes Moist - Respiratory Exam Respiratory Exam: Wheezes (mild), NORMAL BREATHING PATTERN. absent: Rales, Rhonchi - Cardiovascular Exam Cardiovascular Exam: Irregular Rhythm, +S1, +S2. absent: Clicks, Gallop, Rubs - GI/Abdominal Exam GI & Abdominal Exam: Soft, Normal Bowel Sounds. absent: Distended, Firm, Guarding, Tenderness - Extremities Exam Extremities Exam: Full ROM, Normal Capillary Refill, Normal Inspection - Neurological Exam Neurological Exam: Alert, Awake, CN II-XII Intact, Oriented x3 - Psychiatric Exam Psychiatric exam: Normal Affect, Normal Mood - Skin Skin Exam: Dry, Intact, Normal Color Assessment and Plan - Assessment and Plan (Free Text) Assessment: 72 year old female with past medical history of paroxysmal atrial fibrillation, non-ischemic cardiomyopathy, CAD, COPD not on home O2 presented with worsening shortness of breath for everal days. Patient was found to be in Atrial fibrillation with RVR and started on cardizem drip, which helped control rate. Cardizem drip has now been discontinued. INR was subtherapeutic so lovenox was added to bridge along with warfarin. Patient was in respiratory distress secondary to ativan vs. COPD and was intubated. Patient is now extubated. INR is now supratherapeutic. Plan: Hypercapneic repsiratory failure likely 2/2 to COPD -Patient has now been extubated -ABG from 08/17 shows CO2 within normal limits -Reduced solumedrol to 20 mg Q12 -Continue with duonebs Q4 and Q2PRN -Continue with xopenex PRN -Continue with pulmicort -Continue nicotine patch -Continue with vancomycin and cefepime empiric coverage started on 08/18. Atrial fibrillation -INR: 3.52 -Continue with verapamil 40 mg TID -Continue with PRN verapamil 2.5 mg IV Q6 -Continue atenolol 25 mg BID -Continue digoxin 0.25 mg daily -Stopped therapeutic lovenox -Stopped warfarin 5 mg until patient's INR is under 2.50. Will restart warfarin at a lower dose at that time CAD -EKG 08/17: atrial fibrillation with HR: 105 -Tropx4: <0.01, 0.15, 0.12, 0.14 -Continue aspirin 81, atenolol 25 mg BID Diastolic CHF -Continue with atenolol 25 BID, digoxin 0.25 daily, lasix 40 mg IV daily Delirium-resolved -Continue with xanax 1 mg TID -Continue seroquel 25 mg BID and sertraline 100 BID -Patient is currently agitated regarding wanting to return home and as a result will consult psychiatry, Dr. Mattson, for further evaluation Diabetes mellitus type II -Continue with low sliding scale insulin -Continue with neurontin 400 QID -Accuchecks ACHS Hypertension -Continue with atenolol 25 mg BID Transaminitis -AST, ALT improved -Abdominal ultrasound: prominent CBD without intrahepatic ductal dilation -Will further evaluate with HOSSEIN, anti-mitochondrial Ab, and anti-smooth muscle Ab -Hold atorvastatin -As per GI, would like to evaluate with MRI/MRCP after respiratory status has improved -Consulted GI, Dr. Doty, for further evaluation GI prophylaxis: pepcid 20 mg daily DVT prophylaxis: held due to supratherapeutic INR Patient plan discussed with Dr. Sparrow <Mak Sparrow - Last Filed: 08/24/18 14:03> Objective - Vital Signs/Intake and Output Vital Signs (last 24 hours): Temp Pulse Resp BP Pulse Ox 98.1 F 89 18 127/73 93 L 08/24/18 07:00 08/24/18 07:00 08/24/18 07:00 08/24/18 09:08 08/24/18 11:50 - Medications Medications: Current Medications Albuterol/Ipratropium (Duoneb 3 Mg/0.5 Mg (3 Ml) Ud) 3 ml IH Q2H PRN PRN Reason: Shortness of Breath Last Admin: 08/22/18 09:26 Dose: 3 ml Albuterol/Ipratropium (Duoneb 3 Mg/0.5 Mg (3 Ml) Ud) 3 ml IH [id number] [facility] Last Admin: 08/24/18 11:21 Dose: 3 ml Alprazolam (Xanax) 1 mg PO TID [facility]; Protocol Last Admin: 08/24/18 09:09 Dose: 1 mg Aspirin (Aspirin Chewable) 81 mg PO DAILY [facility] Last Admin: 08/24/18 09:08 Dose: 81 mg Atenolol (Tenormin) 25 mg PO BID [facility] Last Admin: 08/24/18 09:07 Dose: 25 mg Atorvastatin Calcium (Lipitor) 10 mg PO HS [facility] Last Admin: 08/16/18 21:31 Dose: 10 mg Budesonide (Pulmicort Respules) 0.5 mg IH [id number] [facility] Last Admin: 08/24/18 07:15 Dose: 0.5 mg Dextrose (Dextrose 50% Inj) 0 ml IV STAT PRN; Protocol PRN Reason: Hypoglycemia Protocol Digoxin (Lanoxin) 0.25 mg PO 1400 [facility] Last Admin: 08/23/18 14:23 Dose: 0.25 mg Famotidine (Pepcid) 20 mg PO DAILY [facility] Last Admin: 08/24/18 09:07 Dose: 20 mg Furosemide (Lasix) 40 mg PO DAILY [facility] Last Admin: 08/24/18 09:07 Dose: 40 mg Gabapentin (Neurontin) 400 mg PO QID [facility]; Protocol Last Admin: 08/24/18 09:08 Dose: 400 mg Dextrose (Dextrose 5% In Water 1000 Ml) 1,000 mls @ 0 mls/hr IV .Q0M PRN; Protocol PRN Reason: Hypoglycemia Protocol Insulin Human Regular (Humulin R Low) 0 units SC ACHS [facility]; Protocol Last Admin: 08/24/18 11:22 Dose: Not Given Levalbuterol HCl (Xopenex) 1.25 mg IH [id number] PRN PRN Reason: Shortness of Breath Last Admin: 08/22/18 12:49 Dose: 1.25 mg Nicotine (Nicoderm Cq) 1 patch TD DAILY [facility] Last Admin: 08/24/18 09:10 Dose: 1 patch Prednisone (Prednisone Tab) 15 mg PO DAILY [facility] Last Admin: 08/24/18 11:24 Dose: Not Given Quetiapine Fumarate (Seroquel) 25 mg PO BID [facility]; Protocol Last Admin: 08/24/18 09:09 Dose: 25 mg Sertraline HCl (Zoloft) 100 mg PO DAILY [facility] Last Admin: 08/24/18 09:08 Dose: 100 mg Verapamil HCl (Verapamil Inj) 2.5 mg IVP Q6H PRN PRN Reason: Heart rate Last Admin: 08/17/18 09:45 Dose: 2.5 mg Verapamil HCl (Calan Tab) 40 mg PO TID [facility] Last Admin: 08/24/18 09:08 Dose: 40 mg Warfarin Sodium (Coumadin) 3 mg PO 1800 [facility]; Protocol Last Admin: 08/23/18 17:03 Dose: 3 mg - Labs Labs: 08/24/18 07:00 08/24/18 07:00 PT 23.7 SECONDS (9.4-12.5) H 08/24/18 07:00 INR 2.10 08/24/18 07:00 APTT 43.0 Seconds (26.9-38.3) H 08/14/18 06:55 Attending/Attestation - Attestation I have personally seen and examined this patient.: Yes I have fully participated in the care of the patient.: Yes I have reviewed all pertinent clinical information, including history, physical exam and plan: Yes Notes (Text): 08/24/18 14:03 Medical record note made by the resident after discussion with my direction and input after the patient was personally seen and examined by me. I have reviewed the chart and agree that the record accurately reflects by personal performance of the history, physical exam, data review, and medical decision-making, in the course for the patient. I have also personally directed the plan of care.
--- NOTE | 2018-08-20 15:02 | PN ---
DATE: 08/20/2018 REASON FOR CONSULTATION: Followup atrial fibrillation with rapid rate, status post [employer], status post intubated, now successfully extubated. Currently awake, on non-invasive ventilator, hemodynamically stable. PHYSICAL EXAMINATION: VITAL SIGNS: Temperature afebrile, heart rate 88, blood pressure 153/84. HEENT: PERRLA. Extraocular muscles intact. NECK: Supple. No carotid bruits. No thyromegaly. CHEST: Clear to auscultation. HEART: S1, S2. Regular. ABDOMEN: Soft. EXTREMITIES: Clubbing, cyanosis negative. LABORATORY DATA: Blood workup: WBC 13.8, hemoglobin 13.5, hematocrit 43, platelet count 228. Chemistry shows sodium 140, potassium 4, chloride 100, carbon dioxide 34, anion gap of 10, BUN 28, and creatinine 0.5. IMPRESSION: A 72-year-old female with past medical history significant for non-obstructive coronary artery disease, status post cardiac catheterization twice, admitted with acute exacerbation of chronic obstructive pulmonary disease, history of paroxysmal atrial fibrillation, now persistent, was on the floor, had rapid response, intubated exacerbation of chronic obstructive pulmonary disease. Recent MUGA scan shows preserved left ventricular function, also echo shows improved left ventricular function. The patient is very anxious and gets stressful and gets started wheezing. Now, the patient has calmed down and feels okay. RECOMMENDATION: Continue verapamil. Continue atenolol twice. INR is today 3.53. Recommendation, continue to hold anticoagulation until the INR gets below 2.5. Continue digoxin. Continue gentle diuretics. Continue treatment for COPD. Continue atenolol and continue verapamil. Discontinue Cardizem and continue verapamil 40 mg p.o. t.i.d. as started yesterday. We will follow with you. The patient is already on verapamil as mentioned. Earlier, it was so we will continue verapamil 40 and we will discontinue Cardizem drip and transfer to telemetry. Mak Mendez MD
[2018-08-20] MEDS: Digoxin 250 mcg (0.25 mg) Tab PO SCH (15:55)
[2018-08-21] MEDS: Albuterol-Ipratrop 3 mg / 0.5 (3 ml) UD IH SCH ×5 (04:00→19:11)
[2018-08-21 06:00] LABS: HEMOGLOBIN 14.7 g/dL (12.0-16.0); LYMPH # 0.8 (1.2-3.4); LYMPH % 6.6 % (22.0-35.0); MEAN CELL VOLUME 88.8 fl (80.0-105.0); MEAN CORPUSCULAR HEMOGLOBIN 29.3 pg (25.0-35.0); MONO # 0.5 (0.1-0.6); MONO % 3.9 % (1.0-6.0); RBC 5.02 10^6/uL (3.5-6.1); RED CELL DISTRIBUTION WIDTH 14.1 % (11.5-14.5); WHITE BLOOD COUNT 11.8 10^3/uL (4.5-11.0)
[2018-08-21 06:28] LABS: ALB/GLOB RATIO 1.2 (1.1-1.8); ALBUMIN 3.4 g/dL (3.0-4.8); ALT/SGPT 111 U/L (7-56); AST/SGOT 47 U/L (14-36); BLOOD UREA NITROGEN 31 mg/dL (7-21); CALCIUM 8.9 mg/dL (8.4-10.5); GFR NON-AFRICAN AMERICAN > 60
--- NOTE | 2018-08-21 07:18 | CP.PCM.PN ---
<Valentino Singh - Last Filed: 08/21/18 13:08> Subjective - Date & Time of Evaluation Date of Evaluation: 08/21/18 Time of Evaluation: 07:17 - Subjective Subjective: Progress Note for Hospitalist Service - Baljeet Singh PGY2 Patient seen and evaluated this AM. Patient noted to be agitated secondary to 1 to 1 observation and inability to sign out against AMA. Patient was informed psychiatry needed to see patient for clearance and capacity. Patient continued to be upset regarding ongoing care. She denied any chest pain, shortness of breath, gait instability abdominal pain, fever, chills. Objective - Vital Signs/Intake and Output Vital Signs (last 24 hours): Temp Pulse Resp BP Pulse Ox 97.3 F L 74 22 163/85 H 95 08/21/18 04:00 08/21/18 00:30 08/21/18 00:00 08/21/18 00:00 08/21/18 00:30 Intake and Output: 08/21/18 08/21/18 06:59 18:59 Intake Total 200 Balance 200 - Medications Medications: Current Medications Albuterol/Ipratropium (Duoneb 3 Mg/0.5 Mg (3 Ml) Ud) 3 ml IH Q2H PRN PRN Reason: Shortness of Breath Albuterol/Ipratropium (Duoneb 3 Mg/0.5 Mg (3 Ml) Ud) 3 ml IH [id number] [facility] Last Admin: 08/20/18 19:56 Dose: 3 ml Alprazolam (Xanax) 1 mg PO TID [facility]; Protocol Last Admin: 08/20/18 18:20 Dose: 1 mg Aspirin (Aspirin Chewable) 81 mg PO DAILY [facility] Last Admin: 08/20/18 10:00 Dose: 81 mg Atenolol (Tenormin) 25 mg PO BID [facility] Last Admin: 08/20/18 18:20 Dose: 25 mg Atorvastatin Calcium (Lipitor) 10 mg PO HS [facility] Last Admin: 08/16/18 21:31 Dose: 10 mg Budesonide (Pulmicort Respules) 0.5 mg IH [id number] [facility] Last Admin: 08/20/18 07:14 Dose: 0.5 mg Dextrose (Dextrose 50% Inj) 0 ml IV STAT PRN; Protocol PRN Reason: Hypoglycemia Protocol Digoxin (Lanoxin) 0.25 mg PO 1400 [facility] Last Admin: 08/20/18 15:55 Dose: 0.25 mg Famotidine (Pepcid) 20 mg PO DAILY [facility] Last Admin: 08/20/18 10:05 Dose: 20 mg Furosemide (Lasix) 40 mg PO DAILY [facility] Furosemide (Lasix) 40 mg IVP DAILY [facility] Last Admin: 08/20/18 09:53 Dose: 40 mg Gabapentin (Neurontin) 400 mg PO QID [facility]; Protocol Last Admin: 08/20/18 22:00 Dose: Not Given Dextrose (Dextrose 5% In Water 1000 Ml) 1,000 mls @ 0 mls/hr IV .Q0M PRN; Protocol PRN Reason: Hypoglycemia Protocol Cefepime HCl (Maxipime 1gm) 1 gm in 100 mls @ 100 mls/hr IVPB Q12 [facility]; Protocol Last Admin: 08/20/18 21:30 Dose: 100 mls/hr Vancomycin HCl (Vancomycin 1gm) 1 gm in 250 mls @ 167 mls/hr IVPB DAILY [facility]; Protocol Last Admin: 08/20/18 10:05 Dose: 167 mls/hr Insulin Human Regular (Humulin R Low) 0 units SC ACHS [facility]; Protocol Last Admin: 08/20/18 22:13 Dose: Not Given Levalbuterol HCl (Xopenex) 1.25 mg IH [id number] PRN PRN Reason: Shortness of Breath Last Admin: 08/17/18 15:19 Dose: 1.25 mg Methylprednisolone (Solu-Medrol) 20 mg IVP Q12H [facility] Last Admin: 08/20/18 21:29 Dose: 20 mg Mupirocin (Bactroban Ointment) 0 gm NS BID [facility] Stop: 08/21/18 10:01 Last Admin: 08/20/18 17:10 Dose: 1 oin Nicotine (Nicoderm Cq) 1 patch TD DAILY [facility] Last Admin: 08/20/18 09:53 Dose: 1 patch Quetiapine Fumarate (Seroquel) 25 mg PO BID [facility]; Protocol Last Admin: 08/20/18 18:20 Dose: 25 mg Sertraline HCl (Zoloft) 100 mg PO BID [facility] Last Admin: 08/20/18 17:11 Dose: 100 mg Verapamil HCl (Verapamil Inj) 2.5 mg IVP Q6H PRN PRN Reason: Heart rate Last Admin: 08/17/18 09:45 Dose: 2.5 mg Verapamil HCl (Calan Tab) 40 mg PO TID [facility] Last Admin: 08/20/18 18:20 Dose: 40 mg Warfarin Sodium (Coumadin) 5 mg PO 1800 [facility]; Protocol Last Admin: 08/18/18 17:07 Dose: 5 mg - Labs Labs: 08/21/18 05:05 08/21/18 05:05 PT 39.8 SECONDS (9.4-12.5) H 08/20/18 05:20 INR 3.52 H* 08/20/18 05:20 APTT 43.0 Seconds (26.9-38.3) H 08/14/18 06:55 - Constitutional Appears: No Acute Distress, Older Than Stated Age, Agitated - Head Exam Head Exam: ATRAUMATIC, NORMAL INSPECTION, NORMOCEPHALIC - Eye Exam Eye Exam: EOMI, PERRL - ENT Exam ENT Exam: Mucous Membranes Moist - Neck Exam Neck Exam: Full ROM - Respiratory Exam Respiratory Exam: Wheezes (minimal left side>right sided ), NORMAL BREATHING PATTERN - Cardiovascular Exam Cardiovascular Exam: Irregular Rhythm, +S1, +S2. absent: Clicks - GI/Abdominal Exam GI & Abdominal Exam: Soft, Normal Bowel Sounds. absent: Guarding, Rigid, Tenderness - Extremities Exam Extremities Exam: Normal Inspection. absent: Calf Tenderness, Pedal Edema - Neurological Exam Neurological Exam: Alert, Awake Neuro motor strength exam: Left Upper Extremity: 5, Right Upper Extremity: 5, Left Lower Extremity: 5 Additional comments: Patient is alert and oriented to place, name. She needs redirection regarding time. Notable pause/delay in answering questions - Psychiatric Exam Psychiatric exam: Anxious - Skin Skin Exam: Dry, Intact, Pallor Assessment and Plan - Assessment and Plan (Free Text) Assessment: 72 year old female with past medical history of paroxysmal atrial fibrillation, non-ischemic cardiomyopathy, CAD, COPD not on home O2 presented with worsening shortness of breath for everal days. Patient was found to be in Atrial fibrillation with RVR and started on cardizem drip, which helped control rate. Cardizem drip has now been discontinued. INR was subtherapeutic so lovenox was added to bridge along with warfarin. Patient was in respiratory distress secondary to ativan vs. COPD and was intubated. Patient is now extubated. INR is now supratherapeutic. Plan: COPD excerbation -ABG from 08/17 shows CO2 within normal limits -Discontinue Solumedrol IV, Start prednisone 30mg -Continue with duonebs Q4 and Q2PRN -Continue with xopenex PRN -Continue with pulmicort -Continue nicotine patch -Discontinue cefepime and vancomyocin, start augmentin Atrial fibrillation -INR: 2.31, within range -Continue with verapamil 40 mg TID -Continue with PRN verapamil 2.5 mg IV Q6H -Continue atenolol 25 mg BID -Continue digoxin 0.25 mg daily -Cardiology restarting Warfarin 2mg QHS -Patient is rate controlled at this point, transfer patent to med/surg Delerium -Secondary to ICU vs. Steroids vs. underlying psychiatric pathology -Psych consulted for evaluation and decision making ability -Follow up official report CAD -EKG 08/17: atrial fibrillation with HR: 105 -Patient showing rate control -Patient stable, transfer to med/surg -Tropx4: <0.01, 0.15, 0.12, 0.14 -Continue aspirin 81, atenolol 25 mg BID Diastolic CHF -Continue with atenolol 25 BID, digoxin 0.25 daily, lasix 40 mg IV daily Delirium-resolved -Continue with xanax 1 mg TID -Continue seroquel 25 mg BID and sertraline 100 BID -Patient is currently agitated regarding wanting to return home and as a result will consult psychiatry, Dr. Mattson, for further evaluation Diabetes mellitus type II -Continue with low sliding scale insulin -Continue with neurontin 400 QID -Accuchecks ACHS -bg appears to be controlled, Hypertension -Continue with atenolol 25 mg BID Transaminitis -AST, ALT improved -Abdominal ultrasound: prominent CBD without intrahepatic ductal dilation -HOSSEIN, anti-mitochondrial Ab, and anti-smooth muscle Ab pending -Hold atorvastatin, hold tylenol -GI consulted and following -Possible MRI/MRCP once stable from cardiopulm GI/DVT prophylaxis: - pepcid 20 mg daily - INR 2.3, restarting warfarin this evening Dispo: Patient delirium/agitation continues to be issue and needs further monitoring and stabilization before she is safe for discharge. Will follow up psychiatry evaluation. Patient case and plan discussed with attending, Dr. Sparrow <Mak Sparrow - Last Filed: 08/24/18 14:03> Objective - Vital Signs/Intake and Output Vital Signs (last 24 hours): Temp Pulse Resp BP Pulse Ox 98.1 F 89 18 127/73 93 L 08/24/18 07:00 08/24/18 07:00 08/24/18 07:00 08/24/18 09:08 08/24/18 11:50 - Medications Medications: Current Medications Albuterol/Ipratropium (Duoneb 3 Mg/0.5 Mg (3 Ml) Ud) 3 ml IH Q2H PRN PRN Reason: Shortness of Breath Last Admin: 08/22/18 09:26 Dose: 3 ml Albuterol/Ipratropium (Duoneb 3 Mg/0.5 Mg (3 Ml) Ud) 3 ml IH [id number] [facility] Last Admin: 08/24/18 11:21 Dose: 3 ml Alprazolam (Xanax) 1 mg PO TID [facility]; Protocol Last Admin: 08/24/18 09:09 Dose: 1 mg Aspirin (Aspirin Chewable) 81 mg PO DAILY [facility] Last Admin: 08/24/18 09:08 Dose: 81 mg Atenolol (Tenormin) 25 mg PO BID [facility] Last Admin: 08/24/18 09:07 Dose: 25 mg Atorvastatin Calcium (Lipitor) 10 mg PO HS [facility] Last Admin: 08/16/18 21:31 Dose: 10 mg Budesonide (Pulmicort Respules) 0.5 mg IH [id number] [facility] Last Admin: 08/24/18 07:15 Dose: 0.5 mg Dextrose (Dextrose 50% Inj) 0 ml IV STAT PRN; Protocol PRN Reason: Hypoglycemia Protocol Digoxin (Lanoxin) 0.25 mg PO 1400 [facility] Last Admin: 08/23/18 14:23 Dose: 0.25 mg Famotidine (Pepcid) 20 mg PO DAILY [facility] Last Admin: 08/24/18 09:07 Dose: 20 mg Furosemide (Lasix) 40 mg PO DAILY [facility] Last Admin: 08/24/18 09:07 Dose: 40 mg Gabapentin (Neurontin) 400 mg PO QID [facility]; Protocol Last Admin: 08/24/18 09:08 Dose: 400 mg Dextrose (Dextrose 5% In Water 1000 Ml) 1,000 mls @ 0 mls/hr IV .Q0M PRN; Protocol PRN Reason: Hypoglycemia Protocol Insulin Human Regular (Humulin R Low) 0 units SC ACHS [facility]; Protocol Last Admin: 08/24/18 11:22 Dose: Not Given Levalbuterol HCl (Xopenex) 1.25 mg IH [id number] PRN PRN Reason: Shortness of Breath Last Admin: 08/22/18 12:49 Dose: 1.25 mg Nicotine (Nicoderm Cq) 1 patch TD DAILY [facility] Last Admin: 08/24/18 09:10 Dose: 1 patch Prednisone (Prednisone Tab) 15 mg PO DAILY [facility] Last Admin: 08/24/18 11:24 Dose: Not Given Quetiapine Fumarate (Seroquel) 25 mg PO BID [facility]; Protocol Last Admin: 08/24/18 09:09 Dose: 25 mg Sertraline HCl (Zoloft) 100 mg PO DAILY [facility] Last Admin: 08/24/18 09:08 Dose: 100 mg Verapamil HCl (Verapamil Inj) 2.5 mg IVP Q6H PRN PRN Reason: Heart rate Last Admin: 08/17/18 09:45 Dose: 2.5 mg Verapamil HCl (Calan Tab) 40 mg PO TID [facility] Last Admin: 08/24/18 09:08 Dose: 40 mg Warfarin Sodium (Coumadin) 3 mg PO 1800 [facility]; Protocol Last Admin: 08/23/18 17:03 Dose: 3 mg - Labs Labs: 08/24/18 07:00 08/24/18 07:00 PT 23.7 SECONDS (9.4-12.5) H 08/24/18 07:00 INR 2.10 08/24/18 07:00 APTT 43.0 Seconds (26.9-38.3) H 08/14/18 06:55 Attending/Attestation - Attestation I have personally seen and examined this patient.: Yes I have fully participated in the care of the patient.: Yes I have reviewed all pertinent clinical information, including history, physical exam and plan: Yes Notes (Text): 08/24/18 14:03 Medical record note made by the resident after discussion with my direction and input after the patient was personally seen and examined by me. I have reviewed the chart and agree that the record accurately reflects by personal performance of the history, physical exam, data review, and medical decision-making, in the course for the patient. I have also personally directed the plan of care.
[2018-08-21] MEDS: Budesonide 0.5 mg/2 ml Inhal Susp UD IH SCH ×2 (08:27→19:11)
[2018-08-21] MEDS: Insulin Reg-LOW-Coverage SC SCH ×3 (08:30→17:31)
[2018-08-21 09:42] LABS: INR 2.31; PROTHROMBIN TIME 26.1 SECONDS (9.4-12.5)
--- NOTE | 2018-08-21 11:33 | CP.PCM.PN ---
<FranluisMoreno - Last Filed: 08/21/18 17:39> Subjective - Date & Time of Evaluation Date of Evaluation: 08/21/18 Time of Evaluation: 07:30 - Subjective Subjective: PGY6 GI Fellow Progress Note Patient seen and examined bedside this morning. The patient is upset this morning as she is eager to be discharged and wanted to sign AMA. She is awaiting evaluation with psychiatry. Remains dyspneic. 12 system ROS performed and negative except where stated Objective - Vital Signs/Intake and Output Vital Signs (last 24 hours): Temp Pulse Resp BP Pulse Ox 97.3 F L 94 H 22 149/92 H 95 08/21/18 04:00 08/21/18 08:00 08/21/18 00:00 08/21/18 08:05 08/21/18 00:30 Intake and Output: 08/21/18 08/21/18 06:59 18:59 Intake Total 200 Balance 200 - Medications Medications: Current Medications Albuterol/Ipratropium (Duoneb 3 Mg/0.5 Mg (3 Ml) Ud) 3 ml IH Q2H PRN PRN Reason: Shortness of Breath Albuterol/Ipratropium (Duoneb 3 Mg/0.5 Mg (3 Ml) Ud) 3 ml IH [id number] [facility] Last Admin: 08/21/18 08:25 Dose: 3 ml Alprazolam (Xanax) 1 mg PO TID [facility]; Protocol Last Admin: 08/21/18 08:00 Dose: 1 mg Aspirin (Aspirin Chewable) 81 mg PO DAILY [facility] Last Admin: 08/21/18 09:50 Dose: Not Given Atenolol (Tenormin) 25 mg PO BID [facility] Last Admin: 08/21/18 09:53 Dose: Not Given Atorvastatin Calcium (Lipitor) 10 mg PO HS [facility] Last Admin: 08/16/18 21:31 Dose: 10 mg Budesonide (Pulmicort Respules) 0.5 mg IH [id number] [facility] Last Admin: 08/21/18 08:27 Dose: 0.5 mg Dextrose (Dextrose 50% Inj) 0 ml IV STAT PRN; Protocol PRN Reason: Hypoglycemia Protocol Digoxin (Lanoxin) 0.25 mg PO 1400 [facility] Last Admin: 08/20/18 15:55 Dose: 0.25 mg Famotidine (Pepcid) 20 mg PO DAILY [facility] Last Admin: 08/20/18 10:05 Dose: 20 mg Furosemide (Lasix) 40 mg PO DAILY [facility] Furosemide (Lasix) 40 mg IVP DAILY [facility] Last Admin: 08/21/18 08:04 Dose: 40 mg Gabapentin (Neurontin) 400 mg PO QID [facility]; Protocol Last Admin: 08/21/18 08:04 Dose: 400 mg Dextrose (Dextrose 5% In Water 1000 Ml) 1,000 mls @ 0 mls/hr IV .Q0M PRN; Protocol PRN Reason: Hypoglycemia Protocol Insulin Human Regular (Humulin R Low) 0 units SC ACHS [facility]; Protocol Last Admin: 08/21/18 08:30 Dose: Not Given Levalbuterol HCl (Xopenex) 1.25 mg IH [id number] PRN PRN Reason: Shortness of Breath Last Admin: 08/17/18 15:19 Dose: 1.25 mg Nicotine (Nicoderm Cq) 1 patch TD DAILY [facility] Last Admin: 08/20/18 09:53 Dose: 1 patch Quetiapine Fumarate (Seroquel) 25 mg PO BID [facility]; Protocol Last Admin: 08/21/18 09:54 Dose: Not Given Sertraline HCl (Zoloft) 100 mg PO DAILY [facility] Verapamil HCl (Verapamil Inj) 2.5 mg IVP Q6H PRN PRN Reason: Heart rate Last Admin: 08/17/18 09:45 Dose: 2.5 mg Verapamil HCl (Calan Tab) 40 mg PO TID [facility] Last Admin: 08/21/18 09:51 Dose: Not Given Warfarin Sodium (Coumadin) 5 mg PO 1800 [facility]; Protocol Last Admin: 08/18/18 17:07 Dose: 5 mg - Labs Labs: 08/21/18 05:05 08/21/18 05:05 PT 26.1 SECONDS (9.4-12.5) H 08/21/18 08:24 INR 2.31 08/21/18 08:24 APTT 43.0 Seconds (26.9-38.3) H 08/14/18 06:55 - Constitutional Appears: Non-toxic, No Acute Distress - Eye Exam Eye Exam: EOMI, PERRL - ENT Exam ENT Exam: Mucous Membranes Moist - Respiratory Exam Respiratory Exam: Rales. absent: Clear to Ausculation Bilateral, Rhonchi, Wheezes - Cardiovascular Exam Cardiovascular Exam: Irregular Rhythm, +S1, +S2 - GI/Abdominal Exam GI & Abdominal Exam: Soft, Normal Bowel Sounds. absent: Distended, Firm, Guarding, Rigid, Tenderness, Organomegaly - Extremities Exam Extremities Exam: Normal Inspection. absent: Pedal Edema - Neurological Exam Neurological Exam: Alert, Awake, Oriented x3 - Psychiatric Exam Psychiatric exam: Anxious - Skin Skin Exam: Dry, Warm Assessment and Plan - Assessment and Plan (Free Text) Assessment: Patient is a 72yo female with PMHx significant for paroxysmal atrial fibrillation on coumadin, CAD, COPD and tobacco abuse who presented to the ED with shortness of breath -Atrial fibrillation with RVR -COPD -CBD 10mm on U/S -Elevated LFTs Plan: -Psych consultation requested regarding patient capacity -Asymptomatic from GI standpoint at this juncture -AST/ALT improved, elevation likely a result of rapid afib episode -Viral hepatitis serologies negative -Check autoimmune markers - HOSSEIN, AMA, SMA -MRCP once patient is more stable from a cardiopulmonary standpoint and can tolerate exam <Jose D Doty V - Last Filed: 08/21/18 21:45> Objective - Vital Signs/Intake and Output Vital Signs (last 24 hours): Temp Pulse Resp BP Pulse Ox 98.3 F 77 18 126/75 97 08/21/18 21:21 08/21/18 21:21 08/21/18 21:21 08/21/18 21:21 08/21/18 21:21 - Medications Medications: Current Medications Albuterol/Ipratropium (Duoneb 3 Mg/0.5 Mg (3 Ml) Ud) 3 ml IH Q2H PRN PRN Reason: Shortness of Breath Albuterol/Ipratropium (Duoneb 3 Mg/0.5 Mg (3 Ml) Ud) 3 ml IH [id number] [facility] Last Admin: 08/21/18 19:11 Dose: 3 ml Alprazolam (Xanax) 1 mg PO TID [facility]; Protocol Last Admin: 08/21/18 18:14 Dose: 1 mg Amoxicillin/Clavulanate Potassium (Augmentin 875 Mg-125 Mg Tab) 1 tab PO Q12 [facility]; Protocol Stop: 08/22/18 20:00 Last Admin: 08/21/18 13:57 Dose: 1 tab Aspirin (Aspirin Chewable) 81 mg PO DAILY [facility] Last Admin: 08/21/18 09:50 Dose: Not Given Atenolol (Tenormin) 25 mg PO BID [facility] Last Admin: 08/21/18 18:15 Dose: 25 mg Atorvastatin Calcium (Lipitor) 10 mg PO HS [facility] Last Admin: 08/16/18 21:31 Dose: 10 mg Budesonide (Pulmicort Respules) 0.5 mg IH [id number] [facility] Last Admin: 08/21/18 19:11 Dose: 0.5 mg Dextrose (Dextrose 50% Inj) 0 ml IV STAT PRN; Protocol PRN Reason: Hypoglycemia Protocol Digoxin (Lanoxin) 0.25 mg PO 1400 [facility] Last Admin: 08/21/18 13:57 Dose: 0.25 mg Famotidine (Pepcid) 20 mg PO DAILY [facility] Last Admin: 08/21/18 12:23 Dose: 20 mg Furosemide (Lasix) 40 mg PO DAILY [facility] Furosemide (Lasix) 40 mg IVP DAILY [facility] Last Admin: 08/21/18 08:04 Dose: 40 mg Gabapentin (Neurontin) 400 mg PO QID [facility]; Protocol Last Admin: 08/21/18 18:16 Dose: 400 mg Dextrose (Dextrose 5% In Water 1000 Ml) 1,000 mls @ 0 mls/hr IV .Q0M PRN; Protocol PRN Reason: Hypoglycemia Protocol Insulin Human Regular (Humulin R Low) 0 units SC ACHS [facility]; Protocol Last Admin: 08/21/18 17:31 Dose: Not Given Levalbuterol HCl (Xopenex) 1.25 mg IH [id number] PRN PRN Reason: Shortness of Breath Last Admin: 08/17/18 15:19 Dose: 1.25 mg Nicotine (Nicoderm Cq) 1 patch TD DAILY [facility] Last Admin: 08/21/18 08:05 Dose: 1 patch Prednisone (Prednisone Tab) 30 mg PO DAILY [facility] Last Admin: 08/21/18 13:59 Dose: 30 mg Quetiapine Fumarate (Seroquel) 25 mg PO BID [facility]; Protocol Last Admin: 08/21/18 18:14 Dose: 25 mg Sertraline HCl (Zoloft) 100 mg PO DAILY [facility] Verapamil HCl (Verapamil Inj) 2.5 mg IVP Q6H PRN PRN Reason: Heart rate Last Admin: 08/17/18 09:45 Dose: 2.5 mg Verapamil HCl (Calan Tab) 40 mg PO TID [facility] Last Admin: 08/21/18 18:15 Dose: 40 mg Warfarin Sodium (Coumadin) 2 mg PO 1800 [facility]; Protocol Last Admin: 08/21/18 18:15 Dose: 2 mg - Labs Labs: 08/21/18 05:05 08/21/18 05:05 PT 26.1 SECONDS (9.4-12.5) H 08/21/18 08:24 INR 2.31 08/21/18 08:24 APTT 43.0 Seconds (26.9-38.3) H 08/14/18 06:55 Attending/Attestation - Attestation I have personally seen and examined this patient.: Yes I have fully participated in the care of the patient.: Yes I have reviewed all pertinent clinical information, including history, physical exam and plan: Yes Notes (Text): This patient was seen and evaluated earlier. There is an addendum to the GI progress note dictated by the fellow. Patient's respiratory status is better. Would request for MRCP to further evaluate to the dilated PD if the patient is agreeable and respiratory status remained stable and improved 08/21/18 21:44
[2018-08-21] MEDS: Mupirocin 2% Ointment 15 GM TUBE NS SCH (12:22)
[2018-08-21] MEDS: Amoxicillin-Clav 875-125 mg Tab PO SCH (13:57)
[2018-08-21] MEDS: Digoxin 250 mcg (0.25 mg) Tab PO SCH (13:57)
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
--- NOTE | 2018-08-21 16:09 | PN ---
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 OBJECTIVE: GENERAL: Not in apparent distress. VITAL SIGNS: Temperature afebrile. Heart rate 94 and blood pressure 149/82. HEENT: PERRLA. Extraocular muscles intact. NECK: Supple. No carotid bruits. No thyromegaly. CHEST: Clear to auscultation. HEART: S1 and S2, regular. ABDOMEN: Soft. EXTREMITIES: Clubbing and cyanosis negative. LABORATORY DATA: Blood workup as follows: WBC 11.8, hemoglobin 14.2, hematocrit 44.6 and platelet count 266. Chemistry shows sodium 140, potassium 4.0, chloride 100, carbon dioxide 33, anion gap of 11, BUN 31 and creatinine 0.5. IMPRESSION: A 72-year-old female with past medical history significant for nonobstructive coronary artery disease, status post cardiac catheterization twice admitted with acute exacerbation of chronic obstructive pulmonary disease, history of paroxysmal atrial fibrillation, was on the floor, had rapid response intubated because of the exacerbation of chronic obstructive pulmonary disease. Recent MUGA scan showed preserved left ventricular function, echo also showed improved left ventricular function, study shows decreased left ventricular function, nonischemic cardiomyopathy, but that was improved. The patient is very anxious and stressful and gets started wheezing. Now, the patient is in ICU awaiting for the blood. RECOMMENDATIONS: Continue atenolol. Continue verapamil. INR is 2.31, yesterday was 3.52. The patient was at home on Coumadin 3 mg, now plan is we will start Coumadin 2 mg from today. Continue verapamil 40 mg three times a day. Continue atenolol 25 mg p.o. b.i.d. Continue digoxin. 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 CVS status is stable. Okay to be discharged. Mak Mendez MD
--- NOTE | 2018-08-21 21:37 | CP.PCM.PCO ---
Physician Communication Note - Physician Communication Note Physician Communication Note: AMA Addendum Addendum: 08/21/18 21:[address] Sparrow because patient reported that she wanted to AMA. When arriving to patient room, patients daughter Junior Subramanian, was at bedside insisting that she take her mother home. It was explained to the daughter that the patient is deemed incompetent by psych, and can only be signed out AMA by her next of kin or POA. Chart was reviewed, and revealed that this daughter is not the patients POA, or listed next of kin. Daughter became very agitated and aggressive upon learning she cannot take her mother home. Multiple attempts made to contact alternative sibling Geno. Spoke with Dr. Linton who agrees with current course
[2018-08-22] MEDS: Albuterol-Ipratrop 3 mg / 0.5 (3 ml) UD IH SCH ×7 (01:11→23:32)
[2018-08-22] MEDS: Amoxicillin-Clav 875-125 mg Tab PO SCH ×2 (03:13→11:38)
[2018-08-22] MEDS: Insulin Reg-LOW-Coverage SC SCH ×3 (04:03→12:49)
[2018-08-22 07:10] LABS: EOS # 0.1 (0.0-0.7); EOS % 0.4 % (1.5-5.0); HEMOGLOBIN 13.3 g/dL (12.0-16.0); LYMPH # 1.9 (1.2-3.4); LYMPH % 13.6 % (22.0-35.0); MEAN CELL VOLUME 88.1 fl (80.0-105.0); MEAN CORPUSCULAR HEMOGLOBIN 27.8 pg (25.0-35.0); MEAN CORPUSCULAR HGB CONC 31.6 g/dl (31.0-37.0); MEAN PLATELET VOLUME 9.9 fl (7.0-11.0); MONO # 1.3 (0.1-0.6); MONO % 9.1 % (1.0-6.0); RBC 4.78 10^6/uL (3.5-6.1); RED CELL DISTRIBUTION WIDTH 13.8 % (11.5-14.5); WHITE BLOOD COUNT 13.8 10^3/uL (4.5-11.0)
[2018-08-22] MEDS: Budesonide 0.5 mg/2 ml Inhal Susp UD IH SCH ×2 (07:11→19:24)
[2018-08-22 07:12] LABS: INR 2.12
[2018-08-22 07:27] LABS: ALB/GLOB RATIO 1.1 (1.1-1.8); ALBUMIN 3.1 g/dL (3.0-4.8); ALT/SGPT 104 U/L (7-56); AST/SGOT 51 U/L (14-36); BLOOD UREA NITROGEN 31 mg/dL (7-21); CALCIUM 8.9 mg/dL (8.4-10.5); GFR NON-AFRICAN AMERICAN > 60
--- NOTE | 2018-08-22 09:26 | CP.PCM.PN ---
Subjective - Date & Time of Evaluation Date of Evaluation: 08/22/18 Time of Evaluation: 06:40 - Subjective Subjective: Awake, alert, no distress Reason for consultation and follow up: Cardiac evaluation of rapid atrial fibrillation, post UTILITY TECH, intubated, successfully extubated Seen and examined by me and Dr. Mendez Objective - Vital Signs/Intake and Output Vital Signs (last 24 hours): Temp Pulse Resp BP Pulse Ox 98.4 F 65 18 145/91 H 99 08/22/18 06:00 08/22/18 06:00 08/22/18 06:00 08/22/18 06:00 08/22/18 06:00 - Medications Medications: Current Medications Albuterol/Ipratropium (Duoneb 3 Mg/0.5 Mg (3 Ml) Ud) 3 ml IH Q2H PRN PRN Reason: Shortness of Breath Albuterol/Ipratropium (Duoneb 3 Mg/0.5 Mg (3 Ml) Ud) 3 ml IH [id number] [facility] Last Admin: 08/22/18 07:11 Dose: 3 ml Alprazolam (Xanax) 1 mg PO TID [facility]; Protocol Last Admin: 08/21/18 18:14 Dose: 1 mg Amoxicillin/Clavulanate Potassium (Augmentin 875 Mg-125 Mg Tab) 1 tab PO Q12 [facility]; Protocol Stop: 08/22/18 20:00 Last Admin: 08/22/18 03:13 Dose: 1 tab Aspirin (Aspirin Chewable) 81 mg PO DAILY [facility] Last Admin: 08/21/18 09:50 Dose: Not Given Atenolol (Tenormin) 25 mg PO BID [facility] Last Admin: 08/21/18 18:15 Dose: 25 mg Atorvastatin Calcium (Lipitor) 10 mg PO HS [facility] Last Admin: 08/16/18 21:31 Dose: 10 mg Budesonide (Pulmicort Respules) 0.5 mg IH [id number] [facility] Last Admin: 08/22/18 07:11 Dose: 0.5 mg Dextrose (Dextrose 50% Inj) 0 ml IV STAT PRN; Protocol PRN Reason: Hypoglycemia Protocol Digoxin (Lanoxin) 0.25 mg PO 1400 [facility] Last Admin: 08/21/18 13:57 Dose: 0.25 mg Famotidine (Pepcid) 20 mg PO DAILY [facility] Last Admin: 08/21/18 12:23 Dose: 20 mg Furosemide (Lasix) 40 mg PO DAILY [facility] Gabapentin (Neurontin) 400 mg PO QID [facility]; Protocol Last Admin: 08/21/18 22:00 Dose: Not Given Dextrose (Dextrose 5% In Water 1000 Ml) 1,000 mls @ 0 mls/hr IV .Q0M PRN; Protocol PRN Reason: Hypoglycemia Protocol Insulin Human Regular (Humulin R Low) 0 units SC ACHS [facility]; Protocol Last Admin: 08/22/18 04:03 Dose: Not Given Levalbuterol HCl (Xopenex) 1.25 mg IH [id number] PRN PRN Reason: Shortness of Breath Last Admin: 08/17/18 15:19 Dose: 1.25 mg Nicotine (Nicoderm Cq) 1 patch TD DAILY [facility] Last Admin: 08/21/18 08:05 Dose: 1 patch Prednisone (Prednisone Tab) 30 mg PO DAILY [facility] Last Admin: 08/21/18 13:59 Dose: 30 mg Quetiapine Fumarate (Seroquel) 25 mg PO BID [facility]; Protocol Last Admin: 08/21/18 18:14 Dose: 25 mg Sertraline HCl (Zoloft) 100 mg PO DAILY [facility] Verapamil HCl (Verapamil Inj) 2.5 mg IVP Q6H PRN PRN Reason: Heart rate Last Admin: 08/17/18 09:45 Dose: 2.5 mg Verapamil HCl (Calan Tab) 40 mg PO TID [facility] Last Admin: 08/21/18 18:15 Dose: 40 mg Warfarin Sodium (Coumadin) 2 mg PO 1800 [facility]; Protocol Last Admin: 08/21/18 18:15 Dose: 2 mg - Labs Labs: 08/22/18 06:40 08/22/18 06:40 PT 24.0 SECONDS (9.4-12.5) H 08/22/18 06:40 INR 2.12 08/22/18 06:40 APTT 43.0 Seconds (26.9-38.3) H 08/14/18 06:55 - Constitutional Appears: Non-toxic, No Acute Distress - Head Exam Head Exam: NORMAL INSPECTION, NORMOCEPHALIC - Eye Exam Eye Exam: Normal appearance Pupil Exam: NORMAL ACCOMODATION - ENT Exam ENT Exam: Mucous Membranes Moist, Normal Exam - Neck Exam Neck Exam: Full ROM, Normal Inspection - Respiratory Exam Respiratory Exam: Decreased Breath Sounds, Clear to Ausculation Bilateral, NORMAL BREATHING PATTERN - Cardiovascular Exam Cardiovascular Exam: +S1, +S2 - GI/Abdominal Exam GI & Abdominal Exam: Soft, Normal Bowel Sounds - Extremities Exam Extremities Exam: Full ROM, Normal Capillary Refill - Neurological Exam Neurological Exam: Alert, Awake - Psychiatric Exam Psychiatric exam: Normal Affect, Normal Mood - Skin Skin Exam: Dry, Normal Color, Warm Assessment and Plan - Assessment and Plan (Free Text) Assessment: A 72 year old female who came to the ER due to complaints of worsening shortness of breath for the past few days. History of atrial fibrillation on Coumadin, COPD, on home oxygen,non ischemic cardiomyopathy, coronary artery disease, diastolic CHF, anxiety, hypertension,Robotic assisted Left VATS with wedge resection and lymph node biopsy 06/2015, polypectomy, Current smoker. Non com pliant with medications. Stress test was abnormal/positive on 06/14/16 with LVEF of 37% thus cardiac catheterization was done on 06/29/16 and showed non-obstructive coronary artery disease limited to very distal LAD diffusely diseased like thread but no focal limiting flow noted, LVEF 35-40%, non ischemic cardiomyopathy, chronic atrial fibrillation..MUGA scan done on 09/17/17 showed LVEF of 56% which improved compared to previous studies, Echo done on 01/25/18 and showed LVEF 54%, mild to moderate TR/MR. Consult was called for rapid atrial fibrillation. Admitted for exacerbation of chronic COPD and rapid atrial fibrillation. Digoxin /Cardizem and Verapamil given. Heart rate stabilized and controlled. Worsening shortness of breath/respiratory distress requiring intubation. Intubated and transferred to ICU. Successfully extubated and stabilized and now transferred to Medical unit. Confuse, evaluated by Psych. wanted to go home. Cardiac status stable. May discharge from cardiac standpoint. Plan: No distress Heart rate stable/controlled Blood pressure stable Confuse,wanted to go home, evaluated by Psych Continue current treatment Continue current medications On ASA 81 mg daily,Tenormin 25 mg BID,Lipitor 10 mg daily, Digoxin 0.25 mg daily,Lasix 40 mg daily,Nicoderm patch daily, Prednisone 30 mg daily, Verapamil 40 mg TID,Coumadin 2 mg daily Discharge planning Smoking cessation May discharge from cardiac standpoint Will follow up Plan and treatment discussed with Dr. Mendez
--- NOTE | 2018-08-22 12:04 | CP.PCM.PN ---
<[email or web address] - Last Filed: 08/22/18 11:59> Subjective - Date & Time of Evaluation Date of Evaluation: 08/22/18 Time of Evaluation: 09:50 - Subjective Subjective: PGY6 GI Fellow Progress Note Patient seen and examined bedside this morning. The patient remains agitated and constantly states she wants to leave. She is not willing to answer questions. Was confused last night/this morning. 12 system ROS performed and negative except where stated Objective - Vital Signs/Intake and Output Vital Signs (last 24 hours): Temp Pulse Resp BP Pulse Ox 98.4 F 65 18 126/62 99 08/22/18 06:00 08/22/18 06:00 08/22/18 06:00 08/22/18 11:38 08/22/18 06:00 - Medications Medications: Current Medications Albuterol/Ipratropium (Duoneb 3 Mg/0.5 Mg (3 Ml) Ud) 3 ml IH Q2H PRN PRN Reason: Shortness of Breath Last Admin: 08/22/18 09:26 Dose: 3 ml Albuterol/Ipratropium (Duoneb 3 Mg/0.5 Mg (3 Ml) Ud) 3 ml IH [id number] [facility] Last Admin: 08/22/18 11:09 Dose: 3 ml Alprazolam (Xanax) 1 mg PO TID [facility]; Protocol Last Admin: 08/22/18 11:36 Dose: 1 mg Amoxicillin/Clavulanate Potassium (Augmentin 875 Mg-125 Mg Tab) 1 tab PO Q12 [facility]; Protocol Stop: 08/22/18 20:00 Last Admin: 08/22/18 11:38 Dose: 1 tab Aspirin (Aspirin Chewable) 81 mg PO DAILY [facility] Last Admin: 08/22/18 11:38 Dose: 81 mg Atenolol (Tenormin) 25 mg PO BID [facility] Last Admin: 08/21/18 18:15 Dose: 25 mg Atorvastatin Calcium (Lipitor) 10 mg PO HS [facility] Last Admin: 08/16/18 21:31 Dose: 10 mg Budesonide (Pulmicort Respules) 0.5 mg IH [id number] [facility] Last Admin: 08/22/18 07:11 Dose: 0.5 mg Dextrose (Dextrose 50% Inj) 0 ml IV STAT PRN; Protocol PRN Reason: Hypoglycemia Protocol Digoxin (Lanoxin) 0.25 mg PO 1400 [facility] Last Admin: 08/21/18 13:57 Dose: 0.25 mg Famotidine (Pepcid) 20 mg PO DAILY [facility] Last Admin: 08/22/18 11:38 Dose: 20 mg Furosemide (Lasix) 40 mg PO DAILY [facility] Last Admin: 08/22/18 11:38 Dose: 40 mg Gabapentin (Neurontin) 400 mg PO QID [facility]; Protocol Last Admin: 08/22/18 11:37 Dose: 400 mg Dextrose (Dextrose 5% In Water 1000 Ml) 1,000 mls @ 0 mls/hr IV .Q0M PRN; Protocol PRN Reason: Hypoglycemia Protocol Insulin Human Regular (Humulin R Low) 0 units SC ACHS [facility]; Protocol Last Admin: 08/22/18 04:03 Dose: Not Given Levalbuterol HCl (Xopenex) 1.25 mg IH [id number] PRN PRN Reason: Shortness of Breath Last Admin: 08/17/18 15:19 Dose: 1.25 mg Nicotine (Nicoderm Cq) 1 patch TD DAILY [facility] Last Admin: 08/22/18 11:36 Dose: 1 patch Prednisone (Prednisone Tab) 30 mg PO DAILY [facility] Last Admin: 08/22/18 11:35 Dose: 30 mg Quetiapine Fumarate (Seroquel) 25 mg PO BID [facility]; Protocol Last Admin: 08/22/18 11:37 Dose: 25 mg Sertraline HCl (Zoloft) 100 mg PO DAILY [facility] Last Admin: 08/22/18 11:38 Dose: 100 mg Verapamil HCl (Verapamil Inj) 2.5 mg IVP Q6H PRN PRN Reason: Heart rate Last Admin: 08/17/18 09:45 Dose: 2.5 mg Verapamil HCl (Calan Tab) 40 mg PO TID [facility] Last Admin: 08/22/18 11:38 Dose: 40 mg Warfarin Sodium (Coumadin) 2 mg PO 1800 [facility]; Protocol Last Admin: 08/21/18 18:15 Dose: 2 mg - Labs Labs: 08/22/18 06:40 08/22/18 06:40 PT 24.0 SECONDS (9.4-12.5) H 08/22/18 06:40 INR 2.12 08/22/18 06:40 APTT 43.0 Seconds (26.9-38.3) H 08/14/18 06:55 - Constitutional Appears: No Acute Distress, Confused - Eye Exam Eye Exam: EOMI, PERRL - ENT Exam ENT Exam: Mucous Membranes Moist - Respiratory Exam Respiratory Exam: Rales. absent: Clear to Ausculation Bilateral, Rhonchi, Wheezes - Cardiovascular Exam Cardiovascular Exam: RRR, +S1, +S2 - GI/Abdominal Exam GI & Abdominal Exam: Soft, Normal Bowel Sounds. absent: Distended, Firm, Guarding, Rigid, Tenderness, Organomegaly - Extremities Exam Extremities Exam: Normal Inspection. absent: Pedal Edema - Neurological Exam Neurological Exam: Alert, Awake, Oriented x3 - Psychiatric Exam Psychiatric exam: Normal Affect, Normal Mood - Skin Skin Exam: Dry, Warm Assessment and Plan - Assessment and Plan (Free Text) Assessment: Patient is a 72yo female with PMHx significant for paroxysmal atrial fibrillation on coumadin, CAD, COPD and tobacco abuse who presented to the ED with shortness of breath -Atrial fibrillation with RVR -COPD -CBD 10mm on U/S -Elevated LFTs Plan: -Deemed incompetent to make medical decisions by psychiatry service - daughter is NOK and POA -Patient refusing further evaluation for elevated LFTs and dilated CBD despite adequate education - possible that patient does not understand complexity of this situation -She warrants further imaging with MRCP but it is unlikely at this time given ag itation/confusion and dyspnea that she will be able to tolerate this exam or even a pancreatic protocol CT - regardless she states she would not comply with these studies presently -AST/ALT elevation persists - if ongoing and work up negative, would possibly warrant liver biopsy -Viral hepatitis serologies and autoimmune markers are negative thus far <Jose D Doty V - Last Filed: 08/22/18 19:13> Objective - Vital Signs/Intake and Output Vital Signs (last 24 hours): Temp Pulse Resp BP Pulse Ox 98.0 F 79 20 118/70 97 08/22/18 13:43 08/22/18 13:43 08/22/18 13:43 08/22/18 13:43 08/22/18 13:43 - Medications Medications: Current Medications Albuterol/Ipratropium (Duoneb 3 Mg/0.5 Mg (3 Ml) Ud) 3 ml IH Q2H PRN PRN Reason: Shortness of Breath Last Admin: 08/22/18 09:26 Dose: 3 ml Albuterol/Ipratropium (Duoneb 3 Mg/0.5 Mg (3 Ml) Ud) 3 ml IH [id number] [facility] Last Admin: 08/22/18 15:39 Dose: 3 ml Alprazolam (Xanax) 1 mg PO TID [facility]; Protocol Last Admin: 08/22/18 15:24 Dose: 1 mg Amoxicillin/Clavulanate Potassium (Augmentin 875 Mg-125 Mg Tab) 1 tab PO Q12 [facility]; Protocol Stop: 08/22/18 20:00 Last Admin: 08/22/18 11:38 Dose: 1 tab Aspirin (Aspirin Chewable) 81 mg PO DAILY [facility] Last Admin: 08/22/18 11:38 Dose: 81 mg Atenolol (Tenormin) 25 mg PO BID [facility] Last Admin: 08/22/18 15:24 Dose: 25 mg Atorvastatin Calcium (Lipitor) 10 mg PO HS [facility] Last Admin: 08/16/18 21:31 Dose: 10 mg Budesonide (Pulmicort Respules) 0.5 mg IH [id number] [facility] Last Admin: 08/22/18 07:11 Dose: 0.5 mg Dextrose (Dextrose 50% Inj) 0 ml IV STAT PRN; Protocol PRN Reason: Hypoglycemia Protocol Digoxin (Lanoxin) 0.25 mg PO 1400 [facility] Last Admin: 08/22/18 15:24 Dose: 0.25 mg Famotidine (Pepcid) 20 mg PO DAILY [facility] Last Admin: 08/22/18 11:38 Dose: 20 mg Furosemide (Lasix) 40 mg PO DAILY [facility] Last Admin: 08/22/18 11:38 Dose: 40 mg Gabapentin (Neurontin) 400 mg PO QID [facility]; Protocol Last Admin: 08/22/18 18:36 Dose: 400 mg Dextrose (Dextrose 5% In Water 1000 Ml) 1,000 mls @ 0 mls/hr IV .Q0M PRN; Protocol PRN Reason: Hypoglycemia Protocol Insulin Human Regular (Humulin R Low) 0 units SC ACHS [facility]; Protocol Last Admin: 08/22/18 12:49 Dose: Not Given Levalbuterol HCl (Xopenex) 1.25 mg IH [id number] PRN PRN Reason: Shortness of Breath Last Admin: 08/22/18 12:49 Dose: 1.25 mg Nicotine (Nicoderm Cq) 1 patch TD DAILY [facility] Last Admin: 08/22/18 11:36 Dose: 1 patch Prednisone (Prednisone Tab) 30 mg PO DAILY [facility] Last Admin: 08/22/18 11:35 Dose: 30 mg Quetiapine Fumarate (Seroquel) 25 mg PO BID [facility]; Protocol Last Admin: 08/22/18 18:35 Dose: 25 mg Sertraline HCl (Zoloft) 100 mg PO DAILY [facility] Last Admin: 08/22/18 11:38 Dose: 100 mg Verapamil HCl (Verapamil Inj) 2.5 mg IVP Q6H PRN PRN Reason: Heart rate Last Admin: 08/17/18 09:45 Dose: 2.5 mg Verapamil HCl (Calan Tab) 40 mg PO TID [facility] Last Admin: 08/22/18 18:35 Dose: 40 mg Warfarin Sodium (Coumadin) 2.5 mg PO 1800 [facility]; Protocol Last Admin: 08/22/18 18:35 Dose: 2.5 mg - Labs Labs: 08/22/18 06:40 08/22/18 06:40 PT 24.0 SECONDS (9.4-12.5) H 08/22/18 06:40 INR 2.12 08/22/18 06:40 APTT 43.0 Seconds (26.9-38.3) H 08/14/18 06:55 Attending/Attestation - Attestation I have personally seen and examined this patient.: Yes I have fully participated in the care of the patient.: Yes I have reviewed all pertinent clinical information, including history, physical exam and plan: Yes Notes (Text): This patient was seen and evaluated along with the fellow earlier. Is an addendum to the GI progress report dictated by the fellow. Discussed with nursing staff. Patient probably not cooperative for the imaging studies at the present time. Patient still has cough. May not be able to lie still for MRCP. Follow-up LFT. 08/22/18 19:12
[2018-08-22] MEDS: Levalbuterol 1.25 MG/3 ML Inhal Soln UD IH PRN (12:49)
[2018-08-22] MEDS: Digoxin 250 mcg (0.25 mg) Tab PO SCH (15:24)
--- NOTE | 2018-08-22 19:38 | PN ---
DATE: 08/22/2018 SUBJECTIVE: The patient was seen today on the medical side. The patient was downgraded from ICU to the fifth floor. The patient presented to be alert. The patient knows that she is in the hospital, but she does not remember the circumstances of her admission in ICU. The patient does not remember that she was intubated and extubated. The patient wanted to leave against medical advice for the past few days, but today the patient did not request to be discharged against medical advise. This comic book writer educated the patient about seriousness of her medical condition. The patient is willing to stay into the hospital and complete her treatment, but this comic book writer cannot exclude that the patient will change her mind and this comic book writer caught the patient in a lucid period. The patient is still in delirium stage, which is slowly improving. OBJECTIVE: Vital signs reviewed. Labs reviewed. Medications reviewed. Discussed with the nursing staff. As per nursing staff, the patient is not agitated, not aggressive, not violent and psychosis and paranoia is slowly improving. MENTAL STATUS EXAMINATION: The patient presented to be alert, more pleasant. The patient described her mood as better. Affect was constricted. Thought process is more organized. At times, the patient could be over inclusive and circumstantial, but not tangential. Thought content; the patient denied visual, auditory or tactile hallucinations. The patient has transient paranoia, but today is improving. Insight and judgment seem to be slowly improving. Impulses are still unpredictable. IMPRESSION: The patient has history of anxiety and depression, which most likely is related to the medical condition. The patient was delirious, which is slowly improving. PLAN: We will continue current management and current medication. The patient does not want to leave the hospital as of now. The delirium is improving. This comic book writer will follow up every other day and advise accordingly. Next followup will be over the weekend. Dr. Wharton will see the patient on Sunday. Should you have any questions give me a call back. Shaila Mattson MD
--- NOTE | 2018-08-22 22:56 | CP.PCM.PN ---
<SimonakiyaValentino ramos - Last Filed: 08/24/18 13:47> Subjective - Date & Time of Evaluation Date of Evaluation: 08/22/18 Time of Evaluation: 07:40 - Subjective Subjective: Patient seen and examined this AM. No acute events reported overnight. Patient denies shortness of breath, chest pain, abdominal pain, nausea, vomiting, fever, chills. She indicates that she feels better since admission. Objective - Vital Signs/Intake and Output Vital Signs (last 24 hours): Temp Pulse Resp BP Pulse Ox 98 F 68 18 124/67 99 08/22/18 22:36 08/22/18 22:36 08/22/18 22:36 08/22/18 22:36 08/22/18 22:36 - Medications Medications: Current Medications Albuterol/Ipratropium (Duoneb 3 Mg/0.5 Mg (3 Ml) Ud) 3 ml IH Q2H PRN PRN Reason: Shortness of Breath Last Admin: 08/22/18 09:26 Dose: 3 ml Albuterol/Ipratropium (Duoneb 3 Mg/0.5 Mg (3 Ml) Ud) 3 ml IH [id number] [facility] Last Admin: 08/22/18 19:24 Dose: 3 ml Alprazolam (Xanax) 1 mg PO TID [facility]; Protocol Last Admin: 08/22/18 15:24 Dose: 1 mg Aspirin (Aspirin Chewable) 81 mg PO DAILY [facility] Last Admin: 08/22/18 11:38 Dose: 81 mg Atenolol (Tenormin) 25 mg PO BID [facility] Last Admin: 08/22/18 15:24 Dose: 25 mg Atorvastatin Calcium (Lipitor) 10 mg PO HS [facility] Last Admin: 08/16/18 21:31 Dose: 10 mg Budesonide (Pulmicort Respules) 0.5 mg IH [id number] [facility] Last Admin: 08/22/18 19:24 Dose: 0.5 mg Dextrose (Dextrose 50% Inj) 0 ml IV STAT PRN; Protocol PRN Reason: Hypoglycemia Protocol Digoxin (Lanoxin) 0.25 mg PO 1400 [facility] Last Admin: 08/22/18 15:24 Dose: 0.25 mg Famotidine (Pepcid) 20 mg PO DAILY [facility] Last Admin: 08/22/18 11:38 Dose: 20 mg Furosemide (Lasix) 40 mg PO DAILY [facility] Last Admin: 08/22/18 11:38 Dose: 40 mg Gabapentin (Neurontin) 400 mg PO QID [facility]; Protocol Last Admin: 08/22/18 18:36 Dose: 400 mg Dextrose (Dextrose 5% In Water 1000 Ml) 1,000 mls @ 0 mls/hr IV .Q0M PRN; Protocol PRN Reason: Hypoglycemia Protocol Insulin Human Regular (Humulin R Low) 0 units SC ACHS [facility]; Protocol Last Admin: 08/22/18 12:49 Dose: Not Given Levalbuterol HCl (Xopenex) 1.25 mg IH [id number] PRN PRN Reason: Shortness of Breath Last Admin: 08/22/18 12:49 Dose: 1.25 mg Nicotine (Nicoderm Cq) 1 patch TD DAILY [facility] Last Admin: 08/22/18 11:36 Dose: 1 patch Prednisone (Prednisone Tab) 30 mg PO DAILY [facility] Last Admin: 08/22/18 11:35 Dose: 30 mg Quetiapine Fumarate (Seroquel) 25 mg PO BID [facility]; Protocol Last Admin: 08/22/18 18:35 Dose: 25 mg Sertraline HCl (Zoloft) 100 mg PO DAILY [facility] Last Admin: 08/22/18 11:38 Dose: 100 mg Verapamil HCl (Verapamil Inj) 2.5 mg IVP Q6H PRN PRN Reason: Heart rate Last Admin: 08/17/18 09:45 Dose: 2.5 mg Verapamil HCl (Calan Tab) 40 mg PO TID [facility] Last Admin: 08/22/18 18:35 Dose: 40 mg Warfarin Sodium (Coumadin) 2.5 mg PO 1800 [facility]; Protocol Last Admin: 08/22/18 18:35 Dose: 2.5 mg - Labs Labs: 08/22/18 06:40 08/22/18 06:40 PT 24.0 SECONDS (9.4-12.5) H 08/22/18 06:40 INR 2.12 08/22/18 06:40 APTT 43.0 Seconds (26.9-38.3) H 08/14/18 06:55 - Constitutional Appears: No Acute Distress - Head Exam Head Exam: NORMAL INSPECTION, NORMOCEPHALIC - Eye Exam Eye Exam: EOMI, PERRL - ENT Exam ENT Exam: Mucous Membranes Moist - Neck Exam Neck Exam: Full ROM - Respiratory Exam Respiratory Exam: Decreased Breath Sounds, Clear to Ausculation Bilateral, NORMAL BREATHING PATTERN - Cardiovascular Exam Cardiovascular Exam: Irregular Rhythm, +S1, +S2 - GI/Abdominal Exam GI & Abdominal Exam: Soft, Normal Bowel Sounds. absent: Tenderness - Extremities Exam Extremities Exam: Full ROM. absent: Pedal Edema - Neurological Exam Neurological Exam: Alert, Awake, Oriented x3 Neuro motor strength exam: Left Upper Extremity: 5, Right Upper Extremity: 5, Left Lower Extremity: 5, Right Lower Extremity: 5 - Psychiatric Exam Psychiatric exam: Normal Affect, Normal Mood. absent: Agitated - Skin Skin Exam: Dry, Intact Assessment and Plan - Assessment and Plan (Free Text) Assessment: 72 year old female with past medical history of paroxysmal atrial fibrillation, non-ischemic cardiomyopathy, CAD, COPD not on home O2 presented with worsening shortness of breath for everal days. Patient was found to be in Atrial fibrillation with RVR and started on cardizem drip, which helped control rate. Cardizem drip has now been discontinued. INR was subtherapeutic so lovenox was added to bridge along with warfarin. Patient was in respiratory distress secondary to ativan vs. COPD and was intubated. Patient is now extubated. Patient is now on medical surgical floor. Plan: COPD excerbation -ABG from 08/17 shows CO2 within normal limits -Discontinue Solumedrol IV, Taper prednisone -Continue with pulmicort -Continue nicotine patch Atrial fibrillation -INR: within therapeutic range -Rate controlled continue to monitor -Continue with verapamil 40 mg TID -Continue with PRN verapamil 2.5 mg IV Q6H -Continue atenolol 25 mg BID -Continue digoxin 0.25 mg daily -Cardiology with warfarin 3mg Delerium -Secondary to ICU vs. Steroids vs. underlying psychiatric pathology -Psych consulted for evaluation and decision making ability -1:1 sitter continued CAD - Troponin negative x3, EKG without ST elevation/depression - Continue aspirin 81, atenolol 25 mg BID Diastolic CHF -Continue with atenolol 25 BID, digoxin 0.25 daily, lasix Delirium-resolved -Continue with xanax 1 mg TID -Continue seroquel 25 mg BID and sertraline 100 BID -Patient is currently agitated regarding wanting to return home and as a result will consult psychiatry, Dr. Mattson, for further evaluation Diabetes mellitus type II -Continue with low sliding scale insulin -Continue with neurontin 400 QID -Accuchecks ACHS -bg appears to be controlled, Hypertension -Continue with atenolol 25 mg BID GI/DVT prophylaxis: - pepcid 20 mg daily - Warfarin, INR theraputic Dispo: Patient delirium/agitation continues to be issue and needs further monitoring and stabilization before she is safe for discharge. Will follow up psychiatry evaluation. Patient case and plan discussed with attending, Dr. Sparrow <Mak Sparrow - Last Filed: 08/24/18 14:02> Objective - Vital Signs/Intake and Output Vital Signs (last 24 hours): Temp Pulse Resp BP Pulse Ox 98.1 F 89 18 127/73 93 L 08/24/18 07:00 08/24/18 07:00 08/24/18 07:00 08/24/18 09:08 08/24/18 11:50 - Medications Medications: Current Medications Albuterol/Ipratropium (Duoneb 3 Mg/0.5 Mg (3 Ml) Ud) 3 ml IH Q2H PRN PRN Reason: Shortness of Breath Last Admin: 08/22/18 09:26 Dose: 3 ml Albuterol/Ipratropium (Duoneb 3 Mg/0.5 Mg (3 Ml) Ud) 3 ml IH [id number] [facility] Last Admin: 08/24/18 11:21 Dose: 3 ml Alprazolam (Xanax) 1 mg PO TID [facility]; Protocol Last Admin: 08/24/18 09:09 Dose: 1 mg Aspirin (Aspirin Chewable) 81 mg PO DAILY [facility] Last Admin: 08/24/18 09:08 Dose: 81 mg Atenolol (Tenormin) 25 mg PO BID [facility] Last Admin: 08/24/18 09:07 Dose: 25 mg Atorvastatin Calcium (Lipitor) 10 mg PO HS [facility] Last Admin: 08/16/18 21:31 Dose: 10 mg Budesonide (Pulmicort Respules) 0.5 mg IH [id number] [facility] Last Admin: 08/24/18 07:15 Dose: 0.5 mg Dextrose (Dextrose 50% Inj) 0 ml IV STAT PRN; Protocol PRN Reason: Hypoglycemia Protocol Digoxin (Lanoxin) 0.25 mg PO 1400 [facility] Last Admin: 08/23/18 14:23 Dose: 0.25 mg Famotidine (Pepcid) 20 mg PO DAILY [facility] Last Admin: 08/24/18 09:07 Dose: 20 mg Furosemide (Lasix) 40 mg PO DAILY [facility] Last Admin: 08/24/18 09:07 Dose: 40 mg Gabapentin (Neurontin) 400 mg PO QID [facility]; Protocol Last Admin: 08/24/18 09:08 Dose: 400 mg Dextrose (Dextrose 5% In Water 1000 Ml) 1,000 mls @ 0 mls/hr IV .Q0M PRN; Protocol PRN Reason: Hypoglycemia Protocol Insulin Human Regular (Humulin R Low) 0 units SC ACHS [facility]; Protocol Last Admin: 08/24/18 11:22 Dose: Not Given Levalbuterol HCl (Xopenex) 1.25 mg IH [id number] PRN PRN Reason: Shortness of Breath Last Admin: 08/22/18 12:49 Dose: 1.25 mg Nicotine (Nicoderm Cq) 1 patch TD DAILY [facility] Last Admin: 08/24/18 09:10 Dose: 1 patch Prednisone (Prednisone Tab) 15 mg PO DAILY [facility] Last Admin: 08/24/18 11:24 Dose: Not Given Quetiapine Fumarate (Seroquel) 25 mg PO BID [facility]; Protocol Last Admin: 08/24/18 09:09 Dose: 25 mg Sertraline HCl (Zoloft) 100 mg PO DAILY [facility] Last Admin: 08/24/18 09:08 Dose: 100 mg Verapamil HCl (Verapamil Inj) 2.5 mg IVP Q6H PRN PRN Reason: Heart rate Last Admin: 08/17/18 09:45 Dose: 2.5 mg Verapamil HCl (Calan Tab) 40 mg PO TID [facility] Last Admin: 08/24/18 09:08 Dose: 40 mg Warfarin Sodium (Coumadin) 3 mg PO 1800 [facility]; Protocol Last Admin: 08/23/18 17:03 Dose: 3 mg - Labs Labs: 08/24/18 07:00 08/24/18 07:00 PT 23.7 SECONDS (9.4-12.5) H 08/24/18 07:00 INR 2.10 08/24/18 07:00 APTT 43.0 Seconds (26.9-38.3) H 08/14/18 06:55 Attending/Attestation - Attestation I have personally seen and examined this patient.: Yes I have fully participated in the care of the patient.: Yes I have reviewed all pertinent clinical information, including history, physical exam and plan: Yes Notes (Text): 08/24/18 14:01 Patient COPD is improving.Cough and dyspnea is improved. Patient is still having intermittent confusion, will continue to monitor. Case was discussed with Psychiatry .
[2018-08-23] MEDS: Albuterol-Ipratrop 3 mg / 0.5 (3 ml) UD IH SCH ×6 (04:41→23:55)
[2018-08-23 07:10] LABS: EOS # 0.1 (0.0-0.7); EOS % 0.5 % (1.5-5.0); LYMPH # 1.8 (1.2-3.4); LYMPH % 14.4 % (22.0-35.0); MEAN CELL VOLUME 88.4 fl (80.0-105.0); MEAN CORPUSCULAR HEMOGLOBIN 27.5 pg (25.0-35.0); MEAN CORPUSCULAR HGB CONC 31.1 g/dl (31.0-37.0); MEAN PLATELET VOLUME 9.7 fl (7.0-11.0); MONO # 1.4 (0.1-0.6); RBC 4.73 10^6/uL (3.5-6.1); RED CELL DISTRIBUTION WIDTH 13.7 % (11.5-14.5); WHITE BLOOD COUNT 12.8 10^3/uL (4.5-11.0)
[2018-08-23 07:18] LABS: INR 1.93; PROTHROMBIN TIME 21.8 SECONDS (9.4-12.5)
[2018-08-23 07:22] LABS: ALB/GLOB RATIO 1.2 (1.1-1.8); ALBUMIN 3.2 g/dL (3.0-4.8); ALT/SGPT 98 U/L (7-56); AST/SGOT 51 U/L (14-36); BLOOD UREA NITROGEN 23 mg/dL (7-21); CALCIUM 8.8 mg/dL (8.4-10.5); GFR NON-AFRICAN AMERICAN > 60
[2018-08-23] MEDS: Budesonide 0.5 mg/2 ml Inhal Susp UD IH SCH ×2 (07:27→20:17)
[2018-08-23] MEDS: Insulin Reg-LOW-Coverage SC SCH ×3 (07:49→17:02)
[2018-08-23 08:10] VITALS: O2SAT 93
--- NOTE | 2018-08-23 08:11 | CP.PCM.PN ---
Subjective - Date & Time of Evaluation Date of Evaluation: 08/23/18 Time of Evaluation: 06:45 - Subjective Subjective: Awake, alert, no distress, lying in bed Reason for consultation and follow up: Cardiac evaluation of rapid atrial fibrillation, post [employer], intubated, successfully extubated Seen and examined by me and Dr. Mendez Objective - Vital Signs/Intake and Output Vital Signs (last 24 hours): Temp Pulse Resp BP Pulse Ox 98.1 F 68 18 144/87 93 L 08/23/18 06:00 08/23/18 06:00 08/23/18 06:00 08/23/18 06:00 08/23/18 06:00 - Medications Medications: Current Medications Albuterol/Ipratropium (Duoneb 3 Mg/0.5 Mg (3 Ml) Ud) 3 ml IH Q2H PRN PRN Reason: Shortness of Breath Last Admin: 08/22/18 09:26 Dose: 3 ml Albuterol/Ipratropium (Duoneb 3 Mg/0.5 Mg (3 Ml) Ud) 3 ml IH [id number] [facility] Last Admin: 08/23/18 07:28 Dose: 3 ml Alprazolam (Xanax) 1 mg PO TID [facility]; Protocol Last Admin: 08/22/18 15:24 Dose: 1 mg Aspirin (Aspirin Chewable) 81 mg PO DAILY [facility] Last Admin: 08/22/18 11:38 Dose: 81 mg Atenolol (Tenormin) 25 mg PO BID [facility] Last Admin: 08/22/18 15:24 Dose: 25 mg Atorvastatin Calcium (Lipitor) 10 mg PO HS [facility] Last Admin: 08/16/18 21:31 Dose: 10 mg Budesonide (Pulmicort Respules) 0.5 mg IH [id number] [facility] Last Admin: 08/23/18 07:27 Dose: 0.5 mg Dextrose (Dextrose 50% Inj) 0 ml IV STAT PRN; Protocol PRN Reason: Hypoglycemia Protocol Digoxin (Lanoxin) 0.25 mg PO 1400 [facility] Last Admin: 08/22/18 15:24 Dose: 0.25 mg Famotidine (Pepcid) 20 mg PO DAILY [facility] Last Admin: 08/22/18 11:38 Dose: 20 mg Furosemide (Lasix) 40 mg PO DAILY [facility] Last Admin: 08/22/18 11:38 Dose: 40 mg Gabapentin (Neurontin) 400 mg PO QID [facility]; Protocol Last Admin: 08/22/18 18:36 Dose: 400 mg Dextrose (Dextrose 5% In Water 1000 Ml) 1,000 mls @ 0 mls/hr IV .Q0M PRN; Protocol PRN Reason: Hypoglycemia Protocol Insulin Human Regular (Humulin R Low) 0 units SC ACHS [facility]; Protocol Last Admin: 08/23/18 07:49 Dose: Not Given Levalbuterol HCl (Xopenex) 1.25 mg IH [id number] PRN PRN Reason: Shortness of Breath Last Admin: 08/22/18 12:49 Dose: 1.25 mg Nicotine (Nicoderm Cq) 1 patch TD DAILY [facility] Last Admin: 08/22/18 11:36 Dose: 1 patch Prednisone (Prednisone Tab) 30 mg PO DAILY [facility] Last Admin: 08/22/18 11:35 Dose: 30 mg Quetiapine Fumarate (Seroquel) 25 mg PO BID [facility]; Protocol Last Admin: 08/22/18 18:35 Dose: 25 mg Sertraline HCl (Zoloft) 100 mg PO DAILY [facility] Last Admin: 08/22/18 11:38 Dose: 100 mg Verapamil HCl (Verapamil Inj) 2.5 mg IVP Q6H PRN PRN Reason: Heart rate Last Admin: 08/17/18 09:45 Dose: 2.5 mg Verapamil HCl (Calan Tab) 40 mg PO TID [facility] Last Admin: 08/22/18 18:35 Dose: 40 mg Warfarin Sodium (Coumadin) 2.5 mg PO 1800 [facility]; Protocol Last Admin: 08/22/18 18:35 Dose: 2.5 mg - Labs Labs: 08/23/18 07:00 08/23/18 07:00 PT 21.8 SECONDS (9.4-12.5) H 08/23/18 07:00 INR 1.93 08/23/18 07:00 APTT 43.0 Seconds (26.9-38.3) H 08/14/18 06:55 Assessment and Plan - Assessment and Plan (Free Text) Assessment: A 72 year old female who came to the ER due to complaints of worsening shortness of breath for the past few days. History of atrial fibrillation on Coumadin, COPD, on home oxygen,non ischemic cardiomyopathy, coronary artery disease, diastolic CHF, anxiety, hypertension,Robotic assisted Left VATS with wedge resection and lymph node biopsy 06/2015, polypectomy, Current smoker. Non compliant with medications. Stress test was abnormal/positive on 06/14/16 with LVEF of 37% thus cardiac catheterization was done on 06/29/16 and showed non-obstructive coronary artery disease limited to very distal LAD diffusely diseased like thread but no focal limiting flow noted, LVEF 35-40%, non ischemic cardiomyopathy, chronic atrial fibrillation..MUGA scan done on 09/17/17 showed LVEF of 56% which improved compared to previous studies, Echo done on 01/25/18 and showed LVEF 54%, mild to moderate TR/MR. Consult was called for rapid atrial fibrillation. Admitted for exacerbation of chronic COPD and rapid atrial fibrillation. Digoxin /Cardizem and Verapamil given. Heart rate stabilized and controlled. Worsening shortness of breath/respiratory distress requiring intubation. Intubated and transferred to ICU. Successfully extubated and stabilized and now transferred to Medical unit. Confuse, evaluated by Psych.Cardiac status stable. On 1:1 sitter. Less confuse. Plan: No distress, feels okay Heart rate stable/controlled Blood pressure stable On 1:1 sitter for confusion Continue current treatment Continue current medications On ASA 81 mg daily,Tenormin 25 mg BID,Lipitor 10 mg daily, Digoxin 0.25 mg daily,Lasix 40 mg daily,Nicoderm patch daily, Prednisone 30 mg daily, Verapamil 40 mg TID,Coumadin 2 mg daily Discharge planning Smoking cessation Psych on consult Will follow up Plan and treatment discussed with Dr. Mendez
--- NOTE | 2018-08-23 10:01 | CP.PCM.PCO ---
Additional Comments - Additional Comments Additional Comments: Pt seen at bedside states that she wants to go home and she feels better. Denies chest pain or shortness of breath. +wheezing on kayli lungs. Pt states that she does not know why she is here in the hospital. Her INR is 1.93 today, Cardio increased coumadin w/ repeat PT/INR in AM. Physical therapy recommends home/hws. Will continue to follow.
[2018-08-23] MEDS: Digoxin 250 mcg (0.25 mg) Tab PO SCH (14:23)
[2018-08-23 14:25] VITALS: PULSE 98
[2018-08-24] MEDS: Albuterol-Ipratrop 3 mg / 0.5 (3 ml) UD IH SCH ×3 (03:10→11:21)
[2018-08-24] MEDS: Budesonide 0.5 mg/2 ml Inhal Susp UD IH SCH (07:15)
[2018-08-24 07:24] LABS: BASO # 0.01 K/mm3 (0.0-2.0); BASO % 0.1 % (0.0-3.0); EOS # 0.1 (0.0-0.7); EOS % 0.5 % (1.5-5.0); HEMOGLOBIN 13.6 g/dL (12.0-16.0); LYMPH # 1.9 (1.2-3.4); LYMPH % 14.8 % (22.0-35.0); MEAN CELL VOLUME 87.7 fl (80.0-105.0); MEAN CORPUSCULAR HEMOGLOBIN 27.9 pg (25.0-35.0); MEAN CORPUSCULAR HGB CONC 31.8 g/dl (31.0-37.0); MEAN PLATELET VOLUME 9.6 fl (7.0-11.0); MONO # 1.4 (0.1-0.6); MONO % 10.6 % (1.0-6.0); RBC 4.88 10^6/uL (3.5-6.1); RED CELL DISTRIBUTION WIDTH 13.6 % (11.5-14.5)
[2018-08-24 07:44] LABS: INR 2.1; PROTHROMBIN TIME 23.7 SECONDS (9.4-12.5)
[2018-08-24] MEDS: Insulin Reg-LOW-Coverage SC SCH ×2 (08:00→11:22)
[2018-08-24 08:06] LABS: ALB/GLOB RATIO 1.2 (1.1-1.8); ALBUMIN 3.3 g/dL (3.0-4.8); ALT/SGPT 119 U/L (7-56); AST/SGOT 57 U/L (14-36); BLOOD UREA NITROGEN 19 mg/dL (7-21); GFR NON-AFRICAN AMERICAN > 60
[2018-08-24 09:09] VITALS: BP 127/73
[2018-08-24 11:12] VITALS: PULSE 89; RESP 18; TEMP 98.1
--- NOTE | 2018-08-24 13:46 | CP.PCM.DIS ---
<Valentino Singh - Last Filed: 08/24/18 13:43> Provider - Provider Date of Admission: 08/14/18 09:23 Attending physician: Fabio Walters MD Consults: 08/14/18 09:11 Physician Consult Routine Comment: Consulting Provider: Mak Mendez Consulting Physician: Mak Mendez Reason for Consult: AFib 08/14/18 18:08 Nursing Referral for Palliative Care Routine Comment: pratima score Physician Instructions: Reason For Exam: assess Social Work Referral Routine Comment: d/c plan Physician Instructions: Reason For Exam: assess 08/14/18 18:34 Respiratory Therapy Referral Routine Comment: light smoker Physician Instructions: Reason For Exam: assess 08/16/18 09:23 Psychiatry Consult Routine Comment: Consulting Provider: Shaila Mattson Consulting Physician: Shaila Mattson Reason for Consult: uncontrolled anxiety; needs anxiolytic that won't cause resp depress 08/20/18 10:14 Gastroenterology Consult Routine Comment: Consulting Provider: Jose D Doty V Consulting Physician: Jose D Doty V Reason for Consult: mildly dilated cbd 08/20/18 14:17 Psychiatry Consult Routine Comment: Consulting Provider: Shaila Mattson Consulting Physician: Shaila Mattson Reason for Consult: competency to sign out AMA 08/21/18 12:09 Prefabricated Houses Trimmer [Case Management Referral] Routine Comment: Physician Instructions: Reason For Exam: Reason for Referral: Discharge Planning Time Spent in preparation of Discharge (in minutes): 35 Hospital Course - Lab Results Lab Results: Micro Results 08/23/18 06:00 Naris MRSA Culture (Admit) - Final MRSA NOT DETECTED 08/14/18 07:00 Blood-Venous Blood Culture - Final NO GROWTH AFTER 5 DAYS 08/14/18 07:00 Blood-Venous Gram Stain - Final TEST NOT PERFORMED 08/14/18 06:40 Blood-Venous Blood Culture - Final NO GROWTH AFTER 5 DAYS 08/14/18 06:40 Blood-Venous Gram Stain - Final TEST NOT PERFORMED 08/15/18 08:00 Naris MRSA Culture (Admit) - Final Most Recent Lab Values WBC 13.0 10^3/uL (4.5-11.0) H 08/24/18 07:00 RBC 4.88 10^6/uL (3.5-6.1) 08/24/18 07:00 Hgb 13.6 g/dL (12.0-16.0) 08/24/18 07:00 Hct 42.8 % (36.0-48.0) 08/24/18 07:00 MCV 87.7 fl (80.0-105.0) 08/24/18 07:00 MCH 27.9 pg (25.0-35.0) 08/24/18 07:00 MCHC 31.8 g/dl (31.0-37.0) 08/24/18 07:00 RDW 13.6 % (11.5-14.5) 08/24/18 07:00 Plt Count 345 10^3/uL (120.0-450.0) 08/24/18 07:00 MPV 9.6 fl (7.0-11.0) 08/24/18 07:00 Neut % (Auto) 74.0 % (50.0-68.0) H 08/24/18 07:00 Lymph % (Auto) 14.8 % (22.0-35.0) L 08/24/18 07:00 [place] % (Auto) 10.6 % (1.0-6.0) H 08/24/18 07:00 Eos % (Auto) 0.5 % (1.5-5.0) L 08/24/18 07:00 Baso % (Auto) 0.1 % (0.0-3.0) 08/24/18 07:00 Lymph # (Auto) 1.9 (1.2-3.4) 08/24/18 07:00 [place] # (Auto) 1.4 (0.1-0.6) H 08/24/18 07:00 Eos # (Auto) 0.1 (0.0-0.7) 08/24/18 07:00 Baso # (Auto) 0.01 K/mm3 (0.0-2.0) 08/24/18 07:00 Absolute Neuts (auto) 9.64 (1.4-6.5) H 08/24/18 07:00 PT 23.7 SECONDS (9.4-12.5) H 08/24/18 07:00 INR 2.10 08/24/18 07:00 APTT 43.0 Seconds (26.9-38.3) H 08/14/18 06:55 pCO2 42 mm/Hg (35-45) 08/17/18 05:00 pO2 128.0 mm/Hg (80-100) H 08/17/18 05:00 HCO3 31.3 mmol/L (21-28) H 08/17/18 05:00 ABG pH 7.48 (7.35-7.45) H 08/17/18 05:00 ABG Total CO2 32.6 mmol.L (22-28) H 08/17/18 05:00 ABG O2 Saturation 99.0 % (95-98) H 08/17/18 05:00 ABG O2 Content 17.1 ML/dl (15-23) 08/16/18 06:00 ABG Base Excess 7.0 mmol/L (-2.0-3.0) H 08/17/18 05:00 ABG Hemoglobin 12.4 g/dL (11.7-17.4) 08/16/18 06:00 ABG Carboxyhemoglobin 1.4 % (0.5-1.5) 08/16/18 06:00 POC ABG HHb (Measured) 0.7 % (0-5) 08/16/18 06:00 ABG Methemoglobin 1.0 % (0.0-3.0) 08/16/18 06:00 ABG O2 Capacity 17.2 mL/dl (16-24) 08/16/18 06:00 ABG Potassium 3.8 mmol/L (3.6-5.2) 08/17/18 05:00 Hgb O2 Saturation 96.9 % (95.0-98.0) 08/16/18 06:00 Sodium 139.0 mmol/L (132-148) 08/17/18 05:00 Chloride 107.0 mmol/L (98-107) 08/17/18 05:00 Glucose 175 mg/dl (65-105) H 08/17/18 05:00 Lactate 1.3 mmol/L (0.7-2.1) 08/17/18 05:00 FiO2 35.0 % 08/17/18 05:00 Crit Value Called To Omer rn 08/15/18 06:35 Crit Value Called By [facility] 08/15/18 06:35 Blood Gas Notified Time 643 08/15/18 06:35 Sodium 138 mmol/L (132-148) 08/24/18 07:00 Potassium 3.8 mmol/L (3.6-5.0) 08/24/18 07:00 Chloride 96 mmol/L (98-107) L 08/24/18 07:00 Carbon Dioxide 36 mmol/L (21-33) H 08/24/18 07:00 Anion Gap 10 (10-20) 08/24/18 07:00 BUN 19 mg/dL (7-21) 08/24/18 07:00 Creatinine 0.5 mg/dl (0.7-1.2) L 08/24/18 07:00 Est GFR ( Amer) > 60 08/24/18 07:00 Est GFR (Non-Af Amer) > 60 08/24/18 07:00 POC Glucose (mg/dL) 127 mg/dL (65-110) H 08/24/18 11:17 Random Glucose 74 mg/dL (70-110) 08/24/18 07:00 Calcium 9.0 mg/dL (8.4-10.5) 08/24/18 07:00 Phosphorus 3.8 mg/dL (2.5-4.5) 08/21/18 05:05 Magnesium 2.0 mg/dL (1.7-2.2) 08/21/18 05:05 Total Bilirubin 0.4 mg/dL (0.2-1.3) 08/24/18 07:00 AST 57 U/L (14-36) H 08/24/18 07:00 ALT 119 U/L (7-56) H 08/24/18 07:00 Alkaline Phosphatase 52 U/L (38-126) 08/24/18 07:00 Lactate Dehydrogenase 542 U/L (333-699) 08/14/18 06:55 Total Creatine Kinase 47 U/L (35-230) 08/14/18 06:55 Troponin I 0.14 ng/mL H* 08/15/18 21:40 NT-Pro-B Natriuret Pep 1930 pg/mL (0-450) H 08/14/18 06:55 Total Protein 6.1 g/dL (5.8-8.3) 08/24/18 07:00 Albumin 3.3 g/dL (3.0-4.8) 08/24/18 07:00 Globulin 2.8 gm/dL 08/24/18 07:00 Albumin/Globulin Ratio 1.2 (1.1-1.8) 08/24/18 07:00 Arterial Blood Potassium 3.8 mmol/L (3.6-5.2) 08/17/18 05:00 Digoxin 1.5 ng/mL (0.8-2.0) 08/20/18 05:20 Urine Opiates Screen Negative (NEGATIVE) 08/14/18 09:41 Urine Methadone Screen Negative (NEGATIVE) 08/14/18 09:41 Ur Barbiturates Screen Negative (NEGATIVE) 08/14/18 09:41 Ur Phencyclidine Scrn Negative (NEGATIVE) 08/14/18 09:41 Ur Amphetamines Screen Negative (NEGATIVE) 08/14/18 09:41 U Benzodiazepines Scrn Positive (NEGATIVE) H 08/14/18 09:41 U Oth Cocaine Metabols Negative (NEGATIVE) 08/14/18 09:41 U Cannabinoids Screen Negative (NEGATIVE) 08/14/18 09:41 Alcohol, Quantitative < 10 mg/dL (0-10) 08/14/18 06:55 HOSSEIN Screen Negative (Negative) 08/20/18 14:00 Anti-Mitochondrial Ab Negative (Negative) 08/20/18 14:00 Smooth Muscle Ab Titer TEST NOT PERFORMED 08/20/18 14:00 Anti-Smooth Muscle Ab Negative (Negative) 08/20/18 14:00 Hepatitis A IgM Ab Negative (NEGATIVE) 08/16/18 16:00 Hep Bs Antigen Negative (NEGATIVE) 08/16/18 16:00 Hep B Core IgM Ab Negative (NEGATIVE) 08/16/18 16:00 Hepatitis C Antibody Negative (NEGATIVE) 08/16/18 16:00 - Hospital Course Hospital Course: 73 year old female with past medical history of paroxysmal atrial fibrillation, non-ischemic cardiomyopathy, CAD, poorly controlled COPD not on home O2 therapy and poor medication compliance, as well as tobacco abuse who presented to [facility] ED on 08/14/2018 for acute worsening of her COPD. Patient received IV antibiotics, steroids, and breathing treatments with stabilization of her condition. She was also noted to have atrial fibrillation with elevated rate consistent with rapid Afib with RVR. She was placed on cardizem drip and monitored. Patient was transferred to telemetry for further treatment and evaluation. While on telemetry floor patient was noted to have continued bouts of increased respiratory effort secondary to her disease process as well as her issues with anxiety. Patient was placed on biPAP with moderate improvement in her condition. Overnight patient was noted to have increased agitation and was given ativan for her symptoms. Patient was noted to become more somnolent and increase concern for her respiratory status. There was concern for maintenance of her airway. Patient was intubated and sedated by house doctor and transferred to the ICU. Patient was placed on precedex gtt and mechanically ventilated. Patient was extubated and continued on precedex drip until able to be weaned off. Patient was transferred to medical surgical floor where she was monitored for acute delirium secondary to ICU delirium vs. prednisone delirium vs. medication delirium. Psychiatry was consulted on the case and initially recommended further observation in the setting of lucid periods. Patient was monitored for at least 24 hours without evidence of confusion and agitation. Conversation with psychiatry team indicated patient was stable and with capacity for ability to be discharged home as patient requested. Patient was instructed on risks and benefits of avoiding outpatient rehab, she was in understanding and in an agreement. Discharge planning including medication reconciliation, outpatient follow up, tobacco cessation and signs and symptoms for return to nearest ED were conducted in detail. Patient was in understanding and agreement. Questions and concerns were addressed to verbal satisfaction. This is a brief summary of hospital stay please see chart for full details. Discharge Exam - Head Exam Head Exam: NORMAL INSPECTION, NORMOCEPHALIC - Eye Exam Eye Exam: EOMI, PERRL - ENT Exam ENT Exam: Mucous Membranes Moist - Respiratory Exam Respiratory Exam: Wheezes (minimal left side), NORMAL BREATHING PATTERN, UNREMARKABLE. absent: Rales, Rhonchi - Cardiovascular Exam Cardiovascular Exam: Irregular Rhythm, +S1, +S2 - Extremities Exam Extremities exam: normal inspection, pedal edema - Neurological Exam Neurological exam: Alert, CN II-XII Intact, Normal Gait, Oriented x3, Reflexes Normal - Psychiatric Exam Psychiatric exam: Normal Affect, Normal Mood - Skin Skin Exam: Dry, Warm Discharge Plan - Discharge Medications Prescriptions: Albuterol/Ipratropium [Duoneb 3 mg/0.5 mg (3 ml) UD] 180 ml IH Q6 PRN #1 neb PRN Reason: Shortness Of Breath Digoxin 0.125 mg PO DAILY #30 tab Fluticasone/Salmeterol 250/50 [Advair Diskus 250/50] 1 puff IH Q12 #1 puff Prednisone [Damian] See Taper PO DAILY #9 tablet. Warfarin [Coumadin] 3 mg PO DAILY #14 tab - Follow Up Plan Condition: GUARDED Disposition: HOME/ ROUTINE Instructions: Oxygen Therapy, Adult, Quitting Smoking for Older Adults, Atrial Fibrillation (DC), Heart Failure, Adult (DC), MRSA (DC), Anxiety, Adult (DC) Additional Instructions: Follow up with Dr. Casas within 3-5 days upon discharge Follow up with Dr. Mendez within 7-10 days upon discharge Have your INR checked within 3-5 days Take medications as prescribed to you - Warfarin 3mg Daily - Digoxin 0.25mg Daily - Advair Diskus 1 puff Daily - Duonebs 1 nebulizer treatment Q6H prn Please avoid smoking and continue to take medications If you experience chest pain, shortness of breath, unrelenting fever return to nearest emergency department Referrals: Andrea Casas MD [Family Provider] - <Mak Sparrow - Last Filed: 08/24/18 14:00> Provider - Provider Date of Admission: 08/14/18 09:23 Attending physician: Fabio Walters MD Consults: 08/14/18 09:11 Physician Consult Routine Comment: Consulting Provider: Mak Mendez Consulting Physician: Mak Mendez Reason for Consult: AFib 08/14/18 18:08 Nursing Referral for Palliative Care Routine Comment: pratima score Physician Instructions: Reason For Exam: assess Social Work Referral Routine Comment: d/c plan Physician Instructions: Reason For Exam: assess 08/14/18 18:34 Respiratory Therapy Referral Routine Comment: light smoker Physician Instructions: Reason For Exam: assess 08/16/18 09:23 Psychiatry Consult Routine Comment: Consulting Provider: Shaila Mattson Consulting Physician: Shaila Mattson Reason for Consult: uncontrolled anxiety; needs anxiolytic that won't cause resp depress 08/20/18 10:14 Gastroenterology Consult Routine Comment: Consulting Provider: Jose D Doty V Consulting Physician: Lalitha,Kovil V Reason for Consult: mildly dilated cbd 08/20/18 14:17 Psychiatry Consult Routine Comment: Consulting Provider: Shaila Mattson Consulting Physician: Shaila Mattson Reason for Consult: competency to sign out AMA 08/21/18 12:09 Prefabricated Houses Trimmer [Case Management Referral] Routine Comment: Physician Instructions: Reason For Exam: Reason for Referral: Discharge Planning Hospital Course - Lab Results Lab Results: Micro Results 08/23/18 06:00 Naris MRSA Culture (Admit) - Final MRSA NOT DETECTED 08/14/18 07:00 Blood-Venous Blood Culture - Final NO GROWTH AFTER 5 DAYS 08/14/18 07:00 Blood-Venous Gram Stain - Final TEST NOT PERFORMED 08/14/18 06:40 Blood-Venous Blood Culture - Final NO GROWTH AFTER 5 DAYS 08/14/18 06:40 Blood-Venous Gram Stain - Final TEST NOT PERFORMED 08/15/18 08:00 Naris MRSA Culture (Admit) - Final Most Recent Lab Values WBC 13.0 10^3/uL (4.5-11.0) H 08/24/18 07:00 RBC 4.88 10^6/uL (3.5-6.1) 08/24/18 07:00 Hgb 13.6 g/dL (12.0-16.0) 08/24/18 07:00 Hct 42.8 % (36.0-48.0) 08/24/18 07:00 MCV 87.7 fl (80.0-105.0) 08/24/18 07:00 MCH 27.9 pg (25.0-35.0) 08/24/18 07:00 MCHC 31.8 g/dl (31.0-37.0) 08/24/18 07:00 RDW 13.6 % (11.5-14.5) 08/24/18 07:00 Plt Count 345 10^3/uL (120.0-450.0) 08/24/18 07:00 MPV 9.6 fl (7.0-11.0) 08/24/18 07:00 Neut % (Auto) 74.0 % (50.0-68.0) H 08/24/18 07:00 Lymph % (Auto) 14.8 % (22.0-35.0) L 08/24/18 07:00 [place] % (Auto) 10.6 % (1.0-6.0) H 08/24/18 07:00 Eos % (Auto) 0.5 % (1.5-5.0) L 08/24/18 07:00 Baso % (Auto) 0.1 % (0.0-3.0) 08/24/18 07:00 Lymph # (Auto) 1.9 (1.2-3.4) 08/24/18 07:00 [place] # (Auto) 1.4 (0.1-0.6) H 08/24/18 07:00 Eos # (Auto) 0.1 (0.0-0.7) 08/24/18 07:00 Baso # (Auto) 0.01 K/mm3 (0.0-2.0) 08/24/18 07:00 Absolute Neuts (auto) 9.64 (1.4-6.5) H 08/24/18 07:00 PT 23.7 SECONDS (9.4-12.5) H 08/24/18 07:00 INR 2.10 08/24/18 07:00 APTT 43.0 Seconds (26.9-38.3) H 08/14/18 06:55 pCO2 42 mm/Hg (35-45) 08/17/18 05:00 pO2 128.0 mm/Hg (80-100) H 08/17/18 05:00 HCO3 31.3 mmol/L (21-28) H 08/17/18 05:00 ABG pH 7.48 (7.35-7.45) H 08/17/18 05:00 ABG Total CO2 32.6 mmol.L (22-28) H 08/17/18 05:00 ABG O2 Saturation 99.0 % (95-98) H 08/17/18 05:00 ABG O2 Content 17.1 ML/dl (15-23) 08/16/18 06:00 ABG Base Excess 7.0 mmol/L (-2.0-3.0) H 08/17/18 05:00 ABG Hemoglobin 12.4 g/dL (11.7-17.4) 08/16/18 06:00 ABG Carboxyhemoglobin 1.4 % (0.5-1.5) 08/16/18 06:00 POC ABG HHb (Measured) 0.7 % (0-5) 08/16/18 06:00 ABG Methemoglobin 1.0 % (0.0-3.0) 08/16/18 06:00 ABG O2 Capacity 17.2 mL/dl (16-24) 08/16/18 06:00 ABG Potassium 3.8 mmol/L (3.6-5.2) 08/17/18 05:00 Hgb O2 Saturation 96.9 % (95.0-98.0) 08/16/18 06:00 Sodium 139.0 mmol/L (132-148) 08/17/18 05:00 Chloride 107.0 mmol/L (98-107) 08/17/18 05:00 Glucose 175 mg/dl (65-105) H 08/17/18 05:00 Lactate 1.3 mmol/L (0.7-2.1) 08/17/18 05:00 FiO2 35.0 % 08/17/18 05:00 Crit Value Called To Omer dent 08/15/18 06:35 Crit Value Called By Shola 08/15/18 06:35 Blood Gas Notified Time 643 08/15/18 06:35 Sodium 138 mmol/L (132-148) 08/24/18 07:00 Potassium 3.8 mmol/L (3.6-5.0) 08/24/18 07:00 Chloride 96 mmol/L (98-107) L 08/24/18 07:00 Carbon Dioxide 36 mmol/L (21-33) H 08/24/18 07:00 Anion Gap 10 (10-20) 08/24/18 07:00 BUN 19 mg/dL (7-21) 08/24/18 07:00 Creatinine 0.5 mg/dl (0.7-1.2) L 08/24/18 07:00 Est GFR ( Amer) > 60 08/24/18 07:00 Est GFR (Non-Af Amer) > 60 08/24/18 07:00 POC Glucose (mg/dL) 127 mg/dL (65-110) H 08/24/18 11:17 Random Glucose 74 mg/dL (70-110) 08/24/18 07:00 Calcium 9.0 mg/dL (8.4-10.5) 08/24/18 07:00 Phosphorus 3.8 mg/dL (2.5-4.5) 08/21/18 05:05 Magnesium 2.0 mg/dL (1.7-2.2) 08/21/18 05:05 Total Bilirubin 0.4 mg/dL (0.2-1.3) 08/24/18 07:00 AST 57 U/L (14-36) H 08/24/18 07:00 ALT 119 U/L (7-56) H 08/24/18 07:00 Alkaline Phosphatase 52 U/L (38-126) 08/24/18 07:00 Lactate Dehydrogenase 542 U/L (333-699) 08/14/18 06:55 Total Creatine Kinase 47 U/L (35-230) 08/14/18 06:55 Troponin I 0.14 ng/mL H* 08/15/18 21:40 NT-Pro-B Natriuret Pep 1930 pg/mL (0-450) H 08/14/18 06:55 Total Protein 6.1 g/dL (5.8-8.3) 08/24/18 07:00 Albumin 3.3 g/dL (3.0-4.8) 08/24/18 07:00 Globulin 2.8 gm/dL 08/24/18 07:00 Albumin/Globulin Ratio 1.2 (1.1-1.8) 08/24/18 07:00 Arterial Blood Potassium 3.8 mmol/L (3.6-5.2) 08/17/18 05:00 Digoxin 1.5 ng/mL (0.8-2.0) 08/20/18 05:20 Urine Opiates Screen Negative (NEGATIVE) 08/14/18 09:41 Urine Methadone Screen Negative (NEGATIVE) 08/14/18 09:41 Ur Barbiturates Screen Negative (NEGATIVE) 08/14/18 09:41 Ur Phencyclidine Scrn Negative (NEGATIVE) 08/14/18 09:41 Ur Amphetamines Screen Negative (NEGATIVE) 08/14/18 09:41 U Benzodiazepines Scrn Positive (NEGATIVE) H 08/14/18 09:41 U Oth Cocaine Metabols Negative (NEGATIVE) 08/14/18 09:41 U Cannabinoids Screen Negative (NEGATIVE) 08/14/18 09:41 Alcohol, Quantitative < 10 mg/dL (0-10) 08/14/18 06:55 HOSSEIN Screen Negative (Negative) 08/20/18 14:00 Anti-Mitochondrial Ab Negative (Negative) 08/20/18 14:00 Smooth Muscle Ab Titer TEST NOT PERFORMED 08/20/18 14:00 Anti-Smooth Muscle Ab Negative (Negative) 08/20/18 14:00 Hepatitis A IgM Ab Negative (NEGATIVE) 08/16/18 16:00 Hep Bs Antigen Negative (NEGATIVE) 08/16/18 16:00 Hep B Core IgM Ab Negative (NEGATIVE) 08/16/18 16:00 Hepatitis C Antibody Negative (NEGATIVE) 08/16/18 16:00 Attending/Attestation - Attestation I have personally seen and examined this patient.: Yes I have fully participated in the care of the patient.: Yes I have reviewed all pertinent clinical information, including history, physical exam and plan: Yes Notes (Text): 08/24/18 13:50 Medical record note made by the resident after discussion with my direction and input after the patient was personally seen and examined by me. I have reviewed the chart and agree that the record accurately reflects by personal performance of the history, physical exam, data review, and medical decision-making, in the course for the patient. I have also personally directed the plan of care. 72 year old female with past medical history of atrial fibrillation on coumadin, , CAD, COPD and active tobacco use who presented with complaint of shortness of breath. She was admitted for COPD exacerbation and AFib with RVR and started on iv steroids and cardizem drip in addition to xopenex and antibiotics. Hospital course was complicated with episode of respiratory distress found to have acute hypercapneic respiratory failure requiring intubation. She was transferred to ICU. She was extubated aafter COPD was optimized.. She was restarted on precedex drip for agitation. Her symtoms improved and Precedex drip was discontinued and she was down grade from ICU. She was later on found to have intermittent confusion and wanted to leave AMA.She was evaluated by Psychiatry and was found to be in delirium . He confusion has resolved.She is alert,awake and oriented. She is on tapering dose of prednisone. She was evaluated for home oxygen but at this time she does not meet the home oxygen criteria. Patient heart rate is controlled and INR is therapeautic at the time of discharge She does not want to stay in the hospital. The issue of chronic smoking and compliance with medication was discussed in detail with her. .LFT are improved. Hepatitis panel was negative. Abdominal ultrasound showed prominent CBD. GI evaluation is appreciated.Patient wound need out patient MRCP for further evaluation.At this time patient is not cooperative for any inpatient work up. She will follow up with PCP and GI. Prognosis is guarded due to non compliance and ongoing smoking.
--- NOTE | 2018-08-26 08:22 | CON ---
DATE: 08/24/2018 HISTORY OF PRESENT ILLNESS: The patient is a 73-year-old female who has been seen by Psychiatry for delirium which has been slowly improving. The patient also has a history of anxiety and depression, likely related to her medical issues. Dr. Mattson the patient 2 days ago and at bedside this morning. The patient is alert and oriented to month, year, circumstances, and date. The patient reports that today is the first day and this teletypewriter operator confirms that it is the first day of August and she is 73. The patient denies any issues related to passing out bit better. She reports that she is sleeping well. Denies any issues with medications, denies any side effects. The patient is fairly coherent and delusions were not elicited. The patient did express desire to go home yesterday and reported that " held against the wall." There were no auditory or visual hallucinations overnight. Her insight and judgment does not seems to be significantly improved. that the patient . The patient has a history of anxiety and depression, the anxiety and depression at this time by continuing observation. MEDICATIONS: Include daily. . The patient appears to be in no acute distress circumstances, and the medical team can determine whether the patient continues to be delirious and if this is from her medical issues. Nonetheless, Psychiatry does not see any reason for the patient's continued psychiatric followup. If there are any new issues, please re-consult p.r.n. We will sign off at this time. There are no primary psychiatric issues. Medicine should follow up with the patient's delirium. Veronica Wharton MD
== END 2018-08-24 14:12 | disposition home health service (06) | DRG 208 ==
LOC: ED 06:30 → ERH 09:23 → 2RNO 10:40 → CCU 08-15 07:50 → 5RNO 08-21 17:28
PROVIDERS: ADMIT Internal Medicine; ATTEND Internal Medicine
PROC: 0BH17EZ Insertion of Endotracheal Airway into Trachea, Via Natural or Artificial Opening (ICD-10-PCS; principal; 2018-08-15)
PROC: 5A1945Z Respiratory Ventilation, 24-96 Consecutive Hours (ICD-10-PCS; 2018-08-15)
DX: J44.1 Chronic obstructive pulmonary disease with (acute) exacerbation (principal); I21.4 Non-ST elevation (NSTEMI) myocardial infarction; J96.02 Acute respiratory failure with hypercapnia; I50.32 Chronic diastolic (congestive) heart failure; E87.2 Acidosis; I42.9 Cardiomyopathy, unspecified; I48.0 Paroxysmal atrial fibrillation; I25.10 Atherosclerotic heart disease of native coronary artery without angina pectoris; I11.0 Hypertensive heart disease with heart failure; F41.9 Anxiety disorder, unspecified; Z79.01 Long term (current) use of anticoagulants; R00.2 Palpitations; I48.2 Chronic atrial fibrillation; F17.200 Nicotine dependence, unspecified, uncomplicated; Z91.14 Patient's other noncompliance with medication regimen; E87.5 Hyperkalemia; R44.1 Visual hallucinations; D72.829 Elevated white blood cell count, unspecified; T38.0X5A Adverse effect of glucocorticoids and synthetic analogues, initial encounter; K21.9 Gastro-esophageal reflux disease without esophagitis; Z78.1 Physical restraint status; Z79.899 Other long term (current) drug therapy; Z91.19 Patient's noncompliance with other medical treatment and regimen; Z95.5 Presence of coronary angioplasty implant and graft; Z99.81 Dependence on supplemental oxygen